=== PATIENT | female | born 1960 | race Caucasian/White ===

== ENCOUNTER 2023-05-30 20:23 | Outpatient (REF) | payer MEDICARE, SELFPAY ==
[2023-06-02 18:08] LABS: Age Gdln ACOG Testing Note (.); HPV Aptima Negative (Negative); IGP, Aptima HPV, rfx 16/18,45 Note (.)
== END 2023-05-30 20:24 | disposition home or self-care (01) ==
LOC: LAB 20:23
PROVIDERS: Visit Provider Obstetrics & Gynecology
DX: Z12.4 Encounter for screening for malignant neoplasm of cervix (principal)
CPT/HCPCS: 87070; G0145

== ENCOUNTER 2023-06-29 07:29 | Day surgery (SDC) | payer MEDICARE, SELFPAY ==
--- NOTE | 2023-06-29 07:40 | US_ITS ---
[address] [address] Patient Name: MICKEY RODRIGUEZ MRN: [id number] date: 1960 Sex: F Assigned Patient Location: US Current Patient Location: US Accession/Order Number: [id number] Exam Date: 06/29/2023 08:00 Report Date: 06/29/2023 08:57 At the request of: EBONY BRAUN Procedure: US breast vac bx w/ clip LT EXAM: US breast vac bx w/ clip LT HISTORY: Left Breast Complex Cyst COMPARISON: Ultrasound breast left 04/04/2023 TECHNIQUE: After obtaining informed consent, ultrasound-guided biopsy was performed in the usual sterile manner. The location of the biopsy was then marked as indicated below. FINDINGS: Specimen #, Location: 3 core samples; 6:00 5 x 5 x 4 mm complex cyst versus mass. Biopsy Needle: 13 gauge vacuum core biopsy needle. Marker(s): A single metallic marker was placed in the appropriate targeted location. Medication: Buffered 1% Lidocaine with epinephrine administered locally. Complications: None. Pathology: Pending. US/US breast vac bx w/ clip LT IMPRESSION: 1. Uneventful ultrasound-guided breast biopsy. 2. Pathology results are pending. An addendum to this report will be provided after pathology results are available. Electronically authenticated by: MARCIANO ENG Date: 06/29/2023 08:57
--- NOTE | 2023-06-29 07:41 | MM_ITS ---
Patient: MICKEY RODRIGUEZ Exam Date: 06/29/2023 : 1960 Gender:F Ordering : DR Roshan Chaney . Admission #: [id number] Family : Non-Staff Physician Order #: [id number] CLICK HERE TO VIEW EXAM This report includes an Addendum and supersedes previous reports for this exam. RADIOLOGY REPORT PROCEDURE: MM POST BIOPSY LT COMPARISON: MM TOMOSYNTHESIS DIAGNOSTIC BI, 04/04/2023. INDICATIONS: Complex Left Breast Cyst BREAST COMPOSITION: Scattered areas fibroglandular density. FINDINGS: BIOPSY MARKER: A metallic marker has been placed in the targeted location at the 6 o'clock position of the left breast. BREAST FINDINGS: Expected post biopsy findings. RECOMMENDATIONS: Dictated by: Gamal Landeros M.D. on 06/29/2023 at 13:44 Approved by: Gamal Landeros M.D. on 06/29/2023 at 13:46 ADDENDUM: FINDINGS: NO ASSESSMENT RECOMMENDATIONS: SHORT TERM FOLLOW-UP ULTRASOUND LEFT BREAST IN 6 MONTHS. Dictated by: Gamal Landeros M.D. on 07/12/2023 at 10:25 Approved by: Gamal Landeros M.D. on 07/12/2023 at 10:26
[2023-06-29 07:45] VITALS: BP 166/124; PULSE 89; O2SAT 94
[2023-06-29] MEDS: LIDOCAINE HCL/EPINEPHRINE 10 ML, SODIUM BICARBONATE 1 MEQ INJ (08:25)
[2023-06-29] MEDS: LIDOCAINE HCL 10 ML, SODIUM BICARBONATE 1 MEQ INJ (08:25)
== END 2023-06-29 09:10 | disposition home or self-care (01) ==
LOC: US 07:31
PROVIDERS: Radiology Diagnostic Radiology; Visit Provider Surgery
DX: N60.02 Solitary cyst of left breast (principal); N64.52 Nipple discharge
CPT/HCPCS: 19083; 77065; 88305

== ENCOUNTER 2023-09-05 11:00 | Outpatient (OUT) | payer MEDICARE, SELFPAY ==
--- OUTSIDE RECORDS SUMMARY | 2023-09-05 11:08 | XMS_ITS | CCD ---
Author Name Unknown Address [address] [place] [address] Organization [facility] Care Team Providers Care Senior Wind Turbine Technician Name Role Phone DR ESTELA KRISHNAN Attending Unavailable EULOGIO, DR ESTELA Jonas Consulting Unavailable EULOGIO, DR ESTELA Jonas Primary Care Unavailable EULOGIO, DR ESTELA Jonas Admitting Unavailable Michael Holley Primary Care Physician [phone] ESTELA KRISHNAN Attending Unavailable Michael Holley Attending Unavailable Michael Holley Attending Unavailable Michael Holley Attending Unavailable Michael Holley Attending Unavailable Michael Holley Attending Unavailable Michael Holley Admitting Unavailable Michael Holley Attending Unavailable Michael Holley Referring Unavailable Michael Holley Attending Unavailable Michael Holley Admitting Unavailable Roshan BRAUN Attending Unavailable Roshan BRAUN Attending Unavailable Roshan BRAUN Attending Unavailable Michael Holley Attending Unavailable Michael Holley Attending Unavailable Allergies Allergy Classification Reported Allergen(s) Allergy Type Date of Onset Reaction(s) Facility (1 source) Hydrocortisone Drug Allergy 01-02-20 17 [facility] (1 source) methylPREDNISolone Drug Allergy 12-26-19 17 [facility] (1 source) prednisoLONE Drug Allergy 01-02-20 17 [facility] (1 source) predniSONE Drug Allergy 01-02-20 17 [facility] (1 source) Decon-A Drug allergy (disorder) 01-02-20 17 [facility] (1 source) Decon-G Drug allergy (disorder) 01-02-20 17 [facility] (4 sources) metaxalone; Translations: [metaxalone] Drug Allergy Unknown (qualifier value) [facility] (4 sources) Pseudoephedrine; Translations: [pseudoephedrine] Drug Allergy Unknown (qualifier value) [facility] (3 sources) Corticosteroids; Translations: [corticosteroids] Propensity to adverse reactions to drug Anaphylaxis (disorder) General Surgery [facility] Medications Current Medications Medication Drug Class(es) Dates Sig (Normalized) Sig (Original) ALPRAZolam 0.25 mg oral tablet (3 sources) Benzodiazepine Start: 07-21-2023 take 1 tablet by mouth three times daily alprazolam 0.25 mg Tab 0.25 mg = 1 tab(s), Oral, TID, # 90 tab(s), Refills(s) 0, Pharmacy: [facility], 170.2, cm, 06/20/23 14:35:00 EDT, Height/Length Dosing, 71, kg, 06/20/23 14:35:00 EDT, Weight Dosing Start Date: 07/21/23 Status: Ordered Start: 04-20-2023 take 1 tablet by radha th three times daily alprazolam 0.25 mg Tab 0.25 mg = 1 tab(s), Oral, TID, # 90 tab(s), Refills(s) 2, Pharmacy: [facility], 170.2, cm, 04/20/23 15:23:00 EDT, Height/Length Dosing, 70.6, kg, 04/20/23 15:23:00 EDT, Weight Dosing Start Date: 04/20/23 Status: Ordered Start: 03-23-2023 take 1 tablet by radha th three times daily alprazolam 0.25 mg Tab 0.25 mg = 1 tab(s), Oral, TID, # 90 tab(s), Refills(s) 0, Pharmacy: [facility], 170.2, cm, 03/21/23 14:25:00 EDT, Height/Length Dosing, 71.5, kg, 03/21/23 14:25:00 EDT, Weight Dosing Start Date: 03/23/23 Status: Ordered cyclobenzaprine hydrochloride 10 mg oral tablet (3 sources) Muscle Relaxant Start: 07-24-2023 take 1 tablet by mouth at bedtime as needed for muscle spasms cyclobenzaprine 10 mg Tab 10 mg = 1 tab(s), Oral, Bedtime, PRN for spasm, # 90 tab(s), Refills(s) 3, Pharmacy: [facility], 170.2, cm, 07/24/23 13:54:00 EST, Height/Length Dosing, 70.1, kg, 07/24/23 13:54:00 EST, Weight Dosing Start Date: 07/24/23 Status: Ordered Start: 01-10-2023 take 1 tablet by radha th at bedtime as needed for muscle spasms cyclobenzaprine 10 mg Tab 10 mg = 1 tab(s), Oral, Bedtime, PRN for spasm, # 90 tab(s), Refills(s) 3, Pharmacy: [facility] Start Date: 01/10/23 Status: Ordered fluconazole 150 mg oral tablet (1 source) Azole Antifungal Start: 08-09-2023 take 1 tablet by mouth once Diflucan 150 mg Tab 150 mg = 1 tab(s), Oral, Once, # 1 tab(s), Refills(s) 0, Pharmacy: [facility], 170.2, cm, 08/09/23 15:59:00 EST, Height/Length Dosing, 69.3, kg, 08/09/23 15:59:00 EST, Weight Dosing Start Date: 08/09/23 Status: Ordered gabapentin 300 mg oral capsule (3 sources) Anti-epileptic Agent Start: 03-23-2023 take 1 capsule by mouth twice daily gabapentin 300 mg Cap 300 mg = 1 cap(s), Oral, BID, # 180 cap(s), Refills(s) 3, Pharmacy: [facility], 170.2, cm, 03/21/23 14:25:00 EDT, Height/Length Dosing, 71.5, kg, 03/21/23 14:25:00 EDT, Weight Dosing Start Date: 03/23/23 Status: Ordered Problems Active Problems Problem Classification Problem Date Documented Date Episodic/Chronic Anxiety disorders (3 sources) Generalized anxiety disorder 03-21-2023 Chronic Attention-deficit, conduct, and disruptive behavior disorders (3 sources) Attention deficit hyperactivity disorder 11-08-2022 Chronic Genitourinary symptoms and ill-defined conditions (1 source) Dysuria 08-09-2023 Episodic Nonmalignant breast conditions (8 sources) Breast lump; Translations: [Discharge from nipple] Onset: 08-09-2023 03-21-2023 Episodic Other acquired deformities (3 sources) Scoliosis deformity of spine 03-21-2023 Chronic Other connective tissue disease (3 sources) H/O: osteoarthritis 11-08-2022 Episodic Other hereditary and degenerative nervous system conditions (3 sources) Essential tremor 11-08-2022 Chronic Other nervous system disorders (5 sources) Complex regional pain syndrome of lower limb 11-08-2022 Chronic Other nervous system disorders (5 sources) Polyneuropathy 11-08-2022 Chronic Unclassified (2 sources) CONTACT W/AND (SUSP) EXPOS COVID-19; Translations: [CONTACT W/AND (SUSP) EXPOS COVID-19] Onset: 09-07-2021 Unclassified (2 sources) Long-term current use of drug therapy 11-08-2022 Unclassified (2 sources) Body mass index 20-24 - normal 06-20-2023 Viral infection (1 source) COVID-19; Translations: [COVID-19] Onset: 09-07-2021 Past or Other Problems Problem Classification Problem Date Documented Da te Episodic/Chronic Unclassified (1 source) CONTACT W/AND (SUSP) EXPOS COVID-19; Translations: [CONTACT W/AND (SUSP) EXPOS COVID-19] Onset: 08-31-2021 Results Test Name Value Interpretation Reference Range Facil ity C Urineon 08-11-2023 Bacteria identified Cx Nom (U) Microbiology PROCEDURE: Urine Culture [R1] SOURCE: U CleanCatch BODY SITE: COLLECTED DATE/TIME: 08/09/2023 16:21 EST RECEIVED DATE/TIME: 08/09/2023 19:37 EST START DATE/TIME: 08/09/2023 19:37 EST FREE TEXT SOURCE: Kishan PRATT, Michael Holley MD, Michael Barker FINAL REPORTS Final Report [] Verified Date/Time: 08/11/2023 09:17 EST 2,000 cfu/ml Mixed skin contaminants Performing Locations R1: This test was performed at: [facility], [address] [place] [address], [id number] , , [facility] Comment on above: Performed By: #### [id number] ####[facility] [address] [place] [address] Consent for Procedure/Surger yon 08-11-2023 Consent for Procedure/Surgery [id number] [facility] Ambulatory Visit Summaryon 1 10-10-2022 Ambulatory Visit Summary ADELINA MIR :1960 Visit Date:08/09/2023 Ambulatory Visit Instructions Your Diagnosis Dysuria Blood pressure elevated without history of HTN BMI 23.0-23.9, adult Former smoker Tests Performed Urnls Dip Stick Auto w/o Microscopy POC 89575 Your Care Team Attending Physician - Michael Holley MD Primary Care Physician - Michael Holley MD This Is Your Medications List fluconazole (Diflucan 150 mg Tab) Contact prescribing physician if questions or concerns alprazolam (alprazolam 0.25 mg Tab) cyclobenzaprine (cyclobenzaprine 10 mg Tab) gabapentin (gabapentin 300 mg Cap) Procedures Performed Biopsy of breast (06/27/2023), Arthroscopy of knee (06/04/1995), Appendectomy, Cholecystectomy, Extraction of wisdom tooth, Foot, Simple dental extraction, DEAN BSO - Total abdominal hysterectomy and bilateral salpingo-oophorecto my, Tonsillectomy and adenoidectomy. Discharge Vitals Temperature (Temporal Artery) 37.2 ?C Heart Rate (Peripheral) 76 Respiratory Rate 16 Blood Pressure 122/74 Height 170.2 cm Height 67 in Weight 69.3 kg Weight 152.46 lb BMI 23.92 What to do next Scheduled Follow-Up Appointments Monday 1:00 PM EST With: Michael Holley MD Where: [facility] [place] [facility] Ambulatory Visit Summary ADELINA MIR :1960 Visit Date:08/09/2023 Ambulatory Visit Instructions Your Care Team Attending Physician - APARNA PRATT, Roshan Horner Primary Care Physician - Michael Holley MD This Is Your Medications List Contact prescribing physician if questions or concerns alprazolam (alprazolam 0.25 mg Tab) cyclobenzaprine (cyclobenzaprine 10 mg Tab) gabapentin (gabapentin 300 mg Cap) Procedures Performed Biopsy of breast (06/27/2023), Arthroscopy of knee (06/04/1995), Appendectomy, Cholecystectomy, Extraction of wisdom tooth, Foot, Simple dental extraction, DEAN BSO - Total abdominal hysterectomy and bilateral salpingo-oophorecto my, Tonsillectomy and adenoidectomy. Discharge Vitals Heart Rate (Peripheral) 72 Respiratory Rate 16 Blood Pressure 120/76 Height 170.2 cm Height 67 in Weight 69.7 kg Weight 153.34 lb BMI 24.06 What to do next Scheduled Follow-Up Appointments Monday 4:00 PM EST With: Kishan PRATT, Michael Barker Where: [facility] [place] [id number] \.br\ Medications\.br\ What How Much When Instructions\.br\ Unchanged alprazolam (alprazolam 0.25 mg Tab) 1 Tablets By Mouth 3 times a day Contact prescribing physician if questions or concerns \.br\ Unchanged cyclobenzaprine (cyclobenzaprine 10 mg Tab) 1 Tablets By Mouth At bedtime as needed for for spasm Contact prescribing physician if questions or concerns \.br\ Unchanged gabapentin (gabapentin 300 mg Cap) 1 Capsules By Mouth 2 times a day Contact prescribing physician if questions or concerns \.br\ Medications and Immunizations Administered\.br\ Not Given\.br\ influenza virus vaccine, inactivated, Patient Refuses\.br\ Allergies\.br\ Entex (Unknown)\.br\ Skelaxin (Unknown)\.br\ corticosteroids (Anaphylaxis)\.br\ Problems\.br\ Ongoing - Any problem that you are currently receiving treatment for.\.br\ ADHD\.br\ Blood pressure elevated without history of HTN\.br\ BMI 24.0-24.9, adult\.br\ Complex regional pain syndrome of lower limb\.br\ Essential tremor\.br\ Generalized anxiety disorder\.br\ Hx of osteoarthritis\.br \ Idiopathic polyneuropathy\.br \ Mass of left breast\.br\ Nipple discharge\.br\ Scoliosis\.br\ Historical - Any problem that you are no longer receiving treatment for.\.br\ Polyneuropathy\.br \ RSD lower limb\.br\ Patient Survey\.br\ You may receive a survey via text or e-mail asking about your office visit. Please share your experience with us by completing your survey. We appreciate your feedback and thank you for choosing us for your care.\.br\ \.br\ [facility] Family Medicine Office/Clini c Noteon 08-09-2023 Family Medicine Office/Clinic Note HPI Staff Adelina is a 62 year old female presenting for UTI symptoms Dysuria: Onset: couple weeks Symptoms: back pain, discomfort with urinating doesn't feel she's emptying OTC used: aspirin Last UTI: 15 years or more Hx of kidney stones: no UA in office documented in chart flu: refused for the season History of Present Illness - Here for dysuria Review of Systems PHQ Score Initial Depression Screen Score: 0 SCORE Physical Exam Vitals & Measurements T: 37.2 ?C(Temporal Artery) HR: 76(Peripheral) RR: 16 BP: 122/74 SpO2: 99% HT: 67 in HT: 170.2 cm WT: 69.3 kg WT: 152.46 lb BMI: 23.92 General: alert, no acute distress ENMT: oral mucosa moist, Cardiovascular: regular rate and rhythm, normal peripheral perfusion Respiratory: Lungs CTA, respirations non labored Extremities: no deformity, no trauma Neurological: oriented x 4, LOC appropriate for age, CN II-XII intact, motor strength equal & normal bilaterally, speech normal Abdomen: Soft, Nontender, Non-distended, + BS Assessment/Plan 1. Dysuria (R30.0: Dysuria) - Given the blood in the urine, Ketone and Protien, I am wondering if this is a Kidney Stone and not a UTI. DDX is UTI and Fungal. Pt states she feels more irritated than burning. Because of this we will use Diflucan and gave precautions for Stones. If no improvement, Abx will be called or futher work up will be done. Will go ahead and send in Culture to be on the safe side. Ordered: Urnls Dip Stick Auto w/o Microscopy POC 44424 2. Blood pressure elevated without history of HTN (R03.0: Elevated blood-pressure reading, without diagnosis of hypertension) - Resolved 3. BMI 23.0-23.9, adult (Z68.23: Body mass index [BMI] 23.0-23.9, adult) - BMI education uploaded. 4. Former smoker (Z87.891: Personal history of nicotine dependence) - Please continue to not smoke. Ordered: Urnls Dip Stick Auto w/o Microscopy POC 23963 Orders: fluconazole, 150 mg = 1 tab(s), Oral, Once, # 1 tab(s), Refills(s) 0, Pharmacy: [facility], 170.2, cm, 08/09/23 15:59:00 EST, Height/Length Dosing, 69.3, kg, 08/09/23 15:59:00 EST, Weight Dosing Follow-up No qualifying data available Patient Education BMI for Adults Problem List/Past Medical History Ongoing ADHD BMI 24.0-24.9, adult Complex regional pain syndrome of lower limb Dysuria Essential tremor Generalized anxiety disorder Hx of osteoarthritis Idiopathic polyneuropathy Mass of left breast Nipple discharge Scoliosis Historical Polyneuropathy RSD lower limb Procedure/Surgical History Biopsy of breast (06/27/2023), Arthroscopy of knee (06/04/1995), Appendectomy, Cholecystectomy, Extraction of wisdom tooth, Foot, Simple dental extraction, DEAN BSO - Total abdominal hysterectomy and bilateral salpingo-oophorecto my, Tonsillectomy and adenoidectomy. Medications alprazolam 0.25 mg Tab, 0.25 mg= 1 tab(s), Oral, TID cyclobenzaprine 10 mg Tab, 10 mg= 1 tab(s), Oral, Bedtime, PRN, 3 refills Diflucan 150 mg Tab, 150 mg= 1 tab(s), Oral, Once gabapentin 300 mg Cap, 300 mg= 1 cap(s), Oral, BID, 3 refills Allergies Entex (Unknown) Skelaxin (Unknown) corticosteroids (Anaphylaxis) Social History Alcohol - Denies Alcohol Use, 06/20/2023 Alcohol use interferes with work or home: No., 11/08/2022 Substance Abuse Current, Marijuana, Daily, 06/20/2023 Tobacco Former smoker, quit more than 30 days ago Tobacco Use:. Never Smokeless Tobacco Use:. Cigarettes, Household tobacco concerns: No., 08/09/2023 Family History Primary malignant neoplasm of lung: Mother. Immunizations Vaccine Date Status Comments influenza virus vaccine, inactivated - Not Given Patient Refuses influenza virus vaccine, inactivated - Not Given Patient Refuses SARS-CoV-2 mRNA (tozinameran 5y-11y) vac - Not Given Postpone due to refusal Lab Results Ambulatory Point of Care Results Bilirubin Urine Dipstick: Negative (08/09/23 16:03:00) Blood Urine Dipstick: Trace-intact (08/09/23 16:03:00) Glucose Urine Dipstick: Negative (08/09/23 16:03:00) Ketones Urine Dipstick: Trace - 5 mg/dl (08/09/23 16:03:00) Leukocytes Urine Dipstick: Negative (08/09/23 16:03:00) Nitrite Urine Dipstick: Negative (08/09/23 16:03:00) Protein Urine Dipstick: 2+ (100 mg/dl) (08/09/23 16:03:00) Specific Parmele Urine Dipstick: 1.020 (08/09/23 16:03:00) Urine Appearance Urine Dipstick: Slightly cloudy (08/09/23 16:03:00) Urine Color Urine Dipstick: Yellow (08/09/23 16:03:00) Urobilinogen Urine Dipstick: Normal 0.2-1 EU/dl (08/09/23 16:03:00) pH Urine Dipstick: 6 (08/09/23 16:03:00) Normal [facility] Comment on above: Result Comment: Elec tronically Signed By: Kishan PRATT, Michael Ball.oh\Date and Time Signed: 08/09/23 16:05 EST General Surgery Office/Clini c Noteon 08-09-2023 General Surgery Office/Clinic Note Chief Complaint f/u nipple discharge HPI Staff Presents to follow up intermittent spontaneous left nipple discharge. History of Present Illness still with intermittent spontaneous left nipple discharge from same duct; no pain; s/p US-guided core biopsy 1 month ago, nondiagnostic; no skin changes. Review of Systems PHQ Score Initial Depression Screen Score: 0 SCORE Physical Exam Vitals & Measurements HR: 72(Peripheral) RR: 16 BP: 120/76 HT: 67 in HT: 170.2 cm WT: 69.7 kg WT: 153.34 lb BMI: 24.06 HEENT: normal conjunctiva, sclera clear, no scleral icterus, EOM intact, PERRLA. oral mucosa moist without lesions Neck: trachea midline , no mass, symmetric, no thyromegaly or nodules. no adenopathy Respiratory: lungs CTA, respirations non labored. Cardiovascular: regular rate and rhythm, no murmur, , no pedal edema or varicosities. Chest (Breasts): left breast with cloudy discharge from inferior aspect of nipple; 5 mm nodule at 5 o'clock position, nipple drainage when nodule compressed; nontender, no skin changes; right breast without mass, no skin or nipple changes. Gastrointestinal: soft, non distended, no tenderness, no masses, no palpable hernias, diastasis recti no, no hepatosplenomegaly. normal bs Lymphatic: no cervical adenopathy, no axillary adenopathy, no supraclavicular adenopathy Musculoskeletal: normal gait, digits and nails without infection, nodes, cyanosis, clubbing. Skin: no rashes, no lesions, no ulcers, no subcutaneous nodules, induration. Psychiatric/Neuro: oriented to time, place, person, judgement normal, affect appropriate for age, insight intact, no focal deficits. Tests: review of old records completed , Discussed surgical options, risks, and possible complications with patient. Assessment/Plan 1. Mass of left breast (N63.23: Unspecified lump in the left breast, lower outer quadrant) plan left breast ductal excision/excision mass/granuloma under anesthesia; informed consent obtained. Ancef 2 gms IV prior to OR 2. Nipple discharge (N64.52: Nipple discharge) see # 1 Follow-up No qualifying data available Problem List/Past Medical History Ongoing ADHD Blood pressure elevated without history of HTN BMI 24.0-24.9, adult Complex regional pain syndrome of lower limb Essential tremor Generalized anxiety disorder Hx of osteoarthritis Idiopathic polyneuropathy Mass of left breast Nipple discharge Scoliosis Historical Polyneuropathy RSD lower limb Procedure/Surgical History Biopsy of breast (06/27/2023), Arthroscopy of knee (06/04/1995), Appendectomy, Cholecystectomy, Extraction of wisdom tooth, Foot, Simple dental extraction, DEAN BSO - Total abdominal hysterectomy and bilateral salpingo-oophorecto my, Tonsillectomy and adenoidectomy. Medications alprazolam 0.25 mg Tab, 0.25 mg= 1 tab(s), Oral, TID cyclobenzaprine 10 mg Tab, 10 mg= 1 tab(s), Oral, Bedtime, PRN, 3 refills gabapentin 300 mg Cap, 300 mg= 1 cap(s), Oral, BID, 3 refills Allergies Entex (Unknown) Skelaxin (Unknown) corticosteroids (Anaphylaxis) Social History Alcohol - Denies Alcohol Use, 06/20/2023 Alcohol use interferes with work or home: No., 11/08/2022 Substance Abuse Current, Marijuana, Daily, 06/20/2023 Tobacco Former smoker, quit more than 30 days ago Tobacco Use:. Never Smokeless Tobacco Use:. Cigarettes, Household tobacco concerns: No., 07/24/2023 Family History Primary malignant neoplasm of lung: Mother. Immunizations Vaccine Date Status Comments influenza virus vaccine, inactivated - Not Given Patient Refuses SARS-CoV-2 mRNA (toantonioeran 5y-11y) vac - Not Given Postpone due to refusal [facility] Comment on above: Result Comment: Elec tronically Signed By: APARNA PRATT, Roshan Koch.oh\Date and Time Signed: 08/09/23 15:03 EST Patient Educationon 08-09-20 Patient Education Nutrition BMI for Adults What is BMI? Body mass index (BMI) is a number that is calculated from a person's weight and height. BMI can help estimate how much of a person's weight is composed of fat. BMI does not measure body fat directly. Rather, it is an alternative to procedures that directly measure body fat, which can be difficult and expensive. BMI can help identify people who may be at higher risk for certain medical problems. What are BMI measurements used for? BMI is used as a screening tool to identify possible weight problems. It helps determine whether a person is obese, overweight, a healthy weight, or underweight. BMI is useful for: ? Identifying a weight problem that may be related to a medical condition or may increase the risk for medical problems. ? Promoting changes, such as changes in diet and exercise, to help reach a healthy weight. BMI screening can be repeated to see if these changes are working. How is BMI calculated? BMI involves measuring your weight in relation to your height. Both height and weight are measured, and the BMI is calculated from those numbers. This can be done either in [place] or metric measurements. Note that charts and online BMI calculators are available to help you find your BMI quickly and easily without having to do these calculations yourself. To calculate your BMI in [place] measurements: 1. Measure your weight in pounds (lb). 2. Multiply the number of pounds by 703. ? For example, for a person who weighs 180 lb, multiply that number by 703, which equals 126,540. 3. Measure your height in inches. Then multiply that number by itself to get a measurement called inches squared. ? For example, for a person who is 70 inches tall, the inches squared measurement is 70 inches x 70 inches, which equals 4,900 inches squared. 4. Divide the total from step 2 (number of lb x 703) by the total from step 3 (inches squared): 126,540 ? 4,900 = 25.8. This is your BMI. To calculate your BMI in metric measurements: 1. Measure your weight in kilograms (kg). 2. Measure your height in meters (m). Then multiply that number by itself to get a measurement called meters squared. ? For example, for a person who is 1.75 m tall, the meters squared measurement is 1.75 m x 1.75 m, which is equal to 3.1 meters squared. 3. Divide the number of kilograms (your weight) by the meters squared number. In this example: 70 ? 3.1 = 22.6. This is your BMI. What do the results mean? BMI charts are used to identify whether you are underweight, normal weight, overweight, or obese. The following guidelines will be used: ? Underweight: BMI less than 18.5. ? Normal weight: BMI between 18.5 and 24.9. ? Overweight: BMI between 25 and 29.9. ? Obese: BMI of 30 or above. Keep these notes in mind: ? Weight includes both fat and muscle, so someone with a muscular build, such as an athlete, may have a BMI that is higher than 24.9. In cases like these, BMI is not an accurate measure of body fat. ? To determine if excess body fat is the cause of a BMI of 25 or higher, further assessments may need to be done by a health care provider. ? BMI is usually interpreted in the same way for men and women. Where to find more information For more information about BMI, including tools to quickly calculate your BMI, go to these websites: ? Centers for Disease Control and Prevention: www.cdc.gov ? [place] [employer]: www.heart.org ? National Heart, Lung, and Blood [place]: www.nhlbi.nih.gov Summary ? Body mass index (BMI) is a number that is calculated from a person's weight and height. ? BMI may help estimate how much of a person's weight is composed of fat. BMI can help identify those who may be at higher risk for certain medical problems. ? BMI can be measured using [place] measurements or metric measurements. ? BMI charts are used to identify whether you are underweight, normal weight, overweight, or obese. This information is not intended to replace advice given to you by your health care provider. Make sure you discuss any questions you have with your health care provider. Document Revised: 05/13/2020 Document Reviewed: 03/20/2020 [employer] Patient Education ? 2022 [employer]. [facility] Nurse Consultation Noteon Nurse Consultation Note Reason for Visit Here for BP check, elevated at [facility] but patient thinks it was due to her pain level was so much higher than normal that day. Today 130/86, has f/u scheduled end of Sep. Medications alprazolam 0.25 mg Tab, 0.25 mg= 1 tab(s), Oral, TID cyclobenzaprine 10 mg Tab, 10 mg= 1 tab(s), Oral, Bedtime, PRN, 3 refills gabapentin 300 mg Cap, 300 mg= 1 cap(s), Oral, BID, 3 refills Allergies Entex (Unknown) Skelaxin (Unknown) corticosteroids (Anaphylaxis) Immunizations Vaccine Date Status Comments SARS-CoV-2 mRNA (tozinameran 5y-11y) vac - Not Given Postpone due to refusal Normal [facility] Family Medicine Office/Clini c Noteon 07-24-2023 Family Medicine Office/Clinic Note HPI Staff Adelina is a 62 year old female presenting for 3 month follow up [facility] for mood Follow up for Mental Status: Medication adherence- Yes, takes medication as prescribed MEdication refill needed: _ Suicidal thoughts-Not at this time Most recent JOHN: 9 Takes the alprazolam for anxiety Med consent: UTD March 2023 ( due in Sep) Urine drug screen: due flu: refused questions/concerns: none History of Present Illness - See staff HPI. - Pt states she is not depressed. Review of Systems PHQ Score Initial Depression Screen Score: 0 SCORE Physical Exam Vitals & Measurements HR: 86(Peripheral) RR: 18 BP: 156/102 SpO2: 98% HT: 67 in HT: 170.2 cm WT: 70.1 kg WT: 154.22 lb BMI: 24.2 General: alert, no acute distress ENMT: oral mucosa moist, Cardiovascular: regular rate and rhythm, normal peripheral perfusion Respiratory: Lungs CTA, respirations non labored Extremities: no deformity, no trauma Neurological: oriented x 4, LOC appropriate for age, CN II-XII intact, motor strength equal & normal bilaterally, speech normal Abdomen: Soft, Nontender, Non-distended, + BS Assessment/Plan 1. Generalized anxiety disorder (F41.1: Generalized anxiety disorder) - Stable. - Does not need refills today. - Continue on meds as before 2. Nipple discharge (N64.52: Nipple discharge) - Following with Gen Surg - Still having discharge - NO new issues 3. 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 Blood pressure elevated without history of HTN (R03.0: Elevated blood-pressure reading, without diagnosis of hypertension) - Will recheck today. - If still elevated, we will recheck in 2 weeks. 5. BMI 24.0-24.9, adult (Z68.24: Body mass index [BMI] 24.0-24.9, adult) - BMI education given Orders: cyclobenzaprine, 10 mg = 1 tab(s), Oral, Bedtime, PRN for spasm, # 90 tab(s), Refills(s) 3, Pharmacy: [facility], 170.2, cm, 07/24/23 13:54:00 EST, Height/Length Dosing, 70.1, kg, 07/24/23 13:54:00 EST, Weight Dosing - UDS today. Follow up in 2 weeks or 10 weeks depending on BPs. Follow-up No qualifying data available Problem List/Past Medical History Ongoing ADHD Blood pressure elevated without history of HTN BMI 24.0-24.9, adult Complex regional pain syndrome of lower limb Essential tremor Generalized anxiety disorder Hx of osteoarthritis Idiopathic polyneuropathy Mass of left breast Nipple discharge Scoliosis Historical Polyneuropathy RSD lower limb Procedure/Surgical History Biopsy of breast (06/27/2023), Arthroscopy of knee (06/04/1995), Appendectomy, Cholecystectomy, Extraction of wisdom tooth, Foot, Simple dental extraction, DEAN BSO - Total abdominal hysterectomy and bilateral salpingo-oophorecto my, Tonsillectomy and adenoidectomy. Medications alprazolam 0.25 mg Tab, 0.25 mg= 1 tab(s), Oral, TID cyclobenzaprine 10 mg Tab, 10 mg= 1 tab(s), Oral, Bedtime, PRN, 3 refills gabapentin 300 mg Cap, 300 mg= 1 cap(s), Oral, BID, 3 refills Allergies Entex (Unknown) Skelaxin (Unknown) corticosteroids (Anaphylaxis) Social History Alcohol - Denies Alcohol Use, 06/20/2023 Alcohol use interferes with work or home: No., 11/08/2022 Substance Abuse Current, Marijuana, Daily, 06/20/2023 Tobacco Former smoker, quit more than 30 days ago Tobacco Use:. Never Smokeless Tobacco Use:. Cigarettes, Household tobacco concerns: No., 07/24/2023 Family History Primary malignant neoplasm of lung: Mother. Immunizations Vaccine Date Status Comments SARS-CoV-2 mRNA (tozinameran 5y-11y) vac - Not Given Postpone due to refusal [facility] Comment on above: Result Comment: Elec tronically Signed By: Kishan PRATT, Michael Ball.br\Date and Time Signed: 07/24/23 14:32 EST General Surgery Office/Clini c Noteon 07-13-2023 General Surgery Office/Clinic Note Chief Complaint breast biopsy follow up HPI Staff 13 day follow up post left breast biopsy. Reports minimal discomfort and bruising at biopsy site. Denies bleeding or drainage. Continues to experience spontaneous light brown nipple discharge. History of Present Illness patient s/p US guided left breast bx of 5 mm density left breast; doing well, mild bruising and tenderness, no drainage; pathology fibrovascular fatty tissue and vascular structures; no cyst noted; patient still with intermittent spontaneous left nipple discharge, decreased. Review of Systems ROS - Provider Constitutional: no fever, no sweats, no weight loss. Eyes: no glasses, no blurred vision, no visual loss. ENMT: no dentures, no hoarseness, no swallowing difficulties, no hearing loss, no ear infection(s), no nose bleeds. Cardiovascular: normal blood pressure, no chest pain, regular heartbeat, no heart murmur. Respiratory: no shortness of breath, no cough, no asthma, no wheezing. Gastrointestinal: no nausea, no vomiting, no diarrhea, no constipation, no blood in stool, no change in bowel habits, no abdominal pain, no hepatitis. Genitourinary: no kidney stones, no urine infection, no dysuria. Musculoskeletal: no pain, no weakness. Skin: no changing moles, no rash, no skin lumps. Neurologic: no seizures, no epilepsy, no headache. Psychiatric: no emotional or psychiatric problem. Heme/Lymph: no bleeding problems, no anemia, no blood clots, no transfusions. Allergy/Immunologic : no swollen lymph nodes/glands, no IV drug abuse. Other: Additional ROS info: Except as noted in the above Review of Systems and in the History of Present Illness, all other systems have been reviewed and are negative or noncontributory. Assessment/Plan 1. Mass of left breast (N63.23: Unspecified lump in the left breast, lower outer quadrant) no pathology on US-guided biopsy; still with intermittent spontaneous left breast discharge; f/u in 1 month for revaluation, once healed from biopsy; if persistent nipple discharge, may require ductal excision for definitive diagnosis and treatment. call sooner if problems/questions. 2. Nipple discharge (N64.52: Nipple discharge) see # 1 Follow-up No qualifying data available Problem List/Past Medical History Ongoing ADHD BMI 24.0-24.9, adult Complex regional pain syndrome of lower limb Essential tremor Generalized anxiety disorder Hx of osteoarthritis Idiopathic polyneuropathy [employer] current use of opiate analgesic Mass of left breast Nipple discharge Scoliosis Historical Polyneuropathy RSD lower limb Procedure/Surgical History Biopsy of breast (06/27/2023), Arthroscopy of knee (06/04/1995), Appendectomy, Cholecystectomy, Extraction of wisdom tooth, Foot, Simple dental extraction, DEAN BSO - Total abdominal hysterectomy and bilateral salpingo-oophorecto my, Tonsillectomy and adenoidectomy. Medications alprazolam 0.25 mg Tab, 0.25 mg= 1 tab(s), Oral, TID, 2 refills cyclobenzaprine 10 mg Tab, 10 mg= 1 tab(s), Oral, Bedtime, PRN, 3 refills gabapentin 300 mg Cap, 300 mg= 1 cap(s), Oral, BID, 3 refills Allergies Entex (Unknown) Skelaxin (Unknown) corticosteroids (Anaphylaxis) Social History Alcohol - Denies Alcohol Use, 06/20/2023 Alcohol use interferes with work or home: No., 11/08/2022 Substance Abuse Current, Marijuana, Daily, 06/20/2023 Tobacco Former smoker, quit more than 30 days ago Tobacco Use:. Never Smokeless Tobacco Use:. Cigarettes, 06/20/2023 Family History Primary malignant neoplasm of lung: Mother. Immunizations Vaccine Date Status Comments SARS-CoV-2 mRNA (tonelsonn 5y-11y) vac - Not Given Postpone due to refusal [facility] Comment on above: Result Comment: Elec tronically Signed By: APARNA PRATT, Roshan Horner\.br\Date and Time Signed: 07/13/23 16:04 EST Ambulatory Visit Summaryon 1 09-11-2022 Ambulatory Visit Summary ADELINA MIR :1960 Visit Date:07/12/2023 Ambulatory Visit Instructions Your Care Team Attending Physician - APARNA PRATT, Roshan Horner Primary Care Physician - Michael Holley MD This Is Your Medications List alprazolam (alprazolam 0.25 mg Tab) cyclobenzaprine (cyclobenzaprine 10 mg Tab) gabapentin (gabapentin 300 mg Cap) Procedures Performed Biopsy of breast (06/27/2023), Arthroscopy of knee (06/04/1995), Appendectomy, Cholecystectomy, Extraction of wisdom tooth, Foot, Simple dental extraction, DEAN BSO - Total abdominal hysterectomy and bilateral salpingo-oophorecto my, Tonsillectomy and adenoidectomy. What to do next Scheduled Follow-Up Appointments Monday 1:40 PM EST With: Kishan PRATT, Michael Barker Where: [facility] Normal [address], [address], [place] [address]- \.br\ Medications\.br\ What How Much When Instructions\.br\ Unchanged alprazolam (alprazolam 0.25 mg Tab) 1 Tablets By Mouth 3 times a day\.br\ Unchanged cyclobenzaprine (cyclobenzaprine 10 mg Tab) 1 Tablets By Mouth At bedtime as needed for for spasm\.br\ Unchanged gabapentin (gabapentin 300 mg Cap) 1 Capsules By Mouth 2 times a day\.br\ Allergies\.br\ Entex (Unknown)\.br\ Skelaxin (Unknown)\.br\ corticosteroids (Anaphylaxis)\.br\ Problems\.br\ Ongoing - Any problem that you are currently receiving treatment for.\.br\ ADHD\.br\ BMI 24.0-24.9, adult\.br\ Complex regional pain syndrome of lower limb\.br\ Essential tremor\.br\ Generalized anxiety disorder\.br\ Hx of osteoarthritis\.br \ Idiopathic polyneuropathy\.br \ [facility] current use of opiate analgesic\.br\ Mass of left breast\.br\ Nipple discharge\.br\ Scoliosis\.br\ Historical - Any problem that you are no longer receiving treatment for.\.br\ Polyneuropathy\.br \ RSD lower limb\.br\ Patient Survey\.br\ You may receive a survey via text or e-mail asking about your office visit. Please share your experience with us by completing your survey. We appreciate your feedback and thank you for choosing us for your care.\.br\ \.br\ [facility] RAD - Ultrasound Reporton RAD - Ultrasound Report [id number] B8#1.00TIFF Normal [facility] Pathology Noteon 07-06-2023 Pathology Note [id number] 74#1.00TIFF Normal [facility] Outside Mammographyon 2022 Outside Mammography [id number] 9#1.00TIFF [facility] RAD - Ultrasound Reporton RAD - Ultrasound Report [id number] D#1.00TIFF [facility] Facesheeton 06-21-2023 Facesheet [id number] 303#1.00TIFF [facility] Ambulatory Visit Summaryon 1 Ambulatory Visit Summary ADELINA MIR :1960 Visit Date:06/20/2023 Ambulatory Visit Instructions Your Care Team Attending Physician - APARNA PRATT, Roshan Horner Primary Care Physician - Kishan PRATT, Michael Barker This Is Your Medications List Contact prescribing physician if questions or concerns alprazolam (alprazolam 0.25 mg Tab) cyclobenzaprine (cyclobenzaprine 10 mg Tab) gabapentin (gabapentin 300 mg Cap) Procedures Performed Arthroscopy of knee (06/04/1995), Appendectomy, Cholecystectomy, Extraction of wisdom tooth, Foot, Simple dental extraction, DEAN BSO - Total abdominal hysterectomy and bilateral salpingo-oophorecto my, Tonsillectomy and adenoidectomy. Discharge Vitals Heart Rate (Peripheral) 72 Respiratory Rate 16 Blood Pressure 120/72 Height 170.2 cm Height 67 in Weight 71 kg Weight 156.2 lb BMI 24.51 What to do next Scheduled Follow-Up Appointments Monday 1:40 PM EST With: Kishan PRATT, Michael Barker Where: [facility] Lab Reportson 06-06-2023 Lab Reports [id number] 24#1.00CD:127 Normal [facility] Physician Referralon 023 Physician Referral [id number] 9F#1.00CD:127 [facility] Physician Referralon 023 Physician Referral [id number] 98#1.00CD:127 Normal [facility] Physician Referralon 023 Physician Referral [id number] 0#1.00CD:127 Normal [facility] Ambulatory Visit Summaryon 0 04-20-2023 Ambulatory Visit Summary ADELINA MIR :1960 Visit Date:04/20/2023 Ambulatory Visit Instructions Your Diagnosis Mass of left breast, unspecified quadrant Nipple discharge Generalized anxiety disorder Your Care Team Attending Physician - Michael Holley MD Primary Care Physician - Michael Holley MD This Is Your Medications List alprazolam (alprazolam 0.25 mg Tab) Contact prescribing physician if questions or concerns cyclobenzaprine (cyclobenzaprine 10 mg Tab) gabapentin (gabapentin 300 mg Cap) Procedures Performed Arthroscopy of knee (06/04/1995), Arthroscopy, Foot, DEAN BSO - Total abdominal hysterectomy and bilateral salpingo-oophorecto my. Discharge Vitals Temperature (Oral) 36.8 ?C Heart Rate (Peripheral) 94 Respiratory Rate 16 Blood Pressure 124/76 Height 170.2 cm Height 67 in Weight 70.6 kg Weight 155.32 lb BMI 24.37 What to do next Scheduled Follow-Up Appointments Monday 1:40 PM EST With: Michael Holley MD Where: [facility] Invalid Interpretation Code Nipple discharge [facility] Medicine Office/Clini c Noteon 04-20-2023 Family Medicine Office/Clinic Note Chief Complaint follow up mood HPI Staff Patient presents for one month follow up mood Acute: f/u mammogram, benign issues, dr to discuss with patient Follow up for Mental Status: Medication adherence- Yes, takes medication as prescribed MEdication refill needed: yes the xanax Suicidal thoughts-Not at this time Most recent JOHN: 4 Most recent PHQ: 0 questions/concerns: needs her xanax refilled History of Present Illness (04/04/2023 13:18 EDT MA Mamm Diag w/CAD if perf and 3D Manny) IMPRESSION: BIRADS 3 PROBABLY BENIGN, SHORT INTERVAL FOLLOW-UP.6 MONTH RECALL. DIAGNOSTIC LEFT MAMMOGRAM AND ULTRASOUND OF THE LEFT BREAST IN 6 MONTHS ARE RECOMMENDED. [1] NO issues today. Needs refills. Still having some nipple discharge. Comes and goes. Review of Systems PHQ Score Initial Depression Screen Score: 0 Physical Exam Vitals & Measurements T: 36.8 ?C(Oral) HR: 94(Peripheral) RR: 16 BP: 124/76 SpO2: 100% HT: 67 in HT: 170.2 cm WT: 70.6 kg WT: 155.32 lb BMI: 24.37 General: alert, no acute distress ENMT: oral mucosa moist, Cardiovascular: regular rate and rhythm, normal peripheral perfusion Respiratory: Lungs CTA, respirations non labored Extremities: no deformity, no trauma Neurological: oriented x 4, LOC appropriate for age, CN II-XII intact, motor strength equal & normal bilaterally, speech normal Abdomen: Soft, Nontender, Non-distended, + BS Assessment/Plan 1. Mass of left breast, unspecified quadrant (N63.20: Unspecified lump in the left breast, unspecified quadrant) - Will order repeat diagnostic mammo - Follow up with TECHNICAL SERVICES SPECIALIST Ordered: [facility] External Ambulatory Referral MA Mamm Diag w/CAD if perf and 3D Manny 2. Nipple discharge (N64.52: Nipple discharge) - As above Ordered: [facility] External Ambulatory Referral MA Mamm Diag w/CAD if perf and 3D Manny 3. Generalized anxiety disorder (F41.1: Generalized anxiety disorder) - Will refill xanax. Ordered: [facility] External Ambulatory Referral MA Mamm Diag w/CAD if perf and 3D Manny Orders: alprazolam, 0.25 mg = 1 tab(s), Oral, TID, # 90 tab(s), Refills(s) 2, Pharmacy: [facility], 170.2, cm, 04/20/23 15:23:00 EDT, Height/Length Dosing, 70.6, kg, 04/20/23 15:23:00 EDT, Weight Dosing Follow-up No qualifying data available Problem List/Past Medical History Ongoing ADHD Essential tremor Generalized anxiety disorder Hx of osteoarthritis Idiopathic polyneuropathy [employer] current use of opiate analgesic Mass of left breast Nipple discharge RSD lower limb Scoliosis Historical No qualifying data Procedure/Surgical History Arthroscopy of knee (06/04/1995), Arthroscopy, Foot, DEAN BSO - Total abdominal hysterectomy and bilateral salpingo-oophorecto my. Medications alprazolam 0.25 mg Tab, 0.25 mg= 1 tab(s), Oral, TID, 2 refills cyclobenzaprine 10 mg Tab, 10 mg= 1 tab(s), Oral, Bedtime, PRN, 3 refills gabapentin 300 mg Cap, 300 mg= 1 cap(s), Oral, BID, 3 refills Allergies Entex (Unknown) Skelaxin (Unknown) Social History Alcohol Alcohol use interferes with work or home: No., 11/08/2022 Substance Abuse Household substance abuse concerns: No., 11/08/2022 Tobacco Former smoker, quit more than 30 days ago Tobacco Use:. Never Smokeless Tobacco Use:. Cigarettes, 04/20/2023 Family History Family history is negative Immunizations Vaccine Date Status Comments SARS-CoV-2 mRNA (tozinameran 5y-11y) vac - Not Given Postpone due to refusal [1] MA Mamm Diag w/CAD if perf and 3D Manny; Corona Lieberman M.D. 04/04/2023 13:18 EDT Normal [facility] Comment on above: Result Comment: Elec tronically Signed By: Kishan PRATT, Michael Barker\.br\Date and Time Signed: 04/20/23 16:05 EDT MA Mamm Diag w/CAD if perf a nd 3D Bilon 04-05-2023 MA Mamm Diag w/CAD if perf and 3D Manny Exam Date/Time: 04/04/2023 13:18 EDT Reason for Exam: G60.9;Nipple discharge Report IMPRESSION: BIRADS 3 PROBABLY BENIGN, SHORT INTERVAL FOLLOW-UP.6 MONTH RECALL. DIAGNOSTIC LEFT MAMMOGRAM AND ULTRASOUND OF THE LEFT BREAST IN 6 MONTHS ARE RECOMMENDED. CLINICAL HISTORY: Nipple discharge, G60.9. COMPARISON: None. COMMENT: Routine and spot compression views and tomosynthesis views of both breasts were obtained. There are scattered areas of fibroglandular density. In the right breast laterally, at mid depth there is an approximately 1 cm diameter ovoid nodular density. Two metallic markers were placed on the skin surface of the left breast to indicate where the patient feels lumps. In proximity to the inferior skin marker, there is an approximately 0.8 cm diameter ovoid nodular density in the inferior right breast at mid depth. Also in the inferior left breast, but anterior to the described nodular density, there is a 6 mm nodular density. No mammographic finding is noted in proximity to the skin marker placed on the lateral left breast. No neoplastic calcifications are identified in either breast. This is a baseline exam. The examination was reviewed with Computer Aided Detection. An ultrasound was obtained at all clock face positions and in the central/ retroareolar region of the right breast. At 9:00, there is a cyst that measures 1 cm in greatest diameter. This is felt to correspond to the mammographic finding. The ultrasound examination of the right breast is otherwise unremarkable. An ultrasound was obtained at all clock face positions and in the central/ retroareolar region of the left breast. At 2:00, there is an ovoid anechoic structure, with greatest diameter of 0.7 cm, and faint acoustical enhancement. The appearance favors a cyst. At 5:00, there is a rounded anechoic structure, with acoustic enhancement, that measures 0.3 cm diameter, and is consistent with a cyst. At 6:00, there is a complex structure, with greatest diameter of 0.5 cm. Much of this is anechoic, but with some internal echogenicity, including internal septation-like structures. There is some acoustical enhancement. This is not a simple cyst, and follow-up is suggested. The ultrasound examination of the remainder of the left breast is unremarkable. Breast Density: No Mammography is very important to your health. The current [employer] and National [employer] guidelines recommends annual mammography beginning at age 40. This facility utilizes a reminder system to ensure all patients receive reminder notifications at the appropriate time based on the recommendations of this exam. Board Certified Radiologists. Accredited by the ACR and FDA. Report Ordering Provider: Michael Holley FINAL REPORT Dictated: 04/05/2023 12:56 pm Corona Lieberman M.D. Signed (Electronic Signature): 04/05/2023 12:56 pm Signed by: Corona Lieberman M.D. Transcribed by: ROSMERY Technologist: BERNICE Assessment: BI-RADS Category 3-Probably benign - short interval follow-up Recommendation: Follow-up at short interval Normal [facility] US Breast Unilateral Lt Comp leteon 04-05-2023 US Breast Unilateral Lt Complete Exam Date/Time: 04/04/2023 14:24 EDT Reason for Exam: R92.8 Report PLEASE REFER TO THE MAMMOGRAM REPORT. Ordering Provider: Michael Holley FINAL REPORT Dictated: 04/05/2023 1:16 pm Corona Lieberman M.D. Signed (Electronic Signature): 04/05/2023 1:16 pm Signed by: Corona Lieberman M.D. Transcribed by: ROSMERY Technologist: [facility] US Breast Unilateral Rt Comp leteon 04-05-2023 US Breast Unilateral Rt Complete Exam Date/Time: 04/04/2023 14:25 EDT Reason for Exam: R92.8 Report PLEASE REFER TO THE MAMMOGRAM REPORT. Ordering Provider: Michael Holley FINAL REPORT Dictated: 04/05/2023 1:17 pm Corona Lieberman M.D. Signed (Electronic Signature): 04/05/2023 1:17 pm Signed by: Corona Lieberman M.D. Transcribed by: ROSMERY Technologist: [facility] Consent for Treatmenton Consent for Treatment [id number] FF#1.00CD:127 [facility] Family Medicine Office/Clini c Noteon 03-23-2023 Family Medicine Office/Clinic Note Chief Complaint establish care refill xanax HPI Staff Adelina is a 62 year old female patient presenting to the office to establish care. 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 Establish Care: History:Anxiety, OA, ADHD Any previous diagnosis: History of seeing any specialist: When was your last doctors visit: 11/01/22 Last provider: Eulogio Any recent labs: none UDS done Jul 2022, med consent due Health Maintenance UTD: Colonoscopy: never, refuses Mammogram: over due feels she needs one Pelvic/Pap: hysterectomy covid: refused Follow up for Mental Status: Medication adherence- Yes, takes medication as prescribed MEdication refill needed: yes Suicidal thoughts-Not at this time Most recent JOHN: 9 Most recent PHQ: 0 Acute: Current issues/complaints: Patient does need a refill on Alprazolam. Found lump in her breast and it's leaking, needs a mammogram ordered History of Present Illness Adelina Mir is a 62-year-old female who presents today for an evaluation of left breast discharge. She has been experiencing discharge from her left breast for approximately 1 month. The discharge is darker in color. She felt a lump in her left breast approximately 1 week ago. She can hardly feel the lump unless it is in the right position. We will do a diagnostic mammogram at this time and if no concerns, we will start doing lab work to identify why the patient is having a nipple discharge. She had a hysterectomy years ago. She has a history of anxiety. She was prescribed Xanax by Dr. Krishnan approximately [address] Krishnan described her as control freaking when things do not go her way. She can not shut her mind down by it. She has been on disability since 17 years old for her feet and legs. She broke her feet many times as a child. 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 She spent approximately 3 years of her life on crutches. In 1998, Dr. Krishnan sent her to a tube splicer. She had corrective surgeries done. She has a bunion that has gotten swollen. She was told by her tube splicer that they have never seen anybody's feet that changes much as years. She walks up barefoot in snow or blocks of ice water. Her biggest concern is that she will get herself frostbite. She states that she has been to a bone specialist and neurologist. She takes Neurontin. She states that her neurologist wanted her to see a pain doctor. She thought OxyContin was a laundry detergent. She is now seeing Dr. Shepard who is a marijuana doctor in [place]. She states that they will not give her pain medication so she does not see how it will work. She does not do illegal or street drugs. Review of Systems PHQ Score Initial Depression Screen Score: 0 Physical Exam Vitals & Measurements T: 36.5 ?C(Temporal Artery) HR: 106(Peripheral) RR: 16 BP: 130/84 SpO2: 96% HT: 67 in HT: 170.18 cm WT: 71.5 kg WT: 157.3 lb BMI: 24.69 General: alert, no acute distress Cardiovascular: regular rate and rhythm, normal peripheral perfusion Respiratory: Lungs CTA, respirations non labored Extremities: no deformity, no trauma Neurological: oriented x 4, LOC appropriate for age, CN II-XII intact, motor strength equal & normal bilaterally, speech normal Breast: Breast exam done. Patient declined millinery copyist. There is a clear straw-colored discharge protruding from the left breast. There is a 0.5 cm nodule noted 2 fingerbreadths from the nipple at the 6 o'clock position. Assessment/Plan 1. Idiopathic polyneuropathy (G60.9: Hereditary and idiopathic neuropathy, unspecified) At this time, we are looking to see if the patient really has a marijuana card. If patient does have a marijuana card, we are reaching out to make sure that the controlled substance agreement is up to date and accurate. If this is not against [facility]'s policy, we will prescribe the gabapentin. We will move forward with that. 2. Generalized anxiety disorder (F41.1: Generalized anxiety disorder) Same as above. We are looking into the patient's medical marijuana card and to be able to prescribe Xanax for the patient. We will refill if possible. 3. Essential tremor (G25.0: Essential tremor) No tremor noted today. 4. Scoliosis, unspecified scoliosis type, unspecified spinal region (M41.9: Scoliosis, unspecified) Patient uses the marijuana for back pain and the gabapentin as well. Patient states that she is well controlled with these two. 5. BMI 24.0-24.9, adult (Z68.24: Body mass index [BMI] 24.0-24.9, adult) BMI education given. 6. Nipple discharge (N64.52: Nipple discharge) We will do a diagnostic mammogram at this time and if no concerns, we will start doing lab work to identify why the patient is having a nipple discharge. 7. Left breast lump (N63.20: Unspecified lump in the left breast, unspecified quadrant) We will do a diagnostic mammogram at this time and if no concerns, we will start doing lab work to identify why the patient is hav (more content not included)... Normal [facility] Comment on above: Result Comment: Elec tronically Signed By: Kishan PRATT, Michael Barker\.br\Date and Time Signed: 03/23/23 15:23 EDT\.br\Electronically Co-Signed By: Lucy Hines\.br\Date and Time Co-Signed: 03/21/23 17:14 EDT Patient Correspondenceon Patient Correspondence [id number] BC#[id number]:127 Normal [facility] Medication Consenton 023 Medication Consent [id number] F0#[id number]:127 Normal [facility] Patient Correspondenceon Patient Correspondence [id number] 8F#1.00CD:127 Normal [facility] Ambulatory Visit Summaryon 0 03-21-2023 Ambulatory Visit Summary ADELINA MIR :1960 Visit Date:03/21/2023 Ambulatory Visit Instructions Your Diagnosis Idiopathic polyneuropathy Generalized anxiety disorder Essential tremor Scoliosis, unspecified scoliosis type, unspecified spinal region BMI 24.0-24.9, adult Nipple discharge Left breast lump Your Care Team Attending Physician - Michael Holley MD Primary Care Physician - Michael Holley MD This Is Your Medications List alprazolam (alprazolam 0.25 mg Tab) cyclobenzaprine (cyclobenzaprine 10 mg Tab) gabapentin (gabapentin 300 mg Cap) Procedures Performed Arthroscopy of knee (06/04/1995), Arthroscopy, Foot, DEAN BSO - Total abdominal hysterectomy and bilateral salpingo-oophorecto my. Discharge Vitals Temperature (Temporal Artery) 36.5 ?C Heart Rate (Peripheral) 106 Respiratory Rate 16 Blood Pressure 130/84 Height 170.18 cm Height 67 in Weight 71.5 kg Weight 157.3 lb BMI 24.69 What to do next Scheduled Follow-Up Appointments 2022 3:20 PM EDT With: Michael Holley MD Where: [facility] Invalid Interpretation Code Generalized anxiety disorder [facility] Ambulatory Visit Summaryon 0 01-24-2023 Ambulatory Visit Summary ADELINA MIR :1960 Visit Date:01/24/2023 Ambulatory Visit Instructions Your Diagnosis Anxiety disorder Hx of osteoarthritis RSD lower limb Adult general medical exam Your Care Team Attending Physician - ESTELA KRISHNAN MD Primary Care Physician - ESTELA KRISHNAN MD This Is Your Medications List alprazolam (alprazolam 0.25 mg Tab) cyclobenzaprine (cyclobenzaprine 10 mg Tab) gabapentin (gabapentin 300 mg Cap) [Image Removed: STOP]Stop taking these medications clonidine (cloNIDine 0.2 mg Tab) Procedures Performed Arthroscopy of knee (06/04/1995), Arthroscopy, Foot, DEAN BSO - Total abdominal hysterectomy and bilateral salpingo-oophorecto my. Discharge Vitals Heart Rate (Peripheral) 95 Respiratory Rate 20 Blood Pressure 128/80 Height 170.18 cm Height 67 in Weight 73.5 kg Weight 161.7 lb BMI 25.38 Medications What How Much When Instructions Unchanged alprazolam (alprazolam 0.25 mg Tab) 1 Tablets By Mouth 3 times a day Unchanged cyclobenzaprine (cyclobenzaprine 10 mg Tab) 1 Tablets By Mouth At bedtime as needed for for spasm Unchanged gabapentin (gabapentin 300 mg Cap) 1 Capsules By Mouth 2 times a day What When Comments Stop Taking clonidine (cloNIDine 0.2 mg Tab) Medications and Immunizations Administered Not Given SARS-CoV-2 mRNA (tozinameran 5y-11y) vac, Postpone due to refusal Allergies Entex (Unknown) Skelaxin (Unknown) Problems Ongoing - Any problem that you are currently receiving treatment for. 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 RSD lower limb Scoliosis Normal [facility] Family Medicine Office/Clini c Noteon 01-24-2023 Family Medicine Office/Clinic Note Chief Complaint meds check refill xanax HPI Staff Med check for xanax Follow up for Mental Status: Medication adherence- Yes, takes medication as prescribed MEdication refill needed: yes Suicidal thoughts-Not at this time Most recent JOHN: Most recent PHQ: med consent: 04/27/22 due UDS: 07/27/22 JOHN-5 questions/concerns: wants a dermatology for mole on face and a spot on face after using self kay cream History of Present Illness OA OF THE SPINE WTILL WITH PAIN AND TROUBLE WALKING WITH THE PAIN ANXIETY DISORDER STILL NEEDS XANAX TO HELP WITH ADL;S SCOLIOSIS REFLEX SYMPATHETIC DYSTROPHY OF LE'S UNCHAN GED ADHD HALF-WAY USE OF BENZO'S, USE IS APPROPRIATE AND UNDERTAND ST HE RISKS AND BENEFITS. MEDICINE DOES [facility]PW [facility] OF ADULT DAILY LIVING. [facility]. Review of Systems PHQ Score Initial Depression Screen Score: 0 Constitutional: no fever, no chills, no sweats, no weakness Skin: no Jaundice, no rash, no lesions, nopetechiae ENMT: no ear pain, no sore throat, no congestion, no hoarseness Respiratory: no shortness of breath, no cough, no orthopnea, no wheezing Cardiovascular: no chest pain, no palpitations, no edema Gastrointestinal: no nausea, no vomiting, no diarrhea, no GI bleeding Genitourinary: no dysuria, no hematuria, no discharge, no pain Musculoskeletal: no back pain, no trauma Neurologic: no headache, no dizziness, no numbness, no weakness Psychiatric: no sleeping problems, no irritability, no mood swings/depression. Additional ROS info: Except as noted in the above Review of Systems and in the History of Present Illness all other systems have been reviewed and are negative or noncontributory. Physical Exam Vitals & Measurements HR: 95(Peripheral) RR: 20 BP: 128/80 SpO2: 100% HT: 67 in HT: 170.18 cm WT: 73.5 kg WT: 161.7 lb BMI: 25.38 General: alert, no acute distress Skin: warm, dry Head: no trauma, normocephalic Neck: Trachea midline, no adenopathy, no tenderness Eye: normal conjunctiva, sclera clear ENMT: TM's clear, oral mucosa moist, no pharyngeal erythema or exudate Cardiovascular: regular rate and rhythm, normal peripheral perfusion Respiratory: Lungs CTA, respirations non labored Chest wall: no deformity. Gastrointestinal: soft, non distended, no tenderness, no guarding. Back: No tenderness, Normal ROM, Normal alignment. Extremities: no deformity, no trauma DIFFICULTY WALKING, EVIDENCE OF DIFFUSE ARTHRITIS Neurological: oriented x 4, LOC appropriate for age, CN II-XII intact, unchanged with pain and neuropathy. ESSENTIAL TREMOR, NEUROPATHY, ABSENT REFLEXES IN LE'S Psychiatric: cooperative, affect appropriate for age, normal judgement, normal psychiatric thoughts. Assessment/Plan CONTUE PRESENT MEDS FOR ANXIETY, AND PATIENT DOING WELL. SIGNED MEDICATION AGREEMENT, WILL AMANDA DUE FOR REFILL NEXT WEEK TO CALL ON MONDAY. TOLERATING PAIN AND DOING WELL WITH THE GABAPENTIN. RTO PRN EXPLAINED RECHECK IN 3 MONTHS. 1. Anxiety disorder (F41.9: Anxiety disorder, unspecified) 2. Hx of osteoarthritis (Z87.39: Personal history of other diseases of the musculoskeletal system and connective tissue) 3. RSD lower limb (G90.529: Complex regional pain syndrome I of unspecified lower limb) Adult general medical exam (Z00.00: Encounter for general adult medical examination without abnormal findings) Ordered: CBC w/ Auto Diff Comprehensive Metabolic Panel Lipid Panel Thyroid Stimulating Hormone Orders: Body Mass Index (BMI) documented 3008F Current tobacco non-user 1036F Depression Screening Negative 3352F Influenza immunization status assessed 1030F Most recent diastolic blood pressure 80-89 mm Hg 3079F Patient screen for fall risk: no falls in last year or 1 fall with no injury in last year 1101F Systolic BP <130 mm Hg (Most Recent) 3074F Follow-up No qualifying data available Problem List/Past Medical History Ongoing Acute COVID-19 ADHD Anxiety disorder Essential tremor Hx of osteoarthritis Idiopathic polyneuropathy [facility] current use of opiate analgesic RSD lower limb Scoliosis Historical No qualifying data Procedure/Surgical History Arthroscopy of knee (06/04/1995), Arthroscopy, Foot, DEAN BSO - Total abdominal hysterectomy and bilateral salpingo-oophorecto my. Medications alprazolam 0.25 mg Tab, 0.25 mg= 1 tab(s), Oral, TID cyclobenzaprine 10 mg Tab, 10 mg= 1 tab(s), Oral, Bedtime, PRN, 3 refills gabapentin 300 mg Cap, 300 mg= 1 cap(s), Oral, BID, 3 refills Allergies Entex (Unknown) Skelaxin (Unknown) Social History Alcohol Alcohol use interferes with work or home: No., 11/08/2022 Substance Abuse Household substance abuse concerns: No., 11/08/2022 Tobacco Former smoker, quit more than 30 days ago Tobacco Use:. Never Smokeless Tobacco Use:. Cigarettes, 01/24/2023 Family History Family history is negative Immunizations Vaccine Date Status Comm (more content not included)... Normal [facility] Comment on above: Result Comment: Elec tronically Signed By: EULOGIO PRATT, ESTELA Jonas\tony\Date and Time Signed: 01/24/23 14:30 EDT Medication Consenton 023 Medication Consent [id number] A3#1.00CD:127 Normal [facility] Covid-19 PCR (CVDTB)on 08-05 SARS-CoV-2 (COVID-19) RNA LUDIN+probe Ql (Unsp spec) Detected Critically abnormal NOT DETECTED [facility] Comment on above: Result Comment: This test is not yet approved or cleared by the [place] FDA. When there are no FDA-approved or cleared tests available, and other criteria are met, FDA can make tests available under an emergency access mechanism called an Emergency Use Authorization (EUA). The EUA for this test is supported by the Health Information Systems Technician of Health and Human Service's (HHS's) declaration that circumstances exist to justify the emergency use of in vitro diagnostics for the detection and/or diagnosis of the virus that causes COVID-19. This EUA will remain in effect (meaning this test can be used) for the duration of the COVID-19 declaration justifying emergency of IVDs, unless it is terminated or revoked by FDA (after which the test may no longer be used). Performed By: #### [facility] #### [facility] [address] [place] [address] Dr. Anderson Packer Vital Signs Date Time Vital Sign Value Performing Clinician Carine rivera 08-09-2023 13:19-0500 Blood Pressure Location Roshan BRAUN [facility] 08-09-2023 13:19-0500 Diastolic blood pressure 76 mm[Hg] Roshan BRAUN [facility] 08-09-2023 13:19-0500 Heart rate 72 /min Roshan BRAUN [facility] 08-09-2023 13:19-0500 Respiratory rate 16 /min Roshan BRAUN [facility] 08-09-2023 13:190500 Systolic blood pressure 120 mm[Hg] Roshan NILL [facility] Encounters Encounter Date Encounter Type Care Provider Facility Start: 08-09-2023 End: 08-10-2023 ambulatory Michael Holley Facility:[facility] Start: 08-09-2023 End: 08-10-2023 ambulatory [facility]ILL [facility] Start: 08-09-2023 End: 08-09-2023 Patient encounter procedure Roshan R NILL [facility] Start: 08-07-2023 End: 08-08-2023 ambulatory [facility] Start: 07-24-2023 End: 07-25-2023 ambulatory [facility] Start: 07-12-2023 End: 07-13-2023 ambulatory Roshan R NILL Facility:[facility] Start: 07-12-2023 End: 07-12-2023 Patient encounter procedure Roshan R NILL [facility] Start: 06-20-2023 End: 06-21-2023 ambulatory Roshan R NILL Facility:[facility] Start: 06-02-2023 ambulatory ESTELA KRISHNAN Facility:[facility] Start: 04-26-2023 ambulatory [facility] Hol[facility] Start: 04-20-2023 End: 04-21-2023 ambulatory Michael Holley Facility:[facility] Start: 04-04-2023 End: 04-05-2023 ambulatory Michael Holley Facility:[facility] Start: 04-04-2023 End: 04-04-2023 Patient encounter procedure Michael Holley [facility] Start: 03-21-2023 End: 03-22-2023 ambulatory Michael Holley Facility:[facility] Start: 01-24-2023 End: 01-25-2023 ambulatory ESTELA KRISHNAN Facility:[facility] Start: 11-08-2022 ambulatory ESTLEA KRISHNAN Facility:[facility] Start: 08-31-2021 End: 08-31-[address] ESTELA KRISHNAN Facility:[facility] Procedures Date Procedure Procedure Detail Performing Clinician Start: 06-27-2023 Biopsy of breast Michae fredo APARNA Start: 06-04-1995 Arthroscopy of knee Lamonte jose Holley Appendectomy Roshan VILLAGRANFredo Arthroscopy Michael Holley Cholecystectomy Roshan NILL Extraction of wisdom tooth Travis sheets NILL ft (qualifier value) Michael Holley Comment on above: 15 Foot surgeries to pepito per patient no further details Simple extraction of tooth M kortney BRAUN Tonsillectomy and adenoidectomy Roshan VILLAGRANFredo Total abdominal hyst erectomy with bilateral salpingo-oophorectomy Michael Holley Plan of Treatment Date Care Activity Detail Author Start: 10-02-2023 ambulatory Ambulatory Facility:[facility] Immunizations Immunization Date Immunization Notes Care Provider Shemar ventura NEGATED: Highlighted row has not occurred!08-09-2023 influenza virus vaccine, unspecified formulation Roshan VILLAGRANL [facility] NEGATED: Highlighted row has not occurred!08-09-2023 influenza virus vaccine, unspecified formulation Roshan NILFredo [facility] NEGATED: Highlighted row has not occurred!01-24-2023 SARS-CoV-2 mRNA (tozinameran 5y-11y) vaccine Michael Holley [facility] Payers Date Payer Category Payer Private Health Insurance [id number] 1960 Unknown [id number] 2.16.84 [id number] 1960 Unknown [id number] 2.16.8 [id number] 1960 Unknown [id number] 2.16.8 [id number] 1960 Unknown [id number] 2.16.8 [id number] 1960 Unknown [id number] 2.16.8 [id number] 1960 Unknown [id number] 2.16.8 [id number] 1960 Unknown [id number] 2.16.8 [id number] 1960 Unknown [id number] 2.16.8 [id number] 1960 Unknown [id number] 2.16.8 40.1.961957.3.579.2.727 1960 Unknown [id number] 2.16.8 [id number] 1960 Unknown [id number] 2.16.8 [id number] 1960 Unknown [id number] 2.16.8 [id number] 1960 Unknown [id number] 2.16.8 [id number] 1960 Unknown [id number] 2.16.8 [id number] 1958 Medicare [id number] Self-pay Social History Date Type Detail Facility Start: 03-21-2023 End: 08-09-2023 Tobacco smoking status [facility] (finding[facility] Sex [facility]igned At Female [facility] Functional Status Date Assessment Result Facility 08-09-2023 Functional Status N/A General Lux gonsalo [facility] Clinical Note 06-22-2023 Note Date & Type Note Facility 06-22-2023 Note Chief Complaint consultation for nipple discharge HPI Staff 62 year old female presents on consultation from Dr. Andrews for left nipple discharge. Evaluated by Dr. Holley 03/21 with stated complaint. Mammogram completed 04/04 cat [address]. Evaluated by Dr. Andrews 05/30 with noted brown discharge from left nipple and mass at 6:00 position. Wound culture with normal skin deepali. Patient reports daily spontaneous brown nipple discharge. States breast will feel full at the start of discharge. At that time, she will manually express additional fluid that is more clear/milky in color. Denies overt breast pain. No skin changes. Never had biopsy in the past. No known family history of breast cancer. History of Present Illness 62 yo female with h/o JOHN, polyneuropathy, osteoarthritis, ADHD, referred for left breast mass and left nipple discharge; began in March, initially brown spontaneous discharge in clothing, patient then began experiencing left breast fullness, and would express serous fluid from the breast daily with improvement; no bloody drainage; no pain or skin changes, no previous breast biopsy; had mammogram and US that revealed several small simple cysts and complex 5 mm lesion left breast at 6 o'clock position; indeterminate, recommended f/u US/mammogram in 6 months; denies asa or NSAID use; no fmhx of breast or ovarian cancers; former smoker. Review of Systems PHQ Score Initial Depression Screen Score: 0 ROS - Provider Constitutional: no fever, no sweats, no weight loss. Eyes: yes glasses, no blurred vision, no visual loss. ENMT: no dentures, no hoarseness, no swallowing difficulties, no hearing loss, no ear infection(s), no nose bleeds. Cardiovascular: normal blood pressure, no chest pain, regular heartbeat, no heart murmur. Respiratory: no shortness of breath, no cough, no asthma, no wheezing. Gastrointestinal: no nausea, no vomiting, no diarrhea, no constipation, no blood in stool, no change in bowel habits, no abdominal pain, no hepatitis. Genitourinary: no kidney stones, no urine infection, no dysuria. Musculoskeletal: no pain, no weakness. Skin: no changing moles, no rash, yes skin lumps. Neurologic: no seizures, no epilepsy, no headache. Psychiatric: no emotional or psychiatric problem. Heme/Lymph: no bleeding problems, no anemia, no blood clots, no transfusions. Allergy/Immunologic: no swollen lymph nodes/glands, no IV drug abuse. Other: Additional ROS info: Except as noted in the above Review of Systems and in the History of Present Illness, all other systems have been reviewed and are negative or noncontributory. Physical Exam Vitals & Measurements HR: 72(Peripheral) RR: 16 BP: 120/72 HT: 67 in HT: 170.2 cm WT: 71 kg WT: 156.2 lb BMI: 24.51 HEENT: normal conjunctiva, sclera clear, no scleral icterus, EOM intact, PERRLA. oral mucosa moist without lesions Neck: trachea midline , no mass, symmetric, no thyromegaly or nodules. no adenopathy Respiratory: lungs CTA, respirations non labored. Cardiovascular: regular rate and rhythm, no murmur, , no pedal edema or varicosities. Chest (Breasts): symmetric, left breast with 7 mm nodule 6 o'clock position, no skin changes, nontender, with compression of nodule, serous drainage from nipple, no nipple changes or ulceration, no retraction; right breast without dominant masses, skin or nipple changes. Gastrointestinal: soft, non distended, no tenderness, no masses, no palpable hernias, diastasis recti no, no hepatosplenomegaly. normal bs Lymphatic: no cervical adenopathy, no axillary adenopathy, no supraclavicular adenopathy. Musculoskeletal: normalgait, digits and nails without infection, nodes, cyanosis, clubbing. Skin: no rashes, no lesions, no ulcers, no subcutaneous nodules, induration. Psychiatric/Neuro: oriented to time, place, person, judgement normal, affect appropriate for age, insight intact, no focal deficits. Tests: labs reviewed, x-rays reviewed, review of old records completed , Assessment/Plan 1. Unspecified lump in the left breast, lower outer quadrant (N63.23: Unspecified lump in the left breast, lower outer quadrant) plan US-guided core breast biopsy of left breast complex cyst for tissue diagnosis; follow up with me 1 week after biopsy, call sooner if problems/questions. 2. Nipple discharge (N64.52: Nipple discharge) see # 1 Follow-up No qualifying data available Problem List/Past Medical History Ongoing ADHD BMI 24.0-24.9, adult Complex regional pain syndrome of lower limb Essential tremor Generalized anxiety disorder Hx of osteoarthritis Idiopathic polyneuropathy [facility] current use of opiate analgesic Mass of left breast Nipple discharge Scoliosis Historical Polyneuropathy RSD lower limb Procedure/Surgical History Arthroscopy of knee (06/04/1995), Appendectomy, Cholecystectomy, Extraction of wisdom tooth, Foot, Simple dental extraction, DEAN BSO - Total abdominal hysterectomy and bilateral salpingo-oophorectomy, [place] (more content not included)... [facility] Comment on above: Result Comment: Elec tronically Signed By: Roshan BRAUN MD\.br\Date and Time Signed: 06/22/23 09:47 EDT Evaluation + Plan note Radiology Note Date & Type Note Facility Evaluation + Plan note Future Appointments Appointment Date:04/20/2023 03:20:00 PM Scheduled Provider:[facility] MD [facility] Type: Open Future Scheduled TestsUS Breast Unilateral Lt Complete 03/27/23US Breast Unilateral Rt Complete 03/27/23 [facility] Evaluation + Plan note Radiology Note Date & Type Note Facility Evaluation + Plan note Future Appointments Appointment Date:07/24/2023 01:40:00 PM Scheduled Provider:Michael Holley MD [facility] App[facility] Type: Open Appointment Date:08/09/2023 01:00:00 PM Scheduled Provider:Roshan BRAUN [facility] Type: Established 15 Future Scheduled TestsUS Breast Unilateral Lt Complete 03/27/23US Breast Unilateral Rt Complete 03/27/23MA Mamm Diag w/CAD if perf and 3D Manny 09/20/23 [facility] Evaluation + Plan note Radiology Note Date & Type Note Facility Evaluation + Plan note Future Appointments Appointment Date:10/02/2023 01:00:00 PM Scheduled Provider:Michael Holley MD Location:[facility] Appointment Type: Open Future Scheduled TestsUS Breast Unilateral Lt Complete 03/27/23US Breast Unilateral Rt Complete 03/27/23MA Mamm Diag w/CAD if perf and 3D Manny 09/20/23 [facility] Hospital course Narrative Note Date & Type Note Facility Hospital course Narrative No data available for this section [facility] Hospital Discharge instructions Note Date & Type Note Facility Hospital Discharge instructions No data available for this section [facility] Progress note Note Date & Type Note Facility Progress note No data available for this section [facility] Summary Purpose Family History No Family History Records Found No data available for this section No data available for this section No Family History Records Found Advance Directives No Advanced Directives Records FoundNo Advanced Directives Records Found Additional Source Comments INFORMATION SOURCE (unrecogn ized section and content) DATE CREATED AUTHOR 09/08/2021 [facility] DATE CREATED AUTHOR AUTHOR'S ORGANIZ ATION 08/16/2023 [facility] Patient Care team informatio n (unrecognized section and content) Personnel Name: Michael Holley MD Address: Address: [address] [place] [address] Personnel Name: Michael Holley MD Address: Address: [address] [place] [address] Personnel Name: Michael Holley MD Address: Address: [address] [place] [address] FOR RECORDS PERTAINING TO PATIENTS WHO ARE OR HAVE BEEN ENROLLED IN A CHEMICAL DEPENDENCY/SUBSTANCEABUSE PROGRAM, SOME INFORMATION MAY BE OMITTED. This clinical summary was aggregated from multiple sources. Caution should be exercised in using it in the provision of clinical care. This summary normalizes information from multiple sources, and as a consequence, information in this document may materially change the coding, format and clinical context of patient data. In addition, data may be omitted in some cases. CLINICAL DECISIONS SHOULD BE BASED ON THE PRIMARY CLINICAL RECORDS. [facility] [employer] [facility] provides no warranty or guarantee of the accuracy or completeness of information in this document.
--- NOTE | 2023-09-05 11:12 | ECG_ITS ---
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
== END 2023-09-05 11:01 | disposition home or self-care (01) ==
LOC: PST 11:03
PROVIDERS: Visit Provider Surgery
DX: Z01.810 Encounter for preprocedural cardiovascular examination (principal); N63.23 Unspecified lump in the left breast, lower outer quadrant; N64.52 Nipple discharge
CPT/HCPCS: 93005

== ENCOUNTER 2023-11-22 08:56 | Outpatient (OUT) | payer MEDICARE, SELFPAY ==
--- NOTE | 2023-11-22 09:40 | PM.PRESUREVA ---
History of Present Illness History of Present Illness Chief complaint: nipple discharge, left breast mass Narrative: Patient presents for preadmission testing. The patient was originally scheduled for her procedure in September, but she needed cardiac clearance which has now been obtained. The patient states she still has intermittent left nipple discharge but no other complaints. Review of Systems ROS Narrative REVIEW OF SYSTEMS: Negative except as stated in HPI, ten or more systems reviewed. Constitutional: No fever , chills, weakness ENT: No sore throat or epistaxis Cardiovascular: No edema, chest pain, or palpitations; Chronic dyspnea on exertion Respiratory: No cough or wheezing Musculoskeletal: chronic joint pain and swelling Gastrointestinal: No abdominal pain, constipation, diarrhea, or vomiting Genitourinary: No dysuria or hematuria Neurological: No numbness, tingling, weakness, or headache Psychiatric: No mood changes PFSH [facility] Medical History (Updated 11/22/23 @ 09:58 by Michelle Shaw NP) Left breast mass ?N63.20 - Unspecified lump in the left breast, unspecified quadrant (ICD-10) Anxiety ?F41.9 - Anxiety disorder, unspecified (ICD-10) COVID-19 ?U07.1 - COVID-19 (ICD-10) Pneumonia ?J18.9 - Pneumonia, unspecified organism (ICD-10) White coat syndrome with diagnosis of hypertension ?I10 - Essential (primary) hypertension (ICD-10) Hypertension ?I10 - Essential (primary) hypertension (ICD-10) Reflex sympathetic dystrophy ?G90.50 - Complex regional pain syndrome I, unspecified (ICD-10) Idiopathic polyneuropathy ?G60.9 - Hereditary and idiopathic neuropathy, unspecified (ICD-10) ADHD ?F90.9 - Attention-deficit hyperactivity disorder, unspecified type (ICD-10) Arthritis ?M19.90 - Unspecified osteoarthritis, unspecified site (ICD-10) JOHN (generalized anxiety disorder) ?F41.1 - Generalized anxiety disorder (ICD-10) Discharge from left nipple ?N64.52 - Nipple discharge (ICD-10) Surgical History (Updated 06/29/23 @ 09:37 by Kaylie Trivedi) H/O ultrasound guided needle biopsy ?Z98.890 - Other specified postprocedural states (ICD-10) H/O foot surgery ?Z98.890 - Other specified postprocedural states (ICD-10) Status post tonsillectomy and adenoidectomy ?Z90.89 - Acquired absence of other organs (ICD-10) S/P DEAN-BSO (total abdominal hysterectomy and bilateral salpingo-oophorectomy) ?Z90.710 - Acquired absence of both cervix and uterus (ICD-10) ?Z90.722 - Acquired absence of ovaries, bilateral (ICD-10) ?Z90.79 - Acquired absence of other genital organ(s) (ICD-10) History of cholecystectomy ?Z90.49 - Acquired absence of other specified parts of digestive tract (ICD-10) S/P appy ?Z90.49 - Acquired absence of other specified parts of digestive tract (ICD-10) H/O arthroscopy of left knee ?Z98.890 - Other specified postprocedural states (ICD-10) S/P right knee arthroscopy ?Z98.890 - Other specified postprocedural states (ICD-10) Family History (Updated 09/05/23 @ 08:16 by Danii Layne) Other Family history of cancer Social History (Updated 09/05/23 @ 11:19 by Danii Layne) Within the past year, how often did you have a drink containing alcohol: 2-3 times a week Smoking status: Former smoker Non-prescribed substance use: cannabis (any form) Previous occupational history: retired Highest level of school completed/degree received: GED or equivalent Meds Home Medications and Allergies Home Medications ?Medication ?Instructions ?Recorded ?Confirmed ?Type Balance of Nature Supplement 1 tab PO DAILY 06/23/23 11/22/23 History alprazolam 0.25 mg tablet (Xanax) 0.25 mg PO TID PRN anxiety 06/23/23 11/22/23 History cyclobenzaprine 10 mg tablet 10 mg PO BEDTIME 06/23/23 11/22/23 History gabapentin 600 mg tablet,extended 600 mg PO QPM 06/23/23 11/22/23 History release 24 hr aspirin 81 mg tablet,delayed 81 mg PO DAILY 11/22/23 11/22/23 History release (Adult Aspirin Regimen) losartan 50 mg-hydrochlorothiazide 1 tab PO DAILY 11/22/23 11/22/23 History 12.5 mg tablet Allergies Allergy/AdvReac Type Severity Reaction Status Date / Time Corticosteroids Allergy Anaphylaxis Verified 11/22/23 09:13 (Glucocorticoids) guaifenesin [From Entex LA] Allergy Unknown Verified 11/22/23 09:13 metaxalone [From Skelaxin] Allergy Unknown Verified 11/22/23 09:13 phenylephrine [From Entex LA] Allergy Unknown Verified 11/22/23 09:13 phenylpropanolamine Allergy Unknown Verified 11/22/23 09:13 [From Entex LA] Exam Narrative Exam Narrative: Constitutional: Awake, alert, comfortable, well-appearing, nontoxic, interactive, vital signs as charted Head: Normocephalic, atraumatic Neck: Supple, normal appearance, normal range of motion, no meningeal signs, no lymphadenopathy Respiratory: No respiratory distress, breath sounds clear Cardiovascular: Regular rate and rhythm, strong and regular heart tones Musculoskeletal: Normal gait, no swelling or edema Skin: No rashes or induration, no lesions, only visible skin inspected Neuro: No neurological deficits, normal sensation Psychiatric: Oriented ?3, Anxious affect Assessment and Plan Assessment and Plan (1) Discharge from left nipple: (2) Left breast mass: Plan Left breast ductal excision under anesthesia scheduled with Dr. Chaney 12/06/2023.
[2023-11-22 11:08] LABS: BUN Creatinine Ratio 12.4; Calcium 8.6 mg/dL (8.5-10.1); Carbon Dioxide 27.9 mmol/L (21.0-32.0); Chloride 103 mmol/L (98-107); Estimated GFR (African America >60 (>=60); Estimated GFR (Non-African Ame >60 (>=60); Glucose 101 mg/dL (74-106); Potassium 3.9 mmol/L (3.5-5.1); Sodium 140 mmol/L (136-145)
== END 2023-11-22 08:57 | disposition home or self-care (01) ==
LOC: PST 08:57
PROVIDERS: PCP Family Medicine; Visit Provider Surgery
DX: N63.23 Unspecified lump in the left breast, lower outer quadrant (principal); N64.52 Nipple discharge
CPT/HCPCS: 36415; 80048; G0463

== ENCOUNTER 2024-01-02 15:05 | Outpatient (OUT) | payer MEDICARE, SELFPAY ==
[2024-01-02 15:38] LABS: Anion Gap 11.5; BUN Creatinine Ratio 17.6; Calcium 9.1 mg/dL (8.5-10.1); Carbon Dioxide 27.8 mmol/L (21.0-32.0); Chloride 101 mmol/L (98-107); Estimated GFR (African America >60 (>=60); Estimated GFR (Non-African Ame >60 (>=60); Glucose 100 mg/dL (74-106); Potassium 4.3 mmol/L (3.5-5.1); Sodium 136 mmol/L (136-145)
== END 2024-01-08 09:21 | disposition home or self-care (01) ==
LOC: PST 15:06
PROVIDERS: PCP Family Medicine; Visit Provider Surgery
DX: Z01.812 Encounter for preprocedural laboratory examination (principal); N63.23 Unspecified lump in the left breast, lower outer quadrant; N64.52 Nipple discharge
CPT/HCPCS: 36415; 80048

== ENCOUNTER 2024-01-10 09:10 | Day surgery (SDC) | payer MEDICARE, SELFPAY ==
[2023-11-22 09:37] VITALS: BP 118/81; PULSE 78; RESP 20; TEMP 36.4; O2SAT 96; BMI 24.1
--- NOTE | 2024-01-02 13:13 | PC.NURSE ---
1309: called pt,no answer left message for pt to call PAT to reschedule a new visit.
[2024-01-10] VITALS (8 sets, daily range): BP systolic 88–177; BP diastolic 67–86; PULSE 65–78; TEMP 35.4–36.3; O2SAT 94–97
--- NOTE | 2024-01-10 | OP_ITS ---
OPERATION DATE: 01/10/2024 PREOPERATIVE DIAGNOSIS: Granuloma of the left breast with persistent nipple discharge. POSTOPERATIVE DIAGNOSIS: Granuloma of the left breast with persistent nipple discharge. PROCEDURE: Excisional biopsy granuloma of the left breast, 7:00 position, with major ductal excision. SURGEON: Roshan Chaney M.D. ANESTHESIA: General with laryngeal mask airway, as well as local with 0.5% Marcaine plain. ESTIMATED BLOOD LOSS: Less than 7 mL. INDICATIONS AND CONSENT: Patient is a 63-year-old female with history of intermittent nipple discharge, as well as a nodule noted in the medial lower quadrant of the left breast. She did undergo an ultrasound guided biopsy that was non-diagnostic. She continues to have intermittent drainage; therefore, major ductal excision and excision of the granuloma were recommended. Indications, risks, benefits, alternatives of proceeding were explained extensively to the patient, including the risks of bleeding, infection, scarring, pain, recurrence, need for further surgery. All of her questions were answered. Informed consent was obtained. PROCEDURE: Patient brought to the operating room, placed in the supine position. General anesthesia was induced. Patient was prepped and draped in the usual sterile fashion. A lacrimal duct probe was used to cannulate the duct that was draining. It did extend down into the granuloma that was palpable. Curvilinear incision was made in the edge of the nipple areolar complex, adjacent to the area of the granuloma. It was carried down through subcutaneous tissue using sharp dissection as well as electrocautery. Superior and inferior skin flaps were raised. The granuloma was grasped with an Allis. Incision was carried down using electrocautery, down to the pectoralis fascia. The specimen was marked with a short stitch superior and long stitch laterally. It was excised and then sent off to Pathology. Hemostasis achieved with electrocautery. The major ducts were ligated with 3-0 Monocryl suture. The subcutaneous tissue was the re-approximated with interrupted 3-0 Monocryl suture. The subcutaneous tissue was then infiltrated with 0.5% Marcaine. The skin was then closed with a running 4-0 subcuticular Monocryl suture and skin glue. A sterile pressure dressing was applied, as well as patient?s bra. Sponge and needle counts were correct x2 per nursing personnel. Patient tolerated procedure well, was sent to recovery room in good condition. CC: Patient?s family physician CHINO
[2024-01-10] MEDS: LACTATED RINGER'S SOLUTION 1,000 ML 50 ML IV (09:41)
[2024-01-10] MEDS: CEFAZOLIN SODIUM/DEXTROSE,ISO 2 GM/50 ML PIGGYBACK IV (10:38)
[2024-01-10] MEDS: BUPIVACAINE HCL 0.5% PF 50 MG/10 ML VIAL INJ (11:20)
--- NOTE | 2024-01-10 14:32 | RESP.RT ---
done per nursing
== END 2024-01-10 12:39 | disposition home or self-care (01) ==
PROVIDERS: PCP Family Medicine; Visit Provider Surgery
PROC: (CPT 19120; principal; 2024-01-10 10:20)
DX: C50.312 Malignant neoplasm of lower-inner quadrant of left female breast (principal); N64.52 Nipple discharge; Z17.0 Estrogen receptor positive status [ER+]; I10 Essential (primary) hypertension; G60.9 Hereditary and idiopathic neuropathy, unspecified; Z90.49 Acquired absence of other specified parts of digestive tract; Z90.710 Acquired absence of both cervix and uterus; Z79.82 Long term (current) use of aspirin; Z79.899 Other long term (current) drug therapy; Z87.891 Personal history of nicotine dependence
CPT/HCPCS: 19120; 36415; 88307; 88341; 88342; 94667

== ENCOUNTER 2024-02-20 16:05 | Outpatient (REF) | payer MEDICARE, SELFPAY ==
--- OUTSIDE RECORDS SUMMARY | 2024-02-23 09:53 | XMS_ITS | CCD ---
Author Organization [facility] Care Team Providers Care Transplant Worker Name Role Phone DR RHINA KRISHNAN Attending Unavailable EULOGIO, DR RHINA Jonas Consulting Unavailable EULOGIO, DR RHINA Jonas Primary Care Unavailable EULOGIO, DR RHINA Jonas Admitting Unavailable Michael Holley Primary Care Physician MD Rhina Krishnan Primary Care Provider [phone] MD Roshan Chaney Attending Provider Rhina Krishnan Primary Care Unavailable Roshan Chaney Attending Unavailable Roshan Chaney Admitting Unavailable Michael Holley Admitting Unavailable Michael Holley Attending Unavailable NILL, Roshan Horner Attending Unavailable NILL, Roshan Horner Attending Unavailable Michael Holley Attending Unavailable Michael Holley Attending Unavailable Michael Holley Attending Unavailable Michael Holley. Attending Unavailable NILL, Roshan Horner Attending Unavailable NILL, Roshan Horner Attending Unavailable NILL, Roshan Horner Attending Unavailable NILL, Roshan Horner Attending Unavailable NILL, Roshan Horner Attending Unavailable NILL, Roshan Horner Attending Unavailable NILL, Roshan Horner Attending Unavailable NILL, Roshan Horner Attending Unavailable Michael Holley E. Attending Unavailable Michael Holley E. Attending Unavailable Michael Holley E. Attending Unavailable Michael Holley E. Attending Unavailable Michael Holley E. Attending Unavailable Michael Holley. Attending Unavailable MD Osmin PAUL Admitting Unavailable MD Osmin PAUL Attending Unavailable Michael Holley Referring Unavailable NONE, XXXX Referring Unavailable MD Osmin PAUL Admitting Unavailable MD Osmin PAUL Attending Unavailable Michael Holley Admitting Unavailable Michael Holley Attending Unavailable Michael Holley Referring Unavailable MD Osmin PAUL Admitting Unavailable MD Osmin PAUL Attending Unavailable MD Osmin PAUL Referring Unavailable Roberto Sosa Consulting MD Roberto Moore Consulting Roberto Castellon Consulting MD Michael Chapa Primary Care Provider MD Kush Glez Attending Provider MD Roshan Chaney Referring Provider Allergies Allergy Classification Reported Allergen(s) Allergy Type Date of Onset Reaction(s) Facility Adrenergic Agonists (1 source) Pseudoephedrine Drug Allergy 02-08-20 24 Unknown Reaction [facility] Corticosteroids (1 source) Corticosteroids Drug Allergy 02-08-20 24 Unknown Reaction [facility] metaxalone (1 source) metaxalone Drug Allergy 02-08-20 24 Unknown Reaction [facility] (1 source) Hydrocortisone Drug Allergy 01-02-20 17 [facility] (1 source) methylPREDNISolone Drug Allergy 12-26-19 17 [facility] (1 source) prednisoLONE Drug Allergy 01-02-20 17 [facility] (1 source) predniSONE Drug Allergy 01-02-20 17 [facility] (1 source) Decon-A Drug allergy (disorder) 01-02-20 17 [facility] (1 source) Decon-G Drug allergy (disorder) 01-02-20 17 [facility] (11 sources) metaxalone; Translations: [metaxalone] Drug Allergy 02-08-20 24 Unknown (qualifier value) [facility] (11 sources) Pseudoephedrine; Translations: [pseudoephedrine] Drug Allergy 02-08-20 24 Unknown (qualifier value) [facility] (9 sources) Corticosteroids; Translations: [corticosteroids] Propensity to adverse reactions to drug Anaphylaxis (disorder) [facility] (1 source) Corticosteroids Allergy to substance 02-08-20 24 Unknown Reaction [facility] Medications Current Medications Medication Drug Class(es) Dates Sig (Normalized) Sig (Original) ALPRAZolam 0.25 mg oral tablet (11 sources) Benzodiazepine Start: 12-25-2023 take 0.25 mg by mouth three times daily Alprazolam Active 0.25 MG PO Three times daily February 08, 2024 12:00am Start: 10-02-2023 take 1 tablet by [facility] three times daily alprazolam 0.25 mg Tab 0.25 mg = 1 tab(s), Oral, TID, # 90 tab(s), Refills(s) 0, Pharmacy: [facility] 1155, 170, cm, 10/02/23 13:02:00 EST, Height/Length Dosing, 69.7, kg, 10/02/23 13:02:00 EST, Weight Dosing Start Date: 10/02/23 Status: Ordered Start: 07-21-2023 take 1 tablet by [facility] three times daily alprazolam 0.25 mg Tab 0.25 mg = 1 tab(s), Oral, TID, # 90 tab(s), Refills(s) 0, Pharmacy: [facility] 1155, 170.2, cm, 06/20/23 14:35:00 EDT, Height/Length Dosing, 71, kg, 06/20/23 14:35:00 EDT, Weight Dosing Start Date: 07/21/23 Status: Ordered Start: 04-20-2023 take 1 tablet by [facility] three times daily alprazolam 0.25 mg Tab 0.25 mg = 1 tab(s), Oral, TID, # 90 tab(s), Refills(s) 2, Pharmacy: [facility] 1155, 170.2, cm, 04/20/23 15:23:00 EDT, Height/Length Dosing, 70.6, kg, 04/20/23 15:23:00 EDT, Weight Dosing Start Date: 04/20/23 Status: Ordered Start: 03-23-2023 take 1 tablet by [facility] three times daily alprazolam 0.25 mg Tab 0.25 mg = 1 tab(s), Oral, TID, # 90 tab(s), Refills(s) 0, [facility], 170.2, cm, 03/21/23 14:25:00 EDT, Height/Length Dosing, 71.5, kg, 03/21/23 14:25:00 EDT, Weight Dosing Start Date: 03/23/23 Status: Ordered aspirin 81 mg delayed release oral tablet (7 sources) Platelet Aggregation Inhibitor, Nonsteroidal Anti-inflammatory Drug Start: 10-31-2023 take 81 mg by mouth once daily Aspirin Active 81 MG PO Daily February 08, 2024 12:00am cyclobenzaprine hydrochloride 10 mg oral tablet (11 sources) Muscle Relaxant Start: 07-24-2023 take 10 mg by mouth three times daily Cyclobenzaprine Active 10 MG PO Three times daily February 08, 2024 12:00am Start: 01-10-2023 take 1 tablet by radha th at bedtime as needed for muscle spasms cyclobenzaprine 10 mg Tab 10 mg = 1 tab(s), Oral, Bedtime, PRN for spasm, # 90 tab(s), Refills(s) 3, Pharmacy: [facility] ([facility] ) Start Date: 01/10/23 Status: [...] Status: Ordered gabapentin 300 mg oral capsule (11 sources) Anti-epileptic Agent Start: 03-23-2023 take 300 mg by mouth twice daily Gabapentin Active 300 MG PO Twice daily February 08, 2024 12:00am hydroCHLOROthiazide 12.5 mg / losartan potassium 50 mg oral tablet (8 sources) Thiazide Diuretic, Angiotensin 2 Receptor Betty Start: 11-27-2023 take 1 tablet by mouth once daily Losartan-Hydrochlo rothiazide Active 1 TAB PO Daily February 08, 2024 12:00am Start: 09-07-2023 take 1 tablet by radha th once daily Hyzaar 12.5 mg-50 mg Tab 1 tab(s), Oral, Daily, 30 tab(s), Refill(s) 3, [facility], 170.2, cm, 09/07/23 13:37:00 EST, Height/Length Dosing, 68.6, kg, 09/07/23 13:37:00 EST, Weight Dosing Start Date: 09/07/23 Status: Ordered Problems Active Problems Problem Classification Problem Date Documented Date Episodic/Chronic Anxiety disorders (15 sources) Generalized anxiety disorder; Translations: [Anxiety] 03-21-2023 Chronic Attention-deficit, conduct, and disruptive behavior disorders (9 sources) Attention deficit hyperactivity disorder 11-08-2022 Chronic Cancer of breast (7 sources) Malignant neoplasm of lower-inner quadrant of left female breast; Translations: [Malignant neoplasm of lower-inner quadrant of female breast] Onset: 01-23-2024 Chronic Essential hypertension (6 sources) Hypertensive disorder 09-07-2023 Chronic Genitourinary symptoms and ill-defined conditions (7 sources) Dysuria 08-09-2023 Episodic Nonmalignant breast conditions (20 sources) Breast lump; Translations: [Discharge from nipple] Onset: 08-09-2023 03-21-2023 Episodic Other acquired deformities (9 sources) Scoliosis deformity of spine 03-21-2023 Chronic Other connective tissue disease (9 sources) H/O: osteoarthritis 11-08-2022 Episodic Other hereditary and degenerative nervous system conditions (9 sources) Essential tremor 11-08-2022 Chronic Other nervous system disorders (17 sources) Complex regional pain syndrome of lower limb 11-08-2022 Chronic Other nervous system disorders (17 sources) Polyneuropathy 11-08-2022 Chronic Other nutritional; endocrine; and metabolic disorders (4 sources) Overweight in adulthood with body mass index of 25 or more but less than 30 01-02-2024 Episodic Other screening for suspected conditions (not mental disorders or infectious disease) (10 sources) Electrocardiogram abnormal; Translations: [Patient encounter status] 10-02-2023 Episodic Unclassified (2 sources) CONTACT W/AND (SUSP) EXPOS COVID-19; Translations: [CONTACT W/AND (SUSP) EXPOS COVID-19] Onset: 09-07-2021 Unclassified (2 sources) Long-term current use of drug therapy 11-08-2022 Unclassified (4 sources) Body mass index 20-24 - normal 06-20-2023 Unclassified (6 sources) Patient encounter status 09-07-2023 Viral infection (1 source) COVID-19; Translations: [COVID-19] Onset: 09-07-2021 Past or Other Problems Problem Classification Problem Date Documented Da te Episodic/Chronic Unclassified (1 source) CONTACT W/AND (SUSP) EXPOS COVID-19; Translations: [CONTACT W/AND (SUSP) EXPOS COVID-19] Onset: 08-31-2021 Results Test Name Value Interpretation Reference Range Facil ity Ambulatory Visit Summaryon 0 02-20-2024 Ambulatory Visit Summary ADELINA MIR :1960 Visit Date:02/20/2024 Ambulatory Visit Instructions Your Care Team Attending Physician - APARNA PRATT, Roshan Horner Primary Care Physician - Kishan PRATT, Michael Barker This Is Your Medications List Contact prescribing physician if questions or concerns alprazolam (alprazolam 0.25 mg Tab) aspirin (aspirin 81 mg Oral EC Tab) cyclobenzaprine (cyclobenzaprine 10 mg Tab) gabapentin (gabapentin 300 mg Cap) hydrochlorothiazide-losar lemus (Hyzaar 12.5 mg-50 mg Tab) Procedures Performed Excision of breast mass (01/10/2024), Biopsy of breast (06/27/2023), Arthroscopy of knee (06/04/1995), Appendectomy, Cholecystectomy, Extraction of wisdom tooth, Foot, Simple dental extraction, DEAN BSO - Total abdominal hysterectomy and bilateral salpingo-oophorectomy, Tonsillectomy and adenoidectomy. What to do next Scheduled Follow-Up Appointments Monday. 2023 1:00 PM EDT With: Michael Holley MD Where: [facility] [place] Normal [facility] Albumin [Mass/volume] in Ser um or Plasma by Bromocresol green (BCG) dye binding methoOrdered By: Kush Glez on 02-13-2024 Albumin BCG dye [Mass/Vol] 4.3 g/dL 3.5-5.7 [facility] Ca 27.29on 02-13-2024 Ca 27.29 13.6 Normal 0.0-38.6 [facility] Comment on above: Result Comment: [employer] Immunochemiluminometric Methodology (ICMA) Values obtained with different assay methods or kits cannot be used interchangeably. Results cannot be interpreted as absolute evidence of the presence or absence of malignant disease. Performed at: [address] [id number] Production Planning Manager: Anthony Keane PhD, Phone: [phone] Performed By: #### C A2729, CA15-3 #### [facility] , #### CBC, CMP #### [address] Cancer Antigen (Ca) 15-3on 0 02-13-2024 Cancer Antigen (Ca) 15-3 9.7 Normal 0.0-25.0 [facility] Comment on above: Result Comment: [employer] Electrochemiluminescence Immunoassay (ECLIA) Values obtained with different assay methods or kits cannot be used interchangeably. Results cannot be interpreted as absolute evidence of the presence or absence of malignant disease. Performed at: [address] [id number] Production Planning Manager: Anthony Keane PhD, Phone: [phone] PERFORMED BY: [place] [address] PATHOLOGIST CORPORATE LIBRARIAN RADHA BONILLA M.D. Performed By: #### C A2729, CA15-3 #### [facility] , #### CBC, CMP #### [address] Complete Blood Count Auto Di ffOrdered By: Kush Glez on 02-13-2024 Basophils (Bld) [#/Vol] 0.1 10*3/uL 0.0-0.2 [facility] Comment on above: Result Comment: PERF ORMED BY: [place] [address] PATHOLOGIST CORPORATE LIBRARIAN RADHA BONILLA M.D. Performed By: #### C A2729, CA15-3 #### [facility] , #### CBC, CMP #### [address] Basophils/100 WBC (Bld) 1.3 % . [facility] Comment on above: Performed By: #### C A2729, CA15-3 #### [facility] , #### CBC, CMP #### [address] Eosinophils (Bld) [#/Vol] 0.3 10*3/uL 0.0-0.45 [facility] Comment on above: Performed By: #### C A2729, CA15-3 #### [facility] , #### CBC, CMP #### [address] Eosinophils/100 WBC (Bld) 3.6 % . [facility] Comment on above: Performed By: #### C A2729, CA15-3 #### [facility] , #### CBC, CMP #### [address] Erythrocyte distribution width (RBC) [Ratio] 14.4 % 11.9-15.3 [facility] Comment on above: Performed By: #### C A2729, CA15-3 #### [facility] , #### CBC, CMP #### [address] Hematocrit (Bld) [Volume fraction] 41.1 % 34.0-46.4 [facility] Comment on above: Performed By: #### C A2729, CA15-3 #### [facility] , #### CBC, CMP #### [address] Hemoglobin (Bld) [Mass/Vol] 13.9 g/dL 11.8-15.4 [facility] Comment on above: Performed By: #### C A2729, CA15-3 #### [facility] , #### CBC, CMP #### [address] Lymphocytes (Bld) [#/Vol] 2.4 10*3/uL 1.00-4.8 [facility] Comment on above: Performed By: #### C A2729, CA15-3 #### [facility] , #### CBC, CMP #### [address] Lymphocytes/100 WBC (Bld) 27.3 % . [facility] Comment on above: Performed By: #### C A2729, CA15-3 #### [facility] , #### CBC, CMP #### [address] MCH (RBC) [Entitic mass] 32.8 pg 24.7-34.3 [facility] Comment on above: Performed By: #### C A2729, CA15-3 #### [facility] , #### CBC, CMP #### [address] MCV (RBC) [Entitic vol] 96.8 fL 80-100 [facility] Comment on above: Performed By: #### C A2729, CA15-3 #### [facility] , #### CBC, CMP #### [place] [address] [place] Monocytes (Bld) [#/Vol] 0.5 10*3/uL 0.0-0.8 [facility] Comment on above: Performed By: #### C A2729, CA15-3 #### [facility] , #### CBC, CMP #### [place] [address] [place] Monocytes/100 WBC (Bld) 6.3 % . [facility] Comment on above: Performed By: #### C A2729, CA15-3 #### [facility] , #### CBC, CMP #### [place] [address] [place] Neutrophils (Bld) [#/Vol] 5.3 10*3/uL 1.8-7.7 [facility] Comment on above: Performed By: #### C A2729, CA15-3 #### [facility] , #### CBC, CMP #### [address] Neutrophils/100 WBC (Bld) 61.5 % . [facility] Comment on above: Performed By: #### C A2729, CA15-3 #### [facility] , #### CBC, CMP #### [place] [address] [place] Platelet mean volume (Bld) [Entitic vol] 7.9 fL 6.3-10.7 [facility] Comment on above: Performed By: #### C A2729, CA15-3 #### [facility] , #### CBC, CMP #### [place] [address] [place] Platelets (Bld) [#/Vol] 288 10*3/uL 150-450 [facility] Comment on above: Performed By: #### C A2729, CA15-3 #### [facility] , #### CBC, CMP #### [place] [address] [place] RBC (Bld) [#/Vol] 4.24 10*6/uL 3.60-5.00 [facility] Comment on above: Performed By: #### C A2729, CA15-3 #### [facility] , #### CBC, CMP #### [place] [address] [place] WBC (Bld) [#/Vol] 8.7 10*3/uL 3.8-11.6 [facility] Comment on above: Performed By: #### C A2729, CA15-3 #### [facility] , #### CBC, CMP #### [address] Complete Blood Count Auto Di ffon 02-13-2024 Mean Corpuscular HGB Conc 33.8 g/dL Normal 32.0-35.0 [facility] Comment on above: Performed By: #### C A2729, CA15-3 #### [facility] , #### CBC, CMP #### [address] NRBC% 0.1 /100{WBC} Normal 0-0.5 [facility] Comment on above: Performed By: #### C A2729, CA15-3 #### [facility] , #### CBC, CMP #### [address] Comprehensive Metabolic Pane placido 02-13-2024 Albumin [Mass/Vol] 4.3 g/dL Normal 3.5-5.7 [facility] Comment on above: Performed By: #### C A2729, CA15-3 #### [facility] , #### CBC, CMP #### [address] Creatinine Clr Calc Pharmacy 55.07 Normal [facility] Comment on above: Result Comment: PERF ORMED BY: [place] [address] PATHOLOGIST CORPORATE LIBRARIAN RADHA BONILLA M.D. Performed By: #### C A2729, CA15-3 #### [facility] , #### CBC, CMP #### [facility] [address] [place] [address] GFR/1.73 sq M.predicted MDRD (S/P/Bld) [Vol rate/Area] mL/min/{1.73_m2} Normal [facility] Comment on above: Performed By: #### C A2729, CA15-3 #### [facility] , #### CBC, CMP #### [facility] [address] [place] [address] Comprehensive Metabolic Pane lOrdered By: Kush Glez on 02-13-2024 Albumin/Globulin [Mass ratio] 1.9 {ratio} [facility] Comment on above: Performed By: #### C A2729, CA15-3 #### [facility] , #### CBC, CMP #### [address] ALP [Catalytic activity/Vol] 65 U/L 34-104 [facility] Comment on above: Performed By: #### C A2729, CA15-3 #### [facility] , #### CBC, CMP #### [address] ALT [Catalytic activity/Vol] 13 U/L 7-52 [facility] Comment on above: Performed By: #### C A2729, CA15-3 #### [facility] , #### CBC, CMP #### [facility] [address] [place] [address] Anion gap [Moles/Vol] 9.9 mmol/L 6.0-15.0 [facility] Comment on above: Performed By: #### C A2729, CA15-3 #### [facility] , #### CBC, CMP #### [facility] [address] [place] [address] AST [Catalytic activity/Vol] 18 U/L 13-39 [facility] Comment on above: Performed By: #### C A2729, CA15-3 #### [facility] , #### CBC, CMP #### [facility] [address] [place] [address] Bilirubin [Mass/Vol] 0.4 mg/dL 0.3-1.0 [facility] Comment on above: Performed By: #### C A2729, CA15-3 #### [facility] , #### CBC, CMP #### [address] Calcium [Mass/Vol] 9.5 mg/dL 8.6-10.3 [facility] Comment on above: Performed By: #### C A2729, CA15-3 #### [facility] , #### CBC, CMP #### [place] [address] [place] Chloride [Moles/Vol] 103 mmol/L 98-107 [facility] Comment on above: Performed By: #### C A2729, CA15-3 #### [facility] , #### CBC, CMP #### [address] CO2 [Moles/Vol] 29.3 mmol/L 21.0-31.0 [facility] Comment on above: Performed By: #### C A2729, CA15-3 #### [facility] , #### CBC, CMP #### [address] Creatinine [Mass/Vol] 1.03 mg/dL 0.60-1.20 [facility] Comment on above: Performed By: #### C A2729, CA15-3 #### [facility] , #### CBC, CMP #### [facility] [address] [place] [address] Globulin (S) [Mass/Vol] 2.3 g/dL [facility] Comment on above: Performed By: #### C A2729, CA15-3 #### [facility] , #### CBC, CMP #### [address] Glucose [Mass/Vol] 106 mg/dL 70-100 [facility] Comment on above: Result Comment: [place] Glucose Reference Range is dependent on time and content of last meal. Glucose of more than 200 mg/dL in a nonstressed, ambulatory subject supports the diagnosis of Diabetes Mellitus. ADA recommended reference range Performed By: #### C A2729, CA15-3 #### [facility] , #### CBC, CMP #### [address] ADA recommended refe rence rangeRandom Glucose Reference Range is dependent on time and content of last meal. Glucose of more than 200 mg/dL in a nonstressed, ambulatory subject supports the diagnosis of Diabetes Mellitus. Potassium [Moles/Vol] 4.2 mmol/L 3.5-5.1 [facility] Comment on above: Performed By: #### C A2729, CA15-3 #### [facility] , #### CBC, CMP #### [address] Protein [Mass/Vol] 6.6 g/dL 6.4-8.9 [facility] Comment on above: Performed By: #### C A2729, CA15-3 #### [facility] , #### CBC, CMP #### [address] Sodium [Moles/Vol] 138 mmol/L 136-145 [facility] Comment on above: Performed By: #### C A2729, CA15-3 #### [facility] , #### CBC, CMP #### [address] Urea nitrogen [Mass/Vol] 17 mg/dL 7-25 [facility] Comment on above: Performed By: #### C A2729, CA15-3 #### [facility] , #### CBC, CMP #### [address] Leukocytes [#/volume] correc pablo for nucleated erythrocytes in Blood by Automated counOrdered By: Kush Glez on 02-13-2024 WBC corrected for nucl RBC Auto (Bld) [#/Vol] 8.7 10*3/uL 3.8-11.6 [facility] MCHC Auto (RBC) [Mass/Vol]Or dered By: Kush Glez on 02-13-2024 MCHC (RBC) [Mass/Vol] 33.8 g/dL 32.0-35.0 [facility] No Panel InformationOrdered By: Kush Glez on 02-13-2024 CA 27.29 13.6 U/mL 0.0-38.6 [facility] Comment on above: [employer] Im[employer] nochemiluminometric Methodology (ICMA)Values obtained with different assay methods or kits cannotbe used interchangeably. Results cannot be interpreted asabsolute evidence of the presence or absence of malignantdisease.Performed at: [facility] [place] [id number] Director: Anthony Keane PhD, Phone: [phone] Estimated GFR (CKD-EPI) > 60.0 mL/Min [facility] Creatinine Clearance (Chem 55.07 [facility] Nucleated erythrocytes [Pres ence] in Blood by Automated countOrdered By: Kush Glez on 02-13-2024 Nucleated RBC Auto Ql (Bld) 0.1 /100{WBC} 0-0.5 [facility] Serum or plasma cancer antig en 15-3 measurement (units/volume)Ordered By: Kush Glez on 02-13-2024 Cancer Ag 15-3 Qn 9.7 U/mL 0.0-25.0 [facility] Comment on above: [facility] El ectrochemiluminescence Immunoassay(ECLIA)Values obtained with different assay methods or kits cannotbe used interchangeably. Results cannot be interpreted asabsolute evidence of the presence or absence of malignantdisease.Performed at: [facility] [address] [id number] Director: Anthony Keane PhD, Phone: [phone] Consultation Noteon 02-09-20 Consultation Note [id number]#1.00TIFF Normal [facility] Stress EKG Tracingson 2023 Stress EKG Tracings [id number]#1.00TIFF Normal [facility] Consultation Noteon 02-05-20 Consultation Note [id number]#1.00TIFF Normal [facility] Pathology Noteon 01-30-2024 Pathology Note [id number]#1.00TIFF Normal [facility] Pathology Note [id number]#1.00TIFF Normal [facility] Ambulatory Visit Summaryon 0 01-23-2024 Ambulatory Visit Summary ADELINA MIR :1960 Visit Date:01/23/2024 Ambulatory Visit Instructions Your Diagnosis Breast cancer of lower-inner quadrant of left female breast Your Care Team Attending Physician - APARNA PRATT, Roshan Horner Primary Care Physician - Michael Holley MD This Is Your Medications List Contact prescribing physician if questions or concerns alprazolam (alprazolam 0.25 mg Tab) aspirin (aspirin 81 mg Oral EC Tab) cyclobenzaprine (cyclobenzaprine 10 mg Tab) gabapentin (gabapentin 300 mg Cap) hydrochlorothiazide-losar lemus (Hyzaar 12.5 mg-50 mg Tab) Procedures Performed Excision of breast mass (01/10/2024), Biopsy of breast (06/27/2023), Arthroscopy of knee (06/04/1995), Appendectomy, Cholecystectomy, Extraction of wisdom tooth, Foot, Simple dental extraction, DEAN BSO - Total abdominal hysterectomy and bilateral salpingo-oophorectomy, Tonsillectomy and adenoidectomy. What to do next Scheduled Follow-Up Appointments Monday. 2023 4:00 PM EDT With: APARNA PRATT, Roshan Horner Where: [facility] [place] [facility] [address] [place] [address]- \.br\ Medications\.br\ What How Much When Instructions\.br \ Unchanged alprazolam (alprazolam 0.25 mg Tab) 1 Tablets By Mouth 3 times a day Contact prescribing physician if questions or concerns \.br\ Unchanged aspirin (aspirin 81 mg Oral EC Tab) Contact prescribing physician if questions or concerns \.br\ Unchanged cyclobenzaprine (cyclobenzaprine 10 mg Tab) 1 Tablets By Mouth At bedtime as needed for for spasm Contact prescribing physician if questions or concerns \.br\ Unchanged gabapentin (gabapentin 300 mg Cap) 1 Capsules By Mouth 2 times a day Contact prescribing physician if questions or concerns \.br\ Unchanged hydrochlorothiaz nery-losartan (Hyzaar 12.5 mg-50 mg Tab) 1 Tablets By Mouth Every day Contact prescribing physician if questions or concerns \.br\ Allergies\.br\ Entex (Unknown)\.br\ Skelaxin (Unknown)\.br\ corticosteroids (Anaphylaxis)\.b r\ Problems\.br\ Ongoing - Any problem that you are currently receiving treatment for.\.br\ Abnormal EKG\.br\ ADHD\.br\ Anxiety\.br\ BMI 25.0-25.9,adult\ .br\ Breast cancer of lower-inner quadrant of left female breast\.br\ Complex regional pain syndrome of lower limb\.br\ Dysuria\.br\ Essential tremor\.br\ Generalized anxiety disorder\.br\ HTN (hypertension)\. br\ Hx of osteoarthritis\. br\ Idiopathic polyneuropathy\. br\ Mass of left breast\.br\ Nipple discharge\.br\ Pre-op exam\.br\ Scoliosis\.br\ Historical - Any problem that you are no longer receiving treatment for.\.br\ Polyneuropathy\. br\ RSD lower limb\.br\ Patient Survey\.br\ You may receive a survey via text or e-mail asking about your office visit. Please share your experience with us by completing your survey. We appreciate your feedback and thank you for choosing us for your care.\.br\ \.br\ [facility] General Surgery Office/Clini c Noteon 01-23-2024 General Surgery Office/Clinic Note Chief Complaint post operative follow up HPI Staff 13 day post operative follow up post excisional biopsy left breast mass. Denies discomfort, bleeding or drainage. History of Present Illness 13 days s/p excisional biopsy left breast granuloma and ductal excision; pathology with 1.7 cm invasive ductal carcinoma, grade 2; ER/MI +; HER2 pending; superior margin positive for invasive cancer; patient did have fistula to nipple with intermittent discharge; major ductal excision performed; denies pain or drainage from incision; no tobacco use; no fmhx of breast or ovarian cancers; no previous XRT to chest wall. Review of Systems ROS - Provider Constitutional: [...] and are negative or noncontributory. Physical Exam HEENT: normal conjunctiva, sclera clear, no scleral icterus, EOM intact, PERRLA. oral mucosa moist without lesions Neck: trachea midline , no mass, symmetric, no thyromegaly or nodules. no adenopathy Respiratory: lungs CTA, respirations non labored. Cardiovascular: regular rate and rhythm, no murmur, , no pedal edema or varicosities. Chest (Breasts): no discharge, no palpable breast or axillary lumps, masses or tenderness; left areolar incison healing well, no erythema or drainage Gastrointestinal: soft, non distended, no tenderness, no masses, no palpable hernias, diastasis recti no, no hepatosplenomegaly. normal bs Lymphatic: no cervical adenopathy, no axillary adenopathy, no supraclavicular adenopathy. Musculoskeletal: normal gait, digits and nails without infection, nodes, cyanosis, clubbing. Skin: no rashes, no lesions, no ulcers, no subcutaneous nodules, induration. Psychiatric/Neuro: oriented to time, place, person, judgement normal, affect appropriate for age, insight intact, no focal deficits. Tests: labs reviewed, x-rays reviewed, review of old records completed , Discussed surgical options, risks, and possible complications with patient. Assessment/Plan 1. Breast cancer of lower-inner quadrant of left female breast (C50.312: Malignant neoplasm of lower-inner quadrant of left female breast) with positive superior margin and major ductal involvement, patient will require mastectomy with sentinel lymph node biopsy, procedure explained in detail, questions answered; she is interested in reconstruction of the breast; will refer to Dr Bustamante; also to Medical Oncology; follow up after evaluations; call with problems/questions. Ordered: [facility] External Ambulatory Referral [facility] External Ambulatory Referral Follow-up No qualifying data available Problem List/Past Medical History Ongoing Abnormal EKG ADHD Anxiety BMI 25.0-25.9,adult Breast cancer of lower-inner quadrant of left female breast Complex regional pain syndrome of lower limb Dysuria Essential tremor Generalized anxiety disorder HTN (hypertension) Hx of osteoarthritis Idiopathic polyneuropathy Mass of left breast Nipple discharge Pre-op exam Scoliosis Historical Polyneuropathy RSD lower limb Procedure/Surgical History Excision of breast mass (01/10/2024), Biopsy of breast (06/27/2023), Arthroscopy of knee (06/04/1995), Appendectomy, Cholecystectomy, Extraction of wisdom tooth, Foot, Simple dental extraction, DEAN BSO - Total abdominal hysterectomy and bilateral salpingo-oophorectomy, Tonsillectomy and adenoidectomy. Medications alprazolam 0.25 mg Tab, 0.25 mg= 1 tab(s), Oral, TID aspirin 81 mg Oral EC Tab cyclobenzaprine 10 mg Tab, 10 mg= 1 tab(s), Oral, Bedtime, PRN, 3 refills gabapentin 300 mg Cap, 300 mg= 1 cap(s), Oral, BID, 3 refills Hyzaar 12.5 mg-50 mg Tab, 1 tab(s), Oral, Daily, 3 refills Allergies Entex (Unknown) Skelaxin (Unknown) corticosteroids (Anaphylaxis) Social History Alcohol - Denies Alcohol Use, 06/20/2023 Alcohol use interferes with work or home: No., 11/08/2022 Substance Abuse Current, Marijuana, Daily, (more content not included)... Normal [facility] Comment on above: Result Comment: Elec tronically Signed By: APARNA PRATT, Roshan Hargrove\Date and Time Signed: 01/23/24 15:20 EDT Pathology Noteon 01-22-2024 Pathology Note [id number] Normal [facility] Pathology Noteon 01-19-2024 Pathology Note [id number] Normal [facility] General Surgery Office/Clini c Noteon 01-18-2024 General Surgery Office/Clinic Note Chief Complaint post operative follow up HPI Staff 6 day post operative follow up post excisional biopsy left breast granuloma with ductal excision. Reports minimal discomfort. Taking Percocet once per day. Denies bleeding, drainage or significant bruising. History of Present Illness 6 days s/p excisional biopsy granuloma left breast with major ductal excision; doing well, denies pain or drainage, no nipple discharge. Review of Systems ROS - Provider Constitutional: [...] and are negative or noncontributory. Physical Exam skin: incision healing well, no erythema or drainage, no ecchymosis; no nipple discharge. Assessment/Plan 1. Mass of left breast (N63.23: Unspecified lump in the left breast, lower outer quadrant) healing well, pathology pending; keep incision clean and dry; follow up in 2 weeks, will call patient with pathology results, call sooner if problems/questions. 2. Nipple discharge (N64.52: Nipple discharge) see # 1 Follow-up No qualifying data available Problem List/Past Medical History Ongoing Abnormal EKG ADHD Anxiety BMI 25.0-25.9,adult Complex regional pain syndrome of lower limb Dysuria Essential tremor Generalized anxiety disorder HTN (hypertension) Hx of osteoarthritis Idiopathic polyneuropathy Mass of left breast Nipple discharge Pre-op exam Scoliosis Historical Polyneuropathy RSD lower limb Procedure/Surgical History Excision of breast mass (01/10/2024), Biopsy of breast (06/27/2023), Arthroscopy of knee (06/04/1995), Appendectomy, Cholecystectomy, Extraction of wisdom tooth, Foot, Simple dental extraction, DEAN BSO - Total abdominal hysterectomy and bilateral salpingo-oophorectomy, Tonsillectomy and adenoidectomy. Medications alprazolam 0.25 mg Tab, 0.25 mg= 1 tab(s), Oral, TID aspirin 81 mg Oral EC Tab cyclobenzaprine 10 mg Tab, 10 mg= 1 tab(s), Oral, Bedtime, PRN, 3 refills gabapentin 300 mg Cap, 300 mg= 1 cap(s), Oral, BID, 3 refills Hyzaar 12.5 mg-50 mg Tab, 1 tab(s), Oral, Daily, 3 refills Allergies Entex (Unknown) Skelaxin (Unknown) corticosteroids (Anaphylaxis) Social History Alcohol - Denies Alcohol Use, 06/20/2023 Alcohol use interferes with work or home: No., 11/08/2022 Substance Abuse Current, Marijuana, Daily, 06/20/2023 Tobacco Former smoker, quit more than 30 days ago Tobacco Use:. Never Smokeless Tobacco Use:. Cigarettes, Household tobacco concerns: No., 10/02/2023 Family History Primary malignant neoplasm of lung: Mother. Immunizations Vaccine Date Status Comments influenza virus vaccine, inactivated - Not Given Patient Refuses influenza virus vaccine, inactivated - Not Given Patient Refuses SARS-CoV-2 mRNA (tozinameran 5y-11y) vac - Not Given Postpone due to refusal [facility] Comment on above: Result Comment: Elec tronically Signed By: APARNA PRATT, Roshan Koch.br\Date and Time Signed: 01/18/24 15:09 EDT Operative Reporton Operative Report [id number] [facility] Placido 01-10-2024 L Specimen: [id number] Received: 01/11/24 Status: ROC Req Num: [id number] Spec Type: Surgical Subm Dr: Roshan Chaney MD FACS Tissues: A BREAST CORE NO CALCS (LT BREAST GRANULOMA 7:00) Procedures: HE/18, Gross/Micro L4, CK5 6, E CADHERIN, ER, MI, IHC First AB, IHC Add AB/3 Age/ Patient Sex Location Account Attending Physician Adelina Mir 63/F LABELL [id number] Roshan Chaney MD FACS SPEC NUM: [id number] RECD: 01/11/24 STATUS: ROC REQ NUM: [id number] MAYRA: 01/10/[address]: Roshan Chaney MD FACS ENTERED: 01/11/24 [facility] DR: Mary Beth Young SPEC TYPE: Surgical DEPT: CELENA GAUTAM ORDERED: HE/18, Gross/Micro L4, CK5 6, E CADHERIN, ER, MI, IHC First AB, IHC Add AB/3 ORDERED: HE/18, Gross/Micro L4, CK5 6, E CADHERIN, ER, MI, IHC First AB, IHC Add AB/3 Supplemental Report Addendum 1 Entered: 01/25/24 HER2/pat by immunostain: Negative (1+). See attached report. Addendum Signed (signature on file) Vick Ingram MD 01/25/241933 Pathological Diagnosis Mass, left breast, 7:00, lumpectomy: Invasive ductal carcinoma. Tumor Is 1.7 Cm In Greatest Dimension. Grade 2/ Moderately Differentiated. Tumor is present at the superior surgical margin. Tumor Is less than 0.1 Cm From The anterior and lateral surgical Margins. No Evidence Of Lymphovascular Invasion. Specimen: [id number] Received: 01/11/24-1328 Status: ROC Rapp Num: [id number] Spec Type: Surgical Subm Dr: Roshan Chaney MD FACS Tissues: A BREAST CORE NO CALCS ( BREAST GRANULOMA 7:00) Procedures: HE/18, Gross/Micro L4, CK5 6, E CADHERIN, ER, MI, IHC First AB, IHC Add AB/3 Patient: Adelina Mir [id number] (Continued) Specimen: [id number] Received: 01/11/24 (Continued) Pathological Diagnosis (Continued) Signed (signature on file) Vick Ingram MD 01/18/241827 Specimen: [id number] Received: 01/11/24 Status: ROC Rapp Num: [id number] Spec Type: Surgical Subm Dr: Roshan Chaney MD FACS Tissues: A BREAST CORE NO CALCS ( BREAST GRANULOMA 7:00) Procedures: HE/18, Gross/Micro L4, CK5 6, E CADHERIN, ER, MI, IHC First AB, IHC Add AB/3 Patient: Adelina Mir [id number] (Continued) Specimen: [id number] Received: 01/11/24 (Continued) Pathological Diagnosis (Continued) Breast Hormone Profile ? ER:? Positive ? MI:? Positive ? Her2: Pending CAP CANCER CASE SUMMARY SPECIMEN Procedure: Excision (less than total mastectomy) Specimen Laterality: Left TUMOR Histologic Type: Invasive carcinoma of no special type (ductal) Glandular (Acinar) / Tubular Differentiation: Score 3 Nuclear Pleomorphism: Score 2 Mitotic Rate: Score 2 Overall Grade: Grade 2 (scores of 6 or 7) Tumor Size: Greatest dimension of largest invasive focus (Millimeters) - 17 mm Ductal Carcinoma In Situ (DCIS): Absent Lymphatic and / or Vascular Invasion: Not identified Treatment Effect in the Breast: No known presurgical therapy MARGINS Margin Status for Invasive Carcinoma: Invasive carcinoma present at margin Margin(s) Involved by Invasive Carcinoma: Superior REGIONAL LYMPH NODES None identified. pTNM CLASSIFICATION (AJCC 8th Edition) Reporting of pT, pN, and (when applicable) pM categories is based on information available to the pathologist at the time the report is issued. As per the AJCC (Chapter 1, 8th Ed.) it is the managing physician's responsibility to establish the final pathologic stage based upon all pertinent information, including but potentially not limited to this pathology report. pT Category: pT1c pN Category: pNx Specimen: [id number] Received: 01/11/24 Status: ROC Casillasramin Num: [id number] Spec Type: Surgical Subm Dr: Roshan Chaney MD FACS Tissues: A BREAST CORE NO CALCS ( BREAST GRANULOMA 7:00) Procedures: HE/18, Gross/Micro L4, CK5 6, E CADHERIN, ER, MI, IHC First AB, IHC Add AB/3 Patient: Adelina Mir [id number] (Continued) (more content not included)... Normal [facility] Consent for Procedure/Surger yon 01-03-2024 Consent for Procedure/Surgery [id number] [facility] Lab Reportson 01-03-2024 Lab Reports [id number] Normal [facility] Ambulatory Visit Summaryon 0 01-02-2024 Ambulatory Visit Summary MICHAELADELINA :1960 Visit Date:01/02/2024 Ambulatory Visit Instructions Your Care Team Attending Physician - APARNA PRATT, Roshan Horner Primary Care Physician - Kishan PRATT, Michael Barker This Is Your Medications List alprazolam (alprazolam 0.25 mg Tab) aspirin (aspirin 81 mg Oral EC Tab) cyclobenzaprine (cyclobenzaprine 10 mg Tab) gabapentin (gabapentin 300 mg Cap) hydrochlorothiazide-losar lemus (Hyzaar 12.5 mg-50 mg Tab) Procedures Performed Biopsy of breast (06/27/2023), Arthroscopy of knee (06/04/1995), Appendectomy, Cholecystectomy, Extraction of wisdom tooth, Foot, Simple dental extraction, DEAN BSO - Total abdominal hysterectomy and bilateral salpingo-oophorectomy, Tonsillectomy and adenoidectomy. Discharge Vitals Heart Rate (Peripheral) 72 Respiratory Rate 16 Blood Pressure 132/86 Height 170 cm Height 67 in Weight 72.4 kg Weight 159.28 lb BMI 25.05 What to do next Scheduled Follow-Up Appointments Monday 1:00 PM EDT With: Kishan PRATT, Michael Barker Where: [facility] [place] Normal [facility] General Surgery Office/Clini c Noteon 01-02-2024 General Surgery Office/Clinic Note Chief Complaint update H&P HPI Staff Presents to update H&P for scheduled left breast ductal excision/excision mass/granuloma. Last evaluation completed 08/09/23. Reports decrease in frequency of discharge; reports she is experiencing discharge only once per week instead of daily as previous. Verbalized discharge remains clear. History of Present Illness 63 yo female with h/o htn, ADHD, JOHN, osteoarthritis; presents for reevaluation of left nipple discharge/granuloma; was scheduled for ductal excision/excision granuloma after nondiagnostic core bx; rescheduled due to cardiac workup, then family emergency; reports less nipple discharge on left; some soreness. on baby asa daily, no NSAID use; no tobacco use. Review of Systems PHQ Score Initial Depression Screen Score: 0 SCORE ROS - Provider Constitutional: no fever, no [...] & Measurements HR: 72(Peripheral) RR: 16 BP: 132/86 HT: 67 in HT: 170 cm WT: 72.4 kg WT: 159.28 lb BMI: 25.05 HEENT: normal conjunctiva, sclera clear, no scleral icterus, EOM intact, PERRLA. oral mucosa moist without lesions Neck: trachea midline , no mass, symmetric, no thyromegaly or nodules. no adenopathy Respiratory: lungs CTA, respirations non labored. Cardiovascular: regular rate and rhythm, no murmur, , no pedal edema or varicosities. Chest (Breasts): left breast with clear nipple discharge, lateral inferior duct; palpable 1 cm nodule at 5 o'clock position, tender, nipple discharge when compressed, no skin changes; right breast without skin or nipple changes, no dominant masses. Gastrointestinal: soft, non distended, no tenderness, no masses, no palpable hernias, diastasis recti no, no hepatosplenomegaly. normal bs Lymphatic: no cervical adenopathy, no axillary adenopathy, no supraclavicular adenopathy. Musculoskeletal: normal gait, digits and nails without infection, nodes, cyanosis, clubbing. Skin: no rashes, no lesions, no ulcers, no subcutaneous nodules, induration. Psychiatric/Neuro: oriented to time, place, person, judgement normal, affect appropriate for age, insight intact, no focal deficits. Tests: labs reviewed, x-rays reviewed, review of old records completed , Discussed surgical options, risks, and possible complications with patient. Assessment/Plan 1. Nipple discharge (N64.52: Nipple discharge) plan left breast ductal excision/excision left lower outer quadrant granuloma under anesthesia, informed consent obtained. Ancef 2 gms IV prior to OR SCDs 2. Mass of left breast (N63.23: Unspecified lump in the left breast, lower outer quadrant) see # 1 Follow-up No qualifying data available Problem List/Past Medical History Ongoing Abnormal EKG ADHD Anxiety BMI 25.0-25.9,adult Complex regional pain syndrome of lower limb Dysuria Essential tremor Generalized anxiety disorder HTN (hypertension) Hx of osteoarthritis Idiopathic polyneuropathy Mass of left breast Nipple discharge Pre-op exam Scoliosis Historical Polyneuropathy RSD lower limb Procedure/Surgical History Biopsy of breast (06/27/2023), Arthroscopy of knee (06/04/1995), Appendectomy, Cholecystectomy, Extraction of wisdom tooth, Foot, Simple dental extraction, DENA BSO - Total abdominal hysterectomy and bilateral salpingo-oophorectomy, Tonsillectomy and adenoidectomy. Medications alprazolam 0.25 mg Tab, 0.25 mg= 1 tab(s), Oral, TID aspirin 81 mg Oral EC Tab cyclobenzaprine 10 mg Tab, 10 mg= 1 tab(s), Oral, Bedtime, PRN, 3 refills gabapentin 300 mg Cap, 300 mg= 1 cap(s), Oral, BID, 3 refills Hyzaar 12.5 mg-50 mg Tab, 1 tab(s), Oral, Daily, 3 refills Allergies Entex (Unknown) Skelaxin (Unknown) corticosteroids (Anaphylaxis) Social History Alcohol - Denies Alcohol Use, 06/20/2023 Alcohol use interferes with work or home: No., 11/08/2022 Substance Abuse Current, (more content not included)... Normal [facility] Comment on above: Result Comment: Elec tronically Signed By: APARNA PRATT, Roshan Horner\.oh\Date and Time Signed: 01/02/24 16:28 EDT Insurance Correspondenceon 0 12-25-2023 Insurance Correspondence [id number] [facility] Family Medicine Office/Clini c Noteon 11-28-2023 Family Medicine Office/Clinic Note HPI Staff Adelina is a 63 year old female presenting for follow up BP and cardiology visit ( abn EKG) Saw Dr Paul 10/30/23, negative lexiscan and carotid US <50 stenosis on right and left both done 10/24/23 Also f/u anxiety and meds check for alprazolam Follow up for Mental Status: Medication adherence- Yes, takes medication as prescribed Medication refill needed: no Suicidal thoughts-Not at this time Most recent JOHN: 9 Most recent PHQ: 0 Med consent: due today UDS: UTD Jul 2023 questions/concerns: hasn't had the lumpectomy yet due to the elevated BP and then the abnormal EKG, all testing fine so now scheduled December 05 for the lumpectomy History of Present Illness Adelina Mir is a 63-year-old female who presents for evaluation of multiple medical concerns. She has a biopsy for her breast scheduled on 12/06/2023. She continues to take losartan and baby aspirin as prescribed. Her clinical team lead diagnosed her with white coat syndrome. Review of Systems PHQ Score Initial Depression Screen Score: 0 SCORE Physical Exam Vitals & Measurements T: 36.8 ?C(Oral) HR: 80(Peripheral) RR: 16 BP: 120/78 SpO2: 98% HT: 67 in HT: 170 cm WT: 68.5 kg WT: 150.7 lb BMI: 23.7 General: alert, no acute distress ENMT: oral mucosa moist, no pharyngeal erythema or exudate Cardiovascular: regular rate and rhythm, normal peripheral perfusion Respiratory: Lungs CTA, respirations non labored Extremities: no deformity, no trauma Neurological: oriented x 4, LOC appropriate for age, CN II-XII intact, motor strength equal & normal bilaterally, speech normal Assessment/Plan 1. Abnormal EKG (R94.31: Abnormal electrocardiogram [ECG] [EKG]) The patient did have a stress test done on 10/24/2023, which was normal, completely normal. EF of 50 percent, so no concerns with this. 2. Anxiety (F41.9: Anxiety disorder, unspecified) This is well controlled with as needed Xanax. We will continue to monitor. Controlled substance agreement signed. [place]AR[place] reviewed. 3. BMI 23.0-23.9, adult (Z68.23: Body mass index [BMI] 23.0-23.9, adult) BMI education given. 4. Former smoker (Z87.891: Personal history of nicotine dependence) I encouraged the patient to continue not to smoke. 5. Mass of left breast (N63.23: Unspecified lump in the left breast, lower outer quadrant) This will be removed next month to help to figure out what exactly this mass is. 6. HTN (hypertension) (I10: Essential (primary) hypertension) The patient is on hydrochlorothiazide and losartan, doing well. Blood pressure is well controlled. We will continue to monitor. Follow-up The patient will follow up in 3 months for reevaluation of her anxiety. Portions of this record may have been created with voice recognition artificial intelligence software, specifically [employer], [employer] and or [employer]. Substitutions may have occurred due to the inherent limitations of voice recognition and artificial intelligence software. Documentation services were performed after patient or guardian consented to allow [employer] to record this visit. JONATHAN communications specialist and provider reviewed before signing. JONATHAN: Lucy Hines Follow-up No qualifying data available Problem List/Past Medical History Ongoing Abnormal EKG ADHD Anxiety BMI 24.0-24.9, adult Complex regional pain syndrome of lower limb Dysuria Essential tremor Generalized anxiety disorder HTN (hypertension) Hx of osteoarthritis Idiopathic polyneuropathy Mass of left breast Nipple discharge Pre-op exam Scoliosis Historical Polyneuropathy RSD lower limb Procedure/Surgical History Biopsy of breast (06/27/2023), Arthroscopy of knee (06/04/1995), Appendectomy, Cholecystectomy, Extraction of wisdom tooth, Foot, Simple dental extraction, DEAN BSO - Total abdominal hysterectomy and bilateral salpingo-oophorectomy, Tonsillectomy and adenoidectomy. Medications alprazolam 0.25 mg Tab, 0.25 mg= 1 tab(s), Oral, TID aspirin 81 mg Oral EC Tab cyclobenzaprine 10 mg Tab, 10 mg= 1 tab(s), Oral, Bedtime, PRN, 3 refills gabapentin 300 mg Cap, 300 mg= 1 cap(s), Oral, BID, 3 refills Hyzaar 12.5 mg-50 mg Tab, 1 tab(s), Oral, Daily, 3 refills Allergies Entex (Unknown) Skelaxin (Unknown) corticosteroids (Anaphylaxis) Social History Alcohol - Denies Alcohol Use, 06/20/2023 Alcohol use interferes with work or home: No., 11/08/2022 Substance Abuse Current, Marijuana, Daily, 06/20/2023 Tobacco Former smoker, quit more than 30 days ago Tobacco Use:. Never Smokeless Tobacco Use:. Cigarettes, Household tobacco concerns: No., 10/02/2023 Family History Primary malignant neoplasm of lung: Mother. Immunizations Vaccine Date Status Comments influenza virus vaccine, inactivated - Not Given Patient Refuses influenza virus vaccine, inactivated - Not Given Patient Refuses SARS-CoV-2 mRNA (tozinameran 5y-11y) vac - Not Given Postpone due to refusal [facility] Comment on above: Result Comment: Elec tronically Signed By: Michael Holley MD\.br\Date and Time Signed: 11/28/23 15:21 EDT\.br\Electronically Co-Signed By: Lucy Hines\.br\Date and Time Co-Signed: 11/27/23 15:18 EDT Medication Consenton 024 Medication Consent [id number] [facility] Ambulatory Visit Summaryon 0 11-27-2023 Ambulatory Visit Summary ADELINA MIR :1960 Visit Date:11/27/2023 Ambulatory Visit Instructions Your Diagnosis Abnormal EKG Anxiety BMI 23.0-23.9, adult Former smoker Your Care Team Attending Physician - Michael Holley MD Primary Care Physician - Michael Holley MD This Is Your Medications List alprazolam (alprazolam 0.25 mg Tab) aspirin (aspirin 81 mg Oral EC Tab) cyclobenzaprine (cyclobenzaprine 10 mg Tab) gabapentin (gabapentin 300 mg Cap) hydrochlorothiazide-losar lemus (Hyzaar 12.5 mg-50 mg Tab) Procedures Performed Biopsy of breast (06/27/2023), Arthroscopy of knee (06/04/1995), Appendectomy, Cholecystectomy, Extraction of wisdom tooth, Foot, Simple dental extraction, DEAN BSO - Total abdominal hysterectomy and bilateral salpingo-oophorectomy, Tonsillectomy and adenoidectomy. Discharge Vitals Temperature (Oral) 36.8 ?C Heart Rate (Peripheral) 80 Respiratory Rate 16 Blood Pressure 120/78 Height 170 cm Height 67 in Weight 68.5 kg Weight 150.7 lb BMI 23.7 What to do next Scheduled Follow-Up Appointments Monday 1:00 PM EDT With: Michael Holley MD Where: [facility] Family [facility] Consent for Procedure/Surger yon 11-01-2023 Consent for Procedure/Surgery [id number]#1.00TIFF [facility] Consent for Treatmenton 10-06 Consent for Treatment [id number]#1.00TIFF Normal [facility] Formson 10-31-2023 Forms Sent with office vis it note to Dr. Chaney's office [id number]#1.00TIFF Normal [facility] Heart and Vascular Office/Cl inic Noteon 10-31-2023 Heart and Vascular Office/Clinic Note History of Present Illness Patient is a very pleasant 63-year-old with idiopathic polyneuropathy, recently diagnosed with a breast lump and requires lumpectomy dated to take place on 09/13/2023. Patient underwent preop testing with an EKG on 09/05/2023 which showed normal sinus rhythm, normal axis, normal intervals, left ventricular hypertrophy by voltage and left atrial enlargement. Patient states that she had some nipple discharge and was sent for cytology and reportedly negative however that she has a lump in her breast and requires surgical removal. She is a previous smoker of approximately 30 pack years who quit around 20 years ago. Patient denies any chest pain or angina however she does have dyspnea on exertion although she does have chronic feet pain due to neuropathy. She has never been told she had any cardiac issues or illnesses. Patient underwent a 2D echo with Doppler on 10/24/2023 with the following results: (10/24/2023 11:57 EST Echo Transthoracic Complete) Interpretation Summary Normal LV and RV. No significant valve disease. Normal estimated PA pressure. Impaired diastolic relaxation. Severe LVH. Global peak strain ave = -12.7% Ejection Fraction = 55-60%. [1] In addition he underwent a carotid ultrasound in 10/24/2023 with the following results: (10/24/2023 10:23 EST US Carotid Duplex Bilateral) IMPRESSION: NEGATIVE STUDY. NO EVIDENCE OF SIGNIFICANT STENOSIS. Less than 50% stenosis seen on the right and left. [2] As part of her restratification she underwent a stress/MPI on 10/24/2023 with the following results: (10/24/2023 15:00 EST NM Myocardial Spect Rest/Stress 1 Day) CONCLUSIONS: Negative Lexiscan stress test. Overall low risk stress. Of note, ejection fraction of 50% and some artifact diminishes sensitivity of this test. [3] Patient is here to go over her testing. Testing results given to the patient. From a cardiac standpoint she denies any chest pain, angina but does complain of some mild dyspnea on exertion. She feels much better with blood pressure control. In our office today her blood pressure is 132/82 with a pulse of 90 and regular. Physical exam demonstrates clear lungs bilaterally, 2+ carotid upstroke with a loud right-sided bruit isolated to the clavicular area, regular rate and rhythm with a 3/6 systolic ejection murmur best heard at the upper right sternal border, no diastolic murmurs, no S3, S4 or edema noted.. Lipids are pending. EKG is as above. Review of Systems Constitutional: no fever, no chills, no weakness, no fatigue Respiratory: no shortness of breath, no cough, no orthopnea, no wheezing Cardiovascular: no chest pain, no palpitations, no edema Neuro: no dizziness no light headed no syncope Additional ROS info: Except as noted in the above Review of Systems and in the History of Present Illness all other systems have been reviewed and are negative or noncontributory. Physical Exam General: alert, no acute distress Neck: Supple, noJVD nocarotid bruit Cardiovascular: regular rate and rhythm, no murmur normal peripheral perfusion Respiratory: Lungs CTA, respirations non labored Extremities: no edema Neurological: oriented x 4, LOC appropriate for age, sensation equal & normal bilaterally, speech normal Skin: Warm, dry, intact- no rash or concerning lesions Assessment/Plan 1. Preoperative risk stratification: Patient is at low risk for noncardiac surgery and is asymptomatic at this time. No additional testing needed at this time. Her blood pressure and heart rate are excellent control with Hyzaar. Continue Hyzaar therapy. Once her surgeries been completed and healed we would recommend starting baby aspirin for her nonobstructive carotid disease. 2. Tobacco abuse: The patient does not smoke cigarettes but she does smoke marijuana cigarettes. I recommended that she discontinue all THC cigarettes going forward. 3. Return office in 6 months. Ordered: Echo Transthoracic Complete Follow-up No qualifying data available Problem List/Past Medical History Ongoing Abnormal EKG ADHD Anxiety BMI 24.0-24.9, adult Complex regional pain syndrome of lower limb Dysuria Essential tremor Generalized anxiety disorder HTN (hypertension) Hx of osteoarthritis Idiopathic polyneuropathy Mass of left breast Nipple discharge Pre-op exam Scoliosis Historical Polyneuropathy RSD lower limb Procedure/Surgical History Biopsy of breast (06/27/2023), Arthroscopy of knee (06/04/1995), Appendectomy, Cholecystectomy, Extraction of wisdom tooth, Foot, Simple dental extraction, DEAN BSO - Total abdominal hysterectomy and bilateral salpingo-oophorectomy, Tonsillectomy and adenoidectomy. Medications alprazolam 0.25 mg Tab, 0.25 mg= 1 tab(s), Oral, TID cyclobenzaprine 10 mg Tab, 10 mg= 1 tab(s), Oral, Bedtime, PRN, 3 refills gabapentin 300 mg Cap, 300 mg= 1 cap(s), Oral, BID, 3 refills Hyzaar 12.5 mg-50 mg Tab, 1 tab(s), Oral, Daily, 3 refills Allergies Entex (Unknown) Pinkyela (more content not included)... Normal [facility] Comment on above: Result Comment: Elec tronically Signed By: BEVERLY PRATT, Osmin Pool\.br\Date and Time Signed: 10/31/23 14:46 EST NM Myocardial Spect Rest/Str ess 1 Dayon 10-31-2023 NM Myocardial Spect Rest/Stress 1 Day Exam Date/Time: 10/24/2023 15:00 EST Reason for Exam: Chest pain/anginal equiv, high CAD risk, not treadmill candidate;Other (please specify) Report PROCEDURE: Lexiscan nuclear stress test. INDICATIONS: Chest pain. PROCEDURE DETAILS: The patient was stressed according to Lexiscan protocol. The patient had no symptoms. The heart rate and blood pressure response were appropriate. The patient's baseline EKG was sinus bradycardia with left ventricular hypertrophy, repolarization changes. With peak infusion, the heart rate increased but there were no EKG changes. Recovery phase was normal. The patient received 10.0 mCi of Cardiolite for rest images and 29.9 mCi of Cardiolite for stress images. Review of raw images demonstrated some motion artifact. FINDINGS: Uptake of the tracer was generally homogeneous with no clearly identifiable ischemia or infarction. The TID ratio was 0.98. The ejection fraction was 50%. End-diastolic volume was 117 mL. CONCLUSIONS: Negative Lexiscan stress test. Overall low risk stress. Of note, ejection fraction of 50% and some artifact diminishes sensitivity of this test. FINAL REPORT Signed (Electronic Signature): 10/31/2023 11:27 am Signed by: Roberto Sosa MD Transcribed by: katherine Technologist: MEGGAN Technical Comments Rest Dose (mCi Tc99m Cardiolite): 10 Stress Dose (mCi Tc99M Cardiolite): 29.[address] [facility] Physician Orderon 10-31-2023 Physician Order [id number]#1.00TIFF Normal [facility] US Carotid Duplex Bilateralo n 10-25-2023 US Carotid Duplex Bilateral Exam Date/Time: 10/24/2023 10:23 EST Reason for Exam: R09.89;Bruit Report [facility] [phone] IMPRESSION: NEGATIVE STUDY. NO EVIDENCE OF SIGNIFICANT STENOSIS. Less than 50% stenosis seen on the right and left. CLINICAL HISTORY: Bruit, R09.89 COMPARISON: NONE. COMMENT: Mild plaques are identified at the carotid bifurcation. There is antegrade blood flow in the right and left vertebral arteries in the neck. On Doppler images, the peak systolic velocity measurements in centimeters per second are as follows: Right proximal common carotid artery is 85.7 / 16.2, right distal common carotid artery is 69.6 / 19.9, right proximal internal carotid artery is 115.0 / 33.5, right mid internal carotid artery is 120.0 / 24.9, right distal internal carotid artery is 93.8 / 28.0, right external carotid artery is 138.0 cm/s, left proximal common carotid artery is 96.7 / 24.5, left distal common carotid artery is 86.2 / 22.4, left proximal internal carotid artery is 84.1 / 23.1, left mid internal carotid artery is 106.0 / 28.7, left distal internal carotid artery is 107.0 / 35.7, left external carotid artery is 161.0 cm/s. The peak systolic internal carotid to common carotid artery ratio on the right is 1.7 and on the left is 1.2. Optimization of duplex velocity criteria for diagnosis of internal carotid artery (ICA) stenosis: A report of the Intersocietal Accreditation Commission (IAC) Vascular Testing Division Carotid Diagnostic Criteria Committee. Vascular Medicine 2020; https://journals.[employer] Systemspub. com/doi/full/10.1177/1358 021R566329133 Ordering Provider: Osmin PAUL FINAL REPORT Dictated: 10/25/2023 10:17 am Arnold Tyler Signed (Electronic Signature): 10/25/2023 10:17 am Signed by: Arnold Tyler Transcribed by: ROSMERY Technologist: SILVESTRE Technical Comments Velocities Right Vert. Antegrade Yes Velocities Left Vert. Antegrade No Normal [facility] Consent for Treatmenton 10-06 Consent for Treatment [id number]#[id number] Normal [facility] Family Medicine Office/Clini c Noteon 10-11-2023 Family Medicine Office/Clinic Note HPI Staff Adelina is a 62 year old female presenting for 3 week follow up VERO couldn't clear for surgery for excision breast lump, due to abn EKG was to consult with cardiology flu: due questions/concerns: History of Present Illness Adelina Mir is a 63-year-old female who presents today for a follow-up evaluation. She was expecting a call about her stress test, scheduled to be conducted at [facility]. She had two previous appointments and was told by the facility that due to a busy day, faxing the paperwork would expedite the process. Despite reaching out for updates, she has not received any responses. She speculated that the delays could be due to but was informed that there was an issue with her insurance. She did receive a letter approving her lumpectomy, but no further information about the stress test. She informed Dr. Chaney's office that the procedure had been postponed. She is concerned about causing inconvenience to others due to changes in the schedule. She is currently on Losartan, with a refill already provided. She is also due for Xanax on 10/21/2023. Physical Exam Vitals & Measurements HR: 76(Peripheral) BP: 124/82 SpO2: 96% HT: 67 in HT: 170 cm WT: 69.7 kg WT: 153.34 lb BMI: 24.12 General: alert, no acute distress Cardiovascular: regular rate and rhythm, normal peripheral perfusion Respiratory: Lungs CTA, respirations non labored Extremities: no deformity, no trauma Neurological: oriented x 4, LOC appropriate for age, CN II-XII intact, motor strength equal & normal bilaterally, speech normal Assessment/Plan 1. Mass of left breast (N63.23: Unspecified lump in the left breast, lower outer quadrant) We are still unable to clear the patient because of the abnormal EKG. The patient was supposed to have testing done by cardiology, however, she was not able to get scheduled at the [facility], so at this time this is at hold to be removed. 2. Primary hypertension (I10: Essential (primary) hypertension) The patient's blood pressure is at goal today. No other concerns. 3. Anxiety (F41.9: Anxiety disorder, unspecified) The patient is doing okay, but very stressed about not having an answer for this abnormal stress test. We will go ahead and refill her Xanax. They are not due until 10/21/2023, but we will go ahead and do it so that she does have to call for refill. I will see her back in 2 months' time so that we can discuss further her other medical issues. 4. Non-smoker (Z78.9: Other specified health status) Please continue not to smoke. 5. BMI 24.0-24.9, adult (Z68.24: Body mass index [BMI] 24.0-24.9, adult) BMI education given. 6. Abnormal EKG (R94.31: Abnormal electrocardiogram [ECG] [EKG]) Discussed this with my nursing staff. They are working to get all of this scheduled GEORGETTE through [facility] now since the patient was unable to get it done at [facility]. The patient will let us know when this is done and we will try to get her cleared as soon as possible for her lumpectomy. Portions of this record may have been created with voice recognition artificial intelligence software, specifically [employer], [employer] and or The [employer] travel. Substitutions may have occurred due to the inherent limitations of voice recognition and artificial intelligence software. Documentation services were performed after patient or guardian consented to allow [employer] to record this visit. JONATHAN communications specialist and provider reviewed before signing. JONATHAN: Lucy Hines Follow-up No qualifying data available Patient Education BMI for Adults Problem List/Past Medical History Ongoing Abnormal EKG ADHD Anxiety BMI 24.0-24.9, adult Complex regional pain syndrome of lower limb Dysuria Essential tremor Generalized anxiety disorder HTN (hypertension) Hx of osteoarthritis Idiopathic polyneuropathy Mass of left breast Nipple discharge Pre-op exam Scoliosis Historical Polyneuropathy RSD lower limb Procedure/Surgical History Biopsy of breast (06/27/2023), Arthroscopy of knee (06/04/1995), Appendectomy, Cholecystectomy, Extraction of wisdom tooth, Foot, Simple dental extraction, DEAN BSO - Total abdominal hysterectomy and bilateral salpingo-oophorectomy, Tonsillectomy and adenoidectomy. Medications alprazolam 0.25 mg Tab, 0.25 mg= 1 tab(s), Oral, TID cyclobenzaprine 10 mg Tab, 10 mg= 1 tab(s), Oral, Bedtime, PRN, 3 refills gabapentin 300 mg Cap, 300 mg= 1 cap(s), Oral, BID, 3 refills Hyzaar 12.5 mg-50 mg Tab, 1 tab(s), Oral, Daily, 3 refills Allergies Entex (Unknown) Skelaxin (Unknown) corticosteroids (Anaphylaxis) Social History Alcohol - Denies Alcohol Use, 06/20/2023 Alcohol use interferes with work or home: No., 11/08/2022 Substance Abuse Current, Marijuana, Daily, 06/20/2023 Tobacco Former smoker, quit more than 30 days ago Tobacco Use:. Never Smokeless Tobacco Use:. Cigarettes, Household tobacco concerns: (more content not included)... Normal [facility] Comment on above: Result Comment: Elec tronically Signed By: Michael Holley MD\.br\Date and Time Signed: 10/11/23 10:22 EST\.br\Electronically Co-Signed By: Lucy Hines\.br\Date and Time Co-Signed: 10/02/23 14:56 EST\.br\Electronically Co-Signed By: Lucy Hines\.br\Date and Time Co-Signed: 10/04/23 19:46 EST Ambulatory Visit Summaryon 0 10-02-2023 Ambulatory Visit Summary ADELINA MIR :1960 Visit Date:10/02/2023 Ambulatory Visit Instructions Your Diagnosis Mass of left breast Primary hypertension Your Care Team Attending Physician - Michael Holley MD. Primary Care Physician - Michael Holley MD This Is Your Medications List alprazolam (alprazolam 0.25 mg Tab) cyclobenzaprine (cyclobenzaprine 10 mg Tab) gabapentin (gabapentin 300 mg Cap) hydrochlorothiazide-losar lemus (Hyzaar 12.5 mg-50 mg Tab) Procedures Performed Biopsy of breast (06/27/2023), Arthroscopy of knee (06/04/1995), Appendectomy, Cholecystectomy, Extraction of wisdom tooth, Foot, Simple dental extraction, DEAN BSO - Total abdominal hysterectomy and bilateral salpingo-oophorectomy, Tonsillectomy and adenoidectomy. Discharge Vitals Heart Rate (Peripheral) 76 Blood Pressure 124/82 Height 170 cm Height 67 in Weight 69.7 kg Weight 153.34 lb BMI 24.12 What to do next Scheduled Follow-Up Appointments Monday 2:45 PM EST With: Osmin PAUL MD Where: Cardiology Clinic Monday 2:15 PM EDT With: Michael Holley MD Where: [facility] Family [facility] Normal [facility] Patient Educationon 10-02-19 24 Patient Education Nutrition BMI for Adults What [...] numbers. This can be done either in [place] ([place] or metric measurements. Note that charts and online BMI calculators are available to help you find your BMI quickly and easily without having to do these calculations yourself. To calculate your BMI in [place] ([place] measurements: 1. Measure your weight in [...] for Disease Control and Prevention: www.cdc.gov ? [place] Heart Association: www.heart.org ? National Heart, Lung, and Blood [place]: www.nhlbi.nih.gov Summary ? Body mass index (BMI) is a number that is calculated from a person's weight and height. ? BMI may help estimate how much of a person's weight is composed of fat. BMI can help identify those who may be at higher risk for certain medical problems. ? BMI can be measured using [place] measurements or metric measurements. ? BMI charts are used to identify whether you are underweight, normal weight, overweight, or obese. This information is not intended to replace advice given to you by your health care provider. Make sure you discuss any questions you have with your health care provider. Document Revised: 05/13/2020 Document Reviewed: 03/20/2020 [employer] Patient Education ? 2022 [employer]. [facility] Physician Orderon 10-02-2023 Physician Order [id number]#1.00TIFF [facility] Formson 09-13-2023 Forms sent lipid panel to [facility], received confirmation fax went thru [id number]#1.00TIFF [facility] Insurance Correspondenceon 0 09-12-2023 Insurance Correspondence [id number]#1.00TIFF [facility] Ambulatory Visit Summaryon 0 09-07-2023 Ambulatory Visit Summary ADELINA MIR :1960 Visit Date:09/07/2023 Ambulatory Visit Instructions Your Diagnosis BMI 23.0-23.9, adult Former smoker Your Care Team Attending Physician - Michael Holley MD Primary Care Physician - Michael Holley MD This Is Your Medications List alprazolam (alprazolam 0.25 mg Tab) cyclobenzaprine (cyclobenzaprine 10 mg Tab) gabapentin (gabapentin 300 mg Cap) hydrochlorothiazide-losar lemus (Hyzaar 12.5 mg-50 mg Tab) Procedures Performed Biopsy of breast (06/27/2023), Arthroscopy of knee (06/04/1995), Appendectomy, Cholecystectomy, Extraction of wisdom tooth, Foot, Simple dental extraction, DEAN BSO - Total abdominal hysterectomy and bilateral salpingo-oophorectomy, Tonsillectomy and adenoidectomy. Discharge Vitals Temperature (Temporal Artery) 36.5 ?C Heart Rate (Peripheral) 94 Respiratory Rate 16 Blood Pressure 166/100 Height 170.2 cm Height 67 in Weight 68.7 kg Weight 151.14 lb BMI 23.72 What to do next Scheduled Follow-Up Appointments Monday 1:00 PM EST With: Michael Holley MD Where: [facility] Normal [address] [place] [address]- \.br\ Medications\.br\ What How Much When Instructions\.br \ Unchanged alprazolam (alprazolam 0.25 mg Tab) 1 Tablets By Mouth 3 times a day\.br\ Unchanged cyclobenzaprine (cyclobenzaprine 10 mg Tab) 1 Tablets By Mouth At bedtime as needed for for spasm\.br\ Unchanged gabapentin (gabapentin 300 mg Cap) 1 Capsules By Mouth 2 times a day\.br\ Unchanged hydrochlorothiaz nery-losartan (Hyzaar 12.5 mg-50 mg Tab) 1 Tablets By Mouth Every day\.br\ Allergies\.br\ Entex (Unknown)\.br\ Skelaxin (Unknown)\.br\ corticosteroids (Anaphylaxis)\.b r\ Problems\.br\ Ongoing - Any problem that you are currently receiving treatment for.\.br\ ADHD\.br\ BMI 24.0-24.9, adult\.br\ Complex regional pain syndrome of lower limb\.br\ Dysuria\.br\ Essential tremor\.br\ Generalized anxiety disorder\.br\ Hx of osteoarthritis\. br\ Idiopathic polyneuropathy\. br\ Mass of left breast\.br\ Nipple discharge\.br\ Scoliosis\.br\ Historical - Any problem that you are no longer receiving treatment for.\.br\ Polyneuropathy\. br\ RSD lower limb\.br\ Patient Survey\.br\ You may receive a survey via text or e-mail asking about your office visit. Please share your experience with us by completing your survey. We appreciate your feedback and thank you for choosing us for your care.\.br\ \.br\ [facility] Consent for Treatmenton Consent for Treatment [id number]#1.00TIFF Normal [facility] Family Medicine Office/Clini c Noteon 09-07-2023 Family Medicine Office/Clinic Note HPI Staff Adelina is a 62 year old female presenting for surgical clearance, abnormal EKG Saw Dr Paul today at [facility] and Has orders for stress test and lipid panel, she'll be called for scheduling of the stress test. Her BP was elevated there and he rxed losartan hctz and she has to pick it up yet. Surgery: Breast lump ecxcised Surgeon: Dr Chaney Date: 09/13/23 will probably be rescheduled. questions/concerns: none History of Present Illness - Here to discuss clearance. - Needs Breast Lump removal. - Cannot walk up a flight of stairs with out being SOB - Cannot garden or mow her yard - EKG was abnormal. Review of Systems PHQ Score Initial Depression Screen Score: 0 SCORE Physical Exam Vitals & Measurements T: 36.5 ?C(Temporal Artery) HR: 94(Peripheral) RR: 16 BP: 166/100 SpO2: 98% HT: 67 in HT: 170.2 cm WT: 68.7 kg WT: 151.14 lb BMI: 23.72 General: alert, no acute distress ENMT: oral mucosa moist, Cardiovascular: regular rate and rhythm, normal peripheral perfusion Respiratory: Lungs CTA, respirations non labored Extremities: no deformity, no trauma Neurological: oriented x 4, LOC appropriate for age, CN II-XII intact, motor strength equal & normal bilaterally, speech normal Abdomen: Soft, Nontender, Non-distended, + BS Assessment/Plan 1. Mass of left breast (N63.23: Unspecified lump in the left breast, lower outer quadrant) - Not medically optimized for surgery. - Saw cardiology - Please follow their recommendations - Will see the patient back in 3 weeks 2. Pre-op exam (Z01.818: Encounter for other preprocedural examination) - Did not pass as she has an abnormal EKG - Cardiology to work up the patient 3. BMI 23.0-23.9, adult (Z68.23: Body mass index [BMI] 23.0-23.9, adult) - BMI education given Ordered: Body Mass Index (BMI) documented 3008F Current tobacco non-user 1036F Depression Screening Negative 3352F Influenza immunization status assessed 1030F Most recent diastolic blood pressure >=90 mm Hg 3080F Most recent systolic blood pressure >= 140 mm Hg 3077F 4. Former smoker (Z87.891: Personal history of nicotine dependence) - Please continue to not smoke Ordered: Body Mass Index (BMI) documented 3008F Current tobacco non-user 1036F Depression Screening Negative 3352F Influenza immunization status assessed 1030F Most recent diastolic blood pressure >=90 mm Hg 3080F Most recent systolic blood pressure >= 140 mm Hg 3077F 5. HTN (hypertension) (I10: Essential (primary) hypertension) - Recently diagnosed - Pt to [facility] pick[facility] losartan. - Will add meds if needed. Orders: fluconazole, 150 mg = 1 tab(s), Oral, Once, # 1 tab(s), Refills(s) 0, Pharmacy: [id number], 170.2, cm, 08/09/23 15:59:00 EST, Height/Length Dosing, 69.3, kg, 08/09/23 15:59:00 EST, Weight Dosing Follow-up No qualifying data available Problem List/Past Medical History Ongoing ADHD BMI 24.0-24.9, adult Complex regional pain syndrome of lower limb Dysuria Essential tremor Generalized anxiety disorder HTN (hypertension) Hx of osteoarthritis Idiopathic polyneuropathy Mass of left breast Nipple discharge Pre-op exam Scoliosis Historical Polyneuropathy RSD lower limb Procedure/Surgical History Biopsy of breast (06/27/2023), Arthroscopy of knee (06/04/1995), Appendectomy, Cholecystectomy, Extraction of wisdom tooth, Foot, Simple dental extraction, DEAN BSO - Total abdominal hysterectomy and bilateral salpingo-oophorectomy, Tonsillectomy and adenoidectomy. Medications alprazolam 0.25 mg Tab, 0.25 mg= 1 tab(s), Oral, TID cyclobenzaprine 10 mg Tab, 10 mg= 1 tab(s), Oral, Bedtime, PRN, 3 refills gabapentin 300 mg Cap, 300 mg= 1 cap(s), Oral, BID, 3 refills Hyzaar 12.5 mg-50 mg Tab, 1 tab(s), Oral, Daily, 3 refills Allergies Entex (Unknown) Skelaxin (Unknown) corticosteroids (Anaphylaxis) Social History Alcohol - Denies Alcohol Use, 06/20/2023 Alcohol use interferes with work or home: No., 11/08/2022 Substance Abuse Current, Marijuana, Daily, 06/20/2023 Tobacco Former smoker, quit more than 30 days ago Tobacco Use:. Never Smokeless Tobacco Use:. Cigarettes, Household tobacco concerns: No., 09/07/2023 Family History Primary malignant neoplasm of lung: Mother. Immunizations Vaccine Date Status Comments influenza virus vaccine, inactivated - Not Given Patient Refuses influenza virus vaccine, inactivated - Not Given Patient Refuses SARS-CoV-2 mRNA (tozinameran 5y-11y) vac - Not Given Postpone due to refusal [facility] Comment on above: Result Comment: Elec tronically Signed By: Kishan PRATT, Michael Barker\.br\Date and Time Signed: 09/07/23 15:56 EST Heart and Vascular Office/Cl inic Noteon 09-07-2023 Heart and Vascular Office/Clinic Note History of Present Illness Patient is a very pleasant 62-year-old with idiopathic polyneuropathy, recently diagnosed with a breast lump and requires lumpectomy dated to take place on 09/13/2023. Patient underwent preop testing with an EKG on 09/05/2023 which showed normal sinus rhythm, normal axis, normal intervals, left ventricular hypertrophy by voltage and left atrial enlargement. Patient states that she had some nipple discharge and was sent for cytology and reportedly negative however that she has a lump in her breast and requires surgical removal. She is a previous smoker of approximately 30 pack years who quit around 20 years ago. Patient denies any chest pain or angina however she does have dyspnea on exertion although she does have chronic feet pain due to neuropathy. She has never been told she had any cardiac issues or illnesses. From a cardiac standpoint she denies any chest pain, angina but does complain of some mild dyspnea on exertion. She is on no antihypertensive medications and does not take her blood pressure at home. She has never had a stress test, catheterization, TIA or CVA. In our office today her blood pressure is 149/102 and repeat was 201/121 with a pulse of 97 and regular. Physical exam demonstrates clear lungs bilaterally, 2+ carotid upstroke with a loud right-sided bruit isolated to the clavicular area, regular rate and rhythm with a 3/6 systolic ejection murmur best heard at the upper right sternal border, no diastolic murmurs, no S3, S4 or edema noted.. Lipids are pending. EKG is as above. Review of Systems Constitutional: no fever, no sweats, no weakness Skin: no rash, no lesions, nobruising/petechiae ENMT: no sore throat, no congestion, no hoarseness Respiratory: no shortness of breath, no cough, no orthopnea, no wheezing Cardiovascular: no chest pain, no palpitations, no edema Gastrointestinal: no nausea, no vomiting, no diarrhea, no GI bleeding Genitourinary: no anuria/oliguria no hematuria Musculoskeletal: no back pain, no trauma Neurologic: no headache, no dizziness, no numbness, no weakness Psychiatric: no sleeping problems, no irritability, no anxiety/depression. Heme/Lymph: no bleeding tendency, no bruising tendency Allergy/Immunologic: no recurrent infections, no impaired immunity Additional ROS info: Except as noted in the above Review of Systems and in the History of Present Illness all other systems have been reviewed and are negative or noncontributory. Physical Exam General: alert, no acute distress Skin: warm, dry intact Head: atraumatic, normocephalic Neck: Trachea midline, no JVD, no bruit Eye: normal conjunctiva, sclera clear ENMT: oral mucosa moist Cardiovascular: regular rate and rhythm, nomurmur normal peripheral perfusion Respiratory: Lungs CTA, respirations non labored Chest wall: no deformity. Gastrointestinal: soft, non distended, no tenderness, no guarding. Back: No tenderness, Normal ROM, Normal alignment. Extremities: no edema, no deformity, no trauma Neurological: oriented x 4, LOC appropriate for agesensation equal & normal bilaterally, speech normal Psychiatric: cooperative, affect appropriate for age, normal judgement, normal psychiatric thoughts. Assessment/Plan 1. Preoperative risk stratification: Although the patient does not have anginal symptoms she does have an abnormal EKG consistent with left ventricular perjury and left atrial enlargement as well as a bruit in her right carotid area versus a referred murmur from aortic stenosis. She is also severely hypertensive on no antihypertensive medications, previous smoker and unknown cholesterol. I recommended the patient undergo a 2D echo with Doppler to evaluate her LV function, valvular status and pulmonary pressures. In addition she will undergo a Lexiscan/MPI as she is unable to walk on a treadmill to further risk stratify her. If her stress test is grossly abnormal, she may require diagnostic coronary angiogram. In addition she will start on baby aspirin and Hyzaar 50/12.5 mg p.o. daily. I have asked her to check her blood pressure twice a day for the next 2 weeks and return in 2 weeks time for a blood pressure check. 2. Hyperlipidemia: Recommend obtaining a fast lipid profile. 3. Carotid bruit: Recommend she undergo a bilateral carotid ultrasound to determine if she has any carotid artery stenosis. Patient may require postponement of her lumpectomy until after her cardiac evaluation can be completed and her blood pressure optimized. 4. Thank you very much for the opportunity to participate in the cardiac care of your patient. 5. Return office with Dr. Paul in 1 month. Follow-up No qualifying data available Problem List/Past Medical History Ongoing ADHD BMI 24.0-24.9, adult Complex regional pain syndrome of lower limb Dysuria Essential tremor Generalized anxiety disorder Hx of osteoarthritis Idiopathic polyneuropathy Mass of left breast Nipple discharge Scoliosis Historical Po (more content not included)... Normal [facility] Comment on above: Result Comment: Elec tronically Signed By: BEVERLY PRATT, Osmin Pool\.oh\Date and Time Signed: 09/07/23 14:13 EST Insurance Correspondenceon 0 09-07-2023 Insurance Correspondence [id number]#1.00TIFF Normal [facility] Physician Orderon 09-07-2023 Physician Order [id number]#1.00TIFF [facility] Physician Order [id number]#1.00TIFF [facility] ECG 12-Leadon 09-06-2023 ECG 12-Lead [id number]#1.00TIFF [facility] ECG 12-Lead [id number]#1.00TIFF [facility] C Urineon 08-11-2023 Bacteria identified Cx Nom [...] Locations R1: This test was performed at: [facility], [address] [place] [address], [facility] , , [facility] Comment on above: Performed By: #### [id number] ####[place] [address] Consent for Procedure/Surger yon 08-11-2023 Consent for Procedure/Surgery [id number]#1.00TIFF [facility] Ambulatory Visit Summaryon 1 10-10-2022 Ambulatory Visit Summary ADELINA MIR :1960 Visit Date:08/09/2023 Ambulatory Visit Instructions Your Diagnosis Dysuria Blood pressure elevated without history of HTN BMI 23.0-23.9, adult Former smoker Tests Performed Urnls Dip Stick Auto w/o Microscopy POC 71459 Your Care Team Attending Physician - Michael [...] - Total abdominal hysterectomy and bilateral salpingo-oophorectomy, Tonsillectomy and adenoidectomy. Discharge Vitals Temperature (Temporal Artery) 37.2 ?C Heart Rate (Peripheral) 76 Respiratory Rate 16 Blood Pressure 122/74 Height 170.2 cm Height 67 in Weight 69.3 kg Weight 152.46 lb BMI 23.92 What to do next Scheduled Follow-Up Appointments Monday 1:00 PM EST With: Michael Holley MD Where: [facility] [place] Normal [facility] Ambulatory Visit Summary ADELINA MIR :1960 Visit Date:08/09/2023 Ambulatory Visit Instructions Your Care Team Attending Physician - Roshan CHANEY MD Primary Care Physician - Michael Holley [...] - Total abdominal hysterectomy and bilateral salpingo-oophorectomy, Tonsillectomy and adenoidectomy. Discharge Vitals Heart Rate (Peripheral) 72 Respiratory Rate 16 Blood Pressure 120/76 Height 170.2 cm Height 67 in Weight 69.7 kg Weight 153.34 lb BMI 24.06 What to do next Scheduled Follow-Up Appointments Monday 4:00 PM EST With: Michael Holley MD Where: [facility] Medicine [place] Normal [address] [id number]- \.br\ Medications\.br\ What How Much When Instructions\.br \ Unchanged alprazolam (alprazolam 0.25 mg Tab) 1 [...] questions or concerns \.br\ Medications and Immunizations Administered\.br \ Not Given\.br\ influenza virus vaccine, inactivated, Patient Refuses\.br\ Allergies\.br\ Entex (Unknown)\.br\ Skelaxin (Unknown)\.br\ corticosteroids (Anaphylaxis)\.b r\ Problems\.br\ Ongoing - Any problem that you are currently receiving treatment for.\.br\ ADHD\.br\ Blood pressure elevated without history of HTN\.br\ BMI 24.0-24.9, adult\.br\ Complex regional pain syndrome of lower limb\.br\ Essential tremor\.br\ Generalized anxiety disorder\.br\ Hx of osteoarthritis\. br\ Idiopathic polyneuropathy\. br\ Mass of left breast\.br\ Nipple discharge\.br\ Scoliosis\.br\ Historical - Any problem that you are no longer receiving treatment for.\.br\ Polyneuropathy\. br\ RSD lower limb\.br\ Patient Survey\.br\ You may receive a survey via text or e-mail asking about your office visit. Please share your experience with us by completing your survey. We appreciate your feedback and thank you for choosing us for your care.\.br\ \.br\ [facility] Family Medicine Office/Clini c Noteon [...] Urnls Dip Stick Auto w/o Microscopy POC 28108 2. Blood pressure elevated without history of HTN (R03.0: Elevated blood-pressure reading, without diagnosis of hypertension) - Resolved 3. BMI 23.0-23.9, adult (Z68.23: Body mass index [BMI] 23.0-23.9, adult) - BMI education uploaded. 4. Former smoker (Z87.891: Personal history of nicotine dependence) - Please continue to not smoke. Ordered: Urnls Dip Stick Auto w/o Microscopy POC 98827 Orders: fluconazole, 150 mg = 1 tab(s), [...] - Total abdominal hysterectomy and bilateral salpingo-oophorectomy, Tonsillectomy and adenoidectomy. Medications alprazolam 0.25 mg [...] - Not Given Patient Refuses SARS-CoV-2 mRNA (tobangnameran 5y-11y) vac - Not Given Postpone due [...] Dipstick: 2+ (100 mg/dl) (08/09/23 16:03:00) Specific [place] Urine Dipstick: 1.020 (08/09/23 16:03:00) Urine Appearance Urine Dipstick: Slightly cloudy (08/09/23 16:03:00) Urine Color Urine Dipstick: Yellow (08/09/23 16:03:00) Urobilinogen Urine Dipstick: Normal 0.2-1 EU/dl (08/09/23 16:03:00) pH Urine Dipstick: 6 (08/09/23 16:03:00) Normal [facility] Comment on above: Result Comment: Elec tronically Signed By: Kishan PRATT, Michael Ball.br\Date and Time Signed: 08/09/23 16:05 EST General [...] - Total abdominal hysterectomy and bilateral salpingo-oophorectomy, Tonsillectomy and adenoidectomy. Medications alprazolam 0.25 mg [...] - Not Given Patient Refuses SARS-CoV-2 mRNA (tobanggloriaantony 5y-11y) vac - Not Given Postpone due to refusal Normal [facility] Comment on above: Result Comment: Elec tronically Signed By: APARNA PRATT, Roshan Hargrove\Date and Time Signed: 08/09/23 15:03 EST Patient [...] numbers. This can be done either in [place] or metric measurements. Note that charts and online BMI calculators are available to help you find your BMI quickly and easily without having to do these calculations yourself. To calculate your BMI in [place] measurements: 1. Measure your weight in [...] for Disease Control and Prevention: www.cdc.gov ? [place] Heart Association: www.heart.org ? National Heart, Lung, and Blood [place]: www.nhlbi.nih.gov Summary ? Body mass index (BMI) is a number that is calculated from a person's weight and height. ? BMI may help estimate how much of a person's weight is composed of fat. BMI can help identify those who may be at higher risk for certain medical problems. ? BMI can be measured using [place] measurements or metric measurements. ? BMI charts are used to identify whether you are underweight, normal weight, overweight, or obese. This information is not intended to replace advice given to you by your health care provider. Make sure you discuss any questions you have with your health care provider. Document Revised: 05/13/2020 Document Reviewed: 03/20/2020 [employer] Patient Education ? 2022 [employer]. Normal [facility] Nurse Consultation Noteon Nurse Consultation Note [...] Immunizations Vaccine Date Status Comments SARS-CoV-2 mRNA (toantonioeran 5y-11y) vac - Not Given Postpone due to refusal Normal [facility] Family Medicine Office/Clini c Noteon 07-24-2023 Family Medicine Office/Clinic Note HPI Staff Adelina is a 62 year old female presenting for 3 month follow up med eval for mood Follow up for Mental Status: [...] - Total abdominal hysterectomy and bilateral salpingo-oophorectomy, Tonsillectomy and adenoidectomy. Medications alprazolam 0.25 mg [...] Immunizations Vaccine Date Status Comments SARS-CoV-2 mRNA (tobangnameran 5y-11y) vac - Not Given Postpone due to refusal Normal [facility] Comment on above: Result Comment: Elec tronically Signed By: Kishan PRATT, Michael Barker\.br\Date and Time Signed: 07/24/23 14:32 EST General [...] anxiety disorder Hx of osteoarthritis Idiopathic polyneuropathy [facility] current use of opiate analgesic Mass of left breast Nipple discharge Scoliosis Historical Polyneuropathy RSD lower limb Procedure/Surgical History Biopsy of breast (06/27/2023), Arthroscopy of knee (06/04/1995), Appendectomy, Cholecystectomy, Extraction of wisdom tooth, Foot, Simple dental extraction, DEAN BSO - Total abdominal hysterectomy and bilateral salpingo-oophorectomy, Tonsillectomy and adenoidectomy. Medications alprazolam 0.25 mg [...] Immunizations Vaccine Date Status Comments SARS-CoV-2 mRNA (toantonioeran 5y-11y) vac - Not Given Postpone due to refusal Normal [facility] Comment on above: Result Comment: Elec tronically Signed By: APARNA PRATT, Roshan Horner\.br\Date and Time Signed: 07/13/23 16:04 EST Ambulatory Visit Summaryon 1 09-11-2022 Ambulatory Visit Summary ADELINA MIR :1960 Visit Date:07/12/2023 Ambulatory Visit Instructions Your Care Team Attending Physician - Roshan CHANEY MD Primary Care Physician - Michael Holley MD This Is Your Medications List alprazolam (alprazolam 0.25 mg Tab) cyclobenzaprine (cyclobenzaprine 10 mg Tab) gabapentin (gabapentin 300 mg Cap) Procedures Performed Biopsy of breast (06/27/2023), Arthroscopy of knee (06/04/1995), Appendectomy, Cholecystectomy, Extraction of wisdom tooth, Foot, Simple dental extraction, DEAN BSO - Total abdominal hysterectomy and bilateral salpingo-oophorectomy, Tonsillectomy and adenoidectomy. What to do next Scheduled Follow-Up Appointments Monday 1:40 PM EST With: Michael Holley MD Where: [facility] Normal [address] [place] [address], [address], [place] [address]- \.br\ Medications\.br\ What How Much When Instructions\.br \ Unchanged alprazolam (alprazolam 0.25 mg Tab) 1 Tablets By Mouth 3 times a day\.br\ Unchanged cyclobenzaprine (cyclobenzaprine 10 mg Tab) 1 Tablets By Mouth At bedtime as needed for for spasm\.br\ Unchanged gabapentin (gabapentin 300 mg Cap) 1 Capsules By Mouth 2 times a day\.br\ Allergies\.br\ Entex (Unknown)\.br\ Skelaxin (Unknown)\.br\ corticosteroids (Anaphylaxis)\.b r\ Problems\.br\ Ongoing - Any problem that you are currently receiving treatment for.\.br\ ADHD\.br\ BMI 24.0-24.9, adult\.br\ Complex regional pain syndrome of lower limb\.br\ Essential tremor\.br\ Generalized anxiety disorder\.br\ Hx of osteoarthritis\. br\ Idiopathic polyneuropathy\. 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 br\ RSD lower limb\.br\ Patient Survey\.br\ You may receive a survey via text or e-mail asking about your office visit. Please share your experience with us by completing your survey. We appreciate your feedback and thank you for choosing us for your care.\.br\ \.br\ [facility] RAD - Ultrasound Reporton RAD - Ultrasound Report [id number]#1.00TIFF Normal [facility] Pathology Noteon 07-06-2023 Pathology Note [id number]#1.00TIFF Normal [facility] Outside Mammographyon 2022 Outside Mammography [id number]#1.00TIFF Normal [facility] RAD - Ultrasound Reporton RAD - Ultrasound Report [id number]#1.00TIFF Normal [facility] Facesheeton 06-21-2023 Facesheet [id number]#1.00TIFF Normal [facility] Ambulatory Visit Summaryon 1 Ambulatory Visit Summary [...] - Total abdominal hysterectomy and bilateral salpingo-oophorectomy, Tonsillectomy and adenoidectomy. Discharge Vitals Heart Rate (Peripheral) 72 Respiratory Rate 16 Blood Pressure 120/72 Height 170.2 cm Height 67 in Weight 71 kg Weight 156.2 lb BMI 24.51 What to do next Scheduled Follow-Up Appointments Monday 1:40 PM EST With: Michael Holley MD Where: [facility] Lab Reportson 06-06-2023 Lab Reports [id number]#1.00CD:12 7 [facility] Physician Referralon 023 Physician Referral [id number]#1.00CD:12 7 [facility] Physician Referralon 023 Physician Referral [id number]#1.00CD:12 7 [facility] Physician Referralon 023 Physician Referral [id number]#1.00CD:127 [facility] Ambulatory Visit Summaryon 0 04-20-2023 Ambulatory Visit [...] BSO - Total abdominal hysterectomy and bilateral salpingo-oophorectomy. Discharge Vitals Temperature (Oral) 36.8 ?C Heart Rate (Peripheral) 94 Respiratory Rate 16 Blood Pressure 124/76 Height 170.2 cm Height 67 in Weight 70.6 kg Weight 155.32 lb BMI 24.37 What to do next Scheduled Follow-Up Appointments Monday 1:40 PM EST With: Kishan PRATT, Michael Barker Where: [facility] Invalid Interpretation Code Nipple discharge [facility] Office/Clini c Noteon 04-20-2023 [facility] Office/Clinic Note Chief Complaint follow up mood [...] repeat diagnostic mammo - Follow up with [facility]ITER Ordered: [facility] External Ambulatory Referral MA Mamm Diag w/CAD if perf and 3D Manny 2. Nipple discharge (N64.52: Nipple discharge) - As above Ordered: [facility] External Ambulatory Referral MA Mamm Diag w/CAD if perf and 3D Manny 3. Generalized anxiety disorder (F41.1: Generalized anxiety disorder) - Will refill xanax. 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 Medications alprazolam 0.25 mg Tab, 0.25 mg= [...] Immunizations Vaccine Date Status Comments SARS-CoV-2 mRNA (micki 5y-11y) vac - Not Given Postpone due to refusal [1] MA Mamm Diag w/CAD if perf and 3D Manny; Corona Lieberman M.D. 04/04/2023 13:18 EDT [address] [facility] Comment on above: Result Comment: Elec tronically Signed By: Kishan PRATT, Michael Foley\Date and Time Signed: 04/20/23 16:05 EDT MA [...] very important to your health. The current [place] [employer] and National Comprehensive Cancer [...] interval follow-up Recommendation: Follow-up at short interval [facility] US Breast Unilateral Lt Comp leteon 04-05-2023 US Breast Unilateral Lt Complete Exam Date/Time: 04/04/2023 14:24 EDT Reason for Exam: R92.8 Report PLEASE REFER TO THE MAMMOGRAM REPORT. Ordering Provider: Michael Holley FINAL REPORT Dictated: 04/05/2023 1:16 pm Corona Lieberman M.D. Signed (Electronic Signature): 04/05/2023 1:16 pm Signed by: Corona Lieberman M.D. Transcribed by: ROSMERY Technologist: NADEEN Jenkins [facility] US Breast Unilateral Rt Comp leteon 04-05-2023 US Breast Unilateral Rt Complete Exam Date/Time: 04/04/2023 14:25 EDT Reason for Exam: R92.8 Report PLEASE REFER TO THE MAMMOGRAM REPORT. Ordering Provider: Michael Holley FINAL REPORT Dictated: 04/05/2023 1:17 pm Corona Lieberman M.D. Signed (Electronic Signature): 04/05/2023 1:17 pm Signed by: Corona Lieberman M.D. Transcribed by: ROSMERY Technologist: NADEEN [facility] Consent for Treatmenton Consent for Treatment [id number]#1.00CD:12 7 [facility] Family Medicine Office/Clini c Noteon 03-23-2023 Family [...] 1998, Dr. Krishnan sent her to a fur clipper. She had corrective surgeries done. She has a bunion that has gotten swollen. She was told by her fur clipper that they have never seen anybody's feet [...] Shepard who is a marijuana doctor in [place]. She states that they will not give [...] normal Breast: Breast exam done. 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 There is a clear straw-colored discharge protruding [...] and accurate. If this is not against [facility] policy, we will prescribe the gabapentin. We [...] patient is hav (more content not included)... [facility] Comment on above: Result Comment: Elec tronically Signed By: Michael Holley MD\.br\Date and Time Signed: 03/23/23 15:23 EDT\.br\Electronically Co-Signed By: Lucy Hines\.br\Date and Time Co-Signed: 03/21/23 17:14 EDT Patient Correspondenceon Patient Correspondence [id number]#1.00CD:12 7 [facility] Medication Consenton 023 Medication Consent [id number]#1.00CD:12 7 [facility] Patient Correspondenceon Patient Correspondence [id number]#1.00CD:12 7 [facility] Ambulatory Visit Summaryon 0 03-21-2023 Ambulatory Visit [...] BSO - Total abdominal hysterectomy and bilateral salpingo-oophorectomy. Discharge Vitals Temperature (Temporal Artery) 36.5 ?C Heart Rate (Peripheral) 106 Respiratory Rate 16 Blood Pressure 130/84 Height 170.18 cm Height 67 in Weight 71.5 kg Weight 157.3 lb BMI 24.69 What to do next Scheduled Follow-Up Appointments 2022 3:20 PM EDT With: Michael Holley MD Where: [facility] Interpretation Code Generalized anxiety disorder [facility] Covid-19 PCR (CVDTBH)on 08-05 SARS-CoV-2 (COVID-19) RNA LUDIN+probe Ql (Unsp spec) Detected Critically abnormal NOT DETECTED [facility] Comment on above: Result Comment: This test is not yet approved or cleared by the [place] FDA. When there are no FDA-approved or cleared tests available, and other criteria are met, FDA can make tests available under an emergency access mechanism called an Emergency Use Authorization (EUA). The EUA for this test is supported by the [place] of Health and Human Service's (HHS's) declaration [...] longer be used). Performed By: #### C VDTB #### [facility] [address] [place] [address] Dr. Anderson Packer Vital Signs Date Time Vital Sign Value Performing Clinician Carine rivera 02-08-2024 15:18-0400 Body height 170.18 cm MD Rhina Krishnan Work Phone: [facility] 02-08-2024 15:18-0400 Body mass index (BMI) [Ratio] 24.3 kg/m2 MD Rhina Krishnan Work Phone: [facility] 02-08-2024 15:18-0400 Body temperature 97.8 [degF] MD Rhina Krishnan Work Phone: [facility] 02-08-2024 15:18-0400 Body weight 70.3 kg MD Rhina Krishnan Work Phone: [facility] 02-08-2024 15:18-0400 Diastolic blood pressure 90 mm[Hg] MD Rhina Krishnan Work Phone: [facility] 02-08-2024 15:18-0400 Heart rate 81 /min MD Rhina Krishnan Work Phone: [facility] 02-08-2024 15:18-0400 Respiratory rate 20 /min MD Rhina Krishnan Work Phone: [facility] 02-08-2024 15:18-0400 SaO2% (BldA) [Mass fraction] 95 % MD Rhina Krishnan Work Phone: [facility] 02-08-2024 15:18-0400 Systolic blood pressure 154 mm[Hg] MD Rhina Krishnan Work Phone: [facility] 01-02-2024 15:41-0400 Blood Pressure Location Roshan CHANEY [facility] 01-02-2024 15:41-0400 Diastolic blood pressure 86 mm[Hg] Roshan CHANEY [facility] 01-02-2024 15:41-0400 Heart rate 72 /min Roshan VILLAGRANL [facility] 01-02-2024 15:41-0400 Respiratory rate 16 /min Roshan NILL [facility] 01-02-2024 15:41-0400 Systolic blood pressure 132 mm[Hg] Roshan VILLAGRANL [facility] 10-31-2023 14:32-0500 Diastolic blood pressure 82 mm[Hg] Osmin PAUL [facility] 10-31-2023 14:32-0500 Heart rate 90 /min Osmin PAUL [facility] 10-31-2023 14:32-0500 SaO2% (BldA) [Mass fraction] 98 % Osmin PAUL [facility] 10-31-2023 14:32-0500 Systolic blood pressure 132 mm[Hg] Osmin PAUL [facility] 08-09-2023 13:19-0500 Blood Pressure Location Roshan CHANEY [facility] 08-09-2023 13:19-0500 Diastolic blood pressure 76 mm[Hg] Roshan CHANEY [facility] 08-09-2023 13:19-0500 Heart rate 72 /min Roshan VILLAGRANL [facility] 08-09-2023 13:19-0500 Respiratory rate 16 /min Roshan CHANEY [facility] 08-09-2023 13:19-0500 Systolic blood pressure 120 mm[Hg] Roshan CHANEY [facility] Encounters Encounter Date Encounter Type Care Provider Facility Start: 02-27-2024 ambulatory Roshan CHANEY Facility :[facility] Start: 02-20-2024 End: 02-20-2024 Departed Referred MD Rhina Krishnan Work Phone: [facility] Start: 02-20-2024 End: 02-20-2024 ambulatory Roshan R NILL Facility:[facility] Start: 02-20-2024 End: 02-20-2024 Patient encounter procedure Roshan R NILL [facility] Start: 02-13-2024 Registered Recurring MD Rhina michelle Work Phone: [facility] Work Phone: Start: 02-08-2024 End: 02-08-2024 ambulatory MD Rhina Krishnan Work Phone: [facility] Work Phone: Start: 02-08-2024 End: 02-08-2024 Patient encounter procedure MD Rhina Krishnan [facility] Phone[facility] Work Phone: Start: 01-31-2024 ambulatory Roshan R NILL Facility :[facility] Start: 01-23-2024 End: 01-23-2024 ambulatory Roshan R NILL Facility:[facility] Start: 01-23-2024 End: 01-23-2024 Patient encounter procedure Roshan R NILL [facility] [place] Start: 01-16-2024 End: 01-16-2024 ambulatory Roshan R NILL Facility:[facility] Start: 01-16-2024 End: 01-16-2024 [facility] [place] Start: 01-10-2024 End: 01-10-2024 ambulatory MD Rhina Krishnan Work Phone: [facility] Work Phone: Start: 01-10-2024 End: 01-10-2024 Departed Referred MD Rhina Krishnan Work Phone: [facility] Start: 01-10-2024 End: 01-10-2024 ambulatory Roshan R NILL Facility:[id number] Start: 01-02-2024 End: 01-02-2024 ambulatory Roshan R NILL Facility: [facility] Start: 01-02-2024 End: 01-02-2024 Patient encounter procedure Roshan R NILL [place] [facility] Start: 11-27-2023 End: 11-27-2023 ambulatory Michael Holley Facility:[facility] [place] Start: 10-31-2023 End: 10-31-2023 ambulatory XXXX NONE Facility:[facility] Start: 10-31-2023 End: 10-31-2023 Patient encounter procedure Osmin PAUL [facility] Start: 10-24-2023 End: 10-24-2023 ambulatory MD Osmin PAUL Facility:[facility] Start: 10-24-2023 End: 10-24-2023 Patient encounter procedure Osmin PAUL [facility] Start: 10-02-2023 End: 10-02-2023 ambulatory Michael Holley Facility: [facility] [place] Start: 09-07-2023 End: 09-07-2023 ambulatory Michael Holley Facility: [facility] [place] Start: 09-07-2023 End: 09-07-2023 ambulatory MD Osmin PAUL Facility:[facility] Start: 08-09-2023 End: 08-09-2023 ambulatory Michael Holley Facility:[facility] Start: 08-09-2023 End: 08-09-2023 ambulatory Roshan VILLAGRANL Facility: [facility] Start: 08-09-2023 End: 08-09-2023 Patient encounter procedure Roshan R NILL [facility] Start: 08-07-2023 End: 08-07-2023 ambulatory Michael Holley Facility:[facility] [place] Start: 07-24-2023 End: 07-24-2023 ambulatory Michael Holley Facility:[facility] [place] Start: 07-12-2023 End: 07-12-2023 ambulatory Roshan R NILL Facility: [facility] Start: 07-12-2023 End: 07-12-2023 Patient encounter procedure Roshan R NILL [facility] [place] Start: 06-20-2023 End: 06-20-2023 ambulatory Roshan R NILL Facility: [facility] Start: 06-02-2023 ambulatory Michael Holley Facility:[facility] Start: 04-26-2023 ambulatory Michael Holley Facility :[facility] Start: 04-20-2023 End: 04-20-2023 ambulatory Michael Holley Facility:[facility] [place] Start: 04-04-2023 End: 04-04-2023 ambulatory Michael Holley Facility:[facility] Start: 04-04-2023 End: 04-04-2023 Patient encounter procedure Michael Holley [facility] Start: 03-21-2023 End: 03-21-2023 ambulatory Michael Holley Facility:[facility] [place] Start: 08-31-2021 End: 08-31-[address] RHINA KRISHNAN Facility:[facility] Procedures Date Procedure Procedure Detail Performing Clinician Start: 02-13-2024 Dual energy X-ray absorptiometry MD Rhina Krishnan Work Phone: Start: 01-10-2024 Excision of mass of breast Roshan VILLAGRANL Start: 06-27-2023 Biopsy of breast Michae l APARNA Start: 06-04-1995 Arthroscopy of knee Lamonte Holley Appendectomy Roshan CHANEY Arthroscopy Michael Holley Cholecystectomy Roshan CHANEY Extraction of wisdom tooth Travis CHANEY ft (qualifier value) Michael Holley Comment on above: 15 Foot surgeries to pepito per patient no further details Simple extraction of tooth Travis CHANEY Tonsillectomy and adenoidectomy Roshan CHANEY Total abdominal hyst erectomy with bilateral salpingo-oophorectomy Michael Holley Plan of Treatment Date Care Activity Detail Author Start: 02-08-2024 Patient referral [facility] Work Phone: Cancer Ag 15-3 [Unit s/volume] in Serum or Plasma [facility] Comprehensive metabo lic 2000 panel - Serum or Plasma [facility] DXA Skeletal system. axial Views for bone density [facility] Measurement of cance r antigen 27-29 [facility] Patient referral [facility] Work Phone: [facility] Immunizations Immunization Date Immunization Notes Care Provider Shemar ventura NEGATED: Highlighted row has not occurred!08-09-2023 influenza virus vaccine, unspecified formulation Roshan VILLAGRANTobi [facility] [place] NEGATED: Highlighted row has not occurred!08-09-2023 influenza virus vaccine, unspecified formulation Roshan VILLAGRANTobi [facility] [place] NEGATED: Highlighted row has not occurred!01-24-2023 SARS-CoV-2 mRNA (tozinameran 5y-11y) vaccine Michael Holley [facility] Payers Date Payer Category Payer Self-pay 2022 Private Health Insurance [id number] 1960 Unknown [id number] [id number]3 1960 Unknown [id number] 2.16.840.1.294498.3.579.2.727 1961 Unknown [id number] 2.16.840.1.473368.3.579.2.727 1960 Unknown [id number] 2.16.840.1.347999.3.579.2.727 1960 Unknown [id number] 2.16.840.1.845006.3.579.2.727 1961 Unknown [id number] 2.16.840.1.042720.3.579.2.727 1961 Unknown [id number] 2.16.840.1.819925.3.579.2.727 1961 Unknown [id number] 2.16.840.1.361282.3.579.2.727 1961 Unknown [id number] 2.16.840.1.275400.3.579.2.727 1961 Unknown [id number] 2.16.840.1.538192.3.579.2.727 1961 Unknown [id number] 2.16.840.1.898588.3.579.2.727 1961 Unknown [id number] 2.16.840.1.902848.3.579.2.727 1961 Unknown [id number] 2.16.840.1.178557.3.579.2.727 1961 Unknown [id number] 2.16.840.1.953690.3.579.2.727 1961 Unknown [id number] 2.16.840.1.645886.3.579.2.727 1961 Unknown [id number] 2.16.840.1.103887.3.579.2.727 1961 Unknown [id number] 2.16.840.1.774200.3.579.2.727 1961 Unknown [id number] 2.16.840.1.471932.3.579.2.727 1961 Unknown [id number] 2.16.840.1.009288.3.579.2.727 1961 Unknown [id number] 2.16.840.1.664881.3.579.2. 1961 Unknown [id number] 2.16.840.1.138783.3.579.2.727 1961 Unknown [id number] 2.16.840.1.477778.3.579.2.727 1961 Unknown [id number] 2.16.840.1.039132.3.579.2.727 1961 Unknown [id number] 2.16.840.1.145633.3.579.2.727 1961 Unknown [id number] 2.16.840.1.359437.3.579.2.7 1961 Unknown [id number] 2.16.840.1.775398.3.579.2.727 1958 Medicare [id number] Unknown Arlee / [id number] Unknown [id number] 2.16.840.1.325315.3.579.2.531 Social History Date Type Detail Facility Start: 03-21-2023 End: 02-08-2024 Tobacco smoking status [facility] Sex Assigned At Female [facility] Start: 1960 Sex Assigned At Female F [facility] Functional Status Date Assessment Result Facility 01-02-2024 Functional Status N/A [facility] [place] 10-31-2023 Functional Status N/A [facility] 08-09-2023 Functional Status N/A [facility] Clinical Notes 06-22-2023 to 02-08-2024 RadiologyRadiologyRadiologyLaboratoryRadiologyLaboratoryRadiologyLaboratoryRadio logyLaboratoryRadiologyLaboratoryRadiology Note Date & Type Note Facility 02-08-2024 Hospital Discharg e instructions Ambulatory OrdersReferral to Genetics Time Frame: 02/08/24, Location: [facility] Work Phone: 11-23-2023 Note [id number] [facility] 10-30-2023 Note Echocardiology Procedure Exam Date/Time Accession # Ordering Echo Transthoracic 10/24/2023 11:57 EST [id number] Osmin PAUL MD Complete CPT code 52509 74913 Reason for Exam (Echo Transthoracic Complete) I10;Hypertension Report [facility] [address] [place] [address] Adult Echocardiogram Report Name: ADELINA MIR Study Date: 10/24/2023 11:11 AM BP: 118/88 mmHg Patient Location: [facility] HR: 47 : 1960 Gender: Female Height: 67 in Age: 63 yrs Ethnicity: [facility] Weight: 153 lb Reason For Study: Hypertension BSA: 1.8 m2 History: HTN,breast cancer Ordering Physician: BEVERLY^Osmin^Yrn Referring Physician: Osmin PAUL Performed By: Rox Brenner, RDMS, RVT Interpretation Summary Normal LV and RV. No significant valve disease. Normal estimated PA pressure. Impaired diastolic relaxation. Severe LVH. Global peak strain ave = -12.7% Ejection Fraction = 55-60%. Procedure A complete two-dimensional transthoracic echocardiogram was performed (2D, M-mode, spectral and color flow Doppler). Study quality is good. Left Ventricle The left ventricle is normal in size. moderate to severe left ventricular hypertrophy. Ejection Fraction = 55-60%. The left ventricular wall motion is normal. Grade I diastolic dysfunction, (abnormal relaxation pattern). Left Atrium The left atrium is mildly dilated. Echocardiology Report Right Atrium Right atrial size is normal. Right Ventricle The right ventricular systolic function is normal. The right ventricle is normal size. The right ventricular wall motion is normal. Aortic Valve The aortic valve is trileaflet. No aortic regurgitation. There is no aortic stenosis. Mitral Valve The mitral valve is normal in structure and function. There is no mitral regurgitation noted. No mitral valve stenosis. Tricuspid Valve Structurally normal tricuspid valve. No evidence of tricuspid regurgitation. Right ventricular systolic pressure is normal. Pulmonic Valve No evidence of stenosis. There is no pulmonic valve regurgitation. Arteries The aortic root is normal in size. Normal ascending aorta. Pulmonary artery diameter is normal. Venous The inferior vena cava is normal in size, and collapses normally with respiration. Effusion There is no pericardial effusion. MMode/2D Measurements & Calculations RVDd: 2.6 cm LVIDd: 4.5 cm FS: 30.0 % Ao root diam: 2.9 cm IVSd: 1.8 cm LVIDs: 3.2 cm EDV(Teich): 94.6 ml Ao root area: 6.6 cm2 LVPWd: 1.5 cm ESV(Teich): 40.4 ml LA dimension: 3.9 cm EF(Teich): 57.3 % asc Aorta Diam: 2.7 cm LVOT diam: 2.3 cm LVLd ap4: 7.3 cm EDV(MOD-sp2): 162.0 ml LVOT area: 4.0 cm2 EDV(MOD-sp4): 86.6 ml ESV(MOD-sp2): 74.3 ml LVLs ap4: 6.0 cm EF(MOD-sp2): 54.1 % ESV(MOD-sp4): 31.5 ml EF(MOD-sp4): 63.6 % SV(MOD-sp4): 55.1 ml TAPSE: 2.1 cm IVC Diam: 1.6 cm RV Base_phl: 2.6 cm RV Length_phl: 7.9 cm RV Mid_phl: 2.1 cm RVIDd/LVIDd: 0.58 LA Vol Index: 37.3 ml/m2 Echocardiology Report Doppler Measurements & Calculations MV E max dyllan: 49.7 cm/sec MV dec time: 0.29 sec Ao V2 max: 122.0 cm/sec LV V1 max P.0 mmHg MV A max dyllan: 72.4 cm/sec Ao max P.0 mmHg LV V1 mean P.0 mmHg MV E/A: 0.69 Ao V2 mean: 80.5 cm/sec LV V1 max: 71.1 cm/sec Lat Peak E' Dyllan: 3.5 cm/sec Ao mean P.0 mmHg LV V1 mean: 43.7 cm/sec E/E' Lat: 14.3 Ao V2 VTI: 28.2 cm LV V1 VTI: 15.1 cm Med Peak E' Dyllan: 5.2 cm/sec E/E' Med: 9.5 ANKIT(I,D): 2.2 cm2 ANKIT(V,D): 2.4 cm2 SV(LVOT): 60.9 ml TR max dyllan: 228.8 cm/sec RAP systole: 3.0 mmHg AV VR: 0.58 TR max P.9 mmHg ANIKT(VTI)/BSA_phl: 1.2 RVSP(TR): 23.9 mmHg Measurements from QLAB LV GLS Endo Peak A2C (): - LV GLS Endo Peak A3C (): - LV GLS Endo Peak A4C (): - LV GLS Endo Peak Avg (): - 11.9 % 12.0 % 14.1 % 12.7 % FINAL REPORT Dictated: 10/24/2023 11:11 am Roberto Sosa MD Signed (Electronic Signature): 10/30/2023 10:21 am Signed by: Roberto Sosa MD Transcribed by: [facility] Technologist: [facility] 06-22-2023 Note Chief Complaint consultation for nipple [...] anxiety disorder Hx of osteoarthritis Idiopathic polyneuropathy MCC current use of opiate analgesic Mass of left breast Nipple discharge Scoliosis Historical Polyneuropathy RSD lower limb Procedure/Surgical History Arthroscopy of knee (06/04/1995), Appendectomy, Cholecystectomy, Extraction of wisdom tooth, Foot, Simple dental extraction, DEAN BSO - Total abdominal hysterectomy and bilateral salpingo-oophorectomy, [place]onsille (more content not included)... [facility] Comment on above: Result Comment: Elec tronically Signed By: Roshan CHANEY MD\.br\Date and Time Signed: 06/22/23 09:47 EDT Evaluation + Plan note Future Appointments Appointment Date:04/20/2023 03:20:00 PM Scheduled Provider:Michael Holley MD Location:[facility] Appointment Type: Open Future Scheduled TestsUS Breast Unilateral Lt Complete 03/27/23US Breast Unilateral Rt Complete 03/27/23 [facility] Evaluation + Plan note Future Appointments Appointment Date:07/24/2023 01:40:00 PM Scheduled Provider:Michael Holley MD Location:[facility] Appointment Type: Open Appointment Date:08/09/2023 01:00:00 PM Scheduled Provider:Roshan CHANEY MD Location:[facility] Appointment Type: Established 15 Future Scheduled TestsUS Breast Unilateral Lt Complete 03/27/23US Breast Unilateral Rt Complete 03/27/23MA Mamm Diag w/CAD if perf and 3D Manny 09/20/23 [facility] Evaluation + Plan note Future Appointments Appointment Date:10/02/2023 01:00:00 PM Scheduled Provider:Michael Holley MD Location:[facility] Appointment Type: Open Future Scheduled TestsUS Breast Unilateral Lt Complete 03/27/23US Breast Unilateral Rt Complete 03/27/23MA Mamm Diag w/CAD if perf and 3D Manny 09/20/23 [facility] [place] Evaluation + Plan note Future Appointments Appointment Date:10/31/2023 02:30:00 PM Scheduled Provider:Osmin PAUL MD [facility] Type:Cardiology Follow Up (FT) Appointment Date:11/27/2023 02:15:00 PM Scheduled Provider:Michael Holley MD Location:[facility] Appointment Type: Open Future Scheduled TestsLipid Panel 09/07/23US Breast Unilateral Lt Complete 03/27/23US Breast Unilateral Rt Complete 03/27/23MA Mamm Diag w/CAD if perf and 3D Manny 09/20/23 [facility] Evaluation + Plan note Future Appointments Appointment Date:11/27/2023 02:15:00 PM Scheduled Provider:Michael Holely MD Location:[facility] Appointment Type:FM Open Future Scheduled TestsLipid Panel 09/07/23US Breast Unilateral Lt Complete 03/27/23US Breast Unilateral Rt Complete 03/27/23MA Mamm Diag w/CAD if perf and 3D Manny 09/20/23 [facility] Evaluation + Plan note Future Appointments Appointment Date:02/27/2024 01:00:00 PM Scheduled Provider:Michael Holley MD Location:[facility] Appointment Type: Open Future Scheduled TestsLipid Panel 09/07/23US Breast Unilateral Lt Complete 03/27/23US Breast Unilateral Rt Complete 03/27/23MA Mamm Diag w/CAD if perf and 3D Manny 09/20/23 [facility] Evaluation + Plan note Future Appointments Appointment Date:01/31/2024 04:00:00 PM Scheduled Provider:Roshan CHANEY MD Location:[facility] Appointment Type: Post Op 15 Appointment Date:02/27/2024 01:00:00 PM Scheduled Provider:Michael Holley MD Location:[facility] Appointment Type: Open Future Scheduled TestsLipid Panel 09/07/23US Breast Unilateral Lt Complete 03/27/23US Breast Unilateral Rt Complete 03/27/23MA Mamm Diag w/CAD if perf and 3D Manny 09/20/23 [facility] Evaluation + Plan note Future Appointments Appointment Date:02/27/2024 01:00:00 PM Scheduled Provider:Michael Holley MD Location:[facility] Appointment Type:FM Open Appointment Date:02/27/2024 03:00:00 PM Scheduled Provider:Roshan CHANEY MD Location:[facility] Appointment Type: Established 15 Future Scheduled TestsLipid Panel 09/07/23US Breast Unilateral Lt Complete 03/27/23US Breast Unilateral Rt Complete 03/27/23MA Mamm Diag w/CAD if perf and 3D Manny 09/20/23 [facility] Evaluation note No assessment inform ation available [facility] Work Phone: Evaluation note Diagnosis Onset Date Breast cancer, left acute Encounter for screening for osteoporosis acute [facility] Work Phone: Hospital course Narrative No data available for this section [facility] No data available [facility] this section [facility] No data available for this section [facility] ([facility]ative) Referred by: Roshan CHANEY MD Referred by: APARNA PRATT, Roshan Horner [facility] Summary Purpose Family History Relationship Condition Age at Onset Recorded Date/T thony family member Malignant neoplasm of breast Unknown Advance Directives Advance Directive Response Recorded Date/ Time Advance Directives No February 04 1:52pm Chief Complaint and Reason for Visit Chief Complaint Unknown NEW breast cancer breast cancer Unknown Reason for Visit Breast cancer, left Encounter for screening for osteoporosis Chief Complaint Unknown NEW breast cancer Reason for Visit Breast cancer, left Encounter for screening for osteoporosis Additional Source Comments INFORMATION SOURCE (unrecogn ized section and content) DATE CREATED AUTHOR 09/08/2021 [facility] DATE CREATED AUTHOR AUTHOR'S ORGANIZ ATION 02/15/2024 [facility] DATE CREATED AUTHOR AUTHOR'S ORGANIZ ATION 02/21/2024 [facility] Patient Care team informatio n (unrecognized section and content) Team Status: Active Member Role Status Dates Rhina Krishnan MD Primary Care Provider Active Team Status: Inactive Member Role Status Dates Rhina Krishnan MD Primary Care Provider Active S tart: January 10, 2024 End: January 10, 20[address]han [address] [facility] Attending Provider Active Start: January 10, 2024 End: January 10, 2024 Team Status: Active Member Role Status Dates Michael Holley MD Primary Care Provider Active Team Status: Inactive Member Role Status Dates Rhina Krishnan MD Primary Care Provider Active S tart: February 08, 2024 End: February 08, 2024 Kush Glez MD Attending Provider Active Start: February 08, 2024 End: February 08, 2024 Roshan Chaney MD FACS Referring Provider Active Start: February 08, 2024 End: February 08, 2024 Team Status: Active Member Role Status Dates Michael Holley MD Primary Care Provider Active Start: February 13, 2024 Kush Glez MD Attending Provider Active Start: February 13, 2024 Roshan Chaney MD FACS Referring Provider Active Start: February 13, 2024 Team Status: Inactive Member Role Status Dates Michael Holley MD Primary Care Provider Active Start: February 20, 2024 End: February 20, 2024 Roshan Chaney MD FACS Attending Provider Active Start: February 20, 2024 End: February 20, 2024 Goals (unrecognized section and content) Goals may be documented in a n alternate section FOR RECORDS PERTAINING TO PATIENTS WHO ARE [...] BE BASED ON THE PRIMARY CLINICAL RECORDS. [employer] provides no warranty or guarantee of the accuracy or completeness of information in this document.
== END 2024-02-20 16:06 | disposition home or self-care (01) ==
LOC: LAB 16:05
PROVIDERS: PCP Family Medicine; Visit Provider Surgery
DX: D22.9 Melanocytic nevi, unspecified (principal)
CPT/HCPCS: 88305

== ENCOUNTER 2025-07-09 13:00 | Outpatient (OUT) | payer MEDICARE, SELFPAY ==
--- OUTSIDE RECORDS SUMMARY | 2025-07-09 13:04 | XMS_ITS | Clinical Summary ---
Author Organization [facility] Address [address] [place] [address] Care Team Providers Care Brand Activation Manager Name Role Phone Rhina Krishnan MD Primary Care Provider [phone] Allergies Active AllergyReactionsCriticalityNoted DateCommentsCorticosteroidsAnaphylaxis High05/29/20238400ZfhpckstduRtatsqgVklrdf45/26/2023seudoephedrineUnknownMedium 05/30/2023 Medications MedicationSigDispense QuantityRefillsLast FilledStart DateEnd DateStatus Cannabinoids (medical cannabis) Medical MarijuanaActive cyclobenzaprine (Flexeril) 10 MG tablet 1 tablet Orally at bedtime PRN01/10/2023ctive dronabinol (Marinol) 10 MG capsule 1 capsule every 12 (twelve) hours.Active gabapentin (Neurontin) 600 MG tablet 1 capsule every 12 (twelve) hours.Active lidocaine (Lidoderm) 5 % patch 1 (one) time each day at the same time.Active oxyMORphone ER (Opana) 20 MG 12 hr tablet every 12 (twelve) hours.Active ALPRAZolam (Xanax) 0.25 MG tablet Take 0.25 mg by mouth in the morning and 0.25 mg in the evening and 0.25 mg before bedtime.Active Family History Medical HistoryRelationNameCommentsDiabetesMaternal GrandmotherCancerMother DiabetesSiblingRelationNameStatusCommentsMaternal GrandmotherMotherDeceased Sibling Social History Tobacco UseTypesPacks/DayYears UsedDateSmoking Tobacco: Never Tobacco Cessation:Counseling Given: Not Answered Alcohol UseStandard Drinks/WeekCommentsYes0 (1 standard drink = 0.6 oz pure alcohol)Alcohol: 1 or 2 drinks on a typical day/monthly or less Caffeine: 1-2 cups/day soda/pop (pepsi), occasionally coffeeCommentsNoSex and Gender InformationValueDate RecordedSex Assigned at BirthNot on fileLegal SexFemale 11/16/2022 7:25 PM EDTGender IdentityNot on fileSexual OrientationNot on file Last Filed Vital Signs Vital SignReadingTime TakenCommentsBlood Ejjgdvkz105/7209 3:17 PM EDT Pulse--Temperature--Respiratory Rate--Oxygen Saturation--Inhaled Oxygen Concentration--Mgpvhs44.4 kg (153 lb)05/30/2023 3:17 PM EDTHeight--Body Mass Index-- Plan of Treatment Not on file Insurance Care Teams Team MemberRelationshipSpecialtyStart DateEnd Date Rhina Krishnan MD [address] [place] [place] [phone] PCP - GeneralFamily Medicine02/12/24
--- OUTSIDE RECORDS SUMMARY | 2025-07-09 13:14 | XMS_ITS | CCD ---
Author Organization [facility] Providers Care Theatre Arts Professor Name Role Phone DR ESTELA KRISHNAN Attending Unavailable PERLA, DR ESTELA Jonas Consulting Unavailable PERLA, DR ESTELA Jonas Primary Care Unavailable PERLA, DR ESTELA Jonas Admitting Unavailable Michael Holley. Primary Care Physician MD Estela Krishnan Primary Care Provider [phone] MD Roshan Braun Attending Provider MD Mihcael Holley Primary Care Provider [phone] MD Newton tara Reed Attending Provider [phone] MD Roshan Braun Referring Provider [phone] Roshan BRAUN Admitting Unavailable NILL, Roshan Horner Attending Unavailable NILL, Roshan R Referring Unavailable NILL, Roshan R Attending Unavailable NILL, Roshan R Attending Unavailable Michael Holley Attending Unavailable Michael Holley Attending Unavailable Michael Holley Attending Unavailable Michael Holley Attending Unavailable Michael Holley Attending Unavailable NILL, Roshan R Attending Unavailable NILL, Roshan R Attending Unavailable NILL, Roshan R Attending Unavailable NILL, Roshan R Attending Unavailable NILL, Roshan R Attending Unavailable NILL, Roshan R Attending Unavailable NILL, Roshan R Attending Unavailable NILL, Roshan R Attending Unavailable NILL, Roshan R Attending Unavailable Michael Holley Attending Unavailable Michael Holley Attending Unavailable Michael Holley Attending Unavailable Osmin PAUL Admitting Unavailable Osmin PAUL Attending Unavailable NONE, XXXX Referring Unavailable Osmin PAUL Attending Unavailable Michael Holley Referring Unavailable Osmin PAUL Admitting Unavailable Osmin PAUL Admitting Unavailable Osmin PAUL Attending Unavailable Osmin PAUL Referring Unavailable Roberto Sosa Consulting MD Roberto Moore Consulting Unava ilable Roberto Sosa Consulting Unavaila ble Michael Holley Admitting Unavailable Michael Holley Attending Unavailable NILL, Roshan R Admitting Unavailable NILL, Roshan R Attending Unavailable NILL, Roshan R Referring Unavailable NILL, Roshan R Attending Unavailable MD Michael Holley Primary Care Provider MD Kush Glez Attending Provider MD Roshan Braun Referring Provider MD Miquel Bustamante Attending Provider [phone] NILL, Roshan R Referring Unavailable NILL, Roshan R Admitting Unavailable NILL, Roshan Horner Attending Unavailable Michael Holley Attending Unavailable Michael Holley Attending Unavailable NILL, Roshan R Admitting Unavailable NILL, Roshan R Attending Unavailable NILL, Roshan R Referring Unavailable NILL, Roshan R Referring Unavailable NILL, Roshan R Attending Unavailable NILL, Roshan R Admitting Unavailable Michael Holley Attending Unavailable Michael Holley Admitting Unavailable NILL, Roshan R Referring Unavailable NILL, Roshan R Admitting Unavailable NILL, Roshan R Attending Unavailable NILL, Roshan R Attending Unavailable NILL, Roshan R Referring Unavailable NILL, Roshan R Admitting Unavailable Michael Holley MD Primary Care Provider [place] Elda SELBY Attending Provider Kush Glez MD Attending Provider Roshan Braun MD Referring Provider Mode Ellsworth DO Emergency Provider Joe Garcia MD Admit Provider Joe Garcia MD Attending Provider Roshan Reynoso MD Other Provider Josseline Simpson MD Other Provider Frank Paez DO Other Provider Raisa Enriquez MD Other Provider Dorothy Bone MD Other Provider Demarcus Tiff Other Provider Cynthia Clayton APRN Other Provider Elda De Leon Other Provider [phone] Danielle Perdomo Other Provider Newton PRATT, Kush Reed Other Provider Vernell Pierce APRN Other Provider Kami Lara Other Provider Jair Weber MD Other Provider Estela Krishnan MD Primary Care Provider Danielle Somers Other Provider Kami Moody Other Provider Newton PRATT, Kush Reed Attending Provider [phone] Roshan Braun MD Referring Provider Roshan Reynoso MD Attending Provider Michael Holley MD Primary Care Provider Newton PRATT, Kush Reed Attending Provider [phone] Roshan Braun MD Referring Provider Elda Hurtado APRN Attending Provider [phone] Newton PRATT, Kush Reed Attending Provider [phone] Roshan Braun MD Referring Provider Newton PRATT, Kush Reed Attending Provider Roshan Braun MD Referring Provider Michael Holley MD Primary Care Provider Mode Ellsworth DO Emergency Provider Joe Garcia MD Admit Provider Joe Garcia MD Attending Provider Roshan Reynoso MD Other Provider Calvin PRATT, Josseline Other Provider Frank Paez DO Other Provider Mina PRATT, Raisa Other Provider Lizandro PRATT, Dorothy Other Provider Tiff Tracy Other Provider Cynthia Clayton APRN Other Provider [phone] Elda De Leon Other Provider [phone] Danielle Somers Other Provider Newton PRATT, Kush Reed Other Provider [phone] Vernell Pierce APRN Other Provider Kami Moody Other Provider Tia PRATT, Jair Other Provider Angeles PRATT, Roshan Attending Provider Elda Hurtado APRN Attending Provider Newton PRATT, Kush Reed Attending Provider Roshan Braun MD Referring Provider Newton PRATT, Kush Reed Attending Provider Aparna PRATT, Roshan Horner Referring Provider Michael Holley MD Primary Care Provider Newton PRATT, Kush Reed Attending Provider [phone] Roshan Braun MD Referring Provider Aparna PRATT, Roshan Horner Referring Provider [phone] Newton PRATT, Kush Reed Attending Provider Roshan Braun MD Referring Provider Newton PRATT, Kush Reed Attending Provider Michael Holley MD Primary Care Provider Elda Hurtado APRN Attending Provider [phone] Roshan Braun MD Referring Provider Kush Glez MD Attending Provider Michael Holley MD Primary Care Provider Newton PRATT, Kush Reed Attending Provider Elda Hurtado APRN Attending Provider [phone] Elda Hurtado APRN Other Provider Linnette Elizabeth MD Attending Provider Kush Glez MD Referring Provider Roshan Braun MD Referring Provider Linnette Elizabeth MD Other Provider Michael Holley MD Primary Care Provider Elda Hurtado APRN Attending Provider Kush Glez MD Attending Provider Elda Hurtado APRN Other Provider Cynthia Clayton APRN Attending Provider Michael Holley MD Primary Care Provider Elda Hurtado APRN Attending Provider Elda Hurtado APRN Other Provider Kush Glez MD Attending Provider Michael Holley MD Primary Care Provider Kush Glez MD Attending Provider Michael Holley Primary Care Unavailable Elda Hurtado Attending Unavailable Elda Hurtado Admitting Unavailable Elda Hurtado Attending Unavailable Geensis, Elda M Admitting Unavailable Ross, Michael E Primary Care Unavailable Ross, Michael E Primary Care Unavailable Genesis, Elda M Attending Unavailable Genesis, Elda M Admitting Unavailable Ross, Michael E Primary Care Unavailable Genesis, Elda M Admitting Unavailable Genesis, Elda M Attending Unavailable Ross, Michael E Primary Care Unavailable Genesis, Elda M Admitting Unavailable Genesis, Elda M Attending Unavailable Ross, Michael E Primary Care Unavailable Genesis, Elda M Attending Unavailable Genesis, Elda M Admitting Unavailable Angeles, Roshan Admitting Unavailable Angeles, Roshan Attending Unavailable Ross, Michael E Primary Care Unavailable Blank, Roshan Attending Unavailable Ross, Michael E Primary Care Unavailable Roshan Reynoso Admitting Unavailable Ross, Michael E Primary Care Unavailable Miquel Bustamante Attending Unavailable Miquel Bustamante Admitting Unavailable Joe Garcia Attending Unavailable Roshan Reynoso Consulting Unavailable Ross, Michael E Primary Care Unavailable Joe Garcia Admitting Unavailable Josseline Simpson Consulting Unavailable Frank Paez II Consulting Unavaila Raisa Bates Consulting Unavailable Dorothy Bone Consulting Unavailable Tiff Tracy Consulting Unavailable Cynthia Clayton Consulting Unavail able Elda De Leon Consulting Unavailable Danielle Somers Consulting Unavailable Kush Glez Consulting UnavailVernell Arciniega Consulting Unavailable Kami Moody Consulting Unavailable Jair Weber Consulting Unavailable Ross, Michael E Primary Care Unavailable GenesisRoyalElda M Attending Unavailable Genesis, Elda M Admitting Unavailable Ross, Michael E Primary Care Unavailable Genesis, Elda M Attending Unavailable Genesis, Elda M Admitting Unavailable Ross, Michael E Primary Care Unavailable Genesis, Elda M Attending Unavailable Genesis, Elda M Admitting Unavailable Ross, Michael E. Attending Unavailable Ross, Michael E. Attending Unavailable Ross, Michael E. Attending Unavailable Ross, Michael E. Admitting Unavailable Ross, Michael E. Attending Unavailable Roshan BRAUN Attending Unavailable Roshan BRAUN Attending Unavailable Juan J Caballero Primary Care Physician [phone] Bobbs, Shauni L. Attending Unavailable Juan J Caballero Admitting Unavailable Michael Holley Attending Unavailable Michael Holley Attending Unavailable Michael Holley Attending Unavailable MICHAEL REEDER Attending Unavailable Ilana-Kush Hooker Yaaaliyah Admitting Unavailabl e Al-Nhung, Kush Yaaaliyah Attending Unavailabl e Juan J Caballero Admitting Unavailable Juan J Caballero Attending Unavailable Michael Holley Admitting Unavailable Roshan BRAUN R Attending Unavailable Roshan BRAUN R Attending Unavailable Michael Holley Attending Unavailable MICHAEL REEDER Attending Unavailable Michael Holley Attending Unavailable Michael Holley Attending Unavailable Michael Holley Attending Unavailable Michael Holley Attending Unavailable MICHAEL REEDER Attending Unavailable MICHAEL REEDER Attending Unavailable Allergies Allergy ClassificationReported Allergen(s)Allergy TypeDate of OnsetReaction(s) FacilityAdrenergic Agonists (1 source)PseudoephedrineDrug Ekddtpa59-38-2505Hwspcaz ReactionSelect [facility], [place]onCorticosteroids (1 source)CorticosteroidsDrug Evbzxjh91-08-3755Nzyxamn ReactionSelect Medical [facility], [place]onmetaxalone (1 source)metaxaloneDrug Ddveoja69-12-1209Vxoxnso ReactionSelect Medical [facility], [place] (1 source)HydrocortisoneDrug Jjlrptm58-40-9650Tyz [facility] (1 source)methylPREDNISoloneDrug Flpqnem51-00-6244Omb [facility] (1 source)prednisoLONEDrug Mjvtmzk54-72-5126Eoh [facility] (1 source)predniSONEDrug Ritlvlz24-55-5776Shf [facility] (1 source)Decon-ADrug allergy (disorder)66-41-0075VyySelect [facility] (1 source)Decon-GDrug allergy (disorder)59-16-8738Ogv [facility] (20 sources)metaxalone; Translations: [metaxalone]Drug Kqzablh86-74-2657Hzjkuyu (qualifier value)[facility] (20 sources)Pseudoephedrine; Translations: [pseudoephedrine]Drug Allergy 86-70-3114Uyqmktp (qualifier value), UnknownOhio[facility] Hospital (20 sources)Corticosteroids; Translations: [corticosteroids]Propensity to adverse reactions to bvcw37-30-0019Ikfxppzxxqt (disorder), AnaphylaxisGeneral Surgery Edwards (20 sources)CorticosteroidsAllergy to qqmwpwmoj42-24-2816Ypxoklj Reaction [facility] [place] (2 sources)metaxaloneDrug Fxcygsa85-28-4961JboiqawORCA Healthcare Medications Current Medications MedicationDrug Class(es)DatesSig (Normalized)Sig (Original)alendronic acid 70 mg effervescent oral tablet (9 sources)BisphosphonateStart: 79-87-8557kawg 1 mg by mouth every week alendronate 70 mg oral tablet, effervescent mg tab(s), Oral, qWeek, Refills(s) 0 Start Date: 06/16/25 Status: Ordered Repeat number: 1Start: 27-65-4668ytqd 1 tablet by mouth every weekALPRAZolam 0.25 mg oral tablet (20 sources)BenzodiazepineStart: 20-05-0064draqmgxxxw 0.25 mg Tab See Instructions, 1 tab tid prn, # 90 tab(s), Refills(s) 0, Pharmacy: [facility], 165.5, cm, 03/25/25 12:55:00 EDT, Height/Length Dosing, 55.5, kg, 03/25/25 12:55:00 EDT, Weight Dosing Start Date: 03/25/25 Status: Ordered Quantity: 90.0 Unit: tab(s) Repeat number: 1 Indications: Anxiety disorder, unspecified;Calcium (1 source)Phosphate Binder, CalciumStart: 93-59-5697wrimooj calcium Start Date: 06/16/25 Status: Ordered Repeat number: 1Cannabinoids (medical cannabis) (2 sources)Cannabinoids (medical cannabis) Medical Marijuana Active cyclobenzaprine hydrochloride 10 mg oral tablet (20 sources)Muscle RelaxantStart: 19-43-6399bygv 1 tablet by mouth at bedtime as needed for muscle spasmscyclobenzaprine 10 mg Tab 10 mg = 1 tab(s), Oral, Bedtime, PRN for spasm, # 14 tab(s), Refills(s) 0, Pharmacy: [facility], 165.5, cm, 10/22/24 16:03:00 EST, Height/Length Dosing, 60.8, kg, 10/22/24 16:03:00 EST, Weight Dosing Start Date: 12/02/24 Status: Ordered Quantity: 14.0 Unit: tab(s)Repeat number: 1dronabinol 10 mg oral capsule (2 sources)Cannabinoidtake 1 capsule by mouth every twelve hoursdronabinol (Marinol) 10 MG capsule 1 capsule every 12 (twelve) hours. Activefluconazole 150 mg oral tablet (1 source)Azole AntifungalStart: 54-39-6082yexn 1 tablet by mouth onceDiflucan 150 mg Tab 150 mg = 1 tab(s), Oral, Once, # 1 tab(s), Refills(s) 0, Pharmacy: [facility], 170.2, cm, 08/09/23 15:59:00 EST, Height/Length Dosing, 69.3, kg, 08/09/23 15:59:00 EST, Weight Dosing Start Date: 08/09/23 Status: Orderedfluticasone propionate 0.05 mg/actuat metered dose nasal spray (20 sources)CorticosteroidStart: 91-05-2323Tkqcfyk 0.05 mg/inh Amalia 1 spray(s), Nasal, Daily, 15.8 mL, Refill(s) 2, [facility], 160.5, cm, 06/16/25 14:45:00 EDT, Height/Length Dosing, 52.3, kg, 06/16/25 15:11:00 EDT, Weight Dosing Start Date: 06/16/25 Status: Ordered Quantity: 15.8 Unit: mL Repeat number: 3Start: 27-35-0146Daeov: 12-67-4400kryp 2 spray(s) nasal route once dailyFlonase 0.05 mg/inh Amalia 2 spray(s), Nasal, Daily, 16 gram, Refill(s) 0, each nostril, [facility], 165.5, cm, 08/06/24 13:24:00 EST, Height/Length Dosing, 67.6, kg, 08/06/24 13:24:00 EST, Weight Dosing Start Date: 08/06/24 Status: Orderedfurosemide 20 mg oral tablet (11 sources)Loop DiureticStart: 42-27-6309tcbj 1 tablet by mouth once daily gabapentin 300 mg oral capsule (20 sources)Anti-epileptic AgentStart: 18-58-7449ifld 1 capsule by mouth twice dailygabapentin 300 mg Cap See Instructions, TAKE 1 CAPSULE BY MOUTH TWICE DAILY, # 180 cap(s), Refills(s) 0, Pharmacy: [facility], 165.5, cm, 03/25/25 12:55:00 EDT, Height/Length Dosing, 55.5, kg, 03/25/25 12:55:00 EDT, Weight Dosing Start Date: 05/12/25 Status: Ordered Quantity: 180.0 Unit: cap(s) Repeat number: 1Start: 06-94-8858pikg 1 capsule by mouth three times dailyStart: 10-35-7380tywn 1 capsule by mouth twice dailyGabapentin 300 mg capsule Active 300 MG PO Twice daily February 07, 2024 11:00pmtake 1 tablet by mouth every twelve hoursgabapentin (Neurontin) 600 MG tablet 1 capsule every 12 (twelve) hours. ActivehydroCHLOROthiazide 12.5 mg / losartan potassium 50 mg oral tablet (20 sources)Thiazide Diuretic, Angiotensin 2 Receptor BlockerStart: 01-13-2025 hydrochlorothiazide-losartan 12.5 mg-50 mg Tab See Instructions, 90 tab(s), Refill(s) 3, TAKE 1 TABLET BY MOUTH DAILY, [facility], 165.5, cm, 12/12/24 13:51:00 EDT, Height/Length Dosing, 58.5, kg, 12/12/24 13:51:00 EDT, Weight Dosing Start Date: 01/13/25 Status: Ordered Quantity: 90.0 Unit:tab(s) Repeat number: 1Start: 11-27-2023 End: 68-89-3520xegu 1 tablet by mouth once dailyLosartan-Hydrochlorothiazide 50- 12.5 mg tablet Discontinued 1 TAB PO Daily February 08, 2024 12:00am 2024 1:04pmStart: 61-03-9838oltl 1 tablet by mouth once dailyHyzaar 12.5 mg-50 mg Tab 1 tab(s), Oral, Daily, 30 tab(s), Refill(s) 3, [facility], 170.2, cm, 09/07/23 13:37:00 EST, Height/Length Dosing, 68.6, kg, 09/07/23 13:37:00 EST, Weight Dosing Start Date: 09/07/23 Status: OrderedIron (1 source)Start: 44-55-8451xouv iron Start Date: 06/16/25 Status: Ordered Repeat number: 1letrozole 2.5 mg oral tablet (8 sources)Aromatase InhibitorStart: 35-54-4967vude 1 tablet by mouth once daily lidocaine 0.05 mg/mg medicated patch (2 sources)Antiarrhythmic, Amide Local Anestheticlidocaine (Lidoderm) 5 % patch 1 (one) time each day at the same time. ActiveClaritin (9 sources)Start: 67-99-6234Bbovjqpo Daily, Refills(s) 0 Start Date: 06/16/25 Status: Ordered Repeat number: 1Start: 99-17-3965jvkc 1 tablet by mouth once dailylosartan potassium 25 mg oral tablet (20 sources)Angiotensin 2 Receptor BlockerStart: 21-84-6296njbs 1 tablet by mouth once daily24 hr metoprolol succinate 50 mg extended release oral tablet (20 sources)beta-Adrenergic BlockerStart: 96-10-6139qqzr 1 tablet by mouth once dailyToprol XL 50 mg Tab-ER 50 mg, Oral, Daily, # 90 EA, Refills(s) 1, Pharmacy: [facility], 165.5, cm, 10/22/24 16:03:00 EST, Height/Length Dosing, 60.8, kg, 10/22/24 16:03:00 EST, Weight Dosing Start Date: 10/22/24 Status: Ordered Quantity: 90.0 Unit: EA Repeat number: 2Misc Medication (7 sources)Start: 79-59-9981Khiv Medication See Instructions, balance of nature- 3 tabs a day Start Date: 06/11/24 Status: Ordered Repeat number: 1Start: 17-62-3434Igmy Medication See Instructions, balance of nature-3 tabs a day Start Date: 06/11/24 Status: Orderedmometasone furoate 1 mg/ml topical cream (6 sources)CorticosteroidStart: 14-20-3617tshmgeon hydrochloride 40 mg/ml nasal spray (5 sources)Opioid AntagonistStart: 23-84-6083Ktrybjiv 4 mg/actuation spray,non-aerosol (19 sources)Start: 15-13-5070Tfvazyyy 4 mg/actuation spray,non-aerosol Active 4 MG INTRANASAL every 2 to 3 minutes as needed foropioid overdose August 22, 2024 1:00am spray 1 dose into ONE nostril; alternate nostrils w each dose until help arrivesStart: 08-39-2865Ypiuocif 4 mg/actuation spray,non-aerosol Active 4 MG INTRANASAL every 2 to 3 minutes as needed foropioid overdose August 22, 2024 12:00am spray 1 dose into ONE nostril; alternate nostrils w each dose until help arrivesondansetron 8 mg disintegrating oral tablet (20 sources)Serotonin-3 Receptor AntagonistStart: 88-87-3198ootr 1 tablet by mouth every eight hours as needed for nausea and yiwjtedm24 hr oxyMORphone hydrochloride 20 mg extended release oral tablet (2 sources)Opioid AgonistoxyMORphone ER (Opana) 20 MG 12 hr tablet every 12 (twelve) hours. Activepantoprazole 40 mg delayed release oral tablet (19 sources)Proton Pump InhibitorStart: 46-53-2578Trusyojhmlig [address] Tab Refills(s) 0 Start Date: 06/16/25 Status: Ordered Repeat number: 1Start: 31-66-5222wmux 1 tablet by mouth once dailyStart: 02-28-2025 End: 27-51-8945dkea 40 mg by mouth once dailyPantoprazole (Protonix) [address] for susp in packet Discontinued 40 MG PO Daily February 28, 2025 12:00am February 28, 2025 1:59pmStart: 01-01-2025 End: 13-54-9237sizb 1 tablet by mouth once dailyPantoprazole 20 mg tablet,delayed release (DR/EC) Discontinued 20 MG PO Daily January 01, 2025 12:00am February 28, 2025 1:59pmmicroencapsulated potassium chloride 20 meq extended release oral tablet (11 sources)Start: 55-92-2658nnmeinijthkrhhnh 10 mg oral tablet (20 sources)PhenothiazineStart: 84-83-3585aafr 1 tablet by mouth every six hours as needed for nausea and vomitingsilver sulfADIAZINE 10 mg/ml topical cream (4 sources)Sulfonamide AntibacterialStart: 33-63-1432ncapfzacfsbmzkjn 800 mg / trimethoprim 160 mg oral tablet (20 sources)Dihydrofolate Reductase Inhibitor Antibacterial, Sulfonamide AntimicrobialStart: 53-99-0823munnnvuthiuighdt-trimethoprim 800 mg-160 mg Tab Refill(s) 0 Start Date: 06/11/24 Status: OrderedStart: 06-05-2024 End: 45-23-9856izhp 1 tablet by mouth twice dailySulfamethoxazole-Trimethoprim (Bactrim Ds) 800-160 mg tablet Discontinued 1 TAB PO Twice daily 23 06June 05, 2024 12:00am August 21, 2024 4:10pmvitamin B12 (1 source)Vitamin Z91Zujau: 95-48-0295Edlctqw B12 Refills(s) 0 Start Date: 06/16/25 Status: Ordered Repeat number: 1Vitamin D3 (1 source)Start: 39-93-1916Hvssjee D3 Refills(s) 0 Start Date: 06/16/25 Status: Ordered Repeat number: 1 Completed/Discontinued Medications MedicationDrug Class(es)DatesSig (Normalized)Sig (Original)acetaminophen 325 mg / oxyCODONE hydrochloride 10 mg oral tablet (20 sources)Opioid AgonistStart: 12-19-2024 End: 65-90-8604ovjj 1 tablet by mouth every four to six hours as needed for pain Oxycodone-Acetaminophen 10-325 mg tablet Discontinued 1 TAB PO EVERY 4-6 HOURS as needed for pain 150 March 20, 2025 April 16, 2025 2:56pmStart: 10-17-2024 End: 96-06-4487dwty 1 tablet by mouth every six hours as needed for pain Oxycodone-Acetaminophen 5-325 mg tablet Discontinued 1 TAB PO Every 6 hours as needed for pain 120 November 11, 2024 December 19, 2024 12:13pmStart: 08-22-2024 End: 50-41-4778fonn 1 tablet by mouth every eight hours as needed for pain acetaminophen-oxycodone 325 mg-5 mg Tab TAKE ONE TABLET EVERY 8 HOURS BY MOUTH NEEDED FOR PAIN FOR 30 DAYS Start Date: 2/4/25 Status: Ordered Repeat number: 1Start: 05-30-2024 End: 94-91-9403eubw 1 tablet by mouth every six hoursOxycodone-Acetaminophen 5- 325 mg tablet Discontinued 1 TAB PO Every 6 hours May 30, 2024 12:00am August 22, 2024 4:31pmStart: 05-16-2024 End: 15-26-4922qlmp 1 tablet by mouth every six hoursPercocet 5 mg-325 mg oral tablet 1 tab(s), Oral, q6hr, 12 tab(s), Refill(s) 0, [facility], 170, cm, 05/16/24 8:11:00 EDT, Height/Length Dosing, 67.9, kg, 05/16/24 8:11:00 EDT, Weight DosingStart Date: 05/21/24 Stop Date: 05/26/24 Status: Orderedamoxicillin 875 mg / clavulanate 125 mg oral tablet (20 sources)Penicillin-class AntibacterialStart: 2024 End: 96-60-6347qjoz 1 tablet by mouth twice dailyAmoxicillin-Pot Clavulanate 875-125 mg tablet Discontinued 1 TAB PO Twice daily 60 September 1:00am October 30, 2024 11:07amaspirin 81 mg delayed release oral tablet (20 sources)Platelet Aggregation Inhibitor, Nonsteroidal Anti-inflammatory Drug Start: 05-88-4044tenx 1 tablet by mouth once dailycetirizine hydrochloride 10 mg oral tablet (20 sources)Histamine-1 Receptor AntagonistStart: 09-17-2024 End: 03-40-4865gagm 1 tablet by mouth once dailyCetirizine 10 mg tablet Discontinued 10 MG PO Daily September 17, 2024 1:00am January 01, 2025 9:45am Start: 81-57-1406swdt 1 tablet by mouth once dailycetirizine 10 mg Tab 10 mg = 1 tab(s), Oral, Daily, # 90 tab(s), Refills(s) 0, Pharmacy: [facility], 165.5, cm, 08/06/24 13:24:00 EST, Height/Length Dosing, 67.6, kg, 08/06/24 13:24:00 EST,Weight Dosing Start Date: 08/06/24 Status: OrderedDULoxetine 30 mg delayed release oral capsule (20 sources)Serotonin and Norepinephrine Reuptake InhibitorStart: 71-39-5973zxen 1 capsule by mouth once dailyduloxetine 30 mg oral delayed release capsule 30 mg = 1 cap(s), Oral, Daily, TAKE ONE CAPSULE BY MOUTH ONCE DAILY, # 90 cap(s), Refills(s) 4, [facility], 165.5, cm, 12/12/24 13:51:00 EDT, Height/Length Dosing, 58.5, kg, 12/12/24 13:51:00 EDT, Weight Dosing Start Date: 01/02/25 Status: Ordered Quantity: 90.0 Unit: cap(s) Repeat number: 5Start: 01-01-2025 End: 63-41-1111wkji 1 capsule by mouth once dailyDuloxetine 60 mg capsule,delayed release(DR/EC) Discontinued 60 MG PO Daily February 19, 2025 12:53pm April 16, 2025 2:56pmStart: 10-17-2024 End: 09-61-7108jtvw 1 capsule by mouth once dailyDuloxetine 30 mg capsule,delayed release(DR/EC) Discontinued 30 MG PO daily October 30, 2024 1:12pm January 01, 2025 11:08amHandicap Placard, 5 years. (1 source)Start: 84-97-2018Hizlpiyz Placard, 5 years. Handicap Placard, 5 years., See Instructions, 1 EA, 0, Handicap Placard,5 years., Supply Start Date: 10/08/24 Status: Ordered Quantity: 1.0 Unit: EA Repeat number: 1 Indications: Unspecified symptoms and signs involving the genitourinary system; Body mass index [BMI] 21.0-21.9, adult; Encounter for follow-up examination after completed treatment for conditions other thanmalignant neoplasm; Pneumonia, unspecified organism; Other pancytopenia; Other specified health status; Malignant neoplasm of lower-inner quadrant of left female breast;Magic Mouthwash W/Lidocaine 240 Ml Bottle 240 mL bottle (5 sources)Start: 02-28-2025 End: 50-27-2315gxud 1 tablet by mouth every six hours as neededMagic Mouthwash W/Lidocaine 240 Ml Bottle 240 mL bottle Discontinued 5 - 10 ML PO Q6H as needed forMucositis 240 February 28, 2025 12:00am February 28, 2025 1:01pm hydrocortisone 20 mg tablet 120 mg; diphenhydramine 12.5 mg/5 mL oral liquid 60 mL; Ora-Sweet oral syrup 60 mL; nystatin 100,000 unit/mL oral suspension 60 mL; Lidocaine Viscous 2 % mucosal solution 60 mL; Per 240 mL Instructions - Swish and Swallow dose 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 2-5 today02/28 Problems Active Problems Problem ClassificationProblemDateDocumented DateEpisodic/ChronicAdjustment disorders (20 sources)Adjustment disorder with mixed anxiety and depressed mood; Translations: [Adjustment disorder with mixed anxiety and depressed mood] 95-61-3521SpcydipAlozser disorders (20 sources)Generalized anxiety disorder; Translations: [Anxiety]03-21-2023 ChronicAttention-deficit, conduct, and disruptive behavior disorders (20 sources)Attention deficit hyperactivity qthuiblq07-48-3614QebsofbCfasyz of breast (20 sources)Malignant neoplasm of lower-inner quadrant of left female breast; Translations: [Malignant neoplasmof lower-inner quadrant of female breast]Onset: 79-33-0156XoofzxuUjxmiovejrnh of device; implant or graft (7 sources)Infection AND/OR inflammatory reaction due to internal prosthetic device, implant AND/OR graft; Translations: [Infection and inflammatory reaction due to other internal prosthetic devices, implants and grafts, initial encounter]Onset: 91-20-4026JaxusfjrAbwgryzufx and other anemia (20 sources)Pancytopenia; Translations: [Other pancytopenia]14-97-8272Yjnkvuo Deficiency and other anemia (13 sources)Other pancytopenia; Translations: [Other pancytopenia]Onset: 842106-56-2343ThekvaxXeqrsyinwu and other anemia (20 sources)Anemia; Translations: [Anemia, unspecified]05-50-2515Iwzgqbwx Essential hypertension (18 sources)Hypertensive gmyougkr95-67-2247UycdvdkJobvcrimlivlv symptoms and ill-defined conditions (20 sources)Dysuria; Translations: [Urinary symptoms ]69-28-0010GsklnviiHpamod and vomiting (20 sources)Nausea; Translations: [Nausea]91-27-2971TgepxbvmTpnadmlch of unspecified nature or uncertain behavior (20 sources)Neoplasm of uncertain behavior of skin of back; Translations: [Neoplasm of uncertain behavior of skin of face]46-81-0177GoetfgsoOwuyhbbuwgpz breast conditions (20 sources)Breast lump; Translations: [Discharge from nipple]Onset: 08-09-2023 23-42-7357MoenizaxSxvma acquired deformities (20 sources)Scoliosis deformity of zious11-94-3448WvgkqnfXcnug aftercare (20 sources)Patient encounter status; Translations: [Encounter for palliative care]11-71-8362GbqkfwpbZvsff aftercare (12 sources)Encounter for palliative care; Translations: [Encounter for palliative care]45-56-2685KscebhszOwfzr aftercare (20 sources)Immunodeficiency secondary to chemotherapy ; Translations: [Immunodeficiency secondary to chemotherapy]11-23-3483KrldyqvwEdjoy aftercare (1 source)Procedure carried out on subject; Translations: [Encounter for adjustment and management of vascular access device]Onset: 29-91-7481Yhxumbxq Other and unspecified benign neoplasm (11 sources)Dermal cellular -25-4722QxakjecwQxxsp bone disease and musculoskeletal deformities (20 sources)Osteopenia; Translations: [Other specified disorders of bone density and structure, unspecified site]73-06-1987XelscqtoNfoal circulatory disease (7 sources)Difficult venous tfeelq60-38-5112ZgduhkdvXzeio connective tissue disease (20 sources)H/O: yvtvdcmesdxnei13-79-0080JgfahcnsLscsy diseases of veins and lymphatics (2 sources)Disorder of vein; Translations: [Other specified disorders of veins] Onset: 93-90-5329ZxnrwxvvQtilx gastrointestinal disorders (12 sources)Constipation; Translations: [Constipation, unspecified]11-27-2024 EpisodicOther gastrointestinal disorders (7 sources)Constipation, unspecified; Translations: [Constipation, unspecified] 04-83-0360UsgfmmlkMcvzz hereditary and degenerative nervous system conditions (20 sources)Essential cpaaid99-06-7061QnvfxgdUoeza nervous system disorders (20 sources)Complex regional pain syndrome of lower jfpo70-85-5608IodfpumYwxwh nervous system disorders (20 sources)Xyznwochkyhrfq76-00-1828MmlgqzyXwwju nervous system disorders (20 sources)Pain due to neoplastic disease; Translations: [Neoplasm related pain (acute) (chronic)]63-67-0325AyapvbgSpbce nervous system disorders (20 sources)Neoplasm related pain (acute) (chronic); Translations: [Neoplasm related pain (acute) (chronic)]Onset: 776501-12-9662BdnlxkjPsidh nervous system disorders (20 sources)Neuropathy; Translations: [Polyneuropathy, unspecified]10-17-2024 ChronicOther nervous system disorders (20 sources)Polyneuropathy, unspecified; Translations: [Mononeuritis of unspecified site]Onset: 779140-30-2714JoggietVrfzy nervous system disorders (7 sources)Postoperative pain ; Translations: [Other acute postprocedural pain] Onset: 523338-00-1229EmiqnrvnAdttu nutritional; endocrine; and metabolic disorders (5 sources)Overweight in adulthood with body mass index of 25 or more but less than 2592-87-0377UkpqsjflTkcil screening for suspected conditions (not mental disorders or infectious disease) (20 sources)Electrocardiogram abnormal; Translations: [Patient encounter status] 38-91-0322UnfbtsjfWckaj upper respiratory disease (2 sources)Seasonal nwuauur33-89-4567WaexqttDsqnmhzs codes; unclassified (2 sources)Device in srkz90-50-8978SmetctyuNyebwhcuplab (2 sources)CONTACT W/AND (SUSP) EXPOS COVID-19; Translations: [CONTACT W/AND (SUSP) EXPOS COVID-19]Onset: 96-83-6993Jcjopydovvus (2 sources)Long-term current use of drug bcnpguh17-20-4981Bspvrqxjkymx (17 sources)Patient encounter sxdufh31-29-5890Utzqcebwelxf (3 sources)C50.912 - Malignant neoplasm of unspecified site of left female breast,Z17.0 - Estrogen receptor positive status [ER+]Unclassified (1 source)Immunodeficiency due to drugs; 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]Onset: 80-90-4985Ylqfztoadmmn (1 source)assisted (current) use of other immunomodulators and immunosuppressants; Translations: [assisted (current) use of other immunomodulators and immunosuppressants]Onset: 08-93-1199Qrrab infection (1 source)COVID-19; Translations: [COVID-19]Onset: 09-07-2021 Past or Other Problems Problem ClassificationProblemDateDocumented DateEpisodic/ChronicBacterial infection; unspecified site (20 sources)Bacteremia caused by Gram-positive bacteria; Translations: [Bacteremia]Onset: 839569-97-3596HqczsdkpVitenlaahf and other anemia (13 sources)Anemia, unspecified; Translations: [Anemia, unspecified]Onset: 603636-58-5894IfdpdjfzV Codes: Adverse effects of medical drugs (1 source)Adverse effect of antineoplastic and immunosuppressive drugs, initial encounter; Translations: [Adverse effect of antineoplastic and immunosuppressive drugs, initial encounter]Onset: 20-55-7454WwrtplzeSxsugkbu (20 sources)Gangrenous pneumonia; Translations: [Gangrene and necrosis of lung] Onset: 948159-74-6726UmuhpmsiUuisn bone disease and musculoskeletal deformities (20 sources)Other specified disorders of bone density and structure, unspecified site; Translations: [Disorder of bone and cartilage, unspecified]Onset: 068420-24-3008VxrsqzjlYwcbkjvrc (except that caused by tuberculosis or sexually transmitted disease) (20 sources)Pneumonia; Translations: [Pneumonia, unspecified organism]Onset: 510327-61-5960TedodpvuYxlcpazu codes; unclassified (1 source)Estrogen receptor positive status [ER+]; Translations: [Estrogen receptor positive status [ER+]]Onset: 59-05-6528XvtcsgjxEbjcshylpukd (1 source)CONTACT W/AND (SUSP) EXPOS COVID-19; Translations: [CONTACT W/AND (SUSP) EXPOS COVID-19]Onset: 70-84-5672Oxthuesavtjf (11 sources)Body mass index 20-24 - hfurie68-58-7080Nmmtvno tract infections (20 sources)Urinary tract infectious disease; Translations: [Urinary tract infection, site not specified]Onset: 403241-27-4102Ctxnuwtw Results Test NameValueInterpretationReference RangeFacilityLipid Panelon 06-30-2025 Cholesterol [Mass/Vol]296 mg/vKVupy127-544DkezejMercy Memorial HospitalComment on above:Performed By: #### [id number] #### [facility] [address] [place], [place] [address]Kxcguhbzyvk in HDL [Mass/Vol]54 mg/dLInvalid Interpretation CodeMercy Memorial HospitalComment on above:Result Comment: '>= 60 LOW RISK' '<= 40 HIGH RISK'Performed By: #### [id number] #### [facility] [address] [place], [place] [address]Dbwmcnpmswr in LDL [Mass/Vol]199 mg/dLHigh<=129Mer[facility] HospitalComment on above:Performed By: #### [id number] #### [facility] [address] [place], [place] [address]Fsagmfcjqpj in VLDL [Mass/Vol]46 mg/dLHigh7-40Mer[facility] HospitalComment on above:Performed By: #### [id number] #### [facility] [address] [place], [place] [address]Vzbukeuefyld [Mass/Vol]229 mg/dLHigh<=149Mer[facility] HospitalComment on above:Performed By: #### [id number] #### [facility] [address] [place], [place] [address]Jfbrgtuqqe Visit Summaryon 81-29-9474Yojatpzjax Visit Summary Ambulatory Visit Summary ADELINA MIR :1960 Visit Date:06/24/2025 Ambulatory Visit Instructions Your Care Team Attending Physician - APARNA PRATT, Roshan Horner Primary Care Physician - Juan J Caballero DO This Is Your Medications List Contact prescribing physician if questions or concerns Misc Prescription (Warren Cardoza, 5 years.) Misc Prescription (calcium) Non-Formulary Medication (Misc Medication) Non-Formulary Medication (iron) acetaminophen-oxycodone (acetaminophen-oxycodone 325 mg-5 mg Tab) alendronate (alendronate 70 mg oral tablet, effervescent) alprazolam (alprazolam 0.25 mg Tab) cholecalciferol (Vitamin D3) cyanocobalamin (Vitamin B12) cyclobenzaprine (cyclobenzaprine 10 mg Tab) duloxetine (duloxetine 30 mg oral delayed release capsule) fluticasone nasal (Flonase 0.05 mg/inh Amalia) gabapentin (gabapentin 300 mg Cap) gabapentin (gabapentin 300 mg Cap) hydrochlorothiazide-losartan (hydrochlorothiazide-losartan 12.5 mg-50 mg Tab) loratadine (Claritin) metoprolol (Toprol XL 50 mg Tab-ER) pantoprazole (Pantoprazole [address] Tab) Procedures Performed Insertion of implantable venous access port (07/22/2024), Mastectomy (05/16/2024), Excision of intradermal nevus (02/20/2024), Excision of breast mass (01/10/2024), Biopsy of breast (06/27/2023), Arthroscopy of knee (06/04/1995), Appendectomy, Breast reconstruction, Cholecystectomy, Extraction of wisdom tooth, Foot, Removal of breast implant, Simple dental extraction, DEAN BSO - Total abdominal hysterectomy and bilateral salpingo-oophorectomy, Tonsillectomy and adenoidectomy. Discharge Vitals Heart Rate (Peripheral) 70 Respiratory Rate 16 Blood Pressure 110/68 Height 160.5 cm Height 63 in Weight 55 kg Weight 121.254 lb BMI 21.35 What to do next Scheduled Follow-Up Appointments Monday 1:20 PM EDT Where: [address] [id number] Monday2025 2:30 PM EDT Where: [address] [address]- Medications What How Much When Why Instructions Unchanged acetaminophen-oxycodone (acetaminophen-oxycodone 325 mg-5 mg Tab) TAKE ONE TABLET EVERY 8HOURS BY MOUTH NEEDED FOR PAIN FOR 30 DAYS Contact prescribing physician if questions or concerns Unchanged alendronate (alendronate 70 mg oral tablet, effervescent) By Mouth Every week Contact prescribing physician if questions or concerns Unchanged alprazolam (alprazolam 0.25 mg Tab) See instructions Acute anxiety 1 tab tid prn Contact prescribing physician if questions or concerns Unchanged cholecalciferol (Vitamin D3) Contact prescribing physician if questions or concerns Unchanged cyanocobalamin (Vitamin B12) Contact prescribing physician if questions or concerns Unchanged cyclobenzaprine (cyclobenzaprine 10 mg Tab) 1 Tablets By Mouth At bedtime as needed for for spasm Contact prescribing physician if questions or concerns Unchanged duloxetine (duloxetine 30 mg oral delayed release capsule) 1 Capsules By Mouth Every day TAKE ONE CAPSULE BY MOUTH ONCE DAILY Contact prescribing physician if questions or concerns Unchanged fluticasone nasal (Flonase 0.05 mg/ inh Amalia) 1 Sprays Nasal Inhalation Every day Contact prescribing physician if questions or concerns Unchanged gabapentin (gabapentin 300 mg Cap) See instructions TAKE 1 CAPSULE BY MOUTH TWICE DAILY Contact prescribing physician if questions or concerns Unchanged gabapentin (gabapentin 300 mg Cap) See instructions TAKE 1 CAPSULE BY MOUTH TWICE DAILY Contact prescribing physician if questions or concerns Unchanged hydrochlorothiazide-losartan (hydrochlorothiazide-losartan 12.5 mg-50 mg Tab) See instructions TAKE 1 TABLET BY MOUTH DAILY Contact prescribing physician if questions or concerns Unchanged loratadine (Claritin) Every day Contact prescribing physician if questions or concerns Unchanged metoprolol (Toprol XL 50 mg Tab-ER) 50 Milligram By Mouth Every day Contact prescribing physician if questions or concerns Unchanged Misc Prescription (calcium) 0 Contact prescribing physician if questions or concerns Unchanged Misc Prescription (Handicap Placard, 5 years.) See instructions BMI 21.0-21.9, adult Nonsmoker Breast cancer of lower-inner quadrant of left female breast Hospital discharge follow-up PNA (pneumonia) UTI symptoms Pancytopenia Handicap Placard, 5 years. Contact prescribing physician if questions or concerns Unchanged Non-Formulary Medication (iron) Contact prescribing physician if questions or concerns Unchanged Non-Formulary Medication (Misc Medication) See instructions balance of nature-3 tabs a day Contact prescribing physician if questions or concerns Unchanged pantoprazole (Pantoprazole [address] Tab) Contact prescribing physician if questions or concerns Allergies Entex (U (more content not included)...[facility] Visit Summaryon 48-40-8444Fxgwhqovdc Visit SummaryAmbulatory Visit Summary ADELINA MIR :1960 Visit Date:06/16/2025 Ambulatory Visit Instructions Your Diagnosis Encounter for Medicare annual examination with abnormal findings Breast cancer of lower-inner quadrant of left female breast Pancytopenia HTN (hypertension) Anxiety Flu vaccine refused Screening for malignant neoplasm of colon declined Your Care Team Attending Physician - Kishan PRATT, Michael Barker Primary Care Physician - Juan J Caballero DO This Is Your Medications List Misc Prescription (Handicap Placard, 5 years.) Misc Prescription (calcium) Non-Formulary Medication (Misc Medication) Non-Formulary Medication (iron) acetaminophen-oxycodone (acetaminophen-oxycodone 325 mg-5 mg Tab) alendronate (alendronate 70 mg oral tablet, effervescent) alprazolam (alprazolam 0.25 mg Tab) cholecalciferol (Vitamin D3) cyanocobalamin (Vitamin B12) cyclobenzaprine (cyclobenzaprine 10 mg Tab) duloxetine (duloxetine 30 mg oral delayed release capsule) fluticasone nasal (Flonase) gabapentin (gabapentin 300 mg Cap) gabapentin (gabapentin 300 mg Cap) hydrochlorothiazide-losartan (hydrochlorothiazide-losartan 12.5 mg-50 mg Tab) loratadine (Claritin) metoprolol (Toprol XL 50 mg Tab-ER) pantoprazole (Pantoprazole [address] Tab) Procedures Performed Insertion of implantable venous access port (07/22/2024), Mastectomy (05/16/2024), Excision of intradermal nevus (02/20/2024), Excision of breast mass (01/10/2024), Biopsy of breast (06/27/2023), Arthroscopy of knee (06/04/1995), Appendectomy, Breast reconstruction, Cholecystectomy, Extraction of wisdom tooth, Foot, Removal of breast implant, Simple dental extraction, DEAN BSO - Total abdominal hysterectomy and bilateral salpingo-oophorectomy, Tonsillectomy and adenoidectomy. Discharge Vitals Heart Rate (Peripheral) 86 Blood Pressure 140/80 Height 165.5 cm Height 65 in Weight 52.3 kg Weight 115.302 lb BMI 19.09 What to do next Scheduled Follow-Up Appointments Monday 1:40 PM EDT With: APARNA PRATT, Roshan Horner Where: [facility] [address], [address], [place] [address]- Monday 1:20 PM EDT With: Where: [address] [address]- Monday2025 2:30 PM EDT With: Where: [address] [address]- You Need to Complete the Following Lipid Panel, Blood, Routine collect, 06/16/25, Order for future visit, Lab Collect, HTN (hypertension) Anxiety, Print Label By Order Location Medications What How Much When Why Instructions Unchanged acetaminophen-oxycodone (acetaminophen-oxycodone 325 mg-5 mg Tab) TAKE ONE TABLET EVERY 8HOURS BY MOUTH NEEDED FOR PAIN FOR 30 DAYS Unchanged alendronate (alendronate 70 mg oral tablet, effervescent) By Mouth Every week Unchanged alprazolam (alprazolam 0.25 mg Tab) See instructions Acute anxiety 1 tab tid prn Unchanged cholecalciferol (Vitamin D3) Unchanged cyanocobalamin (Vitamin B12) Unchanged cyclobenzaprine (cyclobenzaprine 10 mg Tab) 1 Tablets By Mouth At bedtime as needed for for spasm Unchanged duloxetine (duloxetine 30 mg oral delayed release capsule) 1 Capsules By Mouth Every day TAKE ONE CAPSULE BY MOUTH ONCE DAILY Unchanged fluticasone nasal (Flonase) Every day Unchanged gabapentin (gabapentin 300 mg Cap) See instructions TAKE 1 CAPSULE BY MOUTH TWICE DAILY Unchanged gabapentin (gabapentin 300 mg Cap) See instructions TAKE 1 CAPSULE BY MOUTH TWICE DAILY Unchanged hydrochlorothiazide-losartan (hydrochlorothiazide-losartan 12.5 mg-50 mg Tab) See instructions TAKE 1 TABLET BY MOUTH DAILY Unchanged loratadine (Claritin) Every day Unchanged metoprolol (Toprol XL 50 mg Tab-ER) 50 Milligram By Mouth Every day Unchanged Misc Prescription (calcium) 0 Unchanged Misc Prescription (Handicap Placard, 5 years.) See instructions BMI 21.0-21.9, adult Nonsmoker Breast cancer of lower-inner quadrant of left female breast Hospital discharge follow-up PNA (pneumonia) UTI symptoms Pancytopenia Handicap [employer], 5 years. Unchanged Non-Formulary Medication (iron) Unchanged Non-Formulary Medication (Misc Medication) See instructions balance of nature-3 tabs a day Unchanged pantoprazole (Pantoprazole [address] Tab) Allergies Entex (Unknown) Skelaxin (Unknown) corticosteroids (Anaphylaxis) Problems Ongoing - Any problem that you are currently receiving treatment for. Abnormal EKG ADHD Anxiety Body mass index (BMI) of 19.0-19.9 in adult Breast cancer of lower-inner quadrant of left female breast Complex regional pain syndrome of lower limb Dysuria Essential tremor HTN (hypertension) Hx of osteoarthritis Idiopathic polyneuropathy Intradermal melanocytic nevus Neoplasm (more content not included)...[facility] Medicine Office/Clinic Noteon 30-04-0876Gsjspk Medicine Office[facility]/Clinic Note Chief Complaint Subsequent Medicare Wellness Review of Systems PHQ Score Initial Depression Screen Score: 0 SCORE Physical Exam Vitals & Measurements HR: 86(Peripheral) BP: 140/80 SpO2: 98% HT: 165.5 cm HT: 65 in WT: 115.302 lb WT: 52.3 kg BMI: 19.09 Procedure I was in the office and available for consultation and to provide direct supervision at the time ofthis visit. I have provided supervision of the care team and have reviewed this chart and office note and agree with the plan of care. Assessment/Plan 1. Encounter for Medicare annual examination with abnormal findings (Z00.01: Encounter for general adult medical examination with abnormal findings) All the current AHRQ USPSTF???s recommendations for preventative services and all current CDC recommended immunizations and relevant risk recommendations discussed. Reviewed Medicare Prevention Services checklist. CDC-Falls Prevention and home safety screening reviewed. Patient reports one non injury fall in last 12 months, voices no worry about falling. Exhibits no problems with sitting, standing or ambulation. Patient aware with keeping walk way area free of clutter to prevent tripping and/or falling. [place] Advance Directives reviewed. Patient not interested in documents at this time. Patient is not an organ donor. Patient denies any problems with ADL???s and Instrumental ADL???s. Cognitive screening completed with memory and clock face drawing. No deficits noted. Patient recited 1/3 memory words. Immunization record reviewed, Patient does not get immunizations. Allergies and medications reviewed and up to date. No concerns with taking medication as prescribed. Reviewed OTC medications, medication list up to date. Blood tests were reviewed: Will discuss needed labs with pcp. Last mammogram 04/04/2023. Patient has not been cleared to get mammogram yet. Reviewed pain symptoms: rates pain as a 5 out of 10. Reviewed all outside providers that patient follows. Last visit summary notes available in chart and/or have been requested. Follow up scheduled with PCP, today after AWV. AWV has been scheduled, 06/17/2026. Abnormal findings with elevated BP. Patient will get second blood pressure reading with pcp. Medicare provides yearly screening for alcohol and depression concerns. This is completed during our Medicare Wellness Visit for those who do not have a current diagnosis of depression or concerns with alcohol use. I spent a total of 12 minutes on this date of service which included preparing to see the patient, face to face patient care, completing clinical documentation, obtaining and/or reviewing separately obtained history, counseling, and educating the patient with handouts. Explanations were provided with reviewing questionnaires. AUDIT risk assessment screening completed, risk score (1) with patient denying concerns with use. Completed PHQ-2 risk assessment for depression with risk sc ore (0), negative findings. Patient has been reminded to notify the provider if there would be a change or concerns with symptoms with fear, unable to sleep, worrying too much, or feeling down and/orsad with lost of interest with daily activities. Will continue to monitor with screening yearly during Medicare Wellness Visits. 2. Breast cancer of lower-inner quadrant of left female breast (C50.312: Malignant neoplasm of lower-inner quadrant of left female breast) Patient reports that she has completed treatment. Patient does see Terra Hurtado NP at [facility]. Patient also follows up with Oncology as needed. 3. Pancytopenia (D61.818: Other pancytopenia) Patient follows Oncology and Palliative Care. 4. HTN (hypertension) (I10: Essential (primary) hypertension) Patient is taking hctz-losartan daily as directed. Does monitor BP pressure at home occasionally. HTN stoplight reviewed with BP goal to be <140/90. Reviewed different factors that can alter bloodpressure readings. Education handout provided with s/s to monitor for and report to provider. Patient is encouraged to increase portions of fruit, vegetables, fiber and increase exercise as much as tolerable. Reviewed importance with monitoring foods high in salt content and encouraged to limit intake, if unsure encouraged to discuss with their PCP. Encouraged to eat more chicken, fish and lean white meats and limits red meats in diet. Discussed importance with keeping BP under good control to reduce CVA risk factors. Will continue to f/u with PCP during office visits and as needed. Patient'sblood pressure during AWV 140/80. 5. Anxiety (F41.9: Anxiety disorder, unspecified) Patient takes alprazolam and duloxetine as directed, voices effectiveness of medication. JOHN-7 screening completed today with a score of (10). Follows with PCP as directed for management and symptom control. Denies any suicidal ideations at this time. Education provided, stress management and relaxation techniques reviewed. Will continue to follow (more content not included)... [facility] CenterComment on above:Result Comment: Electronically Signed By: MICHAEL REEDER CNP\.br\Date and Time Signed: 06/16/25 16:14 EDT\.br\Electronically Co-Signed By: Bre Guan\.br\Date and Time Co-Signed: 06/16/25 15:45EDTFamily Medicine Office/Clinic NoteFamily Medicine Office/Clinic Note Chief Complaint The patient presents for a wellness visit and management of hypertension and anxiety. HPI Staff Pt presents today for [employer] check Patient is here for follow up on hypertension. How often are you checking your blood pressure? occasionally What are your average readings? _ it's fine states she has white coat syndrome Yearly BMP: _ BUN: 27 mg/dL High (07/22/24 06:27:00) Calcium Lvl: 8.8 mg/dL Low (07/22/24 06:27:00) Chloride: 100 mmol/L Low (07/22/24 06:27:00) CO2: 27 mmol/L (07/22/24 06:27:00) Creatinine: 1.3 mg/dL (07/22/24 06:27:00) eGFR: 46 mL/min/1.73 m2 Low (07/22/24 06:27:00) Glucose Lvl: 105 mg/dL (07/22/24 06:27:00) Potassium Lvl: 3.7 mmol/L (07/22/24 06:27:00) Sodium Lvl: 135 mmol/L (07/22/24 06:27:00) Follow up for Mental Status: Medication adherence- Yes, takes medication as prescribed Medication refill needed: _ Suicidal thoughts-Not at this time Most recent JOHN: 10 Most recent PHQ: 5 UDS & Medication Agreement UTD 03/25/25. Requesting script for flonase. History of Present Illness 64-year-old female presenting with a wellness visit and management of hypertension and anxiety. The patient has a history of hypertension, with a recent blood pressure reading of 132/86 mmHg, improved from an earlier measurement. She is on metoprolol, hydrochlorothiazide, and losartan for bloodpressure management. The patient experiences anxiety, managed with Xanax and gabapentin. She reports recent weight loss due to a healthy diet and expresses concern about this change. She also experiences allergic rhinitis and seeks prescription options for Flonase due to the cost of zsxx-wnr-srjvrst options. She has tried Zyrtec and Dorothy with varying effectiveness. Preventative care measures include scheduling a cholesterol screening with a nurse visit. Review of Systems - Cardiovascular: Reports hypertension, denies chest pain or palpitations. - Respiratory: Denies dyspnea or cough. - Neurological: Reports anxiety, denies headaches or dizziness. - Allergic/Immunologic: Reports symptoms of allergic rhinitis, denies other allergic reactions. Physical Exam Vitals & Measurements BP: 132/86 General: alert, no acute distress Cardiovascular: regular rate and rhythm, normal peripheral perfusion Respiratory: Lungs CTA, respirations non labored Extremities: no deformity, no trauma Neurological: oriented x 4, LOC appropriate for [facility] normal Assessment/Plan 1. HTN (hypertension) (I10: Essential (primary) hypertension) - Continue current antihypertensive regimen with metoprolol, hydrochlorothiazide, and losartan. - F/U in 6 months Ordered: Lipid Panel 2. Anxiety (F41.9: Anxiety disorder, unspecified) - Continue current medications, Xanax and gabapentin, for anxiety management. Ordered: alprazolam, See Instructions, 1 tab tid prn, # 90 tab(s), Refills(s) 0, Pharmacy: [facility], 165.5, cm, 03/25/25 12:55:00 EDT, Height/Length Dosing, 55.5, kg, 03/25/25 12:55:00 EDT, WeightDosing Lipid Panel 3. Allergic rhinitis, unspecified (J30.9) - Prescribe Flonase for allergic rhinitis management due to cost concerns with xxna-ord-iaeakgy options. Orders: fluticasone nasal, 1 spray(s), Nasal, Daily, 15.8 mL, Refill(s) 2, [facility], 160.5, cm,06/16/25 14:45:00 EDT, Height/Length Dosing, 52.3, kg, 06/16/25 15:11:00 EDT, Weight Dosing 1124F ACP discussed and documented; patient declines surrogate decision or ACPr 1125F Pain severity quantified; pain present ADM OF SOC DTR G0136 Annual alcohol misuse screening, 15 min G0442 Annual Depression Screening 15 min G0444 Body Mass Index (BMI) documented 3008F Current tobacco non-user 1036F Depression Screening Negative 3352F Functional status assessed 1170F Influenza immunization status assessed 1030F Medicare Subsequent Visit G0439 Medication list documented in medical record 1159F Most recent diastolic blood pressure 80-89 mm Hg 3079F Most recent systolic blood pressure >= 140 mm Hg 3077F Patient screen for fall risk: no falls in last year or 1 fall with no injury in last year 1101F Pneumococcus immunization status assessed 1022F Review of all meds by a prescribing practitioner or clinical pharmacist documented in EHR 1160F Follow-up No qualifying data available Patient Education Hypertension, Adult, Yqeu-rj-Kobn Problem List/Past Medical History Ongoing Abnormal EKG ADHD Anxiety Body mass index (BMI) of 19.0-19.9 in adult Breast cancer of lower-inner quadrant of left female breast Complex regional pain syndrome of lower limb Dysuria Essential tremor HTN (hypertension) Hx of osteoarthritis Idiopathic polyneuropathy Intradermal melanocytic nevus Neoplasm of uncertain behavior of skin of back Neoplasm of uncertain behavior of skin of face Pancytopenia Poor venous access Scoliosis Seasonal allergies UTI symptoms Historical B (more content not included)...[facility] Medical CenterComment on above:Result Comment: Electronically Signed By: MICHAEL REEDER CNP\.br\Date and Time Signed: 06/16/25 16:09 EDTComprehensive Metabolic Panelon 04-30-2025 Albumin [Mass/Vol]4.2 g/dLNormal3.5-5.7The [facility] Physician GroupComment on above:Performed By: #### CMP ####[address] [address] USAAlbumin/Globulin [Mass ratio]1.7 {ratio}NormalThe Formerly [facility] Hospital Physician GroupComment on above:Performed By: #### CMP ####[address] [address] USAALP [Catalytic activity/Vol]60 U/UWtmeqe33-835Vtx [facility] Physician GroupComment on above: Performed By: #### CMP ####[address] [address] USAALT [Catalytic activity/Vol]10 U/LNormal7-52The [facility] Physician GroupComment on above:Performed By: #### CMP ####[address] [address] USAAnion gap [Moles/Vol] 9.1 mmol/LNormal6.0-15.0The [facility] Physician GroupComment on above:Performed By: #### CMP ####[address] [address] USAAST [Catalytic activity/Vol]17 U/ONbjsqr51-00Hyz [facility] Physician GroupComment on above:Performed By: #### CMP ####[address] [address] USABilirubin [Mass/Vol]0.4 mg/dLNormal 0.3-1.0The [facility] Physician GroupComment on above:Performed By: #### CMP ####[address] [address] USACalcium [Mass/Vol]9.8 mg/dLNormal8.6-10.3The [facility] Physician GroupComment on above: Performed By: #### CMP ####[address] [address] USAChloride [Moles/Vol]99 mmol/SKqtvye35-010Xhh [facility] Physician [facility] SystemComment on above:Performed By: #### CMP ####[address] [address] USACO2 [Moles/Vol]31.1 mmol/LHigh21.0-31.0The [facility] Physician GroupComment on above:Performed By: #### CMP ####[address] [address] USACreatinine [Mass/Vol]1.14 mg/dLNormal0.60-1.20The [facility] Physician [facility] Comment on above:Performed By: #### CMP ####[place] [id number] USACreatinine Clr Calc Dqxwjjxp68.40NoFormerly [facility] Physician [facility] Care SystemComment on above:Result Comment: PERFORMED BY:[address] [place], [place] [phone] MEDICAL LINDY RAMACHANDRAN M.D.Performed By: #### CMP ####[address] [address] USAGFR/1.73 sq M.predicted MDRD (S/P/Bld) [Vol rate/Area]54.093 mL/min/{1.73_m2}NormalThe [facility] Physician [facility] SystemComment on above:Performed By: #### CMP ####[address] [address] USAGlobulin (S) [Mass/Vol]2.5 g/dLAdventHealth Brandon ER Physician [facility] Care SystemComment on above:Performed By: #### CMP ####[address] [address] USAGlucose [Mass/Vol]102 mg/eBIjpr69-854Ggh [facility] Phys[facility] Comment on above:Result Comment: Random Glucose Reference Range is dependent on time and content of last meal. Glucose of more than 200 mg/dL in a nonstressed, ambulatory subject supports the diagnosis of Diabetes Mellitus. ADA recommended reference rangePerformed By: #### CMP ####[address] [place] [address] USAPotassium [Moles/Vol]4.2 mmol/LNormal3.5-5.1 The [facility] Physician GroupComment on above:Performed By: #### CMP ####[address] [place] [address] USAProtein [Mass/Vol]6.7 g/dLNormal6.4-8.9The [facility] Physician GroupComment on above: Performed By: #### CMP ####[address] [address] USASodium [Moles/Vol]135 mmol/DHfb322-396Ypn [facility] Physician GroupComment on above:Performed By: #### CMP ####[address] [address] USAUrea nitrogen [Mass/Vol]24 mg/dLNormal7-25The [facility] Physician GroupComment on above:Performed By: #### CMP ####[place] [id number] [place] Alanine aminotransferase [Enzymatic activity/volume] in Serum or PlasmaOrdered By: Kush Glez on 71-80-0491JDW [Catalytic activity/Vol]12 U/LNormal7-52 [facility], AvonComment on above:Performed By: #### CBC, CMP ####[address] [address] USAAlbumin [Mass/volume] in Serum or Plasma by Bromocresol green (BCG) dye binding metho Ordered By: Kush Glez on 37-30-4449Ghtvsrw BCG dye [Mass/Vol]4.1 g/dL 3.5-5.7FCincinnati Children's Hospital Medical CenterAlkaline phosphatase [Enzymatic activity/volume] in Serum or PlasmaOrdered By: Kush Glez on 27-41-6732OZY [Catalytic activity/Vol]64 U/NGbamzw49-602PjlpitcptSelect Medical [facility], [place] Comment on above:Performed By: #### CBC, CMP ####[address] [address] USAAspartate aminotransferase [Enzymatic activity/volume] in Serum or PlasmaOrdered By: [facility]ericord[facility] HospitalJosefinaomero on 02-34-1668HBX [Catalytic activity/Vol]16 U/LLphevm20-31TlpeuroznSelect [facility] [place] Comment on above:Performed By: #### CBC, CMP ####[address] [address] USABasophils [#/volume] in Blood by Automated countOrdered By: [facility] Memorial Hospitalomero on 85-90-8056Mpxxhopxr (Bld) [#/Vol] 0.1 10*3/uLNormal0.0-0.2FCincinnati Children's Hospital Medical CenterComment on above:Result Comment: PERFORMED BY:[address] [place], [place] [phone] MEDICAL LINDY RAMACHANDRAN M.D.Performed By: #### CBC, CMP ####[address] [address] USABasophils/100 leukocytes in Blood by Automated countOrdered By: [facility] Psychiatric CenterFelipeomero on 11-95-7515Nitmqhqaj/100 WBC (Bld)0.6 %Normal.[facility], AvonComment on above:Performed By: #### CBC, CMP ####[address] [address] USABilirubin.total [Mass/volume] in Serum or PlasmaOrdered By: [facility] Hospitalomero on 04-21-2025 Bilirubin [Mass/Vol]0.5 mg/dLNormal0.3-1.0[facility] Comment on above:Performed By: #### CBC, CMP ####[address] [address] USACalcium [Mass/volume] in Serum or PlasmaOrdered By: [facility] Hospitaloh on 24-89-6715Gpqqhbg [Mass/Vol]9.4 mg/dLNormal 8.6-10.3FCincinnati Children's Hospital Medical CenterComment on above:Performed By: #### CBC, CMP ####[place] [id number] USACarbon dioxide, total [Moles/volume] in Serum or PlasmaOrdered By: tara Shira Wangomero on 72-62-8016GI2 [Moles/Vol]29.3 mmol/PHgffmq95.0-31.0[facility], AvonComment on above:Performed By: #### CBC, CMP ####[place] [address] USAChloride [Moles/volume] in Serum or PlasmaOrdered By: tara Conirekha on 04-21-2025 Chloride [Moles/Vol]100 mmol/NDhmxet59-708IelneocznSelect Medical [facility] [place] Comment on above:Performed By: #### CBC, CMP ####[place] [id number] USAComplete Blood Count Auto Diffon 20-04-1395Efdu Corpuscular HGB Conc33.6 g/pIDasbrm74.0-35.0The [facility] Physician GroupComment on above:Performed By: #### CBC, CMP ####[place] [address] USANRBC%0.0 /100{WBC} Normal0-0.5The [facility] Physician [facility] SystemComment on above:Performed By: #### CBC, CMP ####[address] White Blood Count8.2 [CFU]/mLNormal3.8-11.6The Former[facility] Physician GroupComment on above:Performed By: #### CBC, CMP ####[place] [id number] USAComprehensive Metabolic Panelon 04-21-2025 Albumin [Mass/Vol]4.1 g/dLNormal3.5-5.7The [facility] Physician GroupComment on above:Performed By: #### CBC, CMP ####[place] [id number] USACreatinine Clr Calc Vcqktuoo35.09NormalThe Former[facility] Physician GroupComment on above:Result Comment: PERFORMED BY:[address] [place], [place] [phone] MEDICAL DIRECTORLEE RAMACHANDRAN M.D.Performed By: #### CBC, CMP ####[address] [address] USAGFR/1.73 sq M.predicted MDRD (S/P/Bld) [Vol rate/Area]41.914 mL/min/{1.73_m2}NormalThe [facility]ly [facility] Physician GroupComment on above:Performed By: #### CBC, CMP ####[address] [address] USACreatinine [Mass/volume] in Serum or PlasmaOrdered By: tara Bales-Nhung on 99-20-5139Ltevrtdpue [Mass/Vol]1.41 mg/dL High0.60-1.20[facility], AvonComment on above:Performed By: #### CBC, CMP ####[address] [address] USAEosinophils [#/volume] in Blood by Automated countOrdered By: tara Bales- Nhung on 09-63-2094Wqjvizhuggt (Bld) [#/Vol]0.3 10*3/uLNormal0.0-0.45[facility], AvonComment on above:Performed By: #### CBC, CMP ####[address] [address] [place] Eosinophils/100 leukocytes in Blood by Automated countOrdered By: tara Bales-Nhung on 18-83-6399Narucqhzvnv/100 WBC (Bld)4.1 %Normal.[facility], AvonComment on above:Performed By: #### CBC, CMP ####[address] [address] USAErythrocyte distribution width [Ratio] by Automated countOrdered By: tara Bales-Nhung on 21-25-9631Pvttxhtpnit distribution width (RBC) [Ratio]15.0 %Zgzpaw36.9-15.3FCincinnati Children's Hospital Medical CenterComment on above:Performed By: #### CBC, CMP ####[address] [place] [address] USAErythrocytes [#/volume] in Blood by Automated countOrdered By: Kush Glez on 46-34-7710TTR (Bld) [#/Vol]3.72 10*6/uLNormal3.60-5.00[facility], AvonComment on above:Performed By: #### CBC, CMP ####[address] [address] USAGlucose [Mass/volume] in Serum or PlasmaOrdered By: tara Glez on 91-74-9303Whdfggj [Mass/Vol]107 mg/sZDusr33-946LaygofllsSelect Medical [facility] Clinic Rehabilitation Hospital, AvonComment on above:ADA recommended reference rangeRandom Glucose Reference Range is dependent on time and content of last meal. Glucose of more than 200 mg/dL in a nonstressed, ambulatory subject supports the diagnosisof Diabetes Mellitus.Result Comment: Random Glucose Reference Range is dependent on time and content of last meal. Glucose of more than 200 mg/dL in a nonstressed, ambulatory subject supports the diagnosis of Diabetes Mellitus. ADA recommended reference rangePerformed By: #### CBC, CMP ####[address] [address] USAHematocrit [Volume Fraction] of Blood by Automated countOrdered By: Kush Glez on 91-56-1153Bdjwrxcrmt (Bld) [Volume fraction]37.6 %Taxnlc83.0-46.4FCincinnati Children's Hospital Medical Center Comment on above:Performed By: #### CBC, CMP ####[address] [address] USAHemoglobin [Mass/volume] in Blood Ordered By: Kush Glez on 56-77-2559Vpevfiuvrb (Bld) [Mass/Vol]12.6 g/dL Qmofog18.8-15.4FCincinnati Children's Hospital Medical CenterComment on above:Performed By: #### CBC, CMP ####[address] [address] USALeukocytes [#/volume] corrected for nucleated erythrocytes in Blood by Automated counOrdered By: tara Glez on 73-24-6905EZI corrected for nucl RBC Auto (Bld) [#/Vol]8.2 10*3/uL3.8-11.6FCincinnati Children's Hospital Medical Center Leukocytes [#/volume] in Blood by Automated countOrdered By: tara Glez on 56-82-8642FJO (Bld) [#/Vol]8.2 10*3/uLNormal3.8-11.6FCincinnati Children's Hospital Medical CenterComment on above:Performed By: #### CBC, CMP ####[place] [id number] USALymphocytes [#/volume] in Blood by Automated countOrdered By: tara Glez on 83-29-0960Toqvylfqxlw (Bld) [#/Vol]1.2 10*3/uLNormal1.00-4.8[facility], AvonComment on above:Performed By: #### CBC, CMP ####[place] [address] USALymphocytes/100 leukocytes in Blood by Automated countOrdered By: tara Glez on 57-97-0341Tozlenahzwi/100 WBC (Bld) 14.3 %Normal.[facility], AvonComment on above:Performed By: #### CBC, CMP ####[address] [address] [facility] [place] [Entitic mass] by Automated countOrdered By: tara Glez on 90-89-6700VNP (RBC) [Entitic mass]33.9 yqWqpdup84.7-34.3FCincinnati Children's Hospital Medical CenterComment on above:Performed By: #### CBC, CMP ####[address] [address] [facility] Auto (RBC) [Mass/Vol]Ordered By: tara Glez on 52-31-8694FEUD (RBC) [Mass/Vol]33.6 g/dL 32.0-35.0[facility], AvonMCV [Entitic volume] by Automated countOrdered By: Kush Glez on 14-50-0136SCD (RBC) [Entitic vol]101.0 fLHigh 80-100[facility], AvonComment on above:Performed By: #### CBC, CMP ####[address] [address] [place] Monocytes [#/volume] in Blood by Automated countOrdered By: tara Glez on 25-49-1642Nuxrcwvun (Bld) [#/Vol]0.9 10*3/uLHigh0.0-0.8[facility], AvonComment on above:Performed By: #### CBC, CMP ####[address] [address] USAMonocytes/100 leukocytes in Blood by Automated countOrdered By: tara Glez on 04-21-2025 Monocytes/100 WBC (Bld)10.7 %Normal.[facility], AvonComment on above:Performed By: #### CBC, CMP ####[address] [address] USANeutrophils [#/volume] in Blood by Automated count Ordered By: tara Glez on 89-91-4075Cuupgqvmeuu (Bld) [#/Vol]5.8 10*3/uL Normal1.8-7.7FCincinnati Children's Hospital Medical CenterComment on above:Performed By: #### CBC, CMP ####[address] [address] USANeutrophils/100 leukocytes in Blood by Automated countOrdered By: tara Glez on 92-63-5232Zujymjewdfn/100 WBC (Bld)70.3 %Normal.[facility], AvonComment on above:Performed By: #### CBC, CMP ####[address] [address] USANo Panel Information Ordered By: Kush Glez on 00-90-4265Jceazabql GFR (CKD-EPI)41.914 mL/Min [facility], AvonPharmacy Creatinine Clearance (Chem35.09 [facility], AvonNucleated erythrocytes [Presence] in Blood by Automated countOrdered By: tara Glez on 89-49-3801Vebrslqum RBC Auto Ql (Bld)0.0 /100{WBC}0-0.5FCincinnati Children's Hospital Medical CenterPlatelet mean volume [Entitic volume] in Blood by Automated countOrdered By: tara Glez on 27-85-0011Asetopis mean volume (Bld) [Entitic vol]7.7 fLNormal6.3-10.7FCincinnati Children's Hospital Medical CenterComment on above:Performed By: #### CBC, CMP ####[place] [address] [place] Platelets [#/volume] in Blood by Automated countOrdered By: tara Glez on 29-22-6733Jmuryagty (Bld) [#/Vol]205 10*3/bZYtwdri112-162IcqimhmbaSelect Medical Cleveland Clinic Rehabilitation Hospital, AvonComment on above:Performed By: #### CBC, CMP ####[place] [id number] USAPotassium [Moles/volume] in Serum or PlasmaOrdered By: tara Glez on 04-21-2025 Potassium [Moles/Vol]4.1 mmol/LNormal3.5-5.1FCincinnati Children's Hospital Medical Center Comment on above:Performed By: #### CBC, CMP ####[place] [address] USAProtein [Mass/volume] in Serum or PlasmaOrdered By: tara Glez on 66-53-3805Gevqrvh [Mass/Vol]6.8 g/dLNormal 6.4-8.9[facility], AvonComment on above:Performed By: #### CBC, CMP ####[place] [id number] [facility] Serum globulin measurement by calculation (mass/volume)Ordered By: tara Hooker on 68-28-0571Pkrdetgt (S) [Mass/Vol]2.7 g/dLNormalSelect Medical [facility] Clinic Rehabilitation Hospital, AvonComment on above:Performed By: #### CBC, CMP ####[address] [address] USASerum or plasma albumin/globulin mass ratioOrdered By: [facility] Ilana-Iselaraomero on 04-21-2025 Albumin/Globulin [Mass ratio]1.5 {ratio}[facility] Comment on above:Performed By: #### CBC, CMP ####[address] [address] USASerum or plasma anion gap determinationOrdered By: [facility] Ilana-Nhung on 02-14-5670Mcyxe gap [Moles/Vol]10.8 mmol/LNormal6.0-15.0[facility], AvonComment on above:Performed By: #### CBC, CMP ####[address] [address] USASodium [Moles/volume] in Serum or PlasmaOrdered By: [facility] Ilana-Iselarekha on 98-99-1323Kuxsay [Moles/Vol]136 mmol/AApuipt243-006DqglfphfxSelect Medical [facility] Hospital, AvonComment on above:Performed By: #### CBC, CMP ####[address] [address] USAUrea nitrogen [Mass/volume] in Serum or PlasmaOrdered By: [facility] ShiraIselarekha on 43-47-1560Ssif nitrogen [Mass/Vol] 31 mg/dLHigh7-25[facility], AvonComment on above:Performed By: #### CBC, CMP ####[address] [address] USAAmbulatory Visit Summaryon 70-21-4149Dhuuoqadtl Visit SummaryAmbulatory Visit Summary ADELINA MIR :1960 Visit Date:03/25/2025 Ambulatory Visit Instructions Your Diagnosis HTN (hypertension) Idiopathic polyneuropathy Anxiety Former smoker BMI 20.0-20.9, adult Your Care Team Attending Physician - MICHAEL REEDER CNP Primary Care Physician - Michael Holley MD This Is Your Medications List alprazolam (alprazolam 0.25 mg Tab) Contact prescribing physician if questions or concerns Misc Prescription (Warren Cardoza, 5 years.) Non-Formulary Medication (Misc Medication) acetaminophen-oxycodone (acetaminophen-oxycodone 325 mg-5 mg Tab) cyclobenzaprine (cyclobenzaprine 10 mg Tab) duloxetine (duloxetine 30 mg oral delayed release capsule) duloxetine (duloxetine 60 mg oral delayed release capsule) gabapentin (gabapentin 300 mg Cap) hydrochlorothiazide-losartan (hydrochlorothiazide-losartan 12.5 mg-50 mg Tab) metoprolol (Toprol XL 50 mg Tab-ER) Procedures Performed Insertion of implantable venous access port (07/22/2024), Mastectomy (05/16/2024), Excision of intradermal nevus (02/20/2024), Excision of breast mass (01/10/2024), Biopsy of breast (06/27/2023), Arthroscopy of knee (06/04/1995), Appendectomy, Breast reconstruction, Cholecystectomy, Extraction of wisdom tooth, Foot, Removal of breast implant, Simple dental extraction, DEAN BSO - Total abdominal hysterectomy and bilateral salpingo-oophorectomy, Tonsillectomy and adenoidectomy. Discharge Vitals Temperature (Temporal Artery) 36.2 ???C Heart Rate (Peripheral) 66 Respiratory Rate 20 Blood Pressure 138/84 Height 65 in Height 165.5 cm Weight 122.356 lb Weight 55.5 kg BMI 20.26 What to do next Scheduled Follow-Up Appointments Monday 2:30 PM EDT With: Where: [address] [address]- Monday 3:20 PM EDT With: MICHAEL REEDER CNP Where: [address] [address]- Medications What How Much When Why Instructions Unchanged alprazolam (alprazolam 0.25 mg Tab) See instructions Acute anxiety 1 tab tid prn Pickup at [facility] Unchanged acetaminophen-oxycodone (acetaminophen-oxycodone 325 mg-5 mg Tab) TAKE ONE TABLET EVERY 8HOURS BY MOUTH NEEDED FOR PAIN FOR 30 DAYS Contact prescribing physician if questions or concerns Unchanged cyclobenzaprine (cyclobenzaprine 10 mg Tab) 1 Tablets By Mouth At bedtime as needed for for spasm Contact prescribing physician if questions or concerns Unchanged duloxetine (duloxetine 30 mg oral delayed release capsule) 1 Capsules By Mouth Every day TAKE ONE CAPSULE BY MOUTH ONCE DAILY Contact prescribing physician if questions or concerns Unchanged duloxetine (duloxetine 60 mg oral delayed release capsule) Contact prescribing physician if questions or concerns Unchanged gabapentin (gabapentin 300 mg Cap) See instructions TAKE 1 CAPSULE BY MOUTH TWICE DAILY Contact prescribing physician if questions or concerns Unchanged hydrochlorothiazide-losartan (hydrochlorothiazide-losartan 12.5 mg-50 mg Tab) See instructions TAKE 1 TABLET BY MOUTH DAILY Contact prescribing physician if questions or concerns Unchanged metoprolol (Toprol XL 50 mg Tab-ER) 50 Milligram By Mouth Every day Contact prescribing physician if questions or concerns Unchanged Misc Prescription (Handicap Placard, 5 years.) See instructions BMI 21.0-21.9, adult Nonsmoker Breast cancer of lower-inner quadrant of left female breast Hospital discharge follow-up PNA (pneumonia) UTI symptoms Pancytopenia Handicap Placard, 5 years. Contact prescribing physician if questions or concerns Unchanged Non-Formulary Medication (Misc Medication) See instructions balance of nature-3 tabs a day Contact prescribing physician if questions or concerns Pharmacy Information [facility] [address] [place], [place] [id number] [phone] Allergies Entex (Unknown) Skelaxin (Unknown) corticosteroids (Anaphylaxis) Problems Ongoing - Any problem that you are currently receiving treatment for. Abnormal EKG ADHD Anxiety Breast cancer of lower-inner quadrant of left female breast Complex regional pain syndrome of lower limb Dysuria Essential tremor HTN (hypertension) Hx of osteoarthritis Idiopathic polyneuropathy Intradermal melanocytic nevus Neoplasm of uncertain behavior of skin of back Neoplasm of uncertain behavior of skin of face Pancytopenia Poor venous access Scoliosis Seasonal allergies UTI symptoms Historical - Any problem that you are no longer receiving treatment for. BMI 23.0-23.9, adult Polyneuropathy RSD lower limb Patient Survey You may receive a survey via text or e-mail asking about your office visit. Please share your experience with us by completing your survey. We appreciate your feedb (more content not included)...[facility] Medicine Office/Clinic Noteon [phone] Medicine Office/Clinic NoteGuard[facility] Office/Clinic Note Chief Complaint The patient presents for a follow-up after completing cancer treatment. [facility] Staff Adelina is a 64 year old female presenting with 3 month f/u *Former [facility] patient* Patient is here for follow up on hypertension. How often are you checking your blood pressure? occasionally What are your average readings? _ Yearly BMP: July 22 2024 Gabapentin for neuropathy Refills needed for alprazolam History of Present Illness 64-year-old female presenting with her friend for a follow-up visit after completing cancer treatment. She recently finished radiation and chemotherapy for breast cancer, with the last session occurring a week ago Monday. The patient reports no lymph node involvement, which is a positive outcome. The patient has a history of anxiety disorder, which has been managed without the addition of bloodpressure medication despite elevated readings attributed to anxiety. She experiences white coat syndrome, contributing to elevated blood pressure readings during medical visits. She has been managed with alprazolam 0.25 mg and needs this medication refilled. The patient also has a diagnosis of idiopathic polyneuropathy, for which she receives gabapentin. She recently refilled her gabapentin and Flexeril prescriptions and manages her anxiety with Xanax, which she prefers to fill locally rather than through mail order. Review of Systems PHQ Score Initial Depression Screen Score: 0 SCORE - Cardiovascular: Reports elevated blood pressure readings attributed to anxiety. Denies chest painor dizziness. - Neurological: Reports idiopathic polyneuropathy. Denies headaches or balance issues. - Respiratory: Denies dyspnea or cough. Physical Exam Vitals & Measurements T: 36.2 ???C(Temporal Artery) HR: 66(Peripheral) RR: 20 BP: 138/84 SpO2: 96% HT: 165.5 cm HT: 65 in WT: 55.5 kg WT: 122.356 lb BMI: 20.26 General: alert, no acute distress Cardiovascular: regular rate and rhythm, normal peripheral perfusion Respiratory: Lungs CTA, respirations non labored Extremities: no deformity, no trauma Neurological: oriented x 4, LOC appropriate for age speech normal Assessment/Plan 1. HTN (hypertension) (I10: Essential (primary) hypertension) - Recheck blood pressure to confirm readings and assess need for antihypertensive therapy. - Encourage low sodium diet and daily exercise - Continue losartan- HCTZ 50 mg- 12.5 mg daily & metoprolol 50 mg daily - F/U in 3 months 2. Idiopathic polyneuropathy (G60.9: Hereditary and idiopathic neuropathy, unspecified) - Continue gabapentin for neuropathic pain management. - Ensure medication adherence and monitor for efficacy and side effects. - Medication Agreement and UDS completed today in the office - OARRS reviewed and found to be appropriate. - F/U in 3 months Ordered: Drug Screen POC 39820 3. Anxiety (F41.9: Anxiety disorder, unspecified) - Continue current management with Xanax for anxiety control. - Monitor blood pressure readings to differentiate anxiety-induced elevations from primary hypertension. - Medication Agreement and UDS completed today in the office - OARRS reviewed and found to be appropriate. - F/U in 3 months Ordered: alprazolam, See Instructions, 1 tab tid prn, # 90 tab(s), Refills(s) 0, Pharmacy: [facility], 165.5, cm, 03/25/25 12:55:00 EDT, Height/Length Dosing, 55.5, kg, 03/25/25 12:55:00 EDT, WeightDosing Drug Screen POC 65532 4. Former smoker (Z87.891: Personal history of nicotine dependence) Encouraged to continue as a non-smoker 5. BMI 20.0-20.9, adult (Z68.20: Body mass index [BMI] 20.0-20.9, adult) BMI 20.26 Follow-up With When Contact Information MICHAEL REEDER CNP, FAM Within [address] [place] [phone] [facility] (1) Additional Instructions: Anxiety Patient Education Neuropathic Pain Problem List/Past Medical History Ongoing Abnormal EKG ADHD Anxiety Breast cancer of lower-inner quadrant of left female breast Complex regional pain syndrome of lower limb Dysuria Essential tremor HTN (hypertension) Hx of osteoarthritis Idiopathic polyneuropathy Intradermal melanocytic nevus Neoplasm of uncertain behavior of skin of back Neoplasm of uncertain behavior of skin of face Pancytopenia Poor venous access Scoliosis Seasonal allergies UTI symptoms Historical BMI 23.0-23.9, adult Polyneuropathy RSD lower limb Procedure/Surgical History Insertion of implantable venous access port (07/22/2024), Mastectomy (05/16/2024), Excision of intradermal nevus (02/20/2024), Excision of breast mass (01/10/2024), Biopsy of breast (06/27/2023), Arthroscopy of knee (06/04/1995), Appendectomy, Breast reconstruction, Cholecystectomy, Extraction of wisdom tooth, Foot, Removal of breast implant, Simple dental extraction, DEAN BSO - Total abdominal hysterectomy and bilateral salpingo-oophorectomy, Tonsillect (more content not included)...[facility] Comment on above:Result Comment: Electronically Signed By: MICHAEL REEDER CNP\.br\Date and Time Signed: 03/25/25 15:18 EDTAmbulatory Visit Summaryon [id number] Visit SummaryAmbulatory Visit Summary ADELINA MIR :1960 Visit Date:01/21/2025 Ambulatory Visit Instructions Your Diagnosis HTN (hypertension) Essential tremor Edema Breast cancer of lower-inner quadrant of left female breast Anxiety Former smoker BMI 20.0-20.9, adult Your Care Team Attending Physician - Michael Holley MD Primary Care Physician - Michael Holley MD This Is Your Medications List Misc Prescription (Warren Cardoza, 5 years.) Non-Formulary Medication (Misc Medication) acetaminophen-oxycodone (acetaminophen-oxycodone 325 mg-5 mg Tab) alprazolam (alprazolam 0.25 mg Tab) cyclobenzaprine (cyclobenzaprine 10 mg Tab) duloxetine (duloxetine 30 mg oral delayed release capsule) gabapentin (gabapentin 300 mg Cap) hydrochlorothiazide-losartan (hydrochlorothiazide-losartan 12.5 mg-50 mg Tab) metoprolol (Toprol XL 50 mg Tab-ER) Procedures Performed Insertion of implantable venous access port (07/22/2024), Mastectomy (05/16/2024), Excision of intradermal nevus (02/20/2024), Excision of breast mass (01/10/2024), Biopsy of breast (06/27/2023), Arthroscopy of knee (06/04/1995), Appendectomy, Breast reconstruction, Cholecystectomy, Extraction of wisdom tooth, Foot, Removal of breast implant, Simple dental extraction, DEAN BSO - Total abdominal hysterectomy and bilateral salpingo-oophorectomy, Tonsillectomy and adenoidectomy. Discharge Vitals Temperature (Oral) 36.4 ???C Heart Rate (Peripheral) 78 Respiratory Rate 18 Blood Pressure 146/90 Height 65 in Height 165.5 cm Weight 125.663 lb Weight 57.0 kg BMI 20.81 What to do next Scheduled Follow-Up Appointments 2024 1:40 PM EDT With: Kishan PRATT, Michael Barker Where: [address] [phone]- Monday 1:00 PM EDT With: Where: [address] [address]- Medications What How Much When Why Instructions Unchanged acetaminophen-oxycodone (acetaminophen-oxycodone 325 mg-5 mg Tab) TAKE ONE TABLET EVERY 8HOURS BY MOUTH NEEDED FOR PAIN FOR 30 DAYS Unchanged alprazolam (alprazolam 0.25 mg Tab) See instructions Acute anxiety 1 tab tid prn Unchanged cyclobenzaprine (cyclobenzaprine 10 mg Tab) 1 Tablets By Mouth At bedtime as needed for for spasm Unchanged duloxetine (duloxetine 30 mg oral delayed release capsule) 1 Capsules By Mouth Every day TAKE ONE CAPSULE BY MOUTH ONCE DAILY Unchanged gabapentin (gabapentin 300 mg Cap) See instructions TAKE 1 CAPSULE BY MOUTH TWICE DAILY Unchanged hydrochlorothiazide-losartan (hydrochlorothiazide-losartan 12.5 mg-50 mg Tab) See instructions TAKE 1 TABLET BY MOUTH DAILY Unchanged metoprolol (Toprol XL 50 mg Tab-ER) 50 Milligram By Mouth Every day Unchanged Misc Prescription (Handicap Placard, 5 years.) See instructions BMI 21.0-21.9, adult Nonsmoker Breast cancer of lower-inner quadrant of left female breast Hospital discharge follow-up PNA (pneumonia) UTI symptoms Pancytopenia Handicap Plackang, 5 years. Unchanged Non-Formulary Medication (Misc Medication) See instructions balance of nature-3 tabs a day Allergies Entex (Unknown) Skelaxin (Unknown) corticosteroids (Anaphylaxis) Problems Ongoing - Any problem that you are currently receiving treatment for. Abnormal EKG ADHD Anxiety Breast cancer of lower-inner quadrant of left female breast Complex regional pain syndrome of lower limb Dysuria Essential tremor HTN (hypertension) Hx of osteoarthritis Idiopathic polyneuropathy Intradermal melanocytic nevus Neoplasm of uncertain behavior of skin of back Neoplasm of uncertain behavior of skin of face Pancytopenia Poor venous access Scoliosis Seasonal allergies UTI symptoms Historical - Any problem that you are no longer receiving treatment for. BMI 23.0-23.9, adult Polyneuropathy RSD lower limb Patient Survey You may receive a survey via text or e-mail asking about your office visit. Please share your experience with us by completing your survey. We appreciate your feedback and thank you for choosing us for your care. [facility] Medicine Office/Clinic Noteon [phone] Medicine Office/Clinic NoteFami Medicine Office/Clinic Note Chief Complaint - Concern over fluctuating blood pressure and management of edema HPI Staff 3m chronic care management Still seeing oncology for Breast Cancer. Last Oncology note from 12/22/24 in chart. last Cemo last was January 01 ... February 04 to start radiation VERO 12/12/24 pt was in due to peripheral edema. Given furosemide by oncologist, as well as potassium. Patient is here for follow up on hypertension. How often are you checking your blood pressure? no What are your average readings? _ Yearly BMP: _ BUN: 27 mg/dL High (07/22/24 06:27:00) Calcium Lvl: 8.8 mg/dL Low (07/22/24 06:27:00) Chloride: 100 mmol/L Low (07/22/24 06:27:00) CO2: 27 mmol/L (07/22/24 06:27:00) Creatinine: 1.3 mg/dL (07/22/24 06:27:00) eGFR: 46 mL/min/1.73 m2 Low (07/22/24 06:27:00) Glucose Lvl: 105 mg/dL (07/22/24 06:27:00) Potassium Lvl: 3.7 mmol/L (07/22/24 06:27:00) Sodium Lvl: 135 mmol/L (07/22/24 06:27:00) no refills needed History of Present Illness - The patient is a 64-year-old female presenting with fluctuating blood pressure and edema management challenges. - Ongoing edema, primarily noted in the foot, with periodic normalization during the day. - Hypertension with recorded readings as high as 200/100 mmHg; fluctuations potentially linked to anxiety. - Anxiety possibly impacting blood pressure stability. - History of breast cancer in treatment phase, with upcoming radiation therapy. - Body weight decline, with additional considerations related to dietary intake. - Management of mild essential tremors with current pharmacological approach. - Prior nicotine dependence, with cessation maintained. - Discussed the importance of dietary habits to manage weight and maintain a healthy BMI. - Reviewed hypertension management strategies, including medication adherence and anxiety control techniques. - Discussed upcoming radiation therapy for breast cancer. - Reinforced monitoring of anxiety and its potential impact on hypertension. - Past smoking history reviewed; encouraged continued abstinence from tobacco products. Review of Systems PHQ Score Initial Depression Screen Score: 0 SCORE Physical Exam Vitals & Measurements T: 36.4 ???C(Oral) HR: 78(Peripheral) RR: 18 BP: 146/90 SpO2: 97% HT: 65 in HT: 165.5 cm WT: 57.0 kg WT: 125.663 lb BMI: 20.81 General: alert, no acute distress ENMT: oral mucosa moist Cardiovascular: Regular rate and rhythm, normal peripheral perfusion Respiratory: Lungs clear to auscultation, respirations non labored Extremities: no deformity, no trauma, no swelling of feet Neurological: oriented x 4, level of consciousness appropriate for age, CN II- XII intact, motor strength equal & normal bilaterally, speech normal Abdomen: Soft, Non-tender, Non-distended, + Bowel sounds Assessment/Plan 1. HTN (hypertension) (I10: Essential (primary) hypertension) - Monitor and manage with antihypertensive therapy and anxiety control. - Improved once patient sat. - Will recheck at next visit 2. Essential tremor (G25.0: Essential tremor) - Manage with beta blockers. - If worsening, will send to Neuro 3. Edema (R60.9: Edema, unspecified) - Monitor current treatment impacts. 4. Breast cancer of lower-inner quadrant of left female breast (C50.312: Malignant neoplasm of lower-inner quadrant of left female breast) - Ongoing treatment with scheduled radiation. 5. Anxiety (F41.9: Anxiety disorder, unspecified) - Address anxiety to stabilize blood pressure; continue current medication. 6. Former smoker (Z87.891: Personal history of nicotine dependence) - Reinforce smoking cessation. 7. BMI 20.0-20.9, adult (Z68.20: Body mass index [BMI] 20.0-20.9, adult) - Discussed dietary intake and weight stabilization. - 64-year-old female with history of essential hypertension, presenting with fluctuating blood pressure exacerbated by anxiety. - Notable blood pressure instability related to anxiety. - Recent history of breast cancer, with ongoing therapy. - Weight reduction observed. - Essential tremor, current management ongoing. I discussed with the patient the importance of managing her blood pressure fluctuations, which are currently exacerbated by anxiety. We reviewed her current medication adherence and the role of anxiety in her blood pressure stability. For her ongoing breast cancer treatment, I provided support regarding the upcoming radiation therapy. Weight loss was noted, and I encouraged further healthy dietary practices to stabilize her BMI. For tremors, continuation of her current therapy with beta blockers was advised. Lastly, I reinforced her success in maintaining abstinence from smoking, emphasizing the health benefits associated with continued tobacco cessation. We will continue to monitor her progress and adjust her management plans as needed. - Follow up in 3 months. Follow-up No qualifying data available Problem List/Past Medical Histor (more content not included)...[facility] CenterComment on above:Result Comment: Electronically Signed By: Kishan PRATT, Michael Ball.br\Date and Time Signed: 01/21/25 13:27 EDTAlanine aminotransferase [Enzymatic activity/volume] in Serum or PlasmaOrdered By: Josseline Simpson on 18-23-9813QSX [Catalytic activity/Vol]Alanine aminotransferase [Enzymatic activity/volume] in Serum or PlasmaSelect Medical Cleveland Clinic Rehabilitation Hospital, AvonALT [Catalytic activity/Vol]12 U/LNormalSelect Medical Cleveland Clinic Rehabilitation Hospital, AvonComment on above:Performed By: #### CMP ####[facility] [address] [place] [address] USAAlbumin [Mass/volume] in Serum or Plasma by Bromocresol green (BCG) dye binding methoOrdered By: Josseline Simpson on 77-40-9362Grcrdto BCG dye [Mass/Vol]Albumin [Mass/volume] in Serum or Plasma by Bromocresol green (BCG) dye binding metho3.5-5.7FCincinnati Children's Hospital Medical CenterAlbumin BCG dye [Mass/Vol]4.0 g/dL3.5-5.7FCincinnati Children's Hospital Medical Center Alkaline phosphatase [Enzymatic activity/volume] in Serum or PlasmaOrdered By: Josseline Simpson on 15-23-5472KHF [Catalytic activity/Vol]Alkaline phosphatase [Enzymatic activity/volume] in Serum or Xgbjxp14-770FpxpwmpybSelect Medical Cleveland Clinic Rehabilitation Hospital, AvonALP [Catalytic activity/Vol]50 U/EKclpra32-591Wetgaoajx74 Anderson StreetComment on above:Performed By: #### CMP ####[address] [address] USAAspartate aminotransferase [Enzymatic activity/volume] in Serum or PlasmaOrdered By: Josseline Simpson on 82-96-4808FJI [Catalytic activity/Vol]Aspartate aminotransferase [Enzymatic activity/volume] in Serum or Gqiaop28-96CyomusoknSelect Medical Cleveland Clinic Rehabilitation Hospital, AvonAST [Catalytic activity/Vol]21 U/XBblugp76-57Inemunjvd93 Cardenas StreetComment on above: Performed By: #### CMP ####[address] [address] USABasophils Auto (Bld) [#/Vol]Ordered By: Kush Hooker on 95-50-8365Zifvtqgak (Bld) [#/Vol]Automated basophil count0.0-0.2 [facility], AvonBasophils [#/volume] in Blood by Automated countOrdered By: tara Glez on 98-64-1386Wfygcyaxl (Bld) [#/Vol]0.0 10*3/uL Normal0.0-0.2FCincinnati Children's Hospital Medical CenterComment on above:Result Comment: PERFORMED BY:[address] [place], [place] [id number] MEDICAL DIRECTORALTHEA MEADOWS M.D. Performed By: #### CBC ####[address] [place] [address] USABasophils/100 WBC Auto (Bld)Ordered By: tara Hooker on 89-04-8233Lptwrasws/100 WBC (Bld)Automated basophil %.[facility], AvonBasophils/100 leukocytes in Blood by Automated count Ordered By: tara Glez on 67-27-0290Vkxyvltsk/100 WBC (Bld)0.7 %Normal. [facility] Hospital, AvonComment on above:Performed By: #### CBC ####[address] [address] [place] Bilirubin.total [Mass/volume] in Serum or PlasmaOrdered By: Josseline Simpson on 23-35-6580Zpmmpmdva [Mass/Vol]Bilirubin.total [Mass/volume] in Serum or Plasma 0.3-1.0[facility], AvonBilirubin [Mass/Vol]0.4 mg/dLNormal 0.3-1.0[facility], AvonComment on above:Performed By: #### CMP ####[address] [address] USACalcium [Mass/volume] in Serum or PlasmaOrdered By: Josseline Simpson on 85-28-0464Fcdzsxp [Mass/Vol]Calcium [Mass/volume] in Serum or Plasma8.6-10.3FCincinnati Children's Hospital Medical CenterCalcium [Mass/Vol]9.9 mg/dLNormal8.6-10.3FCincinnati Children's Hospital Medical CenterComment on above:Performed By: #### CMP ####[address] [address] USACarbon dioxide, total [Moles/volume] in Serum or PlasmaOrdered By: Josseline Simpson on 67-02-5739UQ9 [Moles/Vol]Carbon dioxide, total [Moles/volume] in Serum or Ffadxo27.0-31.0 [facility] Hospital, AvonCO2 [Moles/Vol]30.4 mmol/WZhzkbw79.0-31.0 [facility], AvonComment on above:Performed By: #### CMP ####[address] [place] [address] [facility] Chloride [Moles/volume] in Serum or PlasmaOrdered By: Josseline Simpson on 12-31-2024 Chloride [Moles/Vol]Chloride [Moles/volume] in Serum or Jthqhh85-319JahxnoglaSelect Medical Cleveland Clinic Rehabilitation Hospital, AvonChloride [Moles/Vol]101 mmol/BWixjqa44-921BnzugnlhmSelect Medical Cleveland [facility] Rehabilitation Hospital, AvonComment on above:Performed By: #### CMP ####[place] [id number] USAComplete Blood Count Auto Diffon 50-39-7837Fpmf Corpuscular HGB Conc34.7 g/vNAxapwg68.0-35.0The [facility] Physician GroupComment on above:Performed By: #### CBC ####[place] [id number] USANRBC%0.3 /100{WBC} Normal0-0.5The [facility] Physician [facility] Care SystemComment on above:Performed By: #### CBC ####[place] [id number] [facility] Comprehensive Metabolic Panelon 67-31-5264Dmmsmni [Mass/Vol]4.0 g/dLNormal 3.5-5.7The [facility] Physician [facility] SystemComment on above:Performed By: #### CMP ####[place] [id number] [place] Creatinine Clr Calc Znjuebdu04.73NormalThe [facility] Physician [facility] SystemComment on above:Result Comment: PERFORMED BY:[address] [place], [place] [id number] MEDICAL DIRECTORALTHEA JIMENEZ M.D.Performed By: #### CMP ####[place] [id number] USAGFR/1.73 sq M.predicted MDRD (S/P/Bld) [Vol rate/Area]mL/min/{1.73_m2}NormalThe [facility] Physician [facility] SystemComment on above: Performed By: #### CMP ####[place] [id number] [facility]ITALComprehensive metabolic panelon 17-97-0091Qbvvmew [Mass/Vol]4 g/dL3.5 - 5.7 g/dLNOMS HealthcareAlbumin/Globulin [Mass ratio]1.5 {ratio}NOMS HealthcareALP [Catalytic activity/Vol]50 U/L34 - 104 U/LNOMS HealthcareALT [Catalytic activity/Vol]12 U/L7 - 52 U/LNOMS HealthcareAnion gap [Moles/Vol]11.6 mmol/L6.0 - 15.0 meq/LNOMS HealthcareAST [Catalytic activity/Vol]21 U/L13 - 39 U/LNOMS HealthcareBilirubin [Mass/Vol]0.4 mg/dL0.3 - 1.0 mg/dLNOMS HealthcareCalcium [Mass/Vol]9.9 mg/dL8.6 - 10.3 mg/dLNOMS HealthcareChloride [Moles/Vol]101 mmol/L98 - 107 mmol/LNOMS HealthcareCO2 [Moles/Vol]30.4 mmol/L21.0 - 31.0 mmol/LNOMS HealthcareCreatinine (U) [Mass/Vol] 0.99 mg/dL0.60 - 1.20 mg/dLNOMS HealthcareCREATININE CLR CALC MVQJAZWJ74.73NOMS HealthcareESTIMATED GFRmL/MinNOMS HealthcareGlobulin (S) [Mass/Vol]2.6 g/dLNOMS HealthcareGlucose [Mass/Vol]101 mg/xNEcwr78 - 100 mg/dLNORI HealthcareComment on above:Random Glucose Reference Range is dependent on time and content of last meal. Glucose of more than 200 mg/dL in a nonstressed, ambulatory subject supports the diagnosis of Diabetes Mellitus. ADA recommended reference range Interpretation and review of laboratory resultsAbnormalNOMS HealthcarePotassium [Moles/Vol]4 mmol/L3.5 - 5.1 mmol/LNOMS HealthcareProtein [Mass/Vol]6.6 g/dL6.4 - 8.9 g/dLNOMS HealthcareSodium [Moles/Vol]139 mmol/L136 - 145 mmol/LNOMS HealthcareUrea nitrogen [Mass/Vol]18 mg/dL7 - 25 mg/dLNOMS HealthcareNOMS HealthcareCreatinine [Mass/volume] in Serum or PlasmaOrdered By: Josseline Simpson on 51-06-3960Jvbtyqehbh [Mass/Vol]Creatinine [Mass/volume] in Serum or Plasma 0.60-1.20[facility], AvonCreatinine [Mass/Vol]0.99 mg/dLNormal 0.60-1.20[facility], AvonComment on above:Performed By: #### CMP ####[address] Eosinophils Auto (Bld) [#/Vol]Ordered By: tara Glez on 12-31-2024 Eosinophils (Bld) [#/Vol]Automated eosinophil count0.0-0.45[facility], AvonEosinophils [#/volume] in Blood by Automated countOrdered By: Kush Glez on 08-81-4750Fqvsmblfwmy (Bld) [#/Vol]0.1 10*3/uLNormal0.0-0.45 [facility], AvonComment on above:Performed By: #### CBC ####[place] [address] [place] Eosinophils/100 WBC Auto (Bld)Ordered By: tara Glez on 12-31-2024 Eosinophils/100 WBC (Bld)Automated eosinophil %.[facility], AvonEosinophils/100 leukocytes in Blood by Automated countOrdered By: tara Hooker on 05-73-7226Vxvvjxlxhfp/100 WBC (Bld)2.0 %Normal.[facility], AvonComment on above:Performed By: #### CBC ####[place] [id number] USAErythrocyte distribution width Auto (RBC) [Ratio]Ordered By: Kush Glez on 27-42-2577Wrabnwgmovn distribution width (RBC) [Ratio]Erythrocyte distribution width [Ratio] by Automated fmchaCtbc82.9-15.3FCincinnati Children's Hospital Medical CenterErythrocyte distribution width [Ratio] by Automated countOrdered By: Kush Glez on 35-77-3277Msjxyjytsxo distribution width (RBC) [Ratio]17.0 %High11.9-15.3 [facility], AvonComment on above:Performed By: #### CBC ####[place] [address] [address] Erythrocytes [#/volume] in Blood by Automated countOrdered By: Kush Glez on 50-18-7645LDD (Bld) [#/Vol]2.98 10*6/uLLow3.60-5.00[facility], AvonComment on above:Performed By: #### CBC ####[place] [address] [place] [id number] USAGlobulin Calc (S) [Mass/Vol]Ordered By: Josseline Simpson on 88-31-0092Rpxdssvb (S) [Mass/Vol]Serum globulin measurement by calculation (mass/volume)[facility], AvonGlucose [Mass/volume] in Serum or PlasmaOrdered By: Josseline Simpson on 10-86-5494Dhknzah [Mass/Vol]Glucose [Mass/volume] in Serum or HxtzbtOkkc54-265Hdolwpkeb[address] Comment on above:ADA recommended reference rangeRandom Glucose Reference Range is dependent on time and content of last meal. Glucose of more than 200 mg/dL in a nonstressed, ambulatory subject supports the diagnosisof Diabetes Mellitus. Glucose [Mass/Vol]101 mg/bAUcgj86-886Oinrbaxtj92 Andrews StreetComment on above:ADA recommended reference rangeRandom Glucose Reference Range is dependent on time and content of last meal. Glucose of more than 200 mg/dL in a nonstressed, ambulatory subject supports the diagnosisof Diabetes Mellitus. Result Comment: Random Glucose Reference Range is dependent on time and content of last meal. Glucose of more than 200 mg/dL in a nonstressed, ambulatory subject supports the diagnosis of Diabetes Mellitus. ADA recommended reference rangePerformed By: #### CMP ####[place] [id number] USAHematocrit Auto (Bld) [Volume fraction]Ordered By: Kush Glez on 98-35-1898Clnhucsndd (Bld) [Volume fraction]Hematocrit [Volume Fraction] of Blood by Automated javbxAng59.0-46.4FCincinnati Children's Hospital Medical CenterHematocrit [Volume Fraction] of Blood by Automated countOrdered By: tara Glez on 62-60-6301Jbngplqzdi (Bld) [Volume fraction]30.7 %Low34.0-46.4 [facility], AvonComment on above:Performed By: #### CBC ####[facility] [place] [id number] [facility] Hemoglobin [Mass/volume] in BloodOrdered By: tara Glez on 12-31-2024 Hemoglobin (Bld) [Mass/Vol]Hemoglobin [Mass/volume] in SvyaqVci36.8-15.4 [facility], AvonHemoglobin (Bld) [Mass/Vol]10.6 g/dLLow 11.8-15.4FCincinnati Children's Hospital Medical CenterComment on above:Performed By: #### CBC ####[place] [address] [place] [address]70 [facility] Leukocytes [#/volume] corrected for nucleated erythrocytes in Blood by Automated counOrdered By: tara Glez on 14-19-7007XYM corrected for nucl RBC Auto (Bld) [#/Vol]Leukocytes [#/volume] corrected for nucleated erythrocytes in Blood by Automated coun3.8-11.6FCincinnati Children's Hospital Medical CenterWBC corrected for nucl RBC Auto (Bld) [#/Vol]5.3 10*3/uL3.8-11.6FCincinnati Children's Hospital Medical Center Leukocytes [#/volume] in Blood by Automated countOrdered By: tara Glez on 26-96-8292ZXD (Bld) [#/Vol]5.3 10*3/uLNormal3.8-11.6FCincinnati Children's Hospital Medical CenterComment on above:Performed By: #### CBC ####[place] [address] [place] [id number] USALymphocytes Auto (Bld) [#/Vol]Ordered By: tara Glez on 65-17-8181Bnlmeporalm (Bld) [#/Vol]Lymphocytes [#/volume] in Blood by Automated count1.00-4.8[facility], AvonLymphocytes [#/volume] in Blood by Automated countOrdered By: tara Glez on 12-31-2024 Lymphocytes (Bld) [#/Vol]1.9 10*3/uLNormal1.00-4.8[facility], AvonComment on above:Performed By: #### CBC ####[address] [address] USALymphocytes/100 WBC Auto (Bld)Ordered By: tara Glez on 43-24-3879Dmmpqzhonwv/100 WBC (Bld)Lymphocytes/100 leukocytes in Blood by Automated count.[facility] [place] Lymphocytes/100 leukocytes in Blood by Automated countOrdered By: tara Glez on 79-43-2051Gcnrrrbjccb/100 WBC (Bld)35.1 %Normal.[facility], AvonComment on above:Performed By: #### CBC ####[address] [address] [facility] [place] Auto (RBC) [Entitic mass]Ordered By: tara Glez on 76-68-7277CCW (RBC) [Entitic mass]MCH [Entitic mass] by Automated ahofnJfzr51.7-34.3FWayne [facility] [Entitic mass] by Automated countOrdered By: tara Glez on 97-73-9687DJF (RBC) [Entitic mass]35.7 mlMyot99.7-34.3FCincinnati Children's Hospital Medical CenterComment on above: Performed By: #### CBC ####[address] [address] [facility] Auto (RBC) [Mass/Vol]Ordered By: tara Glez on 50-80-3665KSOM (RBC) [Mass/Vol]MCHC [Mass/volume] by Automated count 32.0-35.0[facility] (RBC) [Mass/Vol]34.7 g/dL 32.0-35.0TriHealthV Auto (RBC) [Entitic vol]Ordered By: tara Glez on 78-51-9934UZR (RBC) [Entitic vol]MCV [Entitic volume] by Automated zrweyYuew41-536XvmobkdonSelect Medical Cleveland Clinic Rehabilitation Hospital, AvonMCV [Entitic volume] by Automated countOrdered By: tara Glez on 49-11-4579FDL (RBC) [Entitic vol]102.9 uSVzzm61-644CyyjvkhpkSelect Medical [facility] Clinic Rehabilitation Hospital, AvonComment on above: Performed By: #### CBC ####[place] [address] [place] [address] USAMonocytes Auto (Bld) [#/Vol]Ordered By: tara Hooker on 07-71-2298Jnhrlczei (Bld) [#/Vol]Automated blood monocyte count 0.0-0.8[facility], AvonMonocytes [#/volume] in Blood by Automated countOrdered By: tara Glez on 36-37-9399Xhnkhfnyj (Bld) [#/Vol] 0.4 10*3/uLNormal0.0-0.8[facility], AvonComment on above: Performed By: #### CBC ####[address] [address] USAMonocytes/100 WBC Auto (Bld)Ordered By: tara Hooker on 79-93-3655Qlcrjkjgh/100 WBC (Bld)Automated monocyte %.[facility], AvonMonocytes/100 leukocytes in Blood by Automated count Ordered By: tara Glez on 72-48-5423Nhtlnrocc/100 WBC (Bld)7.6 %Normal. [facility], AvonComment on above:Performed By: #### CBC ####[address] [address] [place] Neutrophils Auto (Bld) [#/Vol]Ordered By: tara Glez on 12-31-2024 Neutrophils (Bld) [#/Vol]Neutrophils [#/volume] in Blood by Automated count 1.8-7.7FCincinnati Children's Hospital Medical CenterNeutrophils [#/volume] in Blood by Automated countOrdered By: Kush Glez on 52-79-0481Cngsktczrvl (Bld) [#/Vol] 2.9 10*3/uLNormal1.8-7.7FCincinnati Children's Hospital Medical CenterComment on above: Performed By: #### CBC ####[place] [address] [place] [address] USANeutrophils/100 WBC Auto (Bld)Ordered By: tara Hooker on 39-50-4289Xozweeqpepz/100 WBC (Bld)Automated neutrophil %.[facility], AvonNeutrophils/100 leukocytes in Blood by Automated count Ordered By: tara Glez on 40-28-9508Iszyexpfuev/100 WBC (Bld)54.6 %Normal. [facility], AvonComment on above:Performed By: #### CBC ####[address] [address] USANo Panel InformationOrdered By: Josseline Simpson on 90-94-9432Ytqftqrzd GFR (CKD-EPI)> 60.0 mL/MinSelect Medical Cleveland Clinic Rehabilitation Hospital, AvonPhaacy Creatinine Clearance (Chem 53.73[facility], AvonNucleated erythrocytes [Presence] in Blood by Automated countOrdered By: tara Glez on 83-92-8668Halgeowju RBC Auto Ql (Bld)Nucleated erythrocytes [Presence] in Blood by Automated count0-0.5 [facility], AvonNucleated RBC Auto Ql (Bld)0.3 /100{WBC}0-0.5 [facility], AvonPlatelet mean volume Auto (Bld) [Entitic vol] Ordered By: tara Glez on 66-30-6288Fincyemf mean volume (Bld) [Entitic vol] Platelet mean volume [Entitic volume] in Blood by Automated count6.3-10.7 [facility], AvonPlatelet mean volume [Entitic volume] in Blood by Automated countOrdered By: tara Glez on 95-86-7458Ekcpcpmn mean volume (Bld) [Entitic vol]8.0 fLNormal6.3-10.7FCincinnati Children's Hospital Medical CenterComment on above:Performed By: #### CBC ####[facility] [place] [address] USAPlatelets Auto (Bld) [#/Vol]Ordered By: Kush Hooker on 57-68-6648Jcqslnsue (Bld) [#/Vol]Platelets [#/volume] in Blood by Automated sspyi650-560DjnlnuajnSelect Medical Cleveland Clinic Rehabilitation Hospital, AvonPlatelets [#/volume] in Blood by Automated countOrdered By: Kush Glez on 92-95-1254Hlkzmudqa (Bld) [#/Vol]222 10*3/lMIdajmo691-651PakwvdwwzSelect Medical [facility], AvonComment on above:Performed By: #### CBC ####[address] [address] USAPotassium [Moles/volume] in Serum or PlasmaOrdered By: Josseline Sipmson on 41-01-0933Utqnfrxvy [Moles/Vol]Potassium [Moles/volume] in Serum or Plasma3.5-5.1FCincinnati Children's Hospital Medical CenterPotassium [Moles/Vol]4.0 mmol/LNormal3.5-5.1FCincinnati Children's Hospital Medical CenterComment on above:Performed By: #### CMP ####[address] [address] USAProtein [Mass/volume] in Serum or PlasmaOrdered By: Josseline Simpson on 83-68-8817Cpjbmml [Mass/Vol]Protein [Mass/volume] in Serum or Plasma6.4-8.9 [facility], AvonProtein [Mass/Vol]6.6 g/dLNormal6.4-8.9 [facility], AvonComment on above:Performed By: #### CMP ####[address] [address] USARBC Auto (Bld) [#/Vol]Ordered By: Kush Glez on 33-62-8752IHZ (Bld) [#/Vol] Erythrocytes [#/volume] in Blood by Automated countLow3.60-5.00[facility] Cincinnatierum globulin measurement by calculation (mass/volume) Ordered By: Josseline Simpson on 93-87-6127Quepvblj (S) [Mass/Vol]2.6 g/dLNoal [facility], AvonComment on above:Performed By: #### CMP ####[place] [id number] USASerum or plasma albumin/globulin mass ratioOrdered By: Josseline Simpson on 12-31-2024 Albumin/Globulin [Mass ratio]Serum or plasma albumin/globulin mass ratio [facility], AvonAlbumin/Globulin [Mass ratio]1.5 {ratio}Normal [facility], AvonComment on above:Performed By: #### CMP ####[place] [id number] USASerum or plasma anion gap determinationOrdered By: Josseline Simpson on 98-51-3631Xxrvc gap [Moles/Vol]Serum or plasma anion gap determination6.0-15.0[facility], AvonAnion gap [Moles/Vol]11.6 mmol/LNormal6.0-15.0[facility], AvonComment on above:Performed By: #### CMP ####[place] [id number] USASodium [Moles/volume] in Serum or PlasmaOrdered By: Josseline Simpson on 04-90-9946Xjjprm [Moles/Vol]Sodium [Moles/volume] in Serum or Frqfos801-999CvjomouvySelect Medical Specialty Hospital - Cincinnatiodium [Moles/Vol]139 mmol/FUibccv515-973IfgvfuonpSelect Medical [facility] Clinic [facility], AvonComment on above:Performed By: #### CMP ####[place] [id number] USAUrea nitrogen [Mass/volume] in Serum or Plasma Ordered By: Josseline Simpson on 10-25-6086Hqev nitrogen [Mass/Vol]Urea nitrogen [Mass/volume] in Serum or Plasma7[facility], AvonUrea nitrogen [Mass/Vol]18 mg/dLNormal03-28[facility], AvonComment on above:Performed By: #### CMP ####[place] [id number] USAWBC Auto (Bld) [#/Vol]Ordered By: Kush Glez on 32-79-5133KLK (Bld) [#/Vol]Leukocytes [#/volume] in Blood by Automated count 3.8-11.6FCincinnati Children's Hospital Medical CenterAlanine aminotransferase [Enzymatic activity/volume] in Serum or PlasmaOrdered By: Kush Glez on 12-06-3532MVE [Catalytic activity/Vol]Alanine aminotransferase [Enzymatic activity/volume] in Serum or Plasma7-52[facility], AvonAlbumin [Mass/volume] in Serum or Plasma by Bromocresol green (BCG) dye binding methoOrdered By: Kush Hooker on 30-46-4501Ixnpuaz BCG dye [Mass/Vol]Albumin [Mass/volume] in Serum or Plasma by Bromocresol green (BCG) dye binding metho3.5-5.7FCincinnati Children's Hospital Medical CenterAlkaline phosphatase [Enzymatic activity/volume] in Serum or PlasmaOrdered By: Kush Glez on 69-52-3104DYG [Catalytic activity/Vol] Alkaline phosphatase [Enzymatic activity/volume] in Serum or Ottfuz81-838 [facility], AvonAspartate aminotransferase [Enzymatic activity/volume] in Serum or PlasmaOrdered By: Kush Glez on 21-75-4054KKN [Catalytic activity/Vol]Aspartate aminotransferase [Enzymatic activity/volume] in Serum or Xpmksm46-42BapjqakrlSelect Medical Cleveland Clinic Rehabilitation Hospital, AvonBasophils Auto (Bld) [#/Vol]Ordered By: Kush Glez on 85-12-9019Foygceyxs (Bld) [#/Vol]Automated basophil count0.0-0.2FCincinnati Children's Hospital Medical CenterBasophils/100 WBC Auto (Bld)Ordered By: Kush Glez on 63-07-4945Hcexyrwvh/100 WBC (Bld)Automated basophil %.[facility], AvonBilirubin.total [Mass/volume] in Serum or PlasmaOrdered By: Kush Glez on 81-54-9632Usvhrerzi [Mass/Vol] Bilirubin.total [Mass/volume] in Serum or Plasma0.3-1.0[facility], AvonCalcium [Mass/volume] in Serum or PlasmaOrdered By: Kush Glez on 59-71-6165Qkphtzn [Mass/Vol]Calcium [Mass/volume] in Serum or Plasma8.6-10.3 [facility], AvonCarbon dioxide, total [Moles/volume] in Serum or PlasmaOrdered By: Kush Glez on 20-37-4610LM4 [Moles/Vol]Carbon dioxide, total [Moles/volume] in Serum or Fscgcl49.0-31.0[facility], AvonChloride [Moles/volume] in Serum or PlasmaOrdered By: Kush Glez on 85-60-3139Cgwbtjud [Moles/Vol]Chloride [Moles/volume] in Serum or Oqzlrk86-077 [facility], AvonComplete Blood Count Auto Diffon 12-24-2024 Basophils (Bld) [#/Vol]0.0 10*3/uLNormal0.0-0.2The [facility] Comment on above:Result Comment: PERFORMED BY:[address] [place], [place] [phone] MEDICAL DIRECTORALTHEA MEADOWS M.D.Performed By: #### CBC ####[place] [id number] USABasophils/100 WBC (Bld)0.4 % Normal.The [facility] Physician GroupComment on above:Performed By: #### CBC ####[address] [address] [place] Eosinophils (Bld) [#/Vol]0.1 10*3/uLNormal0.0-0.45The [facility] Comment on above:Performed By: #### CBC ####[address] [address] USAEosinophils/100 WBC (Bld)1.7 %Normal.The [facility] Physician GroupComment on above:Performed By: #### CBC ####[place] [address] USAErythrocyte distribution width (RBC) [Ratio]16.7 %High11.9-15.3The [facility] Comment on above:Performed By: #### CBC ####[address] [address] USAHematocrit (Bld) [Volume fraction]32.6 %Low 34.0-46.4The [facility] Physician GroupComment on above:Performed By: #### CBC ####[address] Hemoglobin (Bld) [Mass/Vol]11.1 g/dLLow11.8-15.4The [facility] Comment on above:Performed By: #### CBC ####[place] [id number] USALymphocytes (Bld) [#/Vol]1.5 10*3/uLNormal 1.00-4.8The [facility] Physician GroupComment on above:Performed By: #### CBC ####[place] [address] [place] Lymphocytes/100 WBC (Bld)26.6 %Normal.The [facility] Physician GroupComment on above:Performed By: #### CBC ####[address] [address] USAMCH (RBC) [Entitic mass]34.9 wtUtzx77.7-34.3The [facility] Physician GroupComment on above:Performed By: #### CBC ####[place] [id number] USAMCV (RBC) [Entitic vol]102.1 dQSrln77-779Jwf [facility] Physician GroupComment on above:Performed By: #### CBC ####[place] [id number] USAMean Corpuscular HGB Conc34.2 g/wLIoljsf97.0-35.0The [facility] Physician GroupComment on above:Performed By: #### CBC ####[place] [address] USAMonocytes (Bld) [#/Vol]0.3 10*3/uLNormal0.0-0.8The [facility] Physician GroupComment on above:Performed By: #### CBC ####[address] [address] USAMonocytes/100 WBC (Bld)5.1 %Normal.The [facility] Physician GroupComment on above:Performed By: #### CBC ####[address] [address] USANeutrophils (Bld) [#/Vol]3.6 10*3/uLNormal1.8-7.7The [facility] Physician GroupComment on above:Performed By: #### CBC ####[address] [address] USANeutrophils/100 WBC (Bld)66.2 %Normal.The [facility] Physician GroupComment on above:Performed By: #### CBC ####[address] [address] USANRBC%0.1 /100{WBC}Normal0-0.5The [facility] Physician GroupComment on above: Performed By: #### CBC ####[address] [address] USAPlatelet mean volume (Bld) [Entitic vol]7.9 fLNormal 6.3-10.7The [facility] Physician GroupComment on above:Performed By: #### CBC ####[address] [address] [place] Platelets (Bld) [#/Vol]232 10*3/nKZffdnx892-417Iqu [facility] Comment on above:Performed By: #### CBC ####[address] [address] USARBC (Bld) [#/Vol]3.19 10*6/uLLow3.60-5.00The [facility] GroupComment on above:Performed By: #### CBC ####[address] [address] USAWBC (Bld) [#/Vol]5.5 10*3/uLNormal3.8-11.6The [facility] Physician GroupComment on above:Performed By: #### CBC ####[address] [address] USAComprehensive Metabolic Panelon 52-16-6707Shorcez [Mass/Vol]4.0 g/dLNormal 3.5-5.7The [facility] Physician GroupComment on above:Performed By: #### CMP ####[address] [address] [place] Albumin/Globulin [Mass ratio]1.3 {ratio}NormalThe [facility] Comment on above:Performed By: #### CMP ####[address] [address] USAALP [Catalytic activity/Vol]61 U/FEyukfd50-489 The [facility] Physician GroupComment on above:Performed By: #### CMP ####[address] [address] USAALT [Catalytic activity/Vol]11 U/LNormal7-52The [facility] Physician GroupComment on above:Performed By: #### CMP ####[address] [address] USAAnion gap [Moles/Vol]11.2 mmol/LNormal6.0-15.0The [facility] Physician GroupComment on above:Performed By: #### CMP ####[address] [address] USAAST [Catalytic activity/Vol]18 U/FJrssbc46-41Dya [facility] Physician GroupComment on above: Performed By: #### CMP ####[address] [address] USABilirubin [Mass/Vol]0.4 mg/dLNormal0.3-1.0The [facility] Physician GroupComment on above:Performed By: #### CMP ####[address] [address] USACalcium [Mass/Vol]9.7 mg/dLNormal8.6-10.3The [facility] Physician GroupComment on above:Performed By: #### CMP ####[address] [address] USAChloride [Moles/Vol]104 mmol/QUtbaja00-538Qbk [facility] Comment on above:Performed By: #### CMP ####[address] [address] USACO2 [Moles/Vol]26.8 mmol/SIzjgfr04.0-31.0The [facility] Physician GroupComment on above:Performed By: #### CMP ####[address] [address] USACreatinine [Mass/Vol] 0.97 mg/dLNormal0.60-1.20The [facility] Physician GroupComment on above:Performed By: #### CMP ####[address] [address] USACreatinine Clr Calc Utwcuuvf12.24NoFormerly [facility] Comment on above:Result Comment: PERFORMED BY:[address] [place], [place] [phone] MEDICAL DIRECTORALTHEA MEADOWS M.D.Performed By: #### CMP ####[address] [address] USAGFR/1.73 sq M.predicted MDRD (S/P/Bld) [Vol rate/Area]mL/min/{1.73_m2}NormalThe [facility] Comment on above:Performed By: #### CMP ####[address] [address] USAGlobulin (S) [Mass/Vol]3.0 g/dLNormSanta Rosa Medical Center Physician [facility] SystemComment on above:Performed By: #### CMP ####[address] [address] USAGlucose [Mass/Vol]116 mg/uZMewv56-704Kca [facility] Physician GroupComment on above:Result Comment: Random Glucose Reference Range is dependent on time and content of last meal. Glucose of more than 200 mg/dL in a nonstressed, ambulatory subject supports the diagnosis of Diabetes Mellitus. ADA recommended reference rangePerformed By: #### CMP ####[facility] [place] [address] USAPotassium [Moles/Vol]4.0 mmol/LNormal3.5-5.1The [facility] Comment on above:Performed By: #### CMP ####[facility] [place] [address] USAProtein [Mass/Vol]7.0 g/dLNormal6.4-8.9The [facility] Physician GroupComment on above:Performed By: #### CMP ####[place] [address] [place] [address] USASodium [Moles/Vol]138 mmol/EIretwr620-359Jev [facility] Physician GroupComment on above:Performed By: #### CMP ####[place] [address] [place] [address] USAUrea nitrogen [Mass/Vol]27 mg/dLHigh7-25The [facility] Physician GroupComment on above:Performed By: #### CMP ####[facility] [place] [address] USACreatinine [Mass/volume] in Serum or PlasmaOrdered By: Kush Glez on 88-37-0082Htnyzmbwdw [Mass/Vol]Creatinine [Mass/volume] in Serum or Plasma0.60-1.20[facility], AvonEosinophils Auto (Bld) [#/Vol]Ordered By: Kush Glez on 43-18-0950Gogizaqmvwy (Bld) [#/Vol] Automated eosinophil count0.0-0.45[facility] Eosinophils/100 WBC Auto (Bld)Ordered By: Kush Glez on 12-24-2024 Eosinophils/100 WBC (Bld)Automated eosinophil %.[facility], AvonErythrocyte distribution width Auto (RBC) [Ratio]Ordered By: uKsh Hooker on 00-57-9427Mszpevrecvu distribution width (RBC) [Ratio]Erythrocyte distribution width [Ratio] by Automated jlhvoFbbl48.9-15.3FCincinnati Children's Hospital Medical CenterGlobulin Calc (S) [Mass/Vol]Ordered By: Kush Glez on 16-54-5284Mwcjxbkf (S) [Mass/Vol]Serum globulin measurement by calculation (mass/volume)[facility], AvonGlucose [Mass/volume] in Serum or PlasmaOrdered By: Kush Glez on 28-89-5025Fpwhfjv [Mass/Vol]Glucose [Mass/volume] in Serum or YeqjoqSelb75-744MsmiylklxSelect Medical [facility] [place] Comment on above:ADA recommended reference rangeRandom Glucose Reference Range is dependent on time and content of last meal. Glucose of more than 200 mg/dL in a nonstressed, ambulatory subject supports the diagnosisof Diabetes Mellitus. Hematocrit Auto (Bld) [Volume fraction]Ordered By: Kush Glez on 12-24-2024 Hematocrit (Bld) [Volume fraction]Hematocrit [Volume Fraction] of Blood by Automated tvbyoKfp40.0-46.4FCincinnati Children's Hospital Medical CenterHemoglobin [Mass/volume] in BloodOrdered By: Kush Glez on 64-60-4033Smvlqesosy (Bld) [Mass/Vol]Hemoglobin [Mass/volume] in KihwtMlx55.8-15.4FCincinnati Children's Hospital Medical CenterLeukocytes [#/volume] corrected for nucleated erythrocytes in Blood by Automated counOrdered By: Kush Glez on 43-91-6648CTY corrected for nucl RBC Auto (Bld) [#/Vol]Leukocytes [#/volume] corrected for nucleated erythrocytes in Blood by Automated coun3.8-11.6FCincinnati Children's Hospital Medical Center Lymphocytes Auto (Bld) [#/Vol]Ordered By: Kush Glez on 12-24-2024 Lymphocytes (Bld) [#/Vol]Lymphocytes [#/volume] in Blood by Automated count 1.00-4.8[facility], AvonLymphocytes/100 WBC Auto (Bld)Ordered By: Kush Glez on 41-88-4231Rymaciydwwt/100 WBC (Bld)Lymphocytes/100 leukocytes in Blood by Automated count.[facility] [facility] AvonMCH Auto (RBC) [Entitic mass]Ordered By: Kush Glez on 85-21-9828VOM (RBC) [Entitic mass]MCH [Entitic mass] by Automated gpodcYgru61.7-34.3FCincinnati Children's Hospital Medical CenterMCHC Auto (RBC) [Mass/Vol]Ordered By: Kush Glez on 12-24-2024 MCHC (RBC) [Mass/Vol]MCHC [Mass/volume] by Automated count32.0-35.0[facility] AvonMCV Auto (RBC) [Entitic vol]Ordered By: Kush Glez on 27-32-8701HTV (RBC) [Entitic vol]MCV [Entitic volume] by Automated countHigh 80-100[facility], AvonMonocytes Auto (Bld) [#/Vol]Ordered By: Kush Glez on 44-04-7058Xatxhmtlk (Bld) [#/Vol]Automated blood monocyte count0.0-0.8[facility] AvonMonocytes/100 WBC Auto (Bld)Ordered By: Ksuh Glez on 33-26-2162Egeimmzja/100 WBC (Bld)Automated monocyte %. [facility] AvonNeutrophils Auto (Bld) [#/Vol]Ordered By: Kush Glez on 00-28-9539Woqolsozotm (Bld) [#/Vol]Neutrophils [#/volume] in Blood by Automated count1.8-7.7FCincinnati Children's Hospital Medical CenterNeutrophils/100 WBC Auto (Bld)Ordered By: Kush Glez on 46-08-1022Rxasvsjsdtp/100 WBC (Bld) Automated neutrophil %.[facility], AvonNo Panel Information Ordered By: Kush Glez on 21-78-4085Jaibhdvee GFR (CKD-EPI)> 60.0 mL/Min [facility]onPharmacy Creatinine Clearance (Chem54.24 [facility] AvonNucleated erythrocytes [Presence] in Blood by Automated countOrdered By: Kush Glez on 14-45-1074Tpqlcnrck RBC Auto Ql (Bld)Nucleated erythrocytes [Presence] in Blood by Automated count0-0.5FCincinnati Children's Hospital Medical CenterPlatelet mean volume Auto (Bld) [Entitic vol]Ordered By: Kush Glez on 98-40-6884Ttcbexww mean volume (Bld) [Entitic vol]Platelet mean volume [Entitic volume] in Blood by Automated count6.3-10.7FCincinnati Children's Hospital Medical CenterPlatelets Auto (Bld) [#/Vol]Ordered By: Kush Glez on 03-14-3089Rijgjsamd (Bld) [#/Vol]Platelets [#/volume] in Blood by Automated -587DiezkvgbmSelect Medical [facility], AvonPotassium [Moles/volume] in Serum or PlasmaOrdered By: Kush Glez on 65-20-7296Wjtdiutad [Moles/Vol]Potassium [Moles/volume] in Serum or Plasma3.5-5.1FCincinnati Children's Hospital Medical CenterProtein [Mass/volume] in Serum or PlasmaOrdered By: Kush Glez on 75-98-0566Xoxxhok [Mass/Vol]Protein [Mass/volume] in Serum or Plasma6.4-8.9[facility] AvonRBC Auto (Bld) [#/Vol]Ordered By: Kush Glez on 60-78-2793MTB (Bld) [#/Vol]Erythrocytes [#/volume] in Blood by Automated countLow3.60-5.00 [facility]atierum or plasma albumin/globulin mass ratio Ordered By: Kush Glez on 96-79-7299Epewuxp/Globulin [Mass ratio]Serum or plasma albumin/globulin mass ratioSelect Medical Specialty Hospital - Cincinnatierum or plasma anion gap determinationOrdered By: Kush Glez on 29-33-7054Supue gap [Moles/Vol]Serum or plasma anion gap determination6.0-15.0[facility]innatiodium [Moles/volume] in Serum or PlasmaOrdered By: Kush Glez on 71-01-4309Gfkxid [Moles/Vol]Sodium [Moles/volume] in Serum or Tnunds280-532 [facility] AvonUrea nitrogen [Mass/volume] in Serum or Plasma Ordered By: Kush Gelz on 03-88-4748Sfpx nitrogen [Mass/Vol]Urea nitrogen [Mass/volume] in Serum or PlasmaHigh7-25[facility] AvonWBC Auto (Bld) [#/Vol]Ordered By: Kush Glez on 44-10-6032DJX (Bld) [#/Vol] Leukocytes [#/volume] in Blood by Automated count3.8-11.6FCincinnati Children's Hospital Medical CenterAlanine aminotransferase [Enzymatic activity/volume] in Serum or PlasmaOrdered By: Kush Glez on 00-38-5729AGE [Catalytic activity/Vol] Alanine aminotransferase [Enzymatic activity/volume] in Serum or Plasma7-52 [facility] AvonAlbumin [Mass/volume] in Serum or Plasma by Bromocresol green (BCG) dye binding methoOrdered By: Kush Glez on 82-07-0606Oskbjpj BCG dye [Mass/Vol]Albumin [Mass/volume] in Serum or Plasma by Bromocresol green (BCG) dye binding metho3.5-5.7FCincinnati Children's Hospital Medical CenterAlkaline phosphatase [Enzymatic activity/volume] in Serum or PlasmaOrdered By: Kush Glez on 36-27-9746DPB [Catalytic activity/Vol]Alkaline phosphatase [Enzymatic activity/volume] in Serum or Zzoizx65-289JbyvochysSelect Medical Cleveland [facility], AvonAspartate aminotransferase [Enzymatic activity/volume] in Serum or Plasma Ordered By: Kush Glez on 39-61-2361SOI [Catalytic activity/Vol]Aspartate aminotransferase [Enzymatic activity/volume] in Serum or Amkzes96-61QvzdyrmbzSelect Medical Cleveland [facility], AvonBasophils Auto (Bld) [#/Vol]Ordered By: Kush Glez on 23-88-7937Wrbvhihsl (Bld) [#/Vol]Automated basophil count0.0-0.2FCincinnati Children's Hospital Medical CenterBasophils/100 WBC Auto (Bld)Ordered By: Kush Glez on 64-51-7047Ilnqtmnns/100 WBC (Bld)Automated basophil %.[facility], AvonBilirubin.total [Mass/volume] in Serum or PlasmaOrdered By: Kush Glez on 87-27-8408Stufmpqjr [Mass/Vol]Bilirubin.total [Mass/volume] in Serum or Plasma0.3-1.0[facility] AvonCalcium [Mass/volume] in Serum or PlasmaOrdered By: Kush Newberryrekha on 95-32-6903Yvtpclf [Mass/Vol]Calcium [Mass/volume] in Serum or Plasma8.6-10.3FCincinnati Children's Hospital Medical CenterCarbon dioxide, total [Moles/volume] in Serum or PlasmaOrdered By: [facility] Hospitaloh on 66-81-2260IL1 [Moles/Vol]Carbon dioxide, total [Moles/volume] in Serum or Plasma 21.0-31.0[facility] AvonChloride [Moles/volume] in Serum or PlasmaOrdered By: [facility] Hospitaloh on 56-13-5705Czztjthh [Moles/Vol]Chloride [Moles/volume] in Serum or Iqcfqx88-311JvossxtqySelect Medical [facility], AvonComplete Blood Count Auto Diffon 06-32-5370Lxqodpzmv (Bld) [#/Vol]0.0 10*3/uLNormal 0.0-0.2The [facility] Physician GroupComment on above:Result Comment: PERFORMED BY:[address] [place], [place] [phone] MEDICAL DIRECTORALTHEA MEADOWS M.D.Performed By: #### CBC ####[place] [address] [place] Basophils/100 WBC (Bld)0.7 %Normal.The [facility] Physician GroupComment on above:Performed By: #### CBC ####[place] [address] USAEosinophils (Bld) [#/Vol]0.1 10*3/uLNormal0.0-0.45 The [facility] Physician GroupComment on above:Performed By: #### CBC ####[place] [address] [place] Eosinophils/100 WBC (Bld)2.3 %Normal.The [facility] Physician GroupComment on above:Performed By: #### CBC ####[place] [address] USAErythrocyte distribution width (RBC) [Ratio]16.8 % High11.9-15.3The Former[facility] Physician GroupComment on above:Performed By: #### CBC ####[address] Hematocrit (Bld) [Volume fraction]33.8 %Low34.0-46.4The [facility] Physician GroupComment on above:Performed By: #### CBC ####[place] [address] USAHemoglobin (Bld) [Mass/Vol]11.5 g/dL Low11.8-15.4The Former[facility] Physician GroupComment on above:Performed By: #### CBC ####[place] [address] [place] Lymphocytes (Bld) [#/Vol]1.8 10*3/uLNormal1.00-4.8The [facility] Physician [facility] Comment on above:Performed By: #### CBC ####[place] [address] USALymphocytes/100 WBC (Bld)39.3 %Normal.The Former[facility] Physician GroupComment on above:Performed By: #### CBC ####[address]MCH (RBC) [Entitic mass]35.3 xzMuak94.7-34.3The [facility] Physician GroupComment on above:Performed By: #### CBC ####[address]MCV (RBC) [Entitic vol]103.5 fKTxjq92-167Qbn [facility] Physician [facility] Comment on above:Performed By: #### CBC ####[place] [address] USAMean Corpuscular HGB Conc34.1 g/dLNormal 32.0-35.0The Former[facility] Physician GroupComment on above:Performed By: #### CBC ####[address] Monocytes (Bld) [#/Vol]0.4 10*3/uLNormal0.0-0.8The [facility] Comment on above:Performed By: #### CBC ####[address] [address] USAMonocytes/100 WBC (Bld)8.7 %Normal.The [facility] Physician GroupComment on above:Performed By: #### CBC ####[address] [address] USANeutrophils (Bld) [#/Vol]2.3 10*3/uLNormal1.8-7.7The [facility] Physician GroupComment on above: Performed By: #### CBC ####[address] [address] USANeutrophils/100 WBC (Bld)49.0 %Normal.The [facility] Physician GroupComment on above:Performed By: #### CBC ####[address] [address] USANRBC%0.1 /100{WBC}Normal0-0.5 The [facility] Physician GroupComment on above:Performed By: #### CBC ####[address] [address] [place] Platelet mean volume (Bld) [Entitic vol]7.7 fLNormal6.3-10.7The [facility] Physician GroupComment on above:Performed By: #### CBC ####[address] [address] USAPlatelets (Bld) [#/Vol]263 10*3/eKKpwuqa773-891Qex [facility] Physician GroupComment on above:Performed By: #### CBC ####[address] [address] USARBC (Bld) [#/Vol]3.26 10*6/uLLow3.60-5.00The [facility] Physician GroupComment on above:Performed By: #### CBC ####[address] [address] USAWBC (Bld) [#/Vol]4.7 10*3/uLNormal3.8-11.6The [facility] Physician GroupComment on above:Performed By: #### CBC ####[address] [address] USAComprehensive Metabolic Panelon 90-65-8058Rjpexnk [Mass/Vol]4.4 g/dLNormal3.5-5.7The Former[facility] Physician GroupComment on above:Performed By: #### CMP ####[place] [id number] USAAlbumin/Globulin [Mass ratio] 1.6 {ratio}NormalThe Formerly [facility] Physician GroupComment on above:Performed By: #### CMP ####[place] [id number] USAALP [Catalytic activity/Vol]61 U/RHjxomw86-089Gom [facility] Comment on above:Performed By: #### CMP ####[place] [id number] USAALT [Catalytic activity/Vol]13 U/LNormal7-52 The [facility] Physician GroupComment on above:Performed By: #### CMP ####[address] [address] USAAnion gap [Moles/Vol]10.4 mmol/LNormal6.0-15.0The [facility] Physician GroupComment on above:Performed By: #### CMP ####[place] [id number] USAAST [Catalytic activity/Vol]22 U/DWapdpj40-81Jjy [facility] Physician GroupComment on above:Performed By: #### CMP ####[address] [address] USABilirubin [Mass/Vol] 0.4 mg/dLNormal0.3-1.0The Former[facility] Physician GroupComment on above:Performed By: #### CMP ####[place] [id number] USACalcium [Mass/Vol]9.8 mg/dLNormal8.6-10.3The [facility] Comment on above:Performed By: #### CMP ####[place] [address] [place] [address] USAChloride [Moles/Vol]101 mmol/JLuebeu24-676Vqs [facility] Physician GroupComment on above:Performed By: #### CMP ####[address] [address] USACO2 [Moles/Vol]29.5 mmol/LMiclhk68.0-31.0The [facility] Physician GroupComment on above:Performed By: #### CMP ####[address] [address] USACreatinine [Mass/Vol]1.12 mg/dLNormal0.60-1.20The [facility] Comment on above:Performed By: #### CMP ####[address] [address] USACreatinine Clr Calc Faugeubk55.81NormSanta Rosa Medical Center Physician GroupComment on above:Result Comment: PERFORMED BY:[address] [place], [place] [phone] MEDICAL DIRECTORALTHEA MEADOWS M.D.Performed By: #### CMP ####[address] [address] USAEstimated GFR55.254 mL/MinNoFormerly [facility] Physician [facility] SystemComment on above:Performed By: #### CMP ####[address] [address] [place] Globulin (S) [Mass/Vol]2.7 g/dLNormSanta Rosa Medical Center Physician GroupComment on above:Performed By: #### CMP ####[address] [address] USAGlucose [Mass/Vol]109 mg/tIUqgz19-203Txp [facility] Physician GroupComment on above:Result Comment: Random Glucose Reference Range is dependent on time and content of last meal. Glucose of more than 200 mg/dL in a nonstressed, ambulatory subject supports the diagnosis of Diabetes Mellitus. ADA recommended reference rangePerformed By: #### CMP ####[facility] [place] [address] USAPotassium [Moles/Vol]3.9 mmol/LNormal3.5-5.1The Former[facility] Physician GroupComment on above:Performed By: #### CMP ####[facility] [place] [address] USAProtein [Mass/Vol]7.1 g/dLNormal6.4-8.9The [facility] Physician GroupComment on above:Performed By: #### CMP ####[place] [address] [place] [address] USASodium [Moles/Vol]137 mmol/MPygzuv015-861Vjl [facility] Physician GroupComment on above:Performed By: #### CMP ####[place] [address] [place] [address] USAUrea nitrogen [Mass/Vol]27 mg/dLHigh7-25The [facility] Physician GroupComment on above: Performed By: #### CMP ####[address] [address] USACreatinine [Mass/volume] in Serum or PlasmaOrdered By: Kush Glez on 54-17-0139Qcehodfihp [Mass/Vol]Creatinine [Mass/volume] in Serum or Plasma0.60-1.20[facility] AvonEosinophils Auto (Bld) [#/Vol]Ordered By: Kush Glez on 50-86-6470Tqeudojrves (Bld) [#/Vol] Automated eosinophil count0.0-0.45[facility] [place] Eosinophils/100 WBC Auto (Bld)Ordered By: Kush Glez on 12-17-2024 Eosinophils/100 WBC (Bld)Automated eosinophil %.[facility], AvonErythrocyte distribution width Auto (RBC) [Ratio]Ordered By: Kush Hooker on 01-88-9597Ocipssvdjdg distribution width (RBC) [Ratio]Erythrocyte distribution width [Ratio] by Automated lmqfoTfgq58.9-15.3FCincinnati Children's Hospital Medical CenterGlobulin Calc (S) [Mass/Vol]Ordered By: Kush Glez on 06-94-2367Vpipubug (S) [Mass/Vol]Serum globulin measurement by calculation (mass/volume)[facility], AvonGlucose [Mass/volume] in Serum or PlasmaOrdered By: Kush Glez on 87-67-4264Sndkagj [Mass/Vol]Glucose [Mass/volume] in Serum or FykmflUtwo78-494OejplminbSelect Medical [facility] [place] Comment on above:ADA recommended reference rangeRandom Glucose Reference Range is dependent on time and content of last meal. Glucose of more than 200 mg/dL in a nonstressed, ambulatory subject supports the diagnosisof Diabetes Mellitus. Hematocrit Auto (Bld) [Volume fraction]Ordered By: Kush Glez on 12-17-2024 Hematocrit (Bld) [Volume fraction]Hematocrit [Volume Fraction] of Blood by Automated djlfmLgg33.0-46.4FCincinnati Children's Hospital Medical CenterHemoglobin [Mass/volume] in BloodOrdered By: Kush Glez on 76-04-5334Bueqengapx (Bld) [Mass/Vol]Hemoglobin [Mass/volume] in VzxrxZul23.8-15.4FCincinnati Children's Hospital Medical CenterLeukocytes [#/volume] corrected for nucleated erythrocytes in Blood by Automated counOrdered By: Kush Glez on 37-53-2226LUF corrected for nucl RBC Auto (Bld) [#/Vol]Leukocytes [#/volume] corrected for nucleated erythrocytes in Blood by Automated coun3.8-11.6FCincinnati Children's Hospital Medical Center Lymphocytes Auto (Bld) [#/Vol]Ordered By: Kush Glez on 12-17-2024 Lymphocytes (Bld) [#/Vol]Lymphocytes [#/volume] in Blood by Automated count 1.00-4.8[facility], AvonLymphocytes/100 WBC Auto (Bld)Ordered By: Kush Glez on 02-57-6198Pgzoaktvaat/100 WBC (Bld)Lymphocytes/100 leukocytes in Blood by Automated count.[facility], AvonMCH Auto (RBC) [Entitic mass]Ordered By: Kush Glez on 64-11-2707GRX (RBC) [Entitic mass]MCH [Entitic mass] by Automated flgyzCpyf37.7-34.3FCincinnati Children's Hospital Medical CenterMCHC Auto (RBC) [Mass/Vol]Ordered By: Kush Glez on 12-17-2024 MCHC (RBC) [Mass/Vol]MCHC [Mass/volume] by Automated count32.0-35.0[facility] AvonMCV Auto (RBC) [Entitic vol]Ordered By: Kush Glez on 60-60-2527YCV (RBC) [Entitic vol]MCV [Entitic volume] by Automated countHigh 80-100[facility], AvonMonocytes Auto (Bld) [#/Vol]Ordered By: Kush Glez on 46-36-2053Zfdmoaire (Bld) [#/Vol]Automated blood monocyte count0.0-0.8[facility] AvonMonocytes/100 WBC Auto (Bld)Ordered By: Kush Glez on 67-57-8493Ptxardooi/100 WBC (Bld)Automated monocyte %. [facility], AvonNeutrophils Auto (Bld) [#/Vol]Ordered By: Kush Glez on 21-89-4742Umdqvqspoud (Bld) [#/Vol]Neutrophils [#/volume] in Blood by Automated count1.8-7.7FCincinnati Children's Hospital Medical CenterNeutrophils/100 WBC Auto (Bld)Ordered By: Kush Glez on 93-39-8600Qzcexzorvpu/100 WBC (Bld) Automated neutrophil %.[facility] AvonNo Panel Information Ordered By: Kush Glez on 06-64-3944Xfnqxjetq GFR (CKD-EPI)55.254 mL/Min [facility] AvonPharmacy Creatinine Clearance (Chem47.81 [facility], AvonNucleated erythrocytes [Presence] in Blood by Automated countOrdered By: Kush Glez on 19-90-6189Uiwxkdtqa RBC Auto Ql (Bld)Nucleated erythrocytes [Presence] in Blood by Automated count0-0.5FCincinnati Children's Hospital Medical CenterPlatelet mean volume Auto (Bld) [Entitic vol]Ordered By: Kush Glez on 57-03-7708Qzmtpabl mean volume (Bld) [Entitic vol]Platelet mean volume [Entitic volume] in Blood by Automated count6.3-10.7FCincinnati Children's Hospital Medical CenterPlatelets Auto (Bld) [#/Vol]Ordered By: Kush Glez on 29-68-1794Oevzmqcks (Bld) [#/Vol]Platelets [#/volume] in Blood by Automated -089QcaojtdvbSelect Medical [facility], AvonPotassium [Moles/volume] in Serum or PlasmaOrdered By: Kush Glez on 97-46-1170Xjfwkfgjj [Moles/Vol]Potassium [Moles/volume] in Serum or Plasma3.5-5.1FCincinnati Children's Hospital Medical CenterProtein [Mass/volume] in Serum or PlasmaOrdered By: Kush Glez on 31-36-7214Wrznyoi [Mass/Vol]Protein [Mass/volume] in Serum or Plasma6.4-8.9[facility], AvonRBC Auto (Bld) [#/Vol]Ordered By: Kush Glez on 85-99-5291CJD (Bld) [#/Vol]Erythrocytes [#/volume] in Blood by Automated countLow3.60-5.00 [facility]innatierum or plasma albumin/globulin mass ratio Ordered By: Kush Glez on 55-45-7095Vmduwtk/Globulin [Mass ratio]Serum or plasma albumin/globulin mass ratioSelect Medical Specialty Hospital - Cincinnatierum or plasma anion gap determinationOrdered By: Kush Glez on 97-90-5533Ztkhw gap [Moles/Vol]Serum or plasma anion gap determination6.0-15.0[facility]innatiodium [Moles/volume] in Serum or PlasmaOrdered By: Kush Glez on 86-48-6604Pxfbeg [Moles/Vol]Sodium [Moles/volume] in Serum or Xgmmcq433-718 [facility] AvonUrea nitrogen [Mass/volume] in Serum or Plasma Ordered By: Kush Glez on 85-42-3151Qzwz nitrogen [Mass/Vol]Urea nitrogen [Mass/volume] in Serum or PlasmaHigh7-25[facility] AvonWBC Auto (Bld) [#/Vol]Ordered By: Kush Glez on 19-31-8393CLK (Bld) [#/Vol] Leukocytes [#/volume] in Blood by Automated count3.8-11.6FWexner Medical Center Medicine Office/Clinic Noteon 11-51-5481Bkkeri Medicine Office/Clinic NoteFawesson [facility]/Clinic Note Chief Complaint Acute Visit *Swelling of feet Concerns about peripheral edema and blood pressure fluctuations. HPI Staff Pt presents today for acute visit. Concerns with BP & swelling of feet. Lt foot has been swollen for the past 3-4wks. Dr Barraza put on Cymbalta. Did help with pain. Oncologist put her on lasix last week while at chemo. Lasix, potassium Motrin were given yesterday to start taking daily. BP at chemo was 200/100. History of Present Illness The patient is a 64-year-old female presenting with concerns regarding peripheral edema and blood pressure variability. The edema in her feet has been noticeable since her recent hospital discharge after chemotherapy, with improvements upon foot elevation and compression stockings use. Concurrently, she experiences fluctuating blood pressure readings, believed to be exacerbated by nervousness rather than a medical complication. Historically, she has been treated with Lasix and potassium withoutany significant changes in her cardiac condition other than the present stable heart murmur. Her health maintenance activities, smoking status, and body mass index have remained optimal, and no further interventions have been mentioned or required in the current discussion. Review of Systems PHQ Score Initial Depression Screen Score: 0 SCORE Physical Exam Vitals & Measurements T: 36.8 ???C(Tympanic) HR: 72(Peripheral) RR: 18 BP: 118/74 SpO2: 98% HT: 165.5 cm HT: 65 in WT: 58.5 kg WT: 128.97 lb BMI: 21.36 General: alert, no acute distress ENMT: oral mucosa moist Cardiovascular: Regular rate and rhythm, normal peripheral perfusion, murmur present Respiratory: Lungs clear to auscultation, respirations non labored Extremities: 1+ edema, no deformity, no trauma Neurological: oriented x 4, level of consciousness appropriate for age, CN II- XII intact, motor strength equal & normal bilaterally, speech normal Abdomen: Soft, Non-tender, Non-distended, + Bowel sounds Assessment/Plan 1. Blood pressure instability (I99.8: Other disorder of circulatory system) Current blood pressure values are stable upon assessment, with variance possibly due to emotional factors. Stress reduction and environmental control strategies are advised. 2. Nonsmoker (Z78.9: Other specified health status) Reinforcement of her nonsmoking status is continual, aiming to support long-term health benefits. 3. Peripheral edema (R60.0: Localized edema) The patient is on Lasix and potassium, showing +1 edema in the feet. Elevated positioning and compression stockings are employed to manage symptoms. Monitoring edema in relation to chemotherapy is ongoing. Orders: Body Mass Index (BMI) documented 3008F Current tobacco non-user 1036F Depression Screening Negative 3352F Discharge medications reconciled with current medications in outpatient record 1111F Influenza immunization status assessed 1030F Medication list documented in medical record 1159F Most recent diastolic blood pressure <80 mm Hg 3078F Patient screen for fall risk: no falls in last year or 1 fall with no injury in last year 1101F Review of all meds by a prescribing practitioner or clinical pharmacist documented in EHR 1160F Systolic BP <130 mm Hg (Most Recent) 3074F 64-year-old female with a history of a stable heart murmur and a nonsmoking lifestyle. She presentswith peripheral edema and fluctuations in blood pressure that have been stable upon reevaluation. The edema showed an association with the recent chemotherapy treatment, and adjustments with Lasix and compression stockings have somewhat mitigated the symptoms. Her BP variability appears to reflect situational stress rather than a persistent cardiovascular issue. During our discussion, we reviewed the likely impact of chemotherapy on her recent development of peripheral edema, alongside the variations in her blood pressure readings chiefly due to apprehension. We considered the efficacy of Lasix complemented by potassium with an emphasis laid on non-pharmacological measures such as foot elevation and compression stockings. Risks and benefits of this conservative measure were mutually acknowledged. We also agreed on the importance of stress management inmaintaining consistent, normal blood pressure levels. I did articulate the absence of immediate concern regarding her chronic heart murmur, which remains consistent in presentation. For all noted cond itions, consensus aligned on non-invasive monitoring and lifestyle reinforcement, setting a schedule for reassessment if symptoms evolve. There was no need for additional diagnostics or procedural interventions at the time of this visit, aside from continuing the current management trajectory. Follow-up No qualifying data available Problem List/Past Medical History Ongoing Abnormal EKG ADHD Anxiety BMI 21.0-21.9, adult Breast cancer of lower-inner quadrant of left female breast Complex regional pain (more content not included)...[facility] CenterComment on above:Result Comment: Electronically Signed By: Kishan PRATT, Michael Foley\Date and Time Signed: 12/12/24 14:26 EDTAlanine aminotransferase [Enzymatic activity/volume] in Serum or PlasmaOrdered By: Kush Glez on 65-44-7536PZQ [Catalytic activity/Vol]Alanine aminotransferase [Enzymatic activity/volume] in Serum or Plasma7-52[facility], AvonAlbumin [Mass/volume] in Serum or Plasma by Bromocresol green (BCG) dye binding metho Ordered By: Kush Glez on 70-19-3949Kyiizsa BCG dye [Mass/Vol]Albumin [Mass/volume] in Serum or Plasma by Bromocresol green (BCG) dye binding metho 3.5-5.7FCincinnati Children's Hospital Medical CenterAlkaline phosphatase [Enzymatic activity/volume] in Serum or PlasmaOrdered By: Kush Glez on 17-57-9413JCK [Catalytic activity/Vol]Alkaline phosphatase [Enzymatic activity/volume] in Serum or Lwuesv20-282EgzlollebSelect Medical [facility], AvonAspartate aminotransferase [Enzymatic activity/volume] in Serum or PlasmaOrdered By: Kush Glez on 91-01-6627ECR [Catalytic activity/Vol]Aspartate aminotransferase [Enzymatic activity/volume] in Serum or Aaitfn17-71HkxdctdyiSelect Medical [facility], [place]on Basophils Auto (Bld) [#/Vol]Ordered By: Kush Glez on 29-03-1761Zelxlhtef (Bld) [#/Vol]Automated basophil count0.0-0.2FCincinnati Children's Hospital Medical Center Basophils/100 WBC Auto (Bld)Ordered By: Kush Glez on 12-10-2024 Basophils/100 WBC (Bld)Automated basophil %.[facility] Bilirubin.total [Mass/volume] in Serum or PlasmaOrdered By: Kush Glez on 75-27-8341Gmvmowaqi [Mass/Vol]Bilirubin.total [Mass/volume] in Serum or Plasma 0.3-1.0[facility], AvonCalcium [Mass/volume] in Serum or Plasma Ordered By: Kush Glez on 83-04-6736Dscxqvw [Mass/Vol]Calcium [Mass/volume] in Serum or Plasma8.6-10.3FCincinnati Children's Hospital Medical CenterCarbon dioxide, total [Moles/volume] in Serum or PlasmaOrdered By: Kush Glez on 52-21-3110GZ0 [Moles/Vol]Carbon dioxide, total [Moles/volume] in Serum or Yhbzzu37.0-31.0 [facility], AvonChloride [Moles/volume] in Serum or Plasma Ordered By: Kush Glez on 52-14-3260Pcawbidq [Moles/Vol]Chloride [Moles/volume] in Serum or Wjdugx29-395EefyiaocpSelect Medical [facility] Clinic [facility], AvonComplete Blood Count Auto Diffon 16-49-3720Afcvdbqyw (Bld) [#/Vol]0.0 10*3/uLNormal 0.0-0.2The [facility] Physician GroupComment on above:Result Comment: PERFORMED BY:[address] [place], [place] [phone] MEDICAL DIRECTORALTHEA MEADOWS M.D.Performed By: #### CBC, URIC, CMP ####[address] [address] USABasophils/100 WBC (Bld)0.7 %Normal.The [facility] Hospital Physician GroupComment on above:Performed By: #### CBC, URIC, CMP ####[address] [address] USAEosinophils (Bld) [#/Vol]0.1 10*3/uL Normal0.0-0.45The Formerly [facility] Physician GroupComment on above:Performed By: #### CBC, URIC, CMP ####[address] [address] USAEosinophils/100 WBC (Bld)2.7 %Normal.[facility] Comment on above:Performed By: #### CBC, URIC, CMP ####[place] [address] USAErythrocyte distribution width (RBC) [Ratio]17.5 %High11.9-15.3The Former[facility] Physician GroupComment on above: Performed By: #### CBC, URIC, CMP ####[place] [address] USAHematocrit (Bld) [Volume fraction]31.2 %Low34.0-46.4 The [facility] Physician GroupComment on above:Performed By: #### CBC, URIC, CMP ####[place] [address] [place] Hemoglobin (Bld) [Mass/Vol]10.6 g/dLLow11.8-15.4The [facility] Comment on above:Performed By: #### CBC, URIC, CMP ####[place] [address] USALymphocytes (Bld) [#/Vol]1.9 10*3/uLNormal1.00-4.8The Former[facility] Physician GroupComment on above:Performed By: #### CBC, URIC, CMP ####[place] [address] USALymphocytes/100 WBC (Bld)45.6 %Normal.The [facility] Physician GroupComment on above:Performed By: #### CBC, URIC, CMP ####[place] [address] USAMCH (RBC) [Entitic mass]35.1 hhJden54.7-34.3The Formerly [facility] Physician GroupComment on above:Performed By: #### CBC, URIC, CMP ####[place] [address] USAMCV (RBC) [Entitic vol]103.0 aWIzge90-806Yra Former[facility] Physician GroupComment on above:Performed By: #### CBC, URIC, CMP ####[place] [address] USAMean Corpuscular HGB Conc34.1 g/jZFqxhas83.0-35.0The Formerly [facility] Physician GroupComment on above:Performed By: #### CBC, URIC, CMP ####[place] [address] USAMonocytes (Bld) [#/Vol]0.3 10*3/uL Normal0.0-0.8The Former[facility] Physician GroupComment on above:Performed By: #### CBC, URIC, CMP ####[place] [address] USAMonocytes/100 WBC (Bld)6.5 %Normal.The [facility] Physician GroupComment on above:Performed By: #### CBC, URIC, CMP ####[place] [address] USANeutrophils (Bld) [#/Vol]1.9 10*3/uL Normal1.8-7.7The Formerly [facility] Physician GroupComment on above:Performed By: #### CBC, URIC, CMP ####[place] [address] USANeutrophils/100 WBC (Bld)44.5 %Normal.[facility] Comment on above:Performed By: #### CBC, URIC, CMP ####[place] [address] USANRBC%0.1 /100{WBC}Normal0-0.5 The [facility] Physician GroupComment on above:Performed By: #### CBC, URIC, CMP ####[place] [address] [place] Platelet mean volume (Bld) [Entitic vol]7.8 fLNormal6.3-10.7The Former[facility] Physician GroupComment on above:Performed By: #### CBC, URIC, CMP ####[place] [address] USAPlatelets (Bld) [#/Vol]225 10*3/tMOnedza016-930Yeo [facility] Physician GroupComment on above: Performed By: #### CBC, URIC, CMP ####[address] [address] USARBC (Bld) [#/Vol]3.03 10*6/uLLow3.60-5.00The Former[facility] Physician GroupComment on above:Performed By: #### CBC, URIC, CMP ####[address] [address] USAWBC (Bld) [#/Vol]4.3 10*3/uLNormal3.8-11.6The Former[facility] Physician GroupComment on above:Performed By: #### CBC, URIC, CMP ####[place] [id number] USAComprehensive Metabolic Panelon 12-10-2024 Albumin [Mass/Vol]3.9 g/dLNormal3.5-5.7The [facility] Physician GroupComment on above:Performed By: #### CBC, URIC, CMP ####[place] [id number] USAAlbumin/Globulin [Mass ratio]1.4 {ratio}Normal The [facility] Physician GroupComment on above:Performed By: #### CBC, URIC, CMP ####[place] [id number] USAALP [Catalytic activity/Vol]57 U/FVtnrhh40-521Yph [facility] Physician [facility] SystemComment on above:Performed By: #### CBC, URIC, CMP ####[place] [id number] USAALT [Catalytic activity/Vol]12 U/L Normal7-52The Former[facility] Physician GroupComment on above:Performed By: #### CBC, URIC, CMP ####[place] [id number] USAAnion gap [Moles/Vol]10.2 mmol/LNormal6.0-15.0The [facility] Comment on above:Performed By: #### CBC, URIC, CMP ####[place] [id number] USAAST [Catalytic activity/Vol]20 U/EUsseji70-62Fex [facility]ician [facility] SystemComment on above:Performed By: #### CBC, URIC, CMP ####[address] [address] USABilirubin [Mass/Vol]0.3 mg/dLNormal0.3-1.0The [facility] Comment on above:Performed By: #### CBC, URIC, CMP ####[place] [id number] USACalcium [Mass/Vol]9.8 mg/dL Normal8.6-10.3The [facility] SystemComment on above:Performed By: #### CBC, URIC, CMP ####[place] [id number] USAChloride [Moles/Vol]103 mmol/QPsztai37-748Vuo [facility] Comment on above:Performed By: #### CBC, URIC, CMP ####[place] [id number] USACO2 [Moles/Vol]29.2 mmol/L Zfvgjs09.0-31.0The [facility] SystemComment on above:Performed By: #### CBC, URIC, CMP ####[place] [id number] USACreatinine [Mass/Vol]0.90 mg/dLNormal0.60-1.20The [facility]ician [facility] SystemComment on above:Performed By: #### CBC, URIC, CMP ####[place] [id number] USACreatinine Clr Calc Pharmacy 62.22NormalThEastern [facility] Physician [facility] SystemComment on above:Result Comment: PERFORMED BY:[address] [place], [place] [phone] MEDICAL DIRECTORALTHEA MEADOWS M.D. Performed By: #### CBC, URIC, CMP ####[address] [address] USAGFR/1.73 sq M.predicted MDRD (S/P/Bld) [Vol rate/Area]mL/min/{1.73_m2}NormalThe Formerly [facility] Physician GroupComment on above: Performed By: #### CBC, URIC, CMP ####[place] [address] USAGlobulin (S) [Mass/Vol]2.8 g/dLNormalThe [facility]ly [facility] Physician GroupComment on above:Performed By: #### CBC, URIC, CMP ####[place] [address] USAGlucose [Mass/Vol]100 mg/wNOyzxav95-968Vmq [facility] Physician GroupComment on above:Result Comment: Random Glucose Reference Range is dependent on time and content of last meal. Glucose of more than 200 mg/dL in a nonstressed, ambulatory subject supports the diagnosis of Diabetes Mellitus. ADA recommended reference rangePerformed By: #### CBC, URIC, CMP ####[place] [id number] USAPotassium [Moles/Vol]4.4 mmol/LNormal3.5-5.1The [facility] Physician GroupComment on above:Performed By: #### CBC, URIC, CMP ####[place] [id number] USAProtein [Mass/Vol]6.7 g/dL Normal6.4-8.9The [facility] Physician GroupComment on above:Performed By: #### CBC, URIC, CMP ####[place] [id number] USASodium [Moles/Vol]138 mmol/JLtdyty650-719Qdn [facility] Comment on above:Performed By: #### CBC, URIC, CMP ####[place] [id number] USAUrea nitrogen [Mass/Vol]16 mg/dLNormal7-25The [facility] Physician GroupComment on above:Performed By: #### CBC, URIC, CMP ####[place] [id number] USACreatinine [Mass/volume] in Serum or PlasmaOrdered By: Kush Glez on 58-72-8340Sinpihnduh [Mass/Vol]Creatinine [Mass/volume] in Serum or Plasma 0.60-1.20[facility], AvonEosinophils Auto (Bld) [#/Vol]Ordered By: Kush Glez on 92-73-6226Mrhodaxckdw (Bld) [#/Vol]Automated eosinophil count0.0-0.45[facility], AvonEosinophils/100 WBC Auto (Bld) Ordered By: Kush Glez on 42-88-1986Ycejfvfjugh/100 WBC (Bld)Automated eosinophil %.[facility], AvonErythrocyte distribution width Auto (RBC) [Ratio]Ordered By: Kush Glez on 79-11-8208Bhwohltubkd distribution width (RBC) [Ratio]Erythrocyte distribution width [Ratio] by Automated avhfbCduy93.9-15.3FCincinnati Children's Hospital Medical CenterGlobulin Calc (S) [Mass/Vol]Ordered By: Kush Glez on 73-30-1915Dwnmmdvu (S) [Mass/Vol]Serum globulin measurement by calculation (mass/volume)[facility], AvonGlucose [Mass/volume] in Serum or PlasmaOrdered By: Kush Glez on 70-51-9695Dabjnpf [Mass/Vol]Glucose [Mass/volume] in Serum or Jnnwnc43-139 [facility], AvonComment on above:ADA recommended reference rangeRandom Glucose Reference Range is dependent on time and content of last meal. Glucose of more than 200 mg/dL in a nonstressed, ambulatory subject supports the diagnosisof Diabetes Mellitus.Hematocrit Auto (Bld) [Volume fraction]Ordered By: Kush Glez on 46-07-9428Ujktplwstm (Bld) [Volume fraction]Hematocrit [Volume Fraction] of Blood by Automated qscvbXtb26.0-46.4 [facility], AvonHemoglobin [Mass/volume] in BloodOrdered By: Kush Glez on 94-34-8791Gndalykxkl (Bld) [Mass/Vol]Hemoglobin [Mass/volume] in WmhzoDdy84.8-15.4FCincinnati Children's Hospital Medical CenterLeukocytes [#/volume] corrected for nucleated erythrocytes in Blood by Automated counOrdered By: Kush Glez on 85-13-6159NWY corrected for nucl RBC Auto (Bld) [#/Vol]Leukocytes [#/volume] corrected for nucleated erythrocytes in Blood by Automated coun 3.8-11.6FCincinnati Children's Hospital Medical CenterLymphocytes Auto (Bld) [#/Vol]Ordered By: Kush Glez on 49-61-9249Lkvkjnvhueh (Bld) [#/Vol]Lymphocytes [#/volume] in Blood by Automated count1.00-4.8[facility] Lymphocytes/100 WBC Auto (Bld)Ordered By: tara Glez on 12-10-2024 Lymphocytes/100 WBC (Bld)Lymphocytes/100 leukocytes in Blood by Automated count. [facility], AvonMCH Auto (RBC) [Entitic mass]Ordered By: Kush Glez on 60-64-8315DTB (RBC) [Entitic mass]MCH [Entitic mass] by Automated aukjcFrvt55.7-34.3FCincinnati Children's Hospital Medical CenterMCHC Auto (RBC) [Mass/Vol] Ordered By: tara Glez on 07-70-4928KWQL (RBC) [Mass/Vol]MCHC [Mass/volume] by Automated count32.0-35.0[facility], AvonMCV Auto (RBC) [Entitic vol]Ordered By: Kush Glez on 69-78-4576ODS (RBC) [Entitic vol]MCV [Entitic volume] by Automated knizuZuln82-710UholhovdoSelect Medical [facility] Clinic [facility], [place] Monocytes Auto (Bld) [#/Vol]Ordered By: tara Glez on 03-53-9157Gnrwtwkua (Bld) [#/Vol]Automated blood monocyte count0.0-0.8[facility], AvonMonocytes/100 WBC Auto (Bld)Ordered By: tara Glez on 12-10-2024 Monocytes/100 WBC (Bld)Automated monocyte %.[facility] Neutrophils Auto (Bld) [#/Vol]Ordered By: Kush Glez on 12-10-2024 Neutrophils (Bld) [#/Vol]Neutrophils [#/volume] in Blood by Automated count 1.8-7.7FCincinnati Children's Hospital Medical CenterNeutrophils/100 WBC Auto (Bld)Ordered By: Kush Glez on 85-82-7024Ewcyhrlazha/100 WBC (Bld)Automated neutrophil %. [facility], AvonNo Panel InformationOrdered By: Kush Glez on 88-49-7765Kccqrlquu GFR (CKD-EPI)> 60.0 mL/MinSelect Medical Cleveland Clinic Rehabilitation Hospital, AvonPharmacy Creatinine Clearance (Chem62.22[facility] Nucleated erythrocytes [Presence] in Blood by Automated countOrdered By: Kush Hooker on 03-60-6669Ufzbrmhjo RBC Auto Ql (Bld)Nucleated erythrocytes [Presence] in Blood by Automated count0-0.5FCincinnati Children's Hospital Medical Center Platelet mean volume Auto (Bld) [Entitic vol]Ordered By: Kush Glez on 64-70-5355Llvwfagu mean volume (Bld) [Entitic vol]Platelet mean volume [Entitic volume] in Blood by Automated count6.3-10.7FCincinnati Children's Hospital Medical Center Platelets Auto (Bld) [#/Vol]Ordered By: Kush Glez on 41-19-5497Fycenahlo (Bld) [#/Vol]Platelets [#/volume] in Blood by Automated fieut255-644WckjqnztjSelect Medical Cleveland Clinic Rehabilitation Hospital, AvonPotassium [Moles/volume] in Serum or PlasmaOrdered By: Kush Glez on 04-47-5719Kspenoqat [Moles/Vol]Potassium [Moles/volume] in Serum or Plasma3.5-5.1FCincinnati Children's Hospital Medical CenterProtein [Mass/volume] in Serum or PlasmaOrdered By: Kush Glez on 22-53-1301Qvvclzk [Mass/Vol]Protein [Mass/volume] in Serum or Plasma6.4-8.9[facility], AvonRBC Auto (Bld) [#/Vol]Ordered By: Kush Glez on 55-51-6400MCV (Bld) [#/Vol] Erythrocytes [#/volume] in Blood by Automated countLow3.60-5.00[facility] Cincinnatierum or plasma albumin/globulin mass ratioOrdered By: Kush Glez on 77-15-7189Gurwgjv/Globulin [Mass ratio]Serum or plasma albumin/globulin mass ratioSelect Medical Specialty Hospital - Cincinnatierum or plasma anion gap determinationOrdered By: Kush Glez on 98-38-7007Atwzh gap [Moles/Vol]Serum or plasma anion gap determination6.0-15.0[facility] Cincinnatiodium [Moles/volume] in Serum or PlasmaOrdered By: tara Glez on 69-86-7357Tssuyg [Moles/Vol]Sodium [Moles/volume] in Serum or Qtlgqr003-777 [facility], AvonUrate [Mass/volume] in Serum or PlasmaOrdered By: tara Glez on 57-10-3377Umfon [Mass/Vol]Urate [Mass/volume] in Serum or Plasma2.3-6.6FCincinnati Children's Hospital Medical CenterUrate [Mass/Vol]4.8 mg/dLNormal 2.3-6.6FCincinnati Children's Hospital Medical CenterComment on above:Result Comment: PERFORMED BY:[facility] [place] [address] [place], [place] [phone] MEDICAL DIRECTORALTHEA MEADOWS M.D. Performed By: #### CBC, URIC, CMP ####[facility] [place] [address] USAUrea nitrogen [Mass/volume] in Serum or Plasma Ordered By: Kush Glez on 51-19-4227Nqlf nitrogen [Mass/Vol]Urea nitrogen [Mass/volume] in Serum or Plasma7-25[facility], AvonWBC Auto (Bld) [#/Vol]Ordered By: Kush Glez on 90-32-0719VTF (Bld) [#/Vol]Leukocytes [#/volume] in Blood by Automated count3.8-11.6FCincinnati Children's Hospital Medical Center Complete Blood Count Auto Diffon 75-29-4591Mwblaqkjd (Bld) [#/Vol]0.0 10*3/uL Normal0.0-0.2The [facility] Hospital Physician GroupComment on above:Result Comment: PERFORMED BY:[address] [place], [place] [phone] MEDICAL DIRECTORALTHEA MEADOWS M.D. Performed By: #### CBC ####[place] [id number] USABasophils/100 WBC (Bld)0.8 %Normal.The [facility] Physician GroupComment on above:Performed By: #### CBC ####[place] [address] USAEosinophils (Bld) [#/Vol]0.1 10*3/uLNormal0.0-0.45The [facility] Physician GroupComment on above:Performed By: #### CBC ####[place] [address] USAEosinophils/100 WBC (Bld)3.2 %Normal.The [facility] Physician GroupComment on above:Performed By: #### CBC ####[place] [id number] USAErythrocyte distribution width (RBC) [Ratio]17.9 % High11.9-15.3The [facility] Physician GroupComment on above:Performed By: #### CBC ####[place] [address] [place] Hematocrit (Bld) [Volume fraction]27.7 %Low34.0-46.4The [facility] Physician GroupComment on above:Performed By: #### CBC ####[place] [id number] USAHemoglobin (Bld) [Mass/Vol]9.5 g/dLLow 11.8-15.4The [facility] Physician GroupComment on above:Performed By: #### CBC ####[place] [address] [place] Lymphocytes (Bld) [#/Vol]1.7 10*3/uLNormal1.00-4.8The [facility] Comment on above:Performed By: #### CBC ####[address] [place] [address] USALymphocytes/100 WBC (Bld)38.4 %Normal.The [facility] Hospital Physician GroupComment on above:Performed By: #### CBC ####[address] (RBC) [Entitic mass]35.0 pmLvvt56.7-34.3The Formerly [facility] Hospital Physician GroupComment on above:Performed By: #### CBC ####[address] (RBC) [Entitic vol]102.4 vTZtws29-946Qnt [facility] Comment on above:Performed By: #### CBC ####[place] [address] USAMean Corpuscular HGB Conc34.2 g/dLNormal 32.0-35.0The [facility]ly [facility] Physician GroupComment on above:Performed By: #### CBC ####[place] [address] [place] Monocytes (Bld) [#/Vol]0.4 10*3/uLNormal0.0-0.8The [facility] Comment on above:Performed By: #### CBC ####[place] [address] USAMonocytes/100 WBC (Bld)7.8 %Normal.The [facility] Physician GroupComment on above:Performed By: #### CBC ####[place] [address] USANeutrophils (Bld) [#/Vol]2.3 10*3/uLNormal1.8-7.7The Formerly [facility] Physician GroupComment on above: Performed By: #### CBC ####[place] [address] USANeutrophils/100 WBC (Bld)49.8 %Normal.The [facility] Physician GroupComment on above:Performed By: #### CBC ####[place] [address] USANRBC%0.1 /100{WBC}Normal0-0.5 The [facility] Physician GroupComment on above:Performed By: #### CBC ####[place] [address] [place] Platelet mean volume (Bld) [Entitic vol]7.6 fLNormal6.3-10.7The Formerly [facility] Physician GroupComment on above:Performed By: #### CBC ####[place] [address] USAPlatelets (Bld) [#/Vol]207 10*3/mKHorxdd743-619Cdl [facility] Physician GroupComment on above:Performed By: #### CBC ####[place] [address] USARBC (Bld) [#/Vol]2.71 10*6/uLLow3.60-5.00The Former[facility] Physician GroupComment on above:Performed By: #### CBC ####[place] [address] USAWBC (Bld) [#/Vol]4.5 10*3/uLNormal3.8-11.6The Formerly [facility] Physician GroupComment on above:Performed By: #### CBC ####[place] [address] USAAlanine aminotransferase [Enzymatic activity/volume] in Serum or PlasmaOrdered By: Kush Glez on 20-80-5025SRX [Catalytic activity/Vol]Alanine aminotransferase [Enzymatic activity/volume] in Serum or Plasma7-52[facility], AvonAlbumin [Mass/volume] in Serum or Plasma by Bromocresol green (BCG) dye binding methoOrdered By: Kush Glez on 75-85-1121Zwtknzj BCG dye [Mass/Vol] Albumin [Mass/volume] in Serum or Plasma by Bromocresol green (BCG) dye binding metho3.5-5.7FCincinnati Children's Hospital Medical CenterAlkaline phosphatase [Enzymatic activity/volume] in Serum or PlasmaOrdered By: Kush Glez on 08-89-0974RIO [Catalytic activity/Vol]Alkaline phosphatase [Enzymatic activity/volume] in Serum or Csngam50-366VhepbnpusSelect Medical Cleveland Clinic Rehabilitation Hospital, AvonAspartate aminotransferase [Enzymatic activity/volume] in Serum or PlasmaOrdered By: Kush Glez on 12-57-6829BIW [Catalytic activity/Vol]Aspartate aminotransferase [Enzymatic activity/volume] in Serum or Zcuwjb19-46QexcxkgwgSelect Medical [facility], [place] Basophils Auto (Bld) [#/Vol]Ordered By: tara Glez on 21-22-6075Gmcefpmyl (Bld) [#/Vol]Automated basophil count0.0-0.2FCincinnati Children's Hospital Medical Center Basophils/100 WBC Auto (Bld)Ordered By: tara Glez on 11-26-2024 Basophils/100 WBC (Bld)Automated basophil %.[facility] Bilirubin.total [Mass/volume] in Serum or PlasmaOrdered By: Kush Glez on 95-05-0664Rgckgscfl [Mass/Vol]Bilirubin.total [Mass/volume] in Serum or Plasma 0.3-1.0[facility], AvonCalcium [Mass/volume] in Serum or Plasma Ordered By: tara Glez on 54-89-8112Xkfmzhq [Mass/Vol]Calcium [Mass/volume] in Serum or Plasma8.6-10.3FCincinnati Children's Hospital Medical CenterCarbon dioxide, total [Moles/volume] in Serum or PlasmaOrdered By: Kush Glez on 67-90-0259QR3 [Moles/Vol]Carbon dioxide, total [Moles/volume] in Serum or Ojejoc72.0-31.0 [facility], AvonChloride [Moles/volume] in Serum or Plasma Ordered By: tara lGez on 45-75-9755Qffumslw [Moles/Vol]Chloride [Moles/volume] in Serum or Nagibl98-094QfgolmfuwSelect Medical Cleveland Clinic Rehabilitation Hospital, AvonComplete Blood Count Auto Diffon 26-68-3796Yytkmkazu (Bld) [#/Vol]0.0 10*3/uLNormal 0.0-0.2The Formerly [facility] Physician GroupComment on above:Result Comment: PERFORMED BY:[address] [address] [place], [place] [phone] MEDICAL DIRECTORALTHEA MEADOWS M.D.Performed By: #### CBC ####[place] [id number] [facility] Basophils/100 WBC (Bld)0.6 %Normal.The Formerly [facility] Physician GroupComment on above:Performed By: #### CBC ####[place] [address] USAEosinophils (Bld) [#/Vol]0.1 10*3/uLNormal0.0-0.45 The Formerly [facility] Physician GroupComment on above:Performed By: #### CBC ####[address] Eosinophils/100 WBC (Bld)2.3 %Normal.The Formerly [facility] Physician GroupComment on above:Performed By: #### CBC ####[address]Erythrocyte distribution width (RBC) [Ratio]18.0 % High11.9-15.3The Formerly [facility] Physician GroupComment on above:Performed By: #### CBC ####[address] Hematocrit (Bld) [Volume fraction]29.3 %Low34.0-46.4The Formerly [facility] Physician GroupComment on above:Performed By: #### CBC ####[place] [address] USAHemoglobin (Bld) [Mass/Vol]10.0 g/dL Low11.8-15.4The Formerly [facility] Physician GroupComment on above:Performed By: #### CBC ####[place] [address] [place] Lymphocytes (Bld) [#/Vol]1.7 10*3/uLNormal1.00-4.8The [facility] Comment on above:Performed By: #### CBC ####[place] [address] USALymphocytes/100 WBC (Bld)36.8 %Normal.The Formerly [facility] Physician GroupComment on above:Performed By: #### CBC ####[address] (RBC) [Entitic mass]34.9 xkJaad69.7-34.3The Formerly [facility] Physician GroupComment on above:Performed By: #### CBC ####[address]V (RBC) [Entitic vol]102.0 tJHvrv75-105Zyk [facility] Comment on above:Performed By: #### CBC ####[place] [address] USAMean Corpuscular HGB Conc34.2 g/dLNormal 32.0-35.0The Formerly [facility] Physician GroupComment on above:Performed By: #### CBC ####[address] Monocytes (Bld) [#/Vol]0.3 10*3/uLNormal0.0-0.8The [facility] Comment on above:Performed By: #### CBC ####[place] [address] USAMonocytes/100 WBC (Bld)6.6 %Normal.The Formerly [facility] Physician GroupComment on above:Performed By: #### CBC ####[place] [address] USANeutrophils (Bld) [#/Vol]2.5 10*3/uLNormal1.8-7.7The Formerly [facility] Physician GroupComment on above: Performed By: #### CBC ####[place] [address] USANeutrophils/100 WBC (Bld)53.7 %Normal.The Formerly [facility] Physician GroupComment on above:Performed By: #### CBC ####[place] [address] USANRBC%0.2 /100{WBC}Normal0-0.5 The Formerly [facility] Physician GroupComment on above:Performed By: #### CBC ####[place] [address] [place] Platelet mean volume (Bld) [Entitic vol]7.5 fLNormal6.3-10.7The Formerly [facility] Physician GroupComment on above:Performed By: #### CBC ####[place] [address] USAPlatelets (Bld) [#/Vol]246 10*3/pCXudytx883-800Ldi Formerly [facility] Physician GroupComment on above:Performed By: #### CBC ####[place] [address] USARBC (Bld) [#/Vol]2.87 10*6/uLLow3.60-5.00The Formerly [facility] Physician GroupComment on above:Performed By: #### CBC ####[place] [address] USAWBC (Bld) [#/Vol]4.6 10*3/uLNormal3.8-11.6The Formerly [facility] Physician GroupComment on above:Performed By: #### CBC ####[place] [address] USAComprehensive Metabolic Panelon 37-38-1678Nqkwhvy [Mass/Vol]4.0 g/dLNormal3.5-5.7The Formerly [facility] Physician GroupComment on above:Performed By: #### CMP ####[place] [address] USAAlbumin/Globulin [Mass ratio] 1.7 {ratio}NormalThe Formerly [facility] Physician GroupComment on above:Performed By: #### CMP ####[place] [address] USAALP [Catalytic activity/Vol]61 U/MKvvgpj31-855Eqv [facility] Comment on above:Performed By: #### CMP ####[place] [address] USAALT [Catalytic activity/Vol]17 U/LNormal7-52 The Formerly [facility] Physician GroupComment on above:Performed By: #### CMP ####[address] [address] USAAnion gap [Moles/Vol]9.6 mmol/LNormal6.0-15.0The Formerly [facility] Physician GroupComment on above:Performed By: #### CMP ####[address] [address] USAAST [Catalytic activity/Vol]21 U/NRwsiqz65-64Vyi Formerly [facility] Physician GroupComment on above:Performed By: #### CMP ####[address] [address] USABilirubin [Mass/Vol] 0.3 mg/dLNormal0.3-1.0The Formerly [facility] Physician GroupComment on above:Performed By: #### CMP ####[address] [address] USACalcium [Mass/Vol]8.9 mg/dLNormal8.6-10.3The [facility] Comment on above:Performed By: #### CMP ####[address] [address] USAChloride [Moles/Vol]100 mmol/GPiutba43-873Wnh Former[facility] Physician GroupComment on above:Performed By: #### CMP ####[address] [address] USACO2 [Moles/Vol]26.9 mmol/OOnnaaj24.0-31.0The Formerly [facility] Physician GroupComment on above:Performed By: #### CMP ####[address] [address] USACreatinine [Mass/Vol]0.90 mg/dLNormal0.60-1.20The [facility] Comment on above:Performed By: #### CMP ####[address] [address] USACreatinine Clr Calc Ylkpwwla01.83NormalThe Formerly [facility] Physician GroupComment on above:Result Comment: PERFORMED BY:[address] [place], [place] [phone] MEDICAL DIRECTORALTHEA MEADOWS M.D.Performed By: #### CMP ####[address] [address] USAGFR/1.73 sq M.predicted MDRD (S/P/Bld) [Vol rate/Area]mL/min/{1.73_m2}NormalThe Formerly [facility] Physician GroupComment on above:Performed By: #### CMP ####[address] [address] USAGlobulin (S) [Mass/Vol]2.4 g/dLNormalThe Formerly [facility] Physician GroupComment on above:Performed By: #### CMP ####[address] [address] USAGlucose [Mass/Vol]108 mg/jBEeul95-671Fml Formerly [facility] Physician GroupComment on above: Result Comment: Random Glucose Reference Range is dependent on time and content of last meal. Glucose of more than 200 mg/dL in a nonstressed, ambulatory subject supports the diagnosis of Diabetes Mellitus. ADA recommended reference rangePerformed By: #### CMP ####[address] [address] USAPotassium [Moles/Vol]3.5 mmol/LNormal3.5-5.1The Formerly [facility] Physician GroupComment on above:Performed By: #### CMP ####[address] [address] USAProtein [Mass/Vol]6.4 g/dLNormal6.4-8.9The Formerly [facility] Physician GroupComment on above:Performed By: #### CMP ####[place] [id number] USASodium [Moles/Vol]133 mmol/SVla025-313Lhy Former[facility] Physician GroupComment on above:Performed By: #### CMP ####[place] [id number] USAUrea nitrogen [Mass/Vol]18 mg/dLNormal7-25The Formerly [facility] Physician GroupComment on above:Performed By: #### CMP ####[facility] [address] [place] [address] USACreatinine [Mass/volume] in Serum or PlasmaOrdered By: Kush Glez on 11-26-2024 Creatinine [Mass/Vol]Creatinine [Mass/volume] in Serum or Plasma0.60-1.20 [facility], AvonEosinophils Auto (Bld) [#/Vol]Ordered By: tara Glez on 64-27-4803Ifftjtdesjc (Bld) [#/Vol]Automated eosinophil count 0.0-0.45[facility], AvonEosinophils/100 WBC Auto (Bld)Ordered By: tara Glez on 39-66-7730Tkievhwlwgy/100 WBC (Bld)Automated eosinophil %. [facility], AvonErythrocyte distribution width Auto (RBC) [Ratio]Ordered By: tara Glez on 70-52-5448Dyqpmawlhee distribution width (RBC) [Ratio]Erythrocyte distribution width [Ratio] by Automated countHigh 11.9-15.3FCincinnati Children's Hospital Medical CenterGlobulin Calc (S) [Mass/Vol]Ordered By: tara Glez on 55-42-0739Ghiaqiiq (S) [Mass/Vol]Serum globulin measurement by calculation (mass/volume)[facility], AvonGlucose [Mass/volume] in Serum or PlasmaOrdered By: tara Glez on 49-72-2943Wujkimi [Mass/Vol]Glucose [Mass/volume] in Serum or SauemgAomm56-084VaxmytfviSelect Medical Cleveland Clinic Rehabilitation Hospital, AvonComment on above:ADA recommended reference rangeRandom Glucose Reference Range is dependent on time and content of last meal. Glucose of more than 200 mg/dL in a nonstressed, ambulatory subject supports the diagnosisof Diabetes Mellitus.Hematocrit Auto (Bld) [Volume fraction]Ordered By: Kush Hooker on 20-39-0136Uhqaghhjba (Bld) [Volume fraction]Hematocrit [Volume Fraction] of Blood by Automated jdcgyArr96.0-46.4FCincinnati Children's Hospital Medical CenterHemoglobin [Mass/volume] in BloodOrdered By: Kush Glez on 11-26-2024 Hemoglobin (Bld) [Mass/Vol]Hemoglobin [Mass/volume] in NidfeXfm90.8-15.4 [facility], AvonLeukocytes [#/volume] corrected for nucleated erythrocytes in Blood by Automated counOrdered By: Kush Glez on 11-26-2024 WBC corrected for nucl RBC Auto (Bld) [#/Vol]Leukocytes [#/volume] corrected for nucleated erythrocytes in Blood by Automated coun3.8-11.6FCincinnati Children's Hospital Medical CenterLymphocytes Auto (Bld) [#/Vol]Ordered By: Kush Glez on 34-60-0828Icemscbweao (Bld) [#/Vol]Lymphocytes [#/volume] in Blood by Automated count1.00-4.8[facility], AvonLymphocytes/100 WBC Auto (Bld) Ordered By: Kush Glez on 29-87-9955Yrukjusyfok/100 WBC (Bld)Lymphocytes/100 leukocytes in Blood by Automated count.[facility], AvonMCH Auto (RBC) [Entitic mass]Ordered By: Kush Glez on 95-02-3848FIN (RBC) [Entitic mass]MCH [Entitic mass] by Automated ddydeIcat26.7-34.3FCincinnati Children's Hospital Medical CenterMCHC Auto (RBC) [Mass/Vol]Ordered By: Kush Glez on 80-72-3241SEAN (RBC) [Mass/Vol]MCHC [Mass/volume] by Automated count32.0-35.0 [facility], AvonMCV Auto (RBC) [Entitic vol]Ordered By: Kush Hooker on 48-85-1342SMB (RBC) [Entitic vol]MCV [Entitic volume] by Automated egnjvZjcp73-768VhnhrkicnSelect Medical Cleveland Clinic Rehabilitation Hospital, AvonMonocytes Auto (Bld) [#/Vol] Ordered By: Kush Glez on 80-96-8945Trvzbghpo (Bld) [#/Vol]Automated blood monocyte count0.0-0.8[facility], AvonMonocytes/100 WBC Auto (Bld)Ordered By: Kush Glez on 60-51-7134Rxsrwjnas/100 WBC (Bld)Automated monocyte %.[facility], AvonNeutrophils Auto (Bld) [#/Vol] Ordered By: Kush Glez on 10-55-4073Dbyfufruona (Bld) [#/Vol]Neutrophils [#/volume] in Blood by Automated count1.8-7.7FCincinnati Children's Hospital Medical Center Neutrophils/100 WBC Auto (Bld)Ordered By: Kush Glez on 11-26-2024 Neutrophils/100 WBC (Bld)Automated neutrophil %.[facility], AvonNo Panel InformationOrdered By: Kush Glez on 03-04-1424Ailjaroty GFR (CKD-EPI)> 60.0 mL/MinSelect Medical Cleveland Clinic Rehabilitation Hospital, AvonPharmacy Creatinine Clearance (Chem59.83[facility], AvonNucleated erythrocytes [Presence] in Blood by Automated countOrdered By: Kush Glez on 11-26-2024 Nucleated RBC Auto Ql (Bld)Nucleated erythrocytes [Presence] in Blood by Automated count0-0.5FCincinnati Children's Hospital Medical CenterPlatelet mean volume Auto (Bld) [Entitic vol]Ordered By: Kush Glez on 98-49-8878Jekufncb mean volume (Bld) [Entitic vol]Platelet mean volume [Entitic volume] in Blood by Automated count6.3-10.7FCincinnati Children's Hospital Medical CenterPlatelets Auto (Bld) [#/Vol] Ordered By: Kush Glez on 27-33-0409Gxyufjeqk (Bld) [#/Vol]Platelets [#/volume] in Blood by Automated olobh824-868LnqglklosSelect Medical Cleveland Clinic Rehabilitation Hospital, Avon Potassium [Moles/volume] in Serum or PlasmaOrdered By: Kush Glez on 19-04-3811Dywxciiqs [Moles/Vol]Potassium [Moles/volume] in Serum or Plasma 3.5-5.1FCincinnati Children's Hospital Medical CenterProtein [Mass/volume] in Serum or Plasma Ordered By: Kush Glez on 03-20-1258Okuiift [Mass/Vol]Protein [Mass/volume] in Serum or Plasma6.4-8.9[facility], AvonRBC Auto (Bld) [#/Vol] Ordered By: Kush Glez on 02-29-2740OBK (Bld) [#/Vol]Erythrocytes [#/volume] in Blood by Automated countLow3.60-5.00[facility] Cincinnatierum or plasma albumin/globulin mass ratioOrdered By: tara Glez on 11-26-2024 Albumin/Globulin [Mass ratio]Serum or plasma albumin/globulin mass ratio [facility] Cincinnatierum or plasma anion gap determinationOrdered By: tara Glez on 76-11-7934Ttz[place] gap [Moles/Vol]Serum or plasma anion gap determination6.0-15.0[facility] Cincinnatiodium [Moles/volume] in Serum or PlasmaOrdered By: tara Glez on 59-25-1012Ijqkiw [Moles/Vol]Sodium [Moles/volume] in Serum or VzjwcyIgu614-088EyfrvgxguSelect Medical Cleveland Clinic Rehabilitation Hospital, AvonUrea nitrogen [Mass/volume] in Serum or PlasmaOrdered By: tara Glez on 08-15-1234Bfca nitrogen [Mass/Vol]Urea nitrogen [Mass/volume] in Serum or Plasma 7-25[facility], AvonWBC Auto (Bld) [#/Vol]Ordered By: tara Hooker on 37-97-5328VWT (Bld) [#/Vol]Leukocytes [#/volume] in Blood by Automated count3.8-11.6FCincinnati Children's Hospital Medical CenterComplete Blood Count Auto Diffon 43-67-3597Hiksdzpum (Bld) [#/Vol]0.0 10*3/uLNormal0.0-0.2The Formerly [facility] Physician GroupComment on above:Result Comment: PERFORMED BY:[facility] [place], [place] [phone] MEDICAL DIRECTORALTHEA MEADOWS M.D.Performed By: #### CBC ####[facility] [place] [address] USABasophils/100 WBC (Bld)0.7 %Normal.The Formerly [facility] Physician GroupComment on above:Performed By: #### CBC ####[address] [address] USAEosinophils (Bld) [#/Vol]0.1 10*3/uLNormal0.0-0.45The Formerly [facility] Physician GroupComment on above:Performed By: #### CBC ####[address] [address] USAEosinophils/100 WBC (Bld)1.7 %Normal. The Formerly [facility] Physician GroupComment on above:Performed By: #### CBC ####[address] [address] [place] Erythrocyte distribution width (RBC) [Ratio]18.5 %High11.9-15.3The Formerly [facility] Physician GroupComment on above:Performed By: #### CBC ####[place] [address] USAHematocrit (Bld) [Volume fraction]28.1 %Low34.0-46.4The Formerly [facility] Physician GroupComment on above: Performed By: #### CBC ####[address] [address] USAHemoglobin (Bld) [Mass/Vol]9.8 g/dLLow11.8-15.4The Formerly [facility] Physician GroupComment on above:Performed By: #### CBC ####[place] [id number] USALymphocytes (Bld) [#/Vol]1.9 10*3/uLNormal1.00-4.8The Formerly [facility] Physician GroupComment on above: Performed By: #### CBC ####[address] [address] USALymphocytes/100 WBC (Bld)42.5 %Normal.The Formerly [facility] Physician GroupComment on above:Performed By: #### CBC ####[address] [address] USAMCH (RBC) [Entitic mass]35.4 stLwbe26.7-34.3The Formerly [facility] Physician GroupComment on above:Performed By: #### CBC ####[place] [address] USAMCV (RBC) [Entitic vol]101.5 dFGzyj01-294Uxm [facility] Physician GroupComment on above:Performed By: #### CBC ####[place] [address] USAMean Corpuscular HGB Conc34.9 g/fESiysqd88.0-35.0The Formerly [facility] Physician GroupComment on above:Performed By: #### CBC ####[place] [address] USAMonocytes (Bld) [#/Vol]0.2 10*3/uLNormal0.0-0.8The Formerly [facility] Physician GroupComment on above: Performed By: #### CBC ####[place] [address] USAMonocytes/100 WBC (Bld)4.7 %Normal.The Formerly [facility] Physician GroupComment on above:Performed By: #### CBC ####[place] [address] USANeutrophils (Bld) [#/Vol]2.3 10*3/uLNormal1.8-7.7The Formerly [facility] Physician GroupComment on above:Performed By: #### CBC ####[place] [address] USANeutrophils/100 WBC (Bld)50.4 %Normal.The Formerly [facility] Physician GroupComment on above:Performed By: #### CBC ####[place] [address] USANRBC%0.1 /100{WBC}Normal0-0.5The Formerly [facility] Physician GroupComment on above:Performed By: #### CBC ####[place] [address] USAPlatelet mean volume (Bld) [Entitic vol]7.5 fLNormal6.3-10.7The Formerly [facility] Physician GroupComment on above:Performed By: #### CBC ####[address] [address] USAPlatelets (Bld) [#/Vol]268 10*3/bMCravee479-400Vtw [facility] Physician GroupComment on above:Performed By: #### CBC ####[place] [address] USARBC (Bld) [#/Vol]2.77 10*6/uLLow 3.60-5.00The Formerly [facility] Physician GroupComment on above:Performed By: #### CBC ####[place] [address] USAWBC (Bld) [#/Vol]4.5 10*3/uLNormal3.8-11.6The Formerly [facility] Physician GroupComment on above:Performed By: #### CBC ####[place] [address] USAComplete Blood Count Auto Diffon 27-86-0818Rywarvwcn (Bld) [#/Vol]0.0 10*3/uLNormal0.0-0.2The [facility] Physician [facility] Care SystemComment on above:Result Comment: PERFORMED BY:[address] [place], [place] [phone] MEDICAL DIRECTORALTHEA JIMENEZ M.D.Performed By: #### CBC, CMP ####[place] [phone] USABasophils/100 WBC (Bld)0.6 %Normal.The Formerly [facility] Physician GroupComment on above:Performed By: #### CBC, CMP ####[place] [address] [place] Eosinophils (Bld) [#/Vol]0.1 10*3/uLNormal0.0-0.45The [facility] Comment on above:Performed By: #### CBC, CMP ####[place] [address] USAEosinophils/100 WBC (Bld)2.2 %Normal. The Formerly [facility] Physician GroupComment on above:Performed By: #### CBC, CMP ####[address] Erythrocyte distribution width (RBC) [Ratio]19.4 %High11.9-15.3The Formerly [facility] Physician GroupComment on above:Performed By: #### CBC, CMP ####[place] [address] USAHematocrit (Bld) [Volume fraction]27.0 %Low34.0-46.4The Formerly [facility] Physician GroupComment on above:Performed By: #### CBC, CMP ####[place] [address] USAHemoglobin (Bld) [Mass/Vol]9.2 g/dLLow11.8-15.4The Formerly [facility] Physician GroupComment on above:Performed By: #### CBC, CMP ####[place] [address] [place] Lymphocytes (Bld) [#/Vol]1.7 10*3/uLNormal1.00-4.8The [facility] Comment on above:Performed By: #### CBC, CMP ####[place] [address] USALymphocytes/100 WBC (Bld)34.5 %Normal. The Formerly [facility] Physician GroupComment on above:Performed By: #### CBC, CMP ####[place] [address] USAMCH (RBC) [Entitic mass]35.0 gxNobr45.7-34.3The Formerly [facility] Physician GroupComment on above:Performed By: #### CBC, CMP ####[place] [address] USAMCV (RBC) [Entitic vol]103.1 yMXofm33-296Xqo [facility] Physician GroupComment on above:Performed By: #### CBC, CMP ####[address] [place] [address] USAMean Corpuscular HGB Conc34.0 g/yCMfaqae12.0-35.0The Formerly [facility] Physician GroupComment on above:Performed By: #### CBC, CMP ####[place] [address] USAMonocytes (Bld) [#/Vol]0.4 10*3/uLNormal 0.0-0.8The Formerly [facility] Physician GroupComment on above:Performed By: #### CBC, CMP ####[place] [address] [place] Monocytes/100 WBC (Bld)7.2 %Normal.The Former[facility] Physician GroupComment on above:Performed By: #### CBC, CMP ####[place] [address] USANeutrophils (Bld) [#/Vol]2.7 10*3/uLNormal1.8-7.7The Formerly [facility] Physician GroupComment on above:Performed By: #### CBC, CMP ####[place] [address] [place] Neutrophils/100 WBC (Bld)55.5 %Normal.The Formerly [facility] Physician GroupComment on above:Performed By: #### CBC, CMP ####[place] [address] USANRBC%0.2 /100{WBC}Normal0-0.5The Formerly [facility] Physician GroupComment on above:Performed By: #### CBC, CMP ####[place] [address] USAPlatelet mean volume (Bld) [Entitic vol]8.0 fLNormal6.3-10.7The Formerly [facility] Physician GroupComment on above: Performed By: #### CBC, CMP ####[place] [address] USAPlatelets (Bld) [#/Vol]200 10*3/aFBimbko576-632Uwp [facility] Physician GroupComment on above:Performed By: #### CBC, CMP ####[address] [address] USARBC (Bld) [#/Vol]2.62 10*6/uLLow3.60-5.00The Formerly [facility] Physician GroupComment on above:Performed By: #### CBC, CMP ####[address] [address] USAWBC (Bld) [#/Vol]4.9 10*3/uLNormal3.8-11.6The Formerly [facility] Physician GroupComment on above:Performed By: #### CBC, CMP ####[place] [id number] [facility] Comprehensive Metabolic Panelon 20-23-9950Xpqbbjs [Mass/Vol]3.9 g/dLNormal 3.5-5.7The Formerly [facility] Physician GroupComment on above:Performed By: #### CBC, CMP ####[address] Albumin/Globulin [Mass ratio]1.3 {ratio}NormalThe [facility] Comment on above:Performed By: #### CBC, CMP ####[place] [id number] USAALP [Catalytic activity/Vol]68 U/L Nyokza01-443Juq Formerly [facility] Physician GroupComment on above:Performed By: #### CBC, CMP ####[place] [id number] USAALT [Catalytic activity/Vol]13 U/LNormal7-52The [facility] Comment on above:Performed By: #### CBC, CMP ####[place] [id number] USAAnion gap [Moles/Vol]11.0 mmol/LNormal 6.0-15.0The Formerly [facility] Physician GroupComment on above:Performed By: #### CBC, CMP ####[place] [address] USAAST [Catalytic activity/Vol]22 U/ECoilfm16-91Tlk Formerly [facility] Physician GroupComment on above:Performed By: #### CBC, CMP ####[address] [address] USABilirubin [Mass/Vol]0.3 mg/dLNormal0.3-1.0The Formerly [facility] Physician GroupComment on above:Performed By: #### CBC, CMP ####[address] [address] USACalcium [Mass/Vol]9.4 mg/dLNormal8.6-10.3The Formerly [facility] Physician GroupComment on above: Performed By: #### CBC, CMP ####[address] [address] USAChloride [Moles/Vol]105 mmol/OIrxbbk22-954Fje Formerly [facility] Physician GroupComment on above:Performed By: #### CBC, CMP ####[address] [address] USACO2 [Moles/Vol]27.0 mmol/KHgwmhy72.0-31.0The Formerly [facility] Physician GroupComment on above:Performed By: #### CBC, CMP ####[address] [address] USACreatinine [Mass/Vol]0.93 mg/dLNormal0.60-1.20The Formerly [facility] Physician GroupComment on above:Performed By: #### CBC, CMP ####[address] [address] [place] Creatinine Clr Calc Vllrcxik05.21NormalThe Formerly [facility] Physician GroupComment on above:Result Comment: PERFORMED BY:[address] [address] [address]ESumi[place], [place] [phone] MEDICAL DIRECTORALTHEA JIMENEZ M.D.Performed By: #### CBC, CMP ####[address] [address] USAGFR/1.73 sq M.predicted MDRD (S/P/Bld) [Vol rate/Area]mL/min/{1.73_m2}NormalThe Formerly [facility] Physician GroupComment on above: Performed By: #### CBC, CMP ####[place] [address] USAGlobulin (S) [Mass/Vol]2.9 g/dLNormalThe Formerly [facility] Physician GroupComment on above:Performed By: #### CBC, CMP ####[place] [address] USAGlucose [Mass/Vol]110 mg/tTNaqf67-284Buc Formerly [facility] Physician GroupComment on above:Result Comment: Random Glucose Reference Range is dependent on time and content of last meal. Glucose of more than 200 mg/dL in a nonstressed, ambulatory subject supports the diagnosis of Diabetes Mellitus. ADA recommended reference rangePerformed By: #### CBC, CMP ####[place] [address] USAPotassium [Moles/Vol]4.0 mmol/LNormal3.5-5.1The Formerly [facility] Physician GroupComment on above:Performed By: #### CBC, CMP ####[place] [address] USAProtein [Mass/Vol]6.8 g/dLNormal 6.4-8.9The Formerly [facility] Physician GroupComment on above:Performed By: #### CBC, CMP ####[place] [address] USASodium [Moles/Vol]139 mmol/RYcyfng604-105Ywk Formerly [facility] Physician GroupComment on above:Performed By: #### CBC, CMP ####[place] [address] USAUrea nitrogen [Mass/Vol]18 mg/dLNormal7-25The Formerly [facility] Physician GroupComment on above:Performed By: #### CBC, CMP ####[place] [address] [place] Basophils Auto (Bld) [#/Vol]Ordered By: Kush Glez on 48-16-6813Soywqcwrq (Bld) [#/Vol]Automated basophil count0.0-0.2FCincinnati Children's Hospital [facility] Basophils/100 WBC Auto (Bld)Ordered By: Kush Glez on 11-04-2024 Basophils/100 WBC (Bld)Automated basophil %.[facility] AvonCT chest w conon 28-29-8688IU chest w conNormalThe [facility]ician [facility] Complete Blood Count Auto Diffon 42-21-0191Yubxwwhoo (Bld) [#/Vol]0.0 10*3/uL Normal0.0-0.2The [facility] SystemComment on above:Result Comment: PERFORMED BY:[address] [place], [place] [phone] MEDICAL DIRECTORALTHEA MEADOWS M.D. Performed By: #### CBC ####[place] [id number] USABasophils/100 WBC (Bld)0.4 %Normal.The Former[facility] Physician GroupComment on above:Performed By: #### CBC ####[place] [id number] USAEosinophils (Bld) [#/Vol]0.2 10*3/uLNormal0.0-0.45The [facility] SystemComment on above:Performed By: #### CBC ####[place] [id number] USAEosinophils/100 WBC (Bld)3.1 %Normal.The Former[facility] Physician GroupComment on above:Performed By: #### CBC ####[place] [id number] USAErythrocyte distribution width (RBC) [Ratio]19.7 % High11.9-15.3The Formerly [facility] Physician GroupComment on above:Performed By: #### CBC ####[place] [address] [place] Hematocrit (Bld) [Volume fraction]25.2 %Low34.0-46.4The Formerly [facility] Physician GroupComment on above:Performed By: #### CBC ####[place] [address] USAHemoglobin (Bld) [Mass/Vol]8.5 g/dLLow 11.8-15.4The Formerly [facility] Physician GroupComment on above:Performed By: #### CBC ####[place] [address] [place] Lymphocytes (Bld) [#/Vol]1.5 10*3/uLNormal1.00-4.8The [facility] Comment on above:Performed By: #### CBC ####[place] [address] USALymphocytes/100 WBC (Bld)29.8 %Normal.The Former[facility] Physician GroupComment on above:Performed By: #### CBC ####[address]MCH (RBC) [Entitic mass]34.0 aqBmndij26.7-34.3The Formerly [facility] Physician GroupComment on above: Performed By: #### CBC ####[address]MCV (RBC) [Entitic vol]101.4 sOPwme14-533Dwd Former[facility] Physician GroupComment on above:Performed By: #### CBC ####[place] [address] USAMean Corpuscular HGB Conc33.5 g/wZZmjoen34.0-35.0The [facility] SystemComment on above: Performed By: #### CBC ####[place] [address] USAMonocytes (Bld) [#/Vol]0.3 10*3/uLNormal0.0-0.8The Formerly [facility] Physician GroupComment on above:Performed By: #### CBC ####[place] [address] USAMonocytes/100 WBC (Bld)5.2 %Normal.The Former[facility] Physician GroupComment on above:Performed By: #### CBC ####[place] [address] USANeutrophils (Bld) [#/Vol]3.1 10*3/uLNormal1.8-7.7The Formerly [facility] Physician GroupComment on above:Performed By: #### CBC ####[place] [address] USANeutrophils/100 WBC (Bld)61.5 %Normal. The Former[facility] Physician GroupComment on above:Performed By: #### CBC ####[place] [address] USANRBC% 0.1 /100{WBC}Normal0-0.5The Formerly [facility] Physician GroupComment on above:Performed By: #### CBC ####[place] [address] USAPlatelet mean volume (Bld) [Entitic vol]8.3 fLNormal6.3-10.7The Formerly [facility] Physician GroupComment on above:Performed By: #### CBC ####[place] [address] USAPlatelets (Bld) [#/Vol]142 10*3/tXBip392-245Swy Formerly [facility] Physician GroupComment on above: Performed By: #### CBC ####[place] [address] USARBC (Bld) [#/Vol]2.49 10*6/uLLow3.60-5.00The Formerly [facility] Physician GroupComment on above:Performed By: #### CBC ####[place] [address] USAWBC (Bld) [#/Vol]5.0 10*3/uLNormal3.8-11.6The Formerly [facility] Physician GroupComment on above:Performed By: #### CBC ####[place] [address] USAEosinophils Auto (Bld) [#/Vol]Ordered By: Kush Glez on 11-04-2024 Eosinophils (Bld) [#/Vol]Automated eosinophil count0.0-0.45[facility], AvonEosinophils/100 WBC Auto (Bld)Ordered By: Kush Glez on 08-51-9425Pllhelehcsc/100 WBC (Bld)Automated eosinophil %.[facility], AvonErythrocyte distribution width Auto (RBC) [Ratio]Ordered By: Kush Glez on 10-10-4694Ovrguqgjwes distribution width (RBC) [Ratio]Erythrocyte distribution width [Ratio] by Automated rhsbxZovs41.9-15.3FWexner Medical Center Medicine Office/Clinic Noteon 33-09-6349Rhhnti Medicine Office/Clinic NoteFawesson [facility] hospital Medicine Office/Clinic Note Chief Complaint 2wk follow up HPI Staff 2wk follow up Still taking Augmentin Has started chemo back up Has been seen by oncology & infectious disease since last encounter. Does need refill of Xanax. History of Present Illness See staff HPI. Review of Systems PHQ Score Initial Depression Screen Score: 0 SCORE Physical Exam Vitals & Measurements T: 36.6 ???C(Tympanic) HR: 47(Peripheral) RR: 18 BP: 116/74 SpO2: 100% HT: 65 in HT: 165.5 cm WT: 60.8 kg WT: 134.041 lb BMI: 22.2 General: alert, no acute distress ENMT: oral mucosa moist, Cardiovascular: regular rate and rhythm, normal peripheral perfusion Respiratory: Lungs CTA, respirations non labored Extremities: no deformity, no trauma Neurological: oriented x 4, LOC appropriate for age, CN II-XII intact, motor strength equal & normal bilaterally, speech normal Abdomen: Soft, Nontender, Non-distended, + BS Assessment/Plan 1. Anxiety (F41.9: Anxiety disorder, unspecified) Will refill the ativan. Follow up PRN 2. Breast cancer of lower-inner quadrant of left female breast (C50.312: Malignant neoplasm of lower-inner quadrant of left female breast) Follow up with Oncology and CM to help with aids. 3. HTN (hypertension) (I10: Essential (primary) hypertension) At goal. NO issues. 4. Nonsmoker (Z78.9: Other specified health status) Please continue to not smoke Follow-up No qualifying data available Problem List/Past Medical History Ongoing Abnormal EKG ADHD Anxiety BMI 22.0-22.9, adult Breast cancer of lower-inner quadrant of left female breast Complex regional pain syndrome of lower limb Dysuria Essential tremor HTN (hypertension) Hx of osteoarthritis Idiopathic polyneuropathy Intradermal melanocytic nevus Neoplasm of uncertain behavior of skin of back Neoplasm of uncertain behavior of skin of face Nonsmoker Pancytopenia PNA (pneumonia) Poor venous access Pre-op exam Scoliosis Seasonal allergies UTI symptoms Historical BMI 23.0-23.9, adult Polyneuropathy RSD lower limb Procedure/Surgical History Insertion of implantable venous access port (07/22/2024), Mastectomy (05/16/2024), Excision of intradermal nevus (02/20/2024), Excision of breast mass (01/10/2024), Biopsy of breast (06/27/2023), Arthroscopy of knee (06/04/1995), Appendectomy, Breast reconstruction, Cholecystectomy, Extraction of wisdom tooth, Foot, Removal of breast implant, Simple dental extraction, DEAN BSO - Total abdominal hysterectomy and bilateral salpingo-oophorectomy, Tonsillectomy and adenoidectomy. Medications acetaminophen-oxycodone 325 mg-5 mg Tab alprazolam 0.25 mg Tab, See Instructions cyclobenzaprine 10 mg Tab, 10 mg= 1 tab(s), Oral, Bedtime, PRN, 3 refills duloxetine 30 mg oral delayed release capsule gabapentin 300 mg Cap, 300 mg= 1 cap(s), Oral, TID Handicap Placard, 5 years., See Instructions losartan 25 mg Tab, 25 mg= 1 tab(s), Oral, Daily Misc Medication, See Instructions Toprol XL 50 mg Tab-ER, 50 mg, Oral, Daily, 1 refills Allergies Entex (Unknown) Skelaxin (Unknown) corticosteroids (Anaphylaxis) Social History Alcohol - Medium Risk, 04/29/2024 Current. Wine, Liquor. 1-2 times per month., 08/06/2024 Substance Abuse Current. Marijuana. Daily. Previous treatment: None., 08/06/2024 Tobacco - Denies Tobacco Use, 04/29/2024 Former smoker, quit more than 30 days ago Tobacco Use:. Never Smokeless Tobacco Use:. Cigarettes, Household tobacco concerns: No. Yes, 10/22/2024 Family History Primary malignant neoplasm of lung: Mother. Immunizations Vaccine Date Status Comments influenza virus vaccine, inactivated - Not Given Patient Refuses influenza virus vaccine, inactivated - Not Given Patient Refuses influenza virus vaccine, inactivated - Not Given Patient Refuses SARS-CoV-2 mRNA (tozinameran 5y-11y) vac - Not Given Postpone due to refusal [facility] CenterComment on above:Result Comment: Electronically Signed By: Kishan PRATT, Michael Ball.br\Date and Time Signed: 11/04/24 13:05 EST Hematocrit Auto (Bld) [Volume fraction]Ordered By: Kush Glez on 11-04-2024 Hematocrit (Bld) [Volume fraction]Hematocrit [Volume Fraction] of Blood by Automated mxomtYsl87.0-46.4FCincinnati Children's Hospital Medical CenterHemoglobin [Mass/volume] in BloodOrdered By: Kush lGez on 95-45-8739Ozjupoveng (Bld) [Mass/Vol]Hemoglobin [Mass/volume] in DsjxqCyf10.8-15.4FCincinnati Children's Hospital Medical CenterLeukocytes [#/volume] corrected for nucleated erythrocytes in Blood by Automated counOrdered By: Kush Glez on 21-14-6205WXU corrected for nucl RBC Auto (Bld) [#/Vol]Leukocytes [#/volume] corrected for nucleated erythrocytes in Blood by Automated coun3.8-11.6FCincinnati Children's Hospital Medical Center Lymphocytes Auto (Bld) [#/Vol]Ordered By: Kush Glez on 11-04-2024 Lymphocytes (Bld) [#/Vol]Lymphocytes [#/volume] in Blood by Automated count 1.00-4.8[facility], AvonLymphocytes/100 WBC Auto (Bld)Ordered By: Kush Glez on 73-68-5044Vycpkxdwgzh/100 WBC (Bld)Lymphocytes/100 leukocytes in Blood by Automated count.[facility]H Auto (RBC) [Entitic mass]Ordered By: Kush Glez on 70-74-6895MML (RBC) [Entitic mass]MCH [Entitic mass] by Automated count24.7-34.3FCincinnati Children's Hospital Medical CenterMCHC Auto (RBC) [Mass/Vol]Ordered By: Kush Glez on 79-11-1205IXVN (RBC) [Mass/Vol]MCHC [Mass/volume] by Automated count32.0-35.0[facility], AvonMCV Auto (RBC) [Entitic vol]Ordered By: Kush Glez on 59-55-5158EQM (RBC) [Entitic vol]MCV [Entitic volume] by Automated countHigh 80-100[facility], AvonMonocytes Auto (Bld) [#/Vol]Ordered By: Kush Glez on 95-17-9003Kyosnklch (Bld) [#/Vol]Automated blood monocyte count0.0-0.8[facility], AvonMonocytes/100 WBC Auto (Bld)Ordered By: Kush Glez on 05-73-9471Muvrhwihg/100 WBC (Bld)Automated monocyte %. [facility], AvonNeutrophils Auto (Bld) [#/Vol]Ordered By: Kush Glez on 98-79-7244Mltoyyddriw (Bld) [#/Vol]Neutrophils [#/volume] in Blood by Automated count1.8-7.7FCincinnati Children's Hospital Medical CenterNeutrophils/100 WBC Auto (Bld)Ordered By: Kush Glez on 48-45-4981Vayspukaabg/100 WBC (Bld) Automated neutrophil %.[facility], AvonNucleated erythrocytes [Presence] in Blood by Automated countOrdered By: Kush Glez on 11-04-2024 Nucleated RBC Auto Ql (Bld)Nucleated erythrocytes [Presence] in Blood by Automated count0-0.5FCincinnati Children's Hospital Medical CenterPlatelet mean volume Auto (Bld) [Entitic vol]Ordered By: Kush Glez on 04-44-3452Mlzzesya mean volume (Bld) [Entitic vol]Platelet mean volume [Entitic volume] in Blood by Automated count6.3-10.7FCincinnati Children's Hospital Medical CenterPlatelets Auto (Bld) [#/Vol] Ordered By: Kush Glez on 53-73-3888Elstvhqlm (Bld) [#/Vol]Platelets [#/volume] in Blood by Automated tynkwUpc357-585RtfaasweaSelect Medical Cleveland Clinic Rehabilitation Hospital, AvonRBC Auto (Bld) [#/Vol]Ordered By: Kush Glez on 20-02-1490FTG (Bld) [#/Vol]Erythrocytes [#/volume] in Blood by Automated countLow3.60-5.00[facility], AvonWBC Auto (Bld) [#/Vol]Ordered By: Kush Glez on 53-77-4814JEG (Bld) [#/Vol]Leukocytes [#/volume] in Blood by Automated count 3.8-11.6FCincinnati Children's Hospital Medical CenterAlanine aminotransferase [Enzymatic activity/volume] in Serum or PlasmaOrdered By: Kush Glez on 48-31-5390UAA [Catalytic activity/Vol]Alanine aminotransferase [Enzymatic activity/volume] in Serum or Plasma7-52[facility], AvonAlbumin [Mass/volume] in Serum or Plasma by Bromocresol green (BCG) dye binding methoOrdered By: Kush Hooker on 57-06-6308Fmqeusn BCG dye [Mass/Vol]Albumin [Mass/volume] in Serum or Plasma by Bromocresol green (BCG) dye binding metho3.5-5.7FCincinnati Children's Hospital Medical CenterAlkaline phosphatase [Enzymatic activity/volume] in Serum or PlasmaOrdered By: Kush Glez on 84-43-0646FQA [Catalytic activity/Vol] Alkaline phosphatase [Enzymatic activity/volume] in Serum or Yitwcl48-892 [facility], AvonAspartate aminotransferase [Enzymatic activity/volume] in Serum or PlasmaOrdered By: Kush Glez on 26-01-1691AYG [Catalytic activity/Vol]Aspartate aminotransferase [Enzymatic activity/volume] in Serum or Uevncy44-82WtaocozzjSelect Medical Cleveland Clinic Rehabilitation Hospital, AvonBasophils Auto (Bld) [#/Vol]Ordered By: Kush Glez on 54-85-9728Fageqqddl (Bld) [#/Vol]Automated basophil count0.0-0.2FCincinnati Children's Hospital Medical CenterBasophils/100 WBC Auto (Bld)Ordered By: Kush Glez on 09-65-1895Qkblnwnbe/100 WBC (Bld)Automated basophil %.[facility], AvonBilirubin.total [Mass/volume] in Serum or PlasmaOrdered By: Mhtara Glez on 11-45-7635Yfouuktyv [Mass/Vol] Bilirubin.total [Mass/volume] in Serum or Plasma0.3-1.0[facility], AvonCalcium [Mass/volume] in Serum or PlasmaOrdered By: tara Glez on 08-37-0194Xmjbqpg [Mass/Vol]Calcium [Mass/volume] in Serum or Plasma8.6-10.3 [facility], AvonCarbon dioxide, total [Moles/volume] in Serum or PlasmaOrdered By: tara Glez on 44-42-9160UL7 [Moles/Vol]Carbon dioxide, total [Moles/volume] in Serum or Amqnjm38.0-31.0[facility], AvonChloride [Moles/volume] in Serum or PlasmaOrdered By: [facility] on 88-68-5000Tailfkek [Moles/Vol]Chloride [Moles/volume] in Serum or Yrlaxy76-639 [facility], AvonComplete Blood Count Auto Diffon 10-29-2024 Basophils (Bld) [#/Vol]0.0 10*3/uLNormal0.0-0.2The [facility] Comment on above:Result Comment: PERFORMED BY:[address] [place], [place] [phone] MEDICAL DIRECTORALTHEA MEADOWS M.D.Performed By: #### CBC ####[address] [address] USABasophils/100 WBC (Bld)0.4 % Normal.The [facility] Physician GroupComment on above:Performed By: #### CBC ####[address] [address] [place] Eosinophils (Bld) [#/Vol]0.3 10*3/uLNormal0.0-0.45The [facility] Comment on above:Performed By: #### CBC ####[address] [address] USAEosinophils/100 WBC (Bld)7.0 %Normal.The [facility] Physician GroupComment on above:Performed By: #### CBC ####[place] [address] USAErythrocyte distribution width (RBC) [Ratio]19.9 %High11.9-15.3The [facility] Comment on above:Performed By: #### CBC ####[place] [address] USAHematocrit (Bld) [Volume fraction]26.1 %Low 34.0-46.4The Formerly [facility] Physician GroupComment on above:Performed By: #### CBC ####[address] Hemoglobin (Bld) [Mass/Vol]8.9 g/dLLow11.8-15.4The [facility] Comment on above:Performed By: #### CBC ####[place] [address] USALymphocytes (Bld) [#/Vol]1.7 10*3/uLNormal 1.00-4.8The [facility] Physician GroupComment on above:Performed By: #### CBC ####[place] [address] [place] Lymphocytes/100 WBC (Bld)38.0 %Normal.The [facility] Physician GroupComment on above:Performed By: #### CBC ####[address] StreetMCH (RBC) [Entitic mass]33.9 xjFxiyev72.7-34.3The Formerly [facility] Physician GroupComment on above:Performed By: #### CBC ####[address]MCV (RBC) [Entitic vol]99.0 uVRdspzj24-595Uie [facility] Physician GroupComment on above:Performed By: #### CBC ####[place] [address] USAMean Corpuscular HGB Conc34.2 g/dSRpkhhh21.0-35.0The [facility]ly [facility] Physician GroupComment on above:Performed By: #### CBC ####[place] [address] USAMonocytes (Bld) [#/Vol]0.2 10*3/uLNormal0.0-0.8The [facility] Physician GroupComment on above:Performed By: #### CBC ####[place] [address] USAMonocytes/100 WBC (Bld)4.0 %Normal.The [facility] Physician GroupComment on above:Performed By: #### CBC ####[place] [address] USANeutrophils (Bld) [#/Vol]2.3 10*3/uLNormal1.8-7.7The [facility]ly [facility] Physician GroupComment on above:Performed By: #### CBC ####[place] [address] USANeutrophils/100 WBC (Bld)50.6 %Normal.The [facility] Physician GroupComment on above:Performed By: #### CBC ####[place] [address] USANRBC%0.2 /100{WBC}Normal0-0.5The [facility] Physician GroupComment on above: Performed By: #### CBC ####[place] [address] USAPlatelet mean volume (Bld) [Entitic vol]8.1 fLNormal 6.3-10.7The Formerly [facility] Physician GroupComment on above:Performed By: #### CBC ####[place] [address] [place] Platelets (Bld) [#/Vol]145 10*3/vXWdc785-066Hds [facility] Physician GroupComment on above:Performed By: #### CBC ####[place] [address] USARBC (Bld) [#/Vol]2.63 10*6/uLLow3.60-5.00The [facility]ician [facility] SystemComment on above:Performed By: #### CBC ####[place] [address] USAWBC (Bld) [#/Vol]4.5 10*3/uLNormal3.8-11.6The [facility]ly [facility] Physician GroupComment on above:Performed By: #### CBC ####[place] [address] USAComprehensive Metabolic Panelon 69-71-0670Zgyqifj [Mass/Vol]3.9 g/dLNormal 3.5-5.7The Formerly [facility] Physician GroupComment on above:Performed By: #### FE PRO, CMP ####[address] Albumin/Globulin [Mass ratio]1.3 {ratio}NormalThe [facility] Comment on above:Performed By: #### FE PRO, CMP ####[place] [address] USAALP [Catalytic activity/Vol]67 U/L Gsksrn04-100Mda [facility] Physician GroupComment on above:Performed By: #### FE PRO, CMP ####[place] [address] USAALT [Catalytic activity/Vol]16 U/LNormal7-52The [facility] Comment on above:Performed By: #### FE PRO, CMP ####[place] [address] USAAnion gap [Moles/Vol]10.1 mmol/LNormal 6.0-15.0The Formerly [facility] Physician GroupComment on above:Performed By: #### FE PRO, CMP ####[place] [id number] [place] AST [Catalytic activity/Vol]25 U/ZEkytcd13-05Nbr [facility] Comment on above:Performed By: #### FE PRO, CMP ####[place] [id number] USABilirubin [Mass/Vol]0.5 mg/dLNormal 0.3-1.0The Formerly [facility] Physician GroupComment on above:Performed By: #### FE PRO, CMP ####[address] Calcium [Mass/Vol]9.7 mg/dLNormal8.6-10.3The Formerly [facility] Physician GroupComment on above:Performed By: #### FE PRO, CMP ####[place] [address] USAChloride [Moles/Vol]103 mmol/TMlwycz98-535Cie [facility] SystemComment on above:Performed By: #### FE PRO, CMP ####[place] [address] USACO2 [Moles/Vol]27.8 mmol/PVgxhvc19.0-31.0The Formerly [facility] Physician GroupComment on above:Performed By: #### FE PRO, CMP ####[place] [address] USACreatinine [Mass/Vol]0.77 mg/dLNormal0.60-1.20 The [facility]ly [facility] Physician GroupComment on above:Performed By: #### FE PRO, CMP ####[place] [address] [place] Creatinine Clr Calc Vdnnzfge50.72NormalThe [facility] SystemComment on above:Result Comment: PERFORMED BY:[address]AB[address] [place]IS[place]RO, [place] [phone] MEDICAL DIRECTORALTHEA JIMENEZ M.D.Performed By: #### FE PRO, CMP ####[place] [id number] USAGFR/1.73 sq M.predicted MDRD (S/P/Bld) [Vol rate/Area]mL/min/{1.73_m2}NormalThe [facility] SystemComment on above:Performed By: #### FE PRO, CMP ####[place] [address] USAGlobulin (S) [Mass/Vol]3.0 g/dLNormalThe [facility]ly [facility] Physician GroupComment on above:Performed By: #### FE PRO, CMP ####[place] [address] USAGlucose [Mass/Vol]109 mg/qXNcuo26-549Dqn [facility] Physician GroupComment on above: Result Comment: Random Glucose Reference Range is dependent on time and content of last meal. Glucose of more than 200 mg/dL in a nonstressed, ambulatory subject supports the diagnosis of Diabetes Mellitus. ADA recommended reference rangePerformed By: #### FE PRO, CMP ####[place] [address] USAPotassium [Moles/Vol]3.9 mmol/LNormal3.5-5.1The Formerly [facility] Physician GroupComment on above:Performed By: #### FE PRO, CMP ####[place] [id number] USAProtein [Mass/Vol]6.9 g/dLNormal6.4-8.9The Formerly [facility] Physician GroupComment on above: Performed By: #### FE PRO, CMP ####[place] [id number] USASodium [Moles/Vol]137 mmol/SOpxxdi986-675Wua [facility] Physician GroupComment on above:Performed By: #### FE PRO, CMP ####[place] [id number] USAUrea nitrogen [Mass/Vol]15 mg/dLNormal7-25The Formerly [facility] Physician GroupComment on above:Performed By: #### FE PRO, CMP ####[place] [id number] USACreatinine [Mass/volume] in Serum or Plasma Ordered By: Kush Glez on 09-33-7121Wdnfoukjsd [Mass/Vol]Creatinine [Mass/volume] in Serum or Plasma0.60-1.20[facility] Eosinophils Auto (Bld) [#/Vol]Ordered By: Kush Glez on 10-29-2024 Eosinophils (Bld) [#/Vol]Automated eosinophil count0.0-0.45[facility], AvonEosinophils/100 WBC Auto (Bld)Ordered By: Kush Glez on 83-73-4581Uhnixiqkfqu/100 WBC (Bld)Automated eosinophil %.[facility], AvonErythrocyte distribution width Auto (RBC) [Ratio]Ordered By: Kush Glez on 86-40-0435Hvopdsjgjyg distribution width (RBC) [Ratio]Erythrocyte distribution width [Ratio] by Automated maxhbWwpu98.9-15.3FCincinnati Children's Hospital Medical CenterFE PROon 10-29-2024% Iron Imkcxduajs00.2 %Itclpk74-99Vak Formerly [facility] Physician GroupComment on above:Performed By: #### FE PRO, CMP ####[address] [address] USATotal Iron Binding Kfuioqyw768 ug/fRMpomrd383-866Yhu [facility]ly [facility] Physician GroupComment on above: Performed By: #### FE PRO, CMP ####[address] [address] USAFerritin [Mass/volume] in Serum or PlasmaOrdered By: Kush Glez on 25-78-5993Yenpukcj [Mass/Vol]Ferritin [Mass/volume] in Serum or BiwzgpPioz00.0-306.8[facility], AvonFerritin [Mass/Vol]459.1 ng/gSFvlh75.0-306.8[facility], AvonComment on above:Result Comment: PERFORMED BY:[address] [place], [place] [phone] MEDICAL DIRECTORALTHEA MEADOWS M.D. Performed By: #### FE PRO, CMP ####[address] [address] USAGlobulin Calc (S) [Mass/Vol]Ordered By: Kush Hooker on 62-80-4456Gpamptmh (S) [Mass/Vol]Serum globulin measurement by calculation (mass/volume)[facility], AvonGlucose [Mass/volume] in Serum or PlasmaOrdered By: Kush Glez on 94-63-4068Dbkkpvi [Mass/Vol] Glucose [Mass/volume] in Serum or AbzrbsEefb09-634CqlguhcdxSelect Medical Cleveland Clinic [facility] Hospital, AvonComment on above:ADA recommended reference rangeRandom Glucose Reference Range is dependent on time and content of last meal. Glucose of more than 200 mg/dL in a nonstressed, ambulatory subject supports the diagnosisof Diabetes Mellitus.Hematocrit Auto (Bld) [Volume fraction]Ordered By: Kush Glez on 81-83-1289Tiuxnpwolq (Bld) [Volume fraction]Hematocrit [Volume Fraction] of Blood by Automated apzrxXzc84.0-46.4FCincinnati Children's Hospital Medical CenterHemoglobin [Mass/volume] in BloodOrdered By: Kush Glez on 83-55-8283Ptyxvoicru (Bld) [Mass/Vol]Hemoglobin [Mass/volume] in TupacQug23.8-15.4FCincinnati Children's Hospital Medical CenterIron [Mass/volume] in Serum or PlasmaOrdered By: Kush Glez on 89-07-6693Xwkx [Mass/Vol]Iron [Mass/volume] in Serum or Nubbxp73-630YldprhunmSelect Medical Cleveland Clinic Rehabilitation Hospital, AvonIron [Mass/Vol]81 ug/bACmdlto33-411UeldqgjbuSelect Medical [facility] Hospital, AvonComment on above:Performed By: #### FE PRO, CMP ####[facility] [address] [place] [address] USALeukocytes [#/volume] corrected for nucleated erythrocytes in Blood by Automated counOrdered By: Kush Glez on 58-70-5574ZFO corrected for nucl RBC Auto (Bld) [#/Vol]Leukocytes [#/volume] corrected for nucleated erythrocytes in Blood by Automated coun 3.8-11.6FCincinnati Children's Hospital Medical CenterLymphocytes Auto (Bld) [#/Vol]Ordered By: Kush Glez on 00-42-9714Vqmwdibggca (Bld) [#/Vol]Lymphocytes [#/volume] in Blood by Automated count1.00-4.8[facility] [place] Lymphocytes/100 WBC Auto (Bld)Ordered By: Kush Glez on 10-29-2024 Lymphocytes/100 WBC (Bld)Lymphocytes/100 leukocytes in Blood by Automated count. [facility], AvonMCH Auto (RBC) [Entitic mass]Ordered By: Kush Glez on 94-78-2855UYG (RBC) [Entitic mass]MCH [Entitic mass] by Automated count24.7-34.3FCincinnati Children's Hospital Medical CenterMCHC Auto (RBC) [Mass/Vol]Ordered By: Kush Glez on 26-00-5908AQGY (RBC) [Mass/Vol]MCHC [Mass/volume] by Automated count32.0-35.0[facility], AvonMCV Auto (RBC) [Entitic vol]Ordered By: Kush Glez on 93-16-2128PTR (RBC) [Entitic vol]MCV [Entitic volume] by Automated fugwj48-516SpvnicaleSelect Medical Cleveland Clinic Rehabilitation Hospital, AvonMonocytes Auto (Bld) [#/Vol]Ordered By: Kush Glez on 74-24-6476Hcfxscgwq (Bld) [#/Vol] Automated blood monocyte count0.0-0.8[facility] [place] Monocytes/100 WBC Auto (Bld)Ordered By: Kush Glez on 10-29-2024 Monocytes/100 WBC (Bld)Automated monocyte %.[facility] [place] Neutrophils Auto (Bld) [#/Vol]Ordered By: Kush Glez on 10-29-2024 Neutrophils (Bld) [#/Vol]Neutrophils [#/volume] in Blood by Automated count 1.8-7.7FCincinnati Children's Hospital Medical CenterNeutrophils/100 WBC Auto (Bld)Ordered By: Kush Glez on 75-77-1995Senlifefonz/100 WBC (Bld)Automated neutrophil %. [facility], AvonNo Panel InformationOrdered By: Kush Glez on 61-81-2068Tfrqzdbwu GFR (CKD-EPI)> 60.0 mL/MinSelect Medical Cleveland Clinic Rehabilitation Hospital, AvonPharmacy Creatinine Clearance (Chem72.72[facility] [place] Nucleated erythrocytes [Presence] in Blood by Automated countOrdered By: Kush Hooker on 24-35-9710Rpfernsij RBC Auto Ql (Bld)Nucleated erythrocytes [Presence] in Blood by Automated count0-0.5FCincinnati Children's Hospital Medical Center Platelet mean volume Auto (Bld) [Entitic vol]Ordered By: Kush Glez on 56-29-1089Cjqgmrny mean volume (Bld) [Entitic vol]Platelet mean volume [Entitic volume] in Blood by Automated count6.3-10.7FCincinnati Children's Hospital Medical Center Platelets Auto (Bld) [#/Vol]Ordered By: Kush Glez on 22-68-2718Vzxpvfgou (Bld) [#/Vol]Platelets [#/volume] in Blood by Automated fwtgsKye184-384ZpnvluwjaSelect Medical Cleveland Clinic Rehabilitation Hospital, AvonPotassium [Moles/volume] in Serum or PlasmaOrdered By: Kush Glez on 31-15-6238Hsdtiftdn [Moles/Vol]Potassium [Moles/volume] in Serum or Plasma3.5-5.1FCincinnati Children's Hospital Medical CenterProtein [Mass/volume] in Serum or PlasmaOrdered By: Kush Glez on 29-20-6916Cxxcapa [Mass/Vol]Protein [Mass/volume] in Serum or Plasma6.4-8.9[facility], AvonRBC Auto (Bld) [#/Vol]Ordered By: Kush Glez on 03-60-7594YLV (Bld) [#/Vol] Erythrocytes [#/volume] in Blood by Automated countLow3.60-5.00[facility] Cincinnatierum or plasma albumin/globulin mass ratioOrdered By: Kush Glez on 25-86-3801Hjscpsj/Globulin [Mass ratio]Serum or plasma albumin/globulin mass ratioSelect Medical Specialty Hospital - Cincinnatierum or plasma anion gap determinationOrdered By: Kush Glez on 77-21-8988Qhnke gap [Moles/Vol]Serum or plasma anion gap determination6.0-15.0[facility] Cincinnatierum or plasma iron binding capacity measurement (mass/volume) Ordered By: Kush Glez on 27-57-9297Eokk binding capacity [Mass/Vol]Iron binding capacity [Mass/volume] in Serum or Erwgva747-068MxtsrpjsbSelect Medical Cleveland Clinic Rehabilitation Hospital, AvonIron binding capacity [Mass/Vol]321 ug/mH308-696QbclvhncsSelect Medical Specialty Hospital - Cincinnatierum or plasma iron saturation measurement (mass fraction) Ordered By: Kush Glez on 28-32-9780Mild saturation [Mass fraction]Iron saturation [Mass Fraction] in Serum or Fnfspk68-37UrllyqhsaSelect Medical Cleveland Clinic Rehabilitation Hospital, AvonIron saturation [Mass fraction]25.2 %20-50[facility] - Cincinnatiodium [Moles/volume] in Serum or PlasmaOrdered By: Kush Glez on 22-94-9296Dwdkit [Moles/Vol]Sodium [Moles/volume] in Serum or Rqmiaf098-361 [facility], AvonTransferrin [Mass/volume] in Serum or Plasma Ordered By: Kush Glez on 55-94-3312Uadscgaswxl [Mass/Vol]Transferrin [Mass/volume] in Serum or Dibqrs600-852DzyndvsbvSelect Medical Cleveland Clinic Rehabilitation Hospital, [place]on Transferrin [Mass/Vol]229 mg/vOAnowco433-117RyclzbpjaSelect Medical [facility], [place]on Comment on above:Performed By: #### FE PRO, CMP ####[facility] [address] [place] [address] USAUrea nitrogen [Mass/volume] in Serum or PlasmaOrdered By: Kush Glez on 93-28-2381Ekpo nitrogen [Mass/Vol]Urea nitrogen [Mass/volume] in Serum or Plasma7-25[facility] WBC Auto (Bld) [#/Vol]Ordered By: Kush Glez on 15-41-3164HOZ (Bld) [#/Vol] Leukocytes [#/volume] in Blood by Automated count3.8-11.6FCincinnati Children's Hospital Medical CenterComplete Blood Count Auto Diffon 75-51-3673Diqdxsbxe (Bld) [#/Vol] 0.1 10*3/uLNormal0.0-0.2The Formerly [facility] Hospital Physician GroupComment on above:Result Comment: PERFORMED BY:[address] [place], [place] [phone] MEDICAL DIRECTORALTHEA MEADOWS M.D. Performed By: #### CBC ####[place] [id number] USABasophils/100 WBC (Bld)0.9 %Normal.The Formerly [facility] Hospital Physician GroupComment on above:Performed By: #### CBC ####[place] [address] USAEosinophils (Bld) [#/Vol]0.7 10*3/uLHigh0.0-0.45The Formerly [facility] Hospital Physician GroupComment on above:Performed By: #### CBC ####[place] [address] USAEosinophils/100 WBC (Bld)10.5 %Normal.The Formerly [facility] Hospital Physician GroupComment on above:Performed By: #### CBC ####[place] [address] USAErythrocyte distribution width (RBC) [Ratio]18.7 % High11.9-15.3The Formerly [facility] Hospital Physician GroupComment on above:Performed By: #### CBC ####[place] [address] [place] Hematocrit (Bld) [Volume fraction]25.0 %Low34.0-46.4The Formerly [facility] Hospital Physician GroupComment on above:Performed By: #### CBC ####[place] [address] USAHemoglobin (Bld) [Mass/Vol]8.4 g/dLLow 11.8-15.4The Formerly [facility] Hospital Physician GroupComment on above:Performed By: #### CBC ####[place] [address] [place] Lymphocytes (Bld) [#/Vol]1.9 10*3/uLNormal1.00-4.8The [facility] Comment on above:Performed By: #### CBC ####[place] [address] USALymphocytes/100 WBC (Bld)26.6 %Normal.The Formerly [facility] Hospital Physician GroupComment on above:Performed By: #### CBC ####[address] [place] [address] USAMCH (RBC) [Entitic mass]32.6 muFghckl79.7-34.3The Formerly [facility] Hospital Physician GroupComment on above: Performed By: #### CBC ####[address] (RBC) [Entitic vol]96.9 eBBtmghm43-467Jkt Formerly [facility] Physician GroupComment on above:Performed By: #### CBC ####[place] [address] USAMean Corpuscular HGB Conc33.6 g/gIVqiumh86.0-35.0The Formerly [facility] Hospital Physician GroupComment on above: Performed By: #### CBC ####[place] [address] USAMonocytes (Bld) [#/Vol]0.2 10*3/uLNormal0.0-0.8The Formerly [facility] Physician GroupComment on above:Performed By: #### CBC ####[place] [address] USAMonocytes/100 WBC (Bld)3.4 %Normal.The Formerly [facility] Physician GroupComment on above:Performed By: #### CBC ####[place] [address] USANeutrophils (Bld) [#/Vol]4.1 10*3/uLNormal1.8-7.7The Formerly [facility] Hospital Physician GroupComment on above:Performed By: #### CBC ####[place] [address] USANeutrophils/100 WBC (Bld)58.6 %Normal. The Formerly [facility] Hospital Physician GroupComment on above:Performed By: #### CBC ####[place] [address] USANRBC% 0.1 /100{WBC}Normal0-0.5The Formerly [facility] Hospital Physician GroupComment on above:Performed By: #### CBC ####[place] [address] USAPlatelet mean volume (Bld) [Entitic vol]7.9 fLNormal6.3-10.7The Formerly [facility] Hospital Physician GroupComment on above:Performed By: #### CBC ####[address] [place] [address] USAPlatelets (Bld) [#/Vol]185 10*3/jJRdheay685-347Kkx Formerly [facility] Physician GroupComment on above: Performed By: #### CBC ####[address] [place] [id number] USARBC (Bld) [#/Vol]2.58 10*6/uLLow3.60-5.00The Formerly [facility] Physician GroupComment on above:Performed By: #### CBC ####[address] [address] USAWBC (Bld) [#/Vol]7.0 10*3/uLNormal3.8-11.6The Formerly [facility] Hospital Physician GroupComment on above:Performed By: #### CBC ####[place] [id number] USAAlanine aminotransferase [Enzymatic activity/volume] in Serum or Plasma Ordered By: Kush Glez on 81-60-7640PAY [Catalytic activity/Vol]Alanine aminotransferase [Enzymatic activity/volume] in Serum or Plasma7-52[facility], AvonAlbumin [Mass/volume] in Serum or Plasma by Bromocresol green (BCG) dye binding methoOrdered By: Kush Glez on 23-28-9690Koflequ BCG dye [Mass/Vol]Albumin [Mass/volume] in Serum or Plasma by Bromocresol green (BCG) dye binding methoLow3.5-5.7FCincinnati Children's Hospital Medical CenterAlkaline phosphatase [Enzymatic activity/volume] in Serum or PlasmaOrdered By: Kush Hooker on 25-55-4805XEC [Catalytic activity/Vol]Alkaline phosphatase [Enzymatic activity/volume] in Serum or Fujuzk24-426WlfhgnphcSelect Medical Cleveland Clinic Rehabilitation Hospital, Avon Aspartate aminotransferase [Enzymatic activity/volume] in Serum or PlasmaOrdered By: Kush Glez on 33-65-0035BTZ [Catalytic activity/Vol]Aspartate aminotransferase [Enzymatic activity/volume] in Serum or Liyydq09-51BkqnxciuiSelect Medical Cleveland Clinic Rehabilitation Hospital, AvonBasophils Auto (Bld) [#/Vol]Ordered By: Kush Glez on 24-59-7957Psouszton (Bld) [#/Vol]Automated basophil count0.0-0.2FCincinnati Children's Hospital Medical CenterBasophils/100 WBC Auto (Bld)Ordered By: Kush Glez on 59-75-1267Lewudwsww/100 WBC (Bld)Automated basophil %.[facility], AvonBilirubin.total [Mass/volume] in Serum or PlasmaOrdered By: Kush Glez on 46-97-5304Yjtlrozns [Mass/Vol]Bilirubin.total [Mass/volume] in Serum or Plasma0.3-1.0[facility], AvonCalcium [Mass/volume] in Serum or PlasmaOrdered By: Kush Glez on 65-47-7253Ipoxurw [Mass/Vol]Calcium [Mass/volume] in Serum or Plasma8.6-10.3FCincinnati Children's Hospital Medical CenterCarbon dioxide, total [Moles/volume] in Serum or PlasmaOrdered By: Kush Glez on 17-26-4663HQ9 [Moles/Vol]Carbon dioxide, total [Moles/volume] in Serum or Plasma 21.0-31.0[facility], AvonChloride [Moles/volume] in Serum or PlasmaOrdered By: Kush Glez on 16-89-9098Adcqojop [Moles/Vol]Chloride [Moles/volume] in Serum or Ronxrk03-060HopzomcnnSelect Medical Cleveland Clinic Rehabilitation Hospital, AvonComplete Blood Count Auto Diffon 73-30-1995Ptlossyvg (Bld) [#/Vol]0.1 10*3/uLNormal 0.0-0.2The Formerly [facility] Physician GroupComment on above:Result Comment: PERFORMED BY:[address] [place], [place] [phone] MEDICAL DIRECTORALTHEA MEADOWS M.D.Performed By: #### CBC ####[place] [id number] [place] Basophils/100 WBC (Bld)0.5 %Normal.The Formerly [facility] Hospital Physician GroupComment on above:Performed By: #### CBC ####[place] [id number] USAEosinophils (Bld) [#/Vol]0.9 10*3/uLHigh0.0-0.45The Formerly [facility] Hospital Physician GroupComment on above:Performed By: #### CBC ####[place] [id number] USAEosinophils/100 WBC (Bld)8.5 %Normal.The Formerly [facility] Hospital Physician GroupComment on above:Performed By: #### CBC ####[place] [address] USAErythrocyte distribution width (RBC) [Ratio]18.9 %High11.9-15.3The Formerly [facility] Hospital Physician GroupComment on above:Performed By: #### CBC ####[place] [address] USAHematocrit (Bld) [Volume fraction]23.9 %Low34.0-46.4The Formerly [facility] Hospital Physician GroupComment on above: Performed By: #### CBC ####[place] [id number] USAHemoglobin (Bld) [Mass/Vol]8.1 g/dLLow11.8-15.4The Formerly [facility] Physician GroupComment on above:Performed By: #### CBC ####[place] [address] USALymphocytes (Bld) [#/Vol]2.1 10*3/uLNormal1.00-4.8The Formerly [facility] Physician GroupComment on above: Performed By: #### CBC ####[place] [id number] USALymphocytes/100 WBC (Bld)20.4 %Normal.The Formerly [facility] Hospital Physician GroupComment on above:Performed By: #### CBC ####[address] [place] [address] [facility] [place] (RBC) [Entitic mass]33.3 iyQhjaot31.7-34.3The Formerly [facility] Hospital Physician GroupComment on above:Performed By: #### CBC ####[address] [address] [facility] CITYV (RBC) [Entitic vol]98.0 oSGovwra33-709Hec [facility] Comment on above:Performed By: #### CBC ####[address] [address] USAMean Corpuscular HGB Conc33.9 g/dLNormal 32.0-35.0The Formerly [facility] Hospital Physician GroupComment on above:Performed By: #### CBC ####[address] [address] [place] Monocytes (Bld) [#/Vol]0.9 10*3/uLHigh0.0-0.8The [facility] Comment on above:Performed By: #### CBC ####[address] [address] USAMonocytes/100 WBC (Bld)9.2 %Normal.The Formerly [facility] Physician GroupComment on above:Performed By: #### CBC ####[address] [address] USANeutrophils (Bld) [#/Vol]6.3 10*3/uLNormal1.8-7.7The Formerly [facility] Physician GroupComment on above: Performed By: #### CBC ####[address] [address] USANeutrophils/100 WBC (Bld)61.4 %Normal.The Formerly [facility] Physician GroupComment on above:Performed By: #### CBC ####[address] [address] USANRBC%0.1 /100{WBC}Normal0-0.5 The Formerly [facility] Physician GroupComment on above:Performed By: #### CBC ####[address] [place] [address] [facility] Platelet mean volume (Bld) [Entitic vol]7.6 fLNormal6.3-10.7The Formerly [facility] Physician GroupComment on above:Performed By: #### CBC ####[address] [address] USAPlatelets (Bld) [#/Vol]254 10*3/gTSfspfv575-838Ekk Formerly [facility] Physician GroupComment on above:Performed By: #### CBC ####[address] [address] USARBC (Bld) [#/Vol]2.44 10*6/uLLow3.60-5.00The Formerly [facility] Physician GroupComment on above:Performed By: #### CBC ####[address] [address] USAWBC (Bld) [#/Vol]10.3 10*3/uLNormal3.8-11.6The Formerly [facility] Physician GroupComment on above:Performed By: #### CBC ####[address] [address] USAComprehensive Metabolic Panelon 09-06-6182Hwlyuxd [Mass/Vol]3.4 g/dLLow3.5-5.7The Formerly [facility] Physician GroupComment on above:Performed By: #### CMP ####[address] [address] USAAlbumin/Globulin [Mass ratio] 1.1 {ratio}NormalThe Formerly [facility] Physician GroupComment on above:Performed By: #### CMP ####[address] [address] USAALP [Catalytic activity/Vol]93 U/OVuxhzi32-126Xrj [facility] Comment on above:Performed By: #### CMP ####[address] [address] USAALT [Catalytic activity/Vol]12 U/LNormal7-52 The Formerly [facility] Physician GroupComment on above:Performed By: #### CMP ####[address] [place] [address] USAAnion gap [Moles/Vol]11.2 mmol/LNormal6.0-15.0The Formerly [facility] Physician GroupComment on above:Performed By: #### CMP ####[address] [address] USAAST [Catalytic activity/Vol]18 U/XUydzxv88-34Fbb [facility] Physician GroupComment on above:Performed By: #### CMP ####[address] [address] USABilirubin [Mass/Vol] 0.3 mg/dLNormal0.3-1.0The Formerly [facility] Physician GroupComment on above:Performed By: #### CMP ####[address] [address] USACalcium [Mass/Vol]9.3 mg/dLNormal8.6-10.3The [facility] Comment on above:Performed By: #### CMP ####[address] [address] USAChloride [Moles/Vol]104 mmol/JQtfjyr22-225Jyf Former[facility] Physician GroupComment on above:Performed By: #### CMP ####[address] [address] USACO2 [Moles/Vol]27.0 mmol/ADjhvfc81.0-31.0The Formerly [facility] Physician GroupComment on above:Performed By: #### CMP ####[address] [address] USACreatinine [Mass/Vol]0.75 mg/dLNormal0.60-1.20The [facility] Comment on above:Performed By: #### CMP ####[address] [address] USACreatinine Clr Calc Lauixtdl31.82NormalThe Formerly [facility] Physician GroupComment on above:Result Comment: PERFORMED BY:[address] [place] [place], [place] [phone] MEDICAL DIRECTORALTHEA MEADOWS M.D.Performed By: #### CMP ####[address] [address] USAGFR/1.73 sq M.predicted MDRD (S/P/Bld) [Vol rate/Area]mL/min/{1.73_m2}NormalThe Formerly [facility] Physician GroupComment on above:Performed By: #### CMP ####[address] [address] USAGlobulin (S) [Mass/Vol]3.0 g/dLNormalThe Formerly [facility] Physician GroupComment on above:Performed By: #### CMP ####[place] [id number] USAGlucose [Mass/Vol]100 mg/iHWbcsbf81-290Oic Former[facility] Physician GroupComment on above: Result Comment: Random Glucose Reference Range is dependent on time and content of last meal. Glucose of more than 200 mg/dL in a nonstressed, ambulatory subject supports the diagnosis of Diabetes Mellitus. ADA recommended reference rangePerformed By: #### CMP ####[address] [address] USAPotassium [Moles/Vol]4.2 mmol/LNormal3.5-5.1The Formerly [facility] Physician GroupComment on above:Performed By: #### CMP ####[address] [address] USAProtein [Mass/Vol]6.4 g/dLNormal6.4-8.9The Formerly [facility] Physician GroupComment on above:Performed By: #### CMP ####[address] [address] USASodium [Moles/Vol]138 mmol/RDggoox015-701Qnw Former[facility] Physician GroupComment on above:Performed By: #### CMP ####[address] [address] USAUrea nitrogen [Mass/Vol]14 mg/dLNormal7-25The Formerly [facility] Physician GroupComment on above:Performed By: #### CMP ####[place] [address] [place] [address] USACreatinine [Mass/volume] in Serum or PlasmaOrdered By: tara Glez on 10-15-2024 Creatinine [Mass/Vol]Creatinine [Mass/volume] in Serum or Plasma0.60-1.20 [facility], AvonEosinophils Auto (Bld) [#/Vol]Ordered By: tara Glez on 08-27-0394Wbgjgadmikp (Bld) [#/Vol]Automated eosinophil countHigh 0.0-0.45[facility], AvonEosinophils/100 WBC Auto (Bld)Ordered By: tara Glez on 41-16-7504Zydkcfwdxpo/100 WBC (Bld)Automated eosinophil %. [facility], AvonErythrocyte distribution width Auto (RBC) [Ratio]Ordered By: tara Glez on 79-15-1046Sgtnjutnyyj distribution width (RBC) [Ratio]Erythrocyte distribution width [Ratio] by Automated countHigh 11.9-15.3FCincinnati Children's Hospital Medical CenterGlobulin Calc (S) [Mass/Vol]Ordered By: [facility] on 17-45-9262Rnpsfclj (S) [Mass/Vol]Serum globulin measurement by calculation (mass/volume)[facility], AvonGlucose [Mass/volume] in Serum or PlasmaOrdered By: tara Glez on 58-26-3484Azjxnfi [Mass/Vol]Glucose [Mass/volume] in Serum or Daywzo47-145IogoyegkiSelect Medical Cleveland Clinic Rehabilitation Hospital, AvonComment on above:ADA recommended reference rangeRandom Glucose Reference Range is dependent on time and content of last meal. Glucose of more than 200 mg/dL in a nonstressed, ambulatory subject supports the diagnosisof Diabetes Mellitus.Hematocrit Auto (Bld) [Volume fraction]Ordered By: tara Hooker on 21-02-5872Cixnlkwirf (Bld) [Volume fraction]Hematocrit [Volume Fraction] of Blood by Automated cfyxuBbp38.0-46.4FCincinnati Children's Hospital Medical CenterHemoglobin [Mass/volume] in BloodOrdered By: tara Glez on 10-15-2024 Hemoglobin (Bld) [Mass/Vol]Hemoglobin [Mass/volume] in OjdmaHvz99.8-15.4 [facility], AvonLeukocytes [#/volume] corrected for nucleated erythrocytes in Blood by Automated counOrdered By: Kush Glez on 10-15-2024 WBC corrected for nucl RBC Auto (Bld) [#/Vol]Leukocytes [#/volume] corrected for nucleated erythrocytes in Blood by Automated coun3.8-11.6FCincinnati Children's Hospital Medical CenterLymphocytes Auto (Bld) [#/Vol]Ordered By: Kush Glez on 75-86-3593Waytgbsqtbw (Bld) [#/Vol]Lymphocytes [#/volume] in Blood by Automated count1.00-4.8[facility], AvonLymphocytes/100 WBC Auto (Bld) Ordered By: Kush Glez on 28-91-4176Rcdwbnixnnt/100 WBC (Bld)Lymphocytes/100 leukocytes in Blood by Automated count.[facility], AvonMCH Auto (RBC) [Entitic mass]Ordered By: Kush Glez on 37-07-6334OEG (RBC) [Entitic mass]MCH [Entitic mass] by Automated count24.7-34.3FCincinnati Children's Hospital Medical CenterMCHC Auto (RBC) [Mass/Vol]Ordered By: Kush Glez on 10-15-2024 MCHC (RBC) [Mass/Vol]MCHC [Mass/volume] by Automated count32.0-35.0[facility], AvonMCV Auto (RBC) [Entitic vol]Ordered By: Kush Glez on 41-50-3619ENS (RBC) [Entitic vol]MCV [Entitic volume] by Automated mmxiy63-743 [facility], AvonMonocytes Auto (Bld) [#/Vol]Ordered By: Kush Hooker on 52-80-8211Saphigsmj (Bld) [#/Vol]Automated blood monocyte countHigh 0.0-0.8[facility] AvonMonocytes/100 WBC Auto (Bld)Ordered By: Kush Glez on 59-76-5267Ksbcjxukk/100 WBC (Bld)Automated monocyte %. [facility], AvonNeutrophils Auto (Bld) [#/Vol]Ordered By: Kush Glez on 32-23-5274Cccawlstqrq (Bld) [#/Vol]Neutrophils [#/volume] in Blood by Automated count1.8-7.7FCincinnati Children's Hospital Medical CenterNeutrophils/100 WBC Auto (Bld)Ordered By: Kush Glez on 78-87-1601Ytbtuuvqhbo/100 WBC (Bld) Automated neutrophil %.[facility], AvonNo Panel Information Ordered By: Kush Glez on 33-44-4997Bimddyhkz GFR (CKD-EPI)> 60.0 mL/Min [facility], [facility]onPharmacy Creatinine Clearance (Chem69.82 [facility], AvonNucleated erythrocytes [Presence] in Blood by Automated countOrdered By: Kush Glez on 90-70-1704Cyvbfgnxy RBC Auto Ql (Bld)Nucleated erythrocytes [Presence] in Blood by Automated count0-0.5FCincinnati Children's Hospital Medical CenterPlatelet mean volume Auto (Bld) [Entitic vol]Ordered By: Kush Glez on 82-20-9106Zazbyjxe mean volume (Bld) [Entitic vol]Platelet mean volume [Entitic volume] in Blood by Automated count6.3-10.7FCincinnati Children's Hospital Medical CenterPlatelets Auto (Bld) [#/Vol]Ordered By: Kush Glez on 67-37-9276Uvitjpjeo (Bld) [#/Vol]Platelets [#/volume] in Blood by Automated yhsbu209-868HtpxblndfSelect Medical Cleveland Clinic Rehabilitation Hospital, AvonPotassium [Moles/volume] in Serum or PlasmaOrdered By: Kush Glez on 00-57-8105Vukjrkqzn [Moles/Vol]Potassium [Moles/volume] in Serum or Plasma3.5-5.1FCincinnati Children's Hospital Medical CenterProtein [Mass/volume] in Serum or PlasmaOrdered By: Kush Glez on 24-29-1476Pxlgatt [Mass/Vol]Protein [Mass/volume] in Serum or Plasma6.4-8.9[facility], AvonRBC Auto (Bld) [#/Vol]Ordered By: Kush Glez on 68-86-6648QTF (Bld) [#/Vol]Erythrocytes [#/volume] in Blood by Automated countLow3.60-5.00 [facility]atierum or plasma albumin/globulin mass ratio Ordered By: Kush Glez on 50-08-6486Dxftizo/Globulin [Mass ratio]Serum or plasma albumin/globulin mass ratioSelect Medical Specialty Hospital - Cincinnatierum or plasma anion gap determinationOrdered By: Kush Glez on 63-79-7142Ffqym gap [Moles/Vol]Serum or plasma anion gap determination6.0-15.0[facility] Cincinnatiodium [Moles/volume] in Serum or PlasmaOrdered By: Kush Glez on 20-62-2380Uvnquh [Moles/Vol]Sodium [Moles/volume] in Serum or Ivsqgl752-443 [facility], AvonUrea nitrogen [Mass/volume] in Serum or Plasma Ordered By: Kush Glez on 96-68-4489Jsuy nitrogen [Mass/Vol]Urea nitrogen [Mass/volume] in Serum or Plasma7-25[facility], AvonWBC Auto (Bld) [#/Vol]Ordered By: Kush Glez on 55-10-4834KEP (Bld) [#/Vol]Leukocytes [#/volume] in Blood by Automated count3.8-11.6FCincinnati Children's Hospital Medical Center Family Medicine Office/Clinic Noteon 45-65-1404Jgxjps Medicine Office/Clinic NoteFamily Medicine Office/Clinic Note Chief Complaint TCM follow up Breast cancer treatment and infection management concerns. HPI Staff Pt presents today for TCM visit. Hospital: [facility] Admission date: 09/17/2024 Discharge date: 2024 Symptoms the patient presented with: abnormal vitals at oncology visit Current concerns: Wants to get Terra her friend as caregiver. History of Present Illness The patient is a 64-year-old female presenting for follow-up post- hospitalization for multiple health issues, including breast cancer, pneumonia, pancytopenia, and urinary symptoms. The patient was previously diagnosed with breast cancer in the lower-inner quadrant of the left breast. She experienced a recent hospital admission due to complications arising from her oncology treatment, which led to her presenting vitals instability and subsequent emergency room visit. She was hospitalized for eight days due to pneumonia with unspecified organism, pancytopenia, and urinary tract infection symptoms. During her hospital stay, she was on oxygen therapy for 24 hours due to low white blood cell counts. She is currently on a 30-day course of Augmentin and her heart medications were adjusted to include a stronger formulation of losartan combined with metoprolol, likely due to cardiac concerns. The patient expressed concerns over changes in medication and management, specifically noting a lack o f explanation at discharge. She is scheduled to resume chemotherapy. Additionally, the patient mentioned feeling physically weak and requiring extra assistance at home, which has been complicated by administrative challenges preventing her from obtaining appropriate home support services. - Nonsmoker status reinforced. - Discussion of need for caregiver support at home. Review of Systems PHQ Score Initial Depression Screen Score: 0 SCORE Physical Exam Vitals & Measurements T: 37.1 ???C(Tympanic) HR: 98(Peripheral) RR: 18 BP: 112/70 SpO2: 100% HT: 65 in HT: 165.5 cm WT: 59.9 kg WT: 132.057 lb BMI: 21.87 General: alert, no acute distress ENMT: oral mucosa moist Cardiovascular: Regular rate and rhythm, normal peripheral perfusion Respiratory: Lungs clear to auscultation, respirations non labored, Diminished, wet cough. Extremities: no deformity, no trauma Neurological: oriented x 4, level of consciousness appropriate for age, CN II- XII intact, motor strength equal & normal bilaterally, speech normal Abdomen: Soft, Non-tender, Non-distended, + Bowel sounds Assessment/Plan 1. Hospital discharge follow-up (Z09: Encounter for follow-up examination after completed treatmentfor conditions other than malignant neoplasm) Coordinate with hospital for necessary discharge paperwork. Ensure review and clarification on medication adjustments and follow-up care plan. Ordered: Misc Prescription, Handicap Placard, 5 years., See Instructions, 1 EA, 0, Handicap Placard, 5 years., [employer] - Ambulatory Referral 2. BMI 21.0-21.9, adult (Z68.21: Body mass index [BMI] 21.0-21.9, adult) Monitor patient's weight and nutritional intake to ensure maintenance of suitable BMI during ongoing oncology treatment. Ordered: Misc Prescription, Handicap Placard, 5 years., See Instructions, 1 EA, 0, Handicap Placard, 5 years., [employer] - Ambulatory Referral 3. Nonsmoker (Z78.9: Other specified health status) Please continue to not smoke. Ordered: Misc Prescription, Handicap Placard, 5 years., See Instructions, 1 EA, 0, Handicap Placard, 5 years., [employer] - Ambulatory Referral 4. Breast cancer of lower-inner quadrant of left female breast (C50.312: Malignant neoplasm of lower-inner quadrant of left female breast) Resume chemotherapy as scheduled. Collaborate with oncology team to ensure treatment regimen is appropriate given recent health complications. Monitor response to treatment closely. Ordered: cetirizine, 10 mg = 1 tab(s), Oral, Daily, # 90 tab(s), Refills(s) 0, Pharmacy: [facility], 165.5, cm, 08/06/24 13:24:00 EST, Height/Length Dosing, 67.6, kg, 08/06/24 13:24:00 EST, Weight Dosing fluticasone nasal, 2 spray(s), Nasal, Daily, 16 gram, Refill(s) 0, each nostril, [facility], 165.5, cm, 08/06/24 13:24:00 EST, Height/Length Dosing, 67.6, kg, 08/06/24 13:24:00 EST, Weight Dosing Misc Prescription, Handicap Placard, 5 years., See Instructions, 1 EA, 0, Handicap Placard, 5 years., [employer] - Ambulatory Referral 5. PNA (pneumonia) (J18.9: Pneumonia, unspecified organism) Continue current antibiotic therapy (Augmentin). Assess symptom resolution and perform necessary investigations if symptoms persist. Ordered: Misc Prescription, Handicap Placard, 5 years., See Instructions, 1 EA, 0, Handicap Placard, 5 years., [employer] - Ambulatory Referral 6. UTI symptoms (R39.9: Unspecified symptoms and signs involving the genitourinary system) Investigate and address ongoing urinary sy (more content not included)...Normal [facility] HospitalComment on above:Result Comment: Electronically Signed By: Kishan PRATT, Michael Ball.br\Date and Time Signed: 10/08/24 12:03 EST Alanine aminotransferase [Enzymatic activity/volume] in Serum or PlasmaOrdered By: Roshan Reynoso on 68-14-5178PXZ [Catalytic activity/Vol]Alanine aminotransferase [Enzymatic activity/volume] in Serum or Plasma7-52[facility], AvonAlbumin [Mass/volume] in Serum or Plasma by Bromocresol green (BCG) dye binding methoOrdered By: Roshan Reynoso on 13-35-5559Hhvtuhc BCG dye [Mass/Vol]Albumin [Mass/volume] in Serum or Plasma by Bromocresol green (BCG) dye binding metho3.5-5.7FCincinnati Children's Hospital Medical CenterAlkaline phosphatase [Enzymatic activity/volume] in Serum or PlasmaOrdered By: Roshan Reynoso on 77-09-7596MSP [Catalytic activity/Vol]Alkaline phosphatase [Enzymatic activity/volume] in Serum or Jvzjxe53-685VclnvagmmSelect Medical [facility], [place] Aspartate aminotransferase [Enzymatic activity/volume] in Serum or PlasmaOrdered By: Roshan Reynoso on 64-18-3596OJM [Catalytic activity/Vol]Aspartate aminotransferase [Enzymatic activity/volume] in Serum or Tbkfcc64-91ZioxucrdgSelect Medical Cleveland Clinic Rehabilitation Hospital, AvonBasophils Auto (Bld) [#/Vol]Ordered By: Roshan Reynoso on 86-09-1160Qwpjiodss (Bld) [#/Vol]Automated basophil count0.0-0.2FCincinnati Children's Hospital Medical CenterBasophils/100 WBC Auto (Bld)Ordered By: Roshan Reynoso on 61-04-2720Kpegoupya/100 WBC (Bld)Automated basophil %.[facility], AvonBilirubin.total [Mass/volume] in Serum or PlasmaOrdered By: Roshan Reynoso on 48-07-3990Hrbsrtfsa [Mass/Vol]Bilirubin.total [Mass/volume] in Serum or Plasma0.3-1.0[facility], AvonCT chest w conon 01-34-5690WM chest w conNormalThe Formerly [facility] Physician GroupCalcium [Mass/volume] in Serum or PlasmaOrdered By: Roshan Reynoso on 05-58-6386Askitue [Mass/Vol]Calcium [Mass/volume] in Serum or Plasma8.6-10.3FCincinnati Children's Hospital Medical CenterCarbon dioxide, total [Moles/volume] in Serum or PlasmaOrdered By: Roshan Reynoso on 10-77-0762CK5 [Moles/Vol]Carbon dioxide, total [Moles/volume] in Serum or Plasma 21.0-31.0[facility], AvonChloride [Moles/volume] in Serum or PlasmaOrdered By: Roshan Reynoso on 20-90-9702Ajijurik [Moles/Vol]Chloride [Moles/volume] in Serum or Aygtyx58-865CyxvrwbuvSelect Medical [facility], AvonComplete Blood Count Auto Diffon 89-81-9178Nctmkbckj (Bld) [#/Vol]0.1 10*3/uLNormal 0.0-0.2The Formerly [facility] Hospital Physician GroupComment on above:Result Comment: PERFORMED BY:[address] [place], [place] [phone] MEDICAL DIRECTORALTHEA MEADOWS M.D.Performed By: #### CMP, CBC ####[place] [id number] USABasophils/100 WBC (Bld)0.8 %Normal.The Formerly [facility] Hospital Physician GroupComment on above:Performed By: #### CMP, CBC ####[address] [address] USAEosinophils (Bld) [#/Vol]0.3 10*3/uLNormal0.0-0.45 The Formerly [facility] Hospital Physician GroupComment on above:Performed By: #### CMP, CBC ####[place] [id number] [place] Eosinophils/100 WBC (Bld)2.9 %Normal.The Formerly [facility] Physician GroupComment on above:Performed By: #### CMP, CBC ####[address] [address] USAErythrocyte distribution width (RBC) [Ratio]18.5 % High11.9-15.3The Formerly [facility] Physician GroupComment on above:Performed By: #### CMP, CBC ####[place] [id number] USAHematocrit (Bld) [Volume fraction]24.2 %Low34.0-46.4The Formerly [facility] Hospital Physician GroupComment on above:Performed By: #### CMP, CBC ####[place] [address] USAHemoglobin (Bld) [Mass/Vol]8.2 g/dLLow 11.8-15.4The Formerly [facility] Hospital Physician GroupComment on above:Performed By: #### CMP, CBC ####[place] [address] [place] Lymphocytes (Bld) [#/Vol]1.5 10*3/uLNormal1.00-4.8The [facility] Comment on above:Performed By: #### CMP, CBC ####[place] [address] USALymphocytes/100 WBC (Bld)14.6 %Normal. The Formerly [facility] Hospital Physician GroupComment on above:Performed By: #### CMP, CBC ####[address] StreetMCH (RBC) [Entitic mass]32.6 ocBhmqck48.7-34.3The Formerly [facility] Physician GroupComment on above:Performed By: #### CMP, CBC ####[address]MCV (RBC) [Entitic vol]96.1 oAUcryjw07-469Vzk Formerly [facility] Physician GroupComment on above:Performed By: #### CMP, CBC ####[place] [address] USAMean Corpuscular HGB Conc33.9 g/oIPvsqko47.0-35.0The Formerly [facility] Physician GroupComment on above:Performed By: #### CMP, CBC ####[place] [address] USAMonocytes (Bld) [#/Vol]1.2 10*3/uLHigh0.0-0.8 The Formerly [facility] Physician GroupComment on above:Performed By: #### CMP, CBC ####[place] [address] [place] Monocytes/100 WBC (Bld)12.5 %Normal.The Formerly [facility] Physician GroupComment on above:Performed By: #### CMP, CBC ####[place] [address] USANeutrophils (Bld) [#/Vol]6.9 10*3/uLNormal1.8-7.7The Formerly [facility] Physician GroupComment on above:Performed By: #### CMP, CBC ####[place] [address] [place] Neutrophils/100 WBC (Bld)69.2 %Normal.The Former[facility] Physician GroupComment on above:Performed By: #### CMP, CBC ####[place] [address] USANRBC%0.0 /100{WBC}Normal0-0.5The Formerly [facility] Physician GroupComment on above:Performed By: #### CMP, CBC ####[place] [address] USAPlatelet mean volume (Bld) [Entitic vol]7.7 fLNormal6.3-10.7The Formerly [facility] Physician GroupComment on above: Performed By: #### CMP, CBC ####[place] [address] USAPlatelets (Bld) [#/Vol]259 10*3/tFZarqsh668-878Orn Formerly [facility] Physician GroupComment on above:Performed By: #### CMP, CBC ####[place] [address] USARBC (Bld) [#/Vol]2.52 10*6/uLLow3.60-5.00The Formerly [facility] Physician GroupComment on above:Performed By: #### CMP, CBC ####[place] [address] USAWBC (Bld) [#/Vol]10.0 10*3/uLNormal3.8-11.6The Formerly [facility] Physician GroupComment on above:Performed By: #### CMP, CBC ####[address] [address] [facility] Comprehensive Metabolic Panelon 19-15-3081Quzazau [Mass/Vol]3.5 g/dLNormal 3.5-5.7The Formerly [facility] Physician GroupComment on above:Performed By: #### CMP, CBC ####[address] [address] [facility] Albumin/Globulin [Mass ratio]1.1 {ratio}NormalThe [facility]ly [facility] Comment on above:Performed By: #### CMP, CBC ####[address] [address] USAALP [Catalytic activity/Vol]94 U/L Vpdogc47-373Lar Formerly [facility] Physician GroupComment on above:Result Comment: PERFORMED BY:[place] [address] [address] [place], [place] [phone] MEDICAL DIRECTORALTHEA MEADOWS M.D. Performed By: #### CMP, CBC ####[address] [address] USAALT [Catalytic activity/Vol]19 U/LNormal7-52The Formerly [facility] Physician GroupComment on above:Performed By: #### CMP, CBC ####[address] [address] USAAnion gap [Moles/Vol]13.4 mmol/LNormal6.0-15.0The Formerly [facility] Physician GroupComment on above:Performed By: #### CMP, CBC ####[address] [address] USAAST [Catalytic activity/Vol]17 U/ZPxojpd12-26Bgt Formerly [facility] Physician GroupComment on above:Performed By: #### CMP, CBC ####[address] [address] [place] Bilirubin [Mass/Vol]0.5 mg/dLNormal0.3-1.0The Formerly [facility] Physician GroupComment on above:Performed By: #### CMP, CBC ####[address] [address] USACalcium [Mass/Vol]9.5 mg/dLNormal8.6-10.3The Formerly [facility] Physician GroupComment on above:Performed By: #### CMP, CBC ####[place] [address] [place] Chloride [Moles/Vol]102 mmol/LVeppbk24-187Kqa Formerly [facility] Physician GroupComment on above:Performed By: #### CMP, CBC ####[place] [address] USACO2 [Moles/Vol]24.5 mmol/WYdyeuf65.0-31.0The Formerly [facility] Physician GroupComment on above:Performed By: #### CMP, CBC ####[place] [address] [place] Creatinine [Mass/Vol]0.87 mg/dLNormal0.60-1.20The [facility] Comment on above:Performed By: #### CMP, CBC ####[place] [address] USAGFR/1.73 sq M.predicted MDRD (S/P/Bld) [Vol rate/Area]mL/min/{1.73_m2}NormalThe Formerly [facility] Physician GroupComment on above:Performed By: #### CMP, CBC ####[place] [address] USAGlobulin (S) [Mass/Vol]3.1 g/dLNormalThe Formerly [facility] Physician GroupComment on above:Performed By: #### CMP, CBC ####[place] [address] USAGlucose [Mass/Vol]127 mg/jWKdmp47-136Ora Formerly [facility] Physician GroupComment on above:Result Comment: Random Glucose Reference Range is dependent on time and content of last meal. Glucose of more than 200 mg/dL in a nonstressed, ambulatory subject supports the diagnosis of Diabetes Mellitus. ADA recommended reference rangePerformed By: #### CMP, CBC ####[place] [address] USAPotassium [Moles/Vol]3.9 mmol/LNormal3.5-5.1The Former[facility] Physician GroupComment on above:Performed By: #### CMP, CBC ####[facility] [address] [place] [address] USAProtein [Mass/Vol]6.6 g/dLNormal 6.4-8.9The Formerly [facility] Physician GroupComment on above:Performed By: #### CMP, CBC ####[facility] [address] [place] [address] USASodium [Moles/Vol]136 mmol/FNyqhix600-297Cxk Former[facility] Physician GroupComment on above:Performed By: #### CMP, CBC ####[facility] [address] [place] [address] USAUrea nitrogen [Mass/Vol]12 mg/dLNormal7-25The Formerly [facility] Physician GroupComment on above:Performed By: #### CMP, CBC ####[facility] [address] [place] [address] [place] Creatinine [Mass/volume] in Serum or PlasmaOrdered By: Roshan Reynoso on 80-55-0066Putmhfwlbo [Mass/Vol]Creatinine [Mass/volume] in Serum or Plasma 0.60-1.20[facility], AvonEosinophils Auto (Bld) [#/Vol]Ordered By: Roshan Reynoso on 05-30-1172Xzgcsrzovgw (Bld) [#/Vol]Automated eosinophil count0.0-0.45[facility], AvonEosinophils/100 WBC Auto (Bld) Ordered By: Roshan Reynoso on 65-46-5422Xzlnvjybrfe/100 WBC (Bld)Automated eosinophil %.[facility], AvonErythrocyte distribution width Auto (RBC) [Ratio]Ordered By: Roshan Reynoso on 78-24-6179Fvjeenwjcsp distribution width (RBC) [Ratio]Erythrocyte distribution width [Ratio] by Automated euntiJoxk46.9-15.3FCincinnati Children's Hospital Medical CenterGlobulin Calc (S) [Mass/Vol]Ordered By: Roshan Reynoso on 39-56-8949Fnwpmhto (S) [Mass/Vol]Serum globulin measurement by calculation (mass/volume)[facility], AvonGlucose [Mass/volume] in Serum or PlasmaOrdered By: Roshan Reynoso on 18-73-9474Onemvrh [Mass/Vol]Glucose [Mass/volume] in Serum or LqadusKbnl35-870 [facility], AvonComment on above:ADA recommended reference rangeRandom Glucose Reference Range is dependent on time and content of last meal. Glucose of more than 200 mg/dL in a nonstressed, ambulatory subject supports the diagnosisof Diabetes Mellitus.Hematocrit Auto (Bld) [Volume fraction]Ordered By: Roshan Reynoso on 75-24-6457Qiaewelqtd (Bld) [Volume fraction]Hematocrit [Volume Fraction] of Blood by Automated kmtoqKaf89.0-46.4 [facility], AvonHemoglobin [Mass/volume] in BloodOrdered By: Roshan Reynoso on 76-81-0476Ytguiczlng (Bld) [Mass/Vol]Hemoglobin [Mass/volume] in EmnnaMtp52.8-15.4FCincinnati Children's Hospital Medical CenterLeukocytes [#/volume] corrected for nucleated erythrocytes in Blood by Automated counOrdered By: Roshan Reynoso on 23-00-0682LMY corrected for nucl RBC Auto (Bld) [#/Vol] Leukocytes [#/volume] corrected for nucleated erythrocytes in Blood by Automated coun3.8-11.6FCincinnati Children's Hospital Medical CenterLymphocytes Auto (Bld) [#/Vol] Ordered By: Roshan Reynoso on 79-18-1851Ymetpepaxol (Bld) [#/Vol]Lymphocytes [#/volume] in Blood by Automated count1.00-4.8[facility] [place] Lymphocytes/100 WBC Auto (Bld)Ordered By: Roshan Reynoso on 10-07-2024 Lymphocytes/100 WBC (Bld)Lymphocytes/100 leukocytes in Blood by Automated count. [facility], AvonMCH Auto (RBC) [Entitic mass]Ordered By: Roshan Reynoso on 71-63-4464TRD (RBC) [Entitic mass]MCH [Entitic mass] by Automated count24.7-34.3FCincinnati Children's Hospital Medical CenterMCHC Auto (RBC) [Mass/Vol]Ordered By: Roshan Reynoso on 26-46-4673CONF (RBC) [Mass/Vol]MCHC [Mass/volume] by Automated count32.0-35.0[facility], AvonMCV Auto (RBC) [Entitic vol]Ordered By: Roshan Reynoso on 07-48-1924DHM (RBC) [Entitic vol]MCV [Entitic volume] by Automated sacjs97-657UtlyoclqhSelect Medical Cleveland Clinic Rehabilitation Hospital, AvonMonocytes Auto (Bld) [#/Vol]Ordered By: Roshan Reynoso on 25-94-0321Rmdusozex (Bld) [#/Vol]Automated blood monocyte countHigh0.0-0.8 [facility], AvonMonocytes/100 WBC Auto (Bld)Ordered By: Roshan Reynoso on 55-68-0289Ksoclouoz/100 WBC (Bld)Automated monocyte %.[facility], AvonNeutrophils Auto (Bld) [#/Vol]Ordered By: Roshan Reynoso on 75-55-4845Gczeznooxhn (Bld) [#/Vol]Neutrophils [#/volume] in Blood by Automated count1.8-7.7FCincinnati Children's Hospital Medical CenterNeutrophils/100 WBC Auto (Bld)Ordered By: Roshan Reynoso on 36-64-2973Tecykuijqfm/100 WBC (Bld)Automated neutrophil %.[facility], AvonNo Panel InformationOrdered By: Roshan Reynoso on 64-38-2111Hzxwzrdcu GFR (CKD-EPI)> 60.0 mL/MinSelect Medical [facility] Clinic Rehabilitation Hospital, AvonPharmacy Creatinine Clearance (ChemN/AFCincinnati Children's Hospital Medical CenterNucleated erythrocytes [Presence] in Blood by Automated count Ordered By: Roshan Reynoso on 00-32-9563Tauhgjkye RBC Auto Ql (Bld)Nucleated erythrocytes [Presence] in Blood by Automated count0-0.5FCincinnati Children's Hospital Medical CenterPlatelet mean volume Auto (Bld) [Entitic vol]Ordered By: Roshan Reynoso on 71-53-7853Msojdbca mean volume (Bld) [Entitic vol]Platelet mean volume [Entitic volume] in Blood by Automated count6.3-10.7FCincinnati Children's Hospital Medical CenterPlatelets Auto (Bld) [#/Vol]Ordered By: Roshan Reynoso on 10-07-2024 Platelets (Bld) [#/Vol]Platelets [#/volume] in Blood by Automated dkgac988-958 [facility], AvonPotassium [Moles/volume] in Serum or Plasma Ordered By: Roshan Reynoso on 04-53-0986Hknirkhmo [Moles/Vol]Potassium [Moles/volume] in Serum or Plasma3.5-5.1FCincinnati Children's Hospital Medical CenterProtein [Mass/volume] in Serum or PlasmaOrdered By: Roshan Reynoso on 08-41-4120Qnwowol [Mass/Vol]Protein [Mass/volume] in Serum or Plasma6.4-8.9[facility], AvonRBC Auto (Bld) [#/Vol]Ordered By: Roshan Reynoso on 05-96-6106GBB (Bld) [#/Vol]Erythrocytes [#/volume] in Blood by Automated countLow3.60-5.00 [facility] Cincinnatierum or plasma albumin/globulin mass ratio Ordered By: Roshan Reynoso on 02-88-1114Xrtssak/Globulin [Mass ratio]Serum or plasma albumin/globulin mass ratioSelect Medical Specialty Hospital - Cincinnatierum or plasma anion gap determinationOrdered By: Roshan Reynoso on 58-16-6190Beztx gap [Moles/Vol]Serum or plasma anion gap determination6.0-15.0[facility]atiodium [Moles/volume] in Serum or PlasmaOrdered By: Roshan Reynoso on 32-19-7088Agruzi [Moles/Vol]Sodium [Moles/volume] in Serum or Uirbtn772-594 [facility] AvonUrea nitrogen [Mass/volume] in Serum or Plasma Ordered By: Roshan Reynoso on 13-72-0961Ilde nitrogen [Mass/Vol]Urea nitrogen [Mass/volume] in Serum or Plasma7-25[facility], AvonWBC Auto (Bld) [#/Vol]Ordered By: Roshan Reynoso on 15-17-4035QJN (Bld) [#/Vol]Leukocytes [#/volume] in Blood by Automated count3.8-11.6FCincinnati Children's Hospital Medical Center Alanine aminotransferase [Enzymatic activity/volume] in Serum or PlasmaOrdered By: Kush Glez on 23-07-5477GSR [Catalytic activity/Vol]Alanine aminotransferase [Enzymatic activity/volume] in Serum or Plasma7-52[facility] AvonAlbumin [Mass/volume] in Serum or Plasma by Bromocresol green (BCG) dye binding methoOrdered By: Kush Glez on 14-37-8598Pjcqxqr BCG dye [Mass/Vol]Albumin [Mass/volume] in Serum or Plasma by Bromocresol green (BCG) dye binding metho3.5-5.7FCincinnati Children's Hospital Medical CenterAlkaline phosphatase [Enzymatic activity/volume] in Serum or PlasmaOrdered By: Kush Hooker on 56-43-0289SLV [Catalytic activity/Vol]Alkaline phosphatase [Enzymatic activity/volume] in Serum or Kepgsm40-652YottveziySelect Medical [facility] [place] Anisocytosis LM Ql (Bld)Ordered By: Kush Glez on 34-43-8165Fpiwpgvdnasl Ql (Bld)Anisocytosis [Presence] in Blood by Light microscopySelect Medical [facility], AvonAnisocytosis [Presence] in Blood by Light microscopyOrdered By: tara Glez on 70-19-8989Cjykbacaeqtm Ql (Bld)ModerateNormalSelect Medical [facility] Hospital, AvonComment on above:Performed By: #### SCAN CBC, CMP ####[facility] [id number] Aspartate aminotransferase [Enzymatic activity/volume] in Serum or PlasmaOrdered By: Kush Glez on 83-72-0603HDU [Catalytic activity/Vol]Aspartate aminotransferase [Enzymatic activity/volume] in Serum or Finjeq13-64JoswhwrgcSelect Medical [facility], AvonBasophils Auto (Bld) [#/Vol]Ordered By: Kush Glez on 59-65-9812Bwdhdogqk (Bld) [#/Vol]Automated basophil count0.0-0.2FCincinnati Children's Hospital Medical CenterBasophils/100 WBC Auto (Bld)Ordered By: tara Glez on 62-23-6936Wcsmirrsr/100 WBC (Bld)Automated basophil %.[facility], AvonBilirubin.total [Mass/volume] in Serum or PlasmaOrdered By: tara Glez on 81-12-4111Zrpegfjfo [Mass/Vol]Bilirubin.total [Mass/volume] in Serum or Plasma0.3-1.0[facility] AvonCalcium [Mass/volume] in Serum or PlasmaOrdered By: tara Glez on 91-79-9059Gxghvof [Mass/Vol]Calcium [Mass/volume] in Serum or Plasma8.6-10.3FCincinnati Children's Hospital Medical CenterCarbon dioxide, total [Moles/volume] in Serum or PlasmaOrdered By: Kush Glez on 64-95-8354SK6 [Moles/Vol]Carbon dioxide, total [Moles/volume] in Serum or Plasma 21.0-31.0[facility], AvonChloride [Moles/volume] in Serum or PlasmaOrdered By: tara Glez on 48-45-3079Uijegpfg [Moles/Vol]Chloride [Moles/volume] in Serum or Jelygr33-614AslvxnrsaSelect Medical [facility] Comprehensive Metabolic Panelon 25-11-3491Pfmmxpf [Mass/Vol]3.6 g/dLNormal 3.5-5.7The [facility] Physician GroupComment on above:Performed By: #### SCAN CBC, CMP ####[place] [id number] USAAlbumin/Globulin [Mass ratio]1.1 {ratio}NormalThe Formerly [facility] Comment on above:Performed By: #### SCAN CBC, CMP ####[place] [id number] USAALP [Catalytic activity/Vol]102 U/L Xisoqh89-371Trg [facility] Physician [facility] Care SystemComment on above:Performed By: #### SCAN CBC, CMP ####[place] [id number] USAALT [Catalytic activity/Vol]40 U/LNormal7-52The [facility] Physician [facility] SystemComment on above:Performed By: #### SCAN CBC, CMP ####[place] [id number] USAAnion gap [Moles/Vol]12.5 mmol/LNormal6.0-15.0The [facility] Physician [facility] Care SystemComment on above:Performed By: #### SCAN CBC, CMP ####[place] [id number] USAAST [Catalytic activity/Vol]33 U/ENknniw68-77Hmh [facility] Physician [facility] Care SystemComment on above:Performed By: #### SCAN CBC, CMP ####[address] [address] USABilirubin [Mass/Vol]0.5 mg/dL Normal0.3-1.0The [facility] Physician [facility] Care SystemComment on above:Performed By: #### SCAN CBC, CMP ####[place] [address] USACalcium [Mass/Vol]9.3 mg/dLNormal8.6-10.3The [facility] Comment on above:Performed By: #### SCAN CBC, CMP ####[place] [address] USAChloride [Moles/Vol]105 mmol/LNormal 98-107The [facility] Physician [facility] SystemComment on above:Performed By: #### SCAN CBC, CMP ####[place] [address] [place] CO2 [Moles/Vol]23.7 mmol/XBbpngv66.0-31.0The Former[facility] Physician GroupComment on above:Performed By: #### SCAN CBC, CMP ####[place] [address] USACreatinine [Mass/Vol]0.74 mg/dLNormal0.60-1.20 The [facility] Physician GroupComment on above:Performed By: #### SCAN CBC, CMP ####[place] [id number] [place] Creatinine Clr Calc Fqwxekdq37.67NormalThe [facility] Physician [facility] Care SystemComment on above:Result Comment: PERFORMED BY:[address] [place], [place] [phone] MEDICAL DIRECTORALTHEA JIMENEZ M.D.Performed By: #### SCAN CBC, CMP ####[place] [id number] USAGFR/1.73 sq M.predicted MDRD (S/P/Bld) [Vol rate/Area]mL/min/{1.73_m2}NormalThe [facility] Physician [facility] SystemComment on above:Performed By: #### SCAN CBC, CMP ####[place] [id number] USAGlobulin (S) [Mass/Vol]3.4 g/dLNormalThe Formerly [facility] Physician GroupComment on above:Performed By: #### SCAN CBC, CMP ####[place] [address] [place] [id number] USAGlucose [Mass/Vol]108 mg/gLFgeq40-353Xpi Former[facility] Physician GroupComment on above: Result Comment: Random Glucose Reference Range is dependent on time and content of last meal. Glucose of more than 200 mg/dL in a nonstressed, ambulatory subject supports the diagnosis of Diabetes Mellitus. ADA recommended reference rangePerformed By: #### SCAN CBC, CMP ####[place] [address] [place] [address] USAPotassium [Moles/Vol]4.2 mmol/LNormal3.5-5.1 The [facility] Physician GroupComment on above:Performed By: #### SCAN CBC, CMP ####[address] [address] USAProtein [Mass/Vol]7.0 g/dLNormal6.4-8.9The [facility] Physician GroupComment on above: Performed By: #### SCAN CBC, CMP ####[address] [address] USASodium [Moles/Vol]137 mmol/EGxyill323-008Pyo [facility] Physician GroupComment on above:Performed By: #### SCAN CBC, CMP ####[address] [address] USAUrea nitrogen [Mass/Vol]14 mg/dLNormal7-25The [facility] Physician GroupComment on above:Performed By: #### SCAN CBC, CMP ####[address] [address] USACreatinine [Mass/volume] in Serum or Plasma Ordered By: Kush Glez on 09-06-1383Hzupoqajjm [Mass/Vol]Creatinine [Mass/volume] in Serum or Plasma0.60-1.20[facility] Eosinophils Auto (Bld) [#/Vol]Ordered By: Kush Glez on 10-03-2024 Eosinophils (Bld) [#/Vol]Automated eosinophil count0.0-0.45[facility] AvonEosinophils/100 WBC Auto (Bld)Ordered By: Kush Glez on 90-86-7624Alvfdfqsnuv/100 WBC (Bld)Automated eosinophil %.[facility], AvonErythrocyte distribution width Auto (RBC) [Ratio]Ordered By: Kush Glez on 97-43-3131Wkuzivsohda distribution width (RBC) [Ratio]Erythrocyte distribution width [Ratio] by Automated pepngRshy08.9-15.3FCincinnati Children's Hospital Medical CenterErythrocyte morphology finding [Identifier] in BloodOrdered By: Kush Glez on 46-99-3868BMG morphology finding Nom (Bld)RBC morphology [facility], AvonRBC morphology finding Nom (Bld)N/[facility] HospitalGlobulin Calc (S) [Mass/Vol]Ordered By: Kush Glez on 06-22-2930Ubxeroqr (S) [Mass/Vol]Serum globulin measurement by calculation (mass/volume)[facility], AvonGlucose [Mass/volume] in Serum or PlasmaOrdered By: Kush Glez on 91-39-3251Novlqvh [Mass/Vol]Glucose [Mass/volume] in Serum or CzufvvUwsh17-561YueztnmbaSelect Medical [facility] Clinic [facility] [place] Comment on above:ADA recommended reference rangeRandom Glucose Reference Range is dependent on time and content of last meal. Glucose of more than 200 mg/dL in a nonstressed, ambulatory subject supports the diagnosisof Diabetes Mellitus. Hematocrit Auto (Bld) [Volume fraction]Ordered By: Kush Glez on 10-03-2024 Hematocrit (Bld) [Volume fraction]Hematocrit [Volume Fraction] of Blood by Automated rkxioQtw44.0-46.4FCincinnati Children's Hospital Medical CenterHemoglobin [Mass/volume] in BloodOrdered By: Kush Glez on 31-80-9331Vtuvslfkvg (Bld) [Mass/Vol]Hemoglobin [Mass/volume] in VbwqpGbc38.8-15.4FCincinnati Children's Hospital Medical CenterLeukocytes [#/volume] corrected for nucleated erythrocytes in Blood by Automated counOrdered By: Kush Glez on 53-90-7925VFL corrected for nucl RBC Auto (Bld) [#/Vol]Leukocytes [#/volume] corrected for nucleated erythrocytes in Blood by Automated coun3.8-11.6FCincinnati Children's Hospital Medical Center Lymphocytes Auto (Bld) [#/Vol]Ordered By: Kush Glez on 10-03-2024 Lymphocytes (Bld) [#/Vol]Lymphocytes [#/volume] in Blood by Automated count 1.00-4.8[facility], AvonLymphocytes/100 WBC Auto (Bld)Ordered By: Kush Glez on 46-00-8451Mltxjyosoio/100 WBC (Bld)Lymphocytes/100 leukocytes in Blood by Automated count.[facility], AvonMCH Auto (RBC) [Entitic mass]Ordered By: Kush Glez on 29-54-5671BSZ (RBC) [Entitic mass]MCH [Entitic mass] by Automated count24.7-34.3FCincinnati Children's Hospital Medical CenterMCHC Auto (RBC) [Mass/Vol]Ordered By: Kush Glez on 52-43-7877DJIX (RBC) [Mass/Vol]MCHC [Mass/volume] by Automated count32.0-35.0[facility], AvonMCV Auto (RBC) [Entitic vol]Ordered By: Kush Glez on 99-23-7336UMC (RBC) [Entitic vol]MCV [Entitic volume] by Automated vfapq36-195 [facility], AvonMonocytes Auto (Bld) [#/Vol]Ordered By: Kush Hooker on 37-06-9037Jgaiqlqnd (Bld) [#/Vol]Automated blood monocyte countHigh 0.0-0.8[facility], AvonMonocytes/100 WBC Auto (Bld)Ordered By: Kush Glez on 84-59-9918Ypuagmubw/100 WBC (Bld)Automated monocyte %. [facility], AvonNeutrophils Auto (Bld) [#/Vol]Ordered By: Kush Glez on 95-49-2624Jehkzbumfwb (Bld) [#/Vol]Neutrophils [#/volume] in Blood by Automated count1.8-7.7FCincinnati Children's Hospital Medical CenterNeutrophils/100 WBC Auto (Bld)Ordered By: Kush Glez on 83-49-6963Fkonhtrbhry/100 WBC (Bld) Automated neutrophil %.[facility], AvonNo Panel Information Ordered By: Kush Glez on 98-91-3315Litdgpzhf GFR (CKD-EPI)> 60.0 mL/Min [facility] AvonPharmacy Creatinine Clearance (Chem75.67 [facility], AvonNucleated erythrocytes [Presence] in Blood by Automated countOrdered By: Kush Glez on 87-96-1984Cinntwazn RBC Auto Ql (Bld)Nucleated erythrocytes [Presence] in Blood by Automated count0-0.5FCincinnati Children's Hospital Medical CenterOvalocytes [Presence] in Blood by Light microscopy Ordered By: Kush Glez on 94-33-9597Rppmroygcl LM Ql (Bld)Ovalocyte detectionSelect Medical Cleveland Clinic Rehabilitation Hospital, AvonOvalocytes LM Ql (Bld)Moderate [facility] AvonPlatelet adequacy [Presence] in Blood by Light microscopyOrdered By: Kush Glez on 86-87-7957Oldtaxzwa LM Ql (Bld)Platelet adequacy [Presence] in Blood by Light microscopyNoOhioHealthPlatelets LM Ql (Bld)NormalNoOhioHealth Platelet mean volume Auto (Bld) [Entitic vol]Ordered By: Kush Glez on 06-23-1088Kokfcdtp mean volume (Bld) [Entitic vol]Platelet mean volume [Entitic volume] in Blood by Automated count6.3-10.7FCincinnati Children's Hospital Medical Center Platelet morphology finding [Identifier] in BloodOrdered By: Kush Glez on 69-15-7154Kmtkeyxa morphology finding Nom (Bld)Platelet morphology finding [Identifier] in BloodNoOhioHealthPlatelet morphology finding Nom (Bld)NormalNoOhioHealthPlatelets Auto (Bld) [#/Vol]Ordered By: Kush Glez on 72-90-6781Kbiyevitf (Bld) [#/Vol] Platelets [#/volume] in Blood by Automated vttno578-679QcvqqnvygSelect Medical Cleveland Clinic Rehabilitation Hospital, AvonPoikilocytosis [Presence] in Blood by Light microscopyOrdered By: Kush Glez on 29-62-2439Uokiqtfyrlywaa LM Ql (Bld)Poikilocytosis [Presence] in Blood by Light microscopySelect Medical Cleveland Clinic Rehabilitation Hospital, AvonPoikilocytosis LM Ql (Bld)ModerateSelect Medical Cleveland Clinic Rehabilitation Hospital, AvonPolychromasia [Presence] in Blood by Light microscopyOrdered By: Kush Glez on 73-29-8953Zrkjpakzpuzni LM Ql (Bld)Polychromasia [Presence] in Blood by Light microscopySelect Medical Cleveland Clinic Rehabilitation Hospital, AvonPolychromasia LM Ql (Bld)SlightUniversity Hospitals St. John Medical Center Healthon 24-03-5824AewpopjkqpWernersville State Hospital Case Information Case Priority: None Programs: -- Referral Source: Inspector Fibrous Wallboard Referral Reason: Care coordination Case Type: Transition Care Management Risk Score: -- Case Status: Enrolled (September 26, 2024) Date Assigned: September 26, 2024 Assigned By: Noah Hester Date Enrolled: September 26, 2024 Assigned Primary Personnel: Noah Hester Assigned Secondary Personnel: -- Case Physician: Michael Holley MD Problems Ongoing Abnormal EKG ADHD Anxiety Breast cancer of lower-inner quadrant of left female breast Complex regional pain syndrome of lower limb Dysuria Essential tremor HTN (hypertension) Hx of osteoarthritis Idiopathic polyneuropathy 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 Intradermal melanocytic nevus Neoplasm of uncertain behavior of skin of back Neoplasm of uncertain behavior of skin of face Poor venous access Pre-op exam Scoliosis Seasonal allergies Historical BMI 23.0-23.9, adult Polyneuropathy RSD lower limb Procedure/Surgical History Insertion of implantable venous access port (07/22/2024), Mastectomy (05/16/2024), Excision of intradermal nevus (02/20/2024), Excision of breast mass (01/10/2024), Biopsy of breast (06/27/2023), Arthroscopy of knee (06/04/1995), Appendectomy, Breast reconstruction, Cholecystectomy, Extraction of wisdom tooth, Foot, Removal of breast implant, Simple dental extraction, DEAN BSO - Total abdominal hysterectomy and bilateral salpingo-oophorectomy, Tonsillectomy and adenoidectomy. Home Medications acetaminophen-oxycodone, See Instructions alprazolam 0.25 mg Tab, See Instructions aspirin 81 mg Oral EC Tab, 81 mg= 1 tab(s), Oral, Daily Augmentin, 875-125 mg, Oral, q12hr cetirizine 10 mg Tab, 10 mg= 1 tab(s), Oral, Daily cyclobenzaprine 10 mg Tab, 10 mg= 1 tab(s), Oral, Bedtime, PRN, 3 refills Flonase 0.05 mg/inh Amalia, 2 spray(s), Nasal, Daily gabapentin 300 mg Cap, 300 mg= 1 cap(s), Oral, TID losartan, 25 mg, Oral, Daily Misc Medication, See Instructions Mucinex, 600 mg, Oral, q12hr, PRN Toprol-XL, 50 mg, Oral, Daily Allergies Entex (Unknown) Skelaxin (Unknown) corticosteroids (Anaphylaxis) Social History Alcohol - Medium Risk, 04/29/2024 Current. Wine, Liquor. 1-2 times per month., 08/06/2024 Substance Abuse Current. Marijuana. Daily. Previous treatment: None., 08/06/2024 Tobacco - Denies Tobacco Use, 04/29/2024 Former smoker, quit more than 30 days ago Tobacco Use:., 08/06/2024 Family History Primary malignant neoplasm of lung: Mother. Screenings and Assessments 09/26/24 10:45:00 Result Name Value Comment Phone Call Monitoring Consent Agreed to continue call Phone Verification Patient Information Full name, street address and date of verified Program Enrollment Provides verbal consent for enrollment Goals and Interventions Care Plan Progress Note TCM#2- Spoke with patient for status update. Patient states she is still weak and tires easily. Patient states she was cleared from HH and PT. Reports cough unchanged (since Jun). Notes she has tried Vicks and a humidifier. Denies fever or chills. Denies any issues with bowel or bladder. Patient repots her appetite is getting better, she drinks ensures and follows a soft diet. Patient drinks lots of water and milk. No change in sleep pattern noted. CN offered OV to patient and declined, states she is not sure she can make it out and has so many other appointments. Telehealth visit to patient and declined. Patient has OV and bloodwork with Dr. Al today and will discuss weakness and fatigue. F/U CT is scheduled 10/07/24. Patient denies any further questions or concerns. Communication Events Date: October 03, 2024 Method: Phone call Type: Outbound Duration (min): 22 Outcome: Case discussion Contact Type: Patient Contact Name: ADELINA MIR Notes: TCM#2- See note. Created By: Noah Hester Date: September 26, 2024 Method: Phone call Type: Outbound Duration (min): 13 Outcome: Case discussion Contact Type: Patient Contact Name: ADELINA MIR Notes: TCM-med review- see note. Created By: Noah Hester Date: September 26, 2024 Method: Phone call Type: Outbound Duration (min): 1 Outcome: Left message-voicemail Contact Type: Patient Contact Name: ADELINA MIR Notes: TCM Med Rec- d/c summary rec'd, message left for pt to return call to review. Created By: Noah Hester Date: September 26, 2024 Method: Phone call Type: Outbound Duration (min): 32 Outcome: Case discussion Contact Type: Patient Contact Name: ADELINA MIR Notes: TCM#1- Called patient for initial TCM status update, see note. Created By: Noah Hester [facility] CenterPotassium [Moles/volume] in Serum or PlasmaOrdered By: Kush Glez on 10-03-2024 Potassium [Moles/Vol]Potassium [Moles/volume] in Serum or Plasma3.5-5.1FCincinnati Children's Hospital Medical CenterProtein [Mass/volume] in Serum or PlasmaOrdered By: Kush Glez on 27-46-8202Dtpnzny [Mass/Vol]Protein [Mass/volume] in Serum or Plasma6.4-8.9[facility], AvonRBC Auto (Bld) [#/Vol]Ordered By: Kush Glez on 21-63-4322ISW (Bld) [#/Vol]Erythrocytes [#/volume] in Blood by Automated countLow3.60-5.00[facility]atican and CBCon 34-04-5652Gvbdbtjpu (d) [#/Vol]0.1 10*3/uLNormal0.0-0.2The [facility] Physician GroupComment on above:Performed By: #### SCAN CBC, CMP ####[place] [address] USABasophils/100 WBC (Bld)0.9 % Normal.The [facility] Physician GroupComment on above:Performed By: #### SCAN CBC, CMP ####[place] [address] USAEosinophils (Bld) [#/Vol]0.0 10*3/uLNormal0.0-0.45The [facility]ly [facility] Physician GroupComment on above:Performed By: #### SCAN CBC, CMP ####[place] [address] USAEosinophils/100 WBC (Bld)0.4 % Normal.The [facility] Physician GroupComment on above:Performed By: #### SCAN CBC, CMP ####[place] [address] USAErythrocyte distribution width (RBC) [Ratio]16.5 %High11.9-15.3The [facility] Physician GroupComment on above:Performed By: #### SCAN CBC, CMP ####[place] [address] USAHematocrit (Bld) [Volume fraction]26.6 %Low34.0-46.4The [facility] Physician GroupComment on above:Performed By: #### SCAN CBC, CMP ####[place] [address] USAHemoglobin (Bld) [Mass/Vol]8.9 g/dLLow 11.8-15.4The [facility]ly [facility] Physician GroupComment on above:Performed By: #### SCAN CBC, CMP ####[place] [address] USALymphocytes (Bld) [#/Vol]1.7 10*3/uLNormal1.00-4.8The [facility] Physician GroupComment on above:Performed By: #### SCAN CBC, CMP ####[address] [address] USALymphocytes/100 WBC (Bld)17.1 %Normal.The [facility] Physician GroupComment on above:Performed By: #### SCAN CBC, CMP ####[address] [address] [facility] EL[facility] CITYH (RBC) [Entitic mass]32.1 gwZxpwqj35.7-34.3The [facility] Comment on above:Performed By: #### SCAN CBC, CMP ####[address] [address] [facility] EL[facility] CITYV (RBC) [Entitic vol]95.7 fLNormal 80-100The Formerly [facility] Physician GroupComment on above:Performed By: #### SCAN CBC, CMP ####[place] [id number] [place] Mean Corpuscular HGB Conc33.5 g/cQUrdqkb61.0-35.0The [facility] Comment on above:Performed By: #### SCAN CBC, CMP ####[address] [address] USAMonocytes (Bld) [#/Vol]1.2 10*3/uLHigh 0.0-0.8The [facility] Physician GroupComment on above:Performed By: #### SCAN CBC, CMP ####[address] [address] USAMonocytes/100 WBC (Bld)12.5 %Normal.The [facility] Physician GroupComment on above:Performed By: #### SCAN CBC, CMP ####[address] [address] USANeutrophils (Bld) [#/Vol]6.8 10*3/uLNormal 1.8-7.7The Formerly [facility] Physician GroupComment on above:Performed By: #### SCAN CBC, CMP ####[address] [address] USANeutrophils/100 WBC (Bld)69.1 %Normal.The [facility] Physician GroupComment on above:Performed By: #### SCAN CBC, CMP ####[address] [address] USANRBC%0.1 /100{WBC}Normal0-0.5The [facility] Physician [facility] Care SystemComment on above:Performed By: #### SCAN CBC, CMP ####[address] [address] USAOvalocytesModerate NormalAdventhealth Tampa Physician [facility] Care SystemComment on above:Performed By: #### SCAN CBC, CMP ####[address] [address] [facility] Platelet EstimateNormalNormalAdventHealth Brandon ER Physician GroupComment on above:Performed By: #### SCAN CBC, CMP ####[address] [address] USAPlatelet mean volume (Bld) [Entitic vol]7.1 fL Normal6.3-10.7The [facility] Physician [facility] Care SystemComment on above:Performed By: #### SCAN CBC, CMP ####[address] [address] USAPlatelet MorphologyNormalNormalAdventHealth Brandon ER Physician [facility] Comment on above:Result Comment: PERFORMED BY:[address] [place], [place] [phone] MEDICAL DIRECTORALTHEA MEADOWS M.D.Performed By: #### SCAN CBC, CMP ####[address] [address] [place] Platelets (Bld) [#/Vol]321 10*3/oPZnputg547-557Aah [facility] Physician [facility] Comment on above:Performed By: #### SCAN CBC, CMP ####[address] [address] USAPoikilocytosisModerateNoFormerly [facility] Physician [facility] Care SystemComment on above:Performed By: #### SCAN CBC, CMP ####[address] [address] [facility] PolychromasiaSlightAdventHealth Brandon ER Physician GroupComment on above:Performed By: #### SCAN CBC, CMP ####[facility] [id number] [place] [address] USARBC (Bld) [#/Vol]2.78 10*6/uLLow3.60-5.00The Formerly [facility] Physician GroupComment on above:Performed By: #### SCAN CBC, CMP ####[facility] [id number] [place] [id number] USAWBC (Bld) [#/Vol]9.8 10*3/uLNormal3.8-11.6The [facility] Physician GroupComment on above:Performed By: #### SCAN CBC, CMP ####[facility] [id number] [place] [id number] USASerum or plasma albumin/globulin mass ratio Ordered By: Kush Glez on 29-96-7467Hducitz/Globulin [Mass ratio]Serum or plasma albumin/globulin mass ratioSelect Medical Specialty Hospital - Cincinnatierum or plasma anion gap determinationOrdered By: Kush Glez on 49-72-9364Tklsk gap [Moles/Vol]Serum or plasma anion gap determination6.0-15.0Select [facility] Hospital - Cincinnatiodium [Moles/volume] in Serum or PlasmaOrdered By: Kush Glez on 94-07-0554Cnwcju [Moles/Vol]Sodium [Moles/volume] in Serum or Ztlpel778-035 [facility], AvonUrea nitrogen [Mass/volume] in Serum or Plasma Ordered By: Kush Glez on 07-40-6708Pmwo nitrogen [Mass/Vol]Urea nitrogen [Mass/volume] in Serum or Plasma7-25[facility], AvonWBC Auto (Bld) [#/Vol]Ordered By: Kush Glez on 07-98-6482URL (Bld) [#/Vol]Leukocytes [#/volume] in Blood by Automated count3.8-11.6FCincinnati Children's Hospital Medical Center Population Healthon 39-51-5188Wpjwwlpdom [facility] Case Information Case Priority: None Programs: -- Referral Source: Inspector Fibrous Wallboard Referral Reason: Care coordination Case Type: Transition Care Management Risk Score: -- Case Status: Enrolled (September 26, 2024) Date Assigned: September 26, 2024 Assigned By: Noah Hester Date Enrolled: September 26, 2024 Assigned Primary Personnel: Noah Hester Assigned Secondary Personnel: -- Case Physician: Michael Holley MD Problems Ongoing Abnormal EKG ADHD Anxiety Breast cancer of lower-inner quadrant of left female breast Complex regional pain syndrome of lower limb Dysuria Essential tremor HTN (hypertension) Hx of osteoarthritis Idiopathic polyneuropathy 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 Intradermal melanocytic nevus Neoplasm of uncertain behavior of skin of back Neoplasm of uncertain behavior of skin of face Poor venous access Pre-op exam Scoliosis Seasonal allergies Historical BMI 23.0-23.9, adult Polyneuropathy RSD lower limb Procedure/Surgical History Insertion of implantable venous access port (07/22/2024), Mastectomy (05/16/2024), Excision of intradermal nevus (02/20/2024), Excision of breast mass (01/10/2024), Biopsy of breast (06/27/2023), Arthroscopy of knee (06/04/1995), Appendectomy, Breast reconstruction, Cholecystectomy, Extraction of wisdom tooth, Foot, Removal of breast implant, Simple dental extraction, DEAN BSO - Total abdominal hysterectomy and bilateral salpingo-oophorectomy, Tonsillectomy and adenoidectomy. Home Medications alprazolam 0.25 mg Tab, See Instructions aspirin 81 mg Oral EC Tab, 81 mg= 1 tab(s), Oral, Daily cetirizine 10 mg Tab, 10 mg= 1 tab(s), Oral, Daily cyclobenzaprine 10 mg Tab, 10 mg= 1 tab(s), Oral, Bedtime, PRN, 3 refills Flonase 0.05 mg/inh Amalia, 2 spray(s), Nasal, Daily gabapentin 300 mg Cap, 300 mg= 1 cap(s), Oral, TID Hyzaar 12.5 mg-50 mg Tab, 1 tab(s), Oral, Daily, 3 refills Misc Medication, See Instructions Allergies Entex (Unknown) Skelaxin (Unknown) corticosteroids (Anaphylaxis) Social History Alcohol - Medium Risk, 04/29/2024 Current. Wine, Liquor. 1-2 times per month., 08/06/2024 Substance Abuse Current. Marijuana. Daily. Previous treatment: None., 08/06/2024 Tobacco - Denies Tobacco Use, 04/29/2024 Former smoker, quit more than 30 days ago Tobacco Use:., 08/06/2024 Family History Primary malignant neoplasm of lung: Mother. Screenings and Assessments 09/26/24 10:45:00 Result Name Value Comment Phone Call Monitoring Consent Agreed to continue call Phone Verification Patient Information Full name, street address and date of verified Program Enrollment Provides verbal consent for enrollment Goals and Interventions Care Plan Progress Note Admit Date: 09/17/24 [facility] Date of Discharge: 09/25/24 (D/C summary requested) Follow-up appointment scheduled? patient has declined at this time, POV 11/05 (3 month follow up) Did you understand your discharge instructions? yes Are you able to follow them? yes Did you receive new medications? yes- (patient states a ATB, metoprolol, and Tessalon pearls- patient states she can not review medications at this time) Have you filled the Rx's? yes from [facility] Are you taking them as prescribed? yes Are you having difficulty eating or swallowing your pills? no Are you having any stomach upset, diarrhea or constipation? none How are you sleeping? slept well other than a coughing spell Are you having any pain? 'some pain' if gets to 'coughing and hacking,' 'getting ahead of it' and Percocet and cough medicine helps Do you have everything you need at home to care for yourself? yes Do you have Home Health? [facility] Called patient for initial Transitional Care Management Program Call. Readmission risk not available. Reviewed discharge instructions and dx of; pneumonia, immunocompromised. Medications reviewed, medications will need to be reconciled at time of OV. Patient states she is doing better since being home. Notes her appetite is great, however the foods she likes are tasting different d/t chemo. She is drinking lots of water. Patient notes she is sleeping well. States last night she had a coughing spell and once she starts coughing its hard to stop. Notes she the coughing spells cause some chest discomfort. Notes her pain medications and Tessalon pearls do help. Encouraged deep breathing exercise s. Patient denies any SOB or difficulty breathing. Denies any fevers. Notes she is still a bit weak, but better now that she is home. Patient has reached out to Dr. Hurtado's office for refill of Percocet, notes she has 2 pills left. Patient denies any bowel issues. Patient denies any urinary systemissues. Patient has follow up with oncology 10/03/24. She declines to schedule PCP follow up at this time. Medications will need to be reconciled at next OV. *Please note above information obtai (more content not included)...NormalMercy Memorial HospitalAlanine aminotransferase [Enzymatic activity/volume] in Serum or PlasmaOrdered By: Tyree Rdz on 36-76-4731JKI [Catalytic activity/Vol]Alanine aminotransferase [Enzymatic activity/volume] in Serum or PlasmaHigh7-52[facility], AvonAlbumin [Mass/volume] in Serum or Plasma by Bromocresol green (BCG) dye binding methoOrdered By: Tyree Rdz on 64-71-8870Rwxzwar BCG dye [Mass/Vol]Albumin [Mass/volume] in Serum or Plasma by Bromocresol green (BCG) dye binding methoLow3.5-5.7FCincinnati Children's Hospital Medical CenterAlkaline phosphatase [Enzymatic activity/volume] in Serum or Plasma Ordered By: Tyree Rdz on 80-68-1202KIB [Catalytic activity/Vol]Alkaline phosphatase [Enzymatic activity/volume] in Serum or IsculsWsud59-311JqwqjkobaSelect Medical [facility] Clinic [facility] Hospital, AvonAnisocytosis LM Ql (Bld)Ordered By: Tyree Rdz on 79-30-9634Oalqwlxqgkpa Ql (Bld)Anisocytosis [Presence] in Blood by Light microscopySelect Medical [facility] Clinic [facility] Hospital, AvonAspartate aminotransferase [Enzymatic activity/volume] in Serum or PlasmaOrdered By: Tyree Rdz on 86-55-7958KZA [Catalytic activity/Vol]Aspartate aminotransferase [Enzymatic activity/volume] in Serum or UjcdgsVwrp89-48HslkoepwoSelect Medical [facility], AvonBand form neutrophils/100 WBC Manual cnt (Bld)Ordered By: Tyree Rdz on 2024 Band form neutrophils/100 WBC (Bld)Peripheral white blood cell differential % bands, microscopic exam0-5FCincinnati Children's Hospital Medical CenterBasophils Auto (Bld) [#/Vol]Ordered By: Tyree Rdz on 46-02-2625Motultktu (Bld) [#/Vol]Automated basophil countSelect Medical Cleveland Clinic Rehabilitation Hospital, AvonBasophils/100 WBC Auto (Bld) Ordered By: Tyree Rdz on 04-83-4429Isnfcvgcm/100 WBC (Bld)Automated basophil %[facility], AvonBilirubin.total [Mass/volume] in Serum or PlasmaOrdered By: Tyree Rdz on 25-76-1835Estxyujba [Mass/Vol] Bilirubin.total [Mass/volume] in Serum or Plasma0.3-1.0[facility], AvonCalcium [Mass/volume] in Serum or PlasmaOrdered By: Tyree Rdz on 76-58-7870Ooydvdr [Mass/Vol]Calcium [Mass/volume] in Serum or Plasma Low8.6-10.3FCincinnati Children's Hospital Medical CenterCarbon dioxide, total [Moles/volume] in Serum or PlasmaOrdered By: Tyree Rdz on 22-21-9138RM8 [Moles/Vol] Carbon dioxide, total [Moles/volume] in Serum or Nvjsbo77.0-31.0[facility], AvonChloride [Moles/volume] in Serum or PlasmaOrdered By: Tyree Rdz on 12-38-7390Vdlnlnjg [Moles/Vol]Chloride [Moles/volume] in Serum or Bklhtb93-997AtbhtfvqbSelect Medical [facility] Clinic Rehabilitation Hospital, AvonComprehensive Metabolic Panelon 80-15-9516Jjvykwf [Mass/Vol]2.9 g/dLLow3.5-5.7The [facility] Physician GroupComment on above:Performed By: #### DIFF CBC, CMP ####[facility] [address] [place] [address] USAAlbumin/Globulin [Mass ratio] 1.0 {ratio}NormalThe [facility]ly [facility] Physician GroupComment on above:Performed By: #### DIFF CBC, CMP ####[facility] [id number] [place] [address] USAALP [Catalytic activity/Vol]129 U/UQxup36-459Yvs [facility] Physician GroupComment on above:Performed By: #### DIFF CBC, CMP ####[facility] [place] [address] USAALT [Catalytic activity/Vol] 118 U/LHigh7-52The [facility] Physician GroupComment on above:Performed By: #### DIFF CBC, CMP ####[address] [place] [address] USAAnion gap [Moles/Vol]10.2 mmol/LNormal6.0-15.0The [facility] Physician GroupComment on above:Performed By: #### DIFF CBC, CMP ####[address] [place] [address] USAAST [Catalytic activity/Vol] 138 U/WXccv53-54Pqz [facility] Physician [facility] Care SystemComment on above:Performed By: #### DIFF CBC, CMP ####[address] [place] [address] USABilirubin [Mass/Vol]0.5 mg/dLNormal0.3-1.0The [facility] Physician [facility] Comment on above:Performed By: #### DIFF CBC, CMP ####[address] [address] USACalcium [Mass/Vol]8.5 mg/dLLow 8.6-10.3The [facility] Physician GroupComment on above:Performed By: #### DIFF CBC, CMP ####[address] [address] USAChloride [Moles/Vol]103 mmol/GVfcyft13-550Kyk [facility] Physician [facility] Comment on above:Performed By: #### DIFF CBC, CMP ####[address] [address] USACO2 [Moles/Vol]26.9 mmol/LNormal 21.0-31.0The [facility] Physician GroupComment on above:Performed By: #### DIFF CBC, CMP ####[address] [address] USACreatinine [Mass/Vol]0.62 mg/dLNormal0.60-1.20The [facility] Physician [facility] Comment on above:Performed By: #### DIFF CBC, CMP ####[address] [place] [address] USACreatinine Clr Calc Zqyihutr95.44 NormalThe Formerly [facility] Physician GroupComment on above:Result Comment: PERFORMED BY:[address] [place], [place] [phone] MEDICAL ANGELA MEADOWS M.D.Performed By: #### DIFF CBC, CMP ####[address] [address] USAGFR/1.73 sq M.predicted MDRD (S/P/Bld) [Vol rate/Area]mL/min/{1.73_m2} NormalThe [facility] Physician GroupComment on above:Performed By: #### DIFF CBC, CMP ####[address] [address] [place] Globulin (S) [Mass/Vol]3.0 g/dLNormalThe [facility] Physician GroupComment on above:Performed By: #### DIFF CBC, CMP ####[address] [address] USAGlucose [Mass/Vol]92 mg/xTImwkci72-913Fql [facility] Physician GroupComment on above:Result Comment: Random Glucose Reference Range is dependent on time and content of last meal. Glucose of more than 200 mg/dL in a nonstressed, ambulatory subject supports the diagnosis of Diabetes Mellitus. ADA recommended reference rangePerformed By: #### DIFF CBC, CMP ####[address] [address] [place] Potassium [Moles/Vol]4.1 mmol/LNormal3.5-5.1The [facility] Physician GroupComment on above:Performed By: #### DIFF CBC, CMP ####[address] [address] USAProtein [Mass/Vol]5.9 g/dLLow6.4-8.9 The [facility] Physician GroupComment on above:Performed By: #### DIFF CBC, CMP ####[address] [address] USASodium [Moles/Vol]136 mmol/ZPmockn080-640Sdl [facility] Physician GroupComment on above: Performed By: #### DIFF CBC, CMP ####[place] [address] USAUrea nitrogen [Mass/Vol]10 mg/dLNormal7-25The [facility] Physician GroupComment on above:Performed By: #### DIFF CBC, CMP ####[place] [address] [place] Creatinine [Mass/volume] in Serum or PlasmaOrdered By: Tyree Rdz on 88-12-5367Ffladgpkwf [Mass/Vol]Creatinine [Mass/volume] in Serum or Plasma 0.60-1.20[facility] and CBCon 59-09-7230Lvkafwgfrfrw Ql (Bld)SlightNormalThe [facility] Physician [facility] Care SystemComment on above:Performed By: #### DIFF CBC, CMP ####[place] [address] USABand form neutrophils/100 WBC (Bld)5 %Normal0-5The [facility] Physician [facility] Care SystemComment on above:Performed By: #### DIFF CBC, CMP ####[place] [address] USAErythrocyte distribution width (RBC) [Ratio]14.8 %Hmgekf02.9-15.3The [facility] Physician [facility] Care SystemComment on above:Performed By: #### DIFF CBC, CMP ####[place] [address] USAHematocrit (Bld) [Volume fraction]22.7 %Low34.0-46.4The [facility] Physician [facility] Care SystemComment on above: Performed By: #### DIFF CBC, CMP ####[place] [address] USAHemoglobin (Bld) [Mass/Vol]7.4 g/dLLow11.8-15.4The [facility] Physician [facility] Care SystemComment on above:Performed By: #### DIFF CBC, CMP ####[place] [address] [place] Lymphocytes/100 WBC (Bld)3 %Oba41-16Ygt [facility] Physician GroupComment on above:Performed By: #### DIFF CBC, CMP ####[address] (RBC) [Entitic mass]30.0 sfCnwmqn04.7-34.3 [facility] Physician GroupComment on above:Performed By: #### DIFF CBC, CMP ####[address] (RBC) [Entitic vol]91.5 uCKttlso54-168Yuz [facility] Physician GroupComment on above:Performed By: #### DIFF CBC, CMP ####[place] [address] USAMean Corpuscular HGB Conc32.8 g/dLNormal 32.0-35.0The [facility] Physician GroupComment on above:Performed By: #### DIFF CBC, CMP ####[place] [address] USAMetamyelocytes3 %High0-0The [facility] Physician GroupComment on above: Performed By: #### DIFF CBC, CMP ####[place] [address] USAMonocytes/100 WBC (Bld)4 %Normal2-11The [facility] Physician GroupComment on above:Performed By: #### DIFF CBC, CMP ####[place] [address] USAMyelocytes4 %High0-0 The [facility] Physician GroupComment on above:Performed By: #### DIFF CBC, CMP ####[place] [address] [place] Nucleated Red Blood Cell1 /100{WBC}High0-0The [facility] Physician GroupComment on above:Performed By: #### DIFF CBC, CMP ####[place] [address] USAOvalocytesSlightNormalThe [facility] Physician GroupComment on above:Performed By: #### DIFF CBC, CMP ####[address] [address] USAPlatelet EstimateNormalNormal NormalAdventhealth Tampa Physician GroupComment on above:Performed By: #### DIFF CBC, CMP ####[address] [address] [place] Platelet mean volume (Bld) [Entitic vol]8.3 fLNormal6.3-10.7The [facility] Physician GroupComment on above:Performed By: #### DIFF CBC, CMP ####[address] [address] USAPlatelet Morphology NormalNormalNoFormerly [facility], [facility] Physician GroupComment on above:Result Comment: PERFORMED BY:[address] [place], [place] [phone] MEDICAL DIRECTORALTHEA MEADOWS M.D. Performed By: #### DIFF CBC, CMP ####[address] [address] USAPlatelets (Bld) [#/Vol]365 10*3/xNClyvwi802-446Jwf [facility] Physician GroupComment on above:Performed By: #### DIFF CBC, CMP ####[address] [address] [place] PoikilocytosisSAtrium Health Providence Physician GroupComment on above: Performed By: #### DIFF CBC, CMP ####[address] [address] USAPolychromasiaModerateNormSanta Rosa Medical Center Physician GroupComment on above:Performed By: #### DIFF CBC, CMP ####[address] [address] USARBC (Bld) [#/Vol]2.48 10*6/uL Low3.60-5.00The [facility] Physician GroupComment on above:Performed By: #### DIFF CBC, CMP ####[address] [address] USASchistocytesSlightNoFormerly [facility], later [facility] Physician GroupComment on above: Performed By: #### DIFF CBC, CMP ####[facility] [address] [place] [address] USASegmented neutrophils/100 WBC (Bld)81 %Wppo06-63Jqy [facility] Physician GroupComment on above:Performed By: #### DIFF CBC, CMP ####[facility] [address] [place] [address] [facility] StomatocytesSAtrium Health Providence Physician GroupComment on above:Performed By: #### DIFF CBC, CMP ####[facility] [address] [place] [address] USAWBC (Bld) [#/Vol]11.9 10*3/uLHigh3.8-11.6The [facility] Physician GroupComment on above:Performed By: #### DIFF CBC, CMP ####[place] [address] ERYTHROPOETIN (EPO), SERUMon 28-62-8072HQNARWFZSZMMP (EPO), SERUM47.3 m[iU]/mL High2.6 - 18.5 m[iU]/mLNST. MARY'S REG[facility]AL [facility] ENID HealthcareComment on above:Laura ActionPlannerel DxI 800 Immunoassay System Values obtained with different assay methods or kits cannot be used interchangeably. Results cannot be interpreted as absolute evidence of the presence or absence of malignant disease. Performed at: [address] [id number] Hairspring Assembler: Anthony Keane PhD, Phone: [phone] Interpretation and review of laboratory resultsAbnormEncompass Health HealthcareEosinophils Auto (Bld) [#/Vol]Ordered By: Tyree Rdz on 58-43-4380Xxuawcfqvvz (Bld) [#/Vol]Automated eosinophil countSelect Medical Cleveland Clinic Rehabilitation Hospital, AvonEosinophils/100 WBC Auto (Bld)Ordered By: Tyree Rdz on 38-04-0573Twxbgicbhwh/100 WBC (Bld)Automated eosinophil %[facility], AvonErythrocyte distribution width Auto (RBC) [Ratio]Ordered By: Tyree Rdz on 72-56-2701Qmeaodxsgfi distribution width (RBC) [Ratio] Erythrocyte distribution width [Ratio] by Automated count11.9-15.3FCincinnati Children's Hospital Medical CenterErythrocyte morphology finding [Identifier] in Blood Ordered By: Tyree Rdz on 90-10-0972QAZ morphology finding Nom (Bld)RBC morphologySelect Medical Cleveland Clinic Rehabilitation Hospital, AvonGlobulin Calc (S) [Mass/Vol]Ordered By: Tyree Rdz on 57-54-1883Bvvtikfa (S) [Mass/Vol]Serum globulin measurement by calculation (mass/volume)[facility], AvonGlucose [Mass/volume] in Serum or PlasmaOrdered By: Tyree Rdz on 2024 Glucose [Mass/Vol]Glucose [Mass/volume] in Serum or Dsvlne80-629BccfwoucjSelect Medical Cleveland Clinic Rehabilitation Hospital, AvonComment on above:ADA recommended reference rangeRandom Glucose Reference Range is dependent on time and content of last meal. Glucose of more than 200 mg/dL in a nonstressed, ambulatory subject supports the diagnosisof Diabetes Mellitus.Hematocrit Auto (Bld) [Volume fraction]Ordered By: Tyree Rdz on 77-31-8404Bedjatylxn (Bld) [Volume fraction]Hematocrit [Volume Fraction] of Blood by Automated hdhepJyx15.0-46.4FCincinnati Children's Hospital Medical CenterHemoglobin [Mass/volume] in BloodOrdered By: Tyree Rdz on 04-88-7407Zwakzyochr (Bld) [Mass/Vol]Hemoglobin [Mass/volume] in BloodLow 11.8-15.4FCincinnati Children's Hospital Medical CenterLeukocytes [#/volume] corrected for nucleated erythrocytes in Blood by Automated counOrdered By: Tyree Rdz on 52-83-5280CXY corrected for nucl RBC Auto (Bld) [#/Vol]Leukocytes [#/volume] corrected for nucleated erythrocytes in Blood by Automated counHigh3.8-11.6 [facility], AvonLymphocytes Auto (Bld) [#/Vol]Ordered By: Tyree Rdz on 96-79-4201Uvcvifuhfsf (Bld) [#/Vol]Lymphocytes [#/volume] in Blood by Automated countSelect Medical Cleveland Clinic Rehabilitation Hospital, AvonLymphocytes/100 WBC Auto (Bld)Ordered By: Tyree Levymood on 98-21-4742Wjrbddtaugx/100 WBC (Bld) Lymphocytes/100 leukocytes in Blood by Automated countSelect Medical Cleveland Clinic Rehabilitation Hospital, AvonLymphocytes/100 WBC Manual cnt (Bld)Ordered By: Tyree Kajal on 92-94-9070Ghgaojpjfov/100 WBC (Bld)Lymphocytes/100 leukocytes in Blood by Manual xeqqbZwc36-76QovvhpnojTriHealthH Auto (RBC) [Entitic mass] Ordered By: Tyree Kajal on 92-19-9870UCA (RBC) [Entitic mass]MCH [Entitic mass] by Automated count24.7-34.3FCincinnati Children's Hospital Medical CenterMCHC Auto (RBC) [Mass/Vol]Ordered By: Tyree Levymood on 27-35-4007ILAI (RBC) [Mass/Vol] MCHC [Mass/volume] by Automated count32.0-35.0[facility] MCV Auto (RBC) [Entitic vol]Ordered By: Tyree Levymood on 62-51-4909YBZ (RBC) [Entitic vol]MCV [Entitic volume] by Automated kunju43-418WsrnfflqvSelect Medical Cleveland Clinic Rehabilitation Hospital, AvonMetamyelocytes/100 WBC Manual cnt (Bld)Ordered By: Tyree Kajal on 04-02-8410Mkhxqlwzhgokzw/100 WBC (Bld)Metamyelocytes/100 leukocytes in Blood by Manual countHigh0-0[facility], AvonMonocytes Auto (Bld) [#/Vol]Ordered By: Tryee Levymood on 89-20-6638Uzmtagorv (Bld) [#/Vol]Automated blood monocyte countSelect Medical Cleveland Clinic Rehabilitation Hospital, AvonMonocytes/100 WBC Auto (Bld)Ordered By: Tyree Kajal on 78-23-3108Lpxuszrks/100 WBC (Bld)Automated monocyte %[facility], AvonMonocytes/100 WBC Manual cnt (Bld) Ordered By: Tyree Kajal on 22-84-0587Oktoavkqx/100 WBC (Bld)Monocytes/100 leukocytes in Blood by Manual count2-11[facility] Myelocytes/100 WBC Manual cnt (Bld)Ordered By: Tyree Rdz on 2024 Myelocytes/100 WBC (Bld)Myelocytes/100 leukocytes in Blood by Manual countHigh 0-0[facility], AvonNeutrophils Auto (Bld) [#/Vol]Ordered By: Tyree Rdz on 13-30-9453Somvnqxcqde (Bld) [#/Vol]Neutrophils [#/volume] in Blood by Automated countSelect Medical Cleveland Clinic Rehabilitation Hospital, AvonNeutrophils/100 WBC Auto (Bld)Ordered By: Tyree Rdz on 13-79-7631Yisnwdiswgp/100 WBC (Bld) Automated neutrophil %[facility], AvonNo Panel Information Ordered By: Tyree Rdz on 33-20-3414Qzyawbpth GFR (CKD-EPI)> 60.0 mL/Min [facility], AvonPharmacy Creatinine Clearance (Chem89.44 [facility], AvonNucleated RBC/100 WBC Manual cnt (Bld) [Ratio] Ordered By: Tyree Rdz on 01-82-4938Mypthrdxg RBC/100 WBC (Bld) [Ratio] Nucleated erythrocytes/100 leukocytes [Ratio] in Blood by Manual countHigh0-0 [facility], AvonNucleated erythrocytes [Presence] in Blood by Automated countOrdered By: Tyree Rdz on 31-74-6874Vaycotwuy RBC Auto Ql (Bld)Nucleated erythrocytes [Presence] in Blood by Automated countSelect Medical Cleveland Clinic Rehabilitation Hospital, AvonOvalocytes [Presence] in Blood by Light microscopyOrdered By: Tyree Rdz on 05-11-2127Chpomgpntu LM Ql (Bld)Ovalocyte detection [facility], AvonPlatelet adequacy [Presence] in Blood by Light microscopyOrdered By: Tyree Rdz on 19-74-1023Lfodrotkn LM Ql (Bld)Platelet adequacy [Presence] in Blood by Light microscopyNormalSelect Medical Cleveland Clinic Rehabilitation Hospital, AvonPlatelet mean volume Auto (Bld) [Entitic vol]Ordered By: Tyree Rdz on 52-69-9604Tsriajxg mean volume (Bld) [Entitic vol]Platelet mean volume [Entitic volume] in Blood by Automated count6.3-10.7FCincinnati Children's Hospital Medical CenterPlatelet morphology finding [Identifier] in BloodOrdered By: Tyree Rdz on 38-59-8228Srrtfivl morphology finding Nom (Bld)Platelet morphology finding [Identifier] in BloodNormalSelect Medical [facility], [place]on Platelets Auto (Bld) [#/Vol]Ordered By: Tyree Rdz on 39-09-3772Zkcpuxzeg (Bld) [#/Vol]Platelets [#/volume] in Blood by Automated rxtvu332-810AkminckhuSelect Medical Cleveland Clinic Rehabilitation Hospital, AvonPoikilocytosis [Presence] in Blood by Light microscopy Ordered By: Tyree Rdz on 81-18-4382Euxaqdwkfrcmoi LM Ql (Bld) Poikilocytosis [Presence] in Blood by Light microscopySelect Medical Cleveland Clinic Rehabilitation Hospital, AvonPolychromasia [Presence] in Blood by Light microscopyOrdered By: Tyree Rdz on 81-21-5090Umsrvercszbxt LM Ql (Bld)Polychromasia [Presence] in Blood by Light microscopySelect Medical Cleveland Clinic Rehabilitation Hospital, AvonPotassium [Moles/volume] in Serum or PlasmaOrdered By: Tyree Rdz on 41-45-5500Ikhukmggj [Moles/Vol] Potassium [Moles/volume] in Serum or Plasma3.5-5.1FCincinnati Children's Hospital Medical CenterProtein [Mass/volume] in Serum or PlasmaOrdered By: Tyree Rdz on 61-01-7918Vcdtrut [Mass/Vol]Protein [Mass/volume] in Serum or PlasmaLow6.4-8.9 [facility], AvonRBC Auto (Bld) [#/Vol]Ordered By: Tyree Rdz on 33-94-0407GLS (Bld) [#/Vol]Erythrocytes [#/volume] in Blood by Automated countLow3.60-5.00[facility] Cincinnatichistocytes [Presence] in Blood by Light microscopyOrdered By: Tyree Rdz on 2024 Schistocytes LM Ql (Bld)Schistocytes [Presence] in Blood by Light microscopy [facility] Cincinnatiegmented neutrophils/100 WBC Manual cnt (Bld) Ordered By: Tyree Rdz on 82-45-5146Iqqnkvxiw neutrophils/100 WBC (Bld) Manual blood segmented neutrophils/100 yhtrwfqjknCfoz04-30TpggpabyhSelect Medical Specialty Hospital - Cincinnatierum or plasma albumin/globulin mass ratioOrdered By: Tyree Rdz on 47-85-6875Ymgnadc/Globulin [Mass ratio]Serum or plasma albumin/globulin mass ratioSelect Medical Specialty Hospital - Cincinnatierum or plasma anion gap determinationOrdered By: Tyree Rdz on 80-28-8170Xsghg gap [Moles/Vol]Serum or plasma anion gap determination6.0-15.0[facility] Cincinnatiodium [Moles/volume] in Serum or PlasmaOrdered By: Tyree Rdz on 51-74-0895Txljto [Moles/Vol]Sodium [Moles/volume] in Serum or Plasma 136-145Select [facility] - Cincinnatitomatocytes [Presence] in Blood by Light microscopyOrdered By: Tyree Rdz on 96-03-2419Hwrtjxlnykwe LM Ql (Bld)Red blood cell stomatocyte detectionSelect Medical Cleveland Clinic Rehabilitation Hospital, AvonUrea nitrogen [Mass/volume] in Serum or PlasmaOrdered By: Tyree Rdz on 34-14-0328Fqju nitrogen [Mass/Vol]Urea nitrogen [Mass/volume] in Serum or Plasma 7-25[facility], AvonWBC Auto (Bld) [#/Vol]Ordered By: Tyree Rdz on 86-29-0587RDH (Bld) [#/Vol]Leukocytes [#/volume] in Blood by Automated countHigh3.8-11.6FCincinnati Children's Hospital Medical CenterBasophils/100 WBC Manual cnt (Bld)Ordered By: Tyree Rdz on 99-26-1174Dpmdenhgh/100 WBC (Bld) Basophils/100 leukocytes in Blood by Manual count0-2FCincinnati Children's Hospital Medical CenterComprehensive Metabolic Panelon 67-70-9591Gvcnmnx [Mass/Vol]3.0 g/dLLow 3.5-5.7The [facility] Physician GroupComment on above:Performed By: #### CMP, LISSET, DIFF CBC, ESR, [id number], FE and TIBC ####[facility] [address] [place] [address] USAAlbumin/Globulin [Mass ratio]1.0 {ratio} NormalThe Formerly [facility] Physician GroupComment on above:Performed By: #### CMP, LISSET, DIFF CBC, ESR, [id number], FE and TIBC ####[address] [address] USAALP [Catalytic activity/Vol]147 U/TJeyw71-683 The Formerly [facility] Physician GroupComment on above:Performed By: #### CMP, LISSET, DIFF CBC, ESR, [id number], FE and TIBC ####[place] [id number] USAALT [Catalytic activity/Vol]122 U/LHigh7-52The Formerly [facility] Physician GroupComment on above:Performed By: #### CMP, LISSET, DIFF CBC, ESR, [id number], FE and TIBC ####[place] [address] USAAnion gap [Moles/Vol]12.3 mmol/LNormal6.0-15.0The Formerly [facility] Physician GroupComment on above:Performed By: #### CMP, LISSET, DIFF CBC, ESR, [id number], FE and TIBC ####[place] [id number] USAAST [Catalytic activity/Vol]151 U/THvfu52-70Zzx Formerly [facility] Physician GroupComment on above:Performed By: #### CMP, LISSET, DIFF CBC, ESR, [id number], FE and TIBC ####[place] [address] USABilirubin [Mass/Vol]0.6 mg/dLNormal0.3-1.0The Formerly [facility] Physician GroupComment on above:Performed By: #### CMP, LISSET, DIFF CBC, ESR, [id number], FE and TIBC ####[place] [id number] USACalcium [Mass/Vol]8.6 mg/dLNormal8.6-10.3The Formerly [facility] Physician GroupComment on above:Performed By: #### CMP, LISSET, DIFF CBC, ESR, [id number], FE and TIBC ####[place] [id number] USAChloride [Moles/Vol]102 mmol/JPzatvc48-401Niy Formerly [facility] Physician GroupComment on above:Performed By: #### CMP, LISSET, DIFF CBC, ESR, [id number], FE and TIBC ####[place] [address] USACO2 [Moles/Vol]24.7 mmol/IIjawxr93.0-31.0[facility] Physician GroupComment on above:Performed By: #### CMP, LISSET, DIFF CBC, ESR, [id number], FE and TIBC ####[place] [address] USACreatinine [Mass/Vol]0.62 mg/dLNormal0.60-1.20The Formerly [facility] Physician GroupComment on above:Performed By: #### CMP, LISSET, DIFF CBC, ESR, [id number], FE and TIBC ####[place] [address] USACreatinine Clr Calc Sdkuvdtq41.49NoFormerly [facility], [facility] Physician GroupComment on above:Performed By: #### CMP, LISSET, DIFF CBC, ESR, [id number], FE and TIBC ####[place] [address] USAGFR/1.73 sq M.predicted MDRD (S/P/Bld) [Vol rate/Area]mL/min/{1.73_m2}NormalAdventhealth Tampa Physician GroupComment on above: Performed By: #### CMP, LISSET, DIFF CBC, ESR, [id number], FE and TIBC ####[place] [id number] USAGlobulin (S) [Mass/Vol]3.1 g/dLAdventHealth Brandon ER Physician GroupComment on above:Performed By: #### CMP, LISSET, DIFF CBC, ESR, [id number], FE and TIBC ####[place] [address] USAGlucose [Mass/Vol]90 mg/dL Varbea87-901Wdc Formerly [facility] Physician GroupComment on above:Result Comment: Random Glucose Reference Range is dependent on time and content of last meal. Glucose of more than 200 mg/dL in a nonstressed, ambulatory subject supports the diagnosis of Diabetes Mellitus. ADA recommended reference rangePerformed By: #### CMP, LISSET, DIFF CBC, ESR, [id number], FE and TIBC ####[facility] [place] [address] USAPotassium [Moles/Vol]4.0 mmol/LNormal3.5-5.1The Formerly [facility] Physician GroupComment on above:Performed By: #### CMP, LISSET, DIFF CBC, ESR, [id number], FE and TIBC ####[facility] [place] [address] USAProtein [Mass/Vol]6.1 g/dLLow 6.4-8.9The Formerly [facility] Physician GroupComment on above:Performed By: #### CMP, LISSET, DIFF CBC, ESR, [id number], FE and TIBC ####[facility] [address] [place] [address] USASodium [Moles/Vol]135 mmol/GPsu937-105 The Formerly [facility] Physician GroupComment on above:Performed By: #### CMP, LISSET, DIFF CBC, ESR, [id number], FE and TIBC ####[facility] [place] [id number] USAUrea nitrogen [Mass/Vol]10 mg/dLNormal7-25The Formerly [facility] Physician GroupComment on above:Performed By: #### CMP, LISSET, DIFF CBC, ESR, [id number], FE and TIBC ####[place] [phone] USADiff and CBCon 45-13-0183Bqrhveurhmmi Ql (Bld)Slight NormalThe Formerly [facility] Physician GroupComment on above:Performed By: #### CMP, LISSET, DIFF CBC, ESR, [id number], FE and TIBC ####[facility] [place], [place] [address] USABand form neutrophils/100 WBC (Bld)3 %Normal 0-5The Formerly [facility] Physician GroupComment on above:Performed By: #### CMP, LISSET, DIFF CBC, ESR, [id number], FE and TIBC ####[address] [address] USABasophils/100 WBC (Bld)2 %Normal0-2The Formerly [facility] Physician GroupComment on above:Performed By: #### CMP, LISSET, DIFF CBC, ESR, [id number], FE and TIBC ####[place] [phone] USAErythrocyte distribution width (RBC) [Ratio]15.1 % Zbddnv14.9-15.3The Formerly [facility] Physician GroupComment on above:Performed By: #### CMP, LISSET, DIFF CBC, ESR, [id number], FE and TIBC ####[place] [phone] USAHematocrit (Bld) [Volume fraction]23.2 %Low34.0-46.4The Formerly [facility] Physician GroupComment on above:Performed By: #### CMP, LISSET, DIFF CBC, ESR, [id number], FE and TIBC ####[place] [phone] USAHemoglobin (Bld) [Mass/Vol]7.7 g/dLLow 11.8-15.4The Formerly [facility] Physician GroupComment on above:Performed By: #### CMP, LISSET, DIFF CBC, ESR, [id number], FE and TIBC ####[facility] [address] [place] [phone] USALymphocytes/100 WBC (Bld)5 %Pij43-37Ufn Formerly [facility] Physician GroupComment on above:Performed By: #### CMP, LISSET, DIFF CBC, ESR, [id number], FE and TIBC ####[place] [phone] USAMCH (RBC) [Entitic mass]30.4 gqQmcpnk04.7-34.3The Formerly [facility] Physician GroupComment on above:Performed By: #### CMP, LISSET, DIFF CBC, ESR, [id number], FE and TIBC ####[address] [address] USAMCV (RBC) [Entitic vol]91.8 nDTaeajm48-344Inj Former[facility] Physician GroupComment on above:Performed By: #### CMP, LISSET, DIFF CBC, ESR, [id number], FE and TIBC ####[place] [phone] USAMean Corpuscular HGB Conc33.1 g/yQNomrer35.0-35.0The Formerly [facility] Physician GroupComment on above:Performed By: #### CMP, LISSET, DIFF CBC, ESR, [id number], FE and TIBC ####[place] [address] USAMetamyelocytes1 %High0-0The Formerly [facility] Physician GroupComment on above:Performed By: #### CMP, LISSET, DIFF CBC, ESR, [id number], FE and TIBC ####[address] [address] USAMicrocytosisSlightNormalThe Formerly [facility] Physician GroupComment on above: Performed By: #### CMP, LISSET, DIFF CBC, ESR, [id number], FE and TIBC ####[place] [phone] USAMonocytes/100 WBC (Bld)7 %Normal2-11The Formerly [facility] Physician GroupComment on above:Performed By: #### CMP, LISSET, DIFF CBC, ESR, [id number], FE and TIBC ####[address] [address] USAMyelocytes1 %High0-0The Formerly [facility] Physician GroupComment on above:Performed By: #### CMP, LISSET, DIFF CBC, ESR, [id number], FE and TIBC ####[address] [address] USANucleated Red Blood Cell2 /100{WBC}High0-0The Formerly [facility] Physician GroupComment on above:Performed By: #### CMP, LISSET, DIFF CBC, ESR, [id number], FE and TIBC ####[address] [address] USAOvalocytesSlightAdventHealth Brandon ER Physician Group Comment on above:Performed By: #### CMP, LISSET, DIFF CBC, ESR, [id number], FE and TIBC ####[place] [phone] [place] Platelet EstimateNormalNormalAdventHealth Brandon ER Physician GroupComment on above:Performed By: #### CMP, LISSET, DIFF CBC, ESR, [id number], FE and TIBC ####[place] [address] [place] Platelet mean volume (Bld) [Entitic vol]8.5 fLNormal6.3-10.7The Formerly [facility] Physician GroupComment on above:Performed By: #### CMP, LISSET, DIFF CBC, ESR, [id number], FE and TIBC ####[place] [address] USAPlatelet MorphologyNormalNormHCA Florida Pasadena Hospital Physician GroupComment on above:Performed By: #### CMP, LISSET, DIFF CBC, ESR, [id number], FE and TIBC ####[place] [address] USAPlatelets (Bld) [#/Vol]316 10*3/zCVziwbh330-359Zhi Formerly [facility] Physician GroupComment on above:Performed By: #### CMP, LISSET, DIFF CBC, ESR, [id number], FE and TIBC ####[address] [address] USAPolychromasiaModerateNoFormerly [facility] Physician GroupComment on above:Performed By: #### CMP, LISSET, DIFF CBC, ESR, [id number], FE and TIBC ####[place] [phone] USAPromyelocytes2 %High0-0The Formerly [facility] Physician GroupComment on above: Performed By: #### CMP, LISSET, DIFF CBC, ESR, [id number], FE and TIBC ####[address] [address] USARBC (Bld) [#/Vol] 2.53 10*6/uLLow3.60-5.00The Formerly [facility] Physician GroupComment on above:Performed By: #### CMP, LISSET, DIFF CBC, ESR, [id number], FE and TIBC ####[address] [address] [facility]PITALRouleauxECU Health Edgecombe Hospital Physician GroupComment on above:Performed By: #### CMP, LISSET, DIFF CBC, ESR, [id number], FE and TIBC ####[address] [address] [facility]PITALSchistocytesECU Health Edgecombe Hospital Physician GroupComment on above:Performed By: #### CMP, LISSET, DIFF CBC, ESR, [id number], FE and TIBC ####[address] [address] USASegmented neutrophils/100 WBC (Bld)80 %Eqce10-46Vfs [facility] Comment on above:Performed By: #### CMP, LISSET, DIFF CBC, ESR, [id number], FE and TIBC ####[address] [address] [facility] StomatocytesSAtrium Health Providence Physician GroupComment on above:Performed By: #### CMP, LISSET, DIFF CBC, ESR, [id number], FE and TIBC ####[address] [address] USAWBC (Bld) [#/Vol]16.9 10*3/uL High3.8-11.6The Formerly [facility] Physician GroupComment on above:Performed By: #### CMP, LISSET, DIFF CBC, ESR, [id number], FE and TIBC ####[address] [address] USAErythrocyte Sedimentation Rateon 77-01-3860AXL (Bld) [Velocity]88 mm/hHigh0-29The [facility] Comment on above:Result Comment: PERFORMED BY:[place] [address] [place], [place] [phone] MEDICAL DIRECTORALTHEA MEADOWS M.D.Performed By: #### CMP, LISSET, DIFF CBC, ESR, [id number], FE and TIBC ####[place] [phone] [facility]OSPITALErythrocyte sedimentation rate by Photometric method Ordered By: Frank Paez on 40-76-2154JRC Photometric method (Bld) [Velocity]Erythrocyte sedimentation rate by Photometric methodHigh0-[facility], AvonErythropoetin (EPO), Serumon 66-50-6148Lsedodiijflrq (EPO), Serum47.3 m[iU]/mLHigh2.6-18.5The Formerly [facility] Physician GroupComment on above:Result Comment: BridgeLux DxI 800 Immunoassay System Values obtained with different assay methods or kits cannot be used interchangeably. Results cannot be interpreted as absolute evidence of the presence or absence of malignant disease. Performed at: [place] [id number] Hairspring Assembler: Anthony Keane PhD, Phone: [phone] BY:[address] [address] [address] [place], [place] [phone] MEDICAL DIRECTORMONEGRITA MEADOWS M.D. Performed By: #### EPO ####[facility] ,Ferritinon 31-30-5450Bgejyrml [Mass/Vol]2730.0 ng/nGOtxm24.0-306.8The Formerly [facility] Physician GroupComment on above:Performed By: #### CMP, LISSET, DIFF CBC, ESR, [id number], FE and TIBC ####[address] [address] [facility] Ferritin [Mass/volume] in Serum or PlasmaOrdered By: Frank Paez on 36-75-5710Rbfeqwdd [Mass/Vol]Ferritin [Mass/volume] in Serum or PlasmaHigh 11.0-306.8[facility], AvonFolate [Mass/volume] in Serum or PlasmaOrdered By: Frank Paez on 42-44-6180Mausiq [Mass/Vol]Folate [Mass/volume] in Serum or Plasma>5.9[facility], AvonComment on above:Folate reference range: >5.9 ng/mlThe WHO technical consultation on folate and vitamin b74lzwanditboxb has determined that folate concentrations lessthan 4 ng/ml are considered deficient.Iron [Mass/volume] in Serum or PlasmaOrdered By: Frank Paez on 99-79-1470Klfl [Mass/Vol]Iron [Mass/volume] in Serum or LopzehGxa77-573EwxaqrsehSelect Medical Cleveland Clinic Rehabilitation Hospital, AvonIron and TIBC Profileon 09-24-2024% Iron Kqrjgfaedl05.8 %Fzh42-29Mcz [facility] Physician GroupComment on above:Performed By: #### CMP, LISSET, DIFF CBC, ESR, [id number], FE and TIBC ####[facility] [place] [address] USAIron [Mass/Vol]30 ug/lLVzc72-122Fqo Formerly [facility] Physician GroupComment on above: Performed By: #### CMP, LISSET, DIFF CBC, ESR, SCCY96GSO, FE and TIBC ####[place] [address] [place] [address] USATotal Iron Binding Swhhvkwh889 ug/mNGpc315-866Pjh Former[facility] Physician GroupComment on above: Performed By: #### CMP, LISSET, DIFF CBC, ESR, [id number], FE and TIBC ####[place] [address] [place] [address] USATransferrin [Mass/Vol]121 mg/nQMfz267-773Scx Formerly [facility] Physician GroupComment on above: Performed By: #### CMP, LISSET, DIFF CBC, ESR, DBQN30LPA, FE and TIBC ####[place] [address] [place] [address] USAMicrocytes LM Ql (Bld)Ordered By: Tyree Rdz on 05-95-4301Apkevmhdji Ql (Bld)Microcytes [Presence] in Blood by Light microscopySelect Medical Cleveland Clinic [facility], [place]on Promyelocytes/100 WBC Manual cnt (Bld)Ordered By: Tyree Rdz on 09-24-2024 Promyelocytes/100 WBC (Bld)Promyelocytes/100 leukocytes in Blood by Manual count High0-0[facility], AvonRouleaux [Presence] in Blood by Light microscopyOrdered By: Tyree Rdz on 93-35-7808Ifvdiqsy LM Ql (Bld)Rouleaux detectionSelect Medical Specialty Hospital - Cincinnatierum or plasma erythropoietin (EPO) measurement (units/volume)Ordered By: Frank Paez on 09-24-2024 Erythropoietin (EPO) QnSerum or plasma erythropoietin (EPO) measurement (units/volume)High2.6-18.5FCincinnati Children's Hospital Medical CenterComment on above: BridgeLux DxI 800 Immunoassay SystemValues obtained with different assay methods or kits cannotbe used interchangeably. Results cannot be interpreted asabsolute evidence of the presence or absence of malignantdisease.Performed at: [facility] [id number] Director: Anthony Keane PhD, Phone: [phone] or plasma iron binding capacity measurement (mass/volume)Ordered By: Frank Paez on 70-96-2576Sarz binding capacity [Mass/Vol]Iron binding capacity [Mass/volume] in Serum or DltynzTox453-763LagczhyrgSelect Medical Specialty Hospital - Cincinnatierum or plasma iron saturation measurement (mass fraction)Ordered By: Frank Paez on 07-87-9514Frmu saturation [Mass fraction]Iron saturation [Mass Fraction] in Serum or AkeyunWnq64-51PrfieltseSelect Medical Cleveland Clinic Rehabilitation Hospital, AvonTransferrin [Mass/volume] in Serum or PlasmaOrdered By: Frank Paez on 09-24-2024 Transferrin [Mass/Vol]Transferrin [Mass/volume] in Serum or EirascTvo528-260 [facility], AvonVit. B12/Folate Profileon 75-31-0017Khukrqmgg (Vitamin B12) [Mass/Vol]5227 pg/lMPqfq649-393Vwh [facility] Comment on above:Performed By: #### CMP, LISSET, DIFF CBC, ESR, GFXY69MME, FE and TIBC ####[place] [id number] [facility] Folate8.7 ng/mLNormal>5.9The Formerly [facility] Physician GroupComment on above:Result Comment: Folate reference range: >5.9 ng/ml The WHO technical consultation on folate and vitamin b12 deficiencies has determined that folate concentrations less than 4 ng/ml are considered deficient.PERFORMED BY:[place] [address] [place] [place], [place] [phone] MEDICAL DIRECTORALTHEA MEADOWS M.D.Performed By: #### CMP, LISSET, DIFF CBC, ESR, DKOQ50SFO, FE and TIBC ####[place] [id number] [facility]PITALVitamin B12 ser/plasOrdered By: Frank Paez on 75-06-4885Omejkrbhq (Vitamin B12) [Mass/Vol]Vitamin B12 ser/uqhtOkqh122-383 [facility], AvonBurr cells [Presence] in Blood by Light microscopyOrdered By: Tyree Rdz on 19-60-2026Rbji cells LM Ql (Bld)[place] cells [Presence] in Blood by Light microscopySelect Medical Cleveland Clinic Rehabilitation Hospital, AvonC reactive protein [Mass/volume] in Serum or PlasmaOrdered By: Roshan Reynoso on 09-71-4579YLG [Mass/Vol]C reactive protein [Mass/volume] in Serum or PlasmaHigh 0.0-0.5FCincinnati Children's Hospital Medical CenterC-Reactive Proteinon 75-39-5046Q- Reactive Ixyjsni11.0 mg/dLHigh0.0-0.5The [facility] Physician GroupComment on above:Result Comment: PERFORMED BY:[address] [address] [place], [place] [phone] MEDICAL DIRECTORALTHEA JIMENEZ M.D.Performed By: #### CRP, DIFF CBC, CMP ####[address] [address] USAComprehensive Metabolic Panel on 94-56-9327Becozto [Mass/Vol]2.7 g/dLLow3.5-5.7The [facility] Comment on above:Performed By: #### CRP, DIFF CBC, CMP ####[place] [address] USAAlbumin/Globulin [Mass ratio] 0.9 {ratio}NormalThe [facility] Physician [facility] Care SystemComment on above:Performed By: #### CRP, DIFF CBC, CMP ####[place] [id number] USAALP [Catalytic activity/Vol]146 U/MDebz24-822Pzs [facility] Physician GroupComment on above:Performed By: #### CRP, DIFF CBC, CMP ####[place] [id number] USAALT [Catalytic activity/Vol]116 U/LHigh7-52The [facility] Physician [facility] Care SystemComment on above:Performed By: #### CRP, DIFF CBC, CMP ####[place] [address] USAAnion gap [Moles/Vol]11.2 mmol/LNormal 6.0-15.0The [facility] Physician GroupComment on above:Performed By: #### CRP, DIFF CBC, CMP ####[place] [phone] USAAST [Catalytic activity/Vol]171 U/ITztj28-98Kdb [facility] Physician GroupComment on above:Performed By: #### CRP, DIFF CBC, CMP ####[place] [id number] USABilirubin [Mass/Vol] 0.6 mg/dLNormal0.3-1.0The [facility] Physician GroupComment on above:Performed By: #### CRP, DIFF CBC, CMP ####[place] [phone] USACalcium [Mass/Vol]8.3 mg/dLLow8.6-10.3The [facility]ly [facility] Physician GroupComment on above:Performed By: #### CRP, DIFF CBC, CMP ####[place] [address] [place] Chloride [Moles/Vol]103 mmol/JBeuexd82-849Njy [facility] Physician GroupComment on above:Performed By: #### CRP, DIFF CBC, CMP ####[address] [address] USACO2 [Moles/Vol]24.8 mmol/LNormal 21.0-31.0The [facility] Physician GroupComment on above:Performed By: #### CRP, DIFF CBC, CMP ####[place] [phone] USACreatinine [Mass/Vol]0.68 mg/dLNormal0.60-1.20The [facility] Physician GroupComment on above:Performed By: #### CRP, DIFF CBC, CMP ####[place] [address] USACreatinine Clr Calc Dfwkjouh89.42NormSanta Rosa Medical Center Physician GroupComment on above:Result Comment: PERFORMED BY:[address] [place], [place] [phone] MEDICAL DIRECTORALTHEA MEADOWS M.D. Performed By: #### CRP, DIFF CBC, CMP ####[place] [id number] USAGFR/1.73 sq M.predicted MDRD (S/P/Bld) [Vol rate/Area]mL/min/{1.73_m2}NormalThe [facility]ly [facility] Physician [facility] Care SystemComment on above: Performed By: #### CRP, DIFF CBC, CMP ####[place] [id number] USAGlobulin (S) [Mass/Vol]3.0 g/dLNoFormerly [facility] Physician [facility] Care SystemComment on above:Performed By: #### CRP, DIFF CBC, CMP ####[place] [id number] USAGlucose [Mass/Vol]97 mg/kAMteves94-167Pzt [facility] Physician GroupComment on above: Result Comment: Random Glucose Reference Range is dependent on time and content of last meal. Glucose of more than 200 mg/dL in a nonstressed, ambulatory subject supports the diagnosis of Diabetes Mellitus. ADA recommended reference rangePerformed By: #### CRP, DIFF CBC, CMP ####[place] [address] USAPotassium [Moles/Vol]4.0 mmol/LNormal 3.5-5.1The [facility] Physician [facility] Care SystemComment on above:Performed By: #### CRP, DIFF CBC, CMP ####[place] [id number] USAProtein [Mass/Vol]5.7 g/dLLow6.4-8.9The [facility] Physician [facility] Comment on above:Performed By: #### CRP, DIFF CBC, CMP ####[place] [address] USASodium [Moles/Vol]135 mmol/L Bbe562-321Imi [facility] Physician [facility] Care SystemComment on above:Performed By: #### CRP, DIFF CBC, CMP ####[address] StreetUrea nitrogen [Mass/Vol]10 mg/dLNormal7-25The [facility] Comment on above:Performed By: #### CRP, DIFF CBC, CMP ####[place] [address] USADiff and CBCon 09-23-2024 Anisocytosis Ql (Bld)SlightAdventHealth Brandon ER Physician GroupComment on above: Performed By: #### CRP, DIFF CBC, CMP ####[place] [address] USABand form neutrophils/100 WBC (Bld)10 %High0-5 The [facility] Physician GroupComment on above:Performed By: #### CRP, DIFF CBC, CMP ####[place] [id number] [place] Crenated RBCSlightNoFormerly [facility] Physician [facility] Care SystemComment on above:Performed By: #### CRP, DIFF CBC, CMP ####[place] [id number] USAErythrocyte distribution width (RBC) [Ratio]14.6 % Iuxysh58.9-15.3The [facility] Physician GroupComment on above:Performed By: #### CRP, DIFF CBC, CMP ####[place] [phone] USAGiant Platelet Tally1 /100{WBC}NormalThe [facility] Comment on above:Performed By: #### CRP, DIFF CBC, CMP ####[place] [address] USAHematocrit (Bld) [Volume fraction]22.4 %Low34.0-46.4The [facility] Physician GroupComment on above: Performed By: #### CRP, DIFF CBC, CMP ####[place] [address] USAHemoglobin (Bld) [Mass/Vol]7.6 g/dLLow 11.8-15.4The [facility] Physician GroupComment on above:Performed By: #### CRP, DIFF CBC, CMP ####[place] [id number] USALarge PlateletsSlightNormalThe [facility] Physician GroupComment on above:Result Comment: PERFORMED BY:[address] [place], [place] [phone] MEDICAL DIRECTORMONEGRITA JIMENEZ M.D.Performed By: #### CRP, DIFF CBC, CMP ####[place] [phone] USALymphocytes/100 WBC (Bld)1 % Pzf96-15Rew [facility] Physician GroupComment on above:Performed By: #### CRP, DIFF CBC, CMP ####[place] [phone] USAMCH (RBC) [Entitic mass]31.3 mcKsoeoe16.7-34.3The [facility] Physician GroupComment on above:Performed By: #### CRP, DIFF CBC, CMP ####[place] [phone] USAMCV (RBC) [Entitic vol]92.1 lOStyraq92-761Ufc [facility] Physician GroupComment on above:Performed By: #### CRP, DIFF CBC, CMP ####[address] [address] USAMean Corpuscular HGB Conc34.0 g/mGTzbbbq42.0-35.0The [facility] Physician GroupComment on above:Performed By: #### CRP, DIFF CBC, CMP ####[address] [address] [place] Metamyelocytes1 %High0-0The [facility] Physician GroupComment on above:Performed By: #### CRP, DIFF CBC, CMP ####[address] [address] USAMicrocytosisSlightAdventHealth Brandon ER Physician GroupComment on above:Performed By: #### CRP, DIFF CBC, CMP ####[address] [address] USAMonocytes/100 WBC (Bld)4 %Normal2-11The [facility] Physician GroupComment on above:Performed By: #### CRP, DIFF CBC, CMP ####[address] [address] USAMyelocytes1 %High0-0The [facility] Comment on above:Performed By: #### CRP, DIFF CBC, CMP ####[address] [address] USAOvalocytesSlightNoFormerly [facility] Physician GroupComment on above:Performed By: #### CRP, DIFF CBC, CMP ####[address] [address] [place] Platelet EstimateNormalNormalNormSanta Rosa Medical Center Physician GroupComment on above:Performed By: #### CRP, DIFF CBC, CMP ####[address] [address] USAPlatelet mean volume (Bld) [Entitic vol]8.7 fLNormal6.3-10.7The [facility] Physician GroupComment on above:Result Comment: PERFORMED BY:[address] [place], [place] [phone] MEDICAL DIRECTORALTHEA MEADOWS M.D. Performed By: #### CRP, DIFF CBC, CMP ####[address] [address] USAPlatelets (Bld) [#/Vol]209 10*3/uLNormal 150-450The [facility] Physician GroupComment on above:Performed By: #### CRP, DIFF CBC, CMP ####[address] [address] USAPoikilocytosisSAtrium Health Providence Physician GroupComment on above:Performed By: #### CRP, DIFF CBC, CMP ####[address] [address] USAPolychromasiaSAtrium Health Providence Physician GroupComment on above:Performed By: #### CRP, DIFF CBC, CMP ####[address] [address] USARBC (Bld) [#/Vol]2.43 10*6/uLLow3.60-5.00The [facility] Physician GroupComment on above:Performed By: #### CRP, DIFF CBC, CMP ####[address] [address] USAReactive Lymphocytes1 %Normal0-12The [facility] Physician [facility] Care SystemComment on above:Performed By: #### CRP, DIFF CBC, CMP ####[address] [address] [place] Segmented neutrophils/100 WBC (Bld)83 %Qtux05-87Rrs [facility] Comment on above:Performed By: #### CRP, DIFF CBC, CMP ####[address] [address] USAStomatocytesSAtrium Health Providence Physician [facility] Care SystemComment on above:Performed By: #### CRP, DIFF CBC, CMP ####[address] [address] USAWBC (Bld) [#/Vol]19.0 10*3/uLHigh3.8-11.6The [facility] Physician GroupComment on above:Performed By: #### CRP, DIFF CBC, CMP ####[facility] [address] [place] [address] USAGiant platelets/100 leukocytes [Ratio] in Blood by Manual countOrdered By: Tyree Rdz on 23-11-5573Efhix platelets/100 WBC Manual cnt (Bld) [Ratio]Giant platelets/100 leukocytes [Ratio] in Blood by Manual countSelect Medical Cleveland Clinic Rehabilitation Hospital, AvonPlatelets Large [Presence] in Blood by Light microscopyOrdered By: Tyree Rdz on 09-23-2024 Platelets Large LM Ql (Bld)Platelets Large [Presence] in Blood by Light microscopySelect Medical [facility] Clinic [facility] Hospital, AvonVariant lymphocytes/100 WBC Manual cnt (Bld)Ordered By: Tyree Rdz on 72-60-4018Jgsrklp lymphocytes/100 WBC (Bld)Variant lymphocytes/100 leukocytes in Blood by Manual count0-12[facility], AvonAppearance of UrineOrdered By: Tyree Rdz on 19-48-2509Cvqgwvcotv (U)Urine appearanceAbnormalClearSelect Medical Cleveland Clinic Rehabilitation Hospital, AvonBacteria [Presence] in Urine by AutomatedOrdered By: Tyree Rdz on 86-90-9729Iwbjmpax Auto Ql (U)Bacteria [Presence] in Urine by AutomatedNone Seen [facility], AvonBilirubin Test strip Ql (U)Ordered By: Tyree Rdz on 32-83-7969Xjfvnkztd Ql (U)Bilirubin.total [Presence] in Urine by Test stripNegativeSelect Medical Cleveland Clinic Rehabilitation Hospital, AvonBlood toxic granulation detection by light microscopyOrdered By: Tryee Rdz on 65-69-0571Migam granules LM Ql (Bld)Blood toxic granulation detection by light microscopySelect Medical Cleveland Clinic Rehabilitation Hospital, AvonCT angio cheston 89-50-5661KN angio chestNormalThe [facility] Physician GroupColor Auto (U)Ordered By: Tyree Rdz on 97-69-7594Wriwb (U) Color of Urine by AutoYellowSelect Medical Cleveland Clinic Rehabilitation Hospital, AvonDiff and CBCon 06-07-4098Xezjuvhaspkp Ql (Bld)SlightNormSanta Rosa Medical Center Physician GroupComment on above:Performed By: #### DIFF CBC ####[place] [phone] USABand form neutrophils/100 WBC (Bld)5 %Normal 0-5The [facility] Physician GroupComment on above:Performed By: #### DIFF CBC ####[place] [id number] [place] Basophils/100 WBC (Bld)1 %Normal0-2The [facility] Physician GroupComment on above:Performed By: #### DIFF CBC ####[address] [address] USAErythrocyte distribution width (RBC) [Ratio]14.9 % Hjmegh58.9-15.3The [facility] Physician GroupComment on above:Performed By: #### DIFF CBC ####[place] [address] USAHematocrit (Bld) [Volume fraction]22.7 %Low34.0-46.4The [facility] Physician GroupComment on above:Performed By: #### DIFF CBC ####[place] [phone] USAHemoglobin (Bld) [Mass/Vol]7.7 g/dLLow 11.8-15.4The [facility] Physician GroupComment on above:Performed By: #### DIFF CBC ####[place] [id number] [place] HypochromasiaSlightNormSanta Rosa Medical Center Physician GroupComment on above:Performed By: #### DIFF CBC ####[address] [address] USALymphocytes/100 WBC (Bld)3 %Eyd10-31Lao [facility] Comment on above:Performed By: #### DIFF CBC ####[address] [address] USAMCH (RBC) [Entitic mass]31.3 pgNormal 24.7-34.3The [facility] Physician GroupComment on above:Performed By: #### DIFF CBC ####[address] [address] USAMCV (RBC) [Entitic vol]92.0 xOYqgkqr87-193Tgg [facility] Physician GroupComment on above:Performed By: #### DIFF CBC ####[address] [address] USAMean Corpuscular HGB Conc34.0 g/uQNpdmwe66.0-35.0The [facility] Physician GroupComment on above:Performed By: #### DIFF CBC ####[address] [address] [place] Metamyelocytes2 %High0-0The [facility] Physician GroupComment on above:Performed By: #### DIFF CBC ####[address] [address] USAMonocytes/100 WBC (Bld)7 %Normal2-11The [facility] Comment on above:Performed By: #### DIFF CBC ####[address] [address] USAMyelocytes3 %High0-0The [facility] Physician GroupComment on above:Performed By: #### DIFF CBC ####[address] [address] USAPlatelet Estimate NormalNormalNormSanta Rosa Medical Center Physician GroupComment on above:Performed By: #### DIFF CBC ####[address] [address] USAPlatelet mean volume (Bld) [Entitic vol]8.7 fLNormal6.3-10.7The [facility] Physician GroupComment on above:Performed By: #### DIFF CBC ####[address] [address] [place] Platelet MorphologyNormalNormalNormSanta Rosa Medical Center Physician GroupComment on above:Result Comment: PERFORMED BY:[address] [place], [place] [phone] MEDICAL DIRECTORMOHAMED M EL- FAKHARANY M.D.Performed By: #### DIFF CBC ####[address] [address] USAPlatelets (Bld) [#/Vol]168 10*3/uLSignificant change isbw876-169Ftr [facility] Physician GroupComment on above:Performed By: #### DIFF CBC ####[address] [address] USAPolychromasiaSAtrium Health Providence Physician [facility] Care SystemComment on above: Performed By: #### DIFF CBC ####[address] [address] USARBC (Bld) [#/Vol]2.47 10*6/uLLow3.60-5.00The [facility] Physician [facility] Care SystemComment on above:Performed By: #### DIFF CBC ####[address] [address] [place] Segmented neutrophils/100 WBC (Bld)80 %Zrqz92-12Njn [facility] Comment on above:Performed By: #### DIFF CBC ####[address] [address] USAToxic GranulationSAtrium Health Providence Physician [facility] Care SystemComment on above:Performed By: #### DIFF CBC ####[address] [address] USAWBC (Bld) [#/Vol]19.0 10*3/uLHigh3.8-11.6The [facility] Physician GroupComment on above:Performed By: #### DIFF CBC ####[address] [address] USADipstick and Microscopicon 66-25-4733Kqglnfptao (U) CloudyCritically abnormalClearThe [facility] Physician GroupComment on above: Order Comment: Name Collection Type:: Clean-Voided MidstreamPerformed By: #### CUU, ADDONUAPLUS ####[address] [address] USABacteria,UrineNone SeenNormalNone SeenThe [facility] Comment on above:Order Comment: Name Collection Type:: Clean-Voided Midstream Performed By: #### CUU, ADDONUAPLUS ####[address] [id number] USABilirubin,UrineNegativeNormalNegativeAdventhealth Tampa Physician GroupComment on above:Order Comment: Name Collection Type:: Clean- Voided MidstreamPerformed By: #### CUU, ADDONUAPLUS ####[address] USAColor (U)YellowNormalYellowAdventhealth Tampa Physician GroupComment on above:Order Comment: Name Collection Type:: Clean-Voided MidstreamPerformed By: #### CUU, ADDONUAPLUS ####[address] USAGlucose Ql (U)30 mg/dLHigh NormalAdventhealth Tampa Physician GroupComment on above:Order Comment: Name Collection Type:: Clean-Voided MidstreamPerformed By: #### CUU, ADDONUAPLUS ####[address] [address] USAHyaline Casts,UrineNoneNormal0-8The [facility] Physician GroupComment on above:Order Comment: Name Collection Type:: Clean-Voided MidstreamPerformed By: #### CUU, ADDONUAPLUS ####[address] FA[address] USAKetones Ql (U)1+HighNegativeAdventhealth Tampa Physician GroupComment on above: Order Comment: Name Collection Type:: Clean-Voided MidstreamPerformed By: #### CUU, ADDONUAPLUS ####[address] [place] [address] USALeukocyte esterase Test strip Ql (U)2+HighNegativeAdventhealth Tampa Physician GroupComment on above:Order Comment: Name Collection Type:: Clean- Voided MidstreamPerformed By: #### CUU, ADDONUAPLUS ####[address] [id number] USAMucus,UrineRareNormalThe [place]lands Physician GroupComment on above:Order Comment: Name Collection Type:: Clean-Voided MidstreamResult Comment: PERFORMED BY:[place] [address] [address] IZAGUIRRELucilaISIDRO, [place] [phone] MEDICAL DIRECTORCOLLETON MEDICAL CENTER JeannaPerformed By: #### CUU, ADDONUAPLUS ####[address] [place] Nitrite,UrineNegativeNormalNegativeThe [facility] Physician GroupComment on above:Order Comment: Name Collection Type:: Clean-Voided MidstreamPerformed By: #### CUU, ADDONUAPLUS ####[address] USAOccult Blood,UrineTraceHighNegativeThe [facility] Physician GroupComment on above:Order Comment: Name Collection Type:: Clean- Voided MidstreamResult Comment: PERFORMED BY:[address]AB[address] IZAGUIRRELucilaISIDRO, [place] [phone] MEDICAL DIRECTORCOLLETON MEDICAL CENTER JeannaPerformed By: #### CUU, ADDONUAPLUS ####[address] USApH (U) 6.0 [pH]Normal5.0-9.0The [facility] Physician GroupComment on above:Order Comment: Name Collection Type:: Clean-Voided MidstreamPerformed By: #### CUU, ADDONUAPLUS ####[address] [id number] USAProtein (U) [Mass/Vol]50 mg/dLHighNegativeAdventhealth Tampa Physician Group Comment on above:Order Comment: Name Collection Type:: Clean-Voided Midstream Performed By: #### CUU, ADDONUAPLUS ####[address] USARBC,Urine3 [HPF]Normal0-4The [facility] Physician GroupComment on above:Order Comment: Name Collection Type:: Clean-Voided MidstreamPerformed By: #### CUU, ADDONUAPLUS ####[facility] [place], [id number] USASpecificy [place],Urine1.020Normal 1.001-1.030The [facility] Physician GroupComment on above:Order Comment: Name Collection Type:: Clean-Voided MidstreamPerformed By: #### CUU, ADDONUAPLUS ####[address] [place], [id number] USASquamous Epithelial Cell,Urine3 [HPF]High0-2The [facility] Physician GroupComment on above:Order Comment: Name Collection Type:: Clean-Voided MidstreamPerformed By: #### CUU, ADDONUAPLUS ####[address]ab[address]nam[place], [place] USAUrobilinogen,UrineNormalNormalNormalThe [facility] Physician GroupComment on above:Order Comment: Name Collection Type:: Clean- Voided MidstreamPerformed By: #### CUU, ADDONUAPLUS ####[address]namara, [id number] USAWBC,UrineInnumerableHigh0-4The [facility] Physician GroupComment on above:Order Comment: Name Collection Type:: Clean-Voided MidstreamPerformed By: #### CUU, ADDONUAPLUS ####[place] [address] [address], [id number] USAEpithelial cells.squamous [#/area] in Urine sediment by Automated countOrdered By: Tyree Rdz on 05-64-8973Fupflmwymv cells.squamous Auto (Urine sed) [#/Area]Epithelial cells.squamous [#/area] in Urine sediment by Automated countHigh02FCincinnati Children's Hospital Medical CenterErythrocytes [#/area] in Urine sediment by Automated countOrdered By: Tyree Rdz on 30-19-7038UVO Auto (Urine sed) [#/Area] Erythrocytes [#/area] in Urine sediment by Automated count0-4FCincinnati Children's Hospital Medical CenterGlucose [Mass/volume] in Urine by Test stripOrdered By: Tyree Rdz on 91-33-0553Paqdvnf Test strip (U) [Mass/Vol]Glucose [Mass/volume] in Urine by Test stripPlateau Medical CenterNormalSelect Medical [facility] Rehabilitation Hospital, AvonHemoglobin Test strip Ql (U)Ordered By: Tyree Rdz on 48-95-9951Pzxxedmnec Ql (U)Hemoglobin [Presence] in Urine by Test stripPlateau Medical CenterNegKing's Daughters Medical Center [place] Hyaline casts [#/area] in Urine sediment by Automated countOrdered By: Tyree Rdz on 33-18-1792Tocjdvt casts Auto (Urine sed) [#/Area]Hyaline casts [#/area] in Urine sediment by Automated count0-8[facility], AvonHypochromia LM Ql (Bld)Ordered By: Tyree Rdz on 09-22-2024 Hypochromia Ql (Bld)Hypochromia [Presence] in Blood by Light microscopySelect Medical Cleveland Clinic Rehabilitation Hospital, AvonKetones Test strip Ql (U)Ordered By: Tyree Rdz on 02-82-7102Etgmbfd Ql (U)Ketones [Presence] in Urine by Test stripPlateau Medical CenterNegSelect Medical OhioHealth Rehabilitation HospitalLeukocyte esterase [Presence] in Urine by Test stripOrdered By: Tyree Rdz on 55-76-8468Taibqiguh esterase Test strip Ql (U)Leukocyte esterase [Presence] in Urine by Test stripPlateau Medical CenterNegKing's Daughters Medical Center OhioLeukocytes [#/area] in Urine sediment by Automated count Ordered By: Tyree Rdz on 86-20-8812CVB Auto (Urine sed) [#/Area]Leukocytes [#/area] in Urine sediment by Automated countPlateau Medical Center04FCincinnati Children's Hospital Medical CenterMucus [Presence] in Urine by AutomatedOrdered By: Tyree Rdz on 58-45-4915Acyci Auto Ql (U)Mucus [Presence] in Urine by AutomatedSelect Medical [facility] Clinic Rehabilitation Hospital, AvonNitrite Test strip Ql (U)Ordered By: Tyree Rdz on 85-01-9961Uossrqz Ql (U)Nitrite [Presence] in Urine by Test stripNegSelect Medical OhioHealth Rehabilitation HospitalProtein Test strip (U) [Mass/Vol]Ordered By: Tyree Rdz on 06-31-4919Qlrozoe (U) [Mass/Vol]Protein [Mass/volume] in Urine by Test stripHighNegativeSelect Medical Specialty Hospital - Cincinnatipecific gravity Test strip (U) [Rel density]Ordered By: Tyree Rdz on 31-08-0785Gzyogpag gravity (U) [Rel density]Specific gravity of Urine by Test strip1.001-1.030 [facility], AvonUrine Cultureon 24-16-0918Cmxvabxm identified Cx Nom (U)No Growth 2 Days PERFORMED BY: [address] [address] PATHOLOGIST TRAINING MGR ALTHEA MEADOWS M.D.[facility] Physician GroupComment on above: Performed By: #### CUU, ADDONUAPLUS ####[address] USAUrine cultureOrdered By: Tyree Rdz on 74-48-5249Iekjqlhu identified Cx Nom (U)Urine cultureSelect Medical Cleveland Clinic Rehabilitation Hospital, AvonBacteria identified Cx Nom (U)Urine cultureSelect Medical Cleveland Clinic Rehabilitation Hospital, AvonUrobilinogen Test strip (U) [Mass/Vol]Ordered By: Tyree Rdz on 64-08-8289Yluzuswxuqgb (U) [Mass/Vol]Urobilinogen [Mass/volume] in Urine by Test stripNormalSelect Medical [facility] Clinic Rehabilitation Hospital, AvonpH Test strip (U)Ordered By: Tyree Rdz on 81-96-6105aK (U)pH of Urine by Test strip5.0-9.0[facility], AvonBlood Cultureon 36-96-8097Spuyahnn identified Cx Nom (Bld)NO GROWTH 5 DAYS PERFORMED BY: [address] [address] PATHOLOGIST TRAINING MGR ALTHEA MEADOWS M.D.[facility] Physician GroupComment on above: Performed By: #### CUBLD ####[address] [address] USABacteria identified Cx Nom (Bld)NO GROWTH 5 DAYS PERFORMED BY: [address] [address] PATHOLOGIST TRAINING MGR ALTHEA MEADOWS M.D.NormalThe [facility] Physician GroupComment on above: Performed By: #### CUBLD ####[address] [address] USAComprehensive Metabolic Panelon 66-71-1879Dddciza [Mass/Vol]2.6 g/dLLow3.5-5.7The [facility] Physician GroupComment on above: Performed By: #### CMP, DIFF CBC ####[place] [id number] USAAlbumin/Globulin [Mass ratio]0.9 {ratio}NormalThe [facility] Physician GroupComment on above:Performed By: #### CMP, DIFF CBC ####[place] [address] USAALP [Catalytic activity/Vol]144 U/FNycv41-914Qnn [facility] Physician GroupComment on above:Performed By: #### CMP, DIFF CBC ####[place] [address] USAALT [Catalytic activity/Vol]83 U/LHigh7-52The [facility] Physician GroupComment on above:Performed By: #### CMP, DIFF CBC ####[place] [address] USAAnion gap [Moles/Vol]9.8 mmol/LNormal6.0-15.0The [facility] Physician GroupComment on above:Performed By: #### CMP, DIFF CBC ####[place] [address] USAAST [Catalytic activity/Vol]125 U/UZxid97-93 The [facility] Physician GroupComment on above:Performed By: #### CMP, DIFF CBC ####[place] [address] [place] Bilirubin [Mass/Vol]0.6 mg/dLNormal0.3-1.0The [facility] Physician GroupComment on above:Performed By: #### CMP, DIFF CBC ####[place] [address] USACalcium [Mass/Vol]8.0 mg/dLLow8.6-10.3The [facility] Physician GroupComment on above:Performed By: #### CMP, DIFF CBC ####[place] [address] [place] Chloride [Moles/Vol]104 mmol/ACcfxng60-242Ill [facility] Physician GroupComment on above:Performed By: #### CMP, DIFF CBC ####[place] [address] USACO2 [Moles/Vol]26.1 mmol/FFethyg51.0-31.0The [facility] Physician GroupComment on above:Performed By: #### CMP, DIFF CBC ####[place] [address] [place] Creatinine [Mass/Vol]0.67 mg/dLNormal0.60-1.20The [facility] Comment on above:Performed By: #### CMP, DIFF CBC ####[place] [address] USACreatinine Clr Calc Bzanmlib66.66 NormalAdventhealth Tampa Physician GroupComment on above:Result Comment: PERFORMED BY:[address] [place], [place] [phone] MEDICAL DIRECTORALTHEA MEADOWS M.D.Performed By: #### CMP, DIFF CBC ####[place] [address] USAGFR/1.73 sq M.predicted MDRD (S/P/Bld) [Vol rate/Area]mL/min/{1.73_m2} NormalThe [facility] Physician [facility] Care SystemComment on above:Performed By: #### CMP, DIFF CBC ####[place] [id number] [place] Globulin (S) [Mass/Vol]2.9 g/dLNormalThe [facility] Physician [facility] Care SystemComment on above:Performed By: #### CMP, DIFF CBC ####[place] [address] USAGlucose [Mass/Vol]110 mg/bGYlsk66-962Sjy [facility] Physician GroupComment on above:Result Comment: Random Glucose Reference Range is dependent on time and content of last meal. Glucose of more than 200 mg/dL in a nonstressed, ambulatory subject supports the diagnosis of Diabetes Mellitus. ADA recommended reference rangePerformed By: #### CMP, DIFF CBC ####[place] [id number] [facility] Potassium [Moles/Vol]3.9 mmol/LNormal3.5-5.1The [facility] Physician GroupComment on above:Performed By: #### CMP, DIFF CBC ####[address] [address] USAProtein [Mass/Vol]5.5 g/dLLow6.4-8.9 The [facility] Physician GroupComment on above:Performed By: #### CMP, DIFF CBC ####[address] [address] USASodium [Moles/Vol]136 mmol/KVfpqoe121-279Mah [facility] Physician GroupComment on above: Performed By: #### CMP, DIFF CBC ####[address] [address] USAUrea nitrogen [Mass/Vol]12 mg/dLNormal7-25The [facility]ly [facility] Physician GroupComment on above:Performed By: #### CMP, DIFF CBC ####[address] [address] USADiff and CBCon 72-26-5025Ganqofwkrbol Ql (Bld)SlightNormalThe Formerly [facility] Physician GroupComment on above:Performed By: #### CMP, DIFF CBC ####[address] [address] USABand form neutrophils/100 WBC (Bld)3 %Normal0-5The [facility] Physician GroupComment on above:Performed By: #### CMP, DIFF CBC ####[address] [address] USAErythrocyte distribution width (RBC) [Ratio]15.0 %Jptkrw70.9-15.3The [facility] Physician GroupComment on above:Performed By: #### CMP, DIFF CBC ####[place] [id number] [facility] Hematocrit (Bld) [Volume fraction]23.0 %Low34.0-46.4The Former[facility] Physician GroupComment on above:Performed By: #### CMP, DIFF CBC ####[place] [address] USAHemoglobin (Bld) [Mass/Vol]7.8 g/dLLow11.8-15.4The [facility]ly [facility] Physician GroupComment on above:Performed By: #### CMP, DIFF CBC ####[place] [id number] USALymphocytes/100 WBC (Bld)3 %Blb80-69Ltg [facility] Comment on above:Performed By: #### CMP, DIFF CBC ####[place] [id number] [facility]ITALM[facility] (RBC) [Entitic mass]31.2 pgNormal 24.7-34.3The [facility] Physician GroupComment on above:Performed By: #### CMP, DIFF CBC ####[place] [id number] [facility]MCV (RBC) [Entitic vol]92.0 sZRappok08-304Blq [facility] Comment on above:Performed By: #### CMP, DIFF CBC ####[place] [id number] USAMean Corpuscular HGB Conc33.9 g/dL Lkoipm38.0-35.0The Formerly [facility] Physician GroupComment on above:Performed By: #### CMP, DIFF CBC ####[place] [id number] USAMetamyelocytes5 %High0-0The Formerly [facility] Physician GroupComment on above: Performed By: #### CMP, DIFF CBC ####[place] [id number] USAMonocytes/100 WBC (Bld)4 %Normal2-11The Formerly [facility] Physician GroupComment on above:Performed By: #### CMP, DIFF CBC ####[address] [address] USAMyelocytes5 %High0-0 The Formerly [facility] Physician GroupComment on above:Performed By: #### CMP, DIFF CBC ####[address] [address] [place] Platelet EstimateDecreasedNormalNormSanta Rosa Medical Center Physician GroupComment on above:Performed By: #### CMP, DIFF CBC ####[address] [address] USAPlatelet mean volume (Bld) [Entitic vol]9.4 fL Normal6.3-10.7The Formerly [facility] Physician GroupComment on above:Result Comment: PERFORMED BY:[place] [address] [address] IZAGUIRRELucilaISIDRO, [place] [phone] MEDICAL DIRECTORMONEGRITA MEADOWS M.D. Performed By: #### CMP, DIFF CBC ####[address] [address] USAPlatelet MorphologyNormalNormHCA Florida Pasadena Hospital Physician GroupComment on above:Result Comment: PERFORMED BY:[address]ABIMA[address] IZAGUIRRELucilaISIDRO, [place] [phone] MEDICAL DIRECTORMONEGRITA MEADOWS M.D.Performed By: #### CMP, DIFF CBC ####[address] [address] [place] Platelets (Bld) [#/Vol]97 10*3/uLSignificant change clfm656-287Kpw Formerly [facility] Physician GroupComment on above:Performed By: #### CMP, DIFF CBC ####[address] [address] USAPolychromasiaSlight NormalThe Formerly [facility] Physician GroupComment on above:Performed By: #### CMP, DIFF CBC ####[address] [address] [place] Promyelocytes1 %High0-0The Formerly [facility] Physician GroupComment on above:Performed By: #### CMP, DIFF CBC ####[place] [address] [place] [address] USARBC (Bld) [#/Vol]2.50 10*6/uLLow3.60-5.00The Formerly [facility] Physician GroupComment on above:Performed By: #### CMP, DIFF CBC ####[place] [phone] [place] Segmented neutrophils/100 WBC (Bld)80 %Omvu79-50Owv [facility] Comment on above:Performed By: #### CMP, DIFF CBC ####[place] [phone] USAWBC (Bld) [#/Vol]17.0 10*3/uLHigh 3.8-11.6The Formerly [facility] Physician GroupComment on above:Performed By: #### CMP, DIFF CBC ####[place] [address] USALaboratory - Microbiology and Antimicrobial susceptibilityOrdered By: Tyree Rdz on 76-11-2580Hgcaaaek identified Cx Nom (Bld)NO GROWTH 5 DAYSSelect [facility], AvonBacteria identified Cx Nom (Bld)NO GROWTH 5 [facility] HospitalBacteria identified Cx Nom (Bld)NO GROWTH 5 DAYS [facility], AvonBacteria identified Cx Nom (Bld)NO GROWTH 5 DAYSSelect [facility], AvonX-ray reportOrdered By: Beck Negrete on 00-07-0826Lpvbt reportAVITA HEALTH SYSTEM [facility] [place] [address] [place] [address] XRay Report Signed Patient: Adelina Mir MR#: [id number] : 1960 Acct:[id number] Age/Sex: 63 / F ADM Date: 5 Loc: Room: [address] [place] [address] Type: ADM IN Attending Dr: Tyree Rdz MD Copies to: Tyree Rdz MD~ Ordering Provider: Tyree Rdz MD Date of Service: 09/21/24 XR/XR chest 2V*: crackles PA AND LATERAL CHEST: CLINICAL HISTORY: Productive cough right lower chest pain worse with deep inspiration, being treated for pneumonia COMPARISON: CT angiogram chest 09/17/2024 FINDINGS: Right-sided Tbpnqo-h-Xays unchanged. Patchy right lower lobe opacity best seen laterally. Persistent right middle lobe consolidation. There is no no effusionor pneumothorax. XR/XR chest 2V* IMPRESSION: RIGHT LOWER LOBE AND RIGHT MIDDLE LOBE CONSOLIDATION SUGGESTIVE OF PNEUMONIA. FOLLOW-UP TO ENSURE RESOLUTION FOLLOWING MEDICAL TREATMENT COURSE IS RECOMMENDED. Impression dictated by: Beck Negrete M.D.09/21/2024 4:40 PM Dictation Location: [facility]29 Transcribed By: [facility] 09/21/24 1640 Dictated By: Beck Negrete MD 09/21/24 1637 Signed By: 09/21/[address] [place] [address] Work Phone: XR chest 2V*on 32-29-2538RT chest 2V*NormalThe Formerly [facility] Physician GroupComplete Blood Count Auto Diffon 35-82-8503Oqljyjouyvx distribution width (RBC) [Ratio]14.7 %Khsofr15.9-15.3The [facility] - PoconoComment on above:Performed By: #### CMP, CBC, DIFF CBC ####[place] [address] [place] [id number] USAHematocrit (Bld) [Volume fraction]22.0 %Low34.0-46.4The [facility] Physician [facility] Care SystemComment on above:Performed By: #### CMP, CBC, DIFF CBC ####[place] [phone] USAHemoglobin (Bld) [Mass/Vol]7.4 g/dLLow 11.8-15.4The [facility] PoconoComment on above:Performed By: #### CMP, CBC, DIFF CBC ####[place] [phone] [facility] ELK CITYH (RBC) [Entitic mass]30.7 waHhbbwr44.7-34.3The [facility] Physician [facility] Care SystemComment on above:Performed By: #### CMP, CBC, DIFF CBC ####[address] [address] USAMCV (RBC) [Entitic vol]91.3 jETtpjcx94-348Hjr Formerly [facility] Physician GroupComment on above:Performed By: #### CMP, CBC, DIFF CBC ####[address] [address] USAMean Corpuscular HGB Conc33.6 g/dALswbxy35.0-35.0The Formerly [facility] Physician GroupComment on above:Performed By: #### CMP, CBC, DIFF CBC ####[address] [address] [place] Platelet mean volume (Bld) [Entitic vol]9.7 fLNormal6.3-10.7The Formerly [facility] Physician GroupComment on above:Result Comment: PERFORMED BY:[address] [place], [place] [phone] MEDICAL DIRECTORALTHEA MEADOWS M.D.Performed By: #### CMP, CBC, DIFF CBC ####[address] [address] [place] Platelets (Bld) [#/Vol]61 10*3/uLSignificant change sxmm785-740Xkn Formerly [facility] Physician GroupComment on above:Performed By: #### CMP, CBC, DIFF CBC ####[address] [address] USARBC (Bld) [#/Vol]2.41 10*6/uLLow3.60-5.00The [facility] Physician [facility] Care SystemComment on above:Performed By: #### CMP, CBC, DIFF CBC ####[address] [address] USAWBC (Bld) [#/Vol]12.9 10*3/uLHigh 3.8-11.6The [facility] Physician [facility] Care SystemComment on above:Performed By: #### CMP, CBC, DIFF CBC ####[place] [phone] USAComprehensive Metabolic Panelon 55-74-8886Bebobde [Mass/Vol]2.5 g/dLLow 3.5-5.7The Formerly [facility] Physician GroupComment on above:Performed By: #### CMP, CBC, DIFF CBC ####[place] [phone] USAAlbumin/Globulin [Mass ratio]0.9 {ratio}NormalThe Formerly [facility] Physician [facility] Care SystemComment on above:Performed By: #### CMP, CBC, DIFF CBC ####[place] [phone] USAALP [Catalytic activity/Vol]145 U/DInyt91-653Uug [facility] PoconoComment on above: Performed By: #### CMP, CBC, DIFF CBC ####[place] [phone] USAALT [Catalytic activity/Vol]59 U/LHigh7-52The [facility] PoconoComment on above:Performed By: #### CMP, CBC, DIFF CBC ####[place] [phone] USAAnion gap [Moles/Vol]8.5 mmol/LNormal6.0-15.0The Formerly [facility] Physician GroupComment on above:Performed By: #### CMP, CBC, DIFF CBC ####[place] [phone] USAAST [Catalytic activity/Vol]79 U/LHigh 13-39The [facility] Physician [facility] Care SystemComment on above:Performed By: #### CMP, CBC, DIFF CBC ####[place] [phone] USABilirubin [Mass/Vol]0.6 mg/dLNormal0.3-1.0The [facility] Comment on above:Performed By: #### CMP, CBC, DIFF CBC ####[place] [phone] USACalcium [Mass/Vol]7.9 mg/dLLow 8.6-10.3The Formerly [facility] Physician GroupComment on above:Performed By: #### CMP, CBC, DIFF CBC ####[address] [place] [address] USAChloride [Moles/Vol]104 mmol/FKhahkc58-506Qbs [facility] Comment on above:Performed By: #### CMP, CBC, DIFF CBC ####[address] [address] USACO2 [Moles/Vol]26.8 mmol/L Xygohk00.0-31.0The Formerly [facility] Physician GroupComment on above:Performed By: #### CMP, CBC, DIFF CBC ####[address] [address] USACreatinine [Mass/Vol]0.68 mg/dLNormal0.60-1.20The Formerly [facility] Physician GroupComment on above:Performed By: #### CMP, CBC, DIFF CBC ####[address] [address] [place] Creatinine Clr Calc Knekuzlf23.42NormSanta Rosa Medical Center Physician GroupComment on above:Result Comment: PERFORMED BY:[address] [phone] MEDICAL DIRECTORALTHEA JIMENEZ M.D.Performed By: #### CMP, CBC, DIFF CBC ####[address] [address] USAGFR/1.73 sq M.predicted MDRD (S/P/Bld) [Vol rate/Area]mL/min/{1.73_m2}NormalThe [facility] Comment on above:Performed By: #### CMP, CBC, DIFF CBC ####[address] [address] USAGlobulin (S) [Mass/Vol]2.7 g/dLNoFormerly [facility] Physician GroupComment on above:Performed By: #### CMP, CBC, DIFF CBC ####[address] [address] USAGlucose [Mass/Vol]108 mg/lKHsjv26-675Egi [facility] Comment on above:Result Comment: Random Glucose Reference Range is dependent on time and content of last meal. Glucose of more than 200 mg/dL in a nonstressed, ambulatory subject supports the diagnosis of Diabetes Mellitus. ADA recommended reference rangePerformed By: #### CMP, CBC, DIFF CBC ####[place] [address] USAPotassium [Moles/Vol]3.3 mmol/LLow3.5-5.1[facility]ician [facility] Care SystemComment on above:Performed By: #### CMP, CBC, DIFF CBC ####[place] [phone] USAProtein [Mass/Vol]5.2 g/dLLow6.4-8.9The [facility] Physician [facility] Comment on above:Performed By: #### CMP, CBC, DIFF CBC ####[place] [address] USASodium [Moles/Vol]136 mmol/L Dyrdlw448-294Tbc [facility]ician [facility] Care SystemComment on above:Performed By: #### CMP, CBC, DIFF CBC ####[place] [phone] USAUrea nitrogen [Mass/Vol]14 mg/dLNormal7-25The [facility] Physician [facility] SystemComment on above:Performed By: #### CMP, CBC, DIFF CBC ####[place] [phone] USADiff and CBCon 11-84-0918Puurrevntjml Ql (Bld)SlightNormalThe [facility] Physician [facility] SystemComment on above:Performed By: #### CMP, CBC, DIFF CBC ####[place] [phone] USABand form neutrophils/100 WBC (Bld)3 % Normal0-5The [facility]ician [facility] SystemComment on above:Performed By: #### CMP, CBC, DIFF CBC ####[place] [phone] USALymphocytes/100 WBC (Bld)4 %Wcc41-36Ymn [facility] Comment on above:Performed By: #### CMP, CBC, DIFF CBC ####[place] [phone] USAMetamyelocytes3 %High0-0The Former[facility] Physician GroupComment on above:Performed By: #### CMP, CBC, DIFF CBC ####[address] [address] [place] Monocytes/100 WBC (Bld)8 %Normal2-11The Former[facility] Physician GroupComment on above:Performed By: #### CMP, CBC, DIFF CBC ####[address] [address] USAMyelocytes1 %High0-0The [facility] Physician GroupComment on above:Performed By: #### CMP, CBC, DIFF CBC ####[address] [address] [place] Platelet EstimateDecreasedNormalNormalThe [facility] Physician [facility] SystemComment on above:Performed By: #### CMP, CBC, DIFF CBC ####[address] [address] USAPlatelet MorphologyNormalNormalNormal The Formerly [facility] Physician GroupComment on above:Result Comment: PERFORMED BY:[address] [place], [place] [phone] MEDICAL DIRECTORALTHEA MEADOWS M.D.Performed By: #### CMP, CBC, DIFF CBC ####[address] [address] USAPromyelocytes1 %High0-0The [facility] Physician GroupComment on above:Performed By: #### CMP, CBC, DIFF CBC ####[address] [address] USASegmented neutrophils/100 WBC (Bld)81 %Ljcv78-33Gxj [facility] Physician GroupComment on above:Performed By: #### CMP, CBC, DIFF CBC ####[address] [address] USAComprehensive Metabolic Panelon 75-04-3464Iqowwhq [Mass/Vol]2.8 g/dLLow 3.5-5.7The [facility] Physician GroupComment on above:Performed By: #### DIFF CBC, CMP ####[place] [address] [place] [address] USAAlbumin/Globulin [Mass ratio]1.0 {ratio}NormalThe [facility]ician [facility] Comment on above:Performed By: #### DIFF CBC, CMP ####[place] [address] [place] [address] USAALP [Catalytic activity/Vol]161 U/L Dnpe92-261Ncb [facility] Physician GroupComment on above:Performed By: #### DIFF CBC, CMP ####[address] [address] USAALT [Catalytic activity/Vol]56 U/LHigh7-52The [facility] Comment on above:Performed By: #### DIFF CBC, CMP ####[address] [address] USAAnion gap [Moles/Vol]10.5 mmol/LNormal 6.0-15.0The [facility] Physician GroupComment on above:Performed By: #### DIFF CBC, CMP ####[address] [address] USAAST [Catalytic activity/Vol]69 U/MQobn03-62Wsh [facility] Comment on above:Performed By: #### DIFF CBC, CMP ####[address] [address] USABilirubin [Mass/Vol]0.8 mg/dLNormal 0.3-1.0The [facility] Physician GroupComment on above:Performed By: #### DIFF CBC, CMP ####[address] [address] USACalcium [Mass/Vol]8.3 mg/dLLow8.6-10.3The [facility] Physician GroupComment on above:Performed By: #### DIFF CBC, CMP ####[address] [address] USAChloride [Moles/Vol]106 mmol/SUguiiq75-617Azt [facility] Physician GroupComment on above:Performed By: #### DIFF CBC, CMP ####[address] [address] USACO2 [Moles/Vol]25.0 mmol/IZnrcyt25.0-31.0The [facility] Physician GroupComment on above:Performed By: #### DIFF CBC, CMP ####[address] [address] USACreatinine [Mass/Vol]0.82 mg/dLNormal0.60-1.20 The [facility] Physician GroupComment on above:Performed By: #### DIFF CBC, CMP ####[address] [address] [place] Creatinine Clr Calc Fqtkexjw76.49NoFormerly [facility] Physician GroupComment on above:Result Comment: PERFORMED BY:[address] [place], [place] [phone] MEDICAL DIRECTORALTHEA JIMENEZ M.D.Performed By: #### DIFF CBC, CMP ####[place] [id number] USAGFR/1.73 sq M.predicted MDRD (S/P/Bld) [Vol rate/Area]mL/min/{1.73_m2}NormalThe [facility] Physician [facility] Care SystemComment on above:Performed By: #### DIFF CBC, CMP ####[address] [address] USAGlobulin (S) [Mass/Vol]2.9 g/dLNoFormerly [facility] Physician [facility] SystemComment on above:Performed By: #### DIFF CBC, CMP ####[place] [phone] USAGlucose [Mass/Vol]104 mg/eLUqkw70-855Yla [facility] Physician GroupComment on above: Result Comment: Random Glucose Reference Range is dependent on time and content of last meal. Glucose of more than 200 mg/dL in a nonstressed, ambulatory subject supports the diagnosis of Diabetes Mellitus. ADA recommended reference rangePerformed By: #### DIFF CBC, CMP ####[place] [id number] USAPotassium [Moles/Vol]3.5 mmol/LNormal3.5-5.1 [facility] Physician GroupComment on above:Performed By: #### DIFF CBC, CMP ####[place] [address] USAProtein [Mass/Vol]5.7 g/dLLow6.4-8.9The [facility] Physician GroupComment on above: Performed By: #### DIFF CBC, CMP ####[place] [address] USASodium [Moles/Vol]138 mmol/ZUkbjbu531-299Meg [facility] Physician GroupComment on above:Performed By: #### DIFF CBC, CMP ####[place] [address] USAUrea nitrogen [Mass/Vol]22 mg/dLNormal7-25The [facility] Physician GroupComment on above:Performed By: #### DIFF CBC, CMP ####[place] [address] USADiff and CBCon 35-60-3144Ciaoemhxyhuq Ql (Bld) SlightNormalThe Formerly [facility] Physician GroupComment on above:Performed By: #### DIFF CBC, CMP ####[place] [address] USABand form neutrophils/100 WBC (Bld)2 %Normal0-5The [facility] Physician GroupComment on above:Performed By: #### DIFF CBC, CMP ####[place] [address] USAErythrocyte distribution width (RBC) [Ratio]14.7 %Ogophf49.9-15.3The [facility] Physician GroupComment on above:Performed By: #### DIFF CBC, CMP ####[place] [address] USAGiant Platelet Tally1 /100{WBC}NormalThe [facility] Physician [facility] Care SystemComment on above:Performed By: #### DIFF CBC, CMP ####[address] Hematocrit (Bld) [Volume fraction]22.6 %Low34.0-46.4The [facility] Physician GroupComment on above:Performed By: #### DIFF CBC, CMP ####[place] [address] USAHemoglobin (Bld) [Mass/Vol]7.7 g/dLLow11.8-15.4The [facility] Physician GroupComment on above:Performed By: #### DIFF CBC, CMP ####[place] [address] USAHypochromasiaSlightNormalThe Formerly [facility] Physician GroupComment on above:Performed By: #### DIFF CBC, CMP ####[place] [id number] USALymphocytes/100 WBC (Bld)5 %Uhu82-88Mik [facility] Physician GroupComment on above:Performed By: #### DIFF CBC, CMP ####[address] StreetMCH (RBC) [Entitic mass]30.9 anGsieuu75.7-34.3The [facility] Physician GroupComment on above:Performed By: #### DIFF CBC, CMP ####[place] [id number] USAMCV (RBC) [Entitic vol]90.8 jIJpfadm95-696Tqj [facility] Physician GroupComment on above:Performed By: #### DIFF CBC, CMP ####[place] [address] USAMean Corpuscular HGB Conc34.0 g/bAProkye16.0-35.0The [facility] Physician GroupComment on above:Performed By: #### DIFF CBC, CMP ####[place] [id number] USAMetamyelocytes5 %High0-0The [facility] Physician GroupComment on above:Performed By: #### DIFF CBC, CMP ####[place] [id number] USAMonocytes/100 WBC (Bld)11 %Normal2-11The [facility] Physician GroupComment on above:Performed By: #### DIFF CBC, CMP ####[place] [address] [place] [address] USAMyelocytes3 %High0-0The [facility] Physician GroupComment on above: Performed By: #### DIFF CBC, CMP ####[address] [address] USANucleated Red Blood Cell1 /100{WBC}High0-0The [facility] Physician GroupComment on above:Performed By: #### DIFF CBC, CMP ####[address] [address] USA OvalocytesSlightNormSanta Rosa Medical Center Physician GroupComment on above:Performed By: #### DIFF CBC, CMP ####[address] [address] USAPlatelet EstimateDecreasedNormalNormSanta Rosa Medical Center Physician GroupComment on above:Performed By: #### DIFF CBC, CMP ####[address] [address] USAPlatelet mean volume (Bld) [Entitic vol]9.3 fLNormal6.3-10.7The [facility] Physician GroupComment on above:Result Comment: PERFORMED BY:[place] [address] [address] BOATENGISIDRO, [place] [phone] MEDICAL DIRECTORMONEGRITA JIMENEZ M.D.Performed By: #### DIFF CBC, CMP ####[address] [address] USAPlatelet MorphologyNormalNormalNormal The [facility] Physician GroupComment on above:Result Comment: PERFORMED BY:[address] [place], [place] [phone] MEDICAL DIRECTORALTHEA MEADOWS M.D.Performed By: #### DIFF CBC, CMP ####[address] [address] USAPlatelets (Bld) [#/Vol]38 10*3/uLOff scale ukr966-924Xry [facility] Physician GroupComment on above:Result Comment: Critical value result called at 0653 on 09/19/24Performed By: #### DIFF CBC, CMP ####[address] [address] USAPolychromasiaSAtrium Health Providence Physician GroupComment on above:Performed By: #### DIFF CBC, CMP ####[address] [address] USARBC (Bld) [#/Vol]2.49 10*6/uLLow3.60-5.00The [facility] Physician GroupComment on above:Performed By: #### DIFF CBC, CMP ####[address] [address] USAReactive Lymphocytes1 %Normal0-12The [facility] Comment on above:Performed By: #### DIFF CBC, CMP ####[address] [address] USASchistocytesSAtrium Health Providence Physician GroupComment on above:Performed By: #### DIFF CBC, CMP ####[address] [address] USASegmented neutrophils/100 WBC (Bld)73 %Uknc81-53Nnh [facility] Physician GroupComment on above:Performed By: #### DIFF CBC, CMP ####[address] [address] USAToxic GranulationModerateAdventHealth Brandon ER Physician GroupComment on above:Performed By: #### DIFF CBC, CMP ####[address] [address] USAWBC (Bld) [#/Vol]10.8 10*3/uLNormal3.8-11.6The [facility] Physician GroupComment on above:Performed By: #### DIFF CBC, CMP ####[address] [address] USABacteria identification by sterile body fluid cultureOrdered By: Roshan Reynoso on 96-83-1506Ialihjeu identified Sterile body fluid culture Nom (Unsp spec)Bacteria identification by sterile body fluid culture.[facility], AvonBacteria identification detection in isolate by cultureOrdered By: Roshan Reynoso on 71-86-5533Ysxwujvb Identification Cx Ql (Isol)Bacteria identification detection in isolate by culture.[facility], AvonBlood Cultureon 04-25-1220Wlgzzcyp identified Cx Nom (Bld)NO GROWTH 5 DAYS PERFORMED BY: [facility] [address] [place] [id number] PATHOLOGIST TRAINING MGR ALTHEA MEADOWS M.D.NormalThe Formerly [facility] Physician GroupComment on above: Performed By: #### CUBLD ####[place] [id number] USAComprehensive Metabolic Panelon 66-06-3064Welcqwi [Mass/Vol]3.0 g/dLLow3.5-5.7The [facility] Physician GroupComment on above: Performed By: #### DIFF CBC, PT, MG, CMP ####[place] [id number] USAAlbumin/Globulin [Mass ratio]1.0 {ratio}Normal The Formerly [facility]in [facility] Physician [facility] Care SystemComment on above:Performed By: #### DIFF CBC, PT, MG, CMP ####[place] [id number] USAALP [Catalytic activity/Vol]116 U/JOefa08-219Sws [facility] Comment on above:Performed By: #### DIFF CBC, PT, MG, CMP ####[place] [id number] USAALT [Catalytic activity/Vol]55 U/LHigh7-52The [facility] - PoconoComment on above:Performed By: #### DIFF CBC, PT, MG, CMP ####[place] [id number] USAAnion gap [Moles/Vol]11.9 mmol/LNormal6.0-15.0The [facility] Physician [facility] Care SystemComment on above:Performed By: #### DIFF CBC, PT, MG, CMP ####[address] [place] [address] USAAST [Catalytic activity/Vol]45 U/YAprz71-19Jym [facility] Physician GroupComment on above: Performed By: #### DIFF CBC, PT, MG, CMP ####[place] [address] USABilirubin [Mass/Vol]1.4 mg/dLHigh0.3-1.0The [facility] Physician GroupComment on above:Result Comment: Samples from patients who have taken Naproxen have shown spurious elevation in Total Bilirubin levels. A metabolite of Naproxen, O-desmethylnaproxen, has been shown to interfere with the Erin-Stan method for measuring Total Bilirubin.Performed By: #### DIFF CBC, PT, MG, CMP ####[place] [address] USACalcium [Mass/Vol]8.3 mg/dLLow8.6-10.3The [facility] Physician GroupComment on above:Performed By: #### DIFF CBC, PT, MG, CMP ####[place] [address] [place] Chloride [Moles/Vol]101 mmol/XJqndti24-627Lxk [facility] Physician GroupComment on above:Performed By: #### DIFF CBC, PT, MG, CMP ####[place] [address] USACO2 [Moles/Vol]26.2 mmol/LNormal 21.0-31.0The [facility] Physician GroupComment on above:Performed By: #### DIFF CBC, PT, MG, CMP ####[place] [address] USACreatinine [Mass/Vol]1.02 mg/dLNormal0.60-1.20The [facility] Physician GroupComment on above:Performed By: #### DIFF CBC, PT, MG, CMP ####[place] [address] USACreatinine Clr Calc Mqnlfozv68.17NormalThe [facility] Physician GroupComment on above:Performed By: #### DIFF CBC, PT, MG, CMP ####[place] [address] [place] [address] USAGFR/1.73 sq M.predicted MDRD (S/P/Bld) [Vol rate/Area]mL/min/{1.73_m2}NormalThe [facility] Physician GroupComment on above: Performed By: #### DIFF CBC, PT, MG, CMP ####[place] [phone] USAGlobulin (S) [Mass/Vol]3.0 g/dLNormalThe [facility] Physician GroupComment on above:Performed By: #### DIFF CBC, PT, MG, CMP ####[place] [address] [place] Glucose [Mass/Vol]102 mg/bPRwdk85-474Nwg [facility] Physician GroupComment on above:Result Comment: Random Glucose Reference Range is dependent on time and content of last meal. Glucose of more than 200 mg/dL in a nonstressed, ambulatory subject supports the diagnosis of Diabetes Mellitus. ADA recommended reference rangePerformed By: #### DIFF CBC, PT, MG, CMP ####[place] [id number] USAPotassium [Moles/Vol]3.1 mmol/LLow3.5-5.1The [facility] Physician GroupComment on above:Performed By: #### DIFF CBC, PT, MG, CMP ####[place] [id number] USAProtein [Mass/Vol]6.0 g/dLLow6.4-8.9The [facility]ician GroupComment on above:Performed By: #### DIFF CBC, PT, MG, CMP ####[place] [phone] USASodium [Moles/Vol]136 mmol/NGvwylm090-122Beg [facility]ician GroupComment on above: Performed By: #### DIFF CBC, PT, MG, CMP ####[place] [phone] USAUrea nitrogen [Mass/Vol]43 mg/dLHigh7-25The [facility] GroupComment on above:Performed By: #### DIFF CBC, PT, MG, CMP ####[address] Diff and CBCon 73-31-1470Abml form neutrophils/100 WBC (Bld)2 %Normal0-5The [facility] Physician GroupComment on above:Performed By: #### DIFF CBC, PT, MG, CMP ####[address] Basophils/100 WBC (Bld)0 %Normal0-2The [facility] Physician GroupComment on above:Performed By: #### DIFF CBC, PT, MG, CMP ####[place] [address] USADohle Bibb Medical Center Physician GroupComment on above:Performed By: #### DIFF CBC, PT, MG, CMP ####[address] Eosinophils/100 WBC (Bld)0 %Low1-3The [facility] Physician GroupComment on above: Performed By: #### DIFF CBC, PT, MG, CMP ####[place] [address] USAErythrocyte distribution width (RBC) [Ratio] 14.2 %Ibtizp10.9-15.3The [facility] Physician GroupComment on above:Performed By: #### DIFF CBC, PT, MG, CMP ####[place] [address] USAHematocrit (Bld) [Volume fraction]22.0 %Low34.0-46.4 The [facility] Physician GroupComment on above:Performed By: #### DIFF CBC, PT, MG, CMP ####[place] [address] USAHemoglobin (Bld) [Mass/Vol]7.7 g/dLLow11.8-15.4The [facility] Comment on above:Performed By: #### DIFF CBC, PT, MG, CMP ####[address]Lymphocytes/100 WBC (Bld)7 % Qfg25-94Qwx [facility] Physician GroupComment on above:Performed By: #### DIFF CBC, PT, MG, CMP ####[address] [address] [facility] CITYH (RBC) [Entitic mass]31.5 saYhmfmf87.7-34.3The [facility] Physician GroupComment on above:Performed By: #### DIFF CBC, PT, MG, CMP ####[address] [address] [facility] CITYV (RBC) [Entitic vol]90.5 hCAnvltz72-615Jyy [facility] Physician GroupComment on above:Performed By: #### DIFF CBC, PT, MG, CMP ####[place] [address] USAMean Corpuscular HGB Conc34.8 g/rLCbqdfy80.0-35.0The [facility] Physician GroupComment on above:Performed By: #### DIFF CBC, PT, MG, CMP ####[address] [address] [place] Monocytes/100 WBC (Bld)23 %High2-11The [facility] Physician GroupComment on above:Performed By: #### DIFF CBC, PT, MG, CMP ####[address] [address] USAMyelocytes4 %High0-0The [facility] Physician GroupComment on above:Performed By: #### DIFF CBC, PT, MG, CMP ####[place] [phone] [place] Platelet EstimateDecreasedNormalNormalThe [facility] Physician GroupComment on above:Performed By: #### DIFF CBC, PT, MG, CMP ####[place] [id number] USAPlatelet mean volume (Bld) [Entitic vol]9.0 fLNormal6.3-10.7The [facility]ician GroupComment on above:Result Comment: PERFORMED BY:[place] [address] [address] IZAGUIRRELucilaISID[place], [place] [phone] MEDICAL DIRECTORALTHEA MEADOWS M.D. Performed By: #### DIFF CBC, PT, MG, CMP ####[address] [address] USAPlatelet MorphologyNormalNormalNormSanta Rosa Medical Center Physician GroupComment on above:Result Comment: PERFORMED BY:[address]AB[address] [place]GA[place], [place] [phone] MEDICAL DIRECTORALTHEA MEADOWS M.D.Performed By: #### DIFF CBC, PT, MG, CMP ####[place] [phone] [place] Platelets (Bld) [#/Vol]25 10*3/uLOff scale ayj281-170Fpm [facility] Physician GroupComment on above:Performed By: #### DIFF CBC, PT, MG, CMP ####[place] [address] USAPromyelocytes2 %High 0-0The [facility] Physician GroupComment on above:Performed By: #### DIFF CBC, PT, MG, CMP ####[place] [address] USARBC (Bld) [#/Vol]2.43 10*6/uLLow3.60-5.00The [facility] Comment on above:Performed By: #### DIFF CBC, PT, MG, CMP ####[place] [phone] USARBC morphology finding Nom (Bld)NormalNormalNormSanta Rosa Medical Center Physician [facility] Care SystemComment on above:Performed By: #### DIFF CBC, PT, MG, CMP ####[place] [phone] USASegmented neutrophils/100 WBC (Bld)62 %Sdlraj16-91 The [facility] Physician GroupComment on above:Performed By: #### DIFF CBC, PT, MG, CMP ####[address] [place] [address] USAToxic GranulationModerateNormalThe [facility] Physician [facility] Care SystemComment on above: Performed By: #### DIFF CBC, PT, MG, CMP ####[place] [address] [place] [address] USAWBC (Bld) [#/Vol]6.5 10*3/uLNormal3.8-11.6The [facility] Physician GroupComment on above:Performed By: #### DIFF CBC, PT, MG, CMP ####[place] [address] [place] [address] [place] Dohle body [Presence] in Blood by Light microscopyOrdered By: Joe Garcia on 98-90-4545Jovbq body LM Ql (Bld)Dohle bodies detectionSelect Medical Cleveland Clinic Rehabilitation Hospital, AvonEosinophils/100 WBC Manual cnt (Bld)Ordered By: Joe Garcia on 87-89-6282Ghsdlymhted/100 WBC (Bld)Eosinophils/100 leukocytes in Blood by Manual countLow1-3FCincinnati Children's Hospital Medical CenterINR in Platelet poor plasma by Coagulation assayOrdered By: Joe Garcia on 35-18-2746ECA Coag (PPP) [Relative time]INR in Platelet poor plasma by Coagulation assaySelect Medical Cleveland Clinic Rehabilitation Hospital, AvonComment on above:INR Therapeutic Range A) Pre- and Peroperative OAT started two weeks before surgery. NOT HIP SURGERY: 1.5 - 2.5 HIP SURGERY: 2 - 3B) Primary and secondary prevention of venous THROMBOSIS: 2 - 3C) Active venous thrombosis, pulmonary embolismand prevention of recurrent venous thrombosis: 2 - 3D) Prevention of arterial thromboembolismincluding patients with mechanical heart valves: 3 - 4.5Laboratory - Microbiology and Antimicrobial susceptibilityOrdered By: Roshan Reynoso on 36-86-7500Aejdufrh identified Cx Nom (Bld)NO GROWTH 5 DAYSSelect Medical Cleveland Clinic [facility], Avon Magnesiumon 09-04-1440Fsdbgoxpw [Mass/Vol]2.2 mg/dLNormal1.9-2.7The [facility] Physician GroupComment on above:Result Comment: PERFORMED BY:[place] [address] [address] [place], [place] [phone] MEDICAL DIRECTORALTHEA MEADOWS M.D.Performed By: #### DIFF CBC, PT, MG, CMP ####[facility] [place] [address] [facility] Magnesium [Mass/volume] in Serum or PlasmaOrdered By: Joe Garcia on 11-84-7810Szsrypzpc [Mass/Vol]Magnesium [Mass/volume] in Serum or Plasma1.9-2.7 [facility], AvonNo Panel InformationOrdered By: Roshan Ryenoso on 86-19-5026Flhaa pneumoniae Special InfoComment.[facility] Hospital, AvonComment on above:[employer] standards require aculture to be performed on CSF specimens submitted forbacterial antigen testing. (CAP JACKIE.[id number]) Urine specimenswill not be cultured.Performed at: [facility] Lab[address] [id number] Director: Fernie Calzada MD, Phone: [phone] Time INRon 01-42-4036WRZ Coag (PPP) [Relative time]1.2 {INR}NormalThe [facility] Physician GroupComment on above: Result Comment: INR Therapeutic Range A) Pre- and Peroperative OAT started two weeks before surgery. NOT HIP SURGERY: 1.5 - 2.5 HIP SURGERY: 2 - 3 B) Primary and secondary prevention of venous THROMBOSIS: 2 - 3 C) Active venous thrombosis, pulmonary embolism and prevention of recurrent venous thrombosis: 2 - 3 D) Prevention of arterial thromboembolism including patients with mechanical heart valves: 3 - 4.5PERFORMED BY:[address] [place], [place] [phone] MEDICAL DIRECTORALTHEA JIMENEZ M.D.Performed By: #### DIFF CBC, PT, MG, CMP ####[facility] [address] [place] [address] USAPT Coag (PPP) [Time]14.0 sHigh 9.0-12.9The [facility] Physician GroupComment on above:Result Comment: A hematocrit value greater than 55% may lead to inaccurate results in coagulation testing. Patients having hematocrit values >55% require a special collection tube for coagulation studies. Please contact the laboratory at [phone] for redraw instructions.Performed By: #### DIFF CBC, PT, MG, CMP ####[facility] [address] [place] [address] USAProthrombin time (PT) Ordered By: Joe Garcia on 10-06-6119AR Coag (PPP) [Time]Prothrombin time (PT)High9.0-12.9[facility], AvonComment on above:A hematocrit value greater than 55% may lead to inaccurate results in coagulation testing. Patientshaving hematocrit values >55% require a special collection tube for coagulation studies. Please contact the laboratory at [phone] for redraw instructions.Specimen source [Identifier] of Unspecified specimenOrdered By: Roshan Reynoso on 02-54-0905Xpfhzwqg source Nom (Unsp spec)Specimen source identified.[facility] Cincinnatitrep Pneumoniae Ag, Uron 09-18-2024 Body Fluid CultureNot indicated.Normal.The [facility] Physician GroupComment on above:Order Comment: Results called at 1445 on 09/23/24 SOURCE OF SPECIMEN: URINE CLEAN VOIDEDPerformed By: #### UR STP AG ####[facility] , Organism IDNot indicated.Normal.The [facility] Physician [facility] Care SystemComment on above: Order Comment: Results called at 1445 on 09/23/24 SOURCE OF SPECIMEN: URINE CLEAN VOIDEDPerformed By: #### UR STP AG ####[facility] ,Please Note: CommentNormal.The [facility] Physician GroupComment on above:Order Comment: Results called at 1445 on 09/23/24 SOURCE OF SPECIMEN: URINE CLEAN VOIDEDResult Comment: [employer] standards require a culture to be performed on CSFspecimens submitted for bacterial antigen testing. (CAP JACKIE.[id number]) Urine specimens will not be cultured. Performed at: - [facility] [id number] Hairspring Assembler: Fernie Calzada MD, Phone: [phone] BY:[facility] [place], [place] [phone] MEDICAL DIRECTORALTHEA MEADOWS M.D.Performed By: #### UR STP AG ####[facility] ,Specimen source Nom (Unsp spec)UrineNormal.The [facility] Physician GroupComment on above:Order Comment: Results called at 1445 on 09/23/24 SOURCE OF SPECIMEN: URINE CLEAN VOIDEDPerformed By: #### UR STP AG ####[facility] , Streptococcus Pneumoniae AgPositiveAbnormalNegativeThe [facility] Comment on above:Order Comment: Results called at 1445 on 09/23/24 SOURCE OF SPECIMEN: URINE CLEAN VOIDEDResult Comment: REPORTED POSITIVE RESULT TO DARWIN PACK AT 2:39PM ON 09/23/2024. FAXED REPORT TO [phone]. CS --- 09/23/24 1507 --- Strep Pneumo Ag previously reported as: Positive APerformed By: #### UR STP AG ####[facility] ,Streptococcus pneumoniae antigen detectionOrdered By: Roshan Reynoso on 09-18-2024S. pneumoniae Ag Ql (Unsp spec)Streptococcus pneumoniae antigen detectionAbnormalNegativeSelect Medical [facility] Clinic [facility], [facility]on Comment on above:REPORTED POSITIVE RESULT TO DARWIN PACK AT 2:39PM ON09/23/2024. FAXED REPORT TO [phone]. CS --- 09/23/24 1507 ---Strep Pneumo Ag previously reported as: Positive AABO/Rh Retypeon 54-14-9366GQK/RH Recheck ResultPositive NormalThe [facility] Physician GroupComment on above:Result Comment: PERFORMED BY:[facility]OUNT HOSPITALFariha VILLACECIL, [place] [phone] MEDICAL DIRECTORALTHEA MEADOWS M.D.Anisocytosis LM Ql (Bld)Ordered By: Mode Ellsworth on 07-57-8342Mehfossdugll Ql (Bld)Anisocytosis [Presence] in Blood by Light microscopySelect Medical Cleveland Clinic Rehabilitation Hospital, Avon Appearance of UrineOrdered By: Mode Ellsworth on 59-06-0516Mrzcgonqsc (U)Urine appearanceAbnormalCOhioHealth Riverside Methodist HospitalB-Type Natriuretic Peptideon 09-31-1891Oehzkjzghvi peptide B (Bld) [Mass/Vol]261.0 pg/mLHigh5-100 The [facility] Physician GroupComment on above:Result Comment: PERFORMED BY:[address] [place], [place] [phone] MEDICAL DIRECTORALTHEA MEADOWS M.D.Performed By: #### BNP, CUBLD, DIFF CBC, LACTIC, PT, CK, BMP, HS TROP ####[address] [address] USABacteria [Presence] in Urine by AutomatedOrdered By: Mode Ellsworth on 84-18-5079Wcykeunx Auto Ql (U)Bacteria [Presence] in Urine by AutomatedPlateau Medical CenterNone [facility] Basic Metabolic Panelon 80-73-8672Xxocy gap [Moles/Vol]15.6 mmol/LHigh6.0-15.0 The [facility] Physician GroupComment on above:Performed By: #### BNP, CUBLD, DIFF CBC, LACTIC, PT, CK, BMP, HS TROP ####[address] [address] USACalcium [Mass/Vol]8.8 mg/dLNormal8.6-10.3The [facility] Physician GroupComment on above:Performed By: #### BNP, CUBLD, DIFF CBC, LACTIC, PT, CK, BMP, HS TROP ####[address] [address] USAChloride [Moles/Vol]94 mmol/HFez64-400Pva [facility] Physician GroupComment on above:Performed By: #### BNP, CUBLD, DIFF CBC, LACTIC, PT, CK, BMP, HS TROP ####[address] [address] USACO2 [Moles/Vol]26.4 mmol/CRlptzb99.0-31.0The [facility] Physician GroupComment on above:Performed By: #### BNP, CUBLD, DIFF CBC, LACTIC, PT, CK, BMP, HS TROP ####[address] [place] [address] USACreatinine [Mass/Vol]1.49 mg/dLHigh0.60-1.20The [facility] Physician GroupComment on above:Performed By: #### BNP, CUBLD, DIFF CBC, LACTIC, PT, CK, BMP, HS TROP ####[place] [phone] USACreatinine Clr Calc Cpjztfky02.84NormGreene Memorial Hospitale Formerly [facility] Physician GroupComment on above:Result Comment: PERFORMED BY:[address]LucilaCOLUMBUS, [place] [phone] MEDICAL DIRECTORALTHEA MEADOWS M.D.Performed By: #### BNP, CUBLD, DIFF CBC, LACTIC, PT, CK, BMP, HS TROP ####[place] [address] USAEstimated GFR39.473 mL/MinNoFormerly [facility], later [facility] Physician [facility] Care SystemComment on above:Performed By: #### BNP, CUBLD, DIFF CBC, LACTIC, PT, CK, BMP, HS TROP ####[place] [address] USAGlucose [Mass/Vol]172 mg/uYJmuh85-225Pex [facility] Physician GroupComment on above:Result Comment: Random Glucose Reference Range is dependent on time and content of last meal. Glucose of more than 200 mg/dL in a nonstressed, ambulatory subject supports the diagnosis of Diabetes Mellitus. ADA recommended reference rangePerformed By: #### BNP, CUBLD, DIFF CBC, LACTIC, PT, CK, BMP, HS TROP ####[place] [phone] USAPotassium [Moles/Vol]3.0 mmol/LLow3.5-5.1The [facility] Physician [facility] Care SystemComment on above:Performed By: #### BNP, CUBLD, DIFF CBC, LACTIC, PT, CK, BMP, HS TROP ####[place] [address] USASodium [Moles/Vol]133 mmol/VQny676-199Hcx [facility] Physician GroupComment on above:Performed By: #### BNP, CUBLD, DIFF CBC, LACTIC, PT, CK, BMP, HS TROP ####[address] [place] [address] USAUrea nitrogen [Mass/Vol]60 mg/dLHigh7-25The [facility] Physician GroupComment on above:Performed By: #### BNP, CUBLD, DIFF CBC, LACTIC, PT, CK, BMP, HS TROP ####[address] [place] [address] USABasophils Auto (Bld) [#/Vol]Ordered By: Mode Ellsworth on 14-44-7434Qrdmeibrp (Bld) [#/Vol]Automated basophil count0.0-0.2FCincinnati Children's Hospital Medical CenterBasophils/100 WBC Auto (Bld)Ordered By: Mode Ellsworth on 68-21-6574Ejuhmeria/100 WBC (Bld)Automated basophil %.[facility], AvonBasophils/100 WBC Manual cnt (Bld)Ordered By: Mode Ellsworth on 09-17-2024 Basophils/100 WBC (Bld)Basophils/100 leukocytes in Blood by Manual count0-2 [facility], AvonBilirubin Test strip Ql (U)Ordered By: Mode Ellsworth on 99-20-4550Ruhuzgflz Ql (U)Bilirubin.total [Presence] in Urine by Test stripNegativeSelect Medical Cleveland Clinic Rehabilitation Hospital, AvonBioFire Not Detectedon 09-17-2024 BioFire Not DetectedNot detectedNormalNot DetecteThe [facility] Comment on above:Result Comment: This is a duplicate RP2.1 COVID (PCR) result to be used for statistical tracking purpose only.PERFORMED BY:[address] [place], [place] [phone] MEDICAL DIRECTORALTHEA MEADOWS M.D.Performed By: #### BIOFIRECOVNOTDE, RESP PANEL UPP. ####[address] [address] USABlood Cultureon 55-72-2546Tnqpflap identified Cx Nom (Bld)NormalThe [facility] - PoconoComment on above:Performed By: #### BNP, CUBLD, DIFF CBC, LACTIC, PT, CK, BMP, HS TROP ####[facility] [id number] [place] [address] USABacteria identified Cx Nom (Bld)NormalThe [facility] Physician [facility] Care SystemComment on above:Performed By: #### BNP, CUBLD, DIFF CBC, LACTIC, PT, CK, BMP, HS TROP ####[facility] [address] [place] [address] USACOVID-19 Detected/Not DetectedOrdered By: Joe Garcia on 07-00-1764QJYC-CoV-2 (COVID-19) RNA LUDIN+non-probe Ql (Nph)Not detectedNot DetectMount Carmel Health SystemComment on above:This is a duplicate RP2.1 COVID (PCR) result to be used for statistical tracking purpose only.CT angio chest PE protocolon 87-18-9164UG angio chest PE protocolNormSanta Rosa Medical Center Physician GroupCalcium [Mass/volume] in Serum or PlasmaOrdered By: Mode Ellsworth on 83-41-8168Sjfbjzn [Mass/Vol]Calcium [Mass/volume] in Serum or Plasma8.6-10.3FCincinnati Children's Hospital Medical CenterCarbon dioxide, total [Moles/volume] in Serum or PlasmaOrdered By: Mode Ellsworth on 09-35-6303DW8 [Moles/Vol]Carbon dioxide, total [Moles/volume] in Serum or Bqvqxc03.0-31.0 [facility], AvonChloride [Moles/volume] in Serum or Plasma Ordered By: Mode Ellsworth on 43-30-7041Hjhogftj [Moles/Vol]Chloride [Moles/volume] in Serum or FuraziDso08-206AnezgejqiSelect Medical Cleveland Clinic Rehabilitation Hospital, AvonColor Auto (U)Ordered By: Mode Ellsworth on 32-53-3964Zjija (U)Color of Urine by Auto YellowSelect Medical Cleveland Clinic Rehabilitation Hospital, AvonCreatine Kinaseon 36-15-6849RH [Catalytic activity/Vol]101 U/LZjmjjy65-954Iwi [facility] Physician [facility] Care SystemComment on above: Performed By: #### BNP, CUBLD, DIFF CBC, LACTIC, PT, CK, BMP, HS TROP ####[place] [address] [place] Creatine kinase [Enzymatic activity/volume] in Serum or PlasmaOrdered By: Mode Ellsworth on 59-30-7291ZT [Catalytic activity/Vol]Creatine kinase [Enzymatic activity/volume] in Serum or Mfafrf03-480BzfedwwhbSelect Medical Cleveland Clinic Rehabilitation Hospital, Avon Creatinine [Mass/volume] in Serum or PlasmaOrdered By: Mode Ellsworth on 98-56-8229Yuefgxfyup [Mass/Vol]Creatinine [Mass/volume] in Serum or PlasmaHigh 0.60-1.20[facility], AvonDiff and CBCon 80-93-3899Exofdnolbywz Ql (Bld)SlightNormalThEastern Idaho Regional Medical Center Physician GroupComment on above:Performed By: #### BNP, CUBLD, DIFF CBC, LACTIC, PT, CK, BMP, HS TROP ####[place] [id number] USABasophils (Bld) [#/Vol]0.0 10*3/uLNormal0.0-0.2The [facility] Physician GroupComment on above:Performed By: #### BNP, CUBLD, DIFF CBC, LACTIC, PT, CK, BMP, HS TROP ####[place] [address] USABasophils/100 WBC (Bld)0.0 % Normal.The [facility] Physician GroupComment on above:Performed By: #### BNP, CUBLD, DIFF CBC, LACTIC, PT, CK, BMP, HS TROP ####[place] [address] USABasophils/100 WBC (Bld)0 %Normal0-2The [facility] Physician GroupComment on above:Performed By: #### BNP, CUBLD, DIFF CBC, LACTIC, PT, CK, BMP, HS TROP ####[place] [id number] USAEosinophils (Bld) [#/Vol]0.0 10*3/uLNormal0.0-0.45 The [facility] Physician GroupComment on above:Performed By: #### BNP, CUBLD, DIFF CBC, LACTIC, PT, CK, BMP, HS TROP ####[place] [address] USAEosinophils/100 WBC (Bld)0.1 %Normal.The [facility] Physician GroupComment on above:Performed By: #### BNP, CUBLD, DIFF CBC, LACTIC, PT, CK, BMP, HS TROP ####[place] [address] USAEosinophils/100 WBC (Bld)2 %Normal1-3The [facility] Physician GroupComment on above:Performed By: #### BNP, CUBLD, DIFF CBC, LACTIC, PT, CK, BMP, HS TROP ####[place] [address] USAErythrocyte distribution width (RBC) [Ratio]14.9 % Yqgmld90.9-15.3The Formerly [facility] Physician GroupComment on above:Performed By: #### BNP, CUBLD, DIFF CBC, LACTIC, PT, CK, BMP, HS TROP ####[place] [address] USAHematocrit (Bld) [Volume fraction]16.0 %Off scale low34.0-46.4The Formerly [facility] Physician GroupComment on above:Result Comment: Critical value result called at 1330 on 09/17/24Performed By: #### BNP, CUBLD, DIFF CBC, LACTIC, PT, CK, BMP, HS TROP ####[place] [address] USAHemoglobin (Bld) [Mass/Vol]5.6 g/dLLow11.8-15.4The Formerly [facility] Physician GroupComment on above: Performed By: #### BNP, CUBLD, DIFF CBC, LACTIC, PT, CK, BMP, HS TROP ####[place] [address] [place] HypochromasiaModerateNormalThe Formerly [facility] Physician GroupComment on above: Performed By: #### BNP, CUBLD, DIFF CBC, LACTIC, PT, CK, BMP, HS TROP ####[address] Lymphocytes (Bld) [#/Vol]0.2 10*3/uLLow1.00-4.8The [facility] Comment on above:Performed By: #### BNP, CUBLD, DIFF CBC, LACTIC, PT, CK, BMP, HS TROP ####[place] [address] USALymphocytes/100 WBC (Bld)3.2 %Normal.The Former[facility] Physician GroupComment on above:Performed By: #### BNP, CUBLD, DIFF CBC, LACTIC, PT, CK, BMP, HS TROP ####[address] Lymphocytes/100 WBC (Bld)2 %Tqn97-58Ptx Formerly [facility] Physician GroupComment on above:Performed By: #### BNP, CUBLD, DIFF CBC, LACTIC, PT, CK, BMP, HS TROP ####[address] StreetH (RBC) [Entitic mass]32.7 idRmkcnn40.7-34.3The Formerly [facility] Physician GroupComment on above:Performed By: #### BNP, CUBLD, DIFF CBC, LACTIC, PT, CK, BMP, HS TROP ####[address] StreetV (RBC) [Entitic vol]93.2 jMSjlcst29-164Gpt Formerly [facility] Physician GroupComment on above:Performed By: #### BNP, CUBLD, DIFF CBC, LACTIC, PT, CK, BMP, HS TROP ####[place] [address] USAMean Corpuscular HGB Conc35.1 g/kDVuvi54.0-35.0The Formerly [facility] Physician GroupComment on above:Performed By: #### BNP, CUBLD, DIFF CBC, LACTIC, PT, CK, BMP, HS TROP ####[address] MicrocytosisSlightNormalThe Formerly [facility] Physician GroupComment on above:Performed By: #### BNP, CUBLD, DIFF CBC, LACTIC, PT, CK, BMP, HS TROP ####[address] [address] USAMonocytes (Bld) [#/Vol]1.1 10*3/uLHigh0.0-0.8The Formerly [facility] Physician GroupComment on above: Performed By: #### BNP, CUBLD, DIFF CBC, LACTIC, PT, CK, BMP, HS TROP ####[address] [address] [place] Monocytes/100 WBC (Bld)29.44 %High0.00-20.00The Formerly [facility] Physician GroupComment on above:Result Comment: For adults in ED, MDW > 20.0 may be associated with a higher risk of sepsis during the first 12 hrs of hospital admission The predictive value of MDW for identifying sepsis in patients with hematological abnormalities has not been establishedPerformed By: #### BNP, CUBLD, DIFF CBC, LACTIC, PT, CK, BMP, HS TROP ####[address] [address] USAMonocytes/100 WBC (Bld)23.5 %Normal.The Former[facility] Physician GroupComment on above:Performed By: #### BNP, CUBLD, DIFF CBC, LACTIC, PT, CK, BMP, HS TROP ####[address] [address] USAMonocytes/100 WBC (Bld)23 %High2-11The Formerly [facility] Physician GroupComment on above:Performed By: #### BNP, CUBLD, DIFF CBC, LACTIC, PT, CK, BMP, HS TROP ####[address] [address] USANeutrophils (Bld) [#/Vol]3.5 10*3/uLNormal1.8-7.7The Formerly [facility] Physician GroupComment on above:Performed By: #### BNP, CUBLD, DIFF CBC, LACTIC, PT, CK, BMP, HS TROP ####[address] [address] USANeutrophils/100 WBC (Bld)73.2 %Normal.The Former[facility] Physician GroupComment on above:Performed By: #### BNP, CUBLD, DIFF CBC, LACTIC, PT, CK, BMP, HS TROP ####[address] [place] [address] USANRBC%0.2 /100{WBC}Normal0-0.5The Formerly [facility] Physician GroupComment on above:Performed By: #### BNP, CUBLD, DIFF CBC, LACTIC, PT, CK, BMP, HS TROP ####[id number] USAOvalocytesSlightNoFormerly [facility] Physician GroupComment on above: Performed By: #### BNP, CUBLD, DIFF CBC, LACTIC, PT, CK, BMP, HS TROP ####[id number] [place] Platelet EstimateDecreasedNormalNormSanta Rosa Medical Center Physician GroupComment on above:Performed By: #### BNP, CUBLD, DIFF CBC, LACTIC, PT, CK, BMP, HS TROP ####[id number] [facility] Platelet mean volume (Bld) [Entitic vol]10.3 fLNormal6.3-10.7The Formerly [facility] Physician GroupComment on above:Result Comment: PERFORMED BY:[address] [place], [place] [phone] MEDICAL DIRECTORALTHEA MEADOWS M.D.Performed By: #### BNP, CUBLD, DIFF CBC, LACTIC, PT, CK, BMP, HS TROP ####[address] [id number] USAPlatelet MorphologyNormalNormalNoFormerly [facility] Physician GroupComment on above:Result Comment: PERFORMED BY:[address] [place], [place] [phone] MEDICAL DIRECTORALTHEA MEADOWS M.D.Performed By: #### BNP, CUBLD, DIFF CBC, LACTIC, PT, CK, BMP, HS TROP ####[address] [address] USAPlatelets (Bld) [#/Vol]24 10*3/uLOff scale low 150-450The Formerly [facility] Physician GroupComment on above:Result Comment: Critical value result called at 1330 on 09/17/24Performed By: #### BNP, CUBLD, DIFF CBC, LACTIC, PT, CK, BMP, HS TROP ####[id number] USAPoikilocytosisSAtrium Health Providence Physician GroupComment on above:Performed By: #### BNP, CUBLD, DIFF CBC, LACTIC, PT, CK, BMP, HS TROP ####[place] [address] USAPolychromasiaSAtrium Health Providence Physician GroupComment on above: Performed By: #### BNP, CUBLD, DIFF CBC, LACTIC, PT, CK, BMP, HS TROP ####[id number] USARBC (Bld) [#/Vol]1.71 10*6/uLLow3.60-5.00The Formerly [facility] Physician GroupComment on above:Performed By: #### BNP, CUBLD, DIFF CBC, LACTIC, PT, CK, BMP, HS TROP ####[id number] [place] Segmented neutrophils/100 WBC (Bld)73 %Ckbp90-37Jtl [facility] Comment on above:Performed By: #### BNP, CUBLD, DIFF CBC, LACTIC, PT, CK, BMP, HS TROP ####[id number] USAWBC (Bld) [#/Vol]4.8 10*3/uLNormal3.8-11.6The [facility] Comment on above:Performed By: #### BNP, CUBLD, DIFF CBC, LACTIC, PT, CK, BMP, HS TROP ####[id number] USADipstick and Microscopicon 76-42-4867Msjtpjgils (U)CloudyCritically abnormal ClearThe Formerly [facility] Physician GroupComment on above:Order Comment: Name Collection Type:: Straight CatheterPerformed By: #### ADDONUAPLUS, CUU ####[address] [place] Bacteria,Urine3+HighNone SeenThe Formerly [facility] Physician GroupComment on above:Order Comment: Name Collection Type:: Straight CatheterPerformed By: #### ADDONUAPLUS, CUU ####[address] [address] USABilirubin,UrineNegativeNormalNegativeThe [facility] Comment on above:Order Comment: Name Collection Type:: Straight Catheter Performed By: #### ADDONUAPLUS, CUU ####[address] USAColor (U)YellowNormalYellowThe Formerly [facility] Physician GroupComment on above:Order Comment: Name Collection Type:: Straight Catheter Performed By: #### ADDONUAPLUS, CUU ####[address] USAGlucose Ql (U)70 mg/dLHighNormalThe Formerly [facility] Physician GroupComment on above:Order Comment: Name Collection Type:: Straight CatheterPerformed By: #### ADDONUAPLUS, CUU ####[address] USAHyaline Casts,Urine9 [LPF]High0-8The Formerly [facility] Physician GroupComment on above:Order Comment: Name Collection Type:: Straight CatheterPerformed By: #### ADDONUAPLUS, CUU ####[address], [place] USAKetones Ql (U)NegativeNormal NegativeThe Formerly [facility] Physician GroupComment on above:Order Comment: Name Collection Type:: Straight CatheterPerformed By: #### ADDONUAPLUS, CUU ####[address] [place] Leukocyte esterase Test strip Ql (U)4+HighNegativeThe [facility] Comment on above:Order Comment: Name Collection Type:: Straight Catheter Performed By: #### JANNET, CUU ####[address] USAMucus,UrineRareNormalThe [facility] Comment on above:Order Comment: Name Collection Type:: Straight CatheterResult Comment: PERFORMED BY:[address] [place], [place] [phone] MEDICAL DIRECTORALTHEA MEADOWS M.D. Performed By: #### JANNET, CUU ####[address] USANitrite,UrineNegativeNormalNegativeThe Formerly [facility] Physician GroupComment on above:Order Comment: Name Collection Type:: Straight CatheterPerformed By: #### JANNET, CUU ####[address] USANon-Squamous Epithelial Cell,U1 [HPF] HighNone SeenThe Formerly [facility] Physician GroupComment on above:Order Comment: Name Collection Type:: Straight CatheterPerformed By: #### JANNET, CUU ####[address] USAOccult Blood,Urine2+HighNegativeThe Formerly [facility] Physician GroupComment on above:Order Comment: Name Collection Type:: Straight CatheterResult Comment: PERFORMED BY:[address] [address] [place], [place] [phone] MEDICAL DIRECTORALTHEA MEADOWS M.D.Performed By: #### JANNET, CUU ####[address] [place] [address] USApH (U)5.5 [pH]Normal5.0-9.0The Formerly [facility] Physician GroupComment on above:Order Comment: Name Collection Type:: Straight CatheterPerformed By: #### JANNET, CUU ####[address] [place] [address] USAProtein (U) [Mass/Vol]50 mg/dLHighNegativeAdventhealth Tampa [facility] Comment on above:Order Comment: Name Collection Type:: Straight Catheter Performed By: #### JANNET, CUU ####[address] [place], [id number] USARBC,Urine20 [HPF]High0-4The Formerly [facility] Physician GroupComment on above:Order Comment: Name Collection Type:: Straight Catheter Performed By: #### JANNET, CUU ####[address] [place] [facility] [place], [place] USASpecificy [place],Urine1.291Vqnewc5.001-1.030The Formerly [facility] Physician GroupComment on above:Order Comment: Name Collection Type:: Straight CatheterPerformed By: #### JANNET, CUU ####[address] [place] [facility], [id number] USASquamous Epithelial Cell,Urine1 [HPF]Normal0-2The Formerly [facility] Physician GroupComment on above:Order Comment: Name Collection Type:: Straight CatheterPerformed By: #### JANNET, CUU ####[address] [place] [facility], [place] [place] Urobilinogen,Urine3 mg/dLHighNormalThe Formerly [facility] Physician GroupComment on above:Order Comment: Name Collection Type:: Straight CatheterPerformed By: #### JANNET, CUU ####[address] [place] [address] USAWBC CLUMP, UrineManyHighNone SeenThe Formerly [facility] Physician GroupComment on above:Order Comment: Name Collection Type:: Straight CatheterPerformed By: #### JANNET, CUU ####[address] [place] [facility], [place] USAWBC,UrineInnumerableHigh0-4The Formerly [facility] Physician GroupComment on above:Order Comment: Name Collection Type:: Straight Catheter Performed By: #### JANNET, CUU ####[facility] [place], [place] USAECG 12 lead ECGon 75-75-8197SCE 12 lead ECGNormalThe Formerly [facility] Physician GroupEosinophils Auto (Bld) [#/Vol]Ordered By: Mode Ellsworth on 29-76-4258Fziieturuzd (Bld) [#/Vol]Automated eosinophil count0.0-0.45 [facility], AvonEosinophils/100 WBC Auto (Bld)Ordered By: Mode Ellsworth on 13-53-7394Vyqrjdwjvvs/100 WBC (Bld)Automated eosinophil %. [facility], AvonEosinophils/100 WBC Manual cnt (Bld)Ordered By: Mode Ellsworth on 07-92-1716Wnlzzwpcchy/100 WBC (Bld)Eosinophils/100 leukocytes in Blood by Manual count1-3FCincinnati Children's Hospital Medical CenterEpithelial cells.non-squamous [#/area] in Urine sediment by Automated countOrdered By: Mode Ellsworth on 58-04-4444Zlgmqnvjio cells.non-squamous Auto (Urine sed) [#/Area]Epithelial cells.non-squamous [#/area] in Urine sediment by Automated countHighNone SeenSelect Medical [facility] Clinic [facility], AvonEpithelial cells.squamous [#/area] in Urine sediment by Automated countOrdered By: Mode Ellsworth on 04-93-7755Wjqgvpnzpk cells.squamous Auto (Urine sed) [#/Area]Epithelial cells.squamous [#/area] in Urine sediment by Automated count0-2FCincinnati Children's Hospital Medical CenterErythrocyte distribution width Auto (RBC) [Ratio]Ordered By: Mode Ellsworth on 47-78-9956Fvynjmmeiqe distribution width (RBC) [Ratio] Erythrocyte distribution width [Ratio] by Automated count11.9-15.3FCincinnati Children's Hospital Medical CenterErythrocyte morphology finding [Identifier] in Blood Ordered By: Mode Ellsworth on 35-62-5895EZL morphology finding Nom (Bld)RBC morphologySelect Medical [facility], AvonErythrocytes [#/area] in Urine sediment by Automated countOrdered By: Mode Ellsworth on 92-86-5119VVY Auto (Urine sed) [#/Area]Erythrocytes [#/area] in Urine sediment by Automated countHigh0-4 [facility], AvonGlucose [Mass/volume] in Serum or PlasmaOrdered By: Mode Ellsworth on 42-90-0845Nxpuwjg [Mass/Vol]Glucose [Mass/volume] in Serum or SacxoiQbew77-232KmtdhelxrSelect Medical [facility], AvonComment on above:ADA recommended reference rangeRandom Glucose Reference Range is dependent on time and content of last meal. Glucose of more than 200 mg/dL in a nonstressed, ambulatory subject supports the diagnosisof Diabetes Mellitus.Glucose [Mass/volume] in Urine by Test stripOrdered By: Mode Ellsworth on 09-17-2024 Glucose Test strip (U) [Mass/Vol]Glucose [Mass/volume] in Urine by Test strip HighNormalSelect Medical [facility], AvonHematocrit Auto (Bld) [Volume fraction]Ordered By: Mode Ellsworth on 67-84-1967Uducfyvlcw (Bld) [Volume fraction]Hematocrit [Volume Fraction] of Blood by Automated countCritically low 34.0-46.4FCincinnati Children's Hospital Medical CenterComment on above:Critical valueresult calledat 1330 on 09/17/24Hemoglobin Test strip Ql (U)Ordered By: Mode Ellsworth on 66-53-9065Jkprxqoyje Ql (U)Hemoglobin [Presence] in Urine by Test stripHigh NegativeSelect Medical [facility] Clinic Rehabilitation Hospital, AvonHemoglobin [Mass/volume] in Blood Ordered By: Mode Ellsworth on 16-20-7114Zgonckbbff (Bld) [Mass/Vol]Hemoglobin [Mass/volume] in ZhismOna20.8-15.4FCincinnati Children's Hospital Medical CenterHyaline casts [#/area] in Urine sediment by Automated countOrdered By: Mode Ellsworth on 88-51-1712Gblidqt casts Auto (Urine sed) [#/Area]Hyaline casts [#/area] in Urine sediment by Automated countHigh0-8[facility], AvonHypochromia LM Ql (Bld)Ordered By: Mode Ellsworth on 52-33-3046Wubcorezzvr Ql (Bld)Hypochromia [Presence] in Blood by Light microscopySelect Medical [facility] Clinic Rehabilitation Hospital, AvonINR in Platelet poor plasma by Coagulation assayOrdered By: Mode Ellsworth on 09-17-2024 INR Coag (PPP) [Relative time]INR in Platelet poor plasma by Coagulation assay [facility], AvonComment on above:INR Therapeutic Range A) Pre- and Peroperative OAT started two weeks before surgery. NOT HIP SURGERY: 1.5 - 2.5 HIP SURGERY: 2 - 3B) Primary and secondary prevention of venous THROMBOSIS: 2 - 3C) Active venous thrombosis, pulmonary embolismand prevention of recurrent venous thrombosis: 2 - 3D) Prevention of arterial thromboembolismincluding patients with mechanical heart valves: 3 - 4.5Ketones Test strip Ql (U)Ordered By: Mode Ellsworth on 30-12-0788Ghytdjx Ql (U)Ketones [Presence] in Urine by Test stripNegativeSelect Medical [facility], AvonLaboratory - Microbiology and Antimicrobial susceptibilityOrdered By: Mode Ellsworth on 50-65-5062Cuzfajdp identified Cx Nom (Bld)Streptococcus pneumoniae [facility] CenterBacteria identified Cx Nom (Bld)Streptococcus pneumoniae [facility] HospitalBacteria identified Cx Nom (Bld)Streptococcus pneumoniae - [facility] at [facility] CenterBacteria identified Cx Nom (Bld)Streptococcus pneumoniae - reported at [facility] HospitalLactate [Moles/volume] in Serum or PlasmaOrdered By: Mode Ellsworth on 28-04-5924Unukyiz [Moles/Vol]Lactate [Moles/volume] in Serum or Plasma0.5-2.2FCincinnati Children's Hospital Medical CenterLactic Acidon 05-89-1453Cscftxo [Moles/Vol]1.2 mmol/LNormal0.5-2.2 The [facility] Physician GroupComment on above:Result Comment: PERFORMED BY:[facility] [place], [place] [phone] MEDICAL DIRECTORALTHEA MEADOSW M.D.Performed By: #### BNP, CUBLD, DIFF CBC, LACTIC, PT, CK, BMP, HS TROP ####[facility] [address] [place] [address] USALeukoReduced RBCon 09-17-2024 LeukoReduced RBCTRANSFUSED 09/17/24 1635NoFormerly [facility] Leukocyte clumps [Presence] in Urine by AutomatedOrdered By: Mode Ellsworth on 45-72-4618Ggdgyiqfk clumps Auto Ql (U)Leukocyte clumps [Presence] in Urine by AutomatedHighEncompass Health Rehabilitation Hospital Of East Valleye SeenSelect Medical [facility], AvonLeukocyte esterase [Presence] in Urine by Test stripOrdered By: Mode Ellsworth on 90-79-2052Sxptknjeg esterase Test strip Ql (U)Leukocyte esterase [Presence] in Urine by Test strip HighNegativeSelect Medical [facility], AvonLeukocytes [#/area] in Urine sediment by Automated countOrdered By: Mode Ellsworth on 25-95-1109ELD Auto (Urine sed) [#/Area]Leukocytes [#/area] in Urine sediment by Automated countHigh0-4 [facility], AvonLeukocytes [#/volume] corrected for nucleated erythrocytes in Blood by Automated counOrdered By: Mode Ellsworth on 12-65-7796KAR corrected for nucl RBC Auto (Bld) [#/Vol]Leukocytes [#/volume] corrected for nucleated erythrocytes in Blood by Automated coun3.8-11.6FCincinnati Children's Hospital Medical CenterLymphocytes Auto (Bld) [#/Vol]Ordered By: Mode Ellsworth on 69-48-9580Iuxeotyycxo (Bld) [#/Vol]Lymphocytes [#/volume] in Blood by Automated countLow1.00-4.8[facility], AvonLymphocytes/100 WBC Auto (Bld) Ordered By: Mode Ellsworth on 93-14-6604Powyhcnejjk/100 WBC (Bld)Lymphocytes/100 leukocytes in Blood by Automated count.[facility] Lymphocytes/100 WBC Manual cnt (Bld)Ordered By: Mode Ellsworth on 09-17-2024 Lymphocytes/100 WBC (Bld)Lymphocytes/100 leukocytes in Blood by Manual countLow 18-42[facility] Auto (RBC) [Entitic mass]Ordered By: Mode Ellsworth on 04-50-0067EVL (RBC) [Entitic mass]MCH [Entitic mass] by Automated count24.7-34.3FCincinnati Children's Hospital Medical CenterMCHC Auto (RBC) [Mass/Vol]Ordered By: Mode Ellsworth on 33-85-8226ITPC (RBC) [Mass/Vol]MCHC [Mass/volume] by Automated ullatMocs26.0-35.0[facility] MCV Auto (RBC) [Entitic vol]Ordered By: Mode Ellsworth on 61-49-5655ZRH (RBC) [Entitic vol]MCV [Entitic volume] by Automated ciknr87-505JfqggigpvSelect Medical [facility] Rehabilitation Hospital, AvonMicrocytes LM Ql (Bld)Ordered By: Mode Ellsworth on 09-17-2024 Microcytes Ql (Bld)Microcytes [Presence] in Blood by Light microscopySelect Medical [facility] Clinic Rehabilitation Hospital, AvonMonocyte distribution width [Entitic volume] in Blood by AutomatedOrdered By: Mode Ellsworth on 19-76-2328Aokzxpke distribution width Auto (Bld) [Entitic vol]Monocyte distribution width [Entitic volume] in Blood by AutomatedHigh0.00-20.00[facility], AvonComment on above:For adults in ED, MDW > 20.0 may be associated with a higher risk of sepsis during the first 12 hrs of hospital admissionThe predictive value of MDW for identifying sepsis in patients with hematological abnormalities has not been establishedMonocytes Auto (Bld) [#/Vol]Ordered By: Mode Ellsworth on 09-17-2024 Monocytes (Bld) [#/Vol]Automated blood monocyte countHigh0.0-0.8[facility], AvonMonocytes/100 WBC Auto (Bld)Ordered By: Mode Ellsworth on 30-05-8290Dqirbqufe/100 WBC (Bld)Automated monocyte %.[facility], AvonMonocytes/100 WBC Manual cnt (Bld)Ordered By: Mode Ellsworth on 09-17-2024 Monocytes/100 WBC (Bld)Monocytes/100 leukocytes in Blood by Manual countHigh2-11 [facility], AvonMucus [Presence] in Urine by AutomatedOrdered By: Mode Ellsworth on 13-23-1769Iuppx Auto Ql (U)Mucus [Presence] in Urine by AutomatedSelect Medical [facility] Clinic Rehabilitation Hospital, AvonNatriuretic peptide B [Mass/Vol] Ordered By: Mode Ellsworth on 41-69-9698Ahnvljcqzqv peptide B (Bld) [Mass/Vol]BNP ser/plasHigh5-100[facility], AvonNeutrophils Auto (Bld) [#/Vol] Ordered By: Mode Ellsworth on 74-62-2599Vgjjjpzzcoe (Bld) [#/Vol]Neutrophils [#/volume] in Blood by Automated count1.8-7.7FCincinnati Children's Hospital Medical Center Neutrophils/100 WBC Auto (Bld)Ordered By: Mode Ellsworth on 09-17-2024 Neutrophils/100 WBC (Bld)Automated neutrophil %.[facility], AvonNitrite Test strip Ql (U)Ordered By: Mode Ellsworth on 03-82-1561Vqailjd Ql (U)Nitrite [Presence] in Urine by Test stripNegativeSelect Medical [facility], AvonNo Panel InformationOrdered By: Mode Ellsworth on 34-68-5271Opqhvhczy GFR (CKD-EPI)39.473 mL/MinSelect Medical [facility] Clinic Rehabilitation Hospital, AvonPharmacy Creatinine Clearance (Chem35.84[facility], AvonBacterial ID (NA Multiplex Assay)[facility], AvonBacterial ID (NA Multiplex Assay) [facility], AvonNucleated erythrocytes [Presence] in Blood by Automated countOrdered By: Mode Ellsworth on 78-99-6086Twqmfduyy RBC Auto Ql (Bld) Nucleated erythrocytes [Presence] in Blood by Automated count0-0.5FCincinnati Children's Hospital Medical CenterOvalocytes [Presence] in Blood by Light microscopyOrdered By: Mode Ellsworth on 16-19-8052Yllkcnjtco LM Ql (Bld)Ovalocyte detection [facility], AvonPlatelet adequacy [Presence] in Blood by Light microscopyOrdered By: Mode Ellsworth on 07-90-8544Lvwdeohjz LM Ql (Bld)Platelet adequacy [Presence] in Blood by Light microscopyNoOhioHealthPlatelet mean volume Auto (Bld) [Entitic vol]Ordered By: Mode Ellsworth on 83-73-1567Evvcurku mean volume (Bld) [Entitic vol]Platelet mean volume [Entitic volume] in Blood by Automated count6.3-10.7FCincinnati Children's Hospital Medical Center Platelet morphology finding [Identifier] in BloodOrdered By: Mode Ellsworth on 77-55-5832Yxplatby morphology finding Nom (Bld)Platelet morphology finding [Identifier] in BloodNoOhioHealthPlatelets Auto (Bld) [#/Vol]Ordered By: Mode Ellsworth on 57-48-2246Cyzwnkevb (Bld) [#/Vol]Platelets [#/volume] in Blood by Automated countCritically rdb900-642UniqfmtmfSelect Medical [facility] Clinic Rehabilitation Hospital, AvonComment on above:Critical valueresult calledat 1330 on 09/17/24 Poikilocytosis [Presence] in Blood by Light microscopyOrdered By: Mode Ellsworth on 43-45-8459Oafervczcbbluu LM Ql (Bld)Poikilocytosis [Presence] in Blood by Light microscopySelect Medical Cleveland Clinic [facility] AvonPolychromasia [Presence] in Blood by Light microscopyOrdered By: Mode Ellsworth on 59-30-5200Uichlygrexsgh LM Ql (Bld)Polychromasia [Presence] in Blood by Light microscopySelect Medical Cleveland Clinic [facility], AvonPotassium [Moles/volume] in Serum or PlasmaOrdered By: Mode Ellsworth on 20-94-3599Xatvnozfj [Moles/Vol]Potassium [Moles/volume] in Serum or PlasmaLow3.5-5.1FCincinnati Children's Hospital Medical CenterProtein Test strip (U) [Mass/Vol]Ordered By: Mode Ellsworth on 19-05-9030Trqdcrj (U) [Mass/Vol]Protein [Mass/volume] in Urine by Test stripHighNegativeSelect Medical Cleveland Clinic [facility], AvonProthrombin Time INRon 51-82-1887JYS Coag (PPP) [Relative time]1.3 {INR} NormalThe Formerly [facility] Physician GroupComment on above:Result Comment: INR Therapeutic Range A) Pre- and Peroperative OAT started two weeks before surgery. NOT HIP SURGERY: 1.5 - 2.5 HIP SURGERY: 2 - 3 B) Primary and secondary prevention of venous THROMBOSIS: 2 - 3 C) Active venous thrombosis, pulmonary embolism and prevention of recurrent venous thrombosis: 2 - 3 D) Prevention of arterial thromboembolism including patients with mechanical heart valves: 3 - 4.5PERFORMED BY:[facility] [place], [place] [phone] MEDICAL DIRECTORALTHEA MEADOWS M.D. Performed By: #### BNP, CUBLD, DIFF CBC, LACTIC, PT, CK, BMP, HS TROP ####[facility] Vkp[address] [place] [address] USAPT Coag (PPP) [Time]15.2 sHigh9.0-12.9The Formerly [facility] Physician GroupComment on above: Result Comment: A hematocrit value greater than 55% may lead to inaccurate results in coagulation testing. Patients having hematocrit values >55% require a special collection tube for coagulation studies. Please contact the laboratory at [phone] for redraw instructions.Performed By: #### BNP, CUBLD, DIFF CBC, LACTIC, PT, CK, BMP, HS TROP ####[facility] [id number] [place] [address] USAProthrombin time (PT)Ordered By: Mode Ellsworth on 47-81-6700ID Coag (PPP) [Time]Prothrombin time (PT)High9.0-12.9[facility], AvonComment on above:A hematocrit value greater than 55% may lead to inaccurate results in coagulation testing. Patientshaving hematocrit values >55% require a special collection tube for coagulation studies. Please c ontact the laboratory at [phone] for redraw instructions.RBC Auto (Bld) [#/Vol]Ordered By: Mode Ellsworth on 39-56-4849BMW (Bld) [#/Vol]Erythrocytes [#/volume] in Blood by Automated countLow3.60-5.00[facility], AvonRespiratory (Upper) Panel, PCRon 01-68-3337Muaunigcqtc (Upper) Panel, PCR NormalThe Formerly [facility] Physician GroupComment on above:Performed By: #### BIOFIRECOVNOTDE, RESP PANEL UPP. ####[facility] [place] [address] USARespiratory pathogens DNA and RNA panel - Nasopharynx by LUDIN with non-probe detectionOrdered By: Joe Garcia on 90-62-7056Cwivpicfrdo pathogens DNA and RNA panel LUDIN+non-probe (Nph)Respiratory pathogens DNA and RNA panel - Nasopharynx by LUDIN with non-probe detection [facility], AvonRespiratory pathogens DNA and RNA panel LUDIN+non-probe (Nph)Respiratory pathogens DNA and RNA panel - Nasopharynx by LUDIN with non-probe detectionSelect Medical Specialty Hospital - Cincinnatiegmented neutrophils/100 WBC Manual cnt (Bld)Ordered By: Mode Ellsworth on 09-17-2024 Segmented neutrophils/100 WBC (Bld)Manual blood segmented neutrophils/100 izmecyiwpdGmku64-40GvqxzrymxSelect Medical Specialty Hospital - Cincinnatierum or plasma anion gap determinationOrdered By: Mode Ellsworth on 82-92-0429Ctzlw gap [Moles/Vol]Serum or plasma anion gap determinationHigh6.0-15.0[facility] [place] Sodium [Moles/volume] in Serum or PlasmaOrdered By: Mode Ellsworth on 09-17-2024 Sodium [Moles/Vol]Sodium [Moles/volume] in Serum or XerjktZcv814-429XjsfvfhjwSelect Medical Specialty Hospital - Cincinnatipecific gravity Test strip (U) [Rel density]Ordered By: Mdoe Ellsworth on 94-49-4061Omvbuvpu gravity (U) [Rel density]Specific gravity of Urine by Test strip1.001-1.030[facility], AvonTroponin I High Sensitivityon 16-81-5659Yrzmxcms I High Zkbxbfrkcut13.6 pg/mLHigh0.0-15.0The [facility] Physician GroupComment on above:Result Comment: PERFORMED BY:[address] [place], [place] [phone] MEDICAL DIRECTORALTHEA MEADOWS M.D.Performed By: #### HS TROP ####[address] [address] [place] Troponin I High Hmyozvtwvwx78.2 pg/mLHigh0.0-15.0The [facility] Comment on above:Result Comment: PERFORMED BY:[address] [place], [place] [phone] MEDICAL DIRECTORALTHEA MEADOWS M.D.Performed By: #### BNP, CUBLD, DIFF CBC, LACTIC, PT, CK, BMP, HS TROP ####[address] [address] USATroponin I.cardiac [Mass/volume] in Serum or Plasma by Detection limit <= 0.01 ng/Ordered By: Mode Ellsworth on 24-57-4217Izfefcaa I.cardiac DL <= 0.01 ng/mL [Mass/Vol]Troponin I.cardiac [Mass/volume] in Serum or Plasma by Detection limit <= 0.01 ng/High0.0-15.0[facility], AvonType and Screenon 32-91-4665YTI and Rh group Nom (Bld)Blood group O Rh(D) positiveNormalThe Formerly [facility] Physician GroupComment on above:Order Comment: Transfuse now? Y Number of units to transfuse now? 2Result Comment: PERFORMED BY:[facility] [place], [place] [phone] MEDICAL DIRECTORALTHEA MEADOWS M.D.Urea nitrogen [Mass/volume] in Serum or PlasmaOrdered By: Mode Ellsworth on 49-30-0083Zbat nitrogen [Mass/Vol]Urea nitrogen [Mass/volume] in Serum or PlasmaPlateau Medical Center7-25 [facility], AvonUrine Cultureon 48-50-3362Hykaxick identified Cx Nom (U)NormalThe Formerly [facility] Physician GroupComment on above:Performed By: #### JANNET, CUU ####[place] [address] McnamaraCEC[place], [place] USAUrine cultureOrdered By: Mode Ellsworth on 30-54-3696Jqkmeylp identified Cx Nom (U)Escherichia coliAbHenry County Hospital Bacteria identified Cx Nom (U)Escherichia coliCleveland Clinic Avon HospitalUrobilinogen Test strip (U) [Mass/Vol]Ordered By: Mode Ellsworth on 32-53-0419Cofvduutglae (U) [Mass/Vol]Urobilinogen [Mass/volume] in Urine by Test stripSelect Medical Specialty Hospital - CincinnatiWBC Auto (Bld) [#/Vol]Ordered By: Mode Ellsworth on 80-19-9914MMK (Bld) [#/Vol]Leukocytes [#/volume] in Blood by Automated count3.8-11.6FCincinnati Children's Hospital Medical CenterpH Test strip (U) Ordered By: Mode Ellsworth on 25-06-3783kL (U)pH of Urine by Test strip5.0-9.0 [facility], AvonAlanine aminotransferase [Enzymatic activity/volume] in Serum or PlasmaOrdered By: Kush Glez on 50-78-5850FJA [Catalytic activity/Vol]Alanine aminotransferase [Enzymatic activity/volume] in Serum or Plasma7-52[facility], AvonAlbumin [Mass/volume] in Serum or Plasma by Bromocresol green (BCG) dye binding methoOrdered By: Kush Hooker on 46-18-0946Lyvttek BCG dye [Mass/Vol]Albumin [Mass/volume] in Serum or Plasma by Bromocresol green (BCG) dye binding metho3.5-5.7FCincinnati Children's Hospital Medical CenterAlkaline phosphatase [Enzymatic activity/volume] in Serum or PlasmaOrdered By: Kush Glez on 46-39-3468BER [Catalytic activity/Vol] Alkaline phosphatase [Enzymatic activity/volume] in Serum or Slzsvx75-328 [facility], AvonAspartate aminotransferase [Enzymatic activity/volume] in Serum or PlasmaOrdered By: Kush Glez on 05-06-6025ZEA [Catalytic activity/Vol]Aspartate aminotransferase [Enzymatic activity/volume] in Serum or Mdfvun36-67VphsdkqdoSelect Medical Cleveland Clinic [facility], AvonBand form neutrophils/100 WBC Manual cnt (Bld)Ordered By: Kush Glez on 28-70-5219Wcup form neutrophils/100 WBC (Bld)Peripheral white blood cell differential % bands, microscopic exam0Cincinnati Children's Hospital Medical CenterBand form neutrophils/100 leukocytes in Blood by Manual countOrdered By: Kush Glez on 75-79-6534Assh form neutrophils/100 WBC (Bld)4 %Normal05FCincinnati Children's Hospital Medical Center Comment on above:Performed By: #### DIFF CBC, CMP ####[facility] [address] [place] [address] USABasophils Auto (Bld) [#/Vol]Ordered By: Kush Glez on 00-11-5627Gnsiozjun (Bld) [#/Vol]Automated basophil count [facility] AvonBasophils/100 WBC Auto (Bld)Ordered By: Kush Hooker on 83-97-9931Poyseizwi/100 WBC (Bld)Automated basophil %[facility], AvonBilirubin.total [Mass/volume] in Serum or PlasmaOrdered By: Kush Glez on 83-17-4385Pmypsejrw [Mass/Vol]Bilirubin.total [Mass/volume] in Serum or Plasma0.3-1.0[facility], AvonBlood toxic granulation detection by light microscopyOrdered By: Kush Glez on 88-19-5557Xmcdz granules LM Ql (Bld)Blood toxic granulation detection by light microscopySelect Medical Cleveland Clinic [facility], AvonToxic granules LM Ql (Bld)Slight [facility] AvonCalcium [Mass/volume] in Serum or PlasmaOrdered By: Kush Glez on 97-70-6688Etghoko [Mass/Vol]Calcium [Mass/volume] in Serum or Plasma8.6-10.3FCincinnati Children's Hospital Medical CenterCarbon dioxide, total [Moles/volume] in Serum or PlasmaOrdered By: Kush Glez on 12-66-9239ER1 [Moles/Vol]Carbon dioxide, total [Moles/volume] in Serum or Gmalrc02.0-31.0 [facility], AvonChloride [Moles/volume] in Serum or Plasma Ordered By: Kush Glez on 95-87-8986Pvsfoglv [Moles/Vol]Chloride [Moles/volume] in Serum or CxiqpdUnl66-790QalhwtkjhSelect Medical [facility] Clinic [facility] [place]on Comprehensive Metabolic Panelon 51-81-7767Ojzlgaf [Mass/Vol]3.8 g/dLNormal 3.5-5.7The Formerly [facility] Physician GroupComment on above:Performed By: #### DIFF CBC, CMP ####[facility] [address] [place] [address] USAAlbumin/Globulin [Mass ratio]1.3 {ratio}NormalThe [facility] Comment on above:Performed By: #### DIFF CBC, CMP ####[facility] [address] [place] [address] USAALP [Catalytic activity/Vol]74 U/L Ldtrtd00-308Xlh [facility] Physician GroupComment on above:Performed By: #### DIFF CBC, CMP ####[facility] [place] [address] USAALT [Catalytic activity/Vol]12 U/LNormal7-52The Formerly [facility] Physician GroupComment on above:Performed By: #### DIFF CBC, CMP ####[address] [address] USAAnion gap [Moles/Vol]13.5 mmol/LNormal6.0-15.0The Formerly [facility] Physician GroupComment on above:Performed By: #### DIFF CBC, CMP ####[address] [address] USAAST [Catalytic activity/Vol]17 U/ILhslhr04-32Hgw [facility] Physician GroupComment on above:Performed By: #### DIFF CBC, CMP ####[address] [address] USABilirubin [Mass/Vol]0.5 mg/dL Normal0.3-1.0The [facility] Physician GroupComment on above:Performed By: #### DIFF CBC, CMP ####[place] [id number] USACalcium [Mass/Vol]9.6 mg/dLNormal8.6-10.3The [facility] Comment on above:Performed By: #### DIFF CBC, CMP ####[address] [address] USAChloride [Moles/Vol]95 mmol/LLow 98-107The Formerly [facility] Physician GroupComment on above:Performed By: #### DIFF CBC, CMP ####[address] [address] [place] CO2 [Moles/Vol]28.2 mmol/SPsurmc25.0-31.0The [facility] Physician GroupComment on above:Performed By: #### DIFF CBC, CMP ####[address] [address] USACreatinine [Mass/Vol]1.22 mg/dLHigh0.60-1.20 The Former[facility] Physician GroupComment on above:Performed By: #### DIFF CBC, CMP ####[address] [place] [address] [place] Creatinine Clr Calc Gmtuogno00.49NoFormerly [facility], later [facility] Physician GroupComment on above:Result Comment: PERFORMED BY:[address]AB[address] QUIROGAKUL[place], [place] [phone] MEDICAL DIRECTORMONEGRITA JIMENEZ M.D.Performed By: #### DIFF CBC, CMP ####[address] [address] USAEstimated GFR50.176 mL/MinNoFormerly [facility], later [facility] Physician GroupComment on above:Performed By: #### DIFF CBC, CMP ####[place] [id number] [place] Globulin (S) [Mass/Vol]2.9 g/dLAdventHealth Brandon ER Physician GroupComment on above:Performed By: #### DIFF CBC, CMP ####[place] [address] USAGlucose [Mass/Vol]122 mg/lTYste09-534Wjl [facility] Physician GroupComment on above:Result Comment: Random Glucose Reference Range is dependent on time and content of last meal. Glucose of more than 200 mg/dL in a nonstressed, ambulatory subject supports the diagnosis of Diabetes Mellitus. ADA recommended reference rangePerformed By: #### DIFF CBC, CMP ####[place] [id number] [place] Potassium [Moles/Vol]3.7 mmol/LNormal3.5-5.1The [facility] Physician GroupComment on above:Performed By: #### DIFF CBC, CMP ####[place] [address] USAProtein [Mass/Vol]6.7 g/dLNormal 6.4-8.9The Formerly [facility] Physician GroupComment on above:Performed By: #### DIFF CBC, CMP ####[place] [address] USASodium [Moles/Vol]133 mmol/EFzr798-252Mvh [facility] Physician GroupComment on above:Performed By: #### DIFF CBC, CMP ####[address] [address] USAUrea nitrogen [Mass/Vol]12 mg/dLNormal7-25The Formerly [facility] Physician GroupComment on above:Performed By: #### DIFF CBC, CMP ####[address] [address] [place] Creatinine [Mass/volume] in Serum or PlasmaOrdered By: Kush Glez on 42-93-5110Bjnfmnsxft [Mass/Vol]Creatinine [Mass/volume] in Serum or PlasmaHigh 0.60-1.20[facility], AvonDiff and CBCon 44-94-1652Msosjglmggv distribution width (RBC) [Ratio]14.8 %Tsnsuv25.9-15.3The Formerly [facility] Physician GroupComment on above:Performed By: #### DIFF CBC, CMP ####[place] [address] USAHematocrit (Bld) [Volume fraction]24.4 %Low34.0-46.4The Formerly [facility] Physician GroupComment on above: Performed By: #### DIFF CBC, CMP ####[address] [address] USAHemoglobin (Bld) [Mass/Vol]8.3 g/dLLow11.8-15.4The Formerly [facility] Physician GroupComment on above:Performed By: #### DIFF CBC, CMP ####[address] [address] USAMCH (RBC) [Entitic mass]31.5 owYbuxir39.7-34.3The Formerly [facility] Physician GroupComment on above:Performed By: #### DIFF CBC, CMP ####[address] [address] USAMCV (RBC) [Entitic vol]93.2 yVIiwipx48-998Dtw [facility] Physician GroupComment on above:Performed By: #### DIFF CBC, CMP ####[address] [address] USAMean Corpuscular HGB Conc33.9 g/qBCsfppz13.0-35.0The [facility] Physician [facility] Care SystemComment on above:Performed By: #### DIFF CBC, CMP ####[address] [address] USAMyelocytes1 %High0-0The [facility] Physician [facility] Care SystemComment on above:Performed By: #### DIFF CBC, CMP ####[address] [address] USANucleated Red Blood Cell1 /100{WBC}High0-0The [facility] Physician [facility] Care SystemComment on above:Performed By: #### DIFF CBC, CMP ####[address] [address] USAPlatelet EstimateNormalNormalNormSanta Rosa Medical Center Physician [facility] Care SystemComment on above:Performed By: #### DIFF CBC, CMP ####[address] [address] USAPlatelet mean volume (Bld) [Entitic vol]8.9 fL Normal6.3-10.7The [facility] Physician [facility] Care SystemComment on above:Performed By: #### DIFF CBC, CMP ####[address] [address] USAPlatelet MorphologyNormalNormalNormSanta Rosa Medical Center Physician [facility] Comment on above:Result Comment: PERFORMED BY:[address] [place], [place] [phone] MEDICAL DIRECTORALTHEA MEADOWS M.D.Performed By: #### DIFF CBC, CMP ####[address] [address] [place] Platelets (Bld) [#/Vol]155 10*3/gZFfrtjr605-492Mvs [facility] Physician [facility] Comment on above:Performed By: #### DIFF CBC, CMP ####[address] [address] USAPromyelocytes1 %High0-0The [facility] Physician GroupComment on above:Performed By: #### DIFF CBC, CMP ####[address] [address] USARBC (Bld) [#/Vol]2.62 10*6/uLLow3.60-5.00The [facility] Physician GroupComment on above:Performed By: #### DIFF CBC, CMP ####[facility] [address] [place] [address] USARBC morphology finding Nom (Bld)NormalNormalAdventHealth Brandon ER Physician GroupComment on above:Performed By: #### DIFF CBC, CMP ####[facility] [address] [place] [address] USAToxic Granulation SlightNoFormerly [facility] Physician [facility] Care SystemComment on above:Performed By: #### DIFF CBC, CMP ####[facility] [address] [place] [address] USAWBC (Bld) [#/Vol]14.3 10*3/uLHigh3.8-11.6The [facility] Comment on above:Performed By: #### DIFF CBC, CMP ####[facility] [address]jg[address] [place] [address] USAEosinophils Auto (Bld) [#/Vol]Ordered By: Kush Glez on 85-93-0148Cnfpkuqxzdt (Bld) [#/Vol]Automated eosinophil countSelect Medical Cleveland Clinic [facility], AvonEosinophils/100 WBC Auto (Bld)Ordered By: Kush Glez on 38-23-0375Cotdzztwyoq/100 WBC (Bld)Automated eosinophil % [facility], AvonErythrocyte distribution width Auto (RBC) [Ratio]Ordered By: Kush Glez on 61-64-8712Ptcuhrbgyqy distribution width (RBC) [Ratio]Erythrocyte distribution width [Ratio] by Automated count11.9-15.3 [facility], AvonErythrocyte morphology finding [Identifier] in BloodOrdered By: Kush Glez on 21-70-1653BZQ morphology finding Nom (Bld)RBC morphologyNormTriHealth Good Samaritan HospitalGlobulin Calc (S) [Mass/Vol] Ordered By: Kush Glez on 31-70-7180Qawtfgfg (S) [Mass/Vol]Serum globulin measurement by calculation (mass/volume)[facility], AvonGlucose [Mass/volume] in Serum or PlasmaOrdered By: Kush Glez on 80-08-6163Dbcdbkn [Mass/Vol]Glucose [Mass/volume] in Serum or DvajjuBtfy01-759MjaggenttSelect Medical Cleveland Clinic [facility] Hospital, AvonComment on above:ADA recommended reference rangeRandom Glucose Reference Range is dependent on time and content of last meal. Glucose of more than 200 mg/dL in a nonstressed, ambulatory subject supports the diagnosisof Diabetes Mellitus.Hematocrit Auto (Bld) [Volume fraction]Ordered By: Kush Hooker on 66-02-4253Gdeffijgfc (Bld) [Volume fraction]Hematocrit [Volume Fraction] of Blood by Automated lqofjLec88.0-46.4FCincinnati Children's Hospital Medical CenterHemoglobin [Mass/volume] in BloodOrdered By: Kush Glez on 09-03-2024 Hemoglobin (Bld) [Mass/Vol]Hemoglobin [Mass/volume] in WjkmaBqr16.8-15.4 [facility], AvonLeukocytes [#/volume] corrected for nucleated erythrocytes in Blood by Automated counOrdered By: Kush Glez on 09-03-2024 WBC corrected for nucl RBC Auto (Bld) [#/Vol]Leukocytes [#/volume] corrected for nucleated erythrocytes in Blood by Automated counHigh3.8-11.6FCincinnati Children's Hospital Medical CenterLymphocytes Auto (Bld) [#/Vol]Ordered By: Kush Glez on 96-68-0609Xcxnopiatrw (Bld) [#/Vol]Lymphocytes [#/volume] in Blood by Automated countSelect Medical Cleveland Clinic [facility], AvonLymphocytes/100 WBC Auto (Bld)Ordered By: Kush Glez on 73-71-5863Rzszjbngyac/100 WBC (Bld)Lymphocytes/100 leukocytes in Blood by Automated countSelect Medical Cleveland Clinic [facility], AvonLymphocytes/100 WBC Manual cnt (Bld)Ordered By: Kush Glez on 09-42-6934Hfnnmddybuv/100 WBC (Bld)Lymphocytes/100 leukocytes in Blood by Manual nioniMgj68-67Cswilcecm Regional Medical CenterLymphocytes/100 leukocytes in Blood by Manual count Ordered By: Kush Glez on 50-50-5617Zhrvbexluvc/100 WBC (Bld)12 %Ohe00-51 [facility], AvonComment on above:Performed By: #### DIFF CBC, CMP ####[facility] [address] [place] [address] [facility] [place] Auto (RBC) [Entitic mass]Ordered By: Kush Glez on 35-00-3349GXK (RBC) [Entitic mass]MCH [Entitic mass] by Automated count24.7-34.3FCincinnati Children's Hospital Medical CenterMCHC Auto (RBC) [Mass/Vol]Ordered By: Kush Glez on 09-03-2024 MCHC (RBC) [Mass/Vol]MCHC [Mass/volume] by Automated count32.0-35.0[facility], AvonMCV Auto (RBC) [Entitic vol]Ordered By: Kush Glez on 89-79-7351TXD (RBC) [Entitic vol]MCV [Entitic volume] by Automated lmzea88-964 [facility], AvonMonocytes Auto (Bld) [#/Vol]Ordered By: Kush Hooker on 36-89-0005Zvjmvvpki (Bld) [#/Vol]Automated blood monocyte count [facility] AvonMonocytes/100 WBC Auto (Bld)Ordered By: Kush Hooker on 75-31-3910Mrjhyecgk/100 WBC (Bld)Automated monocyte %[facility], AvonMonocytes/100 WBC Manual cnt (Bld)Ordered By: Kush Hooker on 13-32-9787Abebnwwuz/100 WBC (Bld)Monocytes/100 leukocytes in Blood by Manual countHigh218 Dalton StreetMonocytes/100 leukocytes in Blood by Manual countOrdered By: Kush Glez on 30-38-6553Xeuilgxex/100 WBC (Bld)14 %High2-11[facility], AvonComment on above:Performed By: #### DIFF CBC, CMP ####[facility] [address] [place] [address] USAMyelocytes/100 WBC Manual cnt (Bld)Ordered By: Kush Glez on 41-12-3110Xdbactondc/100 WBC (Bld)Myelocytes/100 leukocytes in Blood by Manual count06 [address]rez StreetMyelocytes/100 WBC (Bld)1 %High[address] [place], [place] [address]Neutrophils Auto (Bld) [#/Vol] Ordered By: tara Glez on 54-58-6963Pxcfpgahhev (Bld) [#/Vol]Neutrophils [#/volume] in Blood by Automated countSelect Medical Cleveland Clinic [facility], [place] Neutrophils/100 WBC Auto (Bld)Ordered By: tara Glez on 09-03-2024 Neutrophils/100 WBC (Bld)Automated neutrophil %[facility] No Panel InformationOrdered By: tara Glez on 24-73-3669Teuarkqwi GFR (CKD-EPI)50.176 mL/MinSelect Medical Cleveland Clinic Rehabilitation Hospital, AvonPharmacy Creatinine Clearance (Chem46.49[facility], AvonNucleated RBC/100 WBC Manual cnt (Bld) [Ratio]Ordered By: tara Glez on 58-66-1695Wjijodkbi RBC/100 WBC (Bld) [Ratio]Nucleated erythrocytes/100 leukocytes [Ratio] in Blood by Manual count06 [address]ierrez StreetNucleated RBC/100 WBC (Bld) [Ratio]1 /100{WBC}[address] StreetNucleated erythrocytes [Presence] in Blood by Automated countOrdered By: Kush Glez on 56-58-0269Tqezywbgu RBC Auto Ql (Bld)Nucleated erythrocytes [Presence] in Blood by Automated countSelect Medical Cleveland Clinic [facility], AvonPlatelet adequacy [Presence] in Blood by Light microscopyOrdered By: Kush Glez on 42-34-8128Xeaiqhfjt LM Ql (Bld)Platelet adequacy [Presence] in Blood by Light microscopyNoal [facility], AvonPlatelet mean volume Auto (Bld) [Entitic vol] Ordered By: Kush Glez on 61-91-2071Kricivyl mean volume (Bld) [Entitic vol] Platelet mean volume [Entitic volume] in Blood by Automated count6.3-10.7 [facility], AvonPlatelet morphology finding [Identifier] in BloodOrdered By: Kush Glez on 14-11-6093Kqoczkzo morphology finding Nom (Bld)Platelet morphology finding [Identifier] in BloodNormalSelect Medical [facility] Clinic Rehabilitation Hospital, AvonPlatelets Auto (Bld) [#/Vol]Ordered By: Kush Glez on 33-73-6147Sfoqhejcj (Bld) [#/Vol]Platelets [#/volume] in Blood by Automated -671JbqgwlhmbSelect Medical Cleveland Clinic Rehabilitation Hospital, AvonPotassium [Moles/volume] in Serum or PlasmaOrdered By: Kush Glez on 22-03-9552Xychzoezm [Moles/Vol]Potassium [Moles/volume] in Serum or Plasma3.5-5.1FCincinnati Children's Hospital [facility] Promyelocytes/100 WBC Manual cnt (Bld)Ordered By: Kush Glez on 09-03-2024 Promyelocytes/100 WBC (Bld)Promyelocytes/100 leukocytes in Blood by Manual count High0-0[facility], AvonPromyelocytes/100 WBC (Bld)1 %High0-0 [facility], AvonProtein [Mass/volume] in Serum or PlasmaOrdered By: Kush Glez on 66-33-7684Lxzstbf [Mass/Vol]Protein [Mass/volume] in Serum or Plasma6.4-8.9[facility], AvonRBC Auto (Bld) [#/Vol] Ordered By: Kush Glez on 82-46-3744UTX (Bld) [#/Vol]Erythrocytes [#/volume] in Blood by Automated countLow3.60-5.00[facility] [place] Segmented neutrophils/100 WBC Manual cnt (Bld)Ordered By: Kush Glez on 07-88-2741Ihieveajm neutrophils/100 WBC (Bld)Manual blood segmented neutrophils/100 vypphdedgg40-51VcgqznyygSelect Medical Specialty Hospital - Cincinnatiegmented neutrophils/100 leukocytes in Blood by Manual countOrdered By: Kush Glez on 02-83-5597Jiyjqqsax neutrophils/100 WBC (Bld)68 %Wmkvsc81-60GhmwrrebrSelect Medical Cleveland Clinic Rehabilitation Hospital, AvonComment on above:Performed By: #### DIFF CBC, CMP ####[facility] [address] [place] [address] USASerum or plasma albumin/globulin mass ratioOrdered By: Kush Glez on 09-03-2024 Albumin/Globulin [Mass ratio]Serum or plasma albumin/globulin mass ratio [facility] Cincinnatierum or plasma anion gap determinationOrdered By: Kush Glez on 49-26-5433Doldd gap [Moles/Vol]Serum or plasma anion gap determination6.0-15.0[facility] - Cincinnatiodium [Moles/volume] in Serum or PlasmaOrdered By: Kush Glez on 57-81-8520Wmwqlq [Moles/Vol]Sodium [Moles/volume] in Serum or ZnebceAsj160-859MztgzluepSelect Medical Cleveland Clinic Rehabilitation Hospital, AvonUrea nitrogen [Mass/volume] in Serum or PlasmaOrdered By: Kush Glez on 09-06-0048Avgw nitrogen [Mass/Vol]Urea nitrogen [Mass/volume] in Serum or Plasma 7-25[facility], AvonWBC Auto (Bld) [#/Vol]Ordered By: Kush Hooker on 74-92-7357TTK (Bld) [#/Vol]Leukocytes [#/volume] in Blood by Automated countHigh3.8-11.6FCincinnati Children's Hospital Medical CenterAnisocytosis LM Ql (Bld)Ordered By: Kush Glez on 04-69-3375Mzpqjqjrkkjn Ql (Bld)Anisocytosis [Presence] in Blood by Light microscopySelect Medical [facility] Clinic [facility], [place]on Comprehensive Metabolic Panelon 99-32-7504Vtarfmg [Mass/Vol]3.9 g/dLNormal 3.5-5.7The [facility] Physician GroupComment on above:Performed By: #### CMP, DIFF CBC ####[address] [place] [address] USAAlbumin/Globulin [Mass ratio]1.6 {ratio}NormalThe [facility]ly [facility] Comment on above:Performed By: #### CMP, DIFF CBC ####[address] [place] [address] USAALP [Catalytic activity/Vol]79 U/L Wvpvcx83-048Ycy Former[facility] Physician GroupComment on above:Performed By: #### CMP, DIFF CBC ####[id number] USAALT [Catalytic activity/Vol]9 U/LNormal7-52The Former[facility] Physician GroupComment on above:Performed By: #### CMP, DIFF CBC ####[place] [address] USAAnion gap [Moles/Vol]10.3 mmol/LNormal6.0-15.0The Former[facility] Physician GroupComment on above:Performed By: #### CMP, DIFF CBC ####[place] [address] USAAST [Catalytic activity/Vol]16 U/MMzayqu31-36Knp [facility] Physician GroupComment on above:Performed By: #### CMP, DIFF CBC ####[place] [address] USABilirubin [Mass/Vol]0.2 mg/dL Low0.3-1.0The Former[facility] Physician GroupComment on above:Performed By: #### CMP, DIFF CBC ####[place] [address] USACalcium [Mass/Vol]9.1 mg/dLNormal8.6-10.3The [facility] Physician GroupComment on above:Performed By: #### CMP, DIFF CBC ####[place] [address] USAChloride [Moles/Vol]102 mmol/LNormal 98-107The [facility] GroupComment on above:Performed By: #### CMP, DIFF CBC ####[id number] [place] CO2 [Moles/Vol]27.9 mmol/PKoljml17.0-31.0The Former[facility] Physician GroupComment on above:Performed By: #### CMP, DIFF CBC ####[place] [address] USACreatinine [Mass/Vol]0.93 mg/dLNormal0.60-1.20 The Former[facility] Physician GroupComment on above:Performed By: #### CMP, DIFF CBC ####[id number] [place] Creatinine Clr Calc Pkqwbzyh77.99NoFormerly [facility], later [facility] Physician GroupComment on above:Result Comment: PERFORMED BY:[address] [place], [place] [phone] MEDICAL DIRECTORALTHEA JIMENEZ M.D.Performed By: #### CMP, DIFF CBC ####[id number] USAGFR/1.73 sq M.predicted MDRD (S/P/Bld) [Vol rate/Area]mL/min/{1.73_m2}NormalThe Formerly [facility] Physician GroupComment on above:Performed By: #### CMP, DIFF CBC ####[place] [address] USAGlobulin (S) [Mass/Vol]2.5 g/dLNoFormerly [facility], later [facility] Physician [facility] SystemComment on above:Performed By: #### CMP, DIFF CBC ####[place] [address] USAGlucose [Mass/Vol]87 mg/xQRtfyyb42-169Nwz [facility] Physician GroupComment on above: Result Comment: Random Glucose Reference Range is dependent on time and content of last meal. Glucose of more than 200 mg/dL in a nonstressed, ambulatory subject supports the diagnosis of Diabetes Mellitus. ADA recommended reference rangePerformed By: #### CMP, DIFF CBC ####[id number] USAPotassium [Moles/Vol]4.2 mmol/LNormal3.5-5.1 The [facility] Physician GroupComment on above:Performed By: #### CMP, DIFF CBC ####[id number] USAProtein [Mass/Vol]6.4 g/dLNormal6.4-8.9The Former[facility] Physician GroupComment on above: Performed By: #### CMP, DIFF CBC ####[address] [address] USASodium [Moles/Vol]136 mmol/AJsapum455-852Kgg [facility] Physician GroupComment on above:Performed By: #### CMP, DIFF CBC ####[address] [place] [address] USAUrea nitrogen [Mass/Vol]15 mg/dLNormal7-25The Former[facility] Physician GroupComment on above:Performed By: #### CMP, DIFF CBC ####[address] [address] USADiff and CBCon 88-93-2364Gvazbxkoufrh Ql (Bld) SlightNormalThe Formerly [facility] Physician GroupComment on above:Performed By: #### CMP, DIFF CBC ####[address] USABand form neutrophils/100 WBC (Bld)11 %High0-5The Former[facility] Physician GroupComment on above:Performed By: #### CMP, DIFF CBC ####[address] [address] USAErythrocyte distribution width (RBC) [Ratio]14.3 %Jbthcx92.9-15.3The Formerly [facility] Physician GroupComment on above:Performed By: #### CMP, DIFF CBC ####[address] [address] USAHematocrit (Bld) [Volume fraction]29.9 %Low 34.0-46.4The Former[facility] Physician GroupComment on above:Performed By: #### CMP, DIFF CBC ####[address] [address] USAHemoglobin (Bld) [Mass/Vol]10.1 g/dLLow11.8-15.4The [facility] Comment on above:Performed By: #### CMP, DIFF CBC ####[address] [address] USALymphocytes/100 WBC (Bld)14 %Rxq29-70 The [facility] Physician GroupComment on above:Performed By: #### CMP, DIFF CBC ####[address] [address] [facility] [place] (RBC) [Entitic mass]32.1 hcEelxwv42.7-34.3The Formerly [facility] Physician GroupComment on above:Performed By: #### CMP, DIFF CBC ####[address] [address] [facility] [place]BC) [Entitic vol]95.5 iQKrwasw78-574Sfp Former[facility] Physician GroupComment on above:Performed By: #### CMP, DIFF CBC ####[place] [address] USAMean Corpuscular HGB Conc33.6 g/oAJrhahz99.0-35.0The Formerly [facility] Physician GroupComment on above:Performed By: #### CMP, DIFF CBC ####[address] [address] USAMetamyelocytes4 %High0-0The Former[facility] Physician GroupComment on above:Performed By: #### CMP, DIFF CBC ####[id number] USAMonocytes/100 WBC (Bld)8 %Normal2-11The Former[facility] Physician GroupComment on above:Performed By: #### CMP, DIFF CBC ####[address] [address] USAOvalocytesSlightNoFormerly [facility], later [facility] Physician GroupComment on above: Performed By: #### CMP, DIFF CBC ####[address] [address] USAPlatelet EstimateDecreasedNormalAdventHealth Brandon ER Physician GroupComment on above:Result Comment: PERFORMED BY:[address] [place], [place] [phone] MEDICAL DIRECTORALTHEA MEADOWS M.D.Performed By: #### CMP, DIFF CBC ####[address] [place] [address] [place] Platelet mean volume (Bld) [Entitic vol]8.3 fLNormal6.3-10.7The Formerly [facility] Physician GroupComment on above:Performed By: #### CMP, DIFF CBC ####[address] [address] USAPlatelet Morphology NormalNormalNoFormerly [facility], later [facility] Physician GroupComment on above:Result Comment: PERFORMED BY:[address]ETURSULAISID[place], [place] [phone] MEDICAL DIRECTORALTHEA MEADOWS M.D. Performed By: #### CMP, DIFF CBC ####[address] [address] USAPlatelets (Bld) [#/Vol]140 10*3/xNOnn252-441Qqy [facility] Physician GroupComment on above:Performed By: #### CMP, DIFF CBC ####[address] [address] [place] PoikilocytosisSlightNoFormerly [facility], later [facility] Physician GroupComment on above: Performed By: #### CMP, DIFF CBC ####[address] [address] USAPolychromasiaSAtrium Health Providence Physician GroupComment on above:Performed By: #### CMP, DIFF CBC ####[address] [address] USARBC (Bld) [#/Vol]3.14 10*6/uL Low3.60-5.00The Former[facility] Physician GroupComment on above:Performed By: #### CMP, DIFF CBC ####[address] [address] USAReactive Lymphocytes7 %Normal0-12The Former[facility] Physician GroupComment on above:Performed By: #### CMP, DIFF CBC ####[address] [address] USASegmented neutrophils/100 WBC (Bld)57 %Normal 50-70The Former[facility] Physician GroupComment on above:Performed By: #### CMP, DIFF CBC ####[facility] [address] [place] [address] [place] StomatocytesSlightNormalThe Formerly [facility] Physician GroupComment on above:Performed By: #### CMP, DIFF CBC ####[facility] [address] [place] [address] USAWBC (Bld) [#/Vol]19.1 10*3/uLHigh3.8-11.6The Formerly [facility] Physician GroupComment on above:Performed By: #### CMP, DIFF CBC ####[facility] [place] [address] [facility] Metamyelocytes/100 WBC Manual cnt (Bld)Ordered By: Kush Glez on 08-21-2024 Metamyelocytes/100 WBC (Bld)Metamyelocytes/100 leukocytes in Blood by Manual countHigh0-0[facility], AvonMetamyelocytes/100 WBC (Bld)4 %High 0-0[facility], AvonOvalocytes [Presence] in Blood by Light microscopyOrdered By: Kush Glez on 10-44-5647Rxkwvliizs LM Ql (Bld) Ovalocyte detectionSelect Medical Cleveland Clinic Rehabilitation Hospital, AvonPoikilocytosis [Presence] in Blood by Light microscopyOrdered By: Kush Glez on 50-17-9246Ikguskavduotbb LM Ql (Bld)Poikilocytosis [Presence] in Blood by Light microscopySelect Medical Cleveland Clinic Rehabilitation Hospital, AvonPolychromasia [Presence] in Blood by Light microscopy Ordered By: Kush Glez on 97-15-7543Igeeaobsulgte LM Ql (Bld)Polychromasia [Presence] in Blood by Light microscopySelect Medical [facility] Clinic [facility], [place] Stomatocytes [Presence] in Blood by Light microscopyOrdered By: Kush Glez on 74-47-5787Sumvftbocjuo LM Ql (Bld)Red blood cell stomatocyte detection [facility] Cincinnatitomatocytes LM Ql (Bld)SlightSelect Medical Cleveland Clinic Rehabilitation Hospital, AvonVariant lymphocytes/100 WBC Manual cnt (Bld)Ordered By: Kush Glez on 78-42-0720Xqfojgm lymphocytes/100 WBC (Bld)Variant lymphocytes/100 leukocytes in Blood by Manual count0-[facility], AvonVariant lymphocytes/100 WBC (Bld)7 %0-[facility], AvonComprehensive Metabolic Panelon 06-08-1588Tzenrcn [Mass/Vol]4.0 g/dL Normal3.5-5.7The Former[facility] Physician GroupComment on above:Performed By: #### CMP, DIFF CBC ####[id number] USAAlbumin/Globulin [Mass ratio]1.4 {ratio}NormalThe [facility]ly [facility] Physician [facility] Care SystemComment on above:Performed By: #### CMP, DIFF CBC ####[address] [address] USAALP [Catalytic activity/Vol]88 U/BRsiatl18-720Mgr [facility] Physician [facility] Care SystemComment on above:Performed By: #### CMP, DIFF CBC ####[address] [address] USAALT [Catalytic activity/Vol]11 U/LNormal7-52The [facility] Physician GroupComment on above:Performed By: #### CMP, DIFF CBC ####[address] [address] USAAnion gap [Moles/Vol]12.1 mmol/LNormal6.0-15.0The Former[facility] Physician GroupComment on above:Performed By: #### CMP, DIFF CBC ####[address] [address] USAAST [Catalytic activity/Vol]18 U/QXsealo95-03Msv [facility] Physician GroupComment on above:Performed By: #### CMP, DIFF CBC ####[address] [address] USABilirubin [Mass/Vol]0.3 mg/dL Normal0.3-1.0The Former[facility] Physician GroupComment on above:Performed By: #### CMP, DIFF CBC ####[address] [address] USACalcium [Mass/Vol]9.3 mg/dLNormal8.6-10.3The [facility] Comment on above:Performed By: #### CMP, DIFF CBC ####[address] USAChloride [Moles/Vol]102 mmol/LNormal 98-107The [facility] Physician GroupComment on above:Performed By: #### CMP, DIFF CBC ####[address] [place] CO2 [Moles/Vol]28.7 mmol/EHyfcqk93.0-31.0The Former[facility] Physician GroupComment on above:Performed By: #### CMP, DIFF CBC ####[address] USACreatinine [Mass/Vol]0.82 mg/dLNormal0.60-1.20 The Former[facility] Physician GroupComment on above:Performed By: #### CMP, DIFF CBC ####[place] [address] [place] Creatinine Clr Calc Ngwhrdwm12.17NoFormerly [facility] Physician GroupComment on above:Result Comment: PERFORMED BY:[address] [place], [place] [phone] MEDICAL DIRECTORALTHEA JIMENEZ M.D.Performed By: #### CMP, DIFF CBC ####[id number] USAGFR/1.73 sq M.predicted MDRD (S/P/Bld) [Vol rate/Area]mL/min/{1.73_m2}NormalThe Formerly [facility] Physician GroupComment on above:Performed By: #### CMP, DIFF CBC ####[address] USAGlobulin (S) [Mass/Vol]2.9 g/dLAdventHealth Brandon ER Physician [facility] Care SystemComment on above:Performed By: #### CMP, DIFF CBC ####[address] USAGlucose [Mass/Vol]133 mg/mBFzcu82-023Lvq [facility] Physician GroupComment on above: Result Comment: Random Glucose Reference Range is dependent on time and content of last meal. Glucose of more than 200 mg/dL in a nonstressed, ambulatory subject supports the diagnosis of Diabetes Mellitus. ADA recommended reference rangePerformed By: #### CMP, DIFF CBC ####[address] [place] [address] USAPotassium [Moles/Vol]3.8 mmol/LNormal3.5-5.1 The Former[facility] Physician GroupComment on above:Performed By: #### CMP, DIFF CBC ####[address] [place] [address] USAProtein [Mass/Vol]6.9 g/dLNormal6.4-8.9The Former[facility] Physician GroupComment on above: Performed By: #### CMP, DIFF CBC ####[address] [address] USASodium [Moles/Vol]139 mmol/MOgjwlp802-939Juj [facility] Physician GroupComment on above:Performed By: #### CMP, DIFF CBC ####[address] [address] USAUrea nitrogen [Mass/Vol]11 mg/dLNormal7-25The [facility] Physician GroupComment on above:Performed By: #### CMP, DIFF CBC ####[address] [address] USADiff and CBCon 02-33-2485Uxbi form neutrophils/100 WBC (Bld)4 %Normal0-5The Former[facility] Physician GroupComment on above:Performed By: #### CMP, DIFF CBC ####[address] [address] USAErythrocyte distribution width (RBC) [Ratio] 14.0 %Hzvdmt38.9-15.3The Formerly [facility] Physician GroupComment on above:Performed By: #### CMP, DIFF CBC ####[address] [address] USAGiant Platelet Tally1 /100{WBC}NormalThe [facility] Comment on above:Performed By: #### CMP, DIFF CBC ####[id number] USAHematocrit (Bld) [Volume fraction] 37.7 %Iqppkm19.0-46.4The Formerly [facility] Physician GroupComment on above:Performed By: #### CMP, DIFF CBC ####[address] USAHemoglobin (Bld) [Mass/Vol]12.6 g/sBDjeiqq98.8-15.4The Former[facility] Physician GroupComment on above:Performed By: #### CMP, DIFF CBC ####[address] USALymphocytes/100 WBC (Bld)20 %Jehkcz44-21Lun [facility] Physician GroupComment on above:Performed By: #### CMP, DIFF CBC ####[address] USAMCH (RBC) [Entitic mass]32.0 xlPoeife35.7-34.3The Former[facility] Physician GroupComment on above:Performed By: #### CMP, DIFF CBC ####[address] [place] USAMCV (RBC) [Entitic vol]95.5 fEYgzfee27-952Nfu [facility] Physician GroupComment on above:Performed By: #### CMP, DIFF CBC ####[address] USAMean Corpuscular HGB Conc33.5 g/aESekzch10.0-35.0The Former[facility] Physician GroupComment on above:Performed By: #### CMP, DIFF CBC ####[address] [place] [place] Metamyelocytes2 %High0-0The [facility] Physician GroupComment on above:Performed By: #### CMP, DIFF CBC ####[address] USAMonocytes/100 WBC (Bld)12 %High2-11The Former[facility] Physician GroupComment on above:Performed By: #### CMP, DIFF CBC ####[address] [address] USAMyelocytes1 %High0-0 The [facility] Physician GroupComment on above:Performed By: #### CMP, DIFF CBC ####[address] [address] [place] Nucleated Red Blood Cell1 /100{WBC}High0-0The [facility] Physician GroupComment on above:Performed By: #### CMP, DIFF CBC ####[address] [address] USAPlatelet EstimateNormalNormalNormSanta Rosa Medical Center Physician GroupComment on above:Performed By: #### CMP, DIFF CBC ####[address] [address] [place] Platelet mean volume (Bld) [Entitic vol]7.8 fLNormal6.3-10.7The [facility] Physician GroupComment on above:Result Comment: PERFORMED BY:[address] [place], [place] [phone] MEDICAL DIRECTORMONEGRITA MEADOWS M.D.Performed By: #### CMP, DIFF CBC ####[address] [address] [place] Platelet MorphologyNormalNormalNormSanta Rosa Medical Center Physician GroupComment on above:Result Comment: PERFORMED BY:[address] [place], [place] [phone] MEDICAL DIRECTORMONEGRITA JIMENEZ M.D.Performed By: #### CMP, DIFF CBC ####[address] [address] USAPlatelets (Bld) [#/Vol]227 10*3/uL Ckkcdu015-273Waf [facility] Physician GroupComment on above:Performed By: #### CMP, DIFF CBC ####[address] [address] USARBC (Bld) [#/Vol]3.95 10*6/uLNormal3.60-5.00The Former[facility] Physician GroupComment on above:Performed By: #### CMP, DIFF CBC ####[address] [place] [address] USARBC morphology finding Nom (Bld)NormalNormalNormParkview Medical CenterComment on above:Performed By: #### CMP, DIFF CBC ####[address] [place] [address] USASegmented neutrophils/100 WBC (Bld)62 %Qdezck58-16 The [facility] Physician GroupComment on above:Performed By: #### CMP, DIFF CBC ####[address] [place] [address] USAToxic GranulationModerateNormParkview Medical CenterComment on above:Performed By: #### CMP, DIFF CBC ####[address] [address] USAWBC (Bld) [#/Vol]9.1 10*3/uLNormal3.8-11.6The [facility] Hospital - PoconoComment on above:Performed By: #### CMP, DIFF CBC ####[address] [address] USAGiant platelets/100 leukocytes [Ratio] in Blood by Manual countOrdered By: Kush Hooker on 86-29-5297Cdnvv platelets/100 WBC Manual cnt (Bld) [Ratio]Giant platelets/100 leukocytes [Ratio] in Blood by Manual countSelect Medical [facility] Clinic Rehabilitation Hospital, AvonGiant platelets/100 WBC Manual cnt (Bld) [Ratio]1 /100{WBC} [facility], AvonAmbulatory Visit Summaryon 57-70-4205Wakgfaemtu Visit SummaryAmbulatory Visit Summary ADELINA MIR :1960 Visit Date:08/06/2024 Ambulatory Visit Instructions Your Diagnosis Breast cancer of lower-inner quadrant of left female breast Your Care Team Attending Physician - APARNA PRATT, Roshan Horner Primary Care Physician - Kishan PRATT, Michael Barker This Is Your Medications List Contact prescribing physician if questions or concerns Non-Formulary Medication (Misc Medication) alprazolam (alprazolam 0.25 mg Tab) aspirin (aspirin 81 mg Oral EC Tab) cetirizine (cetirizine 10 mg Tab) cyclobenzaprine (cyclobenzaprine 10 mg Tab) fluticasone nasal (Flonase 0.05 mg/inh Amalia) gabapentin (gabapentin 300 mg Cap) hydrochlorothiazide-losartan (Hyzaar 12.5 mg-50 mg Tab) Procedures Performed Insertion of implantable venous access port (07/22/2024), Mastectomy (05/16/2024), Excision of intradermal nevus (02/20/2024), Excision of breast mass (01/10/2024), Biopsy of breast (06/27/2023), Arthroscopy of knee (06/04/1995), Appendectomy, Breast reconstruction, Cholecystectomy, Extraction of wisdom tooth, Foot, Removal of breast implant, Simple dental extraction, DEAN BSO - Total abdominal hysterectomy and bilateral salpingo-oophorectomy, Tonsillectomy and adenoidectomy. What to do next Scheduled Follow-Up Appointments Monday 1:00 PM EST With: Kishan PRATT, Michael Barker Where: [address] [address]- Monday 1:00 PM EDT With: Where: [address] [address]- Medications What How Much When Why Instructions Unchanged alprazolam (alprazolam 0.25 mg Tab) See instructions 1 tab tid prn Contact prescribing physician if questions or concerns Unchanged aspirin (aspirin 81 mg Oral EC Tab) 1 Tablets By Mouth Every day Contact prescribing physician if questions or concerns Unchanged cetirizine (cetirizine 10 mg Tab) 1 Tablets By Mouth Every day Anxiety Breast cancer of lower-inner quadrant of left female breast HTN (hypertension) BMI 24.0-24.9, adult Former smoker Seasonal allergies Contact prescribing physician if questions or concerns Unchanged cyclobenzaprine (cyclobenzaprine 10 mg Tab) 1 Tablets By Mouth At bedtime as needed for for spasm Contact prescribing physician if questions or concerns Unchanged fluticasone nasal (Flonase 0.05 mg/ inh Amalia) 2 Sprays Nasal Inhalation Every day Anxiety Breast cancer of lower-inner quadrant of left female breast HTN (hypertension) BMI 24.0-24.9, adult Former smoker Seasonal allergies each nostril Contact prescribing physician if questions or concerns Unchanged gabapentin (gabapentin 300 mg Cap) 1 Capsules By Mouth 3 times a day Contact prescribing physician if questions or concerns Unchanged hydrochlorothiazide-losartan (Hyzaar 12.5 mg-50 mg Tab) 1 Tablets By Mouth Every day Contact prescribing physician if questions or concerns Unchanged Non-Formulary Medication (Misc Medication) See instructions balance of nature-3 tabs a day Contact prescribing physician if questions or concerns Allergies Entex (Unknown) Skelaxin (Unknown) corticosteroids (Anaphylaxis) Problems Ongoing - Any problem that you are currently receiving treatment for. 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 BMI 23.0-23.9, adult Polyneuropathy RSD lower limb Patient Survey You may receive a survey via text or e-mail asking about your office visit. Please share your experience with us by completing your survey. We appreciate your feedback and thank you for choosing us for your care. [facility] Visit Summary ADELINA MIR :1960 Visit Date:08/06/2024 Ambulatory Visit Instructions Your Diagnosis Anxiety Breast cancer of lower-inner quadrant of left female breast HTN (hypertension) Former smoker Seasonal allergies Your Care Team Attending Physician - Michael Holley MD Primary Care Physician - Michael Holley MD This Is Your Medications List Non-Formulary Medication (Misc Medication) alprazolam (alprazolam 0.25 mg Tab) aspirin (aspirin 81 mg Oral EC Tab) cetirizine (cetirizine 10 mg Tab) cyclobenzaprine (cyclobenzaprine 10 mg Tab) fluticasone nasal (Flonase 0.05 mg/inh Amalia) gabapentin (gabapentin 300 mg Cap) hydrochlorothiazide-losartan (Hyzaar 12.5 mg-50 mg Tab) Procedures Performed Insertion of implantable venous access port (07/22/2024), Mastectomy (05/16/2024), Excision of intradermal nevus (02/20/2024), Excision of breast mass (01/10/2024), Biopsy of breast (06/27/2023), Arthroscopy of knee (06/04/1995), Appendectomy, Breast reconstruction, Cholecystectomy, Extraction of wisdom tooth, Foot, Removal of breast implant, Simple dental extraction, DEAN BSO - Total abdominal hysterectomy and bilateral salpingo-oophorectomy, Tonsillectomy and adenoidectomy. Discharge Vitals Temperature (Oral) 36.6 ???C Heart Rate (Peripheral) 78 Respiratory Rate 16 Blood Pressure 132/82 Height 165.5 cm Height 65 in Weight 67.6 kg Weight 149.032 lb BMI 24.68 What to do next Scheduled Follow-Up Appointments Monday 2:20 PM EST With: APARNA PRATT, Roshan Horner Where: [facility] General Surgery [address], [address], [place] [address]- Monday 1:00 PM EST With: Kishan PRATT, Michael Barker Where: [address] [address]- Monday 1:00 PM EDT With: Where: [address] [address]- Medications What How Much When Why Instructions New cetirizine (cetirizine 10 mg Tab) 1 Tablets By Mouth Every day Anxiety Breast cancer of lower-inner quadrant of left female breast HTN (hypertension) BMI 24.0-24.9, adult Former smoker Seasonal allergies Pickup at [facility] New fluticasone nasal (Flonase 0.05 mg/ inh Amalia) 2 Sprays Nasal Inhalation Every day Anxiety Breast cancer of lower-inner quadrant of left female breast HTN (hypertension) BMI 24.0-24.9, adult Former smoker Seasonal allergies each nostril Pickup at [facility] Unchanged alprazolam (alprazolam 0.25 mg Tab) See instructions 1 tab tid prn Unchanged aspirin (aspirin 81 mg Oral EC Tab) 1 Tablets By Mouth Every day Unchanged cyclobenzaprine (cyclobenzaprine 10 mg Tab) 1 Tablets By Mouth At bedtime as needed for for spasm Unchanged gabapentin (gabapentin 300 mg Cap) 1 Capsules By Mouth 3 times a day Unchanged hydrochlorothiazide-losartan (Hyzaar 12.5 mg-50 mg Tab) 1 Tablets By Mouth Every day Unchanged Non-Formulary Medication (Misc Medication) See instructions balance of nature-3 tabs a day Pharmacy Information [facility]: [address], [place] [id number] [phone] Allergies Entex (Unknown) Skelaxin (Unknown) corticosteroids (Anaphylaxis) Problems Ongoing - Any problem that you are currently receiving treatment for. 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 BMI 23.0-23.9, adult Polyneuropathy RSD lower limb Patient Survey You may receive a survey via text or e-mail asking about your office visit. Please share your experience with us by completing your survey. We appreciate your feedback and thank you for choosing us for your care. [facility] Medicine Office/Clinic Noteon [id number] Office/Cl[facility] NoteF[facility]/Clinic Note HPI Staff Adelina is a 63 year old female presenting for 3 month follow up anxiety and meds Follow up for Mental Status: Medication adherence- Yes, takes medication as prescribed Medication refill needed: _ Suicidal thoughts-Not at this time Most recent JOHN:9 Most recent PHQ: 0 Opioids prescribed: alprazolam 0.25mg tid prn Medication agreement UTD: due done + for bzo, thc, tca Urine drug screen performed:duetoday questions/concerns: something for allergies, non steroidal cancer dr suggest maybe flonase History of Present Illness Here for follow up. Wants to discuss allergy meds. Pt states she is having issues with sinus drainage and nasal congestion. Benadryl does make her wired. She would like something else. Taking her Xanax. Has been taking it 3x a day for 30 years. No other issues at this time. Review of Systems PHQ Score Initial Depression Screen Score: 0 SCORE Physical Exam Vitals & Measurements T: 36.6 ???C(Oral) HR: 78(Peripheral) RR: 16 BP: 132/82 SpO2: 99% HT: 65 in HT: 165.5 cm WT: 67.6 kg WT: 149.032 lb BMI: 24.68 General: alert, no acute distress ENMT: oral mucosa moist, Cardiovascular: regular rate and rhythm, normal peripheral perfusion Respiratory: Lungs CTA, respirations non labored Extremities: no deformity, no trauma Neurological: oriented x 4, LOC appropriate for age, CN II-XII intact, motor strength equal & normal bilaterally, speech normal Abdomen: Soft, Nontender, Non-distended, + BS Assessment/Plan 1. Anxiety (F41.9: Anxiety disorder, unspecified) Doing well. Will refill the Xanax at this time. Ordered: cetirizine, 10 mg = 1 tab(s), Oral, Daily, # 90 tab(s), Refills(s) 0, Pharmacy: [facility], 165.5, cm, 08/06/24 13:24:00 EST, Height/Length Dosing, 67.6, kg, 08/06/24 13:24:00 EST, Weight Dosing fluticasone nasal, 2 spray(s), Nasal, Daily, 16 gram, Refill(s) 0, each nostril, [facility], 165.5, cm, 08/06/24 13:24:00 EST, Height/Length Dosing, 67.6, kg, 08/06/24 13:24:00 EST, Weight Dosing Body Mass Index (BMI) documented 3008F Current tobacco non-user 1036F Depression Screening Negative 3352F Drug Screen POC 68748 Most recent diastolic blood pressure 80-89 mm Hg 3079F Patient screen for fall risk: no falls in last year or 1 fall with no injury in last year 1101F Systolic BP 130-139 mm Hg (Most Recent) 3075F 2. Breast cancer of lower-inner quadrant of left female breast (C50.312: Malignant neoplasm of lower-inner quadrant of left female breast) Just had her one chemo treatment. Feels good. Ordered: cetirizine, 10 mg = 1 tab(s), Oral, Daily, # 90 tab(s), Refills(s) 0, Pharmacy: [facility], 165.5, cm, 08/06/24 13:24:00 EST, Height/Length Dosing, 67.6, kg, 08/06/24 13:24:00 EST, Weight Dosing fluticasone nasal, 2 spray(s), Nasal, Daily, 16 gram, Refill(s) 0, each nostril, [facility], 165.5, cm, 08/06/24 13:24:00 EST, Height/Length Dosing, 67.6, kg, 08/06/24 13:24:00 EST, Weight Dosing Body Mass Index (BMI) documented 3008F Current tobacco non-user 1036F Depression Screening Negative 3352F Drug Screen POC 30425 Most recent diastolic blood pressure 80-89 mm Hg 3079F Patient screen for fall risk: no falls in last year or 1 fall with no injury in last year 1101F Systolic BP 130-139 mm Hg (Most Recent) 3075F 3. HTN (hypertension) (I10: Essential (primary) hypertension) Well controlled. Ordered: cetirizine, 10 mg = 1 tab(s), Oral, Daily, # 90 tab(s), Refills(s) 0, Pharmacy: [facility], 165.5, cm, 08/06/24 13:24:00 EST, Height/Length Dosing, 67.6, kg, 08/06/24 13:24:00 EST, Weight Dosing fluticasone nasal, 2 spray(s), Nasal, Daily, 16 gram, Refill(s) 0, each nostril, [facility], 165.5, cm, 08/06/24 13:24:00 EST, Height/Length Dosing, 67.6, kg, 08/06/24 13:24:00 EST, Weight Dosing Body Mass Index (BMI) documented 3008F Current tobacco non-user 1036F Depression Screening Negative 3352F Drug Screen POC 73949 Most recent diastolic blood pressure 80-89 mm Hg 3079F Patient screen for fall risk: no falls in last year or 1 fall with no injury in last year 1101F Systolic BP 130-139 mm Hg (Most Recent) 3075F 4. Former smoker (Z87.891: Personal history of nicotine dependence) Please continue not to smoke Ordered: cetirizine, 10 mg = 1 tab(s), Oral, Daily, # 90 tab(s), Refills(s) 0, Pharmacy: [facility], 165.5, cm, 08/06/24 13:24:00 EST, Height/Length Dosing, 67.6, kg, 08/06/24 13:24:00 EST, Weight Dosing fluticasone nasal, 2 spray(s), Nasal, Daily, 16 gram, Refill(s) 0, each nostril, [facility], 165.5, cm, 08/06/24 13:24:00 EST, Height/Length Dosing, 67.6, kg, 08/06/24 13:24:00 EST, Weight Dosing Body Mass Index (BMI) documented 3008F Current tobacco non-user 1036F Depression Screening Negative 3352F Most recent diastolic blood pressure 80-89 mm Hg 3079F Patient screen for fall risk: no falls in last year or 1 fall with no injury in last (more content not included)...[facility] Medical CenterComment on above:Result Comment: Electronically Signed By: Kishan PRATT, Michael Ball.br\Date and Time Signed: 08/06/24 13:40 ESTGeneral Surgery Office/Clinic Noteon 08-06-2024 General Surgery Office/Clinic NoteGeneral Surgery Office/Clinic Note Chief Complaint post operative follow up HPI Staff 15 day post operative follow up post insertion of Znqlyp-n-jqnn. Denies discomfort, no use of pain medication. Denies bleeding or drainage. Port was accessed for first chemotherapy treatment without incident. History of Present Illness 2 weeks s/p right external jugular port-a-cath insertion; doing well, denies pain or drainage; portworking well. Review of Systems PHQ Score Initial Depression Screen Score: 0 SCORE ROS - Provider Constitutional: no fever, no sweats, no weight loss. Eyes: no glasses, no blurred vision, no visual loss. ENMT: no dentures, no hoarseness, no swallowing difficulties, no hearing loss, no ear infection(s),no nose bleeds. Cardiovascular: normal blood pressure, no [...] are negative or noncontributory. Physical Exam skin: incisions healing well, no erythema or drainage, no ecchymosis. Assessment/Plan 1. Breast cancer of lower-inner quadrant of left female breast (C50.312: Malignant neoplasm of lower-inner quadrant of left female breast) s/p port placement; doing well, call with problems/questions. 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 Intradermal melanocytic nevus Neoplasm of uncertain behavior of skin of back Neoplasm of uncertain behavior of skin of face Poor venous access Pre-op exam Scoliosis Seasonal allergies Historical BMI 23.0-23.9, adult Polyneuropathy RSD lower limb Procedure/Surgical History Insertion of implantable venous access port (07/22/2024), Mastectomy (05/16/2024), Excision of intradermal nevus (02/20/2024), Excision of breast mass (01/10/2024), Biopsy of breast (06/27/2023), Arthroscopy of knee (06/04/1995), Appendectomy, Breast reconstruction, Cholecystectomy, Extraction of wisdom tooth, Foot, Removal of breast implant, Simple dental extraction, DEAN BSO - Total abdominal hysterectomy and bilateral salpingo-oophorectomy, Tonsillectomy and adenoidectomy. Medications alprazolam 0.25 mg Tab, See Instructions aspirin 81 mg Oral EC Tab, 81 mg= 1 tab(s), Oral, Daily cetirizine 10 mg Tab, 10 mg= 1 tab(s), Oral, Daily cyclobenzaprine 10 mg Tab, 10 mg= 1 tab(s), Oral, Bedtime, PRN, 3 refills Flonase 0.05 mg/inh Amalia, 2 spray(s), Nasal, Daily gabapentin 300 mg Cap, 300 mg= 1 cap(s), Oral, TID Hyzaar 12.5 mg-50 mg Tab, 1 tab(s), Oral, Daily, 3 refills Misc Medication, See Instructions Allergies Entex (Unknown) Skelaxin (Unknown) corticosteroids (Anaphylaxis) Social History Alcohol - Medium Risk, 04/29/2024 Current. Wine, Liquor. 1-2 times per month., 08/06/2024 Substance Abuse Current. Marijuana. Daily. Previous treatment: None., 08/06/2024 Tobacco - Denies Tobacco Use, 04/29/2024 Former smoker, quit more than 30 days ago Tobacco Use:., 08/06/2024 Family History Primary malignant neoplasm of lung: Mother. Immunizations Vaccine Date Status Comments influenza virus vaccine, inactivated - Not Given Patient Refuses influenza virus vaccine, inactivated - Not Given Patient Refuses influenza virus vaccine, inactivated - Not Given Patient Refuses SARS-CoV-2 mRNA (tozinameran 5y-11y) vac - Not Given Postpone due to refusal [facility] CenterComment on above:Result Comment: Electronically Signed By: APARNA PRATT, Roshan Hargrove\Date and Time Signed: 08/06/24 14:34 ESTECH echo transthoracicon 65-22-1840VII echo transthoracicNoFormerly [facility], later [facility] Physician GroupComprehensive Metabolic Panelon [id number] [Mass/Vol]3.8 g/dLNormal3.5-5.7The [facility] Physician GroupComment on above:Performed By: #### SCAN CBC, CMP ####[address] [place] [address] USAAlbumin/Globulin [Mass ratio]1.6 {ratio}NormalThe Formerly [facility] Physician GroupComment on above:Performed By: #### SCAN CBC, CMP ####[address] [address] USAALP [Catalytic activity/Vol]96 U/AZvauov21-828Stm [facility] Physician GroupComment on above: Performed By: #### SCAN CBC, CMP ####[address] [address] USAALT [Catalytic activity/Vol]9 U/LNormal7-52The [facility] Physician GroupComment on above:Performed By: #### SCAN CBC, CMP ####[address] [address] USAAnion gap [Moles/Vol]10.3 mmol/LNormal6.0-15.0The [facility] Physician GroupComment on above:Performed By: #### SCAN CBC, CMP ####[address] [address] USAAST [Catalytic activity/Vol]17 U/KHfdenj40-34 The [facility] Physician GroupComment on above:Performed By: #### SCAN CBC, CMP ####[address] [address] [place] Bilirubin [Mass/Vol]0.5 mg/dLNormal0.3-1.0The Former[facility] Physician GroupComment on above:Performed By: #### SCAN CBC, CMP ####[address] [address] USACalcium [Mass/Vol]8.9 mg/dLNormal8.6-10.3The [facility] Physician GroupComment on above:Performed By: #### SCAN CBC, CMP ####[address] [address] [place] Chloride [Moles/Vol]102 mmol/AHjgsoc76-431Nwk [facility] Physician GroupComment on above:Performed By: #### SCAN CBC, CMP ####[address] [place] [address] USACO2 [Moles/Vol]28.9 mmol/FRewluk59.0-31.0The Former[facility] Physician GroupComment on above:Performed By: #### SCAN CBC, CMP ####[address] [place] [address] [place] Creatinine [Mass/Vol]0.78 mg/dLNormal0.60-1.20The [facility] Comment on above:Performed By: #### SCAN CBC, CMP ####[address] [place] [address] USACreatinine Clr Calc Allkodju76.72 NormalThe Formerly [facility] Physician GroupComment on above:Result Comment: PERFORMED BY:[address]LucilaCOLUMBUS, [place] [phone] MEDICAL DIRECTORALTHEA MEADOWS M.D.Performed By: #### SCAN CBC, CMP ####[address] [place] [address] USAGFR/1.73 sq M.predicted MDRD (S/P/Bld) [Vol rate/Area]mL/min/{1.73_m2} NormalThe Former[facility] Physician [facility] SystemComment on above:Performed By: #### SCAN CBC, CMP ####[address] [address] [place] Globulin (S) [Mass/Vol]2.4 g/dLNormalThe Former[facility] Physician GroupComment on above:Performed By: #### SCAN CBC, CMP ####[address] [address] USAGlucose [Mass/Vol]108 mg/gGUtrm60-269Xyj Former[facility] Physician GroupComment on above:Result Comment: Random Glucose Reference Range is dependent on time and content of last meal. Glucose of more than 200 mg/dL in a nonstressed, ambulatory subject supports the diagnosis of Diabetes Mellitus. ADA recommended reference rangePerformed By: #### SCAN CBC, CMP ####[place] [address] [place] Potassium [Moles/Vol]4.2 mmol/LNormal3.5-5.1The Former[facility] Physician GroupComment on above:Performed By: #### SCAN CBC, CMP ####[place] [address] USAProtein [Mass/Vol]6.2 g/dLLow6.4-8.9 The Former[facility] Physician GroupComment on above:Performed By: #### SCAN CBC, CMP ####[place] [address] USASodium [Moles/Vol]137 mmol/DHinjvm868-021Qeo Former[facility] Physician GroupComment on above: Performed By: #### SCAN CBC, CMP ####[place] [address] USAUrea nitrogen [Mass/Vol]23 mg/dLNormal7-25The [facility] Physician GroupComment on above:Performed By: #### SCAN CBC, CMP ####[place] [address] USAScan and CBCon 68-47-3717Yvhbxzzuw (Bld) [#/Vol]0.0 10*3/uLNormal0.0-0.2The Former[facility] Physician GroupComment on above:Performed By: #### SCAN CBC, CMP ####[id number] USABasophils/100 WBC (Bld)0.6 %Normal.The Former[facility] Physician GroupComment on above:Performed By: #### SCAN CBC, CMP ####[id number] USAEosinophils (Bld) [#/Vol]0.2 10*3/uLNormal0.0-0.45The Former[facility] Physician GroupComment on above:Performed By: #### SCAN CBC, CMP ####[id number] USAEosinophils/100 WBC (Bld)4.3 %Normal.The [facility] Physician GroupComment on above:Performed By: #### SCAN CBC, CMP ####[place] [address] USAErythrocyte distribution width (RBC) [Ratio]14.6 %Iyxggi19.9-15.3The [facility] Physician GroupComment on above:Performed By: #### SCAN CBC, CMP ####[place] [address] [place] Hematocrit (Bld) [Volume fraction]35.0 %Nzzglo01.0-46.4The Former[facility] Physician GroupComment on above:Performed By: #### SCAN CBC, CMP ####[place] [address] USAHemoglobin (Bld) [Mass/Vol] 12.0 g/eVTcxfwx20.8-15.4The Former[facility] Physician GroupComment on above:Performed By: #### SCAN CBC, CMP ####[place] [address] USAHypersegmented NeutrophilsSlightNormalThEastern Idaho [facility] Center Physician GroupComment on above:Performed By: #### SCAN CBC, CMP ####[place] [address] USALymphocytes (Bld) [#/Vol]1.2 10*3/uLNormal1.00-4.8The Former[facility] Physician GroupComment on above: Performed By: #### SCAN CBC, CMP ####[place] [address] USALymphocytes/100 WBC (Bld)20.6 %Normal.The Former[facility] Physician GroupComment on above:Performed By: #### SCAN CBC, CMP ####[place] [address] USAMCH (RBC) [Entitic mass]32.6 uuSimyyb53.7-34.3The [facility] Physician GroupComment on above: Performed By: #### SCAN CBC, CMP ####[place] [address] USAMCV (RBC) [Entitic vol]95.1 lJZaerln57-532Ucl [facility] Physician GroupComment on above:Performed By: #### SCAN CBC, CMP ####[id number] USAMean Corpuscular HGB Conc34.3 g/jATnmasl96.0-35.0The [facility] Physician GroupComment on above:Performed By: #### SCAN CBC, CMP ####[place] [address] USAMonocytes (Bld) [#/Vol]0.0 10*3/uLNormal 0.0-0.8The [facility] Physician GroupComment on above:Performed By: #### SCAN CBC, CMP ####[place] [address] USAMonocytes/100 WBC (Bld)0.6 %Normal.The [facility] Physician GroupComment on above:Performed By: #### SCAN CBC, CMP ####[place] [address] USANeutrophils (Bld) [#/Vol]4.2 10*3/uLNormal 1.8-7.7The [facility] Physician GroupComment on above:Performed By: #### SCAN CBC, CMP ####[id number] USANeutrophils/100 WBC (Bld)73.9 %Normal.The [facility] Physician GroupComment on above:Performed By: #### SCAN CBC, CMP ####[id number] USANRBC%0.2 /100{WBC}Normal0-0.5The [facility] Physician GroupComment on above:Performed By: #### SCAN CBC, CMP ####[id number] USAPlatelet Estimate NormalNormalNormalThe Former[facility] Physician GroupComment on above:Performed By: #### SCAN CBC, CMP ####[place] [address] USAPlatelet mean volume (Bld) [Entitic vol]7.9 fLNormal6.3-10.7The Former[facility] Physician GroupComment on above:Performed By: #### SCAN CBC, CMP ####[address] [address] [place] Platelet MorphologyNormalNormalNormSanta Rosa Medical Center Physician [facility] Care SystemComment on above:Result Comment: PERFORMED BY:[address] [place], [place] [phone] MEDICAL DIRECTORALTHEA JIMENEZ M.D.Performed By: #### SCAN CBC, CMP ####[id number] USAPlatelets (Bld) [#/Vol]254 10*3/uL Wtnjfm804-201Sjd [facility] Physician [facility] SystemComment on above:Performed By: #### SCAN CBC, CMP ####[id number] USARBC (Bld) [#/Vol]3.68 10*6/uLNormal3.60-5.00The [facility] Physician [facility] SystemComment on above:Performed By: #### SCAN CBC, CMP ####[id number] USARBC morphology finding Nom (Bld)NormalNormalNormSanta Rosa Medical Center Physician [facility] Care SystemComment on above:Performed By: #### SCAN CBC, CMP ####[id number] USAWBC (Bld) [#/Vol]5.7 10*3/uLNormal3.8-11.6The [facility] Physician [facility] SystemComment on above:Performed By: #### SCAN CBC, CMP ####[id number] USAWhole blood hypersegmented neutrophils detection by light microscopyOrdered By: Kush Glez on 60-22-2751Vgfmpkkicoo.hypersegmented LM Ql (Bld)Whole blood hypersegmented neutrophils detection by light microscopySelect Medical Cleveland Clinic Rehabilitation Hospital, AvonNeutrophils.hypersegmented LM Ql (Bld)[facility]Main OR Intraoperative Recordon [id number] OR Intraoperative RecordMain OR Intraoperative Record IntraOp Document Type FT Summary Primary Physician: Roshan BRAUN MD Finalized Date/Time: 07/23/24 10:46:11 Pt. Name: ADELINA MIR Yrn De La OB./Sex: 1960 Female Med Rec #: [id number] Physician: Roshan BRAUN MD Financial #: [id number] Pt. Type: A Room/Bed: [address] [address] Admit/Disch: 07/22/24 05:34:52 - 07/22/24 11:05:00 Institution: Case Times FT Entry 1 Patient Times In Room 07/22/24 07:48:00 Out Room 07/22/24 08:53:00 Procedure Times Start 07/22/24 08:07:00 Stop 07/22/24 08:49:00 Anesthesia Times Start 07/22/24 07:48:00 Stop 07/22/24 08:53:00 Last Modified By: Josseline Castro RN 07/22/24 08:53:39 General Comments: 07/23/24 Chart opened to review and send charges LRoth CSFA Case Attendance FT Entry 1 Entry 2 Entry 3 Case Attendee Phan Olivas MD, Jack Carvajal CST Role Performed Anesthesiologist Surgeon - Primary ASSISTANT DIRECTOR OF RESIDENCE LIFE/SA Adult Neurologist Time In 07/22/24 07:48:00 07/22/24 07:48:00 07/22/24 07:48:00 Time Out 07/22/24 08:53:00 07/22/24 08:53:00 07/22/24 08:53:00 Procedure INFUSAPORT INFUSAPORT INFUSAPORT INSERTION(Right) INSERTION(Right) INSERTION(Right) Comments DR ECHOLS SUPERVISING Last Modified By: Matthew VILLALOBOS, Josseline Castro RN, Josseline Holly RN 07/22/24 08:53:40 07/22/24 08:53:40 07/22/24 08:53:40 Entry 4 Entry 5 Entry 6 Case Attendee Matthew VILLALOBOS, Laura Peña Amy Role Performed Front Desk Person - Primary Scrub - Primary [employer] Head Former Time In 07/22/24 07:48:00 07/22/24 07:48:00 07/22/24 08:00:00 Time Out 07/22/24 08:39:00 07/22/24 08:53:00 07/22/24 08:36:00 Procedure INFUSAPORT INFUSAPORT INFUSAPORT INSERTION(Right) INSERTION(Right) INSERTION(Right) Comments PRECEPTOR Last Modified By: Josseline Castro RN, RN, Josseline Castro RN, Josseline Pool 07/22/24 08:53:40 07/22/24 08:53:40 07/22/24 08:53:40 Entry 7 Entry 8 Case Attendee Nilton Harrison, Jah Hansen Role Performed [employer] Head Former Front Desk Person - Relief Time In 07/22/24 08:00:00 07/22/24 08:39:00 Time Out 07/22/24 08:36:00 07/22/24 08:53:00 Procedure INFUSAPORT INFUSAPORT INSERTION(Right) INSERTION(Right) Comments ORIENTATION Last Modified By: Matthew VILLALOBOS, Josseline Castro RN, Josseline Pool 07/22/24 08:53:40 07/22/24 08:53:40 Perioperative Protocols FT Pre-Care Text: Implements protective measures prior to operative or invasive procedure, confirms identity before the operative or invasive procedure, verifies operative procedure, surgical site, and laterality Entry 1 Procedure(s) INFUSAPORT Patient Identity Birthday, ID Band INSERTION(Right) Verified (select at Check, Patient least 2): Participation Consents / H and P Anesthesia Consent, Operative Site Present Verified H&P, Surgery/Procedure Marking Verified Consent Surgical Site Yes Laterality Verified Yes Verified Procedure Verified Yes Correct Patient Yes Position Verified Availability Equipment, Implant, Prep Dry n/a Verified (If Medication, X-ray Applicable) PreOp Antibiotic Yes Time Out Phan Olivas, Given Participants APARNA PRATT, Anna Orr CST, Matthew Royal RN, Maryann Urbina Madison A, Ott, Amy, Bomar Radiology Student, Jah Hansen Time Out Complete 07/22/24 08:07:00 Outcomes Met? Yes Last Modified By: Josseline Castro RN 07/22/24 08:10:58 Post-Care Text: The patient is free from signs and symptoms of injury caused by extraneous objects Allergy Information FT Pre-Care Text: Verifies allergies Entry 1 Allergies Reviewed? Yes Allergies Reviewed Self/Patient With Outcomes Met? Yes Last Modified By: Josseline Castro RN 07/22/24 08:11:06 Post-Care Text: The patient received appropriate medication(s) safely administered during the perioperative period Surgical Procedures FT Entry 1 Procedure Description Procedure INFUSAPORT INSERTION Modifiers Right Surgeon Description RIGHT INFUSAPORT INSERTION Primary Procedure Yes Primary Surgeon Roshan BRAUN MD Start 07/22/24 08:07:00 Stop 07/22/24 08:49:00 Anesthesia Type General Surgical Service General Wound Class 1 - Clean Last Modified By: Josseline Castro RN 07/22/24 08:53:43 General Case Data FT Pre-Care Text: Classifies surgical wound, implements aseptic technique, initiates traffic control Entry 1 Case Information OR OR 2 FT Case Level Level 2 Wound Class 1 - Clean Specialty General ASA Class 3 Preop Diagnosis BREAST CANCER LEFT Postop Same As Preop Yes BREAST Postop Diagnosis BREAST CANCER LEFT Outcomes Met? Yes BREAST Last Modified By: Josselnie Castro RN 07/22/24 08:11:38 Post-Care Text: The patient is free from signs and symptoms of infection Skin Assessment (Pre Procedure) FT Pre-Care Text: Implements protective measures to prevent skin/ tissue injury due to thermal or mechanical sources Evaluates for signs and symptoms of physical injury to skin and tissue Entry 1 Skin Integrity Intact, [place], Warm, & Skin (more content not included)...Normal [facility] w/ Auto Diffon [id number]/100 WBC (Bld) 0.4 %Normal0.0-2.0[facility]. Finan CenterComment on above:Performed By: #### [id number] #### [facility] [address] [place], [place] [address]Ahwlzgggz/Leukocytes Auto (Bld) [Pure # fraction]0.0 E9/LNormal 0.0-0.2[facility]. Finan CenterComment on above:Performed By: #### [id number] #### [facility] [address], [place] [address]Knbiymuutfu (Bld) [#/Vol]0.5 E9/LNormal0.0-0.5FOhioHealth Berger HospitalComment on above:Performed By: #### [id number] #### [facility] [address] [place] [address] 27654Amczjzznhuw/100 WBC (Bld)5.1 %Normal0.0-8.0[facility] HospitalComment on above:Performed By: #### [id number] #### [facility] [address] [place] [address] 28809Ddqhupmssbq distribution width (RBC) [Ratio]14.4 %High10.9-14.2 [facility] HospitalComment on above:Performed By: #### [id number] #### [facility] [address] [place] [address] 67400Ekhefqhuyt (Bld) [Volume fraction]35.6 %Tdhgwf42.0-46.0[facility] HospitalComment on above:Performed By: #### [id number] #### [facility] [address] [place] [address] 41954Ivzhmvdbdd (Bld) [Mass/Vol]12.4 g/vQTgigch24.0-16.0[facility] HospitalComment on above:Performed By: #### [id number] #### [facility] [address] [place] [address] 534[address]Noexcuzghjg (Bld) [#/Vol]2.7 E9/LNormal1.0-4.0[facility] HospitalComment on above:Performed By: #### [id number] #### [facility] [address] [place] [address] 55362Eaysziwycsu/100 WBC (Bld)26.4 %Tjizzw36.0-50.0[facility] HospitalComment on above:Performed By: #### [id number] #### [facility] [address] [place] [address] 70262CIH (RBC) [Entitic mass]33.0 bkQnmavy69.0-34.0[facility] HospitalComment on above:Performed By: #### [id number] #### [facility] [address] [place] [address] 20868BHJF (RBC) [Mass/Vol]34.7 g/dCAqtioo06.4-36.0[facility] HospitalComment on above:Performed By: #### [id number] #### [facility] [address] [place] [address] 12380UXX (RBC) [Entitic vol]95.0 iSGjxjpa51.0-100.0[facility] HospitalComment on above:Performed By: #### [id number] #### [facility] [address] [place] [address] 84675Vnehsykhm (Bld) [#/Vol]1.1 E9/LHigh0.2-1.0[facility] HospitalComment on above:Performed By: #### [id number] #### [facility] [address] [place] [address] 712[address]Cafzuotgfvy (Bld) [#/Vol]5.8 E9/LNormal2.0-7.5FOhioHealth Berger HospitalComment on above:Performed By: #### [id number] #### [facility] [address] [place] [address] 24049Bsonzfponnd/100 WBC (Bld)57.0 %Dzmmzv37.0-75.0[facility] HospitalComment on above:Performed By: #### [id number] #### [facility] [address] [place] [address] 81247Gtslhcqs654.0 E9/PJdrura891.0-500.0[facility] Comment on above:Performed By: #### [id number] #### [facility] [address] [place] [address] 36463Xdifvyxj mean volume (Bld) [Entitic vol]7.4 fLNormal6.4-10.8 [facility] HospitalComment on above:Performed By: #### [id number] #### [facility] [address], [place] [address]JYS (Bld) [#/Vol]3.8 E12/LLow4.3-5.9[facility] Comment on above:Performed By: #### [id number] #### [facility] [address], [place] [address]BOU corrected for nucl RBC Auto (Bld) [#/Vol]10.2 E9/LNormal 4.0-11.0[facility] HospitalComment on above:Performed By: #### [id number] #### [facility] [address] [place] [address], [place] [address]SDKEELQTYEdjviva By: SYSTEM SYSTEM on 52-57-2236Ejjripj [Mass/Vol]3.8 g/dLNormal3.3 - 5.0 gm/dLRemisol ChemAlbumin/Globulin [Mass ratio] 1.7 {ratio}Normal1.1 - 2.2Remisol ChemALP [Catalytic activity/Vol]62 [iU]/d Bxeanv73 - 98 Int._Unit/LRemisol ChemALT No additional P-5'-P [Catalytic activity/Vol]9 [iU]/dNormal6 - 46 Int._Unit/LRemisol ChemAnion gap [Moles/Vol]12 mmol/LNormal6 - 16 mEq/LRemisol ChemAST [Catalytic activity/Vol]13 [iU]/dNormal 5 - 43 Int._Unit/LRemisol ChemBilirubin [Mass/Vol]0.4 mg/dLNormal0.0 - 1.1 mg/dL Remisol ChemCalcium [Mass/Vol]8.8 mg/dLLow8.9 - 11.1 mg/dLRemisol ChemChloride [Moles/Vol]100 mmol/PGdq577 - 111 mmol/LRemisol ChemCO2 [Moles/Vol]27 mmol/L Iphhqx17 - 31 mmol/LRemisol ChemCreatinine [Mass/Vol]1.3 mg/dLNormal0.5 - 1.3 mg/dLRemisol MxpxvFLB11 mL/min/1.73 m2Low>=59mL/min/1.73 w5Wospzgg ChemGlobulin (S) [Mass/Vol]2.3 g/dLNormal1.4 - 4.0 gm/dLRemisol ChemGlucose [Mass/Vol]105 mg/hROutrlk31 - 199 mg/dLRemisol ChemPotassium [Moles/Vol]3.7 mmol/LNormal3.5 - 5.3 mmol/LRemisol ChemProtein [Mass/Vol]6.1 g/dLNormal6.0 - 7.8 gm/dLRemisol ChemSodium [Moles/Vol]135 mmol/NXptmyr778 - 145 mmol/LRemisol ChemUrea nitrogen [Mass/Vol]27 mg/dLHigh5 - 21 mg/dLRemisol ChemUrea nitrogen/Creatinine [Mass ratio]21 mg/ewRyoo16 - 20Remisol ChemCMPon [id number] [Mass/Vol]3.8 g/dL Normal3.3-5.0[facility] HospitalComment on above:Performed By: #### [id number] #### [facility] [address] [place], [place] [address]Mxpptzh/Globulin (S) [Mass conc ratio]1.3Nbqceg6.1-2.2FOhioHealth Berger HospitalComment on above:Performed By: #### [id number] #### [facility] [address], [place] [address]GQS [Catalytic activity/Vol]62 Int._Unit/AFnhzzj55-39EqdlmbMercy Memorial HospitalComment on above:Performed By: #### [id number] #### [facility] [address], [place] [address]GKN No additional P-5'-P [Catalytic activity/Vol]9 Int._Unit/L Normal6-46[facility] HospitalComment on above:Performed By: #### [id number] #### [facility] [address] [place] [address], [place] [address]Aqlsq gap [Moles/Vol]12 mmol/LNormal6-16[facility] HospitalComment on above:Performed By: #### [id number] #### [facility] [address], [place] [address]VML [Catalytic activity/Vol]13 Int._Unit/LNormal5-43[facility] HospitalComment on above:Performed By: #### [id number] #### [facility] [address] [place] [address], [place] [address]Keyyhghxe [Mass/Vol]0.4 mg/dLNormal0.0-1.1[facility]. Finan CenterComment on above:Performed By: #### [id number] #### [facility] [address], [place] [address]Qrasmll [Mass/Vol]8.8 mg/dLLow8.9-11.1FOhioHealth Berger HospitalComment on above:Performed By: #### [id number] #### [facility] [address], [place] [address]Curpmhby [Moles/Vol]100 mmol/YVeg615-886PapaibMercy Memorial HospitalComment on above:Performed By: #### [id number] #### [facility] [address] [place] [address], [place] [address]RI5 [Moles/Vol]27 mmol/WXkufyo39-44YbbqtrMercy Memorial Hospital Comment on above:Performed By: #### [id number] #### [facility] [address], [place] [address]Xbpspqstvq [Mass/Vol]1.3 mg/dLNormal0.5-1.3[facility]. Finan CenterComment on above:Performed By: #### [id number] #### [facility] [address] [place] [address], [place] [address]Gqnzfjqf (S) [Mass/Vol]2.3 g/dLNormal1.4-4.0[facility] HospitalComment on above:Performed By: #### [id number] #### [facility] [address] [place] [address], [place] [address]Svmoked [Mass/Vol]105 mg/gVUrtngc31-444XfbwgiMercy Memorial HospitalComment on above:Performed By: #### [id number] #### [facility] [address], [place] [address]Qywioazjy [Moles/Vol]3.7 mmol/LNormal3.5-5.3FOhioHealth Berger HospitalComment on above:Performed By: #### [id number] #### [facility] [address] [place] [address], [place] [address]Ozgprxn [Mass/Vol]6.1 g/dLNormal6.0-7.8[facility] HospitalComment on above:Performed By: #### [id number] #### [facility] [address] [place], [place] [address]Mzqsyc [Moles/Vol]135 mmol/VKtzjom396-739LqaysvMercy Memorial HospitalComment on above:Performed By: #### [id number] #### [facility] [address] [place], [place] [address]Pfak nitrogen [Mass/Vol]27 mg/dLHigh5-21[facility] HospitalComment on above:Performed By: #### [id number] #### [facility] [address], [place] [address]Rsas nitrogen/Creatinine [Mass ratio]21 No WhflwZcqg58-53OedkzlMercy Memorial HospitalComment on above:Performed By: #### [id number] #### [facility] [address] [place] [address], [place] [address]Bofoollri Instructionson [id number] Instructions Discharge Instructions ADELINA MIR :1960 Visit Date:07/22/2024 Inpatient Discharge Instructions Your Care Team Admitting Physician - Roshan BRAUN MD Referring Physician - Roshan BRAUN MD Reason for Your Visit BREAST CANCER Your Diagnosis Acute postoperative pain Poor venous access Tests Performed XR Chest Single View -- Results Pending -- XR Fluoroscopy Up to 1 Hour -- Results Pending -- Please visit your patient portal for your results or contact your primary care physician. This Is Your Medications List Non-Formulary Medication (Misc Medication) acetaminophen-oxycodone (Percocet 5 mg-325 mg oral tablet) alprazolam (alprazolam 0.25 mg Tab) aspirin (aspirin 81 mg Oral EC Tab) cyclobenzaprine (cyclobenzaprine 10 mg Tab) gabapentin (gabapentin 300 mg Cap) hydrochlorothiazide-losartan (Hyzaar 12.5 mg-50 mg Tab) Procedure History Mastectomy (05/16/2024), Excision of intradermal nevus (02/20/2024), Excision of breast mass (01/10/2024), Biopsy of breast (06/27/2023), Arthroscopy of knee (06/04/1995), Appendectomy, Breast reconstruction, Cholecystectomy, Extraction of wisdom tooth, Foot, Removal of breast implant, Simple dental extraction, DEAN BSO - Total abdominal hysterectomy and bilateral salpingo-oophorectomy, Tonsillectomy and adenoidectomy. What to do next Instructions From Your Doctor Event Name Event Result Discharge Instructions Freetext may shower tomorrow, remove dressings and leave open to air; no tub baths for 10days; no driving while taking the Percocet; no strenuous activities for 2 weeks; take ibuprofen scheduled with food forfirst week after surgery. Discharge Activity Arrange for a responsible adult supervision for 24 hours, Expect mild pain Discharge Restrictions No driving for 24 hrs, Do not operate machinery or tools, Do not make important decisions for 24 hours, Do not drink alcoholic beverages for 24 hours Discharge Diet(s) Regular Call Your Doctor For Persistent or heavy bleeding, Temperature above 101.5 degrees, Redness, swelling, or pus at operative site, Severe pain at the operative site, Persistent vomiting Wound Care Keep incision dry, Remove dressing as instructed Remove Dressing On 1 Discharge Instructions Discharge Instructions New Follow Up Appointments after Discharge Follow Up with Roshan BRAUN When: Within 7 to 10 days Where: Sarah [facility]aguirre, [facility] [[email or web address] [address] [address]- Business (1) Medications What How Much When Why Instructions Next Dose New acetaminophen-oxycodone (Percocet 5 mg-325 mg oral tablet) 1 Tablets By Mouth Every 6 hours Acute postoperative pain take with food or milk not to exceed 4000 mg acetaminophen per day Pickup at [facility] Unchanged alprazolam (alprazolam 0.25 mg Tab) See instructions 1 tab tid prn Unchanged aspirin (aspirin 81 mg Oral EC Tab) 1 Tablets By Mouth Every day Unchanged cyclobenzaprine (cyclobenzaprine 10 mg Tab) 1 Tablets By Mouth At bedtime as needed for for spasm Unchanged gabapentin (gabapentin 300 mg Cap) 1 Capsules By Mouth 3 times a day Unchanged hydrochlorothiazide-losartan (Hyzaar 12.5 mg-50 mg Tab) 1 Tablets By Mouth Every day Unchanged Non-Formulary Medication (Misc Medication) See instructions balance of nature-3 tabs a day Pharmacy Information [facility]: [address], [place] [id number] [phone] Allergies Entex (Unknown) Skelaxin (Unknown) corticosteroids (Anaphylaxis) Devices Implanted/Removed This Visit Notice: You have devices implanted this visit that may not be MRI compatible. Implanted INFUSAPORT INSERTION Chest SMART PORT CT POWER PORT 9.6FR X 66CM ([id number]) 07/22/2024, MR Lita - SHEILA: +[id number] Education Materials Implanted Port Insertion, Care After The following information offers guidance on how to care for yourself after your procedure. Your health care provider may also give you more specific instructions. If you have problems or questions, contact your health care provider. What can I expect after the procedure? After the procedure, it is common to have: ??? Discomfort at the port insertion site. ??? Bruising on the skin over the port. This should improve over 3???4 days. Follow these instructions at home: Port care ??? After your port is placed, you will get a deck molder's information card. The card has informationabout your port. Keep this card with you at all times. ??? Take care of the port as told by your health care provider. Ask your health care provider if you ora family member can get training for taking care of the port at home. ? A home health care nurse will be be available to help care for the port. ??? Make sure to remember what type of port you have. Incision care ??? Follow instructions from your health care provider about how to (more content not included)...[facility] Medical CenterComment on above:Result Comment: Electronically Signed By: Kane VILLALOBOS, Tamica Matamoros.oh\Date and Time Signed: 07/22/24 09:37 ESTHEMATOLOGYOrdered By: SYSTEM SYSTEM on 07-22-2024 Basophils/100 WBC (Bld)0.4 %Normal0.0 - 2.0 %Remisol HemeBasophils/Leukocytes Auto (Bld) [Pure # fraction]0.0 E9/LNormal0.0 - 0.2 E9/LRemisol HemeEosinophils (Bld) [#/Vol]0.5 E9/LNormal0.0 - 0.5 E9/LRemisol HemeEosinophils/100 WBC (Bld) 5.1 %Normal0.0 - 8.0 %Remisol HemeErythrocyte distribution width (RBC) [Ratio] 14.4 %High10.9 - 14.2 %Remisol HemeHematocrit (Bld) [Volume fraction]35.6 % Upwsme80.0 - 46.0 %Remisol HemeHemoglobin (Bld) [Mass/Vol]12.4 g/hESequwj02.0 - 16.0 gm/dLRemisol HemeLymphocytes (Bld) [#/Vol]2.7 E9/LNormal1.0 - 4.0 E9/L Remisol HemeLymphocytes/100 WBC (Bld)26.4 %Trcjrp24.0 - 50.0 %Remisol HemeMCH (RBC) [Entitic mass]33.0 gcHefyad08.0 - 34.0 pgRemisol HemeMCHC (RBC) [Mass/Vol] 34.7 g/sMCazshs97.4 - 36.0 gm/dLRemisol HemeMCV (RBC) [Entitic vol]95.0 fLNormal 80.0 - 100.0 fLRemisol HemeMonocytes (Bld) [#/Vol]1.1 E9/LHigh0.2 - 1.0 E9/L Remisol HemeMonocytes/100 WBC (Bld)11.1 %Normal4.0 - 14.0 %Remisol Heme Neutrophils (Bld) [#/Vol]5.8 E9/LNormal2.0 - 7.5 E9/LRemisol HemeNeutrophils/100 WBC (Bld)57.0 %Sbejrx29.0 - 75.0 %Remisol ZutfUbghxnys956.0 E9/GIimotk136.0 - 500.0 E9/LRemisol HemePlatelet mean volume (Bld) [Entitic vol]7.4 fLNormal6.4 - 10.8 fLRemisol HemeRBC (Bld) [#/Vol]3.8 E12/LLow4.3 - 5.9 E12/LRemisol HemeWBC corrected for nucl RBC Auto (Bld) [#/Vol]10.2 E9/LNormal4.0 - 11.0 E9/LRemisol HemeInpatient Patient Summaryon [id number] Patient SummaryInpatient Patient Summary [address] [address] [facility] Clinical Discharge Instructions PERSON INFORMATION Name: ADELINA MIR PHYSICIANS Admitting Physician: Roshan BRAUN MD Attending Physician: Roshan BRAUN MD PCP: Michael Holley MD Discharge Diagnosis: Poor venous access Comment: PATIENT EDUCATION INFORMATION Instructions: Medication Leaflets: Follow up: With: Address: When: Roshan BRAUN [address] [facility], [address], [address] [address] Business (1) Within 7 to 10 days Type Location Start Finish State Open [facility] 08/06/2024 1:15 PM 08/06/2024 1:30 PM Confirmed Medicare Wellness Subsequent [facility] 06/16/2025 1:00 PM 06/16/2025 2:00 PM Confirmed MEDICATION LIST New Medications [facility], [address], [place] [id number], [phone] acetaminophen-oxycodone (Percocet 5 mg-325 mg oral tablet) 1 Tablets By Mouth every 6 hours. take with food or milk not to exceed 4000 mg acetaminophen per day. Refills: 0. Medications to Continue with No Changes Other Medications alprazolam (alprazolam 0.25 mg Tab) 1 tab tid prn. Refills: 0. aspirin (aspirin 81 mg Oral EC Tab) 1 Tablets By Mouth every day. cyclobenzaprine (cyclobenzaprine 10 mg Tab) 1 Tablets By Mouth at bedtime as needed for spasm. Refills: 3. gabapentin (gabapentin 300 mg Cap) 1 Capsules By Mouth 3 times a day. Refills: 0. hydrochlorothiazide-losartan (Hyzaar 12.5 mg-50 mg Tab) 1 Tablets By Mouth every day. Refills: 3. Non-Formulary Medication (Misc Medication) balance of nature-3 tabs a day. Comment:[facility] CenterMain OR PACU I Recordon [id number] OR PACU I RecordMain OR PACU I Record PACU Phase I Document Type FT Summary Primary Physician: Roshan BRAUN MD Finalized Date/Time: 07/22/24 09:41:35 Pt. Name: VINICIUS MIRCOMPA Cain./Sex: 1960 Female Med Rec #: [id number] Physician: Roshan BRAUN MD Financial #: [id number] Pt. Type: A Room/Bed: [place] [address] Admit/Disch: 07/22/24 05:34:52 - Institution: Case Times PACU I FT Pre-Care Text: Identifies barriers to communication and implements measures to provide psychological support Develops individualized plan of care, and ensures continuity of care Maintains patient's dignity and privacy, and maintains patient confidentiality Identifies and reports philosophical, cultural, and spiritual beliefs and values Identifies individual values and wishes concerning care Implements aseptic technique, and administers prescribed antibiotic therapy and immunizing agents as ordered Evaluates postoperative tissue perfusion Implements thermoregulation measures, and monitors body temperature Evaluates postoperative respiratory status Evaluates postoperative cardiac status Evaluates postoperative neurological status Assesses pain control, collaborated in initiating patient-controlled analgesia and implements alternative methods of pain control Verifies allergies, administers prescribed medications and solutions, evaluates response to medications Entry 1 In PACU I 07/22/24 08:54:00 Discharge from PACU 07/22/24 09:24:00 I Outcomes Met? Yes Last Modified By: Annabella Luna RN 07/22/24 09:41:14 Post-Care Text: The patient demonstrates knowledge of the expected response to the operative or invasive procedure The patient's care is consistent with the individualized perioperative plan of care The patient's rightto privacy is maintained The patient's value system, lifestyle, ethnicity, and culture are considered, respected, and incorporated into the perioperative plan of care The patient participates in decisions affecting his or her perioperative plan of care The patient is free from signs and symptoms of infection The patient has wound/tissue perfusion consistent with or improved from baseline levels established preoperatively The patient is at or returning to normothermia at the conclusion of the immediate postoperative period The patient's respiratory function is consistent with or improved from baseline levels established preoperativelyThe patient's cardiovascular status is consistent with or improved from baseline levels established preoperatively The patient's cardiovascular status is consistent with or improved from baseline levels established preoperatively The patient demonstrates and/or reports adequate pain control throughout the perioperative period The patient received appropriate medication(s), safely administered during the perioperativeperiod Acuity Level PACU I FT Entry 1 Start Time 07/22/24 08:54:00 Stop Time 07/22/24 09:24:00 Acuity Level Acuity Level I Last Modified By: Annabella Luna RN 07/22/24 09:41:31 Finalized By: Annabella Luna RN Document Signatures Signed By: Annabella Luna RN 07/22/24 09:41[facility] CenterMain OR PACU II Recordon [id number] OR PACU II RecordMain OR PACU II Record PACU Phase II Document Type FT Summary Primary Physician: Roshan BRAUN MD Finalized Date/Time: 07/22/24 11:07:12 Pt. Name: ADELINA MIR/Sex: 1960 Female Med Rec #: [id number] Physician: Roshan BRAUN MD Financial #: [id number] Pt. Type: A Room/Bed: [facility] Admit/Disch: 07/22/24 05:34:52 - Institution: Case Times PACU II FT Pre-Care Text: Identifies barriers to communication and implements measures to provide psychological support and determines knowledge level Develops individualized plan of care, and ensures continuity of care Maintains patient's dignity and privacy, and maintains patient confidentiality Identifies and reports philosophical, cultural, and spiritual beliefs and values Identifies individual values and wishes concerning care administers prescribed antibiotic therapy and immunizing agents as ordered, Evaluates postoperative tissue perfusion Implements thermoregulation measures, and monitors body temperature Evaluates postoperative respiratory statusEvaluates postoperative cardiac status Evaluates postoperative neurological status Assesses pain control, collaborated in initiating patient-controlled analgesia and implements alternative methods of pain control Verifies allergies, administers prescribed medications and solutions, evaluates response to medications Entry 1 In PACU II 07/22/24 09:25:00 Discharge from PACU 07/22/24 11:05:00 II Outcomes Met? Yes Last Modified By: Tamica Middleton RN 07/22/24 11:07:10 Post-Care Text: The patient demonstrates knowledge of the expected response to the operative or invasive procedure The patient's care is consistent with the individualized perioperative plan of care The patient's rightto privacy is maintained The patient's value system, lifestyle, ethnicity, and culture are considered, respected, and incorporated into the perioperative plan of care The patient participates in decisions affecting his or her perioperative plan of care. The patient is free from signs and symptoms of infection The patient has wound/tissue perfusion consistent with or improved from baseline levels established preoperatively The patient is at or returning to normothermia at the conclusion of the immediate postoperative period The patient's respiratory function is consistent with or improved from baseline levels established preoperativelyThe patient's cardiovascular status is consistent with or improved from baseline levels established preoperatively The patient's neurological status is consistent with or improved from baseline levels established preoperatively The patient demonstrates and/or reports adequate pain control throughout the perioperative period The patient received appropriate medication(s), safely administered during the perioperativeperiod Finalized By: Tamica Middleton RN Document Signatures Signed By: Tamica Middleton RN 07/22/24 11:07[facility]Main [facility] Preoperative Recordon [id number] OR Preoperative RecordMain OR Preoperative Record PreOp Document Type FT Summary Primary Physician: Roshan BRAUN MD Finalized Date/Time: 07/22/24 08:26:54 Pt. Name: ADELINA MIR/Sex: 1960 Female Med Rec #: [id number] Physician: Roshan BRAUN MD Financial #: [id number] Pt. Type: A Room/Bed: [place] [address] Admit/Disch: 07/22/24 05:34:52 - Institution: Case Times PreOp FT Pre-Care Text: Verifies consent for planned procedure, identifies individual values and wishes concerning care, includes family members in perioperative teaching Entry 1 Patient Times. In Pre Surgery 07/22/24 06:00:00 Out Pre Surgery 07/22/24 07:46:00 Outcomes Met? Yes Last Modified By: Josseline Castro RN 07/22/24 08:26:53 Post-Care Text: The patient participates in decisions affecting his or her perioperative plan of care Finalized By: Josseline Castro RN Document Signatures Signed By: Josseline Castro RN 07/22/24 08:26[facility] CenterOperative Report on [id number] ReportOperative Report SURGERY DATE: 07/22/2024 PREOPERATIVE DIAGNOSIS: Breast cancer, poor venous access POSTOPERATIVE DIAGNOSIS: Breast cancer, poor venous access OPERATION: Right external jugular Bvwgyn-L-Leag insertion ANESTHESIA: General with laryngeal mask airway as well as local with 0.5% Marcaine plain ESTIMATED BLOOD LOSS: Less than 10 mL INDICATIONS AND CONSENT: The patient is a 63-year-old female diagnosed with breast cancer and requires secure central access for chemotherapy. Indications, risks, benefits, and alternatives of proceeding with Port-A-Cath insertion were explained extensively to the patient including risks of bleeding, infection, scarring, pain, pneumothorax, catheter fracture, blood clot, pulmonary embolus,, heartattack, anesthetic complications, need for further surgery or catheter removal. All of her questions were answered and informed consent was obtained. PROCEDURE: The patient was brought to the Operating Room and placed in a supine position. General anesthesia was induced. She was prepped and draped in the usual sterile fashion. She was placed in the Trendelenburg position. Incision was made in the right neck crease perpendicular to the long axis of the right external jugular vein and was carried down through the platysma using electrocautery and sharp dissection. The external jugular was dissected free and isolated between two 2-0 Vicryl ties. The cephalad tie was tied down. A venotomy was then made with a #11 blade. A pre-flushed catheter was then inserted under direct visualization and was advanced until it was in good position at the distal superior vena cava at the level of the adi. Distal tie was then tied down over the catheterand the external jugular. Catheter aspirated blood easily and was flushed with saline. Attention was then turned to the chest wall where an incision was made in the area of the skin crease below the clavicle to the right of the sternum. A pocket was created above the pectoralis fascia using electrocautery. The catheter was then tunneled from the neck incision to the chest wall incision. It was trimmed and attached to the pre-flushed port. The port aspirated blood easily and was flushed with hepa rinized saline. The position of the catheter was checked once again, and it was noted to be in goodposition in the distal superior vena cava with no kinking or twisting along its course. The patienthad no active bleeding during the procedure. The port was then secured to the pectoralis fascia using interrupted 2-0 Prolene suture. Incisions were then closed in layers with interrupted 3-0 Monocryl subcutaneous sutures and 4-0 Monocryl subcuticular sutures. Skin glue was applied as well as sterile pressure dressing. Sponge and needle counts were correct x2 per nursing personnel. The patient tolerated the procedure well and was sent to Recovery Room in good condition, where a portable chest x-ray is pending at the time of this dictation. Roshan Braun M.D. [facility] ca Dictated: 07/22/2024 [id number] Transcribed: 07/22/2024 cc:Michael Holley M.D.[facility] CenterComment on above:Result Comment: Electronically Signed By: Roshan BRAUN MD\.br\Date and Time Signed: 07/22/24 15:18 ESTOutpatient Surgery Discharge Instructionon 07-22-2024 Outpatient Surgery Discharge InstructionOutpatient Surgery Discharge Instruction [place] [id number] Patient Discharge Instructions PERSON INFORMATION Name: ADELINA MIR Date of : 1960 Current Date: 07/22/2024 09:04:43 PHYSICIANS Admitting Physician: Roshan BRAUN MD Discharge Diagnosis: Poor venous access ADELINA MIR has been given the following list of follow-up instructions, prescriptions, and patient education materials: PATIENT FOLLOW-UP INFORMATION Diet: Regular Discharge Activity: Arrange for a responsible adult supervision for 24 hours, Expect mild pain Discharge Restrictions: No driving for 24 hrs, Do not operate machinery or tools, Do not make important decisions for 24 hours, Do not drink alcoholic beverages for 24 hours Call Your Doctor For: Persistent or heavy bleeding, Temperature above 101.5 degrees, Redness, swelling, or pus at operative site, Severe pain at the operative site, Persistent vomiting Wound Care Instructions: Keep incision dry, Remove dressing as instructed Remove Your Dressing In 1 Days Additional Instructions: may shower tomorrow, remove dressings and leave open to air; no tub baths for 10days; no driving while taking the Percocet; no strenuous activities for 2 weeks; take ibuprofen scheduled with food for first week after surgery. IF UNABLE TO CONTACT YOUR PHYSICIAN AND YOU FEEL IT IS AN EMERGENCY, GO TO THE NEAREST EMERGENCY ROOM OR CALL 911 MICHAEL Funez JUDITH J, have received the attached patient education materials/instructions and have verbalized understanding: May we do a follow up call? Yes No I was present when discharge instructions were given Patient Signature Date Clinican/Nurse Signature Date Follow up: With: Address: When: Roshan Izaguirre, [address], [address] [address] Business (1) Within 7 to 10 days Type Location Start Finish State FM Open [facility] 08/06/2024 1:15 PM 08/06/2024 1:30 PM Confirmed [facility]00 PM 06/16/2025 2:00 PM Confirmed Pharmacy Information: You may receive a survey from Dinora Johnson asking you to rate your care experience. Your feedback is important and will help us understand what we do well and how we can improve the quality of care we provide to you, your loved ones and our community. It???s an honor to serve you. Thank you for choosing [facility] HERE ARE THE MEDICATION CHANGES THAT OCCURRED DURING YOUR HOSPITAL STAY [facility], [address], [place] [id number], [phone] acetaminophen-oxycodone (Percocet 5 mg-325 mg oral tablet) 1 Tablets By Mouth every 6 hours. take with food or milk not to exceed 4000 mg acetaminophen per day. Refills: 0. Medications to Continue with No Changes Other Medications alprazolam (alprazolam 0.25 mg Tab) 1 tab tid prn. Refills: 0. aspirin (aspirin 81 mg Oral EC Tab) 1 Tablets By Mouth every day. cyclobenzaprine (cyclobenzaprine 10 mg Tab) 1 Tablets By Mouth at bedtime as needed for spasm. Refills: 3. gabapentin (gabapentin 300 mg Cap) 1 Capsules By Mouth 3 times a day. Refills: 0. hydrochlorothiazide-losartan (Hyzaar 12.5 mg-50 mg Tab) 1 Tablets By Mouth every day. Refills: 3. Non-Formulary Medication (Misc Medication) balance of nature-3 tabs a day. PATIENT EDUCATION INFORMATION Instructions: Medication Leaflets:[facility] CenterXR Chest Single Viewon [id number] Chest Single ViewExam Date/Time: 07/22/2024 09:11 EST Reason for Exam: In PACU. Post-op Infusa Port Insertion.;Other (please specify) Report IMPRESSION: Interval placement of right-sided port catheter. EXAMINATION/TECHNIQUE: XR Chest Single View HISTORY: Port insertion. COMPARISON: 04/29/2024. RESULT: Interval placement of right-sided port catheter, looping in the neck in the right supraclavicular region with the tip in the mid to distal SVC region. No consolidation. No large pleural effusion. No pneumothorax. Stable cardiomediastinal silhouette. Aortic vascular calcifications. No acute osseous findings. Ordering Provider: Roshan BRAUN FINAL REPORT Dictated: 07/22/2024 9:35 am Osmin Bach MD Signed (Electronic Signature): 07/22/2024 9:35 am Signed by: Osmin Bach MD Transcribed by: ROSMERY Technologist: MARIBEL Technical Comments Radiation Dose: Ka,r in mGy = na DAP = naNormalMercy Memorial HospitaleGFRon [id number] mL/min/1.73 m2 Low>=59[facility] HospitalComment on above:Performed By: #### [id number] ####[facility] [address] [place], [place] [address]VMFea 80-86-8272Hncoa gap [Moles/Vol]12 mmol/LNormal6-16[facility] Comment on above:Performed By: #### [id number] #### [facility] [address] [place], [place] [address]Pphmoan [Mass/Vol]8.9 mg/dLNormal8.9-11.1FOhioHealth Berger HospitalComment on above:Performed By: #### [id number] #### [facility] [address] [place] [address], [place] [address]Fgcttyyq [Moles/Vol]101 mmol/DPrakkm829-879BwlrlvMercy Memorial HospitalComment on above:Performed By: #### [id number] #### [facility] [address] [place], [place] [address]VU0 [Moles/Vol]27 mmol/QZdyitm32-83IzncxbMercy Memorial Hospital Comment on above:Performed By: #### [id number] #### [facility] [address] [place], [place] [address]Niiixdqrvw [Mass/Vol]0.8 mg/dLNormal0.5-1.3FOhioHealth Berger HospitalComment on above:Performed By: #### [id number] #### [facility] [address] [place] [address]Ulhmtes [Mass/Vol]87 mg/fHJksynt00-740LnfhacMercy Memorial HospitalComment on above:Performed By: #### [id number] #### [facility] [address] [place] [address]Hxksynrqg [Moles/Vol]3.7 mmol/LNormal3.5-5.3FOhioHealth Berger HospitalComment on above:Performed By: #### [id number] #### [facility] [address] [place] [address]Crxwqe [Moles/Vol]136 mmol/XHmieel206-151RqsyjpMercy Memorial HospitalComment on above:Performed By: #### [id number] #### [facility] [address] [place] [address]Fcft nitrogen [Mass/Vol]17 mg/dLNormal5-21[facility] HospitalComment on above:Performed By: #### [id number] #### [facility] [address] [place] [address]Anyh nitrogen/Creatinine [Mass ratio]21 No JtqxiGhmb32-00IwzpbrMercy Memorial HospitalComment on above:Performed By: #### [id number] #### [facility] [address] [place] [address]WMM w/ Auto Diffon 07-23-6436Ukbssfxzb/100 WBC (Bld)0.5 %Normal 0.0-2.0Mer[facility] Memorial HospitalComment on above:Performed By: #### [id number] #### [facility] [address] [place] [address]Qygygpktf/Leukocytes Auto (Bld) [Pure # fraction]0.0 E9/LNormal 0.0-0.2FOhioHealth Berger HospitalComment on above:Performed By: #### [id number] #### [facility] [address] [place] [address]Uwbnkjhnbvy (Bld) [#/Vol]0.3 E9/LNormal0.0-0.5FOhioHealth Berger HospitalComment on above:Performed By: #### [id number] #### [facility] [address] [place] [address]Orlgpdimina/100 WBC (Bld)3.9 %Normal0.0-8.0[facility] HospitalComment on above:Performed By: #### [id number] #### [facility] [address] [place] [address]Antzppmefgx distribution width (RBC) [Ratio]14.3 %High10.9-14.2 [facility] HospitalComment on above:Performed By: #### [id number] #### [facility] [address] [place] [address] 132[address]Hyibaakblz (Bld) [Volume fraction]37.6 %Plnbsn79.0-46.0[facility] HospitalComment on above:Performed By: #### [id number] #### [facility] [address] [place] [address]Crbakuqdtn (Bld) [Mass/Vol]13.0 g/kDCfgngq71.0-16.0[facility] HospitalComment on above:Performed By: #### [id number] #### [facility] [address] [place] [address]Dfcztyzvtlx (Bld) [#/Vol]2.7 E9/LNormal1.0-4.0[facility] HospitalComment on above:Performed By: #### [id number] #### [facility] [address] [place] [address]Spcwbrgcwup/100 WBC (Bld)34.8 %Vjfziz60.0-50.0[facility] HospitalComment on above:Performed By: #### [id number] #### [facility] [address] [place] [address]ION (RBC) [Entitic mass]33.2 zgHknzly10.0-34.0[facility] HospitalComment on above:Performed By: #### [id number] #### [facility] [address] [place] [address]ORTB (RBC) [Mass/Vol]34.6 g/hKBpzzpf45.4-36.0[facility] HospitalComment on above:Performed By: #### [id number] #### [facility] [address] [place] [address]SBO (RBC) [Entitic vol]95.9 kRJpvqww80.0-100.0[facility] HospitalComment on above:Performed By: #### [id number] #### [facility] [address] [place] [address]Qguhrgmrt (Bld) [#/Vol]0.6 E9/LNormal0.2-1.0[facility] HospitalComment on above:Performed By: #### [id number] #### [facility] [address] [place] [address]Ytxlykyaovj (Bld) [#/Vol]4.2 E9/LNormal2.0-7.5FOhioHealth Berger HospitalComment on above:Performed By: #### [id number] #### [facility] [address] [place] [address]Uuwjsymxtho/100 WBC (Bld)53.0 %Ceyxli81.0-75.0[facility] HospitalComment on above:Performed By: #### [id number] #### [facility] [address] [place] [address]Wroalvtb mean volume (Bld) [Entitic vol]8.1 fLNormal6.4-10.8 [facility] HospitalComment on above:Performed By: #### [id number] #### [facility] [address] [place] [address] 77[address]Piarcyvce (Bld) [#/Vol]284.0 E9/NMicyer243.0-500.0[facility] HospitalComment on above:Performed By: #### [id number] #### [facility] [address] [place], [place] [address]GIF (Bld) [#/Vol]3.9 E12/LLow4.3-5.9[facility] Comment on above:Performed By: #### [id number] #### [facility] [address] [place], [place] [address]CVB corrected for nucl RBC Auto (Bld) [#/Vol]7.9 E9/LNormal 4.0-11.0[facility] HospitalComment on above:Performed By: #### [id number] #### [facility] [address] [place], [place] [address]NMIDZBOPIWqgmsts By: SYSTEM SYSTEM on 93-50-5429Vuhqh gap [Moles/Vol]12 mmol/LNormal6 - 16 mEq/LRemisol ChemCalcium [Mass/Vol]8.9 mg/dL Normal8.9 - 11.1 mg/dLRemisol ChemChloride [Moles/Vol]101 mmol/ZZtpasv978 - 111 mmol/LRemisol ChemCO2 [Moles/Vol]27 mmol/HZduzya45 - 31 mmol/LRemisol Chem Creatinine [Mass/Vol]0.8 mg/dLNormal0.5 - 1.3 mg/dLRemisol SikwaFGL43 mL/min/1.73 o5Rcmnmk>=59mL/min/1.73 k0Epdoxqc ChemGlucose [Mass/Vol]87 mg/dL Eejjor17 - 199 mg/dLRemisol ChemPotassium [Moles/Vol]3.7 mmol/LNormal3.5 - 5.3 mmol/LRemisol ChemSodium [Moles/Vol]136 mmol/HNigxjc554 - 145 mmol/LRemisol Chem Urea nitrogen [Mass/Vol]17 mg/dLNormal5 - 21 mg/dLRemisol ChemUrea nitrogen/Creatinine [Mass ratio]21 mg/pbIcnb41 - 20Remisol ChemHEMATOLOGYOrdered By: SYSTEM SYSTEM on 68-91-4087Xrkelyihp/100 WBC (Bld)0.5 %Normal0.0 - 2.0 % Remisol HemeBasophils/Leukocytes Auto (Bld) [Pure # fraction]0.0 E9/LNormal0.0 - 0.2 E9/LRemisol HemeEosinophils (Bld) [#/Vol]0.3 E9/LNormal0.0 - 0.5 E9/LRemisol HemeEosinophils/100 WBC (Bld)3.9 %Normal0.0 - 8.0 %Remisol HemeErythrocyte distribution width (RBC) [Ratio]14.3 %High10.9 - 14.2 %Remisol HemeHematocrit (Bld) [Volume fraction]37.6 %Ebqozy23.0 - 46.0 %Remisol HemeHemoglobin (Bld) [Mass/Vol]13.0 g/dHWbrwbn39.0 - 16.0 gm/dLRemisol HemeLymphocytes (Bld) [#/Vol] 2.7 E9/LNormal1.0 - 4.0 E9/LRemisol HemeLymphocytes/100 WBC (Bld)34.8 %Normal 14.0 - 50.0 %Remisol HemeMCH (RBC) [Entitic mass]33.2 efJcbjgn59.0 - 34.0 pg Remisol HemeMCHC (RBC) [Mass/Vol]34.6 g/zARsfkip80.4 - 36.0 gm/dLRemisol HemeMCV (RBC) [Entitic vol]95.9 gXYlqcal17.0 - 100.0 fLRemisol HemeMonocytes (Bld) [#/Vol]0.6 E9/LNormal0.2 - 1.0 E9/LRemisol HemeMonocytes/100 WBC (Bld)7.8 % Normal4.0 - 14.0 %Remisol HemeNeutrophils (Bld) [#/Vol]4.2 E9/LNormal2.0 - 7.5 E9/LRemisol HemeNeutrophils/100 WBC (Bld)53.0 %Rblbbb20.0 - 75.0 %Remisol Heme Platelet mean volume (Bld) [Entitic vol]8.1 fLNormal6.4 - 10.8 fLRemisol Heme Platelets (Bld) [#/Vol]284.0 E9/STsfxrm032.0 - 500.0 E9/LRemisol HemeRBC (Bld) [#/Vol]3.9 E12/LLow4.3 - 5.9 E12/LRemisol HemeWBC corrected for nucl RBC Auto (Bld) [#/Vol]7.9 E9/LNormal4.0 - 11.0 E9/LRemisol HemeeGFRon 74-25-8586xQVK85 mL/min/1.73 w1Ibykid>=59Fisher [facility]. Finan CenterComment on above:Performed By: #### [id number] ####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 Team Attending Physician - APARNA PRATT, Roshan Horner Primary Care Physician - Kishan PRATT, Michael Barker This Is Your Medications List Contact prescribing physician if questions or concerns Non-Formulary Medication (Misc Medication) alprazolam (alprazolam 0.25 mg Tab) aspirin (aspirin 81 mg Oral EC Tab) cyclobenzaprine (cyclobenzaprine 10 mg Tab) gabapentin (gabapentin 300 mg Cap) hydrochlorothiazide-losartan (Hyzaar 12.5 mg-50 mg Tab) sulfamethoxazole-trimethoprim (sulfamethoxazole-trimethoprim 800 mg-160 mg Tab) Procedures Performed Mastectomy (05/16/2024), Excision of intradermal nevus (02/20/2024), Excision of breast mass (01/10/2024), Biopsy of breast (06/27/2023), Arthroscopy of knee (06/04/1995), Appendectomy, Breast reconstruction, Cholecystectomy, Extraction of wisdom tooth, Foot, Removal of breast implant, Simple dental extraction, DEAN BSO - Total abdominal hysterectomy and bilateral salpingo-oophorectomy, Tonsillectomy and adenoidectomy. Discharge Vitals Heart Rate (Peripheral) 72 Respiratory Rate 16 Blood Pressure 120/76 Height 170 cm Height 67 in Weight 68 kg Weight 149.6 lb BMI 23.53 What to do next Scheduled Follow-Up Appointments Monday 2:40 PM EDT With: Where: [address] [address]- Monday 1:30 PM EST With: Where: [facility] Monday 8:00 AM EST With: Where: [facility] Monday 1:15 PM EST With: Kishan PRATT, Michael Barker Where: [address] [address]- Monday 1:00 PM EDT With: Where: [address] [address]- Medications What How Much When Instructions Unchanged alprazolam (alprazolam 0.25 mg Tab) See instructions 1 tab tid prn Contact prescribing physician if questions or concerns Unchanged aspirin (aspirin 81 mg Oral EC Tab) 1 Tablets By Mouth Every day Contact prescribing physician if questions or concerns Unchanged cyclobenzaprine (cyclobenzaprine 10 mg Tab) 1 Tablets By Mouth At bedtime as needed for for spasm Contact prescribing physician if questions or concerns Unchanged gabapentin (gabapentin 300 mg Cap) 1 Capsules By Mouth 3 times a day Contact prescribing physician if questions or concerns Unchanged hydrochlorothiazide-losartan (Hyzaar 12.5 mg-50 mg Tab) 1 Tablets By Mouth Every day Contact prescribing physician if questions or concerns Unchanged Non-Formulary Medication (Misc Medication) See instructions balance of nature-3 tabs a day Contact prescribing physician if questions or concerns Unchanged sulfamethoxazole-trimethoprim (sulfamethoxazole-trimethoprim 800 mg- 160 mg Tab) Contact prescribing physician if questions or concerns Allergies Entex (Unknown) Skelaxin (Unknown) corticosteroids (Anaphylaxis) Problems Ongoing - Any problem that you are currently receiving treatment for. 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 BMI 23.0-23.9, adult Polyneuropathy RSD lower limb Patient Survey You may receive a survey via text or e-mail asking about your office visit. Please share your experience with us by completing your survey. We appreciate your feedback and thank you for choosing us for your care. Normal[facility] w/ Auto Diffon 07-02-2024 Basophils/100 WBC (Bld)0.8 %Normal0.0-2.0[facility] HospitalComment on above:Performed By: #### [id number] #### [facility] [address] [place], [place] [address]Eksxjkgag/Leukocytes Auto (Bld) [Pure # fraction]0.1 E9/LNormal 0.0-0.2FOhioHealth Berger HospitalComment on above:Performed By: #### [id number] #### [facility] [address] [place] [address]Eeokbikutfo (Bld) [#/Vol]0.5 E9/LNormal0.0-0.5FOhioHealth Berger HospitalComment on above:Performed By: #### [id number] #### [facility] [address] [place], [place] [address]Ldblmcnafic/100 WBC (Bld)6.2 %Normal0.0-8.0[facility] Memorial HospitalComment on above:Performed By: #### [id number] #### [facility] [address] [place], [place] [address]Mbqhlmjixen distribution width (RBC) [Ratio]14.2 %Normal 10.9-14.2FOhioHealth Berger HospitalComment on above:Performed By: #### [id number] #### [facility] [address] [place], [place] [address]Croskuuujg (Bld) [Volume fraction]38.4 %Mhroum86.0-46.0[facility] HospitalComment on above:Performed By: #### [id number] #### [facility] [address] [place] [address]Njizsjzmze (Bld) [Mass/Vol]13.2 g/wDIpymze97.0-16.0[facility] HospitalComment on above:Performed By: #### [id number] #### [facility] [address] [place] [address]Opcsocqtepf (Bld) [#/Vol]2.8 E9/LNormal1.0-4.0[facility] Memorial HospitalComment on above:Performed By: #### [id number] #### [facility] [address] [place], [place] [address] 72356Kpgcmjdavvb/100 WBC (Bld)32.4 %Ybyljl75.0-50.0[facility] Memorial HospitalComment on above:Performed By: #### [id number] #### [facility] [address] [place] [address] 73810GVL (RBC) [Entitic mass]33.2 ykLjqvsh29.0-34.0[facility] HospitalComment on above:Performed By: #### [id number] #### [facility] [address] [place] [address] [id number] (RBC) [Mass/Vol]34.4 g/tHGeeazp88.4-36.0[facility] HospitalComment on above:Performed By: #### [id number] #### [facility] [address] [place] [address] [id number] (RBC) [Entitic vol]96.7 hFNbucxd34.0-100.0[facility] HospitalComment on above:Performed By: #### [id number] #### [facility] [address] [place] [address] 96707Sljpxjmar (Bld) [#/Vol]0.7 E9/LNormal0.2-1.0[facility] HospitalComment on above:Performed By: #### [id number] #### [facility] [address] [place] [address] 60105Fnhynyvuhja (Bld) [#/Vol]4.5 E9/LNormal2.0-7.5FOhioHealth Berger HospitalComment on above:Performed By: #### [id number] #### [facility] [address] [place] [address] 73301Ykegncmuxub/100 WBC (Bld)52.3 %Oqmwfj51.0-75.0[facility] HospitalComment on above:Performed By: #### [id number] #### [facility] [address] [place] [address] 27802Yqqkamdn mean volume (Bld) [Entitic vol]8.1 fLNormal6.4-10.8 [facility] HospitalComment on above:Performed By: #### [id number] #### [facility] [address] [place] [address] 36686Xxditnjmi (Bld) [#/Vol]314.0 E9/RMvnqzw924.0-500.0[facility] HospitalComment on above:Performed By: #### [id number] #### [facility] [address] [place] [address] [id number] (Bld) [#/Vol]4.0 E12/LLow4.3-5.9[facility] Comment on above:Performed By: #### [id number] #### [facility] [address] [place] [address] 71401ZAM corrected for nucl RBC Auto (Bld) [#/Vol]8.5 E9/LNormal 4.0-11.0[facility] HospitalComment on above:Performed By: #### [id number] #### [facility] [address] [place] [address] [id number] By: SYSTEM SYSTEM on 47-61-6130Mtbgorlhi [Moles/Vol]4.0 mmol/LNormal3.5 - 5.3 mmol/LRemisol ChemHEMATOLOGYOrdered By: SYSTEM SYSTEM on 80-14-0510Sbpjkmmlf/100 WBC (Bld)0.8 %Normal0.0 - 2.0 %Remisol HemeBasophils/Leukocytes Auto (Bld) [Pure # fraction]0.1 E9/LNormal0.0 - 0.2 E9/LRemisol HemeEosinophils (Bld) [#/Vol]0.5 E9/LNormal0.0 - 0.5 E9/LRemisol HemeEosinophils/100 WBC (Bld)6.2 %Normal0.0 - 8.0 %Remisol HemeErythrocyte distribution width (RBC) [Ratio]14.2 %Xbooqj75.9 - 14.2 %Remisol HemeHematocrit (Bld) [Volume fraction]38.4 %Tnkijv91.0 - 46.0 %Remisol HemeHemoglobin (Bld) [Mass/Vol]13.2 g/mDDwpjwf43.0 - 16.0 gm/dLRemisol HemeLymphocytes (Bld) [#/Vol] 2.8 E9/LNormal1.0 - 4.0 E9/LRemisol HemeLymphocytes/100 WBC (Bld)32.4 %Normal 14.0 - 50.0 %Remisol HemeMCH (RBC) [Entitic mass]33.2 pjWabwre08.0 - 34.0 pg Remisol HemeMCHC (RBC) [Mass/Vol]34.4 g/jCZvxxld38.4 - 36.0 gm/dLRemisol HemeMCV (RBC) [Entitic vol]96.7 iEIgpejn27.0 - 100.0 fLRemisol HemeMonocytes (Bld) [#/Vol]0.7 E9/LNormal0.2 - 1.0 E9/LRemisol HemeMonocytes/100 WBC (Bld)8.3 % Normal4.0 - 14.0 %Remisol HemeNeutrophils (Bld) [#/Vol]4.5 E9/LNormal2.0 - 7.5 E9/LRemisol HemeNeutrophils/100 WBC (Bld)52.3 %Jmartk53.0 - 75.0 %Remisol Heme Platelet mean volume (Bld) [Entitic vol]8.1 fLNormal6.4 - 10.8 fLRemisol Heme Platelets (Bld) [#/Vol]314.0 E9/DWzwujl282.0 - 500.0 E9/LRemisol HemeRBC (Bld) [#/Vol]4.0 E12/LLow4.3 - 5.9 E12/LRemisol HemeWBC corrected for nucl RBC Auto (Bld) [#/Vol]8.5 E9/LNormal4.0 - 11.0 E9/LRemisol HemePotassiumon 07-02-2024 Potassium [Moles/Vol]4.0 mmol/LNormal3.5-5.3[facility]. Finan CenterComment on above:Performed By: #### [id number] #### [facility] [address] [place], [place] [address]Ltvfozrdvv Visit Summaryon 65-89-1922Opsijmunfh Visit Summary Ambulatory Visit Summary ADELINA MIR :1960 Visit Date:06/11/2024 Ambulatory Visit Instructions Your Diagnosis Encounter for Medicare annual examination with abnormal findings Breast cancer of lower-inner quadrant of left female breast HTN (hypertension) Generalized anxiety disorder Scoliosis Immunization refused Colonoscopy refused Advanced directives, counseling/discussion Your Care Team Attending Physician - Michael Holley MD Primary Care Physician - Michael Holley MD This Is Your Medications List Non-Formulary Medication (Misc Medication) alprazolam (alprazolam 0.25 mg Tab) aspirin (aspirin 81 mg Oral EC Tab) cyclobenzaprine (cyclobenzaprine 10 mg Tab) gabapentin (gabapentin 300 mg Cap) hydrochlorothiazide-losartan (Hyzaar 12.5 mg-50 mg Tab) sulfamethoxazole-trimethoprim (sulfamethoxazole-trimethoprim 800 mg-160 mg Tab) Procedures Performed Mastectomy (05/16/2024), Excision of intradermal nevus (02/20/2024), Excision of breast mass (01/10/2024), Biopsy of breast (06/27/2023), Arthroscopy of knee (06/04/1995), Appendectomy, Cholecystectomy, Extraction of wisdom tooth, Foot, Simple dental extraction, DEAN BSO - Total abdominal hysterectomy and bilateral salpingo-oophorectomy, Tonsillectomy and adenoidectomy. Discharge Vitals Heart Rate (Peripheral) 66 Respiratory Rate 14 Blood Pressure 150/80 Height 170 cm Height 67 in Weight 67.7 kg Weight 148.94 lb BMI 23.43 What to do next Scheduled Follow-Up Appointments Monday 1:15 PM EST With: Kishan PRATT, Michael Barker Where: [address] [id number]- Monday 1:00 PM EDT With: Where: [address] [address]- Medications What How Much When Instructions Unchanged alprazolam (alprazolam 0.25 mg Tab) See instructions 1 tab tid prn Unchanged aspirin (aspirin 81 mg Oral EC Tab) 1 Tablets By Mouth Every day Unchanged cyclobenzaprine (cyclobenzaprine 10 mg Tab) 1 Tablets By Mouth At bedtime as needed for for spasm Unchanged gabapentin (gabapentin 300 mg Cap) 1 Capsules By Mouth 3 times a day Unchanged hydrochlorothiazide-losartan (Hyzaar 12.5 mg-50 mg Tab) 1 Tablets By Mouth Every day Unchanged Non-Formulary Medication (Misc Medication) See instructions balance of nature-3 tabs a day Unchanged sulfamethoxazole-trimethoprim (sulfamethoxazole-trimethoprim 800 mg- 160 mg Tab) Medications and Immunizations Administered Not Given influenza virus vaccine, inactivated, Patient Refuses Allergies Entex (Unknown) Skelaxin (Unknown) corticosteroids (Anaphylaxis) Problems Ongoing - Any problem that you are currently receiving treatment for. Abnormal EKG ADHD Anxiety BMI 23.0-23.9, adult Breast cancer of lower-inner quadrant of left female breast Complex regional pain syndrome of lower limb Dysuria Essential tremor Generalized anxiety disorder HTN (hypertension) Hx of osteoarthritis Idiopathic polyneuropathy Intradermal melanocytic nevus Mass of left breast Neoplasm of uncertain behavior of skin of back Neoplasm of uncertain behavior of skin of face Postoperative pain Pre-op exam Scoliosis Historical - Any problem that you are no longer receiving treatment for. Polyneuropathy RSD lower limb Patient Survey You may receive a survey via text or e-mail asking about your office visit. Please share your experience with us by completing your survey. We appreciate your feedback and thank you for choosing us for your care. Education Materials Chemotherapy Chemotherapy is a cancer treatment. It uses medicines to slow down or stop the growth of cancer. You may have chemotherapy to: ? Cure your cancer. ? Prevent the cancer from growing or spreading (metastasizing). ? Ease symptoms and improve your quality of life (palliative care). ? Improve the effects of radiation treatment. ? Shrink a tumor before surgery. ? Rid the body of cancer cells that remain after having a tumor surgically removed. The length of chemotherapy treatment depends on many factors, including: ? The type and stage of your cancer. ? How you respond to the chemotherapy. ? Your side effects. What are the risks? Generally, this is a safe treatment. However, problems may occur, including: ? Infection. ? Bleeding. ? Allergic reactions to medicines. You may have side effects from chemotherapy. What side effects you have depend on a variety of factors, including: ? The type of chemotherapy medicine used. ? Your dosage. ? How long the medicine is used for. ? Your overall health. What happens before treatment? ? You will meet with your cancer care team to discuss: ? Your treatment schedule. ? How your chemotherapy medicine will (more content not included)...[facility] Medicine Office/Clinic Noteon [id number] Medicine Office/Clinic NoteGuardian Hospital Medicine Office/Clinic Note Chief Complaint Initial Medicare Wellness History of Present Illness Covid-19, MERS, Ebola Screen *Contact With Person With Highly Contagious Disease Like Ebola/MERS/COVID-19 AND Have One or More of the Symptoms Below : No *Travel to a Country With Wide-Spread Ebola/MERS/COVID-19 in the Past 21 Days AND Have One or More of the Symptoms Below : No Patient Reported Covid-19 Testing : No *Verify Droplet, Contact Precautions for Ebola (Reference for CDC) : N/A *Verify Airborne, Droplet Precautions for MERS/COVID-19 : N/A Bre Guan 06/11/2024 14:31 EDT Medicare/Medicaid Summary Chief Complaint : Initial Medicare Wellness Patient Counseled : Nutrition, Physical activity, Elevated BMI Height/Length Measured : 170 cm(Converted to: 5 ft 7 in, 66.93 in) Weight Measured : 67.7 kg(Converted to: 149 lb 4 Ounces, 149.253 lb) Body Mass Index Measured : 23.43 kg/m2 Height in Inches : 67 in Weight in Pounds : 148.94 lb Systolic Blood Pressure : 150 mmHg (HI) Diastolic Blood Pressure : 80 mmHg Blood Pressure Location : Right arm Blood Pressure Position : Sitting O2 Sat Resting/Exertion Alpha : Resting Peripheral Pulse Rate : 66 bpm Respiratory Rate : 14 br/min SpO2 : 97 % Pain Present : Yes actual or suspected pain Numeric Rating Pain Scale : 4 Primary Pain Location : Chest Numeric Rating Pain Score : 4 Bre Guan - 06/11/2024 14:31 EDT Patient Preferred Method of Communication No Preference Hearing and Vision Screening FT FT Whisper Test Comments : no hearing deficits Vision Screen Comments : wears eye lens. s Best yearly Bre Guan - 06/11/2024 14:31 EDT Advance Directive FT Advance Directive : No Patient Wishes to Receive Further Information on Advance Directives : Yes Organ Donation Consent : Yes RogeBenitaoscar Pool - 06/11/2024 14:31 EDT Procedures / Surgeries FT - Procedure History (As Of: 06/11/2024 14:49:55 EDT) Anesthesia Minutes: 0 ; Procedure Name: DEAN BSO - Total abdominal hysterectomy and bilateral salpingo-oophorectomy ; Procedure Minutes: 0 ; Last Reviewed Dt/Tm: 06/11/2024 14:36:11 EDT Procedure Dt/Tm: 06/04/1995 ; Anesthesia Minutes: 0 ; Procedure Name: Arthroscopy of knee ; Procedure Minutes: 0 ; Last Reviewed Dt/Tm: 06/11/2024 14:36:11 EDT Anesthesia Minutes: 0 ; Procedure Name: Foot ; Procedure Minutes: 0 ; Comments: 11/08/2022 15:03 Terra Rodriguez MA 15 Foot surgeries total per patient no further details ; Last Reviewed Dt/Tm: 06/11/2024 14:36:11 EDT Anesthesia Minutes: 0 ; Procedure Name: Tonsillectomy and adenoidectomy ; Procedure Minutes: 0 ; Last Reviewed Dt/Tm: 06/11/2024 14:36:11 EDT Anesthesia Minutes: 0 ; Procedure Name: Appendectomy ; Procedure Minutes: 0 ; Last Reviewed Dt/Tm: 06/11/2024 14:36:11 EDT Anesthesia Minutes: 0 ; Procedure Name: Cholecystectomy ; Procedure Minutes: 0 ; Last Reviewed Dt/Tm: 06/11/2024 14:36:11 EDT Anesthesia Minutes: 0 ; Procedure Name: Simple dental extraction ; Procedure Minutes: 0 ; Last Reviewed Dt/Tm: 06/11/2024 14:36:11 EDT Anesthesia Minutes: 0 ; Procedure Name: Extraction of wisdom tooth ; Procedure Minutes: 0 ; Last Reviewed Dt/Tm: 06/11/2024 14:36:11 EDT Procedure Dt/Tm: 06/27/2023 ; Anesthesia Minutes: 0 ; Procedure Name: Biopsy of breast ; Procedure Minutes: 0 ; Last Reviewed Dt/Tm: 06/11/2024 14:36:11 EDT Procedure Dt/Tm: 01/10/2024 ; Provider: Roshan BRAUN MD; Anesthesia Minutes: 0 ; Procedure Name: Excision of breast mass ; Procedure Minutes: 0 ; Last Reviewed Dt/Tm: 06/11/2024 14:36:11 EDT Procedure Dt/Tm: 02/20/2024 ; Provider: Roshan BRAUN MD; Anesthesia Minutes: 0 ; Procedure Name: Excision of intradermal nevus ; Procedure Minutes: 0 ; Comments: 02/27/2024 15:04 EDT - Melissa JACQUES, Amaris Mckeon face ; Last Reviewed Dt/Tm: 06/11/2024 14:36:11 EDT Procedure Dt/Tm: 05/16/2024 ; Anesthesia Minutes: 0 ; Procedure Name: Left breast Mastectomy with Reconstruction ; Procedure Minutes: 0 ; Comments: 05/16/2024 14:21 EDT - Alee Jacome RN 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 Alcohol use interferes with work or home: No. Drinks more than intended: No. Others hurt by drinking: No. Ready to change: No. Household alcohol concerns: No. Comments: 06/11/2024 14:37 - Bre Guan: patient has a drink 1-2 times a month. (Last Updated: 06/11/2024 14:37:40 EDT by Bre Guan) Tobacco: Denies Tobacco Use Former smoker, quit more than 30 days ago Tobacco Use:. Never Smokeless Tobac (more content not included)...[facility]ike Medical CenterComment on above: Result Comment: Electronically Signed By: Michael Holley MD\.br\Date and Time Signed: 06/19/24 09:05 EDT\.br\Electronically Co-Signed By: Bre Guan\.br\Date and Time Co-Signed: 06/11/24 15:21 EDTCT chest w rennyon 47-30-0589KC [facility] GroupFami Medicine Office/Clinic Note on 95-30-5727Qsobfl Medicine Office/Clinic NoteFamily Medicine Office/Clinic Note HPI Staff Adelina is a 63 year old female presenting for follow up after surgery Left breast mastectomy and reconstruction 05/16/24, tube just out today She's about 4-5 on pain scale. Having ct scan on the and will be doing chemo AMW done today BP elevated w/ Bre, second one done with me 160/102 flu: refused questions/concerns: needs her losartan refilled to [facility] Bre discussed lipid pf with her but she want's to talk to you about this History of Present Illness See staff HPI. Physical Exam General: alert, no acute distress ENMT: oral mucosa moist, Cardiovascular: , normal peripheral perfusion Respiratory: respirations non labored Extremities: no deformity, no trauma Neurological: oriented x 4, LOC appropriate for age, CN II-XII intact, motor strength equal & normal bilaterally, speech normal Assessment/Plan 1. Unspecified lump in the left breast, lower outer quadrant (N63.23: Unspecified lump in the left breast, lower outer quadrant) After the patient's mastectomy and the patient had implants placed. However they got infected and had to be removed. Patient is in pain today and probably why her blood pressure is elevated. 2. Primary hypertension (I10: Essential (primary) hypertension) Elevated today. Patient is in pain. Will recheck in 2 months. Patient is to be monitoring it and ifno improvement in the next month patient will come in sooner. 3. Generalized anxiety disorder (F41.1: Generalized anxiety disorder) Improving. 4. Former smoker (Z87.891: Personal history of nicotine dependence) Please continue not to smoke. Orders: gabapentin, 300 mg = 1 cap(s), Oral, BID, # 180 cap(s), Refills(s) 3, Pharmacy: [facility], 170, cm, 05/14/24 14:25:00 EDT, Height/Length Dosing, 67.9, kg, 05/14/24 14:25:00 EDT, Weight Dosing Follow-up No qualifying data available Patient Education Hypertension, Adult Problem List/Past Medical History Ongoing Abnormal EKG ADHD Anxiety BMI 23.0-23.9, adult Breast cancer of lower-inner quadrant of left female breast Complex regional pain syndrome of lower limb Dysuria Essential tremor Generalized anxiety disorder HTN (hypertension) Hx of osteoarthritis Idiopathic polyneuropathy Intradermal melanocytic nevus Mass of left breast Neoplasm of uncertain behavior of skin of back Neoplasm of uncertain behavior of skin of face Postoperative pain Pre-op exam Scoliosis Historical Polyneuropathy RSD lower limb Procedure/Surgical History Mastectomy (05/16/2024), Excision of intradermal nevus (02/20/2024), Excision of breast mass (01/10/2024), Biopsy of breast (06/27/2023), Arthroscopy of knee (06/04/1995), Appendectomy, Cholecystectomy, Extraction of wisdom tooth, Foot, Simple dental extraction, DEAN BSO - Total abdominal hysterectomy and bilateral salpingo-oophorectomy, Tonsillectomy and adenoidectomy. Medications alprazolam 0.25 mg Tab, See Instructions aspirin 81 mg Oral EC Tab, 81 mg= 1 tab(s), Oral, Daily cyclobenzaprine 10 mg Tab, 10 mg= 1 tab(s), Oral, Bedtime, PRN, 3 refills gabapentin 300 mg Cap, 300 mg= 1 cap(s), Oral, TID Hyzaar 12.5 mg-50 mg Tab, 1 tab(s), Oral, Daily, 3 refills Misc Medication, See Instructions sulfamethoxazole-trimethoprim 800 mg-160 mg Tab Allergies Entex (Unknown) Skelaxin (Unknown) corticosteroids (Anaphylaxis) Social History Alcohol - Medium Risk, 04/29/2024 Current, Wine, Liquor, 1-2 times per month, Previous treatment: None. Alcohol use interferes with work or home: No. Drinks more than intended: No. Others hurt by drinking: No. Ready to change: No. Household alcohol concerns: No., 06/11/2024 Substance Abuse Current, Marijuana, Daily, 06/11/2024 Tobacco - Denies Tobacco Use, 04/29/2024 Former smoker, quit more than 30 days ago Tobacco Use:. Never Smokeless Tobacco Use:. Cigarettes, Household tobacco concerns: No., 06/11/2024 Family History Primary malignant neoplasm of lung: Mother. Immunizations Vaccine Date Status Comments influenza virus vaccine, inactivated - Not Given Patient Refuses influenza virus vaccine, inactivated - Not Given Patient Refuses influenza virus vaccine, inactivated - Not Given Patient Refuses SARS-CoV-2 mRNA (tozinameran 5y-11y) vac - Not Given Postpone due to refusal [facility] CenterComment on above:Result Comment: Electronically Signed By: Kishan PRATT, Michael Ball.br\Date and Time Signed: 06/11/24 15:18 EDT Amphetamine Screen Ql (U)Ordered By: Corona Krishna on 20-79-8003Rfnqghefrrih Ql (U)NegativeNegativeSelect Medical [facility] Clinic Rehabilitation Hospital, AvonAnisocytosis [Presence] in Blood by Light microscopyOrdered By: Corona Krishna on 43-94-6770Mjonblkbbhbe Ql (Bld)SlightNormalSelect Medical [facility] Clinic Rehabilitation Hospital, AvonComment on above:Performed By: #### SCAN CBC, BMP ####[facility] [address] [place] [address] USAAutomated basophil %Ordered By: Corona Krishna on 29-48-7617Pqhsihyov/100 WBC (Bld)0.3 %Normal.[facility] Comment on above:Performed By: #### SCAN CBC, BMP ####[facility] [place] [id number] USAAutomated basophil countOrdered By: Corona Krishna on 10-93-5913Coiwhfiak (Bld) [#/Vol]0.0 10*3/uLNormal0.0-0.2 [facility], AvonComment on above:Performed By: #### SCAN CBC, BMP ####[place] [id number] [place] Automated blood monocyte countOrdered By: Corona Krishna on 59-45-3384Tpoowcuvg (Bld) [#/Vol]1.0 10*3/uLHigh0.0-0.8[facility], AvonComment on above:Performed By: #### SCAN CBC, BMP ####[place] [address] USAAutomated eosinophil %Ordered By: Corona Krishna on 04-26-1081Buyoyrjpkcp/100 WBC (Bld)10.6 %Normal.[facility], AvonComment on above:Performed By: #### SCAN CBC, BMP ####[place] [address] USAAutomated eosinophil countOrdered By: Corona Krishna on 42-04-9197Vxwkcqjeplg (Bld) [#/Vol]1.8 10*3/uLHigh0.0-0.45[facility], AvonComment on above:Performed By: #### SCAN CBC, BMP ####[place] [id number] USAAutomated monocyte %Ordered By: Corona Krishna on 77-25-2897Mphexbtii/100 WBC (Bld)5.9 %Normal.[facility] Comment on above:Performed By: #### SCAN CBC, BMP ####[place] [id number] USAAutomated neutrophil %Ordered By: Corona Krishna on 42-95-4549Zynjptkgwza/100 WBC (Bld)65.7 %Normal.[facility], AvonComment on above:Performed By: #### SCAN CBC, BMP ####[address] [place] [address] [facility] Barbiturates [Presence] in Urine by Screen methodOrdered By: Corona Krishna on 90-96-8958Ksfsthhisjrh Screen Ql (U)NegativeNegKing's Daughters Medical Center OhioBasic Metabolic Panelon 65-25-5124Zjktgfyyrx Clr Calc Glrnqmkc63.32Normal [facility] Physician GroupComment on above:Result Comment: PERFORMED BY:[address] [place], [place] [phone] MEDICAL DIRECTORRADHA BONILLA M.D.Performed By: #### SCAN CBC, BMP ####[address] [address] [facility] GFR/1.73 sq M.predicted MDRD (S/P/Bld) [Vol rate/Area]53.862 mL/min/{1.73_m2} NormalThe Formerly V[facility] Duplin Hospital Physician GroupComment on above:Performed By: #### SCAN CBC, BMP ####[address] [address] [facility] Benzodiazepines Screen Ql (U)Ordered By: Corona Krishna on 06-05-2024 Benzodiazepines Ql (U)PositiveMercy Health St. [facility] Benzoylecgonine [Presence] in Urine by Screen methodOrdered By: Corona Krishna on 47-62-9832Cqybhldprnfqrku Screen Ql (U)NegativeNegKing's Daughters Medical Center OhioCalcium [Mass/volume] in Serum or PlasmaOrdered By: Corona Krishna on 93-54-5959Jyaqews [Mass/Vol]9.0 mg/dLNormal8.6-10.3FCincinnati Children's Hospital Medical CenterComment on above:Performed By: #### SCAN CBC, BMP ####[address] [address] [facility]OSPITALCannabinoids [Presence] in Urine by Screen methodOrdered By: Corona Krishna on 06-05-2024 Cannabinoids Screen Ql (U)PositiveMercy Health St. [facility] Comment on above:These are unconfirmed results and should not be used for legal purposes. Drug Cut-Off Concentration: AMPH 1000 ng/mL LUIS FERNANDO 200 ng/mL JAIME 200 ng/mL COCM 300 ng/mL OP 300 ng/mL PCP 25 ng/mL THC 20 ng/mLCarbon dioxide, total [Moles/volume] in Serum or PlasmaOrdered By: Corona Tomi on 94-40-0277EY0 [Moles/Vol]24.9 mmol/WScxgce78.0-31.0[facility], AvonComment on above:Performed By: #### SCAN CBC, BMP ####[place] [id number] USAChloride [Moles/volume] in Serum or Plasma Ordered By: Corona Krishna on 69-80-0816Ixtzccns [Moles/Vol]101 mmol/LNormal 98-107[facility], AvonComment on above:Performed By: #### SCAN CBC, BMP ####[place] [id number] USACreatinine [Mass/volume] in Serum or PlasmaOrdered By: Corona Krishna on 48-31-6308Nlidwrsovg [Mass/Vol]1.15 mg/dLNormal0.60-1.20[facility], AvonComment on above:Performed By: #### SCAN CBC, BMP ####[place] [id number] USADrug Screen,Urineon 22-83-6780Qwgzaxbmhpz Screen,UrineNegativeNormalNegativeThe [facility] Physician [facility] SystemComment on above:Performed By: #### URDS ####[address] [address] USABarbiturate Screen,UrineNegativeNormal NegativeThe Formerly [facility] Hospital Physician GroupComment on above:Performed By: #### URDS ####[address] [address] [place] Benzodiazepines Screen,UrinePositiveHighNegativeThe [facility] Comment on above:Performed By: #### URDS ####[address] [address] USACannabinoid Screen,UrinePositiveHighNegative The [facility] Physician GroupComment on above:Result Comment: These are unconfirmed results and should not be used for legal purposes. Drug Cut-Off Concentration: AMPH 1000 ng/mL LUIS FERNANDO 200 ng/mL JAIME 200 ng/mL COCM 300 ng/mL OP 300 ng/mL PCP 25 ng/mL THC 20 ng/mLPERFORMED BY:[address] [place], [place] [id number] MEDICAL DIRECTORRADHA BONILLA M.D.Performed By: #### URDS ####[address] [address] USACocaine Screen,UrineNegativeNormal NegativeAdventhealth Tampa Physician [facility] Care SystemComment on above:Performed By: #### URDS ####[address] [address] USAOpiate Screen,UrineNegativeNormalNegativeThe [facility] Physician [facility] Care SystemComment on above: Performed By: #### URDS ####[address] [address] USAPhencyclidine Screen,UrineNegativeNormalNegativeMerit Health WesleyComment on above:Performed By: #### URDS ####[address] [address] USAECG 12 lead ECGon [id number] 12 lead ECGNormalThe [facility] - PoconoErythrocyte distribution width [Ratio] by Automated countOrdered By: Corona Krishna on 94-68-7022Cjwgnglfcvc distribution width (RBC) [Ratio]14.5 %Qemkcf55.9-15.3 [facility], AvonComment on above:Performed By: #### SCAN CBC, BMP ####[address] [address] [place] Erythrocytes [#/volume] in Blood by Automated countOrdered By: Corona Krishna on 53-91-9326RVP (Bld) [#/Vol]3.77 10*6/uLNormal3.60-5.00[facility], AvonComment on above:Performed By: #### SCAN CBC, BMP ####[address] [address] USAGlucose [Mass/volume] in Serum or PlasmaOrdered By: Cornoa Krishna on 65-65-8698Ognuvat [Mass/Vol]96 mg/lCLvkimt11-795MkwgquxzsSelect Medical [facility] Hospital, AvonComment on above:ADA recommended reference rangeRandom Glucose Reference Range is dependent on time and content of last meal. Glucose of more than 200 mg/dL in a nonstressed, ambulatory subject supports the diagnosisof Diabetes Mellitus.Result Comment: Random Glucose Reference Range is dependent on time and content of last meal. Glucose of more than 200 mg/dL in a nonstressed, ambulatory subject supports the diagnosis of Diabetes Mellitus. ADA recommended reference rangePerformed By: #### SCAN CBC, BMP ####[facility] [address] [place] [address] USAHematocrit [Volume Fraction] of Blood by Automated countOrdered By: Corona Krishna on 47-89-9573Spauvopszn (Bld) [Volume fraction]36.3 %Normal 34.0-46.4FCincinnati Children's Hospital Medical CenterComment on above:Performed By: #### SCAN CBC, BMP ####[facility] [place] [address] USAHemoglobin [Mass/volume] in BloodOrdered By: Corona Krishna on 75-92-4252Weuxfunevp (Bld) [Mass/Vol]12.3 g/hZSacxtv90.8-15.4FCincinnati Children's Hospital Medical CenterComment on above:Performed By: #### SCAN CBC, BMP ####[address] [address] USALeukocytes [#/volume] corrected for nucleated erythrocytes in Blood by Automated counOrdered By: Corona Krishna on 36-10-0614FDD corrected for nucl RBC Auto (Bld) [#/Vol]16.7 10*3/uLHigh3.8-11.6FCincinnati Children's Hospital Medical CenterLeukocytes [#/volume] in Blood by Automated countOrdered By: Corona Krishna on 96-20-4280MOA (Bld) [#/Vol]16.7 10*3/uLHigh3.8-11.6FCincinnati Children's Hospital Medical CenterComment on above:Performed By: #### SCAN CBC, BMP ####[address] [address] USALymphocytes [#/volume] in Blood by Automated countOrdered By: Corona Krishna on 07-31-3351Azpywwihtvw (Bld) [#/Vol]2.9 10*3/uLNormal1.00-4.8[facility], AvonComment on above:Performed By: #### SCAN CBC, BMP ####[place] [id number] USALymphocytes/100 leukocytes in Blood by Automated countOrdered By: Corona Krishna on 14-58-8193Iduissauwgi/100 WBC (Bld)17.5 % Normal.[facility], AvonComment on above:Performed By: #### SCAN CBC, BMP ####[place] [id number] [facility] [place] [Entitic mass] by Automated countOrdered By: Corona Krishna on 06-05-2024 MCH (RBC) [Entitic mass]32.7 pzFahnye82.7-34.3FCincinnati Children's Hospital Medical Center Comment on above:Performed By: #### SCAN CBC, BMP ####[place] [id number] [facility] Auto (RBC) [Mass/Vol]Ordered By: Corona Krishna on 50-78-1178XUWI (RBC) [Mass/Vol]33.9 g/dL32.0-35.0[facility], AvonMCV [Entitic volume] by Automated countOrdered By: Corona Krishna on 06-99-0867MZD (RBC) [Entitic vol]96.3 mSYvjdht10-259CpcgczhetSelect Medical Cleveland Clinic Rehabilitation Hospital, AvonComment on above:Performed By: #### SCAN CBC, BMP ####[place] [id number] [place] Neutrophils [#/volume] in Blood by Automated countOrdered By: Corona Krishna on 49-58-6616Rdulzrownxu (Bld) [#/Vol]11.0 10*3/uLHigh1.8-7.7FCincinnati Children's Hospital Medical CenterComment on above:Performed By: #### SCAN CBC, BMP ####[facility] [address] [place] [id number] USANo Panel Information Ordered By: Corona Krishna on 31-09-3343Updmcsvwp GFR (CKD-EPI)53.862 mL/Min [facility] AvonPharmacy Creatinine Clearance (Chem49.32 [facility], AvonNucleated erythrocytes [Presence] in Blood by Automated countOrdered By: Corona Krishna on 45-82-1727Rzgqikfaj RBC Auto Ql (Bld)0.0 /100{WBC}0-0.5FCincinnati Children's Hospital Medical CenterOpiates [Presence] in Urine by Screen methodOrdered By: Corona Krishna on 99-65-8002Jogvzct Screen Ql (U)NegativeNegKing's Daughters Medical Center OhioOvalocyte detectionOrdered By: Corona Krishna on 10-80-0742Mylxtqywxm LM Ql (Bld)SlightSelect Medical Cleveland Clinic Rehabilitation Hospital, AvonPhencyclidine Screen Ql (U)Ordered By: Corona Krishna on 81-78-7511Frmbxvsumkqjc Ql (U)NegativeNegKing's Daughters Medical Center Ohio Platelet adequacy [Presence] in Blood by Light microscopyOrdered By: Corona Krishna on 47-78-7662Zxpyztjks LM Ql (Bld)[facility]field Medical CenterPlatelet mean volume [Entitic volume] in Blood by Automated countOrdered By: Corona Krishna on 02-99-1759Tilrfezx mean volume (Bld) [Entitic vol]8.3 fL Normal6.3-10.7FCincinnati Children's Hospital Medical CenterComment on above:Performed By: #### SCAN CBC, BMP ####[facility] [address] [place] [address] USAPlatelet morphology finding [Identifier] in BloodOrdered By: Corona Krishna on 77-33-4667Gqaxlpiq morphology finding Nom (Bld)[facility]field Medical CenterPlatelets [#/volume] in Blood by Automated countOrdered By: Corona Krishna on 16-78-1653Evqyzjnpm (Bld) [#/Vol]270 10*3/vJXryiny493-015 [facility], AvonComment on above:Performed By: #### SCAN CBC, BMP ####[place] [address] [place] Poikilocytosis [Presence] in Blood by Light microscopyOrdered By: Corona Krishna on 12-73-1966Gxjonhztykmyoc LM Ql (Bld)[facility] Polychromasia [Presence] in Blood by Light microscopyOrdered By: Corona Krishna on 36-56-6759Diilmbhvwdubq LM Ql (Bld)[facility] Potassium [Moles/volume] in Serum or PlasmaOrdered By: Corona Krishna on 99-56-8590Majqsouyw [Moles/Vol]3.4 mmol/LLow3.5-5.1FCincinnati Children's Hospital Medical CenterComment on above:Performed By: #### SCAN CBC, BMP ####[place] [address] USARBC morphologyOrdered By: Corona Krishna on 53-34-7129AMT morphology finding Nom (Bld)N/[facility]lap Memorial HospitalRed blood cell stomatocyte detectionOrdered By: Corona Krishna on 22-43-3123Tfvbuhypmcfa LM Ql (Bld)[facility] Hospitalcan and CBCon 70-99-4045Klyf Corpuscular HGB Conc33.9 g/bFQgocku61.0-35.0 [facility] Physician GroupComment on above:Performed By: #### SCAN CBC, BMP ####[place] [id number] USANRBC% 0.0 /100{WBC}Normal0-0.5The [facility] Physician GroupComment on above:Performed By: #### SCAN CBC, BMP ####[place] [id number] USAOvalocytesSlightNormalThe [facility] Physician Group Comment on above:Performed By: #### SCAN CBC, BMP ####[place] [id number] USAPlatelet EstimateNormalNormalNormal The [facility] Physician GroupComment on above:Performed By: #### SCAN CBC, BMP ####[facility] [place] [address] [place] Platelet MorphologyNormalNormHCA Florida Pas[facility] Physician [facility] Veterans Health Care SystemComment on above:Result Comment: PERFORMED BY:[address] [place], [place] [phone] MEDICAL DIRECTORRADHA BONILLA M.D. Performed By: #### SCAN CBC, BMP ####[address] [address] USAPoikilocytosisSAtrium Health Providence Physician GroupComment on above:Performed By: #### SCAN CBC, BMP ####[address] [address] USAPolychromasiaSAtrium Health Providence Physician [facility] Health Care SystemComment on above:Performed By: #### SCAN CBC, BMP ####[address] [address] [facility] StomatocytesSAtrium Health Providence Physician GroupComment on above:Performed By: #### SCAN CBC, BMP ####[address] [address] USASerum or plasma anion gap determinationOrdered By: Corona Krishna on 00-75-1414Rdrnp gap [Moles/Vol]14.5 mmol/LNormal6.0-15.0 [facility], AvonComment on above:Performed By: #### SCAN CBC, BMP ####[address] [address] [place] Sodium [Moles/volume] in Serum or PlasmaOrdered By: Corona Krishna on 06-05-2024 Sodium [Moles/Vol]137 mmol/QEzadbk100-460JefkjuabySelect Medical [facility] [place] Comment on above:Performed By: #### SCAN CBC, BMP ####[address] [address] USAUrea nitrogen [Mass/volume] in Serum or PlasmaOrdered By: Corona Krishna on 51-41-6098Thxc nitrogen [Mass/Vol]21 mg/dLNormal7-25[facility], AvonComment on above:Performed By: #### SCAN CBC, BMP ####[facility] [id number] [place] [address] USA[address] Addendum Reporton Addendum ReportBarberton Citizens Hospital [address] [place] [address]- Surgical Pathology Report Collected Date/Time: 05/16/2024 11:28 EDT Pathologist: Timothy Duckworth MD Received Date/Time: 05/17/2024 07:49 EDT APARNA PRATT, Roshan BRAUN MD, Roshan Nguyen Addendum Report - 06/04/2024 15:46 EDT - Auth (Verified) Addendum Tissue block was selected by pathologist for molecular testing on 05/27/2024 after reviewing the slides. The reference lab report was reviewed by pathologist. HER-2 IHC RESULT: 1+ For complete report details, please refer to Reference Laboratory Report using this FIN account number. Information entered by dc at 06/04/2024 08:28:56 EDT CPT CODE: 37838 (Electronic Signature) Anderson Packer MD PhD 06/04/2024 15:46 Addendum Reason Initial diagnosis remains unchanged. Add procedure result or create for billing purpose 07 Addendum Report - 05/27/2024 16:04 EDT - Auth (Verified) Addendum To issue immunohistochemical stains on metastatic carcinoma of lymph node ( A1 ) with appropriate staining controls. 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 ER: Positive, >90%, Strong TX: Positive, 80%, Moderate Ki67 proliferative index: About 3% (Electronic Signature) Yan. Donita MD 05/27/2024 16:04 Addendum Reason Initial diagnosis remains unchanged. Add procedure result or create for billing purpose 07 Surgical Pathology Report - 05/24/2024 09:27 EDT - Auth (Verified) Final Diagnosis A. LEFT AXILLARY SENTINEL LYMPH NODE #1, HOT NOT BLUE, EXCISIONAL BIOPSY: - One of two lymph nodes positive for metastatic carcinoma with mucinous features with extranodal extension (1/2). - See Note in Comment. B. LEFT AXILLARY SENTINEL LYMPH NODE, HOT, EXCISIONAL BIOPSY: - Two of six lymph nodes positive for metastatic carcinoma with mucinous features with extranodal extension (2/6). Surgical Pathology Report Collected Date/Time: 05/16/2024 11:28 EDT Pathologist: Timothy Duckworth MD Received Date/Time: 05/17/2024 07:49 EDT APARNA PRATT, Roshan BRAUN MD, Roshan Horner Final Diagnosis C: LEFT BREAST, MASTECTOMY: - Invasive ductal carcinoma with mucinous features, grade 2, 1.4 cm in greatest dimension. - Ductal carcinoma in situ (DCIS), low nuclear grade, cribriform. - Lymphovascular invasion present. - Focal invasive carcinoma is present within 1 mm from inked inferior margin. - Resection margins negative for DCIS (5 mm from closest deep margin). - Fibrocystic change characterized by apocrine metaplasia, usual duct hyperplasia, adenosis, duct ectasia and stromal fibrosis with associated microcalcifications. - Prior procedure site change with cyst formation, fat necrosis and foreign-body giant cell reaction. - Skin and nipple uninvolved by DCIS or invasive carcinoma. - TNM Tumor Stage: pT1c, pN1a. - See Comment for Cancer Case Summary. (Electronic Signature) Yan. Donita MD 05/24/2024 09:27 Diagnosis Comment CANCER CASE SUMMARY - CAP PROTOCAL Procedure: Total mastectomy (including nipple and skin) Specimen Laterality: Left Tumor Site: 7:00 o'clock Tumor Size: Greatest dimension: 1.4 cm Additional dimension: 0.6 x 0.5 cm Histologic Type: Invasive ductal carcinoma with mucinous features. Histologic Grade: Glandular/Tubular Differentiation: --Score 3: <10% tumor area forming glandular/tubular structures Nuclear Pleomorphism: --Score 1: Mild nuclear pleomorphism Mitotic Rate: --Score 1: <4 mitoses per mm2 Overall Grade: --Grade 2: Scores of 5 of 9 Tumor Focality: --Single focus of invasive carcinoma Ductal Carcinoma In Situ: Present, negative for extensive intraductal component Size (Extent) of DCIS: --Estimated Size: 3 mm in greatest dimension --Number of Blocks with DCIS: 2 --Number of Blocks Examined: 12 Architectural Patterns: Cribriform Nuclear Grade: Grade I (Low) Necrosis: Not present Lobular Carcinoma In Situ: Not identified Tumor extension: Skin: Uninvolved by DCIS or invasive carcinoma Nipple: Uninvolved by DCIS or invasive carcinoma Skeleton Muscle: Not present Margins: Inferior margin : Within 1 mm from invasive carcinoma Margins uninvolved by DCIS, 5 mm from deep margin. Regional Lymph Nodes: Involved by tumor cells --Number of lymph nodes with macrometastases: 3 --Number of lymph nodes with micrometastases: 0 Surgical Pathology Report Collected Date/Time: 05/16/2024 11:28 EDT Pathologist: Timothy Duckworth MD Received Date/Time: 05/17/2024 07:49 NEELAM BRAUN MD, Roshan BRAUN MD, Roshan Horner Diagnosis Comment -- Number of lymph nodes with isolated tumor cells identified: 0 +Size of largest metastatic deposit: 6 mm +Extranodal Extension: Present --Number of Lymph Nodes Examined: (more content not included)...[facility]ike Medical CenterComment on above:Performed By: #### :[id number] #### [facility] [address] [place], [place] [id number] Addendum Reporton Addendum Report[address] [place] [address]- Surgical Pathology Report Collected Date/Time: 05/16/2024 11:28 EDT Pathologist: Timothy Duckworth MD Received Date/Time: 05/17/2024 07:49 JOSET APARNA RPATT, Roshan BRAUN MD, Roshan Horner 07 Addendum Report - 05/27/2024 16:04 EDT - Auth (Verified) Addendum To issue immunohistochemical stains on metastatic carcinoma of lymph node ( A1 ) with appropriate staining controls. 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 ER: Positive, >90%, Strong TX: Positive, 80%, Moderate Ki67 proliferative index: About 3% (Electronic Signature) Yan. Donita MD 05/27/2024 16:04 Addendum Reason Initial diagnosis remains unchanged. Add procedure result or create for billing purpose 07 Surgical Pathology Report - 05/24/2024 09:27 EDT - Auth (Verified) Final Diagnosis A. LEFT AXILLARY SENTINEL LYMPH NODE #1, HOT NOT BLUE, EXCISIONAL BIOPSY: - One of two lymph nodes positive for metastatic carcinoma with mucinous features with extranodal extension (1/2). - See Note in Comment. B. LEFT AXILLARY SENTINEL LYMPH NODE, HOT, EXCISIONAL BIOPSY: - Two of six lymph nodes positive for metastatic carcinoma with mucinous features with extranodal extension (2/6). C: LEFT BREAST, MASTECTOMY: - Invasive ductal carcinoma with mucinous features, grade 2, 1.4 cm in greatest dimension. - Ductal carcinoma in situ (DCIS), low nuclear grade, cribriform. - Lymphovascular invasion present. - Focal invasive carcinoma is present within 1 mm from inked inferior margin. - Resection margins negative for DCIS (5 mm from closest deep margin). - Fibrocystic change characterized by apocrine metaplasia, usual duct hyperplasia, adenosis, duct ectasia and stromal fibrosis with associated microcalcifications. - Prior procedure site change with cyst formation, fat necrosis and foreign-body giant cell reaction. - Skin and nipple uninvolved by DCIS or invasive carcinoma. - TNM Tumor Stage: pT1c, pN1a. - See Comment for Cancer Case Summary. (Electronic Signature) Yan. Donita MD 05/24/2024 09:27 Diagnosis Comment CANCER CASE SUMMARY - CAP PROTOCAL Procedure: Total mastectomy (including nipple and skin) Specimen Laterality: Left Surgical Pathology Report Collected Date/Time: 05/16/2024 11:28 EDT Pathologist: Timothy Duckworth MD Received Date/Time: 05/17/2024 07:49 EDT APARNA PRATT, Roshan BRAUN MD, Roshan Horner Diagnosis Comment Tumor Site: 7:00 o'clock Tumor Size: Greatest dimension: 1.4 cm Additional dimension: 0.6 x 0.5 cm Histologic Type: Invasive ductal carcinoma with mucinous features. Histologic Grade: Glandular/Tubular Differentiation: --Score 3: <10% tumor area forming glandular/tubular structures Nuclear Pleomorphism: --Score 1: Mild nuclear pleomorphism Mitotic Rate: --Score 1: <4 mitoses per mm2 Overall Grade: --Grade 2: Scores of 5 of 9 Tumor Focality: --Single focus of invasive carcinoma Ductal Carcinoma In Situ: Present, negative for extensive intraductal component Size (Extent) of DCIS: --Estimated Size: 3 mm in greatest dimension --Number of Blocks with DCIS: 2 --Number of Blocks Examined: 12 Architectural Patterns: Cribriform Nuclear Grade: Grade I (Low) Necrosis: Not present Lobular Carcinoma In Situ: Not identified Tumor extension: Skin: Uninvolved by DCIS or invasive carcinoma Nipple: Uninvolved by DCIS or invasive carcinoma Skeleton Muscle: Not present Margins: Inferior margin : Within 1 mm from invasive carcinoma Margins uninvolved by DCIS, 5 mm from deep margin. Regional Lymph Nodes: Involved by tumor cells --Number of lymph nodes with macrometastases: 3 --Number of lymph nodes with micrometastases: 0 -- Number of lymph nodes with isolated tumor cells identified: 0 +Size of largest metastatic deposit: 6 mm +Extranodal Extension: Present --Number of Lymph Nodes Examined: 8 --Number of [place] Lymph Nodes Examined: 8 Treatment Effect: No known presurgical therapy Lymph-Vascular Invasion: Present Dermal Lymph-Vascular Invasion: Not identified Pathologic Staging Classification (pTNM, AJCC 8th Edition) Primary Tumor (pT): pT1c: Tumor >10 mm, but ??? 20 mm in greatest dimension Regional Lymph Nodes (pN): pN1a: Metastases in 1 to 3 axillary lymph nodes (at least 1 tumor deposit larger than 2.0 mm) Microcalcifications: Present within fibrocystic change. Additional Pathologic Findings: Fibrocystic change Ancillary Studies: Left breast: Performed on prior left breast lumpectomy specimen (in [facility]) --ER: Positive --TX: Positive --HER-2: Negative (1+) Left axillary lymph node: Pending ER, TX, HER-2. Surgical Pathology Report Collected Gal (more content not included)...Normal [facility] HospitalComment on above:Performed By: #### CD:[id number] #### [facility] [address] [place], [place] [address]Qxwrvytn Pathology Reporton [id number] Pathology Report [facility] [address] [facility] [place] [address]- Surgical Pathology Report Collected Date/Time: 05/16/2024 11:28 EDT Pathologist: Timothy Duckworth MD Received Date/Time: 05/17/2024 07:49 EDT APARNA PRATT, Roshan BRAUN MD, Roshan Nguyen Surgical Pathology Report - 05/24/2024 09:27 EDT - Auth (Verified) Final Diagnosis A. LEFT AXILLARY SENTINEL LYMPH NODE #1, HOT NOT BLUE, EXCISIONAL BIOPSY: - One of two lymph nodes positive for metastatic carcinoma with mucinous features with extranodal extension (1/2). - See Note in Comment. B. LEFT AXILLARY SENTINEL LYMPH NODE, HOT, EXCISIONAL BIOPSY: - Two of six lymph nodes positive for metastatic carcinoma with mucinous features with extranodal extension (2/6). C: LEFT BREAST, MASTECTOMY: - Invasive ductal carcinoma with mucinous features, grade 2, 1.4 cm in greatest dimension. - Ductal carcinoma in situ (DCIS), low nuclear grade, cribriform. - Lymphovascular invasion present. - Focal invasive carcinoma is present within 1 mm from inked inferior margin. - Resection margins negative for DCIS (5 mm from closest deep margin). - Fibrocystic change characterized by apocrine metaplasia, usual duct hyperplasia, adenosis, duct ectasia and stromal fibrosis with associated microcalcifications. - Prior procedure site change with cyst formation, fat necrosis and foreign-body giant cell reaction. - Skin and nipple uninvolved by DCIS or invasive carcinoma. - TNM Tumor Stage: pT1c, pN1a. - See Comment for Cancer Case Summary. (Electronic Signature) Yan. Donita MD 05/24/2024 09:27 Diagnosis Comment CANCER CASE SUMMARY - CAP PROTOCAL Procedure: Total mastectomy (including nipple and skin) Specimen Laterality: Left Tumor Site: 7:00 o'clock Tumor Size: Greatest dimension: 1.4 cm Additional dimension: 0.6 x 0.5 cm Histologic Type: Invasive ductal carcinoma with mucinous features. Histologic Grade: Glandular/Tubular Differentiation: --Score 3: <10% tumor area forming glandular/tubular structures Nuclear Pleomorphism: --Score 1: Mild nuclear pleomorphism Mitotic Rate: --Score 1: <4 mitoses per mm2 Overall Grade: --Grade 2: Scores of 5 of 9 Tumor Focality: --Single focus of invasive carcinoma Ductal Carcinoma In Situ: Present, negative for extensive intraductal component Size (Extent) of DCIS: --Estimated Size: 3 mm in greatest dimension --Number of Blocks with DCIS: 2 Surgical Pathology Report Collected Date/Time: 05/16/2024 11:28 EDT Pathologist: Timothy Duckworth MD Received Date/Time: 05/17/2024 07:49 EDT APARNA PRATT, Roshan BRAUN MD, Roshan Horner Diagnosis Comment --Number of Blocks Examined: 12 Architectural Patterns: Cribriform Nuclear Grade: Grade I (Low) Necrosis: Not present Lobular Carcinoma In Situ: Not identified Tumor extension: Skin: Uninvolved by DCIS or invasive carcinoma Nipple: Uninvolved by DCIS or invasive carcinoma Skeleton Muscle: Not present Margins: Inferior margin : Within 1 mm from invasive carcinoma Margins uninvolved by DCIS, 5 mm from deep margin. Regional Lymph Nodes: Involved by tumor cells --Number of lymph nodes with macrometastases: 3 --Number of lymph nodes with micrometastases: 0 -- Number of lymph nodes with isolated tumor cells identified: 0 +Size of largest metastatic deposit: 6 mm +Extranodal Extension: Present --Number of Lymph Nodes Examined: 8 --Number of [place] Lymph Nodes Examined: 8 Treatment Effect: No known presurgical therapy Lymph-Vascular Invasion: Present Dermal Lymph-Vascular Invasion: Not identified Pathologic Staging Classification (pTNM, AJCC 8th Edition) Primary Tumor (pT): pT1c: Tumor >10 mm, but ??? 20 mm in greatest dimension Regional Lymph Nodes (pN): pN1a: Metastases in 1 to 3 axillary lymph nodes (at least 1 tumor deposit larger than 2.0 mm) Microcalcifications: Present within fibrocystic change. Additional Pathologic Findings: Fibrocystic change Ancillary Studies: Left breast: Performed on prior left breast lumpectomy specimen (in [facility]) --ER: Positive --TX: Positive --HER-2: Negative (1+) Left axillary lymph node: Pending ER, TX, HER-2. Note: Immunohistochemical stains (CK7, CK20, CDX-2. KYLAH-3, E-Cadherin, Synaptophysin, Chromogranin, WT-1, ER, TX, HER-2, Ki67) on the tissue block A1 are pending and will follow as an addendum. This case was discussed with Dr. Braun on 05/24/24 at 8:50 am. Clinical Information Pre-Op Diagnosis: Left breast cancer Procedure: Left breast mastectomy & sentinel node biopsy Post-Op Diagnosis: Left breast cancer Specimen(s) Received A: Left axilla sentinel lymph node #1, hot not blue B: Left axilla sentinel lymph node, hot C: Left breast tissue short = superior, long = lateral Gross Description A: Received in formalin labeled with patient name, number, and left axilla sentinel lymph node #1 hot not blue are two irregularly sh (more content not included)...[facility] HospitalComment on above:Performed By: #### [id number] #### [facility] [address] [place], [place] [address]Hyycwsogy Reporton [id number] ReportOperative Report SURGERY DATE: 05/16/2024 PREOPERATIVE DIAGNOSIS: Left breast cancer POSTOPERATIVE DIAGNOSIS: 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 Left breast reconstruction with tissue litharge supervisor and 450 cc medium height filled to 250 cc 2. Reinforcement of breast reconstruction with acellular dermal matrix ANESTHESIA: General ESTIMATED BLOOD LOSS: Minimal CLINICAL HISTORY: Adelina is a 63-year-old female who was scheduled for a left mastectomy. She desired immediate reconstruction. The patient was felt to be a good candidate for reconstruction with tissue litharge supervisor and acellular dermis. The patient was explained the risks, benefits, and alternatives of the procedure including but not limited to bleeding, infection, need for further surgery, asymmetry, scarring and wound-healing issues. The patient understood these risks and wished to proceed. PROCEDURE: The patient was prepped and draped in normal sterile fashion. First the left mastectomy was performed by Dr. Braun. After the mastectomy was performed, new instruments and drapes were applied. The pocket was irrigated with Irrisept and antibiotic and Betadine solution. The pectoralis muscle was elevated from lateral to medial. The inferior border was released with electrocautery. Hemostasis was obtained. Again the pocket was irrigated with Irrisept and antibiotic and Betadine solution. The inframammary fold was then transposed onto the anterior chest wall. An intercostal and local field block were performed with Exparel and 0.25% Marcaine with epinephrine. A 450 cc medium-height tissue litharge supervisor was selected. A medium contour perforated sheet of AlloDerm was selected. The AlloDerm was inset into the inframammary fold using 2-0 PDS sutures. The tissue litharge supervisor was then sutured using the inferior tab into the mid portion of the inferior pole using 2-0 PDS sutures. The tissue exp ashley was inflated to 250 cc. The superior portion of the AlloDerm was then set into the inferior portion of the pectoralis muscle using 2-0 PDS sutures. Two 15-Guamanian Best drains were then placed into the inframammary fold and in the retropectoral pocket. These were sewn in place using 4-0 nylon sutures. The pocket was again irrigated with the Irrisept and the Betadine and antibiotic solution. The skin was then closed in layers with 3-0 Vicryl Plus sutures. Steri-Strips, 4x4's, and Tegaderm were placed over the incision. Biopatch and CH2 Tegaderm were placed over the drain sites. The patient tolerated the procedure well and was transferred to the Recovery Room in stable condition. Miquel Bustamante M.D. ca Dictated: 05/16/2024 [id number] Transcribed: 05/17/2024NoMer[facility] HospitalComment on above:Result Comment: Electronically Signed By: Robby PRATT, Miquel Mayorga\.br\Date and Time Signed: 05/23/2415:45 EDTAmbulatory Visit Summaryon [id number] Visit SummaryAmbulatory Visit Summary LUCYARTIE ADELINA J :1960 Visit Date:05/21/2024 Ambulatory Visit Instructions Your Care Team Attending Physician - APARNA PRATT, Roshan Horner Primary Care Physician - Kishan PRATT, Michael Barker This Is Your Medications List alprazolam (alprazolam 0.25 mg Tab) aspirin (aspirin 81 mg Oral EC Tab) cyclobenzaprine (cyclobenzaprine 10 mg Tab) gabapentin (gabapentin 300 mg Cap) gabapentin (gabapentin 300 mg Cap) hydrochlorothiazide-losartan (Hyzaar 12.5 mg-50 mg Tab) Procedures Performed Mastectomy (05/16/2024), Excision of intradermal nevus (02/20/2024), Excision of breast mass (01/10/2024), Biopsy of breast (06/27/2023), Arthroscopy of knee (06/04/1995), Appendectomy, Cholecystectomy, Extraction of wisdom tooth, Foot, Simple dental extraction, DEAN BSO - Total abdominal hysterectomy and bilateral salpingo-oophorectomy, Tonsillectomy and adenoidectomy. What to do next Scheduled Follow-Up Appointments Monday 2:30 PM EDT With: Where: [address] [address]- Monday 3:30 PM EDT With: Kishan PRATT, Michael Barker Where: [address] [address]- Medications What How Much When Instructions Unchanged alprazolam (alprazolam 0.25 mg Tab) See instructions 1 tab tid prn Unchanged aspirin (aspirin 81 mg Oral EC Tab) 1 Tablets By Mouth Every day Unchanged cyclobenzaprine (cyclobenzaprine 10 mg Tab) 1 Tablets By Mouth At bedtime as needed for for spasm Unchanged gabapentin (gabapentin 300 mg Cap) 1 Capsules By Mouth 3 times a day Unchanged gabapentin (gabapentin 300 mg Cap) 1 Capsules By Mouth 2 times a day Unchanged hydrochlorothiazide-losartan (Hyzaar 12.5 mg-50 mg Tab) 1 Tablets By Mouth Every day Allergies Entex (Unknown) Skelaxin (Unknown) corticosteroids (Anaphylaxis) Problems Ongoing - Any problem that you are currently receiving treatment for. Abnormal EKG ADHD Anxiety Breast cancer of lower-inner quadrant of left female breast Complex regional pain syndrome of lower limb Dysuria Essential tremor Generalized anxiety disorder HTN (hypertension) Hx of osteoarthritis Idiopathic polyneuropathy Intradermal melanocytic nevus Mass of left breast Neoplasm of uncertain behavior of skin of back Neoplasm of uncertain behavior of skin of face Pre-op exam Scoliosis Historical - Any problem that you are no longer receiving treatment for. Polyneuropathy RSD lower limb Patient Survey You may receive a survey via text or e-mail asking about your office visit. Please share your experience with us by completing your survey. We appreciate your feedback and thank you for choosing us for your care. [facility] Noteon [id number] [facility] Office/Clinic NoteGeneral Surgery Office/Clinic Note Chief Complaint post operative follow up HPI Staff 5 day post operative follow up post left breast mastectomy with sentinel node biopsy. Reports intermittent discomfort; taking Percocet, Ibuprofen and Gabapentin. Denies bleeding or drainage. LUIS ARMANDO drains intact. Has follow up with Dr. Bustamante tomorrow. History of Present Illness 5 days s/p left skin-sparing mastectomy with sentinel lymph node biopsy and immediate reconstruction with tissue litharge supervisor per Dr Bustamante; doing well, minimal drain output; no ecchymoses; sore, taking Gabapentin, ibuprofen and Percocet; still requires occasional Percocet, and would like a refill; sees Dr Bustamante tomorrow for dressing change. Review of Systems ROS - Provider Constitutional: no fever, no sweats, no weight loss. Eyes: no glasses, no blurred vision, no visual loss. ENMT: no dentures, no hoarseness, no swallowing difficulties, no hearing loss, no ear infection(s),no nose bleeds. Cardiovascular: normal blood pressure, no [...] are negative or noncontributory. Physical Exam skin: left breast dressing intact; no erythema or ecchymoses, mild edema; jps with minimal serosanguinous drainage. Assessment/Plan 1. Breast cancer of lower-inner quadrant of left female breast (C50.312: Malignant neoplasm of lower-inner quadrant of left female breast) pathology pending; will call patient with results; call sooner if problems/questions. 2. Postoperative pain (G89.18: Other acute postprocedural pain) will refill Percocet; patient to use sparingly; increase ibuprofen to 600mg q 8 hours with food. Ordered: acetaminophen-oxycodone, 1 tab(s), Oral, q6hr, 12 tab(s), Refill(s) 0, [facility], 170, cm, 05/16/24 8:11:00 EDT, Height/Length Dosing, 67.9, kg, 05/16/24 8:11:00 EDT, Weight Dosing acetaminophen-oxycodone, 1 tab(s), Oral, q6hr Pain, 12 tab(s), Refill(s) 0, take with food or milk not to exceed 4000 mg acetaminophen per day, [facility], 170, cm, 05/16/24 8:11:00 EDT, Height/Length Dosing, 67.9, kg, 05/16/24 8:11:00 EDT, Weight Dosing Follow-up No qualifying data available Problem List/Past Medical History Ongoing Abnormal EKG ADHD Anxiety Breast cancer of lower-inner quadrant of left female breast Complex regional pain syndrome of lower limb Dysuria Essential tremor Generalized anxiety disorder HTN (hypertension) Hx of osteoarthritis Idiopathic polyneuropathy Intradermal melanocytic nevus Mass of left breast Neoplasm of uncertain behavior of skin of back Neoplasm of uncertain behavior of skin of face Postoperative pain Pre-op exam Scoliosis Historical Polyneuropathy RSD lower limb Procedure/Surgical History Mastectomy (05/16/2024), Excision of intradermal nevus (02/20/2024), Excision of breast mass (01/10/2024), Biopsy of breast (06/27/2023), Arthroscopy of knee (06/04/1995), Appendectomy, Cholecystectomy, Extraction of wisdom tooth, Foot, Simple dental extraction, DEAN BSO - Total abdominal hysterectomy and bilateral salpingo-oophorectomy, Tonsillectomy and adenoidectomy. Medications alprazolam 0.25 mg Tab, See Instructions aspirin 81 mg Oral EC Tab, 81 mg= 1 tab(s), Oral, Daily cyclobenzaprine 10 mg Tab, 10 mg= 1 tab(s), Oral, Bedtime, PRN, 3 refills gabapentin 300 mg Cap, 300 mg= 1 cap(s), Oral, BID, 3 refills gabapentin 300 mg Cap, 300 mg= 1 cap(s), Oral, TID Hyzaar 12.5 mg-50 mg Tab, 1 tab(s), Oral, Daily, 3 refills Percocet 5 mg-325 mg oral tablet, 1 tab(s), Oral, q6hr Allergies Entex (Unknown) Skelaxin (Unknown) corticosteroids (Anaphylaxis) Social History Alcohol - Medium Risk, 04/29/2024 Current, Wine, Daily, 04/29/2024 Substance Abuse Current, Marijuana, 3-5 times per week, 04/29/2024 Tobacco - Denies Tobacco Use, 04/29/2024 Former smoker, quit more than 30 days ago Tobacco Use:. Never Smokeless Tobacco Use:. Cigarettes, Household tobacco concerns: No., 05/14/2024 Family History Primary malignant neoplasm of lung: Mother. Immunizations Vaccine Date Status Comments influenza virus vaccine, inactivated - Not Given Patient Refuses influenza virus vac (more content not included)...[facility] CenterComment on above:Result Comment: Electronically Signed By: Roshan BRAUN MD\.br\Date and Time Signed: 05/21/24 16:15 EDTMain OR Intraoperative Recordon [id number] OR Intraoperative RecordMain OR Intraoperative Record IntraOp Document Type FT Summary Primary Physician: Miquel Bustamante MD Finalized Date/Time: 05/20/24 08:39:40 Pt. Name: ADELINA MIR/Sex: 1960 Female Med Rec #: [id number] Physician: Roshan BRAUN MD Financial #: [id number] Pt. Type: A Room/Bed: [place] [address] Admit/Disch: 05/16/24 08:03:16 - 05/16/24 16:00:00 Institution: Case Times FT Entry 1 Patient Times In Room 05/16/24 10:16:00 Out Room 05/16/24 13:27:00 Procedure Times Start 05/16/24 10:45:00 Stop 05/16/24 13:19:00 Anesthesia Times Start 05/16/24 10:16:00 Stop 05/16/24 13:27:00 Last Modified By: Kal Martins Ii 05/16/24 13:37:19 General Comments: 's left mastectomy incision at 1045.WILFREDO Ellison 05/20/24 Chart opened to review and send charges [facility] CSFA Case Attendance FT Entry 1 Entry 2 Entry 3 Case Attendee Gloria RIVERA, Sandoval Bustamante MD, Miquel BRAUN MD, Roshan Horner Role Performed Anesthesiologist Surgeon - Assist 1 Surgeon - Primary Adult Neurologist Time In 05/16/24 10:16:00 05/16/24 12:16:00 05/16/24 10:16:00 Time Out 05/16/24 13:27:00 05/16/24 13:27:00 05/16/24 12:25:00 Procedure MASTECTOMY MASTECTOMY MASTECTOMY SIMPLE(Left), SENTINEL SIMPLE(Left), SENTINEL SIMPLE(Left), SENTINEL NODE BIOPSY(Left), NODE BIOPSY(Left), NODE BIOPSY(Left) BREAST RECONSTRUCTION BREAST RECONSTRUCTION W/ PLACEMENT OF TI(Left) W/ PLACEMENT OF TI(Left) 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 , 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, 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 [phone] Last Modified By: Kal Martins Ii, Alfons Ii F Letrondo, Alfons Ii F 05/16/24 13:37:20 05/16/24 13:37:20 05/16/24 13:37:20 Entry 4 Entry 5 Entry 6 Case Attendee Bigg VILLALOBOS, Jonas Naik RN, Jose Alfredo Cano Role Performed Front Desk Person - Primary Front Desk Person - Primary Scrub - Primary Time In 05/16/24 10:16:00 05/16/24 10:16:00 05/16/24 10:16:00 Time Out 05/16/24 12:52:00 05/16/24 12:45:00 05/16/24 13:27:00 Procedure MASTECTOMY MASTECTOMY MASTECTOMY SIMPLE(Left), SENTINEL SIMPLE(Left), SENTINEL SIMPLE(Left), SENTINEL NODE BIOPSY(Left), NODE BIOPSY(Left), NODE BIOPSY(Left), BREAST RECONSTRUCTION BREAST RECONSTRUCTION BREAST RECONSTRUCTION W/ PLACEMENT OF TI(Left) W/ PLACEMENT OF TI(Left) W/ PLACEMENT OF TI(Left) 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 lunch from [phone]. from [phone] Last Modified By: Kal Martins Ii, Alfons Ii F Letrondo, Alfons Ii Adrián 05/16/24 13:37:20 05/16/24 13:37:20 05/16/24 13:37:20 Entry 7 Entry 8 Entry 9 Case Attendee Reinaldo JACQUES, Christina Castillo CST, Laura Tellez Role Performed Staff - Other ASSISTANT DIRECTOR OF RESIDENCE LIFE/SA Scrub - Relief Time In 05/16/24 10:16:00 05/16/24 10:16:00 05/16/24 11:21:00 Time Out 05/16/24 13:27:00 05/16/24 13:27:00 05/16/24 12:04:00 Procedure MASTECTOMY MASTECTOMY MASTECTOMY SIMPLE(Left), SENTINEL SIMPLE(Left), SENTINEL SIMPLE(Left), SENTINEL NODE BIOPSY(Left), NODE BIOPSY(Left), NODE BIOPSY(Left) BREAST RECONSTRUCTION BREAST RECONSTRUCTION W/ PLACEMENT OF TI(Left) W/ PLACEMENT OF TI(Left) Comments 2nd scrub at sterile 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 [phone] 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, 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, out to lunch [phone] Last Modified By: Kal Martins Ii, Alfons Ii F Letrondo, Alfons Ii Adrián 05/16/24 13:37:20 05/16/24 13:37:20 05/16/24 13:37:20 Entry 10 Entry 11 Entry 12 Case Attendee Kal Martins Ii, CST, Macie C Funni LABOR REPRESENTATIVEDebbi Role Performed Front Desk Person - Relief ASSISTANT DIRECTOR OF RESIDENCE LIFE/SA LABOR REPRESENTATIVE Time In 05/16/24 11:30:00 05/16/24 11:37:00 05/16/24 11:45:00 Time Out 05/16/24 13:27:00 05/16/24 12:18:00 05/16/24 12:20:00 Procedure MASTECTOMY MASTECTOMY MASTECTOMY SIMPLE(Left), SENTINEL SIMPLE(Left), SENTINEL SIMPLE(Left), SENTINEL NODE BIOPSY(Left) NODE BIOPSY(Left), NODE BIOPSY(Left), BREAST RECONSTRUCTION BREAST RECONSTRUCTION W/ PLACEMENT OF TI(Left) W/ PLACEMENT OF TI(Left) Comments lunch relief lunch relief Dr. Echols supervising, lunch relief Last Modified By: Kal Martins Ii, Alfons Ii F Letrondo, Alfons Ii F 05/16/24 13:37:20 05/16/24 13:37:20 05/16/24 13:37:20 Entry 13 Case Attendee Robby PRATT, Miquel Mayorga Role Performed Surgeon - Primary Time In 05/16/24 12:16:00 Time Out 05/16/24 13:27:00 Procedure BREAST RECONSTRUCTION W/ PLACEMENT OF TI(Left) Comments in to begin left breast reconstruction surgery Last Modified By: Kal Martins Ii 05/16/24 13:37:20 Perioperative Protocols FT Pre-Care Text: Implements protective measures prior to operative or invasive procedure, confirms identity before the operative or invasive procedure, verifies operative procedure, surgical site, and laterality Entry 1 Procedure(s) MASTECTOMY Patient Identity Birthday, ID Band SIMPLE(Left), SENTINEL Verified (select at Check, Patient NODE BIOPSY(Left) least 2): Participation Consents / H and P Anesthesia Consent, Operative Site Present Verified H&P, (more content not included)...[facility] Operative Reporton [id number] ReportOperative Report Patient: ADELINA MIR Age: 63 years Sex: Female : 1960 Associated Diagnoses: None Author: Roshan BRAUN MD Postoperative Information Procedure: left breast skin sparing mastectomy with sentinel lymph node biopsy Preoperative Diagnosis: Breast cancer of lower-inner quadrant of left female breast ([id number] C50.312, Working, Medical). Postoperative Diagnosis: Breast cancer of lower-inner quadrant of left female breast ([id number] C50.312, Working, Medical). Performed by: Roshan BRAUN MD. Findings: Synoptic Report [place] Node Biopsy Operation performed for curative intent? Yes Tracer(s) used to identify sentinel nodes in the upfront surgery (non- neoadjuvant) setting (select all that apply): blue dye; radiolabeled sulfur colloid_ Tracer(s) used to identify sentinel nodes in the neoadjuvant setting (select all that apply): NA _ All nodes (colored or non-colored) present at the end of a dye-filled lymphatic channel were removed: yes_ All significantly radioactive nodes were removed: _ yes All palpably suspicious nodes were removed: _ yes Biopsy-proven positive nodes marked with clips prior to chemotherapy were identified and removed: _ NA . Specimens Removed: left breast and sentinle lymph nodes. Estimated Blood Loss: 12 ml. Complications: None. Anesthesia type: General.[facility] CenterComment on above: Result Comment: Electronically Signed By: Roshan BRAUN MD\Date and Time Signed: 05/17/24 07:07 EDTOperative ReportOperative Report SURGERY DATE: 05/16/2024 PREOPERATIVE DIAGNOSIS: Left breast cancer POSTOPERATIVE DIAGNOSIS: Left breast cancer OPERATION: Skin-sparing left mastectomy with sentinel lymph node biopsy ANESTHESIA: General with laryngeal mask airway ESTIMATED BLOOD LOSS: Less than 20 mL INDICATIONS AND CONSENT: The patient is a 63-year-old female diagnosed with left breast cancer in the left lower inner quadrant involving the edge of the nipple- areolar complex as well as major duct with nipple drainage. Therefore, mastectomy was indicated. She did wish to have immediate reconstruction which will be performed by Dr. Bustamante. Indications, risks, benefits, and alternatives of proceeding with skin-sparing left breast mastectomy as well as sentinel node biopsy for staging were explained extensively to the patient including risks of bleeding, infection, scarring, pain, nerve injury, arm swelling, blood clot, pulmonary embolus, heart attack, anesthetic complications, or need forfurther surgery. All of her questions were answered and informed consent was obtained. PROCEDURE: The patient was brought to the Operating Room and placed in the supine position. She hadpreviously undergone sentinel lymph node injection down in Nuclear Medicine. Half-strength methylene blue was injected in the area of the nipple-areolar complex in the lower inner quadrant, a total of 3 cc. The patient was then prepped and draped in the usual sterile fashion. A curvilinear incisionwas made around the nipple-areolar complex on the left encompassing the previous scar as well. It was carried down through the subcutaneous tissue using electrocautery. Yoshi clamps were then placed on the superior skin flap, and the flap was raised using electrocautery. It was extended medially tothe sternum and up to the clavicle as well as to the axilla to the end of the pectoralis major. Theanterior flap was then raised down to the inframammary crease which had been marked. Dissection wasthen begun superomedially where the breast tissue and pectoralis fascia were removed from the pectoralis major. Dissection was then continued inferiorly and laterally where the breast and fascia wereremoved from the chest wall. Hemostasis was achieved with electrocautery as well as with 3-0 Vicrylsutures. This was dissected down to the axilla where the sentinel node was then performed. The clavipectoral fascia was incised. The probe was then used to identify areas of increased activity. Within the upper mid axilla there were two areas of increased activity that were isolated and dissected with the Harmonic scalpel. Ex vivo had some increased counts. There was no definite lymph node appreciated but possibly a small lymph node in the areas of fat that were removed. These were sent as hot and not blue. Lower in the mid axilla there was noted to be a cluster of nodes that had markedly increased activity as well as blue dye. These were dissected free using the Harmonic scalpel. Ex vivo had increased counts as well as evidence of blue dye. There were several lymph nodes in this cluster.These were sent off as hot and blue. There were no other blue nodes noted. There were no other areas of increased activity within the axilla on re-probing. The area was irrigated. The remaining axillary attachments of the tail of the breast were removed with electrocautery, and vessels were controlled with 3-0 Vicryl suture ligatures. The specimen was sent off with a short stitch marked superiorly on the nipple-areolar complex and long stitch laterally. The sentinel nodes were sent off separately. The area was then copiously irrigated with water and then saline. Hemostasis was achieved with electrocautery as well as 3-0 Vicryl sutures. Once this was completed the case was turned over to Dr. Bustamante for immediate reconstruction. Roshan Braun M.D. [facility] ca Dictated: 05/16/2024 [id number] Transcribed: 05/17/2024 cc:Michael Holley M.D.[facility] CenterComment on above:Result Comment: Electronically Signed By: APARNA PRATT, Roshan Hargrove\Date and Time Signed: 05/17/24 06:55 EDTDischarge Instructionson [id number] Instructions Discharge Instructions ADELINA MIR :1960 Visit Date:05/16/2024 Inpatient Discharge Instructions Your Care Team Admitting Physician - Roshan BRAUN MD Referring Physician - APARNA PRATT, Roshan Horner Your Diagnosis Acute postoperative pain Breast cancer of lower-inner quadrant of left female breast Tests Performed Pathology Tissue Exam -- Results Pending -- NM Lymphoscintigraphy -- Results Pending -- Please visit your patient portal for your results or contact your primary care physician. Discharge Vitals Temperature (Temporal Artery) 36.3 ?C Heart Rate (Monitored) 113 Respiratory Rate 19 Blood Pressure 116/74 What to do next Instructions From Your Doctor Event Name Event Result Discharge Activity Arrange for a responsible adult supervision for 24 hours Discharge Restrictions No driving, Do not operate machinery or tools, Do not make important decisions for 24 hours, Do notdrink alcoholic beverages for 24 hours Discharge Diet(s) Regular Call Your Doctor For Persistent or heavy bleeding, Temperature above 101.5 degrees, Redness, swelling, or pus at operative site, Severe pain at the operative site, Persistent vomiting Wound Care Do not remove dressing, Keep incision dry Discharge Instructions Discharge Instructions Previously Scheduled Follow-Up Appointments Monday 2:30 PM EDT With: Where: [address] [address]- Monday 3:30 PM EDT With: Kishan PRATT, Michael Barker Where: [address] [address]- New Follow Up Appointments after Discharge Follow Up with Miquel Bustamante When: Comments: Keep scheduled appointment Where: [address] [place] [address]- Business (1) Follow Up with Roshan BRAUN When: Within 5 to 7 days Comments: Call for any problems. Where: [address], [address] [address]- Business (1) Medications What How Much When Why Instructions Next Dose New acetaminophen-oxycodone (acetaminophen-oxycodone 325 mg-5 mg Tab) 1 Tablets By Mouth Every 6 hours as needed for Pain Acute postoperative pain take with food or milk not to exceed 4000 mg acetaminophen per day Pickup at [facility] Changed gabapentin (gabapentin 300 mg Cap) 1 Capsules By Mouth 2 times a day Changed gabapentin (gabapentin 300 mg Cap) 1 Capsules By Mouth 3 times a day [facility] Unchanged alprazolam (alprazolam 0.25 mg Tab) See instructions 1 tab tid prn Unchanged aspirin (aspirin 81 mg Oral EC Tab) 1 Tablets By Mouth Every day Unchanged cyclobenzaprine (cyclobenzaprine 10 mg Tab) 1 Tablets By Mouth At bedtime as needed for for spasm Unchanged hydrochlorothiazide-losartan (Hyzaar 12.5 mg-50 mg Tab) 1 Tablets By Mouth Every day Pharmacy Information [facility]: [address], [place] [id number] [phone] Allergies Entex (Unknown) Skelaxin (Unknown) corticosteroids (Anaphylaxis) Devices Implanted/Removed This Visit Notice: You have devices implanted this visit that may not be MRI compatible. 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 Your health care provider may also give you more specific instructions. If you have problems or questions, contact your health care provider. What can I expect after the procedure? After the procedure, it is common to have: ? Pain, soreness, or tenderness. ? Numbness. ? Swelling. ? Neuropathic (nerve) pain in the chest wall, armpit, or arm. ? Stiffness in the arm or shoulder. ? Feelings of stress, sadness, or depression. If the lymph nodes under your arm were removed, you may have arm swelling, weakness, or numbness onthe same side of your body as your surgery. Follow these instructions at home: Incision care ? Follow instructions from your health care provider about how to take care of your incision. Make sure you: ? Wash your hands with soap and water for at least 20 seconds before you change your bandage (dressing). If soap and water are not available, use hand nurse's assistant. ? Change your dressing as told by your health care provider. ? Leave stitches (sutures), skin glue, or adhesive strips in place. These skin closures may need to stay in place for 2 weeks or longer. If adhesive strip edges start to loosen and curl up, you may trim the loose edges. Do not remove adhesive strips completely unless your health care provider tells you to do that. ? Check your inci (more content not included)...[facility] Comment on above:Result Comment: Electronically Signed By: Naa VILLALOBOS, Alee Mckeon\.br\Date and Time Signed: 05/16/24 13:47 EDTInpatient Patient Summaryon [id number] Patient SummaryInpatient Patient Summary [address] [address] [facility] Clinical Discharge Instructions PERSON INFORMATION Name: ADELINA MIR PHYSICIANS Admitting Physician: Roshan BRAUN MD Attending Physician: Roshan BRAUN MD PCP: Michael Holley MD Discharge Diagnosis: Breast cancer of lower-inner quadrant of left female breast Comment: PATIENT EDUCATION INFORMATION Instructions: Medication Leaflets: Follow up: With: Address: When: Miquel Bustamante [address] [place] [address] [address] [place] [address] Business (1) Comments: Keep scheduled appointment With: Address: When: Roshan BRAUN [address] [place] [address] [address] Business (1) Within 5 to 7 days Comments: Call for any problems. Type Location Start Finish [facility] Medicare Wellness Initial [facility] 06/11/2024 2:30 PM 06/11/2024 3:30 PM Confirmed FM Open [facility] 06/11/2024 3:30 PM 06/11/2024 3:45 PM Confirmed MEDICATION LIST [facility], [address] [place], [place] [id number], [phone] acetaminophen-oxycodone (acetaminophen-oxycodone 325 mg-5 mg Tab) 1 Tablets By Mouth every 6 hours as needed Pain. take with food or milk not to exceed 4000 mg acetaminophen per day. Refills: 0. Medications to Continue Taking That Have Changed [facility], [address] [place], [place] [id number], [phone] START: gabapentin (gabapentin 300 mg Cap) 1 Capsules By Mouth 3 times a day. Refills: 0. Other Medications START: gabapentin (gabapentin 300 mg Cap) 1 Capsules By Mouth 2 times a day. Refills: 3. Medications to Continue with No Changes Other Medications alprazolam (alprazolam 0.25 mg Tab) 1 tab tid prn. Refills: 0. aspirin (aspirin 81 mg Oral EC Tab) 1 Tablets By Mouth every day. cyclobenzaprine (cyclobenzaprine 10 mg Tab) 1 Tablets By Mouth at bedtime as needed for spasm. Refills: 3. hydrochlorothiazide-losartan (Hyzaar 12.5 mg-50 mg Tab) 1 Tablets By Mouth every day. Refills: 3. Comment:[facility] Recordon [id number] OR PACU I RecordMain OR PACU I Record PACU Phase I Document Type FT Summary Primary Physician: Miquel Bustamante MD Finalized Date/Time: 05/16/24 14:23:33 Pt. Name: MICHAEL ADELINA Cain./Sex: 1960 Female Med Rec #: [id number] Physician: Roshan BRAUN MD Financial #: [id number] Pt. Type: A Room/Bed: [facility]/ Admit/Disch: 05/16/24 08:03:16 - Institution: Case Times PACU I FT Pre-Care Text: Identifies barriers to communication and implements measures to provide psychological support Develops individualized plan of care, and ensures continuity of care Maintains patient's dignity and privacy, and maintains patient confidentiality Identifies and reports philosophical, cultural, and spiritual beliefs and values Identifies individual values and wishes concerning care Implements aseptic technique, and administers prescribed antibiotic therapy and immunizing agents as ordered Evaluates postoperative tissue perfusion Implements thermoregulation measures, and monitors body temperature Evaluates postoperative respiratory status Evaluates postoperative cardiac status Evaluates postoperative neurological status Assesses pain control, collaborated in initiating patient-controlled analgesia and implements alternative methods of pain control Verifies allergies, administers prescribed medications and solutions, evaluates response to medications Entry 1 In PACU I 05/16/24 13:29:00 Discharge from PACU 05/16/24 13:59:00 I Outcomes Met? Yes Last Modified By: Shaneka Mariano I 05/16/24 14:23:18 Post-Care Text: The patient demonstrates knowledge of the expected response to the operative or invasive procedure The patient's care is consistent with the individualized perioperative plan of care The patient's rightto privacy is maintained The patient's value system, lifestyle, ethnicity, and culture are considered, respected, and incorporated into the perioperative plan of care The patient participates in decisions affecting his or her perioperative plan of care The patient is free from signs and symptoms of infection The patient has wound/tissue perfusion consistent with or improved from baseline levels established preoperatively The patient is at or returning to normothermia at the conclusion of the immediate postoperative period The patient's respiratory function is consistent with or improved from baseline levels established preoperativelyThe patient's cardiovascular status is consistent with or improved from baseline levels established preoperatively The patient's cardiovascular status is consistent with or improved from baseline levels established preoperatively The patient demonstrates and/or reports adequate pain control throughout the perioperative period The patient received appropriate medication(s), safely administered during the perioperativeperiod Acuity Level PACU I FT Entry 1 Start Time 05/16/24 13:29:00 Stop Time 05/16/24 13:59:00 Acuity Level Acuity Level I Last Modified By: Shaneka Mariano I 05/16/24 14:23:29 Finalized By: Shaneka Mariano I Document Signatures Signed By: Shaneka Mariano I 05/16/24 14:23[facility] PAC[facility] II Recordon [id number] OR PACU II RecordMain OR PACU II Record PACU Phase II Document Type FT Summary Primary Physician: Miquel Bustamante MD Finalized Date/Time: 05/16/24 15:52:26 Pt. Name: ADELINA MIR D.O.B./Sex: 1960 Female Med Rec #: [id number] Physician: Roshan BRAUN MD Financial #: [id number] Pt. Type: A Room/Bed: [place] [address] Admit/Disch: 05/16/24 08:03:16 - Institution: Case Times PACU II FT Pre-Care Text: Identifies barriers to communication and implements measures to provide psychological support and determines knowledge level Develops individualized plan of care, and ensures continuity of care Maintains patient's dignity and privacy, and maintains patient confidentiality Identifies and reports philosophical, cultural, and spiritual beliefs and values Identifies individual values and wishes concerning care administers prescribed antibiotic therapy and immunizing agents as ordered, Evaluates postoperative tissue perfusion Implements thermoregulation measures, and monitors body temperature Evaluates postoperative respiratory statusEvaluates postoperative cardiac status Evaluates postoperative neurological status Assesses pain control, collaborated in initiating patient-controlled analgesia and implements alternative methods of pain control Verifies allergies, administers prescribed medications and solutions, evaluates response to medications Entry 1 In PACU II 05/16/24 14:00:00 Discharge from PACU 05/16/24 16:00:00 II Outcomes Met? Yes Last Modified By: Alee Jacome RN 05/16/24 15:52:25 Post-Care Text: The patient demonstrates knowledge of the expected response to the operative or invasive procedure The patient's care is consistent with the individualized perioperative plan of care The patient's rightto privacy is maintained The patient's value system, lifestyle, ethnicity, and culture are considered, respected, and incorporated into the perioperative plan of care The patient participates in decisions affecting his or her perioperative plan of care. The patient is free from signs and symptoms of infection The patient has wound/tissue perfusion consistent with or improved from baseline levels established preoperatively The patient is at or returning to normothermia at the conclusion of the immediate postoperative period The patient's respiratory function is consistent with or improved from baseline levels established preoperativelyThe patient's cardiovascular status is consistent with or improved from baseline levels established preoperatively The patient's neurological status is consistent with or improved from baseline levels established preoperatively The patient demonstrates and/or reports adequate pain control throughout the perioperative period The patient received appropriate medication(s), safely administered during the perioperativeperiod Finalized By: Alee Jacome RN Document Signatures Signed By: Alee Jacome RN 05/16/24 15:52No[facility] Preoperative Recordon [id number] OR Preoperative RecordMain OR Preoperative Record PreOp Document Type FT Summary Primary Physician: Roshan BRAUN MD Finalized Date/Time: 05/16/24 11:21:05 Pt. Name: ADELINA MIR /Sex: 1960 Female Med Rec #: [id number] Physician: Roshan BRAUN MD Financial #: [id number] Pt. Type: A Room/Bed: [place] [address] Admit/Disch: 05/16/24 08:03:16 - Institution: Case Times PreOp FT Pre-Care Text: Verifies consent for planned procedure, identifies individual values and wishes concerning care, includes family members in perioperative teaching Entry 1 Patient Times. In Pre Surgery 05/16/24 08:05:00 Out Pre Surgery 05/16/24 10:14:00 Outcomes Met? Yes Last Modified By: Jonas Pride RN 05/16/24 11:21:04 Post-Care Text: The patient participates in decisions affecting his or her perioperative plan of care Finalized By: Jonas Pride RN Document Signatures Signed By: Jonas Pride RN 05/16/24 11:21[facility] Lymphoscintigraphyon [id number] LymphoscintigraphyExam Date/Time: 05/16/2024 09:40 EDT Reason for Exam: Breast cancer Report IMPRESSION: AREA OF ACTIVITY UPPER OUTER LEFT BREAST. CLINICAL HISTORY: Breast cancer. COMMENT: The procedure was discussed with the patient. Using sterile technique, a total of 563 uCi of 99m Technetium Lymphoseek were injected subdermally at 4 periareolar sites in the left breast. An image was obtained 15 minutes post radionuclide injection. In addition to activity associated with injection sites, there is an area of activity in the left breast superior and lateral to the injection sites. No activity is noted at the left axilla Ordering Provider: Roshan BRAUN FINAL REPORT Dictated: 05/16/2024 1:59 pm Mio Meeks, Corona Britton Signed (Electronic Signature): 05/16/2024 1:59 pm Signed by: Corona Lieberman M.D. Transcribed by: ROSMERY Technologist: CALLIE Technical Comments Dose (mCi Tc99m Lymphoseek): 0.6NormalEcu Healther Thomas [facility] Fin[facility] CenterOutpatient Surgery Discharge Instructionon [id number] Surgery Discharge InstructionOutpatient Surgery Discharge Instruction [place] [id number] Patient Discharge Instructions PERSON INFORMATION Name: ADELINA MIR Date of : 1960 Current Date: 05/16/2024 12:35:59 PHYSICIANS Admitting Physician: Roshan BRAUN MD Discharge Diagnosis: Breast cancer of lower-inner quadrant of left female breast ADELINA MIR has been given the following list of follow-up instructions, prescriptions, and patient education materials: PATIENT FOLLOW-UP INFORMATION Diet: Regular Discharge Activity: Arrange for a responsible adult supervision for 24 hours Discharge Restrictions: No driving, Do not operate machinery or tools, Do not make important decisions for 24 hours, Do not drink alcoholic beverages for 24 hours Call Your Doctor For: Persistent or heavy bleeding, Temperature above 101.5 degrees, Redness, swelling, or pus at operative site, Severe pain at the operative site, Persistent vomiting Wound Care Instructions: Do not remove dressing, Keep incision dry IF UNABLE TO CONTACT YOUR PHYSICIAN AND YOU FEEL IT IS AN EMERGENCY, GO TO THE NEAREST EMERGENCY ROOM OR CALL 911 IMICHAEL JUDITH J, have received the attached patient education materials/instructions and have verbalized understanding: May we do a follow up call? Yes No I was present when discharge instructions were given Patient Signature Date Clinican/Nurse Signature Date Follow up: With: Address: When: Miquel Bustamante [address] [place] [address] Business (1) Comments: Keep scheduled appointment With: Address: When: Roshan APARNA Sarah [address], [address], [facility] [address] [place] [address] Business (1) Within 5 to 7 days Comments: Call for any problems. Type Location Start [facility] Medicare Wellness Initial [facility] 06/11/2024 2:30 PM 06/11/2024 3:30 PM Confirmed FM Open [facility] [place] 06/11/2024 3:30 PM 06/11/2024 3:45 PM Confirmed Pharmacy Information: You may receive a survey from Dinora Johnson asking you to rate your care experience. Your feedback is important and will help us understand what we do well and how we can improve the quality of care we provide to you, your loved ones and our community. It?s an honor to serve you. Thank you for choosing [facility] HERE ARE THE MEDICATION CHANGES THAT OCCURRED DURING YOUR HOSPITAL STAY New [facility], [address] [facility], [place] [id number], [phone] acetaminophen-oxycodone (acetaminophen-oxycodone 325 mg-5 mg Tab) 1 Tablets By Mouth every 6 hours as needed Pain. take with food or milk not to exceed 4000 mg acetaminophen per day. Refills: 0. Medications to Continue Taking That Have Changed [facility], [address] [place], [place] [id number], [phone] START: gabapentin (gabapentin 300 mg Cap) 1 Capsules By Mouth 3 times a day. Refills: 0. Other Medications START: gabapentin (gabapentin 300 mg Cap) 1 Capsules By Mouth 2 times a day. Refills: 3. Medications to Continue with No Changes Other Medications alprazolam (alprazolam 0.25 mg Tab) 1 tab tid prn. Refills: 0. aspirin (aspirin 81 mg Oral EC Tab) 1 Tablets By Mouth every day. cyclobenzaprine (cyclobenzaprine 10 mg Tab) 1 Tablets By Mouth at bedtime as needed for spasm. Refills: 3. hydrochlorothiazide-losartan (Hyzaar 12.5 mg-50 mg Tab) 1 Tablets By Mouth every day. Refills: 3. PATIENT EDUCATION INFORMATION Instructions: Medication Leaflets:[facility] CenterURINALYSISOrdered By: SYSTEM SYSTEM on [id number] Auto Ql (U)Trace /HPFNormalTrace/HPFWAGONER [facility] [place] UA Auto SSBilirubin Ql (U)NegativeNormalNegativemg/dLHOLY FAMILY [facility]ITAL Auto SSClarity (U) Clear (05/16/24 11:07 AM)NormalClearFTULSA ER & HOS[facility]ITAL [facility] [place] UA Auto SSColor (U)Colorless 1 *ABN* (05/16/24 11:07 AM)Invalid Interpretation CodeYellowWAGONER COMMUNITY HOSP[facility] [place] UA Auto SSComment on above:Interpretive Data: Microscopic readings are only performed on those samples that meet specific criteria set forth by [facility].Epithelial cells.squamous Auto (Urine sed) [#/Area]0-2 graded/HPF Invalid Interpretation CodeWAGONER COMMUNITY [facility]OSP[facility] [place] UA Auto SSGlucose Ql (U)NegativeNormal Negativemg/dLHOLY FAMILY HOSPITAL Auto SSHemoglobin Auto test strip (U) [Mass/Vol]Negative NormalNegativemg/dLWAGONER [facility] [place]A Auto SSKetones Auto test strip Ql (U)NegativeNormal Negativemg/dLWAGONER [facility] [place] UA Auto SSLeukocyte esterase Auto test strip Ql (U)Negative NormalNegativeLeu/uLWAGONER COMMUNITY [facility]OSP[facility] [place] UA Auto SSMucus Auto Ql (U)NegativeNormal Negativegraded/LPFFTULSA ER & HOSPITAL [facility] [place] UA Auto SSNitrite Auto test strip Ql (U)1+ mg/dLInvalid Interpretation CodeNegativemg/dLWAGONER COMM[facility]ITY [facility] [place] UA Auto SSpH (U)6.5 *NA* (05/16/24 11:07 AM)Invalid Interpretation Code5.0 - 9.0[facility] Auto SSProtein Ql (U)NegativeNormalNegativemg/dLWAGONER [facility]ITY [facility] [place] UA Auto SSSpecific gravity (U) [Rel density] 1.006 *NA* (05/16/24 11:07 AM)Invalid Interpretation Code1.005 - 1.030[facility] UA Auto SS Urobilinogen (U) [Mass/Vol]NegativeNormalNegativemg/dLWAGONER [facility]ITY [facility] [place] UA Auto SSWBC Auto (Urine sed) [#/Area]0-5 graded/HPFNormal0-5graded/HPFWAGONER [facility] [place] UA Auto SSURINALYSIS Ordered By: Jonas Pride on [id number] Spec DescFoley (05/16/24 11:07 AM)NormalWAGONER COMMUNITY [facility]OSP[facility] [place] UA Auto SSUrinalysis with Microon 05-16-2024 Bacteria Auto Ql (U)TraceNormalTraceMercy Memorial HospitalComment on above: Performed By: #### [id number] ####[address]Bilirubin Ql (U)NegativeNormalNegativeMercy Memorial HospitalComment on above:Performed By: #### [id number] ####[address]Clarity (U)ClearNormal ClearMercy Memorial HospitalComment on above:Performed By: #### [id number] ####[address]Color (U)ColorlessAbnormalYellowMercy Memorial HospitalComment on above:Result Comment: Microscopic readings are only performed on those samples that meet specific criteria set forth by [facility].Performed By: #### [id number] ####[address]Epithelial cells.squamous Auto (Urine sed) [#/Area]0-2Invalid Interpretation CodeMercy Memorial HospitalComment on above:Performed By: #### [id number] ####[place] [address], [id number] Ql (U)NegativeNormalNegativeMercy Memorial HospitalComment on above:Performed By: #### [id number] ####[facility] [address]Norwalk, [place]Qwahoqmmds Auto test strip (U) [Mass/Vol]NegativeNormalNegativeMercy Memorial HospitalComment on above: Performed By: #### [id number] ####[facility] [address]Norwalk, [place]Duasccr Auto test strip Ql (U)NegativeNormalNegative [facility] HospitalComment on above:Performed By: #### [id number] ####[facility] [address]Nor[address], [place] Leukocyte esterase Auto test strip Ql (U)NegativeNormalNegativeMercy Memorial HospitalComment on above:Performed By: #### [id number] ####[facility] [address]Nor[address], [place]Ilmcr Auto Ql (U) NegativeNormalNegativeMercy Memorial HospitalComment on above:Performed By: #### [id number] ####[facility] [address]Nor[address], [place]Oyeqxjy Auto test strip Ql (U)1+ mg/dLAbnormalNegWayne HealthCare Main CampusComment on above:Performed By: #### [id number] ####[facility] [address]Nor[address], [place]hF (U)6.5 [pH] Invalid Interpretation Code5.0-9.0Mercy Memorial HospitalComment on above: Performed By: #### [id number] ####[facility] [address]Nor[address], [place]Ujxrfyf Ql (U)NegativeNormalNegativeMercy Memorial HospitalComment on above:Performed By: #### [id number] ####[facility] [address] [facility], [address]Xbvwojea gravity (U) [Rel density]1.006Invalid Interpretation Code1.005-1.030Mer[facility] Memorial HospitalComment on above:Performed By: #### [id number] ####[facility] [address] [facility], [id number] (U) [Mass/Vol] NegativeNormalNegativeMercy Memorial HospitalComment on above:Performed By: #### [id number] ####[facility] [address] [facility], [id number] Auto (Urine sed) [#/Area]4-8Wmbwba7-4Tnopmi Thomas B. Finan CenterComment on above:Performed By: #### [id number] ####[place] [address] [facility], [id number] of Urine collection method FoleyNormalMercy Memorial HospitalComment on above:Performed By: #### [id number] ####[facility] [address] [facility], [place] [address]Tcajgt Medicine Office/Clinic Noteon [id number] Medicine Office/Clinic NoteFawesson memorial hospital Medicine Office/Clinic Note HPI Staff Adelina is a 63 year old female presenting for 3 month follow up anxiety/med eval Follow up for Mental Status: Medication adherence- Yes, takes medication as prescribed Medication refill needed: no Suicidal thoughts-Not at this time Most recent JOHN: 9 Most recent PHQ: 0 Opioids prescribed: alprazolam 0.25mg tid prn Medication agreement UTD: recent 11/27/23 will update today Urine drug screen performed: yes 07/24/23 UTD_ History of Present Illness - See staff HPI Review of Systems PHQ Score Initial Depression Screen Score: 0 SCORE Physical Exam Vitals & Measurements T: 36.8 ?C(Temporal Artery) HR: 60(Peripheral) RR: 16 BP: 120/76 SpO2: 98% HT: 67 in HT: 170 cm WT: 67.9 kg WT: 149.38 lb BMI: 23.49 General: alert, no acute distress ENMT: oral mucosa moist, Cardiovascular: regular rate and rhythm, normal peripheral perfusion Respiratory: Lungs CTA, respirations non labored Extremities: no deformity, no trauma Neurological: oriented x 4, LOC appropriate for age, CN II-XII intact, motor strength equal & normal bilaterally, speech normal Abdomen: Soft, Nontender, Non-distended, + BS Assessment/Plan 1. Anxiety (F41.9: Anxiety disorder, unspecified) - Wants to make sure she has her meds for her surgery. - No need for refill today. - Will do CSC - Follow up in 3 months Ordered: Body Mass Index (BMI) documented 3008F Current tobacco non-user 1036F Depression Screening Negative 3352F Most recent diastolic blood pressure <80 mm Hg 3078F Systolic BP <130 mm Hg (Most Recent) 3074F 2. Generalized anxiety disorder (F41.1: Generalized anxiety disorder) - As above Ordered: Body Mass Index (BMI) documented 3008F Current tobacco non-user 1036F Depression Screening Negative 3352F Most recent diastolic blood pressure <80 mm Hg 3078F Systolic BP <130 mm Hg (Most Recent) 3074F 3. HTN (hypertension) (I10: Essential (primary) hypertension) - At goal. - Continue as before Ordered: Body Mass Index (BMI) documented 3008F Current tobacco non-user 1036F Depression Screening Negative 3352F Most recent diastolic blood pressure <80 mm Hg 3078F Systolic BP <130 mm Hg (Most Recent) 3074F 4. 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 Ordered: Body Mass Index (BMI) documented 3008F Current tobacco non-user 1036F Depression Screening Negative 3352F Most recent diastolic blood pressure <80 mm Hg 3078F Systolic BP <130 mm Hg (Most Recent) 3074F 5. Former smoker (Z87.891: Personal history of nicotine dependence) - Please continue to not smoke. Ordered: Body Mass Index (BMI) documented 3008F Current tobacco non-user 1036F Depression Screening Negative 3352F Most recent diastolic blood pressure <80 mm Hg 3078F Systolic BP <130 mm Hg (Most Recent) 3074F Orders: alprazolam, See Instructions, 1 tab tid prn, # 90 tab(s), Refills(s) 0, Pharmacy: [facility], 170, cm, 05/14/24 14:25:00 EDT, Height/Length Dosing, 67.9, kg, 05/14/24 14:25:00 EDT, Weight Dosing gabapentin, 300 mg = 1 cap(s), Oral, BID, # 180 cap(s), Refills(s) 3, Pharmacy: [facility], 170, cm, 05/14/24 14:25:00 EDT, Height/Length Dosing, 67.9, kg, 05/14/24 14:25:00 EDT, Weight Dosing Follow-up No qualifying data available Patient Education Hypertension, Adult Problem List/Past Medical History Ongoing Abnormal EKG ADHD Anxiety Breast cancer of lower-inner quadrant of left female breast Complex regional pain syndrome of lower limb Dysuria Essential tremor Generalized anxiety disorder HTN (hypertension) Hx of osteoarthritis Idiopathic polyneuropathy Intradermal melanocytic nevus Mass of left breast Neoplasm of uncertain behavior of skin of back Neoplasm of uncertain behavior of skin of face Pre-op exam Scoliosis Historical Polyneuropathy RSD lower limb Procedure/Surgical History Excision of intradermal nevus (02/20/2024), Excision of breast mass (01/10/2024), Biopsy of breast (06/27/2023), Arthroscopy of knee (06/04/1995), Appendectomy, Cholecystectomy, Extraction of wisdom tooth, Foot, Simple dental extraction, DEAN BSO - Total abdominal hysterectomy and bilateral salpingo- oophorectomy, Tonsillectomy and adenoidectomy. Medications alprazolam 0.25 mg Tab, See Instructions aspirin 81 mg Oral EC Tab, 81 mg= 1 tab(s), Oral, Daily cyclobenzaprine 10 mg Tab, 10 mg= 1 tab(s), Oral, Bedtime, PRN, 3 refills gabapentin 300 mg Cap, 300 mg= 1 cap(s), Oral, BID, 3 refills Hyzaar 12.5 mg-50 mg Tab, 1 tab(s), Oral, Daily, 3 refills Allergies Entex (Unknown) Skelaxin (Unknown) corticosteroids (Anaphylaxis) Social History Alcohol - Medium Risk, 04/29/2024 Current, Wine, Daily, 04/29/2024 Substance Abuse Current, Marijuana, 3-5 times per week, 04/29/2024 Tobacco - Denies Tobacco Use, 04/29/2024 Former smoker, quit more than 30 days ago Tob (more content not included)... [facility] CenterComment on above:Result Comment: Electronically Signed By: Kishan PRATT, Michael Foley\Date and Time Signed: 05/14/24 14:37 EDT General Surgery Office/Clinic Noteon [id number] Surgery Office/Clinic NoteGeneral Surgery Office/Clinic Note Chief Complaint discuss mastectomy HPI Staff Presents to discuss left mastectomy. History of Present Illness 63 yo female with h/o 1.7 cm invasive ductal carcinoma, grade 2, ER/TX positive, HER2 negative of left breast, near inferior medial areolar border with positive margin after excision of what was thought to be granuloma after negative US- guided core biopsy; negative genetic testing; patient scheduled for left mastectomy with sentinel lymph node biopsy in May, with immediate reconstruction byDr Bustamante. Review of Systems PHQ Score Initial Depression Screen Score: 0 SCORE ROS - Provider Constitutional: no fever, no sweats, no weight loss. Eyes: yes glasses, no blurred vision, no visual loss. ENMT: no dentures, no hoarseness, no swallowing difficulties, no hearing loss, no ear infection(s),no nose bleeds. Cardiovascular: normal blood pressure, no [...] noncontributory. Physical Exam Vitals & Measurements HR: 76(Peripheral) RR: 16 BP: 118/76 HT: 67 in HT: 170 cm WT: 66.3 kg WT: 145.86 lb BMI: 22.94 HEENT: normal conjunctiva, sclera clear, no scleral icterus, EOM intact, PERRLA, oral mucosa moist without lesions. Neck: trachea midline, no mass, symmetric, no thyromegaly or nodules, no adenopathy Respiratory: lungs CTA, respirations non labored. Cardiovascular: regular rate and rhythm, no murmur, no pedal edema or varicosities. Gastrointestinal: soft, non distended, no tenderness, no masses, no palpable hernias, diastasis recti no, no hepatosplenomegaly; normal bs Lymphatic: no cervical adenopathy, no [...] of lower-inner quadrant of left female breast) plan left breast mastectomy with sentinel lymph node biopsy, with immediate reconstruction by Dr Bustamante; informed consent obtained. Ancef 2 gms IV prior to OR SCDs Follow-up No qualifying data available Problem List/Past Medical History Ongoing Abnormal EKG ADHD Anxiety Breast cancer of lower-inner quadrant of left female breast Complex regional pain syndrome of lower limb Dysuria Essential tremor Generalized anxiety disorder HTN (hypertension) Hx of osteoarthritis Idiopathic polyneuropathy Intradermal melanocytic nevus Mass of left breast Neoplasm of uncertain behavior of skin of back Neoplasm of uncertain behavior of skin of face Pre-op exam Scoliosis Historical Polyneuropathy RSD lower limb Procedure/Surgical History Excision of intradermal nevus (02/20/2024), Excision of breast mass (01/10/2024), Biopsy of breast (06/27/2023), Arthroscopy of knee (06/04/1995), Appendectomy, Cholecystectomy, Extraction of wisdom tooth, Foot, Simple dental extraction, DEAN BSO - Total abdominal hysterectomy and bilateral salpingo- oophorectomy, Tonsillectomy and adenoidectomy. Medications alprazolam 0.25 mg Tab, See Instructions aspirin 81 mg Oral EC Tab, 81 mg= 1 tab(s), Oral, Daily cyclobenzaprine 10 mg Tab, 10 mg= 1 tab(s), Oral, Bedtime, PRN, 3 refills gabapentin 300 mg Cap, 300 mg= 1 cap(s), Oral, BID, 3 refills Hyzaar 12.5 mg-50 mg Tab, 1 tab(s), Oral, Daily, 3 refills Allergies Entex (Unknown) Skelaxin (Unknown) corticosteroids (Anaphylaxis) Social History Alcohol - Medium Risk, 04/29/2024 Current, Wine, Daily, 04/29/2024 Substance Abuse Current, Marijuana, 3-5 times per week, 04/29/2024 Tobacco - Denies Tobacco Use, 04/29/2024 Former smoker, quit more than 30 days ago Tobacco Use:. Never Smokeless Tobacco Use:. Cigarettes, Household (more content not included)...[facility] CenterComment on above:Result Comment: Electronically Signed By: APARNA PRATT, Roshan Horner\.oh\Date and Time Signed: 04/30/24 07:48 EDTXR Chest 2 Viewson [id number] Chest 2 ViewsExam Date/Time: 04/29/2024 14:07 EDT Reason for Exam: P.A.T. Report IMPRESSION: NO EVIDENCE OF ACTIVE CHEST DISEASE. CLINICAL HISTORY: P.A.T.. COMMENT: The heart is normal in size. The mediastinum is unremarkable. The lungs appear clear. No infiltration nor pleural effusion is evident. Ordering Provider: Billy Jara FINAL REPORT Dictated: 04/30/2024 7:59 am Corona Lieberman M.D. Signed (Electronic Signature): 04/30/2024 7:59 am Signed by: Corona Lieberman M.D. Transcribed by: ROSMERY Technologist: ANTON Technical Comments Radiation Dose: Kar in mGy = 0 DAP = 0NormalMercy Memorial HospitalBMPon [id number] gap [Moles/Vol]9 mmol/LNormal6-16[facility] Memorial HospitalComment on above:Performed By: #### [id number] #### [facility] [address], [place] [address]Rqrdkkf [Mass/Vol]9.1 mg/dLNormal8.9-11.1FOhioHealth Berger HospitalComment on above:Performed By: #### [id number] #### [facility] [address], [place] [address]Tyotrcwp [Moles/Vol]105 mmol/LKdwwxo395-706QsllyrMercy Memorial HospitalComment on above:Performed By: #### [id number] #### [facility] [address], [place] [address]SV9 [Moles/Vol]27 mmol/BKkdaiy56-00QljjcpMercy Memorial Hospital Comment on above:Performed By: #### [id number] #### [facility] [address], [place] [address]Cemuouhxol [Mass/Vol]0.9 mg/dLNormal0.5-1.3FOhioHealth Berger HospitalComment on above:Performed By: #### [id number] #### [facility] [address], [place] [address]Ecpqbhc [Mass/Vol]104 mg/tGDhjqbi67-330SeanzjMercy Memorial HospitalComment on above:Performed By: #### [id number] #### [facility] [address], [place] [address]Lhumvhuya [Moles/Vol]3.9 mmol/LNormal3.5-5.3FOhioHealth Berger HospitalComment on above:Performed By: #### [id number] #### [facility] [address], [place] [address]Fxsikw [Moles/Vol]137 mmol/QVoisig787-629RfyambMercy Memorial HospitalComment on above:Performed By: #### [id number] #### [facility] [address], [place] [address]Bugy nitrogen [Mass/Vol]18 mg/dLNormal5-21[facility] Memorial HospitalComment on above:Performed By: #### [id number] #### [facility] [address] [place] [address]Revn nitrogen/Creatinine [Mass ratio]20 No TvjteUiypkb03-26 [facility] Memorial HospitalComment on above:Performed By: #### [id number] #### [facility] [address] [place] [address]VIG w/ Auto Diffon [id number]/100 WBC (Bld)0.5 %Normal 0.0-2.0Mer[facility] Memorial HospitalComment on above:Performed By: #### [id number] #### [facility] [address] [place] [address]Pxkqoybxr/Leukocytes Auto (Bld) [Pure # fraction]0.1 E9/LNormal 0.0-0.2FOhioHealth Berger HospitalComment on above:Performed By: #### [id number] #### [facility] [address] [place] [address]Qvgicfoqzuf (Bld) [#/Vol]0.4 E9/LNormal0.0-0.5FOhioHealth Berger HospitalComment on above:Performed By: #### [id number] #### [facility] [address] [place] [address]Wxehlbdxkap/100 WBC (Bld)3.5 %Normal0.0-8.0Mer[facility] Memorial HospitalComment on above:Performed By: #### [id number] #### [facility] [address] [place] [address]33[address]Evfcyyodpnt distribution width (RBC) [Ratio]14.4 %High10.9-14.2 [facility] HospitalComment on above:Performed By: #### [id number] #### [facility] [address] [place] [address]45[address]Nwvmvbqtup (Bld) [Volume fraction]40.7 %Kbajlh73.0-46.0[facility] HospitalComment on above:Performed By: #### [id number] #### [facility] [address] [place] [address]Yhdodosidg (Bld) [Mass/Vol]13.9 g/qRQbjtam35.0-16.0[facility] HospitalComment on above:Performed By: #### [id number] #### [facility] [address] [place] [address]Rgpxyvlozqb (Bld) [#/Vol]2.6 E9/LNormal1.0-4.0[facility] HospitalComment on above:Performed By: #### [id number] #### [facility] [address] [place] [address]17[address]Tlmpvphtgoi/100 WBC (Bld)26.4 %Ggucju37.0-50.0[facility] Memorial HospitalComment on above:Performed By: #### [id number] #### [facility] [address] [place] [address]EYN (RBC) [Entitic mass]32.8 mpXeaycr77.0-34.0Mer[facility] Memorial HospitalComment on above:Performed By: #### [id number] #### [facility] [address] [place] [address]LZMM (RBC) [Mass/Vol]34.0 g/nSEgenbc83.4-36.0[facility] Memorial HospitalComment on above:Performed By: #### [id number] #### [facility] [address] [place] [address]QPA (RBC) [Entitic vol]96.5 iGZiavdq10.0-100.0[facility] Memorial HospitalComment on above:Performed By: #### [id number] #### [facility] [address] [place] [address]Hpxeqsnxl (Bld) [#/Vol]0.7 E9/LNormal0.2-1.0[facility] HospitalComment on above:Performed By: #### [id number] #### [facility] [address] [place] [address]Krhlvfdfqbe (Bld) [#/Vol]6.2 E9/LNormal2.0-7.5FOhioHealth Berger HospitalComment on above:Performed By: #### [id number] #### [facility] [address], [place] [address]Bbbirlvojos/100 WBC (Bld)62.2 %Xyztiu16.0-75.0[facility] HospitalComment on above:Performed By: #### [id number] #### [facility] [address], [place] [address]Wletibro mean volume (Bld) [Entitic vol]8.4 fLNormal6.4-10.8 [facility] HospitalComment on above:Performed By: #### [id number] #### [facility] [address] [place] [address]Oiibuogws (Bld) [#/Vol]294.0 E9/GMfwcvb002.0-500.0[facility] HospitalComment on above:Performed By: #### [id number] #### [facility] [address] [place] [address]HVZ (Bld) [#/Vol]4.2 E12/LLow4.3-5.9[facility] Comment on above:Performed By: #### [id number] #### [facility] [address] [place] [address]XNI corrected for nucl RBC Auto (Bld) [#/Vol]9.9 E9/LNormal 4.0-11.0[facility] HospitalComment on above:Performed By: #### [id number] #### [facility] [address] [place] [address] 13[address]MFZKPINDLYhjsptv By: SYSTEM SYSTEM on 09-64-0343Gktnl gap [Moles/Vol]9 mmol/LNormal6 - 16 mEq/LRemisol ChemCalcium [Mass/Vol]9.1 mg/dL Normal8.9 - 11.1 mg/dLRemisol ChemChloride [Moles/Vol]105 mmol/NQgzzgp646 - 111 mmol/LRemisol ChemCO2 [Moles/Vol]27 mmol/FAwmshh80 - 31 mmol/LRemisol Chem Creatinine [Mass/Vol]0.9 mg/dLNormal0.5 - 1.3 mg/dLRemisol EsdxrEUD87 mL/min/1.73 k7Uencha>=59mL/min/1.73 k1Gykumhx ChemGlucose [Mass/Vol]104 mg/dL Dxqxoz00 - 199 mg/dLRemisol ChemPotassium [Moles/Vol]3.9 mmol/LNormal3.5 - 5.3 mmol/LRemisol ChemSodium [Moles/Vol]137 mmol/BSzbgwe661 - 145 mmol/LRemisol Chem Urea nitrogen [Mass/Vol]18 mg/dLNormal5 - 21 mg/dLRemisol ChemUrea nitrogen/Creatinine [Mass ratio]20 mg/woPrhdmm94 - 20Remisol ChemHEMATOLOGY Ordered By: SYSTEM SYSTEM on 47-38-8791Jyebmtjad/100 WBC (Bld)0.5 %Normal0.0 - 2.0 %Remisol HemeBasophils/Leukocytes Auto (Bld) [Pure # fraction]0.1 E9/LNormal 0.0 - 0.2 E9/LRemisol HemeEosinophils (Bld) [#/Vol]0.4 E9/LNormal0.0 - 0.5 E9/L Remisol HemeEosinophils/100 WBC (Bld)3.5 %Normal0.0 - 8.0 %Remisol Heme Erythrocyte distribution width (RBC) [Ratio]14.4 %High10.9 - 14.2 %Remisol Heme Hematocrit (Bld) [Volume fraction]40.7 %Zllxku87.0 - 46.0 %Remisol Heme Hemoglobin (Bld) [Mass/Vol]13.9 g/xWTuyife81.0 - 16.0 gm/dLRemisol Heme Lymphocytes (Bld) [#/Vol]2.6 E9/LNormal1.0 - 4.0 E9/LRemisol HemeLymphocytes/100 WBC (Bld)26.4 %Gykyey32.0 - 50.0 %Remisol HemeMCH (RBC) [Entitic mass]32.8 pg Mjwapu94.0 - 34.0 pgRemisol HemeMCHC (RBC) [Mass/Vol]34.0 g/yCRkuiev08.4 - 36.0 gm/dLRemisol HemeMCV (RBC) [Entitic vol]96.5 xMNyqtwp72.0 - 100.0 fLRemisol Heme Monocytes (Bld) [#/Vol]0.7 E9/LNormal0.2 - 1.0 E9/LRemisol HemeMonocytes/100 WBC (Bld)7.4 %Normal4.0 - 14.0 %Remisol HemeNeutrophils (Bld) [#/Vol]6.2 E9/LNormal 2.0 - 7.5 E9/LRemisol HemeNeutrophils/100 WBC (Bld)62.2 %Siadws39.0 - 75.0 % Remisol HemePlatelet mean volume (Bld) [Entitic vol]8.4 fLNormal6.4 - 10.8 fL Remisol HemePlatelets (Bld) [#/Vol]294.0 E9/PEubbhm430.0 - 500.0 E9/LRemisol HemeRBC (Bld) [#/Vol]4.2 E12/LLow4.3 - 5.9 E12/LRemisol HemeWBC corrected for nucl RBC Auto (Bld) [#/Vol]9.9 E9/LNormal4.0 - 11.0 E9/LRemisol HemeeGFRon 37-42-1974iWPX06 mL/min/1.73 r8Gcmeiq>=59Mer[facility] Memorial HospitalComment on above:Order Comment: Order added by Discern Expert.Performed By: #### [id number] #### [facility] [address], [place] [address]Thmsixsoni Visit Summaryon [id number] Visit Summary Ambulatory Visit Summary ADELINA MIR :1960 Visit Date:04/09/2024 Ambulatory Visit Instructions Your Care Team Attending Physician - APARNA PRATT, Roshan Horner Primary Care Physician - Kishan PRATT, Michael Barker This Is Your Medications List alprazolam (alprazolam 0.25 mg Tab) aspirin (aspirin 81 mg Oral EC Tab) cyclobenzaprine (cyclobenzaprine 10 mg Tab) gabapentin (gabapentin 300 mg Cap) hydrochlorothiazide-losartan (Hyzaar 12.5 mg-50 mg Tab) Procedures Performed Excision of intradermal nevus (02/20/2024), Excision of breast mass (01/10/2024), Biopsy of breast (06/27/2023), Arthroscopy of knee (06/04/1995), Appendectomy, Cholecystectomy, Extraction of wisdom tooth, Foot, Simple dental extraction, DEAN BSO - Total abdominal hysterectomy and bilateral salpingo- oophorectomy, Tonsillectomy and adenoidectomy. Discharge Vitals Heart Rate (Peripheral) 76 Respiratory Rate 16 Blood Pressure 118/76 Height 170 cm Height 67 in Weight 66.3 kg Weight 145.86 lb BMI 22.94 What to do next Scheduled Follow-Up Appointments Monday 2:00 PM EDT With: Kishan PRATT, Michael Barker Where: [place] [address]- Medications What How Much When Instructions Unchanged alprazolam (alprazolam 0.25 mg Tab) See instructions 1 tab tid prn Unchanged aspirin (aspirin 81 mg Oral EC Tab) Unchanged cyclobenzaprine (cyclobenzaprine 10 mg Tab) 1 Tablets By Mouth At bedtime as needed for for spasm Unchanged gabapentin (gabapentin 300 mg Cap) 1 Capsules By Mouth 2 times a day Unchanged hydrochlorothiazide-losartan (Hyzaar 12.5 mg-50 mg Tab) 1 Tablets By Mouth Every day Allergies Entex (Unknown) Skelaxin (Unknown) corticosteroids (Anaphylaxis) Problems Ongoing - Any problem that you are currently receiving treatment for. Abnormal EKG ADHD Anxiety Breast cancer of lower-inner quadrant of left female breast Complex regional pain syndrome of lower limb Dysuria Essential tremor Generalized anxiety disorder HTN (hypertension) Hx of osteoarthritis Idiopathic polyneuropathy Intradermal melanocytic nevus Mass of left breast Neoplasm of uncertain behavior of skin of back Neoplasm of uncertain behavior of skin of face Pre-op exam Scoliosis Historical - Any problem that you are no longer receiving treatment for. Polyneuropathy RSD lower limb Patient Survey You may receive a survey via text or e-mail asking about your office visit. Please share your experience with us by completing your survey. We appreciate your feedback and thank you for choosing us for your care. GregoryMercy Memorial HospitalGeneral Surgery Office/Clinic Noteon [id number] Surgery Office/Clinic NoteGeneral Surgery Office/Clinic Note Chief Complaint follow up in-office excisional biopsy HPI Staff 7 day post in-office excisional biopsies nevi right face and upper back. Denies discomfort, bleeding or drainage. Sutures intact. History of Present Illness 1 week s/p excisional biopsy lesions right face and left upper back; pathology consistent with intradermal melanocytic nevi; doing well, mild soreness, no drainage from incisions. Review of Systems ROS - Provider Constitutional: no fever, no sweats, no weight loss. Eyes: no glasses, no blurred vision, no visual loss. ENMT: no dentures, no hoarseness, no swallowing difficulties, no hearing loss, no ear infection(s),no nose bleeds. Cardiovascular: normal blood pressure, no [...] are negative or noncontributory. Physical Exam skin: incisions healing well, no erythema or drainage, no ecchymosis. Assessment/Plan 1. Intradermal melanocytic nevus (D22.9: Melanocytic nevi, unspecified) doing well, sutures removed, call with problems/questions. Follow-up No qualifying data available Problem List/Past Medical History Ongoing Abnormal EKG ADHD Anxiety BMI 25.0-25.9,adult Breast cancer of lower-inner quadrant of left female breast Complex regional pain syndrome of lower limb Dysuria Essential tremor Generalized anxiety disorder HTN (hypertension) Hx of osteoarthritis Idiopathic polyneuropathy Intradermal melanocytic nevus Mass of left breast Neoplasm of uncertain behavior of skin of back Neoplasm of uncertain behavior of skin of face Pre-op exam Scoliosis Historical Polyneuropathy RSD lower limb Procedure/Surgical History Excision of intradermal nevus (02/20/2024), Excision of breast mass (01/10/2024), Biopsy of breast (06/27/2023), Arthroscopy of knee (06/04/1995), Appendectomy, Cholecystectomy, Extraction of wisdom tooth, Foot, Simple dental extraction, DEAN BSO - Total abdominal hysterectomy and bilateral salpingo- oophorectomy, Tonsillectomy and adenoidectomy. Medications alprazolam 0.25 mg [...] Tobacco Use:. Cigarettes, Household tobacco concerns: No., 02/27/2024 Family History Primary malignant neoplasm of lung: Mother. Immunizations Vaccine Date Status Comments influenza virus vaccine, inactivated - Not Given Patient Refuses influenza virus vaccine, inactivated - Not Given Patient Refuses SARS-CoV-2 mRNA (micki 5y-11y) vac - Not Given Postpone due to refusal patient seen 02/27/24[facility] CenterComment on above:Result Comment: Electronically Signed By: APARNA PRATT, Roshan Hargrove\Date and Time Signed: 03/01/24 11:11 EDTPathology Noteon [id number] Note [id number]#1.00[facility] CenterAmbulatory Visit Summaryon [id number] Visit Summary ADELINA MIR :1960 Visit Date:02/27/2024 Ambulatory Visit Instructions Your Care Team Attending Physician - Roshan BRAUN MD Primary Care Physician - Michael Holley MD This Is Your Medications List alprazolam (alprazolam 0.25 mg Tab) aspirin (aspirin 81 mg Oral EC Tab) cyclobenzaprine (cyclobenzaprine 10 mg Tab) gabapentin (gabapentin 300 mg Cap) hydrochlorothiazide-losartan (Hyzaar 12.5 mg-50 mg Tab) Procedures Performed Excision of intradermal nevus (02/20/2024), Excision of breast mass (01/10/2024), Biopsy of breast (06/27/2023), Arthroscopy of knee (06/04/1995), Appendectomy, Cholecystectomy, Extraction of wisdom tooth, Foot, Simple dental extraction, DEAN BSO - Total abdominal hysterectomy and bilateral salpingo- oophorectomy, Tonsillectomy and adenoidectomy. What to do next Scheduled Follow-Up Appointments Monday 2:00 PM EDT With: Michael Holley MD [facility] ADELIN[facility] :1960 Visit Date:02/27/2024 Ambulatory Visit Instructions Your Diagnosis Anxiety BMI 25.0-25.9,adult Over weight Former smoker Your Care Team Attending Physician - Michael Holley MD Primary Care Physician - Michael Holley MD This Is Your Medications List Contact prescribing physician if questions or concerns alprazolam (alprazolam 0.25 mg Tab) aspirin (aspirin 81 mg Oral EC Tab) cyclobenzaprine (cyclobenzaprine 10 mg Tab) gabapentin (gabapentin 300 mg Cap) hydrochlorothiazide-losartan (Hyzaar 12.5 mg-50 mg Tab) Procedures Performed Excision of breast mass (01/10/2024), Biopsy of breast (06/27/2023), Arthroscopy of knee (06/04/1995), Appendectomy, Cholecystectomy, Extraction of wisdom tooth, Foot, Simple dental extraction, DEAN BSO - Total abdominal hysterectomy and bilateral salpingo-oophorectomy, Tonsillectomy and adenoidectomy. Discharge Vitals Temperature (Oral) 36.9 ?C Heart Rate (Peripheral) 76 Respiratory Rate 16 Blood Pressure 110/74 Height 170 cm Height 67 in Weight 66.7 kg Weight 146.74 lb BMI 23.08 What to do next Scheduled Follow-Up Appointments Monday 3:00 PM EDT With: APARNA PRATT, Roshan Horner Where: [facility] [place] [id number]- \.br\ Medications\.br\ What How Much When In structions\.br\ Unchanged alprazolam (alprazolam 0.25 mg Tab) 1 [...] physician if questions or concerns \.br\ Unchanged hydrochlorothiazide-losartan (Hyzaar 12.5 mg-50 mg Tab) 1 Tablets By Mouth Every day Contact prescribing physician if questions or concerns \.br\ Allergies\.br\ Entex (Unknown)\.br\ Skelaxin (Unknown)\.br\ corticosteroids (Anaphylaxis)\.br\ Problems\.br\ Ongoing - Any problem that you are currently receiving treatment for.\.br\ Abnormal EKG\.br\ ADHD\.br\ Anxiety\.br\ BMI 25.0-25.9,adult\.br\ Breast cancer of lower-inner quadrant of left female breast\.br\ Complex regional pain syndrome of lower limb\.br\ Dysuria\.br\ Essential tremor\.br\ Generalized anxiety disorder\.br\ HTN (hypertension)\.br\ Hx of osteoarthritis\.br\ Idiopathic polyneuropathy\.br\ Mass of left breast\.br\ Neoplasm of uncertain behavior of skin of back\.br\ Neoplasm of uncertain behavior of skin of face\.br\ Nipple discharge\.br\ Pre-op exam\.br\ Scoliosis\.br\ Historical - Any problem that you are no longer receiving treatment for.\.br\ Polyneuropathy\.br\ RSD lower limb\.br\ Patient Survey\.br\ You may receive a survey via text or e-mail asking about your office visit. Please share your experience with us by completing your survey. We appreciate your feedback and thank you for choosing us for your care.\.br\ \.br\[facility] Medicine Office/Clinic Noteon [id number] Medicine Office/Clinic NoteHPI Staff Adelina is a 63 year old female presenting for her 3 month medication eval for anxiety Was diagnosed with breast cancer so really needs her xanax Follow up for Mental Status: Medication adherence- Yes, takes medication as prescribed Medication refill needed: yes Suicidal thoughts-Not at this time Most recent JOHN: 9 Most recent PHQ: 1 Opioids prescribed: xanax Medication agreement UTD: UTD 11/27/23_ Urine drug screen performed:UTD 07/24/23 questions/concerns: needs her xanax refilled to [facility] and gabapentin and flexeril needs refilled to [facility] Does she need to stay on BP medication since it's more of a white coat htn and not true htn History of Present Illness - See staff HPI. Review of Systems PHQ Score Initial Depression Screen Score: 0 SCORE Physical Exam Vitals & Measurements T: 36.9 ?C(Oral) HR: 76(Peripheral) RR: 16 BP: 110/74 SpO2: 97% HT: 67 in HT: 170 cm WT: 66.7 kg WT: 146.74 lb BMI: 23.08 General: alert, no acute distress ENMT: oral mucosa moist, Cardiovascular: regular rate and rhythm, normal peripheral perfusion Respiratory: Lungs CTA, respirations non labored Extremities: no deformity, no trauma Neurological: oriented x 4, LOC appropriate for age, CN II-XII intact, motor strength equal & normal bilaterally, speech normal Abdomen: Soft, Nontender, Non-distended, + BS Assessment/Plan 1. Anxiety (F41.9: Anxiety disorder, unspecified) - Doing ok with the news of cancer - Still needs meds - Feeling ok Ordered: Body Mass Index (BMI) documented 3008F Current tobacco non-user 1036F Depression Screening Negative 3352F Most recent diastolic blood pressure 80-89 mm Hg 3079F Patient screen for fall risk: no falls in last year or 1 fall with no injury in last year 1101F Systolic BP 130-139 mm Hg (Most Recent) 3075F 2. HTN (hypertension) (I10: Essential (primary) hypertension) - Well controlled 3. Unspecified lump in the left breast, lower outer quadrant (N63.23: Unspecified lump in the left breast, lower outer quadrant) - Seeing surgery. - Please let us know how things go 4. BMI 25.0-25.9,adult (Z68.25: Body mass index [BMI] 25.0-25.9, adult) - BMI education added Ordered: Body Mass Index (BMI) documented 3008F Current tobacco non-user 1036F Depression Screening Negative 3352F Most recent diastolic blood pressure 80-89 mm Hg 3079F Patient screen for fall risk: no falls in last year or 1 fall with no injury in last year 1101F Systolic BP 130-139 mm Hg (Most Recent) 3075F 5. Over weight (E66.3: Overweight) - Diet and exercise advised Ordered: Body Mass Index (BMI) documented 3008F Current tobacco non-user 1036F Depression Screening Negative 3352F Most recent diastolic blood pressure 80-89 mm Hg 3079F Patient screen for fall risk: no falls in last year or 1 fall with no injury in last year 1101F Systolic BP 130-139 mm Hg (Most Recent) 3075F 6. Former smoker (Z87.891: Personal history of nicotine dependence) - Please continue to not smoke. Ordered: Body Mass Index (BMI) documented 3008F Current tobacco non-user 1036F Depression Screening Negative 3352F Most recent diastolic blood pressure 80-89 mm Hg 3079F Patient screen for fall risk: no falls in last year or 1 fall with no injury in last year 1101F Systolic BP 130-139 mm Hg (Most Recent) 3075F Orders: alprazolam, 0.25 mg = 1 tab(s), Oral, TID, # 90 tab(s), Refills(s) 0, Pharmacy: [facility], 170, cm, 02/27/24 13:53:00 EDT, Height/Length Dosing, 66.7, kg, 02/27/24 13:53:00 EDT, Weight Dosing gabapentin, 300 mg = 1 cap(s), Oral, BID, # 180 cap(s), Refills(s) 3, Pharmacy: [facility], 170, cm, 02/27/24 13:53:00 EDT, Height/Length Dosing, 66.7, kg, 02/27/24 13:53:00 EDT, Weight Dosing hydrochlorothiazide-losartan, 1 tab(s), Oral, Daily, 90 tab(s), Refill(s) 3, [facility], 170, cm, 02/27/24 13:53:00 EDT, Height/Length Dosing, 66.7, kg, 02/27/24 13:53:00 EDT, Weight Dosing Follow-up No qualifying data available Problem List/Past Medical History Ongoing Abnormal EKG ADHD Anxiety BMI 25.0-25.9,adult Breast cancer of lower-inner quadrant of left female breast Complex regional pain syndrome of lower limb Dysuria Essential tremor Generalized anxiety disorder HTN (hypertension) Hx of osteoarthritis Idiopathic polyneuropathy Mass of left breast Neoplasm of uncertain behavior of skin of back Neoplasm of uncertain behavior of skin of face Pre-op exam Scoliosis Historical Polyneuropathy RSD lower limb Procedure/Surgical History Excision of breast mass (01/10/2024), Biopsy of breast (06/27/2023), Arthroscopy of knee (06/04/1995), Appendectomy, Cholecystectomy, Extraction of wisdom tooth, Foot, Simple dental extraction, DEAN BSO - Total abdominal hysterectomy and bilateral salpingo-oophorectomy, Tonsillectomy and adenoidectomy. Medications alprazolam 0.25 mg Tab, 0.25 mg= 1 tab(s), Oral, TID aspiri (more content not included)...[facility] Medical CenterComment on above:Result Comment: Electronically Signed By: Kishan PRATT, Michael Ball.oh\Date and Time Signed: 02/27/24 14:32 EDTPathology Noteon 32-91-2507Oizjtbgah Note [id number]#1.00TIFFNormManda Thomas B. Finan CenterPathology [id number]#1.00TIFFNormilana Miller Thomas B. Finan CenterGeneral Surgery Office/Clinic Noteon 02-23-2024 General Surgery Office/Clinic NoteChief Complaint in-office excisional biopsy HPI Staff Presents for in-office excisional biopsy multiple nevi. History of Present Illness patient presents for excision of enlarging skin lesions left upper back and right cheek; no bleeding, sore at times, no pigmentation change; patient out in sun a lot; no h/o skin cancers; on baby asadaily, no NSAID use; no tobacco use. Review of Systems ROS - Provider Constitutional: no fever, no sweats, no weight loss. Eyes: no glasses, no blurred vision, no visual loss. ENMT: no dentures, no hoarseness, no swallowing difficulties, no hearing loss, no ear infection(s),no nose bleeds. Cardiovascular: normal blood pressure, no [...] are negative or noncontributory. Physical Exam skin: right cheek with 7 mm raised, nonpigmented, smooth lesion, no ulceration; left upper back with irregular, raised, nonpigmented 6 mm lesion, no ulceration or scab. Procedure patient brought to the procedure room, placed in supine position, area prepped and draped in sterile fashion; anesthetized with 1 % lidocaine; right cheek lesion excised in elliptical fashion down tosubcutaneous fat; closed with interrupted 5-0 nylon sutures; total length of incision 1 cm; left back lesion excised and closed in an identical fashion, total length of incision 8 mm; tolerated well;ebl < 3 ml; sterile dressings applied. Assessment/Plan 1. Neoplasm of uncertain behavior of skin of face, (D48.5: Neoplasm of uncertain behavior of skin) excised under local anesthesia, tolerated well, follow up in 1 week for suture removal; ibuprofen as needed for pain; keep incisions clean and dry, no ointments. Neoplasm of uncertain behavior of skin of back Follow-up No qualifying data available Problem List/Past Medical History Ongoing Abnormal EKG ADHD Anxiety BMI 25.0-25.9,adult Breast cancer of lower-inner quadrant of left female breast Complex regional pain syndrome of lower limb Dysuria Essential tremor Generalized anxiety disorder HTN (hypertension) Hx of osteoarthritis Idiopathic polyneuropathy Mass of left breast Neoplasm of uncertain behavior of skin of back Neoplasm of uncertain behavior of skin of face Nipple discharge Pre-op exam Scoliosis Historical Polyneuropathy [...] - Not Given Postpone due to refusal [facility] CenterComment on above:Result Comment: Electronically Signed By: APARNA PRATT, Roshan Horner\.br\Date and Time Signed: 02/23/24 08:32 EDT Consent for Procedure/Surgeryon 48-49-4321Bocjpbs for Procedure/Surgery [id number]#1.00TIFFAdena Pike Medical CenterFormson [id number]#1.00TIFF [facility] Medical CenterForms [id number]#1.00[facility] Medical CenterAmbulatory Visit Summaryon 61-80-5730Yrabcnxygc Visit Summary LUCYARTIE ADELINA Pool :1960 Visit Date:02/20/2024 Ambulatory Visit Instructions Your Care Team Attending Physician - APARNA PRATT, Roshan Horner Primary Care Physician - Michael Holley MD This Is Your Medications List Contact prescribing physician if questions or concerns alprazolam (alprazolam 0.25 mg Tab) aspirin (aspirin 81 mg Oral EC Tab) cyclobenzaprine (cyclobenzaprine 10 mg Tab) gabapentin (gabapentin 300 mg Cap) hydrochlorothiazide-losartan (Hyzaar 12.5 mg-50 mg Tab) Procedures Performed Excision of breast mass (01/10/2024), Biopsy of breast (06/27/2023), Arthroscopy of knee (06/04/1995), Appendectomy, Cholecystectomy, Extraction of wisdom tooth, Foot, Simple dental extraction, DEAN BSO - Total abdominal hysterectomy and bilateral salpingo-oophorectomy, Tonsillectomy and adenoidectomy. What to do next Scheduled Follow-Up Appointments Monday 1:00 PM EDT With: Michael Holley MD Where[facility] HospitalAlanine aminotransferase [Enzymatic activity/volume] in Serum or PlasmaOrdered By: Kush Glez on 91-90-5640BPC [Catalytic activity/Vol]13 U/L 7-52[facility], AvonAlbumin [Mass/volume] in Serum or Plasma by Bromocresol green (BCG) dye binding methoOrdered By: Kush Glez on 16-81-8859Amrjbsn BCG dye [Mass/Vol]4.3 g/dL3.5-5.7FCincinnati Children's Hospital Medical CenterAlkaline phosphatase [Enzymatic activity/volume] in Serum or PlasmaOrdered By: Kush Glez on 43-79-3191KPF [Catalytic activity/Vol]65 U/L34-104 [facility], AvonAspartate aminotransferase [Enzymatic activity/volume] in Serum or PlasmaOrdered By: Kush Glez on 07-97-6923EPC [Catalytic activity/Vol]18 U/L37-59UstxjqavwSelect Medical [facility], AvonBasophils Auto (Bld) [#/Vol]Ordered By: Kush Glez on 59-22-5520Zpjmiruwy (Bld) [#/Vol]0.1 10*3/uL0.0-0.2FCincinnati Children's Hospital Medical CenterBasophils/100 WBC Auto (Bld)Ordered By: Kush Glez on 49-45-7579Sghtttxme/100 WBC (Bld)1.3 %. [facility], AvonBilirubin.total [Mass/volume] in Serum or PlasmaOrdered By: Kush Glez on 49-74-7911Iwprctgki [Mass/Vol]0.4 mg/dL 0.3-1.0[facility], AvonCalcium [Mass/volume] in Serum or Plasma Ordered By: Kush Glez on 17-77-2574Utpjick [Mass/Vol]9.5 mg/dL8.6-10.3 [facility], AvonCancer antigen 27-29 measurementOrdered By: Kush Glez on 50-06-8563VV 27.2913.6 U/mL0.0-38.6FCincinnati Children's Hospital Medical CenterComment on above:[employer] Coolir[employer]aur Immunochemiluminometric Methodology (ICMA)Values obtained with different assay methods or kits cannotbe used interchangeably. Results cannot be interpreted asabsolute evidence of the p resence or absence of malignantdisease.Performed at: [facility] [address] [id number] Director: Anthony Keane PhD, Phone: [phone] antigen 27-29 tbbewyskphf65.6 U/mL0.0-38.6FCincinnati Children's Hospital Medical CenterComment on above:[employer] Coolirisaur Immunochemiluminometric Methodology (ICMA)Values obtained with different assay methods or kits cannotbe used interchangeably. Results cannot be interpreted asabsolute evidence of the p resence or absence of malignantdisease.Performed at: [facility] [address] [id number] Director: Anthony Keane PhD, Phone: [phone] dioxide, total [Moles/volume] in Serum or PlasmaOrdered By: Kush Glez on 19-13-8794QN5 [Moles/Vol]29.3 mmol/L21.0-31.0[facility], [place]onChloride [Moles/volume] in Serum or PlasmaOrdered By: Kush Hooker on 08-69-4902Zlmcqvzo [Moles/Vol]103 mmol/X66-816TpfywgfqsSelect Medical [facility], AvonCreatinine [Mass/volume] in Serum or PlasmaOrdered By: Kush Hooker on 20-99-5747Odtcxsfilp [Mass/Vol]1.03 mg/dL0.60-1.20[facility], AvonEosinophils Auto (Bld) [#/Vol]Ordered By: Kush Glez on 83-00-1432Oujptraulne (Bld) [#/Vol]0.3 10*3/uL0.0-0.45[facility], AvonEosinophils/100 WBC Auto (Bld)Ordered By: Kush Glez on 02-13-2024 Eosinophils/100 WBC (Bld)3.6 %.[facility], AvonErythrocyte distribution width Auto (RBC) [Ratio]Ordered By: tara Glez on 02-13-2024 Erythrocyte distribution width (RBC) [Ratio]14.4 %11.9-15.3FCincinnati Children's Hospital Medical CenterGlobulin Calc (S) [Mass/Vol]Ordered By: Kush Glez on 18-65-2573Kulapzkz (S) [Mass/Vol]2.3 g/dLSelect Medical [facility], [place] Glucose [Mass/volume] in Serum or PlasmaOrdered By: tara Glez on 02-13-2024 Glucose [Mass/Vol]106 mg/oMLyzt26-604ByauyrmabSelect Medical [facility], AvonComment on above:ADA recommended reference rangeRandom Glucose Reference Range is dependent on time and content of last meal. Glucose of more than 200 mg/dL in a nonstressed, ambulatory subject supports the diagnosisof Diabetes Mellitus. Hematocrit Auto (Bld) [Volume fraction]Ordered By: Kush Glez on 02-13-2024 Hematocrit (Bld) [Volume fraction]41.1 %34.0-46.4FCincinnati Children's Hospital Medical CenterHemoglobin [Mass/volume] in BloodOrdered By: Kush Glez on 02-13-2024 Hemoglobin (Bld) [Mass/Vol]13.9 g/dL11.8-15.4FCincinnati Children's Hospital Medical Center Leukocytes [#/volume] corrected for nucleated erythrocytes in Blood by Automated counOrdered By: Kush Glez on 67-91-3712YRX corrected for nucl RBC Auto (Bld) [#/Vol]8.7 10*3/uL3.8-11.6FCincinnati Children's Hospital Medical CenterLymphocytes Auto (Bld) [#/Vol]Ordered By: Kush Glez on 64-63-5137Zkcjdgzlpky (Bld) [#/Vol]2.4 10*3/uL1.00-4.8[facility], AvonLymphocytes/100 WBC Auto (Bld)Ordered By: Kush Glez on 19-58-0773Zfxgdpslcna/100 WBC (Bld)27.3 %.[facility] Auto (RBC) [Entitic mass]Ordered By: Kush Glez on 33-37-9466RGW (RBC) [Entitic mass]32.8 pg24.7-34.3FCincinnati Children's Hospital Medical CenterMCHC Auto (RBC) [Mass/Vol]Ordered By: Kush Glez on 10-36-2539JWPN (RBC) [Mass/Vol]33.8 g/dL32.0-35.0[facility], AvonMCV Auto (RBC) [Entitic vol]Ordered By: Kush Glez on 53-61-5972TBB (RBC) [Entitic vol]96.8 dS08-597UlgufudliSelect Medical Cleveland Clinic Rehabilitation Hospital, AvonMonocytes Auto (Bld) [#/Vol]Ordered By: Kush Glez on 70-20-7828Ttluydiae (Bld) [#/Vol]0.5 10*3/uL0.0-0.8[facility], AvonMonocytes/100 WBC Auto (Bld) Ordered By: Kush Glez on 86-21-2048Ozvaapxnb/100 WBC (Bld)6.3 %.[facility], AvonNeutrophils Auto (Bld) [#/Vol]Ordered By: Kush Glez on 40-09-2804Dpdwwalptrg (Bld) [#/Vol]5.3 10*3/uL1.8-7.7FCincinnati Children's Hospital Medical CenterNeutrophils/100 WBC Auto (Bld)Ordered By: Kush Glez on 09-20-2004Cavaarrrtfv/100 WBC (Bld)61.5 %.[facility], AvonNo Panel InformationOrdered By: Kush Glez on 46-27-2075Ifwotpiet GFR (CKD-EPI) > 60.0 mL/MinSelect Medical Cleveland Clinic Rehabilitation Hospital, AvonPharmacy Creatinine Clearance (Chem55.07[facility], AvonNucleated erythrocytes [Presence] in Blood by Automated countOrdered By: Kush Glez on 42-16-8943Ymqqvgrrw RBC Auto Ql (Bld)0.1 /100{WBC}0-0.5FCincinnati Children's Hospital Medical CenterPlatelet mean volume Auto (Bld) [Entitic vol]Ordered By: Kush Glez on 81-66-5835Pvvizame mean volume (Bld) [Entitic vol]7.9 fL6.3-10.7FCincinnati Children's Hospital Medical Center Platelets Auto (Bld) [#/Vol]Ordered By: Kush Glez on 02-19-7980Uofpdfvma (Bld) [#/Vol]288 10*3/pJ035-635JkxpijugvSelect Medical Cleveland Clinic Rehabilitation Hospital, AvonPotassium [Moles/volume] in Serum or PlasmaOrdered By: Kush Glez on 02-13-2024 Potassium [Moles/Vol]4.2 mmol/L3.5-5.1FCincinnati Children's Hospital Medical CenterProtein [Mass/volume] in Serum or PlasmaOrdered By: Kush Glez on 67-32-9584Gbtskqh [Mass/Vol]6.6 g/dL6.4-8.9[facility], AvonRBC Auto (Bld) [#/Vol] Ordered By: Kush Glez on 10-82-5102QLH (Bld) [#/Vol]4.24 10*6/uL3.60-5.00 [facility] Cincinnatierum or plasma albumin/globulin mass ratio Ordered By: Kush Glez on 16-31-1372Wofqjjq/Globulin [Mass ratio]1.9 {ratio} [facility] Cincinnatierum or plasma anion gap determinationOrdered By: Kush Glez on 89-47-6878Ghzku gap [Moles/Vol]9.9 mmol/L6.0-15.0[facility] Cincinnatierum or plasma cancer antigen 15-3 measurement (units/volume)Ordered By: Kush Glez on 09-79-8691Ktligl Ag 15-3 Qn9.7 U/mL 0.0-25.0[facility], AvonComment on above:[employer] Electrochemiluminescence Immunoassay(ECLIA)Values obtained with different assay methods or kits cannotbe used interchangeably. Results cannot be interpreted asabsolute evidence of the presence or absence of malignantdisease.Performed at: [facility] [id number] Director: Anthony Keane PhD, Phone: [phone] Ag 15-3 QnSerum or plasma cancer antigen 15-3 measurement (units/volume)0.0-25.0[facility], AvonComment on above:[facility] Electrochemiluminescence Immunoassay(ECLIA)Values obtained with different assay methods or kits cannotbe used interchangeably. Results cannot be interpreted asabsolute evidence of the presence or absence of malignantdisease.Performed at: [facility] [id number] Director: Anthony Keane PhD, Phone: [phone] [Moles/volume] in Serum or PlasmaOrdered By: Kush Glez on 74-30-5196Wvqqzp [Moles/Vol]138 mmol/S791-764IpjmfzcevSelect Medical [facility], AvonUrea nitrogen [Mass/volume] in Serum or PlasmaOrdered By: Kush Glez on 78-22-2796Itvm nitrogen [Mass/Vol]17 mg/dL7-25[facility], AvonWBC Auto (Bld) [#/Vol]Ordered By: Kush Glez on 11-46-1174KKF (Bld) [#/Vol]8.7 10*3/uL 3.8-11.6FCincinnati Children's Hospital Medical CenterConsultation Noteon 02-09-2024 Consultation [id number]#1.00TIFFTriHealth Good Samaritan Hospitaltress EKG Tracingson 06-00-4471Yfxvlx EKG Tracings [id number]#1.00TIFSt. Charles HospitalConsultation Noteon 41-22-0588Lssshycmehih Note [id number]#1.00[facility] Medical CenterPathology Noteon 73-91-8548Rpbscjhoe Note [id number]#1.00[facility] Medical CenterPathology [id number]#1.00[facility] Medical CenterAmbulatory Visit Summaryon 58-63-1680Wbmqvpzrct Visit Summary ADELINA MIR :1960 Visit Date:01/23/2024 Ambulatory Visit Instructions Your Diagnosis Breast cancer of lower-inner quadrant of left female breast Your Care Team Attending Physician - Roshan BRAUN MD Primary Care Physician - Michael Holley MD This Is Your Medications List Contact prescribing physician if questions or concerns alprazolam (alprazolam 0.25 mg Tab) aspirin (aspirin 81 mg Oral EC Tab) cyclobenzaprine (cyclobenzaprine 10 mg Tab) gabapentin (gabapentin 300 mg Cap) hydrochlorothiazide-losartan (Hyzaar 12.5 mg-50 mg Tab) Procedures Performed Excision of breast mass (01/10/2024), Biopsy of breast (06/27/2023), Arthroscopy of knee (06/04/1995), Appendectomy, Cholecystectomy, Extraction of wisdom tooth, Foot, Simple dental extraction, DEAN BSO - Total abdominal hysterectomy and bilateral salpingo-oophorectomy, Tonsillectomy and adenoidectomy. What to do next Scheduled Follow-Up Appointments Monday. 2023 4:00 PM EDT With: APARNA PRATT, Roshan Horner Where: [address] [address] \.br\ Medications\.br\ What How Much When In structions\.br\ Unchanged alprazolam (alprazolam 0.25 mg Tab) 1 [...] physician if questions or concerns \.br\ Unchanged hydrochlorothiazide-losartan (Hyzaar 12.5 mg-50 mg Tab) 1 Tablets By Mouth Every day Contact prescribing physician if questions or concerns \.br\ Allergies\.br\ Entex (Unknown)\.br\ Skelaxin (Unknown)\.br\ corticosteroids (Anaphylaxis)\.br\ Problems\.br\ Ongoing - Any problem that you are currently receiving treatment for.\.br\ Abnormal EKG\.br\ ADHD\.br\ Anxiety\.br\ BMI 25.0-25.9,adult\.br\ Breast cancer of lower-inner quadrant of left female breast\.br\ Complex regional pain syndrome of lower limb\.br\ Dysuria\.br\ Essential tremor\.br\ Generalized anxiety disorder\.br\ HTN (hypertension)\.br\ Hx of osteoarthritis\.br\ Idiopathic polyneuropathy\.br\ Mass of left breast\.br\ Nipple discharge\.br\ Pre-op exam\.br\ Scoliosis\.br\ Historical - Any problem that you are no longer receiving treatment for.\.br\ Polyneuropathy\.br\ RSD lower limb\.br\ Patient Survey\.br\ You may receive a survey via text or e-mail asking about your office visit. Please share your experience with us by completing your survey.We appreciate your feedback and thank you for choosing us for your care.\.br\ \.br\[facility] Fin[facility] CenterGeneral Surgery Office/Clinic Noteon 20-89-0442Mvhtcjl Surgery Office/Clinic NoteChief Complaint post operative follow up HPI Staff 13 day post operative follow up post excisional biopsy left breast mass. Denies discomfort, bleeding or drainage. 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 Cardiovascular: normal blood pressure, no [...] up after evaluations; call with problems/questions. [place] [facility] [facility] [place] Follow-up No qualifying data [...] Abuse Current, Marijuana, Daily, (more content not included)...[facility] Medical CenterComment on above:Result Comment: Electronically Signed By: APARNA PRATT, Roshan Hargrove\Date and Time Signed: 01/23/24 15:20 EDTPathology Noteon 52-31-0881Qzykyhqmm [id number]#1.00TIFFNoProMedica Toledo HospitalPathology Noteon 81-87-0879Spaycqmrz Note [id number]#1.00[facility] Medical CenterGeneral Surgery Office/Clinic Noteon 88-28-2790Qfuozdq Surgery Office/Clinic NoteChief Complaint post operative follow up HPI Staff [...] swallowing difficulties, no hearing loss, no ear infection(s),no nose bleeds. Cardiovascular: normal blood pressure, no [...] - Not Given Postpone due to refusal [facility] CenterComment on above:Result Comment: Electronically Signed By: APARNA PRATT, Roshan Horner\.br\Date and Time Signed: 01/18/24 15:09 EDT Operative Reporton 03-07-0422Kxzzsqvtf Report [id number]#1.00TIFSt. Charles HospitalConsent for Procedure/Surgeryon 40-66-5205Ykdozcp for Procedure/Surgery [id number]#1.00[facility] Medical CenterLab Reportson 43-77-0820Vbl Reports [id number]#1.00[facility] Medical CenterAmbulatory Visit Summaryon 49-85-7709Mtkkpslpti Visit Summary LANEYMICHEALADELINA :1960 Visit Date:01/02/2024 Ambulatory Visit Instructions Your Care Team Attending Physician - APARNA PRATT, Roshan Horner Primary Care Physician - Michael Holley MD This Is Your Medications List alprazolam (alprazolam 0.25 mg Tab) aspirin (aspirin 81 mg Oral EC Tab) cyclobenzaprine (cyclobenzaprine 10 mg Tab) gabapentin (gabapentin 300 mg Cap) hydrochlorothiazide-losartan (Hyzaar 12.5 mg-50 mg Tab) Procedures Performed [...] EDT With: Kishan PRATT, Michael Barker Where: [facility] Surgery Office/Clinic Noteon 19-16-0303Nxzvlax Surgery Office/Clinic NoteChief Complaint update H&P HPI Staff Presents to [...] emergency; reports less nipple discharge on left; somesoreness. on baby asa daily, no NSAID use; no tobacco use. Review of Systems PHQ Score Initial Depression Screen Score: 0 SCORE ROS - Provider Constitutional: no fever, no sweats, no weight loss. Eyes: yes glasses, no blurred vision, no visual loss. ENMT: no dentures, no hoarseness, no swallowing difficulties, no hearing loss, no ear infection(s),no nose bleeds. Cardiovascular: normal blood pressure, no [...] 11/08/2022 Substance Abuse Current, (more content not included)...[facility] Medical CenterComment on above:Result Comment: Electronically Signed By: APARNA PRATT, Roshan Horner\tony\Date and Time Signed: 01/02/24 16:28 EDTInsurance Correspondenceon 12-25-2023 Insurance [id number]#1.00TIFFNormal [facility] Medicine Office/Clinic Noteon 18-72-2705Kgzjpg Medicine Office/Clinic NoteHPI Staff Adelina is a 63 year old [...] the elevated BP and then the abnormal EKG,all testing fine so now scheduled December 05 for the lumpectomy History of Present Illness Adelina Mir is a 63-year-old female who presents for evaluation of multiple medical concerns. She has a biopsy for her breast scheduled on 12/06/2023. She continues to take losartan and baby aspirin as prescribed. Her field control inspector diagnosed her with white coat syndrome. Review [...] with voice recognition artificial intelligence software, specifically [employer], Jibbigo and or NeoReach. Substitutions may have occurred due to the inherent limitations of voice recognition and artificial intelligence software. Documentation services were performed after patient or guardian consented to allow Ver[employer] to record this visit. JONATHAN reimbursement specialist and provider reviewed before signing. JONATHAN: [...] - Not Given Postpone due to refusal [facility] Medical CenterComment on above:Result Comment: Electronically Signed By: Michael Holley MD\.br\Date and Time Signed: 11/28/23 15:21 EDT\.br\Electronically Co-Signed By: Lucy Hines\.br\Date and Time Co- Signed: 11/27/23 15:18EDTMedication Consenton 91-59-3672Qexviawxse Consent [id number]#1.00TIFFAdena Pike Medical CenterAmbulatory Visit Summaryon 53-77-0304Xgiljitxyi Visit Summary ADELINA MIR Yrn :1960 Visit Date:11/27/2023 Ambulatory Visit Instructions Your Diagnosis Abnormal EKG Anxiety BMI 23.0-23.9, adult Former smoker Your Care Team Attending Physician - Michael Holley MD Primary Care Physician - Michael Holley MD This Is Your Medications List alprazolam (alprazolam 0.25 mg Tab) aspirin (aspirin 81 mg Oral EC Tab) cyclobenzaprine (cyclobenzaprine 10 mg Tab) gabapentin (gabapentin 300 mg Cap) hydrochlorothiazide-losartan (Hyzaar 12.5 mg-50 mg Tab) Procedures Performed [...] PM EDT With: Michael Holley MD Where: [facility] HospitalConsent for Procedure/Surgeryon 64-31-9034Kclwmat for Procedure/[id number]#1.00TIFSt. Charles HospitalConsent for Treatmenton 76-28-3784Nbmneur for Treatment [id number]#1.00TIFSt. Charles HospitalFormson 20-14-1492NrpayXbdn with office visit note to Dr. Braun's office [id number]#1.00TIFSt. Charles HospitalHeart and Vascular Office/Clinic Noteon 47-97-2732Ntuqz and Vascular Office/Clinic NoteHistory of Present Illness Patient is a very [...] of some mild dyspnea on exertion. She feelsmuch better with blood pressure control. In our office today her blood pressure is 132/82 with a pulse of 90 and regular. Physical exam demonstrates clear lungs bilaterally, 2+ carotid upstroke with a loud right-sided bruit isolated to the clavicular area, regular rate and rhythm with a 3/6 systolic ejection murmur best heard at the upperright sternal border, no diastolic murmurs, no S3, [...] Oral, Daily, 3 refills Allergies Entex (Unknown) Carmen (more content not included)...[facility] Medical CenterComment on above:Result Comment: Electronically Signed By: BEVERLY PRATT, Osmin Fried.br\Date and Time Signed: 10/31/23 14:46 ESTNM Myocardial Spect Rest/Stress 1 Dayon 20-41-2692LR Myocardial Spect Rest/Stress 1 DayExam Date/Time: 10/24/2023 15:00 EST Reason for Exam: [...] was 0.98. The ejection fraction was 50%. End- diastolic volume was 117 mL. CONCLUSIONS: Negative Lexiscan stress test. Overall low risk stress. Of note, ejection fraction of 50% and some artifact diminishes sensitivity of this test. FINAL REPORT Signed (Electronic Signature): 10/31/2023 11:27 am Signed by: Sheila PRATT, Roberto Locke Transcribed by: katherine Technologist: MEGGAN Technical Comments Rest Dose (mCi Tc99m Cardiolite): 10 Stress Dose (mCi Tc99M Cardiolite): 29.9[facility] Physician Orderon 25-10-3475Prguxqkyx Order [id number]#1.00TIFFAdena Pike Medical CenterUS Carotid Duplex Bilateralon 49-90-6195HD Carotid Duplex BilateralExam Date/Time: 10/24/2023 10:23 EST Reason for Exam: R09.89;Bruit Report [facility] [id number] IMPRESSION: NEGATIVE STUDY. NO EVIDENCE OF SIGNIFICANT [...] Carotid Diagnostic Criteria Committee. Vascular Medicine 2020; https://journals.Inspiviapub.com/doi/full/10.1177/4538294D654011797 Ordering Provider: Osmin PAUL FINAL REPORT Dictated: 10/25/2023 10:17 am Arnold Tyler Signed (Electronic Signature): 10/25/2023 10:17 am Signed by: Arnold Tyler Transcribed by: ROSMERY Technologist: SILVESTRE Technical Comments Velocities Right Vert. Antegrade Yes Velocities Left Vert. Antegrade NoNormalMercy Memorial HospitalConsent for Treatmenton 63-06-8237Ouldtkf for Treatment [id number]#1.00TIFFNormalFort Hamilton Hospital Medicine Office/Clinic Noteon 99-87-2776Cnchia Medicine Office/Clinic NoteHPI Staff Adelina is a 62 year old [...] stress test, scheduled to be conducted at [facility]. She had two previous appointments and was [...] about the stress test. She informed Dr. Braun's office that the procedure had been postponed. [...] not able to get scheduled at the [facility],so at this time this is at hold [...] get all of this scheduled GEORGETTE through [employer] now since the patient was unable to get it done at [facility]. The patient will let us know when this is done and we will try to get her cleared as soon as possible for her lumpectomy. Portions of this record may have been created with voice recognition artificial intelligence software, specifically [employer], Jibbigo and or NeoReach. Substitutions may have occurred due to the inherent limitations of voice recognition and artificial intelligence software. Documentation services were performed after patient or guardian consented to allow [employer]ed to record this visit. JONATHAN reimbursement specialist and provider reviewed before signing. JONATHAN: [...] Household tobacco concerns: (more content not included)... [facility] Medical CenterComment on above:Result Comment: Electronically Signed By: Michael Holley MD\.br\Date and Time Signed: 10/11/23 10:22 EST\.br\Electronically Co-Signed By: Lucy Hines\.br\Date and Time Co- Signed: 10/02/23 14:56EST\.br\Electronically Co-Signed By: Lucy Hines\.br\Date and Time Co-Signed: 10/04/23 19:46 ESTAmbulatory Visit Summaryon 52-38-1777Vxjgfhicjj Visit Summary ADELINA MIR :1960 Visit Date:10/02/2023 Ambulatory Visit Instructions Your Diagnosis Mass of left breast Primary hypertension Your Care Team Attending Physician - Michael Holley MD Primary Care Physician - Michael Holley MD This Is Your Medications List alprazolam (alprazolam 0.25 mg Tab) cyclobenzaprine (cyclobenzaprine 10 mg Tab) gabapentin (gabapentin 300 mg Cap) hydrochlorothiazide-losartan (Hyzaar 12.5 mg-50 mg Tab) Procedures Performed [...] PM EDT With: Michael Holley MD Where: [facility] Medicine [facility] Educationon 51-46-5227Acnygfd EducationNutrition BMI for Adults What is BMI? Body mass index (BMI) is a number that is calculated from a person's weight and height. BMI can help estimate how much of a person's weight is composed of fat. BMI does not measure body fat directly.Rather, it is an alternative to procedures that [...] your height. Both height and weight are measured,and the BMI is calculated from those numbers. This can be done either in [place] ([place] or metric measurements. Note that charts and online BMI calculators are available to help you find your BMI quickly and easily without having to do these calculations yourself. To calculate your BMI in [place] (U.S.) measurements: 1. Measure your weight in [...] meters squared number. In this example: 70 ?3.1 = 22.6. This is your BMI. What [...] for Disease Control and Prevention: www.cdc.gov ? Italian Heart Association: www.heart.org ? National Heart, Lung, and Blood [place]: www.nhlbi.nih.gov Summary ? Body mass index (BMI) is a number that is calculated from a person's weight and height. ? BMI may help estimate how much of a person's weight is composed of fat. BMI can help identify those who may be at higher risk for certain medical problems. ? BMI can be measured using [place] measurements or metric measurements. ? BMI charts are used to identify whether you are underweight, normal weight, overweight, or obese. This information is not intended to replace advice given to you by your health care provider. Make sure you discuss any questions you have with your health care provider. Document Revised: 05/13/2020 Document Reviewed: 03/20/2020 [employer] Patient Education ? 2022 [employer].[facility] Physician Orderon 00-87-5125Sowbezqaw Order [id number]#1.00TIFFAdena Pike Medical CenterFormson 11-85-9810Xuvrwvvhb lipid panel to hector schafer, received confirmation fax went thru [id number]#1.00TIFFAdena Pike Medical CenterInsurance Correspondenceon 62-27-1691Tqvmlzmrj Correspondence [id number]#1.00TIFFFormerly McDowell HospitalSt. Agnes HospitalAmbulatory Visit Summaryon 78-65-6529Cbwhyvkzfd Visit Summary ADELINA MIR :1960 Visit Date:09/07/2023 Ambulatory Visit Instructions Your Diagnosis BMI 23.0-23.9, adult Former smoker Your Care Team Attending Physician - Michael Holley MD Primary Care Physician - Michael Holley MD This Is Your Medications List alprazolam (alprazolam 0.25 mg Tab) cyclobenzaprine (cyclobenzaprine 10 mg Tab) gabapentin (gabapentin 300 mg Cap) hydrochlorothiazide-losartan (Hyzaar 12.5 mg-50 mg Tab) Procedures Performed [...] PM EST With: Michael Holley MD Where: [facility] Family Medicine [place] [id number]- \.br\ Medications\.br\ What How Much When Instructions\.br\ Unchanged alprazolam (alprazolam 0.25 mg Tab) 1 Tablets By Mouth 3 times a day\.br\Unchanged cyclobenzaprine (cyclobenzaprine 10 mg Tab) 1 Tablets By Mouth At bedtime as needed for for spasm\.br\ Unchanged gabapentin (gabapentin 300 mg Cap) 1 Capsules By Mouth 2 times a day\.br\ Unc hanged hydrochlorothiazide-losartan (Hyzaar 12.5 mg-50 mg Tab) 1 Tablets By Mouth Every day\.br\ Allergies\.br\ Entex (Unknown)\.br\ Skelaxin (Unknown)\.br\ corticosteroids (Anaphylaxis)\.br\ Problems\.br\ Ongoing - Any problem that you are currently receiving treatment for.\.br\ ADHD\.br\ BMI 24.0-24.9, adult\.br\ Complex regional pain syndrome of lower limb\.br\ Dysuria\.br\ Essential tremor\.br\ Generalized anxiety disorder\.br\ Hx of osteoarthritis\.br\ Idiopathic polyneuropathy\.br\ Mass of left breast\.br\ Nipple discharge\.br\ Scoliosis\.br\ Historical - Any problem that you are no longer receiving treatment for.\.br\ Polyneuropathy\.br\ RSD lower limb\.br\ Patient Survey\.br\ You may receive a survey via text or e-mail asking about your office visit. Please share your experience with us by completing your survey. We appreciate your feedback and thank you for choosing us for yourcare.\.br\ \.br\[facility] HospitalConsent for Treatmenton 09-07-2023 Consent for [id number]#1.00TIFFNormal [facility] HospitalFawesson memorial hospital Medicine Office/Clinic Noteon 55-45-3796Juuooq Medicine Office/Clinic NoteHPI Staff Adelina is a 62 year old female presenting for surgical clearance, abnormal EKG Saw Dr Paul today at [facility] and Has orders for stress test and lipid panel, she'll be called for scheduling of the stress test. Her BP was elevated there and he rxed losartan hctz and she has to pickit up yet. Surgery: Breast lump ecxcised Surgeon: Dr Braun Date: 09/13/23 will probably be rescheduled. 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 - Will add meds if needed. [...] - Not Given Postpone due to refusal [facility] Medical CenterComment on above:Result Comment: Electronically Signed By: Kishan PRATT, Michael Ball.oh\Date and Time Signed: 09/07/23 15:56 ESTHeart and Vascular Office/Clinic Noteon 55-52-6616Mjbza and Vascular Office/Clinic NoteHistory of Present Illness Patient is a very [...] does not take her blood pressure at home.She has never had a stress test, catheterization, TIA or CVA. In our office today her blood pressure is 149/102 and repeat was 201/121 with a pulse of 97 and regular. Physical exam demonstrates clear lungs bilaterally, 2+ carotid upstroke with a loud right-sided bruit isolated to the clavicular area, regular rate and rhythm with a 3/6 systolic ejection murmurbest heard at the upper right sternal border, [...] appropriate for agesensation equal & normal bilaterally, speechnormal Psychiatric: cooperative, affect appropriate for age, normal [...] discharge Scoliosis Historical Po (more content not included)...[facility]ike Medical CenterComment on above:Result Comment: Electronically Signed By: BEVERLY PRATT, Osmin Fried.br\Date and Time Signed: 09/07/23 14:13 ESTInsurance Correspondenceon 52-96-5730Gzwgcjmss [id number]#1.00[facility] CenterPhysician Orderon 24-51-4795Csuynwcjn Order [id number]#1.00TIFSt. Charles HospitalPhysician [id number]#1.00TIFNoal [facility] Memorial HospitalECG 12-Leadon 12-17-3252WAG 12-Lead [id number]#1.00[facility]itt[facility] Medical CenterECG 12-[id number]#1.00[facility]itt[facility] Medical CenterC Urineon 51-49-8691Sxyrpefv identified Cx Nom (U) Microbiology PROCEDURE: Urine Culture [R1] SOURCE: U CleanCatch BODY SITE: COLLECTED DATE/TIME: 08/09/2023 16:21 EST RECEIVED DATE/TIME: 08/09/2023 19:37 EST START DATE/TIME: 08/09/2023 19:37 EST FREE TEXT SOURCE: Kishan PRATT, Michael Holley MD, Michael Barker FINAL REPORTS Final Report [] Verified Date/Time: 08/11/2023 09:17 EST 2,000 cfu/ml Mixed skin contaminants Performing Locations R1: This test was performed at: [facility], [address] [place] [address], [address] , , YeqpeyOmwbumAdena Pike Medical CenterComment on above:Performed By: #### [id number] ####[place] [id number] [place] [id number] for Procedure/Surgeryon 61-77-3761Hrzstrk for Procedure/Surgery [id number]#1.00[facility] Medical CenterAmbulatory Visit Summaryon 98-35-5230Kazvzvtrkj Visit Summary ADELINA MIR :1960 Visit Date:08/09/2023 Ambulatory Visit Instructions Your Diagnosis Dysuria Blood pressure elevated without history of HTN BMI 23.0-23.9, adult Former smoker Tests Performed Urnls Dip Stick Auto w/o Microscopy POC 41597 Your Care Team Attending Physician - Michael [...] PM EST With: Michael Holley MD Where: [facility] HospitalAmbulatory Visit Summary ADELINA MIR :1960 Visit Date:08/09/2023 [...] EST With: Kishan PRATT, Michael Barker Where: [place] [id number] \.br\ Medications\.br\ What How Much When Instructions\.br\ Unchanged alprazolam (alprazolam 0.25 mg Tab) 1 Tablets By Mouth 3 times a day Contact prescribing physician if questions or concerns \.br\ Unchanged cyclobenzaprine (cyclobenzaprine 10 mg Tab) 1 Tablets By Mouth At bedtime as needed for for spasm Contact prescribing physician if que stions or concerns \.br\ Unchanged gabapentin (gabapentin 300 mg Cap) 1 Capsules By Mouth 2 times aday Contact prescribing physician if questions or concerns [...] Essential tremor\.br\ Generalized anxiety disorder\.br\ Hx of osteoarthritis\.br\ Idiopathic polyneuropathy\.br\ Mass of left breast\.br\ Nipple discharge\.br\ Scoliosis\.br\ Historical - Any problem that you are no longer receiving treatment for.\.br\ Polyneuropathy\.br\ RSD lower limb\.br\ Patient Survey\.br\ You may receive a survey via text or e-mail asking about your office visit. Please share your experience with us by completing your survey. We appreciate your feedback and thankyou for choosing us for your care.\.br\ \.br\[facility] Medicine Office/Clinic Noteon 78-17-4158Fvmemv Medicine Office/Clinic NoteHPI Staff Adelina is a 62 year old [...] Urnls Dip Stick Auto w/o Microscopy POC 69836 2. Blood pressure elevated without history of HTN (R03.0: Elevated blood- pressure reading, without diagnosis of hypertension) - Resolved 3. BMI 23.0-23.9, adult (Z68.23: Body mass index [BMI] 23.0-23.9, adult) - BMI education uploaded. 4. Former smoker (Z87.891: Personal history of nicotine dependence) - Please continue to not smoke. Ordered: Urnls Dip Stick Auto w/o Microscopy POC 87434 Orders: fluconazole, 150 mg = 1 tab(s), [...] Dipstick: 2+ (100 mg/dl) (08/09/23 16:03:00) Specific [place] Urine Dipstick: 1.020 (08/09/23 16:03:00) Urine Appearance Urine Dipstick: Slightly cloudy (08/09/23 16:03:00) Urine Color Urine Dipstick: Yellow (08/09/23 16:03:00) Urobilinogen Urine Dipstick: Normal 0.2-1 EU/dl (08/09/23 16:03:00) pH Urine Dipstick: 6 (08/09/23 16:03:00)NormalMercy Memorial HospitalComment on above:Result Comment: Electronically Signed By: Kishan PRATT, Michael Ball.br\Date and Time Signed: 08/09/23 16:05 ESTGeneral Surgery Office/Clinic Noteon 54-26-0728Gtzcwad Surgery Office/Clinic NoteChief Complaint f/u nipple discharge HPI Staff Presents [...] aspect of nipple; 5 mm nodule at 5o'clock position, nipple drainage when nodule compressed; nontender, [...] - Not Given Postpone due to refusal [facility] Medical CenterComment on above:Result Comment: Electronically Signed By: APARNA PRATT, Roshan Hargrove\Date and Time Signed: 08/09/23 15:03 EST Patient Educationon 78-60-0213Szdpkxj EducationNutrition BMI for Adults What is BMI? Body mass index (BMI) is a number that is calculated from a person's weight and height. BMI can help estimate how much of a person's weight is composed of fat. BMI does not measure body fat directly.Rather, it is an alternative to procedures that [...] your height. Both height and weight are measured,and the BMI is calculated from those numbers. This can be done either in [place] (U.S[place] or metric measurements. Note that charts and online BMI calculators are available to help you find your BMI quickly and easily without having to do these calculations yourself. To calculate your BMI in [place] ([place] measurements: 1. Measure your weight in [...] meters squared number. In this example: 70 ?3.1 = 22.6. This is your BMI. What [...] for Disease Control and Prevention: www.cdc.gov ? [place] Heart Association: www.heart.org ? National Heart, Lung, and Blood [place]: www.nhlbi.nih.gov Summary ? Body mass index (BMI) is a number that is calculated from a person's weight and height. ? BMI may help estimate how much of a person's weight is composed of fat. BMI can help identify those who may be at higher risk for certain medical problems. ? BMI can be measured using Ch[place] measurements or metric measurements. ? BMI charts are used to identify whether you are underweight, normal weight, overweight, or obese. This information is not intended to replace advice given to you by your health care provider. Make sure you discuss any questions you have with your health care provider. Document Revised: 05/13/2020 Document Reviewed: 03/20/2020 [employer] Patient Education ? 2022 [employer].[facility] Nurse Consultation Noteon 78-06-5127Dggib Consultation NoteReason for Visit Here for BP check, elevated [...] - Not Given Postpone due to refusal [facility] CenterF[facility]on [facility] Medicine Office/Clinic Noteon 07-24-2023 Family Medicine Office/Clinic NoteHPI Staff Adelina is a 62 year old [...] elevated without history of HTN (R03.0: Elevated blood- pressure reading, without diagnosis of hypertension) - Will [...] - Not Given Postpone due to refusal [facility] CenterComment on above:Result Comment: Electronically Signed By: Kishan PRATT, Michael Ball.br\Date and Time Signed: 07/24/23 14:32 EST General Surgery Office/Clinic Noteon 66-17-6201Xlntidp Surgery Office/Clinic NoteChief Complaint breast biopsy follow up HPI Staff [...] swallowing difficulties, no hearing loss, no ear infection(s),no nose bleeds. Cardiovascular: normal blood pressure, no [...] with intermittent spontaneous left breast discharge; f/u in1 month for revaluation, once healed from biopsy; [...] anxiety disorder Hx of osteoarthritis Idiopathic polyneuropathy assisted current use of opiate analgesic Mass of [...] - Not Given Postpone due to refusal [facility] CenterComment on above:Result Comment: Electronically Signed By: APARNA PRATT, Roshan Horner\.br\Date and Time Signed: 07/13/23 16:04 EST Ambulatory Visit Summaryon 65-34-8883Aipfhvxmod Visit Summary ADELINA MIR :1960 Visit Date:07/12/2023 Ambulatory Visit Instructions Your Care Team Attending Physician - Roshan BRAUN MD Primary Care Physician - Michael Holley [...] PM EST With: Michael Holley MD Where: [address], [address], [place] [address]- \.br\ Medications\.br\ What How Much When Instructions\.br\ [...] Essential tremor\.br\ Generalized anxiety disorder\.br\ Hx of osteoarthritis\.br\ Idiopathic polyneuropathy\.br\ Long termcurrent use of opiate analgesic\.br\ Mass of left breast\.br\ Nipple discharge\.br\ Scoliosis\.br\ Historical - Any problem that you are no longer receiving treatment for.\.br\ Polyneuropathy\.br\ RSD lower limb\.br\ Patient Survey\.br\ You may receive a survey via text or e-mail asking about your office visit. Please share your experience with us by completing your survey. We appreciate your feedback and thank you for choosing us for your care.\.br\ \.br\[facility] Fin[facility] CenterRAD - Ultrasound Reporton 99-58-9293LCE - Ultrasound [id number]#1.00TIFFNormalEcu Healther Thomas B. Finan CenterPathology Noteon 39-85-5977Jioigxvgx Note [id number]#1.00TIFFNomaamealEcu Healther Thomas B. Finan CenterOutside Mammographyon 12-46-7924Aadcsit Mammography [id number]#1.00TIFFNormDayton Osteopathic HospitalRAD - Ultrasound Reporton 00-76-9095OXC - Ultrasound Report [id number]#1.00TIFSt. Charles HospitalFacesheeton 24-23-7287Uinucbciw [id number]#1.00TIFSt. Charles HospitalAmbulatory Visit Summaryon 33-90-4042Thpjlgwaen Visit Summary ADELINA MIR :1960 Visit Date:06/20/2023 [...] PM EST With: Michael Holley MD [facility] HospitalLab Reportson 70-40-4384Gea Reports [id number]#1.00CD:[address] [place], [place] [address]Physician Referralon 68-35-8641Faqddsmvz Referral [id number]#1.00CD:[address] [place], [place] [address]Covid-19 PCR (CVDTBH)on 36-54-9622RLYG-CoV-2 (COVID-19) RNA LUDIN+probe Ql (Unsp spec)DetectedCritically abnormalNOT DETECTEDThe St. John Of God HospitalComment on above:Result Comment: This test is not yet approved or cleared by the [place] FDA. When there are no FDA-approved or cleared tests available, and other criteria are met, FDA can make tests available under an emergency access mechanism called an Emergency Use Authorization (EUA). The EUA for this test is supported by the [place] of Health and Human Service's (HHS's) declaration [...] which the test may no longer be used).Performed By: #### CVDTBH #### [facility] [address] [place] [address] Dr. Anderson Packer Vital Signs Date TimeVital SignValuePerforming RichynqefHdkxgskw97-45-3501 11:30-0400Body zjewkrgifhy14 [degF]Michael Holley MD Work Phone: [phone]08-20-2025 11:30-0400 Body eachbv69.43 kgmugolden Holley MD Work Phone: [phone]08-20-2025 11:30-0400 Diastolic blood cmiidbxk60 mm[Hg]Michael Holley MD Work Phone: [phone]08-20-2025 11:30-0400 Heart rate63 /Amy Holley MD Work Phone: [phone]08-20-2025 11:30-0400 Respiratory rate20 /Amy Holley MD Work Phone: [phone]08-20-2025 11:30-0400 SaO2% (BldA) [Mass fraction]96 %Michael Holley MD Work Phone: [phone]08-20-2025 11:30-0400 Systolic blood qeqqfipp827 mm[Hg]Michael Holley MD Work Phone: [facility], [place]06-03-2025 11:04-0400 Body epkbpp329.18 cmSquinten Holley MD Work Phone: 1(885)[address] [place], [place] 2780306-03-2025 11:04-0400 Body mass index (BMI) [Ratio]18.8 kg/m7IcradsMichael Holley MD Work Phone: 1(914)[address]06-03-2025 11:04-0400 Body .43 kgMichael Holley MD Work Phone: 1(802)[address] [place], [place] 2780306-03-2025 11:04-0400 Diastolic blood tzilgner013 mm[Hg]Michael Holley MD Work Phone: 1(518)[address]06-03-2025 11:04-0400 Heart rate92 /Amy Holley MD Work Phone: 1(594)[address] [place], [place] 2780306-03-2025 11:04-0400 Respiratory rate18 /Amy Holley MD Work Phone: 1(741)[address] [place], [place] 2780306-03-2025 11:04-0400 SaO2% (BldA) [Mass fraction]99 %Michael Holley MD Work Phone: 1(840)[address] [place], [place] 2780306-03-2025 11:04-0400 Systolic blood znczopxu048 mm[Hg]Michael Holley MD Work Phone: 1(445)[address] [place], [place] 2780304-30-2025 10:24-0400 Body eovzda58.96 kgMichael Holley MD Work Phone: 1(344)[address] [place], [place] 2780304-30-2025 09:39-0400 Body tenxfc682.18 cmSquinten Holley MD Work Phone: 1(669)[address] [place], [place] 2780304-30-2025 09:39-0400 Body mass index (BMI) [Ratio]20.3 kg/e4ZnnghiMichael Holley MD Work Phone: 1(851)[address] [place], [place] 2780304-30-2025 09:39-0400 Body qsgwydybnqs28.4 [degF]Michael Holley MD Work Phone: 1(850)96[address]04-30-2025 09:39-0400 Diastolic blood vwzxrydm26 mm[Hg]Michael Holley MD Work Phone: 1(375)[address] [place], [place] 2780304-30-2025 09:39-0400 Heart rate66 /Amy Holley MD Work Phone: 1(428)[address] [place], [place] 2780304-30-2025 09:39-0400 Respiratory rate18 /Amy Holley MD Work Phone: 1(823)[address] [place], [place] 2780304-30-2025 09:39-0400 SaO2% (BldA) [Mass fraction]98 %Michael Holley MD Work Phone: 1(264)[address] [place], [place] 2780304-30-2025 09:39-0400 Systolic blood qkhonxqw392 mm[Hg]Michael Holley MD Work Phone: 1(462)[address] [place], [place] 2780304-23-2025 10:25-0400 Body bqigcmgvide61 [degF]Michael Holley MD Work Phone: 1(640)[address] [place], [place] 2780304-23-2025 10:25-0400 Body ijwiai75.51 kgMichael Holley MD Work Phone: 1(486)[address] [place], [place] 2780304-23-2025 10:25-0400 Diastolic blood gvizjfbn49 mm[Hg]Michael Holley MD Work Phone: 1(763)[address] [place], [place] 2780304-23-2025 10:25-0400 Heart rate68 /Amy Holley MD Work Phone: 1(599)[address] [place], [place] 2780304-23-2025 10:25-0400 Respiratory rate16 /Amy Holley MD Work Phone: 1(379)[address] [place], [place] 2780304-23-2025 10:25-0400 SaO2% (BldA) [Mass fraction]100 %Michael Holley MD Work Phone: 1(368)[address] [place], [place] 2780304-23-2025 10:25-0400 Systolic blood zggteajt916 mm[Hg]Michael Holley MD Work Phone: 1(592)[address]04-17-2025 11:26-0400 Body kbqhqu052.18 cmSquinten Holley MD Work Phone: 1(189)[address] [place], [place] 2780304-17-2025 11:26-0400 Body bujixpfjjny29.6 [degF]Michael Holley MD Work Phone: 1(230)[address] [place], [place] 2780304-17-2025 11:26-0400 Body tjggou68.87 kgMichael Holley MD Work Phone: 1(363)[address] [place], [place] 2780304-17-2025 11:26-0400 Diastolic blood wfuzkrmi29 mm[Hg]Michael Holley MD Work Phone: 1(801)[address] [place], [place] 2780304-17-2025 11:26-0400 Heart rate74 /Amy Holley MD Work Phone: 1(166)[address] [place], [place] 2780304-17-2025 11:26-0400 Respiratory rate20 /Amy Holley MD Work Phone: 1(770)[address] [place], [place] 2780304-17-2025 11:26-0400 SaO2% (BldA) [Mass fraction]98 %Michael Holley MD Work Phone: 1(948)[address] [place], [place] 2780304-17-2025 11:26-0400 Systolic blood mm[Hg]Michael Holley MD Work Phone: 1(920)[address] [place], [place] 2780304-09-2025 10:49-0400 Diastolic blood mm[Hg]Michael Holley MD Work Phone: 1(966)[address] [place], [place] 2780304-09-2025 10:49-0400 Systolic blood mm[Hg]Michael Holley MD Work Phone: 1(797)[address] [place], [place] 2780304-09-2025 10:43-0400 Body gjybne384.18 Santhosh Holley MD Work Phone: 1(214)[address] [place], [place] 2780304-09-2025 10:43-0400 Body mass index (BMI) [Ratio]20.3 kg/s4DyillcMichael Holley MD Work Phone: 1(419)[address]04-09-2025 10:43-0400 Body gmopfitgvty06.9 [degF]Michael Holley MD Work Phone: 1(090)[address] [place], [place] 2780304-09-2025 10:43-0400 Body pmorri42.96 kgMichael Holley MD Work Phone: 1(383)[address] [place], [place] 2780304-09-2025 10:43-0400 Heart rate94 /Amy Holley MD Work Phone: 1(955)[address] [place], [place] 2780304-09-2025 10:43-0400 Respiratory rate18 /Amy Holley MD Work Phone: 1(330)[address] [place], [place] 2780304-09-2025 10:43-0400 SaO2% (BldA) [Mass fraction]98 %Michael Holley MD Work Phone: 1(682)[address] [place], [place] 2780304-02-2025 10:35-0400 Body hdmhygpdmlf26.8 [degF]Michael Holley MD Work Phone: 1(985)[address] [place], [place] 2780304-02-2025 10:35-0400 Diastolic blood msubpmvo08 mm[Hg]Michael Holley MD Work Phone: 1(667)[address] [place], [place] 2780304-02-2025 10:35-0400 Heart rate78 /Amy Holley MD Work Phone: 1(276)[address] [place], [place] 2780304-02-2025 10:35-0400 Respiratory rate18 /Amy Holley MD Work Phone: 1(023)[address] [place], [place] 2780304-02-2025 10:35-0400 SaO2% (BldA) [Mass fraction]98 %Michael Holley MD Work Phone: 1(367)[address] [place], [place] 2780304-02-2025 10:35-0400 Systolic blood xyaegtxl223 mm[Hg]Michael Holley MD Work Phone: 1(251)[address] [place], [place] 2780303-26-2025 11:05-0400 Body cvjtkpfdcwu01.9 [degF]Michael Holley MD Work Phone: 1(942)[address] [place], [place] 2780303-26-2025 11:05-0400 Body wvxwac30.28 kgMichael Holley MD Work Phone: 1(348)[address] [place], [place] 2780303-26-2025 11:05-0400 Diastolic blood mm[Hg]Michael Holley MD Work Phone: 1(967)[address] [place], [place] 2780303-26-2025 11:05-0400 Heart rate75 /Amy Holley MD Work Phone: 1(949)[address] [place], [place] 2780303-26-2025 11:05-0400 Respiratory rate18 /Amy Holley MD Work Phone: 1(277)[address] [place], [place] 2780303-26-2025 11:05-0400 SaO2% (BldA) [Mass fraction]99 %Michael Holley MD Work Phone: 1(080)[address] [place], [place] 2780303-26-2025 11:05-0400 Systolic blood mm[Hg]Michael Holley MD Work Phone: 1(244)[address] [place], [place] 2780303-19-2025 15:34-0400 Body zhwsde567.18 cmSquinten Holley MD Work Phone: 1(562)[address] [place], [place] 2780302-26-2025 10:44-0500 Body qjydqu01.78 kgMichael Holley MD Work Phone: 1(964)[address] [place], [place] 2780302-26-2025 10:03-0500 Body vjgllhlatob32.4 [degF]Michael Holley MD Work Phone: 1(943)[address] [place], [place] 2780302-26-2025 10:03-0500 Diastolic blood xyosqepx47 mm[Hg]Michael Holley MD Work Phone: 1(409)[address] [place], [place] 2780302-26-2025 10:03-0500 Heart rate82 /Amy Holley MD Work Phone: 1(901)[address] [place], [place] 2780302-26-2025 10:03-0500 Respiratory rate20 /Amy Holley MD Work Phone: 1(006)[address] [place], [place] 2780302-26-2025 10:03-0500 SaO2% (BldA) [Mass fraction]98 %Michael Holley MD Work Phone: 1(090)[address] [place], [place] 2780302-26-2025 10:03-0500 Systolic blood pqfgumdq617 mm[Hg]Michael Holley MD Work Phone: 1(342)[address] [place], [place] 2780302-19-2025 11:00-0500 Body qgpytd835.18 cmSquinten Holley MD Work Phone: 1(123)[address] [place], [place] 2780302-19-2025 10:00-0500 Body wmwbnyupttg31.1 [degF]Michael Holley MD Work Phone: 1(484)[address] [place], [place] 2780302-19-2025 10:00-0500 Diastolic blood xlimukwd54 mm[Hg]Michael Holley MD Work Phone: 1(947)[address] [place], [place] 2780302-19-2025 10:00-0500 Heart rate87 /Amy Holley MD Work Phone: 1(465)[address] [place], [place] 2780302-19-2025 10:00-0500 Respiratory rate18 /Amy Holley MD Work Phone: 1(719)[address] [place], [place] 2780302-19-2025 10:00-0500 SaO2% (BldA) [Mass fraction]96 %Michael Holley MD Work Phone: 1(573)[address] [place], [place] 2780302-19-2025 10:00-0500 Systolic blood mm[Hg]Michael Holley MD Work Phone: 1(134)[address] [place], [place] 2780302-13-2025 13:39-0500 Body hnhaho163.18 Santhosh Holley MD Work Phone: 1(688)[address] [place], [place] 2780302-13-2025 13:39-0500 Body mass index (BMI) [Ratio]22.8 kg/q7ZalgxeMichael Holley MD Work Phone: 1(509)[address] [place], [place] 2780302-13-2025 13:39-0500 Body iccedn36.04 kgMichael Holley MD Work Phone: 1(614)[address] [place], [place] 2780302-13-2025 13:38-0500 Body .3 [degF]Michael Holley MD Work Phone: 1(438)[address]02-13-2025 13:38-0500 Diastolic blood zqklekwg60 mm[Hg]Mcihael Holley MD Work Phone: 1(935)[address] [place], [place] 2780302-13-2025 13:38-0500 Heart irgf697 /Amy Holley MD Work Phone: 1(236)[address] [place], [place] 2780302-13-2025 13:38-0500 Systolic blood ijpzvrfl708 mm[Hg]Michael Holley MD Work Phone: 1(746)[address] [place], [place] 2780302-12-2025 10:31-0500 Body czegch64.04 kgMichael Holley MD Work Phone: 1(002)[address] [place], [place] 2780302-12-2025 09:50-0500 Body rieauahmzhd94.8 [degF]Michael Holley MD Work Phone: 1(017)[address] [place], [place] 2780302-12-2025 09:50-0500 Body bzfazd58.68 kgMichael Holley MD Work Phone: 1(433)[address] [place], [place] 2780302-12-2025 09:50-0500 Diastolic blood wmbiobhc11 mm[Hg]Michael Holley MD Work Phone: 1(977)[address] [place], [place] 2780302-12-2025 09:50-0500 Heart cmst004 /Amy Holley MD Work Phone: 1(995)[address] [place], [place] 2780302-12-2025 09:50-0500 Respiratory rate18 /Amy Holley MD Work Phone: 1(169)[address] [place], [place] 2780302-12-2025 09:50-0500 SaO2% (BldA) [Mass fraction]100 %Michael Holley MD Work Phone: 1(880)[address] [place], [place] 2780302-12-2025 09:50-0500 Systolic blood oksneuqn117 mm[Hg]Michael Holley MD Work Phone: 1(932)[address] [place], [place] 2780301-30-2025 14:55-0500 Body dcvovlsymkg17.8 [degF]Michael Holley MD Work Phone: 1(954)[address] [place], [place] 2780301-30-2025 14:55-0500 Body nrxaps67.6 kgMichael Holley MD Work Phone: 1(844)[address] [place], [place] 2780301-30-2025 14:55-0500 Diastolic blood vrapljut11 mm[Hg]Michael Holley MD Work Phone: 1(645)[address] [place], [place] 2780301-30-2025 14:55-0500 Heart yfob679 /Amy Holley MD Work Phone: 1(580)[address] [place], [place] 2780301-30-2025 14:55-0500 Respiratory rate18 /Amy Holley MD Work Phone: 1(803)[address] [place], [place] 2780301-30-2025 14:55-0500 SaO2% (BldA) [Mass fraction]97 %Michael Holley MD Work Phone: 1(019)[address] [place], [place] 2780301-30-2025 14:55-0500 Systolic blood itwblbyj993 mm[Hg]Michael Holley MD Work Phone: 1(807)[address] [place], [place] 2780301-22-2025 08:00-0500 Body talzgypknky34.3 [degF]Michael Holley MD Work Phone: 1(999)[address] [place], [place] 2780301-22-2025 08:00-0500 Diastolic blood cudgvcve47 mm[Hg]Michael Holley MD Work Phone: 1(044)[address] [place], [place] 2780301-22-2025 08:00-0500 Heart ueht399 /Amy Holley MD Work Phone: 1(247)[address] [place], [place] 2780301-22-2025 08:00-0500 Respiratory rate20 /Amy Holley MD Work Phone: 1(527)[address] [place], [place] 2780301-22-2025 08:00-0500 SaO2% (BldA) [Mass fraction]95 %Michael Holley MD Work Phone: 1(138)[address] [place], [place] 2780301-22-2025 08:00-0500 Systolic blood guwjaxen807 mm[Hg]Michael Holley MD Work Phone: 1(566)[address] [place], [place] 2780301-22-2025 04:40-0500 Body kgMichael Holley MD Work Phone: 1(428)[address] [place], [place] 2780301-21-2025 15:52-0500 Body ebpetg404.18 Santhosh Holley MD Work Phone: 1(229)[address] [place], [place] 2780301-17-2025 04:00-0500 Inhaled oxygen flow rate2 L/minSquinten Holley MD Work Phone: 1(174)[address] [place], [place] 2780301-14-2025 17:50-0500 Body yfhpkzahvgy20.1 [degF]Michael Holley MD Work Phone: 1(459)[address] [place], [place] 2780301-14-2025 17:50-0500 Diastolic blood nyfabtlt17 mm[Hg]Michael Holley MD Work Phone: 1(154)[address] [place], [place] 2780301-14-2025 17:50-0500 Heart rate91 /Amy Holley MD Work Phone: 1(873)[address] [place], [place] 2780301-14-2025 17:50-0500 Respiratory rate20 /Amy Holley MD Work Phone: 1(497)[address] [place], [place] 2780301-14-2025 17:50-0500 SaO2% (BldA) [Mass fraction]94 %Michael Holley MD Work Phone: 1(053)[address] [place], [place] 2780301-14-2025 17:50-0500 Systolic blood ykimeyms72 mm[Hg]Michael Holley MD Work Phone: 1(472)[address] [place], [place] 2780301-14-2025 16:50-0500 Inhaled oxygen flow rate4 L/Amy Holley MD Work Phone: 1(826)[address] [place], [place] 2780301-14-2025 12:38-0500 Body mlybli410.18 Santhosh Holley MD Work Phone: 1(974)[address] [place], [place] 2780301-14-2025 12:38-0500 Body wdouus16 kgMichael Holley MD Work Phone: 1(754)[address] [place], [place] 2780301-14-2025 11:30-0500 Body nojfpvvpirz35 [degF]Michael Holley MD Work Phone: 1(687)[address] [place], [place] 2780301-14-2025 11:30-0500 Diastolic blood infxyyio29 mm[Hg]Michael Holley MD Work Phone: 1(703)[address] [place], [place] 2780301-14-2025 11:30-0500 Heart rate58 /Amy Holley MD Work Phone: 1(778)[address] [place], [place] 2780301-14-2025 11:30-0500 Inhaled oxygen flow rate4 L/Amy Holley MD Work Phone: 1(167)[address] [place], [place] 2780301-14-2025 11:30-0500 Respiratory rate14 /Amy Holley MD Work Phone: 1(824)[address] [place], [place] 2780301-14-2025 11:30-0500 SaO2% (BldA) [Mass fraction]97 %Michael Holley MD Work Phone: 1(168)[address] [place], [place] 2780301-14-2025 11:30-0500 Systolic blood sjvxydrp88 mm[Hg]Michael Holley MD Work Phone: 1(054)[address] [place], [place] 2780301-02-2025 10:05-0500 Body jeqtjyrjukp49.9 [degF]Michael Holley MD Work Phone: 1(745)[address] [place], [place] 2780301-02-2025 10:05-0500 Body .04 kgMichael Holley MD Work Phone: 1(686)[address] [place], [place] 2780301-02-2025 10:05-0500 Diastolic blood ewizxyjj73 mm[Hg]Michael Holley MD Work Phone: 1(520)[address] [place], [place] 2780301-02-2025 10:05-0500 Heart kper322 /Amy Holley MD Work Phone: 1(784)[address] [place], [place] 2780301-02-2025 10:05-0500 Respiratory rate18 /Amy Holley MD Work Phone: 1(189)[address] [place], [place] 2780301-02-2025 10:05-0500 SaO2% (BldA) [Mass fraction]95 %Michael Holley MD Work Phone: 1(233)[address]01-02-2025 10:05-0500 Systolic blood srnuyehu263 mm[Hg]Michael Holley MD Work Phone: 1(934)[address] [place], [place] 2780312-31-2024 13:42-0500 Body qzbfnxyzwmu34.2 [degF]Michael Holley MD Work Phone: 1(687)[address] [place], [place] 2780312-31-2024 13:42-0500 Body .22 kgMichael Holley MD Work Phone: 1(201)42226 [address]12-31-2024 13:42-0500 Diastolic blood mtloyzeo18 mm[Hg]Michael Holley MD Work Phone: 1(012)[address] [place], [place] 2780312-31-2024 13:42-0500 Heart njjd003 /Amy Holley MD Work Phone: 1(981)[address] [place], [place] 2780312-31-2024 13:42-0500 Respiratory rate16 /Amy Holley MD Work Phone: 1(258)[address] [place], [place] 2780312-31-2024 13:42-0500 SaO2% (BldA) [Mass fraction]91 %Michael Holley MD Work Phone: 1(866)[address] [place], [place] 2780312-31-2024 13:42-0500 Systolic blood ibfbbdrd982 mm[Hg]Michael Holley MD Work Phone: 1(222)[address] [place], [place] 2780312-18-2024 15:06-0500 Body woauhllrjdm71 [degF]Michael Holley MD Work Phone: 1(384)[address] [place], [place] 2780312-18-2024 15:06-0500 Body igqjhh45.49 kgMichael Holley MD Work Phone: 1(254)[address]12-18-2024 15:06-0500 Diastolic blood baoaoffx44 mm[Hg]Michael Holley MD Work Phone: 1(103)[address]12-18-2024 15:06-0500 Heart rate77 /Amy Holley MD Work Phone: 1(557)[address] [place], [place] 2780312-18-2024 15:06-0500 Respiratory rate20 /Amy Holley MD Work Phone: 1(925)[address] [place], [place] 2780312-18-2024 15:06-0500 SaO2% (BldA) [Mass fraction]98 %Michael Holley MD Work Phone: 1(349)[address] [place], [place] 2780312-18-2024 15:06-0500 Systolic blood rlwyxjbi259 mm[Hg]Michael Holley MD Work Phone: 1(377)[address] [place], [place] 2780312-05-2024 10:23-0500 Body .18 cmSquinten Holley MD Work Phone: 1(627)[address] [place], [place] 2780311-27-2024 14:14-0500 Body luuronsbeih28 [degF]Michael Holley MD Work Phone: 1(444)[address] [place], [place] 2780311-27-2024 14:14-0500 Body sohwcg41.03 kgMichael Holley MD Work Phone: 1(519)[address] [place], [place] 2780311-27-2024 14:14-0500 Diastolic blood drotcmfk337 mm[Hg]Michael Holley MD Work Phone: 1(462)[address] [place], [place] 2780311-27-2024 14:14-0500 Heart rate70 /Amy Holley MD Work Phone: 1(216)[address] [place], [place] 2780311-27-2024 14:14-0500 Respiratory rate20 /Amy Holley MD Work Phone: 1(519)[address] [place], [place] 2780311-27-2024 14:14-0500 SaO2% (BldA) [Mass fraction]99 %Michael Holley MD Work Phone: 1(869)[address] [place], [place] 2780311-27-2024 14:14-0500 Systolic blood gcthurvp258 mm[Hg]Michael Holley MD Work Phone: 1(214)[address] [place], [place] 2780311-18-2024 10:44-0500 Heart rate77 /minMichael NILL [facility]11-18-2024 10:44-8959WeZ4% (BldA) [Mass fraction]95 %Roshan VILLAGRANL [facility]11-18-2024 10:43-0500 Respiratory rate16 /minMichael NILL [facility]11-18-2024 10:43-0500Body avnpasxofov52.52 [degF]Roshan NILL [facility]11-18-2024 10:42-0500Blood Pressure LocationMichael NILL [facility]11-18-2024 10:42-0500 Diastolic blood aftqdiaa01 mm[Hg]Roshan VILLAGRANL [facility]11-18-2024 10:42-0500Mean blood orheapaa42 mm[Hg]Roshan VILLAGRANL [facility]11-18-2024 10:42-0500 Systolic blood zuvarscb222 mm[Hg]Roshan VILALGRANL [facility]11-18-2024 09:26-0500Heart rate70 /minMichael NILL [facility]11-18-2024 09:26-4006BsX4% (BldA) [Mass fraction]96 %Roshan VILLAGRANL [facility]11-18-2024 09:24-0500 Respiratory rate16 /minMichael NILL [facility]11-18-2024 09:24-0500Body .34 [degF]Roshan VILLAGRANL [facility]11-18-2024 09:24-0500Blood Pressure LocationMichael NILL [facility]11-18-2024 09:24-0500 Diastolic blood mm[Hg]Roshan NILL [facility]11-18-2024 09:24-0500Mean blood xpvxykiv184 mm[Hg]Roshan NILL [facility]11-18-2024 09:24-0500 Systolic blood cjeysscj585 mm[Hg]Roshan NILL [facility]11-18-2024 09:20-0500Blood Pressure LocationMichael NILL [facility]11-18-2024 09:20-0500Body ssffsjliala20.34 [degF]Roshan NILL [facility]11-18-2024 09:20-0500 Diastolic blood ijtpbnjt94 mm[Hg]Roshan NILL [facility]11-18-2024 09:20-0500Heart rate66 /minMichael NILL [facility]11-18-2024 09:20-0500Mean blood aihwvfzt427 mm[Hg]Roshan NILL [facility]11-18-2024 09:20-0500 Respiratory rate11 /minMichael NILL [facility]11-18-2024 09:20-6597FoD5% (BldA) [Mass fraction]93 %Roshan NILL [facility]11-18-2024 09:20-0500 Systolic blood xucehmyg722 mm[Hg]Roshan NILL [facility]11-18-2024 09:10-0500Mean blood pgaqmklc21 mm[Hg]Roshan NILL [facility]11-18-2024 09:10-0500 Respiratory rate21 /minMichael NILL [facility]11-18-2024 09:05-0500Mean blood eljvxvbv53 mm[Hg]Roshan NILL [facility]11-18-2024 09:05-0500 Respiratory rate14 /minMichael NILL [facility]11-18-2024 08:54-0500Body zpmzostgomw50.98 [degF]Roshan NILL [facility]11-18-2024 08:45-0500 Respiratory rate14 /minMichael NILL [facility]11-18-2024 06:11-0500Heart rate70 /minMichael NILL [facility]11-18-2024 06:10-0500Body aqvozpfmxir27.06 [degF]Roshan NILL [facility]11-18-2024 06:10-0500Mean blood rionwzdl40 mm[Hg]Roshan NILL [facility]11-05-2024 13:49-0500 Diastolic blood knooypch79 mm[Hg]Roshan NILL [facility]11-05-2024 13:49-0500Heart rate64 /minMichael NILL [facility]11-05-2024 13:49-0500Mean blood civrnahp362 mm[Hg]Roshan NILL [facility]11-05-2024 13:49-0500 Systolic blood dvlyfuoe491 mm[Hg]Roshan NILL [facility]10-29-2024 13:00-0400Blood Pressure LocationMichael NILL [phone]-[facility]xfProm[facility]10-29-2024 13:00-0400Diastolic blood auaxnzuw70 mm[Hg]Roshan VILLAGRANL [phone]-TvwhpProm[facility]10-29-2024 13:00-0400Heart rate72 /minMichael NILL [phone]-GlanxPromedica [facility]10-29-2024 13:00-0400Respiratory rate16 /minMichael NILL [phone]-WbwwbPromedica Fost[facility]10-29-2024 13:00-0400Systolic blood kwnoepnm617 mm[Hg]Roshan NILL [phone]-ZamxbPromedica Fostoria [facility] Hospital10-02-2024 22:25-0400Body vyuioauwcyl66.3 [degF]MD Michael Holley Work Phone: 1(390)138-99[facility] [place]10-02-2024 22:25-0400 Diastolic blood retdeyeb66 mm[Hg]MD Michael Holley Work Phone: 1(321)753-[address] [place], [place] 3885610-02-2024 22:25-0400 Heart rate74 /minMD Michael Holley Work Phone: 1(239)881-17[facility] [place]10-02-2024 22:25-0400 Respiratory rate18 /minMD Michael Holley Work Phone: 1(286)598-[address] [place], [place] 3885610-02-2024 22:25-0400 SaO2% (BldA) [Mass fraction]94 %MD Michael Holley Work Phone: 1(880)963-33[facility] [place]10-02-2024 22:25-0400 Systolic blood mm[Hg]MD Michael Holley Work Phone: 1(791)671-79[facility] [place]10-02-2024 18:10-0400 Body .18 cmMD Michael Holley Work Phone: 1(698)004-41[facility] [place]10-02-2024 18:10-0400 Body detgwt48.58 kgMD Aburtouel Kishan Work Phone: 1(658)228-[address] [place], [place] 3885609-26-2024 14:00-0400 Body .18 cmMD Michael Holley Work Phone: 1(683)[address]09-26-2024 14:00-0400 Body mass index (BMI) [Ratio]23.9 kg/m2MD Michael Holley Work Phone: 1([phone] [place], [place] [id number] 14:00-0400 Body znonju47.39 kgMD Michael Holley Work Phone: [phone]09-26-2024 14:00-0400 Diastolic blood paztwctc94 mm[Hg]MD Michael Holley Work Phone: [phone]09-26-2024 14:00-0400 Heart rate75 /min Michaeljose Holley Work Phone: [phone]09-26-2024 14:00-0400 Respiratory rate20 /minMD Michael Holley Work Phone: [phone]09-26-2024 14:00-0400 SaO2% (BldA) [Mass fraction]99 %MD Michael Holley Work Phone: [phone] [place], [place] [id number] 14:00-0400 Systolic blood zyiuhlnt420 mm[Hg]MD Michael Holley Work Phone: [phone] [place], [place] [id number] 14:49-0400 Heart rate87 /minMichael NILL [facility]09-12-2024 14:49-9618GwI3% (BldA) [Mass fraction]96 %Roshan NILTobi [facility]09-12-2024 14:49-0400 Respiratory rate18 /minMichael NILL [facility]09-12-2024 14:48-0400 Diastolic blood ceujebaq95 mm[Hg]Roshan NILL [facility]09-12-2024 14:48-0400Mean blood dxycywfc681 mm[Hg]Roshan NILL [facility]09-12-2024 14:48-0400 Systolic blood mm[Hg]Roshan NILL [facility]09-12-2024 14:04-0400Heart wkpt746 /minMichael NILL [facility]09-12-2024 14:04-0400 Respiratory rate18 /minMichael NILL [facility]09-12-2024 14:04-8593ShD1% (BldA) [Mass fraction]95 %Roshan NILL [facility]09-12-2024 14:03-0400 Diastolic blood bopvnwwv06 mm[Hg]Roshan NILL [facility]09-12-2024 14:03-0400Mean blood ngkyevul78 mm[Hg]Roshan NILL [facility]09-12-2024 14:03-0400 Systolic blood ubfqypha022 mm[Hg]Roshan NILL [facility]09-12-2024 13:54-0400Body xhukltxjgyb44.16 [degF]Roshan NILL [place] [facility] 13:54-0400 Diastolic blood wmdollzi45 mm[Hg]Roshan NILL [facility]09-12-2024 13:54-0400Heart pdil093 /minMichael NILL [facility]09-12-2024 13:54-0400Mean blood yeucmztu64 mm[Hg]Roshan NILL [facility]09-12-2024 13:54-0400 Respiratory rate11 /minMichael NILL [facility]09-12-2024 13:54-5780RnG7% (BldA) [Mass fraction]95 %Roshan NILL [facility]09-12-2024 13:54-0400 Systolic blood mm[Hg]Roshan NILL [facility]09-12-2024 13:45-0400Mean blood refaitws60 mm[Hg]Roshan NILL [facility]09-12-2024 13:45-0400 Respiratory rate15 /minMichael NILL [facility]09-12-2024 13:40-0400Mean blood mm[Hg]Roshan NILL [facility]09-12-2024 13:40-0400 Respiratory rate11 /minMichael NILL [facility]09-12-2024 13:29-0400Blood Pressure LocationMichael NILL [facility]09-12-2024 13:29-0400Body izdfmynnydx80.34 [degF]Roshan NILL [facility]09-12-2024 08:21-0400Mean blood lreerusx604 mm[Hg]Roshan NILL [facility]09-12-2024 08:19-0400Blood Pressure LocationMichael NILL [facility]09-12-2024 08:19-0400 Respiratory rate18 /minMichael NILL [facility]08-26-2024 13:51-0400Heart rate80 /minMichael NILL [facility]08-26-2024 13:51-7583TsI8% (BldA) [Mass fraction]96 %Roshan NILL [facility]08-26-2024 13:51-0400 Diastolic blood wybjsehf06 mm[Hg]Roshan NILL [facility]08-26-2024 13:51-0400 Systolic blood lhummkqa644 mm[Hg]Roshan NILL [facility]08-26-2024 13:50-0400 Diastolic blood jjegxszg87 mm[Hg]Roshan NILL [facility]08-26-2024 13:50-0400Mean blood stlxhyjq14 mm[Hg]Roshan NILL [facility]08-26-2024 13:50-0400 Systolic blood gzuzzomf861 mm[Hg]Roshan NILL [facility]08-06-2024 15:48-0400Blood Pressure LocationMichael NILL [phone]-GlijmPromedica Fostoria [facility]08-06-2024 15:48-0400Diastolic blood mm[Hg]Roshan NILL [phone]-WlextPromedica Fostoria [facility]08-06-2024 15:48-0400Heart rate76 /minMichael NILL [phone]-ZquryPromedica Fostoria [facility] Hospital08-06-2024 15:48-0400Respiratory rate16 /minMichael NILL [phone]-XqkpoPromedica Fostoria Community Hospital08-06-2024 15:48-0400Systolic blood dswahpii220 mm[Hg]Roshan BRAUN [phone]-CufusPromedica Fostoria Community Hospital06-06-2024 15:18-0400Body .18 cmMD Estela Krishnan Work Phone: [phone] [place], [place] 3885606-06-2024 15:18-0400 Body mass index (BMI) [Ratio]24.3 kg/m2MD Estela Krishnan Work Phone: [phone]06-06-2024 15:18-0400 Body bgwywufytxd72.8 [degF]MD Estela Krishnan Work Phone: [phone]06-06-2024 15:18-0400 Body vikqax84.3 kgMD Estela Krishnan Work Phone: [phone] [address]06-06-2024 15:18-0400 Diastolic blood nuypecev50 mm[Hg]MD Estela Krishnan Work Phone: [phone]06-06-2024 15:18-0400 Heart rate81 /minMD Estela Krishnan Work Phone: [phone] [place], [place] 3885606-06-2024 15:18-0400 Respiratory rate20 /minMD Estela Krishnan Work Phone: [phone]06-06-2024 15:18-0400 SaO2% (BldA) [Mass fraction]95 %MD Estela Krishnan Work Phone: 1([phone])287-[address] [place], [place] 3885606-06-2024 15:18-0400 Systolic blood wsfzirga948 mm[Hg]MD Estela Krishnan Work Phone: [phone])[address]04-30-2024 15:41-0400 Blood Pressure LocationMichael NILL [phone]-RnmcnPromedica Fostoria [facility] Hospital04-30-2024 15:41-0400Diastolic blood eazjwenv02 mm[Hg]Roshan NILL [phone]-EqhwrPromedica Fostoria Community Hospital04-30-2024 15:41-0400Heart rate72 /minMichael NILL [phone]-PxnzwPromedica Fostoria Community Hospital04-30-2024 15:41-0400Respiratory rate16 /minMichael NILL [phone]-JpzrkPromedica Fostoria Community Hospital04-30-2024 15:41-0400Systolic blood icemazbo732 mm[Hg]Roshan NILL [phone]-KzfvmPromedica Fostoria Community Hospital02-27-2024 14:32-0500Diastolic blood mm[Hg]Osmin PAUL [facility]02-27-2024 14:32-0500Heart rate90 /minDeddi PAUL [facility]02-27-2024 14:32-1140UmM6% (BldA) [Mass fraction]98 %Osmin PAUL [facility]02-27-2024 14:32-0500 Systolic blood uwxymqcb192 mm[Hg]Osmin PAUL [facility]12-06-2023 13:19-0500Blood Pressure LocationMichael NILL [facility]12-06-2023 13:19-0500Diastolic blood mm[Hg]Roshan NILL [facility] Udihfwrl87-44-3049 13:19-0500Heart rate 72 /minMichael NILL [facility]12-06-2023 13:19-0500 Respiratory rate16 /minMichael NILL [facility]12-06-2023 13:19-0500Systolic blood qucgzqgr825 mm[Hg]Roshan NILL [facility] Encounters Encounter DateEncounter TypeCare ProviderFacilityStart: 36-42-7210bfdrvkbjpr MICHAEL A RADHAANNFacility:FT FM BellevueStart: 06-30-2025 End: 47-15-1761giqxnmgysvZewwyc L. BobbsFacility:FTMCStart: 06-24-2025 End: 97-98-1570axyiugoyrcHtgbvpb R NILLFacility:GS BellevueStart: 06-24-2025 End: 82-11-6553Wsxvjik encounter procedureMichael R NILL [phone]-[facility]lyMer[facility] [place] Start: 06-16-2025 End: 58-92-2103jdhhmblwfkJpuukm E. RossFacility:FT FM BellevueStart: 04-23-2025 Registered Alana Glez [facility] Work Phone: Start: 04-23-2025 End: 36-03-2589nyeigxvmhyXlvuqk E Ross MD Work Phone: [facility] Work Phone: Start: 04-23-2025 End: 12-17-3394Jvzehvq encounter Kymberly Glez [facility] Work Phone: Start: 04-23-2025 End: 84-14-3512Xjiknkc encounter procedureElda Robles [facility] Palliat CareStart: 04-23-2025 End: 43-64-8659ofebhrvjzrQmftrm E Ross MD Work Phone: [facility] Work Phone: Start: 93-74-0042mzfbfsfjgvMuznwb E. RossFacility:FT FM BellevueStart: 56-19-4883Vkgiaednhy RecurringKush Glez [facility] Work Phone: Start: 04-10-2025 End: 00-02-4788czfcjzckpzXljyns E Ross MD Work Phone: [facility] Work Phone: Start: 04-10-2025 End: 77-04-0870Htdltme encounter procedureCynthia Clayton [facility] Ambulatory Work Phone: Start: 03-25-2025 End: 29-78-7872hjqkwlklngYBHSCX A PINADAPHNIEFacility:FT FM BellevueStart: 03-25-2025 End: 15-16-3407cqdwkepmliGzsfzq E Ross MD Work Phone: [facility] Work Phone: Start: 03-25-2025 End: 21-85-3132Iiqdmpk encounter procedureCynthia Clayton [facility] Ambulatory Work Phone: Start: 33-80-9877Jpl-patient / Non-visitNoveronica Elizabeth [facility] Work Phone: Start: 48-05-3266Qcp-patient / Non-visitNoveronica [facility] Work Phone: Start: 03-03-2025 End: 62-55-5170Utjzynz encounter procedureElda Robles [facility] Palliat CareStart: 03-03-2025 End: 13-76-3898fwzyqhnmjcOgfrpk E Ross MD Work Phone: [facility] Work Phone: Start: 79-28-8694Ipf-patient / Non-visitKatximena Robles [facility] Palliative Work Phone: Start: 89-23-5822Gzs-patient / Non-visitLinnette Elizabeth MDCan[facility] Ambulatory Work Phone: Start: 88-76-1169Ror-patient / Non-visitLinnette Elizabeth MDCan[facility] Center Ambulatory Work Phone: Start: 84-60-7226Bwq-patient / Non-visitNoveronica Elizabeth MD-[facility] Work Phone: Start: 02-04-2025 End: 01-52-4691sjjynwvdkfUtdzff E Ross MD Work Phone: [facility] Work Phone: Start: 02-04-2025 End: 95-14-8636Xzzemly encounter procedureSquinten Holley MD Work Phone: [facility] Work Phone: Start: 83-39-7143Kxpmwgnnub Jaret Holley MD Work Phone: [facility] Work Phone: Start: 01-21-2025 End: 35-81-4041vjhkpqmmmfJqwpho E. RossFacility:FT FM BellevueStart: 01-01-2025 Non-patient / Non-visitSquinten Holley MD Work Phone: [facility] Work Phone: Start: 31-98-1833Pugvnjohaq Jaret Holley MD Work Phone: [facility] Work Phone: Start: 01-01-2025 End: 19-42-1863yoqizeuoexFzxutv E Ross MD Work Phone: [facility] Work Phone: Start: 01-01-2025 End: 49-11-0850Beaajav encounter procedureSquinten Holley MD Work Phone: [facility] Work Phone: Start: 01-01-2025 End: 59-72-8668Juvfydl encounter procedureSquinten Holley MD Work Phone: [facility] Palliat CareStart: 01-01-2025 End: 11-75-4730hqccxxspkxOjafcn E Ross MD Work Phone: [facility] Work Phone: Start: 12-31-2024 End: 43-24-4977Gblusaaa Result EncounterJossleine Simpson MD Work Phone: noms External Department UnsolicitedStart: 12-31-2024 End: 85-04-1016Zcqzlvyx Result EncounterJosseline Simpson MD Work Phone: noms External Department UnsolicitedStart: 12-25-2024 Registered Jaret Holley MD Work Phone: [facility] [place] [facility] Work Phone: Start: 12-25-2024 End: 96-11-3520Qvkavta encounter procedureSquinten Holley MD Work Phone: [facility] CareStart: 12-25-2024 End: 05-15-8644hgbpaxytdnJbjife E Ross MD Work Phone: [facility] Work Phone: Start: 02-76-6702Xyk-patient / Non-visitSquinten Holley MD Work Phone: [phone] Work Phone: Start: 36-91-0205Jgrosibynm Jaret Holley MD Work Phone: [facility] Work Phone: Start: 12-19-2024 End: 71-97-2915Ljdpzxr encounter procedureSquinten Holley MD Work Phone: [facility] CareStart: 12-19-2024 End: 87-66-6077enmentetsqAwcisi E Ross MD Work Phone: [facility] Work Phone: Start: 12-12-2024 End: 84-33-2938fgedmvppceQjctgx E. RossFacility:FT FM BellevueStart: 12-11-2024 Registered Jaret Holley MD Work Phone: [facility] [place] [facility] Work Phone: Start: 12-11-2024 End: 50-62-4046btdyncnqtzBaphyw E Ross MD Work Phone: [facility] Work Phone: Start: 12-11-2024 End: 69-39-7426Askzten encounter procedureSquinten Holley MD Work Phone: [phone] Work Phone: Start: 23-00-6185Adi-patient / Non-visitSquinten Holley MD Work Phone: [phone] Work Phone: Start: 19-33-7611Cypvtqhlre Jaret Holley MD Work Phone: [facility] [place] [facility] Work Phone: Start: 11-27-2024 End: 53-39-5758Dwtybrp encounter procedureSquinten Holley MD Work Phone: [facility] Palliat CareStart: 11-27-2024 End: 44-78-4944popqqepfpmOlfvta E Ross MD Work Phone: [facility] Work Phone: Start: 11-05-2024 End: 44-25-4786hbzkpzbwfdJnaber E. RossFacility:FT BellevueStart: 11-04-2024 Registered Jaret Holley MD Work Phone: [facility] Work Phone: Start: 11-04-2024 End: 96-34-4434Vsbsxys encounter procedureSquinten Holley MD Work Phone: [facility]-CT Scan Main [place] Work Phone: Start: 11-04-2024 End: 02-31-5658jrjgbfcslsJechst E Ross MD Work Phone: [facility] Work Phone: Start: 36-63-3273Yto-patient / Non-visitSquinten Holley MD Work Phone: [facility] Work Phone: Start: 50-44-2071Lwfjcboons RecurringMichael Holley MD Work Phone: [facility] Work Phone: Start: 10-30-2024 End: 30-12-1154jtkjnpfifmUyqkai E Ross MD Work Phone: [facility] Work Phone: Start: 10-30-2024 End: 46-79-1718Soyiwcp encounter procedureSquinten Holley MD Work Phone: [facility] Work Phone: Start: 10-30-2024 End: 72-63-3270Ktsozyid ReferredMichael Holley MD Work Phone: [facility] Palliat CareStart: 10-30-2024 End: 64-18-0745Ovjyaub encounter procedureSquinten Holley MD Work Phone: [facility] PalliativeStart: 10-30-2024 End: 15-44-4070eqlpkthbwaYyzftg E Ross MD Work Phone: [facility] Work Phone: Start: 10-22-2024 End: 68-35-9018tqrhelinxyZpvdso E. RossFacility:[facility] BellevueStart: 10-22-2024 End: 42-80-9304yucoqwlnqeYjdfxq E. RossFacility:FT FM BellevueStart: 10-17-2024 End: 25-61-1544yniwmmkjebJxhnks E Ross MD Work Phone: [facility] Work Phone: Start: 10-17-2024 End: 68-57-1813Kpukqjn encounter procedureSquinten Holley MD Work Phone: [facility] Phys[facility] Infect Dis Work Phone: Start: 62-21-7386Npmpxbbzdg RecurringMichael Holley MD Work Phone: [facility]-Can[facility] Acute Work Phone: Start: 10-16-2024 End: 45-18-0661tpvuuncoqwEkbtof E Ross MD Work Phone: [facility] Work Phone: Start: 10-16-2024 End: 62-55-5765Snkyuzd encounter procedureSquinten Holley MD Work Phone: [facility] Work Phone: Start: 10-08-2024 End: 89-43-6764hpevciyvfyBjrslk E. RossFacility:FT FM BellevueStart: 10-07-2024 End: 59-82-6290Zylqrue encounter procedureSquinten Holley MD Work Phone: [facility]-CT Scan Main [place] Work Phone: Start: 10-07-2024 End: 82-72-9110jstqfziyedSpemfb E Ross MD Work Phone: [facility] Work Phone: Start: 10-03-2024 End: 91-13-1563fqmfmlrycgFmfgme E Ross MD Work Phone: [facility] Work Phone: Start: 10-03-2024 End: 85-02-7529Mcveuxd encounter procedureSquinten Holley MD Work Phone: [facility] Work Phone: Start: 28-75-6619Jgdmkgauec RecurringMichael Holley MD Work Phone: [facility] Work Phone: Start: 09-26-2024 End: 48-67-1750ozcotabahnBulmrq E. RossFacility:CD:[id number]: 2024 Non-patient / Non-visitSquinten Holley MD Work Phone: [facility] Infect Dis Work Phone: Start: 09-24-2024 End: 71-84-6631Kqybyhyq Result EncounterTimdivya Paez DO Work Phone: noms External Department UnsolicitedStart: 09-24-2024 End: 41-03-9361Dubbnbyf Result EncounterTimdivya Paez DO Work Phone: noms External Department UnsolicitedStart: 09-18-2024 Non-patient / Non-visitSquinten Holley MD Work Phone: [facility] Infect Dis Work Phone: Start: 09-17-2024 End: 51-74-3209Ybvunlkrjo and management of inpatientSquinten Holley MD Work Phone: [facility] [employer] Work Phone: Start: 09-17-2024 End: 55-30-5334qtlcnecrloKgrher E Ross MD Work Phone: [facility] Work Phone: Start: 09-17-2024 End: 67-59-6252Cqewuye encounter procedureSquinten Holley MD Work Phone: [facility] Work Phone: Start: 23-80-0076Vuklflgshe Jaret Holley MD Work Phone: [facility] Work Phone: Start: 09-05-2024 End: 61-01-6600Vvoaryc encounter procedureSquinten Holley MD Work Phone: [facility] PalliativeStart: 09-05-2024 End: 62-60-5992cmzeqbdwwlRwqfzs E Ross MD Work Phone: [facility] Work Phone: Start: 88-51-3097Gdb-patient / Non-visitSquinten Holley MD Work Phone: [facility] Palliative Work Phone: Start: 09-03-2024 End: 28-57-6559Djybszd encounter procedureSquinten Holley MD Work Phone: [facility] Work Phone: Start: 08-22-2024 End: 03-58-7724Jbxkoev encounter procedureSquinten Holley MD Work Phone: [facility] PalliativeStart: 08-22-2024 End: 16-48-2298fnuvluysxxXiecve E RossFacility:[facility] Start: 04-01-4803Nqu-patient / Non-visitSquinten Holley MD Work Phone: [facility] Palliative Work Phone: Start: 08-21-2024 End: 71-68-3195Jnhevzr encounter procedureSquitnen Holley MD Work Phone: [facility] Work Phone: Start: 08-06-2024 End: 35-69-2030lqpdpnovvzKnnypju R NILLFacility: BellevueStart: 08-06-2024 End: 63-37-2570Dddkepf encounter procedureMichael R NILL [phone]-DwngpMer[facility] [place] Start: 08-06-2024 End: 03-17-0183opelwzpnpfKxujzg E. RossFacility:FT BellevueStart: 07-31-2024 End: 67-11-2714Xklxqgf encounter procedureSquinten Holley MD Work Phone: [facility] GroupM[facility] Work Phone: Start: 07-22-2024 End: 39-53-7594Yjukebkaw to same day surgery centerMichael R NILL [facility] Start: 07-22-2024 End: 06-58-7880ufrkzesvirSletedd R NILLFacility:FTMCStart: 07-19-2024 End: 12-59-7701Tdp-admission assessmentSquinten Holley [facility] Start: 12-14-2629gsqjpymgmzIkhalud R NILLFacility: BellevueStart: 07-09-2024 End: 36-22-7854ndkfduvrpxYjgzzps R NILLFacility:FTMCStart: 07-09-2024 End: 81-77-2957Uvlngcm encounter procedureMichael R NILL [facility] Start: 07-02-2024 End: 35-76-9756bcixwhlsbwKswahv E. RossFacility:FTMCStart: 07-02-2024 End: 46-10-8317Vzq Drop Keshia Holley [facility] Start: 07-02-2024 End: 43-76-5744abrfoderozYkbvccc R NILLFacility: BellevueStart: 07-02-2024 End: 34-26-7429Caiopxo encounter procedureMichael R NILL [phone]-SmhahUniversity Hospitals Geneva [facility] Start: 06-11-2024 End: 77-55-4438syvhddbftjVyaejt E. RossFacility:[facility] tart: 06-05-2024 End: 31-41-8920Novkjhcew to same day surgery centerMD Michael Holley Work Phone: [facility]Start: 06-05-2024 End: 14-86-4720ixmgjsnddgMB Michael Holley Work Phone: [facility] Work Phone: Start: 02-85-0423Bcpjynnqbd RecurringMD Michael Holley Work Phone: [facility] Work Phone: Start: 05-30-2024 End: 87-41-1648bnddjbigouKI Michael Holley Work Phone: [facility] Work Phone: Start: 05-30-2024 End: 20-69-5525Ujgiebj encounter procedureMD Michael Holley Work Phone: [facility] Ambulatory Work Phone: Start: 05-21-2024 End: 71-00-0938jzkfxktnoiQhjuakp R NILLFacility: ueStart: 05-21-2024 End: 16-45-7675Zjjwamj encounter procedureMichael R NILL [phone]-Gijjo General Surgery [place] Start: 05-16-2024 End: 78-43-5359Sgjdiagkq to same day surgery centerMichael R NILL [facility] Start: 05-16-2024 End: 87-26-2924bgtdoascsqVpkzhuc R NILLFacility:FTMCStart: 05-14-2024 End: 46-94-8603bzewwnokjpUwpzxf Mj RossFacility:FT FM BellevueStart: 04-29-2024 End: 72-95-3566yyufzqhcwoEtygqld R NILLFacility:FTMCStart: 04-29-2024 End: 43-89-1308Bqbpblf encounter procedureMichael R NILL [facility] Start: 04-09-2024 End: 07-70-6961rbhmaodfavKjharei R NILLFacility: BellevueStart: 04-09-2024 End: 36-65-5402Ndiwddx encounter procedureMichael R NILL [phone]-ZkinnUniversity Hospitals [facility] [place] Start: 02-27-2024 End: 90-12-5200ypddkeaqxrVropqqg R NILLFacility: BellevueStart: 02-27-2024 End: 53-11-7264Wffeexc encounter procedureMichael R NILL [phone]-SgpgrUniversity Hospitals Geneva [facility] Center [facility] Start: 02-27-2024 End: 91-01-6953kdharwvslwEakvse E. RossFacility:FT BellevueStart: 02-20-2024 End: 07-45-4060Nvosakfa ReferredMD Estela Krishnan Work Phone: [facility]-LAB Path Spec [facility] HospStart: 02-20-2024 End: 83-45-9969lngeqihomvYC Kim E Knight Work Phone: [facility] Work Phone: Start: 02-20-2024 End: 10-27-1736Ttudhuc encounter procedureMichael R NILL [phone]-Csykh General Surgery [place] Start: 99-00-9721Mtyocbcluw Recurring Estela Krishnan Work Phone: [facility]-Cancer Center Acute Work Phone: Start: 02-08-2024 End: 23-07-2928xdbjyihxwpCH Estela Krishnan Work Phone: [facility] Work Phone: Start: 02-08-2024 End: 04-76-8993Mvdvkhu encounter procedure Estela Krishnan Work Phone: [facility] Work Phone: Start: 27-17-3841dvfcodmgibHnqwfns R NILLFacility: BellevueStart: 01-23-2024 End: 58-23-1774mxajxcjaiqPyjxisb R NILLFacility: BellevueStart: 01-23-2024 End: 36-89-4561Dngzjip encounter procedureMichael R NILL [phone]-Puemk General Surgery [place] Start: 01-16-2024 End: 38-25-1270njwbwfsfuyAugoodg R NILLFacility: BellevueStart: 01-16-2024 End: 77-08-8689Jkhpmhv encounter procedureMichael R NILL [phone]-Tduzk General Surgery [place] Start: 01-10-2024 End: 32-69-7231daardsxaokSA Estela Krishnan Work Phone: [facility] Work Phone: Start: 01-10-2024 End: 75-45-8293Udoavxwq Referred Estela Krishnan Work Phone: [facility]-LAB Path Spec [place] HospStart: 01-10-2024 End: 97-11-9992knesminkxgZaqcfbn R NILLFacility:CD:[id number]: 01-02-2024 End: 64-49-2403umprrbtfzeKwzqdzx R NILLFacility: BellevueStart: 01-02-2024 End: 06-52-1367Fexuckr encounter procedureMichael R NILL [phone]-GhyxtMercy Health Clermont Hospitalue Start: 11-27-2023 End: 25-33-5867kscrlametgEszcuj E. RossFacility:FT FM BellevueStart: 10-31-2023 End: 99-93-8417avvqypexpnYtsloa J NEWTONFacility:FTMCStart: 10-31-2023 End: 50-30-0256Icfgase encounter procedureOsmin PAUL [facility] Start: 10-24-2023 End: 69-41-7707zvrlycpclwNewepx J NEWTONFacility:FTMCStart: 10-24-2023 End: 87-11-3006Lnqfzso encounter Jin PAUL [facility] Start: 10-02-2023 End: 80-18-3236hdbsinmfzmPprcyi E. RossFacility:FT FM BellevueStart: 09-07-2023 End: 85-50-4096yjjfcjfacfPogngg E. RossFacility:FT FM BellevueStart: 09-07-2023 End: 46-91-6662utpuogtujiZbkadb J NEWTONFacility:FTMCStart: 08-09-2023 End: 50-90-6932fflfnkrqezGlpsaz E. RossFacility:FTMCStart: 08-09-2023 End: 09-06-5323ovtakvtwhaNolngci R NILLFacility: BellevueStart: 08-09-2023 End: 57-40-7182Jrpwwlx encounter procedureMichael R NILL General Surgery Nill/Said [place] Start: 08-07-2023 End: 52-48-8352shyvwxxduhKhjuxk Mj RossFacility:FT BellevueStart: 07-24-2023 End: 72-74-2827anftzyeilcIaovtj E. RossFacility:[facility] BellevueStart: 07-12-2023 End: 93-77-7284xaubixrsldXhecsbb R NILLFacility: BellevueStart: 07-12-2023 End: 25-37-3026Xqwwbqq encounter procedureMichael R NILL General Surgery Nill/Said [place] Start: 06-20-2023 End: 80-75-9701hudzmowivkNtiyrgc R NILLFacility: evueStart: 06-02-2023 ambulatoryMichael NILLFacility: BellevueStart: 04-04-2023 End: 05-10-6829Apgxioz encounter Walter Holley [facility] Start: 08-31-2021 End: 59-75-1709lihptraclbDU ESTELA KRISHNANFacility:H1 Procedures DateProcedureProcedure DetailPerforming ClinicianStart: 44-57-2759Oudacuqcoiugh metabolic panelJosseline Simpson MD Work Phone: Start: 24-73-2546RB of thorax with Cami Holley MD Work Phone: Start: 83-58-0510WE of thorax with Cami Holley MD Work Phone: Start: 11-38-3425KWKSGHCVMLZLV (EPO), SERUMMarcoothy J Adamowicz DO Work Phone: Start: 11-20-3246RO of chestMichael Holley MD Work Phone: Start: 98-95-7742Jjlmr cultureSquinten Holley MD Work Phone: Start: 71-38-6205Yommv chest X-raySquinten Holley MD Work Phone: Start: 98-36-3966Vomugacd identified in Blood by CultureSquinten Holley MD Work Phone: Start: 51-54-2555Ofwrprym identified in Blood by CultureSquinten Holley MD Work Phone: Start: 46-80-2591Mpnocxqc screenSquinten Cruzment on above:Order Comment: Transfuse now? Y Number of units to transfuse now? 2Result Comment: PERFORMED BY:[address] [place], [place] [id number] MEDICAL DIRECTORALTHEA MEADOWS M.D. Start: 64-31-1609Ixhzcsvf identified in Blood by Hortencia Holley MD Work Phone: Start: 38-90-4497Obitivasy ID (NA Multiplex Assay) Michael Holley MD Work Phone: Start: 64-16-9175Lvyehnsjpkt Panel (PCR)Michael Holley MD Work Phone: Start: 22-06-6915Blnnq cultureSquinten Holley MD Work Phone: Start: 75-80-9962IN angiography of thoraxMichael Holley MD Work Phone: Start: 15-89-1670Tniiavqdf of implantable venous access portMichael NILL Start: 55-15-7115GO of thorax with contrastSquinten Holley MD Work Phone: Start: 70-19-3552Fnbjxnv of breast implantMD Michael Holley Work Phone: Start: 86-17-3345Jhlbplvz of breastMichael NILL Comment on above:Placement of tissue litharge supervisor and acellular dermis, and [place] node biopsy Dr Braun and Dr BustamanteStart: 74-48-2520Uoedlyhl of intradermal nevusMichael NILL Comment on above:faceStart: 40-42-6851Exkl energy X-ray absorptiometryMD Estela Krishnan Work Phone: Start: 17-23-9258Qtspwnss of mass of breastMichael NILL Start: 56-93-9278Reczce of breastMichael NILL Start: 89-67-7857Savjfjyopke of kneeSquinten Holley AppendectomyMichael NILL ArthroscopySagreg Holley CholecystectomyMichael NILL Extraction of wisdom toothMichael NILL ft (qualifier value)Michael Holley Comment on above:15 Foot surgeries total per patient no further detailsMammoplastyMichael NILL Removal of breast implantMichael NILL Simple extraction of toothMichael NILL Tonsillectomy and adenoidectomyMichael NILL Total abdominal hysterectomy with bilateral salpingo-oophorectomyMichael Holley Plan of Treatment DateCare ActivityDetailAuthorStart: 59-23-2124Qizqrrl referralPaulding County Hospital Work Phone: Start: 84-88-5781JlxntgmjcSelect [facility] [place] Start: 34-97-9985XtsmxyheuSelect Medical Specialty Hospital - Cincinnatitart: 12-18-2024 End: 56-37-5902BxnhznyqfBrecksville Va / Crille Hospital CenterStart: 53-46-1055Qluktnf referralBrecksville Va / [facility]tr Work Phone: Start: 12-10-2024 End: 08-05-9208QatuvcmtyBrecksville Va / Crille Hospital CenterStart: 40-82-3464KylvhtlyvBrecksville Va / Crille Hospital CenterStart: 67-38-8282DdctszvkdBrecksville Va / Crille Hospital CenterStart: 16-16-6463WdhmpwrmpBrecksville Va / Crille Hospital CenterStart: 49-79-9647OxbohhjybBrecksville Va / Crille Hospital CenterStart: 43-90-0714NlcdfxtcmBrecksville Va / Crille Hospital CenterStart: 78-61-1072MzitiqzptBrecksville Va / [facility]ille Hospital CenterStart: 54-33-0495JlqeoqlsuBrecksville Va / Crille Hospital CenterStart: 35-79-1844CscylllauBrecksville Va / Crille Hospital CenterStart: 76-74-6606Iyocujr referral to dietitianBrecksville Va / Crille Hospital CenterStart: 62-28-2523JgomwjcynBrecksville Va / Crille Hospital CenterStart: 58-96-4416AghbjiltvBrecksville Va / Crille Hospital CenterStart: 83-21-9582SofxxawgbBrecksville Va / Crille Hospital CenterStart: 83-42-9775WdbrgnrslBrecksville Va / [facility]ille Hospital CenterStart: 49-81-0129DhfycqexgBrecksville Va / [facility]ille Hospital CenterStart: 19-47-9521RdcgsjzleBrecksville Va / Crille Hospital CenterStart: 09-23-2024 End: 72-00-6179BtgujqkaoBrecksville Va / Crille Hospital CenterStart: 44-49-3722Echojujq to cardiothoracic surgeonBrecksville Va / Crille Hospital CenterStart: 09-21-2024 [facility] CenterStart: 64-68-5802Seuijovq identified in Blood by CultureBlood CultureBrecksville Va / Crille Hospital CenterStart: 09-20-2024 [facility] CenterStart: 83-68-1829Cqqmqeeh to oncologist [facility] CenterStart: 81-96-1091Svwsmygxdkermx of prophylactic treatmentBrecksville Va / Crille Hospital CenterStart: 23-12-2841Qqdvcxvy to infectious diseases physicianBrecksville Va / Crille Hospital CenterStart: 09-18-2024 Comprehensive metabolic 2000 panel - Serum or PlasmaSelect Medical Specialty Hospital - Cincinnatitart: 09-18-2024 End: 97-09-5794OdlipuhooSelect Medical Specialty Hospital - Cincinnatitart: 61-88-9525QrcavgzbySelect Medical Specialty Hospital - Cincinnatitart: 12-87-2674Fexkpumey culture of sputumSelect Medical Specialty Hospital - Cincinnatitart: 94-57-1165Acmbwhiu admissionSelect Medical Specialty Hospital - Cincinnatitart: 09-17-2024 End: 86-32-6046VizjwpnqbSelect Medical Specialty Hospital - Cincinnatitart: 98-75-5435Zyqvvfhq identified in Blood by CultureBlood CultureSelect Medical [facility] [place] Start: 23-66-7519Spitklrw identified in Urine by CultureUrine CultureSelect Medical Specialty Hospital - Cincinnatitart: 08-84-4607Uqqtw cultureSelect Medical Specialty Hospital - Cincinnatitart: 63-57-8677UhenwmyuoSelect Medical Specialty Hospital - Cincinnatitart: 22-47-6494Qlgevti referral to dietitianSelect Medical Specialty Hospital - Cincinnatitart: 09-05-2024 [facility]art: 04-90-2356GfbbsykpdSelect Medical Specialty Hospital - Cincinnatitart: 12-03-4413SlzlwqmhtSelect Medical Specialty Hospital - Cincinnatitart: 08-06-2024 [facility]art: 32-95-3701UjjkhahssSelect Medical Specialty Hospital - Cincinnatitart: 91-75-8929LodquesqiSelect Medical Specialty Hospital - Cincinnatitart: 06-05-2024 [facility]atitart: 67-18-4263Fpbmpnj referralPaulding County Hospital Work Phone: Start: 24-85-0745Spsgntv referralPaulding County Hospital Work Phone: Basophils [#/volume] in Blood by Automated count [facility], [place]onBasophils/100 leukocytes in Blood by Automated countSelect Medical Cleveland Clinic Rehabilitation Hospital, AvonCancer Ag 15-3 [Units/volume] in Serum or PlasmaSelect Medical [facility] Clinic [facility] Hospital, [place]onComprehensive metabolic 1999 panel - Serum or PlasmaSelect Medical [facility] Clinic [facility] Hospital, [place]onComprehensive metabolic 1999 panel - Serum or PlasmaSelect Medical [facility] Clinic [facility], [place]onComprehensive metabolic 1999 panel - Serum or [facility] HospitalComprehensive metabolic 1999 panel - Serum or [facility] Comprehensive metabolic 2000 panel - Serum or [facility] HospitalComprehensive metabolic 2000 panel - Serum or PlasmaSelect Medical [facility] Clinic Rehabilitation Hospital, [place]onComprehensive metabolic 1999 panel - Serum or [facility] HospitalCT Chest W contrast [facility]CT Chest W contrast [facility] HospitalCT Chest W contrast IV [facility] AvonCT with contrast for radiotherapy planning [facility], AvonDXA Skeletal system.axial Views for bone densitySelect Medical Cleveland Clinic Rehabilitation Hospital, AvonEosinophils/100 leukocytes in Blood by Automated countSelect Medical Cleveland Clinic Rehabilitation Hospital, AvonErythropoietin (EPO) [Units/volume] in Serum or PlasmaSelect Medical Cleveland Clinic Rehabilitation Hospital, AvonLymphocytes [#/volume] in Blood by Automated countSelect Medical [facility] [place] Lymphocytes/100 leukocytes in Blood by Automated [facility] CenterMeasurement of cancer antigen 27-29[facility], AvonMG Breast - right ScreeningSelect Medical [facility] Clinic Rehabilitation Hospital, AvonMonocytes [#/volume] in Blood by Automated Regional Medical CenterMonocytes/100 leukocytes in Blood by Automated countSelect Medical [facility] [place] Neutrophils [#/volume] in Blood by Automated countSelect Medical Cleveland Clinic [facility] Hospital, AvonNeutrophils/100 leukocytes in Blood by Automated countSelect Medical Cleveland Clinic Rehabilitation Hospital, AvonNucleated erythrocytes [Presence] in Blood by Automated count [facility]onPatient EducationPaulding County Hospital Work Phone: Patient referralPaulding County Hospital Work Phone: XR Foot - left GE 3 [facility] Immunizations Immunization DateImmunizationNotesCare ProviderFacilityNEGATED: Highlighted row has not occurred!43-91-6249iotqgeynp virus vaccine, unspecified formulation Roshan NILL [phone]-ElonuOur [facility] [place] NEGATED: Highlighted row has not occurred!12-91-9158gtsvoclcu virus vaccine, unspecified formulationMichael NILL [phone]-OltfgOur [facility] Of [facility] [place] NEGATED: Highlighted row has not occurred!59-83-5346rpgxojjpa virus vaccine, unspecified formulationMichael NILL General Surgery BellevueNEGATED: Highlighted row has not occurred!32-86-0625XNPR-CoV-2 mRNA (tozinameran 5y-11y) Stuartquinten Holley [phone]-DccuhTrinity Health System Hector Payers DatePayer CategoryPayerPolicy ID2025Medicare [id number] Health [id number] (Managed Care)[employer] MEDICARE ..[id number] 2..1.554527.3.57[id number] 2..1.155338.3.57[id number] 2..1.250537.3.579.2.15366-20-9196Cswdlij85890607 2..1.839573.3.579.[id number] 2.0.1.541662.3.579.[id number] 2..1.220795.3.579.2.05521-01-7411Jibqdcb46154518 2.16.840.1.855666.3.579.2.17515-33-1619Nzlkeus24034087 2.16.840.1.004316.3.579.2.31551-70-5155Xvfceys31188943 2.16.840.1.173807.3.579.2.31158-30-6759Anenrhw46113206 2.16840.1.659206.3.579.2.11907-46-0415Vsnwmog62247766 2.840.1.681500.3.579.2.22407-23-1311Mvrzfmy58318859 2.840.1.823667.3.579.2.58393-75-9935Ujajnzs47164706 2.840.1.141539.3.579.2.43728-36-9295Gkkyxcq83139796 2.16840.1.506929.3.579.2.61559-03-7572Mqwagbi78489107 2.16840.1.910735.3.579.2.55346-36-5491Sboqsfo06049811 2.840.1.020487.3.579.2.37435-39-7052Hlqlujd83896465 2.16840.1.542099.3.579.2.22857-90-7469Vkftqpd67383590 2.16840.1.192447.3.579.2.00718-71-9147Gxuvwcs35073537 2.16840.1.808886.3.579.2.05952-69-3097Izunaec41634217 2.16840.1.162911.3.579.2.93042-71-2786Mdugdib45886031 2.16.840.1.518527.3.579.2.51373-36-6620Fchoekj76088603 2.16.840.1.442561.3.579.2.46631-73-0372Kqkvmqp98153265 2.16.840.1.263520.3.579.2.14595-43-9554Dnxxvpw24312463 2.16.840.1.383227.3.579.2.80812-05-1161Lfmkric30628375 2.16.840.1.247273.3.579.2.88871-44-1734Bmdtdfc31607683 2.16.840.1.732569.3.579.2.72473-36-6148Lpgdvck39695739 2.16.840.1.384945.3.579.2.07615-21-3546Zaomujj20414152 2.16.840.1.927604.3.579.2.22640-16-8568Yarqxho68384670 2.16.840.1.929119.3.579.2.36867-58-2937Lkarwkw13730559 2.16.840.1.961364.3.579.2.64285-06-8784Xvawehl53833371 2.16.840.1.613625.3.579.2.18630-83-9665Tqhuubn14531966 2.16.840.1.052650.3.579.2.64145-82-8971Lbhpket31170829 2.16.840.1.757678.3.579.2.83185-31-0290Cklnshx99890884 2.16.840.1.312749.3.579.2.57195-49-2885Pgoucxs39953762 2.16.840.1.600960.3.579.2.05891-39-7042Qrpknsv13943596 2.16.840.1.295430.3.579.2.15429-87-9442Gdqhezm23922982 2.16.840.1.286629.3.579.2.49712-62-0589Hlrnssv02255000 2.16.840.1.981572.3.579.2.85351-64-3379Fqdziws28517110 2.16.840.1.528076.3.579.2.14341-49-0918Dydtlee99329207 2.16.840.1.040001.3.579.2.48093-33-9132Vekytyi79418807 2.16.840.1.820503.3.579.2.05658-11-5265Vqrudbq78777844 2.16.840.1.327245.3.579.2.66574-70-0255Vlctzyq15747151 2.16.840.1.965547.3.579.2.86770-03-0287Ithviwa95931906 2.16.840.1.909698.3.579.2.95217-67-1347Fdfehtk03362607 2.16.840.1.935030.3.579.2.70171-45-7455Ppajlwo79089793 2.16.840.1.818394.3.579.2.55409-84-7611Ivqnwvi80205150 2.16.840.1.677287.3.579.2.83174-47-2072Afpxfiz53900441 2.16.840.1.376512.3.579.2.81910-21-7094Twptwvi56445273 2.16.840.1.096415.3.579.2.84055-13-0617Rthsewi98009349 2.16.840.1.086838.3.579.2.69516-62-8663Iaerolp30537910 2.16.840.1.795650.3.579.2.20093-71-5095Rklutqq68920985 2.16.840.1.339983.3.579.2.40776-98-3143Ookgkyd65846676 2.16.840.1.147200.3.579.2.46165-59-6636Etexmxc54949294 2.16.840.1.409502.3.579.2.94052-25-2420Hsfaikg96388119 2..840.1.678234.3.579.2.66630-84-6471Bsthcmg70709164 2.16.840.1.365435.3.579.2.727 1960MedicareMEBR0JLPUnknownAnthem / [id number] Social History DateTypeDetailFacilityStart: 03-21-2023 End: 27-06-0871Iplehaj smoking statusEx-smoker (finding)[facility] CenterueComment on above:patient quit smoking in the 80's.former smoker.Tobacco smoking statusNeverTrinity Health System BellevueComment on above:patient quit smoking in the 80's.former smoker.Start: 27-51-1099Rai [facility] At [facility]tart: 73-16-7655Xfw Assigned At [facility] Hospitaltart: 09-06-2024 End: 99-08-0193HgkWcbpvy (finding)[facility]atitart: 04-11-6614Bxcaaqg smoking status NHISNever smoked tobaccoNORI HealthcareStart: 58-96-2091Honpsybux beverage intakeCurrent drinker of alcohol (finding)[facility] HealthcareStart: 37-23-5947Jepgjxs of Social functionNOMS HealthcareStart: 76-79-2064Gqmrzuh CommentAlcohol: 1 or 2 drinks on a typical day/monthly or less Caffeine: 1-2 cups/day soda/pop (pepsi), occasionally coffeeNOMS Healthcare Start: 80-39-3669Rpy assigned at birthNot on [facility] HealthcareSexual OrientationMercy Health Lorain Hospital General Surgery [place] [facility] Equipment Procedure CodeEquipment CodeEquipment Original TextEquipment IdentifierDates BREAST RECONSTRUCTION W/ PLACEMENT OF Miquel Guidry MD 05/16/24 Unknown Breast LFDAStart: 57-19-7312BMOTDK RECONSTRUCTION W/ PLACEMENT OF Miquel Guidry MD 05/16/24 Unknown Breast LFDAStart: 53-09-5336FBRNTV RECONSTRUCTION W/ PLACEMENT OF Miquel Guidry MD 05/16/24 Unknown Breast LFDAStart: 88-51-2691DWULJK RECONSTRUCTION W/ PLACEMENT OF Miquel Guidry MD 05/16/24 Unknown Breast LFDAStart: 39-51-8508GJOAOE RECONSTRUCTION W/ PLACEMENT OF Miquel Giudry MD 05/16/24 Unknown Breast LFDAStart: 46-20-2145SGSRPL RECONSTRUCTION W/ PLACEMENT OF Miquel Guidry MD 05/16/24 Unknown Breast LFDAStart: 03-21-1107CJYRPJ RECONSTRUCTION W/ PLACEMENT OF Miquel Guidry MD 05/16/24 Unknown Breast LFDAStart: 23-47-9698EARKZF RECONSTRUCTION W/ PLACEMENT OF Miquel Guidry MD 05/16/24 Unknown Breast LFDAStart: 18-73-9239AULALACLSC INSERTION Roshan BRAUN MD 07/22/24 Non Biological Chest +[id number] FDAStart: 37-38-8855SUHDRW RECONSTRUCTION W/ PLACEMENT OF Miquel Guidry MD 05/16/24 Unknown Breast LFDAStart: 74-07-7424DJNEUO RECONSTRUCTION W/ PLACEMENT OF Miquel Guidry MD 05/16/24 Unknown Breast LFDAStart: 18-87-8179LHYSII RECONSTRUCTION W/ PLACEMENT OF Miquel Guirdy MD 05/16/24 Unknown Breast LFDAStart: 11-18-0344QQNDQO RECONSTRUCTION W/ PLACEMENT OF Miquel Guidry MD 05/16/24 Unknown Breast LFDAStart: 68-06-6183YJMUAU RECONSTRUCTION W/ PLACEMENT OF Miquel Guidry MD 05/16/24 Unknown Breast LFDAStart: 11-02-8368KQKPVQ RECONSTRUCTION W/ PLACEMENT OF Miquel Guidry MD 05/16/24 Unknown Breast LFDAStart: 53-62-3798WKRPAV RECONSTRUCTION W/ PLACEMENT OF Miquel Guidry MD 05/16/24 Unknown Breast LFDAStart: 26-84-1657AIOBSL RECONSTRUCTION W/ PLACEMENT OF Miquel Guidry MD 05/16/24 Unknown Breast LFDAStart: 90-90-5243NAWSIZ RECONSTRUCTION W/ PLACEMENT OF Miquel Guidry MD 05/16/24 Unknown Breast LFDAStart: 56-52-1904OUTYQE RECONSTRUCTION W/ PLACEMENT OF Clarke Guidry MDory Tierra 05/16/24 Unknown Breast LFDAStart: 05-16-2024 Goals DatePatient GoalDesired Activity/State Functional Status JrqdFietevmstjInifuxJgtgkipd32-38-3630Zihmwnhdej statusPatient is Progressing Toward BaselineBrecksville Va / [facility] Work Phone: [phone]puyjqunna statusPatient Not at Baseline [facility] Work Phone: [phone]) [phone]tuhrdlpkt StatusN/[facility] Surgery Osgormqz57-28-6460Ygtjraynzq StatusNoBarberton [facility] Hospital10-29-2024Functional StatusN/[facility]08-26-2024Functional StatusNoBarberton [facility] Hospital08-06-2024 Functional StatusN/[facility]04-30-2024Functional StatusN/[facility] Bplgcjoz11-10-3990Yyucjcgysa StatusN/A [facility]12-06-2023Functional StatusN/AGeneral Surgery [place] Mental Status PlnwOadksgvwmvKtovnoDalfzqlj74-90-0991Uavczvvpc functionCognitive Status Patient at [facility] Work Phone: [phone]) 104-23840944506-49-1044Gsmovnfyy functionCognitive Status Patient at [facility] Work Phone: Clinical Notes 2018 to 06-30-2025 Note Date & CyzdJvmdUyiukdmp03-46-1103 NoteNurse Consultation Note Reason for Visit Patient came in office for lab draw Assessment/Plan 1. Wellness examination (Z00.00: Encounter for general adult medical examination without abnormal findings) Medications acetaminophen-oxycodone 325 mg-5 mg Tab alendronate 70 mg oral tablet, effervescent, Oral, qWeek alprazolam 0.25 mg Tab, See Instructions calcium, 0 Claritin, Daily cyclobenzaprine 10 mg Tab, 10 mg= 1 tab(s), Oral, Bedtime, PRN duloxetine 30 mg oral delayed release capsule, 30 mg= 1 cap(s), Oral, Daily, 4 refills Flonase 0.05 mg/inh Amalia, 1 spray(s), Nasal, Daily, 2 refills gabapentin 300 mg Cap, See Instructions gabapentin 300 mg Cap, See Instructions Handicap Placard, 5 years., See Instructions hydrochlorothiazide-losartan 12.5 mg-50 mg Tab, See Instructions iron Misc Medication, See Instructions Pantoprazole [address] Tab Toprol XL 50 mg Tab-ER, 50 mg, Oral, Daily, 1 refills Vitamin B12 Vitamin D3 Allergies Entex (Unknown) Skelaxin (Unknown) corticosteroids (Anaphylaxis) Immunizations Vaccine Date Status Comments influenza virus vaccine, inactivated - Not Given Patient Refuses influenza virus vaccine, inactivated - Not Given Patient Refuses influenza virus vaccine, inactivated - Not Given Patient Refuses SARS-CoV-2 mRNA (toantonioeran 5y-11y) vac - Not Given Postpone due to refusal [facility]10-21-2025 NoteGeneral Surgery Office/Clinic Note Chief Complaint consultation for port removal HPI Staff 64 year old female presents to discuss removal of Lzmbbf-d-tnrf. Port placed 07/2024. Completed chemotherapy 12/2024. Port is being flushed per oncology recommendation, next flush scheduled for tomorrow. History of Present Illness 64 yo female with h/o htn, ADHD, anxiey, essential tremor, osteoarthritis, polyneuropathy, h/o leftbreast cancer; here to discuss port removal; patient had right external jugular port placed 07/2024; port no longer required, not using; patient and her Oncologist request removal; no asa or NSAID use; no tobacco use. Review of Systems PHQ Score Initial Depression Screen Score: 0 SCORE ROS - Provider Constitutional: no fever, no sweats, no weight loss. Eyes: yes glasses, no blurred vision, no visual loss. ENMT: no dentures, no hoarseness, no swallowing difficulties, no hearing loss, no ear infection(s),no nose bleeds. Cardiovascular: normal blood pressure, no [...] noncontributory. Physical Exam Vitals & Measurements HR: 70(Peripheral) RR: 16 BP: 110/68 HT: 63 in HT: 160.5 cm WT: 55 kg WT: 121.254 lb BMI: 21.35 HEENT: normal conjunctiva, sclera clear, no scleral icterus, EOM intact, PERRLA, oral mucosa moist without lesions. Neck: trachea midline, no mass, symmetric, no thyromegaly or nodules, no adenopathy Respiratory: lungs CTA, respirations non labored. right chest wall with well-healed port incision; skin thinned out over port; no open areas or ulcerations. Cardiovascular: regular rate and rhythm, no murmur, no pedal edema or varicosities. Musculoskeletal: normal gait, digits and nails without infection, nodes, cyanosis, clubbing. Skin: no rashes, no lesions, no ulcers, no subcutaneous nodules, induration. Psychiatric/Neuro: oriented to time, place, person, judgement normal, affect appropriate for age, insight intact, no focal deficits. Tests: , review of old records completed , Discussed surgical options, risks, and possible complications with patient. Assessment/Plan 1. Breast cancer of lower-inner quadrant of left female breast (C50.312: Malignant neoplasm of lower-inner quadrant of left female breast) plan port removal under anesthesia, informed consent obtained. 2. Encounter for care related to Port-a-Cath (Z45.2: Encounter for adjustment and management of vascular access device) Follow-up No qualifying data available Problem List/Past Medical History Ongoing Abnormal EKG ADHD Anxiety Breast cancer of lower-inner quadrant of left female breast Complex regional pain syndrome of lower limb Dysuria Encounter for care related to Port-a-Cath Essential tremor HTN (hypertension) Hx of osteoarthritis Idiopathic polyneuropathy Intradermal melanocytic nevus Neoplasm of uncertain behavior of skin of back Neoplasm of uncertain behavior of skin of face Pancytopenia Poor venous access Scoliosis Seasonal allergies UTI symptoms Historical BMI 23.0-23.9, adult Encounter for care related to vascular access port Polyneuropathy RSD lower limb Procedure/Surgical History Insertion of implantable venous access port (07/22/2024), Mastectomy (05/16/2024), Excision of intradermal nevus (02/20/2024), Excision of breast mass (01/10/2024), Biopsy of breast (06/27/2023), Arthroscopy of knee (06/04/1995), Appendectomy, Breast reconstruction, Cholecystectomy, Extraction of wisdom tooth, Foot, Removal of breast implant, Simple dental extraction, DEAN BSO - Total abdominal hysterectomy and bilateral salpingo-oophorectomy, Tonsillectomy and adenoidectomy. Medications acetaminophen-oxycodone 325 mg-5 mg Tab alendronate 70 mg oral tablet, effervescent, Oral, qWeek alprazolam 0.25 mg Tab, See Instructions calcium, 0 Claritin, Daily cyclobenzaprine 10 mg Tab, 10 mg= 1 tab(s), Oral, Bedtime, PRN duloxetine 30 mg oral delayed release capsule, 30 mg= 1 cap(s), Oral, Daily, 4 refills Flonase 0.05 mg/inh Amalia, 1 spray(s), Nasal, Daily, 2 refills gabapentin 300 mg Cap, See Instructions gabapentin 300 mg Cap, See Instructions Handicap Placa (more content not included)...[facility] HospitalComment on above:Result Comment: Electronically Signed By: APARNA PRATT, Roshan Koch.oh\Date and Time Signed: 06/24/25 14:12 [id number] NotePatient Education Cardiovascular Hypertension, Adult Hypertension is another name for high blood pressure. High blood pressure forces your heart to workharder to pump blood. This can cause problems over time. There are two numbers in a blood pressure reading. There is a top number (systolic) over a bottom number (diastolic). It is best to have a blood pressure that is below 120/80. What are the causes? The cause of this condition is not known. Some other conditions can lead to high blood pressure. What increases the risk? Some lifestyle factors can make you more likely to develop high blood pressure: ??? Smoking. ??? Not getting enough exercise or physical activity. ??? Being overweight. ??? Having too much fat, sugar, calories, or salt (sodium) in your diet. ??? Drinking too much alcohol. Other risk factors include: ??? Having any of these conditions: ? Heart disease. ? Diabetes. ? High cholesterol. ? Kidney disease. ? Obstructive sleep apnea. ??? Having a family history of high blood pressure and high cholesterol. ??? Age. The risk increases with age. ??? Stress. What are the signs or symptoms? High blood pressure may not cause symptoms. Very high blood pressure (hypertensive crisis) may cause: ??? Headache. ??? Fast or uneven heartbeats (palpitations). ??? Shortness of breath. ??? Nosebleed. ??? Vomiting or feeling like you may vomit (nauseous). ??? Changes in how you see. ??? Very bad chest pain. ??? Feeling dizzy. ??? Seizures. How is this treated? This condition is treated by making healthy lifestyle changes, such as: ? Eating healthy foods. ? Exercising more. ? Drinking less alcohol. ??? Your doctor may prescribe medicine if lifestyle changes do not help enough and if: ? Your top number is above 130. ? Your bottom number is above 80. ??? Your personal target blood pressure may vary. Follow these instructions at home: Eating and drinking ??? If told, follow the DASH eating plan. To follow this plan: ? Fill one half of your plate at each meal with fruits and vegetables. ? Fill one fourth of your plate at each meal with whole grains. Whole grains include whole-wheat pasta, brown rice, and whole-grain bread. ? Eat or drink low-fat dairy products, such as skim milk or low-fat yogurt. ? Fill one fourth of your plate at each meal with low-fat (lean) proteins. Low- fat proteins includefish, chicken without skin, eggs, beans, and tofu. ? Avoid fatty meat, cured and processed meat, or chicken with skin. ? Avoid pre-made or processed food. ??? Limit the amount of salt in your diet to less than 1,500 mg each day. ??? Do not drink alcohol if: ? Your doctor tells you not to drink. ? You are , may be , or are planning to become . ??? If you drink alcohol: ? Limit how much you have to: ? 0?1 drink a day for women. ? 0?2 drinks a day for men. ? Know how much alcohol is in your drink. In the [place] one drink equals one 12 oz bottle of beer (355 mL), one 5 oz glass of wine (148 mL), or one 1? oz glass of hard liquor (44 mL). Lifestyle ??? Work with your doctor to stay at a healthy weight or to lose weight. Ask your doctor what the best weight is for you. ??? Get at least 30 minutes of exercise that causes your heart to beat faster (aerobic exercise) most days of the week. This may include walking, swimming, or biking. ??? Get at least 30 minutes of exercise that strengthens your muscles (resistance exercise) at least 3 days a week. This may include lifting weights or doing Pilates. ??? Do not smoke or use any products that contain nicotine or tobacco. If you need help quitting, ask your doctor. ??? Check your blood pressure at home as told by your doctor. ??? Keep all follow-up visits. Medicines ??? Take [id number] and prescription medicines only as told by your doctor. Follow directionscarefully. ??? Do not skip doses of blood pressure medicine. The medicine does not work as well if you skip doses. Skipping doses also puts you at risk for problems. ??? Ask your doctor about side effects or reactions to medicines that you should watch for. Contact a doctor if: ??? You think you are having a reaction to the medicine you are taking. ??? You have headaches that keep coming back. ??? You feel dizzy. ??? You have swelling in your ankles. ??? You have trouble with your vision. Get help right away if: ??? You get a very bad headache. ??? You start to feel mixed up (confused). ??? You feel weak or numb. ??? You feel faint. ??? You have very bad pain in your: ? Chest. ? Belly (abdomen). ??? You vomit more than once. ??? You have trouble breathing. These symptoms may be an emergency. Get help right away. Call 911. ??? Do not wait to see if the symptoms will go away. ??? Do not drive yourself to the hospital. Summary ??? Hypertension is a (more content not included)...[facility] 06-16-2025 NotePatient Education Cardiovascular Managing Your Hypertension Hypertension, also called high blood pressure, is when the force of the blood pressing against the blanco of the arteries is too strong. Arteries are blood vessels that carry blood from your heart throughout your body. Hypertension forces the heart to work harder to pump blood and may cause the arteries to become narrow or stiff. Understanding blood pressure readings A blood pressure reading includes a higher number over a lower number: ??? The first, or top, number is called the systolic pressure. It is a measure of the pressure in your arteries as your heart beats. ??? The second, or bottom number, is called the diastolic pressure. It is a measure of the pressurein your arteries as the heart relaxes. For most people, a normal blood pressure is below 120/80. Your personal target blood pressure may vary depending on your medical conditions, your age, and other factors. Blood pressure is classified into four stages. Based on your blood pressure reading, your health care provider may use the following stages to determine what type of treatment you need, if any. Systolic pressure and diastolic pressure are measured in a unit called millimeters of mercury (mmHg). Normal ??? Systolic pressure: below 120. ??? Diastolic pressure: below 80. Elevated ??? Systolic pressure: 120?129. ??? Diastolic pressure: below 80. Hypertension stage 1 ??? Systolic pressure: 130?139. ??? Diastolic pressure: 80?89. Hypertension stage 2 ??? Systolic pressure: 140 or above. ??? Diastolic pressure: 90 or above. How can this condition affect me? Managing your hypertension is very important. Over time, hypertension can damage the arteries and decrease blood flow to parts of the body, including the brain, heart, and kidneys. Having untreated or uncontrolled hypertension can lead to: ??? A heart attack. ??? A stroke. ??? A weakened blood vessel (aneurysm). ??? Heart failure. ??? Kidney damage. ??? Eye damage. ??? Memory and concentration problems. ??? Vascular dementia. What actions can I take to manage this condition? Hypertension can be managed by making lifestyle changes and possibly by taking medicines. Your health care provider will help you make a plan to bring your blood pressure within a normal range. You may be referred for counseling on a healthy diet and physical activity. Nutrition ??? Eat a diet that is high in fiber and potassium, and low in salt (sodium), added sugar, and fat.An example eating plan is called the DASH diet. DASH stands for Dietary Approaches to Stop Hypertension. To eat this way: ? Eat plenty of fresh fruits and vegetables. Try to fill one-half of your plate at each meal with fruits and vegetables. ? Eat whole grains, such as whole-wheat pasta, brown rice, or whole-grain bread. Fill about one-fourth of your plate with whole grains. ? Eat low-fat dairy products. ? Avoid fatty cuts of meat, processed or cured meats, and poultry with skin. Fill about one-fourth of your plate with lean proteins such as fish, chicken without skin, beans, eggs, and tofu. ? Avoid pre-made and processed foods. These tend to be higher in sodium, added sugar, and fat. ??? Reduce your daily sodium intake. Many people with hypertension should eat less than 1,500 mg ofsodium a day. Lifestyle ??? Work with your health care provider to maintain a healthy body weight or to lose weight. Ask what an ideal weight is for you. ??? Get at least 30 minutes of exercise that causes your heart to beat faster (aerobic exercise) most days of the week. Activities may include walking, swimming, or biking. ??? Include exercise to strengthen your muscles (resistance exercise), such as weight lifting, as part of your weekly exercise routine. Try to do these types of exercises for 30 minutes at least 3 days a week. ??? Do not use any products that contain nicotine or tobacco. These products include cigarettes, chewing tobacco, and vaping devices, such as e-cigarettes. If you need help quitting, ask your health care provider. ??? Control any long-term (chronic) conditions you have, such as high cholesterol or diabetes. ??? Identify your sources of stress and find ways to manage stress. This may include meditation, deep breathing, or making time for fun activities. Alcohol use ??? Do not drink alcohol if: ? Your health care provider tells you not to drink. ? You are , may be , or are planning to become . ??? If you drink alcohol: ? Limit how much you have to: ? 0?1 drink a day for women. ? 0?2 drinks a day for men. ? Know how much alcohol is in your drink. In the [place] one drink equals one 12 oz bottle of beer (355 mL), one 5 oz glass of wine (148 mL), or one 1? oz glass of hard liquor (44 mL). Medicines Your health care provider may prescribe medicine if lifestyle changes are not enough (more content not included)...[facility]08-20-[facility] [place] [address] Cancer [facility] Note Signed Patient: Adelina Mir MR#: [id number] : 1960 Acct:[id number] Age/Sex: 64 / F Type: REG AMB Date of Service: 04/23/25 Copies to: Michael Holley MD~ Assessment & Plan A/P (1) Breast cancer, left: (2) Osteopenia: Plan Based on the biopsy done on 01/10/2024 it reveals pT1c, pNX, ER positive, TX positive, HER2/pat negative (1+), no DCIS, tumor size of the invasive ductal carcinoma is 1.7 cm at least with positive superior margin and no lymphovascularinvasion detected. No lymph nodes included in the biopsy. Patient was referredfor further surgical resection with bilateral mastectomy by Dr. Braun and Dr. Bustamante forreconstructive surgery. - Invitae gene testing done 03/01/24 was negative. -Bone density scan done on 02/15/2024 revealed osteopenia with a T-score of -1.4 in the left femoralneck. - Oncotype Dx score was done on the biopsy tissue based on unknown gwen statusat that time revealed: - If she is node-negative: Recurrence score of 5 with distant recurrence risk at 9 years of 3% withendocrine therapy alone with less than 1% benefit from the chemo. - If Node positive and premenopausal: Recurrence score will be 5 with distantrecurrence risk at 5 years 3% with her medicine better or endocrine therapy alone and chemo benefit 2.3%. -If she is postmenopausal and node positive the recurrence score is 5 with distant recurrence risk at 5 years with AI or tamoxifen alone is 1% and chemo benefit no apparent benefit noticed as it is less than 1% only. -If she has node positive of 4 or more lymph nodes then recurrence score is 5% and the distant recurrence at 9 years is 35% with AI and tamoxifen alone. -She underwent left breast mastectomy with sentinel node biopsy 05/16/2024, skin sparing with immediate reconstruction with tissue litharge supervisor by Dr. Bustamante. Surgical path from surgery done on 05/16/2024 revealed: A. Left axillary sentinel lymph node 1 out of 2 lymph nodes positive for metastatic carcinoma with mucinous features with extranodal extension again and 1 out of 2 lymph nodes. B. Lymph nodes in the left axillary sentinel lymph node 2 of 6 lymph nodes positive for metastatic carcinoma with mucinous features with extranodal extension. Left breast mastectomy revealed invasive ductal carcinoma with mucinous featuresgrade 2, 1.4 cm in greatest dimension. Ductal carcinoma in situ low-grade cribriform Lymphovascular invasion present Focal invasive carcinoma is present within 1 mm from inked inferior margin. Resection margins negative for DCIS with 5 mm from closest deep margin. Fibrocystic changes characterized by apocrine metaplasia and usual ductal hyperplasia with adenosisand microcalcification. Skin and nipple uninvolved by DCIS or invasive cancer Stage IIA, TNM stage is pT1c, pN1a. Number of lymph nodes with macrometastasis 3 and number of lymph nodes with isolated tumor cells 0 and number of lymph nodes with micrometastasis 0. Extranodal extension is present. ER positive over 90%, TX +80%, HER2 negative (1+), Ki-67 3% Treatment plan: After discussing the above findings from the surgical path with her and considering that she has extranodal extension of 3 out of 6 lymph nodes and lymphovascular invasion positive with 1.4 cm tumor that is grade 2, I recommended adjuvant chemo using dose dense AC followed by T followed by adjuvantradiation followed by adjuvant endocrine therapy. She agreed and signed the consent. Side effects were discussed with patient. 07/31/24: She is here for 1 week toxicity check after cycle 1 of dose dense AC obtained orgiven on 07/24/2024. She tolerated C1 without any complaints but has same postnasal drainage for more than 4 weeks evenbefore chemo without sore throat or fevers. She tried Benadryl and can not take steroids due to allergy to steroids. She is scheduled for cycle 2 on 08/08/2024. Labs on 07/30/2024 revealed normal CBC with normal WBC of 5.7 normal ANC of 4.2 and unremarkable CMP. - Proceeded with cycle 2 of dose dense AC on 08/08/2024. 08/21/24: She is here for evaluation prior to her C3 of the adjuvant ddAC scheduled on 08/22/24. She had mildfatigue and had nausea for 6 days after cycle 2 of dose dense AC but not vomiting and no chest painor shortness of breath or leg edema or abdominal pain or diarrhea. She has chronic peripheral neuropathy even before chemotherapy. No fevers or current infections. Her Zofran she took daily for 6 days after cycle 2 helped her nausea. - Proceeded with C3 ddAC on 08/21/24 if labs meets criteria for chemo. Continue using calcium 500 mg twice daily and vitamin D 2000 unit daily for her mild osteopenia. Next DEXA scan is in 02/2026. After she completes 4 cycles of ddAC she then can start weekly taxol 2 weeks after C4 of AC. 09/03/24: She continues to do fairly well with treatment and will receive cycle 4 ddAC this week. Her labs remain okay for continued treatment. She will follow-up in2 weeks with Dr. Bales with plans of starting her weekly Taxol at that visit as well. 09/17/24: Patient sent to ED for worsening symptoms, will likely hold off on initiation of Taxol this week given acute concerns. 09/19/24: She is admitted with a hemoglobin of 5.6 and found to have pneumonia as well as UTI during this admission evaluation with urine culture and was transfused 2 units of packed RBC and brought her hemoglobin up to 7.7 on 09/19/2024. Her platelet on admission on 09/17/2024 was 24K on 09/17/24 and they are 38K on 09/19/24 without evidence or signs of clinical bleeding. - Medical oncology was consulted for further recommendation regarding her anemia, thrombocytopenia and left breast cancer treatment considering that she missed her week 1 of the weekly Taxol scheduled on 09/18/24. Clinically she denied any melena or rectal bleeding or gross hematuria. She denies any hemoptysis however she has some right lower chest discomfort and cough likely from her pneumonia. She has some burning with her urination as well. 10/03/24: She is here for 2 weeks follow up after hospital admission for pneumonia, UTI, severe anemia and thrombocytopenia with hgb 5.6 and plt 24K (see above). Labs on 10/03/2024 revealed hemoglobin increased to 8.9 WBC is 9.8 and a plateletcount of is back tonormal 321. CMP are normal. She is here to resume her adjuvant chemo as she was supposed to start her week 1of adjuvant weekly Taxol prior to her recent admission. - She did not start her week1 of the weekly Taxol on 10/09/24 because of generalized weakness. 10/16/24: Patient is here for to start week1 of the weekly Taxol. No new complaints. Labs on 10/15/2024 revealed stable anemia hemoglobin 8.1 with normal WBC and platelet count and normal creatinine and LFTs. - Started weekly Taxol on 10/16/24. 10/30/24: Patient is here for week 3 of her adjuvant weekly Taxol out of the planned 12 weeks for her left breast cancer. No new complaints. No bleeding. no new masses or enlarged LNs. Labs on 10/29/2024 revealed stable anemia hemoglobin 8.9 with platelet 145 slightly lower than before and normal WBC and ANC. CMP is unremarkable. Iron studies revealed normal iron 81 with TIBC 321 normal iron saturation 25 and ferritin of 459 hide. She was given Cymbalta by Palliative for her neuropathy and it helped a lot. 12/11/24: Patient is here for week 9 of her adjuvant weekly Taxol. She is tolerating it well without changes on her neuropathy however she complains of distal painful swelling of both feet specially the left foot since September 2024 hospital admission. The swelling improved last week after 1 dose of Lasix given IV during the infusion treatment. She denied any fevers. She has slight erythema that has been stable since September 2024 the left foot. Once again no fever and no chills.. Labs are unremarkable except for mild stable anemia hgb 10.6. - I rechecked her blood pressure it came back 190/98 by my reading and it was 205/90 and by the midlevel during the triage. 01/01/25: She is here for week 12 of her weekly Taxol. She is tolerating it well with stable neuropathy. She is scheduled to start her adjuvant radiation on 02/04/25. her PCP started her on Cymbalta in addition to her gabapentin for her neuropathyof the feet which is helping a lot. The swelling n the left foot is same as before and did not improve on Lasix. Thus stop lasix and klor con and tray Ibuprofen 400 mg bid with food for 7-10 days with use of pantoprazole 40 mg daily for 2 weeks. - Proceeded with week 12 Taxol 9last treatment) on 01/01/25. 04/23/25: She is here for aromatase inhibitor toxicity check which she started taking since she completed heradjuvant radiation from 02/04/25 completed on 03/12/25. - Labs on 04/21/2025 revealed normal WBC, hemoglobin, platelet count however MCV is slightly elevated 101 which is chronically elevated and now better than before. Absolute monocyte count slightly elevated at 0.9. CMP revealed BUN of 31 higher than before and creatinine 1.41. LFTs unremarkable. -She denied any side effects to the Feeman denied any hot flashes denied any legswelling. She stopped taking the Lasix and the potassium in December 2024. She has been drinking water but may not be 64 ounces daily. She denies any diarrhea. She gets occasional leg cramps. PLAN: Continue Femara 2.5 mg once daily. Continue Cymbalta in addition to gabapentin for neuropathy of the feet which arehelping a lot. Continue B1/B6/B12 50/50/500 mg for neuropathy history. Asked her to try the magnesium [id number] once daily for the licorice for couple weeks see ifit improves then to continue it if not to stop it and check with the primary care physician for theleg cramps etiologies. Continue calcium and vit D for osteopenia. Continue Fosamax 70 mg once a week for her osteopenia seen on DEXA in 03/2024. Obtain her annual right screening mammogram next few weeks. Due to slight increase in the BUN and creatinine compared with prior studies I encouraged her to increase hydration to a 64 ounces water daily and we will check her CMP in 1 week. She may need to follow-up with her PCP if her renal function continues to be abnormal to consider being Losartan related and even USkidneys to rule out kidney stones or hydronephrosis. RTC in 6 months with CMP prior. Orders: Orders Comprehensive Metabolic Panel 6 Months C50.912 - Malignant neoplasm of unspecified site of left female breast, Z17.0 - Estrogen receptor positive status [ER+] MM screening mammo RT w/CAD 3 Days C50.912 - Malignant neoplasm of unspecified site of left female breast, Z17.0 - Estrogen receptor positive status [ER+] Referrals Referral to General Surgery C50.912 - Malignant neoplasm of unspecified site of left female breast,Z17.0 - Estrogen receptor positive status [ER+] Patient Instructions: cmp in 1 week cmp in 6 months refer for port removal R screening mammogram soon follow up in 6 months CHEMO PLAN Treatment Plan Paclitaxel 80mg/m2 Weekly x 4 weeks Clinical Indication No Indication Cycle Number Last Admin 3 of 3 Completed Cycle Day Next Admin No Active Chemotherapy History of Present Illness SHAE Sahu is a 63-year-old nice lady with history of generalized anxiety disorder, ADHD, complex regional pain syndrome of the lower extremity, essential tremor, hypertension and osteoarthritis to has idiopathic polyneuropathy and scoliosis with history of intermittent marijuana use as needed for paincontrol who was referred to our medical oncology clinic by Dr. 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 Patient has been having intermittent nipple discharge with possible fistula from the left breastbut no nipple bleeding for several months. She had BI-RADS 3 screening mammogram in April 2023 which was followed by ultrasound patient underwent initial biopsy of the suspicious left breast lesion on 07/12/2023 however results of the path of that biopsy was consistent with fibrovascular adipose tissue with no pathology present. Patient continues to have nipple discharge and Dr. Braun plan to do alumpectomy however because of cardiac workup and clearance needed another biopsy was done on left breast under ultrasound guidance and it came back also inconclusive in November 2023 which led to excisio nal biopsy performed on 01/10/2024. The path results of that excisional biopsy done on 01/10/2024 is asfollows: Pathological Diagnosis 01/10/2024: Mass, left breast, 7:00, lumpectomy: Invasive ductal carcinoma. Tumor Is 1.7 Cm In Greatest Dimension. Grade 2/ Moderately Differentiated. Tumor is present at the superior surgical margin. Tumor Is less than 0.1 Cm From The anterior and lateral surgical Margins. No Evidence Of Lymphovascular Invasion. Breast Hormone Profile ER: Positive TX: Positive HER2/pat by immunostain: Negative (1+) CAP CANCER CASE SUMMARY SPECIMEN Procedure: Excision [...] report. pT Category: pT1c pN Category: pNx Patient denies any family history of ovarian cancer however she has a cousin with breast cancer. She has a sister with multiple lumps under her breast but there were not cancerous. No known family history of ovarian cancer however her mom had mesothelioma. She does not know her father side because she does not know her biological father. 05/30/24: She is here for further planning of care after her left breast mastectomy and for results of the DEXA scan and Oncotype DX. Patient was sent to Dr. Bustamante for reconstructive breast surgeries as she is electing to go for bilateral mastectomy. She was also sent to our medical oncology clinic for recommendation regarding management of her new left breast cancer that is ER positive TX positive and HER2/pat negative but nolymph nodes were obtained as of this initial consult done on 02/08/2024. Surgery date yet to be determined [address] BRAUN. - Inv[facility]ae gene testing done 03/01/24 was negative. -Bone density scan done on 02/15/2024 revealed osteopenia with a T-score of -1.4 in the left femoralneck. - Oncotype Dx score was done on the biopsy tissue based on unknown gwen status at that time revealed: - If she is node-negative: Recurrence score of 5 with distant recurrence risk at 9 years of 3% withendocrine therapy alone with less than 1% benefit from the chemo. - If Node positive and premenopausal: Recurrence score will be 5 with distant recurrence risk at 5 years 3% with her medicine better or endocrine therapy alone and chemo benefit 2.3%. -If she is postmenopausal and node positive the recurrence score is 5 with distant recurrence risk at 5 years with AI or tamoxifen alone is 1% and chemo benefit no apparent benefit noticed as it is less than 1% only. -If she has node positive of 4 or more lymph nodes then recurrence score is 5% and the distant recurrence at 9 years is 35% with AI and tamoxifen alone. -She underwent left breast mastectomy with sentinel node biopsy 05/16/2024, skin sparing with immediate reconstruction with tissue litharge supervisor by Dr. Bustamante. Surgical path from surgery done on 05/16/2024 revealed: A. Left axillary sentinel lymph node 1 out of 2 lymph nodes positive for metastatic carcinoma with mucinous features with extranodal extension again and 1 out of 2 lymph nodes. B. Lymph nodes in the left axillary sentinel lymph node 2 of 6 lymph nodes positive for metastatic carcinoma with mucinous features with extranodal extension. Left breast mastectomy revealed invasive ductal carcinoma with mucinous features grade 2, 1.4 cm ingreatest dimension. Ductal carcinoma in situ low-grade cribriform Lymphovascular invasion present Focal invasive carcinoma is present within 1 mm from inked inferior margin. Resection margins negative for DCIS with 5 mm from closest deep margin. Fibrocystic changes characterized by apocrine metaplasia and usual ductal hyperplasia with adenosisand microcalcification. Skin and nipple uninvolved by DCIS or invasive cancer Stage IIA, TNM stage is pT1c, pN1a. Number of lymph nodes with macrometastasis 3 and number of lymph nodes with isolated tumor cells 0 and number of lymph nodes with micrometastasis 0. Extranodal extension is present. ER positive over 90%, TX +80%, HER2 negative (1+), Ki-67 3% 07/31/24: She is here for 1 week toxicity check after cycle 1 of dose dense AC obtained or given on 07/24/2024. She tolerated C1 without any complaints but has same postnasal drainage for more than 4 weeks even before chemo without sore throat or fevers. She tried Benadryl and can not take steroids due to allergy to steroids. She is scheduled for cycle 2 on 08/08/2024. Labs on 07/30/2024 revealed normal CBC with normal WBC of 5.7 normal ANC of 4.2 and unremarkable CMP. 08/21/24: She is here for evaluation prior to her C3 of the adjuvant ddAC scheduled on 08/22/24. She had mildfatigue and had nausea for 6 days after cycle 2 of dose dense AC but not vomiting and no chest painor shortness of breath or leg edema or abdominal pain or diarrhea. She has chronic peripheral neuropathy even before chemotherapy. No fevers or current infections. Her Zofran she took daily for 6 days after cycle 2 helped her nausea. 14 point review of systems was obtained and was negative. 09/03/24: She presents for cycle 4 ddAC. She continues with fatigue and dyspnea if she exerts herself, otherwise no chest pain or shortness of breath at rest. No change in her neuropathy with treatment. Her nausea has better controlled now that she is taking her antiemetics regularly. She is eating and drinking ok and denies vomiting, diarrhea, or constipation. She denies other new concerns as well. Her labs remain okay for continued treatment. 09/17/24: She presents to clinic as an add-on for worsening symptoms. Her daughter is concerned that she has pneumonia as she has been having shortness of breath and not eating much at all. Vitals today note significant hypotension and decreased heart rate. Her oxygen levels on arrival dropped between 70s/80s and she was placed on supplemental oxygen, up to 6 L in office before her sats improved into the 90s. She has attempted to give a urine sample as she has concern for UTI as well, however was not able to go. Given acute symptoms, we have decided to send her to the ED for further evaluation. 09/19/24: She is admitted with a hemoglobin of 5.6 and found to have pneumonia as well as UTI during this admission evaluation with urine culture and was transfused 2 units of packed RBC and brought her hemoglobin up to 7.7 on 09/19/2024. Her platelet on admission on 09/17/2024 was 24K on 09/17/24 and they are 38K on 09/19/24 without evidence or signs of clinical bleeding. - Medical oncology was consulted for further recommendation regarding her anemia, thrombocytopenia and left breast cancer treatment considering that she missed her week 1 of the weekly Taxol scheduled on 09/18/24. Clinically she denied any melena or rectal bleeding or gross hematuria. She denies any hemoptysis however she has some right lower chest discomfort and cough likely from her pneumonia. She has some burning with her urination as well. 10/03/24: She is here for 2 weeks follow up after hospital admission for pneumonia, UTI, severe anemia and thrombocytopenia with hgb 5.6 and plt 24K (see above). Labs on 10/03/2024 revealed hemoglobin increased to 8.9 WBC is 9.8 and a platelet count of is back to normal 321. CMP are normal. She is here to resume her adjuvant chemo as she was supposed to start her week 1 of adjuvant weeklyTaxol prior to her recent admission. She feels much better. No more SOB and no CP or bleeding from any source. 10/16/24: Patient is here for to start week1 of the weekly Taxol. No new complaints. Labs on 10/15/2024 revealed stable anemia hemoglobin 8.1 with normal WBC and platelet count and normal creatinine and LFTs. 10/30/24: Patient is here for week 3 of her adjuvant weekly Taxol out of the planned 12 weeks for her left breast cancer. No new complaints. No bleeding. no new masses or enlarged LNs. Labs on 10/29/2024 revealed stable anemia hemoglobin 8.9 with platelet 145 slightly lower than before and normal WBC and ANC. CMP is unremarkable. Iron studies revealed normal iron 81 with TIBC 321 normal iron saturation 25 and ferritin of 459 hide. She was given Cymbalta by Palliative for her neuropathy and it helped a lot. 12/11/24: Patient is here for week 9 of her adjuvant weekly Taxol. She is tolerating it well without changes on her neuropathy however she complains of distal painful swelling of both feet specially the left foot since September 2024 hospital admission. The swelling improved last week after 1 dose of Lasix given IV during the infusion treatment. She denied any fevers. She has slight erythema that has been stable since September 2024 the left foot. Once again no fever and no chills.. Labs are unremarkable except for mild stable anemia hgb 10.6. - I rechecked her blood pressure it came back 190/98 by my reading and it was 205/90 and by the midlevel during the triage. 01/01/25: She is here for week 12 of her weekly Taxol. She is tolerating it well with stable neuropathy. She is scheduled to start her adjuvant radiation on 02/04/25. her PCP started her on Cymbalta in addition to her gabapentin for her neuropathy of the feet which is helping a lot. The swelling n the left foot is same as before and did not improve on Lasix. Thus stop lasix and klor con and tray Ibuprofen 400 mg bid with food for 7-10 days with use of pantoprazole 40 mg daily for 2 weeks. 04/23/25: She is here for aromatase inhibitor toxicity check which she started taking since she completed heradjuvant radiation from 02/04/25 completed on 03/12/25. - Labs on 04/21/2025 revealed normal WBC, hemoglobin, platelet count however MCV is slightly elevated 101 which is chronically elevated and now better than before. Absolute monocyte count slightly elevated at 0.9. CMP revealed BUN of 31 higher than before and creatinine 1.41. LFTs unremarkable. -She denied any side effects to the Feeman denied any hot flashes denied any leg swelling. She stopped taking the Lasix and the potassium in December 2024. She has been drinking water but may not be 64 ounces daily. She denies any diarrhea. She gets occasional leg cramps. Intake Vitals/Pain Assessment 04/23/25 11:30 Weight 54.431 kg BP 175/78 H Blood Pressure Location Rt brachial Position Sitting Temp 98 F Pulse 63 Pulse Source NIBP Respiration 20 Pulse Oximetry (%) 96 Are you having pain? No Intake Visit Reasons: 10 wk f/u Allergies Corticosteroids (Glucocorticoids) Allergy (Verified 02/04/25 11:06) Unknown Reaction metaxalone (From Skelaxin) Allergy (Verified 02/04/25 11:06) Unknown Reaction entex Allergy (Uncoded 02/04/25 11:06) Unknown Reaction Home Medications - Last Reconciled 04/23/25 by MARY Chavarria alendronate (Fosamax) 70 mg PO QWEEK alprazolam 0.25 mg PO TID PRN aspirin 81 mg PO DAILY Held on 09/25/24. Instructions: hold as per oncology, restart per oncology cyclobenzaprine 10 mg PO HS PRN duloxetine 60 mg PO DAILY 30 days fluticasone propionate 50 mcg/actuation 1 spray intranasal BID furosemide (Lasix) 20 mg PO DAILY gabapentin 300 mg PO TID letrozole (Femara) 2.5 mg PO DAILY loratadine (Claritin) 10 mg PO DAILY losartan 25 mg PO DAILY metoprolol succinate ER 50 mg PO DAILY mometasone 0.1% 1 applic topical DAILY naloxone 4 mg/actuation 4 mg intranasal Q2-3M PRN ondansetron 8 mg PO Q8HR PRN oxycodone-acetaminophen 10-325 mg 1 tab PO Q4-6H PRN 30 days pantoprazole (Protonix) 40 mg PO DAILY potassium chloride ER (Klor-Con M) 20 mEq PO DAILY prochlorperazine maleate (Compazine) 10 mg PO Q6HR PRN silver sulfadiazine 1% (Silvadene) 1 applic topical BID Gastrointestinal Is the patient taking opioids for pain control?: Yes Bowel Protocol for Opioids Given: Yes Bowel Pattern: Regular Bowel Movement Aid(s): None Falls Fall Precaution Measures Taken: Patient in chair Nurse's Note: Patient is here for a 4 month follow up with labs for review. Taking Letrozole. No concerns voiced at time of intake. [facility] Medical History Medical History Breast cancer, left Immunosuppressed due to chemotherapy Pneumonia Bacteremia due to Streptococcus pneumoniae Acute anemia Pancytopenia UTI (urinary tract infection) Pneumonia Osteopenia Encounter for screening for osteoporosis Hypertension Surgical History Surgical History History of knee surgery bilateral History of lumpectomy of left breast History of cholecystectomy History of appendectomy History of hysterectomy History of foot surgery multiple bilateral Family History Family History Family/Other Breast cancer Social History Social History Smoking status: Former smoker What tobacco products do you use: cigarettes Smoking quit date/years:>15 years ago Within the past year, how often did you have a drink containing alcohol: monthly or less In the past 12 months, have you used illegal drugs or prescription drugs for non-medical reasons?: No Review of Systems ROS Details: All systems reviewed & no additional complaints except as documented General: Patient denied fevers, chills, rigors, weight loss or loss of appetite. Head: Patient denied any headaches or vision changes Thoracic: Patient denied any shortness of breath or cough or hemoptysis Cardiovascular patient denies any chest pain or leg edema GI: Patient denies any nausea vomiting rectal bleed diarrhea : Patient denied gross hematuria. Hematology: Patient denied any bleeding from any source. No easy bruising. Lymphatic: No enlarged LAP anywhere. Skin: Normal skin exam no rashes or suspicious lesions. Neurological patient denies any headache or dizziness or focal weakness or sensory changes. Physical Exam EXAM Physical exam: KPS 90 General: Alert and oriented, no acute distress. HEENT: Normocephalic, extraocular movements intact Chest: Normal work of breathing on room air Breast: Treated breast shows surgical incision well-healed. Persistent tanning c/w radiation field with dry, peeling skin. No palpable mass or abnormality. Contralateral breast within normal limits. Lymph: No palpable cervical, supraclavicular, axillary lymphadenopathy Abdomen: Nonacute MSK: Extremities within normal limits [facility]) LAB RESULTS Corrected WBC, (3.8-11.6) 8.2 X10E3/uL 04/21/25, 10:2 5 Hgb, (11.8-15.4) 12.6 g/dL 04/21/25, 10:25 Hct, (34.0-46.4) 37.6 % 04/21/25, 10:25 MCV, (80-100) 101.0 fl H 04/21/25, 10:25 RDW, (11.9-15.3) 15.0 % 04/21/25, 10:25 Plt Count, (150-450) 205 x10E3/uL 04/21/25, 10:25 Sodium, (136-145) 136 mmol/L 04/21/25, 10:25 Potassium, (3.5-5.1) 4.1 mmol/L 04/21/25, 10:25 BUN, (7-25) 31 mg/dL H 04/21/25, 10:25 Creatinine, (0.60-1.20) 1.41 mg/dL H 04/21/25, 10:25 Glucose, (70-100) 107 mg/dL H 04/21/25, 10:25 Est GFR (CKD-EPI) 41.914 mL/Min 04/21/25, 10:25 Calcium, (8.6-10.3) 9.4 mg/dL 04/21/25, 10:25 Total Bilirubin, (0.3-1.0) 0.5 mg/dl 04/21/25, 10: 25 AST, (13-39) 16 U/L 04/21/25, 10:25 ALT, (7-52) 12 U/L 04/21/25, 10:25 Alkaline Phosphatase, (34-104) 64 U/L 04/21/25, 10:25 Total Protein, (6.4-8.9) 6.8 gm/dL 04/21/25, 10:25 Albumin, (3.5-5.7) 4.1 gm/dL 04/21/25, 10:25 Social Determinants of Health Screening SDOH last assessed in clinic: 04/23/25 Will the patient participate in the screening?: Yes Do you worry about having a steady place to live?: No In the past 12 months, have you had to go without electric, gas, oil, or water in your home?: No Have you or anyone in your house had to go without enough food to eat?: No Has lack of reliable transportation kept you from medical appointments or from doing things needed for daily living?: No Has anyone in your support network made you feel unsafe for any reason?: No Does the patient want assistance with any of the above?: No Dictated By: Kush Glez MD DD/ [id number] Signed By: 04/23/25 1213 [facility] [place]07-22-2025 NotePatient Education Neurology Neuropathic Pain Neuropathic pain is pain caused by damage to the nerves that are responsible for certain sensationsin your body (sensory nerves). Neuropathic pain can make you more sensitive to pain. Even a minor sensation can feel very painful.This is usually a long-term (chronic) condition that can be difficult to treat. The type of pain differs from person to person. It may: ??? Start suddenly (acute), or it may develop slowly and become chronic. ??? Come and go as damaged nerves heal, or it may stay at the same level for years. ??? Cause emotional distress, loss of sleep, and a lower quality of life. What are the causes? The most common cause of this condition is diabetes. Many other diseases and conditions can also cause neuropathic pain. Causes of neuropathic pain can be classified as: ??? Toxic. This is caused by medicines and chemicals. The most common causes of toxic neuropathic pain is damage from medicines that kill cancer cells (chemotherapy) or alcohol abuse. ??? Metabolic. This can be caused by: ? Diabetes. ? Lack of vitamins like B12. ??? Traumatic. Any injury that cuts, crushes, or stretches a nerve can cause damage and pain. ??? Compression-related. If a sensory nerve gets trapped or compressed for a long period of time, the blood supply to the nerve can be cut off. ??? Vascular. Many blood vessel diseases can cause neuropathic pain by decreasing blood supply and oxygen to nerves. ??? Autoimmune. This type of pain results from diseases in which the body's defense system (immune system) mistakenly attacks sensory nerves. Examples of autoimmune diseases that can cause neuropathic pain include lupus and multiple sclerosis. ??? Infectious. Many types of viral infections can damage sensory nerves and cause pain. Shingles infection is a common cause of this type of pain. ??? Inherited. Neuropathic pain can be a symptom of many diseases that are passed down through families (genetic). What increases the risk? You are more likely to develop this condition if: ??? You have diabetes. ??? You smoke. ??? You drink too much alcohol. ??? You are taking certain medicines, including chemotherapy or medicines that treat immune system disorders. What are the signs or symptoms? The main symptom is pain. Neuropathic pain is often described as: ??? Burning. ??? Shock-like. ??? Stinging. ??? Hot or cold. ??? Itching. How is this diagnosed? No single test can diagnose neuropathic pain. It is diagnosed based on: ??? A physical exam and your symptoms. Your health care provider will ask you about your pain. You may be asked to use a pain scale to describe how bad your pain is. ??? Tests. These may be done to see if you have a cause and location of any nerve damage. They include: ? Nerve conduction studies and electromyography to test how well nerve signals travel through your nerves and muscles (electrodiagnostic testing). ? Skin biopsy to evaluate for small fiber neuropathy. ??? Imaging studies, such as: ? X-rays. ? CT scan. ? MRI. How is this treated? Treatment for neuropathic pain may policy change clerks supervisor time. You may need to try different treatment options or a combination of treatments. Some options include: ??? Treating the underlying cause of the neuropathy, such as diabetes, kidney disease, or vitamin deficiencies. ??? Stopping medicines that can cause neuropathy, such as chemotherapy. ??? Medicine to relieve pain. Medicines may include: ? Prescription or mrgg-ygn-dcahqxx pain medicine. ? Anti-seizure medicine. ? Antidepressant medicines. ? Pain-relieving patches or creams that are applied to painful areas of skin. ? A medicine to numb the area (local anesthetic), which can be injected as a nerve block. ??? Transcutaneous nerve stimulation. This uses electrical currents to block painful nerve signals.The treatment is painless. ??? Alternative treatments, such as: ? Acupuncture. ? Meditation. ? Massage. ? Occupational or physical therapy. ? Pain management programs. ? Counseling. Follow these instructions at home: Medicines ??? Take fcwe-sqy-igvdooi and prescription medicines only as told by your health care provider. ??? Ask your health care provider if the medicine prescribed to you: ? Requires you to avoid driving or using machinery. ? Can cause constipation. You may need to take these actions to prevent or treat constipation: ? Drink enough fluid to keep your urine pale yellow. ? Take yqoo-yac-dsznwbz or prescription medicines. ? Eat foods that are high in fiber, such as beans, whole grains, and fresh fruits and vegetables. ? Limit foods that are high in fat and processed sugars, such as fried or sweet foods. Lifestyle ??? Have a good support system at home. ??? Consider joining a chronic pain support group. ??? Do not use any products that contain nicotine or t (more content not included)...[facility]06-03-2025 Evaluation note* Diagnosis Onset Date Resolution Status Admit Date Breast cancer, left acuteJune 2024 10:59amBreast cancer, leftacuteJune 2024 10:46am NeuropathyacuteJune 2024 10:46amBreast cancer, leftacuteJuly 2024 10:43amBreast cancer, leftacuteAugust 2024 10:30am [facility] Work Phone: 1(303) 608-457706-03-2025 Evaluation note* Diagnosis Onset Date Resolution Status Admit Date Breast cancer, left acuteJune 2024 10:59amBreast cancer, leftacuteJune 2024 10:46am NeuropathyacuteJune 2024 10:46amBreast cancer, leftacuteJuly 2024 10:43amBreast cancer, leftacuteAugust 2024 10:30amAdjustment disorder with mixed anxiety and depressed moodacuteAugust 2024 7:32amBreast cancer, left acuteAugust 2024 7:32amCancer associated painacuteAugust 2024 7:32am Breast cancer, leftacuteAugust 2024 11:06amOsteopeniainactiveAugust 2024 11:06am [facility] Work Phone: 1(360) 605-548706-03-2025 [place] [address] [facility] Note Signed Patient: Adelina Mir MR#: [id number] : 1960 Acct:[id number] Age/Sex: 64 / F Type: REG AMB Date of Service: 02/04/25 Copies to: MD Roshan Ballard MD FACS Michael Holley MD~ Assessment & Plan (1) Breast cancer, left: Plan: CT simulation-DIBH for cardiac sparing, postmastectomy radiation 42.5 Fraser in 16fractions delivereddaily Assessment: 64-year-old female with [id number] invasive ductal carcinoma of the left breast, ER/TX positive HER2 negative. She is status post mastectomy in May 2024 with final pathology showing invasive ductal carcinoma with mucinous features, grade 2, 1.4 cm in greatest dimension. DCIS low nuclear grade. LVSI present. Focal invasive carcinoma present within 1 mm from the inked inferior margin. Resection margins negative for DCIS, closest is 5 mm. Skin and nipple uninvolved by DCIS or invasive carcinoma. [place] lymph node biopsy showed 3 of 8 lymph nodes positive with extranodal extension Patient has completed dose dense AC plus Taxol and presents to discuss postmastectomy radiation. I recommend postmastectomy radiation 42.5 Fraser in 16 fractions delivered daily. I provided a general overview of radiation treatmentplanning and delivery. We discussed the need for immobilization and CT simulation. Short and long-term side effects were reviewed in detail and her questions were answered. She was consented to receive care. History of Present Illness HPI 63-yo F presented with left intermittent nipple discharge with possible fistulafrom the left breastbut no nipple bleeding for several months. June 29, 2023 patient underwent an ultrasound-guided biopsy of a complex cystlocated at 6:00 in the left breast showing fragments of fibrovascular adipose tissue with no pathologic diagnosis. January 11, 2024 biopsy? excisional? lumpectomy at 7:00 in the left breast pathologyconfirmed invasive ductal carcinoma, 1.7 cm, grade 2. Tumor present at the superior surgical margin. Tumor less than 1 mm from the anterior and lateral surgical margins. Negative for LVSI. ER/TX positive, HER2 negative. Final pathology pT1c NX February 2024 Oncotype returned 09 May 2024 left breast skin-sparing mastectomy confirmed invasive ductal carcinoma with mucinous features, grade 2, 1.4 cm in greatest dimension. DCIS low nuclear grade. LVSI present. Focal invasive carcinoma present within 1 mm from the inked inferior margin. Resection margins negative for DCIS, closest is5 mm. Skin and nipple uninvolved by DCIS or invasive carcinoma. [place] lymphnode biopsy showed 3 of 8 lymph nodes positive with extranodal extension pT1c N1a [employer] testing returned negative Patient was initiated on dose dense AC followed by Taxol under the care of medical oncology. PCP started her on Cymbalta in addition to gabapentin for neuropathy. PMH generalized anxiety disorder, ADHD, complex regional pain syndrome of the lower extremity, essential tremor, hypertension and osteoarthritis to has idiopathic polyneuropathy and scoliosis with history of intermittent marijuana use as needed for pain Today patient reports fatigue from the chemotherapy. Feels she has recovered well from the surgery. Intake Vitals/Pain Assessment 02/04/25 11:04 Height 5 ft 7 in Weight 54.431 kg BMI 18.8 Body Fat % 31.69 BP 150/102 H Blood Pressure Location Rt brachial Position Sitting Pulse 92 Pulse Source NIBP Respiration 18 Pulse Oximetry (%) 99 Oxygen Delivery Method room air Are you having pain? No Intake Visit Reasons: New Patient, Breast Cancer Allergies Corticosteroids (Glucocorticoids) Allergy (Verified 02/04/25 11:06) Unknown Reaction metaxalone (From Skelaxin) Allergy (Verified 02/04/25 11:06) Unknown Reaction entex Allergy (Uncoded 02/04/25 11:06) Unknown Reaction Home Medications - Last Reconciled 02/04/25 by Jen Ramirez, RMA alendronate (Fosamax) 70 mg PO QWEEK alprazolam 0.25 mg PO TID PRN aspirin 81 mg PO DAILY cyclobenzaprine 10 mg PO HS PRN duloxetine 60 mg PO DAILY 30 days fluticasone propionate 50 mcg/actuation 1 spray intranasal BID furosemide (Lasix) 20 mg PO DAILY gabapentin 300 mg PO TID letrozole (Femara) 2.5 mg PO DAILY loratadine (Claritin) 10 mg PO DAILY losartan 25 mg PO DAILY metoprolol succinate ER 50 mg PO DAILY naloxone 4 mg/actuation 4 mg intranasal Q2-3M PRN ondansetron 8 mg PO Q8HR PRN oxycodone-acetaminophen 10-325 mg 1 tab PO Q4-6H PRN 30 days pantoprazole 20 mg PO DAILY potassium chloride ER (Klor-Con M) 20 mEq PO DAILY prochlorperazine maleate (Compazine) 10 mg PO Q6HR PRN Gastrointestinal Is the patient taking opioids for pain control?: No Bowel Protocol for Opioids Given: No Bowel Pattern: Regular Bowel Movement Aid(s): None Falls Fall Precaution Measures Taken: Patient in chair [facility] Medical History Medical History Breast cancer, left Immunosuppressed due to chemotherapy Pneumonia Bacteremia due to Streptococcus pneumoniae Acute anemia Pancytopenia UTI (urinary tract infection) Pneumonia Osteopenia Encounter for screening for osteoporosis Hypertension Surgical History Surgical History History of knee surgery bilateral History of lumpectomy of left breast History of cholecystectomy History of appendectomy History of hysterectomy History of foot surgery multiple bilateral Family History Family History Family/Other Breast cancer Social History Social History Smoking status: Former smoker What tobacco products do you use: cigarettes Smoking quit date/years:>15 years ago Within the past year, how often did you have a drink containing alcohol: monthly or less In the past 12 months, have you used illegal drugs or prescription drugs for non-medical reasons?: No Physical Exam EXAM Physical exam: KPS 90 General: Alert and oriented, no acute distress. HEENT: Normocephalic, extraocular movements intact Chest: Normal work of breathing on room air Breast: Treated breast shows surgical incision well-healed. No palpable mass orabnormality. Contralateral breast within normal limits. Lymph: No palpable cervical, supraclavicular, axillary lymphadenopathy Abdomen: Nonacute MSK: Extremities within normal limits [facility] - [facility] ([facility]c) LAB RESULTS Glucose 101 mg/dL (70-100) H 12/31/24 14:20 12/31/24 BUN 18 mg/dL (7-25) 12/31/24 14:20 12/31/24 Creatinine 0.99 mg/dL (0.60-1.20) 12/31/24 14:20 12/31/24 Est GFR (CKD-EPI) > 60.0 mL/Min 12/31/24 14:20 12/31/24 Sodium 139 mmol/L (136-145) 12/31/24 14:20 12/31/24 Potassium 4.0 mmol/L (3.5-5.1) 12/31/24 14:20 12/31/24 Chloride 101 mmol/L (98-107) 12/31/24 14:20 12/31/24 Carbon Dioxide 30.4 mmol/L (21.0-31.0) 12/31/24 14:20 5 Anion Gap 11.6 mEq/L (6.0-15.0) 12/31/24 14:20 12/31/24 Calcium 9.9 mg/dL (8.6-10.3) 12/31/24 14:20 12/31/24 Total Protein 6.6 gm/dL (6.4-8.9) 12/31/24 14:20 12/31/24 Albumin 4.0 gm/dL (3.5-5.7) 12/31/24 14:20 12/31/24 Globulin 2.6 gm/dL 12/31/24 14:20 12/31/24 Albumin/Globulin Ratio 1.5 12/31/24 14:20 12/31/24 Total Bilirubin 0.4 mg/dl (0.3-1.0) 12/31/24 14:20 12/31/24 AST 21 U/L (13-39) 12/31/24 14:20 12/31/24 ALT 12 U/L (7-52) 12/31/24 14:20 12/31/24 Alkaline Phosphatase 50 U/L (34-104) 12/31/24 14:20 12/31/24 Social Determinants of Health Screening SDOH last assessed in clinic: 02/04/25 Will the patient participate in the screening?: Yes Do you worry about having a steady place to live?: No In the past 12 months, have you had to go without electric, gas, oil, or water in your home?: No Have you or anyone in your house had to go without enough food to eat?: No Has lack of reliable transportation kept you from medical appointments or from doing things needed for daily living?: No Has anyone in your support network made you feel unsafe for any reason?: No Does the patient want assistance with any of the above?: No Dictated By: Linnette Elizabeth MD DD/ Signed By: 02/04/25 1130 [facility] [place]04-30-2025 Progress note Author Elda Hurtado [facility] [place]Note Date/TimeApril 2024 1:20pm[place] [address] Palliative Medicine Encounter Patient: Adelina Mir MR#: [id number] : 1960 Acct:[id number] Age/Sex: 64 / F Copies to: SOLA Wilcox MD~ HPI Date of Visit Date of Visit: 01/01/2025 Chief Complaint: Alannah is here for follow up t time of chemo. She was to continue Duloxetine 30 mg daily, Gabapentin 300 mg TID and Percocet 10/325 mg every 4-6 hours at last office visit HPI: Alannah is seen and examined; interim period and pertinent symptoms reviewed below and detailed in ESAS: Today is last chemo!! Persistent pedal edema, experiencing increased neuropathy Vomited yesterday but typically does not have N/V Very fatigued, sleeps a lot Intake Allergies Corticosteroids (Glucocorticoids) Allergy (Verified 01/01/25 09:44) Unknown Reaction metaxalone (From Skelaxin) Allergy (Verified 01/01/25 09:44) Unknown Reaction entex Allergy (Uncoded 01/01/25 09:44) Unknown Reaction Home Medications ?Medication ?Instructions ?Recorded ?Confirmed alprazolam 0.25 mg tablet 0.25 mg PO TID PRN anxiety 02/08/24 01/01/25 aspirin 81 mg tablet,delayed 81 mg PO DAILY 02/08/24 01/01/25 release cyclobenzaprine 10 mg tablet 10 mg PO HS PRN muscle spasm 02/08/24 01/01/25 gabapentin 300 mg capsule 300 mg PO TID 02/08/24 01/01/25 ondansetron 8 mg disintegrating 8 mg PO Q8HR PRN nausea and 05/30/24 01/01/25 tablet vomiting #30 tabs prochlorperazine maleate 10 mg 10 mg PO Q6HR PRN nausea and 05/30/24 01/01/25 tablet (Compazine) vomiting #30 tabs naloxone 4 mg/actuation nasal spray 4 mg intranasal Q2-3M PRN opioid 08/22/24 01/01/25 overdose #2 ea fluticasone propionate 50 1 spray intranasal BID 09/17/24 01/01/25 mcg/actuation nasal spray,suspension losartan 25 mg tablet 25 mg PO DAILY #30 tabs 09/25/24 01/01/25 metoprolol succinate 50 mg 50 mg PO DAILY #30 tabs 09/25/24 01/01/25 tablet,extended release 24 hr furosemide 20 mg tablet (Lasix) 20 mg PO DAILY #30 tabs 12/11/24 01/01/25 potassium chloride 20 mEq 20 meq PO DAILY #30 tabs 12/11/24 01/01/25 tablet,extended release(part/cryst) (Klor-Con M) oxycodone-acetaminophen 10 mg-325 1 tab PO Q4-6H PRN pain 30 days 12/19/24 01/01/25 mg tablet #150 tabs alendronate 70 mg tablet (Fosamax) 70 mg PO QWEEK #12 tabs 01/01/25 01/01/25 duloxetine 60 mg capsule,delayed 60 mg PO DAILY 30 days #30 caps 01/01/25 release letrozole 2.5 mg tablet (Femara) 2.5 mg PO DAILY #90 tabs 01/01/25 01/01/25 loratadine 10 mg tablet (Claritin) 10 mg PO DAILY 01/01/25 01/01/25 pantoprazole 20 mg tablet,delayed 20 mg PO DAILY #20 tabs 01/01/25 01/01/25 release Is patient having pain?: Yes PMFSH Medical History Breast cancer, left Immunosuppressed due to chemotherapy Pneumonia Bacteremia due to Streptococcus pneumoniae Acute anemia Pancytopenia UTI (urinary tract infection) Pneumonia Osteopenia Encounter for screening for osteoporosis Hypertension Surgical History History of knee surgery bilateral History of lumpectomy of left breast History of cholecystectomy History of appendectomy History of hysterectomy History of foot surgery multiple bilateral Family History Family/Other Breast cancer Social History Smoking Status: Former smoker Tobacco Type: cigarettes Substance Use Type: Prescribed and Marijuana Substance Abuse Comment: marijuana medical [place] Symptom Assessment Scale Pain: c/o increased neuropathy bilateral feet Nausea/Vomiting: mild nausea with only several reported episodes, intermittent vomiting using Zofran PRN only Anorexia: fair appetite / working on eating better Dyspnea: denies Constipation/Diarrhea: stable Drowsiness: denies Fatigue: moderate / resting often Insomnia: denies Depression/Mood: stable Anxiety: stable Exam Exam General - A&O, accompanied by daughter HEENT - EOM intact, oral mucosa pink/moist Lungs - normal respiratory effort with conversation Abdomen - soft, non-distended Extremities - normal ROM, bilateral pedal edema Psychiatric - pleasant, cooperative, normal mood/affect Assessment & Plan Assessment & Plan (1) Neuropathy: Plan: As Alannah completes her 12 cycle of weekly Taxol, she reports increased severity of peripheral neuropathy. She is agreeable to dose titration of duloxetine. OARRS reviewed, consistent with Rx. OME 60 mg/day Continue duloxetine increasing dose to 60 mg daily Continue Gabapentin 300 mg BID TID without change Continue Percocet 10-325 q4-6h PRN Recheck during course of radiation therapy (2) Breast cancer, left: Qualifiers: Breast location: unspecified site of breast Estrogen receptor status: positive Patient sex: female Qualified Code(s): C50.912 - Malignant neoplasm ofunspecified site of left female breast; Z17.0 - Estrogen receptor positive status [ER+] Plan: Completes 12th cycle of weekly Taxol today and will begin adjuvant radiation therapy in early February Attestation: The above note written by Kimberly Carnes MA acting as human recorder, note dictated by Elda Hurtado APRN, STOCK HANDLER FLOORPERSONdAanC ACHPN Dictated By: Elda Hurtado APRN DD/ 1058 Signed By: <Electronically signed by SOLA Hurtado> 01/01/25 1320 [facility] Work Phone: 1(348) 573-862804-30-2025 [place] [address] Palliative Medicine Encounter Patient: Adelina Mir MR#: [id number] : 1960 Acct:[id number] Age/Sex: 64 / F Copies to: SOLA Wilcox MD~ HPI Date of Visit Date of Visit: 01/01/2025 Chief Complaint: Alannah is here for follow up t time of chemo. She was to continue Duloxetine 30 mg daily, Gabapentin 300 mg TID and Percocet 10/325 mg every 4-6 hours at last office visit HPI: Alannah is seen and examined; interim period and pertinent symptoms reviewed below and detailed in ESAS: Today is last chemo!! Persistent pedal edema, experiencing increased neuropathy Vomited yesterday but typically does not have N/V Very fatigued, sleeps a lot Intake Allergies Corticosteroids (Glucocorticoids) Allergy (Verified 01/01/25 09:44) Unknown Reaction metaxalone (From Skelaxin) Allergy (Verified 01/01/25 09:44) Unknown Reaction entex Allergy (Uncoded 01/01/25 09:44) Unknown Reaction Home Medications ?Medication ?Instructions ?Recorded ?Confirmed alprazolam 0.25 mg tablet 0.25 mg PO TID PRN anxiety 02/08/24 01/01/25 aspirin 81 mg tablet,delayed 81 mg PO DAILY 02/08/24 01/01/25 release cyclobenzaprine 10 mg tablet 10 mg PO HS PRN muscle spasm 02/08/24 01/01/25 gabapentin 300 mg capsule 300 mg PO TID 02/08/24 01/01/25 ondansetron 8 mg disintegrating 8 mg PO Q8HR PRN nausea and 05/30/24 01/01/25 tablet vomiting #30 tabs prochlorperazine maleate 10 mg 10 mg PO Q6HR PRN nausea and 05/30/24 01/01/25 tablet (Compazine) vomiting #30 tabs naloxone 4 mg/actuation nasal spray 4 mg intranasal Q2-3M PRN opioid 08/22/24 01/01/25 overdose #2 ea fluticasone propionate 50 1 spray intranasal BID 09/17/24 01/01/25 mcg/actuation nasal spray,suspension losartan 25 mg tablet 25 mg PO DAILY #30 tabs 09/25/24 01/01/25 metoprolol succinate 50 mg 50 mg PO DAILY #30 tabs 09/25/24 01/01/25 tablet,extended release 24 hr furosemide 20 mg tablet (Lasix) 20 mg PO DAILY #30 tabs 12/11/24 01/01/25 potassium chloride 20 mEq 20 meq PO DAILY #30 tabs 12/11/24 01/01/25 tablet,extended release(part/cryst) (Klor-Con M) oxycodone-acetaminophen 10 mg-325 1 tab PO Q4-6H PRN pain 30 days 12/19/24 01/01/25 mg tablet #150 tabs alendronate 70 mg tablet (Fosamax) 70 mg PO QWEEK #12 tabs 01/01/25 01/01/25 duloxetine 60 mg capsule,delayed 60 mg PO DAILY 30 days #30 caps 01/01/25 release letrozole 2.5 mg tablet (Femara) 2.5 mg PO DAILY #90 tabs 01/01/25 01/01/25 loratadine 10 mg tablet (Claritin) 10 mg PO DAILY 01/01/25 01/01/25 pantoprazole 20 mg tablet,delayed 20 mg PO DAILY #20 tabs 01/01/25 01/01/25 release Is patient having pain?: Yes PMFSH Medical History Breast cancer, left Immunosuppressed due to chemotherapy Pneumonia Bacteremia due to Streptococcus pneumoniae Acute anemia Pancytopenia UTI (urinary tract infection) Pneumonia Osteopenia Encounter for screening for osteoporosis Hypertension Surgical History History of knee surgery bilateral History of lumpectomy of left breast History of cholecystectomy History of appendectomy History of hysterectomy History of foot surgery multiple bilateral Family History Family/Other Breast cancer Social History Smoking Status: Former smoker Tobacco Type: cigarettes Substance Use Type: Prescribed and Marijuana Substance Abuse Comment: marijuana medical [place] Symptom Assessment Scale Pain: c/o increased neuropathy bilateral feet Nausea/Vomiting: mild nausea with only several reported episodes, intermittent vomiting using Zofran PRN only Anorexia: fair appetite / working on eating better Dyspnea: denies Constipation/Diarrhea: stable Drowsiness: denies Fatigue: moderate / resting often Insomnia: denies Depression/Mood: stable Anxiety: stable Exam Exam General - A&O, accompanied by daughter HEENT - EOM intact, oral mucosa pink/moist Lungs - normal respiratory effort with conversation Abdomen - soft, non-distended Extremities - normal ROM, bilateral pedal edema Psychiatric - pleasant, cooperative, normal mood/affect Assessment & Plan Assessment & Plan (1) Neuropathy: Plan: As Alannah completes her 12 cycle of weekly Taxol, she reports increased severity of peripheral neuropathy. She is agreeable to dose titration of duloxetine. OARRS reviewed, consistent with Rx. OME 60 mg/day Continue duloxetine increasing dose to 60 mg daily Continue Gabapentin 300 mg BID TID without change Continue Percocet 10-325 q4-6h PRN Recheck during course of radiation therapy (2) Breast cancer, left: Qualifiers: Breast location: unspecified site of breast Estrogen receptor status: positive Patient sex: female Qualified Code(s): C50.912 - Malignant neoplasm ofunspecified site of left female breast; Z17.0 - Estrogen receptor positive status [ER+] Plan: Completes 12th cycle of weekly Taxol today and will begin adjuvant radiation therapy in early February Attestation: The above note written by Kimberly Carnes MA acting as human recorder, note dictated by Elda Hurtado APRN, [employer] HAND[employer]PERSON-C ACHPN Dictated By: Elda Hurtado APRN DD/ 1058 Signed By: 01/01/25 1320 [facility] [place]04-30-2025 Evaluation note* Diagnosis Onset Date Resolution Status Admit Date Breast cancer, left acuteApril 2024 8:21amNeuropathyacuteApril 2024 8:21amBreast cancer, leftacuteApril 2024 9:37amOsteopeniainactiveApril 2024 9:37amBreast cancer, leftacuteJune 2024 10:59amBreast cancer, leftacuteJune 2024 10:46amNeuropathyacuteJune 2024 10:46am [facility] Work Phone: 1(929) 833-376704-30-2025 [facility] [place] [address] Cancer Center Note Signed Patient: Adelina Mir MR#: [id number] : 1960 Acct:[id number] Age/Sex: 64 / F Type: REG AMB Date of Service: 01/01/25 Copies to: Michael Holley MD~ Assessment & Plan A/P (1) Breast cancer, left: (2) Osteopenia: Plan Based on the biopsy done on 01/10/2024 it reveals pT1c, pNX, ER positive, TX positive, HER2/pat negative (1+), no DCIS, tumor size of the invasive ductal carcinoma is 1.7 cm at least with positive superior margin and no lymphovascularinvasion detected. No lymph nodes included in the biopsy. Patient was referredfor further surgical resection with bilateral mastectomy by Dr. Braun and Dr. Bustamante forreconstructive surgery. - Inv[employer]ae gene testing done 03/01/24 was negative. -Bone density scan done on 02/15/2024 revealed osteopenia with a T-score of -1.4 in the left femoralneck. - Oncotype Dx score was done on the biopsy tissue based on unknown gwen statusat that time revealed: - If she is node-negative: Recurrence score of 5 with distant recurrence risk at 9 years of 3% withendocrine therapy alone with less than 1% benefit from the chemo. - If Node positive and premenopausal: Recurrence score will be 5 with distantrecurrence risk at 5 years 3% with her medicine better or endocrine therapy alone and chemo benefit 2.3%. -If she is postmenopausal and node positive the recurrence score is 5 with distant recurrence risk at 5 years with AI or tamoxifen alone is 1% and chemo benefit no apparent benefit noticed as it is less than 1% only. -If she has node positive of 4 or more lymph nodes then recurrence score is 5% and the distant recurrence at 9 years is 35% with AI and tamoxifen alone. -She underwent left breast mastectomy with sentinel node biopsy 05/16/2024, skin sparing with immediate reconstruction with tissue litharge supervisor by Dr. Bustamante. Surgical path from surgery done on 05/16/2024 revealed: A. Left axillary sentinel lymph node 1 out of 2 lymph nodes positive for metastatic carcinoma with mucinous features with extranodal extension again and 1 out of 2 lymph nodes. B. Lymph nodes in the left axillary sentinel lymph node 2 of 6 lymph nodes positive for metastatic carcinoma with mucinous features with extranodal extension. Left breast mastectomy revealed invasive ductal carcinoma with mucinous featuresgrade 2, 1.4 cm in greatest dimension. Ductal carcinoma in situ low-grade cribriform Lymphovascular invasion present Focal invasive carcinoma is present within 1 mm from inked inferior margin. Resection margins negative for DCIS with 5 mm from closest deep margin. Fibrocystic changes characterized by apocrine metaplasia and usual ductal hyperplasia with adenosisand microcalcification. Skin and nipple uninvolved by DCIS or invasive cancer Stage IIA, TNM stage is pT1c, pN1a. Number of lymph nodes with macrometastasis 3 and number of lymph nodes with isolated tumor cells 0 and number of lymph nodes with micrometastasis 0. Extranodal extension is present. ER positive over 90%, TX +80%, HER2 negative (1+), Ki-67 3% Treatment plan: After discussing the above findings from the surgical path with her and considering that she has extranodal extension of 3 out of 6 lymph nodes and lymphovascular invasion positive with 1.4 cm tumor that is grade 2, I recommended adjuvant chemo using dose dense AC followed by T followed by adjuvantradiation followed by adjuvant endocrine therapy. She agreed and signed the consent. Side effects were discussed with patient. 07/31/24: She is here for 1 week toxicity check [facility] She tolerated C1 without any complaints but has same postnasal drainage for more than 4 weeks evenbefore chemo without sore throat or fevers. She tried Benadryl and can not take steroids due to allergy to steroids. She is scheduled for cycle 2 on 08/08/2024. Labs on 07/30/2024 revealed normal CBC with normal WBC of 5.7 normal ANC of 4.2 and unremarkable CMP. - Proceeded with cycle 2 of dose dense AC on 08/08/2024. 08/21/24: She is here for evaluation prior to her C3 of the adjuvant ddAC scheduled on 08/22/24. She had mildfatigue and had nausea for 6 days after cycle 2 of dose dense AC but not vomiting and no chest painor shortness of breath or leg edema or abdominal pain or diarrhea. She has chronic peripheral neuropathy even before chemotherapy. No fevers or current infections. Her Zofran she took daily for 6 days after cycle 2 helped her nausea. PLAN: Proceed with C3 ddAC on 08/21/24 if labs meets criteria for chemo. Continue using calcium 500 mg twice daily and vitamin D 2000 unit daily for her mild osteopenia. Next DEXA scan is in 02/2026. I asked her to take her Zofran daily for the first week after each dose dense ACgiven. Weekly CBCs and CMP. Try pepcid and Zyrtec for postnasal drainage. Returns in 2 weeks for cycle 4 of dose dense AC. After she completes 4 cycles of ddAC she then can start weekly taxol 2 weeks after C4 of AC. 09/03/24: She continues to do fairly well with treatment and will receive cycle 4 ddAC this week. Her labs remain okay for continued treatment. She will follow-up in2 weeks with Dr. Bales with plans of starting her weekly Taxol at that visit as well. 09/17/24: Patient sent to ED for worsening symptoms, will likely hold off on initiation of Taxol this week given acute concerns. 09/19/24: She is admitted with a hemoglobin of 5.6 and found to have pneumonia as well as UTI during this admission evaluation with urine culture and was transfused 2 units of packed RBC and brought her hemoglobin up to 7.7 on 09/19/2024. Her platelet on admission on 09/17/2024 was 24K on 09/17/24 and they are 38K on 09/19/24 without evidence or signs of clinical bleeding. - Medical oncology was consulted for further recommendation regarding her anemia, thrombocytopenia and left breast cancer treatment considering that she missed her week 1 of the weekly Taxol scheduled on 09/18/24. Clinically she denied any melena or rectal bleeding or gross hematuria. She denies any hemoptysis however she has some right lower chest discomfort and cough likely from her pneumonia. She has some burning with her urination as well. 10/03/24: She is here for 2 weeks follow up after hospital admission for pneumonia, UTI, severe anemia and thrombocytopenia with hgb 5.6 and plt 24K (see above). Labs on 10/03/2024 revealed hemoglobin increased to 8.9 WBC is 9.8 and a plateletcount of is back tonormal 321. CMP are normal. She is here to resume her adjuvant chemo as she was supposed to start her week 1of adjuvant weekly Taxol prior to her recent admission. - She did not start her week1 of the weekly Taxol on 10/09/24 because of generalized weakness. 10/16/24: Patient is here for to start week1 of the weekly Taxol. No new complaints. Labs on 10/15/2024 revealed stable anemia hemoglobin 8.1 with normal WBC and platelet count and normal creatinine and LFTs. - Started weekly Taxol on 10/16/24. 10/30/24: Patient is here for week 3 of her adjuvant weekly Taxol out of the planned 12 weeks for her left breast cancer. No new complaints. No bleeding. no new masses or enlarged LNs. Labs on 10/29/2024 revealed stable anemia hemoglobin 8.9 with platelet 145 slightly lower than before and normal WBC and ANC. CMP is unremarkable. Iron studies revealed normal iron 81 with TIBC 321 normal iron saturation 25 and ferritin of 459 hide. She was given Cymbalta by Palliative for her neuropathy and it helped a lot. 12/11/24: Patient is here for week 9 of her adjuvant weekly Taxol. She is tolerating it well without changes on her neuropathy however she complains of distal painful swelling of both feet specially the left foot since September 2024 hospital admission. The swelling improved last week after 1 dose of Lasix given IV during the infusion treatment. She denied any fevers. She has slight erythema that has been stable since September 2024 the left foot. Once again no fever and no chills.. Labs are unremarkable except for mild stable anemia hgb 10.6. - I rechecked her blood pressure it came back 190/98 by my reading and it was 205/90 and by the midlevel during the triage. 01/01/25: She is here for week 12 of her weekly Taxol. She is tolerating it well with stable neuropathy. She is scheduled to start her adjuvant radiation on 02/04/25. her PCP started her on Cymbalta in addition to her gabapentin for her neuropathyof the feet which is helping a lot. The swelling n the left foot is same as before and did not improve on Lasix. Thus stop lasix and klor con and tray Ibuprofen 400 mg bid with food for 7-10 days with use of pantoprazole 40 mg daily for 2 weeks. PLAN: Proceed with week 12 Taxol today. her PCP started her on Cymbalta in addition to her gabapentin for her neuropathyof the feet which is helping a lot. The swelling n the left foot is same as before and did not improve on Lasix. Thus stop lasix and klor con and tray Ibuprofen 400 mg bid with food for 7-10 days with use of pantoprazole 40 mg daily for 2 weeks. Continue B1/B6/B12 50/50/500 mg for neuropathy history. Continue Cymbalta for neuropathy as it helped a lot. Continue calcium and vit D for osteopenia. Start Fosamax 70 mg once a week for her osteopenia seen on DEXA in 03/2024. proceed with adjuvant radiation as scheduled on 02/04/25. After she finished adjuvant radiation she is to start adjuvant endocrine therapywith Femara 2.5 mg once daily. RTC in 10 weeks with LFTs prior. / / Patient Instructions: Left foot xray will start femara after XRT see 6 weeks after start of femara with cmp start fosamax stop lasix and K+ CHEMO PLAN Treatment Plan Paclitaxel 80mg/m2 Weekly x 4 weeks Clinical Indication No Indication Cycle Number Last Admin 3 of 3 Completed Cycle Day Next Admin No Active Chemotherapy History of Present Illness SHAE Sahu is a 63-year-old nice lady with history of generalized anxiety disorder, ADHD, complex regional pain syndrome of the lower extremity, essential tremor, hypertension and osteoarthritis to has idiopathic polyneuropathy and scoliosis with history of intermittent marijuana use as needed for paincontrol who was referred to our medical oncology clinic by Dr. Braun for new findings of new leftbreast invasive ductal carcinoma grade 2, ER positive, TX positive, HER2/pat negative 1+, 1.7 cm at least invasive ductal carcinoma, negative for lymphovascular invasion, positive superior margin of the invasive cancer, no DCIS presents and no lymph nodes were obtained as per the biopsy done on 01/10/2024. Patient has been having intermittent nipple discharge with possible fistula from the left breast but no nipple bleeding for several months. She hadBI-RADS 3 screening mammogram in April 2023 whichwas followed by ultrasound patient underwent initial biopsy of the suspicious left breast lesion on 07/12/2023 however results of the path of that biopsy was consistent with fibrovascular adipose tissue with no pathology present. Patient continues to have nipple discharge and Dr. Braun plan to do a lumpectomy however because of cardiac workup and clearance needed another biopsy was done on left breast underultrasound guidance and it came back also inconclusive in November 2023 which led to excisional biopsy performed on 01/10/2024. The path results of that excisionalbiopsy done on 01/10/2024 is as follows: Pathological Diagnosis 01/10/2024: Mass, left breast, 7:00, lumpectomy: Invasive ductal carcinoma. Tumor Is 1.7 Cm In Greatest Dimension. Grade 2/ Moderately Differentiated. Tumor is present at the superior surgical margin. Tumor Is less than 0.1 Cm From The anterior and lateral surgical Margins. No Evidence Of Lymphovascular Invasion. Breast Hormone Profile ER: Positive TX: Positive HER2/pat by immunostain: Negative (1+) CAP CANCER CASE SUMMARY SPECIMEN Procedure: Excision [...] (when applicable) pM categories is based on informationavailable to the pathologist at the time the report is issued. As per the AJCC (Chapter 1, 8th Ed.) it is the managing physician's responsibility to establish the final pathologic stage based upon all pertinent information, including but potentially not limited to this pathology report. pT Category: pT1c pN Category: pNx Patient denies any family history of ovarian cancer however she has a cousin with breast cancer. She has a sister with multiple lumps under her breast but there were not cancerous. No known family history of ovarian cancer however joseph had mesothelioma. She does not know her father side because she does not know her biological father. 05/30/24: She is here for further planning of care after her left breast mastectomy and for results of the DEXA scan and Oncotype DX. Patient was sent to Dr. Bustamante for reconstructive breast surgeries as she is electing to go for bilateral mastectomy. She was also sent to our medical oncology clinic for recommendation regarding management of her new left breast cancer that is ER positive TX positive and HER2/pat negative but nolymph nodes were obtained as of this initial consult done on 02/08/2024. Surgery date yet to be determined [address] BRAUN. - [facility] gene testing done 03/01/24 was negative. -Bone density scan done on 02/15/2024 revealed osteopenia with a T-score of -1.4 in the left femoralneck. - Oncotype Dx score was done on the biopsy tissue based on unknown gwen statusat that time revealed: - If she is node-negative: Recurrence score of 5 with distant recurrence risk at 9 years of 3% withendocrine therapy alone with less than 1% benefit from the chemo. - If Node positive and premenopausal: Recurrence score will be 5 with distantrecurrence risk at 5 years 3% with her medicine better or endocrine therapy alone and chemo benefit 2.3%. -If she is postmenopausal and node positive the recurrence score is 5 with distant recurrence risk at 5 years with AI or tamoxifen alone is 1% and chemo benefit no apparent benefit noticed as it is less than 1% only. -If she has node positive of 4 or more lymph nodes then recurrence score is 5% and the distant recurrence at 9 years is 35% with AI and tamoxifen alone. -She underwent left breast mastectomy with sentinel node biopsy 05/16/2024, skin sparing with immediate reconstruction with tissue litharge supervisor by Dr. Bustamante. Surgical path from surgery done on 05/16/2024 revealed: A. Left axillary sentinel lymph node 1 out of 2 lymph nodes positive for metastatic carcinoma with mucinous features with extranodal extension again and 1 out of 2 lymph nodes. B. Lymph nodes in the left axillary sentinel lymph node 2 of 6 lymph nodes positive for metastatic carcinoma with mucinous features with extranodal extension. Left breast mastectomy revealed invasive ductal carcinoma with mucinous featuresgrade 2, 1.4 cm in greatest dimension. Ductal carcinoma in situ low-grade cribriform Lymphovascular invasion present Focal invasive carcinoma is present within 1 mm from inked inferior margin. Resection margins negative for DCIS with 5 mm from closest deep margin. Fibrocystic changes characterized by apocrine metaplasia and usual ductal hyperplasia with adenosisand microcalcification. Skin and nipple uninvolved by DCIS or invasive cancer Stage IIA, TNM stage is pT1c, pN1a. Number of lymph nodes with macrometastasis 3 and number of lymph nodes with isolated tumor cells 0 and number of lymph nodes with micrometastasis 0. Extranodal extension is present. ER positive over 90%, TX +80%, HER2 negative (1+), Ki-67 3% 07/31/24: She is here for 1 week toxicity check after cycle 1 of dose dense AC obtained [facility] on 07/24/2024. She tolerated C1 without any complaints but has same postnasal drainage for more than 4 weeks evenbefore chemo without sore throat orfevers. She tried Benadryl and can not take steroids due to allergy to steroids. She is scheduled for cycle 2 on 08/08/2024. Labs on 07/30/2024 revealed normal CBC with normal WBC of 5.7 normal ANC of 4.2 and unremarkable CMP. 08/21/24: She is here for evaluation prior to her C3 of the adjuvant ddAC scheduled on 08/22/24. She had mildfatigue and had nausea for 6 days after cycle 2 of dose dense AC but not vomiting and no chest painor shortness of breath or leg edema or abdominal pain or diarrhea. She has chronic peripheral neuropathy even before chemotherapy. No fevers or current infections. Her Zofran she took daily for 6 days after cycle 2 helped her nausea. 14 point review of systems was obtained and was negative. 09/03/24: She presents for cycle 4 ddAC. She continues with fatigue and dyspnea if she exerts herself, otherwise no chest pain or shortness of breath at rest. No change in her neuropathy with treatment. Her nausea has better controlled now that she is taking her antiemetics regularly. She is eating and drinking ok anddenies vomiting, diarrhea, or constipation. She denies other new concerns as well. Her labs remain okay for continued treatment. 09/17/24: She presents to clinic as an add-on for worsening symptoms. Her daughter is concerned that she has pneumonia as she has been having shortness of breath and not eating much at all. Vitals today note significant hypotension and decreasedheart rate. Her oxygen levels on arrival dropped between 70s/80sand she was placed on supplemental oxygen, up to 6 L in office before her sats improved intothe 90s. She has attempted to give a urine sample as she has concern for UTI aswell, however was not able to go. Given acute symptoms, we have decided to sendher to the ED for further evaluation. 09/19/24: She is admitted with a hemoglobin of 5.6 and found to have pneumonia as well as UTI during this admission evaluation with urine culture and was transfused 2 units of packed RBC and brought her hemoglobin up to 7.7 on 09/19/2024. Her platelet on admission on 09/17/2024 was 24K on 09/17/24 and they are 38K on 09/19/24without evidence or signs of clinical bleeding. - Medical oncology was consulted for further recommendation regarding her anemia, thrombocytopenia and left breast cancer treatment considering that she missed her week 1 of the weekly Taxol scheduled on 09/18/24. Clinically she denied any melena or rectal bleeding or gross hematuria. She denies any hemoptysis however she has some right lower chest discomfort and cough likely from her pneumonia. She has some burning with her urination as well. 10/03/24: She is here for 2 weeks follow up after hospital admission for pneumonia, UTI, severe anemia and thrombocytopenia with hgb 5.6 and plt 24K (see above). Labs on 10/03/2024 revealed hemoglobin increased to 8.9 WBC is 9.8 and a plateletcount of is back tonormal 321. CMP are normal. She is here to resume her adjuvant chemo as she was supposed to start her week 1of adjuvant weekly Taxol prior to her recent admission. She feels much better. No more SOB and no CP or bleeding from any source. 10/16/24: Patient is here for to start week1 of the weekly Taxol. No new complaints. Labs on 10/15/2024 revealed stable anemia hemoglobin 8.1 with normal WBC and platelet count and normal creatinine and LFTs. 10/30/24: Patient is here for week 3 of her adjuvant weekly Taxol out of the planned 12 weeks for her left breast cancer. No new complaints. No bleeding. no new masses or enlarged LNs. Labs on 10/29/2024 revealed stable anemia hemoglobin 8.9 with platelet 145 slightly lower than before and normal WBC and ANC. CMP is unremarkable. Iron studies revealed normal iron 81 with TIBC 321 normal iron saturation 25 and ferritin of 459 hide. She was given Cymbalta by Palliative for her neuropathy and it helped a lot. 12/11/24: Patient is here for week 9 of her adjuvant weekly Taxol. She is tolerating it well without changes on her neuropathy however she complains of distal painful swelling of both feet specially the left foot since September 2024 hospital admission. The swelling improved last week after 1 dose of Lasix given IV during the infusion treatment. She denied any fevers. She has slight erythema that has been stable since September 2024 the left foot. Once again no fever and no chills.. Labs are unremarkable except for mild stable anemia hgb 10.6. - I rechecked her blood pressure it came back 190/98 by my reading and it was 205/90 and by the midlevel during the triage. 01/01/25: She is here for week 12 of her weekly Taxol. She is tolerating it well with stable neuropathy. She is scheduled to start her adjuvant radiation on 02/04/25. her PCP started her on Cymbalta in addition to her gabapentin for her neuropathyof the feet which is helping a lot. The swelling n the left foot is same as before and did not improve on Lasix. Thus stop lasix and klor con and tray Ibuprofen 400 mg bid with food for 7-10 days with use of pantoprazole 40 mg daily for 2 weeks. Intake Vitals/Pain Assessment 01/01/25 09:39 Height 5 ft 7 in Weight 58.967 kg BMI 20.3 Body Fat % 33.49 BP 142/77 H Blood Pressure Location Rt brachial Position Sitting Temp 97.4 F L Temp Source Temporal Pulse 66 Pulse Source NIBP Respiration 18 Pulse Oximetry (%) 98 Oxygen Delivery Method room air Are you having pain? Yes Pain Location bilateral feet Intake Visit Reasons: 3 week f/u prior to tx Accompanied by: Daughter Allergies Corticosteroids (Glucocorticoids) Allergy (Verified 01/01/25 09:44) Unknown Reaction metaxalone (From Skelaxin) Allergy (Verified 01/01/25 09:44) Unknown Reaction entex Allergy (Uncoded 01/01/25 09:44) Unknown Reaction Home Medications - Last Reconciled 01/01/25 by MARY Chavarria alprazolam 0.25 mg PO TID PRN aspirin 81 mg PO DAILY cyclobenzaprine 10 mg PO HS PRN duloxetine 30 mg PO QDAY 30 days fluticasone propionate 50 mcg/actuation 1 spray intranasal BID furosemide (Lasix) 20 mg PO DAILY gabapentin 300 mg PO TID loratadine (Claritin) 10 mg PO DAILY losartan 25 mg PO DAILY metoprolol succinate ER 50 mg PO DAILY naloxone 4 mg/actuation 4 mg intranasal Q2-3M PRN ondansetron 8 mg PO Q8HR PRN oxycodone-acetaminophen 10-325 mg 1 tab PO Q4-6H PRN 30 days potassium chloride ER (Klor-Con M) 20 mEq PO DAILY prochlorperazine maleate (Compazine) 10 mg PO Q6HR PRN Gastrointestinal Is the patient taking opioids for pain control?: Yes Bowel Protocol for Opioids Given: Yes Bowel Pattern: Regular Bowel Movement Aid(s): Laxative (Miralax & Senna) Falls Fall Precaution Measures Taken: Patient in chair Nurse's Note: Patient is here for a 3 week follow up with labs for review. scheduled for her last chemo today. Scheduled to meet with Dr Elizabeth 02/04/2025. [facility] Medical History Medical History Breast cancer, left Immunosuppressed due to chemotherapy Pneumonia Bacteremia due to Streptococcus pneumoniae Acute anemia Pancytopenia UTI (urinary tract infection) Pneumonia Osteopenia Encounter for screening for osteoporosis Hypertension Surgical History Surgical History History of knee surgery bilateral History of lumpectomy of left breast History of cholecystectomy History of appendectomy History of hysterectomy History of foot surgery multiple bilateral Family History Family History Family/Other Breast cancer Social History Social History Smoking status: Former smoker What tobacco products do you use: cigarettes Smoking quit date/years:>15 years ago Within the past year, how often did you have a drink containing alcohol: monthly or less In the past 12 months, have you used illegal drugs or prescription drugs for non-medical reasons?: No Review of Systems ROS Details: All systems reviewed & no additional complaints except as documented General: Patient denied fevers, chills, rigors, weight loss or loss of appetite. Head: Patient denied any headaches or vision changes Thoracic: Patient denied any shortness of breath or cough or hemoptysis Cardiovascular patient denies any chest pain or leg edema GI: Patient denies any nausea vomiting rectal bleed diarrhea : Patient denied gross hematuria. Hematology: Patient denied any bleeding from any source. No easy bruising. Lymphatic: No enlarged LAP anywhere. Skin: Normal skin exam no rashes or suspicious lesions. Neurological patient denies any headache or dizziness or focal weakness or sensory changes. Physical Exam EXAM ECOG performance status 1. HEENT normocephalic atraumatic pupils are equal and round Neck supple without thyromegaly or any cervical lymphadenopathy. Chest clear to auscultation bilaterally without wheezing crackles or rhonchi Heart regular rate and rhythm S1-S2 without murmurs gallop or rub Abdomen soft nontender not distended without hepatosplenomegaly or masses clinically Extremities similar edema of the left foot with minor tender erythema and dry skin. No convincing findings of cellulitis and no fevers. Skin without any suspicious rashes Neurological exam patient is cooperative alert and oriented x3 no focal deficits. Results - [facility] LAB RESULTS Corrected WBC 5.3 X10E3/uL (3.8-11.6) 12/31/24 14:20 5 Hgb 10.6 g/dL (11.8-15.4) L 12/31/24 14: 5 Hct 30.7 % (34.0-46.4) L 12/31/24 14:20 12/31/24 MCV 102.9 fl (80-100) H 12/31/24 14:20 12/31/24 RDW 17.0 % (11.9-15.3) H 12/31/24 14:20 12/31/24 Plt Count 222 x10E3/uL (150-450) 12/31/24 14:20 12/31/24 Sodium 139 mmol/L (136-145) 12/31/24 14:20 12/31/24 Potassium 4.0 mmol/L (3.5-5.1) 12/31/24 14:20 12/31/24 BUN 18 mg/dL (7-25) 12/31/24 14:20 12/31/24 Creatinine 0.99 mg/dL (0.60-1.20) 12/31/24 14:20 12/31/24 Glucose 101 mg/dL (70-100) H 12/31/24 14:20 12/31/24 Est GFR (CKD-EPI) > 60.0 mL/Min 12/31/24 14:20 12/31/24 Calcium 9.9 mg/dL (8.6-10.3) 12/31/24 14:20 12/31/24 Total Bilirubin 0.4 mg/dl (0.3-1.0) 12/31/24 14:20 12/31/24 AST 21 U/L (13-39) 12/31/24 14:20 12/31/24 ALT 12 U/L (7-52) 12/31/24 14:20 12/31/24 Alkaline Phosphatase 50 U/L (34-104) 12/31/24 14:20 12/31/24 Total Protein 6.6 gm/dL (6.4-8.9) 12/31/24 14:20 12/31/24 Albumin 4.0 gm/dL (3.5-5.7) 12/31/24 14:20 12/31/24 Social Determinants of Health Screening SDOH last assessed in clinic: 01/01/25 Will the patient participate in the screening?: Yes Do you worry about having a steady place to live?: No In the past 12 months, have you had to go without electric, gas, oil, or water in your home?: No Have you or anyone in your house had to go without enough food to eat?: No Has lack of reliable transportation kept you from medical appointments or from doing things needed for daily living?: No Has anyone in your support network made you feel unsafe for any reason?: No Does the patient want assistance with any of the above?: No Dictated By: Kush Glez MD DD/ [id number] Signed By: 01/01/[address] [place], [place] [id number] Progress [place] [id number] Palliative Medicine Encounter Patient: Adelina Mir MR#: [id number] : 1960 Acct:[id number] Age/Sex: 64 / F Copies to: SOLA Wilcox MD~ HPI Date of Visit Date of Visit: 12/19/2024 Chief Complaint: Alannah is here for follow up at time of chemo. She was to continue Percocet 5/325mg, Duloxetine 30 mgand Gabapentin 300 mg at last office visit HPI: Alannah is seen and examined; interim period and pertinent symptoms reviewed below and detailed in ESAS: Continues chemo until the end of the month, then will have radiation Pain in the feet is most bothersome (top of feet and heels), also experiences pain in the lower legs, knees, hips - prolonged activity will aggravate but usesactivity as a distraction - gets a littlerelief with Percocet Feeling more anxious, BP has been elevated Intake Allergies Corticosteroids (Glucocorticoids) Allergy (Verified 12/11/24 10:47) Unknown Reaction metaxalone (From Skelaxin) Allergy (Verified 12/11/24 10:47) Unknown Reaction entex Allergy (Uncoded 12/11/24 10:47) Unknown Reaction Home Medications ?Medication ?Instructions ?Recorded ?Confirmed alprazolam 0.25 mg tablet 0.25 mg PO TID PRN anxiety 02/08/24 12/11/24 aspirin 81 mg tablet,delayed 81 mg PO DAILY 02/08/24 12/11/24 release cyclobenzaprine 10 mg tablet 10 mg PO HS PRN muscle spasm 02/08/24 12/11/24 gabapentin 300 mg capsule 300 mg PO TID 02/08/24 12/11/24 ondansetron 8 mg disintegrating 8 mg PO Q8HR PRN nausea and 05/30/24 12/11/24 tablet vomiting #30 tabs prochlorperazine maleate 10 mg 10 mg PO Q6HR PRN nausea and 05/30/24 12/11/24 tablet (Compazine) vomiting #30 tabs naloxone 4 mg/actuation nasal spray 4 mg intranasal Q2-3M PRN opioid 08/22/24 12/11/24 overdose #2 ea cetirizine 10 mg tablet 10 mg PO DAILY 09/17/24 12/11/24 fluticasone propionate 50 1 spray intranasal BID 09/17/24 12/11/24 mcg/actuation nasal spray,suspension losartan 25 mg tablet 25 mg PO DAILY #30 tabs 09/25/24 12/11/24 metoprolol succinate 50 mg 50 mg PO DAILY #30 tabs 09/25/24 12/11/24 tablet,extended release 24 hr duloxetine 30 mg capsule,delayed 30 mg PO QDAY 30 days #30 caps 10/30/24 12/11/24 release furosemide 20 mg tablet (Lasix) 20 mg PO DAILY #30 tabs 12/11/24 12/11/24 potassium chloride 20 mEq 20 meq PO DAILY #30 tabs 12/11/24 12/11/24 tablet,extended release(part/cryst) (Klor-Con M) oxycodone-acetaminophen 10 mg-325 1 tab PO Q4-6H PRN pain 30 days 12/19/24 mg tablet #150 tabs Is patient having pain?: Yes PMFSH Medical History Breast cancer, left Immunosuppressed due to chemotherapy Pneumonia Bacteremia due to Streptococcus pneumoniae Acute anemia Pancytopenia UTI (urinary tract infection) Pneumonia Osteopenia Encounter for screening for osteoporosis Hypertension Surgical History History of knee surgery bilateral History of lumpectomy of left breast History of cholecystectomy History of appendectomy History of hysterectomy History of foot surgery multiple bilateral Family History Family/Other Breast cancer Social History Smoking Status: Former smoker Tobacco Type: cigarettes Substance Use Type: Prescribed and Marijuana Substance Abuse Comment: marijuana medical [place] Symptom Assessment Scale Pain: bilateral feet pain, radiates up legs /makes her walk differently then hips bother her unable to do much for long Nausea/Vomiting: mild intermittent nausea, denies vomiting Anorexia: decreased, poor appetite/ does have new dentures coming she feels this will help Dyspnea: denies Constipation: improved using Miralax and Senna daily Drowsiness: naps almost daily Fatigue: moderate / decreased energy Insomnia: denies Depression/Mood: stable Anxiety: increased anxiety with increased/ uncontrolled pain Exam Exam General - A&O, accompanied by daughter FILIBERTO - EOM intact, oral mucosa pink/moist Lungs - normal respiratory effort with conversation Abdomen - soft, non-distended Extremities - normal ROM, no edema Psychiatric - pleasant, cooperative, normal mood/affect Assessment & Plan Assessment & Plan (1) Cancer associated pain: Plan: Alannah reports increasing pain in her feet with ongoing chemo, Percocet 5-325 tabsno longer providingadequate relief, will adjust dosage to improve pain control and reassess in 1 week during chemo Continue Gabapentin 300 mg TID without change Stop Percocet 5/325 mg QID Start Percocet 10/325 mg QID (2) Adjustment disorder with mixed anxiety and depressed mood: Plan: Admits to feeling a little more anxious lately but is managing this well, duloxetine helps Continue Duloxetine 30 mg daily without change (3) Breast cancer, left: Qualifiers: Breast location: unspecified site of breast Estrogen receptor status: positive Patient sex: female Qualified Code(s): C50.912 - Malignant neoplasm of unspecified site of left female breast; Z17.0 - Estrogen receptor positive status [ER+] Plan: 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 Completed 4 cycles of AC chemotherapy and continues therapy with weekly taxol; will undergo adjuvant radiation after completion of scheduled taxol Attestation: The above note written by Kimberly Carnes MA acting as human recorder, note dictated by Elda Hurtado APRN, [employer] ACH[employer] Dictated By: Elda Hurtado APRN DD/ [id number] Signed By: 12/23/24 1654 [facility] [place]04-09-2025 Evaluation note* Diagnosis Onset Date Resolution Status Admit Date Breast cancer, left acuteApril 2024 10:36amOsteopeniainactiveApril 2024 10:36amAdjustment disorder with mixed anxiety and depressed moodacuteApril 2024 8:51amBreast cancer, leftacuteApril 2024 8:51amCancer associated painacuteApril 2024 8:51amBreast cancer, leftacuteApril 2024 8:21amNeuropathyacuteApril 2024 8:21amBreast cancer, leftacuteApril 2024 9:37amOsteopenia inactiveApril 2024 9:37amBreast cancer, leftacuteJune 2024 10:59am NeuropathyacuteJune 2024 10:46am [facility] Work Phone: 1(697) 883-546004-09-2025 [facility] [place] [address] Cancer Center Note Signed Patient: Adelina Mir MR#: [id number] : 1960 Acct:[id number] Age/Sex: 64 / F Type: REG AMB Date of Service: 12/11/24 Copies to: Michael Holley MD~ Assessment & Plan A/P (1) Breast cancer, left: (2) Osteopenia: Plan Based on the biopsy done on 01/10/2024 it reveals pT1c, pNX, ER positive, TX positive, HER2/pat negative (1+), no DCIS, tumor size of the invasive ductal carcinoma is 1.7 cm at least with positive superior margin and no lymphovascularinvasion detected. No lymph nodes included in the biopsy. Patient was referredfor further surgical resection with bilateral mastectomy by Dr. Braun and Dr. Bustamante forreconstructive surgery. - Invitae gene testing done 03/01/24 was negative. -Bone density scan done on 02/15/2024 revealed osteopenia with a T-score of -1.4 in the left femoralneck. - Oncotype Dx score was done on the biopsy tissue based on unknown gwen statusat that time revealed: - If she is node-negative: Recurrence score of 5 with distant recurrence risk at 9 years of 3% withendocrine therapy alone with less than 1% benefit from the chemo. - If Node positive and premenopausal: Recurrence score will be 5 with distantrecurrence risk at 5 years 3% with her medicine better or endocrine therapy alone and chemo benefit 2.3%. -If she is postmenopausal and node positive the recurrence score is 5 with distant recurrence risk at 5 years with AI or tamoxifen alone is 1% and chemo benefit no apparent benefit noticed as it is less than 1% only. -If she has node positive of 4 or more lymph nodes then recurrence score is 5% and the distant recurrence at 9 years is 35% with AI and tamoxifen alone. -She underwent left breast mastectomy with sentinel node biopsy 05/16/2024, skin sparing with immediate reconstruction with tissue litharge supervisor by Dr. Bustamante. Surgical path from surgery done on 05/16/2024 revealed: A. Left axillary sentinel lymph node 1 out of 2 lymph nodes positive for metastatic carcinoma with mucinous features with extranodal extension again and 1 out of 2 lymph nodes. B. Lymph nodes in the left axillary sentinel lymph node 2 of 6 lymph nodes positive for metastatic carcinoma with mucinous features with extranodal extension. Left breast mastectomy revealed invasive ductal carcinoma with mucinous featuresgrade 2, 1.4 cm in greatest dimension. Ductal carcinoma in situ low-grade cribriform Lymphovascular invasion present Focal invasive carcinoma is present within 1 mm from inked inferior margin. Resection margins negative for DCIS with 5 mm from closest deep margin. Fibrocystic changes characterized by apocrine metaplasia and usual ductal hyperplasia with adenosisand microcalcification. Skin and nipple uninvolved by DCIS or invasive cancer Stage IIA, TNM stage is pT1c, pN1a. Number of lymph nodes with macrometastasis 3 and number of lymph nodes with isolated tumor cells 0 and number of lymph nodes with micrometastasis 0. Extranodal extension is present. ER positive over 90%, TX +80%, HER2 negative (1+), Ki-67 3% Treatment plan: After discussing the above findings from the surgical path with her and considering that she has extranodal extension of 3 out of 6 lymph nodes and lymphovascular invasion positive with 1.4 cm tumor that is grade 2, I recommended adjuvant chemo using dose dense AC followed by T followed by adjuvantradiation followed by adjuvant endocrine therapy. She agreed and signed the consent. Side effects were discussed with patient. 07/31/24: She is here for 1 week toxicity check [facility] She tolerated C1 without any complaints but has same postnasal drainage for more than 4 weeks evenbefore chemo without sore throat or fevers. She tried Benadryl and can not take steroids due to allergy to steroids. She is scheduled for cycle 2 on 08/08/2024. Labs on 07/30/2024 revealed normal CBC with normal WBC of 5.7 normal ANC of 4.2 and unremarkable CMP. - Proceeded with cycle 2 of dose dense AC on 08/08/2024. 08/21/24: She is here for evaluation prior to her C3 of the adjuvant ddAC scheduled on 08/22/24. She had mildfatigue and had nausea for 6 days after cycle 2 of dose dense AC but not vomiting and no chest painor shortness of breath or leg edema or abdominal pain or diarrhea. She has chronic peripheral neuropathy even before chemotherapy. No fevers or current infections. Her Zofran she took daily for 6 days after cycle 2 helped her nausea. PLAN: Proceed with C3 ddAC on 08/21/24 if labs meets criteria for chemo. Continue using calcium 500 mg twice daily and vitamin D 2000 unit daily for her mild osteopenia. Next DEXA scan is in 02/2026. I asked her to take her Zofran daily for the first week after each dose dense ACgiven. Weekly CBCs and CMP. Try pepcid and Zyrtec for postnasal drainage. Returns in 2 weeks for cycle 4 of dose dense AC. After she completes 4 cycles of ddAC she then can start weekly taxol 2 weeks after C4 of AC. 09/03/24: She continues to do fairly well with treatment and will receive cycle 4 ddAC this week. Her labs remain okay for continued treatment. She will follow-up in2 weeks with Dr. Bales with plans of starting her weekly Taxol at that visit as well. 09/17/24: Patient sent to ED for worsening symptoms, will likely hold off on initiation of Taxol this week given acute concerns. 09/19/24: She is admitted with a hemoglobin of 5.6 and found to have pneumonia as well as UTI during this admission evaluation with urine culture and was transfused 2 units of packed RBC and brought her hemoglobin up to 7.7 on 09/19/2024. Her platelet on admission on 09/17/2024 was 24K on 09/17/24 and they are 38K on 09/19/24 without evidence or signs of clinical bleeding. - Medical oncology was consulted for further recommendation regarding her anemia, thrombocytopenia and left breast cancer treatment considering that she missed her week 1 of the weekly Taxol scheduled on 09/18/24. Clinically she denied any melena or rectal bleeding or gross hematuria. She denies any hemoptysis however she has some right lower chest discomfort and cough likely from her pneumonia. She has some burning with her urination as well. 10/03/24: She is here for 2 weeks follow up after hospital admission for pneumonia, UTI, severe anemia and thrombocytopenia with hgb 5.6 and plt 24K (see above). Labs on 10/03/2024 revealed hemoglobin increased to 8.9 WBC is 9.8 and a plateletcount of is back tonormal 321. CMP are normal. She is here to resume her adjuvant chemo as she was supposed to start her week 1of adjuvant weekly Taxol prior to her recent admission. - She did not start her week1 of the weekly Taxol on 10/09/24 because of generalized weakness. 10/16/24: Patient is here for to start week1 of the weekly Taxol. No new complaints. Labs on 10/15/2024 revealed stable anemia hemoglobin 8.1 with normal WBC and platelet count and normal creatinine and LFTs. - Started weekly Taxol on 10/16/24. 10/30/24: Patient is here for week 3 of her adjuvant weekly Taxol out of the planned 12 weeks for her left breast cancer. No new complaints. No bleeding. no new masses or enlarged LNs. Labs on 10/29/2024 revealed stable anemia hemoglobin 8.9 with platelet 145 slightly lower than before and normal WBC and ANC. CMP is unremarkable. Iron studies revealed normal iron 81 with TIBC 321 normal iron saturation 25 and ferritin of 459 hide. She was given Cymbalta by Palliative for her neuropathy and it helped a lot. 12/11/24: Patient is here for week 9 of her adjuvant weekly Taxol. She is tolerating it well without changes on her neuropathy however she complains of distal painful swelling of both feet specially the left foot since September 2024 hospital admission. The swelling improved last week after 1 dose of Lasix given IV during the infusion treatment. She denied any fevers. She has slight erythema that has been stable since September 2024 the left foot. Once again no fever and no chills.. Labs are unremarkable except for mild stable anemia hgb 10.6. - I rechecked her blood pressure it came back 190/98 by my reading and it was 205/90 and by the midlevel during the triage. PLAN: Proceed with week 9 today. Give her 40 mg of IV Lasix upstairs today and start her on 20 mg oral Lasix daily for the next 2 weeks. Give her 40 mEq of potassium upstairs today orally and 20 mg of Klor-Con daily for the next 2 weeks. Change Zyrtec to Claritin daily. She cannot have steroids because she is allergic to steroid as tosee if this is gouty arthritisin the feet or allergic reaction to Taxol. Therefore we will try the Claritin. Can consider Pepcid as well. Will check uric acid to make sure is not gouty arthritis. And if it comes back high then we will start her on allopurinol. I asked her to see her PCP within the next 24 hours to better manage her uncontrolled hypertension. Continue B1/B6/B12 50/50/500 mg for neuropathy history. Continue Cymbalta for neuropathy as it helped a lot. Continue calcium and vit D for osteopenia. Refer her to Rad Onc to plan for adjuvant radiation after completing her adjuvant Taxol in 3 weeks. After she finished adjuvant radiation she is to start adjuvant endocrine therapy. Weekly CBC. CMP every 2 weeks. RTC in 3 weeks for week 12. Patient Instructions: lasix 20mg daily for 2 weeks with klor-con 20 lasix 40mg IV with treatment claritin OTC daily uric acid level proceed with treatment today refer to radiation return in 3 weeks CHEMO PLAN Treatment Plan Paclitaxel 80mg/m2 Weekly x 4 weeks Clinical Indication No Indication Cycle Number Last Admin 3 of 3 Cycle Day Next Admin 17 No Active Chemotherapy History of Present Illness SHAE Sahu is a 63-year-old nice lady with history of generalized anxiety disorder, ADHD, complex regional pain syndrome of the lower extremity, essential tremor, hypertension and osteoarthritis to has idiopathic polyneuropathy and scoliosis with history of intermittent marijuana use as needed for paincontrol who was referred to our medical oncology clinic by Dr. Braun for new findings of new leftbreast invasive ductal carcinoma grade 2, ER positive, TX positive, HER2/pat negative 1+, 1.7 cm at least invasive ductal carcinoma, negative for lymphovascular invasion, positive superior margin of the invasive cancer, no DCIS presents and no lymph nodes were obtained as per the biopsy done on 01/10/2024. Patient has been having intermittent nipple discharge with possible fistula from the left breast but no nipple bleeding for several months. She hadBI-RADS 3 screening mammogram in April 2023 whichwas followed by ultrasound patient underwent initial biopsy of the suspicious left breast lesion on 07/12/2023 however results of the path of that biopsy was consistent with fibrovascular adipose tissue with no pathology present. Patient continues to have nipple discharge and Dr. Braun plan to do a lumpectomy however because of cardiac workup and clearance needed another biopsy was done on left breast underultrasound guidance and it came back also inconclusive in November 2023 which led to excisional biopsy performed on 01/10/2024. The path results of that excisionalbiopsy done on 01/10/2024 is as follows: Pathological Diagnosis 01/10/2024: Mass, left breast, 7:00, lumpectomy: Invasive ductal carcinoma. Tumor Is 1.7 Cm In Greatest Dimension. Grade 2/ Moderately Differentiated. Tumor is present at the superior surgical margin. Tumor Is less than 0.1 Cm From The anterior and lateral surgical Margins. No Evidence Of Lymphovascular Invasion. Breast Hormone Profile ER: Positive TX: Positive HER2/pat by immunostain: Negative (1+) CAP CANCER CASE SUMMARY SPECIMEN Procedure: Excision [...] (when applicable) pM categories is based on informationavailable to the pathologist at the time the report is issued. As per the AJCC (Chapter 1, 8th Ed.) it is the managing physician's responsibility to establish the final pathologic stage based upon all pertinent information, including but potentially not limited to this pathology report. pT Category: pT1c pN Category: pNx Patient denies any family history of ovarian cancer however she has a cousin with breast cancer. She has a sister with multiple lumps under her breast but there were not cancerous. No known family history of ovarian cancer however hermom had mesothelioma. She does not know her father side because she does not know her biological father. 05/30/24: She is here for further planning of care after her left breast mastectomy and for results of the DEXA scan and Oncotype DX. Patient was sent to Dr. Bustamante for reconstructive breast surgeries as she is electing to go for bilateral mastectomy. She was also sent to our medical oncology clinic for recommendation regarding management of her new left breast cancer that is ER positive TX positive and HER2/pat negative but nolymph nodes were obtained as of this initial consult done on 02/08/2024. Surgery date yet to be determined [address] BRAUN. - Invitae gene testing done 03/01/24 was negative. -Bone density scan done on 02/15/2024 revealed osteopenia with a T-score of -1.4 in the left femoralneck. - Oncotype Dx score was done on the biopsy tissue based on unknown gwen statusat that time revealed: - If she is node-negative: Recurrence score of 5 with distant recurrence risk at 9 years of 3% withendocrine therapy alone with less than 1% benefit from the chemo. - If Node positive and premenopausal: Recurrence score will be 5 with distantrecurrence risk at 5 years 3% with her medicine better or endocrine therapy alone and chemo benefit 2.3%. -If she is postmenopausal and node positive the recurrence score is 5 with distant recurrence risk at 5 years with AI or tamoxifen alone is 1% and chemo benefit no apparent benefit noticed as it is less than 1% only. -If she has node positive of 4 or more lymph nodes then recurrence score is 5% and the distant recurrence at 9 years is 35% with AI and tamoxifen alone. -She underwent left breast mastectomy with sentinel node biopsy 05/16/2024, skin sparing with immediate reconstruction with tissue litharge supervisor by Dr. Bustamante. Surgical path from surgery done on 05/16/2024 revealed: A. Left axillary sentinel lymph node 1 out of 2 lymph nodes positive for metastatic carcinoma with mucinous features with extranodal extension again and 1 out of 2 lymph nodes. B. Lymph nodes in the left axillary sentinel lymph node 2 of 6 lymph nodes positive for metastatic carcinoma with mucinous features with extranodal extension. Left breast mastectomy revealed invasive ductal carcinoma with mucinous featuresgrade 2, 1.4 cm in greatest dimension. Ductal carcinoma in situ low-grade cribriform Lymphovascular invasion present Focal invasive carcinoma is present within 1 mm from inked inferior margin. Resection margins negative for DCIS with 5 mm from closest deep margin. Fibrocystic changes characterized by apocrine metaplasia and usual ductal hyperplasia with adenosisand microcalcification. Skin and nipple uninvolved by DCIS or invasive cancer Stage IIA, TNM stage is pT1c, pN1a. Number of lymph nodes with macrometastasis 3 and number of lymph nodes with isolated tumor cells 0 and number of lymph nodes with micrometastasis 0. Extranodal extension is present. ER positive over 90%, TX +80%, HER2 negative (1+), Ki-67 3% 07/31/24: She is here for 1 week toxicity check after cycle 1 of dose dense AC obtained [facility] on 07/24/2024. She tolerated C1 without any complaints but has same postnasal drainage for more than 4 weeks evenbefore chemo without sore throat or fevers. She tried Benadryl and can not take steroids due to allergy to steroids. She is scheduled for cycle 2 on 08/08/2024. Labs on 07/30/2024 revealed normal CBC with normal WBC of 5.7 normal ANC of 4.2 and unremarkable CMP. 08/21/24: She is here for evaluation prior to her C3 of the adjuvant ddAC scheduled on 08/22/24. She had mildfatigue and had nausea for 6 days after cycle 2 of dose dense AC but not vomiting and no chest painor shortness of breath or leg edema or abdominal pain or diarrhea. She has chronic peripheral neuropathy even before chemotherapy. No fevers or current infections. Her Zofran she took daily for 6 days after cycle 2 helped her nausea. 14 point review of systems was obtained and was negative. 09/03/24: She presents for cycle 4 ddAC. She continues with fatigue and dyspnea if she exerts herself, otherwise no chest pain or shortness of breath at rest. No change in her neuropathy with treatment. Her nausea has better controlled now that she is taking her antiemetics regularly. She is eating and drinking ok anddenies vomiting, diarrhea, or constipation. She denies other new concerns as well. Her labs remain okay for continued treatment. 09/17/24: She presents to clinic as an add-on for worsening symptoms. Her daughter is concerned that she has pneumonia as she has been having shortness of breath and not eating much at all. Vitals today note significant hypotension and decreasedheart rate. Her oxygen levels on arrival dropped between 70s/80sand she was placed on supplemental oxygen, up to 6 L in office before her sats improved intothe 90s. She has attempted to give a urine sample as she has concern for UTI aswell, however was not able to go. Given acute symptoms, we have decided to sendher to the ED for further evaluation. 09/19/24: She is admitted with a hemoglobin of 5.6 and found to have pneumonia as well as UTI during this admission evaluation with urine culture and was transfused 2 units of packed RBC and brought her hemoglobin up to 7.7 on 09/19/2024. Her platelet on admission on 09/17/2024 was 24K on 09/17/24 and they are 38K on 09/19/24 without evidence or signs of clinical bleeding. - Medical oncology was consulted for further recommendation regarding her anemia, thrombocytopenia and left breast cancer treatment considering that she missed her week 1 of the weekly Taxol scheduled on 09/18/24. Clinically she denied any melena or rectal bleeding or gross hematuria. She denies any hemoptysis however she has some right lower chest discomfort and cough likely from her pneumonia. She has some burning with her urination as well. 10/03/24: She is here for 2 weeks follow up after hospital admission for pneumonia, UTI, severe anemia and thrombocytopenia with hgb 5.6 and plt 24K (see above). Labs on 10/03/2024 revealed hemoglobin increased to 8.9 WBC is 9.8 and a plateletcount of is back tonormal 321. CMP are normal. She is here to resume her adjuvant chemo as she was supposed to start her week 1of adjuvant weekly Taxol prior to her recent admission. She feels much better. No more SOB and no CP or bleeding from any source. 10/16/24: Patient is here for to start week1 of the weekly Taxol. No new complaints. Labs on 10/15/2024 revealed stable anemia hemoglobin 8.1 with normal WBC and platelet count and normal creatinine and LFTs. 10/30/24: Patient is here for week 3 of her adjuvant weekly Taxol out of the planned 12 weeks for her left breast cancer. No new complaints. No bleeding. no new masses or enlarged LNs. Labs on 10/29/2024 revealed stable anemia hemoglobin 8.9 with platelet 145 slightly lower than before and normal WBC and ANC. CMP is unremarkable. Iron studies revealed normal iron 81 with TIBC 321 normal iron saturation 25 and ferritin of 459 hide. She was given Cymbalta by Palliative for her neuropathy and it helped a lot. 12/11/24: Patient is here for week 9 of her adjuvant weekly Taxol. She is tolerating it well without changes on her neuropathy however she complains of distal painful swelling of both feet specially the left foot since September 2024 hospital admission. The swelling improved last week after 1 dose of Lasix given IV during the infusion treatment. She denied any fevers. She has slight erythema that has been stable since September 2024 the left foot. Once again no fever and no chills.. Labs are unremarkable except for mild stable anemia hgb 10.6. - I rechecked her blood pressure it came back 190/98 by my reading and it was 205/90 and by the midlevel during the triage. Intake Vitals/Pain Assessment 12/11/24 10:43 12/11/24 10:49 Height 5 ft 7 in Weight 58.967 kg BMI 20.3 Body Fat % 33.51 BP 216/89 H 205/90 H Position Sitting Temp 97.9 F Temp Source Temporal Pulse 94 Pulse Source NIBP Respiration 18 Pulse Oximetry (%) 98 Oxygen Delivery Method room air Are you having pain? Yes Pain Location generalized Pain scale (0-10) 6 Intake Visit Reasons: f/u prior to tx Accompanied by: Daughter Allergies Corticosteroids (Glucocorticoids) Allergy (Verified 12/11/24 10:47) Unknown Reaction metaxalone (From Skelaxin) Allergy (Verified 12/11/24 10:47) Unknown Reaction entex Allergy (Uncoded 12/11/24 10:47) Unknown Reaction Home Medications - Last Reconciled 12/11/24 by MARY Chavarria alprazolam 0.25 mg PO TID PRN aspirin 81 mg PO DAILY cetirizine 10 mg PO DAILY cyclobenzaprine 10 mg PO HS PRN duloxetine 30 mg PO QDAY 30 days fluticasone propionate 50 mcg/actuation 1 spray intranasal BID gabapentin 300 mg PO TID losartan 25 mg PO DAILY metoprolol succinate ER 50 mg PO DAILY naloxone 4 mg/actuation 4 mg intranasal Q2-3M PRN ondansetron 8 mg PO Q8HR PRN oxycodone-acetaminophen 5-325 mg 1 tab PO Q6HR PRN 30 days prochlorperazine maleate (Compazine) 10 mg PO Q6HR PRN Gastrointestinal Is the patient taking opioids for pain control?: Yes Bowel Protocol for Opioids Given: Yes Bowel Pattern: Regular Bowel Movement Aid(s): Laxative (senna) Falls Fall Precaution Measures Taken: Patient in chair Nurse's Note: Patient is here for a 6 week follow up with labs for review, prior to treatment today. [facility] History Attestation statement: The following information was validated with the patient. Medical History Medical History Breast cancer, left Immunosuppressed due to chemotherapy Pneumonia Bacteremia due to Streptococcus pneumoniae Acute anemia Pancytopenia UTI (urinary tract infection) Pneumonia Osteopenia Encounter for screening for osteoporosis Hypertension Surgical History Surgical History History of knee surgery bilateral History of lumpectomy of left breast History of cholecystectomy History of appendectomy History of hysterectomy History of foot surgery multiple bilateral Family History Family History Family/Other Breast cancer Social History Social History Smoking status: Former smoker What tobacco products do you use: cigarettes Smoking quit date/years:>15 years ago Within the past year, how often did you have a drink containing alcohol: monthly or less In the past 12 months, have you used illegal drugs or prescription drugs for non-medical reasons?: No Review of Systems ROS Details: All systems reviewed & no additional complaints except as documented General: Patient denied fevers, chills, rigors, weight loss or loss of appetite. Head: Patient denied any headaches or vision changes Thoracic: Patient denied any shortness of breath or cough or hemoptysis Cardiovascular patient denies any chest pain or leg edema GI: Patient denies any nausea vomiting rectal bleed diarrhea : Patient denied gross hematuria. Hematology: Patient denied any bleeding from any source. No easy bruising. Lymphatic: No enlarged LAP anywhere. Skin: Normal skin exam no rashes or suspicious lesions. Neurological patient denies any headache or dizziness or focal weakness or sensory changes. Physical Exam EXAM ECOG performance status 1. HEENT normocephalic atraumatic pupils are equal and round Neck supple without thyromegaly or any cervical lymphadenopathy. Chest clear to auscultation bilaterally without wheezing crackles or rhonchi Heart regular rate and rhythm S1-S2 without murmurs gallop or rub Abdomen soft nontender not distended without hepatosplenomegaly or masses clinically Extremities no edema of the lower extremities Skin without any suspicious rashes Neurological exam patient is cooperative alert and oriented x3 no focal deficits. Results - [facility] ([facility]) LAB RESULTS Corrected WBC 4.3 X10E3/uL (3.8-11.6) 12/10/24 14: 5 Hgb 10.6 g/dL (11.8-15.4) L 12/10/24 14: 5 Hct 31.2 % (34.0-46.4) L 12/10/24 14:12/10/24 MCV 103.0 fl (80-100) H 12/10/24 14:12/10/24 RDW 17.5 % (11.9-15.3) H 12/10/24 14:12/10/24 Plt Count 225 x10E3/uL (150-450) 12/10/24 14:12/10/24 Sodium 138 mmol/L (136-145) 12/10/24 14:12/10/24 Potassium 4.4 mmol/L (3.5-5.1) 12/10/24 14:12/10/24 BUN 16 mg/dL (7-25) 12/10/24 14:12/10/24 Creatinine 0.90 mg/dL (0.60-1.20) 12/10/24 14:12/10/24 Glucose 100 mg/dL (70-100) 12/10/24 14:12/10/24 Est GFR (CKD-EPI) > 60.0 mL/Min 12/10/24 14:12/10/24 Calcium 9.8 mg/dL (8.6-10.3) 12/10/24 14:00 12/10/24 Total Bilirubin 0.3 mg/dl (0.3-1.0) 12/10/24 14:00 12/10/24 AST 20 U/L (13-39) 12/10/24 14:00 12/10/24 ALT 12 U/L (7-52) 12/10/24 14:00 12/10/24 Alkaline Phosphatase 57 U/L (34-104) 12/10/24 14:00 12/10/24 Total Protein 6.7 gm/dL (6.4-8.9) 12/10/24 14:00 12/10/24 Albumin 3.9 gm/dL (3.5-5.7) 12/10/24 14:00 12/10/24 Social Determinants of Health Screening SDOH last assessed in clinic: 12/11/24 Will the patient participate in the screening?: Yes Do you worry about having a steady place to live?: No In the past 12 months, have you had to go without electric, gas, oil, or water in your home?: No Have you or anyone in your house had to go without enough food to eat?: No Has lack of reliable transportation kept you from medical appointments or from doing things needed for daily living?: No Has anyone in your support network made you feel unsafe for any reason?: No Does the patient want assistance with any of the above?: No Dictated By: Kush Glez MD DD/ [id number] Signed By: 12/11/[address] [place], [place] [id number] Evaluation note* Diagnosis Onset Date Resolution Status Admit Date Breast cancer, left acuteMarch 2024 7:52amCancer associated painacuteMarch 2024 7:52am ConstipationacuteMarch 2024 7:52amNeuropathyacuteMarch 2024 7:52am Breast cancer, leftacuteApril 2024 10:36amOsteopeniainactiveApril 2024 10:36amAdjustment disorder with mixed anxiety and depressed moodacuteApril 2024 8:51amBreast cancer, leftacuteApril 2024 8:51amCancer associated painacuteApril 2024 8:51amBreast cancer, leftacuteApril 2024 8:21amNeuropathyacuteApril 2024 8:21amBreast cancer, leftacuteApril 2024 9:37amOsteopeniainactiveApril 2024 9:37amBreast cancer, left acuteJune 2024 10:59am [facility] Work Phone: 1(644) 114-293303-03-2025 [facility]iology [facility] [place] [address] [place] [address] CT Scan Report Signed Patient: Adelina Mir MR#: [id number] : 1960 Acct:[id number] Age/Sex: 64 / F ADM Date: 5 Loc: CT Room: Type: [facility] Attending Dr: Roshan Reynoso MD Copies to: Roshan Reynoso MD~ Ordering Provider: Roshan Reynoso MD Date of Service: 11/04/24 CT/CT chest w con: J85.0 - Gangrene and necrosis of lung CT CHEST WITH INTRAVENOUS CONTRAST: CLINICAL HISTORY: Follow-up pneumonia COMPARISON: CT chest 10/07/2024 TECHNIQUE: Spiral images were obtained through the chest following intravenous administration of IVcontrast. This CT exam was performed using one or more following dose reduction techniques: Automated exposure control, adjustment of the mA and/or kV according to patient size, or use of iterative reconstruction technique. FINDINGS: Mediastinum:Right-sided port is in place. Thoracic aorta demonstrates moderate calcification and soft plaquing without aneurysm. Pulmonary trunk appears nondilated. No pericardial effusion or lymphadenopathy. The esophagus is grossly unremarkable. Lungs:Interval improvement of the consolidative changes involving the lower lobes as well as the right middle lobe with interval development of a small cavitary component involving the right middle lobe measuring approximately 7 mm in greatest axial dimension. No new consolidation, pneumothorax. Trace left pleural effusion. Emphysema. Abd:Left adrenal adenoma. Soft tissues/Bones: No acute findings. Osseous structures demonstrate degenerative change. CT/CT chest w con IMPRESSION: Interval improvement of the consolidative changes involving the lower lobes as well as the right middle lobe with a new cavitary component involving the right middle lobe measuring 7 mm in greatest axial dimension. The tree-in-bud nodularity involving the right lower lobe has resolved. Finding suggests response to therapy. Continued CT follow-up is recommended. Trace left pleural effusion. Impression dictated by: Jayden Cabral Jr., D.OLucila11/04/2024 2:37 PM Dictation Location: [facility]--22 Transcribed By: [facility] 11/04/24 143 Dictated By: Jayden Cabral Jr, DO 11/04/24 143 Signed By: 11/04/24 1437 [facility]02-26-2025 [facility] [place] [place] [id number] Note Signed Patient: Adelina Mir MR#: [id number] : 1960 Acct:[id number] Age/Sex: 64 / F Type: REG AMB Date of Service: 10/30/24 Copies to: Michael Holley MD~ Assessment & Plan A/P (1) Breast cancer, left: (2) Osteopenia: Plan Based on the biopsy done on 01/10/2024 it reveals pT1c, pNX, ER positive, TX positive, HER2/pat negative (1+), no DCIS, tumor size of the invasive ductal carcinoma is 1.7 cm at least with positive superior margin and no lymphovascularinvasion detected. No lymph nodes included in the biopsy. Patient was referredfor further surgical resection with bilateral mastectomy by Dr. Braun and Dr. Bustamante forreconstructive surgery. - Inv[facility]ae gene testing done 03/01/24 was negative. -Bone density scan done on 02/15/2024 revealed osteopenia with a T-score of -1.4 in the left femoralneck. - Oncotype Dx score was done on the biopsy tissue based on unknown gwen statusat that time revealed: - If she is node-negative: Recurrence score of 5 with distant recurrence risk at 9 years of 3% withendocrine therapy alone with less than 1% benefit from the chemo. - If Node positive and premenopausal: Recurrence score will be 5 with distantrecurrence risk at 5 years 3% with her medicine better or endocrine therapy alone and chemo benefit 2.3%. -If she is postmenopausal and node positive the recurrence score is 5 with distant recurrence risk at 5 years with AI or tamoxifen alone is 1% and chemo benefit no apparent benefit noticed as it is less than 1% only. -If she has node positive of 4 or more lymph nodes then recurrence score is 5% and the distant recurrence at 9 years is 35% with AI and tamoxifen alone. -She underwent left breast mastectomy with sentinel node biopsy 05/16/2024, skin sparing with immediate reconstruction with tissue litharge supervisor by Dr. Bustamante. Surgical path from surgery done on 05/16/2024 revealed: A. Left axillary sentinel lymph node 1 out of 2 lymph nodes positive for metastatic carcinoma with mucinous features with extranodal extension again and 1 out of 2 lymph nodes. B. Lymph nodes in the left axillary sentinel lymph node 2 of 6 lymph nodes positive for metastatic carcinoma with mucinous features with extranodal extension. Left breast mastectomy revealed invasive ductal carcinoma with mucinous featuresgrade 2, 1.4 cm in greatest dimension. Ductal carcinoma in situ low-grade cribriform Lymphovascular invasion present Focal invasive carcinoma is present within 1 mm from inked inferior margin. Resection margins negative for DCIS with 5 mm from closest deep margin. Fibrocystic changes characterized by apocrine metaplasia and usual ductal hyperplasia with adenosisand microcalcification. Skin and nipple uninvolved by DCIS or invasive cancer Stage IIA, TNM stage is pT1c, pN1a. Number of lymph nodes with macrometastasis 3 and number of lymph nodes with isolated tumor cells 0 and number of lymph nodes with micrometastasis 0. Extranodal extension is present. ER positive over 90%, TX +80%, HER2 negative (1+), Ki-67 3% Treatment plan: After discussing the above findings from the surgical path with her and considering that she has extranodal extension of 3 out of 6 lymph nodes and lymphovascular invasion positive with 1.4 cm tumor that is grade 2, I recommended adjuvant chemo using dose dense AC followed by T followed by adjuvantradiation followed by adjuvant endocrine therapy. She agreed and signed the consent. Side effects were discussed with patient. 07/31/24: She is here for 1 week toxicity check after cycle 1 of dose dense AC obtained orgiven on 07/24/2024. She tolerated C1 without any complaints but has same postnasal drainage for more than 4 weeks evenbefore chemo without sore throat or fevers. She tried Benadryl and can not take steroids due to allergy to steroids. She is scheduled for cycle 2 on 08/08/2024. Labs on 07/30/2024 revealed normal CBC with normal WBC of 5.7 normal ANC of 4.2 and unremarkable CMP. - Proceeded with cycle 2 of dose dense AC on 08/08/2024. 08/21/24: She is here for evaluation prior to her C3 of the adjuvant ddAC scheduled on 08/22/24. She had mildfatigue and had nausea for 6 days after cycle 2 of dose dense AC but not vomiting and no chest painor shortness of breath or leg edema or abdominal pain or diarrhea. She has chronic peripheral neuropathy even before chemotherapy. No fevers or current infections. Her Zofran she took daily for 6 days after cycle 2 helped her nausea. PLAN: Proceed with C3 ddAC on 08/21/24 if labs meets criteria for chemo. Continue using calcium 500 mg twice daily and vitamin D 2000 unit daily for her mild osteopenia. Next DEXA scan is in 02/2026. I asked her to take her Zofran daily for the first week after each dose dense ACgiven. Weekly CBCs and CMP. Try pepcid and Zyrtec for postnasal drainage. Returns in 2 weeks for cycle 4 of dose dense AC. After she completes 4 cycles of ddAC she then can start weekly taxol 2 weeks after C4 of AC. 09/03/24: She continues to do fairly well with treatment and will receive cycle 4 ddAC this week. Her labs remain okay for continued treatment. She will follow-up in2 weeks with Dr. Bales with plans of starting her weekly Taxol at that visit as well. 09/17/24: Patient sent to ED for worsening symptoms, will likely hold off on initiation of Taxol this week given acute concerns. 09/19/24: She is admitted with a hemoglobin of 5.6 and found to have pneumonia as well as UTI during this admission evaluation with urine culture and was transfused 2 units of packed RBC and brought her hemoglobin up to 7.7 on 09/19/2024. Her platelet on admission on 09/17/2024 was 24K on 09/17/24 and they are 38K on 09/19/24 without evidence or signs of clinical bleeding. - Medical oncology was consulted for further recommendation regarding her anemia, thrombocytopenia and left breast cancer treatment considering that she missed her week 1 of the weekly Taxol scheduled on 09/18/24. Clinically she denied any melena or rectal bleeding or gross hematuria. She denies any hemoptysis however she has some right lower chest discomfort and cough likely from her pneumonia. She has some burning with her urination as well. 10/03/24: She is here for 2 weeks follow up after hospital admission for pneumonia, UTI, severe anemia and thrombocytopenia with hgb 5.6 and plt 24K (see above). Labs on 10/03/2024 revealed hemoglobin increased to 8.9 WBC is 9.8 and a plateletcount of is back tonormal 321. CMP are normal. She is here to resume her adjuvant chemo as she was supposed to start her week 1of adjuvant weekly Taxol prior to her recent admission. - She did not start her week1 of the weekly Taxol on 10/09/24 because of generalized weakness. 10/16/24: Patient is here for to start week1 of the weekly Taxol. No new complaints. Labs on 10/15/2024 revealed stable anemia hemoglobin 8.1 with normal WBC and platelet count and normal creatinine and LFTs. - Started weekly Taxol on 10/16/24. 10/30/24: Patient is here for week 3 of her adjuvant weekly Taxol out of the planned 12 weeks for her left breast cancer. No new complaints. No bleeding. no new masses or enlarged LNs. Labs on 10/29/2024 revealed stable anemia hemoglobin 8.9 with platelet 145 slightly lower than before and normal WBC and ANC. CMP is unremarkable. Iron studies revealed normal iron 81 with TIBC 321 normal iron saturation 25 and ferritin of 459 hide. She was given Cymbalta by Palliative for her neuropathy and it helped a lot. PLAN: Proceed with week 3 today. Start B1/B6/B12 50/50/500 mg for neuropathy history. Continue Cymbalta for neuropathy as it helped a lot. Stop oral iron since iron studies are normal. Continue calcium and vit D for osteopenia. Weekly CBC. CMP every 2 weeks. RTC in 2 weeks for week 3. Patient Instructions: proceed with treatment today follow up in 6 weeks CHEMO PLAN Treatment Plan Paclitaxel 80mg/m2 Weekly x 4 weeks Clinical Indication No Indication Cycle Number Last Admin 2 of 3 Cycle Day Next Admin 3 No Active Chemotherapy History of Present Illness SHAE Sahu is a 63-year-old nice lady with history of generalized anxiety disorder, ADHD, complex regional pain syndrome of the lower extremity, essential tremor, hypertension and osteoarthritis to has idiopathic polyneuropathy and scoliosis with history of intermittent marijuana use as needed for paincontrol who was referred to our medical oncology clinic by Dr. Braun for new findings of new leftbreast invasive ductal carcinoma grade 2, ER positive, TX positive, HER2/pat negative 1+, 1.7 cm at least invasive ductal carcinoma, negative for lymphovascular invasion, positive superior margin of the invasive cancer, no DCIS presents and no lymph nodes were obtained as per the biopsy done on 01/10/2024. Patient has been having intermittent nipple discharge with possible fistula from the left breast but no nipple bleeding for several months. She hadBI-RADS 3 screening mammogram in April 2023 whichwas followed by ultrasound patient underwent initial biopsy of the suspicious left breast lesion on 07/12/2023 however results of the path of that biopsy was consistent with fibrovascular adipose tissue with no pathology present. Patient continues to have nipple discharge and Dr. Braun plan to do a lumpectomy however because of cardiac workup and clearance needed another biopsy was done on left breast underultrasound guidance and it came back also inconclusive in November 2023 which led to excisional biopsy performed on 01/10/2024. The path results of that excisionalbiopsy done on 01/10/2024 is as follows: Pathological Diagnosis 01/10/2024: Mass, left breast, 7:00, lumpectomy: Invasive ductal carcinoma. Tumor Is 1.7 Cm In Greatest Dimension. Grade 2/ Moderately Differentiated. Tumor is present at the superior surgical margin. Tumor Is less than 0.1 Cm From The anterior and lateral surgical Margins. No Evidence Of Lymphovascular Invasion. Breast Hormone Profile ER: Positive TX: Positive HER2/pat by immunostain: Negative (1+) CAP CANCER CASE SUMMARY SPECIMEN Procedure: Excision [...] (when applicable) pM categories is based on informationavailable to the pathologist at the time the report is issued. As per the AJCC (Chapter 1, 8th Ed.) it is the managing physician's responsibility to establish the final pathologic stage based upon all pertinent information, including but potentially not limited to this pathology report. pT Category: pT1c pN Category: pNx Patient denies any family history of ovarian cancer however she has a cousin with breast cancer. She has a sister with multiple lumps under her breast but there were not cancerous. No known family history of ovarian cancer however joseph had mesothelioma. She does not know her father side because she does not know her biological father. 05/30/24: She is here for further planning of care after her left breast mastectomy and for results of the DEXA scan and Oncotype DX. Patient was sent to Dr. Bustamante for reconstructive breast surgeries as she is electing to go for bilateral mastectomy. She was also sent to our medical oncology clinic for recommendation regarding management of her new left breast cancer that is ER positive TX positive and HER2/pat negative but nolymph nodes were obtained as of this initial consult done on 02/08/2024. Surgery date yet to be determined [address] BRAUN. - Invitae gene testing done 03/01/24 was negative. -Bone density scan done on 02/15/2024 revealed osteopenia with a T-score of -1.4 in the left femoralneck. - Oncotype Dx score was done on the biopsy tissue based on unknown gwen statusat that time revealed: - If she is node-negative: Recurrence score of 5 with distant recurrence risk at 9 years of 3% withendocrine therapy alone with less than 1% benefit from the chemo. - If Node positive and premenopausal: Recurrence score will be 5 with distantrecurrence risk at 5 years 3% with her medicine better or endocrine therapy alone and chemo benefit 2.3%. -If she is postmenopausal and node positive the recurrence score is 5 with distant recurrence risk at 5 years with AI or tamoxifen alone is 1% and chemo benefit no apparent benefit noticed as it is less than 1% only. -If she has node positive of 4 or more lymph nodes then recurrence score is 5% and the distant recurrence at 9 years is 35% with AI and tamoxifen alone. -She underwent left breast mastectomy with sentinel node biopsy 05/16/2024, skin sparing with immediate reconstruction with tissue litharge supervisor by Dr. Bustamante. Surgical path from surgery done on 05/16/2024 revealed: A. Left axillary sentinel lymph node 1 out of 2 lymph nodes positive for metastatic carcinoma with mucinous features with extranodal extension again and 1 out of 2 lymph nodes. B. Lymph nodes in the left axillary sentinel lymph node 2 of 6 lymph nodes positive for metastatic carcinoma with mucinous features with extranodal extension. Left breast mastectomy revealed invasive ductal carcinoma with mucinous featuresgrade 2, 1.4 cm in greatest dimension. Ductal carcinoma in situ low-grade cribriform Lymphovascular invasion present Focal invasive carcinoma is present within 1 mm from inked inferior margin. Resection margins negative for DCIS with 5 mm from closest deep margin. Fibrocystic changes characterized by apocrine metaplasia and usual ductal hyperplasia with adenosisand microcalcification. Skin and nipple uninvolved by DCIS or invasive cancer Stage IIA, TNM stage is pT1c, pN1a. Number of lymph nodes with macrometastasis 3 and number of lymph nodes with isolated tumor cells 0 and number of lymph nodes with micrometastasis 0. Extranodal extension is present. ER positive over 90%, TX +80%, HER2 negative (1+), Ki-67 3% 07/31/24: She is here for 1 week toxicity check after cycle 1 of dose dense AC obtained orgiven on 07/24/2024. She tolerated C1 without any complaints but has same postnasal drainage for more than 4 weeks evenbefore chemo without sore throat or fevers. She tried Benadryl and can not take steroids due to allergy to steroids. She is scheduled for cycle 2 on 08/08/2024. Labs on 07/30/2024 revealed normal CBC with normal WBC of 5.7 normal ANC of 4.2 and unremarkable CMP. 08/21/24: She is here for evaluation prior to her C3 of the adjuvant ddAC scheduled on 08/22/24. She had mildfatigue and had nausea for 6 days after cycle 2 of dose dense AC but not vomiting and no chest painor shortness of breath or leg edema or abdominal pain or diarrhea. She has chronic peripheral neuropathy even before chemotherapy. No fevers or current infections. Her Zofran she took daily for 6 days after cycle 2 helped her nausea. 14 point review of systems was obtained and was negative. 09/03/24: She presents for cycle 4 ddAC. She continues with fatigue and dyspnea if she exerts herself, otherwise no chest pain or shortness of breath at rest. No change in her neuropathy with treatment. Her nausea has better controlled now that she is taking her antiemetics regularly. She is eating and drinking ok anddenies vomiting, diarrhea, or constipation. She denies other new concerns as well. Her labs remain okay for continued treatment. 09/17/24: She presents to clinic as an add-on for worsening symptoms. Her daughter is concerned that she has pneumonia as she has been having shortness of breath and not eating much at all. Vitals today note significant hypotension and decreasedheart rate. Her oxygen levels on arrival dropped between 70s/80sand she was placed on supplemental oxygen, up to 6 L in office before her sats improved intothe 90s. She has attempted to give a urine sample as she has concern for UTI aswell, however was not able to go. Given acute symptoms, we have decided to sendher to the ED for further evaluation. 09/19/24: She is admitted with a hemoglobin of 5.6 and found to have pneumonia as well as UTI during this admission evaluation with urine culture and was transfused 2 units of packed RBC and brought her hemoglobin up to 7.7 on 09/19/2024. Her platelet on admission on 09/17/2024 was 24K on 09/17/24 and they are 38K on 09/19/24 without evidence or signs of clinical bleeding. - Medical oncology was consulted for further recommendation regarding her anemia, thrombocytopenia and left breast cancer treatment considering that she missed her week 1 of the weekly Taxol scheduled on 09/18/24. Clinically she denied any melena or rectal bleeding or gross hematuria. She denies any hemoptysis however she has some right lower chest discomfort and cough likely from her pneumonia. She has some burning with her urination as well. 10/03/24: She is here for 2 weeks follow up after hospital admission for pneumonia, UTI, severe anemia and thrombocytopenia with hgb 5.6 and plt 24K (see above). Labs on 10/03/2024 revealed hemoglobin increased to 8.9 WBC is 9.8 and a plateletcount of is back tonormal 321. CMP are normal. She is here to resume her adjuvant chemo as she was supposed to start her week 1of adjuvant weekly Taxol prior to her recent admission. She feels much better. No more SOB and no CP or bleeding from any source. 10/16/24: Patient is here for to start week1 of the weekly Taxol. No new complaints. Labs on 10/15/2024 revealed stable anemia hemoglobin 8.1 with normal WBC and platelet count and normal creatinine and LFTs. 10/30/24: Patient is here for week 3 of her adjuvant weekly Taxol out of the planned 12 weeks for her left breast cancer. No new complaints. No bleeding. no new masses or enlarged LNs. Labs on 10/29/2024 revealed stable anemia hemoglobin 8.9 with platelet 145 slightly lower than before and normal WBC and ANC. CMP is unremarkable. Iron studies revealed normal iron 81 with TIBC 321 normal iron saturation 25 and ferritin of 459 hide. She was given Cymbalta by Palliative for her neuropathy and it helped a lot. Intake Vitals/Pain Assessment 10/30/24 10:03 Weight 60.781 kg BP 117/77 Blood Pressure Location Rt brachial Position Sitting Temp 97.4 F L Temp Source Temporal Pulse 82 Pulse Source NIBP Respiration 20 Pulse Oximetry (%) 98 Oxygen Delivery Method room air Are you having pain? No Intake Visit Reasons: Follow Up/Treatment Accompanied by: Daughter Allergies Corticosteroids (Glucocorticoids) Allergy (Verified 10/30/24 10:07) Unknown Reaction metaxalone (From Skelaxin) Allergy (Verified 10/30/24 10:07) Unknown Reaction entex Allergy (Uncoded 10/30/24 10:07) Unknown Reaction Home Medications - Last Reconciled 10/30/24 by MARY Chavarria alprazolam 0.25 mg PO TID PRN aspirin 81 mg PO DAILY cetirizine 10 mg PO DAILY cyclobenzaprine 10 mg PO HS PRN duloxetine 30 mg PO QDAY 30 days fluticasone propionate 50 mcg/actuation 1 spray intranasal BID gabapentin 300 mg PO TID losartan 25 mg PO DAILY metoprolol succinate ER 50 mg PO DAILY naloxone 4 mg/actuation 4 mg intranasal Q2-3M PRN ondansetron 8 mg PO Q8HR PRN oxycodone-acetaminophen 5-325 mg 1 tab PO Q6HR PRN 30 days prochlorperazine maleate (Compazine) 10 mg PO Q6HR PRN Gastrointestinal Is the patient taking opioids for pain control?: Yes Bowel Protocol for Opioids Given: Yes Bowel Pattern: Regular Bowel Movement Aid(s): None Falls Fall Precaution Measures Taken: Patient in chair Nurse's Note: Patient is here for a 2 week follow up with labs for review, prior to treatment today. No concerns voiced at time of intake. [facility] Medical History Medical History (Updated 10/20/24 @ 14:33 by Elda Hurtado, BOOKKEEPING MACHINE OPERATOR) Breast cancer, left Immunosuppressed due to chemotherapy Pneumonia Bacteremia due to Streptococcus pneumoniae Acute anemia Pancytopenia UTI (urinary tract infection) Pneumonia Osteopenia Encounter for screening for osteoporosis Hypertension Surgical History Surgical History History of knee surgery bilateral History of lumpectomy of left breast History of cholecystectomy History of appendectomy History of hysterectomy History of foot surgery multiple bilateral Family History Family History Family/Other Breast cancer Social History Social History Smoking status: Former smoker What tobacco products do you use: cigarettes Smoking quit date/years:>15 years ago Within the past year, how often did you have a drink containing alcohol: monthly or less In the past 12 months, have you used illegal drugs or prescription drugs for non-medical reasons?: No Review of Systems ROS Details: All systems reviewed & no additional complaints except as documented General: Patient denied fevers, chills, rigors, weight loss or loss of appetite. Head: Patient denied any headaches or vision changes Thoracic: Patient denied any shortness of breath or cough or hemoptysis Cardiovascular patient denies any chest pain or leg edema GI: Patient denies any nausea vomiting rectal bleed diarrhea : Patient denied gross hematuria. Hematology: Patient denied any bleeding from any source. No easy bruising. Lymphatic: No enlarged LAP anywhere. Skin: Normal skin exam no rashes or suspicious lesions. Neurological patient denies any headache or dizziness or focal weakness or sensory changes. Physical Exam EXAM ECOG performance status 1. HEENT normocephalic atraumatic pupils are equal and round Neck supple without thyromegaly or any cervical lymphadenopathy. Chest clear to auscultation bilaterally without wheezing crackles or rhonchi Heart regular rate and rhythm S1-S2 without murmurs gallop or rub Abdomen soft nontender not distended without hepatosplenomegaly or masses clinically Extremities no edema of the lower extremities Skin without any suspicious rashes Neurological exam patient is cooperative alert and oriented x3 no focal deficits. Results - [facility] LAB RESULTS Corrected WBC 4.5 X10E3/uL (3.8-11.6) 10/29/24 13: 5 Hgb 8.9 g/dL (11.8-15.4) L 10/29/24 13:10/29/24 Hct 26.1 % (34.0-46.4) L 10/29/24 13:10/29/24 MCV 99.0 fl (80-100) 10/29/24 13:10/29/24 RDW 19.9 % (11.9-15.3) H 10/29/24 13:10/29/24 Plt Count 145 x10E3/uL (150-450) L 10/29/24 13: Sodium 137 mmol/L (136-145) 10/29/24 13:10/29/24 Potassium 3.9 mmol/L (3.5-5.1) 10/29/24 13:10/29/24 BUN 15 mg/dL (7-25) 10/29/24 13:10/29/24 Creatinine 0.77 mg/dL (0.60-1.20) 10/29/24 13:10/29/24 Glucose 109 mg/dL (70-100) H 10/29/24 13:10/29/24 Est GFR (CKD-EPI) > 60.0 mL/Min 10/29/24 13:10/29/24 Calcium 9.7 mg/dL (8.6-10.3) 10/29/24 13:10/29/24 Total Bilirubin 0.5 mg/dl (0.3-1.0) 10/29/24 13:10/29/24 AST 25 U/L (13-39) 10/29/24 13:30 10/29/24 ALT 16 U/L (7-52) 10/29/24 13:30 10/29/24 Alkaline Phosphatase 67 U/L (34-104) 10/29/24 13:30 10/29/24 Iron 81 ug/dL (50-212) 10/29/24 13:30 10/29/24 Iron Saturation 25.2 % (20-50) 10/29/24 13:30 10/29/24 Ferritin 459.1 ng/mL (11.0-306.8) H 10/29/24 13:30 10/06 01/26 Total Protein 6.9 gm/dL (6.4-8.9) 10/29/24 13:30 10/29/24 Albumin 3.9 gm/dL (3.5-5.7) 10/29/24 13:30 10/29/24 Social Determinants of Health Screening SDOH last assessed in clinic: 10/30/24 Will the patient participate in the screening?: Yes Do you worry about having a steady place to live?: No In the past 12 months, have you had to go without electric, gas, oil, or water in your home?: No Have you or anyone in your house had to go without enough food to eat?: No Has lack of reliable transportation kept you from medical appointments or from doing things needed for daily living?: No Has anyone in your support network made you feel unsafe for any reason?: No Does the patient want assistance with any of the above?: No Dictated By: Kush Glez MD DD/ 1000 Signed By: 10/30/[address] [place], [place] [id number] Evaluation note* Diagnosis Onset Date Resolution Status Admit Date Breast cancer, left acuteFebruary 2024 9:46amOsteopeniainactiveFebruary 2024 9:46am Necrotizing pneumoniaacuteFebruary 2024 1:34pmBacteremia due to Streptococcus pneumoniaeinactiveFebruary 2024 1:34pmPneumoniainactive February 2024 1:34pmAdjustment disorder with mixed anxiety and depressed moodacuteFebruary 2024 2:04pmBreast cancer, leftacuteFebruary 2024 2:04pmCancer associated painacuteFebruary 2024 2:04pmNeuropathyacute October 17, 2024 2:04pmBreast cancer, leftacuteFebruary 2024 7:45am Cancer associated painacuteFebruary 2024 7:45amNeuropathyacuteFebruary 2024 7:45amBreast cancer, leftacuteFebruary 2024 9:58amOsteopenia inactiveFebruary 2024 9:58amBreast cancer, leftacuteMarch 2024 7:52amCancer associated painacuteMarch 2024 7:52amConstipationacuteMarch 2024 7:52amNeuropathyacuteMarch 2024 7:52amBreast cancer, leftacute December 11, 2024 10:36amOsteopeniainactiveApril 2024 10:36amAdjustment disorder with mixed anxiety and depressed moodacuteApril 2024 8:51amBreast cancer, leftacuteApril 2024 8:51amCancer associated painacuteApril 2024 8:51amBreast cancer, leftacuteApril 2024 8:21amNeuropathyacuteApril 2024 8:21amBreast cancer, leftacuteApril 2024 9:37amOsteopenia inactiveApril 2024 9:37am [facility] Work Phone: 1(232) 988-819802-12-2025 [facility] [place] [address] Cancer Center Note Signed Patient: Adelina Mir MR#: [id number] : 1960 Acct:[id number] Age/Sex: 64 / F Type: REG AMB Date of Service: 10/16/24 Copies to: Michael Holley MD~ Assessment & Plan A/P (1) Breast cancer, left: (2) Osteopenia: Plan Based on the biopsy done on 01/10/2024 it reveals pT1c, pNX, ER positive, TX positive, HER2/pat negative (1+), no DCIS, tumor size of the invasive ductal carcinoma is 1.7 cm at least with positive superior margin and no lymphovascularinvasion detected. No lymph nodes included in the biopsy. Patient was referredfor further surgical resection with bilateral mastectomy by Dr. Braun and Dr. Bustamante forreconstructive surgery. - Invitae gene testing done 03/01/24 was negative. -Bone density scan done on 02/15/2024 revealed osteopenia with a T-score of -1.4 in the left femoralneck. - Oncotype Dx score was done on the biopsy tissue based on unknown gwen statusat that time revealed: - If she is node-negative: Recurrence score of 5 with distant recurrence risk at 9 years of 3% withendocrine therapy alone with less than 1% benefit from the chemo. - If Node positive and premenopausal: Recurrence score will be 5 with distantrecurrence risk at 5 years 3% with her medicine better or endocrine therapy alone and chemo benefit 2.3%. -If she is postmenopausal and node positive the recurrence score is 5 with distant recurrence risk at 5 years with AI or tamoxifen alone is 1% and chemo benefit no apparent benefit noticed as it is less than 1% only. -If she has node positive of 4 or more lymph nodes then recurrence score is 5% and the distant recurrence at 9 years is 35% with AI and tamoxifen alone. -She underwent left breast mastectomy with sentinel node biopsy 05/16/2024, skin sparing with immediate reconstruction with tissue litharge supervisor by Dr. Bustamante. Surgical path from surgery done on 05/16/2024 revealed: A. Left axillary sentinel lymph node 1 out of 2 lymph nodes positive for metastatic carcinoma with mucinous features with extranodal extension again and 1 out of 2 lymph nodes. B. Lymph nodes in the left axillary sentinel lymph node 2 of 6 lymph nodes positive for metastatic carcinoma with mucinous features with extranodal extension. Left breast mastectomy revealed invasive ductal carcinoma with mucinous featuresgrade 2, 1.4 cm in greatest dimension. Ductal carcinoma in situ low-grade cribriform Lymphovascular invasion present Focal invasive carcinoma is present within 1 mm from inked inferior margin. Resection margins negative for DCIS with 5 mm from closest deep margin. Fibrocystic changes characterized by apocrine metaplasia and usual ductal hyperplasia with adenosisand microcalcification. Skin and nipple uninvolved by DCIS or invasive cancer Stage IIA, TNM stage is pT1c, pN1a. Number of lymph nodes with macrometastasis 3 and number of lymph nodes with isolated tumor cells 0 and number of lymph nodes with micrometastasis 0. Extranodal extension is present. ER positive over 90%, TX +80%, HER2 negative (1+), Ki-67 3% Treatment plan: After discussing the above findings from the surgical path with her and considering that she has extranodal extension of 3 out of 6 lymph nodes and lymphovascular invasion positive with 1.4 cm tumor that is grade 2, I recommended adjuvant chemo using dose dense AC followed by T followed by adjuvantradiation followed by adjuvant endocrine therapy. She agreed and signed the consent. Side effects were discussed with patient. 07/31/24: She is here for 1 week toxicity check after cycle 1 of dose dense AC obtained orgiven on 07/24/2024. She tolerated C1 without any complaints but has same postnasal drainage for more than 4 weeks evenbefore chemo without sore throat or fevers. She tried Benadryl and can not take steroids due to allergy to steroids. She is scheduled for cycle 2 on 08/08/2024. Labs on 07/30/2024 revealed normal CBC with normal WBC of 5.7 normal ANC of 4.2 and unremarkable CMP. - Proceeded with cycle 2 of dose dense AC on 08/08/2024. 08/21/24: She is here for evaluation prior to her C3 of the adjuvant ddAC scheduled on 08/22/24. She had mildfatigue and had nausea for 6 days after cycle 2 of dose dense AC but not vomiting and no chest painor shortness of breath or leg edema or abdominal pain or diarrhea. She has chronic peripheral neuropathy even before chemotherapy. No fevers or current infections. Her Zofran she took daily for 6 days after cycle 2 helped her nausea. PLAN: Proceed with C3 ddAC on 08/21/24 if labs meets criteria for chemo. Continue using calcium 500 mg twice daily and vitamin D 2000 unit daily for her mild osteopenia. Next DEXA scan is in 02/2026. I asked her to take her Zofran daily for the first week after each dose dense ACgiven. Weekly CBCs and CMP. Try pepcid and Zyrtec for postnasal drainage. Returns in 2 weeks for cycle 4 of dose dense AC. After she completes 4 cycles of ddAC she then can start weekly taxol 2 weeks after C4 of AC. 09/03/24: She continues to do fairly well with treatment and will receive cycle 4 ddAC this week. Her labs remain okay for continued treatment. She will follow-up in2 weeks with Dr. Bales with plans of starting her weekly Taxol at that visit as well. 09/17/24: Patient sent to ED for worsening symptoms, will likely hold off on initiation of Taxol this week given acute concerns. 09/19/24: She is admitted with a hemoglobin of 5.6 and found to have pneumonia as well as UTI during this admission evaluation with urine culture and was transfused 2 units of packed RBC and brought her hemoglobin up to 7.7 on 09/19/2024. Her platelet on admission on 09/17/2024 was 24K on 09/17/24 and they are 38K on 09/19/24 without evidence or signs of clinical bleeding. - Medical oncology was consulted for further recommendation regarding her anemia, thrombocytopenia and left breast cancer treatment considering that she missed her week 1 of the weekly Taxol scheduled on 09/18/24. Clinically she denied any melena or rectal bleeding or gross hematuria. She denies any hemoptysis however she has some right lower chest discomfort and cough likely from her pneumonia. She has some burning with her urination as well. 10/03/24: She is here for 2 weeks follow up after hospital admission for pneumonia, UTI, severe anemia and thrombocytopenia with hgb 5.6 and plt 24K (see above). Labs on 10/03/2024 revealed hemoglobin increased to 8.9 WBC is 9.8 and a plateletcount of is back tonormal 321. CMP are normal. She is here to resume her adjuvant chemo as she was supposed to start her week 1of adjuvant weekly Taxol prior to her recent admission. - She did not start her week1 of the weekly Taxol on 10/09/24 because of generalized weakness. 10/16/24: Patient is here for to start week1 of the weekly Taxol. No new complaints. Labs on 10/15/2024 revealed stable anemia hemoglobin 8.1 with normal WBC and platelet count and normal creatinine and LFTs. PLAN: Start weekly Taxol on 10/16/24. Proceed with week 1 today. Start B1/B6/B12 50/50/500 mg for neuropathy history. Add iron pill 3 times a week. Check iron level next time. Weekly CBC. CMP every 2 weeks. RTC in 2 weeks for week 3. Patient Instructions: proceed with treatment iron labs in 2 weeks return in 2 weeks CHEMO PLAN Treatment Plan Paclitaxel 80mg/m2 Weekly x 4 weeks Clinical Indication No Indication Cycle Number Last Admin 1 of 3 Cycle Day Next Admin 28 of 28 No Active Chemotherapy History of Present Illness SHAE Sahu is a 63-year-old nice lady with history of generalized anxiety disorder, ADHD, complex regional pain syndrome of the lower extremity, essential tremor, hypertension and osteoarthritis to has idiopathic polyneuropathy and scoliosis with history of intermittent marijuana use as needed for paincontrol who was referred to our medical oncology clinic by Dr. Braun for new findings of new leftbreast invasive ductal carcinoma grade 2, ER positive, TX positive, HER2/pat negative 1+, 1.7 cm at least invasive ductal carcinoma, negative for lymphovascular invasion, positive superior margin of the invasive cancer, no DCIS presents and no lymph nodes were obtained as per the biopsy done on 01/10/2024. Patient has been having intermittent nipple discharge with possible fistula from the left breast but no nipple bleeding for several months. She hadBI-RADS 3 screening mammogram in April 2023 whichwas followed by ultrasound patient underwent initial biopsy of the suspicious left breast lesion on 07/12/2023 however results of the path of that biopsy was consistent with fibrovascular adipose tissue with no pathology present. Patient continues to have nipple discharge and Dr. Braun plan to do a lumpectomy however because of cardiac workup and clearance needed another biopsy was done on left breast underultrasound guidance and it came back also inconclusive in November 2023 which led to excisional biopsy performed on 01/10/2024. The path results of that excisionalbiopsy done on 01/10/2024 is as follows: Pathological Diagnosis 01/10/2024: Mass, left breast, 7:00, lumpectomy: Invasive ductal carcinoma. Tumor Is 1.7 Cm In Greatest Dimension. Grade 2/ Moderately Differentiated. Tumor is present at the superior surgical margin. Tumor Is less than 0.1 Cm From The anterior and lateral surgical Margins. No Evidence Of Lymphovascular Invasion. Breast Hormone Profile ER: Positive TX: Positive HER2/pat by immunostain: Negative (1+) CAP CANCER CASE SUMMARY SPECIMEN Procedure: Excision [...] (when applicable) pM categories is based on informationavailable to the pathologist at the time the report is issued. As per the AJCC (Chapter 1, 8th Ed.) it is the managing physician's responsibility to establish the final pathologic stage based upon all pertinent information, including but potentially not limited to this pathology report. pT Category: pT1c pN Category: pNx Patient denies any family history of ovarian cancer however she has a cousin with breast cancer. She has a sister with multiple lumps under her breast but there were not cancerous. No known family history of ovarian cancer however hermwashington had mesothelioma. She does not know her father side because she does not know her biological father. 05/30/24: She is here for further planning of care after her left breast mastectomy and for results of the DEXA scan and Oncotype DX. Patient was sent to Dr. Bustamante for reconstructive breast surgeries as she is electing to go for bilateral mastectomy. She was also sent to our medical oncology clinic for recommendation regarding management of her new left breast cancer that is ER positive TX positive and HER2/pat negative but nolymph nodes were obtained as of this initial consult done on 02/08/2024. Surgery date yet to be determined [address] BRAUN. - Invitae gene testing done 03/01/24 was negative. -Bone density scan done on 02/15/2024 revealed osteopenia with a T-score of -1.4 in the left femoralneck. - Oncotype Dx score was done on the biopsy tissue based on unknown gwen statusat that time revealed: - If she is node-negative: Recurrence score of 5 with distant recurrence risk at 9 years of 3% withendocrine therapy alone with less than 1% benefit from the chemo. - If Node positive and premenopausal: Recurrence score will be 5 with distantrecurrence risk at 5 years 3% with her medicine better or endocrine therapy alone and chemo benefit 2.3%. -If she is postmenopausal and node positive the recurrence score is 5 with distant recurrence risk at 5 years with AI or tamoxifen alone is 1% and chemo benefit no apparent benefit noticed as it is less than 1% only. -If she has node positive of 4 or more lymph nodes then recurrence score is 5% and the distant recurrence at 9 years is 35% with AI and tamoxifen alone. -She underwent left breast mastectomy with sentinel node biopsy 05/16/2024, skin sparing with immediate reconstruction with tissue litharge supervisor by Dr. Bustamante. Surgical path from surgery done on 05/16/2024 revealed: A. Left axillary sentinel lymph node 1 out of 2 lymph nodes positive for metastatic carcinoma with mucinous features with extranodal extension again and 1 out of 2 lymph nodes. B. Lymph nodes in the left axillary sentinel lymph node 2 of 6 lymph nodes positive for metastatic carcinoma with mucinous features with extranodal extension. Left breast mastectomy revealed invasive ductal carcinoma with mucinous featuresgrade 2, 1.4 cm in greatest dimension. Ductal carcinoma in situ low-grade cribriform Lymphovascular invasion present Focal invasive carcinoma is present within 1 mm from inked inferior margin. Resection margins negative for DCIS with 5 mm from closest deep margin. Fibrocystic changes characterized by apocrine metaplasia and usual ductal hyperplasia with adenosisand microcalcification. Skin and nipple uninvolved by DCIS or invasive cancer Stage IIA, TNM stage is pT1c, pN1a. Number of lymph nodes with macrometastasis 3 and number of lymph nodes with isolated tumor cells 0 and number of lymph nodes with micrometastasis 0. Extranodal extension is present. ER positive over 90%, TX +80%, HER2 negative (1+), Ki-67 3% 07/31/24: She is here for 1 week toxicity check after cycle 1 of dose dense AC obtained orgiven on 07/24/2024. She tolerated C1 without any complaints but has same postnasal drainage for more than 4 weeks evenbefore chemo without sore throat or fevers. She tried Benadryl and can not take steroids due to allergy to steroids. She is scheduled for cycle 2 on 08/08/2024. Labs on 07/30/2024 revealed normal CBC with normal WBC of 5.7 normal ANC of 4.2 and unremarkable CMP. 08/21/24: She is here for evaluation prior to her C3 of the adjuvant ddAC scheduled on 08/22/24. She had mildfatigue and had nausea for 6 days after cycle 2 of dose dense AC but not vomiting and no chest painor shortness of breath or leg edema or abdominal pain or diarrhea. She has chronic peripheral neuropathy even before chemotherapy. No fevers or current infections. Her Zofran she took daily for 6 days after cycle 2 helped her nausea. 14 point review of systems was obtained and was negative. 09/03/24: She presents for cycle 4 ddAC. She continues with fatigue and dyspnea if she exerts herself, otherwise no chest pain or shortness of breath at rest. No change in her neuropathy with treatment. Her nausea has better controlled now that she is taking her antiemetics regularly. She is eating and drinking ok anddenies vomiting, diarrhea, or constipation. She denies other new concerns as well. Her labs remain okay for continued treatment. 09/17/24: She presents to clinic as an add-on for worsening symptoms. Her daughter is concerned that she has pneumonia as she has been having shortness of breath and not eating much at all. Vitals today note significant hypotension and decreasedheart rate. Her oxygen levels on arrival dropped between 70s/80sand she was placed on supplemental oxygen, up to 6 L in office before her sats improved intothe 90s. She has attempted to give a urine sample as she has concern for UTI aswell, however was not able to go. Given acute symptoms, we have decided to sendher to the ED for further evaluation. 09/19/24: She is admitted with a hemoglobin of 5.6 and found to have pneumonia as well as UTI during this admission evaluation with urine culture and was transfused 2 units of packed RBC and brought her hemoglobin up to 7.7 on 09/19/2024. Her platelet on admission on 09/17/2024 was 24K on 09/17/24 and they are 38K on 09/19/24 without evidence or signs of clinical bleeding. - Medical oncology was consulted for further recommendation regarding her anemia, thrombocytopenia and left breast cancer treatment considering that she missed her week 1 of the weekly Taxol scheduled on 09/18/24. Clinically she denied any melena or rectal bleeding or gross hematuria. She denies any hemoptysis however she has some right lower chest discomfort and cough likely from her pneumonia. She has some burning with her urination as well. 10/03/24: She is here for 2 weeks follow up after hospital admission for pneumonia, UTI, severe anemia and thrombocytopenia with hgb 5.6 and plt 24K (see above). Labs on 10/03/2024 revealed hemoglobin increased to 8.9 WBC is 9.8 and a plateletcount of is back tonormal 321. CMP are normal. She is here to resume her adjuvant chemo as she was supposed to start her week 1of adjuvant weekly Taxol prior to her recent admission. She feels much better. No more SOB and no CP or bleeding from any source. 10/16/24: Patient is here for to start week1 of the weekly Taxol. No new complaints. Labs on 10/15/2024 revealed stable anemia hemoglobin 8.1 with normal WBC and platelet count and normal creatinine and LFTs. Intake Vitals/Pain Assessment 10/16/24 09:50 Weight 61.689 kg BP 186/96 H Blood Pressure Location Rt brachial Position Sitting Temp 97.8 F Temp Source Temporal Pulse 101 H Pulse Source NIBP Respiration 18 Pulse Oximetry (%) 100 Oxygen Delivery Method room air Are you having pain? No Intake Visit Reasons: f/u after feeling ill Accompanied by: Daughter Allergies Corticosteroids (Glucocorticoids) Allergy (Verified 10/03/24 15:00) Unknown Reaction metaxalone (From Skelaxin) Allergy (Verified 10/03/24 15:00) Unknown Reaction entex Allergy (Uncoded 10/03/24 15:00) Unknown Reaction Home Medications - Last Reconciled 10/16/24 by MARY Chavarria alprazolam 0.25 mg PO TID PRN amoxicillin-pot clavulanate 875-125 mg 1 tab PO BID 30 days aspirin 81 mg PO DAILY cetirizine 10 mg PO DAILY cyclobenzaprine 10 mg PO HS PRN fluticasone propionate 50 mcg/actuation 1 spray intranasal BID gabapentin 300 mg PO TID losartan 25 mg PO DAILY metoprolol succinate ER 50 mg PO DAILY naloxone 4 mg/actuation 4 mg intranasal Q2-3M PRN ondansetron 8 mg PO Q8HR PRN oxycodone-acetaminophen 5-325 mg 1 tab PO Q8HR PRN 30 days prochlorperazine maleate (Compazine) 10 mg PO Q6HR PRN Gastrointestinal Is the patient taking opioids for pain control?: Yes Bowel Protocol for Opioids Given: Yes Bowel Pattern: Regular Bowel Movement Aid(s): None Falls Fall Precaution Measures Taken: Patient in chair Nurse's Note: Patient is here for a 2 week follow up with labs for review. Scheduled for treatment today. [facility] Medical History Medical History Osteopenia Encounter for screening for osteoporosis Breast cancer, left Hypertension Surgical History Surgical History History of knee surgery bilateral History of lumpectomy of left breast History of cholecystectomy History of appendectomy History of hysterectomy History of foot surgery multiple bilateral Family History Family History Family/Other Breast cancer Social History Social History (Updated 02/08/24 @ 15:26 by MARY Chavarria) Smoking status: Former smoker What tobacco products do you use: cigarettes Smoking quit date/years:>15 years ago Within the past year, how often did you have a drink containing alcohol: monthly or less In the past 12 months, have you used illegal drugs or prescription drugs for non-medical reasons?: No Review of Systems ROS Details: All systems reviewed & no additional complaints except as documented General: Patient denied fevers, chills, rigors, weight loss or loss of appetite. Head: Patient denied any headaches or vision changes Thoracic: Patient denied any shortness of breath or cough or hemoptysis Cardiovascular patient denies any chest pain or leg edema GI: Patient denies any nausea vomiting rectal bleed diarrhea : Patient denied gross hematuria. Hematology: Patient denied any bleeding from any source. No easy bruising. Lymphatic: No enlarged LAP anywhere. Skin: Normal skin exam no rashes or suspicious lesions. Neurological patient denies any headache or dizziness or focal weakness or sensory changes. Physical Exam EXAM ECOG performance status 1. HEENT normocephalic atraumatic pupils are equal and round Neck supple without thyromegaly or any cervical lymphadenopathy. Chest clear to auscultation bilaterally without wheezing crackles or rhonchi Heart regular rate and rhythm S1-S2 without murmurs gallop or rub Abdomen soft nontender not distended without hepatosplenomegaly or masses clinically Extremities no edema of the lower extremities Skin without any suspicious rashes Neurological exam patient is cooperative alert and oriented x3 no focal deficits. Results - [facility] ([facility] LAB RESULTS Corrected WBC 10.3 X10E3/uL (3.8-11.6) 10/15/24 09: Hgb 8.1 g/dL (11.8-15.4) L 10/15/24 09:10/15/24 Hct 23.9 % (34.0-46.4) L 10/15/24:10/15/24 MCV 98.0 fl (80-100) 10/15/24:10/15/24 RDW 18.9 % (11.9-15.3) H 10/15/24:10/15/24 Plt Count 254 x10E3/uL (150-450) 10/15/24:10/15/24 Sodium 138 mmol/L (136-145) 10/15/24:10/15/24 Potassium 4.2 mmol/L (3.5-5.1) 10/15/24:10/15/24 BUN 14 mg/dL (7-25) 10/15/24:10/15/24 Creatinine 0.75 mg/dL (0.60-1.20) 10/15/24:10/15/24 Glucose 100 mg/dL (70-100) 10/15/24:10/15/24 Est GFR (CKD-EPI) > 60.0 mL/Min 10/15/24:10/15/24 Calcium 9.3 mg/dL (8.6-10.3) 10/15/24:10/15/24 Total Bilirubin 0.3 mg/dl (0.3-1.0) 10/15/24:10/15/24 AST 18 U/L (13-39) 10/15/24:10/15/24 ALT 12 U/L (7-52) 10/15/24:25 Alkaline Phosphatase 93 U/L (34-104) 10/15/24 09:59 10/15/24 Iron 30 ug/dL (50-212) L 09/24/24 04:45 09/24/24 Iron Saturation 17.8 % (20-50) L 09/24/24 04:45 09/24/24 Ferritin 2730.0 ng/mL (11.0-306.8) H 09/24/24 04:45 Total Protein 6.4 gm/dL (6.4-8.9) 10/15/24 09:59 10/15/24 Albumin 3.4 gm/dL (3.5-5.7) L 10/15/24 09:59 10/15/24 Social Determinants of Health Screening SDOH last assessed in clinic: 10/16/24 Will the patient participate in the screening?: Yes Do you worry about having a steady place to live?: No In the past 12 months, have you had to go without electric, gas, oil, or water in your home?: No Have you or anyone in your house had to go without enough food to eat?: No Has lack of reliable transportation kept you from medical appointments or from doing things needed for daily living?: No Has anyone in your support network made you feel unsafe for any reason?: No Does the patient want assistance with any of the above?: No Dictated By: Kush Glez MD DD/ [id number] Signed By: 10/16/[address] [place], [place] [id number] Radiology Diagnostic study note [facility] [place] [address] CT Scan Report Signed Patient: Adelina Mir MR#: [id number] : 1960 Acct:[id number] Age/Sex: 64 / F ADM Date: 5 Loc: CT Room: Type: [facility] Attending Dr: Roshan Reynoso MD Copies to: Roshan Reynoso MD~ Ordering Provider: Roshan Reynoso MD Date of Service: 10/07/24 CT/CT chest w con: follow up from 09/[address] CHEST WITH INTRAVENOUS CONTRAST: CLINICAL HISTORY: Follow-up for gangrenous pneumonia. Cough. COMPARISON: CTA chest 09/22/2024 TECHNIQUE: Spiral images were obtained through the chest following intravenous administration of IVcontrast. This CT exam was performed using one or more following dose reduction techniques: Automated exposure control, adjustment of the mA and/or kV according to patient size, or use of iterative reconstruction technique. FINDINGS: Mediastinum:Right-sided port is in place. Thoracic ribs is moderate calcification and soft plaquingwith associated ulceration. No aneurysm dissection or rupture. Pulmonary trunk appears nondilated. No pericardial effusion. No lymphadenopathy. The esophagus is grossly unremarkable. Lungs:Emphysema. Interval improvement involving the consolidative changes of the right middle and lower lobes as well as the left lower lobe. No new consolidation pneumothorax or pleural effusion. Tree-in-bud nodularity right lower lobe. Abd:No acute findings. Left adrenal adenoma. Soft tissues/Bones: Soft tissues demonstrate no acute process. Left mastectomy changes. Osseous structures demonstrate degenerative change. CT/CT chest w con IMPRESSION: Interval improvement evolving consolidation involving the right middle and lowerlobes as well as the left lower lobe suggestive of response to therapy. Continued follow-up is recommended to ensure resolution. Impression dictated by: Jayden Cabral Jr., D.O.10/07/2024 2:22 PM Dictation Location: [place] [address] Transcribed By: [facility] 10/07/24 1422 Dictated By: Jayden Cabral Jr, DO 10/07/24 1417 Signed By: 10/07/24 1422 [facility]01-30-2025 Evaluation note* Diagnosis Onset Date Resolution Status Admit Date Breast cancer, left acuteJanuary 2024 2:48pmOsteopeniainactiveJanuary 2024 2:48pmBreast cancer, leftacuteFebruary 2024 9:46amOsteopeniainactiveFebruary 2024 9:46amNecrotizing pneumoniaacuteFebruary 2024 1:34pmBacteremia due to Streptococcus pneumoniaeinactiveFebruary 2024 1:34pmPneumoniainactive October 17, 2024 1:34pmAdjustment disorder with mixed anxiety and depressed moodacuteFebruary 2024 2:04pmBreast cancer, leftacuteFebruary 2024 2:04pmCancer associated painacuteFebruary 2024 2:04pmNeuropathyacute October 17, 2024 2:04pmBreast cancer, leftacuteFebruary 2024 7:45am Cancer associated painacuteFebruary 2024 7:45amNeuropathyacuteFebruary 2024 7:45amBreast cancer, leftacuteFebruary 2024 9:58amOsteopenia inactiveFebruary 2024 9:58amBreast cancer, leftacuteMarch 2024 7:52amCancer associated painacuteMarch 2024 7:52amConstipationacuteMarch 2024 7:52amNeuropathyacuteMarch 2024 7:52amBreast cancer, leftacute Corazon 2024 10:36amOsteopeniainactiveApril 2024 10:36amAdjustment disorder with mixed anxiety and depressed moodacuteApril 2024 8:51amBreast cancer, leftacuteApril 2024 8:51amCancer associated painacuteApril 2024 8:51am [facility] Work Phone: 1(316) 346-591001-30-2025 Evaluation note* Diagnosis Onset Date Resolution Status Admit Date Breast cancer, left acuteJanuary 2024 2:48pmOsteopeniainactiveJanuary 2024 2:48pmBreast cancer, leftacuteFebruary 2024 9:46amOsteopeniainactiveFebruary 2024 9:46amNecrotizing pneumoniaacuteFebruary 2024 1:34pmBacteremia due to Streptococcus pneumoniaeinactiveFebruary 2024 1:34pmPneumoniainactive October 17, 2024 1:34pmAdjustment disorder with mixed anxiety and depressed moodacuteFebruary 2024 2:04pmBreast cancer, leftacuteFebruary 2024 2:04pmCancer associated painacuteFebruary 2024 2:04pmNeuropathyacute October 17, 2024 2:04pmBreast cancer, leftacuteFebruary 2024 7:45am Cancer associated painacuteFebruary 2024 7:45amNeuropathyacuteFebruary 2024 7:45amBreast cancer, leftacuteFebruary 2024 9:58amOsteopenia inactiveFebruary 2024 9:58amBreast cancer, leftacuteMarch 2024 7:52amCancer associated painacuteMarch 2024 7:52amConstipationacuteMarch 2024 7:52amNeuropathyacuteMarch 2024 7:52amBreast cancer, leftacute December 11, 2024 10:36amOsteopeniainactiveApril 2024 10:36amAdjustment disorder with mixed anxiety and depressed moodacuteApril 2024 8:51amBreast cancer, leftacuteApril 2024 8:51amCancer associated painacuteApril 2024 8:51amCancer associated painacuteApril 2024 7:46amNeuropathyacute December 25, 2024 7:46am [facility] Work Phone: 1(593) 326-788601-30-2025 Evaluation note* Diagnosis Onset Date Resolution Status Admit Date Breast cancer, left acuteJanuary 2024 2:48pmOsteopeniainactiveJanuary 2024 2:48pmBreast cancer, leftacuteFebruary 2024 9:46amOsteopeniainactiveFebruary 2024 9:46amNecrotizing pneumoniaacuteFebruary 2024 1:34pmBacteremia due to Streptococcus pneumoniaeinactiveFebruary 2024 1:34pmPneumoniainactive October 17, 2024 1:34pmAdjustment disorder with mixed anxiety and depressed moodacuteFebruary 2024 2:04pmBreast cancer, leftacuteFebruary 2024 2:04pmCancer associated painacuteFebruary 2024 2:04pmNeuropathyacute October 17, 2024 2:04pmBreast cancer, leftacuteFebruary 2024 7:45am Cancer associated painacuteFebruary 2024 7:45amNeuropathyacuteFebruary 2024 7:45amBreast cancer, leftacuteFebruary 2024 9:58amOsteopenia inactiveFebruary 2024 9:58amBreast cancer, leftacuteMarch 2024 7:52amCancer associated painacuteMarch 2024 7:52amConstipationacuteMarch 2024 7:52amNeuropathyacuteMarch 2024 7:52amBreast cancer, leftacute Corazon 2024 10:36amOsteopeniainactiveApril 2024 10:36amAdjustment disorder with mixed anxiety and depressed moodacuteApril 2024 8:51amBreast cancer, leftacuteApril 2024 8:51amCancer associated painacuteApril 2024 8:51amAdjustment disorder with mixed anxiety and depressed moodacuteApril 2024 8:21amBreast cancer, leftacuteApril 2024 8:21amCancer associated painacuteApril 2024 8:21amNeuropathyacuteApril 2024 8:21amBreast cancer, leftacuteApril 2024 9:37amOsteopeniainactiveApril 2024 9:37am [facility] Work Phone: 1(136) 758-353501-30-2025 [facility] [place] [address] Cancer Center Note Signed Patient: Adelina Mir MR#: [id number] : 1960 Acct:[id number] Age/Sex: 64 / F Type: REG AMB Date of Service: 10/03/24 Copies to: Michael Holley MD~ Assessment & Plan A/P (1) Breast cancer, left: (2) Osteopenia: Plan Based on the biopsy done on 01/10/2024 it reveals pT1c, pNX, ER positive, TX positive, HER2/pat negative (1+), no DCIS, tumor size of the invasive ductal carcinoma is 1.7 cm at least with positive superior margin and no lymphovascularinvasion detected. No lymph nodes included in the biopsy. Patient was referredfor further surgical resection with bilateral mastectomy by Dr. Braun and Dr. Bustamante forreconstructive surgery. - Invitae gene testing done 03/01/24 was negative. -Bone density scan done on 02/15/2024 revealed osteopenia with a T-score of -1.4 in the left femoralneck. - Oncotype Dx score was done on the biopsy tissue based on unknown gwen statusat that time revealed: - If she is node-negative: Recurrence score of 5 with distant recurrence risk at 9 years of 3% withendocrine therapy alone with less than 1% benefit from the chemo. - If Node positive and premenopausal: Recurrence score will be 5 with distantrecurrence risk at 5 years 3% with her medicine better or endocrine therapy alone and chemo benefit 2.3%. -If she is postmenopausal and node positive the recurrence score is 5 with distant recurrence risk at 5 years with AI or tamoxifen alone is 1% and chemo benefit no apparent benefit noticed as it is less than 1% only. -If she has node positive of 4 or more lymph nodes then recurrence score is 5% and the distant recurrence at 9 years is 35% with AI and tamoxifen alone. -She underwent left breast mastectomy with sentinel node biopsy 05/16/2024, skin sparing with immediate reconstruction with tissue litharge supervisor by Dr. Bustamante. Surgical path from surgery done on 05/16/2024 revealed: A. Left axillary sentinel lymph node 1 out of 2 lymph nodes positive for metastatic carcinoma with mucinous features with extranodal extension again and 1 out of 2 lymph nodes. B. Lymph nodes in the left axillary sentinel lymph node 2 of 6 lymph nodes positive for metastatic carcinoma with mucinous features with extranodal extension. Left breast mastectomy revealed invasive ductal carcinoma with mucinous featuresgrade 2, 1.4 cm in greatest dimension. Ductal carcinoma in situ low-grade cribriform Lymphovascular invasion present Focal invasive carcinoma is present within 1 mm from inked inferior margin. Resection margins negative for DCIS with 5 mm from closest deep margin. Fibrocystic changes characterized by apocrine metaplasia and usual ductal hyperplasia with adenosisand microcalcification. Skin and nipple uninvolved by DCIS or invasive cancer Stage IIA, TNM stage is pT1c, pN1a. Number of lymph nodes with macrometastasis 3 and number of lymph nodes with isolated tumor cells 0 and number of lymph nodes with micrometastasis 0. Extranodal extension is present. ER positive over 90%, TX +80%, HER2 negative (1+), Ki-67 3% Treatment plan: After discussing the above findings from the surgical path with her and considering that she has extranodal extension of 3 out of 6 lymph nodes and lymphovascular invasion positive with 1.4 cm tumor that is grade 2, I recommended adjuvant chemo using dose dense AC followed by T followed by adjuvantradiation followed by adjuvant endocrine therapy. She agreed and signed the consent. Side effects were discussed with patient. 07/31/24: She is here for 1 week toxicity check after cycle 1 of dose dense AC obtained orgiven on 07/24/2024. She tolerated C1 without any complaints but has same postnasal drainage for more than 4 weeks evenbefore chemo without sore throat or fevers. She tried Benadryl and can not take steroids due to allergy to steroids. She is scheduled for cycle 2 on 08/08/2024. Labs on 07/30/2024 revealed normal CBC with normal WBC of 5.7 normal ANC of 4.2 and unremarkable CMP. - Proceeded with cycle 2 of dose dense AC on 08/08/2024. 08/21/24: She is here for evaluation prior to her C3 of the adjuvant ddAC scheduled on 08/22/24. She had mildfatigue and had nausea for 6 days after cycle 2 of dose dense AC but not vomiting and no chest painor shortness of breath or leg edema or abdominal pain or diarrhea. She has chronic peripheral neuropathy even before chemotherapy. No fevers or current infections. Her Zofran she took daily for 6 days after cycle 2 helped her nausea. PLAN: Proceed with C3 ddAC on 08/21/24 if labs meets criteria for chemo. Continue using calcium 500 mg twice daily and vitamin D 2000 unit daily for her mild osteopenia. Next DEXA scan is in 02/2026. I asked her to take her Zofran daily for the first week after each dose dense ACgiven. Weekly CBCs and CMP. Try pepcid and Zyrtec for postnasal drainage. Returns in 2 weeks for cycle 4 of dose dense AC. After she completes 4 cycles of ddAC she then can start weekly taxol 2 weeks after C4 of AC. 09/03/24: She continues to do fairly well with treatment and will receive cycle 4 ddAC this week. Her labs remain okay for continued treatment. She will follow-up in2 weeks with Dr. Balse with plans of starting her weekly Taxol at that visit as well. 09/17/24: Patient sent to ED for worsening symptoms, will likely hold off on initiation of Taxol this week given acute concerns. 09/19/24: She is admitted with a hemoglobin of 5.6 and found to have pneumonia as well as UTI during this admission evaluation with urine culture and was transfused 2 units of packed RBC and brought her hemoglobin up to 7.7 on 09/19/2024. Her platelet on admission on 09/17/2024 was 24K on 09/17/24 and they are 38K on 09/19/24 without evidence or signs of clinical bleeding. - Medical oncology was consulted for further recommendation regarding her anemia, thrombocytopenia and left breast cancer treatment considering that she missed her week 1 of the weekly Taxol scheduled on 09/18/24. Clinically she denied any melena or rectal bleeding or gross hematuria. She denies any hemoptysis however she has some right lower chest discomfort and cough likely from her pneumonia. She has some burning with her urination as well. 10/03/24: She is here for 2 weeks follow up after hospital admission for pneumonia, UTI, severe anemia and thrombocytopenia with hgb 5.6 and plt 24K (see above). Labs on 10/03/2024 revealed hemoglobin increased to 8.9 WBC is 9.8 and a plateletcount of is back tonormal 321. CMP are normal. She is here to resume her adjuvant chemo as she was supposed to start her week 1of adjuvant weekly Taxol prior to her recent admission. PLAN: Resume weekly Taxol as of week 1 on 10/09/24. Start B1/B6/B12 50/50/500 mg for neuropathy history. Weekly CBC. CMP every 2 weeks. RTC on week 3. Orders: Orders Comprehensive Metabolic Panel Today C50.912 - Malignant neoplasm of unspecifiedsite of left female breast, D61.818 - Other pancytopenia Complete Blood Count Auto Diff Today C50.912 - Malignant neoplasm of unspecified site of left female breast, D61.818 - Other pancytopenia Patient Instructions: Taxol cycle 1 on 10/09 return in 3 weeks CHEMO PLAN Treatment Plan Paclitaxel 80mg/m2 Weekly x 4 weeks [Holding Sep 23] Clinical Indication No Indication Cycle Number Last Admin 1 of 3 Cycle Day Next Admin No Active Chemotherapy History of Present Illness SHAE Sahu is a 63-year-old nice lady with history of generalized anxiety disorder, ADHD, complex regional pain syndrome of the lower extremity, essential tremor, hypertension and osteoarthritis to has idiopathic polyneuropathy and scoliosis with history of intermittent marijuana use as needed for paincontrol who was referred to our medical oncology clinic by Dr. Braun for new findings of new leftbreast invasive ductal carcinoma grade 2, ER positive, TX positive, HER2/pat negative 1+, 1.7 cm at least invasive ductal carcinoma, negative for lymphovascular invasion, positive superior margin of the invasive cancer, no DCIS presents and no lymph nodes were obtained as per the biopsy done on 01/10/2024. Patient has been having intermittent nipple discharge with possible fistula from the left breast but no nipple bleeding for several months. She hadBI-RADS 3 screening mammogram in April 2023 whichwas followed by ultrasound patient underwent initial biopsy of the suspicious left breast lesion on 07/12/2023 however results of the path of that biopsy was consistent with fibrovascular adipose tissue with no pathology present. Patient continues to have nipple discharge and Dr. Braun plan to do a lumpectomy however because of cardiac workup and clearance needed another biopsy was done on left breast underultrasound guidance and it came back also inconclusive in November 2023 which led to excisional biopsy performed on 01/10/2024. The path results of that excisionalbiopsy done on 01/10/2024 is as follows: Pathological Diagnosis 01/10/2024: Mass, left breast, 7:00, lumpectomy: Invasive ductal carcinoma. Tumor Is 1.7 Cm In Greatest Dimension. Grade 2/ Moderately Differentiated. Tumor is present at the superior surgical margin. Tumor Is less than 0.1 Cm From The anterior and lateral surgical Margins. No Evidence Of Lymphovascular Invasion. Breast Hormone Profile ER: Positive TX: Positive HER2/pat by immunostain: Negative (1+) CAP CANCER CASE SUMMARY SPECIMEN Procedure: Excision [...] (when applicable) pM categories is based on informationavailable to the pathologist at the time the report is issued. As per the AJCC (Chapter 1, 8th Ed.) it is the managing physician's responsibility to establish the final pathologic stage based upon all pertinent information, including but potentially not limited to this pathology report. pT Category: pT1c pN Category: pNx Patient denies any family history of ovarian cancer however she has a cousin with breast cancer. She has a sister with multiple lumps under her breast but there were not cancerous. No known family history of ovarian cancer however hermwashington had mesothelioma. She does not know her father side because she does not know her biological father. 05/30/24: She is here for further planning of care after her left breast mastectomy and for results of the DEXA scan and Oncotype DX. Patient was sent to Dr. Bustamante for reconstructive breast surgeries as she is electing to go for bilateral mastectomy. She was also sent to our medical oncology clinic for recommendation regarding management of her new left breast cancer that is ER positive TX positive and HER2/pat negative but nolymph nodes were obtained as of this initial consult done on 02/08/2024. Surgery date yet to be determined [address] BRAUN. - Invitae gene testing done 03/01/24 was negative. -Bone density scan done on 02/15/2024 revealed osteopenia with a T-score of -1.4 in the left femoralneck. - Oncotype Dx score was done on the biopsy tissue based on unknown gwen statusat that time revealed: - If she is node-negative: Recurrence score of 5 with distant recurrence risk at 9 years of 3% withendocrine therapy alone with less than 1% benefit from the chemo. - If Node positive and premenopausal: Recurrence score will be 5 with distantrecurrence risk at 5 years 3% with her medicine better or endocrine therapy alone and chemo benefit 2.3%. -If she is postmenopausal and node positive the recurrence score is 5 with distant recurrence risk at 5 years with AI or tamoxifen alone is 1% and chemo benefit no apparent benefit noticed as it is less than 1% only. -If she has node positive of 4 or more lymph nodes then recurrence score is 5% and the distant recurrence at 9 years is 35% with AI and tamoxifen alone. -She underwent left breast mastectomy with sentinel node biopsy 05/16/2024, skin sparing with immediate reconstruction with tissue litharge supervisor by Dr. Bustamante. Surgical path from surgery done on 05/16/2024 revealed: A. Left axillary sentinel lymph node 1 out of 2 lymph nodes positive for metastatic carcinoma with mucinous features with extranodal extension again and 1 out of 2 lymph nodes. B. Lymph nodes in the left axillary sentinel lymph node 2 of 6 lymph nodes positive for metastatic carcinoma with mucinous features with extranodal extension. Left breast mastectomy revealed invasive ductal carcinoma with mucinous featuresgrade 2, 1.4 cm in greatest dimension. Ductal carcinoma in situ low-grade cribriform Lymphovascular invasion present Focal invasive carcinoma is present within 1 mm from inked inferior margin. Resection margins negative for DCIS with 5 mm from closest deep margin. Fibrocystic changes characterized by apocrine metaplasia and usual ductal hyperplasia with adenosisand microcalcification. Skin and nipple uninvolved by DCIS or invasive cancer Stage IIA, TNM stage is pT1c, pN1a. Number of lymph nodes with macrometastasis 3 and number of lymph nodes with isolated tumor cells 0 and number of lymph nodes with micrometastasis 0. Extranodal extension is present. ER positive over 90%, TX +80%, HER2 negative (1+), Ki-67 3% 07/31/24: She is here for 1 week toxicity check after cycle 1 of dose dense AC obtained orgiven on 07/24/2024. She tolerated C1 without any complaints but has same postnasal drainage for more than 4 weeks evenbefore chemo without sore throat or fevers. She tried Benadryl and can not take steroids due to allergy to steroids. She is scheduled for cycle 2 on 08/08/2024. Labs on 07/30/2024 revealed normal CBC with normal WBC of 5.7 normal ANC of 4.2 and unremarkable CMP. 08/21/24: She is here for evaluation prior to her C3 of the adjuvant ddAC scheduled on 08/22/24. She had mildfatigue and had nausea for 6 days after cycle 2 of dose dense AC but not vomiting and no chest painor shortness of breath or leg edema or abdominal pain or diarrhea. She has chronic peripheral neuropathy even before chemotherapy. No fevers or current infections. Her Zofran she took daily for 6 days after cycle 2 helped her nausea. 14 point review of systems was obtained and was negative. 09/03/24: She presents for cycle 4 ddAC. She continues with fatigue and dyspnea if she exerts herself, otherwise no chest pain or shortness of breath at rest. No change in her neuropathy with treatment. Her nausea has better controlled now that she is taking her antiemetics regularly. She is eating and drinking ok anddenies vomiting, diarrhea, or constipation. She denies other new concerns as well. Her labs remain okay for continued treatment. 09/17/24: She presents to clinic as an add-on for worsening symptoms. Her daughter is concerned that she has pneumonia as she has been having shortness of breath and not eating much at all. Vitals today note significant hypotension and decreasedheart rate. Her oxygen levels on arrival dropped between 70s/80sand she was placed on supplemental oxygen, up to 6 L in office before her sats improved intothe 90s. She has attempted to give a urine sample as she has concern for UTI aswell, however was not able to go. Given acute symptoms, we have decided to sendher to the ED for further evaluation. 09/19/24: She is admitted with a hemoglobin of 5.6 and found to have pneumonia as well as UTI during this admission evaluation with urine culture and was transfused 2 units of packed RBC and brought her hemoglobin up to 7.7 on 09/19/2024. Her platelet on admission on 09/17/2024 was 24K on 09/17/24 and they are 38K on 09/19/24 without evidence or signs of clinical bleeding. - Medical oncology was consulted for further recommendation regarding her anemia, thrombocytopenia and left breast cancer treatment considering that she missed her week 1 of the weekly Taxol scheduled on 09/18/24. Clinically she denied any melena or rectal bleeding or gross hematuria. She denies any hemoptysis however she has some right lower chest discomfort and cough likely from her pneumonia. She has some burning with her urination as well. 10/03/24: She is here for 2 weeks follow up after hospital admission for pneumonia, UTI, severe anemia and thrombocytopenia with hgb 5.6 and plt 24K (see above). Labs on 10/03/2024 revealed hemoglobin increased to 8.9 WBC is 9.8 and a plateletcount of is back tonormal 321. CMP are normal. She is here to resume her adjuvant chemo as she was supposed to start her week 1of adjuvant weekly Taxol prior to her recent admission. She feels much better. No more SOB and no CP or bleeding from any source. Intake Vitals/Pain Assessment 10/03/24 14:55 Weight 57.606 kg BP 137/84 Blood Pressure Location Rt brachial Position Sitting Temp 97.8 F Temp Source Temporal Pulse 100 Pulse Source NIBP Respiration 18 Pulse Oximetry (%) 97 Oxygen Delivery Method room air Intake Visit Reasons: 2WK INPT FOLLOW UP Accompanied by: Daughter Allergies Corticosteroids (Glucocorticoids) Allergy (Verified 10/03/24 15:00) Unknown Reaction metaxalone (From Skelaxin) Allergy (Verified 10/03/24 15:00) Unknown Reaction entex Allergy (Uncoded 10/03/24 15:00) Unknown Reaction - Last Reconciled 10/03/24 by MARY Chavarria alprazolam 0.25 mg PO TID PRN amoxicillin-pot clavulanate 875-125 mg 1 tab PO BID 30 days aspirin 81 mg PO DAILY cetirizine 10 mg PO DAILY cyclobenzaprine 10 mg PO HS PRN fluticasone propionate 50 mcg/actuation 1 spray intranasal BID gabapentin 300 mg PO TID losartan 25 mg PO DAILY metoprolol succinate ER 50 mg PO DAILY naloxone 4 mg/actuation 4 mg intranasal Q2-3M PRN ondansetron 8 mg PO Q8HR PRN oxycodone-acetaminophen 5-325 mg 1 tab PO Q8HR PRN 30 days prochlorperazine maleate (Compazine) 10 mg PO Q6HR PRN Gastrointestinal Is the patient taking opioids for pain control?: Yes Bowel Protocol for Opioids Given: Yes Bowel Pattern: Regular Bowel Movement Aid(s): None Falls Fall Precaution Measures Taken: Patient in chair Nurse's Note: Patient is here for a 2 week follow up with labs for review. States she is feeling much better. [facility] Medical History Medical History Osteopenia Encounter for screening for osteoporosis Breast cancer, left Hypertension Surgical History Surgical History History of knee surgery bilateral History of lumpectomy of left breast History of cholecystectomy History of appendectomy History of hysterectomy History of foot surgery multiple bilateral Family History Family History Family/Other Breast cancer Social History Social History (Updated 02/08/24 @ 15:26 by MARY Chavarria) Smoking status: Former smoker What tobacco products do you use: cigarettes Smoking quit date/years:>15 years ago Within the past year, how often did you have a drink containing alcohol: monthly or less In the past 12 months, have you used illegal drugs or prescription drugs for non-medical reasons?: No Review of Systems ROS Details: All systems reviewed & no additional complaints except as documented General: Patient denied fevers, chills, rigors, weight loss or loss of appetite. Head: Patient denied any headaches or vision changes Thoracic: Patient denied any shortness of breath or cough or hemoptysis Cardiovascular patient denies any chest pain or leg edema GI: Patient denies any nausea vomiting rectal bleed diarrhea : Patient denied gross hematuria. Hematology: Patient denied any bleeding from any source. No easy bruising. Lymphatic: No enlarged LAP anywhere. Skin: Normal skin exam no rashes or suspicious lesions. Neurological patient denies any headache or dizziness or focal weakness or sensory changes. Physical Exam EXAM ECOG performance status 1. HEENT normocephalic atraumatic pupils are equal and round Neck supple without thyromegaly or any cervical lymphadenopathy. Chest clear to auscultation bilaterally without wheezing crackles or rhonchi Heart regular rate and rhythm S1-S2 without murmurs gallop or rub Abdomen soft nontender not distended without hepatosplenomegaly or masses clinically Extremities no edema of the lower extremities Skin without any suspicious rashes Neurological exam patient is cooperative alert and oriented x3 no focal deficits. Results - [facility] LAB RESULTS Corrected WBC 9.8 X10E3/uL (3.8-11.6) 10/03/24 14: 5 Hgb 8.9 g/dL (11.8-15.4) L 10/03/24 14:08 10/03/24 Hct 26.6 % (34.0-46.4) L 10/03/24 14:10/03/24 MCV 95.7 fl (80-100) 10/03/24 14:10/03/24 RDW 16.5 % (11.9-15.3) H 10/03/24 14:08 10/03/24 Plt Count 321 x10E3/uL (150-450) 10/03/24 14:08 10/03/24 Sodium 137 mmol/L (136-145) 10/03/24 14:08 10/03/24 Potassium 4.2 mmol/L (3.5-5.1) 10/03/24 14:10/03/24 BUN 14 mg/dL (7-25) 10/03/24 14:10/03/24 Creatinine 0.74 mg/dL (0.60-1.20) 10/03/24 14:10/03/24 Glucose 108 mg/dL (70-100) H 10/03/24 14:10/03/24 Est GFR (CKD-EPI) > 60.0 mL/Min 10/03/24 14:10/03/24 Calcium 9.3 mg/dL (8.6-10.3) 10/03/24 14:10/03/24 Total Bilirubin 0.5 mg/dl (0.3-1.0) 10/03/24 14:10/03/24 AST 33 U/L (13-39) 10/03/24 14:10/03/24 ALT 40 U/L (7-52) 10/03/24 14:10/03/24 Alkaline Phosphatase 102 U/L (34-104) 10/03/24 14:08 10/03/24 Iron 30 ug/dL (50-212) L 09/24/24 04:45 09/24/24 Iron Saturation 17.8 % (20-50) L 09/24/24 04:45 09/24/24 Ferritin 2730.0 ng/mL (11.0-306.8) H 09/24/24 04:45 Total Protein 7.0 gm/dL (6.4-8.9) 10/03/24 14:08 10/03/24 Albumin 3.6 gm/dL (3.5-5.7) 10/03/24 14:08 10/03/24 Social Determinants of Health Screening Social determinants of health last assessed in clinic: 10/03/24 Will the patient participate in the screening?: Yes Do you worry about having a steady place to live?: No In the past 12 months, have you had to go without electric, gas, oil, or water in your home?: No Have you or anyone in your house had to go without enough food to eat?: No Has lack of reliable transportation kept you from medical appointments or from doing things needed for daily living?: No Has anyone in your support network made you feel unsafe for any reason?: No Does the patient want assistance with any of the above?: No Dictated By: Kush Glez MD DD/ [id number] Signed By: 10/03/24 1518 [facility]01-22-2025 Progress note Author Roshan Angeles [facility] Date/TimeJanuary 2024 10:03am [place] [address] Infect. Disease Progress Note Signed Patient: Adelina Mir MR#: [id number] : 1960 Acct:[id number] Age/Sex: 64 / F Adm Date: 5 Loc: 4 Room: [address] [place] [address] Type: ADM IN Attending Dr: Joe Garcia MD Copies to: ~ Date of Service: 2024 Subjective Interval history: Patient has improved significantly over the last 2 to 3 days. Is asking to go home. Exam Physical Exam Vital Signs: Temp Pulse Resp BP Pulse Ox O2 Del Method O2 Flow Rate 98.3 F 118 H 20 154/73 H 95 Room Air 2 09/25/24 08:00 09/25/24 08:00 09/25/24 08:00 09/25/24 08:00 09/25/24 08:00 09/25/24 08:00 09/20/24 04:00 Const General: cooperative, comfortable and no acute distress Orientation: oriented x3 HEENT Head: normal to inspection Ears: hearing grossly normal bilaterally Nose: external nose normal Face and sinus: normal facial exam Mouth: oral mucosae normal Eyes General: appearance normal, both eyes and all related structures Neck Neck: normal visual inspection Chest Chest palpation & inspection: abnormal inspection of the chest (left mastectomy) Resp Effort & Inspection: cough, decreased respiratory effort and tachypneic Auscultation: rhonchi right lower Cardio Rate: regular rate and tachycardic GI Inspection: normal to inspection Palpation: soft and nontender Skin General: no rashes or lesions noted Neuro General: patient oriented x3 Extrem General: normal to inspection Objective Labs CBC/BMP: CBC, BMP 09/25/24 04:30 Corrected WBC 11.9 H Uncorrected WBC Count 11.9 H RBC 2.48 L Hgb 7.4 L Hct 22.7 L Plt Count 365 Sodium 136 Potassium 4.1 Chloride 103 Carbon Dioxide 26.9 Anion Gap 10.2 BUN 10 Creatinine 0.62 Calcium 8.5 L Labs: 09/25/24 04:30 BUN 10 Creatinine 0.62 Microbiology Microbiology: Microbiology - Results from entire visit 09/22/24 17:11 Urine - Clean-Voided Midstream Urine Culture - Final No Growth 2 Days 09/21/24 17:24 Blood - Right Hand Blood Culture - Preliminary No Growth 3 Days 09/21/24 17:28 Blood - Port Blood Culture - Preliminary No Growth 3 Days 09/18/24 15:00 Blood - Right Wrist Blood Culture - Final NO GROWTH 5 DAYS 09/18/24 14:35 Blood - Port Blood Culture - Final NO GROWTH 5 DAYS 09/17/24 13:10 Blood - Right Antecubital Blood Culture - Final Streptococcus pneumoniae 09/17/24 12:58 Blood - Port Blood Culture - Final Streptococcus pneumoniae 09/17/24 12:58 Blood - Port Bacterial ID (NA Multiplex Assay) - Final 09/17/24 13:43 Urine - Straight Cath Urine Culture - Final Escherichia coli 09/17/24 17:24 Nasopharyngeal Respiratory Panel (PCR) - Final Allergies and Medications Allergies and Active Meds Allergies Corticosteroids (Glucocorticoids) Allergy (Verified 09/17/24 12:38) Unknown Reaction metaxalone (From Skelaxin) Allergy (Verified 09/17/24 12:38) Unknown Reaction entex Allergy (Uncoded 02/08/24 15:18) Unknown Reaction Active Medications Acetaminophen (Acetaminophen 325 Mg Tablet) 650 mg PO Q6HR PRN PRN Reason: Pain Scale 1 - 3 or fever Stop: 09/17/25 15:08 Last Admin: 09/19/24 18:28 Dose: 650 mg Alprazolam (Alprazolam 0.25 Mg Tablet) 0.25 mg PO TID PRN PRN Reason: anxiety Stop: 03/16/25 16:51 Last Admin: 09/23/24 06:13 Dose: 0.25 mg Benzonatate (Benzonatate 100 Mg Capsule) 200 mg PO TID PRN PRN Reason: Cough Stop: 09/17/25 16:48 Last Admin: 09/25/24 09:23 Dose: 200 mg Cyclobenzaprine HCl (Cyclobenzaprine 10 Mg Tablet) 10 mg PO HS PRN PRN Reason: Muscle Spasticity Stop: 09/17/25 21:59 Last Admin: 09/19/24 21:45 Dose: 10 mg Fluticasone Propionate (Fluticasone Propionate Amalia 120 Amalia/16 Gm Bottle) 1 spray [facility]AL [facility] Stop: 09/17/25 20:59 Last Admin: 09/25/24 09:25 Dose: 1 spray Gabapentin (Gabapentin 300 Mg Capsule) 300 mg PO TID [facility] Stop: 09/17/25 21:59 Last Admin: 09/25/24 09:24 Dose: 300 mg Guaifenesin (Guaifenesin 600 Mg Tab.Er.12h) 1,200 mg PO BID [facility] Stop: 09/17/25 20:59 Last Admin: 09/25/24 09:24 Dose: 1,200 mg Heparin Sodium (Porcine) (Heparin 5,000 Unit/Ml Vial) 5,000 unit SUBCUT Q8HR [facility] Stop: 09/23/25 21:59 Last Admin: 09/25/24 06:41 Dose: 5,000 unit Meropenem (Merrem) 1 gm in 100 mls @ 200 mls/hr IV Q8H [facility] Last Admin: 09/25/24 09:45 Dose: 200 mls/hr Ipratropium Otis (Ipratropium Otis 0.5 Mg/2.5 Ml Vial.Neb) 0.5 mg INHALATION QID.RESP IVY Stop: 09/19/25 11:59 Last Admin: 09/25/24 05:32 Dose: Not Given Metoprolol Succinate (Metoprolol Succinate 50 Mg Tab.Er.24h) 50 mg PO DAILY [facility] Stop: 09/21/25 08:59 Last Admin: 09/25/24 09:24 Dose: 50 mg Oxycodone/Acetaminophen (Oxycodone/Acetaminophen 5-325 Mg Tablet) 1 tab PO [id number] PRN Reason: pain Last Admin: 09/25/24 09:24 Dose: 1 tab Pantoprazole Sodium (Pantoprazole 40 Mg Tablet.Dr) 40 mg PO DAILY [facility] Stop: 09/21/25 08:59 Last Admin: 09/25/24 09:23 Dose: 40 mg Prochlorperazine Edisylate (Prochlorperazine Edisylate 10 Mg/2 Ml Vial) 5 mg IV- PUSH Q4H PRN PRN Reason: Nausea And Vomiting Stop: 09/17/25 15:08 Sodium Chloride (Sodium Chloride 0.9 % 10 Ml Syringe) 0 ml IV-PUSH PRN PRN PRN Reason: Flush Stop: 09/17/25 12:36 Last Admin: 09/25/24 09:46 Dose: 10 ml A&P - Infectious Disease Assessment/Plan (1) Bacteremia due to Streptococcus pneumoniae: (2) Pneumonia: (3) Immunosuppressed due to chemotherapy: Plan White count has trended back down. Patient still with cough and shortness of breath with exertion. Patient would like to go home however. From my standpoint without any new cultures suggesting changein antibiotics warranted but plan a prolonged course of oral Augmentin approximately 4 more weeks with a follow-up CT scan at that time to reevaluate her right sided pneumonia and process that was seen. Documented By: Roshan Reynoso MD 09/25/24 9939 Signed By: <Electronically signed by MD Roshan Reynoso> 09/25/24 5033 [facility] Work Phone: 1(667) 129-887401-22-2025 [place] [address] Infect. Disease Progress Note Signed Patient: Adelina Mir MR#: [id number] : 1960 Acct:[id number] Age/Sex: 64 / F Adm Date: 5 Loc: 4P Room: [address] [place] [address] Type: ADM IN Attending Dr: Joe Garcia MD Copies to: ~ Date of Service: 2024 Subjective Interval history: Patient has improved significantly over the last 2 to 3 days. Is asking to go home. Exam Physical Exam Vital Signs: Temp Pulse Resp BP Pulse Ox O2 Del Method O2 Flow Rate 98.3 F 118 H 20 154/73 H 95 Room Air 2 09/25/24 08:00 09/25/24 08:00 09/25/24 08:00 09/25/24 08:00 09/25/24 08:00 09/25/24 08:00 09/20/24 04:00 Const General: cooperative, comfortable and no acute distress Orientation: oriented x3 HEENT Head: normal to inspection Ears: hearing grossly normal bilaterally Nose: external nose normal Face and sinus: normal facial exam Mouth: oral mucosae normal Eyes General: appearance normal, both eyes and all related structures Neck Neck: normal visual inspection Chest Chest palpation & inspection: abnormal inspection of the chest (left mastectomy) Resp Effort & Inspection: cough, decreased respiratory effort and tachypneic Auscultation: rhonchi right lower Cardio Rate: regular rate and tachycardic GI Inspection: normal to inspection Palpation: soft and nontender Skin General: no rashes or lesions noted Neuro General: patient oriented x3 Extrem General: normal to inspection Objective Labs CBC/BMP: CBC, BMP 09/25/24 04:30 Corrected WBC 11.9 H Uncorrected WBC Count 11.9 H RBC 2.48 L Hgb 7.4 L Hct 22.7 L Plt Count 365 Sodium 136 Potassium 4.1 Chloride 103 Carbon Dioxide 26.9 Anion Gap 10.2 BUN 10 Creatinine 0.62 Calcium 8.5 L Labs: 09/25/24 04:30 BUN 10 Creatinine 0.62 Microbiology Microbiology: Microbiology - Results from entire visit 09/22/24 17:11 Urine - Clean-Voided Midstream Urine Culture - Final No Growth 2 Days 09/21/24 17:24 Blood - Right Hand Blood Culture - Preliminary No Growth 3 Days 09/21/24 17:28 Blood - Port Blood Culture - Preliminary No Growth 3 Days 09/18/24 15:00 Blood - Right Wrist Blood Culture - Final NO GROWTH 5 DAYS 09/18/24 14:35 Blood - Port Blood Culture - Final NO GROWTH 5 DAYS 09/17/24 13:10 Blood - Right Antecubital Blood Culture - Final Streptococcus pneumoniae 09/17/24 12:58 Blood - Port Blood Culture - Final Streptococcus pneumoniae 09/17/24 12:58 Blood - Port Bacterial ID (NA Multiplex Assay) - Final 09/17/24 13:43 Urine - Straight Cath Urine Culture - Final Escherichia coli 09/17/24 17:24 Nasopharyngeal Respiratory Panel (PCR) - Final Allergies and Medications Allergies and Active Meds Allergies Corticosteroids (Glucocorticoids) Allergy (Verified 09/17/24 12:38) Unknown Reaction metaxalone (From Skelaxin) Allergy (Verified 09/17/24 12:38) Unknown Reaction entex Allergy (Uncoded 02/08/24 15:18) Unknown Reaction Active Medications Acetaminophen (Acetaminophen 325 Mg Tablet) 650 mg PO Q6HR PRN PRN Reason: Pain Scale 1 - 3 or fever Stop: 09/17/25 15:08 Last Admin: 09/19/24 18:28 Dose: 650 mg Alprazolam (Alprazolam 0.25 Mg Tablet) 0.25 mg PO TID PRN PRN Reason: anxiety Stop: 03/16/25 16:51 Last Admin: 09/23/24 06:13 Dose: 0.25 mg Benzonatate (Benzonatate 100 Mg Capsule) 200 mg PO TID PRN PRN Reason: Cough Stop: 09/17/25 16:48 Last Admin: 09/25/24 09:23 Dose: 200 mg Cyclobenzaprine HCl (Cyclobenzaprine 10 Mg Tablet) 10 mg PO HS PRN PRN Reason: Muscle Spasticity Stop: 09/17/25 21:59 Last Admin: 09/19/24 21:45 Dose: 10 mg Fluticasone Propionate (Fluticasone Propionate Amalia 120 Amalia/16 Gm Bottle) 1 spray INTRANASAL BIDSCH Stop: 09/17/25 20:59 Last Admin: 09/25/24 09:25 Dose: 1 spray Gabapentin (Gabapentin 300 Mg Capsule) 300 mg PO TID [facility] Stop: 09/17/25 21:59 Last Admin: 09/25/24 09:24 Dose: 300 mg Guaifenesin (Guaifenesin 600 Mg Tab.Er.12h) 1,200 mg PO BID [facility] Stop: 09/17/25 20:59 Last Admin: 09/25/24 09:24 Dose: 1,200 mg Heparin Sodium (Porcine) (Heparin 5,000 Unit/Ml Vial) 5,000 unit SUBCUT Q8HR [facility] Stop: 09/23/25 21:59 Last Admin: 09/25/24 06:41 Dose: 5,000 unit Meropenem (Merrem) 1 gm in 100 mls @ 200 mls/hr IV Q8H [facility] Last Admin: 09/25/24 09:45 Dose: 200 mls/hr Ipratropium Otis (Ipratropium Otis 0.5 Mg/2.5 Ml Vial.Neb) 0.5 mg INHALATION QID.RESP [facility] Stop: 09/19/25 11:59 Last Admin: 09/25/24 05:32 Dose: Not Given Metoprolol Succinate (Metoprolol Succinate 50 Mg Tab.Er.24h) 50 mg PO DAILY [facility] Stop: 09/21/25 08:59 Last Admin: 09/25/24 09:24 Dose: 50 mg Oxycodone/Acetaminophen (Oxycodone/Acetaminophen 5-325 Mg Tablet) 1 tab PO N5HONTA PRN Reason: pain Last Admin: 09/25/24 09:24 Dose: 1 tab Pantoprazole Sodium (Pantoprazole 40 Mg Tablet.) 40 mg PO DAILY [facility] Stop: 09/21/25 08:59 Last Admin: 09/25/24 09:23 Dose: 40 mg Prochlorperazine Edisylate (Prochlorperazine Edisylate 10 Mg/2 Ml Vial) 5 mg IV- PUSH Q4H PRN PRN Reason: Nausea And Vomiting Stop: 09/17/25 15:08 Sodium Chloride (Sodium Chloride 0.9 % 10 Ml Syringe) 0 ml IV-PUSH PRN PRN PRN Reason: Flush Stop: 09/17/25 12:36 Last Admin: 09/25/24 09:46 Dose: 10 ml A&P - Infectious Disease Assessment/Plan (1) Bacteremia due to Streptococcus pneumoniae: (2) Pneumonia: (3) Immunosuppressed due to chemotherapy: Plan White count has trended back down. Patient still with cough and shortness of breath with exertion. Patient would like to go home however. From my standpoint without any new cultures suggesting changein antibiotics warranted but plan a prolonged course of oral Augmentin approximately 4 more weeks with a follow-up CT scan at that time to reevaluate her right sided pneumonia and process that was seen. Documented By: Roshan Reynoso MD 09/25/24 0958 Signed By: 09/25/24 1003 [facility]01-21-2025 Progress note Author Joe Garcia [facility] Date/TimeJanuary 2024 1:22pm [place] [address] Hospitalist Progress Note Signed Patient: Adelina Mir MR#: [id number] : 1960 Acct:[id number] Age/Sex: 63 / F Adm Date: 5 Loc: Room: [address] [place] [address] Type: ADM IN Attending Dr: Joe Garcia MD Copies to: ~ Date of Service: 09/24/2024 Subjective Subjective Narrative: Patient was evaluated at bedside, remained afebrile overnight, WBC downtrending,still has cough, nonproductive. Hemodynamics appear to be stable. Overall feels better and improving, remained on AB. ID following. Exam Physical Exam Vital Signs: Temp Pulse Resp BP Pulse Ox O2 Del Method O2 Flow Rate 97.9 F 81 20 126/59 L 96 Room Air 2 09/24/24 12:20 09/24/24 12:20 09/24/24 12:20 09/24/24 12:20 09/24/24 12:20 09/24/24 12:20 09/20/24 04:00 Narrative: Const General: cooperative, more comfortable appearing HEENT Normal oropharyngeal mucosa without any ulcers or exudates Eyes: Conjunctiva normal Pulmonary Auscultation: Diminished breath sounds, no wheezes Chest: catheter noted on R chest Cardiovascular Rate: normal rate Rhythm: regular rhythm Heart Sounds: S1 normal, S2 normal and no murmurs GI Inspection: non-distended Palpation: soft, not firm and nontender. No rigidity or rebound. Deferred Neuro General: alert, awake and oriented x3. No obvious new focal deficit Musculoskeletal: normal range of motion Extrem General: no cyanosis, no pedal edema Psych Appearance: appropriate affect. Grossly normal, pleasant. In good spirit. Objective Lab Results 09/24/24 04:45 09/24/24 04:45 Microbiology Results Microbiology 09/22/24 17:11 Urine - Clean-Voided Midstream Urine Culture - Preliminary No Growth 1 Day 09/21/24 17:28 Blood - Port Blood Culture - Preliminary No Growth 2 Days 09/21/24 17:24 Blood - Right Hand Blood Culture - Preliminary No Growth 2 Days 09/18/24 15:00 Blood - Right Wrist Blood Culture - Final NO GROWTH 5 DAYS 09/18/24 14:35 Blood - Port Blood Culture - Final NO GROWTH 5 DAYS Meds Allergies and Active Meds Allergies Corticosteroids (Glucocorticoids) Allergy (Verified 09/17/24 12:38) Unknown Reaction metaxalone (From Skelaxin) Allergy (Verified 09/17/24 12:38) Unknown Reaction entex Allergy (Uncoded 02/08/24 15:18) Unknown Reaction Active Meds: Active Medications Generic Name Dose Route Start Last Admin Trade Name Freq PRN Reason Stop Dose Admin Acetaminophen 650 mg 09/17/24 15:09 09/19/24 18:28 Acetaminophen 325 Mg Tablet PO 09/17/25 15:08 650 mg Q6HR PRN Administration Pain Scale 1 - 3 or fever Alprazolam 0.25 mg 09/17/24 16:52 09/23/24 06:13 Alprazolam 0.25 Mg Tablet PO 03/16/25 16:51 0.25 mg TID PRN Administration anxiety Benzonatate 200 mg 09/17/24 16:49 09/24/24 02:17 Benzonatate 100 Mg Capsule PO 09/17/25 16:48 200 mg TID PRN Administration Cough Cyclobenzaprine HCl 10 mg 09/17/24 22:00 09/19/24 21:45 Cyclobenzaprine 10 Mg Tablet PO 09/17/25 21:59 10 mg HS PRN Administration Muscle Spasticity Fluticasone Propionate 1 spray 09/17/24 21:00 09/24/24 08:47 Fluticasone Propionate Amalia 120 Amalia/16 Gm Bottle INTRANASAL 09/17/25 20:59 1 spray BID IVY Administration Gabapentin 300 mg 09/17/24 22:00 09/24/24 08:46 Gabapentin 300 Mg Capsule PO 09/17/25 21:59 300 mg TID IVY Administration Guaifenesin 1,200 mg 09/17/24 21:00 09/24/24 08:46 Guaifenesin 600 Mg Tab.Er.12h PO 09/17/25 20:59 1,200 mg BID IVY Administration Heparin Sodium (Porcine) 5,000 unit 09/23/24 22:00 09/24/24 05:54 Heparin 5,000 Unit/Ml Vial SUBCUT 09/23/25 21:59 5,000 unit Q8HR IVY Administration Meropenem 1 gm in 100 mls @ 200 mls/hr 09/24/24 18:00 Merrem IV Q8H IVY Ipratropium Otis 0.5 mg 09/19/24 12:00 09/24/24 11:59 Ipratropium Otis 0.5 Mg/2.5 Ml Vial.Neb INHALATION 09/19/25 11:59 Not Given QID.RESP IVY Metoprolol Succinate 50 mg 09/21/24 09:00 09/24/24 08:46 Metoprolol Succinate 50 Mg Tab.Er.24h PO 09/21/25 08:59 50 mg DAILY IVY Administration Morphine Sulfate 2 mg 09/17/24 15:09 09/23/24 07:37 Morphine Sulfate 2 Mg/Ml Vial IV-PUSH 2 mg Q4H PRN Administration Pain Scale 8 - 10 Oxycodone/Acetaminophen 1 tab 09/17/24 16:52 09/24/24 05:53 Oxycodone/Acetaminophen 5-325 Mg Tablet PO 1 tab Q8HR PRN Administration pain Pantoprazole Sodium 40 mg 09/21/24 09:00 09/24/24 08:47 Pantoprazole 40 Mg Tablet.Dr PO 09/21/25 08:59 40 mg DAILY IVY Administration Prochlorperazine Edisylate 5 mg 09/17/24 15:09 Prochlorperazine Edisylate 10 Mg/2 Ml Vial IV-PUSH 09/17/25 15:08 Q4H PRN Nausea And Vomiting Sodium Chloride 0 ml 09/17/24 12:37 09/24/24 12:21 Sodium Chloride 0.9 % 10 Ml Syringe IV-PUSH 09/17/25 12:36 10 ml PRN PRN Administration Flush A&P - Hospitalist Assessment/Plan (1) Pancytopenia: (2) UTI (urinary tract infection): (3) Pneumonia: (4) Acute anemia: Plan Acute hypoxic respiratory failure secondary to right-sided pneumonia (RML and RLL), concern for early necrotic PNA vs abscess Known recent diagnosis of breast cancer on chemo (4 rounds, last dose 09/05/24) Hypotensive on admission Strep pneumonia bacteremia- resolved PE ruled out Immunocompromised state -Afebrile, WBC uptrended to 16.9 -CT chest no PE, has consolidation RML and RLL -Repeat CT chest reviewed. -Antitussive agents as needed as directed -Initial blood cx showed strep pneumonia. Repeat Blood culture negative to date. -Oxygen supplements as needed -Monitor for fever/leukocytosis -ID following. AB switched to meropenem given above new findings. cardiothoracicconsulted, no indication for surgical intervention at this time, advised to continue conservative management. ROSAMARIA likely secondary to volume depletion due to poor oral intake - improving Acute cystitis Hyponatremia/hypokalemia/metabolic alkalosis -Urine culture E.coli. continue AB. -Repeat urine cx negative to date -Optimized electrolytes to keep K>4, Mg>2, P>3 Acute anemia Acute thrombocytopenia - recovered -Likely chemo induced -Ordered 2 units of blood in ER. H/H improved and been stable. -PLT count 24 on admission. PLT back to normal. no signs of overt GI bleed or any active bleed. monitor for now. Elevated troponin likely demand ischemia due to ROSAMARIA, infectious process, severe volume depletion -Trend trop> flat curve -Recent Echo seems normal EF and LV function. Elevated LFTs likely due to sepsis/bacteremia -downtrending -Monitor for now Home medications resumed as appropriate Diet: regular DVT ppx: SCDs, added heparin SQ GI ppx: PPI Code status: Full Status: inpatient Discussed with patient at bedside. All questions answered. In agreement with theabove plan Joe Dinero MD Internal Medicine Hospitalist Attending Physician Documented By: Joe Garcia MD 09/24/24 13 20 Signed By: <Electronically signed by Joe Garcia MD> 09/24/[address] [place] [address] Work Phone: 1([phone]) 457-960801-21-2025 [place] [address] Hospitalist Progress Note Signed Patient: Adelina Mir MR#: [id number] : 1960 Acct:[id number] Age/Sex: 63 / F Adm Date: 5 Loc: 4 Room: [address] [place] [address] Type: ADM IN Attending Dr: Joe Garcia MD Copies to: ~ Date of Service: 09/24/2024 Subjective Subjective Narrative: Patient was evaluated at bedside, remained afebrile overnight, WBC downtrending,still has cough, nonproductive. Hemodynamics appear to be stable. Overall feels better and improving, remained on AB. ID following. Exam Physical Exam Vital Signs: Temp Pulse Resp BP Pulse Ox O2 Del Method O2 Flow Rate 97.9 F 81 20 126/59 L 96 Room Air 2 09/24/24 12:20 09/24/24 12:20 09/24/24 12:20 09/24/24 12:20 09/24/24 12:20 09/24/24 12:20 09/20/24 04:00 Narrative: Const General: cooperative, more comfortable appearing HEENT Normal oropharyngeal mucosa without any ulcers or exudates Eyes: Conjunctiva normal Pulmonary Auscultation: Diminished breath sounds, no wheezes Chest: catheter noted on R chest Cardiovascular Rate: normal rate Rhythm: regular rhythm Heart Sounds: S1 normal, S2 normal and no murmurs GI Inspection: non-distended Palpation: soft, not firm and nontender. No rigidity or rebound. Deferred Neuro General: alert, awake and oriented x3. No obvious new focal deficit Musculoskeletal: normal range of motion Extrem General: no cyanosis, no pedal edema Psych Appearance: appropriate affect. Grossly normal, pleasant. In good spirit. Objective Lab Results 09/24/24 04:45 09/24/24 04:45 Microbiology Results Microbiology 09/22/24 17:11 Urine - Clean-Voided Midstream Urine Culture - Preliminary No Growth 1 Day 09/21/24 17:28 Blood - Port Blood Culture - Preliminary No Growth 2 Days 09/21/24 17:24 Blood - Right Hand Blood Culture - Preliminary No Growth 2 Days 09/18/24 15:00 Blood - Right Wrist Blood Culture - Final NO GROWTH 5 DAYS 09/18/24 14:35 Blood - Port Blood Culture - Final NO GROWTH 5 DAYS Meds Allergies and Active Meds Allergies Corticosteroids (Glucocorticoids) Allergy (Verified 09/17/24 12:38) Unknown Reaction metaxalone (From Skelaxin) Allergy (Verified 09/17/24 12:38) Unknown Reaction entex Allergy (Uncoded 02/08/24 15:18) Unknown Reaction Active Meds: Active Medications Generic Name Dose Route Start Last Admin Trade Name Freq PRN Reason Stop Dose Admin Acetaminophen 650 mg 09/17/24 15:09 09/19/24 18:28 Acetaminophen 325 Mg Tablet PO 09/17/25 15:08 650 mg Q6HR PRN Administration Pain Scale 1 - 3 or fever Alprazolam 0.25 mg 09/17/24 16:52 09/23/24 06:13 Alprazolam 0.25 Mg Tablet PO 03/16/25 16:51 0.25 mg TID PRN Administration anxiety Benzonatate 200 mg 09/17/24 16:49 09/24/24 02:17 Benzonatate 100 Mg Capsule PO 09/17/25 16:48 200 mg TID PRN Administration Cough Cyclobenzaprine HCl 10 mg 09/17/24 22:00 09/19/24 21:45 Cyclobenzaprine 10 Mg Tablet PO 09/17/25 21:59 10 mg HS PRN Administration Muscle Spasticity Fluticasone Propionate 1 spray 09/17/24 21:00 09/24/24 08:47 Fluticasone Propionate Amalia 120 Amalia/16 Gm Bottle INTRANASAL 09/17/25 20:59 1 spray BID IVY Administration Gabapentin 300 mg 09/17/24 22:00 09/24/24 08:46 Gabapentin 300 Mg Capsule PO 09/17/25 21:59 300 mg TID IVY Administration Guaifenesin 1,200 mg 09/17/24 21:00 09/24/24 08:46 Guaifenesin 600 Mg Tab.Er.12h PO 09/17/25 20:59 1,200 mg BID IVY Administration Heparin Sodium (Porcine) 5,000 unit 09/23/24 22:00 09/24/24 05:54 Heparin 5,000 Unit/Ml Vial SUBCUT 09/23/25 21:59 5,000 unit Q8HR IVY Administration Meropenem 1 gm in 100 mls @ 200 mls/hr 09/24/24 18:00 Merrem IV Q8H IVY Ipratropium Otis 0.5 mg 09/19/24 12:00 09/24/24 11:59 Ipratropium Otis 0.5 Mg/2.5 Ml Vial.Neb INHALATION 09/19/25 11:59 Not Given QID.RESP IVY Metoprolol Succinate 50 mg 09/21/24 09:00 09/24/24 08:46 Metoprolol Succinate 50 Mg Tab.Er.24h PO 09/21/25 08:59 50 mg DAILY IVY Administration Morphine Sulfate 2 mg 09/17/24 15:09 09/23/24 07:37 Morphine Sulfate 2 Mg/Ml Vial IV-PUSH 2 mg Q4H PRN Administration Pain Scale 8 - 10 Oxycodone/Acetaminophen 1 tab 09/17/24 16:52 09/24/24 05:53 Oxycodone/Acetaminophen 5-325 Mg Tablet PO 1 tab Q8HR PRN Administration pain Pantoprazole Sodium 40 mg 09/21/24 09:00 09/24/24 08:47 Pantoprazole 40 Mg Tablet.Dr PO 09/21/25 08:59 40 mg DAILY IVY Administration Prochlorperazine Edisylate 5 mg 09/17/24 15:09 Prochlorperazine Edisylate 10 Mg/2 Ml Vial IV-PUSH 09/17/25 15:08 Q4H PRN Nausea And Vomiting Sodium Chloride 0 ml 09/17/24 12:37 09/24/24 12:21 Sodium Chloride 0.9 % 10 Ml Syringe IV-PUSH 09/17/25 12:36 10 ml PRN PRN Administration Flush A&P - Hospitalist Assessment/Plan (1) Pancytopenia: (2) UTI (urinary tract infection): (3) Pneumonia: (4) Acute anemia: Plan Acute hypoxic respiratory failure secondary to right-sided pneumonia (RML and RLL), concern for early necrotic PNA vs abscess Known recent diagnosis of breast cancer on chemo (4 rounds, last dose 09/05/24) Hypotensive on admission Strep pneumonia bacteremia- resolved PE ruled out Immunocompromised state -Afebrile, WBC uptrended to 16.9 -CT chest no PE, has consolidation RML and RLL -Repeat CT chest reviewed. -Antitussive agents as needed as directed -Initial blood cx showed strep pneumonia. Repeat Blood culture negative to date. -Oxygen supplements as needed -Monitor for fever/leukocytosis -ID following. AB switched to meropenem given above new findings. cardiothoracicconsulted, no indication for surgical intervention at this time, advised to continue conservative management. ROSAMARIA likely secondary to volume depletion due to poor oral intake - improving Acute cystitis Hyponatremia/hypokalemia/metabolic alkalosis -Urine culture E.coli. continue AB. -Repeat urine cx negative to date -Optimized electrolytes to keep K>4, Mg>2, P>3 Acute anemia Acute thrombocytopenia - recovered -Likely chemo induced -Ordered 2 units of blood in ER. H/H improved and been stable. -PLT count 24 on admission. PLT back to normal. no signs of overt GI bleed or any active bleed. monitor for now. Elevated troponin likely demand ischemia due to ROSAMARIA, infectious process, severe volume depletion -Trend trop> flat curve -Recent Echo seems normal EF and LV function. Elevated LFTs likely due to sepsis/bacteremia -downtrending -Monitor for now Home medications resumed as appropriate Diet: regular DVT ppx: SCDs, added heparin SQ GI ppx: PPI Code status: Full Status: inpatient Discussed with patient at bedside. All questions answered. In agreement with theabove plan Joe Dinero MD Internal Medicine Hospitalist Attending Physician Documented By: Joe Garcia MD 09/24/24 13 20 Signed By: 09/24/[address] [place], [place] 6201901-21-2025 Progress note Author Roshan Reynoso [facility] Date/TimeJanuary 2024 10:11am [place] [address] Infect. Disease Progress Note Signed Patient: Adelina Mir MR#: [id number] : 1960 Acct:[id number] Age/Sex: 63 / F Adm Date: 5 Loc: Room: [address] [place] [address] Type: ADM IN Attending Dr: Joe Garcia MD Copies to: ~ Date of Service: 09/24/2024 Subjective Interval history: Patient remains on room air oxygen. Still tells me she is coughing a lot and has the pain on the right side if she coughs. Afebrile overnight Exam Physical Exam Vital Signs: Temp Pulse Resp BP Pulse Ox O2 Del Method O2 Flow Rate 98.2 F 83 20 150/67 H 96 Room Air 2 09/24/24 08:44 09/24/24 08:44 09/24/24 08:44 09/24/24 08:44 09/24/24 08:44 09/24/24 08:44 09/20/24 04:00 Const General: cooperative Orientation: oriented x3 HEENT Head: normal to inspection Ears: hearing grossly normal bilaterally Nose: external nose normal Face and sinus: normal facial exam Mouth: oral mucosae normal Eyes General: appearance normal, both eyes and all related structures Neck Neck: normal visual inspection Chest Chest palpation & inspection: abnormal inspection of the chest (left mastectomy) Resp Effort & Inspection: cough and decreased respiratory effort Auscultation: rhonchi right lower Cardio Rate: regular rate GI Inspection: normal to inspection Palpation: soft and nontender Skin General: no rashes or lesions noted Neuro General: patient oriented x3 Extrem General: normal to inspection Objective Labs CBC/BMP: CBC, BMP 09/24/24 04:45 Corrected WBC 16.9 H Uncorrected WBC Count 16.9 H RBC 2.53 L Hgb 7.7 L Hct 23.2 L Plt Count 316 Sodium 135 L Potassium 4.0 Chloride 102 Carbon Dioxide 24.7 Anion Gap 12.3 BUN 10 Creatinine 0.62 Calcium 8.6 Labs: 09/24/24 04:45 BUN 10 Creatinine 0.62 Microbiology Microbiology: Microbiology - Results from entire visit 09/22/24 17:11 Urine - Clean-Voided Midstream Urine Culture - Preliminary No Growth 1 Day 09/21/24 17:28 Blood - Port Blood Culture - Preliminary No Growth 2 Days 09/21/24 17:24 Blood - Right Hand Blood Culture - Preliminary No Growth 2 Days 09/18/24 15:00 Blood - Right Wrist Blood Culture - Final NO GROWTH 5 DAYS 09/18/24 14:35 Blood - Port Blood Culture - Final NO GROWTH 5 DAYS 09/17/24 13:10 Blood - Right Antecubital Blood Culture - Final Streptococcus pneumoniae 09/17/24 12:58 Blood - Port Blood Culture - Final Streptococcus pneumoniae 09/17/24 12:58 Blood - Port Bacterial ID (NA Multiplex Assay) - Final 09/17/24 13:43 Urine - Straight Cath Urine Culture - Final Escherichia coli 09/17/24 17:24 Nasopharyngeal Respiratory Panel (PCR) - Final Allergies and Medications Allergies and Active Meds Allergies Corticosteroids (Glucocorticoids) Allergy (Verified 09/17/24 12:38) Unknown Reaction metaxalone (From Skelaxin) Allergy (Verified 09/17/24 12:38) Unknown Reaction entex Allergy (Uncoded 02/08/24 15:18) Unknown Reaction Active Medications Acetaminophen (Acetaminophen 325 Mg Tablet) 650 mg PO Q6HR PRN PRN Reason: Pain Scale 1 - 3 or fever Stop: 09/17/25 15:08 Last Admin: 09/19/24 18:28 Dose: 650 mg Alprazolam (Alprazolam 0.25 Mg Tablet) 0.25 mg PO TID PRN PRN Reason: anxiety Stop: 03/16/25 16:51 Last Admin: 09/23/24 06:13 Dose: 0.25 mg Benzonatate (Benzonatate 100 Mg Capsule) 200 mg PO TID PRN PRN Reason: Cough Stop: 09/17/25 16:48 Last Admin: 09/24/24 02:17 Dose: 200 mg Cyclobenzaprine HCl (Cyclobenzaprine 10 Mg Tablet) 10 mg PO HS PRN PRN Reason: Muscle Spasticity Stop: 09/17/25 21:59 Last Admin: 09/19/24 21:45 Dose: 10 mg Fluticasone Propionate (Fluticasone Propionate Amalia 120 Amalia/16 Gm Bottle) 1 spray INTRANASAL BIDSCH Stop: 09/17/25 20:59 Last Admin: 09/24/24 08:47 Dose: 1 spray Gabapentin (Gabapentin 300 Mg Capsule) 300 mg PO TID [facility] Stop: 09/17/25 21:59 Last Admin: 09/24/24 08:46 Dose: 300 mg Guaifenesin (Guaifenesin 600 Mg Tab.Er.12h) 1,200 mg PO BID [facility] Stop: 09/17/25 20:59 Last Admin: 09/24/24 08:46 Dose: 1,200 mg Heparin Sodium (Porcine) (Heparin 5,000 Unit/Ml Vial) 5,000 unit SUBCUT Q8HR IVY Stop: 09/23/25 21:59 Last Admin: 09/24/24 05:54 Dose: 5,000 unit Ipratropium Otis (Ipratropium Otis 0.5 Mg/2.5 Ml Vial.Neb) 0.5 mg INHALATION QID.RESP IVY Stop: 09/19/25 11:59 Last Admin: 09/24/24 07:57 Dose: Not Given Meropenem (Meropenem 1 Gm/20 Ml Syringe) 1 gm IV-PUSH Q8H [facility] Last Admin: 09/24/24 02:07 Dose: 1 gm Metoprolol Succinate (Metoprolol Succinate 50 Mg Tab.Er.24h) 50 mg PO DAILY [facility] Stop: 09/21/25 08:59 Last Admin: 09/24/24 08:46 Dose: 50 mg Morphine Sulfate (Morphine Sulfate 2 Mg/Ml Vial) 2 mg IV-PUSH Q4H PRN PRN Reason: Pain Scale 8 - 10 Last Admin: 09/23/24 07:37 Dose: 2 mg Oxycodone/Acetaminophen (Oxycodone/Acetaminophen 5-325 Mg Tablet) 1 tab PO [id number] PRN Reason: pain Last Admin: 09/24/24 05:53 Dose: 1 tab Pantoprazole Sodium (Pantoprazole 40 Mg Tablet.Dr) 40 mg PO DAILY [facility] Stop: 09/21/25 08:59 Last Admin: 09/24/24 08:47 Dose: 40 mg Prochlorperazine Edisylate (Prochlorperazine Edisylate 10 Mg/2 Ml Vial) 5 mg IV- PUSH Q4H PRN PRN Reason: Nausea And Vomiting Stop: 09/17/25 15:08 Sodium Chloride (Sodium Chloride 0.9 % 10 Ml Syringe) 0 ml IV-PUSH PRN PRN PRN Reason: Flush Stop: 09/17/25 12:36 Last Admin: 09/24/24 02:07 Dose: 10 ml A&P - Infectious Disease Assessment/Plan (1) Bacteremia due to Streptococcus pneumoniae: (2) Pneumonia: (3) Immunosuppressed due to chemotherapy: Plan Patient had rising white count over the weekend along with low-grade fever so she was broadened to meropenem and a CT scan was repeated. She had been on already 6 days of appropriate antibiotic therapy for her strep pneumonia bacteremia/pneumonia infection. This repeat CT scan showed progression ofthe consolidation with now surrounding gas suggesting early necrotic pneumonia versus abscess. Given worsening CT scan and climbing white count CT surgery wasconsulted. No surgery indicated per them.Blood cultures were sent over the weekend as well that were negative. Will continue meropenem and trend white count. Today her white count is down to 16.9. Documented By: Roshan Reynoso MD 09/24/24 1005 Signed By: <Electronically signed by MD Roshan Reynoso> 09/24/24 1011 [facility] Work Phone: 1(544) 479-995801-21-2025 Progress note Author Roshan Reynoso [facility] Date/TimeJanuary 2024 10:05am [place] [address] Infect. Disease Progress Note Signed Patient: Adelina Mir MR#: [id number] : 1960 Acct:[id number] Age/Sex: 63 / F Adm Date: 5 Loc: Room: [address] [place] [address] Type: ADM IN Attending Dr: Joe Garcia MD Copies to: ~ Date of Service: 09/23/2024 Subjective Interval history: Patient continues to complain of discomfort on her right chest wall with deep breathing. Afebrile. Cough is improved somewhat but still nonproductive Exam Physical Exam Vital Signs: Temp Pulse Resp BP Pulse Ox O2 Del Method O2 Flow Rate 97.9 F 103 H 20 130/60 93 L Room Air 2 09/23/24 07:35 09/23/24 07:35 09/23/24 07:35 09/23/24 07:35 09/23/24 07:35 09/23/24 07:46 09/20/24 04:00 Const General: cooperative Orientation: oriented x3 HEENT Head: normal to inspection Ears: hearing grossly normal bilaterally Nose: external nose normal Face and sinus: normal facial exam Mouth: oral mucosae normal Eyes General: appearance normal, both eyes and all related structures Neck Neck: normal visual inspection Chest Chest palpation & inspection: abnormal inspection of the chest Resp Effort & Inspection: cough and decreased respiratory effort Cardio Rate: regular rate GI Inspection: normal to inspection Palpation: soft and nontender Skin General: no rashes or lesions noted Neuro General: patient oriented x3 Extrem General: normal to inspection Objective Labs CBC/BMP: CBC, BMP 09/22/24 09/23/24 13:33 03:00 Corrected WBC 19.0 H 19.0 H Uncorrected WBC Count 19.0 H 19.0 H RBC 2.47 L 2.43 L Hgb 7.7 L 7.6 L Hct 22.7 L 22.4 L Plt Count 168 D 209 Sodium 135 L Potassium 4.0 Chloride 103 Carbon Dioxide 24.8 Anion Gap 11.2 BUN 10 Creatinine 0.68 Calcium 8.3 L Labs: 09/23/24 03:00 BUN 10 Creatinine 0.68 Microbiology Microbiology: Microbiology - Results from entire visit 09/22/24 17:11 Urine - Clean-Voided Midstream Urine Culture - Preliminary 09/21/24 17:24 Blood - Right Hand Blood Culture - Preliminary No Growth 1 Day 09/21/24 17:28 Blood - Port Blood Culture - Preliminary No Growth 1 Day 09/18/24 15:00 Blood - Right Wrist Blood Culture - Preliminary No Growth 4 Days 09/18/24 14:35 Blood - Port Blood Culture - Preliminary No Growth 4 Days 09/17/24 13:10 Blood - Right Antecubital Blood Culture - Final Streptococcus pneumoniae 09/17/24 12:58 Blood - Port Blood Culture - Final Streptococcus pneumoniae 09/17/24 12:58 Blood - Port Bacterial ID (NA Multiplex Assay) - Final 09/17/24 13:43 Urine - Straight Cath Urine Culture - Final Escherichia coli 09/17/24 17:24 Nasopharyngeal Respiratory Panel (PCR) - Final Allergies and Medications Allergies and Active Meds Allergies Corticosteroids (Glucocorticoids) Allergy (Verified 09/17/24 12:38) Unknown Reaction metaxalone (From Skelaxin) Allergy (Verified 09/17/24 12:38) Unknown Reaction entex Allergy (Uncoded 02/08/24 15:18) Unknown Reaction Active Medications Acetaminophen (Acetaminophen 325 Mg Tablet) 650 mg PO Q6HR PRN PRN Reason: Pain Scale 1 - 3 or fever Stop: 09/17/25 15:08 Last Admin: 09/19/24 18:28 Dose: 650 mg Alprazolam (Alprazolam 0.25 Mg Tablet) 0.25 mg PO TID PRN PRN Reason: anxiety Stop: 03/16/25 16:51 Last Admin: 09/23/24 06:13 Dose: 0.25 mg Benzonatate (Benzonatate 100 Mg Capsule) 200 mg PO TID PRN PRN Reason: Cough Stop: 09/17/25 16:48 Last Admin: 09/22/24 23:53 Dose: 200 mg Cyclobenzaprine HCl (Cyclobenzaprine 10 Mg Tablet) 10 mg PO HS PRN PRN Reason: Muscle Spasticity Stop: 09/17/25 21:59 Last Admin: 09/19/24 21:45 Dose: 10 mg Fluticasone Propionate (Fluticasone Propionate Amalia 120 Amalia/16 Gm Bottle) 1 spray INTRANASAL BIDSCH Stop: 09/17/25 20:59 Last Admin: 09/22/24 21:02 Dose: 1 spray Gabapentin (Gabapentin 300 Mg Capsule) 300 mg PO TID [facility] Stop: 09/17/25 21:59 Last Admin: 09/22/24 21:01 Dose: 300 mg Guaifenesin (Guaifenesin 600 Mg Tab.Er.12h) 1,200 mg PO BID [facility] Stop: 09/17/25 20:59 Last Admin: 09/22/24 21:01 Dose: 1,200 mg Ipratropium Otis (Ipratropium Otis 0.5 Mg/2.5 Ml Vial.Neb) 0.5 mg INHALATION QID.RESP [facility] Stop: 09/19/25 11:59 Last Admin: 09/22/24 21:32 Dose: Not Given Meropenem (Meropenem 1 Gm/20 Ml Syringe) 1 gm IV-PUSH Q8H [facility] Last Admin: 09/23/24 02:58 Dose: 1 gm Metoprolol Succinate (Metoprolol Succinate 50 Mg Tab.Er.24h) 50 mg PO DAILY [facility] Stop: 09/21/25 08:59 Last Admin: 09/22/24 08:15 Dose: 50 mg Morphine Sulfate (Morphine Sulfate 2 Mg/Ml Vial) 2 mg IV-PUSH Q4H PRN PRN Reason: Pain Scale 8 - 10 Last Admin: 09/23/24 07:37 Dose: 2 mg Oxycodone/Acetaminophen (Oxycodone/Acetaminophen 5-325 Mg Tablet) 1 tab PO [id number] PRN Reason: pain Last Admin: 09/22/24 23:53 Dose: 1 tab Pantoprazole Sodium (Pantoprazole 40 Mg Tablet.Dr) 40 mg PO DAILY [facility] Stop: 09/21/25 08:59 Last Admin: 09/22/24 08:15 Dose: 40 mg Prochlorperazine Edisylate (Prochlorperazine Edisylate 10 Mg/2 Ml Vial) 5 mg IV- PUSH Q4H PRN PRN Reason: Nausea And Vomiting Stop: 09/17/25 15:08 Sodium Chloride (Sodium Chloride 0.9 % 10 Ml Syringe) 0 ml IV-PUSH PRN PRN PRN Reason: Flush Stop: 09/17/25 12:36 Last Admin: 09/23/24 07:37 Dose: 10 ml A&P - Infectious Disease Assessment/Plan (1) Bacteremia due to Streptococcus pneumoniae: (2) Pneumonia: (3) Immunosuppressed due to chemotherapy: Plan Patient switched to meropenem over the weekend with concerns of rising white count. Given persistent elevated white count CT of the chest was done that showed mild progression of the consolidative changes in both lungs with right lower lobe consolidation with surrounding gas that could be early necrotic pneumonia versus early parenchymal abscess. New blood cultures are negative at 1 day. New urine culture still pending. She remains afebrile. Documented By: Roshan Reynoso MD 09/23/24 0903 Signed By: <Electronically signed by MD Roshan Reynoso> 09/24/24 4232 [facility] Work Phone: [phone]) 828-258301-21-2025 [place] [address] Infect. Disease Progress Note Signed Patient: Adelina Mir MR#: [id number] : 1960 Acct:[id number] Age/Sex: 63 / F Adm Date: 5 Loc: Room: [address] [place] [address] Type: ADM IN Attending Dr: Joe Garcia MD Copies to: ~ Date of Service: 09/24/2024 Subjective Interval history: Patient remains on room air oxygen. Still tells me she is coughing a lot and has the pain on the right side if she coughs. Afebrile overnight Exam Physical Exam Vital Signs: Temp Pulse Resp BP Pulse Ox O2 Del Method O2 Flow Rate 98.2 F 83 20 150/67 H 96 Room Air 2 09/24/24 08:44 09/24/24 08:44 09/24/24 08:44 09/24/24 08:44 09/24/24 08:44 09/24/24 08:44 09/20/24 04:00 Const General: cooperative Orientation: oriented x3 HEENT Head: normal to inspection Ears: hearing grossly normal bilaterally Nose: external nose normal Face and sinus: normal facial exam Mouth: oral mucosae normal Eyes General: appearance normal, both eyes and all related structures Neck Neck: normal visual inspection Chest Chest palpation & inspection: abnormal inspection of the chest (left mastectomy) Resp Effort & Inspection: cough and decreased respiratory effort Auscultation: rhonchi right lower Cardio Rate: regular rate GI Inspection: normal to inspection Palpation: soft and nontender Skin General: no rashes or lesions noted Neuro General: patient oriented x3 Extrem General: normal to inspection Objective Labs CBC/BMP: CBC, BMP 09/24/24 04:45 Corrected WBC 16.9 H Uncorrected WBC Count 16.9 H RBC 2.53 L Hgb 7.7 L Hct 23.2 L Plt Count 316 Sodium 135 L Potassium 4.0 Chloride 102 Carbon Dioxide 24.7 Anion Gap 12.3 BUN 10 Creatinine 0.62 Calcium 8.6 Labs: 09/24/24 04:45 BUN 10 Creatinine 0.62 Microbiology Microbiology: Microbiology - Results from entire visit 09/22/24 17:11 Urine - Clean-Voided Midstream Urine Culture - Preliminary No Growth 1 Day 09/21/24 17:28 Blood - Port Blood Culture - Preliminary No Growth 2 Days 09/21/24 17:24 Blood - Right Hand Blood Culture - Preliminary No Growth 2 Days 09/18/24 15:00 Blood - Right Wrist Blood Culture - Final NO GROWTH 5 DAYS 09/18/24 14:35 Blood - Port Blood Culture - Final NO GROWTH 5 DAYS 09/17/24 13:10 Blood - Right Antecubital Blood Culture - Final Streptococcus pneumoniae 09/17/24 12:58 Blood - Port Blood Culture - Final Streptococcus pneumoniae 09/17/24 12:58 Blood - Port Bacterial ID (NA Multiplex Assay) - Final 09/17/24 13:43 Urine - Straight Cath Urine Culture - Final Escherichia coli 09/17/24 17:24 Nasopharyngeal Respiratory Panel (PCR) - Final Allergies and Medications Allergies and Active Meds Allergies Corticosteroids (Glucocorticoids) Allergy (Verified 09/17/24 12:38) Unknown Reaction metaxalone (From Skelaxin) Allergy (Verified 09/17/24 12:38) Unknown Reaction entex Allergy (Uncoded 02/08/24 15:18) Unknown Reaction Active Medications Acetaminophen (Acetaminophen 325 Mg Tablet) 650 mg PO Q6HR PRN PRN Reason: Pain Scale 1 - 3 or fever Stop: 09/17/25 15:08 Last Admin: 09/19/24 18:28 Dose: 650 mg Alprazolam (Alprazolam 0.25 Mg Tablet) 0.25 mg PO TID PRN PRN Reason: anxiety Stop: 03/16/25 16:51 Last Admin: 09/23/24 06:13 Dose: 0.25 mg Benzonatate (Benzonatate 100 Mg Capsule) 200 mg PO TID PRN PRN Reason: Cough Stop: 09/17/25 16:48 Last Admin: 09/24/24 02:17 Dose: 200 mg Cyclobenzaprine HCl (Cyclobenzaprine 10 Mg Tablet) 10 mg PO HS PRN PRN Reason: Muscle Spasticity Stop: 09/17/25 21:59 Last Admin: 09/19/24 21:45 Dose: 10 mg Fluticasone Propionate (Fluticasone Propionate Amalia 120 Amalia/16 Gm Bottle) 1 spray [facility]SAL [facility] Stop: 09/17/25 20:59 Last Admin: 09/24/24 08:47 Dose: 1 spray Gabapentin (Gabapentin 300 Mg Capsule) 300 mg PO TID [facility] Stop: 09/17/25 21:59 Last Admin: 09/24/24 08:46 Dose: 300 mg Guaifenesin (Guaifenesin 600 Mg Tab.Er.12h) 1,200 mg PO BID [facility] Stop: 09/17/25 20:59 Last Admin: 09/24/24 08:46 Dose: 1,200 mg Heparin Sodium (Porcine) (Heparin 5,000 Unit/Ml Vial) 5,000 unit SUBCUT Q8HR [facility] Stop: 09/23/25 21:59 Last Admin: 09/24/24 05:54 Dose: 5,000 unit Ipratropium Otis (Ipratropium Otis 0.5 Mg/2.5 Ml Vial.Neb) 0.5 mg INHALATION QID.RESP [facility] Stop: 09/19/25 11:59 Last Admin: 09/24/24 07:57 Dose: Not Given Meropenem (Meropenem 1 Gm/20 Ml Syringe) 1 gm IV-PUSH Q8H [facility] Last Admin: 09/24/24 02:07 Dose: 1 gm Metoprolol Succinate (Metoprolol Succinate 50 Mg Tab.Er.24h) 50 mg PO DAILY [facility] Stop: 09/21/25 08:59 Last Admin: 09/24/24 08:46 Dose: 50 mg Morphine Sulfate (Morphine Sulfate 2 Mg/Ml Vial) 2 mg IV-PUSH Q4H PRN PRN Reason: Pain Scale 8 - 10 Last Admin: 09/23/24 07:37 Dose: 2 mg Oxycodone/Acetaminophen (Oxycodone/Acetaminophen 5-325 Mg Tablet) 1 tab PO [id number] PRN Reason: pain Last Admin: 09/24/24 05:53 Dose: 1 tab Pantoprazole Sodium (Pantoprazole 40 Mg Tablet.Dr) 40 mg PO DAILY [facility] Stop: 09/21/25 08:59 Last Admin: 09/24/24 08:47 Dose: 40 mg Prochlorperazine Edisylate (Prochlorperazine Edisylate 10 Mg/2 Ml Vial) 5 mg IV- PUSH Q4H PRN PRN Reason: Nausea And Vomiting Stop: 09/17/25 15:08 Sodium Chloride (Sodium Chloride 0.9 % 10 Ml Syringe) 0 ml IV-PUSH PRN PRN PRN Reason: Flush Stop: 09/17/25 12:36 Last Admin: 09/24/24 02:07 Dose: 10 ml A&P - Infectious Disease Assessment/Plan (1) Bacteremia due to Streptococcus pneumoniae: (2) Pneumonia: (3) Immunosuppressed due to chemotherapy: Plan Patient had rising white count over the weekend along with low-grade fever so she was broadened to meropenem and a CT scan was repeated. She had been on already 6 days of appropriate antibiotic therapy for her strep pneumonia bacteremia/pneumonia infection. This repeat CT scan showed progression ofthe consolidation with now surrounding gas suggesting early necrotic pneumonia versus abscess. Given worsening CT scan and climbing white count CT surgery wasconsulted. No surgery indicated per them.Blood cultures were sent over the weekend as well that were negative. Will continue meropenem and trend white count. Today her white count is down to 16.9. Documented By: Roshan Reynoso MD 09/24/24 1005 Signed By: 09/24/24 1011 [facility] [place]01-21-2025 [place] [address] Infect. Disease Progress Note Signed Patient: Adelina Mir MR#: [id number] : 1960 Acct:[id number] Age/Sex: 63 / F Adm Date: 5 Loc: 4 Room: [address] [place] [address] Type: ADM IN Attending Dr: Joe Garcia MD Copies to: ~ Date of Service: 09/23/2024 Subjective Interval history: Patient continues to complain of discomfort on her right chest wall with deep breathing. Afebrile. Cough is improved somewhat but still nonproductive Exam Physical Exam Vital Signs: Temp Pulse Resp BP Pulse Ox O2 Del Method O2 Flow Rate 97.9 F 103 H 20 130/60 93 L Room Air 2 09/23/24 07:35 09/23/24 07:35 09/23/24 07:35 09/23/24 07:35 09/23/24 07:35 09/23/24 07:46 09/20/24 04:00 Const General: cooperative Orientation: oriented x3 HEENT Head: normal to inspection Ears: hearing grossly normal bilaterally Nose: external nose normal Face and sinus: normal facial exam Mouth: oral mucosae normal Eyes General: appearance normal, both eyes and all related structures Neck Neck: normal visual inspection Chest Chest palpation & inspection: abnormal inspection of the chest Resp Effort & Inspection: cough and decreased respiratory effort Cardio Rate: regular rate GI Inspection: normal to inspection Palpation: soft and nontender Skin General: no rashes or lesions noted Neuro General: patient oriented x3 Extrem General: normal to inspection Objective Labs CBC/BMP: CBC, BMP 09/22/24 09/23/24 13:33 03:00 Corrected WBC 19.0 H 19.0 H Uncorrected WBC Count 19.0 H 19.0 H RBC 2.47 L 2.43 L Hgb 7.7 L 7.6 L Hct 22.7 L 22.4 L Plt Count 168 D 209 Sodium 135 L Potassium 4.0 Chloride 103 Carbon Dioxide 24.8 Anion Gap 11.2 BUN 10 Creatinine 0.68 Calcium 8.3 L Labs: 09/23/24 03:00 BUN 10 Creatinine 0.68 Microbiology Microbiology: Microbiology - Results from entire visit 09/22/24 17:11 Urine - Clean-Voided Midstream Urine Culture - Preliminary 09/21/24 17:24 Blood - Right Hand Blood Culture - Preliminary No Growth 1 Day 09/21/24 17:28 Blood - Port Blood Culture - Preliminary No Growth 1 Day 09/18/24 15:00 Blood - Right Wrist Blood Culture - Preliminary No Growth 4 Days 09/18/24 14:35 Blood - Port Blood Culture - Preliminary No Growth 4 Days 09/17/24 13:10 Blood - Right Antecubital Blood Culture - Final Streptococcus pneumoniae 09/17/24 12:58 Blood - Port Blood Culture - Final Streptococcus pneumoniae 09/17/24 12:58 Blood - Port Bacterial ID (NA Multiplex Assay) - Final 09/17/24 13:43 Urine - Straight Cath Urine Culture - Final Escherichia coli 09/17/24 17:24 Nasopharyngeal Respiratory Panel (PCR) - Final Allergies and Medications Allergies and Active Meds Allergies Corticosteroids (Glucocorticoids) Allergy (Verified 09/17/24 12:38) Unknown Reaction metaxalone (From Skelaxin) Allergy (Verified 09/17/24 12:38) Unknown Reaction entex Allergy (Uncoded 02/08/24 15:18) Unknown Reaction Active Medications Acetaminophen (Acetaminophen 325 Mg Tablet) 650 mg PO Q6HR PRN PRN Reason: Pain Scale 1 - 3 or fever Stop: 09/17/25 15:08 Last Admin: 09/19/24 18:28 Dose: 650 mg Alprazolam (Alprazolam 0.25 Mg Tablet) 0.25 mg PO TID PRN PRN Reason: anxiety Stop: 03/16/25 16:51 Last Admin: 09/23/24 06:13 Dose: 0.25 mg Benzonatate (Benzonatate 100 Mg Capsule) 200 mg PO TID PRN PRN Reason: Cough Stop: 09/17/25 16:48 Last Admin: 09/22/24 23:53 Dose: 200 mg Cyclobenzaprine HCl (Cyclobenzaprine 10 Mg Tablet) 10 mg PO HS PRN PRN Reason: Muscle Spasticity Stop: 09/17/25 21:59 Last Admin: 09/19/24 21:45 Dose: 10 mg Fluticasone Propionate (Fluticasone Propionate Amalia 120 Amalia/16 Gm Bottle) 1 spray INTRANASAL BIDSCH Stop: 09/17/25 20:59 Last Admin: 09/22/24 21:02 Dose: 1 spray Gabapentin (Gabapentin 300 Mg Capsule) 300 mg PO TID IVY Stop: 09/17/25 21:59 Last Admin: 09/22/24 21:01 Dose: 300 mg Guaifenesin (Guaifenesin 600 Mg Tab.Er.12h) 1,200 mg PO BID [facility] Stop: 09/17/25 20:59 Last Admin: 09/22/24 21:01 Dose: 1,200 mg Ipratropium Otis (Ipratropium Otis 0.5 Mg/2.5 Ml Vial.Neb) 0.5 mg INHALATION QID.RESP [facility] Stop: 09/19/25 11:59 Last Admin: 09/22/24 21:32 Dose: Not Given Meropenem (Meropenem 1 Gm/20 Ml Syringe) 1 gm IV-PUSH Q8H [facility] Last Admin: 09/23/24 02:58 Dose: 1 gm Metoprolol Succinate (Metoprolol Succinate 50 Mg Tab.Er.24h) 50 mg PO DAILY [facility] Stop: 09/21/25 08:59 Last Admin: 09/22/24 08:15 Dose: 50 mg Morphine Sulfate (Morphine Sulfate 2 Mg/Ml Vial) 2 mg IV-PUSH Q4H PRN PRN Reason: Pain Scale 8 - 10 Last Admin: 09/23/24 07:37 Dose: 2 mg Oxycodone/Acetaminophen (Oxycodone/Acetaminophen 5-325 Mg Tablet) 1 tab PO [id number] PRN Reason: pain Last Admin: 09/22/24 23:53 Dose: 1 tab Pantoprazole Sodium (Pantoprazole 40 Mg Tablet.Dr) 40 mg PO DAILY [facility] Stop: 09/21/25 08:59 Last Admin: 09/22/24 08:15 Dose: 40 mg Prochlorperazine Edisylate (Prochlorperazine Edisylate 10 Mg/2 Ml Vial) 5 mg IV- PUSH Q4H PRN PRN Reason: Nausea And Vomiting Stop: 09/17/25 15:08 Sodium Chloride (Sodium Chloride 0.9 % 10 Ml Syringe) 0 ml IV-PUSH PRN PRN PRN Reason: Flush Stop: 09/17/25 12:36 Last Admin: 09/23/24 07:37 Dose: 10 ml A&P - Infectious Disease Assessment/Plan (1) Bacteremia due to Streptococcus pneumoniae: (2) Pneumonia: (3) Immunosuppressed due to chemotherapy: Plan Patient switched to meropenem over the weekend with concerns of rising white count. Given persistent elevated white count CT of the chest was done that showed mild progression of the consolidative changes in both lungs with right lower lobe consolidation with surrounding gas that could be early necrotic pneumonia versus early parenchymal abscess. New blood cultures are negative at 1 day. New urine culture still pending. She remains afebrile. Documented By: Roshan Reynoso MD 09/23/24 0903 Signed By: 09/24/24 1005 [facility]01-20-2025 Progress note Author Joe Garcia [facility] Date/TimeJanuary 2024 3:48pm [place] [address] Hospitalist Progress Note Signed Patient: Adelina Mir MR#: [id number] : 1960 Acct:[id number] Age/Sex: 63 / F Adm Date: 5 Loc: Room: [address] [place] [address] Type: ADM IN Attending Dr: Joe Garcia MD Copies to: ~ Date of Service: 09/23/2024 Subjective Subjective Narrative: Patient was evaluated at bedside, remained afebrile overnight, WBC at 19 similarto yesterday however has been uptrending over the past few days for which further workup was conducted with CT chest on09/22/24. ID following, antibiotics were switched to meropenem over the weekend given rising WBC andthefinding on the CT which showed concerns for early necrotic pneumonia versus early parenchymal abscess. Repeat blood cultures negative at day 1, repeat urine culture is pending. Cardiothoracic was consulted. Exam Physical Exam Vital Signs: Temp Pulse Resp BP Pulse Ox O2 Del Method O2 Flow Rate 98.3 F 84 18 130/62 95 Room Air 2 09/23/24 13:22 09/23/24 13:22 09/23/24 13:22 09/23/24 13:22 09/23/24 13:22 09/23/24 13:09/20/24 04:00 Narrative: Const General: cooperative, more comfortable appearing HEENT Normal oropharyngeal mucosa without any ulcers or exudates Eyes: Conjunctiva normal Pulmonary Auscultation: Diminished breath sounds, no wheezes Chest: catheter noted on R chest Cardiovascular Rate: normal rate Rhythm: regular rhythm Heart Sounds: S1 normal, S2 normal and no murmurs GI Inspection: non-distended Palpation: soft, not firm and nontender. No rigidity or rebound. Deferred Neuro General: alert, awake and oriented x3. No obvious new focal deficit Musculoskeletal: normal range of motion Extrem General: no cyanosis, no pedal edema Psych Appearance: appropriate affect. Grossly normal, pleasant. In good spirit. Objective Lab Results 09/23/24 03:00 09/23/24 03:00 Microbiology Results Microbiology 09/18/24 15:00 Blood - Right Wrist Blood Culture - Final NO GROWTH 5 DAYS 09/18/24 14:35 Blood - Port Blood Culture - Final NO GROWTH 5 DAYS 09/22/24 17:11 Urine - Clean-Voided Midstream Urine Culture - Preliminary 09/21/24 17:24 Blood - Right Hand Blood Culture - Preliminary No Growth 1 Day 09/21/24 17:28 Blood - Port Blood Culture - Preliminary No Growth 1 Day Meds Allergies and Active Meds Allergies Corticosteroids (Glucocorticoids) Allergy (Verified 09/17/24 12:38) Unknown Reaction metaxalone (From Skelaxin) Allergy (Verified 09/17/24 12:38) Unknown Reaction entex Allergy (Uncoded 02/08/24 15:18) Unknown Reaction Active Meds: Active Medications Generic Name Dose Route Start Last Admin Trade Name Freq PRN Reason Stop Dose Admin Acetaminophen 650 mg 09/17/24 15:09 09/19/24 18:28 Acetaminophen 325 Mg Tablet PO 09/17/25 15:08 650 mg Q6HR PRN Administration Pain Scale 1 - 3 or fever Alprazolam 0.25 mg 09/17/24 16:52 09/23/24 06:13 Alprazolam 0.25 Mg Tablet PO 03/16/25 16:51 0.25 mg TID PRN Administration anxiety Benzonatate 200 mg 09/17/24 16:49 09/23/24 09:59 Benzonatate 100 Mg Capsule PO 09/17/25 16:48 200 mg TID PRN Administration Cough Cyclobenzaprine HCl 10 mg 09/17/24 22:00 09/19/24 21:45 Cyclobenzaprine 10 Mg Tablet PO 09/17/25 21:59 10 mg HS PRN Administration Muscle Spasticity Fluticasone Propionate 1 spray 09/17/24 21:00 09/23/24 09:59 Fluticasone Propionate Amalia 120 Amalia/16 Gm Bottle INTRANASAL 09/17/25 20:59 1 spray BID IVY Administration Gabapentin 300 mg 09/17/24 22:00 09/23/24 13:24 Gabapentin 300 Mg Capsule PO 09/17/25 21:59 300 mg TID IVY Administration Guaifenesin 1,200 mg 09/17/24 21:00 09/23/24 09:59 Guaifenesin 600 Mg Tab.Er.12h PO 09/17/25 20:59 1,200 mg BID IVY Administration Ipratropium Otis 0.5 mg 09/19/24 12:00 09/22/24 21:32 Ipratropium Otis 0.5 Mg/2.5 Ml Vial.Neb INHALATION 09/19/25 11:59 Not Given QID.RESP IVY Meropenem 1 gm 09/21/24 18:00 09/23/24 10:00 Meropenem 1 Gm/20 Ml Syringe IV-PUSH 1 gm Q8H IVY Administration Metoprolol Succinate 50 mg 09/21/24 09:00 09/23/24 09:59 Metoprolol Succinate 50 Mg Tab.Er.24h PO 09/21/25 08:59 50 mg DAILY IVY Administration Morphine Sulfate 2 mg 09/17/24 15:09 09/23/24 07:37 Morphine Sulfate 2 Mg/Ml Vial IV-PUSH 2 mg Q4H PRN Administration Pain Scale 8 - 10 Oxycodone/Acetaminophen 1 tab 09/17/24 16:52 09/23/24 12:38 Oxycodone/Acetaminophen 5-325 Mg Tablet PO 1 tab Q8HR PRN Administration pain Pantoprazole Sodium 40 mg 09/21/24 09:00 09/23/24 09:59 Pantoprazole 40 Mg Tablet. PO 09/21/25 08:59 40 mg DAILY IVY Administration Prochlorperazine Edisylate 5 mg 09/17/24 15:09 Prochlorperazine Edisylate 10 Mg/2 Ml Vial IV-PUSH 09/17/25 15:08 Q4H PRN Nausea And Vomiting Sodium Chloride 0 ml 09/17/24 12:37 09/23/24 10:00 Sodium Chloride 0.9 % 10 Ml Syringe IV-PUSH 09/17/25 12:36 10 ml PRN PRN Administration Flush A&P - Hospitalist Assessment/Plan (1) Pancytopenia: (2) UTI (urinary tract infection): (3) Pneumonia: (4) Acute anemia: Plan Acute hypoxic respiratory failure secondary to right-sided pneumonia (RML and RLL), concern for early necrotic PNA vs abscess Known recent diagnosis of breast cancer on chemo (4 rounds, last dose 09/05/24) Hypotensive on admission Strep pneumonia bacteremia- resolved PE ruled out Immunocompromised state -Afebrile, WBC uptrended to 19. -CT chest no PE, has consolidation RML and RLL -Repeat CT chest reviewed. -Antitussive agents as needed as directed -Initial blood cx showed strep pneumonia. Repeat Blood culture negative to date. -Oxygen supplements as needed -Monitor for fever/leukocytosis -ID following. AB switched to meropenem given above new findings. cardiothoracicconsulted, no indication for surgical intervention at this time, advised to continue conservative management. ROSAMARIA likely secondary to volume depletion due to poor oral intake - improving Acute cystitis Hyponatremia/hypokalemia/metabolic alkalosis -Urine culture E.coli. continue AB. -Optimized electrolytes to keep K>4, Mg>2, P>3 -Avoid nephrotoxic medications Acute anemia Acute thrombocytopenia - recovered -Likely chemo induced -Ordered 2 units of blood in ER. H/H improved to 7.6 and been stable. -PLT count 24 on admission. PLT back to normal. no signs of overt GI bleed or any active bleed. monitor for now. Elevated troponin likely demand ischemia due to ROSAMARIA, infectious process, severe volume depletion -Trend trop> flat curve -Recent Echo seems normal EF and LV function. Elevated LFTs likely due to sepsis/bacteremia -slightly uptrended. -Monitor for now Home medications resumed as appropriate Diet: regular DVT ppx: SCDs, added heparin SQ GI ppx: PPI Code status: Full Status: inpatient Discussed with patient at bedside. All questions answered. In agreement with theabove plan Joe Dinero MD Internal Medicine Hospitalist Attending Physician Documented By: Joe Garcia MD 09/23/24 15 39 Signed By: <Electronically signed by Joe Garcia MD> 09/23/24 7321 [facility] Work Phone: 1(847) 860-838701-20-2025 Progress note Author Jair Weber [facility] Date/TimeJanuary 2024 2:16pm [place] [address] Cardiothoracic Progress Note Signed Patient: Adelina Mir MR#: [id number] : 1960 Acct:[id number] Age/Sex: 63 / F Adm Date: 5 Loc: 4 Room: [address] [place] [address] Type: ADM IN Attending Dr: Joe Garcia MD Copies to: ~ Date of Service: 09/23/2024 Subjective Subjective Narrative: Pneumonia with cavitary progression Exam Physical Exam Vital Signs: Temp Pulse Resp BP Pulse Ox O2 Del Method O2 Flow Rate 98.3 F 84 18 130/62 95 Room Air 2 09/23/24 13:22 09/23/24 13:22 09/23/24 13:22 09/23/24 13:22 09/23/24 13:22 09/23/24 13:22 09/20/24 04:00 Objective Vital Signs Vital Signs: Temp 98.3 F 09/23/24 13:22 Pulse 84 09/23/24 13:22 Resp 18 09/23/24 13:22 BP 130/62 09/23/24 13:22 Pulse Ox 95 09/23/24 13:22 O2 Del Method Room Air 09/23/24 13:22 O2 Flow Rate 2 09/20/24 04:00 Lab Results 09/23/24 03:00 09/23/24 03:00 Labs: Laboratory Results - last 24 hr 09/22/24 09/22/24 09/23/24 13:33 17:11 03:00 Corrected WBC 19.0 H 19.0 H Uncorrected WBC Count 19.0 H 19.0 H RBC 2.47 L 2.43 L Hgb 7.7 L 7.6 L Hct 22.7 L 22.4 L MCV 92.0 92.1 MCH 31.3 31.3 MCHC 34.0 34.0 RDW 14.9 14.6 Plt Count 168 D 209 MPV 8.7 8.7 Neut % (Auto) N/A N/A Lymph % (Auto) N/A N/A [place] % (Auto) N/A N/A Eos % (Auto) N/A N/A Baso % (Auto) N/A N/A Nucleat RBC Rel Count N/A N/A Neut # (Auto) N/A N/A Lymph # (Auto) N/A N/A [place] # (Auto) N/A N/A Eos # (Auto) N/A N/A Baso # (Auto) N/A N/A Band Neutrophils % 5 10 H Lymphocytes % 3 L 1 L Monocytes % 7 4 Basophils % 1 Metamyelocytes % 2 H 1 H Myelocytes % 3 H 1 H Segmented Neutrophils 80 H 83 H Reactive Lymphocytes 1 Toxic Granulation Slight Platelet Estimate Normal Normal Large Platelets Slight Giant Platelets 1 Plt Morphology Comment Normal N/A RBC Morphology N/A N/A Polychromasia Slight Slight Hypochromasia Slight Poikilocytosis Slight Anisocytosis Slight Slight Microcytosis Slight Ovalocytes Slight Stomatocytes Slight Crenated Cell Slight PHA Creatinine Clear 83.42 Sodium 135 L Potassium 4.0 Chloride 103 Carbon Dioxide 24.8 Anion Gap 11.2 BUN 10 Creatinine 0.68 Est GFR (CKD-EPI) > 60.0 Glucose 97 Calcium 8.3 L Total Bilirubin 0.6 AST 171 H ALT 116 H Alkaline Phosphatase 146 H C-Reactive Prot, Quant 24.0 H Total Protein Albumin Globulin Albumin/Globulin Ratio Urine Color Yellow Urine Appearance Cloudy A Urine pH 6.0 Ur Specific [place] 1.020 Urine Protein 50 H Urine Glucose (UA) 30 H Urine Ketones 1+ H Urine Occult Blood Trace H Urine Nitrite Negative Urine Bilirubin Negative Urine Urobilinogen Normal Ur Leukocyte Esterase 2+ H Urine RBC 3-4 Urine WBC Innumerable H Ur Squamous Epith Cells 3-4 H Urine Bacteria None seen Hyaline Casts None Urine Mucus Rare 09/23/24 03:00 Corrected WBC Uncorrected WBC Count RBC Hgb Hct MCV MCH MCHC RDW Plt Count MPV Neut % (Auto) Lymph % (Auto) [place] % (Auto) Eos % (Auto) Baso % (Auto) Nucleat RBC Rel Count Neut # (Auto) Lymph # (Auto) [place] # (Auto) Eos # (Auto) Baso # (Auto) Band Neutrophils % Lymphocytes % Monocytes % Basophils % Metamyelocytes % Myelocytes % Segmented Neutrophils Reactive Lymphocytes Toxic Granulation Platelet Estimate Large Platelets Giant Platelets Plt Morphology Comment RBC Morphology Polychromasia Hypochromasia Poikilocytosis Anisocytosis Microcytosis Ovalocytes Stomatocytes Crenated Cell PHA Creatinine Clear Sodium Potassium Chloride Carbon Dioxide Anion Gap BUN Creatinine Est GFR (CKD-EPI) Glucose Calcium Total Bilirubin AST ALT Alkaline Phosphatase C-Reactive Prot, Quant Cancelled Total Protein 5.7 L Albumin 2.7 L Globulin 3.0 Albumin/Globulin Ratio 0.9 Urine Color Urine Appearance Urine pH Ur Specific [place] Urine Protein Urine Glucose (UA) Urine Ketones Urine Occult Blood Urine Nitrite Urine Bilirubin Urine Urobilinogen Ur Leukocyte Esterase Urine RBC Urine WBC Ur Squamous Epith Cells Urine Bacteria Hyaline Casts Urine Mucus Microbiology Results Microbiology: 09/22/24 17:11 Urine - Clean-Voided Midstream Urine Culture - Preliminary 09/21/24 17:24 Blood - Right Hand Blood Culture - Preliminary No Growth 1 Day 09/21/24 17:28 Blood - Port Blood Culture - Preliminary No Growth 1 Day 09/18/24 15:00 Blood - Right Wrist Blood Culture - Preliminary No Growth 4 Days 09/18/24 14:35 Blood - Port Blood Culture - Preliminary No Growth 4 Days 09/17/24 13:10 Blood - Right Antecubital Blood Culture - Final Streptococcus pneumoniae 09/17/24 12:58 Blood - Port Blood Culture - Final Streptococcus pneumoniae 09/17/24 12:58 Blood - Port Bacterial ID (NA Multiplex Assay) - Final 09/17/24 13:43 Urine - Straight Cath Urine Culture - Final Escherichia coli 09/17/24 17:24 Nasopharyngeal Respiratory Panel (PCR) - Final A&P - Cardiothoracic Surgery (1) Pneumonia: Plan No surgery indicated now. Operating on acutely infected lung can be dangerous. Continue medical management. Will follow. Documented By: Jair Weber MD 09/23/24 1414 Signed By: <Electronically signed by Jair Weber MD> 09/23/24 1416 [facility] Work Phone: 1([phone]) 920-150601-20-2025 [place] [address] Hospitalist Progress Note Signed Patient: Adelina Mir MR#: [id number] : 1960 Acct:[id number] Age/Sex: 63 / F Adm Date: 5 Loc: Room: [address] [place] [address] Type: ADM IN Attending Dr: Joe Garcia MD Copies to: ~ Date of Service: 09/23/2024 Subjective Subjective Narrative: Patient was evaluated at bedside, remained afebrile overnight, WBC at 19 similarto yesterday however has been uptrending over the past few days for which further workup was conducted with CT chest on09/22/24. ID following, antibiotics were switched to meropenem over the weekend given rising WBC andthefinding on the CT which showed concerns for early necrotic pneumonia versus early parenchymal abscess. Repeat blood cultures negative at day 1, repeat urine culture is pending. Cardiothoracic was consulted. Exam Physical Exam Vital Signs: Temp Pulse Resp BP Pulse Ox O2 Del Method O2 Flow Rate 98.3 F 84 18 130/62 95 Room Air 2 09/23/24 13:22 09/23/24 13:22 09/23/24 13:22 09/23/24 13:22 09/23/24 13:22 09/23/24 13:22 09/20/24 04:00 Narrative: Const General: cooperative, more comfortable appearing HEENT Normal oropharyngeal mucosa without any ulcers or exudates Eyes: Conjunctiva normal Pulmonary Auscultation: Diminished breath sounds, no wheezes Chest: catheter noted on R chest Cardiovascular Rate: normal rate Rhythm: regular rhythm Heart Sounds: S1 normal, S2 normal and no murmurs GI Inspection: non-distended Palpation: soft, not firm and nontender. No rigidity or rebound. Deferred Neuro General: alert, awake and oriented x3. No obvious new focal deficit Musculoskeletal: normal range of motion Extrem General: no cyanosis, no pedal edema Psych Appearance: appropriate affect. Grossly normal, pleasant. In good spirit. Objective Lab Results 09/23/24 03:00 09/23/24 03:00 Microbiology Results Microbiology 09/18/24 15:00 Blood - Right Wrist Blood Culture - Final NO GROWTH 5 DAYS 09/18/24 14:35 Blood - Port Blood Culture - Final NO GROWTH 5 DAYS 09/22/24 17:11 Urine - Clean-Voided Midstream Urine Culture - Preliminary 09/21/24 17:24 Blood - Right Hand Blood Culture - Preliminary No Growth 1 Day 09/21/24 17:28 Blood - Port Blood Culture - Preliminary No Growth 1 Day Meds Allergies and Active Meds Allergies Corticosteroids (Glucocorticoids) Allergy (Verified 09/17/24 12:38) Unknown Reaction metaxalone (From Skelaxin) Allergy (Verified 09/17/24 12:38) Unknown Reaction entex Allergy (Uncoded 02/08/24 15:18) Unknown Reaction Active Meds: Active Medications Generic Name Dose Route Start Last Admin Trade Name Freq PRN Reason Stop Dose Admin Acetaminophen 650 mg 09/17/24 15:09 09/19/24 18:28 Acetaminophen 325 Mg Tablet PO 09/17/25 15:08 650 mg Q6HR PRN Administration Pain Scale 1 - 3 or fever Alprazolam 0.25 mg 09/17/24 16:52 09/23/24 06:13 Alprazolam 0.25 Mg Tablet PO 03/16/25 16:51 0.25 mg TID PRN Administration anxiety Benzonatate 200 mg 09/17/24 16:49 09/23/24 09:59 Benzonatate 100 Mg Capsule PO 09/17/25 16:48 200 mg TID PRN Administration Cough Cyclobenzaprine HCl 10 mg 09/17/24 22:00 09/19/24 21:45 Cyclobenzaprine 10 Mg Tablet PO 09/17/25 21:59 10 mg HS PRN Administration Muscle Spasticity Fluticasone Propionate 1 spray 09/17/24 21:00 09/23/24 09:59 Fluticasone Propionate Amalia 120 Amalia/16 Gm Bottle INTRANASAL 09/17/25 20:59 1 spray BID IVY Administration Gabapentin 300 mg 09/17/24 22:00 09/23/24 13:24 Gabapentin 300 Mg Capsule PO 09/17/25 21:59 300 mg TID IVY Administration Guaifenesin 1,200 mg 09/17/24 21:00 09/23/24 09:59 Guaifenesin 600 Mg Tab.Er.12h PO 09/17/25 20:59 1,200 mg BID IVY Administration Ipratropium Otis 0.5 mg 09/19/24 12:00 09/22/24 21:32 Ipratropium Otis 0.5 Mg/2.5 Ml Vial.Neb INHALATION 09/19/25 11:59 Not Given QID.RESP IVY Meropenem 1 gm 09/21/24 18:00 09/23/24 10:00 Meropenem 1 Gm/20 Ml Syringe IV-PUSH 1 gm Q8H IVY Administration Metoprolol Succinate 50 mg 09/21/24 09:00 09/23/24 09:59 Metoprolol Succinate 50 Mg Tab.Er.24h PO 09/21/25 08:59 50 mg DAILY IVY Administration Morphine Sulfate 2 mg 09/17/24 15:09 09/23/24 07:37 Morphine Sulfate 2 Mg/Ml Vial IV-PUSH 2 mg Q4H PRN Administration Pain Scale 8 - 10 Oxycodone/Acetaminophen 1 tab 09/17/24 16:52 09/23/24 12:38 Oxycodone/Acetaminophen 5-325 Mg Tablet PO 1 tab Q8HR PRN Administration pain Pantoprazole Sodium 40 mg 09/21/24 09:00 09/23/24 09:59 Pantoprazole 40 Mg Tablet.Dr PO 09/21/25 08:59 40 mg DAILY IVY Administration Prochlorperazine Edisylate 5 mg 09/17/24 15:09 Prochlorperazine Edisylate 10 Mg/2 Ml Vial IV-PUSH 09/17/25 15:08 Q4H PRN Nausea And Vomiting Sodium Chloride 0 ml 09/17/24 12:37 09/23/24 10:00 Sodium Chloride 0.9 % 10 Ml Syringe IV-PUSH 09/17/25 12:36 10 ml PRN PRN Administration Flush A&P - Hospitalist Assessment/Plan (1) Pancytopenia: (2) UTI (urinary tract infection): (3) Pneumonia: (4) Acute anemia: Plan Acute hypoxic respiratory failure secondary to right-sided pneumonia (RML and RLL), concern for early necrotic PNA vs abscess Known recent diagnosis of breast cancer on chemo (4 rounds, last dose 09/05/24) Hypotensive on admission Strep pneumonia bacteremia- resolved PE ruled out Immunocompromised state -Afebrile, WBC uptrended to 19. -CT chest no PE, has consolidation RML and RLL -Repeat CT chest reviewed. -Antitussive agents as needed as directed -Initial blood cx showed strep pneumonia. Repeat Blood culture negative to date. -Oxygen supplements as needed -Monitor for fever/leukocytosis -ID following. AB switched to meropenem given above new findings. cardiothoracicconsulted, no indication for surgical intervention at this time, advised to continue conservative management. ROSAMARIA likely secondary to volume depletion due to poor oral intake - improving Acute cystitis Hyponatremia/hypokalemia/metabolic alkalosis -Urine culture E.coli. continue AB. -Optimized electrolytes to keep K>4, Mg>2, P>3 -Avoid nephrotoxic medications Acute anemia Acute thrombocytopenia - recovered -Likely chemo induced -Ordered 2 units of blood in ER. H/H improved to 7.6 and been stable. -PLT count 24 on admission. PLT back to normal. no signs of overt GI bleed or any active bleed. monitor for now. Elevated troponin likely demand ischemia due to ROSAMARIA, infectious process, severe volume depletion -Trend trop> flat curve -Recent Echo seems normal EF and LV function. Elevated LFTs likely due to sepsis/bacteremia -slightly uptrended. -Monitor for now Home medications resumed as appropriate Diet: regular DVT ppx: SCDs, added heparin SQ GI ppx: PPI Code status: Full Status: inpatient Discussed with patient at bedside. All questions answered. In agreement with theabove plan Joe Dinero MD Internal Medicine Hospitalist Attending Physician Documented By: Joe Garcia MD 09/23/24 15 39 Signed By: 09/23/24 1548 [facility]01-20-2025 [place] [address] Cardiothoracic Progress Note Signed Patient: Adelina Mir MR#: [id number] : 1960 Acct:[id number] Age/Sex: 63 / F Adm Date: 5 Loc: Room: [address] [place] [address] Type: ADM IN Attending Dr: Joe Garcia MD Copies to: ~ Date of Service: 09/23/2024 Subjective Subjective Narrative: Pneumonia with cavitary progression Exam Physical Exam Vital Signs: Temp Pulse Resp BP Pulse Ox O2 Del Method O2 Flow Rate 98.3 F 84 18 130/62 95 Room Air 2 09/23/24 13:22 09/23/24 13:22 09/23/24 13:22 09/23/24 13:22 09/23/24 13:22 09/23/24 13:22 09/20/24 04:00 Objective Vital Signs Vital Signs: Temp 98.3 F 09/23/24 13:22 Pulse 84 09/23/24 13:22 Resp 18 09/23/24 13:22 BP 130/62 09/23/24 13:22 Pulse Ox 95 09/23/24 13:22 O2 Del Method Room Air 09/23/24 13:22 O2 Flow Rate 2 09/20/24 04:00 Lab Results 09/23/24 03:00 09/23/24 03:00 Labs: Laboratory Results - last 24 hr 09/22/24 09/22/24 09/23/24 13:33 17:11 03:00 Corrected WBC 19.0 H 19.0 H Uncorrected WBC Count 19.0 H 19.0 H RBC 2.47 L 2.43 L Hgb 7.7 L 7.6 L Hct 22.7 L 22.4 L MCV 92.0 92.1 MCH 31.3 31.3 MCHC 34.0 34.0 RDW 14.9 14.6 Plt Count 168 D 209 MPV 8.7 8.7 Neut % (Auto) N/A N/A Lymph % (Auto) N/A N/A [place] % (Auto) N/A N/A Eos % (Auto) N/A N/A Baso % (Auto) N/A N/A Nucleat RBC Rel Count N/A N/A Neut # (Auto) N/A N/A Lymph # (Auto) N/A N/A [place] # (Auto) N/A N/A Eos # (Auto) N/A N/A Baso # (Auto) N/A N/A Band Neutrophils % 5 10 H Lymphocytes % 3 L 1 L Monocytes % 7 4 Basophils % 1 Metamyelocytes % 2 H 1 H Myelocytes % 3 H 1 H Segmented Neutrophils 80 H 83 H Reactive Lymphocytes 1 Toxic Granulation Slight Platelet Estimate Normal Normal Large Platelets Slight Giant Platelets 1 Plt Morphology Comment Normal N/A RBC Morphology N/A N/A Polychromasia Slight Slight Hypochromasia Slight Poikilocytosis Slight Anisocytosis Slight Slight Microcytosis Slight Ovalocytes Slight Stomatocytes Slight Crenated Cell Slight PHA Creatinine Clear 83.42 Sodium 135 L Potassium 4.0 Chloride 103 Carbon Dioxide 24.8 Anion Gap 11.2 BUN 10 Creatinine 0.68 Est GFR (CKD-EPI) > 60.0 Glucose 97 Calcium 8.3 L Total Bilirubin 0.6 AST 171 H ALT 116 H Alkaline Phosphatase 146 H C-Reactive Prot, Quant 24.0 H Total Protein Albumin Globulin Albumin/Globulin Ratio Urine Color Yellow Urine Appearance Cloudy A Urine pH 6.0 Ur Specific [place] 1.020 Urine Protein 50 H Urine Glucose (UA) 30 H Urine Ketones 1+ H Urine Occult Blood Trace H Urine Nitrite Negative Urine Bilirubin Negative Urine Urobilinogen Normal Ur Leukocyte Esterase 2+ H Urine RBC 3-4 Urine WBC Innumerable H Ur Squamous Epith Cells 3-4 H Urine Bacteria None seen Hyaline Casts None Urine Mucus Rare 09/23/24 03:00 Corrected WBC Uncorrected WBC Count RBC Hgb Hct MCV MCH MCHC RDW Plt Count MPV Neut % (Auto) Lymph % (Auto) [place] % (Auto) Eos % (Auto) Baso % (Auto) Nucleat RBC Rel Count Neut # (Auto) Lymph # (Auto) [place] # (Auto) Eos # (Auto) Baso # (Auto) Band Neutrophils % Lymphocytes % Monocytes % Basophils % Metamyelocytes % Myelocytes % Segmented Neutrophils Reactive Lymphocytes Toxic Granulation Platelet Estimate Large Platelets Giant Platelets Plt Morphology Comment RBC Morphology Polychromasia Hypochromasia Poikilocytosis Anisocytosis Microcytosis Ovalocytes Stomatocytes Crenated Cell PHA Creatinine Clear Sodium Potassium Chloride Carbon Dioxide Anion Gap BUN Creatinine Est GFR (CKD-EPI) Glucose Calcium Total Bilirubin AST ALT Alkaline Phosphatase C-Reactive Prot, Quant Cancelled Total Protein 5.7 L Albumin 2.7 L Globulin 3.0 Albumin/Globulin Ratio 0.9 Urine Color Urine Appearance Urine pH Ur Specific [place] Urine Protein Urine Glucose (UA) Urine Ketones Urine Occult Blood Urine Nitrite Urine Bilirubin Urine Urobilinogen Ur Leukocyte Esterase Urine RBC Urine WBC Ur Squamous Epith Cells Urine Bacteria Hyaline Casts Urine Mucus Microbiology Results Microbiology: 09/22/24 17:11 Urine - Clean-Voided Midstream Urine Culture - Preliminary 09/21/24 17:24 Blood - Right Hand Blood Culture - Preliminary No Growth 1 Day 09/21/24 17:28 Blood - Port Blood Culture - Preliminary No Growth 1 Day 09/18/24 15:00 Blood - Right Wrist Blood Culture - Preliminary No Growth 4 Days 09/18/24 14:35 Blood - Port Blood Culture - Preliminary No Growth 4 Days 09/17/24 13:10 Blood - Right Antecubital Blood Culture - Final Streptococcus pneumoniae 09/17/24 12:58 Blood - Port Blood Culture - Final Streptococcus pneumoniae 09/17/24 12:58 Blood - Port Bacterial ID (NA Multiplex Assay) - Final 09/17/24 13:43 Urine - Straight Cath Urine Culture - Final Escherichia coli 09/17/24 17:24 Nasopharyngeal Respiratory Panel (PCR) - Final A&P - Cardiothoracic Surgery (1) Pneumonia: Plan No surgery indicated now. Operating on acutely infected lung can be dangerous. Continue medical management. Will follow. Documented By: Jair Weber MD 09/23/241413 Signed By: 09/23/24 1416 [facility]01-19-2025 Progress note Author Tyree Rdz [facility] Date/TimeJanuary 2024 6:22pm [place] [address] Hospitalist Progress Note Signed Patient: Adelina Mir MR#: [id number] : 1960 Acct:[id number] Age/Sex: 63 / F Adm Date: 5 Loc: Room: [address] [place] [address] Type: ADM IN Attending Dr: Tyree Rdz MD Copies to: ~ Date of Service: 09/22/2024 Subjective Subjective Narrative: 09/22/2024 Patient was seen at bedside. She is clinically looks stable. She did not have any fever. However has leukocytosis and ongoing right-sided pleuritic chest pain. Her white count has gone up from 12 to 17 to 19,000 today. We expanded antibiotic coverage yesterday by introducing meropenem. I have a discussion with Dr. Reynoso. We will get CT chest angiogram to rule out any loculated effusion versus lung abscess. 09/21/2024 Patient has been coughing with sputum. She denies any fever however she also has pain on the right lower chest. It hurts especially with deep breathing and coughing. Patient had history of pleurisy in the past. Her white count is up from 12 to 17. Currently she is on IV ceftriaxone for strep pneumonia. 09/20/2024 Patient was seen and evaluated at bedside, she is doing clinically much better, remained afebrile overnight, WBC around 12.9., H&H seems to be stable, PLT improving. patient still has a cough, sounds wet and congested but unable to expectorate, urinary symptoms improved. Slightly tachycardic, meds adjusted, improving gradually. Patient tolerating diet, denies any nausea vomiting or abdominal pain. Remained on IV AB. ID following. Exam Physical Exam Vital Signs: Temp Pulse Resp BP Pulse Ox O2 Del Method O2 Flow Rate 98.4 F 94 17 117/59 L 97 Room Air 2 09/22/24 16:00 09/22/24 16:00 09/22/24 16:00 09/22/24 16:00 09/22/24 16:00 09/22/24 16:00 09/20/24 04:00 Objective Lab Results 09/22/24 13:33 09/21/24 06:00 Microbiology Results Microbiology 09/21/24 17:24 Blood - Right Hand Blood Culture - Preliminary No Growth 1 Day 09/21/24 17:28 Blood - Port Blood Culture - Preliminary No Growth 1 Day 09/18/24 15:00 Blood - Right Wrist Blood Culture - Preliminary No Growth 4 Days 09/18/24 14:35 Blood - Port Blood Culture - Preliminary No Growth 4 Days Meds Allergies and Active Meds Allergies Corticosteroids (Glucocorticoids) Allergy (Verified 09/17/24 12:38) Unknown Reaction metaxalone (From Skelaxin) Allergy (Verified 09/17/24 12:38) Unknown Reaction entex Allergy (Uncoded 02/08/24 15:18) Unknown Reaction Active Meds: Active Medications Generic Name Dose Route Start Last Admin Trade Name Freq PRN Reason Stop Dose Admin Acetaminophen 650 mg 09/17/24 15:09 09/19/24 18:28 Acetaminophen 325 Mg Tablet PO 09/17/25 15:08 650 mg Q6HR PRN Administration Pain Scale 1 - 3 or fever Alprazolam 0.25 mg 09/17/24 16:52 09/21/24 08:20 Alprazolam 0.25 Mg Tablet PO 03/16/25 16:51 0.25 mg TID PRN Administration anxiety Benzonatate 200 mg 09/17/24 16:49 09/22/24 14:40 Benzonatate 100 Mg Capsule PO 09/17/25 16:48 200 mg TID PRN Administration Cough Cyclobenzaprine HCl 10 mg 09/17/24 22:00 09/19/24 21:45 Cyclobenzaprine 10 Mg Tablet PO 09/17/25 21:59 10 mg HS PRN Administration Muscle Spasticity Fluticasone Propionate 1 spray 09/17/24 21:00 09/22/24 08:15 Fluticasone Propionate Amalia 120 Amalia/16 Gm Bottle INTRANASAL 09/17/25 20:59 1 spray BID IVY Administration Gabapentin 300 mg 09/17/24 22:00 09/22/24 13:25 Gabapentin 300 Mg Capsule PO 09/17/25 21:59 300 mg TID IVY Administration Guaifenesin 1,200 mg 09/17/24 21:00 09/22/24 08:15 Guaifenesin 600 Mg Tab.Er.12h PO 09/17/25 20:59 1,200 mg BID IVY Administration Ipratropium Otis 0.5 mg 09/19/24 12:00 09/22/24 15:02 Ipratropium Otis 0.5 Mg/2.5 Ml Vial.Neb INHALATION 09/19/25 11:59 Not Given QID.RESP IVY Meropenem 1 gm 09/21/24 18:00 09/22/24 10:01 Meropenem 1 Gm/20 Ml Syringe IV-PUSH 1 gm Q8H IVY Administration Metoprolol Succinate 50 mg 09/21/24 09:00 09/22/24 08:15 Metoprolol Succinate 50 Mg Tab.Er.24h PO 09/21/25 08:59 50 mg DAILY IVY Administration Morphine Sulfate 2 mg 09/17/24 15:09 09/21/24 06:40 Morphine Sulfate 2 Mg/Ml Vial IV-PUSH 2 mg Q4H PRN Administration Pain Scale 8 - 10 Oxycodone/Acetaminophen 1 tab 09/17/24 16:52 09/22/24 14:40 Oxycodone/Acetaminophen 5-325 Mg Tablet PO 1 tab Q8HR PRN Administration pain Pantoprazole Sodium 40 mg 09/21/24 09:00 09/22/24 08:15 Pantoprazole 40 Mg Tablet.Dr PO 09/21/25 08:59 40 mg DAILY IVY Administration Prochlorperazine Edisylate 5 mg 09/17/24 15:09 Prochlorperazine Edisylate 10 Mg/2 Ml Vial IV-PUSH 09/17/25 15:08 Q4H PRN Nausea And Vomiting Sodium Chloride 0 ml 09/17/24 12:37 09/22/24 10:01 Sodium Chloride 0.9 % 10 Ml Syringe IV-PUSH 09/17/25 12:36 10 ml PRN PRN Administration Flush A&P - Hospitalist Assessment/Plan (1) Pancytopenia: (2) UTI (urinary tract infection): (3) Pneumonia: (4) Acute anemia: Plan PLAN FOR TODAY: 09/22/2024 Patient has increased lung crackles especially on the right side. She is getting more cough and sputum however she does not have any fever at this time. Her white count has gone up from 12 to 17 to 19K. CXR yesterday showed right lower lobe pneumonia/consolidation. Also her liver function is trending up. Antibiotic coverage was expanded yesterday with meropenem. I am ordering a CT angio chest to rule out loculated effusion versus lung abscess. The case was discussed with the flank ASSESSMENT 09/20/2024 Acute hypoxic respiratory failure secondary to right-sided pneumonia (RML and RLL) Known recent diagnosis of breast cancer on chemo (4 rounds, last dose 09/05/24) Hypotensive on admission Strep pneumonia bacteremia PE ruled out Immunocompromised state -Afebrile, WBC around 12.9 -CT chest no PE, has consolidation RML and RLL -Antitussive agents as needed as directed -Initial blood cx showed strep pneumonia. Repeat Blood culture negative to date. -Oxygen supplements as needed -Monitor for fever/leukocytosis ROSAMARIA likely secondary to volume depletion due to poor oral intake - improving Acute cystitis Hyponatremia/hypokalemia/metabolic alkalosis - urine culture E.coli. continue AB. -Optimized electrolytes to keep K>4, Mg>2, P>3 -Avoid nephrotoxic medications Acute anemia Acute thrombocytopenia -Likely chemo induced -Ordered 2 units of blood in ER. H/H improved to 7.7 and stable. -PLT count 24 on admission. PLT today up to 61. no signs of overt GI bleed or any active bleed. monitor for now. Elevated troponin likely demand ischemia due to ROSAMARIA, infectious process, severe volume depletion -Trend trop> flat curve -Recent Echo seems normal EF and LV function. Elevated LFTs likely due to sepsis/bacteremia -Improving Home medications resumed as appropriate Diet: regular DVT ppx: SCDs GI ppx: PPI Code status: Full Status: inpatient Discussed with patient at bedside. All questions answered. In agreement with theabove plan TYREE RDZ MD Internal Medicine Hospitalist Attending Physician no Documented By: Tyree Rdz MD 09/22/241817 Signed By: <Electronically signed by Tyree Rdz MD> 09/22/24 182 [facility] Work Phone: 1(150) 501-133201-19-2025 Radiology [facility] [place] [address] [place] [address] CT Scan Report Signed Patient: Adelina Mir MR#: [id number] : 1960 Acct:[id number] Age/Sex: 63 / F ADM Date: 5 Loc: Room: [address] [place] [address] Type: ADM IN Attending Dr: Tyree Rdz MD Copies to: Tyree Rdz MD~ Ordering Provider: Tyree Rdz MD Date of Service: 09/22/24 CT/CT angio chest: Worsening Pneumonia ? Lung Abscess CT ANGIOGRAM OF THE CHEST, PULMONARY EMBOLISM PROTOCOL: CLINICAL INFORMATION: Right-sided for chest pain, elevated white blood count, rule out loculated effusion versus lung abscess COMPARISON: Chest x-ray 09/21/2024, CT chest 09/17/2024 TECHNIQUE: Following intravenous injection of contrast CT scans of the chest were obtained using pulmonary embolism protocol. Coronal and sagittal reconstructed images, as well as volume rendered CT pulmonary angiographic images were also submitted.The CT exam was performed using one or more of the following dose reduction techniques: Automated exposure control, adjustment of the MA and/or Kv according to patient size, or use of the iterative reconstruction technique. FINDINGS: Pulmonary Vasculature: Contrast bolus is adequate for evaluation of pulmonary embolism. Pulmonary trunk appears nondilated. No filling defects are identified to suggest pulmonary embolism. Mediastinum : Heavy plaque identified involving the distal arch and descending aorta.. Right-sided port is in place. Cardiomegaly. Coronary artery disease. Trace pericardial effusion. Subcentimeter mediastinal and hilar lymph nodes likely reactive.. The esophagus is grossly unremarkable. Lungs: Consolidative changes involving the right middle and lower lobes. New areas of consolidationright lower lobe posteriorly and left lower lobe posterior medially. The right middle lobe consolidation medially demonstrates a focus of gas with with slight diminished enhancement compared to the sanchez rroundingparenchyma is measures 2.6 cm in craniocaudal dimension. A similar focus of slight roundedhypoenhancement and within the anterior aspect of the right lowerlobe as well measuring 1.9 cm.. Nopneumothorax. Emphysema. Small right-sidedeffusion. Upper abdomen: No acute findings. Stable 3.2 cm nodule left adrenal gland. Severe plaque and osteopenia narrowing left proximal renal artery. Soft tissue/bones: Soft tissues surrounding the chest wall demonstrate no acute findings. Osseous structures demonstrate degenerative change. CT/CT angio chest IMPRESSION: NO EVIDENCE OF ACUTE PULMONARY EMBOLISM. MILD PROGRESSION OF THE CONSOLIDATED CHANGES BOTH LUNGS SUGGESTIVE OF PNEUMONIA. THERE ARE SUBTLE AREAS OF LOW-ATTENUATION INVOLVING THE RIGHT MIDDLELOBE AND THE RIGHT LOWER LOBE CONSOLIDATION CONSOLIDATION WITH SURROUNDING GAS COULD SUGGEST EARLY NECROTIC PNEUMONIA VERSUS EARLY PARENCHYMAL ABSCESS. PLEASECORRELATE WITH EXAM FINDINGS. NEW RIGHT-SIDED EFFUSION. Impression dictated by: Beck Negrete M.D.09/22/2024 6:58 PM Dictation Location: [place] [address] Transcribed By: [facility] 09/22/241857 Dictated By: Beck Negrete MD 09/22/241848 Signed By: 09/22/241857 [facility] Work Phone: [phone] 455-292001-19-2025 [place] [address] Hospitalist Progress Note Signed Patient: Adelina Mir MR#: [id number] : 1960 Acct:[id number] Age/Sex: 63 / F Adm Date: 5 Loc: Room: [address] [place] [address] Type: ADM IN Attending Dr: Tyree Rdz MD Copies to: ~ Date of Service: 09/22/2024 Subjective Subjective Narrative: 09/22/2024 Patient was seen at bedside. She is clinically looks stable. She did not have any fever. However has leukocytosis and ongoing right-sided pleuritic chest pain. Her white count has gone up from 12 to 17 to 19,000 today. We expanded antibiotic coverage yesterday by introducing meropenem. I have a discussion with Dr. Reynoso. We will get CT chest angiogram to rule out any loculated effusion versus lung abscess. 09/21/2024 Patient has been coughing with sputum. She denies any fever however she also has pain on the right lower chest. It hurts especially with deep breathing and coughing. Patient had history of pleurisy in the past. Her white count is up from 12 to 17. Currently she is on IV ceftriaxone for strep pneumonia. 09/20/2024 Patient was seen and evaluated at bedside, she is doing clinically much better, remained afebrile overnight, WBC around 12.9., H&H seems to be stable, PLT improving. patient still has a cough, sounds wet and congested but unable to expectorate, urinary symptoms improved. Slightly tachycardic, meds adjusted, improving gradually. Patient tolerating diet, denies any nausea vomiting or abdominal pain. Remained on IV AB. ID following. Exam Physical Exam Vital Signs: Temp Pulse Resp BP Pulse Ox O2 Del Method O2 Flow Rate 98.4 F 94 17 117/59 L 97 Room Air 2 09/22/24 16:00 09/22/24 16:00 09/22/24 16:00 09/22/24 16:00 09/22/24 16:00 09/22/24 16:00 09/20/24 04:00 Objective Lab Results 09/22/24 13:33 09/21/24 06:00 Microbiology Results Microbiology 09/21/24 17:24 Blood - Right Hand Blood Culture - Preliminary No Growth 1 Day 09/21/24 17:28 Blood - Port Blood Culture - Preliminary No Growth 1 Day 09/18/24 15:00 Blood - Right Wrist Blood Culture - Preliminary No Growth 4 Days 09/18/24 14:35 Blood - Port Blood Culture - Preliminary No Growth 4 Days Meds Allergies and Active Meds Allergies Corticosteroids (Glucocorticoids) Allergy (Verified 09/17/24 12:38) Unknown Reaction metaxalone (From Skelaxin) Allergy (Verified 09/17/24 12:38) Unknown Reaction entex Allergy (Uncoded 02/08/24 15:18) Unknown Reaction Active Meds: Active Medications Generic Name Dose Route Start Last Admin Trade Name Freq PRN Reason Stop Dose Admin Acetaminophen 650 mg 09/17/24 15:09 09/19/24 18:28 Acetaminophen 325 Mg Tablet PO 09/17/25 15:08 650 mg Q6HR PRN Administration Pain Scale 1 - 3 or fever Alprazolam 0.25 mg 09/17/24 16:52 09/21/24 08:20 Alprazolam 0.25 Mg Tablet PO 03/16/25 16:51 0.25 mg TID PRN Administration anxiety Benzonatate 200 mg 09/17/24 16:49 09/22/24 14:40 Benzonatate 100 Mg Capsule PO 09/17/25 16:48 200 mg TID PRN Administration Cough Cyclobenzaprine HCl 10 mg 09/17/24 22:00 09/19/24 21:45 Cyclobenzaprine 10 Mg Tablet PO 09/17/25 21:59 10 mg HS PRN Administration Muscle Spasticity Fluticasone Propionate 1 spray 09/17/24 21:00 09/22/24 08:15 Fluticasone Propionate Amalia 120 Amalia/16 Gm Bottle INTRANASAL 09/17/25 20:59 1 spray BID IVY Administration Gabapentin 300 mg 09/17/24 22:00 09/22/24 13:25 Gabapentin 300 Mg Capsule PO 09/17/25 21:59 300 mg TID IVY Administration Guaifenesin 1,200 mg 09/17/24 21:00 09/22/24 08:15 Guaifenesin 600 Mg Tab.Er.12h PO 09/17/25 20:59 1,200 mg BID IVY Administration Ipratropium Otis 0.5 mg 09/19/24 12:00 09/22/24 15:02 Ipratropium Otis 0.5 Mg/2.5 Ml Vial.Neb INHALATION 09/19/25 11:59 Not Given QID.RESP IVY Meropenem 1 gm 09/21/24 18:00 09/22/24 10:01 Meropenem 1 Gm/20 Ml Syringe IV-PUSH 1 gm Q8H IVY Administration Metoprolol Succinate 50 mg 09/21/24 09:00 09/22/24 08:15 Metoprolol Succinate 50 Mg Tab.Er.24h PO 09/21/25 08:59 50 mg DAILY IVY Administration Morphine Sulfate 2 mg 09/17/24 15:09 09/21/24 06:40 Morphine Sulfate 2 Mg/Ml Vial IV-PUSH 2 mg Q4H PRN Administration Pain Scale 8 - 10 Oxycodone/Acetaminophen 1 tab 09/17/24 16:52 09/22/24 14:40 Oxycodone/Acetaminophen 5-325 Mg Tablet PO 1 tab Q8HR PRN Administration pain Pantoprazole Sodium 40 mg 09/21/24 09:00 09/22/24 08:15 Pantoprazole 40 Mg Tablet.Dr PO 09/21/25 08:59 40 mg DAILY IVY Administration Prochlorperazine Edisylate 5 mg 09/17/24 15:09 Prochlorperazine Edisylate 10 Mg/2 Ml Vial IV-PUSH 09/17/25 15:08 Q4H PRN Nausea And Vomiting Sodium Chloride 0 ml 09/17/24 12:37 09/22/24 10:01 Sodium Chloride 0.9 % 10 Ml Syringe IV-PUSH 09/17/25 12:36 10 ml PRN PRN Administration Flush A&P - Hospitalist Assessment/Plan (1) Pancytopenia: (2) UTI (urinary tract infection): (3) Pneumonia: (4) Acute anemia: Plan PLAN FOR TODAY: 09/22/2024 Patient has increased lung crackles especially on the right side. She is getting more cough and sputum however she does not have any fever at this time. Her white count has gone up from 12 to 17 to 19K. CXR yesterday showed right lower lobe pneumonia/consolidation. Also her liver function is trending up. Antibiotic coverage was expanded yesterday with meropenem. I am ordering a CT angio chest to rule out loculated effusion versus lung abscess. The case was discussed with the flank ASSESSMENT 09/20/2024 Acute hypoxic respiratory failure secondary to right-sided pneumonia (RML and RLL) Known recent diagnosis of breast cancer on chemo (4 rounds, last dose 09/05/24) Hypotensive on admission Strep pneumonia bacteremia PE ruled out Immunocompromised state -Afebrile, WBC around 12.9 -CT chest no PE, has consolidation RML and RLL -Antitussive agents as needed as directed -Initial blood cx showed strep pneumonia. Repeat Blood culture negative to date. -Oxygen supplements as needed -Monitor for fever/leukocytosis ROSAMARIA likely secondary to volume depletion due to poor oral intake - improving Acute cystitis Hyponatremia/hypokalemia/metabolic alkalosis - urine culture E.coli. continue AB. -Optimized electrolytes to keep K>4, Mg>2, P>3 -Avoid nephrotoxic medications Acute anemia Acute thrombocytopenia -Likely chemo induced -Ordered 2 units of blood in ER. H/H improved to 7.7 and stable. -PLT count 24 on admission. PLT today up to 61. no signs of overt GI bleed or any active bleed. monitor for now. Elevated troponin likely demand ischemia due to ROSAMARIA, infectious process, severe volume depletion -Trend trop> flat curve -Recent Echo seems normal EF and LV function. Elevated LFTs likely due to sepsis/bacteremia -Improving Home medications resumed as appropriate Diet: regular DVT ppx: SCDs GI ppx: PPI Code status: Full Status: inpatient Discussed with patient at bedside. All questions answered. In agreement with theabove plan TYREE RDZ MD Internal Medicine Hospitalist Attending Physician no Documented By: Tyree Rdz MD 09/22/241817 Signed By: 09/22/241821 [facility]01-18-2025 Progress note Author Tyree Rdz [facility] Date/TimeJanuary 2024 4:09pm [place] [address] Hospitalist Progress Note Signed Patient: Adelina Mir MR#: [id number] : 1960 Acct:[id number] Age/Sex: 63 / F Adm Date: 5 Loc: Room: [address] [place] [address] Type: ADM IN Attending Dr: Tyree Rdz MD Copies to: ~ Date of Service: 09/21/2024 Subjective Subjective Narrative: 09/21/2024 Patient has been coughing with sputum. She denies any fever however she also has pain on the right lower chest. It hurts especially with deep breathing and coughing. Patient had history of pleurisy in the past. Her white count is up from 12 to 17. Currently she is on IV ceftriaxone for strep pneumonia. 09/20/2024 Patient was seen and evaluated at bedside, she is doing clinically much better, remained afebrile overnight, WBC around 12.9., H&H seems to be stable, PLT improving. patient still has a cough, sounds wet and congested but unable to expectorate, urinary symptoms improved. Slightly tachycardic, meds adjusted, improving gradually. Patient tolerating diet, denies any nausea vomiting or abdominal pain. Remained on IV AB. ID following. Exam Physical Exam Vital Signs: Temp Pulse Resp BP Pulse Ox O2 Del Method O2 Flow Rate 97.9 F 82 18 117/59 L 93 L Room Air 2 09/21/24 08:00 09/21/24 11:34 09/21/24 11:34 09/21/24 11:34 09/21/24 11:34 09/21/24 11:34 09/20/24 04:00 Objective Lab Results 09/21/24 06:00 09/21/24 06:00 Microbiology Results Microbiology 09/18/24 15:00 Blood - Right Wrist Blood Culture - Preliminary No Growth 3 Days 09/18/24 14:35 Blood - Port Blood Culture - Preliminary No Growth 3 Days 09/17/24 13:10 Blood - Right Antecubital Blood Culture - Final Streptococcus pneumoniae 09/17/24 12:58 Blood - Port Blood Culture - Final Streptococcus pneumoniae 09/17/24 12:58 Blood - Port Bacterial ID (NA Multiplex Assay) - Final Meds Allergies and Active Meds Allergies Corticosteroids (Glucocorticoids) Allergy (Verified 09/17/24 12:38) Unknown Reaction metaxalone (From Skelaxin) Allergy (Verified 09/17/24 12:38) Unknown Reaction entex Allergy (Uncoded 02/08/24 15:18) Unknown Reaction Active Meds: Active Medications Generic Name Dose Route Start Last Admin Trade Name Freq PRN Reason Stop Dose Admin Acetaminophen 650 mg 09/17/24 15:09 09/19/24 18:28 Acetaminophen 325 Mg Tablet PO 09/17/25 15:08 650 mg Q6HR PRN Administration Pain Scale 1 - 3 or fever Alprazolam 0.25 mg 09/17/24 16:52 09/21/24 08:20 Alprazolam 0.25 Mg Tablet PO 03/16/25 16:51 0.25 mg TID PRN Administration anxiety Benzonatate 200 mg 09/17/24 16:49 09/21/24 11:36 Benzonatate 100 Mg Capsule PO 09/17/25 16:48 200 mg TID PRN Administration Cough Ceftriaxone Sodium 2 gm 09/18/24 13:00 09/21/24 12:22 Ceftriaxone 2 Gm/20 Ml Syringe IV-PUSH 2 gm DAILY@1300 IVY Administration Cyclobenzaprine HCl 10 mg 09/17/24 22:00 09/19/24 21:45 Cyclobenzaprine 10 Mg Tablet PO 09/17/25 21:59 10 mg HS PRN Administration Muscle Spasticity Fluticasone Propionate 1 spray 09/17/24 21:00 09/21/24 08:34 Fluticasone Propionate Amalia 120 Amalia/16 Gm Bottle INTRANASAL 09/17/25 20:59 1 spray BID IVY Administration Gabapentin 300 mg 09/17/24 22:00 09/21/24 13:40 Gabapentin 300 Mg Capsule PO 09/17/25 21:59 300 mg TID IVY Administration Guaifenesin 1,200 mg 09/17/24 21:00 09/21/24 08:20 Guaifenesin 600 Mg Tab.Er.12h PO 09/17/25 20:59 1,200 mg BID IVY Administration Ipratropium Otis 0.5 mg 09/19/24 12:00 09/21/24 14:01 Ipratropium Otis 0.5 Mg/2.5 Ml Vial.Neb INHALATION 09/19/25 11:59 Not Given QID.RESP IVY Metoprolol Succinate 50 mg 09/21/24 09:00 09/21/24 08:20 Metoprolol Succinate 50 Mg Tab.Er.24h PO 09/21/25 08:59 50 mg DAILY IVY Administration Morphine Sulfate 2 mg 09/17/24 15:09 09/21/24 06:40 Morphine Sulfate 2 Mg/Ml Vial IV-PUSH 2 mg Q4H PRN Administration Pain Scale 8 - 10 Oxycodone/Acetaminophen 1 tab 09/17/24 16:52 09/21/24 11:36 Oxycodone/Acetaminophen 5-325 Mg Tablet PO 1 tab Q8HR PRN Administration pain Pantoprazole Sodium 40 mg 09/21/24 09:00 09/21/24 08:20 Pantoprazole 40 Mg Tablet. PO 09/21/25 08:59 40 mg DAILY IVY Administration Prochlorperazine Edisylate 5 mg 09/17/24 15:09 Prochlorperazine Edisylate 10 Mg/2 Ml Vial IV-PUSH 09/17/25 15:08 Q4H PRN Nausea And Vomiting Sodium Chloride 0 ml 09/17/24 12:37 09/21/24 12:22 Sodium Chloride 0.9 % 10 Ml Syringe IV-PUSH 09/17/25 12:36 10 ml PRN PRN Administration Flush A&P - Hospitalist Assessment/Plan (1) Pancytopenia: (2) UTI (urinary tract infection): (3) Pneumonia: (4) Acute anemia: Plan PLAN FOR TODAY: 09/21/2024 Patient has increased lung crackles especially on the right side. She is getting more cough and sputum however she does not have any fever at this time. Her white count has gone up from 12 to 17. Like to have chest x-ray PA and lateral stat right now. Also her liver function is trending up. Although patient was doing well yesterday and plan was to send her home today I like to keep her tonight; Imay have to expand the antibiotic coverrage depending on thex-ray finding. Rest of the medical therapy be continued as per admission ordersgiven below. ASSESSMENT 09/20/2024 Acute hypoxic respiratory failure secondary to right-sided pneumonia (RML and RLL) Known recent diagnosis of breast cancer on chemo (4 rounds, last dose 09/05/24) Hypotensive on admission Strep pneumonia bacteremia PE ruled out Immunocompromised state -Afebrile, WBC around 12.9 -CT chest no PE, has consolidation RML and RLL -Continue AB as per ID. -Antitussive agents as needed as directed -Initial blood cx showed strep pneumonia. Repeat Blood culture negative to date. -Oxygen supplements as needed -Monitor for fever/leukocytosis ROSAMARIA likely secondary to volume depletion due to poor oral intake - improving Acute cystitis Hyponatremia/hypokalemia/metabolic alkalosis - urine culture E.coli. continue AB. -Optimized electrolytes to keep K>4, Mg>2, P>3 -Avoid nephrotoxic medications Acute anemia Acute thrombocytopenia -Likely chemo induced -Ordered 2 units of blood in ER. H/H improved to 7.7 and stable. -PLT count 24 on admission. PLT today up to 61. no signs of overt GI bleed or any active bleed. monitor for now. Elevated troponin likely demand ischemia due to ROSAMARIA, infectious process, severe volume depletion -Trend trop> flat curve -Recent Echo seems normal EF and LV function. Elevated LFTs likely due to sepsis/bacteremia -Improving Home medications resumed as appropriate Diet: regular DVT ppx: SCDs GI ppx: PPI Code status: Full Status: inpatient Discussed with patient at bedside. All questions answered. In agreement with theabove plan TYREE RDZ MD Internal Medicine Hospitalist Attending Physician no Documented By: Tyree Rdz MD 09/21/24 1609 Signed By: <Electronically signed by Tyree Rdz MD> 09/21/24 1609 [facility] Work Phone: [phone]) 128-565601-18-2025 [place] [address] Hospitalist Progress Note Signed Patient: Adelina Mir MR#: [id number] : 1960 Acct:[id number] Age/Sex: 63 / F Adm Date: 5 Loc: Room: [address] [place] [address] Type: ADM IN Attending Dr: Tyree Rdz MD Copies to: ~ Date of Service: 09/21/2024 Subjective Subjective Narrative: 09/21/2024 Patient has been coughing with sputum. She denies any fever however she also has pain on the right lower chest. It hurts especially with deep breathing and coughing. Patient had history of pleurisy in the past. Her white count is up from 12 to 17. Currently she is on IV ceftriaxone for strep pneumonia. 09/20/2024 Patient was seen and evaluated at bedside, she is doing clinically much better, remained afebrile overnight, WBC around 12.9., H&H seems to be stable, PLT improving. patient still has a cough, sounds wet and congested but unable to expectorate, urinary symptoms improved. Slightly tachycardic, meds adjusted, improving gradually. Patient tolerating diet, denies any nausea vomiting or abdominal pain. Remained on IV AB. ID following. Exam Physical Exam Vital Signs: Temp Pulse Resp BP Pulse Ox O2 Del Method O2 Flow Rate 97.9 F 82 18 117/59 L 93 L Room Air 2 09/21/24 08:00 09/21/24 11:34 09/21/24 11:34 09/21/24 11:34 09/21/24 11:34 09/21/24 11:34 09/20/24 04:00 Objective Lab Results 09/21/24 06:00 09/21/24 06:00 Microbiology Results Microbiology 09/18/24 15:00 Blood - Right Wrist Blood Culture - Preliminary No Growth 3 Days 09/18/24 14:35 Blood - Port Blood Culture - Preliminary No Growth 3 Days 09/17/24 13:10 Blood - Right Antecubital Blood Culture - Final Streptococcus pneumoniae 09/17/24 12:58 Blood - Port Blood Culture - Final Streptococcus pneumoniae 09/17/24 12:58 Blood - Port Bacterial ID (NA Multiplex Assay) - Final Meds Allergies and Active Meds Allergies Corticosteroids (Glucocorticoids) Allergy (Verified 09/17/24 12:38) Unknown Reaction metaxalone (From Skelaxin) Allergy (Verified 09/17/24 12:38) Unknown Reaction entex Allergy (Uncoded 02/08/24 15:18) Unknown Reaction Active Meds: Active Medications Generic Name Dose Route Start Last Admin Trade Name Freq PRN Reason Stop Dose Admin Acetaminophen 650 mg 09/17/24 15:09 09/19/24 18:28 Acetaminophen 325 Mg Tablet PO 09/17/25 15:08 650 mg Q6HR PRN Administration Pain Scale 1 - 3 or fever Alprazolam 0.25 mg 09/17/24 16:52 09/21/24 08:20 Alprazolam 0.25 Mg Tablet PO 03/16/25 16:51 0.25 mg TID PRN Administration anxiety Benzonatate 200 mg 09/17/24 16:49 09/21/24 11:36 Benzonatate 100 Mg Capsule PO 09/17/25 16:48 200 mg TID PRN Administration Cough Ceftriaxone Sodium 2 gm 09/18/24 13:00 09/21/24 12:22 Ceftriaxone 2 Gm/20 Ml Syringe IV-PUSH 2 gm DAILY@1300 IVY Administration Cyclobenzaprine HCl 10 mg 09/17/24 22:00 09/19/24 21:45 Cyclobenzaprine 10 Mg Tablet PO 09/17/25 21:59 10 mg HS PRN Administration Muscle Spasticity Fluticasone Propionate 1 spray 09/17/24 21:00 09/21/24 08:34 Fluticasone Propionate Amalia 120 Amalia/16 Gm Bottle INTRANASAL 09/17/25 20:59 1 spray BID IVY Administration Gabapentin 300 mg 09/17/24 22:00 09/21/24 13:40 Gabapentin 300 Mg Capsule PO 09/17/25 21:59 300 mg TID IVY Administration Guaifenesin 1,200 mg 09/17/24 21:00 09/21/24 08:20 Guaifenesin 600 Mg Tab.Er.12h PO 09/17/25 20:59 1,200 mg BID IVY Administration Ipratropium Otis 0.5 mg 09/19/24 12:00 09/21/24 14:01 Ipratropium Otis 0.5 Mg/2.5 Ml Vial.Neb INHALATION 09/19/25 11:59 Not Given QID.RESP IVY Metoprolol Succinate 50 mg 09/21/24 09:00 09/21/24 08:20 Metoprolol Succinate 50 Mg Tab.Er.24h PO 09/21/25 08:59 50 mg DAILY IVY Administration Morphine Sulfate 2 mg 09/17/24 15:09 09/21/24 06:40 Morphine Sulfate 2 Mg/Ml Vial IV-PUSH 2 mg Q4H PRN Administration Pain Scale 8 - 10 Oxycodone/Acetaminophen 1 tab 09/17/24 16:52 09/21/24 11:36 Oxycodone/Acetaminophen 5-325 Mg Tablet PO 1 tab Q8HR PRN Administration pain Pantoprazole Sodium 40 mg 09/21/24 09:00 09/21/24 08:20 Pantoprazole 40 Mg Tablet. PO 09/21/25 08:59 40 mg DAILY IVY Administration Prochlorperazine Edisylate 5 mg 09/17/24 15:09 Prochlorperazine Edisylate 10 Mg/2 Ml Vial IV-PUSH 09/17/25 15:08 Q4H PRN Nausea And Vomiting Sodium Chloride 0 ml 09/17/24 12:37 09/21/24 12:22 Sodium Chloride 0.9 % 10 Ml Syringe IV-PUSH 09/17/25 12:36 10 ml PRN PRN Administration Flush A&P - Hospitalist Assessment/Plan (1) Pancytopenia: (2) UTI (urinary tract infection): (3) Pneumonia: (4) Acute anemia: Plan PLAN FOR TODAY: 09/21/2024 Patient has increased lung crackles especially on the right side. She is getting more cough and sputum however she does not have any fever at this time. Her white count has gone up from 12 to 17. Like to have chest x-ray PA and lateral stat right now. Also her liver function is trending up. Although patient was doing well yesterday and plan was to send her home today I like to keep her tonight; Imay have to expand the antibiotic coverrage depending on thex-ray finding. Rest of the medical therapy be continued as per admission ordersgiven below. ASSESSMENT 09/20/2024 Acute hypoxic respiratory failure secondary to right-sided pneumonia (RML and RLL) Known recent diagnosis of breast cancer on chemo (4 rounds, last dose 09/05/24) Hypotensive on admission Strep pneumonia bacteremia PE ruled out Immunocompromised state -Afebrile, WBC around 12.9 -CT chest no PE, has consolidation RML and RLL -Continue AB as per ID. -Antitussive agents as needed as directed -Initial blood cx showed strep pneumonia. Repeat Blood culture negative to date. -Oxygen supplements as needed -Monitor for fever/leukocytosis ROSAMARIA likely secondary to volume depletion due to poor oral intake - improving Acute cystitis Hyponatremia/hypokalemia/metabolic alkalosis - urine culture E.coli. continue AB. -Optimized electrolytes to keep K>4, Mg>2, P>3 -Avoid nephrotoxic medications Acute anemia Acute thrombocytopenia -Likely chemo induced -Ordered 2 units of blood in ER. H/H improved to 7.7 and stable. -PLT count 24 on admission. PLT today up to 61. no signs of overt GI bleed or any active bleed. monitor for now. Elevated troponin likely demand ischemia due to ROSAMARIA, infectious process, severe volume depletion -Trend trop> flat curve -Recent Echo seems normal EF and LV function. Elevated LFTs likely due to sepsis/bacteremia -Improving Home medications resumed as appropriate Diet: regular DVT ppx: SCDs GI ppx: PPI Code status: Full Status: inpatient Discussed with patient at bedside. All questions answered. In agreement with theabove plan TYREE RDZ MD Internal Medicine Hospitalist Attending Physician no Documented By: Tyree Rdz MD 09/21/24 1603 Signed By: 09/21/24 1609 [facility]01-17-2025 Progress note Author Joe Garcia [facility] Date/TimeJanuary 2024 12:30pm [place] [address] Hospitalist Progress Note Signed Patient: Adeilna Mir MR#: [id number] : 1960 Acct:[id number] Age/Sex: 63 / F Adm Date: 5 Loc: 4 Room: [address] [place] [address] Type: ADM IN Attending Dr: Joe Garcia MD Copies to: ~ Date of Service: 09/20/2024 Subjective Subjective Narrative: Patient was seen and evaluated at bedside, she is doing clinically much better, remained afebrile overnight, WBC around 12.9., H&H seems to be stable, PLT improving. patient still has a cough, sounds wet and congested but unable to expectorate, urinary symptoms improved. Slightly tachycardic, meds adjusted, improving gradually. Patient tolerating diet, denies any nausea vomiting or abdominal pain. Remained on IV AB. ID following. Exam Physical Exam Vital Signs: Temp Pulse Resp BP Pulse Ox O2 Del Method O2 Flow Rate 98.3 F 104 H 20 131/80 94 L Room Air 2 09/20/24 11:26 09/20/24 11:56 09/20/24 11:56 09/20/24 11:26 09/20/24 11:26 09/20/24 11:26 09/20/24 04:00 Narrative: Const General: cooperative, more comfortable appearing HEENT Normal oropharyngeal mucosa without any ulcers or exudates Eyes: Conjunctiva normal Pulmonary Auscultation: Diminished breath sounds, right-sided rhonchi, no wheezes Chest: catheter noted on R chest Cardiovascular Rate: slightly tachycardic Rhythm: regular rhythm Heart Sounds: S1 normal, S2 normal and no murmurs GI Inspection: non-distended Palpation: soft, not firm and nontender. No rigidity or rebound. Deferred Neuro General: alert, awake and oriented x3. No obvious new focal deficit Musculoskeletal: normal range of motion Extrem General: no cyanosis, no pedal edema Psych Appearance: appropriate affect. Grossly normal, pleasant. In good spirit. Objective Lab Results 09/20/24 04:35 09/20/24 04:35 Microbiology Results Microbiology 09/17/24 13:10 Blood - Right Antecubital Blood Culture - Preliminary Streptococcus pneumoniae 09/17/24 12:58 Blood - Port Blood Culture - Preliminary Streptococcus pneumoniae 09/17/24 12:58 Blood - Port Bacterial ID (NA Multiplex Assay) - Final 09/18/24 15:00 Blood - Right Wrist Blood Culture - Preliminary No Growth 1 Day 09/18/24 14:35 Blood - Port Blood Culture - Preliminary No Growth 1 Day 09/17/24 13:43 Urine - Straight Cath Urine Culture - Final Escherichia coli Meds Allergies and Active Meds Allergies Corticosteroids (Glucocorticoids) Allergy (Verified 09/17/24 12:38) Unknown Reaction metaxalone (From Skelaxin) Allergy (Verified 09/17/24 12:38) Unknown Reaction entex Allergy (Uncoded 02/08/24 15:18) Unknown Reaction Active Meds: Active Medications Generic Name Dose Route Start Last Admin Trade Name Freq PRN Reason Stop Dose Admin Acetaminophen 650 mg 09/17/24 15:09 09/19/24 18:28 Acetaminophen 325 Mg Tablet PO 09/17/25 15:08 650 mg Q6HR PRN Administration Pain Scale 1 - 3 or fever Alprazolam 0.25 mg 09/17/24 16:52 Alprazolam 0.25 Mg Tablet PO 03/16/25 16:51 TID PRN anxiety Benzonatate 200 mg 09/17/24 16:49 09/20/24 08:01 Benzonatate 100 Mg Capsule PO 09/17/25 16:48 200 mg TID PRN Administration Cough Ceftriaxone Sodium 2 gm 09/18/24 13:00 09/19/24 13:35 Ceftriaxone 2 Gm/20 Ml Syringe IV-PUSH 2 gm DAILY@1300 IVY Administration Cyclobenzaprine HCl 10 mg 09/17/24 22:00 09/19/24 21:45 Cyclobenzaprine 10 Mg Tablet PO 09/17/25 21:59 10 mg HS PRN Administration Muscle Spasticity Fluticasone Propionate 1 spray 09/17/24 21:00 09/20/24 08:00 Fluticasone Propionate Amalia 120 Amalia/16 Gm Bottle INTRANASAL 09/17/25 20:59 1 spray BID IVY Administration Gabapentin 300 mg 09/17/24 22:00 09/20/24 08:02 Gabapentin 300 Mg Capsule PO 09/17/25 21:59 300 mg TID IVY Administration Guaifenesin 1,200 mg 09/17/24 21:00 09/20/24 08:00 Guaifenesin 600 Mg Tab.Er.12h PO 09/17/25 20:59 1,200 mg BID IVY Administration Ipratropium Otis 0.5 mg 09/19/24 12:00 09/20/24 11:56 Ipratropium Otis 0.5 Mg/2.5 Ml Vial.Neb INHALATION 09/19/25 11:59 0.5 mg QID.RESP IVY Administration Metoprolol Succinate 50 mg 09/21/24 09:00 Metoprolol Succinate 50 Mg Tab.Er.24h PO 09/21/25 08:59 DAILY IVY Morphine Sulfate 2 mg 09/17/24 15:09 09/19/24 04:32 Morphine Sulfate 2 Mg/Ml Vial IV-PUSH 2 mg Q4H PRN Administration Pain Scale 8 - 10 Oxycodone/Acetaminophen 1 tab 09/17/24 16:52 09/20/24 08:01 Oxycodone/Acetaminophen 5-325 Mg Tablet PO 1 tab Q8HR PRN Administration pain Pantoprazole Sodium 40 mg 09/21/24 09:00 Pantoprazole 40 Mg Tablet. PO 09/21/25 08:59 DAILY IVY Prochlorperazine Edisylate 5 mg 09/17/24 15:09 Prochlorperazine Edisylate 10 Mg/2 Ml Vial IV-PUSH 09/17/25 15:08 Q4H PRN Nausea And Vomiting Sodium Chloride 0 ml 09/17/24 12:37 09/20/24 08:02 Sodium Chloride 0.9 % 10 Ml Syringe IV-PUSH 09/17/25 12:36 10 ml PRN PRN Administration Flush A&P - Hospitalist Assessment/Plan (1) Pancytopenia: (2) UTI (urinary tract infection): (3) Pneumonia: (4) Acute anemia: Plan Acute hypoxic respiratory failure secondary to right-sided pneumonia (RML and RLL) Known recent diagnosis of breast cancer on chemo (4 rounds, last dose 09/05/24) Hypotensive on admission Strep pneumonia bacteremia PE ruled out Immunocompromised state -Afebrile, WBC around 12.9 -CT chest no PE, has consolidation RML and RLL -Continue AB as per ID. -Antitussive agents as needed as directed -Initial blood cx showed strep pneumonia. Repeat Blood culture negative to date. -Oxygen supplements as needed -Monitor for fever/leukocytosis ROSAMARIA likely secondary to volume depletion due to poor oral intake - improving Acute cystitis Hyponatremia/hypokalemia/metabolic alkalosis - urine culture E.coli. continue AB. -Optimized electrolytes to keep K>4, Mg>2, P>3 -Avoid nephrotoxic medications Acute anemia Acute thrombocytopenia -Likely chemo induced -Ordered 2 units of blood in ER. H/H improved to 7.7 and stable. -PLT count 24 on admission. PLT today up to 61. no signs of overt GI bleed or any active bleed. monitor for now. Elevated troponin likely demand ischemia due to ROSAMARIA, infectious process, severe volume depletion -Trend trop> flat curve -Recent Echo seems normal EF and LV function. Elevated LFTs likely due to sepsis/bacteremia -Improving Home medications resumed as appropriate Diet: regular DVT ppx: SCDs GI ppx: PPI Code status: Full Status: inpatient Discussed with patient at bedside. All questions answered. In agreement with theabove plan Joe Dinero MD Internal Medicine Hospitalist Attending Physician Documented By: Joe Garcia MD 09/20/24 12 27 Signed By: <Electronically signed by Joe Garcia MD> 09/20/24 1230 [facility] Work Phone: [phone] 533-471501-17-2025 Progress note Author Roshan Reynoso [facility] Date/TimeJanuary 2024 11:43am [place] [address] Infect. Disease Progress Note Signed Patient: Adelina Mir MR#: [id number] : 1960 Acct:[id number] Age/Sex: 63 / F Adm Date: 5 Loc: Room: [address] [place] [address] Type: ADM IN Attending Dr: Joe Garcia MD Copies to: ~ Date of Service: 09/20/2024 Subjective Interval history: Feeling a little better Sputum is now more loose and therefore productive Exam Physical Exam Vital Signs: Temp Pulse Resp BP Pulse Ox O2 Del Method O2 Flow Rate 98.3 F 96 18 131/80 94 L Room Air 2 09/20/24 11:26 09/20/24 11:26 09/20/24 11:26 09/20/24 11:26 09/20/24 11:26 09/20/24 11:09/20/24 04:00 Const General: ill appearing Orientation: oriented x3 HEENT Head: normal to inspection Ears: hearing grossly normal bilaterally Nose: external nose normal Face and sinus: normal facial exam Mouth: oral mucosae normal Eyes General: appearance normal, both eyes and all related structures Neck Neck: normal visual inspection Chest Chest palpation & inspection: abnormal inspection of the chest Resp Effort & Inspection: cough, decreased respiratory effort and tachypneic Auscultation: rhonchi right lower Cardio Rate: tachycardic GI Inspection: normal to inspection Palpation: soft and nontender Skin General: no rashes or lesions noted Neuro General: patient oriented x3 Extrem General: normal to inspection Objective Labs CBC/BMP: CBC, BMP 09/20/24 04:35 Corrected WBC 12.9 H Uncorrected WBC Count 12.9 H RBC 2.41 L Hgb 7.4 L Hct 22.0 L Plt Count 61 L D Sodium 136 Potassium 3.3 L Chloride 104 Carbon Dioxide 26.8 Anion Gap 8.5 BUN 14 Creatinine 0.68 Calcium 7.9 L Labs: 09/20/24 04:35 BUN 14 Creatinine 0.68 Microbiology Microbiology: Microbiology - Results from entire visit 09/17/24 13:10 Blood - Right Antecubital Blood Culture - Preliminary Streptococcus pneumoniae 09/17/24 12:58 Blood - Port Blood Culture - Preliminary Streptococcus pneumoniae 09/17/24 12:58 Blood - Port Bacterial ID (NA Multiplex Assay) - Final 09/18/24 15:00 Blood - Right Wrist Blood Culture - Preliminary No Growth 1 Day 09/18/24 14:35 Blood - Port Blood Culture - Preliminary No Growth 1 Day 09/17/24 13:43 Urine - Straight Cath Urine Culture - Final Escherichia coli 09/17/24 17:24 Nasopharyngeal Respiratory Panel (PCR) - Final Allergies and Medications Allergies and Active Meds Allergies Corticosteroids (Glucocorticoids) Allergy (Verified 09/17/24 12:38) Unknown Reaction metaxalone (From Skelaxin) Allergy (Verified 09/17/24 12:38) Unknown Reaction entex Allergy (Uncoded 02/08/24 15:18) Unknown Reaction Active Medications Acetaminophen (Acetaminophen 325 Mg Tablet) 650 mg PO Q6HR PRN PRN Reason: Pain Scale 1 - 3 or fever Stop: 09/17/25 15:08 Last Admin: 09/19/24 18:28 Dose: 650 mg Alprazolam (Alprazolam 0.25 Mg Tablet) 0.25 mg PO TID PRN PRN Reason: anxiety Stop: 03/16/25 16:51 Benzonatate (Benzonatate 100 Mg Capsule) 200 mg PO TID PRN PRN Reason: Cough Stop: 09/17/25 16:48 Last Admin: 09/20/24 08:01 Dose: 200 mg Ceftriaxone Sodium (Ceftriaxone 2 Gm/20 Ml Syringe) 2 gm IV-PUSH DAILY@1300 [facility] Last Admin: 09/19/24 13:35 Dose: 2 gm Cyclobenzaprine HCl (Cyclobenzaprine 10 Mg Tablet) 10 mg PO HS PRN PRN Reason: Muscle Spasticity Stop: 09/17/25 21:59 Last Admin: 09/19/24 21:45 Dose: 10 mg Fluticasone Propionate (Fluticasone Propionate Amalia 120 Amalia/16 Gm Bottle) 1 spray INTRANASAL [facility]FORMERLY [facility] Stop: 09/17/25 20:59 Last Admin: 09/20/24 08:00 Dose: 1 spray Gabapentin (Gabapentin 300 Mg Capsule) 300 mg PO TID [facility] Stop: 09/17/25 21:59 Last Admin: 09/20/24 08:02 Dose: 300 mg Guaifenesin (Guaifenesin 600 Mg Tab.Er.12h) 1,200 mg PO BID [facility] Stop: 09/17/25 20:59 Last Admin: 09/20/24 08:00 Dose: 1,200 mg Ipratropium Otis (Ipratropium Otis 0.5 Mg/2.5 Ml Vial.Neb) 0.5 mg INHALATION QID.RESP [facility] Stop: 09/19/25 11:59 Last Admin: 09/20/24 10:23 Dose: Not Given Metoprolol Succinate (Metoprolol Succinate 50 Mg Tab.Er.24h) 50 mg PO DAILY [facility] Stop: 09/21/25 08:59 Morphine Sulfate (Morphine Sulfate 2 Mg/Ml Vial) 2 mg IV-PUSH Q4H PRN PRN Reason: Pain Scale 8 - 10 Last Admin: 09/19/24 04:32 Dose: 2 mg Oxycodone/Acetaminophen (Oxycodone/Acetaminophen 5-325 Mg Tablet) 1 tab PO [id number] PRN Reason: pain Last Admin: 09/20/24 08:01 Dose: 1 tab Pantoprazole Sodium (Pantoprazole 40 Mg Tablet.) 40 mg PO DAILY IVY Stop: 09/21/25 08:59 Prochlorperazine Edisylate (Prochlorperazine Edisylate 10 Mg/2 Ml Vial) 5 mg IV- PUSH Q4H PRN PRN Reason: Nausea And Vomiting Stop: 09/17/25 15:08 Sodium Chloride (Sodium Chloride 0.9 % 10 Ml Syringe) 0 ml IV-PUSH PRN PRN PRN Reason: Flush Stop: 09/17/25 12:36 Last Admin: 09/20/24 08:02 Dose: 10 ml A&P - Infectious Disease Assessment/Plan (1) Bacteremia due to Streptococcus pneumoniae: (2) Pneumonia: (3) Immunosuppressed due to chemotherapy: Plan Maintain ceftriaxone. Follow up BCx NGTD. WBC 12.9 today. No sputum collected to date. Strep ag pending. Planning PO conversion to Cefdinir when clinically ready for dc. Documented By: Roshan Reynoso MD 09/20/24 1139 Signed By: <Electronically signed by MD Roshan Reynoso> 09/20/24 1146 [facility] Work Phone: [phone]) 730-666701-17-2025 [place] [address] Hospitalist Progress Note Signed Patient: Adelina Mir MR#: [id number] : 1960 Acct:[id number] Age/Sex: 63 / F Adm Date: 5 Loc: Room: [address] [place] [address] Type: ADM IN Attending Dr: Joe Garcia MD Copies to: ~ Date of Service: 09/20/2024 Subjective Subjective Narrative: Patient was seen and evaluated at bedside, she is doing clinically much better, remained afebrile overnight, WBC around 12.9., H&H seems to be stable, PLT improving. patient still has a cough, sounds wet and congested but unable to expectorate, urinary symptoms improved. Slightly tachycardic, meds adjusted, improving gradually. Patient tolerating diet, denies any nausea vomiting or abdominal pain. Remained on IV AB. ID following. Exam Physical Exam Vital Signs: Temp Pulse Resp BP Pulse Ox O2 Del Method O2 Flow Rate 98.3 F 104 H 20 131/80 94 L Room Air 2 09/20/24 11:26 09/20/24 11:56 09/20/24 11:56 09/20/24 11:26 09/20/24 11:26 09/20/24 11:26 09/20/24 04:00 Narrative: Const General: cooperative, more comfortable appearing HEENT Normal oropharyngeal mucosa without any ulcers or exudates Eyes: Conjunctiva normal Pulmonary Auscultation: Diminished breath sounds, right-sided rhonchi, no wheezes Chest: catheter noted on R chest Cardiovascular Rate: slightly tachycardic Rhythm: regular rhythm Heart Sounds: S1 normal, S2 normal and no murmurs GI Inspection: non-distended Palpation: soft, not firm and nontender. No rigidity or rebound. Deferred Neuro General: alert, awake and oriented x3. No obvious new focal deficit Musculoskeletal: normal range of motion Extrem General: no cyanosis, no pedal edema Psych Appearance: appropriate affect. Grossly normal, pleasant. In good spirit. Objective Lab Results 09/20/24 04:35 09/20/24 04:35 Microbiology Results Microbiology 09/17/24 13:10 Blood - Right Antecubital Blood Culture - Preliminary Streptococcus pneumoniae 09/17/24 12:58 Blood - Port Blood Culture - Preliminary Streptococcus pneumoniae 09/17/24 12:58 Blood - Port Bacterial ID (NA Multiplex Assay) - Final 09/18/24 15:00 Blood - Right Wrist Blood Culture - Preliminary No Growth 1 Day 09/18/24 14:35 Blood - Port Blood Culture - Preliminary No Growth 1 Day 09/17/24 13:43 Urine - Straight Cath Urine Culture - Final Escherichia coli Meds Allergies and Active Meds Allergies Corticosteroids (Glucocorticoids) Allergy (Verified 09/17/24 12:38) Unknown Reaction metaxalone (From Skelaxin) Allergy (Verified 09/17/24 12:38) Unknown Reaction entex Allergy (Uncoded 02/08/24 15:18) Unknown Reaction Active Meds: Active Medications Generic Name Dose Route Start Last Admin Trade Name Freq PRN Reason Stop Dose Admin Acetaminophen 650 mg 09/17/24 15:09 09/19/24 18:28 Acetaminophen 325 Mg Tablet PO 09/17/25 15:08 650 mg Q6HR PRN Administration Pain Scale 1 - 3 or fever Alprazolam 0.25 mg 09/17/24 16:52 Alprazolam 0.25 Mg Tablet PO 03/16/25 16:51 TID PRN anxiety Benzonatate 200 mg 09/17/24 16:49 09/20/24 08:01 Benzonatate 100 Mg Capsule PO 09/17/25 16:48 200 mg TID PRN Administration Cough Ceftriaxone Sodium 2 gm 09/18/24 13:00 09/19/24 13:35 Ceftriaxone 2 Gm/20 Ml Syringe IV-PUSH 2 gm DAILY@1300 IVY Administration Cyclobenzaprine HCl 10 mg 09/17/24 22:00 09/19/24 21:45 Cyclobenzaprine 10 Mg Tablet PO 09/17/25 21:59 10 mg HS PRN Administration Muscle Spasticity Fluticasone Propionate 1 spray 09/17/24 21:00 09/20/24 08:00 Fluticasone Propionate Amalia 120 Amalia/16 Gm Bottle INTRANASAL 09/17/25 20:59 1 spray BID IVY Administration Gabapentin 300 mg 09/17/24 22:00 09/20/24 08:02 Gabapentin 300 Mg Capsule PO 09/17/25 21:59 300 mg TID IVY Administration Guaifenesin 1,200 mg 09/17/24 21:00 09/20/24 08:00 Guaifenesin 600 Mg Tab.Er.12h PO 09/17/25 20:59 1,200 mg BID IVY Administration Ipratropium Otis 0.5 mg 09/19/24 12:00 09/20/24 11:56 Ipratropium Otis 0.5 Mg/2.5 Ml Vial.Neb INHALATION 09/19/25 11:59 0.5 mg QID.RESP IVY Administration Metoprolol Succinate 50 mg 09/21/24 09:00 Metoprolol Succinate 50 Mg Tab.Er.24h PO 09/21/25 08:59 DAILY IVY Morphine Sulfate 2 mg 09/17/24 15:09 09/19/24 04:32 Morphine Sulfate 2 Mg/Ml Vial IV-PUSH 2 mg Q4H PRN Administration Pain Scale 8 - 10 Oxycodone/Acetaminophen 1 tab 09/17/24 16:52 09/20/24 08:01 Oxycodone/Acetaminophen 5-325 Mg Tablet PO 1 tab Q8HR PRN Administration pain Pantoprazole Sodium 40 mg 09/21/24 09:00 Pantoprazole 40 Mg Tablet.Dr PO 09/21/25 08:59 DAILY IVY Prochlorperazine Edisylate 5 mg 09/17/24 15:09 Prochlorperazine Edisylate 10 Mg/2 Ml Vial IV-PUSH 09/17/25 15:08 Q4H PRN Nausea And Vomiting Sodium Chloride 0 ml 09/17/24 12:37 09/20/24 08:02 Sodium Chloride 0.9 % 10 Ml Syringe IV-PUSH 09/17/25 12:36 10 ml PRN PRN Administration Flush A&P - Hospitalist Assessment/Plan (1) Pancytopenia: (2) UTI (urinary tract infection): (3) Pneumonia: (4) Acute anemia: Plan Acute hypoxic respiratory failure secondary to right-sided pneumonia (RML and RLL) Known recent diagnosis of breast cancer on chemo (4 rounds, last dose 09/05/24) Hypotensive on admission Strep pneumonia bacteremia PE ruled out Immunocompromised state -Afebrile, WBC around 12.9 -CT chest no PE, has consolidation RML and RLL -Continue AB as per ID. -Antitussive agents as needed as directed -Initial blood cx showed strep pneumonia. Repeat Blood culture negative to date. -Oxygen supplements as needed -Monitor for fever/leukocytosis ROSAMARIA likely secondary to volume depletion due to poor oral intake - improving Acute cystitis Hyponatremia/hypokalemia/metabolic alkalosis - urine culture E.coli. continue AB. -Optimized electrolytes to keep K>4, Mg>2, P>3 -Avoid nephrotoxic medications Acute anemia Acute thrombocytopenia -Likely chemo induced -Ordered 2 units of blood in ER. H/H improved to 7.7 and stable. -PLT count 24 on admission. PLT today up to 61. no signs of overt GI bleed or any active bleed. monitor for now. Elevated troponin likely demand ischemia due to ROSAMARIA, infectious process, severe volume depletion -Trend trop> flat curve -Recent Echo seems normal EF and LV function. Elevated LFTs likely due to sepsis/bacteremia -Improving Home medications resumed as appropriate Diet: regular DVT ppx: SCDs GI ppx: PPI Code status: Full Status: inpatient Discussed with patient at bedside. All questions answered. In agreement with theabove plan Joe Dinero MD Internal Medicine Hospitalist Attending Physician Documented By: Joe Garcia MD 09/20/24 12 27 Signed By: 09/20/24 1230 [facility]01-17-20[place] [address] Infect. Disease Progress Note Signed Patient: Adelina Mir MR#: [id number] : 1960 Acct:[id number] Age/Sex: 63 / F Adm Date: 5 Loc: Room: [address] [place] [address] Type: ADM IN Attending Dr: Joe Garcia MD Copies to: ~ Date of Service: 09/20/2024 Subjective Interval history: Feeling a little better Sputum is now more loose and therefore productive Exam Physical Exam Vital Signs: Temp Pulse Resp BP Pulse Ox O2 Del Method O2 Flow Rate 98.3 F 96 18 131/80 94 L Room Air 2 09/20/24 11:26 09/20/24 11:26 09/20/24 11:26 09/20/24 11:26 09/20/24 11:26 09/20/24 11:26 09/20/24 04:00 Const General: ill appearing Orientation: oriented x3 HEENT Head: normal to inspection Ears: hearing grossly normal bilaterally Nose: external nose normal Face and sinus: normal facial exam Mouth: oral mucosae normal Eyes General: appearance normal, both eyes and all related structures Neck Neck: normal visual inspection Chest Chest palpation & inspection: abnormal inspection of the chest Resp Effort & Inspection: cough, decreased respiratory effort and tachypneic Auscultation: rhonchi right lower Cardio Rate: tachycardic GI Inspection: normal to inspection Palpation: soft and nontender Skin General: no rashes or lesions noted Neuro General: patient oriented x3 Extrem General: normal to inspection Objective Labs CBC/BMP: CBC, BMP 09/20/24 04:35 Corrected WBC 12.9 H Uncorrected WBC Count 12.9 H RBC 2.41 L Hgb 7.4 L Hct 22.0 L Plt Count 61 L D Sodium 136 Potassium 3.3 L Chloride 104 Carbon Dioxide 26.8 Anion Gap 8.5 BUN 14 Creatinine 0.68 Calcium 7.9 L Labs: 09/20/24 04:35 BUN 14 Creatinine 0.68 Microbiology Microbiology: Microbiology - Results from entire visit 09/17/24 13:10 Blood - Right Antecubital Blood Culture - Preliminary Streptococcus pneumoniae 09/17/24 12:58 Blood - Port Blood Culture - Preliminary Streptococcus pneumoniae 09/17/24 12:58 Blood - Port Bacterial ID (NA Multiplex Assay) - Final 09/18/24 15:00 Blood - Right Wrist Blood Culture - Preliminary No Growth 1 Day 09/18/24 14:35 Blood - Port Blood Culture - Preliminary No Growth 1 Day 09/17/24 13:43 Urine - Straight Cath Urine Culture - Final Escherichia coli 09/17/24 17:24 Nasopharyngeal Respiratory Panel (PCR) - Final Allergies and Medications Allergies and Active Meds Allergies Corticosteroids (Glucocorticoids) Allergy (Verified 09/17/24 12:38) Unknown Reaction metaxalone (From Skelaxin) Allergy (Verified 09/17/24 12:38) Unknown Reaction entex Allergy (Uncoded 02/08/24 15:18) Unknown Reaction Active Medications Acetaminophen (Acetaminophen 325 Mg Tablet) 650 mg PO Q6HR PRN PRN Reason: Pain Scale 1 - 3 or fever Stop: 09/17/25 15:08 Last Admin: 09/19/24 18:28 Dose: 650 mg Alprazolam (Alprazolam 0.25 Mg Tablet) 0.25 mg PO TID PRN PRN Reason: anxiety Stop: 03/16/25 16:51 Benzonatate (Benzonatate 100 Mg Capsule) 200 mg PO TID PRN PRN Reason: Cough Stop: 09/17/25 16:48 Last Admin: 09/20/24 08:01 Dose: 200 mg Ceftriaxone Sodium (Ceftriaxone 2 Gm/20 Ml Syringe) 2 gm IV-PUSH DAILY@1300 IVY Last Admin: 09/19/24 13:35 Dose: 2 gm Cyclobenzaprine HCl (Cyclobenzaprine 10 Mg Tablet) 10 mg PO HS PRN PRN Reason: Muscle Spasticity Stop: 09/17/25 21:59 Last Admin: 09/19/24 21:45 Dose: 10 mg Fluticasone Propionate (Fluticasone Propionate Amalia 120 Amalia/16 Gm Bottle) 1 spray INTRANASAL BIDSCH Stop: 09/17/25 20:59 Last Admin: 09/20/24 08:00 Dose: 1 spray Gabapentin (Gabapentin 300 Mg Capsule) 300 mg PO TID IVY Stop: 09/17/25 21:59 Last Admin: 09/20/24 08:02 Dose: 300 mg Guaifenesin (Guaifenesin 600 Mg Tab.Er.12h) 1,200 mg PO BID [facility] Stop: 09/17/25 20:59 Last Admin: 09/20/24 08:00 Dose: 1,200 mg Ipratropium Otis (Ipratropium Otis 0.5 Mg/2.5 Ml Vial.Neb) 0.5 mg INHALATION QID.RESP [facility] Stop: 09/19/25 11:59 Last Admin: 09/20/24 10:23 Dose: Not Given Metoprolol Succinate (Metoprolol Succinate 50 Mg Tab.Er.24h) 50 mg PO DAILY [facility] Stop: 09/21/25 08:59 Morphine Sulfate (Morphine Sulfate 2 Mg/Ml Vial) 2 mg IV-PUSH Q4H PRN PRN Reason: Pain Scale 8 - 10 Last Admin: 09/19/24 04:32 Dose: 2 mg Oxycodone/Acetaminophen (Oxycodone/Acetaminophen 5-325 Mg Tablet) 1 tab PO [id number] PRN Reason: pain Last Admin: 09/20/24 08:01 Dose: 1 tab Pantoprazole Sodium (Pantoprazole 40 Mg Tablet.Dr) 40 mg PO DAILY [facility] Stop: 09/21/25 08:59 Prochlorperazine Edisylate (Prochlorperazine Edisylate 10 Mg/2 Ml Vial) 5 mg IV- PUSH Q4H PRN PRN Reason: Nausea And Vomiting Stop: 09/17/25 15:08 Sodium Chloride (Sodium Chloride 0.9 % 10 Ml Syringe) 0 ml IV-PUSH PRN PRN PRN Reason: Flush Stop: 09/17/25 12:36 Last Admin: 09/20/24 08:02 Dose: 10 ml A&P - Infectious Disease Assessment/Plan (1) Bacteremia due to Streptococcus pneumoniae: (2) Pneumonia: (3) Immunosuppressed due to chemotherapy: Plan Maintain ceftriaxone. Follow up BCx NGTD. WBC 12.9 today. No sputum collected to date. Strep ag pending. Planning PO conversion to Cefdinir when clinically ready for dc. Documented By: Roshan Reynoso MD 09/20/24 1139 Signed By: 09/20/24 1143 [facility]01-16-2025 Progress note Author Joe Garcia [facility] Date/TimeJanuary 2024 12:15pm [place] [address] Hospitalist Progress Note Signed Patient: Adelina Mir MR#: [id number] : 1960 Acct:[id number] Age/Sex: 63 / F Adm Date: 5 Loc: Room: [address] [place] [address] Type: ADM IN Attending Dr: Joe Garcia MD Copies to: ~ Date of Service: 09/19/2024 Subjective Subjective Narrative: Patient was seen and evaluated at bedside, she is doing clinically much better, she had a fever overnight, WBC has normalized, H&H seems to be stable, patient still has a cough mostly dry nonproductive, urinary symptoms improved, today seems to be doing well off oxygen, saturating 95% on room air, however she gets tachycardic in 150s 180s upon ambulation. Patient tolerating diet, denies any na usea vomiting or abdominal pain. ID following. Exam Physical Exam Vital Signs: Temp Pulse Resp BP Pulse Ox O2 Del Method O2 Flow Rate 98.4 F 104 H 22 119/71 95 Room Air 2 09/19/24 11:43 09/19/24 11:43 09/19/24 11:43 09/19/24 11:43 09/19/24 11:43 09/19/24 11:43 09/19/24 04:00 Narrative: Const General: cooperative, tired appearing, cachectic appearing HEENT Normal oropharyngeal mucosa without any ulcers or exudates Eyes: Conjunctiva normal Pulmonary Auscultation: Diminished breath sounds, right-sided rhonchi, no wheezes Chest: catheter noted on R chest Cardiovascular Rate: normal rate Rhythm: regular rhythm Heart Sounds: S1 normal, S2 normal and no murmurs GI Inspection: non-distended Palpation: soft, not firm and nontender. No rigidity or rebound. Deferred Neuro General: alert, awake and oriented x3. No obvious new focal deficit Musculoskeletal: normal range of motion Extrem General: no cyanosis, no pedal edema Psych Appearance: appropriate affect. Grossly normal, pleasant Objective Lab Results 09/19/24 04:32 09/19/24 04:32 Microbiology Results Microbiology 09/17/24 13:10 Blood - Right Antecubital Blood Culture - Preliminary Streptococcus pneumoniae 09/17/24 12:58 Blood - Port Blood Culture - Preliminary Streptococcus pneumoniae 09/17/24 12:58 Blood - Port Bacterial ID (NA Multiplex Assay) - Final 09/17/24 13:43 Urine - Straight Cath Urine Culture - Final Escherichia coli Meds Allergies and Active Meds Allergies Corticosteroids (Glucocorticoids) Allergy (Verified 09/17/24 12:38) Unknown Reaction metaxalone (From Skelaxin) Allergy (Verified 09/17/24 12:38) Unknown Reaction entex Allergy (Uncoded 02/08/24 15:18) Unknown Reaction Active Meds: Active Medications Generic Name Dose Route Start Last Admin Trade Name Freq PRN Reason Stop Dose Admin Acetaminophen 650 mg 09/17/24 15:09 09/19/24 00:12 Acetaminophen 325 Mg Tablet PO 09/17/25 15:08 650 mg Q6HR PRN Administration Pain Scale 1 - 3 or fever Alprazolam 0.25 mg 09/17/24 16:52 Alprazolam 0.25 Mg Tablet PO 03/16/25 16:51 TID PRN anxiety Benzonatate 200 mg 09/17/24 16:49 09/19/24 06:55 Benzonatate 100 Mg Capsule PO 09/17/25 16:48 200 mg TID PRN Administration Cough Ceftriaxone Sodium 2 gm 09/18/24 13:00 09/18/24 14:29 Ceftriaxone 2 Gm/20 Ml Syringe IV-PUSH 2 gm DAILY@1300 IVY Administration Cyclobenzaprine HCl 10 mg 09/17/24 22:00 09/18/24 21:10 Cyclobenzaprine 10 Mg Tablet PO 09/17/25 21:59 10 mg HS PRN Administration Muscle Spasticity Fluticasone Propionate 1 spray 09/17/24 21:00 09/19/24 08:14 Fluticasone Propionate Amalia 120 Amalia/16 Gm Bottle INTRANASAL 09/17/25 20:59 1 spray BID IVY Administration Gabapentin 300 mg 09/17/24 22:00 09/19/24 08:14 Gabapentin 300 Mg Capsule PO 09/17/25 21:59 300 mg TID IVY Administration Guaifenesin 1,200 mg 09/17/24 21:00 09/19/24 08:14 Guaifenesin 600 Mg Tab.Er.12h PO 09/17/25 20:59 1,200 mg BID IVY Administration Lactated Ringer's 1,000 mls @ 75 mls/hr 09/17/24 15:15 09/19/24 11:53 Lactated Ringers IV 09/17/25 15:14 75 mls/hr .[id number] IVY Administration Ipratropium Otis 0.5 mg 09/19/24 12:00 Ipratropium Otis 0.5 Mg/2.5 Ml Vial.Neb INHALATION 09/19/25 11:59 QID.RESP IVY Metoprolol Succinate 25 mg 09/19/24 10:30 09/19/24 11:45 Metoprolol Succinate 25 Mg Tab.Er.24h PO 09/19/25 10:29 25 mg DAILY IVY Administration Morphine Sulfate 2 mg 09/17/24 15:09 09/19/24 04:32 Morphine Sulfate 2 Mg/Ml Vial IV-PUSH 2 mg Q4H PRN Administration Pain Scale 8 - 10 Oxycodone/Acetaminophen 1 tab 09/17/24 16:52 09/19/24 08:14 Oxycodone/Acetaminophen 5-325 Mg Tablet PO 1 tab Q8HR PRN Administration pain Pantoprazole Sodium 40 mg 09/18/24 09:00 09/19/24 08:15 Pantoprazole 40 Mg Vial IV-PUSH 09/18/25 08:59 40 mg DAILY IVY Administration Prochlorperazine Edisylate 5 mg 09/17/24 15:09 Prochlorperazine Edisylate 10 Mg/2 Ml Vial IV-PUSH 09/17/25 15:08 Q4H PRN Nausea And Vomiting Sodium Chloride 0 ml 09/17/24 12:37 09/19/24 08:15 Sodium Chloride 0.9 % 10 Ml Syringe IV-PUSH 09/17/25 12:36 10 ml PRN PRN Administration Flush Sodium Chloride 10 ml 09/17/24 16:45 09/19/24 08:15 Sodium Chloride 0.9 % 10 Ml Vial.Pf INJECTION 09/17/25 16:44 10 ml PRN PRN Administration Dilution Sodium Chloride 10 ml 09/17/24 16:45 Sodium Chloride 0.9 % 10 Ml Syringe IV-PUSH 09/17/25 16:44 PRN PRN Flush A&P - Hospitalist Assessment/Plan (1) Pancytopenia: (2) UTI (urinary tract infection): (3) Pneumonia: (4) Acute anemia: Plan Acute hypoxic respiratory failure secondary to right-sided pneumonia (RML and RLL) Known recent diagnosis of breast cancer on chemo (4 rounds, last dose 09/05/24) Hypotensive on admission Strep pneumonia bacteremia PE ruled out Immunocompromised state -Afebrile, no leukocytosis -CT chest no PE, has consolidation RML and RLL -Continue AB as per ID. -Antitussive agents as needed as directed -Initial blood cx showed strep pneumonia. Repeat Blood culture pending. -Oxygen supplements as needed -Monitor for fever/leukocytosis ROSAMARIA likely secondary to volume depletion due to poor oral intake - improving Acute cystitis Hyponatremia/hypokalemia/metabolic alkalosis - urine culture E.coli. -Optimized electrolytes to keep K>4, Mg>2, P>3 -Avoid nephrotoxic medications Acute anemia Acute thrombocytopenia -Likely chemo induced -Ordered 2 units of blood in ER. H/H improved to 7.7 and stable. -PLT count 24 on admission. PLT today 38. no signs of overt GI bleed or any active bleed. monitor for now. Elevated troponin likely demand ischemia due to ROSAMARIA, infectious process, severe volume depletion -Trend trop> flat curve -Recet Echo seems normal EF and LV function. Elevated LFTs likely due to sepsis/bacteremia -Improving Home medications resumed as appropriate Diet: regular DVT ppx: SCDs GI ppx: PPI Code status: Full Status: inpatient Discussed with patient at bedside. All questions answered. In agreement with theabove plan Joe Dinero MD Internal Medicine Hospitalist Attending Physician Documented By: Joe Garcia MD 09/19/24 12 05 Signed By: <Electronically signed by Joe Garcia MD> 09/19/24 [facility] Work Phone: [phone] 733-201901-16-2025 Consult note Author Kush Glez [facility] Date/TimeJanuary 2024 11:50am [place] [phone] Med Onc/Hem Consult Note Signed Patient: Adelina Mir MR#: [id number] : 1960 Acct:[id number] Age/Sex: 63 / F Adm Date: 5 Loc: 4P Room: 4Y0704-9 Type: ADM IN Attending Dr: Joe Garcia MD Copies to: MD Joe Ballard MD Samuel E Ross MD~ CONSULT DATE: 09/19/2024 REQUESTING PROVIDER: Joe Garcia MD REASON FOR CONSULT: Breast cancer currently on chemo HISTORY OF PRESENT: Adelina is a 63-year-old nice lady with left breast cancer currently on chemotherapy with dose denseAC received the last dose for cycle 4 on 09/05/2024 and was supposed to start her weekly Taxol on 09/18/2024 however when she was seen in our clinic she was short of breath and looking very ill and therefore she was sent to emergency room and she was admitted with pneumonia, UTI and acute anemia with hemoglobin 5.6 required IV antibiotics and 2 units of packed RBC transfusion. Medical oncology was consulted for management of her left breast cancer while onchemotherapy and had acute anemia chemo related as well as thrombocytopenia which is chemo related. She has history of generalized anxiety disorder, ADHD, complex regional pain syndrome of the lower extremity, essential tremor, hypertension and osteoarthritis to has idiopathic polyneuropathy and scoliosis with history of intermittent marijuana use as needed for pain control who was referred to our medical oncology clinic by Dr. Braun for new findings of new left breast invasiveductal carcinoma grade 2, ER positive, TX positive, HER2/pat negative 1+, 1.7 cmat least invasive ductal carcinoma, negative for lymphovascular invasion, positive superior margin of the invasive cancer, no DCIS presents and no lymph nodes were obtained as per the biopsy done on 01/10/2024. Patient has been havingintermittent nipple discharge with possible fistula from the left breast but no nipple bleeding for several months. She had BI-RADS 3 screening mammogram in April 2023 which was followed by ultrasound patient underwent initial biopsy ofthe suspicious left breast lesion on 07/12/2023 however results of thepath of that biopsy was consistent with fibrovascular adipose tissue with no pathology present. Patient continues to have nipple discharge and Dr. Braun plan to do a lumpectomy however because of cardiac workup and clearance needed another biopsywas done on left breast under ultrasound guidance and it came back also inconclusive in November 2023 which led to excisional biopsy performed on 01/10/2024. The path results of that excisional biopsy done on 01/10/2024 is as follows: Pathological Diagnosis 01/10/2024: Mass, left breast, 7:00, lumpectomy: Invasive ductal carcinoma. Tumor Is 1.7 Cm In Greatest Dimension. Grade 2/ Moderately Differentiated. Tumor is present at the superior surgical margin. Tumor Is less than 0.1 Cm From The anterior and lateral surgical Margins. No Evidence Of Lymphovascular Invasion. Breast Hormone Profile ER: Positive TX: Positive HER2/pat by immunostain: Negative (1+) CAP CANCER CASE SUMMARY SPECIMEN Procedure: Excision [...] (when applicable) pM categories is based on informationavailable to the pathologist at the time the report is issued. As per the AJCC (Chapter 1, 8th Ed.) it is the managing physician's responsibility to establish the final pathologic stage based upon all pertinent information, including but potentially not limited to this pathology report. pT Category: pT1c pN Category: pNx Patient denies any family history of ovarian cancer however she has a cousin with breast cancer. She has a sister with multiple lumps under her breast but there were not cancerous. No known family history of ovarian cancer however hermom had mesothelioma. She does not know her father side because she does not know her biological father. 05/30/24: She is here for further planning of care after her left breast mastectomy and for results of the DEXA scan and Oncotype DX. Patient was sent to Dr. Bustamante for reconstructive breast surgeries as she is electing to go for bilateral mastectomy. She was also sent to our medical oncology clinic for recommendation regarding management of her new left breast cancer that is ER positive TX positive and HER2/pat negative but nolymph nodes were obtained as of this initial consult done on 02/08/2024. Surgery date yet to be determined [address] BRAUN. - Invitae gene testing done 03/01/24 was negative. -Bone density scan done on 02/15/2024 revealed osteopenia with a T-score of -1.4 in the left femoralneck. - Oncotype Dx score was done on the biopsy tissue based on unknown gwen statusat that time revealed: - If she is node-negative: Recurrence score of 5 with distant recurrence risk at 9 years of 3% withendocrine therapy alone with less than 1% benefit from thechemo. - If Node positive and premenopausal: Recurrence score will be 5 with distant recurrence risk at 5 years 3% with her medicine better or endocrine therapy alone and chemo benefit 2.3%. -If she is postmenopausal and node positive the recurrence score is 5 with distant recurrence risk at 5 years with AI or tamoxifen alone is 1% and chemo benefit no apparent benefit noticed as it is less than 1% only. -If she has node positive of 4 or more lymph nodes then recurrence score is 5% and the distant recurrence at 9 years is 35% with AI and tamoxifen alone. -She underwent left breast mastectomy with sentinel node biopsy 05/16/2024, skin sparing with immediate reconstruction with tissue litharge supervisor by Dr. Bustamante. Surgical path from surgery done on 05/16/2024 revealed: A. Left axillary sentinel lymph node 1 out of 2 lymph nodes positive for metastatic carcinoma with mucinous features with extranodal extension again and 1 out of 2 lymph nodes. B. Lymph nodes in the left axillary sentinel lymph node 2 of 6 lymph nodes positive for metastatic carcinoma with mucinous features with extranodal extension. Left breast mastectomy revealed invasive ductal carcinoma with mucinous featuresgrade 2, 1.4 cm in greatest dimension. Ductal carcinoma in situ low-grade cribriform Lymphovascular invasion present Focal invasive carcinoma is present within 1 mm from inked inferior margin. Resection margins negative for DCIS with 5 mm from closest deep margin. Fibrocystic changes characterized by apocrine metaplasia and usual ductal hyperplasia with adenosisand microcalcification. Skin and nipple uninvolved by DCIS or invasive cancer Stage IIA, TNM stage is pT1c, pN1a. Number of lymph nodes with macrometastasis 3 and number of lymph nodes with isolated tumor cells 0 and number of lymph nodes with micrometastasis 0. Extranodal extension is present. ER positive over 90%, TX +80%, HER2 negative (1+), Ki-67 3% 07/31/24: She is here for 1 week toxicity check [facility]. She tolerated C1 without any complaints but has same postnasal drainage for more than 4 weeks evenbefore chemo without sore throat or fevers. She tried Benadryl and can not take steroids due to allergy to steroids. She is scheduled for cycle 2 on 08/08/2024. Labs on 07/30/2024 revealed normal CBC with normal WBC of 5.7 normal ANC of 4.2 and unremarkable CMP. 08/21/24: She is here for evaluation prior to her C3 of the adjuvant ddAC scheduled on 08/22/24. She had mildfatigue and had nausea for 6 days after cycle 2 of dose dense AC but not vomiting and no chest painor shortness of breath or leg edema or abdominal pain or diarrhea. She has chronic peripheral neuropathy even before chemotherapy. No fevers or current infections. Her Zofran she took daily for 6 days after cycle 2 helped her nausea. 14 point review of systems was obtained and was negative. 09/03/24: She presents for cycle 4 ddAC. She continues with fatigue and dyspnea if she exerts herself, otherwise no chest pain or shortness of breath at rest. No change in her neuropathy with treatment. Her nausea has better controlled now that she is taking her antiemetics regularly. She is eating and drinking ok anddenies vomiting, diarrhea, or constipation. She denies other new concerns as well. Her labs remain okay for continued treatment. 09/17/24: She presents to clinic as an add-on for worsening symptoms. Her daughter is concerned that she has pneumonia as she has been having shortness of breath and not eating much at all. Vitals today note significant hypotension and decreasedheart rate. Her oxygen levels on arrival dropped between 70s/80sand she was placed on supplemental oxygen, up to 6 L in office before her sats improved intothe 90s. She has attempted to give a urine sample as she has concern for UTI aswell, however was not able to go. Given acute symptoms, we have decided to sendher to the ED for further evaluation. 09/19/24: She is admitted with a hemoglobin of 5.6 and found to have pneumonia as well as UTI during this admission evaluation with urine culture and was transfused 2 units of packed RBC and brought her hemoglobin up to 7.7 on 09/19/2024. Her platelet on admission on 09/17/2024 was 24K on 09/17/24 and they are 38K on 09/19/24 without evidence or signs of clinical bleeding. - Medical oncology was consulted for further recommendation regarding her anemia, thrombocytopenia and left breast cancer treatment considering that she missed her week 1 of the weekly Taxol scheduled on 09/18/24. Clinically she denied any melena or rectal bleeding or gross hematuria. She denies any hemoptysis however she has some right lower chest discomfort and cough likely from her pneumonia. She has some burning with her urination as well. Review of Systems Review of Systems All other systems reviewed & are negative unless noted below or in HPI Review of systems: She complains of right lower chest discomfort and cough productive to phlegm butno hemoptysis. She has also mild shortness of breath. She had low-grade fever as well and has dysuria as well otherwiseher 14 point systems were reviewed andare negative. [facility] Medical History Osteopenia Encounter for screening for osteoporosis Breast cancer, left Hypertension Surgical History History of knee surgery bilateral History of lumpectomy of left breast History of cholecystectomy History of appendectomy History of hysterectomy History of foot surgery multiple bilateral Family History Family/Other Breast cancer Social History Smoking Status: Former smoker Tobacco Type: cigarettes Substance Use Type: Prescribed and Marijuana Substance Abuse Comment: marijuana medical Allergies Corticosteroids (Glucocorticoids) Allergy (Verified 09/17/24 12:38) Unknown Reaction metaxalone (From Skelaxin) Allergy (Verified 09/17/24 12:38) Unknown Reaction entex Allergy (Uncoded 02/08/24 15:18) Unknown Reaction Home Medications alprazolam 0.25 mg tablet 0.25 mg PO TID PRN anxiety 02/08/24 [History Confirmed 09/17/24] aspirin 81 mg tablet,delayed release 81 mg PO DAILY 02/08/24 [History Confirmed 09/17/24] cyclobenzaprine 10 mg tablet 10 mg PO HS PRN muscle spasm 02/08/24 [History Confirmed 09/17/24] gabapentin 300 mg capsule 300 mg PO TID 02/08/24 [History Confirmed 09/17/24] losartan 50 mg-hydrochlorothiazide 12.5 mg tablet 1 tab PO DAILY 02/08/24 [History Confirmed 09/17/24] ondansetron 8 mg disintegrating tablet 8 mg PO Q8HR PRN nausea and vomiting #30 tabs 05/30/24 [Rx Confirmed 09/17/24] prochlorperazine maleate 10 mg tablet (Compazine) 10 mg PO Q6HR PRN nausea and vomiting #30 tabs 05/30/24 [Rx Confirmed 09/17/24] naloxone 4 mg/actuation nasal spray 4 mg intranasal Q2-3M PRN opioid overdose #2ea 08/22/24 [Rx Confirmed 09/17/24] oxycodone-acetaminophen 5 mg-325 mg tablet 1 tab PO Q8HR PRN pain 30 days #90 tabs 08/23/24 [Rx Confirmed 09/17/24] cetirizine 10 mg tablet 10 mg PO DAILY 09/17/24 [History Confirmed 09/17/24] fluticasone propionate 50 mcg/actuation nasal spray,suspension 1 spray intranasal BID 09/17/24 [History Confirmed 09/17/24] Exam Physical Exam Vital Signs: Temp Pulse Resp BP Pulse Ox O2 Del Method O2 Flow Rate 97.7 F 105 H 24 147/70 H 95 Room Air 2 09/19/24 08:00 09/19/24 08:00 09/19/24 08:00 09/19/24 08:00 09/19/24 08:00 09/19/24 08:00 09/19/24 04:00 Narrative: HEENT normocephalic atraumatic pupils are equal and round Neck supple without thyromegaly or any cervical lymphadenopathy. Chest no wheezing or rhonchi but fine crackles in the right base. Heart regular rate and rhythm S1-S2 without murmurs. Abdomen soft nontender not distended without hepatosplenomegaly or masses clinically Extremities no edema of the lower extremities Skin without any suspicious rashes Neurological exam patient is cooperative alert and oriented x3 no focal deficits. LABS 09/19/24 04:32: Corrected WBC 10.8, Uncorrected WBC Count 10.8, RBC 2.49 L, Hgb 7.7 L, Hct 22.6 L, MCV 90.8, MCH 30.9, MCHC 34.0, RDW 14.7, Plt Count 38 L*, MPV9.3, Neut % (Auto) N/A, Lymph % (Auto) N/A, [place] % (Auto) N/A, Eos % (Auto) N/A,Baso % (Auto) N/A, Nucleat RBC Rel Count N/A, Neut # (Auto)N/A, Lymph # (Auto) N/A, [place] # (Auto) N/A, Eos # (Auto) N/A, Baso # (Auto) N/A, Band Neutrophils %2, Lymphocytes % 5 L, Monocytes % 11, Metamyelocytes % 5 H, Myelocytes % 3 H, Segmented [id number] H, Nucleated RBCs/100 WBC 1 H, Reactive Lymphocytes 1, Toxic Granulation Moderate, Platelet Estimate Decreased, Giant Platelets 1, Plt Morphology Comment Normal, RBC Morphology N/A, Polychromasia Slight, Hypochromasia Slight, Anisocytosis Slight, Ovalocytes Slight, Schistocytes Slight, PHA Creatinine Clear 67.49, Sodium 138, Potassium 3.5, Chloride 106, Carbon Dioxide 25.0, Anion Gap 10.5, BUN22, Creatinine 0.82, Est GFR (CKD-EPI) > 60.0, Glucose 104 H, Calcium 8.3 L, Total Bilirubin 0.8, AST 69 H, ALT 56 H, Alkaline Phosphatase 161 H, Total Protein 5.7 L, Albumin 2.8 L, Globulin 2.9, Albumin/Globulin Ratio 1.0 Assessment & Plan (1) Pneumonia: Code(s): J18.9 - Pneumonia, unspecified organism (2) Bacteremia due to Streptococcus pneumoniae: Code(s): R78.81 - Bacteremia; B95.3 - Streptococcus pneumoniae as the cause of diseases classified elsewhere (3) Acute anemia: Code(s): D64.9 - Anemia, unspecified (4) UTI (urinary tract infection): Code(s): N39.0 - Urinary tract infection, site not specified (5) Breast cancer, left: Code(s): C50.912 - Malignant neoplasm of unspecified site of left female breast (6) Osteopenia: Code(s): M85.80 - Other specified disorders of bone density and structure, unspecified site Plan 1. Pneumonia. Managed by primary service with IV antibiotics. Managed by the hospitalist with 2. UTI. IV antibiotics. 3. Acute anemia without evidence of bleeding, likely chemo induces. - Transfuse PRBC as needed to maintain Hgb over 7.0. 4. Thrombocytopenia: chemo induced. Plt is 38K on 09/19/24, it was 24 on admission on 09/17/24. No signs of bleeding clinically. - Transfuse platelet if plt count decreases to less than 15K. 5. left Breast cancer: 6. Osteopenia: In regards to her breast cancer, her biopsy was done on 01/10/2024 it reveals pT1c, pNX, ER positive,TX positive, HER2/pat negative (1+), no DCIS, tumor sizeof the invasive ductal carcinoma is 1.7 cm at least with positive superior margin and no lymphovascular invasion detected. No lymph nodes included in the biopsy. - [employer] gene testing done 03/01/24 was negative. - Oncotype Dx score was done on the biopsy tissue based on unknown gwen statusat that time revealed: - If she is node-negative: Recurrence score of 5 with distant recurrence risk at 9 years of 3% withendocrine therapy alone with less than 1% benefit from thechemo. - If Node positive and premenopausal: Recurrence score will be 5 with distant recurrence risk at 5 years 3% with her medicine better or endocrine therapy alone and chemo benefit 2.3%. -If she is postmenopausal and node positive the recurrence score is 5 with distant recurrence risk at 5 years with AI or tamoxifen alone is 1% and chemo benefit no apparent benefit noticed as it is less than 1% only. -If she has node positive of 4 or more lymph nodes then recurrence score is 5% and the distant recurrence at 9 years is 35% with AI and tamoxifen alone. -She underwent left breast mastectomy with sentinel node biopsy 05/16/2024, skin sparing with immediate reconstruction with tissue litharge supervisor by Dr. Bustamante. Surgical path from surgery done on 05/16/2024 revealed: A. Left axillary sentinel lymph node 1 out of 2 lymph nodes positive for metastatic carcinoma with mucinous features with extranodal extension again and 1 out of 2 lymph nodes. B. Lymph nodes in the left axillary sentinel lymph node 2 of 6 lymph nodes positive for metastatic carcinoma with mucinous features with extranodal extension. Left breast mastectomy revealed invasive ductal carcinoma with mucinous featuresgrade 2, 1.4 cm in greatest dimension. Ductal carcinoma in situ low-grade cribriform Lymphovascular invasion present Focal invasive carcinoma is present within 1 mm from inked inferior margin. Resection margins negative for DCIS with 5 mm from closest deep margin. Fibrocystic changes characterized by apocrine metaplasia and usual ductal hyperplasia with adenosisand microcalcification. Skin and nipple uninvolved by DCIS or invasive cancer Stage IIA, TNM stage is pT1c, pN1a. Number of lymph nodes with macrometastasis 3 and number of lymph nodes with isolated tumor cells 0 and number of lymph nodes with micrometastasis 0. Extranodal extension is present. ER positive over 90%, TX +80%, HER2 negative (1+), Ki-67 3% Treatment plan: After discussing the above findings from the surgical path with her and considering that she has extranodal extension of 3 out of 6 lymph nodes and lymphovascular invasion positive with 1.4 cm tumor that is grade 2, I recommended adjuvant chemo using dose dense AC followed by T followed by adjuvantradiation followed by adjuvant endocrine therapy. She agreed and started cycle 1 of dose dense AC obtained or given on 07/24/2024. She tolerated ddAC well except with C4 09/05/24 she developed SOB, ills feeling and hgb of 5.6 , now required admission. 09/17/24: Patient sent to ED for worsening symptoms, we held off on initiation ofTaxol this week given acute concerns. PLAN: Continue managing her pneumonia and urinary tract infection as per the primary service hospitalist with antibiotics as per their discretion. Follow her CBC daily while she is inpatient and transfuse her packed RBC to maintain her hemoglobinover 7.0 and transfuse her platelet to maintain her platelet over 15,000 if needed. If she is clinically bleeding then maintain a platelet over 50,000. Will delay her week one of the weekly Taxol for couple of weeks until I see her back in 2 weeks from now in my clinic. From the hematology standpoint she can be discharged anytime to the hospital service feels appropriate. She needs to follow-up with me in 2 weeks hoping to be able to start week one of the Taxol. Allieeds to continue weekly CBC as outpatient. Treatment Plan Paclitaxel 80mg/m2 Weekly x 4 weeks Clinical Indication No Indication Cycle Number Last Admin 1 of 3 Cycle Day Next Admin No Active Chemotherapy Documented By: Kush Glez MD 09/19/24 1132 Signed By: <Electronically signed by Kush Glez MD> 09/19/24 1150 [facility] Work Phone: [phone]) 953-822401-16-2025 [place] [address] Hospitalist Progress Note Signed Patient: Adelina Mir MR#: [id number] : 1960 Acct:[id number] Age/Sex: 63 / F Adm Date: 5 Loc: Room: [address] [place] [address] Type: ADM IN Attending Dr: Joe Garcia MD Copies to: ~ Date of Service: 09/19/2024 Subjective Subjective Narrative: Patient was seen and evaluated at bedside, she is doing clinically much better, she had a fever overnight, WBC has normalized, H&H seems to be stable, patient still has a cough mostly dry nonproductive, urinary symptoms improved, today seems to be doing well off oxygen, saturating 95% on room air, however she gets tachycardic in 150s 180s upon ambulation. Patient tolerating diet, denies any na usea vomiting or abdominal pain. ID following. Exam Physical Exam Vital Signs: Temp Pulse Resp BP Pulse Ox O2 Del Method O2 Flow Rate 98.4 F 104 H 22 119/71 95 Room Air 2 09/19/24 11:43 09/19/24 11:43 09/19/24 11:43 09/19/24 11:43 09/19/24 11:43 09/19/24 11:43 09/19/24 04:00 Narrative: Const General: cooperative, tired appearing, cachectic appearing HEENT Normal oropharyngeal mucosa without any ulcers or exudates Eyes: Conjunctiva normal Pulmonary Auscultation: Diminished breath sounds, right-sided rhonchi, no wheezes Chest: catheter noted on R chest Cardiovascular Rate: normal rate Rhythm: regular rhythm Heart Sounds: S1 normal, S2 normal and no murmurs GI Inspection: non-distended Palpation: soft, not firm and nontender. No rigidity or rebound. Deferred Neuro General: alert, awake and oriented x3. No obvious new focal deficit Musculoskeletal: normal range of motion Extrem General: no cyanosis, no pedal edema Psych Appearance: appropriate affect. Grossly normal, pleasant Objective Lab Results 09/19/24 04:32 09/19/24 04:32 Microbiology Results Microbiology 09/17/24 13:10 Blood - Right Antecubital Blood Culture - Preliminary Streptococcus pneumoniae 09/17/24 12:58 Blood - Port Blood Culture - Preliminary Streptococcus pneumoniae 09/17/24 12:58 Blood - Port Bacterial ID (NA Multiplex Assay) - Final 09/17/24 13:43 Urine - Straight Cath Urine Culture - Final Escherichia coli Meds Allergies and Active Meds Allergies Corticosteroids (Glucocorticoids) Allergy (Verified 09/17/24 12:38) Unknown Reaction metaxalone (From Skelaxin) Allergy (Verified 09/17/24 12:38) Unknown Reaction entex Allergy (Uncoded 02/08/24 15:18) Unknown Reaction Active Meds: Active Medications Generic Name Dose Route Start Last Admin Trade Name Freq PRN Reason Stop Dose Admin Acetaminophen 650 mg 09/17/24 15:09 09/19/24 00:12 Acetaminophen 325 Mg Tablet PO 09/17/25 15:08 650 mg Q6HR PRN Administration Pain Scale 1 - 3 or fever Alprazolam 0.25 mg 09/17/24 16:52 Alprazolam 0.25 Mg Tablet PO 03/16/25 16:51 TID PRN anxiety Benzonatate 200 mg 09/17/24 16:49 09/19/24 06:55 Benzonatate 100 Mg Capsule PO 09/17/25 16:48 200 mg TID PRN Administration Cough Ceftriaxone Sodium 2 gm 09/18/24 13:00 09/18/24 14:29 Ceftriaxone 2 Gm/20 Ml Syringe IV-PUSH 2 gm DAILY@1300 IVY Administration Cyclobenzaprine HCl 10 mg 09/17/24 22:00 09/18/24 21:10 Cyclobenzaprine 10 Mg Tablet PO 09/17/25 21:59 10 mg HS PRN Administration Muscle Spasticity Fluticasone Propionate 1 spray 09/17/24 21:00 09/19/24 08:14 Fluticasone Propionate Amalia 120 Amalia/16 Gm Bottle INTRANASAL 09/17/25 20:59 1 spray BID IVY Administration Gabapentin 300 mg 09/17/24 22:00 09/19/24 08:14 Gabapentin 300 Mg Capsule PO 09/17/25 21:59 300 mg TID IVY Administration Guaifenesin 1,200 mg 09/17/24 21:00 09/19/24 08:14 Guaifenesin 600 Mg Tab.Er.12h PO 09/17/25 20:59 1,200 mg BID IVY Administration Lactated Ringer's 1,000 mls @ 75 mls/hr 09/17/24 15:15 09/19/24 11:53 Lactated Ringers IV 09/17/25 15:14 75 mls/hr .[id number] IVY Administration Ipratropium Otis 0.5 mg 09/19/24 12:00 Ipratropium Otis 0.5 Mg/2.5 Ml Vial.Neb INHALATION 09/19/25 11:59 QID.RESP IVY Metoprolol Succinate 25 mg 09/19/24 10:30 09/19/24 11:45 Metoprolol Succinate 25 Mg Tab.Er.24h PO 09/19/25 10:29 25 mg DAILY IVY Administration Morphine Sulfate 2 mg 09/17/24 15:09 09/19/24 04:32 Morphine Sulfate 2 Mg/Ml Vial IV-PUSH 2 mg Q4H PRN Administration Pain Scale 8 - 10 Oxycodone/Acetaminophen 1 tab 09/17/24 16:52 09/19/24 08:14 Oxycodone/Acetaminophen 5-325 Mg Tablet PO 1 tab Q8HR PRN Administration pain Pantoprazole Sodium 40 mg 09/18/24 09:00 09/19/24 08:15 Pantoprazole 40 Mg Vial IV-PUSH 09/18/25 08:59 40 mg DAILY IVY Administration Prochlorperazine Edisylate 5 mg 09/17/24 15:09 Prochlorperazine Edisylate 10 Mg/2 Ml Vial IV-PUSH 09/17/25 15:08 Q4H PRN Nausea And Vomiting Sodium Chloride 0 ml 09/17/24 12:37 09/19/24 08:15 Sodium Chloride 0.9 % 10 Ml Syringe IV-PUSH 09/17/25 12:36 10 ml PRN PRN Administration Flush Sodium Chloride 10 ml 09/17/24 16:45 09/19/24 08:15 Sodium Chloride 0.9 % 10 Ml Vial.Pf INJECTION 09/17/25 16:44 10 ml PRN PRN Administration Dilution Sodium Chloride 10 ml 09/17/24 16:45 Sodium Chloride 0.9 % 10 Ml Syringe IV-PUSH 09/17/25 16:44 PRN PRN Flush A&P - Hospitalist Assessment/Plan (1) Pancytopenia: (2) UTI (urinary tract infection): (3) Pneumonia: (4) Acute anemia: Plan Acute hypoxic respiratory failure secondary to right-sided pneumonia (RML and RLL) Known recent diagnosis of breast cancer on chemo (4 rounds, last dose 09/05/24) Hypotensive on admission Strep pneumonia bacteremia PE ruled out Immunocompromised state -Afebrile, no leukocytosis -CT chest no PE, has consolidation RML and RLL -Continue AB as per ID. -Antitussive agents as needed as directed -Initial blood cx showed strep pneumonia. Repeat Blood culture pending. -Oxygen supplements as needed -Monitor for fever/leukocytosis ROSAMARIA likely secondary to volume depletion due to poor oral intake - improving Acute cystitis Hyponatremia/hypokalemia/metabolic alkalosis - urine culture E.coli. -Optimized electrolytes to keep K>4, Mg>2, P>3 -Avoid nephrotoxic medications Acute anemia Acute thrombocytopenia -Likely chemo induced -Ordered 2 units of blood in ER. H/H improved to 7.7 and stable. -PLT count 24 on admission. PLT today 38. no signs of overt GI bleed or any active bleed. monitor for now. Elevated troponin likely demand ischemia due to ROSAMARIA, infectious process, severe volume depletion -Trend trop> flat curve -Recet Echo seems normal EF and LV function. Elevated LFTs likely due to sepsis/bacteremia -Improving Home medications resumed as appropriate Diet: regular DVT ppx: SCDs GI ppx: PPI Code status: Full Status: inpatient Discussed with patient at bedside. All questions answered. In agreement with theabove plan Joe Dinero MD Internal Medicine Hospitalist Attending Physician Documented By: Joe Garcia MD 09/19/24 12 05 Signed By: 09/19/[address] [place], [place] 8408301-16-[address] [place] [address] Med Onc/Hem Consult Note Signed Patient: Adelina Mir MR#: [id number] : 1960 Acct:[id number] Age/Sex: 63 / F Adm Date: 5 Loc: Room: [address] [place] [address] Type: ADM IN Attending Dr: Joe Garcia MD Copies to: MD Joe Ballard MD Samuel E Ross MD~ CONSULT DATE: 09/19/2024 REQUESTING PROVIDER: Joe Garcia MD REASON FOR CONSULT: Breast cancer currently on chemo HISTORY OF PRESENT: Adelina is a 63-year-old nice lady with left breast cancer currently on chemotherapy with dose denseAC received the last dose for cycle 4 on 09/05/2024 and was supposed to start her weekly Taxol on 09/18/2024 however when she was seen in our clinic she was short of breath and looking very ill and therefore she was sent to emergency room and she was admitted with pneumonia, UTI and acute anemia with hemoglobin 5.6 required IV antibiotics and 2 units of packed RBC transfusion. Medical oncology was consulted for management of her left breast cancer while onchemotherapy and had acute anemia chemo related as well as thrombocytopenia which is chemo related. She has history of generalized anxiety disorder, ADHD, complex regional pain syndrome of the lower extremity, essential tremor, hypertension and osteoarthritis to has idiopathic polyneuropathy and scoliosis with history of intermittent marijuana use as needed for pain control who was referred to our medical oncology clinic by Dr. Braun for new findings of new left breast invasiveductal carcinoma grade 2, ER positive, TX positive, HER2/pat negative 1+, 1.7 cmat least invasive ductal carcinoma, negative for lymphovascular invasion, positive superior margin of the invasive cancer, no DCIS presents and no lymph nodes were obtained as per the biopsy done on 01/10/2024. Patient has been havingintermittent nipple discharge with possible fistula from the left breast but no nipple bleeding for several months. She had BI-RADS 3 screening mammogram in April 2023 which was followed by ultrasound patient underwent initial biopsy ofthe suspicious left breast lesion on 07/12/2023 however results of thepath of that biopsy was consistent with fibrovascular adipose tissue with no pathology present. Patient continues to have nipple discharge and Dr. Braun plan to do a lumpectomy however because of cardiac workup and clearance needed another biopsywas done on left breast under ultrasound guidance and it came back also inconclusive in November 2023 which led to excisional biopsy performed on 01/10/2024. The path results of that excisional biopsy done on 01/10/2024 is as follows: Pathological Diagnosis 01/10/2024: Mass, left breast, 7:00, lumpectomy: Invasive ductal carcinoma. Tumor Is 1.7 Cm In Greatest Dimension. Grade 2/ Moderately Differentiated. Tumor is present at the superior surgical margin. Tumor Is less than 0.1 Cm From The anterior and lateral surgical Margins. No Evidence Of Lymphovascular Invasion. Breast Hormone Profile ER: Positive TX: Positive HER2/pat by immunostain: Negative (1+) CAP CANCER CASE SUMMARY SPECIMEN Procedure: Excision [...] (when applicable) pM categories is based on informationavailable to the pathologist at the time the report is issued. As per the AJCC (Chapter 1, 8th Ed.) it is the managing physician's responsibility to establish the final pathologic stage based upon all pertinent information, including but potentially not limited to this pathology report. pT Category: pT1c pN Category: pNx Patient denies any family history of ovarian cancer however she has a cousin with breast cancer. She has a sister with multiple lumps under her breast but there were not cancerous. No known family history of ovarian cancer however hermom had mesothelioma. She does not know her father side because she does not know her biological father. 05/30/24: She is here for further planning of care after her left breast mastectomy and for results of the DEXA scan and Oncotype DX. Patient was sent to Dr. Bustamante for reconstructive breast surgeries as she is electing to go for bilateral mastectomy. She was also sent to our medical oncology clinic for recommendation regarding management of her new left breast cancer that is ER positive TX positive and HER2/pat negative but nolymph nodes were obtained as of this initial consult done on 02/08/2024. Surgery date yet to be determined [address] BRAUN. - Invitae gene testing done 03/01/24 was negative. -Bone density scan done on 02/15/2024 revealed osteopenia with a T-score of -1.4 in the left femoralneck. - Oncotype Dx score was done on the biopsy tissue based on unknown gwen statusat that time revealed: - If she is node-negative: Recurrence score of 5 with distant recurrence risk at 9 years of 3% withendocrine therapy alone with less than 1% benefit from thechemo. - If Node positive and premenopausal: Recurrence score will be 5 with distant recurrence risk at 5 years 3% with her medicine better or endocrine therapy alone and chemo benefit 2.3%. -If she is postmenopausal and node positive the recurrence score is 5 with distant recurrence risk at 5 years with AI or tamoxifen alone is 1% and chemo benefit no apparent benefit noticed as it is less than 1% only. -If she has node positive of 4 or more lymph nodes then recurrence score is 5% and the distant recurrence at 9 years is 35% with AI and tamoxifen alone. -She underwent left breast mastectomy with sentinel node biopsy 05/16/2024, skin sparing with immediate reconstruction with tissue litharge supervisor by Dr. Bustamante. Surgical path from surgery done on 05/16/2024 revealed: A. Left axillary sentinel lymph node 1 out of 2 lymph nodes positive for metastatic carcinoma with mucinous features with extranodal extension again and 1 out of 2 lymph nodes. B. Lymph nodes in the left axillary sentinel lymph node 2 of 6 lymph nodes positive for metastatic carcinoma with mucinous features with extranodal extension. Left breast mastectomy revealed invasive ductal carcinoma with mucinous featuresgrade 2, 1.4 cm in greatest dimension. Ductal carcinoma in situ low-grade cribriform Lymphovascular invasion present Focal invasive carcinoma is present within 1 mm from inked inferior margin. Resection margins negative for DCIS with 5 mm from closest deep margin. Fibrocystic changes characterized by apocrine metaplasia and usual ductal hyperplasia with adenosisand microcalcification. Skin and nipple uninvolved by DCIS or invasive cancer Stage IIA, TNM stage is pT1c, pN1a. Number of lymph nodes with macrometastasis 3 and number of lymph nodes with isolated tumor cells 0 and number of lymph nodes with micrometastasis 0. Extranodal extension is present. ER positive over 90%, TX +80%, HER2 negative (1+), Ki-67 3% 07/31/24: She is here for 1 week toxicity check [facility]. She tolerated C1 without any complaints but has same postnasal drainage for more than 4 weeks evenbefore chemo without sore throat or fevers. She tried Benadryl and can not take steroids due to allergy to steroids. She is scheduled for cycle 2 on 08/08/2024. Labs on 07/30/2024 revealed normal CBC with normal WBC of 5.7 normal ANC of 4.2 and unremarkable CMP. 08/21/24: She is here for evaluation prior to her C3 of the adjuvant ddAC scheduled on 08/22/24. She had mildfatigue and had nausea for 6 days after cycle 2 of dose dense AC but not vomiting and no chest painor shortness of breath or leg edema or abdominal pain or diarrhea. She has chronic peripheral neuropathy even before chemotherapy. No fevers or current infections. Her Zofran she took daily for 6 days after cycle 2 helped her nausea. 14 point review of systems was obtained and was negative. 09/03/24: She presents for cycle 4 ddAC. She continues with fatigue and dyspnea if she exerts herself, otherwise no chest pain or shortness of breath at rest. No change in her neuropathy with treatment. Her nausea has better controlled now that she is taking her antiemetics regularly. She is eating and drinking ok anddenies vomiting, diarrhea, or constipation. She denies other new concerns as well. Her labs remain okay for continued treatment. 09/17/24: She presents to clinic as an add-on for worsening symptoms. Her daughter is concerned that she has pneumonia as she has been having shortness of breath and not eating much at all. Vitals today note significant hypotension and decreasedheart rate. Her oxygen levels on arrival dropped between 70s/80sand she was placed on supplemental oxygen, up to 6 L in office before her sats improved intothe 90s. She has attempted to give a urine sample as she has concern for UTI aswell, however was not able to go. Given acute symptoms, we have decided to sendher to the ED for further evaluation. 09/19/24: She is admitted with a hemoglobin of 5.6 and found to have pneumonia as well as UTI during this admission evaluation with urine culture and was transfused 2 units of packed RBC and brought her hemoglobin up to 7.7 on 09/19/2024. Her platelet on admission on 09/17/2024 was 24K on 09/17/24 and they are 38K on 09/19/24 without evidence or signs of clinical bleeding. - Medical oncology was consulted for further recommendation regarding her anemia, thrombocytopenia and left breast cancer treatment considering that she missed her week 1 of the weekly Taxol scheduled on 09/18/24. Clinically she denied any melena or rectal bleeding or gross hematuria. She denies any hemoptysis however she has some right lower chest discomfort and cough likely from her pneumonia. She has some burning with her urination as well. Review of Systems Review of Systems All other systems reviewed & are negative unless noted below or in HPI Review of systems: She complains of right lower chest discomfort and cough productive to phlegm butno hemoptysis. She has also mild shortness of breath. She had low-grade fever as well and has dysuria as well otherwiseher 14 point systems were reviewed andare negative. [facility] Medical History Osteopenia Encounter for screening for osteoporosis Breast cancer, left Hypertension Surgical History History of knee surgery bilateral History of lumpectomy of left breast History of cholecystectomy History of appendectomy History of hysterectomy History of foot surgery multiple bilateral Family History Family/Other Breast cancer Social History Smoking Status: Former smoker Tobacco Type: cigarettes Substance Use Type: Prescribed and Marijuana Substance Abuse Comment: marijuana medical Allergies Corticosteroids (Glucocorticoids) Allergy (Verified 09/17/24 12:38) Unknown Reaction metaxalone (From Skelaxin) Allergy (Verified 09/17/24 12:38) Unknown Reaction entex Allergy (Uncoded 02/08/24 15:18) Unknown Reaction Home Medications alprazolam 0.25 mg tablet 0.25 mg PO TID PRN anxiety 02/08/24 [History Confirmed 09/17/24] aspirin 81 mg tablet,delayed release 81 mg PO DAILY 02/08/24 [History Confirmed 09/17/24] cyclobenzaprine 10 mg tablet 10 mg PO HS PRN muscle spasm 02/08/24 [History Confirmed 09/17/24] gabapentin 300 mg capsule 300 mg PO TID 02/08/24 [History Confirmed 09/17/24] losartan 50 mg-hydrochlorothiazide 12.5 mg tablet 1 tab PO DAILY 02/08/24 [History Confirmed 09/17/24] ondansetron 8 mg disintegrating tablet 8 mg PO Q8HR PRN nausea and vomiting #30 tabs 05/30/24 [Rx Confirmed 09/17/24] prochlorperazine maleate 10 mg tablet (Compazine) 10 mg PO Q6HR PRN nausea and vomiting #30 tabs 05/30/24 [Rx Confirmed 09/17/24] naloxone 4 mg/actuation nasal spray 4 mg intranasal Q2-3M PRN opioid overdose #2ea 08/22/24 [Rx Confirmed 09/17/24] oxycodone-acetaminophen 5 mg-325 mg tablet 1 tab PO Q8HR PRN pain 30 days #90 tabs 08/23/24 [Rx Confirmed 09/17/24] cetirizine 10 mg tablet 10 mg PO DAILY 09/17/24 [History Confirmed 09/17/24] fluticasone propionate 50 mcg/actuation nasal spray,suspension 1 spray intranasal BID 09/17/24 [History Confirmed 09/17/24] Exam Physical Exam Vital Signs: Temp Pulse Resp BP Pulse Ox O2 Del Method O2 Flow Rate 97.7 F 105 H 24 147/70 H 95 Room Air 2 09/19/24 08:00 09/19/24 08:00 09/19/24 08:00 09/19/24 08:00 09/19/24 08:00 09/19/24 08:00 09/19/24 04:00 Narrative: HEENT normocephalic atraumatic pupils are equal and round Neck supple without thyromegaly or any cervical lymphadenopathy. Chest no wheezing or rhonchi but fine crackles in the right base. Heart regular rate and rhythm S1-S2 without murmurs. Abdomen soft nontender not distended without hepatosplenomegaly or masses clinically Extremities no edema of the lower extremities Skin without any suspicious rashes Neurological exam patient is cooperative alert and oriented x3 no focal deficits. LABS 09/19/24 04:32: Corrected WBC 10.8, Uncorrected WBC Count 10.8, RBC 2.49 L, Hgb 7.7 L, Hct 22.6 L, MCV 90.8, MCH 30.9, MCHC 34.0, RDW 14.7, Plt Count 38 L*, MPV9.3, Neut % (Auto) N/A, Lymph % (Auto) N/A, [place] % (Auto) N/A, Eos % (Auto) N/A,Baso % (Auto) N/A, Nucleat RBC Rel Count N/A, Neut # (Auto)N/A, Lymph # (Auto) N/A, [place] # (Auto) N/A, Eos # (Auto) N/A, Baso # (Auto) N/A, Band Neutrophils %2, Lymphocytes % 5 L, Monocytes % 11, Metamyelocytes % 5 H, Myelocytes % 3 H, Segmented Sjezwvistat39 H, Nucleated RBCs/100 WBC 1 H, Reactive Lymphocytes 1, Toxic Granulation Moderate, Platelet Estimate Decreased, Giant Platelets 1, Plt Morphology Comment Normal, RBC Morphology N/A, Polychromasia Slight, Hypochromasia Slight, Anisocytosis Slight, Ovalocytes Slight, Schistocytes Slight, PHA Creatinine Clear 67.49, Sodium 138, Potassium 3.5, Chloride 106, Carbon Dioxide 25.0, Anion Gap 10.5, BUN22, Creatinine 0.82, Est GFR (CKD-EPI) > 60.0, Glucose 104 H, Calcium 8.3 L, Total Bilirubin 0.8, AST 69 H, ALT 56 H, Alkaline Phosphatase 161 H, Total Protein 5.7 L, Albumin 2.8 L, Globulin 2.9, Albumin/Globulin Ratio 1.0 Assessment & Plan (1) Pneumonia: Code(s): J18.9 - Pneumonia, unspecified organism (2) Bacteremia due to Streptococcus pneumoniae: Code(s): R78.81 - Bacteremia; B95.3 - Streptococcus pneumoniae as the cause of diseases classified elsewhere (3) Acute anemia: Code(s): D64.9 - Anemia, unspecified (4) UTI (urinary tract infection): Code(s): N39.0 - Urinary tract infection, site not specified (5) Breast cancer, left: Code(s): C50.912 - Malignant neoplasm of unspecified site of left female breast (6) Osteopenia: Code(s): M85.80 - Other specified disorders of bone density and structure, unspecified site Plan 1. Pneumonia. Managed by primary service with IV antibiotics. Managed by the hospitalist with 2. UTI. IV antibiotics. 3. Acute anemia without evidence of bleeding, likely chemo induces. - Transfuse PRBC as needed to maintain Hgb over 7.0. 4. Thrombocytopenia: chemo induced. Plt is 38K on 09/19/24, it was 24 on admission on 09/17/24. No signs of bleeding clinically. - Transfuse platelet if plt count decreases to less than 15K. 5. left Breast cancer: 6. Osteopenia: In regards to her breast cancer, her biopsy was done on 01/10/2024 it reveals pT1c, pNX, ER positive,TX positive, HER2/pat negative (1+), no DCIS, tumor sizeof the invasive ductal carcinoma is 1.7 cm at least with positive superior margin and no lymphovascular invasion detected. No lymph nodes included in the biopsy. - Invitae gene testing done 03/01/24 was negative. - Oncotype Dx score was done on the biopsy tissue based on unknown gwen statusat that time revealed: - If she is node-negative: Recurrence score of 5 with distant recurrence risk at 9 years of 3% withendocrine therapy alone with less than 1% benefit from thechemo. - If Node positive and premenopausal: Recurrence score will be 5 with distant recurrence risk at 5 years 3% with her medicine better or endocrine therapy alone and chemo benefit 2.3%. -If she is postmenopausal and node positive the recurrence score is 5 with distant recurrence risk at 5 years with AI or tamoxifen alone is 1% and chemo benefit no apparent benefit noticed as it is less than 1% only. -If she has node positive of 4 or more lymph nodes then recurrence score is 5% and the distant recurrence at 9 years is 35% with AI and tamoxifen alone. -She underwent left breast mastectomy with sentinel node biopsy 05/16/2024, skin sparing with immediate reconstruction with tissue litharge supervisor by Dr. Bustamante. Surgical path from surgery done on 05/16/2024 revealed: A. Left axillary sentinel lymph node 1 out of 2 lymph nodes positive for metastatic carcinoma with mucinous features with extranodal extension again and 1 out of 2 lymph nodes. B. Lymph nodes in the left axillary sentinel lymph node 2 of 6 lymph nodes positive for metastatic carcinoma with mucinous features with extranodal extension. Left breast mastectomy revealed invasive ductal carcinoma with mucinous featuresgrade 2, 1.4 cm in greatest dimension. Ductal carcinoma in situ low-grade cribriform Lymphovascular invasion present Focal invasive carcinoma is present within 1 mm from inked inferior margin. Resection margins negative for DCIS with 5 mm from closest deep margin. Fibrocystic changes characterized by apocrine metaplasia and usual ductal hyperplasia with adenosisand microcalcification. Skin and nipple uninvolved by DCIS or invasive cancer Stage IIA, TNM stage is pT1c, pN1a. Number of lymph nodes with macrometastasis 3 and number of lymph nodes with isolated tumor cells 0 and number of lymph nodes with micrometastasis 0. Extranodal extension is present. ER positive over 90%, TX +80%, HER2 negative (1+), Ki-67 3% Treatment plan: After discussing the above findings from the surgical path with her and considering that she has extranodal extension of 3 out of 6 lymph nodes and lymphovascular invasion positive with 1.4 cm tumor that is grade 2, I recommended adjuvant chemo using dose dense AC followed by T followed by adjuvantradiation followed by adjuvant endocrine therapy. She agreed and started cycle 1 of dose dense AC obtained or given on 07/24/2024. She tolerated ddAC well except with C4 09/05/24 she developed SOB, ills feeling and hgb of 5.6 , now required admission. 09/17/24: Patient sent to ED for worsening symptoms, we held off on initiation ofTaxol this week given acute concerns. PLAN: Continue managing her pneumonia and urinary tract infection as per the primary service hospitalist with antibiotics as per their discretion. Follow her CBC daily while she is inpatient and transfuse her packed RBC to maintain her hemoglobinover 7.0 and transfuse her platelet to maintain her platelet over 15,000 if needed. If she is clinically bleeding then maintain a platelet over 50,000. Will delay her week one of the weekly Taxol for couple of weeks until I see her back in 2 weeks from now in my clinic. From the hematology standpoint she can be discharged anytime to the hospital service feels appropriate. She needs to follow-up with me in 2 weeks hoping to be able to start week one of the Taxol. Allieeds to continue weekly CBC as outpatient. Treatment Plan Paclitaxel 80mg/m2 Weekly x 4 weeks Clinical Indication No Indication Cycle Number Last Admin 1 of 3 Cycle Day Next Admin No Active Chemotherapy Documented By: Kush Glez MD 09/19/24 1132 Signed By: 09/19/24 1150 [facility]01-16-2025 Progress note Author Roshan Reynoso [facility]onNote Date/TimeJanuary 2024 9:31am [place] [address] Infect. Disease Progress Note Signed Patient: Adelina Mir MR#: [id number] : 1960 Acct:[id number] Age/Sex: 63 / F Adm Date: 5 Loc: Room: [address] [place] [address] Type: ADM IN Attending Dr: Joe Garcia MD Copies to: ~ Date of Service: 09/19/2024 Subjective Interval history: Patient overall appears comfortable. Still endorsing that she is coughing a lot. She is on room airoxygen. About the breakfast. Exam Physical Exam Vital Signs: Temp Pulse Resp BP Pulse Ox O2 Del Method O2 Flow Rate 97.7 F 105 H 24 147/70 H 95 Room Air 2 09/19/24 08:00 09/19/24 08:00 09/19/24 08:00 09/19/24 08:00 09/19/24 08:00 09/19/24 08:00 09/19/24 04:00 Const General: ill appearing Orientation: oriented x3 HEENT Head: normal to inspection Ears: hearing grossly normal bilaterally Nose: external nose normal Face and sinus: normal facial exam Mouth: oral mucosae normal Eyes General: appearance normal, both eyes and all related structures Neck Neck: normal visual inspection Chest Chest palpation & inspection: abnormal inspection of the chest Resp Effort & Inspection: cough and decreased respiratory effort Auscultation: rhonchi right lower Cardio Rate: tachycardic GI Inspection: normal to inspection Palpation: soft and nontender Skin General: no rashes or lesions noted Neuro General: patient oriented x3 Extrem General: normal to inspection Objective Labs CBC/BMP: CBC, BMP 09/19/24 04:32 Corrected WBC 10.8 Uncorrected WBC Count 10.8 RBC 2.49 L Hgb 7.7 L Hct 22.6 L Plt Count 38 L* Sodium 138 Potassium 3.5 Chloride 106 Carbon Dioxide 25.0 Anion Gap 10.5 BUN 22 Creatinine 0.82 Calcium 8.3 L Labs: 09/19/24 04:32 BUN 22 Creatinine 0.82 Microbiology Microbiology: Microbiology - Results from entire visit 09/17/24 13:43 Urine - Straight Cath Urine Culture - Final Escherichia coli 09/17/24 12:58 Blood - Port Blood Culture - Preliminary Streptococcus pneumoniae 09/17/24 12:58 Blood - Port Bacterial ID (NA Multiplex Assay) - Final 09/17/24 13:10 Blood - Right Antecubital Blood Culture - Preliminary Gram Positive Diplococci 09/17/24 17:24 Nasopharyngeal Respiratory Panel (PCR) - Final Allergies and Medications Allergies and Active Meds Allergies Corticosteroids (Glucocorticoids) Allergy (Verified 09/17/24 12:38) Unknown Reaction metaxalone (From Skelaxin) Allergy (Verified 09/17/24 12:38) Unknown Reaction entex Allergy (Uncoded 02/08/24 15:18) Unknown Reaction Active Medications Acetaminophen (Acetaminophen 325 Mg Tablet) 650 mg PO Q6HR PRN PRN Reason: Pain Scale 1 - 3 or fever Stop: 09/17/25 15:08 Last Admin: 09/19/24 00:12 Dose: 650 mg Alprazolam (Alprazolam 0.25 Mg Tablet) 0.25 mg PO TID PRN PRN Reason: anxiety Stop: 03/16/25 16:51 Benzonatate (Benzonatate 100 Mg Capsule) 200 mg PO TID PRN PRN Reason: Cough Stop: 09/17/25 16:48 Last Admin: 09/19/24 06:55 Dose: 200 mg Ceftriaxone Sodium (Ceftriaxone 2 Gm/20 Ml Syringe) 2 gm IV-PUSH DAILY@1300 IVY Last Admin: 09/18/24 14:29 Dose: 2 gm Cyclobenzaprine HCl (Cyclobenzaprine 10 Mg Tablet) 10 mg PO HS PRN PRN Reason: Muscle Spasticity Stop: 09/17/25 21:59 Last Admin: 09/18/24 21:10 Dose: 10 mg Fluticasone Propionate (Fluticasone Propionate Amalia 120 Amalia/16 Gm Bottle) 1 spray INTRANASAL BIDSCH Stop: 09/17/25 20:59 Last Admin: 09/19/24 08:14 Dose: 1 spray Gabapentin (Gabapentin 300 Mg Capsule) 300 mg PO TID [facility] Stop: 09/17/25 21:59 Last Admin: 09/19/24 08:14 Dose: 300 mg Guaifenesin (Guaifenesin 600 Mg Tab.Er.12h) 1,200 mg PO BID [facility] Stop: 09/17/25 20:59 Last Admin: 09/19/24 08:14 Dose: 1,200 mg Lactated Ringer's (Lactated Ringers) 1,000 mls @ 75 mls/hr IV .[id number] [facility] Stop: 09/17/25 15:14 Last Admin: 09/19/24 06:56 Dose: Not Given Morphine Sulfate (Morphine Sulfate 2 Mg/Ml Vial) 2 mg IV-PUSH Q4H PRN PRN Reason: Pain Scale 8 - 10 Last Admin: 09/19/24 04:32 Dose: 2 mg Oxycodone/Acetaminophen (Oxycodone/Acetaminophen 5-325 Mg Tablet) 1 tab PO [id number] PRN Reason: pain Last Admin: 09/19/24 08:14 Dose: 1 tab Pantoprazole Sodium (Pantoprazole 40 Mg Vial) 40 mg IV-PUSH DAILY [facility] Stop: 09/18/25 08:59 Last Admin: 09/19/24 08:15 Dose: 40 mg Prochlorperazine Edisylate (Prochlorperazine Edisylate 10 Mg/2 Ml Vial) 5 mg IV- PUSH Q4H PRN PRN Reason: Nausea And Vomiting Stop: 09/17/25 15:08 Sodium Chloride (Sodium Chloride 0.9 % 10 Ml Syringe) 0 ml IV-PUSH PRN PRN PRN Reason: Flush Stop: 09/17/25 12:36 Last Admin: 09/19/24 08:15 Dose: 10 ml Sodium Chloride (Sodium Chloride 0.9 % 10 Ml Vial.Pf) 10 ml INJECTION PRN PRN PRN Reason: Dilution Stop: 09/17/25 16:44 Last Admin: 09/19/24 08:15 Dose: 10 ml Sodium Chloride (Sodium Chloride 0.9 % 10 Ml Syringe) 10 ml IV-PUSH PRN PRN PRN Reason: Flush Stop: 09/17/25 16:44 A&P - Infectious Disease Assessment/Plan (1) Bacteremia due to Streptococcus pneumoniae: (2) Pneumonia: (3) Immunosuppressed due to chemotherapy: Plan Chemotherapy for breast cancer she is afebrile and not neutropenic. Blood cultures with Streptococcus pneumonia. Upper respiratory panel with negative target pathogen's. Check urine strep antigen andsputum culture. CT scan as above with consolidations in the right middle and lower lobe. Is likely she hascommunity-acquired pneumonia due to Streptococcus pneumoniae. Patient remains on room air oxygen but still coarse rhonchi appreciated breathing treatment. Continue ceftriaxone Documented By: Roshan Reynoso MD 09/19/24927 Signed By: <Electronically signed by MD Roshan Reynoso> 09/19/2431 [facility] Work Phone: [phone]) 903-367501-16-2025 [place] [address] Infect. Disease Progress Note Signed Patient: Adelina Mir MR#: [id number] : 1960 Acct:[id number] Age/Sex: 63 / F Adm Date: 5 Loc: Room: [address] [place] [address] Type: ADM IN Attending Dr: Joe Garcia MD Copies to: ~ Date of Service: 09/19/2024 Subjective Interval history: Patient overall appears comfortable. Still endorsing that she is coughing a lot. She is on room airoxygen. About the breakfast. Exam Physical Exam Vital Signs: Temp Pulse Resp BP Pulse Ox O2 Del Method O2 Flow Rate 97.7 F 105 H 24 147/70 H 95 Room Air 2 09/19/24 08:00 09/19/24 08:00 09/19/24 08:00 09/19/24 08:00 09/19/24 08:00 09/19/24 08:00 09/19/24 04:00 Const General: ill appearing Orientation: oriented x3 HEENT Head: normal to inspection Ears: hearing grossly normal bilaterally Nose: external nose normal Face and sinus: normal facial exam Mouth: oral mucosae normal Eyes General: appearance normal, both eyes and all related structures Neck Neck: normal visual inspection Chest Chest palpation & inspection: abnormal inspection of the chest Resp Effort & Inspection: cough and decreased respiratory effort Auscultation: rhonchi right lower Cardio Rate: tachycardic GI Inspection: normal to inspection Palpation: soft and nontender Skin General: no rashes or lesions noted Neuro General: patient oriented x3 Extrem General: normal to inspection Objective Labs CBC/BMP: CBC, BMP 09/19/24 04:32 Corrected WBC 10.8 Uncorrected WBC Count 10.8 RBC 2.49 L Hgb 7.7 L Hct 22.6 L Plt Count 38 L* Sodium 138 Potassium 3.5 Chloride 106 Carbon Dioxide 25.0 Anion Gap 10.5 BUN 22 Creatinine 0.82 Calcium 8.3 L Labs: 09/19/24 04:32 BUN 22 Creatinine 0.82 Microbiology Microbiology: Microbiology - Results from entire visit 09/17/24 13:43 Urine - Straight Cath Urine Culture - Final Escherichia coli 09/17/24 12:58 Blood - Port Blood Culture - Preliminary Streptococcus pneumoniae 09/17/24 12:58 Blood - Port Bacterial ID (NA Multiplex Assay) - Final 09/17/24 13:10 Blood - Right Antecubital Blood Culture - Preliminary Gram Positive Diplococci 09/17/24 17:24 Nasopharyngeal Respiratory Panel (PCR) - Final Allergies and Medications Allergies and Active Meds Allergies Corticosteroids (Glucocorticoids) Allergy (Verified 09/17/24 12:38) Unknown Reaction metaxalone (From Skelaxin) Allergy (Verified 09/17/24 12:38) Unknown Reaction entex Allergy (Uncoded 02/08/24 15:18) Unknown Reaction Active Medications Acetaminophen (Acetaminophen 325 Mg Tablet) 650 mg PO Q6HR PRN PRN Reason: Pain Scale 1 - 3 or fever Stop: 09/17/25 15:08 Last Admin: 09/19/24 00:12 Dose: 650 mg Alprazolam (Alprazolam 0.25 Mg Tablet) 0.25 mg PO TID PRN PRN Reason: anxiety Stop: 03/16/25 16:51 Benzonatate (Benzonatate 100 Mg Capsule) 200 mg PO TID PRN PRN Reason: Cough Stop: 09/17/25 16:48 Last Admin: 09/19/24 06:55 Dose: 200 mg Ceftriaxone Sodium (Ceftriaxone 2 Gm/20 Ml Syringe) 2 gm IV-PUSH DAILY@1300 IVY Last Admin: 09/18/24 14:29 Dose: 2 gm Cyclobenzaprine HCl (Cyclobenzaprine 10 Mg Tablet) 10 mg PO HS PRN PRN Reason: Muscle Spasticity Stop: 09/17/25 21:59 Last Admin: 09/18/24 21:10 Dose: 10 mg Fluticasone Propionate (Fluticasone Propionate Amalia 120 Amalia/16 Gm Bottle) 1 spray INTRANASAL [facility]LY [facility] Stop: 09/17/25 20:59 Last Admin: 09/19/24 08:14 Dose: 1 spray Gabapentin (Gabapentin 300 Mg Capsule) 300 mg PO TID [facility] Stop: 09/17/25 21:59 Last Admin: 09/19/24 08:14 Dose: 300 mg Guaifenesin (Guaifenesin 600 Mg Tab.Er.12h) 1,200 mg PO BID [facility] Stop: 09/17/25 20:59 Last Admin: 09/19/24 08:14 Dose: 1,200 mg Lactated Ringer's (Lactated Ringers) 1,000 mls @ 75 mls/hr IV .[id number] [facility] Stop: 09/17/25 15:14 Last Admin: 09/19/24 06:56 Dose: Not Given Morphine Sulfate (Morphine Sulfate 2 Mg/Ml Vial) 2 mg IV-PUSH Q4H PRN PRN Reason: Pain Scale 8 - 10 Last Admin: 09/19/24 04:32 Dose: 2 mg Oxycodone/Acetaminophen (Oxycodone/Acetaminophen 5-325 Mg Tablet) 1 tab PO [id number] PRN Reason: pain Last Admin: 09/19/24 08:14 Dose: 1 tab Pantoprazole Sodium (Pantoprazole 40 Mg Vial) 40 mg IV-PUSH DAILY [facility] Stop: 09/18/25 08:59 Last Admin: 09/19/24 08:15 Dose: 40 mg Prochlorperazine Edisylate (Prochlorperazine Edisylate 10 Mg/2 Ml Vial) 5 mg IV- PUSH Q4H PRN PRN Reason: Nausea And Vomiting Stop: 09/17/25 15:08 Sodium Chloride (Sodium Chloride 0.9 % 10 Ml Syringe) 0 ml IV-PUSH PRN PRN PRN Reason: Flush Stop: 09/17/25 12:36 Last Admin: 09/19/24 08:15 Dose: 10 ml Sodium Chloride (Sodium Chloride 0.9 % 10 Ml Vial.Pf) 10 ml INJECTION PRN PRN PRN Reason: Dilution Stop: 09/17/25 16:44 Last Admin: 09/19/24 08:15 Dose: 10 ml Sodium Chloride (Sodium Chloride 0.9 % 10 Ml Syringe) 10 ml IV-PUSH PRN PRN PRN Reason: Flush Stop: 09/17/25 16:44 A&P - Infectious Disease Assessment/Plan (1) Bacteremia due to Streptococcus pneumoniae: (2) Pneumonia: (3) Immunosuppressed due to chemotherapy: Plan Chemotherapy for breast cancer she is afebrile and not neutropenic. Blood cultures with Streptococcus pneumonia. Upper respiratory panel with negative target pathogen's. Check urine strep antigen andsputum culture. CT scan as above with consolidations in the right middle and lower lobe. Is likely she hascommunity-acquired pneumonia due to Streptococcus pneumoniae. Patient remains on room air oxygen but still coarse rhonchi appreciated breathing treatment. Continue ceftriaxone Documented By: Roshan Reynoso MD 09/19/24 0928 Signed By: 09/19/24 0931 [facility]01-15-2025 History and physical note Author Joe Garcia [facility] Date/TimeJanuary 2024 1:28pm [place] [address] Hospitalist H&P Signed with Addenda Patient: Adelina Mir MR#: [id number] : 1960 Acct:[id number] Age/Sex: 63 / F Adm Date: 5 Loc: Room: [address] [place] [address] Type: ADM IN Attending Dr: Joe Garcia MD Copies to: MD Michael Herrmann MD~ ADDENDUM1 Sepsis protocol followed on admission perfusion checks done on admission patient with warm extremities Capillary refills less than 3 seconds Increased urine output Vitals more stable responded to fluids Addendum Documented By: Joe Garcia MD 09/18/24 1328 Addendum Signed By: <Electronically signed by Joe Garcia MD> 09/18/24 1328 HPI DATE OF EXAMINATION: 09/17/24 CHIEF COMPLAINT: SOB HISTORY OF PRESENT ILLNESS: Patient is a 63-year-old female with medical history as listed below, including recent diagnosis ofbreast cancer, underwent surgery, currently getting chemotherapy, her private oncologist as outpatient Dr. Glez. Patient had visit at the cancer center and upon checking her vital signs with patient being not eating and short of breath, her oxygen saturation around 70% on room air, heart ratein the 30s, blood pressure 60s over 45. Patient was sent to the ER for further evaluation and management. Patient reports that she has been feeling sick with cough and congestion over the past several weeks, however her cough and sputum production has increased over the past several days, clear in color, she does report chills but no fever at home she was placed on oxygen hereup to 6 L in the ER to maintain appropriate saturation. Reports symptoms of Pleurisy . She presented hypotensive with blood pressure 60s over 40s which improved with hydration. Patient reports that her last chemotherapywas 2024. She denies nausea or vomiting or diarrhea. She was given IV antibiotics in the ER, blood cultures were collected, CT PE protocol was done with no evidence of PE however it does show consolidation on the right middle and lower lobes. Her white count 4.8, however her hemoglobin also found to be low at 5.6, patient denies any history of blood transfusion, patient denies any signsor symptoms of bleeding, denies any melena or bleeding per rectum. Also noted that she has thrombocytopenia with platelet count at 24, no signs of active bleeding. Noted to have ROSAMARIA on admission withhypokalemia and hyponatremia. She was given IV fluids and IV antibiotics in the ER, ordered 2 unitsof blood in the ER, decision was made to admit her for further evaluation and management. Review of Systems Review of Systems Review of systems: 10 systems are reviewed and are negative except as mentioned elsewhere in the documentation [facility] Medical History Osteopenia Encounter for screening for osteoporosis Breast cancer, left Hypertension Surgical History History of knee surgery bilateral History of lumpectomy of left breast History of cholecystectomy History of appendectomy History of hysterectomy History of foot surgery multiple bilateral Family History Family/Other Breast cancer Social History Smoking Status: Former smoker Tobacco Type: cigarettes Substance Use Type: Marijuana Substance Abuse Comment: marijuana medical Meds Medications and Allergies Allergies Corticosteroids (Glucocorticoids) Allergy (Verified 09/17/24 12:38) Unknown Reaction metaxalone (From Skelaxin) Allergy (Verified 09/17/24 12:38) Unknown Reaction entex Allergy (Uncoded 02/08/24 15:18) Unknown Reaction Home Medications alprazolam 0.25 mg tablet 0.25 mg PO TID PRN anxiety 02/08/24 [History Confirmed 09/17/24] aspirin 81 mg tablet,delayed release 81 mg PO DAILY 02/08/24 [History Confirmed 09/17/24] cyclobenzaprine 10 mg tablet 10 mg PO HS 02/08/24 [History Confirmed 09/17/24] gabapentin 300 mg capsule 300 mg PO TID 02/08/24 [History Confirmed 09/17/24] losartan 50 mg-hydrochlorothiazide 12.5 mg tablet 1 tab PO DAILY 02/08/24 [History Confirmed 09/17/24] ondansetron 8 mg disintegrating tablet 8 mg PO Q8HR PRN nausea and vomiting #30 tabs 05/30/24 [Rx Confirmed 09/17/24] prochlorperazine maleate 10 mg tablet (Compazine) 10 mg PO Q6HR PRN nausea and vomiting #30 tabs 05/30/24 [Rx Confirmed 09/17/24] naloxone 4 mg/actuation nasal spray 4 mg intranasal Q2-3M PRN opioid overdose #2ea 08/22/24 [Rx Confirmed 09/17/24] oxycodone-acetaminophen 5 mg-325 mg tablet 1 tab PO Q8HR PRN pain 30 days #90 tabs 08/23/24 [Rx Confirmed 09/17/24] cetirizine 10 mg tablet 10 mg PO DAILY 09/17/24 [History Confirmed 09/17/24] fluticasone propionate 50 mcg/actuation nasal spray,suspension 1 spray intranasal BID 09/17/24 [History Confirmed 01/14/25] Exam Physical Exam Vital Signs: Temp Pulse Resp BP Pulse Ox O2 Del Method O2 Flow Rate 98.9 F 69 18 98/51 L 91 L Nasal Cannula 6 09/17/24 12:33 09/17/24 14:30 09/17/24 14:30 09/17/24 14:30 09/17/24 14:30 09/17/24 14:30 09/17/24 14:30 Narrative: Const General: cooperative, ill and tired appearing, cachectic appearing HEENT Dry oropharyngeal mucosa without any ulcers or exudates Eyes: Conjunctiva normal Pulmonary Auscultation: Diminished breath sounds, right-sided rhonchi, no wheezes Chest: catheter noted on R chest Cardiovascular Rate: normal rate Rhythm: regular rhythm Heart Sounds: S1 normal, S2 normal and no murmurs GI Inspection: non-distended Palpation: soft, not firm and nontender. No rigidity or rebound. Deferred Neuro General: alert, awake and oriented x3. No obvious new focal deficit Musculoskeletal: normal range of motion Extrem General: no cyanosis, no pedal edema Psych Appearance: appropriate affect. Grossly normal, pleasant Results - Hospitalist H&P Lab Results Labs: Laboratory Last Values Corrected WBC 4.8 X10E3/uL (3.8-11.6) 09/17/24 13:00 Uncorrected WBC Count 4.8 x10E3/uL (3.8-11.6) 09/17/24 13:00 RBC 1.71 x10E6/uL (3.60-5.00) L 09/17/24 13:00 Hgb 5.6 g/dL (11.8-15.4) L 09/17/24 13:00 Hct 16.0 % (34.0-46.4) L* 09/17/24 13:00 MCV 93.2 fl (80-100) 09/17/24 13:00 MCH 32.7 pg (24.7-34.3) 09/17/24 13:00 MCHC 35.1 g/dL (32.0-35.0) H 09/17/24 13:00 RDW 14.9 % (11.9-15.3) 09/17/24 13:00 Plt Count 24 x10E3/uL (150-450) L* 09/17/24 13:00 MPV 10.3 fl (6.3-10.7) 09/17/24 13:00 Neut % (Auto) 73.2 % (.) 09/17/24 13:00 Lymph % (Auto) 3.2 % (.) 09/17/24 13:00 [place] % (Auto) 23.5 % (.) 09/17/24 13:00 Eos % (Auto) 0.1 % (.) 09/17/24 13:00 Baso % (Auto) 0.0 % (.) 09/17/24 13:00 Nucleat RBC Rel Count 0.2 /100 WBC (0-0.5) 09/17/24 13:00 Neut # (Auto) 3.5 x10E3/uL (1.8-7.7) 09/17/24 13:00 Lymph # (Auto) 0.2 x10E3/uL (1.00-4.8) L 09/17/24 13:00 [place] # (Auto) 1.1 x10E3/uL (0.0-0.8) H 09/17/24 13:00 Eos # (Auto) 0.0 x10E3/uL (0.0-0.45) 09/17/24 13:00 Baso # (Auto) 0.0 x10E3/uL (0.0-0.2) 09/17/24 13:00 Lymphocytes % 2 % (18-42) L 09/17/24 13:00 Monocytes % 23 % (2-11) H 09/17/24 13:00 Eosinophils % 2 % (1-3) 09/17/24 13:00 Basophils % 0 % (0-2) 09/17/24 13:00 Segmented Neutrophils 73 % (50-70) H 09/17/24 13:00 Monocyte Dist Width 29.44 % (0.00-20.00) H 09/17/24 13:00 Platelet Estimate Decreased (Normal) 09/17/24 13:00 Plt Morphology Comment Normal (Normal) 09/17/24 13:00 RBC Morphology N/A 09/17/24 13:00 Polychromasia Slight 09/17/24 13:00 Hypochromasia Moderate 09/17/24 13:00 Poikilocytosis Slight 09/17/24 13:00 Anisocytosis Slight 09/17/24 13:00 Microcytosis Slight 09/17/24 13:00 Ovalocytes Slight 09/17/24 13:00 PT 15.2 Seconds (9.0-12.9) H 09/17/24 13:00 INR 1.3 09/17/24 13:00 PHA Creatinine Clear 35.84 09/17/24 13:00 Sodium 133 mmol/L (136-145) L 09/17/24 13:00 Potassium 3.0 mmol/L (3.5-5.1) L 09/17/24 13:00 Chloride 94 mmol/L (98-107) L 09/17/24 13:00 Carbon Dioxide 26.4 mmol/L (21.0-31.0) 09/17/24 13:00 Anion Gap 15.6 mEq/L (6.0-15.0) H 09/17/24 13:00 BUN 60 mg/dL (7-25) H 09/17/24 13:00 Creatinine 1.49 mg/dL (0.60-1.20) H 09/17/24 13:00 Est GFR (CKD-EPI) 39.473 mL/Min 09/17/24 13:00 Glucose 172 mg/dL (70-100) H 09/17/24 13:00 Lactic Acid 1.2 mmol/L (0.5-2.2) 09/17/24 13:00 Calcium 8.8 mg/dL (8.6-10.3) 09/17/24 13:00 Total Creatine Kinase 101 U/L (30-223) 09/17/24 13:00 Troponin I High Sens 44.2 pg/mL (0.0-15.0) H 09/17/24 13:00 B-Natriuretic Peptide 261.0 pg/mL (5-100) H 09/17/24 13:00 Urine Color Yellow (Yellow) 09/17/24 13:43 Urine Appearance Cloudy (Clear) A 09/17/24 13:43 Urine pH 5.5 (5.0-9.0) 09/17/24 13:43 Ur Specific [place] 1.015 (1.001-1.030) 09/17/24 13:43 Urine Protein 50 mg/dL (Negative) H 09/17/24 13:43 Urine Glucose (UA) 70 mg/dL (Normal) H 09/17/24 13:43 Urine Ketones Negative (Negative) 09/17/24 13:43 Urine Occult Blood 2+ (Negative) H 09/17/24 13:43 Urine Nitrite Negative (Negative) 09/17/24 13:43 Urine Bilirubin Negative (Negative) 09/17/24 13:43 Urine Urobilinogen 3 mg/dL (Normal) H 09/17/24 13:43 Ur Leukocyte Esterase 4+ (Negative) H 09/17/24 13:43 Urine RBC 20-49 /HPF (0-4) H 09/17/24 13:43 Urine WBC Innumerable /HPF (0-4) H 09/17/24 13:43 Urine WBC Clumps Many /LPF (None Seen) H 09/17/24 13:43 Ur Squamous Epith Cells 1-2 /HPF (0-2) 09/17/24 13:43 U Non-Squamous Epi Cells 1-2 /HPF (None Seen) H 09/17/24 13:43 Urine Bacteria 3+ /HPF (None Seen) H 09/17/24 13:43 Hyaline Casts 9-19 /LPF (0-8) H 09/17/24 13:43 Urine Mucus Rare /LPF 09/17/24 13:43 Blood Type O Positive 09/17/24 14:28 Crossmatch (AHG) See Detail 09/17/24 14:28 Assessment & Plan Assessment/Plan (1) Pancytopenia: (2) UTI (urinary tract infection): (3) Pneumonia: (4) Acute anemia: Plan Acute hypoxic respiratory failure secondary to right-sided pneumonia (RML and RLL) Known recent diagnosis of breast cancer on chemo (4 rounds, last dose 09/05/24) Hypotensive on admission concern for sepsis PE ruled out Immunocompromised state -Afebrile, has chills, no leukocytosis -CT chest no PE, has consolidation RML and RLL -Start Cefepime IV dosing per pharmacy. Doxycycline for atypical coverage. -Antitussive agents as needed as directed -Follow-up blood cultures and sputum culture -Oxygen supplements as needed -Monitor for fever/leukocytosis ROSAMARIA likely secondary to volume depletion due to poor oral intake Acute cystitis Hyponatremia/hypokalemia/metabolic alkalosis -Follow up urine culture -Gentle IV hydration as directed -Avoid ACEI, ARB for now -Optimized electrolytes to keep K>4, Mg>2, P>3 -Avoid nephrotoxic medications Acute anemia Acute thrombocytopenia -Likely chemo induced -Ordered 2 units of blood in ER. Serial H/H -PLT count 24 on admission. no signs of overt GI bleed or any active bleed. monitor for now. Elevated troponin likely demand ischemia due to ROSAMARIA, infectious process, severe volume depletion -Trend trop -Recet Echo seems normal EF and LV function. Home medications resumed as appropriate Diet: regular DVT ppx: SCDs GI ppx: PPI Code status: Full Status: inpatient Discussed with patient and family at bedside. All questions answered. In agreement with the above plan Joe Dinero MD Internal Medicine Hospitalist Attending Physician IP vs OBS Justification Based on differential dx, clinical care plan, and risk of adverse events, if untreated, in my clinical judgement this patient requires an acute care setting as: INPATIENT because of an expectation ofan over 2 midnight stay. Estimated length of stay (# of days): 3 Documented By: Joe Garcia MD 09/17/24 15 16 Signed By: <Electronically signed by Joe Garcia MD> 09/17/24 0393 [facility] Work Phone: 1(877) 609-701201-15-2025 Progress note Author Joe Garcia [facility] Date/TimeJanuary 2024 1:27pm [place] [address] Hospitalist Progress Note Signed Patient: Adelina Mir MR#: [id number] : 1960 Acct:[id number] Age/Sex: 63 / F Adm Date: 5 Loc: Room: [address] [place] [address] Type: ADM IN Attending Dr: Joe Garcia MD Copies to: ~ Date of Service: 09/18/2024 Subjective Subjective Narrative: Patient was seen and evaluated at bedside, remained afebrile here, no leukocytosis, blood cultures came back positive for bacteremia Streptococcus pneumonia, patient received 2 units of blood transfusion with improvement in H&Hto 7.7, platelets still low at 25. Potassium 3.1, given supplements,kidney function improving, liver enzymes slightly elevated could be induced by sepsis, patient is still has cough with clear sputum production, still requiring oxygen around 3 L nasal cannula which seems to be improvement from yesterday she still ill-appearing, continue to maintain current management, ID was consulted. Exam Physical Exam Vital Signs: Temp Pulse Resp BP Pulse Ox O2 Del Method O2 Flow Rate 98.4 F 98 20 121/59 L 95 Nasal Cannula 3 09/18/24 11:43 09/18/24 11:43 09/18/24 11:43 09/18/24 11:43 09/18/24 11:43 09/18/24 11:43 09/18/24 11:43 Narrative: Const General: cooperative, ill and tired appearing, cachectic appearing HEENT Dry oropharyngeal mucosa without any ulcers or exudates Eyes: Conjunctiva normal Pulmonary Auscultation: Diminished breath sounds, right-sided rhonchi, no wheezes Chest: catheter noted on R chest Cardiovascular Rate: normal rate Rhythm: regular rhythm Heart Sounds: S1 normal, S2 normal and no murmurs GI Inspection: non-distended Palpation: soft, not firm and nontender. No rigidity or rebound. Deferred Neuro General: alert, awake and oriented x3. No obvious new focal deficit Musculoskeletal: normal range of motion Extrem General: no cyanosis, no pedal edema Psych Appearance: appropriate affect. Grossly normal, pleasant Objective Lab Results 09/18/24 04:58 09/18/24 04:58 Microbiology Results Microbiology 09/17/24 13:43 Urine - Straight Cath Urine Culture - Preliminary Gram Negative Bacilli 09/17/24 12:58 Blood - Port Blood Culture - Preliminary Streptococcus pneumoniae 09/17/24 12:58 Blood - Port Bacterial ID (NA Multiplex Assay) - Final 09/17/24 13:10 Blood - Right Antecubital Blood Culture - Preliminary Gram Positive Diplococci 09/17/24 17:24 Nasopharyngeal Respiratory Panel (PCR) - Final Meds Allergies and Active Meds Allergies Corticosteroids (Glucocorticoids) Allergy (Verified 09/17/24 12:38) Unknown Reaction metaxalone (From Skelaxin) Allergy (Verified 09/17/24 12:38) Unknown Reaction entex Allergy (Uncoded 02/08/24 15:18) Unknown Reaction Active Meds: Active Medications Generic Name Dose Route Start Last Admin Trade Name Freq PRN Reason Stop Dose Admin Acetaminophen 650 mg 09/17/24 15:09 09/17/24 22:15 Acetaminophen 325 Mg Tablet PO 09/17/25 15:08 650 mg Q6HR PRN Administration Pain Scale 1 - 3 or fever Alprazolam 0.25 mg 09/17/24 16:52 Alprazolam 0.25 Mg Tablet PO 03/16/25 16:51 TID PRN anxiety Benzonatate 200 mg 09/17/24 16:49 09/17/24 22:15 Benzonatate 100 Mg Capsule PO 09/17/25 16:48 200 mg TID PRN Administration Cough Ceftriaxone Sodium 2 gm 09/18/24 13:00 Ceftriaxone 2 Gm/20 Ml Syringe IV-PUSH DAILY@1300 IVY Cyclobenzaprine HCl 10 mg 09/17/24 22:00 Cyclobenzaprine 10 Mg Tablet PO 09/17/25 21:59 HS PRN Muscle Spasticity Fluticasone Propionate 1 spray 09/17/24 21:00 09/18/24 08:45 Fluticasone Propionate Amalia 120 Amalia/16 Gm Bottle INTRANASAL 09/17/25 20:59 1 spray BID IVY Administration Gabapentin 300 mg 09/17/24 22:00 09/18/24 08:39 Gabapentin 300 Mg Capsule PO 09/17/25 21:59 300 mg TID IVY Administration Guaifenesin 1,200 mg 09/17/24 21:00 09/18/24 08:39 Guaifenesin 600 Mg Tab.Er.12h PO 09/17/25 20:59 1,200 mg BID IVY Administration Sodium Chloride 100 mls @ 20 mls/hr 09/17/24 14:46 0.9% Sodium Chloride 100 Ml IV 09/18/24 14:45 PROTOCOL PRN BLOOD TRANSFUSION Lactated Ringer's 1,000 mls @ 75 mls/hr 09/17/24 15:15 09/18/24 01:07 Lactated Ringers IV 09/17/25 15:14 75 mls/hr .[id number] IVY Administration Potassium Chloride 40 meq/ 520 mls @ 130 mls/hr 09/18/24 10:00 09/18/24 11:01 Sodium Chloride IV 09/18/24 13:59 130 mls/hr ONCE ONE Administration Morphine Sulfate 2 mg 09/17/24 15:09 09/18/24 08:39 Morphine Sulfate 2 Mg/Ml Vial IV-PUSH 2 mg Q4H PRN Administration Pain Scale 8 - 10 Oxycodone/Acetaminophen 1 tab 09/17/24 16:52 Oxycodone/Acetaminophen 5-325 Mg Tablet PO Q8HR PRN pain Pantoprazole Sodium 40 mg 09/18/24 09:00 09/18/24 08:39 Pantoprazole 40 Mg Vial IV-PUSH 09/18/25 08:59 40 mg DAILY IVY Administration Prochlorperazine Edisylate 5 mg 09/17/24 15:09 Prochlorperazine Edisylate 10 Mg/2 Ml Vial IV-PUSH 09/17/25 15:08 Q4H PRN Nausea And Vomiting Sodium Chloride 0 ml 09/17/24 12:37 09/18/24 08:39 Sodium Chloride 0.9 % 10 Ml Syringe IV-PUSH 09/17/25 12:36 40 ml PRN PRN Administration Flush Sodium Chloride 10 ml 09/17/24 16:45 Sodium Chloride 0.9 % 10 Ml Vial.Pf INJECTION 09/17/25 16:44 PRN PRN Dilution Sodium Chloride 10 ml 09/17/24 16:45 Sodium Chloride 0.9 % 10 Ml Syringe IV-PUSH 09/17/25 16:44 PRN PRN Flush A&P - Hospitalist Assessment/Plan (1) Pancytopenia: (2) UTI (urinary tract infection): (3) Pneumonia: (4) Acute anemia: Plan Acute hypoxic respiratory failure secondary to right-sided pneumonia (RML and RLL) Known recent diagnosis of breast cancer on chemo (4 rounds, last dose 09/05/24) Hypotensive on admission Streptococcus pneumonia bacteremia PE ruled out Immunocompromised state -Afebrile, Still has chills, no leukocytosis -CT chest no PE, has consolidation RML and RLL -Antitussive agents as needed as directed -Blood cultures came back positive for Streptococcus pneumonia -Follow-up blood cultures and sputum culture -Oxygen supplements as needed -Monitor for fever/leukocytosis -ID was consulted, antibiotics changed to Rocephin. Repeat blood cultures ordered ROSAMARIA likely secondary to volume depletion due to poor oral intake Acute cystitis Hyponatremia/hypokalemia/metabolic alkalosis -Follow up final urine culture . Growing gram-negative bacilli so far -Kidney function improving -Gentle IV hydration as directed - Given IV KCL supplements -Avoid nephrotoxic medications Acute anemia Acute thrombocytopenia -Likely chemo induced -Ordered 2 units of blood in ER. Serial H/H. Hemoglobin today 7.7 -PLT count 24 on admission. today 25. no signs of overt GI bleed or any active bleed. monitor for now. Elevated troponin likely demand ischemia due to ROSAMARIA, infectious process, severe volume depletion -Trend trop- flat curve. -Recent Echo seems normal EF and LV function. Home medications resumed as appropriate Diet: regular DVT ppx: SCDs GI ppx: PPI Code status: Full Status: inpatient Discussed with patient at bedside. All questions answered. In agreement with theabove plan Joe Dinero MD Internal Medicine Hospitalist Attending Physician Documented By: Joe Garcia MD 09/18/24 13 23 Signed By: <Electronically signed by Joe Garcia MD> 09/18/24 1327 [facility] Work Phone: [phone]) 484-776201-15-2025 [place] [address] Hospitalist H&P Signed with Addenda Patient: Adelina Mir MR#: [id number] : 1960 Acct:[id number] Age/Sex: 63 / F Adm Date: 5 Loc: Room: [address] [place] [address] Type: ADM IN Attending Dr: Joe Garcia MD Copies to: MD Michael Herrmann MD~ ADDENDUM1 Sepsis protocol followed on admission perfusion checks done on admission patient with warm extremities Capillary refills less than 3 seconds Increased urine output Vitals more stable responded to fluids Addendum Documented By: Joe Garcia MD 09/18/24 1328 Addendum Signed By: 09/18/24 1328 [facility] DATE OF EXAMINATION: 09/17/24 CHIEF COMPLAINT: SOB HISTORY OF PRESENT ILLNESS: Patient is a 63-year-old female with medical history as listed below, including recent diagnosis ofbreast cancer, underwent surgery, currently getting chemotherapy, her private oncologist as outpatient Dr. Glez. Patient had visit at the [facility] and upon checking her vital signs with patient being not eating and short of breath, her oxygen saturation around 70% on room air, heart ratein the 30s, blood pressure 60s over 45. Patient was sent to the ER for further evaluation and management. Patient reports that she has been feeling sick with cough and congestion over the past several weeks, however her cough and sputum production has increased over the past several days, clear in color, she does report chills but no fever at home she was placed on oxygen hereup to 6 L in the ER to maintain appropriate saturation. Reports symptoms of Pleurisy . She presented hypotensive with blood pressure 60s over 40s which improved with hydration. Patient reports that her last chemotherapywas 2024. She denies nausea or vomiting or diarrhea. She was given IV antibiotics in the ER, blood cultures were collected, CT PE protocol was done with no evidence of PE however it does show consolidation on the right middle and lower lobes. Her white count 4.8, however her hemoglobin also found to be low at 5.6, patient denies any history of blood transfusion, patient denies any signsor symptoms of bleeding, denies any melena or bleeding per rectum. Also noted that she has thrombocytopenia with platelet count at 24, no signs of active bleeding. Noted to have ROSAMARIA on admission withhypokalemia and hyponatremia. She was given IV fluids and IV antibiotics in the ER, ordered 2 unitsof blood in the ER, decision was made to admit her for further evaluation and management. Review of Systems Review of Systems Review of systems: 10 systems are reviewed and are negative except as mentioned elsewhere in the documentation [facility] [facility] Medical History Osteopenia Encounter for screening for osteoporosis Breast cancer, left Hypertension Surgical History History of knee surgery bilateral History of lumpectomy of left breast History of cholecystectomy History of appendectomy History of hysterectomy History of foot surgery multiple bilateral Family History Family/Other Breast cancer Social History Smoking Status: Former smoker Tobacco Type: cigarettes Substance Use Type: Marijuana Substance Abuse Comment: marijuana medical Meds Medications and Allergies Allergies Corticosteroids (Glucocorticoids) Allergy (Verified 09/17/24 12:38) Unknown Reaction metaxalone (From Skelaxin) Allergy (Verified 09/17/24 12:38) Unknown Reaction entex Allergy (Uncoded 02/08/24 15:18) Unknown Reaction Home Medications alprazolam 0.25 mg tablet 0.25 mg PO TID PRN anxiety 02/08/24 [History Confirmed 09/17/24] aspirin 81 mg tablet,delayed release 81 mg PO DAILY 02/08/24 [History Confirmed 09/17/24] cyclobenzaprine 10 mg tablet 10 mg PO HS 02/08/24 [History Confirmed 09/17/24] gabapentin 300 mg capsule 300 mg PO TID 02/08/24 [History Confirmed 09/17/24] losartan 50 mg-hydrochlorothiazide 12.5 mg tablet 1 tab PO DAILY 02/08/24 [History Confirmed 09/17/24] ondansetron 8 mg disintegrating tablet 8 mg PO Q8HR PRN nausea and vomiting #30 tabs 05/30/24 [Rx Confirmed 09/17/24] prochlorperazine maleate 10 mg tablet (Compazine) 10 mg PO Q6HR PRN nausea and vomiting #30 tabs 05/30/24 [Rx Confirmed 09/17/24] naloxone 4 mg/actuation nasal spray 4 mg intranasal Q2-3M PRN opioid overdose #2ea 08/22/24 [Rx Confirmed 09/17/24] oxycodone-acetaminophen 5 mg-325 mg tablet 1 tab PO Q8HR PRN pain 30 days #90 tabs 08/23/24 [Rx Confirmed 09/17/24] cetirizine 10 mg tablet 10 mg PO DAILY 09/17/24 [History Confirmed 09/17/24] fluticasone propionate 50 mcg/actuation nasal spray,suspension 1 spray intranasal BID 09/17/24 [History Confirmed 09/17/24] Exam Physical Exam Vital Signs: Temp Pulse Resp BP Pulse Ox O2 Del Method O2 Flow Rate 98.9 F 69 18 98/51 L 91 L Nasal Cannula 6 09/17/24 12:33 09/17/24 14:30 09/17/24 14:30 09/17/24 14:30 09/17/24 14:30 09/17/24 14:30 09/17/24 14:30 Narrative: Const General: cooperative, ill and tired appearing, cachectic appearing HEENT Dry oropharyngeal mucosa without any ulcers or exudates Eyes: Conjunctiva normal Pulmonary Auscultation: Diminished breath sounds, right-sided rhonchi, no wheezes Chest: catheter noted on R chest Cardiovascular Rate: normal rate Rhythm: regular rhythm Heart Sounds: S1 normal, S2 normal and no murmurs GI Inspection: non-distended Palpation: soft, not firm and nontender. No rigidity or rebound. Deferred Neuro General: alert, awake and oriented x3. No obvious new focal deficit Musculoskeletal: normal range of motion Extrem General: no cyanosis, no pedal edema Psych Appearance: appropriate affect. Grossly normal, pleasant Results - Hospitalist H&P Lab Results Labs: Laboratory Last Values Corrected WBC 4.8 X10E3/uL (3.8-11.6) 09/17/24 13:00 Uncorrected WBC Count 4.8 x10E3/uL (3.8-11.6) 09/17/24 13:00 RBC 1.71 x10E6/uL (3.60-5.00) L 09/17/24 13:00 Hgb 5.6 g/dL (11.8-15.4) L 09/17/24 13:00 Hct 16.0 % (34.0-46.4) L* 09/17/24 13:00 MCV 93.2 fl (80-100) 09/17/24 13:00 MCH 32.7 pg (24.7-34.3) 09/17/24 13:00 MCHC 35.1 g/dL (32.0-35.0) H 09/17/24 13:00 RDW 14.9 % (11.9-15.3) 09/17/24 13:00 Plt Count 24 x10E3/uL (150-450) L* 09/17/24 13:00 MPV 10.3 fl (6.3-10.7) 09/17/24 13:00 Neut % (Auto) 73.2 % (.) 09/17/24 13:00 Lymph % (Auto) 3.2 % (.) 09/17/24 13:00 [place] % (Auto) 23.5 % (.) 09/17/24 13:00 Eos % (Auto) 0.1 % (.) 09/17/24 13:00 Baso % (Auto) 0.0 % (.) 09/17/24 13:00 Nucleat RBC Rel Count 0.2 /100 WBC (0-0.5) 09/17/24 13:00 Neut # (Auto) 3.5 x10E3/uL (1.8-7.7) 09/17/24 13:00 Lymph # (Auto) 0.2 x10E3/uL (1.00-4.8) L 09/17/24 13:00 [place] # (Auto) 1.1 x10E3/uL (0.0-0.8) H 09/17/24 13:00 Eos # (Auto) 0.0 x10E3/uL (0.0-0.45) 09/17/24 13:00 Baso # (Auto) 0.0 x10E3/uL (0.0-0.2) 09/17/24 13:00 Lymphocytes % 2 % (18-42) L 09/17/24 13:00 Monocytes % 23 % (2-11) H 09/17/24 13:00 Eosinophils % 2 % (1-3) 09/17/24 13:00 Basophils % 0 % (0-2) 09/17/24 13:00 Segmented Neutrophils 73 % (50-70) H 09/17/24 13:00 Monocyte Dist Width 29.44 % (0.00-20.00) H 09/17/24 13:00 Platelet Estimate Decreased (Normal) 09/17/24 13:00 Plt Morphology Comment Normal (Normal) 09/17/24 13:00 RBC Morphology N/A 09/17/24 13:00 Polychromasia Slight 09/17/24 13:00 Hypochromasia Moderate 09/17/24 13:00 Poikilocytosis Slight 09/17/24 13:00 Anisocytosis Slight 09/17/24 13:00 Microcytosis Slight 09/17/24 13:00 Ovalocytes Slight 09/17/24 13:00 PT 15.2 Seconds (9.0-12.9) H 09/17/24 13:00 INR 1.3 09/17/24 13:00 PHA Creatinine Clear 35.84 09/17/24 13:00 Sodium 133 mmol/L (136-145) L 09/17/24 13:00 Potassium 3.0 mmol/L (3.5-5.1) L 09/17/24 13:00 Chloride 94 mmol/L (98-107) L 09/17/24 13:00 Carbon Dioxide 26.4 mmol/L (21.0-31.0) 09/17/24 13:00 Anion Gap 15.6 mEq/L (6.0-15.0) H 09/17/24 13:00 BUN 60 mg/dL (7-25) H 09/17/24 13:00 Creatinine 1.49 mg/dL (0.60-1.20) H 09/17/24 13:00 Est GFR (CKD-EPI) 39.473 mL/Min 09/17/24 13:00 Glucose 172 mg/dL (70-100) H 09/17/24 13:00 Lactic Acid 1.2 mmol/L (0.5-2.2) 09/17/24 13:00 Calcium 8.8 mg/dL (8.6-10.3) 09/17/24 13:00 Total Creatine Kinase 101 U/L (30-223) 09/17/24 13:00 Troponin I High Sens 44.2 pg/mL (0.0-15.0) H 09/17/24 13:00 B-Natriuretic Peptide 261.0 pg/mL (5-100) H 09/17/24 13:00 Urine Color Yellow (Yellow) 09/17/24 13:43 Urine Appearance Cloudy (Clear) A 09/17/24 13:43 Urine pH 5.5 (5.0-9.0) 09/17/24 13:43 Ur Specific [place] 1.015 (1.001-1.030) 09/17/24 13:43 Urine Protein 50 mg/dL (Negative) H 09/17/24 13:43 Urine Glucose (UA) 70 mg/dL (Normal) H 09/17/24 13:43 Urine Ketones Negative (Negative) 09/17/24 13:43 Urine Occult Blood 2+ (Negative) H 09/17/24 13:43 Urine Nitrite Negative (Negative) 09/17/24 13:43 Urine Bilirubin Negative (Negative) 09/17/24 13:43 Urine Urobilinogen 3 mg/dL (Normal) H 09/17/24 13:43 Ur Leukocyte Esterase 4+ (Negative) H 09/17/24 13:43 Urine RBC 20-49 /HPF (0-4) H 09/17/24 13:43 Urine WBC Innumerable /HPF (0-4) H 09/17/24 13:43 Urine WBC Clumps Many /LPF (None Seen) H 09/17/24 13:43 Ur Squamous Epith Cells 1-2 /HPF (0-2) 09/17/24 13:43 U Non-Squamous Epi Cells 1-2 /HPF (None Seen) H 09/17/24 13:43 Urine Bacteria 3+ /HPF (None Seen) H 09/17/24 13:43 Hyaline Casts 9-19 /LPF (0-8) H 09/17/24 13:43 Urine Mucus Rare /LPF 09/17/24 13:43 Blood Type O Positive 09/17/24 14:28 Crossmatch (AHG) See Detail 09/17/24 14:28 Assessment & Plan Assessment/Plan (1) Pancytopenia: (2) UTI (urinary tract infection): (3) Pneumonia: (4) Acute anemia: Plan Acute hypoxic respiratory failure secondary to right-sided pneumonia (RML and RLL) Known recent diagnosis of breast cancer on chemo (4 rounds, last dose 09/05/24) Hypotensive on admission concern for sepsis PE ruled out Immunocompromised state -Afebrile, has chills, no leukocytosis -CT chest no PE, has consolidation RML and RLL -Start Cefepime IV dosing per pharmacy. Doxycycline for atypical coverage. -Antitussive agents as needed as directed -Follow-up blood cultures and sputum culture -Oxygen supplements as needed -Monitor for fever/leukocytosis ROSAMARIA likely secondary to volume depletion due to poor oral intake Acute cystitis Hyponatremia/hypokalemia/metabolic alkalosis -Follow up urine culture -Gentle IV hydration as directed -Avoid ACEI, ARB for now -Optimized electrolytes to keep K>4, Mg>2, P>3 -Avoid nephrotoxic medications Acute anemia Acute thrombocytopenia -Likely chemo induced -Ordered 2 units of blood in ER. Serial H/H -PLT count 24 on admission. no signs of overt GI bleed or any active bleed. monitor for now. Elevated troponin likely demand ischemia due to ROSAMARIA, infectious process, severe volume depletion -Trend trop -Recet Echo seems normal EF and LV function. Home medications resumed as appropriate Diet: regular DVT ppx: SCDs GI ppx: PPI Code status: Full Status: inpatient Discussed with patient and family at bedside. All questions answered. In agreement with the above plan Joe Dinero MD Internal Medicine Hospitalist Attending Physician IP vs OBS Justification Based on differential dx, clinical care plan, and risk of adverse events, if untreated, in my clinical judgement this patient requires an acute care setting as: INPATIENT because of an expectation ofan over 2 midnight stay. Estimated length of stay (# of days): 3 Documented By: Joe Garcia MD 09/17/24 16 Signed By: 09/17/24 1658 [facility] [place]01-15-20[place] [address] Hospitalist Progress Note Signed Patient: Adelina Mir MR#: [id number] : 1960 Acct:[id number] Age/Sex: 63 / F Adm Date: 5 Loc: Room: [address] [place] [address] Type: ADM IN Attending Dr: Joe Garcia MD Copies to: ~ Date of Service: 09/18/2024 Subjective Subjective Narrative: Patient was seen and evaluated at bedside, remained afebrile here, no leukocytosis, blood cultures came back positive for bacteremia Streptococcus pneumonia, patient received 2 units of blood transfusion with improvement in H&Hto 7.7, platelets still low at 25. Potassium 3.1, given supplements,kidney function improving, liver enzymes slightly elevated could be induced by sepsis, patient is still has cough with clear sputum production, still requiring oxygen around 3 L nasal cannula which seems to be improvement from yesterday she still ill-appearing, continue to maintain current management, ID was consulted. Exam Physical Exam Vital Signs: Temp Pulse Resp BP Pulse Ox O2 Del Method O2 Flow Rate 98.4 F 98 20 121/59 L 95 Nasal Cannula 3 09/18/24 11:43 09/18/24 11:43 09/18/24 11:43 09/18/24 11:43 09/18/24 11:43 09/18/24 11:43 09/18/24 11:43 Narrative: Const General: cooperative, ill and tired appearing, cachectic appearing HEENT Dry oropharyngeal mucosa without any ulcers or exudates Eyes: Conjunctiva normal Pulmonary Auscultation: Diminished breath sounds, right-sided rhonchi, no wheezes Chest: catheter noted on R chest Cardiovascular Rate: normal rate Rhythm: regular rhythm Heart Sounds: S1 normal, S2 normal and no murmurs GI Inspection: non-distended Palpation: soft, not firm and nontender. No rigidity or rebound. Deferred Neuro General: alert, awake and oriented x3. No obvious new focal deficit Musculoskeletal: normal range of motion Extrem General: no cyanosis, no pedal edema Psych Appearance: appropriate affect. Grossly normal, pleasant Objective Lab Results 09/18/24 04:58 09/18/24 04:58 Microbiology Results Microbiology 09/17/24 13:43 Urine - Straight Cath Urine Culture - Preliminary Gram Negative Bacilli 09/17/24 12:58 Blood - Port Blood Culture - Preliminary Streptococcus pneumoniae 09/17/24 12:58 Blood - Port Bacterial ID (NA Multiplex Assay) - Final 09/17/24 13:10 Blood - Right Antecubital Blood Culture - Preliminary Gram Positive Diplococci 09/17/24 17:24 Nasopharyngeal Respiratory Panel (PCR) - Final Meds Allergies and Active Meds Allergies Corticosteroids (Glucocorticoids) Allergy (Verified 09/17/24 12:38) Unknown Reaction metaxalone (From Skelaxin) Allergy (Verified 09/17/24 12:38) Unknown Reaction entex Allergy (Uncoded 02/08/24 15:18) Unknown Reaction Active Meds: Active Medications Generic Name Dose Route Start Last Admin Trade Name Freq PRN Reason Stop Dose Admin Acetaminophen 650 mg 09/17/24 15:09 09/17/24 22:15 Acetaminophen 325 Mg Tablet PO 09/17/25 15:08 650 mg Q6HR PRN Administration Pain Scale 1 - 3 or fever Alprazolam 0.25 mg 09/17/24 16:52 Alprazolam 0.25 Mg Tablet PO 03/16/25 16:51 TID PRN anxiety Benzonatate 200 mg 09/17/24 16:49 09/17/24 22:15 Benzonatate 100 Mg Capsule PO 09/17/25 16:48 200 mg TID PRN Administration Cough Ceftriaxone Sodium 2 gm 09/18/24 13:00 Ceftriaxone 2 Gm/20 Ml Syringe IV-PUSH DAILY@1300 IVY Cyclobenzaprine HCl 10 mg 09/17/24 22:00 Cyclobenzaprine 10 Mg Tablet PO 09/17/25 21:59 HS PRN Muscle Spasticity Fluticasone Propionate 1 spray 09/17/24 21:00 09/18/24 08:45 Fluticasone Propionate Amalia 120 Amalia/16 Gm Bottle INTRANASAL 09/17/25 20:59 1 spray BID IVY Administration Gabapentin 300 mg 09/17/24 22:00 09/18/24 08:39 Gabapentin 300 Mg Capsule PO 09/17/25 21:59 300 mg TID IVY Administration Guaifenesin 1,200 mg 09/17/24 21:00 09/18/24 08:39 Guaifenesin 600 Mg Tab.Er.12h PO 09/17/25 20:59 1,200 mg BID IVY Administration Sodium Chloride 100 mls @ 20 mls/hr 09/17/24 14:46 0.9% Sodium Chloride 100 Ml IV 09/18/24 14:45 PROTOCOL PRN BLOOD TRANSFUSION Lactated Ringer's 1,000 mls @ 75 mls/hr 09/17/24 15:15 09/18/24 01:07 Lactated Ringers IV 09/17/25 15:14 75 mls/hr .[id number] IVY Administration Potassium Chloride 40 meq/ 520 mls @ 130 mls/hr 09/18/24 10:00 09/18/24 11:01 Sodium Chloride IV 09/18/24 13:59 130 mls/hr ONCE ONE Administration Morphine Sulfate 2 mg 09/17/24 15:09 09/18/24 08:39 Morphine Sulfate 2 Mg/Ml Vial IV-PUSH 2 mg Q4H PRN Administration Pain Scale 8 - 10 Oxycodone/Acetaminophen 1 tab 09/17/24 16:52 Oxycodone/Acetaminophen 5-325 Mg Tablet PO Q8HR PRN pain Pantoprazole Sodium 40 mg 09/18/24 09:00 09/18/24 08:39 Pantoprazole 40 Mg Vial IV-PUSH 09/18/25 08:59 40 mg DAILY IVY Administration Prochlorperazine Edisylate 5 mg 09/17/24 15:09 Prochlorperazine Edisylate 10 Mg/2 Ml Vial IV-PUSH 09/17/25 15:08 Q4H PRN Nausea And Vomiting Sodium Chloride 0 ml 09/17/24 12:37 09/18/24 08:39 Sodium Chloride 0.9 % 10 Ml Syringe IV-PUSH 09/17/25 12:36 40 ml PRN PRN Administration Flush Sodium Chloride 10 ml 09/17/24 16:45 Sodium Chloride 0.9 % 10 Ml Vial.Pf INJECTION 09/17/25 16:44 PRN PRN Dilution Sodium Chloride 10 ml 09/17/24 16:45 Sodium Chloride 0.9 % 10 Ml Syringe IV-PUSH 09/17/25 16:44 PRN PRN Flush A&P - Hospitalist Assessment/Plan (1) Pancytopenia: (2) UTI (urinary tract infection): (3) Pneumonia: (4) Acute anemia: Plan Acute hypoxic respiratory failure secondary to right-sided pneumonia (RML and RLL) Known recent diagnosis of breast cancer on chemo (4 rounds, last dose 09/05/24) Hypotensive on admission Streptococcus pneumonia bacteremia PE ruled out Immunocompromised state -Afebrile, Still has chills, no leukocytosis -CT chest no PE, has consolidation RML and RLL -Antitussive agents as needed as directed -Blood cultures came back positive for Streptococcus pneumonia -Follow-up blood cultures and sputum culture -Oxygen supplements as needed -Monitor for fever/leukocytosis -ID was consulted, antibiotics changed to Rocephin. Repeat blood cultures ordered ROSAMARIA likely secondary to volume depletion due to poor oral intake Acute cystitis Hyponatremia/hypokalemia/metabolic alkalosis -Follow up final urine culture . Growing gram-negative bacilli so far -Kidney function improving -Gentle IV hydration as directed - Given IV KCL supplements -Avoid nephrotoxic medications Acute anemia Acute thrombocytopenia -Likely chemo induced -Ordered 2 units of blood in ER. Serial H/H. Hemoglobin today 7.7 -PLT count 24 on admission. today 25. no signs of overt GI bleed or any active bleed. monitor for now. Elevated troponin likely demand ischemia due to ROSAMARIA, infectious process, severe volume depletion -Trend trop- flat curve. -Recent Echo seems normal EF and LV function. Home medications resumed as appropriate Diet: regular DVT ppx: SCDs GI ppx: PPI Code status: Full Status: inpatient Discussed with patient at bedside. All questions answered. In agreement with theabove plan Joe Dinero MD Internal Medicine Hospitalist Attending Physician Documented By: Joe Garcia MD 09/18/24 13 23 Signed By: 09/18/24 1327 [facility] [place]01-15-2025 Consult note Author Roshan Reynoso [facility] Date/TimeJanuary 2024 9:53am [place] [id number] Infect. Disease Consult Note Signed Patient: Adelina Mir MR#: [id number] : 1960 Acct:[id number] Age/Sex: 63 / F Adm Date: 5 Loc: Room: [address] [place] [address] Type: ADM IN Attending Dr: Joe Garcia MD Copies to: MD Joe Rios MD Samuel E Ross MD~ HPI Data of Consult Consult date: 09/18/24 Requesting Physician: Joe Garcia MD Primary Care Provider: Michael Holley MD Consult Narrative History of present illness: Ms. Mir is a 63 year old female who undergoes chemotherapy. She was having a follow-up with her oncologist and patient had complained of not feelingwell with decreased appetite and shortness of breath. Pulse ox was low. She was sent to the ER and therefore admitted. She has been sick over the last couple weeks. Cough and congestion. CTA showed no PE but consolidation seen onthe right side.Blood cultures have since come back positive for Streptococcus pneumoniae for which is the reason Elvis consulted. Patient was found to be extremely anemic with a hemoglobin of 5.6. White count was 4.8. CC: Joe Garcia MD Review of Systems Review of Systems All other systems reviewed & are negative unless noted below or in HPI [facility] Medical History Osteopenia Encounter for screening for osteoporosis Breast cancer, left Hypertension Surgical History History of knee surgery bilateral History of lumpectomy of left breast History of cholecystectomy History of appendectomy History of hysterectomy History of foot surgery multiple bilateral Family History Family/Other Breast cancer Social History Smoking Status: Former smoker Tobacco Type: cigarettes Substance Use Type: Prescribed and Marijuana Substance Abuse Comment: marijuana medical Allergies and Medications Allergies and Active Meds Allergies Corticosteroids (Glucocorticoids) Allergy (Verified 09/17/24 12:38) Unknown Reaction metaxalone (From Skelaxin) Allergy (Verified 09/17/24 12:38) Unknown Reaction entex Allergy (Uncoded 02/08/24 15:18) Unknown Reaction Active Medications Acetaminophen (Acetaminophen 325 Mg Tablet) 650 mg PO Q6HR PRN PRN Reason: Pain Scale 1 - 3 or fever Stop: 09/17/25 15:08 Last Admin: 09/17/24 22:15 Dose: 650 mg Alprazolam (Alprazolam 0.25 Mg Tablet) 0.25 mg PO TID PRN PRN Reason: anxiety Stop: 03/16/25 16:51 Benzonatate (Benzonatate 100 Mg Capsule) 200 mg PO TID PRN PRN Reason: Cough Stop: 09/17/25 16:48 Last Admin: 09/17/24 22:15 Dose: 200 mg Cyclobenzaprine HCl (Cyclobenzaprine 10 Mg Tablet) 10 mg PO HS PRN PRN Reason: Muscle Spasticity Stop: 09/17/25 21:59 Fluticasone Propionate (Fluticasone Propionate Amalia 120 Amalia/16 Gm Bottle) 1 spray [facility] Stop: 09/17/25 20:59 Last Admin: 09/18/24 08:45 Dose: 1 spray Gabapentin (Gabapentin 300 Mg Capsule) 300 mg PO TID [facility] Stop: 09/17/25 21:59 Last Admin: 09/18/24 08:39 Dose: 300 mg Guaifenesin (Guaifenesin 600 Mg Tab.Er.12h) 1,200 mg PO BID [facility] Stop: 09/17/25 20:59 Last Admin: 09/18/24 08:39 Dose: 1,200 mg Sodium Chloride (0.9% Sodium Chloride 100 Ml) 100 mls @ 20 mls/hr IV PROTOCOL PRN PRN Reason: BLOOD TRANSFUSION Stop: 09/18/24 14:45 Lactated Ringer's (Lactated Ringers) 1,000 mls @ 75 mls/hr IV .[id number] [facility] Stop: 09/17/25 15:14 Last Admin: 09/18/24 01:07 Dose: 75 mls/hr Cefepime HCl (Maxipime) 1 gm in 50 mls @ 12.5 mls/hr IV Q12H [facility] Last Admin: 09/18/24 01:07 Dose: 12.5 mls/hr Doxycycline Hyclate (Doxy 100) 100 mg in 100 mls @ 100 mls/hr IV Q12H [facility] Last Admin: 09/18/24 08:45 Dose: 100 mls/hr Potassium Chloride 40 meq/ (Sodium Chloride) 520 mls @ 130 mls/hr IV ONCE ONE Stop: 09/18/24 13:59 Morphine Sulfate (Morphine Sulfate 2 Mg/Ml Vial) 2 mg IV-PUSH Q4H PRN PRN Reason: Pain Scale 8 - 10 Last Admin: 09/18/24 08:39 Dose: 2 mg Oxycodone/Acetaminophen (Oxycodone/Acetaminophen 5-325 Mg Tablet) 1 tab PO [id number] PRN Reason: pain Pantoprazole Sodium (Pantoprazole 40 Mg Vial) 40 mg IV-PUSH DAILY [facility] Stop: 09/18/25 08:59 Last Admin: 09/18/24 08:39 Dose: 40 mg Potassium Chloride (Potassium Chloride Er 20 Meq Tab.Er.Prt) 20 meq PO ONCE ONE Stop: 09/18/24 09:46 Prochlorperazine Edisylate (Prochlorperazine Edisylate 10 Mg/2 Ml Vial) 5 mg IV- PUSH Q4H PRN PRN Reason: Nausea And Vomiting Stop: 09/17/25 15:08 Sodium Chloride (Sodium Chloride 0.9 % 10 Ml Syringe) 0 ml IV-PUSH PRN PRN PRN Reason: Flush Stop: 09/17/25 12:36 Last Admin: 09/18/24 08:39 Dose: 40 ml Sodium Chloride (Sodium Chloride 0.9 % 10 Ml Vial.Pf) 10 ml INJECTION PRN PRN PRN Reason: Dilution Stop: 09/17/25 16:44 Sodium Chloride (Sodium Chloride 0.9 % 10 Ml Syringe) 10 ml IV-PUSH PRN PRN PRN Reason: Flush Stop: 09/17/25 16:44 Exam Physical Exam Vital Signs: Vital Signs Temp Pulse Pulse Resp BP BP Pulse Ox 09/18/24 08:48 98.6 F 108 H 20 136/78 97 09/18/24 08:00 09/18/24 06:00 98.1 F 102 H 24 133/70 97 09/18/24 04:54 127/66 09/18/24 04:00 09/18/24 02:15 97.8 F 79 18 93/54 L 97 09/18/24 02:15 97.8 F 79 16 93/54 L 97 09/18/24 01:15 97.9 F 83 18 96/51 L 99 09/18/24 01:00 98.2 F 72 18 87/44 L 98 09/18/24 00:00 09/18/24 00:00 97.9 F 83 18 96/51 L 99 09/18/24 00:00 09/18/24 00:00 98.4 F 90 18 102/55 L 97 09/17/24 23:05 98.1 F 96 18 107/51 L 98 09/17/24 22:53 09/17/24 22:30 98.7 F 95 18 112/59 L 99 09/17/24 22:15 89 18 95/50 L 98 09/17/24 21:55 98.1 F 86 16 87/53 L 100 09/17/24 21:02 09/17/24 20:40 98.2 F 87 18 85/55 L 100 09/17/24 20:00 09/17/24 20:00 98.2 F 87 18 85/55 L 100 09/17/24 19:30 98 F 97 18 107/56 L 97 09/17/24 19:00 83 18 91/50 L 100 09/17/24 18:38 98.1 F 94 18 102/56 L 100 09/17/24 18:35 101 H 20 101/60 90 L 09/17/24 17:50 98.1 F 91 20 98/54 L 94 L 09/17/24 17:20 97.9 F 96 18 115/66 94 L 09/17/24 17:05 98.1 F 93 20 102/56 L 94 L 09/17/24 16:50 88 20 95/55 L 94 L 09/17/24 16:50 98 F 88 92/55 L 94 L 09/17/24 15:30 85 20 108/64 92 L 09/17/24 14:30 69 18 98/51 L 91 L 09/17/24 13:49 88 22 98/55 L 90 L 09/17/24 13:49 86 L 09/17/24 13:29 22 92 L 09/17/24 13:29 89 09/17/24 12:38 20 91 L 09/17/24 12:33 98.9 F 111 H 20 91/52 L 86 L O2 Del Method O2 Flow Rate 09/18/24 08:48 Nasal Cannula 5 09/18/24 08:00 Nasal Cannula 5 09/18/24 06:00 Nasal Cannula 6 09/18/24 04:54 09/18/24 04:00 Nasal Cannula 6 09/18/24 02:15 Nasal Cannula 6 09/18/24 02:15 09/18/24 01:15 09/18/24 01:00 09/18/24 00:00 Nasal Cannula 6 09/18/24 00:00 Nasal Cannula 6 09/18/24 00:00 Nasal Cannula 6 09/18/24 00:00 09/17/24 23:05 09/17/24 22:53 Nasal Cannula 6 09/17/24 22:30 09/17/24 22:15 09/17/24 21:55 09/17/24 21:02 Nasal Cannula 6 09/17/24 20:40 09/17/24 20:00 Nasal Cannula 6 09/17/24 20:00 Nasal Cannula 6 09/17/24 19:30 09/17/24 19:00 09/17/24 18:38 Nasal Cannula 6 09/17/24 18:35 09/17/24 17:50 09/17/24 17:20 09/17/24 17:05 09/17/24 16:50 Nasal Cannula 4 09/17/24 16:50 09/17/24 15:30 Nasal Cannula 6 09/17/24 14:30 Nasal Cannula 6 09/17/24 13:49 Nasal Cannula 6 09/17/24 13:49 Nasal Cannula 5 09/17/24 13:29 Nasal Cannula 3 09/17/24 13:29 09/17/24 12:38 Nasal Cannula 4 09/17/24 12:33 Nasal Cannula 3 Intake and Output 09/17/24 09/18/24 09/18/24 23:59 07:59 15:59 Intake Total 100 / 1150 600 / 600 Output Total 350 / 350 Balance 100 / 1150 250 / 250 Intake: IV 100 / 1150 Doxycycline Hyc 100 mg - *Ns* 100 / 100 100 mg In 100 ml @ 100 mls/hr IV Q12H [facility] Rx#:[id number] Oral 600 / 600 Output: Urine Amount (Catheter) 350 / 350 [place] 350 / 350 Other: Total Intake (Blood Product) Cumulative Amt Leukocyte Reduced Rbc Unit 0 325 [id number] Leukocyte Reduced Rbc Unit 325 [id number] # Voids 1 # Unmeasured Voids 2 # Bowel Movements 0 Weight 60 kg 60.1 kg Date of Last Bowel Movement 09/16/24 09/16/24 Patient Weight 09/18/24 23:59 Weight 60.1 kg Const General: ill appearing Orientation: oriented x3 HEENT Head: normal to inspection Ears: hearing grossly normal bilaterally Nose: external nose normal Face and sinus: normal facial exam Mouth: oral mucosae normal Eyes General: appearance normal, both eyes and all related structures Neck Neck: normal visual inspection Chest Chest palpation & inspection: abnormal inspection of the chest Other: R chest wall port Resp Effort & Inspection: cough, decreased respiratory effort and tachypneic Auscultation: rhonchi right lower Cardio Rate: tachycardic GI Inspection: normal to inspection Palpation: soft and nontender Skin General: no rashes or lesions noted Neuro General: patient oriented x3 Extrem General: normal to inspection Results - Infectious Disease Labs 09/18/24 04:58 09/18/24 04:58 Labs: 09/17/24 13:00: Corrected WBC 4.8, Uncorrected WBC Count 4.8, BUN 60 H, Creatinine 1.49 H 09/18/24 04:58: Corrected WBC 6.5, Uncorrected WBC Count 6.5, BUN 43 H, Creatinine 1.02 09/17/24 13:43 Urine Color Yellow Urine Appearance Cloudy A Urine pH 5.5 Ur Specific [place] 1.015 Urine Protein 50 H Urine Glucose (UA) 70 H Urine Ketones Negative Urine Occult Blood 2+ H Urine Nitrite Negative Urine Bilirubin Negative Urine Urobilinogen 3 H Ur Leukocyte Esterase 4+ H Urine RBC 20-49 H Urine WBC Innumerable H Urine WBC Clumps Many H Ur Squamous Epith Cells 1-2 Urine Bacteria 3+ H Hyaline Casts 9-19 H Urine Mucus Rare Microbiology Results Microbiology Narrative: 09/17/24 12:58 Blood Culture - Preliminary Blood - Port Streptococcus pneumoniae Bacterial ID (NA Multiplex Assay) - Final 09/17/24 13:10 Blood Culture - Preliminary Blood - Right Antecubital Gram Positive Diplococci 09/17/24 17:24 Respiratory Panel (PCR) - Final Nasopharyngeal 09/17/24 13:43 Urine Culture - Pending Urine - Straight Cath Imaging and Cardiology Status: report viewed by me Results Comments: CTA: IMPRESSION: NO EVIDENCE OF ACUTE PULMONARY EMBOLISM. CONSOLIDATIONS INVOLVING THE RIGHT MIDDLE AND LOWER LOBES. FINDING IS NONSPECIFIC AND UNDERLYING INFECTIOUS PROCESS OR POSSIBLY PROGRESSION DISEASE GIVEN THE HISTORY OF CANCER CANNOT BE EXCLUDED. CT FOLLOW-UP IS RECOMMENDED TO ENSURE RESOLUTION. A&P - Infectious Disease (1) Bacteremia due to Streptococcus pneumoniae: (2) Pneumonia: (3) Immunosuppressed due to chemotherapy: Plan Chemotherapy for breast cancer she is afebrile and not neutropenic. Blood cultures with Streptococcus pneumonia. Upper respiratory panel with negative target pathogen's. Check urine strep antigen andsputum culture. CT scan as above with consolidations in the right middle and lower lobe. Is likely she hascommunity-acquired pneumonia due to Streptococcus pneumoniae. Given nonneutropenic adjust cefepime to ceftriaxone. This should target a Streptococcus pneumonia. UA was abnormal but ceftriaxone is also good coverage for urinary tract infections as well although she is asymptomatic specifically. Will repeat blood cultures given port Documented By: Roshan Reynoso MD 09/18/24 0943 Signed By: <Electronically signed by MD Roshan Reynoso> 09/18/24 0953 [facility] Work Phone: [phone] [place] [address] Infect. Disease Consult Note Signed Patient: Adelina Mir MR#: [id number] : 1960 Acct:[id number] Age/Sex: 63 / F Adm Date: 5 Loc: Room: [address] [place] [address] Type: ADM IN Attending Dr: Joe Garcia MD Copies to: MD Joe Rios MD Samuel E Ross MD~ HPI Data of Consult Consult date: 09/18/24 Requesting Physician: Joe Garcia MD Primary Care Provider: Michael Holley MD Consult Narrative History of present illness: Ms. Mir is a 63 year old female who undergoes chemotherapy. She was having a follow-up with her oncologist and patient had complained of not feelingwell with decreased appetite and shortness of breath. Pulse ox was low. She was sent to the ER and therefore admitted. She has been sick over the last couple weeks. Cough and congestion. CTA showed no PE but consolidation seen onthe right side.Blood cultures have since come back positive for Streptococcus pneumoniae for which is the reason Elvis consulted. Patient was found to be extremely anemic with a hemoglobin of 5.6. White count was 4.8. CC: Joe Garcia MD Review of Systems Review of Systems All other systems reviewed & are negative unless noted below or in HPI [facility] Medical History Osteopenia Encounter for screening for osteoporosis Breast cancer, left Hypertension Surgical History History of knee surgery bilateral History of lumpectomy of left breast History of cholecystectomy History of appendectomy History of hysterectomy History of foot surgery multiple bilateral Family History Family/Other Breast cancer Social History Smoking Status: Former smoker Tobacco Type: cigarettes Substance Use Type: Prescribed and Marijuana Substance Abuse Comment: marijuana medical Allergies and Medications Allergies and Active Meds Allergies Corticosteroids (Glucocorticoids) Allergy (Verified 09/17/24 12:38) Unknown Reaction metaxalone (From Skelaxin) Allergy (Verified 09/17/24 12:38) Unknown Reaction entex Allergy (Uncoded 02/08/24 15:18) Unknown Reaction Active Medications Acetaminophen (Acetaminophen 325 Mg Tablet) 650 mg PO Q6HR PRN PRN Reason: Pain Scale 1 - 3 or fever Stop: 09/17/25 15:08 Last Admin: 09/17/24 22:15 Dose: 650 mg Alprazolam (Alprazolam 0.25 Mg Tablet) 0.25 mg PO TID PRN PRN Reason: anxiety Stop: 03/16/25 16:51 Benzonatate (Benzonatate 100 Mg Capsule) 200 mg PO TID PRN PRN Reason: Cough Stop: 09/17/25 16:48 Last Admin: 09/17/24 22:15 Dose: 200 mg Cyclobenzaprine HCl (Cyclobenzaprine 10 Mg Tablet) 10 mg PO HS PRN PRN Reason: Muscle Spasticity Stop: 09/17/25 21:59 Fluticasone Propionate (Fluticasone Propionate Amalia 120 Amalia/16 Gm Bottle) 1 spray INTRANASAL [facility]IDFORMERLY [facility] Stop: 09/17/25 20:59 Last Admin: 09/18/24 08:45 Dose: 1 spray Gabapentin (Gabapentin 300 Mg Capsule) 300 mg PO TID [facility] Stop: 09/17/25 21:59 Last Admin: 09/18/24 08:39 Dose: 300 mg Guaifenesin (Guaifenesin 600 Mg Tab.Er.12h) 1,200 mg PO BID [facility] Stop: 09/17/25 20:59 Last Admin: 09/18/24 08:39 Dose: 1,200 mg Sodium Chloride (0.9% Sodium Chloride 100 Ml) 100 mls @ 20 mls/hr IV PROTOCOL PRN PRN Reason: BLOOD TRANSFUSION Stop: 09/18/24 14:45 Lactated Ringer's (Lactated Ringers) 1,000 mls @ 75 mls/hr IV .[id number] [facility] Stop: 09/17/25 15:14 Last Admin: 09/18/24 01:07 Dose: 75 mls/hr Cefepime HCl (Maxipime) 1 gm in 50 mls @ 12.5 mls/hr IV Q12H [facility] Last Admin: 09/18/24 01:07 Dose: 12.5 mls/hr Doxycycline Hyclate (Doxy 100) 100 mg in 100 mls @ 100 mls/hr IV Q12H [facility] Last Admin: 09/18/24 08:45 Dose: 100 mls/hr Potassium Chloride 40 meq/ (Sodium Chloride) 520 mls @ 130 mls/hr IV ONCE ONE Stop: 09/18/24 13:59 Morphine Sulfate (Morphine Sulfate 2 Mg/Ml Vial) 2 mg IV-PUSH Q4H PRN PRN Reason: Pain Scale 8 - 10 Last Admin: 09/18/24 08:39 Dose: 2 mg Oxycodone/Acetaminophen (Oxycodone/Acetaminophen 5-325 Mg Tablet) 1 tab PO [id number] PRN Reason: pain Pantoprazole Sodium (Pantoprazole 40 Mg Vial) 40 mg IV-PUSH DAILY IVY Stop: 09/18/25 08:59 Last Admin: 09/18/24 08:39 Dose: 40 mg Potassium Chloride (Potassium Chloride Er 20 Meq Tab.Er.Prt) 20 meq PO ONCE ONE Stop: 09/18/24 09:46 Prochlorperazine Edisylate (Prochlorperazine Edisylate 10 Mg/2 Ml Vial) 5 mg IV- PUSH Q4H PRN PRN Reason: Nausea And Vomiting Stop: 09/17/25 15:08 Sodium Chloride (Sodium Chloride 0.9 % 10 Ml Syringe) 0 ml IV-PUSH PRN PRN PRN Reason: Flush Stop: 09/17/25 12:36 Last Admin: 09/18/24 08:39 Dose: 40 ml Sodium Chloride (Sodium Chloride 0.9 % 10 Ml Vial.Pf) 10 ml INJECTION PRN PRN PRN Reason: Dilution Stop: 09/17/25 16:44 Sodium Chloride (Sodium Chloride 0.9 % 10 Ml Syringe) 10 ml IV-PUSH PRN PRN PRN Reason: Flush Stop: 09/17/25 16:44 Exam Physical Exam Vital Signs: Vital Signs Temp Pulse Pulse Resp BP BP Pulse Ox 09/18/24 08:48 98.6 F 108 H 20 136/78 97 09/18/24 08:00 09/18/24 06:00 98.1 F 102 H 24 133/70 97 09/18/24 04:54 127/66 09/18/24 04:00 09/18/24 02:15 97.8 F 79 18 93/54 L 97 09/18/24 02:15 97.8 F 79 16 93/54 L 97 09/18/24 01:15 97.9 F 83 18 96/51 L 99 09/18/24 01:00 98.2 F 72 18 87/44 L 98 09/18/24 00:00 09/18/24 00:00 97.9 F 83 18 96/51 L 99 09/18/24 00:00 09/18/24 00:00 98.4 F 90 18 102/55 L 97 09/17/24 23:05 98.1 F 96 18 107/51 L 98 09/17/24 22:53 09/17/24 22:30 98.7 F 95 18 112/59 L 99 09/17/24 22:15 89 18 95/50 L 98 09/17/24 21:55 98.1 F 86 16 87/53 L 100 09/17/24 21:02 09/17/24 20:40 98.2 F 87 18 85/55 L 100 09/17/24 20:00 09/17/24 20:00 98.2 F 87 18 85/55 L 100 09/17/24 19:30 98 F 97 18 107/56 L 97 09/17/24 19:00 83 18 91/50 L 100 09/17/24 18:38 98.1 F 94 18 102/56 L 100 09/17/24 18:35 101 H 20 101/60 90 L 09/17/24 17:50 98.1 F 91 20 98/54 L 94 L 09/17/24 17:20 97.9 F 96 18 115/66 94 L 09/17/24 17:05 98.1 F 93 20 102/56 L 94 L 09/17/24 16:50 88 20 95/55 L 94 L 09/17/24 16:50 98 F 88 92/55 L 94 L 09/17/24 15:30 85 20 108/64 92 L 09/17/24 14:30 69 18 98/51 L 91 L 09/17/24 13:49 88 22 98/55 L 90 L 09/17/24 13:49 86 L 09/17/24 13:29 22 92 L 09/17/24 13:29 89 09/17/24 12:38 20 91 L 09/17/24 12:33 98.9 F 111 H 20 91/52 L 86 L O2 Del Method O2 Flow Rate 09/18/24 08:48 Nasal Cannula 5 09/18/24 08:00 Nasal Cannula 5 09/18/24 06:00 Nasal Cannula 6 09/18/24 04:54 09/18/24 04:00 Nasal Cannula 6 09/18/24 02:15 Nasal Cannula 6 09/18/24 02:15 09/18/24 01:15 09/18/24 01:00 09/18/24 00:00 Nasal Cannula 6 09/18/24 00:00 Nasal Cannula 6 09/18/24 00:00 Nasal Cannula 6 09/18/24 00:00 09/17/24 23:05 09/17/24 22:53 Nasal Cannula 6 09/17/24 22:30 09/17/24 22:15 09/17/24 21:55 09/17/24 21:02 Nasal Cannula 6 09/17/24 20:40 09/17/24 20:00 Nasal Cannula 6 09/17/24 20:00 Nasal Cannula 6 09/17/24 19:30 09/17/24 19:00 09/17/24 18:38 Nasal Cannula 6 09/17/24 18:35 09/17/24 17:50 09/17/24 17:20 09/17/24 17:05 09/17/24 16:50 Nasal Cannula 4 09/17/24 16:50 09/17/24 15:30 Nasal Cannula 6 09/17/24 14:30 Nasal Cannula 6 09/17/24 13:49 Nasal Cannula 6 09/17/24 13:49 Nasal Cannula 5 09/17/24 13:29 Nasal Cannula 3 09/17/24 13:29 09/17/24 12:38 Nasal Cannula 4 09/17/24 12:33 Nasal Cannula 3 Intake and Output 09/17/24 09/18/24 09/18/24 23:59 07:59 15:59 Intake Total 100 / 1150 600 / 600 Output Total 350 / 350 Balance 100 / 1150 250 / 250 Intake: IV 100 / 1150 Doxycycline Hyc 100 mg - *Ns* 100 / 100 100 mg In 100 ml @ 100 mls/hr IV Q12H [facility] Rx#:[id number] Oral 600 / 600 Output: Urine Amount (Catheter) 350 / 350 [place] 350 / 350 Other: Total Intake (Blood Product) Cumulative Amt Leukocyte Reduced Rbc Unit 0 325 [id number] Leukocyte Reduced Rbc Unit 325 [id number] # Voids 1 # Unmeasured Voids 2 # Bowel Movements 0 Weight 60 kg 60.1 kg Date of Last Bowel Movement 09/16/24 09/16/24 Patient Weight 09/18/24 23:59 Weight 60.1 kg Const General: ill appearing Orientation: oriented x3 HEENT Head: normal to inspection Ears: hearing grossly normal bilaterally Nose: external nose normal Face and sinus: normal facial exam Mouth: oral mucosae normal Eyes General: appearance normal, both eyes and all related structures Neck Neck: normal visual inspection Chest Chest palpation & inspection: abnormal inspection of the chest Other: R chest wall port Resp Effort & Inspection: cough, decreased respiratory effort and tachypneic Auscultation: rhonchi right lower Cardio Rate: tachycardic GI Inspection: normal to inspection Palpation: soft and nontender Skin General: no rashes or lesions noted Neuro General: patient oriented x3 Extrem General: normal to inspection Results - Infectious Disease Labs 09/18/24 04:58 09/18/24 04:58 Labs: 09/17/24 13:00: Corrected WBC 4.8, Uncorrected WBC Count 4.8, BUN 60 H, Creatinine 1.49 H 09/18/24 04:58: Corrected WBC 6.5, Uncorrected WBC Count 6.5, BUN 43 H, Creatinine 1.02 09/17/24 13:43 Urine Color Yellow Urine Appearance Cloudy A Urine pH 5.5 Ur Specific [place] 1.015 Urine Protein 50 H Urine Glucose (UA) 70 H Urine Ketones Negative Urine Occult Blood 2+ H Urine Nitrite Negative Urine Bilirubin Negative Urine Urobilinogen 3 H Ur Leukocyte Esterase 4+ H Urine RBC 20-49 H Urine WBC Innumerable H Urine WBC Clumps Many H Ur Squamous Epith Cells 1-2 Urine Bacteria 3+ H Hyaline Casts 9-19 H Urine Mucus Rare Microbiology Results Microbiology Narrative: 09/17/24 12:58 Blood Culture - Preliminary Blood - Port Streptococcus pneumoniae Bacterial ID (NA Multiplex Assay) - Final 09/17/24 13:10 Blood Culture - Preliminary Blood - Right Antecubital Gram Positive Diplococci 09/17/24 17:24 Respiratory Panel (PCR) - Final Nasopharyngeal 09/17/24 13:43 Urine Culture - Pending Urine - Straight Cath Imaging and Cardiology Status: report viewed by me Results Comments: CTA: IMPRESSION: NO EVIDENCE OF ACUTE PULMONARY EMBOLISM. CONSOLIDATIONS INVOLVING THE RIGHT MIDDLE AND LOWER LOBES. FINDING IS NONSPECIFIC AND UNDERLYING INFECTIOUS PROCESS OR POSSIBLY PROGRESSION DISEASE GIVEN THE HISTORY OF CANCER CANNOT BE EXCLUDED. CT FOLLOW-UP IS RECOMMENDED TO ENSURE RESOLUTION. A&P - Infectious Disease (1) Bacteremia due to Streptococcus pneumoniae: (2) Pneumonia: (3) Immunosuppressed due to chemotherapy: Plan Chemotherapy for breast cancer she is afebrile and not neutropenic. Blood cultures with Streptococcus pneumonia. Upper respiratory panel with negative target pathogen's. Check urine strep antigen andsputum culture. CT scan as above with consolidations in the right middle and lower lobe. Is likely she hascommunity-acquired pneumonia due to Streptococcus pneumoniae. Given nonneutropenic adjust cefepime to ceftriaxone. This should target a Streptococcus pneumonia. UA was abnormal but ceftriaxone is also good coverage for urinary tract infections as well although she is asymptomatic specifically. Will repeat blood cultures given port Documented By: Roshan Reynoso MD 09/18/24 0943 Signed By: 09/18/24 0953 [facility] [id number] [place] [address] Hospitalist H&P Signed Patient: Adeilna Mir MR#: [id number] : 1960 Acct:[id number] Age/Sex: 63 / F Adm Date: 5 Loc: Room: [address] [place] [address] Type: ADM IN Attending Dr: Joe Garcia MD Copies to: MD Michael Herrmann MD~ HPI DATE OF EXAMINATION: 09/17/24 CHIEF COMPLAINT: SOB HISTORY OF PRESENT ILLNESS: Patient is a 63-year-old female with medical history as listed below, including recent diagnosis ofbreast cancer, underwent surgery, currently getting chemotherapy, her private oncologist as outpatient Dr. Glez. Patient had visit at the cancer center and upon checking her vital signs with patient being not eating and short of breath, her oxygen saturation around 70% on room air, heart ratein the 30s, blood pressure 60s over 45. Patient was sent to the ER forfurther evaluation and management. Patient reports that she has been feeling sick with cough and congestion over the past severalweeks, however her cough and sputum production has increased over the past several days, clear in color, she does report chills but no fever at home she was placed on oxygen here up to 6 L in the ER to maintain appropriate saturation. Reports symptoms of Pleurisy . She presented hypotensive with blood pressure 60s over 40s which improved with hydration. Patient reports that her last chemotherapywas 2024. She denies nausea or vomiting or diarrhea. She was given IV antibiotics in the ER, blood cultures were collected, CT PE protocol was done with no evidence of PE however it does show consolidation on the right middle and lower lobes. Her white count 4.8, however her hemoglobin also found to be low at 5.6, patient denies any history of blood transfusion, patient denies any signsor symptoms of bleeding, denies any melena or bleeding per rectum. Also noted that she has thrombocytopenia with platelet count at 24, no signs of active bleeding. Noted to have ROSAMARIA on admission withhypokalemia and hyponatremia. She was given IV fluids and IV antibiotics in the ER, ordered 2 unitsof blood in the ER, decision was made to admit her for further evaluation and management. Review of Systems Review of Systems Review of systems: 10 systems are reviewed and are negative except as mentioned elsewhere in the documentation [facility] Medical History Osteopenia Encounter for screening for osteoporosis Breast cancer, left Hypertension Surgical History History of knee surgery bilateral History of lumpectomy of left breast History of cholecystectomy History of appendectomy History of hysterectomy History of foot surgery multiple bilateral Family History Family/Other Breast cancer Social History Smoking Status: Former smoker Tobacco Type: cigarettes Substance Use Type: Marijuana Substance Abuse Comment: marijuana medical Meds Medications and Allergies Allergies Corticosteroids (Glucocorticoids) Allergy (Verified 09/17/24 12:38) Unknown Reaction metaxalone (From Skelaxin) Allergy (Verified 09/17/24 12:38) Unknown Reaction entex Allergy (Uncoded 02/08/24 15:18) Unknown Reaction Home Medications alprazolam 0.25 mg tablet 0.25 mg PO TID PRN anxiety 02/08/24 [History Confirmed 09/17/24] aspirin 81 mg tablet,delayed release 81 mg PO DAILY 02/08/24 [History Confirmed 09/17/24] cyclobenzaprine 10 mg tablet 10 mg PO HS 02/08/24 [History Confirmed 09/17/24] gabapentin 300 mg capsule 300 mg PO TID 02/08/24 [History Confirmed 09/17/24] losartan 50 mg-hydrochlorothiazide 12.5 mg tablet 1 tab PO DAILY 02/08/24 [History Confirmed 09/17/24] ondansetron 8 mg disintegrating tablet 8 mg PO Q8HR PRN nausea and vomiting #30 tabs 05/30/24 [Rx Confirmed 09/17/24] prochlorperazine maleate 10 mg tablet (Compazine) 10 mg PO Q6HR PRN nausea and vomiting #30 tabs 05/30/24 [Rx Confirmed 09/17/24] naloxone 4 mg/actuation nasal spray 4 mg intranasal Q2-3M PRN opioid overdose #2ea 08/22/24 [Rx Confirmed 09/17/24] oxycodone-acetaminophen 5 mg-325 mg tablet 1 tab PO Q8HR PRN pain 30 days #90 tabs 08/23/24 [Rx Confirmed 09/17/24] cetirizine 10 mg tablet 10 mg PO DAILY 09/17/24 [History Confirmed 09/17/24] fluticasone propionate 50 mcg/actuation nasal spray,suspension 1 spray intranasal BID 09/17/24 [History Confirmed 09/17/24] Exam Physical Exam Vital Signs: Temp Pulse Resp BP Pulse Ox O2 Del Method O2 Flow Rate 98.9 F 69 18 98/51 L 91 L Nasal Cannula 6 09/17/24 12:33 09/17/24 14:30 09/17/24 14:30 09/17/24 14:30 09/17/24 14:30 09/17/24 14:30 09/17/24 14:30 Narrative: Const General: cooperative, ill and tired appearing, cachectic appearing HEENT Dry oropharyngeal mucosa without any ulcers or exudates Eyes: Conjunctiva normal Pulmonary Auscultation: Diminished breath sounds, right-sided rhonchi, no wheezes Chest: catheter noted on R chest Cardiovascular Rate: normal rate Rhythm: regular rhythm Heart Sounds: S1 normal, S2 normal and no murmurs GI Inspection: non-distended Palpation: soft, not firm and nontender. No rigidity or rebound. Deferred Neuro General: alert, awake and oriented x3. No obvious new focal deficit Musculoskeletal: normal range of motion Extrem General: no cyanosis, no pedal edema Psych Appearance: appropriate affect. Grossly normal, pleasant Results - Hospitalist H&P Lab Results Labs: Laboratory Last Values Corrected WBC 4.8 X10E3/uL (3.8-11.6) 09/17/24 13:00 Uncorrected WBC Count 4.8 x10E3/uL (3.8-11.6) 09/17/24 13:00 RBC 1.71 x10E6/uL (3.60-5.00) L 09/17/24 13:00 Hgb 5.6 g/dL (11.8-15.4) L 09/17/24 13:00 Hct 16.0 % (34.0-46.4) L* 09/17/24 13:00 MCV 93.2 fl (80-100) 09/17/24 13:00 MCH 32.7 pg (24.7-34.3) 09/17/24 13:00 MCHC 35.1 g/dL (32.0-35.0) H 09/17/24 13:00 RDW 14.9 % (11.9-15.3) 09/17/24 13:00 Plt Count 24 x10E3/uL (150-450) L* 09/17/24 13:00 MPV 10.3 fl (6.3-10.7) 09/17/24 13:00 Neut % (Auto) 73.2 % (.) 09/17/24 13:00 Lymph % (Auto) 3.2 % (.) 09/17/24 13:00 [place] % (Auto) 23.5 % (.) 09/17/24 13:00 Eos % (Auto) 0.1 % (.) 09/17/24 13:00 Baso % (Auto) 0.0 % (.) 09/17/24 13:00 Nucleat RBC Rel Count 0.2 /100 WBC (0-0.5) 09/17/24 13:00 Neut # (Auto) 3.5 x10E3/uL (1.8-7.7) 09/17/24 13:00 Lymph # (Auto) 0.2 x10E3/uL (1.00-4.8) L 09/17/24 13:00 [place] # (Auto) 1.1 x10E3/uL (0.0-0.8) H 09/17/24 13:00 Eos # (Auto) 0.0 x10E3/uL (0.0-0.45) 09/17/24 13:00 Baso # (Auto) 0.0 x10E3/uL (0.0-0.2) 09/17/24 13:00 Lymphocytes % 2 % (18-42) L 09/17/24 13:00 Monocytes % 23 % (2-11) H 09/17/24 13:00 Eosinophils % 2 % (1-3) 09/17/24 13:00 Basophils % 0 % (0-2) 09/17/24 13:00 Segmented Neutrophils 73 % (50-70) H 09/17/24 13:00 Monocyte Dist Width 29.44 % (0.00-20.00) H 09/17/24 13:00 Platelet Estimate Decreased (Normal) 09/17/24 13:00 Plt Morphology Comment Normal (Normal) 09/17/24 13:00 RBC Morphology N/A 09/17/24 13:00 Polychromasia Slight 09/17/24 13:00 Hypochromasia Moderate 09/17/24 13:00 Poikilocytosis Slight 09/17/24 13:00 Anisocytosis Slight 09/17/24 13:00 Microcytosis Slight 09/17/24 13:00 Ovalocytes Slight 09/17/24 13:00 PT 15.2 Seconds (9.0-12.9) H 09/17/24 13:00 INR 1.3 09/17/24 13:00 PHA Creatinine Clear 35.84 09/17/24 13:00 Sodium 133 mmol/L (136-145) L 09/17/24 13:00 Potassium 3.0 mmol/L (3.5-5.1) L 09/17/24 13:00 Chloride 94 mmol/L (98-107) L 09/17/24 13:00 Carbon Dioxide 26.4 mmol/L (21.0-31.0) 09/17/24 13:00 Anion Gap 15.6 mEq/L (6.0-15.0) H 09/17/24 13:00 BUN 60 mg/dL (7-25) H 09/17/24 13:00 Creatinine 1.49 mg/dL (0.60-1.20) H 09/17/24 13:00 Est GFR (CKD-EPI) 39.473 mL/Min 09/17/24 13:00 Glucose 172 mg/dL (70-100) H 09/17/24 13:00 Lactic Acid 1.2 mmol/L (0.5-2.2) 09/17/24 13:00 Calcium 8.8 mg/dL (8.6-10.3) 09/17/24 13:00 Total Creatine Kinase 101 U/L (30-223) 09/17/24 13:00 Troponin I High Sens 44.2 pg/mL (0.0-15.0) H 09/17/24 13:00 B-Natriuretic Peptide 261.0 pg/mL (5-100) H 09/17/24 13:00 Urine Color Yellow (Yellow) 09/17/24 13:43 Urine Appearance Cloudy (Clear) A 09/17/24 13:43 Urine pH 5.5 (5.0-9.0) 09/17/24 13:43 Ur Specific [place] 1.015 (1.001-1.030) 09/17/24 13:43 Urine Protein 50 mg/dL (Negative) H 09/17/24 13:43 Urine Glucose (UA) 70 mg/dL (Normal) H 09/17/24 13:43 Urine Ketones Negative (Negative) 09/17/24 13:43 Urine Occult Blood 2+ (Negative) H 09/17/24 13:43 Urine Nitrite Negative (Negative) 09/17/24 13:43 Urine Bilirubin Negative (Negative) 09/17/24 13:43 Urine Urobilinogen 3 mg/dL (Normal) H 09/17/24 13:43 Ur Leukocyte Esterase 4+ (Negative) H 09/17/24 13:43 Urine RBC 20-49 /HPF (0-4) H 09/17/24 13:43 Urine WBC Innumerable /HPF (0-4) H 09/17/24 13:43 Urine WBC Clumps Many /LPF (None Seen) H 09/17/24 13:43 Ur Squamous Epith Cells 1-2 /HPF (0-2) 09/17/24 13:43 U Non-Squamous Epi Cells 1-2 /HPF (None Seen) H 09/17/24 13:43 Urine Bacteria 3+ /HPF (None Seen) H 09/17/24 13:43 Hyaline Casts 9-19 /LPF (0-8) H 09/17/24 13:43 Urine Mucus Rare /LPF 09/17/24 13:43 Blood Type O Positive 09/17/24 14:28 Crossmatch (AHG) See Detail 09/17/24 14:28 Assessment & Plan Assessment/Plan (1) Pancytopenia: (2) UTI (urinary tract infection): (3) Pneumonia: (4) Acute anemia: Plan Acute hypoxic respiratory failure secondary to right-sided pneumonia (RML and RLL) Known recent diagnosis of breast cancer on chemo (4 rounds, last dose 09/05/24) Hypotensive on admission concern for sepsis PE ruled out Immunocompromised state -Afebrile, has chills, no leukocytosis -CT chest no PE, has consolidation RML and RLL -Start Cefepime IV dosing per pharmacy. Doxycycline for atypical coverage. -Antitussive agents as needed as directed -Follow-up blood cultures and sputum culture -Oxygen supplements as needed -Monitor for fever/leukocytosis ROSAMARIA likely secondary to volume depletion due to poor oral intake Acute cystitis Hyponatremia/hypokalemia/metabolic alkalosis -Follow up urine culture -Gentle IV hydration as directed -Avoid ACEI, ARB for now -Optimized electrolytes to keep K>4, Mg>2, P>3 -Avoid nephrotoxic medications Acute anemia Acute thrombocytopenia -Likely chemo induced -Ordered 2 units of blood in ER. Serial H/H -PLT count 24 on admission. no signs of overt GI bleed or any active bleed. monitor for now. Elevated troponin likely demand ischemia due to ROSAMARIA, infectious process, severe volume depletion -Trend trop -Recet Echo seems normal EF and LV function. Home medications resumed as appropriate Diet: regular DVT ppx: SCDs GI ppx: PPI Code status: Full Status: inpatient Discussed with patient and family at bedside. All questions answered. In agreement with the above plan Joe Dinero MD Internal Medicine Hospitalist Attending Physician IP vs OBS Justification Based on differential dx, clinical care plan, and risk of adverse events, if untreated, in my clinical judgement this patient requires an acute care setting as: INPATIENT because of an expectation ofan over 2 midnight stay. Estimated length of stay (# of days): 3 Documented By: Joe Garcia MD 09/17/24 15 16 Signed By: 09/17/24 [id number] [facility] [place]01-14-2025 Radiology Diagnostic study note [facility] Main [place] [address] [place] [address] CT Scan Report Signed Patient: Adelina Mir MR#: [id number] : 1960 Acct:[id number] Age/Sex: 63 / F ADM Date: 5 Loc: ER Room: Type: [facility] ER Attending Dr: Copies to: Mode Ellsworth DO~ Ordering Provider: Mode Ellsworth DO Date of Service: 09/17/24 CT/CT angio chest PE protocol: ca, hypoxia, tachy, hypoten CT ANGIOGRAM OF THE CHEST, PULMONARY EMBOLISM PROTOCOL: CLINICAL INFORMATION: Shortness of breath low pulse ox. Cough. COMPARISON: CT chest 06/18/2024 TECHNIQUE: Following intravenous injection of contrast CT scans of the chest were obtained using pulmonary embolism protocol. Coronal and sagittal reconstructed images, as well as volume rendered CT pulmonary angiographic images were also submitted.The CT exam was performed using one or more of the following dose reduction techniques: Automated exposure control, adjustment of the MA and/or Kv according to patient size, or use of the iterative reconstruction technique. FINDINGS: Pulmonary Vasculature: Contrast bolus is adequate for evaluation of pulmonary embolism. Pulmonary trunk appears nondilated. No filling defects are identified to suggest pulmonary embolism. Mediastinum : Thoracic aorta is normal in caliber. Right-sided port is in place. No pericardial effusion. No lymphadenopathy. The esophagus is grossly unremarkable. Lungs: Consolidative changes involving the right middle and lower lobes. No pneumothorax. Emphysema. No pleural effusion. Upper abdomen: No acute findings stable 3.2 cm nodule left adrenal gland. Soft tissue/bones: Soft tissues surrounding the chest wall demonstrate no acute findings. Osseous structures demonstrate degenerative change. CT/CT angio chest PE protocol IMPRESSION: NO EVIDENCE OF ACUTE PULMONARY EMBOLISM. CONSOLIDATIONS INVOLVING THE RIGHT MIDDLE AND LOWER LOBES. FINDING IS NONSPECIFIC AND UNDERLYING INFECTIOUS PROCESS OR POSSIBLY PROGRESSION DISEASE GIVEN THE HISTORY OF CANCER CANNOT BE EXCLUDED. CT FOLLOW-UP IS RECOMMENDED TO ENSURE RESOLUTION. Impression dictated by: Jayden Cabral Jr., D.O.09/17/2024 2:31 PM Dictation Location: [place] [address] Transcribed By: [facility] 09/17/24 1431 Dictated By: Jayden Cabral Jr, DO 09/17/24 1427 Signed By: 09/17/24 1431 [facility] [place]01-14-2025 Evaluation note* Diagnosis Onset Date Resolution Status Admit Date Breast cancer, left acuteJanuary 2024 11:17amOsteopeniainactiveJanuary 2024 11:17am Breast cancer, leftacuteJanuary 2024 2:47pmAcute anemiainactiveJanuary 2024 2:47pmBacteremia due to Streptococcus pneumoniaeinactiveSepuary 2024 2:47pmImmunosuppressed due to chemotherapyinactiveJanuary 2024 2:47pm OsteopeniainactiveJanuary 2024 2:47pmPancytopeniainactiveJanuary 2024 2:47pmPneumoniainactiveJanuary 2024 2:47pmUTI (urinary tract infection)inactiveSepuary 2024 2:47pmBreast cancer, leftacuteJanuary 2024 2:48pmOsteopeniainactiveJanuary 2024 2:48pmBreast cancer, leftacute October 16, 2024 9:46amOsteopeniainactiveFebruary 2024 9:46am Necrotizing pneumoniaacuteFebruary 2024 1:34pmBacteremia due to Streptococcus pneumoniaeinactiveFebruary 2024 1:34pmPneumoniainactive October 17, 2024 1:34pmAdjustment disorder with mixed anxiety and depressed moodacuteFebruary 2024 2:04pmBreast cancer, leftacuteFebruary 2024 2:04pmCancer associated painacuteFebruary 2024 2:04pmNeuropathyacute October 17, 2024 2:04pmBreast cancer, leftacuteFebruary 2024 7:45am Cancer associated painacuteFebruary 2024 7:45amNeuropathyacuteFebruary 2024 7:45amBreast cancer, leftacuteFebruary 2024 9:58amOsteopenia inactiveFebruary 2024 9:58amBreast cancer, leftacuteMarch 2024 7:52amCancer associated painacuteMarch 2024 7:52amConstipationacuteMarch 2024 7:52amNeuropathyacuteMarch 2024 7:52amBreast cancer, leftacute December 11, 2024 10:36amOsteopeniainactiveApril 2024 10:36am [facility] Work Phone: 1(278) 422-809201-14-2025 [facility] [place] [address] Cancer Center Note Signed Patient: Adelina Mir MR#: [id number] : 1960 Acct:[id number] Age/Sex: 63 / F Type: REG AMB Date of Service: 09/17/24 Copies to: Michael Holley MD~ Assessment & Plan A/P (1) Breast cancer, left: (2) Osteopenia: Plan Based on the biopsy done on 01/10/2024 it reveals pT1c, pNX, ER positive, TX positive, HER2/pat negative (1+), no DCIS, tumor size of the invasive ductal carcinoma is 1.7 cm at least with positive superior margin and no lymphovascularinvasion detected. No lymph nodes included in the biopsy. Patient was referredfor further surgical resection with bilateral mastectomy by Dr. Braun and Dr. Bustamante forreconstructive surgery. - Invitae gene testing done 03/01/24 was negative. -Bone density scan done on 02/15/2024 revealed osteopenia with a T-score of -1.4 in the left femoralneck. - Oncotype Dx score was done on the biopsy tissue based on unknown gwen statusat that time revealed: - If she is node-negative: Recurrence score of 5 with distant recurrence risk at 9 years of 3% withendocrine therapy alone with less than 1% benefit from the chemo. - If Node positive and premenopausal: Recurrence score will be 5 with distantrecurrence risk at 5 years 3% with her medicine better or endocrine therapy alone and chemo benefit 2.3%. -If she is postmenopausal and node positive the recurrence score is 5 with distant recurrence risk at 5 years with AI or tamoxifen alone is 1% and chemo benefit no apparent benefit noticed as it is less than 1% only. -If she has node positive of 4 or more lymph nodes then recurrence score is 5% and the distant recurrence at 9 years is 35% with AI and tamoxifen alone. -She underwent left breast mastectomy with sentinel node biopsy 05/16/2024, skin sparing with immediate reconstruction with tissue litharge supervisor by Dr. Bustamante. Surgical path from surgery done on 05/16/2024 revealed: A. Left axillary sentinel lymph node 1 out of 2 lymph nodes positive for metastatic carcinoma with mucinous features with extranodal extension again and 1 out of 2 lymph nodes. B. Lymph nodes in the left axillary sentinel lymph node 2 of 6 lymph nodes positive for metastatic carcinoma with mucinous features with extranodal extension. Left breast mastectomy revealed invasive ductal carcinoma with mucinous featuresgrade 2, 1.4 cm in greatest dimension. Ductal carcinoma in situ low-grade cribriform Lymphovascular invasion present Focal invasive carcinoma is present within 1 mm from inked inferior margin. Resection margins negative for DCIS with 5 mm from closest deep margin. Fibrocystic changes characterized by apocrine metaplasia and usual ductal hyperplasia with adenosisand microcalcification. Skin and nipple uninvolved by DCIS or invasive cancer Stage IIA, TNM stage is pT1c, pN1a. Number of lymph nodes with macrometastasis 3 and number of lymph nodes with isolated tumor cells 0 and number of lymph nodes with micrometastasis 0. Extranodal extension is present. ER positive over 90%, TX +80%, HER2 negative (1+), Ki-67 3% Treatment plan: After discussing the above findings from the surgical path with her and considering that she has extranodal extension of 3 out of 6 lymph nodes and lymphovascular invasion positive with 1.4 cm tumor that is grade 2, I recommended adjuvant chemo using dose dense AC followed by T followed by adjuvantradiation followed by adjuvant endocrine therapy. She agreed and signed the consent. Side effects were discussed with patient. 07/31/24: She is here for 1 week toxicity check after cycle 1 of dose dense AC obtained orgiven on 07/24/2024. She tolerated C1 without any complaints but has same postnasal drainage for more than 4 weeks evenbefore chemo without sore throat or fevers. She tried Benadryl and can not take steroids due to allergy to steroids. She is scheduled for cycle 2 on 08/08/2024. Labs on 07/30/2024 revealed normal CBC with normal WBC of 5.7 normal ANC of 4.2 and unremarkable CMP. - Proceeded with cycle 2 of dose dense AC on 08/08/2024. 08/21/24: She is here for evaluation prior to her C3 of the adjuvant ddAC scheduled on 08/22/24. She had mildfatigue and had nausea for 6 days after cycle 2 of dose dense AC but not vomiting and no chest painor shortness of breath or leg edema or abdominal pain or diarrhea. She has chronic peripheral neuropathy even before chemotherapy. No fevers or current infections. Her Zofran she took daily for 6 days after cycle 2 helped her nausea. PLAN: Proceed with C3 ddAC on 08/21/24 if labs meets criteria for chemo. Continue using calcium 500 mg twice daily and vitamin D 2000 unit daily for her mild osteopenia. Next DEXA scan is in 02/2026. I asked her to take her Zofran daily for the first week after each dose dense ACgiven. Weekly CBCs and CMP. Try pepcid and Zyrtec for postnasal drainage. Returns in 2 weeks for cycle 4 of dose dense AC. After she completes 4 cycles of ddAC she then can start weekly taxol 2 weeks after C4 of AC. 09/03/24: She continues to do fairly well with treatment and will receive cycle 4 ddAC this week. Her labs remain okay for continued treatment. She will follow-up in2 weeks with Dr. Bales with plans of starting her weekly Taxol at that visit as well. 09/17/24: Patient sent to ED for worsening symptoms, will likely hold off on initiation of Taxol this week given acute concerns. Orders: Orders Urinalysis Today R39.9 - Unspecified symptoms and signs involving the genitourinary system Patient Instructions: f/u TBD CHEMO PLAN Treatment Plan DOXOrubicin & Cyclophosphamide (AC) [Stopped Sep 11] No Active Chemotherapy History of Present Illness SHAE Sahu is a 63-year-old nice lady with history of generalized anxiety disorder, ADHD, complex regional pain syndrome of the lower extremity, essential tremor, hypertension and osteoarthritis to has idiopathic polyneuropathy and scoliosis with history of intermittent marijuana use as needed for paincontrol who was referred to our medical oncology clinic by Dr. Braun for new findings of new leftbreast invasive ductal carcinoma grade 2, ER positive, TX positive, HER2/pat negative 1+, 1.7 cm at least invasive ductal carcinoma, negative for lymphovascular invasion, positive superior margin of the invasive cancer, no DCIS presents and no lymph nodes were obtained as per the biopsy done on 01/10/2024. Patient has been having intermittent nipple discharge with possible fistula fromthe left breast but no nipple bleeding for several months. She had BI-RADS 3 screening mammogram in April 2023 whichwas followed by ultrasound patient underwent initial biopsy of the suspicious left breast lesion on 07/12/2023 however results of the path of that biopsy was consistent with fibrovascular adipose tissue with no pathology present. Patient continues to have nipple discharge and Dr. Braun plan to do a lumpectomy however because of cardiac workupand clearance needed another biopsy was done on left breast under ultrasound guidance and it came back also inconclusive in November 2023 which led to excisional biopsy performed on 01/10/2024. The path results of that excisional biopsy done on 01/10/2024 is as follows: Pathological Diagnosis 01/10/2024: Mass, left breast, 7:00, lumpectomy: Invasive ductal carcinoma. Tumor Is 1.7 Cm In Greatest Dimension. Grade 2/ Moderately Differentiated. Tumor is present at the superior surgical margin. Tumor Is less than 0.1 Cm From The anterior and lateral surgical Margins. No Evidence Of Lymphovascular Invasion. Breast Hormone Profile ER: Positive TX: Positive HER2/pat by immunostain: Negative (1+) CAP CANCER CASE SUMMARY SPECIMEN Procedure: Excision [...] (when applicable) pM categories is based on informationavailable to the pathologist at the time the report is issued. As per the AJCC (Chapter 1, 8th Ed.) it is the managing physician's responsibility to establish the final pathologic stage based upon all pertinent information, including but potentially not limited to this pathology report. pT Category: pT1c pN Category: pNx Patient denies any family history of ovarian cancer however she has a cousin with breast cancer. She has a sister with multiple lumps under her breast but there were not cancerous. No known family history of ovarian cancer however joseph had mesothelioma. She does not know her father side because she does not know her biological father. 05/30/24: She is here for further planning of care after her left breast mastectomy and for results of the DEXA scan and Oncotype DX. Patient was sent to Dr. Bustamante for reconstructive breast surgeries as she is electing to go for bilateral mastectomy. She was also sent to our medical oncology clinic for recommendation regarding management of her new left breast cancer that is ER positive TX positive and HER2/pat negative but nolymph nodes were obtained as of this initial consult done on 02/08/2024. Surgery date yet to be determined [address] BRAUN. - Invitae gene testing done 03/01/24 was negative. -Bone density scan done on 02/15/2024 revealed osteopenia with a T-score of -1.4 in the left femoralneck. - Oncotype Dx score was done on the biopsy tissue based on unknown gwen statusat that time revealed: - If she is node-negative: Recurrence score of 5 with distant recurrence risk at 9 years of 3% withendocrine therapy alone with less than 1% benefit from the chemo. - If Node positive and premenopausal: Recurrence score will be 5 with distantrecurrence risk at 5 years 3% with her medicine better or endocrine therapy alone and chemo benefit 2.3%. -If she is postmenopausal and node positive the recurrence score is 5 with distant recurrence risk at 5 years with AI or tamoxifen alone is 1% and chemo benefit no apparent benefit noticed as it is less than 1% only. -If she has node positive of 4 or more lymph nodes then recurrence score is 5% and the distant recurrence at 9 years is 35% with AI and tamoxifen alone. -She underwent left breast mastectomy with sentinel node biopsy 05/16/2024, skin sparing with immediate reconstruction with tissue litharge supervisor by Dr. Bustamante. Surgical path from surgery done on 05/16/2024 revealed: A. Left axillary sentinel lymph node 1 out of 2 lymph nodes positive for metastatic carcinoma with mucinous features with extranodal extension again and 1 out of 2 lymph nodes. B. Lymph nodes in the left axillary sentinel lymph node 2 of 6 lymph nodes positive for metastatic carcinoma with mucinous features with extranodal extension. Left breast mastectomy revealed invasive ductal carcinoma with mucinous featuresgrade 2, 1.4 cm in greatest dimension. Ductal carcinoma in situ low-grade cribriform Lymphovascular invasion present Focal invasive carcinoma is present within 1 mm from inked inferior margin. Resection margins negative for DCIS with 5 mm from closest deep margin. Fibrocystic changes characterized by apocrine metaplasia and usual ductal hyperplasia with adenosisand microcalcification. Skin and nipple uninvolved by DCIS or invasive cancer Stage IIA, TNM stage is pT1c, pN1a. Number of lymph nodes with macrometastasis 3 and number of lymph nodes with isolated tumor cells 0 and number of lymph nodes with micrometastasis 0. Extranodal extension is present. ER positive over 90%, TX +80%, HER2 negative (1+), Ki-67 3% 07/31/24: She is here for 1 week toxicity check after cycle 1 of dose dense AC obtained [facility] on 07/24/2024. She tolerated C1 without any complaints but has same postnasal drainage for more than 4 weeks evenbefore chemo without sore throat or fevers. She tried Benadryl and can not take steroids due to allergy to steroids. She is scheduled for cycle 2 on 08/08/2024. Labs on 07/30/2024 revealed normal CBC with normal WBC of 5.7 normal ANC of 4.2 and unremarkable CMP. 08/21/24: She is here for evaluation prior to her C3 of the adjuvant ddAC scheduled on 08/22/24. She had mildfatigue and had nausea for 6 days after cycle 2 of dose dense AC but not vomiting and no chest painor shortness of breath or leg edema or abdominal pain or diarrhea. She has chronic peripheral neuropathy even before chemotherapy. No fevers or current infections. Her Zofran she took daily for 6 days after cycle 2 helped her nausea. 14 point review of systems was obtained and was negative. 09/03/24: She presents for cycle 4 ddAC. She continues with fatigue and dyspnea if she exerts herself, otherwise no chest pain or shortness of breath at rest. No change in her neuropathy with treatment. Her nausea has better controlled now that she is taking her antiemetics regularly. She is eating and drinking ok anddenies vomiting, diarrhea, or constipation. She denies other new concerns as well. Her labs remain okay for continued treatment. 09/17/24: She presents to clinic as an add-on for worsening symptoms. Her daughter is concerned that she has pneumonia as she has been having shortness of breath and not eating much at all. Vitals today note significant hypotension and decreasedheart rate. Her oxygen levels on arrival dropped between 70s/80sand she was placed on supplemental oxygen, up to 6 L in office before her sats improved intothe 90s. She has attempted to give a urine sample as she has concern for UTI aswell, however was not able to go. Given acute symptoms, we have decided to sendher to the ED for further evaluation. Intake Vitals/Pain Assessment 09/17/24 11:30 BP 64/45 L Blood Pressure Location Rt brachial Position Sitting Temp 98.0 F Temp Source Temporal Pulse 58 L Pulse Source NIBP Respiration 14 Pulse Oximetry (%) 97 Oxygen Delivery Method nasal canula Oxygen Flow Rate 4 Are you having pain? Yes Pain Location generalized Pain scale (0-10) 9 Intake Visit Reasons: Breast cancer follow-up Allergies Corticosteroids (Glucocorticoids) Allergy (Verified 09/03/24 13:47) Unknown Reaction metaxalone (From Skelaxin) Allergy (Verified 09/03/24 13:47) Unknown Reaction entex Allergy (Uncoded 02/08/24 15:18) Unknown Reaction - Last Reconciled 09/17/24 by MARY Chavarria alprazolam 0.25 mg PO TID PRN aspirin 81 mg PO DAILY cyclobenzaprine 10 mg PO TID gabapentin 300 mg PO BID losartan-hydrochlorothiazide 50-12.5 mg 1 tab PO DAILY naloxone 4 mg/actuation 4 mg intranasal Q2-3M PRN ondansetron 8 mg PO Q8HR PRN oxycodone-acetaminophen 5-325 mg 1 tab PO Q8HR PRN 30 days prochlorperazine maleate (Compazine) 10 mg PO Q6HR PRN Gastrointestinal Is the patient taking opioids for pain control?: Yes Bowel Protocol for Opioids Given: Yes Bowel Pattern: Diarrhea Falls Fall Precaution Measures Taken: Patient in chair Nurse's Note: Patient is here for an add on visit. Patient's daughter and state that she has not gotten out of bed in about 5 days, weakness, that she has not eaten since Monday, chest pain, shortness of breath, hot flashes, and urinary urgency and burning. Family also states that the patient has not taken any medications aside from pain medications. Patient is also very unsteady. Patient does have low blood pressure and oxygen saturation upon intake today. Blood pressure would not read upon first try. Switched cuff to right arm and gota reading of 64/45. Oxygen saturation wasas low as 71%. Placed patient on 4L oxygen, saturation came up to as high as 95%. [employer] Terra Demboskenotified of low BP and SpO2. [facility] Medical History Medical History (Updated 09/05/24 @ 11:08 by Kimberly Carnes CMA) Osteopenia Encounter for screening for osteoporosis Breast cancer, left Hypertension Surgical History Surgical History History of knee surgery bilateral History of lumpectomy of left breast History of cholecystectomy History of appendectomy History of hysterectomy History of foot surgery multiple bilateral Family History Family History Family/Other Breast cancer Social History Social History (Updated 02/08/24 @ 15:26 by Jen Guzmán Tierra) Smoking status: Former smoker What tobacco products do you use: cigarettes Smoking quit date/years:>15 years ago Within the past year, how often did you have a drink containing alcohol: monthly or less In the past 12 months, have you used illegal drugs or prescription drugs for non-medical reasons?: No Results - [facility] (Med [facility]c) LAB RESULTS Corrected WBC 14.3 X10E3/uL (3.8-11.6) H 09/03/24 13:15 08/06 09/27 Hgb 8.3 g/dL (11.8-15.4) L 09/03/24 13:15 09/03/24 Hct 24.4 % (34.0-46.4) L 09/03/24 13:15 09/03/24 MCV 93.2 fl (80-100) 09/03/24 13:15 09/03/24 RDW 14.8 % (11.9-15.3) 09/03/24 13:15 09/03/24 Plt Count 155 x10E3/uL (150-450) 09/03/24 13:15 09/03/24 Sodium 133 mmol/L (136-145) L 09/03/24 13:15 09/03/24 Potassium 3.7 mmol/L (3.5-5.1) 09/03/24 13:15 09/03/24 BUN 12 mg/dL (7-25) 09/03/24 13:15 09/03/24 Creatinine 1.22 mg/dL (0.60-1.20) H 09/03/24 13:15 Glucose 122 mg/dL (70-100) H 09/03/24 13:15 09/03/24 Est GFR (CKD-EPI) 50.176 mL/Min 09/03/24 13:15 09/03/24 Calcium 9.6 mg/dL (8.6-10.3) 09/03/24 13:15 09/03/24 Total Bilirubin 0.5 mg/dl (0.3-1.0) 09/03/24 13:15 09/03/24 AST 17 U/L (13-39) 09/03/24 13:15 09/03/24 ALT 12 U/L (7-52) 09/03/24 13:15 09/03/24 Alkaline Phosphatase 74 U/L (34-104) 09/03/24 13:15 09/03/24 Total Protein 6.7 gm/dL (6.4-8.9) 09/03/24 13:15 09/03/24 Albumin 3.8 gm/dL (3.5-5.7) 09/03/24 13:15 09/03/24 Dictated By: Cynthia Clayton APRN DD/ [id number] Signed By: 09/17/24 1231 [facility] [place]01-02-2025 [place] [address] Palliative Medicine Encounter Patient: Adelina Mir MR#: [id number] : 1960 Acct:[id number] Age/Sex: 63 / F Copies to: SOLA Wilcox MD~ HPI Date of Visit Date of Visit: 09/05/2024 Chief Complaint: Alannah is here for follow up at time of chemo. She was to continue Alprazolam .25mg TID, Gabapentin 300 mg BID and Oxycodone Acetaminophen 5/325 mg TID PRN at last office visit HPI: Sol is seen and examined; interim period and pertinent symptoms reviewed below and detailed in ESAS: Enjoyed wonderful holidays with her family Left lower leg and foot neuropathy has been very bothersome since last chemo; continues gabapentin 300 mg BID and has been using Percocet 5-325 tab, trying tokeep use down to TID Nausea has been mild-moderate with use of zofran ODT and prochlorperazine every AM, no emesis; nausea often associated with increased pain severity Appetite & weight are fairly stable - eats well when she likes what she is eating Cough persists but is less productive, sputum less thick and sticky; feels SOB only with exertion Anxiety tends to increase with pain severity Intake Allergies Corticosteroids (Glucocorticoids) Allergy (Verified 09/03/24 13:47) Unknown Reaction metaxalone (From Skelaxin) Allergy (Verified 09/03/24 13:47) Unknown Reaction entex Allergy (Uncoded 02/08/24 15:18) Unknown Reaction Home Medications ?Medication ?Instructions ?Recorded ?Confirmed alprazolam 0.25 mg tablet 0.25 mg PO TID PRN anxiety 02/08/24 09/03/24 aspirin 81 mg tablet,delayed 81 mg PO DAILY 02/08/24 09/03/24 release cyclobenzaprine 10 mg tablet 10 mg PO TID 02/08/24 09/03/24 gabapentin 300 mg capsule 300 mg PO BID 02/08/24 09/03/24 losartan 50 mg-hydrochlorothiazide 1 tab PO DAILY 02/08/24 09/03/24 12.5 mg tablet ondansetron 8 mg disintegrating 8 mg PO Q8HR PRN nausea and 05/30/24 09/03/24 tablet vomiting #30 tabs prochlorperazine maleate 10 mg 10 mg PO Q6HR PRN nausea and 05/30/24 09/03/24 tablet (Compazine) vomiting #30 tabs naloxone 4 mg/actuation nasal spray 4 mg intranasal Q2-3M PRN opioid 08/22/24 09/03/24 overdose #2 ea oxycodone-acetaminophen 5 mg-325 1 tab PO Q8HR PRN pain 30 days #90 08/23/24 09/03/24 mg tablet tabs Is patient having pain?: [facility] History (Updated 09/05/24 @ 11:08 by Kimberly Carnes CMA) Osteopenia Encounter for screening for osteoporosis Breast cancer, left Hypertension Surgical History History of knee surgery bilateral History of lumpectomy of left breast History of cholecystectomy History of appendectomy History of hysterectomy History of foot surgery multiple bilateral Family History Family/Other Breast cancer Social History Smoking Status: Former smoker Tobacco Type: cigarettes Substance Use Type: Marijuana Substance Abuse Comment: cassie marijuana - 06/03/2024 [place] Symptom Assessment Scale Pain: left leg pain, Percocet helping pain quite a bit Nausea/Vomiting: nausea controlled using Zofran and Compazine once daily worse with increased pain Anorexia: good appetite / plans on starting Boost today Dyspnea: cough mildly improved /SOB with activity Constipation/Diarrhea: stable with diet modifications Drowsiness: denies Fatigue: increased fatigue/ rests when needed Insomnia: stable / awakens for restroom and returns to sleep Depression/Mood: admits to being bitchy at times Anxiety: moderate / increases when pain is worse Exam Exam General - A&O, accompanied by friend/daughter HEENT - EOM intact, oral mucosa pink/moist Lungs - harsh, wheezy cough, normal respiratory effort Abdomen - soft, non-tender, + BS Extremities - normal ROM, no edema Psychiatric - pleasant, cooperative, normal mood/affect Assessment & Plan Assessment & Plan (1) Cancer associated pain: Plan: Alannah reports increased severity of peripheral neuropathy, chiefly in the left lower leg and foot. Has been on current dose of gabapentin 300 mg BID for a long time and is agreeable to titrating to improve pain control. OARRS reviewed, consistent with Rx. MME 22.5 mg/day. Opioid informed consent andagreement reviewed and signed today. 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 Receiving cycle 4 AC chemotherapy which will be followed by taxol and completed with adjuvant radiation therapy Attestation: The above note written by Kimberly Carnes MA acting as human recorder, note dictated by Elda Hurtado APRN, [employer]-C Dictated By: Elda Hurtado APRN DD/ [id number] Signed By: 09/06/24 1840 [facility] [place]12-31-2024 Evaluation note* Diagnosis Onset Date Resolution Status Admit Date Breast cancer, left acuteDecember 2023 1:28pmOsteopeniainactiveDecember 2023 1:28pm Breast cancer, leftacuteJanuary 2024 8:46amCancer associated painacute September 05, 2024 8:46amNauseaacuteJanuary 2024 8:46amBreast cancer, left acuteJanuary 2024 11:17amOsteopeniainactiveJanuary 2024 11:17am Breast cancer, leftacuteJanuary 2024 2:47pmAcute anemiainactiveJanuary 2024 2:47pmBacteremia due to Streptococcus pneumoniaeinactiveJanuary 2024 2:47pmImmunosuppressed due to chemotherapyinactiveJanuary 2024 2:47pm OsteopeniainactiveJanuary 2024 2:47pmPancytopeniainactiveJanuary 2024 2:47pmPneumoniainactiveJanuary 2024 2:47pmUTI (urinary tract infection)inactiveSepuary 2024 2:47pmBreast cancer, leftacuteJanuary 2024 2:48pmOsteopeniainactiveJanuary 2024 2:48pmBreast cancer, leftacute October 16, 2024 9:46amOsteopeniainactiveFebruary 2024 9:46am Necrotizing pneumoniaacuteFebruary 2024 1:34pmBacteremia due to Streptococcus pneumoniaeinactiveFebruary 2024 1:34pmPneumoniainactive October 17, 2024 1:34pmAdjustment disorder with mixed anxiety and depressed moodacuteFebruary 2024 2:04pmBreast cancer, leftacuteFebruary 2024 2:04pmCancer associated painacuteFebruary 2024 2:04pmNeuropathyacute October 17, 2024 2:04pmBreast cancer, leftacuteFebruary 2024 7:45am Cancer associated painacuteFebruary 2024 7:45amNeuropathyacuteFebruary 2024 7:45amBreast cancer, leftacuteFebruary 2024 9:58amOsteopenia inactiveFebruary 2024 9:58amBreast cancer, leftacuteMarch 2024 7:52amCancer associated painacuteMarch 2024 7:52amConstipationacuteMarch 2024 7:52amNeuropathyacuteMarch 2024 7:52am [facility] Work Phone: 1(757) 741-387912-18-2024 Evaluation note* Diagnosis Onset Date Resolution Status Admit Date Breast cancer, left acuteDecember 2023 3:02pmOsteopeniainactiveDece2023 3:02pm Breast cancer, leftacuteDecember 2023 2:54pmCancer associated painacute August 22, 2024 2:54pmEncounter for palliative careacutece2023 2:54pmBreast cancer, leftacuteDecember 2023 1:28pmOsteopeniainactive September 03, 2024 1:28pmBreast cancer, leftacuteJanuary 2024 8:46amCancer associated painacuteJanuary 2024 8:46amNauseaacuteJanuary 2024 8:46am Breast cancer, leftacuteJanuary 2024 11:17amOsteopeniainactiveJanuary 2024 11:17amBreast cancer, leftacuteJanuary 2024 2:47pmAcute anemia inactiveSepuary 2024 2:47pmBacteremia due to Streptococcus pneumoniae inactiveJanuary 2024 2:47pmImmunosuppressed due to chemotherapyinactive September 17, 2024 2:47pmOsteopeniainactiveJanuary 2024 2:47pmPancytopenia inactiveSepuary 2024 2:47pmPneumoniainactiveJanuary 2024 2:47pmUTI (urinary tract infection)inactiveJanuary 2024 2:47pmBreast cancer, left acuteJanuary 2024 2:48pmOsteopeniainactiveJanuary 2024 2:48pmBreast cancer, leftacuteFebruary 2024 9:46amOsteopeniainactiveFebruary 2024 9:46amNecrotizing pneumoniaacuteFebruary 2024 1:34pmBacteremia due to Streptococcus pneumoniaeinactiveFebruary 2024 1:34pmPneumoniainactive October 17, 2024 1:34pmAdjustment disorder with mixed anxiety and depressed moodacuteFebruary 2024 2:04pmBreast cancer, leftacuteFebruary 2024 2:04pmCancer associated painacuteFebruary 2024 2:04pmNeuropathyacute October 17, 2024 2:04pmBreast cancer, leftacuteFebruary 2024 7:45am Cancer associated painacuteFebruary 2024 7:45amNeuropathyacuteFebruary 2024 7:45amBreast cancer, leftacuteFebruary 2024 9:58amOsteopenia inactiveFebruary 2024 9:58am [facility] Work Phone: 1(534) 592-534712-03-2024 NotePatient Education Cardiovascular Hypertension, Adult High blood pressure (hypertension) is when the force of blood pumping through the arteries is too strong. The arteries are the blood vessels that carry blood from the heart throughout the body. Hypertension forces the heart to work harder to pump blood and may cause arteries to become narrow or stiff. Untreated or uncontrolled hypertension can lead to a heart attack, heart failure, a stroke, kidney disease, and other problems. A blood pressure reading consists of a higher number over a lower number. Ideally, your blood pressure should be below 120/80. The first ( top ) number is called the systolic pressure. It is a measure of the pressure in your arteries as your heart beats. The second ( bottom ) number is called the diastolic pressure. It is a measure of the pressure in your arteries as the heart relaxes. What are the causes? The exact cause of this condition is not known. There are some conditions that result in high bloodpressure. What increases the risk? Certain factors may make you more likely to develop high blood pressure. Some of these risk factorsare under your control, including: ??? Smoking. ??? Not getting enough exercise or physical activity. ??? Being overweight. ??? Having too much fat, sugar, calories, or salt (sodium) in your diet. ??? Drinking too much alcohol. Other risk factors include: ??? Having a personal history of heart disease, diabetes, high cholesterol, or kidney disease. ??? Stress. ??? Having a family history of high blood pressure and high cholesterol. ??? Having obstructive sleep apnea. ??? Age. The risk increases with age. What are the signs or symptoms? High blood pressure may not cause symptoms. Very high blood pressure (hypertensive crisis) may cause: ??? Headache. ??? Fast or irregular heartbeats (palpitations). ??? Shortness of breath. ??? Nosebleed. ??? Nausea and vomiting. ??? Vision changes. ??? Severe chest pain, dizziness, and seizures. How is this diagnosed? This condition is diagnosed by measuring your blood pressure while you are seated, with your arm resting on a flat surface, your legs uncrossed, and your feet flat on the floor. The cuff of the bloodpressure monitor will be placed directly against the skin of your upper arm at the level of your heart. Blood pressure should be measured at least twice using the same arm. Certain conditions can cause a difference in blood pressure between your right and left arms. If you have a high blood pressure reading during one visit or you have normal blood pressure with other risk factors, you may be asked to: ??? Return on a different day to have your blood pressure checked again. ??? Monitor your blood pressure at home for 1 week or longer. If you are diagnosed with hypertension, you may have other blood or imaging tests to help your health care provider understand your overall risk for other conditions. How is this treated? This condition is treated by making healthy lifestyle changes, such as eating healthy foods, exercising more, and reducing your alcohol intake. You may be referred for counseling on a healthy diet and physical activity. Your health care provider may prescribe medicine if lifestyle changes are not enough to get your blood pressure under control and if: ??? Your systolic blood pressure is above 130. ??? Your diastolic blood pressure is above 80. Your personal target blood pressure may vary depending on your medical conditions, your age, and other factors. Follow these instructions at home: Eating and drinking ??? Eat a diet that is high in fiber and potassium, and low in sodium, added sugar, and fat. An example of this eating plan is called the DASH diet. DASH stands for Dietary Approaches to Stop Hypertension. To eat this way: ? Eat plenty of fresh fruits and vegetables. Try to fill one half of your plate at each meal with fruits and vegetables. ? Eat whole grains, such as whole-wheat pasta, brown rice, or whole-grain bread. Fill about one fourth of your plate with whole grains. ? Eat or drink low-fat dairy products, such as skim milk or low-fat yogurt. ? Avoid fatty cuts of meat, processed or cured meats, and poultry with skin. Fill about one fourth of your plate with lean proteins, such as fish, chicken without skin, beans, eggs, or tofu. ? Avoid pre-made and processed foods. These tend to be higher in sodium, added sugar, and fat. ??? Reduce your daily sodium intake. Many people with hypertension should eat less than 1,500 mg ofsodium a day. ??? Do not drink alcohol if: ? Your health care provider tells you not to drink. ? You are , may be , or are planning to become . ??? If you drink alcohol: ? Limit how much you have to: ? 0?1 drink a day for women. ? 0?2 drinks a day for men. ? Know how much alcohol is in your drink. In the [place] one drink equals one 12 oz bottle (more content not included)...[facility]11-27-2024 Evaluation note* Diagnosis Onset Date Resolution Status Admit Date Breast cancer, left acuteNovember 2023 2:07pmEncounter for screening for osteoporosisacute July 31, 2024 2:07pmBreast cancer, leftacuteDecember 2023 3:02pm OsteopeniaacuteDecember 2023 3:02pmBreast cancer, leftacuteDecember 2023 2:54pmCancer associated painacuteDecember 2023 2:54pmEncounter for palliative careacuteDecember 2023 2:54pmBreast cancer, leftacuteJanuary 2024 8:46amCancer associated painacuteJanuary 2024 8:46amNauseaacute September 05, 2024 8:46am [facility] Work Phone: 1(553) 650-987411-27-2024 Evaluation note* Diagnosis Onset Date Resolution Status Admit Date Breast cancer, left acuteNovember 2023 2:07pmEncounter for screening for osteoporosisacute July 31, 2024 2:07pmBreast cancer, leftacuteDecember 2023 3:02pm OsteopeniaacuteDecember 2023 3:02pmBreast cancer, leftacuteDecember 2023 2:54pmCancer associated painacuteDecember 2023 2:54pmEncounter for palliative careacuteDecember 2023 2:54pmBreast cancer, leftacuteDecember 2023 1:28pmOsteopeniaacuteDecember 2023 1:28pmBreast cancer, left acuteJanuary 2024 8:46amCancer associated painacuteJanuary 2024 8:46am NauseaacuteJanuary 2024 8:46amBreast cancer, leftacuteJanuary 2024 11:17amOsteopeniaacuteJanuary 2024 11:17am [facility] Work Phone: 1(111) 973-189511-27-2024 Evaluation note* Diagnosis Onset Date Resolution Status Admit Date Breast cancer, left acuteNovember 2023 2:07pmEncounter for screening for osteoporosisacute July 31, 2024 2:07pmBreast cancer, leftacuteDecember 2023 3:02pm OsteopeniaacuteDecember 2023 3:02pmBreast cancer, leftacuteDecember 2023 2:54pmCancer associated painacuteDecember 2023 2:54pmEncounter for palliative careacuteDecember 2023 2:54pmBreast cancer, leftacuteDecember 2023 1:28pmOsteopeniaacuteDecember 2023 1:28pmBreast cancer, left acuteJanuary 2024 8:46amCancer associated painacuteJanuary 2024 8:46am NauseaacuteJanuary 2024 8:46amBreast cancer, leftacuteJanuary 2024 11:17amOsteopeniaacuteJanuary 2024 11:17amAcute anemiaacuteJanuary 2024 2:47pmBreast cancer, leftacuteJanuary 2024 2:47pmPancytopeniaacute September 17, 2024 2:47pmPneumoniaacuteJanuary 2024 2:47pmUTI (urinary tract infection)acuteJanuary 2024 2:47pm [facility] Work Phone: 1(199) 222-218111-27-2024 Evaluation note* Diagnosis Onset Date Resolution Status Admit Date Breast cancer, left acuteNovember 2023 2:07pmEncounter for screening for osteoporosisacute July 31, 2024 2:07pmBreast cancer, leftacuteDecember 2023 3:02pm OsteopeniaacuteDecember 2023 3:02pmBreast cancer, leftacuteDecember 2023 2:54pmCancer associated painacuteDecember 2023 2:54pmEncounter for palliative careacutecember 2023 2:54pmBreast cancer, leftacuteDecember 2023 1:28pmOsteopeniaacuteDecember 2023 1:28pmBreast cancer, left acuteJanuary 2024 8:46amCancer associated painacuteJanuary 2024 8:46am NauseaacuteJanuary 2024 8:46amBreast cancer, leftacuteJanuary 2024 11:17amOsteopeniaacuteJanuary 2024 11:17amAcute anemiaacuteJanuary 2024 2:47pmBacteremia due to Streptococcus pneumoniaeacuteJanuary 2024 2:47pmBreast cancer, leftacuteJanuary 2024 2:47pmImmunosuppressed due to chemotherapyacuteJanuary 2024 2:47pmOsteopeniaacuteJanuary 2024 2:47pmPancytopeniaacuteJanuary 2024 2:47pmPneumoniaacuteJanuary 2024 2:47pmUTI (urinary tract infection)acuteJanuary 2024 2:47pm [facility] Work Phone: 1(793) 857-680411-27-2024 Evaluation note* Diagnosis Onset Date Resolution Status Admit Date Encounter for screening for osteoporosis acuteNov2023 2:07pmBreast cancer, leftinactiveNovember 2023 2:07pmBreast cancer, leftinactiveDecember 2023 3:02pmOsteopeniainactive August 21, 2024 3:02pmCancer associated painacuteceer 2023 2:54pm Encounter for palliative careacutece2023 2:54pmBreast cancer, left inactiveDecember 2023 2:54pmBreast cancer, leftinactiveDecember 2023 1:28pmOsteopeniainactiveDecember 2023 1:28pmCancer associated painacute September 05, 2024 8:46amNauseaacuteJanuary 2024 8:46amBreast cancer, left inactiveJanuary 2024 8:46amBreast cancer, leftinactiveJanuary 2024 11:17amOsteopeniainactiveJanuary 2024 11:17amAcute anemiainactiveJanuary 2024 2:47pmBacteremia due to Streptococcus pneumoniaeinactiveSepuary 2024 2:47pmBreast cancer, leftinactiveJanuary 2024 2:47pmImmunosuppressed due to chemotherapyinactiveJanuary 2024 2:47pmOsteopeniainactiveJanuary 2024 2:47pmPancytopeniainactiveJanuary 2024 2:47pmPneumoniainactive September 17, 2024 2:47pmUTI (urinary tract infection)inactiveJanuary 2024 2:47pmBreast cancer, leftinactiveJanuary 2024 2:48pmOsteopeniainactive October 03, 2024 2:48pm [facility] Work Phone: 1(245) 155-528111-27-2024 Evaluation note* Diagnosis Onset Date Resolution Status Admit Date Encounter for screening for osteoporosis acuteJulember 2023 2:07pmBreast cancer, leftinactiveNovember 2023 2:07pmBreast cancer, leftinactiveDecember 2023 3:02pmOsteopeniainactive August 21, 2024 3:02pmCancer associated painacuteDecember 2023 2:54pm Encounter for palliative careacuteDecember 2023 2:54pmBreast cancer, left inactiveDecember 2023 2:54pmBreast cancer, leftinactiveDecember 2023 1:28pmOsteopeniainactiveDecember 2023 1:28pmCancer associated painacute September 05, 2024 8:46amNauseaacuteJanuary 2024 8:46amBreast cancer, left inactiveSepuary 2024 8:46amBreast cancer, leftinactiveJanuary 2024 11:17amOsteopeniainactiveJanuary 2024 11:17amAcute anemiainactiveJanuary 2024 2:47pmBacteremia due to Streptococcus pneumoniaeinactiveSepuary 2024 2:47pmBreast cancer, leftinactiveJanuary 2024 2:47pmImmunosuppressed due to chemotherapyinactiveJanuary 2024 2:47pmOsteopeniainactiveJanuary 2024 2:47pmPancytopeniainactiveJanuary 2024 2:47pmPneumoniainactive September 17, 2024 2:47pmUTI (urinary tract infection)inactiveSepuary 2024 2:47pmBreast cancer, leftinactiveJanuary 2024 2:48pmOsteopeniainactive October 03, 2024 2:48pmBreast cancer, leftinactiveFebruary 2024 9:46am OsteopeniainactiveFebruary 2024 9:46am [facility] Work Phone: 1(530) 987-162811-27-2024 Evaluation note* Diagnosis Onset Date Resolution Status Admit Date Encounter for screening for osteoporosis acuteNovember 2023 2:07pmBreast cancer, leftinactiveNovember 2023 2:07pmBreast cancer, leftinactiveDecember 2023 3:02pmOsteopeniainactive August 21, 2024 3:02pmCancer associated painacuteDecember 2023 2:54pm Encounter for palliative careacuteDecember 2023 2:54pmBreast cancer, left inactiveDecember 2023 2:54pmBreast cancer, leftinactiveDecember 2023 1:28pmOsteopeniainactiveDecember 2023 1:28pmCancer associated painacute September 05, 2024 8:46amNauseaacuteJanuary 2024 8:46amBreast cancer, left inactiveSepuary 2024 8:46amBreast cancer, leftinactiveJanuary 2024 11:17amOsteopeniainactiveJanuary 2024 11:17amAcute anemiainactiveSepuary 2024 2:47pmBacteremia due to Streptococcus pneumoniaeinactiveSepuary 2024 2:47pmBreast cancer, leftinactiveJanuary 2024 2:47pmImmunosuppressed due to chemotherapyinactiveSepuary 2024 2:47pmOsteopeniainactiveJanuary 2024 2:47pmPancytopeniainactiveJanuary 2024 2:47pmPneumoniainactive September 17, 2024 2:47pmUTI (urinary tract infection)inactiveSepuary 2024 2:47pmBreast cancer, leftinactiveJanuary 2024 2:48pmOsteopeniainactive October 03, 2024 2:48pmBreast cancer, leftinactiveFebruary 2024 9:46am OsteopeniainactiveFebruary 2024 9:46amNecrotizing pneumoniaacuteFebruary 2024 1:34pmBacteremia due to Streptococcus pneumoniaeinactiveFebruary 2024 1:34pmPneumoniainactiveFebruary 2024 1:34pm [facility] Work Phone: 1(808) 105-564411-27-2024 Evaluation note* Diagnosis Onset Date Resolution Status Admit Date Encounter for screening for osteoporosis acuteJuly 31, 2024 2:07pmBreast cancer, leftinactiveNovember 2023 2:07pmBreast cancer, leftinactiveDecember 2023 3:02pmOsteopeniainactive August 21, 2024 3:02pmCancer associated painacuteDecember 2023 2:54pm Encounter for palliative careacuteDecember 2023 2:54pmBreast cancer, left inactiveDecember 2023 2:54pmBreast cancer, leftinactiveDecember 2023 1:28pmOsteopeniainactiveDecember 2023 1:28pmCancer associated painacute September 05, 2024 8:46amNauseaacuteJanuary 2024 8:46amBreast cancer, left inactiveJanuary 2024 8:46amBreast cancer, leftinactiveJanuary 2024 11:17amOsteopeniainactiveJanuary 2024 11:17amAcute anemiainactiveJanuary 2024 2:47pmBacteremia due to Streptococcus pneumoniaeinactiveJanuary 2024 2:47pmBreast cancer, leftinactiveJanuary 2024 2:47pmImmunosuppressed due to chemotherapyinactiveJanuary 2024 2:47pmOsteopeniainactiveJanuary 2024 2:47pmPancytopeniainactiveJanuary 2024 2:47pmPneumoniainactive September 17, 2024 2:47pmUTI (urinary tract infection)inactiveSepuary 2024 2:47pmBreast cancer, leftinactiveJanuary 2024 2:48pmOsteopeniainactive October 03, 2024 2:48pmBreast cancer, leftinactiveFebruary 2024 9:46am OsteopeniainactiveFebruary 2024 9:46amNecrotizing pneumoniaacuteFebruary 2024 1:34pmBacteremia due to Streptococcus pneumoniaeinactiveFebruary 2024 1:34pmPneumoniainactiveFebruary 2024 1:34pmAdjustment disorder with mixed anxiety and depressed moodacuteFebruary 2024 2:04pmCancer associated painacuteFebruary 2024 2:04pmNeuropathyacuteFebruary 2024 2:04pm [facility] Work Phone: 1(240) 576-606711-18-2024 Evaluation + Plan noteExtracted from:Title: ANES Post-operative Note---GeneralAuthor:Billy Echols MDDate:07/22/24 Plan Transfer/Discharge: Transfer/Discharge Discharge when meets criteria ( To home ). Extracted from:Title:ANES Pre-operative Note uthor:Billy Echols MDDate: 07/22/24 Plan [place] [employer] (ASA) physical status classification: Class III. Anesthetic Preoperative Plan: Anesthesia General. Future Appointments Appointment Date:08/06/2024 01:15:00 PM Scheduled Provider:Michael Holley MD Location:[facility] Appointment Type: Open Appointment Date:06/16/2025 01:00:00 PM Scheduled Provider: Location:[facility] Appointment Type: Medicare Wellness Subsequent Future Scheduled Tests Laboratory* Lipid Panel 09/07/23 Radiology* MA Mamm Diag w/CAD if perf and 3D Manny 09/20/23 [facility] 11-18-2024 Hospital Discharge instructions Patient Education 07/22/2024 09:35:31 Implanted Port Insertion, Care After Implanted Port Insertion, Care After The following information offers guidance on how to care for yourself after your procedure. Your health care provider may also give you more specific instructions. If you have problems or questions, contact your health care provider. What can I expect after the procedure? After the procedure, it is common to have: Discomfort at the port insertion site. Bruising on the skin over the port. This should improve over 3 4 days. Follow these instructions at home: Port care After your port is placed, you will get a deck molder's information card. The card has informationabout your port. Keep this card with you at all times. Take care of the port as told by your health care provider. Ask your health care provider if you ora family member can get training for taking care of the port at home. ?A home health care nurse will be be available to help care for the port. Make sure to remember what type of port you have. Incision care Follow instructions from your health care provider about how to take care of your port insertion site. Make sure you: ?Wash your hands with soap and water for at least 20 seconds before and after you change your bandage (dressing). If soap and water are not available, use hand nurse's assistant. ?Change your dressing as told by your health care provider. ?Leave stitches (sutures), skin glue, or adhesive strips in place. These skin closures may need to stay in place for 2 weeks or longer. If adhesive strip edges start to loosen and curl up, you may trim the loose edges. Do not remove adhesive strips completely unless your health care provider tells you to do that. Check your port insertion site every day for signs of infection. Check for: ?Redness, swelling, or pain. ?Fluid or blood. ?Warmth. ?Pus or a bad smell. Activity Return to your normal activities as told by your health care provider. Ask your health care provider what activities are safe for you. You may have to avoid lifting. Ask your health care provider how much you can safely lift. General instructions Take [id number] and prescription medicines only as told by your health care provider. Do not take baths, swim, or use a hot tub until your health care provider approves. Ask your healthcare provider if you may take showers. You may only be allowed to take sponge baths. If you were given a sedative during the procedure, it can affect you for several hours. Do not drive or operate machinery until your health care provider says that it is safe. Wear a medical alert bracelet in case of an emergency. This will tell any health care providers that you have a port. Keep all follow-up visits. This is important. Contact a health care provider if: You cannot flush your port with saline as directed, or you cannot draw blood from the port. You have a fever or chills. You have redness, swelling, or pain around your port insertion site. You have fluid or blood coming from your port insertion site. Your port insertion site feels warm to the touch. You have pus or a bad smell coming from the port insertion site. Get help right away if: You have chest pain or shortness of breath. You have bleeding from your port that you cannot control. These symptoms may be an emergency. Get help right away. Call 911. Do not wait to see if the symptoms will go away. Do not drive yourself to the hospital. Summary Take care of the port as told by your health care provider. Keep the deck molder's information card with you at all times. Change your dressing as told by your health care provider. Contact a health care provider if you have a fever or chills or if you have redness, swelling, or pain around your port insertion site. Keep all follow-up visits. This information is not intended to replace advice given to you by your health care provider. Make sure you discuss any questions you have with your health care provider. Document Revised: 02/22/2022 Document Reviewed: 02/22/2022 [employer] Patient Education 2023 [employer]. 07/22/2024 09:35:24 Post Op Patient Instructions - FT (Custom) (CUSTOM) Follow Up Care 06/18/2024 09:17:26 With:Roshan BRAUN Address: [address] [place] [address], [address] [place] [id number] Business (1) When:7 to 10 days [facility] 11-18-2024 NoteProgress Note-Physician Patient: ADELINA MIR Age: 63 years Sex: Female : 1960 Associated Diagnoses: None Author: Billy Echols MD Postoperative Information Postoperative disposition: Postoperative disposition: To PACU. Manasaetrix number: Optimetrix number [id number]. Anesthetic utilized: General. Health Status Allergies: Allergic Reactions (Selected) Moderate Entex- Unknown. Skelaxin- Unknown. Severity Not Documented Corticosteroids- Anaphylaxis. Physical Examination Vital Signs 07/22/2024 9:26 EST Heart Rate Monitored 70 bpm SpO2 96 % 07/22/2024 9:24 EST Respiratory Rate 16 br/min 07/22/2024 9:24 EST Temperature Axillary 36.3 DegC 07/22/2024 9:24 EST Systolic Blood Pressure 170 mmHg HI Diastolic Blood Pressure 74 mmHg Blood Pressure Location Right arm Mean Arterial Pressure, Monitered 106 mmHg Pain Assessment: Controlled. General: Awake, Appropriate. Respiratory: Adequate air exchange. Cardiovascular: Stable. Neurological Assessment Anesthetic outcome No anesthetic complications noted. Adequate pain relief. Review / Management Condition: Stable. Plan Transfer/Discharge: Transfer/Discharge Discharge when meets criteria ( To home ).[facility] HospitalComment on above:Result Comment: Electronically Signed By: Billy Echols MD\.br\Date and Time Signed: 07/22/24 10:00 EST 07-22-2024 NotePatient Education - Text Infectious Disease Implanted Port Insertion, Care After The following information offers guidance on how to care for yourself after your procedure. Your health care provider may also give you more specific instructions. If you have problems or questions, contact your health care provider. What can I expect after the procedure? After the procedure, it is common to have: ??? Discomfort at the port insertion site. ??? Bruising on the skin over the port. This should improve over 3?4 days. Follow these instructions at home: Port care ??? After your port is placed, you will get a deck molder's information card. The card has information about your port. Keep this card with you at all times. ??? Take care of the port as told by your health care provider. Ask your health care provider if you or a family member can get training for taking care of the port at home. ? A home health care nurse will be be available to help care for the port. ??? Make sure to remember what type of port you have. Incision care ??? Follow instructions from your health care provider about how to take care of your port insertion site. Make sure you: ? Wash your hands with soap and water for at least 20 seconds before and after you change your bandage (dressing). If soap and water are not available, use hand nurse's assistant. ? Change your dressing as told by your health care provider. ? Leave stitches (sutures), skin glue, or adhesive strips in place. These skin closures may need tostay in place for 2 weeks or longer. If adhesive strip edges start to loosen and curl up, you may trim the loose edges. Do not remove adhesive strips completely unless your health care provider tellsyou to do that. ??? Check your port insertion site every day for signs of infection. Check for: ? Redness, swelling, or pain. ? Fluid or blood. ? Warmth. ? Pus or a bad smell. Activity ??? Return to your normal activities as told by your health care provider. Ask your health care provider what activities are safe for you. ??? You may have to avoid lifting. Ask your health care provider how much you can safely lift. General instructions ??? Take qwag-wfy-jnjfwil and prescription medicines only as told by your health care provider. ??? Do not take baths, swim, or use a hot tub until your health care provider approves. Ask your health care provider if you may take showers. You may only be allowed to take sponge baths. ??? If you were given a sedative during the procedure, it can affect you for several hours. Do not drive or operate machinery until your health care provider says that it is safe. ??? Wear a medical alert bracelet in case of an emergency. This will tell any health care providersthat you have a port. ??? Keep all follow-up visits. This is important. Contact a health care provider if: ??? You cannot flush your port with saline as directed, or you cannot draw blood from the port. ??? You have a fever or chills. ??? You have redness, swelling, or pain around your port insertion site. ??? You have fluid or blood coming from your port insertion site. ??? Your port insertion site feels warm to the touch. ??? You have pus or a bad smell coming from the port insertion site. Get help right away if: ??? You have chest pain or shortness of breath. ??? You have bleeding from your port that you cannot control. These symptoms may be an emergency. Get help right away. Call 911. ??? Do not wait to see if the symptoms will go away. ??? Do not drive yourself to the hospital. Summary ??? Take care of the port as told by your health care provider. Keep the deck molder's informationcard with you at all times. ??? Change your dressing as told by your health care provider. ??? Contact a health care provider if you have a fever or chills or if you have redness, swelling, or pain around your port insertion site. ??? Keep all follow-up visits. This information is not intended to replace advice given to you by your health care provider. Make sure you discuss any questions you have with your health care provider. Document Revised: 02/22/2022 Document Reviewed: 02/22/2022 [employer] Patient Education ? 2023 [employer].[facility] 07-22-[facility] NoteHistory and Physical Patient: ADELINA MIR Age: 63 years Sex: Female : 1960 Associated Diagnoses: None Author: Roshan BRAUN MD Subjective no changes to H & PFOhioHealth Berger HospitalComment on above:Result Comment: Electronically Signed By: Roshan BRAUN MD\.br\Date and Time Signed: 07/22/24 07:30 [id number] NoteProgress Note-Physician Patient: ADELINA MIR Age: 63 years Sex: Female : 1960 Associated Diagnoses: None Author: Billy Echols MD Preoperative Information Anesthesia Preop Info: Time patient last ate or drank 07/22/2024 00:00:00. Anesthesia history: Patient history: None. Family history+: None. Informed consent: Signed by patient. Re-evaluation prior to induction: Initial evaluation reviewed: No significant change. Review of Systems Eye: Negative except as documented in history of present illness. Ear/Nose/Mouth/Throat: Negative except as documented in history of present illness. Respiratory: Cough, resolving sinusitis, No shortness of breath. Cardiovascular: Negative, No chest pain. Gastrointestinal: No heartburn. Musculoskeletal Neurologic Health Status Allergies: Allergic Reactions (Selected) Moderate Entex- Unknown. Skelaxin- Unknown. Severity Not Documented Corticosteroids- Anaphylaxis., Allergies (3) Active Severity Reaction Skelaxin Moderate Unknown Entex Moderate Unknown corticosteroids Anaphylaxis Current medications: (Selected) Inpatient Medications Ordered HYDROmorphone 1 mg/mL injectable solution: 0.4 mg = 0.4 mL, Injection, IV Push, q4min PRN Pain for 5 dose(s), Stop date Limited # of times, Routine, Start date 07/22/24 7:10:00 EST, 07/22/24 7:10:00 EST Lactated Ringers IV Monica 1000 mL 1,000 mL: 1,000 mL, IV, 100 mL/hr, Routine, Start date 07/22/24 7:10:00 EST, 10 hour(s), Total volume (mL): 1,000, 67 kg, 1.76, m2 Sodium Chloride 0.9% IV Monica 1000 mL 1,000 mL: 1,000 mL, IV, 150 mL/hr, Routine, Start date 246:00:00 EST, 6.7 hour(s), Total volume (mL): 1,000, 67 kg, 1.76, m2 cefazolin additive + Sodium Chloride 0.9% intravenous solution 50 mL: 2 gram = 1 EA, Powder-Inj, IVPiggyback, Once, Stop date 07/22/24 8:00:00 EST, Routine, Start date 07/22/24 8:00:00 EST, 100 mL/hr, Infuse over 30 minute(s), preop promethazine additive 12.5 mg + Sodium Chloride 0.9% IV Monica 50 mL (INT) 50 mL: IV Piggyback, Once PRN Nausea/Vomiting, Routine, Start date 07/22/24 7:10:00 EST, 151.5 mL/hr, Infuse over 20 minute(s),07/22/24 7:10:00 EST Prescriptions Prescribed Hyzaar 12.5 mg-50 mg Tab: 1 tab(s), Oral, Daily, 90 tab(s), Refill(s) 3, [facility], 170, cm, 02/27/24 13:53:00 EDT, Height/Length Dosing, 66.7, kg, 02/27/24 13:53:00 EDT, Weight Dosing alprazolam 0.25 mg Tab: See Instructions, 1 tab tid prn, # 90 tab(s), Refills(s) 0, Pharmacy: [facility], 170, cm, 06/11/24 14:49:00 EDT, Height/Length Dosing, 67.7, kg, 06/11/24 14:49:00 EDT, Weight Dosing cyclobenzaprine 10 mg Tab: 10 mg = 1 tab(s), Oral, Bedtime, PRN for spasm, # 90 tab(s), Refills(s) 3, Pharmacy: [facility], 170.2, cm, 07/24/23 13:54:00 EST, Height/Length Dosing, 70.1, kg,07/24/23 13:54:00 EST, Weight Dosing gabapentin 300 mg Cap: 300 mg = 1 cap(s), Oral, TID, # 30 cap(s), Refills(s) 0, [facility], 170, cm, 05/16/24 8:11:00 EDT, Height/Length Dosing, 67.9, kg, 05/16/24 8:11:00 EDT, Weight Dosing Documented Medications Documented Misc Medication: See Instructions, balance of nature-3 tabs a day aspirin 81 mg Oral EC Tab: 81 mg = 1 tab(s), Oral, Daily, Refills(s) 0, Prophylaxis, Home Medications (6) Active alprazolam 0.25 mg Tab See Instructions aspirin 81 mg Oral EC Tab 81 mg = 1 tab(s), Oral, Daily cyclobenzaprine 10 mg Tab 10 mg = 1 tab(s), PRN, Oral, Bedtime gabapentin 300 mg Cap 300 mg = 1 cap(s), Oral, TID Hyzaar 12.5 mg-50 mg Tab 1 tab(s), Oral, Daily Misc Medication See Instructions , Medications (5) Active Scheduled: (1) ceFAZolin + Sodium Chloride 0.9% Minibag 50 mL 2 gram 1 EA, IV Piggyback, Once Continuous: (2) Lactated Ringers 1,000 mL 1,000 mL, IV, 100 mL/hr Sodium Chloride 0.9% 1,000 mL 1,000 mL, IV, 150 mL/hr PRN: (2) HYDROmorphone 1 mg/mL SOLN [F] 0.4 mg 0.4 mL, IV Push, q4min promethazine 12.5 mg + Sodium Chloride 0.9% 50 mL 12.5 mg 0.5 mL, IV Piggyback, Once Problem list: All Problems Abnormal EKG / SNOMED CT 4924424525 / Confirmed ADHD / SNOMED CT 9923761854 / Confirmed Anxiety / SNOMED CT 52985851 / Confirmed Breast cancer of lower-inner quadrant of left female breast / SNOMED CT 215168007 / Confirmed Complex regional pain syndrome of lower limb / SNOMED CT 4222236978 / Confirmed Dysuria / SNOMED CT 02777211 / Confirmed Essential tremor / SNOMED CT 7294942424 / Confirmed Generalized anxiety disorder / SNOMED CT 83792599 / Confirmed HTN (hypertension) / SNOMED CT 4535795800 / Confirmed Hx of osteoarthritis / SNOMED CT 509543344 / Confirmed Idiopathic polyneuropathy / SNOMED CT 01170630 / Confirmed 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 / SNOMED CT 399657842 / Confirmed Intradermal melanocytic nevus / SNOMED CT 811333565 / Confirmed Mass of left breast / SNOMED CT 6875596883 / Confirmed Neoplasm of uncertain behavior of skin of back / SNOMED CT 827691599 / Confirmed (more content not included)...[facility] HospitalComment on above:Result Comment: Electronically Signed By: Onesimo PRATT, Billy Locke\.br\Date and Time Signed: 07/22/24 07:14 [id number] NoteGeneral Surgery Office/Clinic Note Chief Complaint consultation for port placement HPI Staff 63 year old female presents on consultation from oncology to discuss port placement. History of Present Illness almost 7 weeks s/p left skin sparing mastectomy with sentinel lymph node biopsy, with immediate tissue litharge supervisor reconstruction, for T1cN1a invasive ductal carcinoma of left breast; complicated by postoperative wound infection, requiring removal of tissue litharge supervisor 27 days ago; patient requires port for chemotherapy. patient had chest ct 06/18/24, ordered by Oncology; it was done 1 week after drainremoval from left mastectomy site; demonstrated 6.5 x 3 cm fluid collection with air within it, possible residual from implant removal verses persistent abscess. patient off antibiotics, denies fevers, mild soreness of left chest, no drainage or skin changes. Review of Systems PHQ Score Initial Depression Screen Score: 0 SCORE ROS - Provider Constitutional: no fever, no sweats, no weight loss. Eyes: no glasses, no blurred vision, no visual loss. ENMT: no dentures, no hoarseness, no swallowing difficulties, no hearing loss, no ear infection(s),no nose bleeds. Cardiovascular: normal blood pressure, no [...] 16 BP: 120/76 HT: 67 in HT: 170 cm WT: 68 kg WT: 149.6 lb BMI: 23.53 HEENT: normal conjunctiva, sclera clear, no scleral icterus, EOM intact, PERRLA. oral mucosa moist without lesions Neck: trachea midline , no mass, symmetric, no thyromegaly or nodules. no adenopathy Respiratory: lungs CTA, respirations non labored. Cardiovascular: regular rate and rhythm, no murmur, , no pedal edema or varicosities. Chest (Breasts): left breast with dressing intact; no erythema or edema, no fluctuance or drainage,no crepitus. Gastrointestinal: soft, non distended, no tenderness, no [...] of lower-inner quadrant of left female breast) right ezdcpl-c-lgbg insertion under anesthesia, informed consent obtained. 2. Poor venous access (I87.8: Other specified disorders of veins) see # 1 3. 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 (T85.79XA: Infection and inflammatory reaction due to other internal prosthetic devices, implants and grafts, initial encounter) will defer to Dr Bustamante regarding residual infection verses seroma; normal wbc, afebrile; no skinchanges; would not want to place port if persistent infection due to risk of seeding port. Ordered: CBC w/ Auto Diff Follow-up No qualifying data available Problem List/Past Medical History Ongoing Abnormal EKG ADHD Anxiety Breast cancer of lower-inner quadrant of left female breast Complex regional pain syndrome of lower limb Dysuria Essential tremor Generalized anxiety disorder HTN (hypertension) Hx of osteoarthritis Idiopathic polyneuropathy 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 Intradermal melanocytic nevus Mass of left breast Neoplasm of uncertain behavior of skin of back Neoplasm of uncertain behavior of skin of face Poor venous access Postoperative pain Pre-op exam Scoliosis Historical BMI 23.0-23.9, adult Polyneuropathy RSD lower limb Procedure/Surgical History Mastectomy (05/16/2024), Excision of intradermal nevus (02/20/2024), Excision of breast mass (01/10/2024), Biopsy of breast (06/27/2023), Arthroscopy of kn (more content not included)...[facility]Comment on above:Result Comment: Electronically Signed By: Roshan BRAUN MD\Date and Time Signed: 07/02/24 20:01 [id number] NoteNurse Consultation Note Reason for Visit Pt is here for lab draw Assessment/Plan 1. HTN (hypertension) (I10: Essential (primary) hypertension) Medications alprazolam 0.25 mg Tab, See Instructions aspirin 81 mg Oral EC Tab, 81 mg= 1 tab(s), Oral, Daily cyclobenzaprine 10 mg Tab, 10 mg= 1 tab(s), Oral, Bedtime, PRN, 3 refills gabapentin 300 mg Cap, 300 mg= 1 cap(s), Oral, TID Hyzaar 12.5 mg-50 mg Tab, 1 tab(s), Oral, Daily, 3 refills Misc Medication, See Instructions sulfamethoxazole-trimethoprim 800 mg-160 mg Tab Allergies Entex (Unknown) Skelaxin (Unknown) corticosteroids (Anaphylaxis) Immunizations Vaccine Date Status Comments influenza virus vaccine, inactivated - Not Given Patient Refuses influenza virus vaccine, inactivated - Not Given Patient Refuses influenza virus vaccine, inactivated - Not Given Patient Refuses SARS-CoV-2 mRNA (tozinameran 5y-11y) vac - Not Given Postpone due to refusal [facility]10[facility] NotePatient Education Emergency Medicine Heart Attack A heart attack occurs when blood and oxygen supply to the heart is cut off. A heart attack can cause damage to the heart that cannot be fixed. A heart attack is also called a myocardial infarction, or ID. If you think you are having a heart attack, do not wait to see if the symptoms will go away. Get medical help right away. What are the causes? This condition may be caused by: ? A fatty substance (plaque) in the blood vessels (arteries). This can block the flow of blood to the heart. ? A blood clot in the blood vessels that go to the heart. The blood clot blocks blood flow. ? An abnormal heartbeat. ? Some diseases, such as problems in red blood cells (anemia)orproblems in breathing (respiratory failure). ? Tightening (spasm) of a blood vessel that cuts off blood to the heart. ? A tear in a blood vessel of the heart. Other causes may include: ? Using drugs such as cocaine or methamphetamine. ? Low blood pressure. What increases the risk? ? Aging. The risk gets higher as you get older. ? Having a personal or family history of chest pain, heart attack, stroke, or narrowing of the arteries in the legs, arms, head, or stomach (peripheral vascular disease). ? Having taken chemotherapy or immune-suppressing medicines. ? Being male. ? Being overweight or obese. ? Having any of these conditions: ? High blood pressure. ? High cholesterol. ? Diabetes. ? Making lifestyle choices such as: ? Drinking too much alcohol. ? Not getting regular exercise. ? Smoking. What are the signs or symptoms? ? Chest pain. It may feel like: ? Crushing or squeezing. ? Tightness, pressure, fullness, or heaviness. ? Pain in the arm, neck, jaw, back, or upper body. ? Heartburn. ? Upset stomach (indigestion). ? Shortness of breath. ? Feeling like you may vomit (nauseous). ? Cold sweats. ? Sudden light-headedness, dizziness, or passing out. ? Feeling tired. How is this treated? A heart attack must be treated as soon as possible. Treatment may include: ? Medicines to: ? Break up or dissolve blood clots. ? Thin your blood and help prevent blood clots. ? Treat blood pressure. ? Improve blood flow to the heart. ? Reduce pain. ? Reduce cholesterol. ? Procedures to widen a blocked artery and keep it open. ? Open heart surgery. ? Making your heart strong again (cardiac rehabilitation) through exercise, education, and counseling. Follow these instructions at home: Medicines ? Take fyso-pzh-jrpgzpz and prescription medicines only as told by your doctor. ? Do not take these medicines unless your doctor says it is okay: ? NSAIDs, such as ibuprofen, naproxen, or celecoxib. ? Any vitamins or supplements. ? Hormone replacement therapy that has estrogen with or without progestin. ? If you are taking blood thinners: ? Talk with your doctor before taking any medicines that have aspirin or NSAIDs, such as ibuprofen. ? Take medicines exactly as told. Take them at the same time each day. ? Avoid doing things that could hurt or bruise you. Take action to prevent falls. ? Wear an alert bracelet or carry a card that shows you are taking blood thinners. Lifestyle ? Do not smoke or use any products that contain nicotine or tobacco. If you need help quitting, askyour doctor. ? Avoid secondhand smoke. ? Exercise regularly. Ask your doctor about a cardiac rehab program. ? Eat heart-healthy foods. Your doctor will tell you what foods to eat. ? Stay at a healthy weight. ? Learn ways to lower your stress level. ? Do not use illegal drugs. Alcohol use ? Do not drink alcohol if: ? Your doctor tells you not to drink. ? You are , may be , or are planning to become . ? If you drink alcohol: ? Limit how much you have to: ? 0?1 drink a day for women. ? 0?2 drinks a day for men. ? Know how much alcohol is in your drink. In the [place] one drink equals one 12 oz bottle of beer (355 mL), one 5 oz glass of wine (148 mL), or one 1? oz glass of hard liquor (44 mL). General instructions ? Work with your doctor to treat other problems you may have, such as diabetes or high blood pressure. ? Get screened for depression. Get treatment if needed. ? Keep your vaccines up to date. Get the flu shot (influenza vaccine) every year. ? Keep all follow-up visits. Contact a doctor if: ? You feel very sad. ? You have trouble doing your daily activities. ? You get light-headed or dizzy. Get help right away if: ? You have sudden, unexplained discomfort in your chest, arms, back, neck, jaw, or upper body. ? You have shortness of breath. ? You have sudden sweating or clammy skin. ? You feel like you may vomit or you vomit. ? You feel tired or weak. ? You feel your heart beating fast. ? You feel your heart skipping beats. ? You (more content not included)...[facility] Note Patient Education Cardiovascular Hypertension, Adult High blood pressure (hypertension) is when the force of blood pumping through the arteries is too strong. The arteries are the blood vessels that carry blood from the heart throughout the body. Hypertension forces the heart to work harder to pump blood and may cause arteries to become narrow or stiff. Untreated or uncontrolled hypertension can lead to a heart attack, heart failure, a stroke, kidney disease, and other problems. A blood pressure reading consists of a higher number over a lower number. Ideally, your blood pressure should be below 120/80. The first ( top ) number is called the systolic pressure. It is a measure of the pressure in your arteries as your heart beats. The second ( bottom ) number is called the diastolic pressure. It is a measure of the pressure in your arteries as the heart relaxes. What are the causes? The exact cause of this condition is not known. There are some conditions that result in high bloodpressure. What increases the risk? Certain factors may make you more likely to develop high blood pressure. Some of these risk factorsare under your control, including: ? Smoking. ? Not getting enough exercise or physical activity. ? Being overweight. ? Having too much fat, sugar, calories, or salt (sodium) in your diet. ? Drinking too much alcohol. Other risk factors include: ? Having a personal history of heart disease, diabetes, high cholesterol, or kidney disease. ? Stress. ? Having a family history of high blood pressure and high cholesterol. ? Having obstructive sleep apnea. ? Age. The risk increases with age. What are the signs or symptoms? High blood pressure may not cause symptoms. Very high blood pressure (hypertensive crisis) may cause: ? Headache. ? Fast or irregular heartbeats (palpitations). ? Shortness of breath. ? Nosebleed. ? Nausea and vomiting. ? Vision changes. ? Severe chest pain, dizziness, and seizures. How is this diagnosed? This condition is diagnosed by measuring your blood pressure while you are seated, with your arm resting on a flat surface, your legs uncrossed, and your feet flat on the floor. The cuff of the bloodpressure monitor will be placed directly against the skin of your upper arm at the level of your heart. Blood pressure should be measured at least twice using the same arm. Certain conditions can cause a difference in blood pressure between your right and left arms. If you have a high blood pressure reading during one visit or you have normal blood pressure with other risk factors, you may be asked to: ? Return on a different day to have your blood pressure checked again. ? Monitor your blood pressure at home for 1 week or longer. If you are diagnosed with hypertension, you may have other blood or imaging tests to help your health care provider understand your overall risk for other conditions. How is this treated? This condition is treated by making healthy lifestyle changes, such as eating healthy foods, exercising more, and reducing your alcohol intake. You may be referred for counseling on a healthy diet and physical activity. Your health care provider may prescribe medicine if lifestyle changes are not enough to get your blood pressure under control and if: ? Your systolic blood pressure is above 130. ? Your diastolic blood pressure is above 80. Your personal target blood pressure may vary depending on your medical conditions, your age, and other factors. Follow these instructions at home: Eating and drinking ? Eat a diet that is high in fiber and potassium, and low in sodium, added sugar, and fat. An example of this eating plan is called the DASH diet. DASH stands for Dietary Approaches to Stop Hypertension. To eat this way: ? Eat plenty of fresh fruits and vegetables. Try to fill one half of your plate at each meal with fruits and vegetables. ? Eat whole grains, such as whole-wheat pasta, brown rice, or whole-grain bread. Fill about one fourth of your plate with whole grains. ? Eat or drink low-fat dairy products, such as skim milk or low-fat yogurt. ? Avoid fatty cuts of meat, processed or cured meats, and poultry with skin. Fill about one fourth of your plate with lean proteins, such as fish, chicken without skin, beans, eggs, or tofu. ? Avoid pre-made and processed foods. These tend to be higher in sodium, added sugar, and fat. ? Reduce your daily sodium intake. Many people with hypertension should eat less than 1,500 mg of sodium a day. ? Do not drink alcohol if: ? Your health care provider tells you not to drink. ? You are , may be , or are planning to become . ? If you drink alcohol: ? Limit how much you have to: ? 0?1 drink a day for women. ? 0?2 drinks a day for men. ? Know how much alcohol is in your drink. In the [place] one drink equals one 12 oz bottle of beer (355 mL), one 5 oz glass of wine (148 mL), (more content not included)...[facility]09-13-2024 NoteProgress Note-Physician Patient: ADELINA MIR Age: 63 years Sex: Female : 1960 Associated Diagnoses: None Author: Billy Echols MD Preoperative Information Anesthesia Preop Info: Time patient last ate or drank 05/16/2024 00:00:00. Anesthesia history: Patient history: None. Family history+: None. Informed consent: Signed by patient. Re-evaluation prior to induction: Initial evaluation reviewed: No significant change. Review of Systems Eye Ear/Nose/Mouth/Throat Respiratory: No shortness of breath, No cough. Cardiovascular: Negative, No chest pain. Musculoskeletal Neurologic Health Status Allergies: Allergic Reactions (Selected) Moderate Entex- Unknown. Skelaxin- Unknown. Severity Not Documented Corticosteroids- Anaphylaxis., Allergies (3) Active Severity Reaction Skelaxin Moderate Unknown Entex Moderate Unknown corticosteroids Anaphylaxis Current medications: (Selected) Prescriptions Prescribed Hyzaar 12.5 mg-50 mg Tab: 1 tab(s), Oral, Daily, 90 tab(s), Refill(s) 3, [facility], 170, cm, 02/27/24 13:53:00 EDT, Height/Length Dosing, 66.7, kg, 02/27/24 13:53:00 EDT, Weight Dosing acetaminophen-oxycodone 325 mg-5 mg Tab: 1 tab(s), Oral, q6hr Pain, 12 tab(s), Refill(s) 0, take with food or milk not to exceed 4000 mg acetaminophen per day, [facility], 170, cm, 05/16/24 8:11:00 EDT, Height/Length Dosing, 67.9, kg, 05/16/24 8:11:00 EDT, Weight Dosing alprazolam 0.25 mg Tab: See Instructions, 1 tab tid prn, # 90 tab(s), Refills(s) 0, Pharmacy: [facility], 170, cm, 05/14/24 14:25:00 EDT, Height/Length Dosing, 67.9, kg, 05/14/24 14:25:00 EDT, Weight Dosing cyclobenzaprine 10 mg Tab: 10 mg = 1 tab(s), Oral, Bedtime, PRN for spasm, # 90 tab(s), Refills(s) 3, Pharmacy: [facility], 170.2, cm, 07/24/23 13:54:00 EST, Height/Length Dosing, 70.1, kg,07/24/23 13:54:00 EST, Weight Dosing gabapentin 300 mg Cap: 300 mg = 1 cap(s), Oral, BID, # 180 cap(s), Refills(s) 3, Pharmacy: [facility], 170, cm, 05/14/24 14:25:00 EDT, Height/Length Dosing, 67.9, kg, 05/14/24 14:25:00 EDT,Weight Dosing gabapentin 300 mg Cap: 300 mg = 1 cap(s), Oral, TID, # 30 cap(s), Refills(s) 0, Pharmacy: [facility], 170, cm, 05/16/24 8:11:00 EDT, Height/Length Dosing, 67.9, kg, 05/16/24 8:11:00 EDT, Weight Dosing Documented Medications Documented aspirin 81 mg Oral EC Tab: 81 mg = 1 tab(s), Oral, Daily, Refills(s) 0, Prophylaxis, Home Medications (7) Active acetaminophen-oxycodone 325 mg-5 mg Tab 1 tab(s), PRN, Oral, q6hr alprazolam 0.25 mg Tab See Instructions aspirin 81 mg Oral EC Tab 81 mg = 1 tab(s), Oral, Daily cyclobenzaprine 10 mg Tab 10 mg = 1 tab(s), PRN, Oral, Bedtime gabapentin 300 mg Cap 300 mg = 1 cap(s), Oral, BID gabapentin 300 mg Cap 300 mg = 1 cap(s), Oral, TID Hyzaar 12.5 mg-50 mg Tab 1 tab(s), Oral, Daily , No qualifying data available Problem list: All Problems Abnormal EKG / SNOMED CT 0082342661 / Confirmed ADHD / SNOMED CT 6537074280 / Confirmed Anxiety / SNOMED CT 55161122 / Confirmed Breast cancer of lower-inner quadrant of left female breast / SNOMED CT 265555732 / Confirmed Complex regional pain syndrome of lower limb / SNOMED CT 6877500062 / Confirmed Dysuria / SNOMED CT 30953878 / Confirmed Essential tremor / SNOMED CT 8566382892 / Confirmed Generalized anxiety disorder / SNOMED CT 35564423 / Confirmed HTN (hypertension) / SNOMED CT 4312125867 / Confirmed Hx of osteoarthritis / SNOMED CT 321284095 / Confirmed Idiopathic polyneuropathy / SNOMED CT 70302065 / Confirmed Intradermal melanocytic nevus / SNOMED CT 908039211 / Confirmed Mass of left breast / SNOMED CT 5414547802 / Confirmed Neoplasm of uncertain behavior of skin of back / SNOMED CT 364172469 / Confirmed Neoplasm of uncertain behavior of skin of face / SNOMED CT 314470161 / Confirmed Pre-op exam / SNOMED CT 753098495 / Confirmed Scoliosis / SNOMED CT 648956358 / Confirmed Resolved: Polyneuropathy / SNOMED CT 36190811 Resolved: RSD lower limb / SNOMED CT 2246721259 Canceled: Acute COVID-19 / IMO [id number] Canceled: Blood pressure elevated without history of HTN / SNOMED CT 0031517436 Canceled: BMI 25.0-25.9,adult / SNOMED CT 5575325133 Canceled: assisted current use of opiate analgesic / SNOMED CT 3940148373 Canceled: Nipple discharge / SNOMED CT 017118335, Active Problems (17) Abnormal EKG ADHD Anxiety Breast cancer of lower-inner quadrant of left female breast Complex regional pain syndrome of lower limb Dysuria Essential tremor Generalized anxiety disorder HTN (hypertension) Hx of osteoarthritis Idiopathic polyneuropathy Intradermal melanocytic nevus Mass of left breast Neoplasm of uncertain behavior of skin of back Neoplasm of uncertain behavior of skin of face Pre-op exam Scoliosis Histories Past Medical History: Resolved RSD lower limb ([id number]): (more content not included)...[facility]Result Comment: Electronically Signed By: Onesimo PRATT, Billy Locke\.br\Date and Time Signed: 05/17/24 12:49 [id number] NoteProgress Note-Physician Patient: ADELINA MIR Age: 63 years Sex: Female : 1960 Associated Diagnoses: None Author: Billy Jara Jr, DO Postoperative Information Postoperative disposition: Postoperative disposition: To PACU. Optimetrix number: Optimetrix number [id number]. Anesthetic utilized: General. Health Status Allergies: Allergic Reactions (Selected) Moderate Entex- Unknown. Skelaxin- Unknown. Severity Not Documented Corticosteroids- Anaphylaxis. Physical Examination Vital Signs 05/16/2024 14:49 EDT Heart Rate Monitored 87 bpm SpO2 96 % 05/16/2024 14:49 EDT Respiratory Rate 18 br/min 05/16/2024 14:48 EDT Systolic Blood Pressure 141 mmHg HI Diastolic Blood Pressure 82 mmHg Mean Arterial Pressure, Monitered 102 mmHg 05/16/2024 14:04 EDT Heart Rate Monitored 102 bpm HI Respiratory Rate 18 br/min SpO2 95 % 05/16/2024 14:03 EDT Systolic Blood Pressure 130 mmHg Diastolic Blood Pressure 80 mmHg Mean Arterial Pressure, Monitered 97 mmHg 05/16/2024 13:54 EDT Temperature Temporal Artery 36.2 DegC LOW Heart Rate Monitored 106 bpm HI Respiratory Rate Monitored 11 br/min Systolic Blood Pressure 114 mmHg Diastolic Blood Pressure 70 mmHg Mean Arterial Pressure, Cuff 85 mmHg SpO2 95 % Pain Assessment: Controlled. General: Awake, Alert, Appropriate. Respiratory: Adequate air exchange. Cardiovascular: Stable, Normal peripheral perfusion. Neurological: Normal sensory function, Normal motor function. Assessment Anesthetic outcome No anesthetic complications noted. Adequate pain relief. able to void without difficulty, able to ambulate with assist, tolerating PO intake, no N/V. Review / Management Condition: Stable. Plan Transfer/Discharge: Transfer/Discharge Discharge when meets criteria ( To home ).[facility]:Result Comment: Electronically Signed By: Billy Jara Jr, DO\.oh\Date and Time Signed: 05/16/24 16:02 EDT 05-16-2024 Hospital Discharge instructions Patient Education 05/16/2024 13:56:13 [facility] [place], [place] DISCHARGE INSTRUCTIONS CARING FOR YOUR CHINTAN-BIRD DRAINAGE TUBE You have been discharged with a Chintan-Bird drainage tube. This tube will help healing and reducethe risk of infection by removing fluid through your incision. It is attached to a drain or collection device where you will see fluid and blood. A bandage at the incision site will protect the open area from infection. You may feel some burning and pulling from the stitch that holds the tube in place. Your drain will be removed when the amount of drainage lessens, usually 5-7 days after surgery.The ella will be removed in 10-14 days after surgery. HOME CARE Don t sleep on the same side as the tube. Secure the tube and bag inside your clothing. This will prevent the tube form being pulled out. Empty your drain at least three times a day: in the morning, afternoon and before bed. Empty it more often as needed. Strip the tubing as much as possible. Lift the opening on the drain. Drain the fluid into a measuring cup. Record the amount of fluid and time that you empty the drain. Share this information with your doctor on your next visit. Squeeze the bulb with your hands until all the air is out of the bulb. Close the opening. WHEN TO CALL YOUR DOCTOR call immediately if you have any of the following: Pain, swelling, or fluid around the tube Stitches that become infected Redness or warmth around the incision Tube that falls out Nausea and vomiting Foul smell from incision site Chills or fever above 100 degrees F Fluid draining from your incision. An incision that does not heal Drainage that changes from light pink to dark red LUIS ARMANDO OUTPUT IN CC'S #1 AMAFTERNOONPM #2 AMAFTERNOONPM Written: 05-1305/16/2024 13:45:15 Total or Modified Radical Mastectomy, Care After Total or Modified Radical Mastectomy, Care After The following information offers guidance on how to care for yourself after your procedure. Your health care provider may also give you more specific instructions. If you have problems or questions, contact your health care provider. What can I expect after the procedure? After the procedure, it is common to have: Pain, soreness, or tenderness. Numbness. Swelling. Neuropathic (nerve) pain in the chest wall, armpit, or arm. Stiffness in the arm or shoulder. Feelings of stress, sadness, or depression. If the lymph nodes under your arm were removed, you may have arm swelling, weakness, or numbness onthe same side of your body as your surgery. Follow these instructions at home: Incision care Follow instructions from your health care provider about how to take care of your incision. Make sure you: ?Wash your hands with soap and water for at least 20 seconds before you change your bandage (dressing). If soap and water are not available, use hand nurse's assistant. ?Change your dressing as told by your health care provider. ?Leave stitches (sutures), skin glue, or adhesive strips in place. These skin closures may need to stay in place for 2 weeks or longer. If adhesive strip edges start to loosen and curl up, you may trim the loose edges. Do not remove adhesive strips completely unless your health care provider tells you to do that. Check your incision area every day for signs of infection. Check for: ?Redness, swelling, or more pain. ?Fluid or blood. ?Warmth. ?Pus or a bad smell. If you were sent home with a surgical drain in place, follow instructions from your health care provider. This may include emptying the drain and keeping track of the amount of drainage. Bathing Do not take baths, swim, or use a hot tub until your health care provider approves. Ask your healthcare provider if you may take showers. You may only be allowed to take sponge baths. Activity Return to your normal activities as told by your health care provider. Ask your health care provider what activities are safe for you. It may take several weeks to return to full activity. Avoid activities that take a lot of effort. Rest as told by your health care provider. Ask friends and family to help with chores, including child and adolescent psychiatrist, meal preparation, laundry, and shopping. Be careful to avoid any activities that could cause an injury to your arm on the side of your surgery. Do not lift anything that is heavier than 10 lb (4.5 kg), or the limit that you are told, until your health care provider says that it is safe. Avoid lifting with the arm on the side of your surgery. Do not carry heavy objects on your shoulder. After your drain is removed, do exercises to prevent stiffness and swelling in your arm. Talk with your health care provider about which exercises are safe for you. General instructions Take nwfp-uca-vwhceeh and prescription medicines only as told by your health care provider. You may eat what you usually do. Keep your arm raised (elevated) above the level of your heart when you are sitting or lying down. Do not wear tight jewelry on your arm, wrist, or fingers on the side of your surgery. You may be given a tight sleeve (compression bandage) to wear over your arm on the side of your surgery. Wear this sleeve as told by your health care provider. Ask your health care provider when you can start wearing a bra or using a breast prosthesis. Before you are involved in certain procedures, such as giving blood or having your blood pressure checked, tell all of your health care providers if lymph nodes under your arm were removed. This is important information. Follow-up Keep all follow-up visits. This is important. Get checked for extra fluid around your lymph nodes (lymphedema) as often as told by your health care provider. Medicines Take wtfn-vqk-elzbplc and prescription medicines as told by your health care provider. Take your antibiotic medicine as told by your health care provider. Do not stop taking the antibiotic even if you start to feel better. Ask your health care provider if the medicine prescribed to you: ?Requires you to avoid driving or using machinery. ?Can cause constipation. You may need to take these actions to prevent or treat constipation: ?Drink enough fluid to keep your urine pale yellow. ?Take vpow-xnk-jncynda or prescription medicines. ?Eat foods that are high in fiber, such as beans, whole grains, and fresh fruits and vegetables. ?Limit foods that are high in fat and processed sugars, such as fried or sweet foods. Lifestyle Do not use any products that contain nicotine or tobacco before the procedure. These products include cigarettes, chewing tobacco, and vaping devices, such as e-cigarettes. These can delay incision healing. If you need help quitting, ask your health care provider. Contact a health care provider if: You have chills or a fever. Your pain medicine is not working. Your arm swelling, weakness, or numbness has not improved after a few weeks. You have new swelling in your breast area or arm. You have redness, swelling, or more pain in your incision area. You have fluid or blood coming from your incision. Your incision feels warm to the touch. You have pus or a bad smell coming from your incision. Get help right away if: You have very bad pain in your breast area or arm. You have a sudden onset of chest pain. You have a fast heart rate. You have difficulty breathing. These symptoms may be an emergency. Get help right away. Call 911. Do not wait to see if the symptoms will go away. Do not drive yourself to the hospital. Summary Follow instructions from your health care provider about how to take care of your incision. Check your incision area every day for signs of infection. Ask your health care provider what activities are safe for you. Keep all follow-up visits. This is important. Contact a health care provider if you have new swelling in your breast area or arm. This information is not intended to replace advice given to you by your health care provider. Make sure you discuss any questions you have with your health care provider. Document Revised: 05/22/2022 Document Reviewed: 05/22/2022 [employer] Patient Education 2023 [employer] 05/16/2024 13:44:26 Post Op Patient Instructions - FT (Custom) (CUSTOM) Follow Up Care 04/12/2024 09:08:53 With:Miquel Bustamante Address: [address] [place] [address]- Business (1) When: Unknown Comments:Keep scheduled appointment With:Roshan BRAUN Address: [address] [facility] [address] [place] [address]- Business (1) When:5 to 7 days Comments:Call for any problems. [facility] 09-12-2024 Evaluation + Plan noteExtracted from:Title: ANES Post-operative Note---GeneralAuthor:Billy Jara Jr, DO ADate:05/16/24 Plan Transfer/Discharge: Transfer/Discharge Discharge when meets criteria ( To home ). Future Appointments Appointment Date:06/11/2024 02:30:00 PM Scheduled Provider: Location:[facility] Appointment Type: Medicare Wellness Initial Appointment Date:06/11/2024 03:30:00 PM Scheduled Provider:Michael Holley MD Location:[facility] Appointment Type: Open Future Scheduled Tests Laboratory* Lipid Panel 09/07/23 Radiology* MA Mamm Diag w/CAD if perf and 3D Manny 09/20/23 [facility] 09-12-2024 NotePatient Education - Text [place], [place] Emanuel Argueta MD, FACS DISCHARGE INSTRUCTIONS CARING FOR YOUR CHINTAN-BIRD DRAINAGE TUBE You have been discharged with a Chintan-Bird drainage tube. This tube will help healing and reducethe risk of infection by removing fluid through your incision. It is attached to a drain or collection device where you will see fluid and blood. A bandage at the incision site will protect the open area from infection. You may feel some burning and pulling from the stitch that holds the tube in place. Your drain will be removed when the amount of drainage lessens, usually 5-7 days after surgery.The ella will be removed in 10-14 days after surgery. HOME CARE ? Don?t sleep on the same side as the tube. ? Secure the tube and bag inside your clothing. This will prevent the tube form being pulled out. ? Empty your drain at least three times a day: in the morning, afternoon and before bed. Empty it more often as needed. ? Strip the tubing as much as possible. ? Lift the opening on the drain. ? Drain the fluid into a measuring cup. ? Record the amount of fluid and time that you empty the drain. Share this information with your doctor on your next visit. ? Squeeze the bulb with your hands until all the air is out of the bulb. ? Close the opening. ? Change the dressing around the tube every day. ? Wash your hands. ? Remove the old bandage. ? You may shower and get the drain site wet. ? Put a new bandage on the incision and tube site. Place one gauze under the drain tube and one over the drain tube and tape it in place. FOLLOW-UP Make a follow-up appointment with your doctor as directed on your discharge paperwork. WHEN TO CALL YOUR DOCTOR ? call immediately if you have any of the following: ? Pain, swelling, or fluid around the tube ? Stitches that become infected ? Redness or warmth around the incision ? Tube that falls out ? Nausea and vomiting ? Foul smell from incision site ? Chills or fever above 100 degrees F ? Fluid draining from your incision. ? An incision that does not heal ? Drainage that changes from light pink to dark red LUIS ARMANDO OUTPUT IN CC'S #1 AM AFTERNOON PM #2 AM AFTERNOON PM Written: 05-13 Obstetrics and Gynecology Total or Modified Radical Mastectomy, Care After The following information offers guidance on how to care for yourself after your procedure. Your health care provider may also give you more specific instructions. If you have problems or questions, contact your health care provider. What can I expect after the procedure? After the procedure, it is common to have: ? Pain, soreness, or tenderness. ? Numbness. ? Swelling. ? Neuropathic (nerve) pain in the chest wall, armpit, or arm. ? Stiffness in the arm or shoulder. ? Feelings of stress, sadness, or depression. If the lymph nodes under your arm were removed, you may have arm swelling, weakness, or numbness onthe same side of your body as your surgery. Follow these instructions at home: Incision care ? Follow instructions from your health care provider about how to take care of your incision. Make sure you: ? Wash your hands with soap and water for at least 20 seconds before you change your bandage (dressing). If soap and water are not available, use hand nurse's assistant. ? Change your dressing as told by your health care provider. ? Leave stitches (sutures), skin glue, or adhesive strips in place. These skin closures may need tostay in place for 2 weeks or longer. If adhesive strip edges start to loosen and curl up, you may trim the loose edges. Do not remove adhesive strips completely unless your health care provider tellsyou to do that. ? Check your incision area ev (more content not included)...[facility] NotePatient Education Cardiovascular Hypertension, Adult High blood pressure (hypertension) is when the force of blood pumping through the arteries is too strong. The arteries are the blood vessels that carry blood from the heart throughout the body. Hypertension forces the heart to work harder to pump blood and may cause arteries to become narrow or stiff. Untreated or uncontrolled hypertension can lead to a heart attack, heart failure, a stroke, kidney disease, and other problems. A blood pressure reading consists of a higher number over a lower number. Ideally, your blood pressure should be below 120/80. The first ( top ) number is called the systolic pressure. It is a measure of the pressure in your arteries as your heart beats. The second ( bottom ) number is called the diastolic pressure. It is a measure of the pressure in your arteries as the heart relaxes. What are the causes? The exact cause of this condition is not known. There are some conditions that result in high bloodpressure. What increases the risk? Certain factors may make you more likely to develop high blood pressure. Some of these risk factorsare under your control, including: ? Smoking. ? Not getting enough exercise or physical activity. ? Being overweight. ? Having too much fat, sugar, calories, or salt (sodium) in your diet. ? Drinking too much alcohol. Other risk factors include: ? Having a personal history of heart disease, diabetes, high cholesterol, or kidney disease. ? Stress. ? Having a family history of high blood pressure and high cholesterol. ? Having obstructive sleep apnea. ? Age. The risk increases with age. What are the signs or symptoms? High blood pressure may not cause symptoms. Very high blood pressure (hypertensive crisis) may cause: ? Headache. ? Fast or irregular heartbeats (palpitations). ? Shortness of breath. ? Nosebleed. ? Nausea and vomiting. ? Vision changes. ? Severe chest pain, dizziness, and seizures. How is this diagnosed? This condition is diagnosed by measuring your blood pressure while you are seated, with your arm resting on a flat surface, your legs uncrossed, and your feet flat on the floor. The cuff of the bloodpressure monitor will be placed directly against the skin of your upper arm at the level of your heart. Blood pressure should be measured at least twice using the same arm. Certain conditions can cause a difference in blood pressure between your right and left arms. If you have a high blood pressure reading during one visit or you have normal blood pressure with other risk factors, you may be asked to: ? Return on a different day to have your blood pressure checked again. ? Monitor your blood pressure at home for 1 week or longer. If you are diagnosed with hypertension, you may have other blood or imaging tests to help your health care provider understand your overall risk for other conditions. How is this treated? This condition is treated by making healthy lifestyle changes, such as eating healthy foods, exercising more, and reducing your alcohol intake. You may be referred for counseling on a healthy diet and physical activity. Your health care provider may prescribe medicine if lifestyle changes are not enough to get your blood pressure under control and if: ? Your systolic blood pressure is above 130. ? Your diastolic blood pressure is above 80. Your personal target blood pressure may vary depending on your medical conditions, your age, and other factors. Follow these instructions at home: Eating and drinking ? Eat a diet that is high in fiber and potassium, and low in sodium, added sugar, and fat. An example of this eating plan is called the DASH diet. DASH stands for Dietary Approaches to Stop Hypertension. To eat this way: ? Eat plenty of fresh fruits and vegetables. Try to fill one half of your plate at each meal with fruits and vegetables. ? Eat whole grains, such as whole-wheat pasta, brown rice, or whole-grain bread. Fill about one fourth of your plate with whole grains. ? Eat or drink low-fat dairy products, such as skim milk or low-fat yogurt. ? Avoid fatty cuts of meat, processed or cured meats, and poultry with skin. Fill about one fourth of your plate with lean proteins, such as fish, chicken without skin, beans, eggs, or tofu. ? Avoid pre-made and processed foods. These tend to be higher in sodium, added sugar, and fat. ? Reduce your daily sodium intake. Many people with hypertension should eat less than 1,500 mg of sodium a day. ? Do not drink alcohol if: ? Your health care provider tells you not to drink. ? You are , may be , or are planning to become . ? If you drink alcohol: ? Limit how much you have to: ? 0?1 drink a day for women. ? 0?2 drinks a day for men. ? Know how much alcohol is in your drink. In the [place] one drink equals one 12 oz bottle of beer (355 mL), one 5 oz glass of wine (148 mL), (more content not included)...[facility]06-06-2024 Hospital Discharge instructionsAmbulatory Orders* Referral to Genetics Time Frame: 02/08/24, Location: None [facility] Work Phone: 1(305) 511-725803-21-2024 Note [id number] NoteEchocardiology Procedure Exam Date/Time Accession # Ordering Dr. Felix Transthoracic 10/24/2023 11:57 EST [id number] Osmin PAUL MD Complete CPT code [id number] Reason for Exam (Echo Transthoracic Complete) I10;Hypertension Report [facility] [address] [place] [address] Adult Echocardiogram Report Name: ADELINA MIR Study Date: 10/24/2023 11:11 AM BP: 118/88 mmHg Patient Location: [facility] HR: 47 : 1960 Gender: Female Height: 67 in Age: 63 yrs Ethnicity: T Weight: 153 lb Reason For Study: Hypertension BSA: 1.8 m2 History: HTN,breast cancer Ordering Physician: BEVERLY^Osmin^J Referring Physician: Omsin PAUL Performed By: Rox Brenner, RDMS, RVT Interpretation Summary Normal LV and RV. No significant valve disease. Normal estimated PA pressure. Impaired diastolic relaxation. Severe LVH. Global peak strain ave = -12.7% Ejection Fraction = 55-60%. Procedure A complete two-dimensional transthoracic echocardiogram was performed (2D, M- mode, spectral and color flow Doppler). Study quality [...] Doppler Measurements & Calculations MV E max bart: 49.7 cm/sec MV dec time: 0.29 sec Ao V2 max: 122.0 cm/sec LV V1 max P.0 mmHg MV A max bart: 72.4 cm/sec Ao max P.0 mmHg LV V1 mean P.0 mmHg MV E/A: 0.69 Ao V2 mean: 80.5 cm/sec LV V1 max: 71.1 cm/sec Lat Peak E' Bart: 3.5 cm/sec Ao mean P.0 mmHg LV V1 mean: 43.7 cm/sec E/E' Lat: 14.3 Ao V2 VTI: 28.2 cm LV V1 VTI: 15.1 cm Med Peak E' Bart: 5.2 cm/sec E/E' Med: 9.5 ANKIT(I,D): 2.2 cm2 ANKIT(V,D): 2.4 cm2 SV(LVOT): 60.9 ml TR max bart: 228.8 cm/sec RAP systole: 3.0 mmHg AV VR: 0.58 TR max P.9 mmHg ANKIT(VTI)/BSA_phl: 1.2 RVSP(TR): 23.9 mmHg Measurements from QLAB LV GLS Endo Peak A2C (): - LV GLS Endo Peak A3C (): - LV GLS Endo Peak A4C (): - LV GLS Endo Peak Avg (): - 11.9 % 12.0 % 14.1 % 12.7 % FINAL REPORT Dictated: 10/24/2023 11:11 am Roberto Sosa MD. Signed (Electronic Signature): 10/30/2023 10:21 am Signed by: Roberto Sosa MD Transcribed by: [facility] Technologist: [facility]10-19-2023 Note Chief Complaint consultation for nipple discharge HPI Staff 62 year old female presents on consultation from Dr. Andrews for left nipple discharge. Evaluated by Dr. Holley 03/21 with stated complaint. Mammogram completed 04/04 cat [address] Evaluated by Dr. Andrews 05/30 withnoted brown discharge from left nipple and mass at 6:00 position. Wound culture with normal skin deepali. Patient reports daily spontaneous brown nipple discharge. States breast will feel full at the start of discharge. At that time, she will manually express additional fluid that is more clear/milkyin color. Denies overt breast pain. No skin [...] express serous fluid from the breast daily withimprovement; no bloody drainage; no pain or skin [...] swallowing difficulties, no hearing loss, no ear infection(s),no nose bleeds. Cardiovascular: normal blood pressure, no [...] anxiety disorder Hx of osteoarthritis Idiopathic polyneuropathy assisted current use of opiate analgesic Mass of left breast Nipple discharge Scoliosis Historical Polyneuropathy RSD lower limb Procedure/Surgical History Arthroscopy of knee (06/04/1995), Appendectomy, Cholecystectomy, Extraction of wisdom tooth, Foot, Simple dental extraction, DEAN BSO - Total abdominal hysterectomy and bilateral salpingo-oophorectomy, Tonsille (more content not included)...[facility] HospitalComment on above:Result Comment: Electronically Signed By: APARNA PRATT, Roshan Hargrove\Date and Time Signed: 06/22/23 09:47 [id number] Progress note Author Kush SilvaEast Mountain HospitalBl[facility] HospitalNote Date/TimeFebruary 2024 10:18am [facility] [place] [address] Cancer Center Note Signed Patient: Adelina Mir MR#: [id number] : 1960 Acct:[id number] Age/Sex: 64 / F Type: REG AMB Date of Service: 10/16/24 Copies to: Michael Holley MD~ Assessment & Plan A/P (1) Breast cancer, left: (2) Osteopenia: Plan Based on the biopsy done on 01/10/2024 it reveals pT1c, pNX, ER positive, TX positive, HER2/pat negative (1+), no DCIS, tumor size of the invasive ductal carcinoma is 1.7 cm at least with positive superior margin and no lymphovascularinvasion detected. No lymph nodes included in the biopsy. Patient was referredfor further surgical resection with bilateral mastectomy by Dr. Braun and Dr. Bustamante forreconstructive surgery. - Invitae gene testing done 03/01/24 was negative. -Bone density scan done on 02/15/2024 revealed osteopenia with a T-score of -1.4 in the left femoralneck. - Oncotype Dx score was done on the biopsy tissue based on unknown gwen statusat that time revealed: - If she is node-negative: Recurrence score of 5 with distant recurrence risk at 9 years of 3% withendocrine therapy alone with less than 1% benefit from the chemo. - If Node positive and premenopausal: Recurrence score will be 5 with distantrecurrence risk at 5 years 3% with her medicine better or endocrine therapy alone and chemo benefit 2.3%. -If she is postmenopausal and node positive the recurrence score is 5 with distant recurrence risk at 5 years with AI or tamoxifen alone is 1% and chemo benefit no apparent benefit noticed as it is less than 1% only. -If she has node positive of 4 or more lymph nodes then recurrence score is 5% and the distant recurrence at 9 years is 35% with AI and tamoxifen alone. -She underwent left breast mastectomy with sentinel node biopsy 05/16/2024, skin sparing with immediate reconstruction with tissue litharge supervisor by Dr. Bustamante. Surgical path from surgery done on 05/16/2024 revealed: A. Left axillary sentinel lymph node 1 out of 2 lymph nodes positive for metastatic carcinoma with mucinous features with extranodal extension again and 1 out of 2 lymph nodes. B. Lymph nodes in the left axillary sentinel lymph node 2 of 6 lymph nodes positive for metastatic carcinoma with mucinous features with extranodal extension. Left breast mastectomy revealed invasive ductal carcinoma with mucinous featuresgrade 2, 1.4 cm in greatest dimension. Ductal carcinoma in situ low-grade cribriform Lymphovascular invasion present Focal invasive carcinoma is present within 1 mm from inked inferior margin. Resection margins negative for DCIS with 5 mm from closest deep margin. Fibrocystic changes characterized by apocrine metaplasia and usual ductal hyperplasia with adenosisand microcalcification. Skin and nipple uninvolved by DCIS or invasive cancer Stage IIA, TNM stage is pT1c, pN1a. Number of lymph nodes with macrometastasis 3 and number of lymph nodes with isolated tumor cells 0 and number of lymph nodes with micrometastasis 0. Extranodal extension is present. ER positive over 90%, TX +80%, HER2 negative (1+), Ki-67 3% Treatment plan: After discussing the above findings from the surgical path with her and considering that she has extranodal extension of 3 out of 6 lymph nodes and lymphovascular invasion positive with 1.4 cm tumor that is grade 2, I recommended adjuvant chemo using dose dense AC followed by T followed by adjuvantradiation followed by adjuvant endocrine therapy. She agreed and signed the consent. Side effects were discussed with patient. 07/31/24: She is here for 1 week toxicity check after cycle 1 of dose dense AC obtained org[facility] on 07/24/2024. She tolerated C1 without any complaints but has same postnasal drainage for more than 4 weeks evenbefore chemo without sore throat or fevers. She tried Benadryl and can not take steroids due to allergy to steroids. She is scheduled for cycle 2 on 08/08/2024. Labs on 07/30/2024 revealed normal CBC with normal WBC of 5.7 normal ANC of 4.2 and unremarkable CMP. - Proceeded with cycle 2 of dose dense AC on 08/08/2024. 08/21/24: She is here for evaluation prior to her C3 of the adjuvant ddAC scheduled on 08/22/24. She had mildfatigue and had nausea for 6 days after cycle 2 of dose dense AC but not vomiting and no chest painor shortness of breath or leg edema or abdominal pain or diarrhea. She has chronic peripheral neuropathy even before chemotherapy. No fevers or current infections. Her Zofran she took daily for 6 days after cycle 2 helped her nausea. PLAN: Proceed with C3 ddAC on 08/21/24 if labs meets criteria for chemo. Continue using calcium 500 mg twice daily and vitamin D 2000 unit daily for her mild osteopenia. Next DEXA scan is in 02/2026. I asked her to take her Zofran daily for the first week after each dose dense ACgiven. Weekly CBCs and CMP. Try pepcid and Zyrtec for postnasal drainage. Returns in 2 weeks for cycle 4 of dose dense AC. After she completes 4 cycles of ddAC she then can start weekly taxol 2 weeks after C4 of AC. 09/03/24: She continues to do fairly well with treatment and will receive cycle 4 ddAC this week. Her labs remain okay for continued treatment. She will follow-up in2 weeks with Dr. Bales with plans of starting her weekly Taxol at that visit as well. 09/17/24: Patient sent to ED for worsening symptoms, will likely hold off on initiation of Taxol this week given acute concerns. 09/19/24: She is admitted with a hemoglobin of 5.6 and found to have pneumonia as well as UTI during this admission evaluation with urine culture and was transfused 2 units of packed RBC and brought her hemoglobin up to 7.7 on 09/19/2024. Her platelet on admission on 09/17/2024 was 24K on 09/17/24 and they are 38K on 09/19/24 without evidence or signs of clinical bleeding. - Medical oncology was consulted for further recommendation regarding her anemia, thrombocytopenia and left breast cancer treatment considering that she missed her week 1 of the weekly Taxol scheduled on 09/18/24. Clinically she denied any melena or rectal bleeding or gross hematuria. She denies any hemoptysis however she has some right lower chest discomfort and cough likely from her pneumonia. She has some burning with her urination as well. 10/03/24: She is here for 2 weeks follow up after hospital admission for pneumonia, UTI, severe anemia and thrombocytopenia with hgb 5.6 and plt 24K (see above). Labs on 10/03/2024 revealed hemoglobin increased to 8.9 WBC is 9.8 and a plateletcount of is back tonormal 321. CMP are normal. She is here to resume her adjuvant chemo as she was supposed to start her week 1of adjuvant weekly Taxol prior to her recent admission. - She did not start her week1 of the weekly Taxol on 10/09/24 because of generalized weakness. 10/16/24: Patient is here for to start week1 of the weekly Taxol. No new complaints. Labs on 10/15/2024 revealed stable anemia hemoglobin 8.1 with normal WBC and platelet count and normal creatinine and LFTs. PLAN: Start weekly Taxol on 10/16/24. Proceed with week 1 today. Start B1/B6/B12 50/50/500 mg for neuropathy history. Add iron pill 3 times a week. Check iron level next time. Weekly CBC. CMP every 2 weeks. RTC in 2 weeks for week 3. Patient Instructions: proceed with treatment iron labs in 2 weeks return in 2 weeks CHEMO PLAN Treatment Plan Paclitaxel 80mg/m2 Weekly x 4 weeks Clinical Indication No Indication Cycle Number Last Admin 1 of 3 Cycle Day Next Admin 28 of 28 No Active Chemotherapy History of Present Illness SHAE Sahu is a 63-year-old nice lady with history of generalized anxiety disorder, ADHD, complex regional pain syndrome of the lower extremity, essential tremor, hypertension and osteoarthritis to has idiopathic polyneuropathy and scoliosis with history of intermittent marijuana use as needed for paincontrol who was referred to our medical oncology clinic by Dr. Braun for new findings of new leftbreast invasive ductal carcinoma grade 2, ER positive, TX positive, HER2/apt negative 1+, 1.7 cm at least invasive ductal carcinoma, negative for lymphovascular invasion, positive superior margin of the invasive cancer, no DCIS presents and no lymph nodes were obtained as per the biopsy done on 01/10/2024. Patient has been having intermittent nipple discharge with possible fistula from the left breast but no nipple bleeding for several months. She hadBI-RADS 3 screening mammogram in April 2023 whichwas followed by ultrasound patient underwent initial biopsy of the suspicious left breast lesion on 07/12/2023 however results of the path of that biopsy was consistent with fibrovascular adipose tissue with no pathology present. Patient continues to have nipple discharge and Dr. Braun plan to do a lumpectomy however because of cardiac workup and clearance needed another biopsy was done on left breast underultrasound guidance and it came back also inconclusive in November 2023 which led to excisional biopsy performed on 01/10/2024. The path results of that excisionalbiopsy done on 01/10/2024 is as follows: Pathological Diagnosis 01/10/2024: Mass, left breast, 7:00, lumpectomy: Invasive ductal carcinoma. Tumor Is 1.7 Cm In Greatest Dimension. Grade 2/ Moderately Differentiated. Tumor is present at the superior surgical margin. Tumor Is less than 0.1 Cm From The anterior and lateral surgical Margins. No Evidence Of Lymphovascular Invasion. Breast Hormone Profile ER: Positive TX: Positive HER2/pat by immunostain: Negative (1+) CAP CANCER CASE SUMMARY SPECIMEN Procedure: Excision [...] (when applicable) pM categories is based on informationavailable to the pathologist at the time the report is issued. As per the AJCC (Chapter 1, 8th Ed.) it is the managing physician's responsibility to establish the final pathologic stage based upon all pertinent information, including but potentially not limited to this pathology report. pT Category: pT1c pN Category: pNx Patient denies any family history of ovarian cancer however she has a cousin with breast cancer. She has a sister with multiple lumps under her breast but there were not cancerous. No known family history of ovarian cancer however hermwashington had mesothelioma. She does not know her father side because she does not know her biological father. 05/30/24: She is here for further planning of care after her left breast mastectomy and for results of the DEXA scan and Oncotype DX. Patient was sent to Dr. Bustamante for reconstructive breast surgeries as she is electing to go for bilateral mastectomy. She was also sent to our medical oncology clinic for recommendation regarding management of her new left breast cancer that is ER positive TX positive and HER2/pat negative but nolymph nodes were obtained as of this initial consult done on 02/08/2024. Surgery date yet to be determined [address] BRAUN. - Invitae gene testing done 03/01/24 was negative. -Bone density scan done on 02/15/2024 revealed osteopenia with a T-score of -1.4 in the left femoralneck. - Oncotype Dx score was done on the biopsy tissue based on unknown gwen statusat that time revealed: - If she is node-negative: Recurrence score of 5 with distant recurrence risk at 9 years of 3% withendocrine therapy alone with less than 1% benefit from the chemo. - If Node positive and premenopausal: Recurrence score will be 5 with distantrecurrence risk at 5 years 3% with her medicine better or endocrine therapy alone and chemo benefit 2.3%. -If she is postmenopausal and node positive the recurrence score is 5 with distant recurrence risk at 5 years with AI or tamoxifen alone is 1% and chemo benefit no apparent benefit noticed as it is less than 1% only. -If she has node positive of 4 or more lymph nodes then recurrence score is 5% and the distant recurrence at 9 years is 35% with AI and tamoxifen alone. -She underwent left breast mastectomy with sentinel node biopsy 05/16/2024, skin sparing with immediate reconstruction with tissue litharge supervisor by Dr. Bustamante. Surgical path from surgery done on 05/16/2024 revealed: A. Left axillary sentinel lymph node 1 out of 2 lymph nodes positive for metastatic carcinoma with mucinous features with extranodal extension again and 1 out of 2 lymph nodes. B. Lymph nodes in the left axillary sentinel lymph node 2 of 6 lymph nodes positive for metastatic carcinoma with mucinous features with extranodal extension. Left breast mastectomy revealed invasive ductal carcinoma with mucinous featuresgrade 2, 1.4 cm in greatest dimension. Ductal carcinoma in situ low-grade cribriform Lymphovascular invasion present Focal invasive carcinoma is present within 1 mm from inked inferior margin. Resection margins negative for DCIS with 5 mm from closest deep margin. Fibrocystic changes characterized by apocrine metaplasia and usual ductal hyperplasia with adenosisand microcalcification. Skin and nipple uninvolved by DCIS or invasive cancer Stage IIA, TNM stage is pT1c, pN1a. Number of lymph nodes with macrometastasis 3 and number of lymph nodes with isolated tumor cells 0 and number of lymph nodes with micrometastasis 0. Extranodal extension is present. ER positive over 90%, TX +80%, HER2 negative (1+), Ki-67 3% 07/31/24: She is here for 1 week toxicity check [facility]. She tolerated C1 without any complaints but has same postnasal drainage for more than 4 weeks evenbefore chemo without sore throat or fevers. She tried Benadryl and can not take steroids due to allergy to steroids. She is scheduled for cycle 2 on 08/08/2024. Labs on 07/30/2024 revealed normal CBC with normal WBC of 5.7 normal ANC of 4.2 and unremarkable CMP. 08/21/24: She is here for evaluation prior to her C3 of the adjuvant ddAC scheduled on 08/22/24. She had mildfatigue and had nausea for 6 days after cycle 2 of dose dense AC but not vomiting and no chest painor shortness of breath or leg edema or abdominal pain or diarrhea. She has chronic peripheral neuropathy even before chemotherapy. No fevers or current infections. Her Zofran she took daily for 6 days after cycle 2 helped her nausea. 14 point review of systems was obtained and was negative. 09/03/24: She presents for cycle 4 ddAC. She continues with fatigue and dyspnea if she exerts herself, otherwise no chest pain or shortness of breath at rest. No change in her neuropathy with treatment. Her nausea has better controlled now that she is taking her antiemetics regularly. She is eating and drinking ok anddenies vomiting, diarrhea, or constipation. She denies other new concerns as well. Her labs remain okay for continued treatment. 09/17/24: She presents to clinic as an add-on for worsening symptoms. Her daughter is concerned that she has pneumonia as she has been having shortness of breath and not eating much at all. Vitals today note significant hypotension and decreasedheart rate. Her oxygen levels on arrival dropped between 70s/80sand she was placed on supplemental oxygen, up to 6 L in office before her sats improved intothe 90s. She has attempted to give a urine sample as she has concern for UTI aswell, however was not able to go. Given acute symptoms, we have decided to sendher to the ED for further evaluation. 09/19/24: She is admitted with a hemoglobin of 5.6 and found to have pneumonia as well as UTI during this admission evaluation with urine culture and was transfused 2 units of packed RBC and brought her hemoglobin up to 7.7 on 09/19/2024. Her platelet on admission on 09/17/2024 was 24K on 09/17/24 and they are 38K on 09/19/24 without evidence or signs of clinical bleeding. - Medical oncology was consulted for further recommendation regarding her anemia, thrombocytopenia and left breast cancer treatment considering that she missed her week 1 of the weekly Taxol scheduled on 09/18/24. Clinically she denied any melena or rectal bleeding or gross hematuria. She denies any hemoptysis however she has some right lower chest discomfort and cough likely from her pneumonia. She has some burning with her urination as well. 10/03/24: She is here for 2 weeks follow up after hospital admission for pneumonia, UTI, severe anemia and thrombocytopenia with hgb 5.6 and plt 24K (see above). Labs on 10/03/2024 revealed hemoglobin increased to 8.9 WBC is 9.8 and a plateletcount of is back tonormal 321. CMP are normal. She is here to resume her adjuvant chemo as she was supposed to start her week 1of adjuvant weekly Taxol prior to her recent admission. She feels much better. No more SOB and no CP or bleeding from any source. 10/16/24: Patient is here for to start week1 of the weekly Taxol. No new complaints. Labs on 10/15/2024 revealed stable anemia hemoglobin 8.1 with normal WBC and platelet count and normal creatinine and LFTs. Intake Vitals/Pain Assessment 10/16/24 09:50 Weight 61.689 kg BP 186/96 H Blood Pressure Location Rt brachial Position Sitting Temp 97.8 F Temp Source Temporal Pulse 101 H Pulse Source NIBP Respiration 18 Pulse Oximetry (%) 100 Oxygen Delivery Method room air Are you having pain? No Intake Visit Reasons: f/u after feeling ill Accompanied by: Daughter Allergies Corticosteroids (Glucocorticoids) Allergy (Verified 10/03/24 15:00) Unknown Reaction metaxalone (From Skelaxin) Allergy (Verified 10/03/24 15:00) Unknown Reaction entex Allergy (Uncoded 10/03/24 15:00) Unknown Reaction Home Medications - Last Reconciled 10/16/24 by MARY Chavarria alprazolam 0.25 mg PO TID PRN amoxicillin-pot clavulanate 875-125 mg 1 tab PO BID 30 days aspirin 81 mg PO DAILY cetirizine 10 mg PO DAILY cyclobenzaprine 10 mg PO HS PRN fluticasone propionate 50 mcg/actuation 1 spray intranasal BID gabapentin 300 mg PO TID losartan 25 mg PO DAILY metoprolol succinate ER 50 mg PO DAILY naloxone 4 mg/actuation 4 mg intranasal Q2-3M PRN ondansetron 8 mg PO Q8HR PRN oxycodone-acetaminophen 5-325 mg 1 tab PO Q8HR PRN 30 days prochlorperazine maleate (Compazine) 10 mg PO Q6HR PRN Gastrointestinal Is the patient taking opioids for pain control?: Yes Bowel Protocol for Opioids Given: Yes Bowel Pattern: Regular Bowel Movement Aid(s): None Falls Fall Precaution Measures Taken: Patient in chair Nurse's Note: Patient is here for a 2 week follow up with labs for review. Scheduled for treatment today. [facility] Medical History Medical History Osteopenia Encounter for screening for osteoporosis Breast cancer, left Hypertension Surgical History Surgical History History of knee surgery bilateral History of lumpectomy of left breast History of cholecystectomy History of appendectomy History of hysterectomy History of foot surgery multiple bilateral Family History Family History Family/Other Breast cancer Social History Social History (Updated 02/08/24 @ 15:26 by MARY Chavarria) Smoking status: Former smoker What tobacco products do you use: cigarettes Smoking quit date/years:>15 years ago Within the past year, how often did you have a drink containing alcohol: monthly or less In the past 12 months, have you used illegal drugs or prescription drugs for non-medical reasons?: No Review of Systems ROS Details: All systems reviewed & no additional complaints except as documented General: Patient denied fevers, chills, rigors, weight loss or loss of appetite. Head: Patient denied any headaches or vision changes Thoracic: Patient denied any shortness of breath or cough or hemoptysis Cardiovascular patient denies any chest pain or leg edema GI: Patient denies any nausea vomiting rectal bleed diarrhea : Patient denied gross hematuria. Hematology: Patient denied any bleeding from any source. No easy bruising. Lymphatic: No enlarged LAP anywhere. Skin: Normal skin exam no rashes or suspicious lesions. Neurological patient denies any headache or dizziness or focal weakness or sensory changes. Physical Exam EXAM ECOG performance status 1. HEENT normocephalic atraumatic pupils are equal and round Neck supple without thyromegaly or any cervical lymphadenopathy. Chest clear to auscultation bilaterally without wheezing crackles or rhonchi Heart regular rate and rhythm S1-S2 without murmurs gallop or rub Abdomen soft nontender not distended without hepatosplenomegaly or masses clinically Extremities no edema of the lower extremities Skin without any suspicious rashes Neurological exam patient is cooperative alert and oriented x3 no focal deficits. Results - [facility] LAB RESULTS Corrected WBC 10.3 X10E3/uL (3.8-11.6) 10/15/24 09: Hgb 8.1 g/dL (11.8-15.4) L 10/15/24 09:10/15/24 Hct 23.9 % (34.0-46.4) L 10/15/24 09:59 10/15/24 MCV 98.0 fl (80-100) 10/15/24 09:10/15/24 RDW 18.9 % (11.9-15.3) H 10/15/24 09:10/15/24 Plt Count 254 x10E3/uL (150-450) 10/15/24 09:10/15/24 Sodium 138 mmol/L (136-145) 10/15/24 09:10/15/24 Potassium 4.2 mmol/L (3.5-5.1) 10/15/24 09:10/15/24 BUN 14 mg/dL (7-25) 10/15/24 09:10/15/24 Creatinine 0.75 mg/dL (0.60-1.20) 10/15/24 09:10/15/24 Glucose 100 mg/dL (70-100) 10/15/24 09:10/15/24 Est GFR (CKD-EPI) > 60.0 mL/Min 10/15/24 09:59 10/15/24 Calcium 9.3 mg/dL (8.6-10.3) 10/15/24 09:10/15/24 Total Bilirubin 0.3 mg/dl (0.3-1.0) 10/15/24 09:59 10/15/24 AST 18 U/L (13-39) 10/15/24 09:59 10/15/24 ALT 12 U/L (7-52) 10/15/24 09:10/15/24 Alkaline Phosphatase 93 U/L (34-104) 10/15/24 09:59 10/15/24 Iron 30 ug/dL (50-212) L 09/24/24 04:45 09/24/24 Iron Saturation 17.8 % (20-50) L 09/24/24 04:45 09/24/24 Ferritin 2730.0 ng/mL (11.0-306.8) H 09/24/24 04:45 Total Protein 6.4 gm/dL (6.4-8.9) 10/15/24 09:59 10/15/24 Albumin 3.4 gm/dL (3.5-5.7) L 10/15/24 09:59 10/15/24 Social Determinants of Health Screening SDOH last assessed in clinic: 10/16/24 Will the patient participate in the screening?: Yes Do you worry about having a steady place to live?: No In the past 12 months, have you had to go without electric, gas, oil, or water in your home?: No Have you or anyone in your house had to go without enough food to eat?: No Has lack of reliable transportation kept you from medical appointments or from doing things needed for daily living?: No Has anyone in your support network made you feel unsafe for any reason?: No Does the patient want assistance with any of the above?: No Dictated By: Kush Glez MD DD/ [id number] Signed By: <Electronically signed by Kush Glez MD> 10/16/24 1018 [facility] Work Phone: [phone] Progress note Author Kush Glez [facility] Date/TimeFebruary 2024 10:29am [facility] [place] [address] Cancer Center Note Signed Patient: Adelina Mir MR#: [id number] : 1960 Acct:[id number] Age/Sex: 64 / F Type: REG AMB Date of Service: 10/30/24 Copies to: Michael Holley MD~ Assessment & Plan A/P (1) Breast cancer, left: (2) Osteopenia: Plan Based on the biopsy done on 01/10/2024 it reveals pT1c, pNX, ER positive, TX positive, HER2/pat negative (1+), no DCIS, tumor size of the invasive ductal carcinoma is 1.7 cm at least with positive superior margin and no lymphovascularinvasion detected. No lymph nodes included in the biopsy. Patient was referredfor further surgical resection with bilateral mastectomy by Dr. Braun and Dr. Bustamante forreconstructive surgery. - Invitae gene testing done 03/01/24 was negative. -Bone density scan done on 02/15/2024 revealed osteopenia with a T-score of -1.4 in the left femoralneck. - Oncotype Dx score was done on the biopsy tissue based on unknown gwen statusat that time revealed: - If she is node-negative: Recurrence score of 5 with distant recurrence risk at 9 years of 3% withendocrine therapy alone with less than 1% benefit from the chemo. - If Node positive and premenopausal: Recurrence score will be 5 with distantrecurrence risk at 5 years 3% with her medicine better or endocrine therapy alone and chemo benefit 2.3%. -If she is postmenopausal and node positive the recurrence score is 5 with distant recurrence risk at 5 years with AI or tamoxifen alone is 1% and chemo benefit no apparent benefit noticed as it is less than 1% only. -If she has node positive of 4 or more lymph nodes then recurrence score is 5% and the distant recurrence at 9 years is 35% with AI and tamoxifen alone. -She underwent left breast mastectomy with sentinel node biopsy 05/16/2024, skin sparing with immediate reconstruction with tissue litharge supervisor by Dr. Bustamante. Surgical path from surgery done on 05/16/2024 revealed: A. Left axillary sentinel lymph node 1 out of 2 lymph nodes positive for metastatic carcinoma with mucinous features with extranodal extension again and 1 out of 2 lymph nodes. B. Lymph nodes in the left axillary sentinel lymph node 2 of 6 lymph nodes positive for metastatic carcinoma with mucinous features with extranodal extension. Left breast mastectomy revealed invasive ductal carcinoma with mucinous featuresgrade 2, 1.4 cm in greatest dimension. Ductal carcinoma in situ low-grade cribriform Lymphovascular invasion present Focal invasive carcinoma is present within 1 mm from inked inferior margin. Resection margins negative for DCIS with 5 mm from closest deep margin. Fibrocystic changes characterized by apocrine metaplasia and usual ductal hyperplasia with adenosisand microcalcification. Skin and nipple uninvolved by DCIS or invasive cancer Stage IIA, TNM stage is pT1c, pN1a. Number of lymph nodes with macrometastasis 3 and number of lymph nodes with isolated tumor cells 0 and number of lymph nodes with micrometastasis 0. Extranodal extension is present. ER positive over 90%, TX +80%, HER2 negative (1+), Ki-67 3% Treatment plan: After discussing the above findings from the surgical path with her and considering that she has extranodal extension of 3 out of 6 lymph nodes and lymphovascular invasion positive with 1.4 cm tumor that is grade 2, I recommended adjuvant chemo using dose dense AC followed by T followed by adjuvantradiation followed by adjuvant endocrine therapy. She agreed and signed the consent. Side effects were discussed with patient. 07/31/24: She is here for 1 week toxicity check after cycle 1 of dose dense AC obtained orgiven on 07/24/2024. She tolerated C1 without any complaints but has same postnasal drainage for more than 4 weeks evenbefore chemo without sore throat or fevers. She tried Benadryl and can not take steroids due to allergy to steroids. She is scheduled for cycle 2 on 08/08/2024. Labs on 07/30/2024 revealed normal CBC with normal WBC of 5.7 normal ANC of 4.2 and unremarkable CMP. - Proceeded with cycle 2 of dose dense AC on 08/08/2024. 08/21/24: She is here for evaluation prior to her C3 of the adjuvant ddAC scheduled on 08/22/24. She had mildfatigue and had nausea for 6 days after cycle 2 of dose dense AC but not vomiting and no chest painor shortness of breath or leg edema or abdominal pain or diarrhea. She has chronic peripheral neuropathy even before chemotherapy. No fevers or current infections. Her Zofran she took daily for 6 days after cycle 2 helped her nausea. PLAN: Proceed with C3 ddAC on 08/21/24 if labs meets criteria for chemo. Continue using calcium 500 mg twice daily and vitamin D 2000 unit daily for her mild osteopenia. Next DEXA scan is in 02/2026. I asked her to take her Zofran daily for the first week after each dose dense ACgiven. Weekly CBCs and CMP. Try pepcid and Zyrtec for postnasal drainage. Returns in 2 weeks for cycle 4 of dose dense AC. After she completes 4 cycles of ddAC she then can start weekly taxol 2 weeks after C4 of AC. 09/03/24: She continues to do fairly well with treatment and will receive cycle 4 ddAC this week. Her labs remain okay for continued treatment. She will follow-up in2 weeks with Dr. Bales with plans of starting her weekly Taxol at that visit as well. 09/17/24: Patient sent to ED for worsening symptoms, will likely hold off on initiation of Taxol this week given acute concerns. 09/19/24: She is admitted with a hemoglobin of 5.6 and found to have pneumonia as well as UTI during this admission evaluation with urine culture and was transfused 2 units of packed RBC and brought her hemoglobin up to 7.7 on 09/19/2024. Her platelet on admission on 09/17/2024 was 24K on 09/17/24 and they are 38K on 09/19/24 without evidence or signs of clinical bleeding. - Medical oncology was consulted for further recommendation regarding her anemia, thrombocytopenia and left breast cancer treatment considering that she missed her week 1 of the weekly Taxol scheduled on 09/18/24. Clinically she denied any melena or rectal bleeding or gross hematuria. She denies any hemoptysis however she has some right lower chest discomfort and cough likely from her pneumonia. She has some burning with her urination as well. 10/03/24: She is here for 2 weeks follow up after hospital admission for pneumonia, UTI, severe anemia and thrombocytopenia with hgb 5.6 and plt 24K (see above). Labs on 10/03/2024 revealed hemoglobin increased to 8.9 WBC is 9.8 and a plateletcount of is back tonormal 321. CMP are normal. She is here to resume her adjuvant chemo as she was supposed to start her week 1of adjuvant weekly Taxol prior to her recent admission. - She did not start her week1 of the weekly Taxol on 10/09/24 because of generalized weakness. 10/16/24: Patient is here for to start week1 of the weekly Taxol. No new complaints. Labs on 10/15/2024 revealed stable anemia hemoglobin 8.1 with normal WBC and platelet count and normal creatinine and LFTs. - Started weekly Taxol on 10/16/24. 10/30/24: Patient is here for week 3 of her adjuvant weekly Taxol out of the planned 12 weeks for her left breast cancer. No new complaints. No bleeding. no new masses or enlarged LNs. Labs on 10/29/2024 revealed stable anemia hemoglobin 8.9 with platelet 145 slightly lower than before and normal WBC and ANC. CMP is unremarkable. Iron studies revealed normal iron 81 with TIBC 321 normal iron saturation 25 and ferritin of 459 hide. She was given Cymbalta by Palliative for her neuropathy and it helped a lot. PLAN: Proceed with week 3 today. Start B1/B6/B12 50/50/500 mg for neuropathy history. Continue Cymbalta for neuropathy as it helped a lot. Stop oral iron since iron studies are normal. Continue calcium and vit D for osteopenia. Weekly CBC. CMP every 2 weeks. RTC in 2 weeks for week 3. Patient Instructions: proceed with treatment today follow up in 6 weeks CHEMO PLAN Treatment Plan Paclitaxel 80mg/m2 Weekly x 4 weeks Clinical Indication No Indication Cycle Number Last Admin 2 of 3 Cycle Day Next Admin 3 No Active Chemotherapy History of Present Illness SHAE Sahu is a 63-year-old nice lady with history of generalized anxiety disorder, ADHD, complex regional pain syndrome of the lower extremity, essential tremor, hypertension and osteoarthritis to has idiopathic polyneuropathy and scoliosis with history of intermittent marijuana use as needed for paincontrol who was referred to our medical oncology clinic by Dr. Braun for new findings of new leftbreast invasive ductal carcinoma grade 2, ER positive, TX positive, HER2/pat negative 1+, 1.7 cm at least invasive ductal carcinoma, negative for lymphovascular invasion, positive superior margin of the invasive cancer, no DCIS presents and no lymph nodes were obtained as per the biopsy done on 01/10/2024. Patient has been having intermittent nipple discharge with possible fistula from the left breast but no nipple bleeding for several months. She hadBI-RADS 3 screening mammogram in April 2023 whichwas followed by ultrasound patient underwent initial biopsy of the suspicious left breast lesion on 07/12/2023 however results of the path of that biopsy was consistent with fibrovascular adipose tissue with no pathology present. Patient continues to have nipple discharge and Dr. Braun plan to do a lumpectomy however because of cardiac workup and clearance needed another biopsy was done on left breast underultrasound guidance and it came back also inconclusive in November 2023 which led to excisional biopsy performed on 01/10/2024. The path results of that excisionalbiopsy done on 01/10/2024 is as follows: Pathological Diagnosis 01/10/2024: Mass, left breast, 7:00, lumpectomy: Invasive ductal carcinoma. Tumor Is 1.7 Cm In Greatest Dimension. Grade 2/ Moderately Differentiated. Tumor is present at the superior surgical margin. Tumor Is less than 0.1 Cm From The anterior and lateral surgical Margins. No Evidence Of Lymphovascular Invasion. Breast Hormone Profile ER: Positive TX: Positive HER2/pat by immunostain: Negative (1+) CAP CANCER CASE SUMMARY SPECIMEN Procedure: Excision [...] (when applicable) pM categories is based on informationavailable to the pathologist at the time the report is issued. As per the AJCC (Chapter 1, 8th Ed.) it is the managing physician's responsibility to establish the final pathologic stage based upon all pertinent information, including but potentially not limited to this pathology report. pT Category: pT1c pN Category: pNx Patient denies any family history of ovarian cancer however she has a cousin with breast cancer. She has a sister with multiple lumps under her breast but there were not cancerous. No known family history of ovarian cancer however hermom had mesothelioma. She does not know her father side because she does not know her biological father. 05/30/24: She is here for further planning of care after her left breast mastectomy and for results of the DEXA scan and Oncotype DX. Patient was sent to Dr. Bustamante for reconstructive breast surgeries as she is electing to go for bilateral mastectomy. She was also sent to our medical oncology clinic for recommendation regarding management of her new left breast cancer that is ER positive TX positive and HER2/pat negative but nolymph nodes were obtained as of this initial consult done on 02/08/2024. Surgery date yet to be determined [address] BRAUN. - Invitae gene testing done 03/01/24 was negative. -Bone density scan done on 02/15/2024 revealed osteopenia with a T-score of -1.4 in the left femoralneck. - Oncotype Dx score was done on the biopsy tissue based on unknown gwen statusat that time revealed: - If she is node-negative: Recurrence score of 5 with distant recurrence risk at 9 years of 3% withendocrine therapy alone with less than 1% benefit from the chemo. - If Node positive and premenopausal: Recurrence score will be 5 with distantrecurrence risk at 5 years 3% with her medicine better or endocrine therapy alone and chemo benefit 2.3%. -If she is postmenopausal and node positive the recurrence score is 5 with distant recurrence risk at 5 years with AI or tamoxifen alone is 1% and chemo benefit no apparent benefit noticed as it is less than 1% only. -If she has node positive of 4 or more lymph nodes then recurrence score is 5% and the distant recurrence at 9 years is 35% with AI and tamoxifen alone. -She underwent left breast mastectomy with sentinel node biopsy 05/16/2024, skin sparing with immediate reconstruction with tissue litharge supervisor by Dr. Bustamante. Surgical path from surgery done on 05/16/2024 revealed: A. Left axillary sentinel lymph node 1 out of 2 lymph nodes positive for metastatic carcinoma with mucinous features with extranodal extension again and 1 out of 2 lymph nodes. B. Lymph nodes in the left axillary sentinel lymph node 2 of 6 lymph nodes positive for metastatic carcinoma with mucinous features with extranodal extension. Left breast mastectomy revealed invasive ductal carcinoma with mucinous featuresgrade 2, 1.4 cm in greatest dimension. Ductal carcinoma in situ low-grade cribriform Lymphovascular invasion present Focal invasive carcinoma is present within 1 mm from inked inferior margin. Resection margins negative for DCIS with 5 mm from closest deep margin. Fibrocystic changes characterized by apocrine metaplasia and usual ductal hyperplasia with adenosisand microcalcification. Skin and nipple uninvolved by DCIS or invasive cancer Stage IIA, TNM stage is pT1c, pN1a. Number of lymph nodes with macrometastasis 3 and number of lymph nodes with isolated tumor cells 0 and number of lymph nodes with micrometastasis 0. Extranodal extension is present. ER positive over 90%, TX +80%, HER2 negative (1+), Ki-67 3% 07/31/24: She is here for 1 week toxicity check after cycle 1 of dose dense AC obtained orgiven on 07/24/2024. She tolerated C1 without any complaints but has same postnasal drainage for more than 4 weeks evenbefore chemo without sore throat or fevers. She tried Benadryl and can not take steroids due to allergy to steroids. She is scheduled for cycle 2 on 08/08/2024. Labs on 07/30/2024 revealed normal CBC with normal WBC of 5.7 normal ANC of 4.2 and unremarkable CMP. 08/21/24: She is here for evaluation prior to her C3 of the adjuvant ddAC scheduled on 08/22/24. She had mildfatigue and had nausea for 6 days after cycle 2 of dose dense AC but not vomiting and no chest painor shortness of breath or leg edema or abdominal pain or diarrhea. She has chronic peripheral neuropathy even before chemotherapy. No fevers or current infections. Her Zofran she took daily for 6 days after cycle 2 helped her nausea. 14 point review of systems was obtained and was negative. 09/03/24: She presents for cycle 4 ddAC. She continues with fatigue and dyspnea if she exerts herself, otherwise no chest pain or shortness of breath at rest. No change in her neuropathy with treatment. Her nausea has better controlled now that she is taking her antiemetics regularly. She is eating and drinking ok anddenies vomiting, diarrhea, or constipation. She denies other new concerns as well. Her labs remain okay for continued treatment. 09/17/24: She presents to clinic as an add-on for worsening symptoms. Her daughter is concerned that she has pneumonia as she has been having shortness of breath and not eating much at all. Vitals today note significant hypotension and decreasedheart rate. Her oxygen levels on arrival dropped between 70s/80sand she was placed on supplemental oxygen, up to 6 L in office before her sats improved intothe 90s. She has attempted to give a urine sample as she has concern for UTI aswell, however was not able to go. Given acute symptoms, we have decided to sendher to the ED for further evaluation. 09/19/24: She is admitted with a hemoglobin of 5.6 and found to have pneumonia as well as UTI during this admission evaluation with urine culture and was transfused 2 units of packed RBC and brought her hemoglobin up to 7.7 on 09/19/2024. Her platelet on admission on 09/17/2024 was 24K on 09/17/24 and they are 38K on 09/19/24 without evidence or signs of clinical bleeding. - Medical oncology was consulted for further recommendation regarding her anemia, thrombocytopenia and left breast cancer treatment considering that she missed her week 1 of the weekly Taxol scheduled on 09/18/24. Clinically she denied any melena or rectal bleeding or gross hematuria. She denies any hemoptysis however she has some right lower chest discomfort and cough likely from her pneumonia. She has some burning with her urination as well. 10/03/24: She is here for 2 weeks follow up after hospital admission for pneumonia, UTI, severe anemia and thrombocytopenia with hgb 5.6 and plt 24K (see above). Labs on 10/03/2024 revealed hemoglobin increased to 8.9 WBC is 9.8 and a plateletcount of is back tonormal 321. CMP are normal. She is here to resume her adjuvant chemo as she was supposed to start her week 1of adjuvant weekly Taxol prior to her recent admission. She feels much better. No more SOB and no CP or bleeding from any source. 10/16/24: Patient is here for to start week1 of the weekly Taxol. No new complaints. Labs on 10/15/2024 revealed stable anemia hemoglobin 8.1 with normal WBC and platelet count and normal creatinine and LFTs. 10/30/24: Patient is here for week 3 of her adjuvant weekly Taxol out of the planned 12 weeks for her left breast cancer. No new complaints. No bleeding. no new masses or enlarged LNs. Labs on 10/29/2024 revealed stable anemia hemoglobin 8.9 with platelet 145 slightly lower than before and normal WBC and ANC. CMP is unremarkable. Iron studies revealed normal iron 81 with TIBC 321 normal iron saturation 25 and ferritin of 459 hide. She was given Cymbalta by Palliative for her neuropathy and it helped a lot. Intake Vitals/Pain Assessment 10/30/24 10:03 Weight 60.781 kg BP 117/77 Blood Pressure Location Rt brachial Position Sitting Temp 97.4 F L Temp Source Temporal Pulse 82 Pulse Source NIBP Respiration 20 Pulse Oximetry (%) 98 Oxygen Delivery Method room air Are you having pain? No Intake Visit Reasons: Follow Up/Treatment Accompanied by: Daughter Allergies Corticosteroids (Glucocorticoids) Allergy (Verified 10/30/24 10:07) Unknown Reaction metaxalone (From Skelaxin) Allergy (Verified 10/30/24 10:07) Unknown Reaction entex Allergy (Uncoded 10/30/24 10:07) Unknown Reaction Home Medications - Last Reconciled 10/30/24 by MARY Chavarria alprazolam 0.25 mg PO TID PRN aspirin 81 mg PO DAILY cetirizine 10 mg PO DAILY cyclobenzaprine 10 mg PO HS PRN duloxetine 30 mg PO QDAY 30 days fluticasone propionate 50 mcg/actuation 1 spray intranasal BID gabapentin 300 mg PO TID losartan 25 mg PO DAILY metoprolol succinate ER 50 mg PO DAILY naloxone 4 mg/actuation 4 mg intranasal Q2-3M PRN ondansetron 8 mg PO Q8HR PRN oxycodone-acetaminophen 5-325 mg 1 tab PO Q6HR PRN 30 days prochlorperazine maleate (Compazine) 10 mg PO Q6HR PRN Gastrointestinal Is the patient taking opioids for pain control?: Yes Bowel Protocol for Opioids Given: Yes Bowel Pattern: Regular Bowel Movement Aid(s): None Falls Fall Precaution Measures Taken: Patient in chair Nurse's Note: Patient is here for a 2 week follow up with labs for review, prior to treatment today. No concerns voiced at time of intake. [facility] Medical History Medical History (Updated 10/20/24 @ 14:33 by Elda Hurtado, SOLA) Breast cancer, left Immunosuppressed due to chemotherapy Pneumonia Bacteremia due to Streptococcus pneumoniae Acute anemia Pancytopenia UTI (urinary tract infection) Pneumonia Osteopenia Encounter for screening for osteoporosis Hypertension Surgical History Surgical History History of knee surgery bilateral History of lumpectomy of left breast History of cholecystectomy History of appendectomy History of hysterectomy History of foot surgery multiple bilateral Family History Family History Family/Other Breast cancer Social History Social History Smoking status: Former smoker What tobacco products do you use: cigarettes Smoking quit date/years:>15 years ago Within the past year, how often did you have a drink containing alcohol: monthly or less In the past 12 months, have you used illegal drugs or prescription drugs for non-medical reasons?: No Review of Systems ROS Details: All systems reviewed & no additional complaints except as documented General: Patient denied fevers, chills, rigors, weight loss or loss of appetite. Head: Patient denied any headaches or vision changes Thoracic: Patient denied any shortness of breath or cough or hemoptysis Cardiovascular patient denies any chest pain or leg edema GI: Patient denies any nausea vomiting rectal bleed diarrhea : Patient denied gross hematuria. Hematology: Patient denied any bleeding from any source. No easy bruising. Lymphatic: No enlarged LAP anywhere. Skin: Normal skin exam no rashes or suspicious lesions. Neurological patient denies any headache or dizziness or focal weakness or sensory changes. Physical Exam EXAM ECOG performance status 1. HEENT normocephalic atraumatic pupils are equal and round Neck supple without thyromegaly or any cervical lymphadenopathy. Chest clear to auscultation bilaterally without wheezing crackles or rhonchi Heart regular rate and rhythm S1-S2 without murmurs gallop or rub Abdomen soft nontender not distended without hepatosplenomegaly or masses clinically Extremities no edema of the lower extremities Skin without any suspicious rashes Neurological exam patient is cooperative alert and oriented x3 no focal deficits. Results - [facility] ([facility]) LAB RESULTS Corrected WBC 4.5 X10E3/uL (3.8-11.6) 10/29/24 13: 5 Hgb 8.9 g/dL (11.8-15.4) L 10/29/24 13:10/29/24 Hct 26.1 % (34.0-46.4) L 10/29/24 13:10/29/24 MCV 99.0 fl (80-100) 10/29/24 13:10/29/24 RDW 19.9 % (11.9-15.3) H 10/29/24 13:10/29/24 Plt Count 145 x10E3/uL (150-450) L 10/29/24 13: Sodium 137 mmol/L (136-145) 10/29/24 13:10/29/24 Potassium 3.9 mmol/L (3.5-5.1) 10/29/24 13:10/29/24 BUN 15 mg/dL (7-25) 10/29/24 13:10/29/24 Creatinine 0.77 mg/dL (0.60-1.20) 10/29/24 13:30 10/29/24 Glucose 109 mg/dL (70-100) H 10/29/24 13:30 10/29/24 Est GFR (CKD-EPI) > 60.0 mL/Min 10/29/24 13:10/29/24 Calcium 9.7 mg/dL (8.6-10.3) 10/29/24 13:10/29/24 Total Bilirubin 0.5 mg/dl (0.3-1.0) 10/29/24 13:10/29/24 AST 25 U/L (13-39) 10/29/24 13:10/29/24 ALT 16 U/L (7-52) 10/29/24 13:10/29/24 Alkaline Phosphatase 67 U/L (34-104) 10/29/24 13:10/29/24 Iron 81 ug/dL (50-212) 10/29/24 13:10/29/24 Iron Saturation 25.2 % (20-50) 10/29/24 13:30 10/29/24 Ferritin 459.1 ng/mL (11.0-306.8) H 10/29/24 13:30 10/06 01/26 Total Protein 6.9 gm/dL (6.4-8.9) 10/29/24 13:10/29/24 Albumin 3.9 gm/dL (3.5-5.7) 10/29/24 13:30 10/29/24 Social Determinants of Health Screening SDOH last assessed in clinic: 10/30/24 Will the patient participate in the screening?: Yes Do you worry about having a steady place to live?: No In the past 12 months, have you had to go without electric, gas, oil, or water in your home?: No Have you or anyone in your house had to go without enough food to eat?: No Has lack of reliable transportation kept you from medical appointments or from doing things needed for daily living?: No Has anyone in your support network made you feel unsafe for any reason?: No Does the patient want assistance with any of the above?: No Dictated By: Kush Glez MD DD/ 1000 Signed By: <Electronically signed by Kush Glez MD> 10/30/24 1029 [facility] Work Phone: Evaluation + Plan note Future Appointments Appointment Date:04/20/2023 03:20:00 PM Scheduled Provider:Michael Holley MD Location:[facility] (formerly [facility])[3] Appointment Type: Open Future Scheduled Tests Radiology* US Breast Unilateral Lt Complete 03/27/23 * US Breast [facility] Appointment Date:07/24/2023 01:40:00 PM Scheduled Provider:Michael Holley MD Location:[facility] ([facility]3] Appointment Type: Open Appointment Date:08/09/2023 01:00:00 PM Scheduled Provider:Roshan BRAUN MD Location:[facility] Appointment Type: Established 15 Future Scheduled Tests Radiology* US Breast Unilateral Lt Complete 03/27/23 * US Breast Unilateral Rt Complete 03/27/23 * MA Mamm Diag w/CAD if perf and 3D Manny 09/20/23 [facility] Evaluation + Plan note Future Appointments Appointment Date:10/02/2023 01:00:00 PM Scheduled Provider:Michael Holley MD Location:[facility] Appointment Type: Open Future Scheduled Tests Radiology* US Breast Unilateral Lt Complete 03/27/23 * US Breast Unilateral Rt Complete 03/27/23 * MA Mamm Diag w/CAD if perf and 3D Manny 09/20/23 [facility] Evaluation + Plan note Future Appointments Appointment Date:10/31/2023 02:30:00 PM Scheduled Provider:Osmin PAUL [facility] Follow Up (FT) Appointment Date:11/27/2023 02:15:00 PM Scheduled Provider:Michael Holley MD Location:[facility] Appointment Type: Open Future Scheduled Tests Laboratory* Lipid Panel 09/07/23 Radiology* US Breast Unilateral Lt Complete 03/27/23 * US Breast Unilateral Rt Complete 03/27/23 * MA Mamm Diag w/CAD if perf and 3D Manny [facility]20[facility]23 [facility] Appointment Date:11/27/2023 02:15:00 PM Scheduled Provider:Michael Holley MD Location:[facility] Appointment Type: Open Future Scheduled Tests Laboratory* Lipid Panel 09/07/23 Radiology* US Breast Unilateral Lt Complete 03/27/23 * US Breast Unilateral Rt Complete 03/27/23 * MA Mamm Diag w/CAD if perf and 3D Manyn 09[facility]20[facility]23 [facility] Appointment Date:02/27/2024 01:00:00 PM Scheduled Provider:Michael Holley MD Location:[facility] Appointment Type: Open Future Scheduled Tests Laboratory* Lipid Panel 09/07/23 Radiology* US Breast Unilateral Lt Complete 03/27/23 * US Breast Unilateral Rt Complete 03/27/23 * MA Mamm Diag w/CAD if perf and 3D Manny 09/20/23 [facility] Movigoaluation + Plan note Future Appointments Appointment Date:01/31/2024 04:00:00 PM Scheduled Provider:Roshan BRAUN MD Location:[facility] Appointment Type: Post Op 15 Appointment Date:02/27/2024 01:00:00 PM Scheduled Provider:Michael Holley MD Location:[facility] Appointment Type: Open Future Scheduled Tests Laboratory* Lipid Panel 09/07/23 Radiology* US Breast Unilateral Lt Complete 03/27/23 * US Breast Unilateral Rt Complete 03/27/23 * MA Mamm Diag w/CAD if perf and 3D Manny 09/20/23 [facility] evaluation + Plan note Future Appointments Appointment Date:02/27/2024 01:00:00 PM Scheduled Provider:Michael Holley MD Location:[facility] Appointment Type: Open Appointment Date:02/27/2024 03:00:00 PM Scheduled Provider:Roshan BRAUN MD Location:[facility] Appointment Type: Established 15 Future Scheduled Tests Laboratory* Lipid Panel 09/07/23 Radiology* US Breast Unilateral Lt Complete 03/27/23 * US Breast Unilateral Rt Complete 03/27/23 * MA Mamm Diag w/CAD if perf and 3D Manny 09/20/23 [facility] evaluation + Plan note Future Appointments Appointment Date:05/21/2024 02:00:00 PM Scheduled Provider:Michael Holley MD Location:[facility] Appointment Type: Open Future Scheduled Tests Laboratory* Lipid Panel 09/07/23 Radiology* US Breast Unilateral Lt Complete 03/27/23 * US Breast Unilateral Rt Complete 03/27/23 * MA Mamm Diag w/CAD if perf and 3D Manny 09/20/23 [facility] evaluation + Plan note Future Appointments Appointment Date:05/21/2024 02:00:00 PM Scheduled Provider:Michael Holley MD Location:[facility] Appointment Type: Open Future Scheduled Tests Laboratory* Lipid Panel 09/07/23 Radiology* MA Mamm Diag w/CAD if perf and 3D Manny 09/20/23 [facility] evaluation + Plan note Future Appointments Appointment Date:05/16/2024 09:00:00 AM Scheduled Provider: [facility] Type:NM Lymphoscintigraphy (FT) Appointment Date:05/16/2024 10:30:00 AM Scheduled Provider: Location:[facility] Appointment Type:Surgery FT Appointment Date:05/21/2024 02:00:00 PM Scheduled Provider:Michael Holley MD Location:[facility] Appointment Type: Open Future Scheduled Tests Laboratory* Lipid Panel 09/07/23 Radiology* NM Lymphoscintigraphy 05/16/24 * MA Mamm Diag w/CAD if perf and 3D Manny 09/20/23 [facility] evaluation + Plan note Future Appointments Appointment Date:07/09/2024 01:30:00 PM Scheduled Provider: Location:[facility] Appointment Type:Surgical PAT FT Appointment Date:07/22/2024 08:00:00 AM Scheduled Provider: Location:[facility] Appointment Type:Surgery FT Appointment Date:08/06/2024 01:15:00 PM Scheduled Provider:Michael Holley MD Location:[facility] Appointment Type: Open Appointment Date:06/16/2025 01:00:00 PM Scheduled Provider: Location:[facility] Appointment Type: Medicare Wellness Subsequent Future Scheduled Tests Laboratory* Lipid Panel 09/07/23 Radiology* MA Mamm Diag w/CAD if perf and 3D Manny 09/20/23 [facility] evaluation + Plan note Future Appointments Appointment Date:07/22/2024 08:00:00 AM Scheduled Provider: Location:[facility] Appointment Type:Surgery FT Appointment Date:08/06/2024 01:15:00 PM Scheduled Provider:Michael Holley MD Location:[facility] Appointment Type: Open Appointment Date:06/16/2025 01:00:00 PM Scheduled Provider: Location:[facility] Appointment Type: Medicare Wellness Subsequent Future Scheduled Tests Laboratory* Lipid Panel 09/07/23 Radiology* MA Mamm Diag w/CAD if perf and 3D Manny 09/20/23 [facility] evaluation + Plan note Future Appointments Appointment Date:08/06/2024 01:15:00 PM Scheduled Provider:Michael Holley MD Location:[facility] Appointment Type: Open Appointment Date:08/06/2024 02:20:00 PM Scheduled Provider:Roshan BRAUN MD Location:[facility] Appointment Type: Post Op 15 Appointment Date:06/16/2025 01:00:00 PM Scheduled Provider: Location:[facility] Appointment Type: Medicare Wellness Subsequent Future Scheduled Tests Laboratory* Lipid Panel 09/07/23 Radiology* MA Mamm Diag w/CAD if perf and 3D Manny 09/20/23 [facility] evaluation + Plan note Future Appointments Appointment Date:11/05/2024 01:00:00 PM Scheduled Provider:Michael Holley MD Location:[facility] Appointment Type: Open Appointment Date:06/16/2025 01:00:00 PM Scheduled Provider: Location:[facility] Appointment Type: Medicare Wellness Subsequent Future Scheduled Tests Laboratory* Lipid Panel 09/07/23 Radiology* MA Mamm Diag w/CAD if perf and 3D Manny 09/20/23 [facility] evaluation + Plan note Future Appointments Appointment Date:06/11/2024 02:30:00 PM Scheduled Provider: Location:[facility] Appointment Type: Medicare Wellness Initial Appointment Date:06/11/2024 03:30:00 PM Scheduled Provider:Michael Holley MD Location:[facility] Appointment Type: Open Future Scheduled Tests Laboratory* Lipid Panel 09/07/23 Radiology* MA Mamm Diag w/CAD if perf and 3D Manny 09/20/23 [facility] evaluation + Plan note Future Appointments Appointment Date:06/30/2025 01:20:00 PM Scheduled Provider: Location:[facility] Appointment Type:FM Lab Draw Appointment Date:06/17/2026 02:30:00 PM Scheduled Provider: Location:[facility] Appointment Type: Medicare Wellness Subsequent Future Scheduled Tests Laboratory* Lipid Panel 06/16/25 [facility] evaluation noteNo assessment information available [facility] Work Phone: Evaluation note* Diagnosis Onset Date Resolution Status Breast cancer, left acuteEncounter for screening for osteoporosisacute [facility] Work Phone: History and physical note Author Joe Garcia [facility]onNote Date/TimeJanuary 2024 4:55pm [place] [address] Hospitalist H&P Signed Patient: Adelina Mir MR#: [id number] : 1960 Acct:[id number] Age/Sex: 63 / F Adm Date: 5 Loc: Room: 5N6123-2 Type: ADM IN Attending Dr: Joe Garcia MD Copies to: MD Michael Herrmann MD~ HPI DATE OF EXAMINATION: 09/17/24 CHIEF COMPLAINT: SOB HISTORY OF PRESENT ILLNESS: Patient is a 63-year-old female with medical history as listed below, including recent diagnosis ofbreast cancer, underwent surgery, currently getting chemotherapy, her private oncologist as outpatient Dr. Glez. Patient had visit at the cancer center and upon checking her vital signs with patient being not eating and short of breath, her oxygen saturation around 70% on room air, heart ratein the 30s, blood pressure 60s over 45. Patient was sent to the ER forfurther evaluation and management. Patient reports that she has been feeling sick with cough and congestion over the past severalweeks, however her cough and sputum production has increased over the past several days, clear in color, she does report chills but no fever at home she was placed on oxygen here up to 6 L in the ER to maintain appropriate saturation. Reports symptoms of Pleurisy . She presented hypotensive with blood pressure 60s over 40s which improved with hydration. Patient reports that her last chemotherapywas 2024. She denies nausea or vomiting or diarrhea. She was given IV antibiotics in the ER, blood cultures were collected, CT PE protocol was done with no evidence of PE however it does show consolidation on the right middle and lower lobes. Her white count 4.8, however her hemoglobin also found to be low at 5.6, patient denies any history of blood transfusion, patient denies any signsor symptoms of bleeding, denies any melena or bleeding per rectum. Also noted that she has thrombocytopenia with platelet count at 24, no signs of active bleeding. Noted to have ROSAMARIA on admission withhypokalemia and hyponatremia. She was given IV fluids and IV antibiotics in the ER, ordered 2 unitsof blood in the ER, decision was made to admit her for further evaluation and management. Review of Systems Review of Systems Review of systems: 10 systems are reviewed and are negative except as mentioned elsewhere in the documentation [facility] Medical History Osteopenia Encounter for screening for osteoporosis Breast cancer, left Hypertension Surgical History History of knee surgery bilateral History of lumpectomy of left breast History of cholecystectomy History of appendectomy History of hysterectomy History of foot surgery multiple bilateral Family History Family/Other Breast cancer Social History Smoking Status: Former smoker Tobacco Type: cigarettes Substance Use Type: Marijuana Substance Abuse Comment: marijuana medical Meds Medications and Allergies Allergies Corticosteroids (Glucocorticoids) Allergy (Verified 09/17/24 12:38) Unknown Reaction metaxalone (From Skelaxin) Allergy (Verified 09/17/24 12:38) Unknown Reaction entex Allergy (Uncoded 02/08/24 15:18) Unknown Reaction Home Medications alprazolam 0.25 mg tablet 0.25 mg PO TID PRN anxiety 02/08/24 [History Confirmed 09/17/24] aspirin 81 mg tablet,delayed release 81 mg PO DAILY 02/08/24 [History Confirmed 09/17/24] cyclobenzaprine 10 mg tablet 10 mg PO HS 02/08/24 [History Confirmed 09/17/24] gabapentin 300 mg capsule 300 mg PO TID 02/08/24 [History Confirmed 09/17/24] losartan 50 mg-hydrochlorothiazide 12.5 mg tablet 1 tab PO DAILY 02/08/24 [History Confirmed 09/17/24] ondansetron 8 mg disintegrating tablet 8 mg PO Q8HR PRN nausea and vomiting #30 tabs 05/30/24 [Rx Confirmed 09/17/24] prochlorperazine maleate 10 mg tablet (Compazine) 10 mg PO Q6HR PRN nausea and vomiting #30 tabs 05/30/24 [Rx Confirmed 09/17/24] naloxone 4 mg/actuation nasal spray 4 mg intranasal Q2-3M PRN opioid overdose #2ea 08/22/24 [Rx Confirmed 09/17/24] oxycodone-acetaminophen 5 mg-325 mg tablet 1 tab PO Q8HR PRN pain 30 days #90 tabs 08/23/24 [Rx Confirmed 09/17/24] cetirizine 10 mg tablet 10 mg PO DAILY 09/17/24 [History Confirmed 09/17/24] fluticasone propionate 50 mcg/actuation nasal spray,suspension 1 spray intranasal BID 09/17/24 [History Confirmed 09/17/24] Exam Physical Exam Vital Signs: Temp Pulse Resp BP Pulse Ox O2 Del Method O2 Flow Rate 98.9 F 69 18 98/51 L 91 L Nasal Cannula 6 09/17/24 12:33 09/17/24 14:30 09/17/24 14:30 09/17/24 14:30 09/17/24 14:30 09/17/24 14:30 09/17/24 14:30 Narrative: Const General: cooperative, ill and tired appearing, cachectic appearing HEENT Dry oropharyngeal mucosa without any ulcers or exudates Eyes: Conjunctiva normal Pulmonary Auscultation: Diminished breath sounds, right-sided rhonchi, no wheezes Chest: catheter noted on R chest Cardiovascular Rate: normal rate Rhythm: regular rhythm Heart Sounds: S1 normal, S2 normal and no murmurs GI Inspection: non-distended Palpation: soft, not firm and nontender. No rigidity or rebound. Deferred Neuro General: alert, awake and oriented x3. No obvious new focal deficit Musculoskeletal: normal range of motion Extrem General: no cyanosis, no pedal edema Psych Appearance: appropriate affect. Grossly normal, pleasant Results - Hospitalist H&P Lab Results Labs: Laboratory Last Values Corrected WBC 4.8 X10E3/uL (3.8-11.6) 09/17/24 13:00 Uncorrected WBC Count 4.8 x10E3/uL (3.8-11.6) 09/17/24 13:00 RBC 1.71 x10E6/uL (3.60-5.00) L 09/17/24 13:00 Hgb 5.6 g/dL (11.8-15.4) L 09/17/24 13:00 Hct 16.0 % (34.0-46.4) L* 09/17/24 13:00 MCV 93.2 fl (80-100) 09/17/24 13:00 MCH 32.7 pg (24.7-34.3) 09/17/24 13:00 MCHC 35.1 g/dL (32.0-35.0) H 09/17/24 13:00 RDW 14.9 % (11.9-15.3) 09/17/24 13:00 Plt Count 24 x10E3/uL (150-450) L* 09/17/24 13:00 MPV 10.3 fl (6.3-10.7) 09/17/24 13:00 Neut % (Auto) 73.2 % (.) 09/17/24 13:00 Lymph % (Auto) 3.2 % (.) 09/17/24 13:00 [place] % (Auto) 23.5 % (.) 09/17/24 13:00 Eos % (Auto) 0.1 % (.) 09/17/24 13:00 Baso % (Auto) 0.0 % (.) 09/17/24 13:00 Nucleat RBC Rel Count 0.2 /100 WBC (0-0.5) 09/17/24 13:00 Neut # (Auto) 3.5 x10E3/uL (1.8-7.7) 09/17/24 13:00 Lymph # (Auto) 0.2 x10E3/uL (1.00-4.8) L 09/17/24 13:00 [place] # (Auto) 1.1 x10E3/uL (0.0-0.8) H 09/17/24 13:00 Eos # (Auto) 0.0 x10E3/uL (0.0-0.45) 09/17/24 13:00 Baso # (Auto) 0.0 x10E3/uL (0.0-0.2) 09/17/24 13:00 Lymphocytes % 2 % (18-42) L 09/17/24 13:00 Monocytes % 23 % (2-11) H 09/17/24 13:00 Eosinophils % 2 % (1-3) 09/17/24 13:00 Basophils % 0 % (0-2) 09/17/24 13:00 Segmented Neutrophils 73 % (50-70) H 09/17/24 13:00 Monocyte Dist Width 29.44 % (0.00-20.00) H 09/17/24 13:00 Platelet Estimate Decreased (Normal) 09/17/24 13:00 Plt Morphology Comment Normal (Normal) 09/17/24 13:00 RBC Morphology N/A 09/17/24 13:00 Polychromasia Slight 09/17/24 13:00 Hypochromasia Moderate 09/17/24 13:00 Poikilocytosis Slight 09/17/24 13:00 Anisocytosis Slight 09/17/24 13:00 Microcytosis Slight 09/17/24 13:00 Ovalocytes Slight 09/17/24 13:00 PT 15.2 Seconds (9.0-12.9) H 09/17/24 13:00 INR 1.3 09/17/24 13:00 PHA Creatinine Clear 35.84 09/17/24 13:00 Sodium 133 mmol/L (136-145) L 09/17/24 13:00 Potassium 3.0 mmol/L (3.5-5.1) L 09/17/24 13:00 Chloride 94 mmol/L (98-107) L 09/17/24 13:00 Carbon Dioxide 26.4 mmol/L (21.0-31.0) 09/17/24 13:00 Anion Gap 15.6 mEq/L (6.0-15.0) H 09/17/24 13:00 BUN 60 mg/dL (7-25) H 09/17/24 13:00 Creatinine 1.49 mg/dL (0.60-1.20) H 09/17/24 13:00 Est GFR (CKD-EPI) 39.473 mL/Min 09/17/24 13:00 Glucose 172 mg/dL (70-100) H 09/17/24 13:00 Lactic Acid 1.2 mmol/L (0.5-2.2) 09/17/24 13:00 Calcium 8.8 mg/dL (8.6-10.3) 09/17/24 13:00 Total Creatine Kinase 101 U/L (30-223) 09/17/24 13:00 Troponin I High Sens 44.2 pg/mL (0.0-15.0) H 09/17/24 13:00 B-Natriuretic Peptide 261.0 pg/mL (5-100) H 09/17/24 13:00 Urine Color Yellow (Yellow) 09/17/24 13:43 Urine Appearance Cloudy (Clear) A 09/17/24 13:43 Urine pH 5.5 (5.0-9.0) 09/17/24 13:43 Ur Specific [place] 1.015 (1.001-1.030) 09/17/24 13:43 Urine Protein 50 mg/dL (Negative) H 09/17/24 13:43 Urine Glucose (UA) 70 mg/dL (Normal) H 09/17/24 13:43 Urine Ketones Negative (Negative) 09/17/24 13:43 Urine Occult Blood 2+ (Negative) H 09/17/24 13:43 Urine Nitrite Negative (Negative) 09/17/24 13:43 Urine Bilirubin Negative (Negative) 09/17/24 13:43 Urine Urobilinogen 3 mg/dL (Normal) H 09/17/24 13:43 Ur Leukocyte Esterase 4+ (Negative) H 09/17/24 13:43 Urine RBC 20-49 /HPF (0-4) H 09/17/24 13:43 Urine WBC Innumerable /HPF (0-4) H 09/17/24 13:43 Urine WBC Clumps Many /LPF (None Seen) H 09/17/24 13:43 Ur Squamous Epith Cells 1-2 /HPF (0-2) 09/17/24 13:43 U Non-Squamous Epi Cells 1-2 /HPF (None Seen) H 09/17/24 13:43 Urine Bacteria 3+ /HPF (None Seen) H 09/17/24 13:43 Hyaline Casts 9-19 /LPF (0-8) H 09/17/24 13:43 Urine Mucus Rare /LPF 09/17/24 13:43 Blood Type O Positive 09/17/24 14:28 Crossmatch (AHG) See Detail 09/17/24 14:28 Assessment & Plan Assessment/Plan (1) Pancytopenia: (2) UTI (urinary tract infection): (3) Pneumonia: (4) Acute anemia: Plan Acute hypoxic respiratory failure secondary to right-sided pneumonia (RML and RLL) Known recent diagnosis of breast cancer on chemo (4 rounds, last dose 09/05/24) Hypotensive on admission concern for sepsis PE ruled out Immunocompromised state -Afebrile, has chills, no leukocytosis -CT chest no PE, has consolidation RML and RLL -Start Cefepime IV dosing per pharmacy. Doxycycline for atypical coverage. -Antitussive agents as needed as directed -Follow-up blood cultures and sputum culture -Oxygen supplements as needed -Monitor for fever/leukocytosis ROSAMARIA likely secondary to volume depletion due to poor oral intake Acute cystitis Hyponatremia/hypokalemia/metabolic alkalosis -Follow up urine culture -Gentle IV hydration as directed -Avoid ACEI, ARB for now -Optimized electrolytes to keep K>4, Mg>2, P>3 -Avoid nephrotoxic medications Acute anemia Acute thrombocytopenia -Likely chemo induced -Ordered 2 units of blood in ER. Serial H/H -PLT count 24 on admission. no signs of overt GI bleed or any active bleed. monitor for now. Elevated troponin likely demand ischemia due to ROSAMARIA, infectious process, severe volume depletion -Trend trop -Recet Echo seems normal EF and LV function. Home medications resumed as appropriate Diet: regular DVT ppx: SCDs GI ppx: PPI Code status: Full Status: inpatient Discussed with patient and family at bedside. All questions answered. In agreement with the above plan Joe Dinero MD Internal Medicine Hospitalist Attending Physician IP vs OBS Justification Based on differential dx, clinical care plan, and risk of adverse events, if untreated, in my clinical judgement this patient requires an acute care setting as: INPATIENT because of an expectation ofan over 2 midnight stay. Estimated length of stay (# of days): 3 Documented By: Joe Garcia MD 09/17/24 15 16 Signed By: <Electronically signed by Joe Garcia MD> 09/17/24 1751 [facility] Work Phone: Hospital course Narrative No data available for this section [facility] Discharge instructions No data available for this section [facility] Discharge instructions Additional Instructions DISCHARGE INSTRUCTIONS FOR PLASTIC/RECONSTRUCTIVE SURGERY YOUR ACTIVITY MAY INCLUDE -Going up and down stairs slowly. -Walking around the house or outside if the weather is satisfactory. -No driving until you are seen in our office and cleared for driving. -No lifting more than 10 pounds for 4 weeks from the date of surgery. WOUND CARE -NO smoking as it may compromise your wound healing. -Do not remove dressing until your post-operative appointment. - - - -Keep your incision dry for 48 hours then, you may shower (no tub baths) and allow water to flow over your incision. - -It is common to feel pulling or sharp sticking sensations in the area of the incision. PLEASE NOTIFY OUR OFFICE at [phone] if you: -Develop a fever of 101 degrees Fahrenheit, or higher. -Have increasing pain. -See redness or swelling around the incision. MEDICATION -Medications per Medication Reconciliation List. -Over the counter medications such as Acetaminophen and others may be used as directed for pain unless prescription was provided. Do NOT exceed 4 grams of Acetaminophen in a 24 hour period. -DO NOT use ibuprofen or NSAIDs unless directed by physician, as they may increase risk of bleeding. OTHER INSTRUCTIONS -No smoking as this increases post-operative complication rate. FOLLOW UP -Call the office at [phone] for a follow up appointment 1 week. * AFTER HOURS PHONE NUMBER [phone] *[facility] Work Phone: Progress note No data available for this section [facility] Author Kush Glez [facility] May 30, 2024 3:05pmNote Date/TimeSept2023 1:59pmB[facility] [place] [address] Cancer Center Note Signed Patient: Adelina Mir MR#: [id number] : 1960 Acct:[id number] Age/Sex: 63 / F Type: REG AMB Date of Service: 05/30/24 Copies to: Michael Holley MD~ Assessment & Plan A/P (1) Breast cancer, left: (2) Encounter for screening for osteoporosis: Plan Based on the biopsy done on 01/10/2024 it reveals pT1c, pNX, ER positive, TX positive, HER2/pat negative (1+), no DCIS, tumor size of the invasive ductal carcinoma is 1.7 cm at least with positive superior margin and no lymphovascularinvasion detected. No lymph nodes included in the biopsy. Patient was referredfor further surgical resection with bilateral mastectomy by Dr. Braun and Dr. Bustamante forreconstructive surgery. - Invitae gene testing done 03/01/24 was negative. -Bone density scan done on 02/15/2024 revealed osteopenia with a T-score of -1.4 in the left femoralneck. - Oncotype Dx score was done on the biopsy tissue based on unknown gwen statusat that time revealed: - If she is node-negative: Recurrence score of 5 with distant recurrence risk at 9 years of 3% withendocrine therapy alone with less than 1% benefit from the chemo. - If Node positive and premenopausal: Recurrence score will be 5 with distantrecurrence risk at 5 years 3% with her medicine better or endocrine therapy alone and chemo benefit 2.3%. -If she is postmenopausal and node positive the recurrence score is 5 with distant recurrence risk at 5 years with AI or tamoxifen alone is 1% and chemo benefit no apparent benefit noticed as it is less than 1% only. -If she has node positive of 4 or more lymph nodes then recurrence score is 5% and the distant recurrence at 9 years is 35% with AI and tamoxifen alone. -She underwent left breast mastectomy with sentinel node biopsy 05/16/2024, skin sparing with immediate reconstruction with tissue litharge supervisor by Dr. Bustamante. Surgical path from surgery done on 05/16/2024 revealed: A. Left axillary sentinel lymph node 1 out of 2 lymph nodes positive for metastatic carcinoma with mucinous features with extranodal extension again and 1 out of 2 lymph nodes. B. Lymph nodes in the left axillary sentinel lymph node 2 of 6 lymph nodes positive for metastatic carcinoma with mucinous features with extranodal extension. Left breast mastectomy revealed invasive ductal carcinoma with mucinous featuresgrade 2, 1.4 cm in greatest dimension. Ductal carcinoma in situ low-grade cribriform Lymphovascular invasion present Focal invasive carcinoma is present within 1 mm from inked inferior margin. Resection margins negative for DCIS with 5 mm from closest deep margin. Fibrocystic changes characterized by apocrine metaplasia and usual ductal hyperplasia with adenosisand microcalcification. Skin and nipple uninvolved by DCIS or invasive cancer Stage IIA, TNM stage is pT1c, pN1a. Number of lymph nodes with macrometastasis 3 and number of lymph nodes with isolated tumor cells 0 and number of lymph nodes with micrometastasis 0. Extranodal extension is present. ER positive over 90%, TX +80%, HER2 negative (1+), Ki-67 3% Treatment plan: After discussing the above findings from the surgical path with her and considering that she has extranodal extension of 3 out of 6 lymph nodes and lymphovascular invasion positive with 1.4 cm tumor that is grade 2, I recommended adjuvant chemo using dose dense AC followed by T followed by adjuvantradiation followed by adjuvant endocrine therapy. She agreed and signed the consent. Side effects were discussed with patient. Plan: Obtain a Mediport. Obtained authorization for chemo from the insurance. She had an echocardiogram at [facility] we will obtain the report. I asked her to start using calcium 500 mg twice daily and vitamin D 2000 unit daily for her osteopenia. Start cycle 1 of DD AC as soon as possible and return 1 week after the chemo fortoxicity check. Weekly CBCs and CMP. Orders: Orders Chemotherapy Class Today C50.912 - Malignant neoplasm of unspecified site of left female breast Complete Blood Count Auto Diff Today C50.912 - Malignant neoplasm of unspecifiedsite of left femalebreast Toxicity Check Today C50.912 - Malignant neoplasm of unspecified site of left female breast Comprehensive Metabolic Panel Today C50.912 - Malignant neoplasm of unspecified site of left femalebreast Referrals Referral to General Surgery C50.912 - Malignant neoplasm of unspecified site ofleft female breast Patient Instructions: refer for port Dr Braun plan AC and Taxol CHEMO PLAN Treatment Plan DOXOrubicin & Cyclophosphamide (AC) Clinical Indication Adjuvant Therapy Cycle Number Last Admin Cycle Day Next Admin No Active Chemotherapy History of Present Illness SHAE Sahu is a 63-year-old nice lady with history of generalized anxiety disorder, ADHD, complex regional pain syndrome of the lower extremity, essential tremor, hypertension and osteoarthritis to has idiopathic polyneuropathy and scoliosis with history of intermittent marijuana use as needed for paincontrol who was referred to our medical oncology clinic by Dr. Braun for new findings of new leftbreast invasive ductal carcinoma grade 2, ER positive, TX positive, HER2/pat negative 1+, 1.7 cm at least invasive ductal carcinoma, negative for lymphovascular invasion, positive superior margin of the invasive cancer, no DCIS presents and no lymph nodes were obtained as per the biopsy done on 01/10/2024. Patient has been having intermittent nipple discharge with possible fistula from the left breast but no nipple bleeding for several months. She hadBI-RADS 3 screening mammogram in April 2023 whichwas followed by ultrasound patient underwent initial biopsy of the suspicious left breast lesion on 07/12/2023 however results of the path of that biopsy was consistent with fibrovascular adipose tissue with no pathology present. Patient continues to have nipple discharge and Dr. Braun plan to do a lumpectomy however because of cardiac workup and clearance needed another biopsy was done on left breast underultrasound guidance and it came back also inconclusive in November 2023 which led to excisional biopsy performed on 01/10/2024. The path results of that excisionalbiopsy done on 01/10/2024 is as follows: Pathological Diagnosis 01/10/2024: Mass, left breast, 7:00, lumpectomy: Invasive ductal carcinoma. Tumor Is 1.7 Cm In Greatest Dimension. Grade 2/ Moderately Differentiated. Tumor is present at the superior surgical margin. Tumor Is less than 0.1 Cm From The anterior and lateral surgical Margins. No Evidence Of Lymphovascular Invasion. Breast Hormone Profile ER: Positive TX: Positive HER2/pat by immunostain: Negative (1+) CAP CANCER CASE SUMMARY SPECIMEN Procedure: Excision [...] (when applicable) pM categories is based on informationavailable to the pathologist at the time the report is issued. As per the AJCC (Chapter 1, 8th Ed.) it is the managing physician's responsibility to establish the final pathologic stage based upon all pertinent information, including but potentially not limited to this pathology report. pT Category: pT1c pN Category: pNx Patient denies any family history of ovarian cancer however she has a cousin with breast cancer. She has a sister with multiple lumps under her breast but there were not cancerous. No known family history of ovarian cancer however hermom had mesothelioma. She does not know her father side because she does not know her biological father. 05/30/24: She is here for further planning of care after her left breast mastectomy and for results of the DEXA scan and Oncotype DX. Patient was sent to Dr. Bustamante for reconstructive breast surgeries as she is electing to go for bilateral mastectomy. She was also sent to our medical oncology clinic for recommendation regarding management of her new left breast cancer that is ER positive TX positive and HER2/pat negative but nolymph nodes were obtained as of this initial consult done on 02/08/2024. Surgery date yet to be determined [address] BRAUN. - Invitae gene testing done 03/01/24 was negative. -Bone density scan done on 02/15/2024 revealed osteopenia with a T-score of -1.4 in the left femoralneck. - Oncotype Dx score was done on the biopsy tissue based on unknown gwen statusat that time revealed: - If she is node-negative: Recurrence score of 5 with distant recurrence risk at 9 years of 3% withendocrine therapy alone with less than 1% benefit from the chemo. - If Node positive and premenopausal: Recurrence score will be 5 with distantrecurrence risk at 5 years 3% with her medicine better or endocrine therapy alone and chemo benefit 2.3%. -If she is postmenopausal and node positive the recurrence score is 5 with distant recurrence risk at 5 years with AI or tamoxifen alone is 1% and chemo benefit no apparent benefit noticed as it is less than 1% only. -If she has node positive of 4 or more lymph nodes then recurrence score is 5% and the distant recurrence at 9 years is 35% with AI and tamoxifen alone. -She underwent left breast mastectomy with sentinel node biopsy 05/16/2024, skin sparing with immediate reconstruction with tissue litharge supervisor by Dr. Bustamante. Surgical path from surgery done on 05/16/2024 revealed: A. Left axillary sentinel lymph node 1 out of 2 lymph nodes positive for metastatic carcinoma with mucinous features with extranodal extension again and 1 out of 2 lymph nodes. B. Lymph nodes in the left axillary sentinel lymph node 2 of 6 lymph nodes positive for metastatic carcinoma with mucinous features with extranodal extension. Left breast mastectomy revealed invasive ductal carcinoma with mucinous featuresgrade 2, 1.4 cm in greatest dimension. Ductal carcinoma in situ low-grade cribriform Lymphovascular invasion present Focal invasive carcinoma is present within 1 mm from inked inferior margin. Resection margins negative for DCIS with 5 mm from closest deep margin. Fibrocystic changes characterized by apocrine metaplasia and usual ductal hyperplasia with adenosisand microcalcification. Skin and nipple uninvolved by DCIS or invasive cancer Stage IIA, TNM stage is pT1c, pN1a. Number of lymph nodes with macrometastasis 3 and number of lymph nodes with isolated tumor cells 0 and number of lymph nodes with micrometastasis 0. Extranodal extension is present. ER positive over 90%, TX +80%, HER2 negative (1+), Ki-67 3% 14 point review of systems was obtained and was negative. Intake Vitals/Pain Assessment 05/30/24 14:00 Height 5 ft 7 in Weight 69.4 kg BMI 23.9 Body Fat % 37.62 BP 212/82 H Blood Pressure Location Rt brachial Position Sitting Pulse 75 Pulse Source NIBP Respiration 20 Pulse Oximetry (%) 99 Oxygen Delivery Method room air Are you having pain? Yes Pain scale (0-10) 3 Intake Visit Reasons: Follow up 2wk after surgery Allergies Corticosteroids (Glucocorticoids) Allergy (Verified 02/08/24 15:18) Unknown Reaction metaxalone [From Skelaxin] Allergy (Verified 02/08/24 15:18) Unknown Reaction entex Allergy (Uncoded 02/08/24 15:18) Unknown Reaction - Last Reconciled 05/30/24 by Jen Guzmán alprazolam 0.25 mg PO TID PRN aspirin 81 mg PO DAILY cyclobenzaprine 10 mg PO TID gabapentin 300 mg PO BID losartan-hydrochlorothiazide 50-12.5 mg 1 tab PO DAILY oxycodone-acetaminophen 5-325 mg 1 tab PO Q6HR Gastrointestinal Is the patient taking opioids for pain control?: Yes Bowel Protocol for Opioids Given: Yes Bowel Pattern: Regular Bowel Movement Aid(s): None Falls Fall Precaution Measures Taken: Patient in chair Nurse's Note: Cancer treatment education bag and all contents including [facility] My cancer treatmentguide, signs and symptoms sheet, yellow fever card, magnet, caregiver resource list, [facility] well nutrition guide, and cancer rehabilitation pamphlet provided anddiscussed with patient. Patient also provided with copy of consent, doctors business card, and clinic contact information. Printed drug information also provided and discussed with patient. All questions were answered to patient?s satisfaction and patient verbalizes understanding. Patient is here for a follow up after surgery. Had surgery 05/16/24. [facility] Medical History Medical History (Updated 02/08/24 @ 15:27 by Kush Glez MD) Encounter for screening for osteoporosis Breast cancer, left Hypertension Surgical History Surgical History (Updated 02/08/24 @ 15:24 by Jen Guzmán) History of knee surgery bilateral History of lumpectomy of left breast History of cholecystectomy History of appendectomy History of hysterectomy History of foot surgery multiple bilateral Family History Family History (Updated 02/08/24 @ 15:25 by Jen Guzmán) Family/Other Breast cancer Social History Social History (Updated 02/08/24 @ 15:26 by Jen Guzmán) Smoking status: Former smoker What tobacco products do you use: cigarettes Smoking quit date/years:>15 years ago Within the past year, how often did you have a drink containing alcohol: monthly or less In the past 12 months, have you used illegal drugs or prescription drugs for non-medical reasons?: No Review of Systems ROS Details: All systems reviewed & no additional complaints except as documented General: Patient denied fevers, chills, rigors, weight loss or loss of appetite. Head: Patient denied any headaches or vision changes Thoracic: Patient denied any shortness of breath or cough or hemoptysis Cardiovascular patient denies any chest pain or leg edema GI: Patient denies any nausea vomiting rectal bleed diarrhea : Patient denied gross hematuria. Hematology: Patient denied any bleeding from any source. No easy bruising. Lymphatic: No enlarged LAP anywhere. Skin: Normal skin exam no rashes or suspicious lesions. Neurological patient denies any headache or dizziness or focal weakness or sensory changes. Physical Exam EXAM ECOG performance status 1. HEENT normocephalic atraumatic pupils are equal and round Neck supple without thyromegaly or any cervical lymphadenopathy. Chest clear to auscultation bilaterally without wheezing crackles or rhonchi Heart regular rate and rhythm S1-S2 without murmurs gallop or rub Abdomen soft nontender not distended without hepatosplenomegaly or masses clinically Extremities no edema of the lower extremities Skin without any suspicious rashes Lymphatic system no lymphadenopathy in the cervical area axillary areas or inguinal areas bilaterally Neurological exam patient is cooperative alert and oriented x3 no focal deficits. Results - [facility]tr (Med Onc) LAB RESULTS No Data to Display Dictated By: Kush Glez MD DD/ [id number] Signed By: <Electronically signed by Kush Glez MD> 05/30/24 6707 [facility] Work Phone: Progress note Author Elda Hurtado [facility], [facility]onNote Date/TimeJanuary 2024 6:40[place] [address] Palliative Medicine Encounter Patient: Adelina Mir MR#: [id number] : 1960 Acct:[id number] Age/Sex: 63 / F Copies to: SOLA Wilcox MD~ HPI Date of Visit Date of Visit: 09/05/2024 Chief Complaint: Alannah is here for follow up at time of chemo. She was to continue Alprazolam .25mg TID, Gabapentin 300 mg BID and Oxycodone Acetaminophen 5/325 mg TID PRN at last office visit HPI: Sol is seen and examined; interim period and pertinent symptoms reviewed below and detailed in ESAS: Enjoyed wonderful holidays with her family Left lower leg and foot neuropathy has been very bothersome since last chemo; continues gabapentin 300 mg BID and has been using Percocet 5-325 tab, trying tokeep use down to TID Nausea has been mild-moderate with use of zofran ODT and prochlorperazine every AM, no emesis; nausea often associated with increased pain severity Appetite & weight are fairly stable - eats well when she likes what she is eating Cough persists but is less productive, sputum less thick and sticky; feels SOB only with exertion Anxiety tends to increase with pain severity Intake Allergies Corticosteroids (Glucocorticoids) Allergy (Verified 09/03/24 13:47) Unknown Reaction metaxalone (From Skelaxin) Allergy (Verified 09/03/24 13:47) Unknown Reaction entex Allergy (Uncoded 02/08/24 15:18) Unknown Reaction Home Medications ?Medication ?Instructions ?Recorded ?Confirmed alprazolam 0.25 mg tablet 0.25 mg PO TID PRN anxiety 02/08/24 09/03/24 aspirin 81 mg tablet,delayed 81 mg PO DAILY 02/08/24 09/03/24 release cyclobenzaprine 10 mg tablet 10 mg PO TID 02/08/24 09/03/24 gabapentin 300 mg capsule 300 mg PO BID 02/08/24 09/03/24 losartan 50 mg-hydrochlorothiazide 1 tab PO DAILY 02/08/24 09/03/24 12.5 mg tablet ondansetron 8 mg disintegrating 8 mg PO Q8HR PRN nausea and 05/30/24 09/03/24 tablet vomiting #30 tabs prochlorperazine maleate 10 mg 10 mg PO Q6HR PRN nausea and 05/30/24 09/03/24 tablet (Compazine) vomiting #30 tabs naloxone 4 mg/actuation nasal spray 4 mg intranasal Q2-3M PRN opioid 08/22/24 09/03/24 overdose #2 ea oxycodone-acetaminophen 5 mg-325 1 tab PO Q8HR PRN pain 30 days #90 08/23/24 09/03/24 mg tablet tabs Is patient having pain?: Yes [facility] Medical History (Updated 09/05/24 @ 11:08 by Kimberly Carnes CMA) Osteopenia Encounter for screening for osteoporosis Breast cancer, left Hypertension Surgical History History of knee surgery bilateral History of lumpectomy of left breast History of cholecystectomy History of appendectomy History of hysterectomy History of foot surgery multiple bilateral Family History Family/Other Breast cancer Social History Smoking Status: Former smoker Tobacco Type: cigarettes Substance Use Type: Marijuana Substance Abuse Comment: bethgregoryabimael marijuana - 06/03/2024 [place] Symptom Assessment Scale Pain: left leg pain, Percocet helping pain quite a bit Nausea/Vomiting: nausea controlled using Zofran and Compazine once daily worse with increased pain Anorexia: good appetite / plans on starting Boost today Dyspnea: cough mildly improved /SOB with activity Constipation/Diarrhea: stable with diet modifications Drowsiness: denies Fatigue: increased fatigue/ rests when needed Insomnia: stable / awakens for restroom and returns to sleep Depression/Mood: admits to being bitchy at times Anxiety: moderate / increases when pain is worse Exam Exam General - A&O, accompanied by friend/daughter HEENT - EOM intact, oral mucosa pink/moist Lungs - harsh, wheezy cough, normal respiratory effort Abdomen - soft, non-tender, + BS Extremities - normal ROM, no edema Psychiatric - pleasant, cooperative, normal mood/affect Assessment & Plan Assessment & Plan (1) Cancer associated pain: Plan: Alannah reports increased severity of peripheral neuropathy, chiefly in the left lower leg and foot. Has been on current dose of gabapentin 300 mg BID for a long time and is agreeable to titrating to improve pain control. OARRS reviewed, consistent with Rx. MME 22.5 mg/day. Opioid informed consent andagreement reviewed and signed today. 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 Receiving cycle 4 AC chemotherapy which will be followed by taxol and completed with adjuvant radiation therapy Attestation: The above note written by Kimberly Carnes MA acting as human recorder, note dictated by Elda Hurtado APRN, [employer]-C Dictated By: Elda Hurtado APRN DD/ [id number] Signed By: <Electronically signed by SOLA Hurtado> 09/06/24 1840 [facility] Work Phone: Progress note Author Cynthia Clayton [facility]onNote Date/TimeJanuary 2024 12:31pm [facility] [place] [address] Cancer Center Note Signed Patient: Adelina Mir MR#: [id number] : 1960 Acct:[id number] Age/Sex: 63 / F Type: REG AMB Date of Service: 09/17/24 Copies to: Michael Holley MD~ Assessment & Plan A/P (1) Breast cancer, left: (2) Osteopenia: Plan Based on the biopsy done on 01/10/2024 it reveals pT1c, pNX, ER positive, TX positive, HER2/pat negative (1+), no DCIS, tumor size of the invasive ductal carcinoma is 1.7 cm at least with positive superior margin and no lymphovascularinvasion detected. No lymph nodes included in the biopsy. Patient was referredfor further surgical resection with bilateral mastectomy by Dr. Braun and Dr. Bustamante forreconstructive surgery. - Invitae gene testing done 03/01/24 was negative. -Bone density scan done on 02/15/2024 revealed osteopenia with a T-score of -1.4 in the left femoralneck. - Oncotype Dx score was done on the biopsy tissue based on unknown gwen statusat that time revealed: - If she is node-negative: Recurrence score of 5 with distant recurrence risk at 9 years of 3% withendocrine therapy alone with less than 1% benefit from the chemo. - If Node positive and premenopausal: Recurrence score will be 5 with distantrecurrence risk at 5 years 3% with her medicine better or endocrine therapy alone and chemo benefit 2.3%. -If she is postmenopausal and node positive the recurrence score is 5 with distant recurrence risk at 5 years with AI or tamoxifen alone is 1% and chemo benefit no apparent benefit noticed as it is less than 1% only. -If she has node positive of 4 or more lymph nodes then recurrence score is 5% and the distant recurrence at 9 years is 35% with AI and tamoxifen alone. -She underwent left breast mastectomy with sentinel node biopsy 05/16/2024, skin sparing with immediate reconstruction with tissue litharge supervisor by Dr. Bustamante. Surgical path from surgery done on 05/16/2024 revealed: A. Left axillary sentinel lymph node 1 out of 2 lymph nodes positive for metastatic carcinoma with mucinous features with extranodal extension again and 1 out of 2 lymph nodes. B. Lymph nodes in the left axillary sentinel lymph node 2 of 6 lymph nodes positive for metastatic carcinoma with mucinous features with extranodal extension. Left breast mastectomy revealed invasive ductal carcinoma with mucinous featuresgrade 2, 1.4 cm in greatest dimension. Ductal carcinoma in situ low-grade cribriform Lymphovascular invasion present Focal invasive carcinoma is present within 1 mm from inked inferior margin. Resection margins negative for DCIS with 5 mm from closest deep margin. Fibrocystic changes characterized by apocrine metaplasia and usual ductal hyperplasia with adenosisand microcalcification. Skin and nipple uninvolved by DCIS or invasive cancer Stage IIA, TNM stage is pT1c, pN1a. Number of lymph nodes with macrometastasis 3 and number of lymph nodes with isolated tumor cells 0 and number of lymph nodes with micrometastasis 0. Extranodal extension is present. ER positive over 90%, TX +80%, HER2 negative (1+), Ki-67 3% Treatment plan: After discussing the above findings from the surgical path with her and considering that she has extranodal extension of 3 out of 6 lymph nodes and lymphovascular invasion positive with 1.4 cm tumor that is grade 2, I recommended adjuvant chemo using dose dense AC followed by T followed by adjuvantradiation followed by adjuvant endocrine therapy. She agreed and signed the consent. Side effects were discussed with patient. 07/31/24: She is here for 1 week toxicity check after cycle 1 of dose dense AC obtained orgiven on 07/24/2024. She tolerated C1 without any complaints but has same postnasal drainage for more than 4 weeks evenbefore chemo without sore throat or fevers. She tried Benadryl and can not take steroids due to allergy to steroids. She is scheduled for cycle 2 on 08/08/2024. Labs on 07/30/2024 revealed normal CBC with normal WBC of 5.7 normal ANC of 4.2 and unremarkable CMP. - Proceeded with cycle 2 of dose dense AC on 08/08/2024. 08/21/24: She is here for evaluation prior to her C3 of the adjuvant ddAC scheduled on 08/22/24. She had mildfatigue and had nausea for 6 days after cycle 2 of dose dense AC but not vomiting and no chest painor shortness of breath or leg edema or abdominal pain or diarrhea. She has chronic peripheral neuropathy even before chemotherapy. No fevers or current infections. Her Zofran she took daily for 6 days after cycle 2 helped her nausea. PLAN: Proceed with C3 ddAC on 08/21/24 if labs meets criteria for chemo. Continue using calcium 500 mg twice daily and vitamin D 2000 unit daily for her mild osteopenia. Next DEXA scan is in 02/2026. I asked her to take her Zofran daily for the first week after each dose dense ACgiven. Weekly CBCs and CMP. Try pepcid and Zyrtec for postnasal drainage. Returns in 2 weeks for cycle 4 of dose dense AC. After she completes 4 cycles of ddAC she then can start weekly taxol 2 weeks after C4 of AC. 09/03/24: She continues to do fairly well with treatment and will receive cycle 4 ddAC this week. Her labs remain okay for continued treatment. She will follow-up in2 weeks with Dr. Bales with plans of starting her weekly Taxol at that visit as well. 09/17/24: Patient sent to ED for worsening symptoms, will likely hold off on initiation of Taxol this week given acute concerns. Orders: Orders Urinalysis Today R39.9 - Unspecified symptoms and signs involving the genitourinary system Patient Instructions: f/u TBD CHEMO PLAN Treatment Plan DOXOrubicin & Cyclophosphamide (AC) [Stopped Sep 11] No Active Chemotherapy History of Present Illness SHAE Sahu is a 63-year-old nice lady with history of generalized anxiety disorder, ADHD, complex regional pain syndrome of the lower extremity, essential tremor, hypertension and osteoarthritis to has idiopathic polyneuropathy and scoliosis with history of intermittent marijuana use as needed for paincontrol who was referred to our medical oncology clinic by Dr. Braun for new findings of new leftbreast invasive ductal carcinoma grade 2, ER positive, TX positive, HER2/pat negative 1+, 1.7 cm at least invasive ductal carcinoma, negative for lymphovascular invasion, positive superior margin of the invasive cancer, no DCIS presents and no lymph nodes were obtained as per the biopsy done on 01/10/2024. Patient has been having intermittent nipple discharge with possible fistula fromthe left breast but no nipple bleeding for several months. She had BI-RADS 3 screening mammogram in April 2023 whichwas followed by ultrasound patient underwent initial biopsy of the suspicious left breast lesion on 07/12/2023 however results of the path of that biopsy was consistent with fibrovascular adipose tissue with no pathology present. Patient continues to have nipple discharge and Dr. Braun plan to do a lumpectomy however because of cardiac workupand clearance needed another biopsy was done on left breast under ultrasound guidance and it came back also inconclusive in November 2023 which led to excisional biopsy performed on 01/10/2024. The path results of that excisional biopsy done on 01/10/2024 is as follows: Pathological Diagnosis 01/10/2024: Mass, left breast, 7:00, lumpectomy: Invasive ductal carcinoma. Tumor Is 1.7 Cm In Greatest Dimension. Grade 2/ Moderately Differentiated. Tumor is present at the superior surgical margin. Tumor Is less than 0.1 Cm From The anterior and lateral surgical Margins. No Evidence Of Lymphovascular Invasion. Breast Hormone Profile ER: Positive TX: Positive HER2/pat by immunostain: Negative (1+) CAP CANCER CASE SUMMARY SPECIMEN Procedure: Excision [...] (when applicable) pM categories is based on informationavailable to the pathologist at the time the report is issued. As per the AJCC (Chapter 1, 8th Ed.) it is the managing physician's responsibility to establish the final pathologic stage based upon all pertinent information, including but potentially not limited to this pathology report. pT Category: pT1c pN Category: pNx Patient denies any family history of ovarian cancer however she has a cousin with breast cancer. She has a sister with multiple lumps under her breast but there were not cancerous. No known family history of ovarian cancer however hermwashington had mesothelioma. She does not know her father side because she does not know her biological father. 05/30/24: She is here for further planning of care after her left breast mastectomy and for results of the DEXA scan and Oncotype DX. Patient was sent to Dr. Bustamante for reconstructive breast surgeries as she is electing to go for bilateral mastectomy. She was also sent to our medical oncology clinic for recommendation regarding management of her new left breast cancer that is ER positive TX positive and HER2/pat negative but nolymph nodes were obtained as of this initial consult done on 02/08/2024. Surgery date yet to be determined [address] BRAUN. - Invitae gene testing done 03/01/24 was negative. -Bone density scan done on 02/15/2024 revealed osteopenia with a T-score of -1.4 in the left femoralneck. - Oncotype Dx score was done on the biopsy tissue based on unknown gwen statusat that time revealed: - If she is node-negative: Recurrence score of 5 with distant recurrence risk at 9 years of 3% withendocrine therapy alone with less than 1% benefit from the chemo. - If Node positive and premenopausal: Recurrence score will be 5 with distantrecurrence risk at 5 years 3% with her medicine better or endocrine therapy alone and chemo benefit 2.3%. -If she is postmenopausal and node positive the recurrence score is 5 with distant recurrence risk at 5 years with AI or tamoxifen alone is 1% and chemo benefit no apparent benefit noticed as it is less than 1% only. -If she has node positive of 4 or more lymph nodes then recurrence score is 5% and the distant recurrence at 9 years is 35% with AI and tamoxifen alone. -She underwent left breast mastectomy with sentinel node biopsy 05/16/2024, skin sparing with immediate reconstruction with tissue litharge supervisor by Dr. Bustamante. Surgical path from surgery done on 05/16/2024 revealed: A. Left axillary sentinel lymph node 1 out of 2 lymph nodes positive for metastatic carcinoma with mucinous features with extranodal extension again and 1 out of 2 lymph nodes. B. Lymph nodes in the left axillary sentinel lymph node 2 of 6 lymph nodes positive for metastatic carcinoma with mucinous features with extranodal extension. Left breast mastectomy revealed invasive ductal carcinoma with mucinous featuresgrade 2, 1.4 cm in greatest dimension. Ductal carcinoma in situ low-grade cribriform Lymphovascular invasion present Focal invasive carcinoma is present within 1 mm from inked inferior margin. Resection margins negative for DCIS with 5 mm from closest deep margin. Fibrocystic changes characterized by apocrine metaplasia and usual ductal hyperplasia with adenosisand microcalcification. Skin and nipple uninvolved by DCIS or invasive cancer Stage IIA, TNM stage is pT1c, pN1a. Number of lymph nodes with macrometastasis 3 and number of lymph nodes with isolated tumor cells 0 and number of lymph nodes with micrometastasis 0. Extranodal extension is present. ER positive over 90%, TX +80%, HER2 negative (1+), Ki-67 3% 07/31/24: She is here for 1 week toxicity check after cycle 1 of dose dense AC obtained orgiven on 07/24/2024. She tolerated C1 without any complaints but has same postnasal drainage for more than 4 weeks evenbefore chemo without sore throat or fevers. She tried Benadryl and can not take steroids due to allergy to steroids. She is scheduled for cycle 2 on 08/08/2024. Labs on 07/30/2024 revealed normal CBC with normal WBC of 5.7 normal ANC of 4.2 and unremarkable CMP. 08/21/24: She is here for evaluation prior to her C3 of the adjuvant ddAC scheduled on 08/22/24. She had mildfatigue and had nausea for 6 days after cycle 2 of dose dense AC but not vomiting and no chest painor shortness of breath or leg edema or abdominal pain or diarrhea. She has chronic peripheral neuropathy even before chemotherapy. No fevers or current infections. Her Zofran she took daily for 6 days after cycle 2 helped her nausea. 14 point review of systems was obtained and was negative. 09/03/24: She presents for cycle 4 ddAC. She continues with fatigue and dyspnea if she exerts herself, otherwise no chest pain or shortness of breath at rest. No change in her neuropathy with treatment. Her nausea has better controlled now that she is taking her antiemetics regularly. She is eating and drinking ok anddenies vomiting, diarrhea, or constipation. She denies other new concerns as well. Her labs remain okay for continued treatment. 09/17/24: She presents to clinic as an add-on for worsening symptoms. Her daughter is concerned that she has pneumonia as she has been having shortness of breath and not eating much at all. Vitals today note significant hypotension and decreasedheart rate. Her oxygen levels on arrival dropped between 70s/80sand she was placed on supplemental oxygen, up to 6 L in office before her sats improved intothe 90s. She has attempted to give a urine sample as she has concern for UTI aswell, however was not able to go. Given acute symptoms, we have decided to sendher to the ED for further evaluation. Intake Vitals/Pain Assessment 09/17/24 11:30 BP 64/45 L Blood Pressure Location Rt brachial Position Sitting Temp 98.0 F Temp Source Temporal Pulse 58 L Pulse Source NIBP Respiration 14 Pulse Oximetry (%) 97 Oxygen Delivery Method nasal canula Oxygen Flow Rate 4 Are you having pain? Yes Pain Location generalized Pain scale (0-10) 9 Intake Visit Reasons: Breast cancer follow-up Allergies Corticosteroids (Glucocorticoids) Allergy (Verified 09/03/24 13:47) Unknown Reaction metaxalone (From Skelaxin) Allergy (Verified 09/03/24 13:47) Unknown Reaction entex Allergy (Uncoded 02/08/24 15:18) Unknown Reaction - Last Reconciled 09/17/24 by MARY Chavarria alprazolam 0.25 mg PO TID PRN aspirin 81 mg PO DAILY cyclobenzaprine 10 mg PO TID gabapentin 300 mg PO BID losartan-hydrochlorothiazide 50-12.5 mg 1 tab PO DAILY naloxone 4 mg/actuation 4 mg intranasal Q2-3M PRN ondansetron 8 mg PO Q8HR PRN oxycodone-acetaminophen 5-325 mg 1 tab PO Q8HR PRN 30 days prochlorperazine maleate (Compazine) 10 mg PO Q6HR PRN Gastrointestinal Is the patient taking opioids for pain control?: Yes Bowel Protocol for Opioids Given: Yes Bowel Pattern: Diarrhea Falls Fall Precaution Measures Taken: Patient in chair Nurse's Note: Patient is here for an add on visit. Patient's daughter and state that she has not gotten out of bed in about 5 days, weakness, that she has not eaten since Monday, chest pain, shortness of breath, hot flashes, and urinary urgency and burning. Family also states that the patient has not taken any medications aside from pain medications. Patient is also very unsteady. Patient does have low blood pressure and oxygen saturation upon intake today. Blood pressure would not read upon first try. Switched cuff to right arm and gota reading of 64/45. Oxygen saturation wasas low as 71%. Placed patient on 4L oxygen, saturation came up to as high as 95%. [employer] Terra Demboskenotified of low BP and SpO2. [facility] Medical History Medical History (Updated 09/05/24 @ 11:08 by Kimberly Carnes CMA) Osteopenia Encounter for screening for osteoporosis Breast cancer, left Hypertension Surgical History Surgical History History of knee surgery bilateral History of lumpectomy of left breast History of cholecystectomy History of appendectomy History of hysterectomy History of foot surgery multiple bilateral Family History Family History Family/Other Breast cancer Social History Social History (Updated 02/08/24 @ 15:26 by MARY Chavarria) Smoking status: Former smoker What tobacco products do you use: cigarettes Smoking quit date/years:>15 years ago Within the past year, how often did you have a drink containing alcohol: monthly or less In the past 12 months, have you used illegal drugs or prescription drugs for non-medical reasons?: No Results - [facility] ([facility]) LAB RESULTS Corrected WBC 14.3 X10E3/uL (3.8-11.6) H 09/03/24 13:15 08/06 09/27 Hgb 8.3 g/dL (11.8-15.4) L 09/03/24 13:15 09/03/24 Hct 24.4 % (34.0-46.4) L 09/03/24 13:15 09/03/24 MCV 93.2 fl (80-100) 09/03/24 13:15 09/03/24 RDW 14.8 % (11.9-15.3) 09/03/24 13:15 09/03/24 Plt Count 155 x10E3/uL (150-450) 09/03/24 13:15 09/03/24 Sodium 133 mmol/L (136-145) L 09/03/24 13:15 09/03/24 Potassium 3.7 mmol/L (3.5-5.1) 09/03/24 13:15 09/03/24 BUN 12 mg/dL (7-25) 09/03/24 13:15 09/03/24 Creatinine 1.22 mg/dL (0.60-1.20) H 09/03/24 13:15 Glucose 122 mg/dL (70-100) H 09/03/24 13:15 09/03/24 Est GFR (CKD-EPI) 50.176 mL/Min 09/03/24 13:15 09/03/24 Calcium 9.6 mg/dL (8.6-10.3) 09/03/24 13:15 09/03/24 Total Bilirubin 0.5 mg/dl (0.3-1.0) 09/03/24 13:15 09/03/24 AST 17 U/L (13-39) 09/03/24 13:15 09/03/24 ALT 12 U/L (7-52) 09/03/24 13:15 09/03/24 Alkaline Phosphatase 74 U/L (34-104) 09/03/24 13:15 09/03/24 Total Protein 6.7 gm/dL (6.4-8.9) 09/03/24 13:15 09/03/24 Albumin 3.8 gm/dL (3.5-5.7) 09/03/24 13:15 09/03/24 Dictated By: Cynthia Clayton APRN DD/ [id number] Signed By: <Electronically signed by SOLA Clayton> 09/17/24 1231 [facility] Work Phone: Progress note Author Kush Glez [facility], AvonNote Date/TimeJanuary 2024 3:18pm [facility] [place] [address] Cancer Center Note Signed Patient: Adelina Mir MR#: [id number] : 1960 Acct:[id number] Age/Sex: 64 / F Type: REG AMB Date of Service: 10/03/24 Copies to: Michael Holley MD~ Assessment & Plan A/P (1) Breast cancer, left: (2) Osteopenia: Plan Based on the biopsy done on 01/10/2024 it reveals pT1c, pNX, ER positive, TX positive, HER2/pat negative (1+), no DCIS, tumor size of the invasive ductal carcinoma is 1.7 cm at least with positive superior margin and no lymphovascularinvasion detected. No lymph nodes included in the biopsy. Patient was referredfor further surgical resection with bilateral mastectomy by Dr. Braun and Dr. Bustamante forreconstructive surgery. - Invitae gene testing done 03/01/24 was negative. -Bone density scan done on 02/15/2024 revealed osteopenia with a T-score of -1.4 in the left femoralneck. - Oncotype Dx score was done on the biopsy tissue based on unknown gwen statusat that time revealed: - If she is node-negative: Recurrence score of 5 with distant recurrence risk at 9 years of 3% withendocrine therapy alone with less than 1% benefit from the chemo. - If Node positive and premenopausal: Recurrence score will be 5 with distantrecurrence risk at 5 years 3% with her medicine better or endocrine therapy alone and chemo benefit 2.3%. -If she is postmenopausal and node positive the recurrence score is 5 with distant recurrence risk at 5 years with AI or tamoxifen alone is 1% and chemo benefit no apparent benefit noticed as it is less than 1% only. -If she has node positive of 4 or more lymph nodes then recurrence score is 5% and the distant recurrence at 9 years is 35% with AI and tamoxifen alone. -She underwent left breast mastectomy with sentinel node biopsy 05/16/2024, skin sparing with immediate reconstruction with tissue litharge supervisor by Dr. Bustamante. Surgical path from surgery done on 05/16/2024 revealed: A. Left axillary sentinel lymph node 1 out of 2 lymph nodes positive for metastatic carcinoma with mucinous features with extranodal extension again and 1 out of 2 lymph nodes. B. Lymph nodes in the left axillary sentinel lymph node 2 of 6 lymph nodes positive for metastatic carcinoma with mucinous features with extranodal extension. Left breast mastectomy revealed invasive ductal carcinoma with mucinous featuresgrade 2, 1.4 cm in greatest dimension. Ductal carcinoma in situ low-grade cribriform Lymphovascular invasion present Focal invasive carcinoma is present within 1 mm from inked inferior margin. Resection margins negative for DCIS with 5 mm from closest deep margin. Fibrocystic changes characterized by apocrine metaplasia and usual ductal hyperplasia with adenosisand microcalcification. Skin and nipple uninvolved by DCIS or invasive cancer Stage IIA, TNM stage is pT1c, pN1a. Number of lymph nodes with macrometastasis 3 and number of lymph nodes with isolated tumor cells 0 and number of lymph nodes with micrometastasis 0. Extranodal extension is present. ER positive over 90%, TX +80%, HER2 negative (1+), Ki-67 3% Treatment plan: After discussing the above findings from the surgical path with her and considering that she has extranodal extension of 3 out of 6 lymph nodes and lymphovascular invasion positive with 1.4 cm tumor that is grade 2, I recommended adjuvant chemo using dose dense AC followed by T followed by adjuvantradiation followed by adjuvant endocrine therapy. She agreed and signed the consent. Side effects were discussed with patient. 07/31/24: She is here for 1 week toxicity check after cycle 1 of dose dense AC obtained orgiven on 07/24/2024. She tolerated C1 without any complaints but has same postnasal drainage for more than 4 weeks evenbefore chemo without sore throat or fevers. She tried Benadryl and can not take steroids due to allergy to steroids. She is scheduled for cycle 2 on 08/08/2024. Labs on 07/30/2024 revealed normal CBC with normal WBC of 5.7 normal ANC of 4.2 and unremarkable CMP. - Proceeded with cycle 2 of dose dense AC on 08/08/2024. 08/21/24: She is here for evaluation prior to her C3 of the adjuvant ddAC scheduled on 08/22/24. She had mildfatigue and had nausea for 6 days after cycle 2 of dose dense AC but not vomiting and no chest painor shortness of breath or leg edema or abdominal pain or diarrhea. She has chronic peripheral neuropathy even before chemotherapy. No fevers or current infections. Her Zofran she took daily for 6 days after cycle 2 helped her nausea. PLAN: Proceed with C3 ddAC on 08/21/24 if labs meets criteria for chemo. Continue using calcium 500 mg twice daily and vitamin D 2000 unit daily for her mild osteopenia. Next DEXA scan is in 02/2026. I asked her to take her Zofran daily for the first week after each dose dense ACgiven. Weekly CBCs and CMP. Try pepcid and Zyrtec for postnasal drainage. Returns in 2 weeks for cycle 4 of dose dense AC. After she completes 4 cycles of ddAC she then can start weekly taxol 2 weeks after C4 of AC. 09/03/24: She continues to do fairly well with treatment and will receive cycle 4 ddAC this week. Her labs remain okay for continued treatment. She will follow-up in2 weeks with Dr. Bales with plans of starting her weekly Taxol at that visit as well. 09/17/24: Patient sent to ED for worsening symptoms, will likely hold off on initiation of Taxol this week given acute concerns. 09/19/24: She is admitted with a hemoglobin of 5.6 and found to have pneumonia as well as UTI during this admission evaluation with urine culture and was transfused 2 units of packed RBC and brought her hemoglobin up to 7.7 on 09/19/2024. Her platelet on admission on 09/17/2024 was 24K on 09/17/24 and they are 38K on 09/19/24 without evidence or signs of clinical bleeding. - Medical oncology was consulted for further recommendation regarding her anemia, thrombocytopenia and left breast cancer treatment considering that she missed her week 1 of the weekly Taxol scheduled on 09/18/24. Clinically she denied any melena or rectal bleeding or gross hematuria. She denies any hemoptysis however she has some right lower chest discomfort and cough likely from her pneumonia. She has some burning with her urination as well. 10/03/24: She is here for 2 weeks follow up after hospital admission for pneumonia, UTI, severe anemia and thrombocytopenia with hgb 5.6 and plt 24K (see above). Labs on 10/03/2024 revealed hemoglobin increased to 8.9 WBC is 9.8 and a plateletcount of is back tonormal 321. CMP are normal. She is here to resume her adjuvant chemo as she was supposed to start her week 1of adjuvant weekly Taxol prior to her recent admission. PLAN: Resume weekly Taxol as of week 1 on 10/09/24. Start B1/B6/B12 50/50/500 mg for neuropathy history. Weekly CBC. CMP every 2 weeks. RTC on week 3. Orders: Orders Comprehensive Metabolic Panel Today C50.912 - Malignant neoplasm of unspecifiedsite of left female breast, D61.818 - Other pancytopenia Complete Blood Count Auto Diff Today C50.912 - Malignant neoplasm of unspecified site of left female breast, D61.818 - Other pancytopenia Patient Instructions: Taxol cycle 1 on 10/09 return in 3 weeks CHEMO PLAN Treatment Plan Paclitaxel 80mg/m2 Weekly x 4 weeks [Holding Sep 23] Clinical Indication No Indication Cycle Number Last Admin 1 of 3 Cycle Day Next Admin No Active Chemotherapy History of Present Illness SHAE Sahu is a 63-year-old nice lady with history of generalized anxiety disorder, ADHD, complex regional pain syndrome of the lower extremity, essential tremor, hypertension and osteoarthritis to has idiopathic polyneuropathy and scoliosis with history of intermittent marijuana use as needed for paincontrol who was referred to our medical oncology clinic by Dr. Braun for new findings of new leftbreast invasive ductal carcinoma grade 2, ER positive, TX positive, HER2/pat negative 1+, 1.7 cm at least invasive ductal carcinoma, negative for lymphovascular invasion, positive superior margin of the invasive cancer, no DCIS presents and no lymph nodes were obtained as per the biopsy done on 01/10/2024. Patient has been having intermittent nipple discharge with possible fistula from the left breast but no nipple bleeding for several months. She hadBI-RADS 3 screening mammogram in April 2023 whichwas followed by ultrasound patient underwent initial biopsy of the suspicious left breast lesion on 07/12/2023 however results of the path of that biopsy was consistent with fibrovascular adipose tissue with no pathology present. Patient continues to have nipple discharge and Dr. Braun plan to do a lumpectomy however because of cardiac workup and clearance needed another biopsy was done on left breast underultrasound guidance and it came back also inconclusive in November 2023 which led to excisional biopsy performed on 01/10/2024. The path results of that excisionalbiopsy done on 01/10/2024 is as follows: Pathological Diagnosis 01/10/2024: Mass, left breast, 7:00, lumpectomy: Invasive ductal carcinoma. Tumor Is 1.7 Cm In Greatest Dimension. Grade 2/ Moderately Differentiated. Tumor is present at the superior surgical margin. Tumor Is less than 0.1 Cm From The anterior and lateral surgical Margins. No Evidence Of Lymphovascular Invasion. Breast Hormone Profile ER: Positive TX: Positive HER2/pat by immunostain: Negative (1+) CAP CANCER CASE SUMMARY SPECIMEN Procedure: Excision [...] (when applicable) pM categories is based on informationavailable to the pathologist at the time the report is issued. As per the AJCC (Chapter 1, 8th Ed.) it is the managing physician's responsibility to establish the final pathologic stage based upon all pertinent information, including but potentially not limited to this pathology report. pT Category: pT1c pN Category: pNx Patient denies any family history of ovarian cancer however she has a cousin with breast cancer. She has a sister with multiple lumps under her breast but there were not cancerous. No known family history of ovarian cancer however hermwashington had mesothelioma. She does not know her father side because she does not know her biological father. 05/30/24: She is here for further planning of care after her left breast mastectomy and for results of the DEXA scan and Oncotype DX. Patient was sent to Dr. Bustamante for reconstructive breast surgeries as she is electing to go for bilateral mastectomy. She was also sent to our medical oncology clinic for recommendation regarding management of her new left breast cancer that is ER positive TX positive and HER2/pat negative but nolymph nodes were obtained as of this initial consult done on 02/08/2024. Surgery date yet to be determined [address] BRAUN. - Invitae gene testing done 03/01/24 was negative. -Bone density scan done on 02/15/2024 revealed osteopenia with a T-score of -1.4 in the left femoralneck. - Oncotype Dx score was done on the biopsy tissue based on unknown gwen statusat that time revealed: - If she is node-negative: Recurrence score of 5 with distant recurrence risk at 9 years of 3% withendocrine therapy alone with less than 1% benefit from the chemo. - If Node positive and premenopausal: Recurrence score will be 5 with distantrecurrence risk at 5 years 3% with her medicine better or endocrine therapy alone and chemo benefit 2.3%. -If she is postmenopausal and node positive the recurrence score is 5 with distant recurrence risk at 5 years with AI or tamoxifen alone is 1% and chemo benefit no apparent benefit noticed as it is less than 1% only. -If she has node positive of 4 or more lymph nodes then recurrence score is 5% and the distant recurrence at 9 years is 35% with AI and tamoxifen alone. -She underwent left breast mastectomy with sentinel node biopsy 05/16/2024, skin sparing with immediate reconstruction with tissue litharge supervisor by Dr. Bustamante. Surgical path from surgery done on 05/16/2024 revealed: A. Left axillary sentinel lymph node 1 out of 2 lymph nodes positive for metastatic carcinoma with mucinous features with extranodal extension again and 1 out of 2 lymph nodes. B. Lymph nodes in the left axillary sentinel lymph node 2 of 6 lymph nodes positive for metastatic carcinoma with mucinous features with extranodal extension. Left breast mastectomy revealed invasive ductal carcinoma with mucinous featuresgrade 2, 1.4 cm in greatest dimension. Ductal carcinoma in situ low-grade cribriform Lymphovascular invasion present Focal invasive carcinoma is present within 1 mm from inked inferior margin. Resection margins negative for DCIS with 5 mm from closest deep margin. Fibrocystic changes characterized by apocrine metaplasia and usual ductal hyperplasia with adenosisand microcalcification. Skin and nipple uninvolved by DCIS or invasive cancer Stage IIA, TNM stage is pT1c, pN1a. Number of lymph nodes with macrometastasis 3 and number of lymph nodes with isolated tumor cells 0 and number of lymph nodes with micrometastasis 0. Extranodal extension is present. ER positive over 90%, TX +80%, HER2 negative (1+), Ki-67 3% 07/31/24: She is here for 1 week toxicity check after cycle 1 of dose dense AC obtained orgiven on 07/24/2024. She tolerated C1 without any complaints but has same postnasal drainage for more than 4 weeks evenbefore chemo without sore throat or fevers. She tried Benadryl and can not take steroids due to allergy to steroids. She is scheduled for cycle 2 on 08/08/2024. Labs on 07/30/2024 revealed normal CBC with normal WBC of 5.7 normal ANC of 4.2 and unremarkable CMP. 08/21/24: She is here for evaluation prior to her C3 of the adjuvant ddAC scheduled on 08/22/24. She had mildfatigue and had nausea for 6 days after cycle 2 of dose dense AC but not vomiting and no chest painor shortness of breath or leg edema or abdominal pain or diarrhea. She has chronic peripheral neuropathy even before chemotherapy. No fevers or current infections. Her Zofran she took daily for 6 days after cycle 2 helped her nausea. 14 point review of systems was obtained and was negative. 09/03/24: She presents for cycle 4 ddAC. She continues with fatigue and dyspnea if she exerts herself, otherwise no chest pain or shortness of breath at rest. No change in her neuropathy with treatment. Her nausea has better controlled now that she is taking her antiemetics regularly. She is eating and drinking ok anddenies vomiting, diarrhea, or constipation. She denies other new concerns as well. Her labs remain okay for continued treatment. 09/17/24: She presents to clinic as an add-on for worsening symptoms. Her daughter is concerned that she has pneumonia as she has been having shortness of breath and not eating much at all. Vitals today note significant hypotension and decreasedheart rate. Her oxygen levels on arrival dropped between 70s/80sand she was placed on supplemental oxygen, up to 6 L in office before her sats improved intothe 90s. She has attempted to give a urine sample as she has concern for UTI aswell, however was not able to go. Given acute symptoms, we have decided to sendher to the ED for further evaluation. 09/19/24: She is admitted with a hemoglobin of 5.6 and found to have pneumonia as well as UTI during this admission evaluation with urine culture and was transfused 2 units of packed RBC and brought her hemoglobin up to 7.7 on 09/19/2024. Her platelet on admission on 09/17/2024 was 24K on 09/17/24 and they are 38K on 09/19/24 without evidence or signs of clinical bleeding. - Medical oncology was consulted for further recommendation regarding her anemia, thrombocytopenia and left breast cancer treatment considering that she missed her week 1 of the weekly Taxol scheduled on 09/18/24. Clinically she denied any melena or rectal bleeding or gross hematuria. She denies any hemoptysis however she has some right lower chest discomfort and cough likely from her pneumonia. She has some burning with her urination as well. 10/03/24: She is here for 2 weeks follow up after hospital admission for pneumonia, UTI, severe anemia and thrombocytopenia with hgb 5.6 and plt 24K (see above). Labs on 10/03/2024 revealed hemoglobin increased to 8.9 WBC is 9.8 and a plateletcount of is back tonormal 321. CMP are normal. She is here to resume her adjuvant chemo as she was supposed to start her week 1of adjuvant weekly Taxol prior to her recent admission. She feels much better. No more SOB and no CP or bleeding from any source. Intake Vitals/Pain Assessment 10/03/24 14:55 Weight 57.606 kg BP 137/84 Blood Pressure Location Rt brachial Position Sitting Temp 97.8 F Temp Source Temporal Pulse 100 Pulse Source NIBP Respiration 18 Pulse Oximetry (%) 97 Oxygen Delivery Method room air Intake Visit Reasons: 2WK INPT FOLLOW UP Accompanied by: Daughter Allergies Corticosteroids (Glucocorticoids) Allergy (Verified 10/03/24 15:00) Unknown Reaction metaxalone (From Skelaxin) Allergy (Verified 10/03/24 15:00) Unknown Reaction entex Allergy (Uncoded 10/03/24 15:00) Unknown Reaction - Last Reconciled 10/03/24 by MARY Chavarria alprazolam 0.25 mg PO TID PRN amoxicillin-pot clavulanate 875-125 mg 1 tab PO BID 30 days aspirin 81 mg PO DAILY cetirizine 10 mg PO DAILY cyclobenzaprine 10 mg PO HS PRN fluticasone propionate 50 mcg/actuation 1 spray intranasal BID gabapentin 300 mg PO TID losartan 25 mg PO DAILY metoprolol succinate ER 50 mg PO DAILY naloxone 4 mg/actuation 4 mg intranasal Q2-3M PRN ondansetron 8 mg PO Q8HR PRN oxycodone-acetaminophen 5-325 mg 1 tab PO Q8HR PRN 30 days prochlorperazine maleate (Compazine) 10 mg PO Q6HR PRN Gastrointestinal Is the patient taking opioids for pain control?: Yes Bowel Protocol for Opioids Given: Yes Bowel Pattern: Regular Bowel Movement Aid(s): None Falls Fall Precaution Measures Taken: Patient in chair Nurse's Note: Patient is here for a 2 week follow up with labs for review. States she is feeling much better. [facility] Medical History Medical History Osteopenia Encounter for screening for osteoporosis Breast cancer, left Hypertension Surgical History Surgical History History of knee surgery bilateral History of lumpectomy of left breast History of cholecystectomy History of appendectomy History of hysterectomy History of foot surgery multiple bilateral Family History Family History Family/Other Breast cancer Social History Social History (Updated 02/08/24 @ 15:26 by MARY Chavarria) Smoking status: Former smoker What tobacco products do you use: cigarettes Smoking quit date/years:>15 years ago Within the past year, how often did you have a drink containing alcohol: monthly or less In the past 12 months, have you used illegal drugs or prescription drugs for non-medical reasons?: No Review of Systems ROS Details: All systems reviewed & no additional complaints except as documented General: Patient denied fevers, chills, rigors, weight loss or loss of appetite. Head: Patient denied any headaches or vision changes Thoracic: Patient denied any shortness of breath or cough or hemoptysis Cardiovascular patient denies any chest pain or leg edema GI: Patient denies any nausea vomiting rectal bleed diarrhea : Patient denied gross hematuria. Hematology: Patient denied any bleeding from any source. No easy bruising. Lymphatic: No enlarged LAP anywhere. Skin: Normal skin exam no rashes or suspicious lesions. Neurological patient denies any headache or dizziness or focal weakness or sensory changes. Physical Exam EXAM ECOG performance status 1. HEENT normocephalic atraumatic pupils are equal and round Neck supple without thyromegaly or any cervical lymphadenopathy. Chest clear to auscultation bilaterally without wheezing crackles or rhonchi Heart regular rate and rhythm S1-S2 without murmurs gallop or rub Abdomen soft nontender not distended without hepatosplenomegaly or masses clinically Extremities no edema of the lower extremities Skin without any suspicious rashes Neurological exam patient is cooperative alert and oriented x3 no focal deficits. Results - [facility] ([facility]) LAB RESULTS Corrected WBC 9.8 X10E3/uL (3.8-11.6) 10/03/24 14: 5 Hgb 8.9 g/dL (11.8-15.4) L 10/03/24 14:10/03/24 Hct 26.6 % (34.0-46.4) L 10/03/24 14:10/03/24 MCV 95.7 fl (80-100) 10/03/24 14:08 10/03/24 RDW 16.5 % (11.9-15.3) H 10/03/24 14:08 10/03/24 Plt Count 321 x10E3/uL (150-450) 10/03/24 14:08 10/03/24 Sodium 137 mmol/L (136-145) 10/03/24 14:08 10/03/24 Potassium 4.2 mmol/L (3.5-5.1) 10/03/24 14:08 10/03/24 BUN 14 mg/dL (7-25) 10/03/24 14:08 10/03/24 Creatinine 0.74 mg/dL (0.60-1.20) 10/03/24 14:08 10/03/24 Glucose 108 mg/dL (70-100) H 10/03/24 14:08 10/03/24 Est GFR (CKD-EPI) > 60.0 mL/Min 10/03/24 14:08 10/03/24 Calcium 9.3 mg/dL (8.6-10.3) 10/03/24 14:08 10/03/24 Total Bilirubin 0.5 mg/dl (0.3-1.0) 10/03/24 14:08 10/03/24 AST 33 U/L (13-39) 10/03/24 14:08 10/03/24 ALT 40 U/L (7-52) 10/03/24 14:08 10/03/24 Alkaline Phosphatase 102 U/L (34-104) 10/03/24 14:08 10/03/24 Iron 30 ug/dL (50-212) L 09/24/24 04:45 09/24/24 Iron Saturation 17.8 % (20-50) L 09/24/24 04:45 09/24/24 Ferritin 2730.0 ng/mL (11.0-306.8) H 09/24/24 04:45 Total Protein 7.0 gm/dL (6.4-8.9) 10/03/24 14:08 10/03/24 Albumin 3.6 gm/dL (3.5-5.7) 10/03/24 14:08 10/03/24 Social Determinants of Health Screening Social determinants of health last assessed in clinic: 10/03/24 Will the patient participate in the screening?: Yes Do you worry about having a steady place to live?: No In the past 12 months, have you had to go without electric, gas, oil, or water in your home?: No Have you or anyone in your house had to go without enough food to eat?: No Has lack of reliable transportation kept you from medical appointments or from doing things needed for daily living?: No Has anyone in your support network made you feel unsafe for any reason?: No Does the patient want assistance with any of the above?: No Dictated By: Kush Glez MD DD/ [id number] Signed By: <Electronically signed by Kush Glez MD> 10/03/24 151 [facility] Work Phone: Progress note Author Kush Glez [facility], AvonNote Date/TimeApril 2024 11:12[facility] [place] [address] Cancer Center Note Signed Patient: Adelina Mir MR#: [id number] : 1960 Acct:[id number] Age/Sex: 64 / F Type: REG AMB Date of Service: 12/11/24 Copies to: Michael Holley MD~ Assessment & Plan A/P (1) Breast cancer, left: (2) Osteopenia: Plan Based on the biopsy done on 01/10/2024 it reveals pT1c, pNX, ER positive, TX positive, HER2/pat negative (1+), no DCIS, tumor size of the invasive ductal carcinoma is 1.7 cm at least with positive superior margin and no lymphovascularinvasion detected. No lymph nodes included in the biopsy. Patient was referredfor further surgical resection with bilateral mastectomy by Dr. Braun and Dr. Bustamante forreconstructive surgery. - Invitae gene testing done 03/01/24 was negative. -Bone density scan done on 02/15/2024 revealed osteopenia with a T-score of -1.4 in the left femoralneck. - Oncotype Dx score was done on the biopsy tissue based on unknown gwen statusat that time revealed: - If she is node-negative: Recurrence score of 5 with distant recurrence risk at 9 years of 3% withendocrine therapy alone with less than 1% benefit from the chemo. - If Node positive and premenopausal: Recurrence score will be 5 with distantrecurrence risk at 5 years 3% with her medicine better or endocrine therapy alone and chemo benefit 2.3%. -If she is postmenopausal and node positive the recurrence score is 5 with distant recurrence risk at 5 years with AI or tamoxifen alone is 1% and chemo benefit no apparent benefit noticed as it is less than 1% only. -If she has node positive of 4 or more lymph nodes then recurrence score is 5% and the distant recurrence at 9 years is 35% with AI and tamoxifen alone. -She underwent left breast mastectomy with sentinel node biopsy 05/16/2024, skin sparing with immediate reconstruction with tissue litharge supervisor by Dr. Bustamante. Surgical path from surgery done on 05/16/2024 revealed: A. Left axillary sentinel lymph node 1 out of 2 lymph nodes positive for metastatic carcinoma with mucinous features with extranodal extension again and 1 out of 2 lymph nodes. B. Lymph nodes in the left axillary sentinel lymph node 2 of 6 lymph nodes positive for metastatic carcinoma with mucinous features with extranodal extension. Left breast mastectomy revealed invasive ductal carcinoma with mucinous featuresgrade 2, 1.4 cm in greatest dimension. Ductal carcinoma in situ low-grade cribriform Lymphovascular invasion present Focal invasive carcinoma is present within 1 mm from inked inferior margin. Resection margins negative for DCIS with 5 mm from closest deep margin. Fibrocystic changes characterized by apocrine metaplasia and usual ductal hyperplasia with adenosisand microcalcification. Skin and nipple uninvolved by DCIS or invasive cancer Stage IIA, TNM stage is pT1c, pN1a. Number of lymph nodes with macrometastasis 3 and number of lymph nodes with isolated tumor cells 0 and number of lymph nodes with micrometastasis 0. Extranodal extension is present. ER positive over 90%, TX +80%, HER2 negative (1+), Ki-67 3% Treatment plan: After discussing the above findings from the surgical path with her and considering that she has extranodal extension of 3 out of 6 lymph nodes and lymphovascular invasion positive with 1.4 cm tumor that is grade 2, I recommended adjuvant chemo using dose dense AC followed by T followed by adjuvantradiation followed by adjuvant endocrine therapy. She agreed and signed the consent. Side effects were discussed with patient. 07/31/24: She is here for 1 week toxicity check after cycle 1 of dose dense AC obtained orgiven on 07/24/2024. She tolerated C1 without any complaints but has same postnasal drainage for more than 4 weeks evenbefore chemo without sore throat or fevers. She tried Benadryl and can not take steroids due to allergy to steroids. She is scheduled for cycle 2 on 08/08/2024. Labs on 07/30/2024 revealed normal CBC with normal WBC of 5.7 normal ANC of 4.2 and unremarkable CMP. - Proceeded with cycle 2 of dose dense AC on 08/08/2024. 08/21/24: She is here for evaluation prior to her C3 of the adjuvant ddAC scheduled on 08/22/24. She had mildfatigue and had nausea for 6 days after cycle 2 of dose dense AC but not vomiting and no chest painor shortness of breath or leg edema or abdominal pain or diarrhea. She has chronic peripheral neuropathy even before chemotherapy. No fevers or current infections. Her Zofran she took daily for 6 days after cycle 2 helped her nausea. PLAN: Proceed with C3 ddAC on 08/21/24 if labs meets criteria for chemo. Continue using calcium 500 mg twice daily and vitamin D 2000 unit daily for her mild osteopenia. Next DEXA scan is in 02/2026. I asked her to take her Zofran daily for the first week after each dose dense ACgiven. Weekly CBCs and CMP. Try pepcid and Zyrtec for postnasal drainage. Returns in 2 weeks for cycle 4 of dose dense AC. After she completes 4 cycles of ddAC she then can start weekly taxol 2 weeks after C4 of AC. 09/03/24: She continues to do fairly well with treatment and will receive cycle 4 ddAC this week. Her labs remain okay for continued treatment. She will follow-up in2 weeks with Dr. Bales with plans of starting her weekly Taxol at that visit as well. 09/17/24: Patient sent to ED for worsening symptoms, will likely hold off on initiation of Taxol this week given acute concerns. 09/19/24: She is admitted with a hemoglobin of 5.6 and found to have pneumonia as well as UTI during this admission evaluation with urine culture and was transfused 2 units of packed RBC and brought her hemoglobin up to 7.7 on 09/19/2024. Her platelet on admission on 09/17/2024 was 24K on 09/17/24 and they are 38K on 09/19/24 without evidence or signs of clinical bleeding. - Medical oncology was consulted for further recommendation regarding her anemia, thrombocytopenia and left breast cancer treatment considering that she missed her week 1 of the weekly Taxol scheduled on 09/18/24. Clinically she denied any melena or rectal bleeding or gross hematuria. She denies any hemoptysis however she has some right lower chest discomfort and cough likely from her pneumonia. She has some burning with her urination as well. 10/03/24: She is here for 2 weeks follow up after hospital admission for pneumonia, UTI, severe anemia and thrombocytopenia with hgb 5.6 and plt 24K (see above). Labs on 10/03/2024 revealed hemoglobin increased to 8.9 WBC is 9.8 and a plateletcount of is back tonormal 321. CMP are normal. She is here to resume her adjuvant chemo as she was supposed to start her week 1of adjuvant weekly Taxol prior to her recent admission. - She did not start her week1 of the weekly Taxol on 10/09/24 because of generalized weakness. 10/16/24: Patient is here for to start week1 of the weekly Taxol. No new complaints. Labs on 10/15/2024 revealed stable anemia hemoglobin 8.1 with normal WBC and platelet count and normal creatinine and LFTs. - Started weekly Taxol on 10/16/24. 10/30/24: Patient is here for week 3 of her adjuvant weekly Taxol out of the planned 12 weeks for her left breast cancer. No new complaints. No bleeding. no new masses or enlarged LNs. Labs on 10/29/2024 revealed stable anemia hemoglobin 8.9 with platelet 145 slightly lower than before and normal WBC and ANC. CMP is unremarkable. Iron studies revealed normal iron 81 with TIBC 321 normal iron saturation 25 and ferritin of 459 hide. She was given Cymbalta by Palliative for her neuropathy and it helped a lot. 12/11/24: Patient is here for week 9 of her adjuvant weekly Taxol. She is tolerating it well without changes on her neuropathy however she complains of distal painful swelling of both feet specially the left foot since September 2024 hospital admission. The swelling improved last week after 1 dose of Lasix given IV during the infusion treatment. She denied any fevers. She has slight erythema that has been stable since September 2024 the left foot. Once again no fever and no chills.. Labs are unremarkable except for mild stable anemia hgb 10.6. - I rechecked her blood pressure it came back 190/98 by my reading and it was 205/90 and by the midlevel during the triage. PLAN: Proceed with week 9 today. Give her 40 mg of IV Lasix upstairs today and start her on 20 mg oral Lasix daily for the next 2 weeks. Give her 40 mEq of potassium upstairs today orally and 20 mg of Klor-Con daily for the next 2 weeks. Change Zyrtec to Claritin daily. She cannot have steroids because she is allergic to steroid as tosee if this is gouty arthritisin the feet or allergic reaction to Taxol. Therefore we will try the Claritin. Can consider Pepcid as well. Will check uric acid to make sure is not gouty arthritis. And if it comes back high then we will start her on allopurinol. I asked her to see her PCP within the next 24 hours to better manage her uncontrolled hypertension. Continue B1/B6/B12 50/50/500 mg for neuropathy history. Continue Cymbalta for neuropathy as it helped a lot. Continue calcium and vit D for osteopenia. Refer her to Rad Onc to plan for adjuvant radiation after completing her adjuvant Taxol in 3 weeks. After she finished adjuvant radiation she is to start adjuvant endocrine therapy. Weekly CBC. CMP every 2 weeks. RTC in 3 weeks for week 12. Patient Instructions: lasix 20mg daily for 2 weeks with klor-con 20 lasix 40mg IV with treatment claritin OTC daily uric acid level proceed with treatment today refer to radiation return in 3 weeks CHEMO PLAN Treatment Plan Paclitaxel 80mg/m2 Weekly x 4 weeks Clinical Indication No Indication Cycle Number Last Admin 3 of 3 Cycle Day Next Admin No Active Chemotherapy History of Present Illness SHAE Sahu is a 63-year-old nice lady with history of generalized anxiety disorder, ADHD, complex regional pain syndrome of the lower extremity, essential tremor, hypertension and osteoarthritis to has idiopathic polyneuropathy and scoliosis with history of intermittent marijuana use as needed for paincontrol who was referred to our medical oncology clinic by Dr. Braun for new findings of new leftbreast invasive ductal carcinoma grade 2, ER positive, TX positive, HER2/pat negative 1+, 1.7 cm at least invasive ductal carcinoma, negative for lymphovascular invasion, positive superior margin of the invasive cancer, no DCIS presents and no lymph nodes were obtained as per the biopsy done on 01/10/2024. Patient has been having intermittent nipple discharge with possible fistula from the left breast but no nipple bleeding for several months. She hadBI-RADS 3 screening mammogram in April 2023 whichwas followed by ultrasound patient underwent initial biopsy of the suspicious left breast lesion on 07/12/2023 however results of the path of that biopsy was consistent with fibrovascular adipose tissue with no pathology present. Patient continues to have nipple discharge and Dr. Braun plan to do a lumpectomy however because of cardiac workup and clearance needed another biopsy was done on left breast underultrasound guidance and it came back also inconclusive in November 2023 which led to excisional biopsy performed on 01/10/2024. The path results of that excisionalbiopsy done on 01/10/2024 is as follows: Pathological Diagnosis 01/10/2024: Mass, left breast, 7:00, lumpectomy: Invasive ductal carcinoma. Tumor Is 1.7 Cm In Greatest Dimension. Grade 2/ Moderately Differentiated. Tumor is present at the superior surgical margin. Tumor Is less than 0.1 Cm From The anterior and lateral surgical Margins. No Evidence Of Lymphovascular Invasion. Breast Hormone Profile ER: Positive TX: Positive HER2/pat by immunostain: Negative (1+) CAP CANCER CASE SUMMARY SPECIMEN Procedure: Excision [...] (when applicable) pM categories is based on informationavailable to the pathologist at the time the report is issued. As per the AJCC (Chapter 1, 8th Ed.) it is the managing physician's responsibility to establish the final pathologic stage based upon all pertinent information, including but potentially not limited to this pathology report. pT Category: pT1c pN Category: pNx Patient denies any family history of ovarian cancer however she has a cousin with breast cancer. She has a sister with multiple lumps under her breast but there were not cancerous. No known family history of ovarian cancer however hermwashington had mesothelioma. She does not know her father side because she does not know her biological father. 05/30/24: She is here for further planning of care after her left breast mastectomy and for results of the DEXA scan and Oncotype DX. Patient was sent to Dr. Bustamante for reconstructive breast surgeries as she is electing to go for bilateral mastectomy. She was also sent to our medical oncology clinic for recommendation regarding management of her new left breast cancer that is ER positive TX positive and HER2/pat negative but nolymph nodes were obtained as of this initial consult done on 02/08/2024. Surgery date yet to be determined [address] BRAUN. - Invitae gene testing done 03/01/24 was negative. -Bone density scan done on 02/15/2024 revealed osteopenia with a T-score of -1.4 in the left femoralneck. - Oncotype Dx score was done on the biopsy tissue based on unknown gwen statusat that time revealed: - If she is node-negative: Recurrence score of 5 with distant recurrence risk at 9 years of 3% withendocrine therapy alone with less than 1% benefit from the chemo. - If Node positive and premenopausal: Recurrence score will be 5 with distantrecurrence risk at 5 years 3% with her medicine better or endocrine therapy alone and chemo benefit 2.3%. -If she is postmenopausal and node positive the recurrence score is 5 with distant recurrence risk at 5 years with AI or tamoxifen alone is 1% and chemo benefit no apparent benefit noticed as it is less than 1% only. -If she has node positive of 4 or more lymph nodes then recurrence score is 5% and the distant recurrence at 9 years is 35% with AI and tamoxifen alone. -She underwent left breast mastectomy with sentinel node biopsy 05/16/2024, skin sparing with immediate reconstruction with tissue litharge supervisor by Dr. Bustamante. Surgical path from surgery done on 05/16/2024 revealed: A. Left axillary sentinel lymph node 1 out of 2 lymph nodes positive for metastatic carcinoma with mucinous features with extranodal extension again and 1 out of 2 lymph nodes. B. Lymph nodes in the left axillary sentinel lymph node 2 of 6 lymph nodes positive for metastatic carcinoma with mucinous features with extranodal extension. Left breast mastectomy revealed invasive ductal carcinoma with mucinous featuresgrade 2, 1.4 cm in greatest dimension. Ductal carcinoma in situ low-grade cribriform Lymphovascular invasion present Focal invasive carcinoma is present within 1 mm from inked inferior margin. Resection margins negative for DCIS with 5 mm from closest deep margin. Fibrocystic changes characterized by apocrine metaplasia and usual ductal hyperplasia with adenosisand microcalcification. Skin and nipple uninvolved by DCIS or invasive cancer Stage IIA, TNM stage is pT1c, pN1a. Number of lymph nodes with macrometastasis 3 and number of lymph nodes with isolated tumor cells 0 and number of lymph nodes with micrometastasis 0. Extranodal extension is present. ER positive over 90%, TX +80%, HER2 negative (1+), Ki-67 3% 07/31/24: She is here for 1 week toxicity check [facility]. She tolerated C1 without any complaints but has same postnasal drainage for more than 4 weeks evenbefore chemo without sore throat or fevers. She tried Benadryl and can not take steroids due to allergy to steroids. She is scheduled for cycle 2 on 08/08/2024. Labs on 07/30/2024 revealed normal CBC with normal WBC of 5.7 normal ANC of 4.2 and unremarkable CMP. 08/21/24: She is here for evaluation prior to her C3 of the adjuvant ddAC scheduled on 08/22/24. She had mildfatigue and had nausea for 6 days after cycle 2 of dose dense AC but not vomiting and no chest painor shortness of breath or leg edema or abdominal pain or diarrhea. She has chronic peripheral neuropathy even before chemotherapy. No fevers or current infections. Her Zofran she took daily for 6 days after cycle 2 helped her nausea. 14 point review of systems was obtained and was negative. 09/03/24: She presents for cycle 4 ddAC. She continues with fatigue and dyspnea if she exerts herself, otherwise no chest pain or shortness of breath at rest. No change in her neuropathy with treatment. Her nausea has better controlled now that she is taking her antiemetics regularly. She is eating and drinking ok anddenies vomiting, diarrhea, or constipation. She denies other new concerns as well. Her labs remain okay for continued treatment. 09/17/24: She presents to clinic as an add-on for worsening symptoms. Her daughter is concerned that she has pneumonia as she has been having shortness of breath and not eating much at all. Vitals today note significant hypotension and decreasedheart rate. Her oxygen levels on arrival dropped between 70s/80sand she was placed on supplemental oxygen, up to 6 L in office before her sats improved intothe 90s. She has attempted to give a urine sample as she has concern for UTI aswell, however was not able to go. Given acute symptoms, we have decided to sendher to the ED for further evaluation. 09/19/24: She is admitted with a hemoglobin of 5.6 and found to have pneumonia as well as UTI during this admission evaluation with urine culture and was transfused 2 units of packed RBC and brought her hemoglobin up to 7.7 on 09/19/2024. Her platelet on admission on 09/17/2024 was 24K on 09/17/24 and they are 38K on 09/19/24 without evidence or signs of clinical bleeding. - Medical oncology was consulted for further recommendation regarding her anemia, thrombocytopenia and left breast cancer treatment considering that she missed her week 1 of the weekly Taxol scheduled on 09/18/24. Clinically she denied any melena or rectal bleeding or gross hematuria. She denies any hemoptysis however she has some right lower chest discomfort and cough likely from her pneumonia. She has some burning with her urination as well. 10/03/24: She is here for 2 weeks follow up after hospital admission for pneumonia, UTI, severe anemia and thrombocytopenia with hgb 5.6 and plt 24K (see above). Labs on 10/03/2024 revealed hemoglobin increased to 8.9 WBC is 9.8 and a plateletcount of is back tonormal 321. CMP are normal. She is here to resume her adjuvant chemo as she was supposed to start her week 1of adjuvant weekly Taxol prior to her recent admission. She feels much better. No more SOB and no CP or bleeding from any source. 10/16/24: Patient is here for to start week1 of the weekly Taxol. No new complaints. Labs on 10/15/2024 revealed stable anemia hemoglobin 8.1 with normal WBC and platelet count and normal creatinine and LFTs. 10/30/24: Patient is here for week 3 of her adjuvant weekly Taxol out of the planned 12 weeks for her left breast cancer. No new complaints. No bleeding. no new masses or enlarged LNs. Labs on 10/29/2024 revealed stable anemia hemoglobin 8.9 with platelet 145 slightly lower than before and normal WBC and ANC. CMP is unremarkable. Iron studies revealed normal iron 81 with TIBC 321 normal iron saturation 25 and ferritin of 459 hide. She was given Cymbalta by Palliative for her neuropathy and it helped a lot. 12/11/24: Patient is here for week 9 of her adjuvant weekly Taxol. She is tolerating it well without changes on her neuropathy however she complains of distal painful swelling of both feet specially the left foot since September 2024 hospital admission. The swelling improved last week after 1 dose of Lasix given IV during the infusion treatment. She denied any fevers. She has slight erythema that has been stable since September 2024 the left foot. Once again no fever and no chills.. Labs are unremarkable except for mild stable anemia hgb 10.6. - I rechecked her blood pressure it came back 190/98 by my reading and it was 205/90 and by the midlevel during the triage. Intake Vitals/Pain Assessment 12/11/24 10:43 12/11/24 10:49 Height 5 ft 7 in Weight 58.967 kg BMI 20.3 Body Fat % 33.51 BP 216/89 H 205/90 H Position Sitting Temp 97.9 F Temp Source Temporal Pulse 94 Pulse Source NIBP Respiration 18 Pulse Oximetry (%) 98 Oxygen Delivery Method room air Are you having pain? Yes Pain Location generalized Pain scale (0-10) 6 Intake Visit Reasons: f/u prior to tx Accompanied by: Daughter Allergies Corticosteroids (Glucocorticoids) Allergy (Verified 12/11/24 10:47) Unknown Reaction metaxalone (From Skelaxin) Allergy (Verified 12/11/24 10:47) Unknown Reaction entex Allergy (Uncoded 12/11/24 10:47) Unknown Reaction Home Medications - Last Reconciled 12/11/24 by MARY Chavarria alprazolam 0.25 mg PO TID PRN aspirin 81 mg PO DAILY cetirizine 10 mg PO DAILY cyclobenzaprine 10 mg PO HS PRN duloxetine 30 mg PO QDAY 30 days fluticasone propionate 50 mcg/actuation 1 spray intranasal BID gabapentin 300 mg PO TID losartan 25 mg PO DAILY metoprolol succinate ER 50 mg PO DAILY naloxone 4 mg/actuation 4 mg intranasal Q2-3M PRN ondansetron 8 mg PO Q8HR PRN oxycodone-acetaminophen 5-325 mg 1 tab PO Q6HR PRN 30 days prochlorperazine maleate (Compazine) 10 mg PO Q6HR PRN Gastrointestinal Is the patient taking opioids for pain control?: Yes Bowel Protocol for Opioids Given: Yes Bowel Pattern: Regular Bowel Movement Aid(s): Laxative (senna) Falls Fall Precaution Measures Taken: Patient in chair Nurse's Note: Patient is here for a 6 week follow up with labs for review, prior to treatment today. [facility] History Attestation statement: The following information was validated with the patient. Medical History Medical History Breast cancer, left Immunosuppressed due to chemotherapy Pneumonia Bacteremia due to Streptococcus pneumoniae Acute anemia Pancytopenia UTI (urinary tract infection) Pneumonia Osteopenia Encounter for screening for osteoporosis Hypertension Surgical History Surgical History History of knee surgery bilateral History of lumpectomy of left breast History of cholecystectomy History of appendectomy History of hysterectomy History of foot surgery multiple bilateral Family History Family History Family/Other Breast cancer Social History Social History Smoking status: Former smoker What tobacco products do you use: cigarettes Smoking quit date/years:>15 years ago Within the past year, how often did you have a drink containing alcohol: monthly or less In the past 12 months, have you used illegal drugs or prescription drugs for non-medical reasons?: No Review of Systems ROS Details: All systems reviewed & no additional complaints except as documented General: Patient denied fevers, chills, rigors, weight loss or loss of appetite. Head: Patient denied any headaches or vision changes Thoracic: Patient denied any shortness of breath or cough or hemoptysis Cardiovascular patient denies any chest pain or leg edema GI: Patient denies any nausea vomiting rectal bleed diarrhea : Patient denied gross hematuria. Hematology: Patient denied any bleeding from any source. No easy bruising. Lymphatic: No enlarged LAP anywhere. Skin: Normal skin exam no rashes or suspicious lesions. Neurological patient denies any headache or dizziness or focal weakness or sensory changes. Physical Exam EXAM ECOG performance status 1. HEENT normocephalic atraumatic pupils are equal and round Neck supple without thyromegaly or any cervical lymphadenopathy. Chest clear to auscultation bilaterally without wheezing crackles or rhonchi Heart regular rate and rhythm S1-S2 without murmurs gallop or rub Abdomen soft nontender not distended without hepatosplenomegaly or masses clinically Extremities no edema of the lower extremities Skin without any suspicious rashes Neurological exam patient is cooperative alert and oriented x3 no focal deficits. Results - [facility] ([facility] LAB RESULTS Corrected WBC 4.3 X10E3/uL (3.8-11.6) 12/10/24 14: 5 Hgb 10.6 g/dL (11.8-15.4) L 12/10/24 14: 5 Hct 31.2 % (34.0-46.4) L 12/10/24 14:12/10/24 MCV 103.0 fl (80-100) H 12/10/24 14:12/10/24 RDW 17.5 % (11.9-15.3) H 12/10/24 14:12/10/24 Plt Count 225 x10E3/uL (150-450) 12/10/24 14:12/10/24 Sodium 138 mmol/L (136-145) 12/10/24 14:12/10/24 Potassium 4.4 mmol/L (3.5-5.1) 12/10/24 14:12/10/24 BUN 16 mg/dL (7-25) 12/10/24 14:12/10/24 Creatinine 0.90 mg/dL (0.60-1.20) 12/10/24 14:00 12/10/24 Glucose 100 mg/dL (70-100) 12/10/24 14:00 12/10/24 Est GFR (CKD-EPI) > 60.0 mL/Min 12/10/24 14:00 12/10/24 Calcium 9.8 mg/dL (8.6-10.3) 12/10/24 14:00 12/10/24 Total Bilirubin 0.3 mg/dl (0.3-1.0) 12/10/24 14:00 12/10/24 AST 20 U/L (13-39) 12/10/24 14:00 12/10/24 ALT 12 U/L (7-52) 12/10/24 14:00 12/10/24 Alkaline Phosphatase 57 U/L (34-104) 12/10/24 14:00 12/10/24 Total Protein 6.7 gm/dL (6.4-8.9) 12/10/24 14:00 12/10/24 Albumin 3.9 gm/dL (3.5-5.7) 12/10/24 14:00 12/10/24 Social Determinants of Health Screening SDOH last assessed in clinic: 12/11/24 Will the patient participate in the screening?: Yes Do you worry about having a steady place to live?: No In the past 12 months, have you had to go without electric, gas, oil, or water in your home?: No Have you or anyone in your house had to go without enough food to eat?: No Has lack of reliable transportation kept you from medical appointments or from doing things needed for daily living?: No Has anyone in your support network made you feel unsafe for any reason?: No Does the patient want assistance with any of the above?: No Dictated By: Kush Glez MD DD/ [id number] Signed By: <Electronically signed by Kush Glez MD> 12/11/24 1112 [facility] Work Phone: Progress note Author Elda Hurtado [facility], [place]onNote Date/TimeApril 2024 4:54[place] [address] Palliative Medicine Encounter Patient: Adelina Mir MR#: [id number] : 1960 Acct:[id number] Age/Sex: 64 / F Copies to: SOLA Wilcox MD~ HPI Date of Visit Date of Visit: 12/19/2024 Chief Complaint: Alannah is here for follow up at time of chemo. She was to continue Percocet 5/325mg, Duloxetine 30 mgand Gabapentin 300 mg at last office visit HPI: Alannah is seen and examined; interim period and pertinent symptoms reviewed below and detailed in ESAS: Continues chemo until the end of the month, then will have radiation Pain in the feet is most bothersome (top of feet and heels), also experiences pain in the lower legs, knees, hips - prolonged activity will aggravate but usesactivity as a distraction - gets a littlerelief with Percocet Feeling more anxious, BP has been elevated Intake Allergies Corticosteroids (Glucocorticoids) Allergy (Verified 12/11/24 10:47) Unknown Reaction metaxalone (From Skelaxin) Allergy (Verified 12/11/24 10:47) Unknown Reaction entex Allergy (Uncoded 12/11/24 10:47) Unknown Reaction Home Medications ?Medication ?Instructions ?Recorded ?Confirmed alprazolam 0.25 mg tablet 0.25 mg PO TID PRN anxiety 02/08/24 12/11/24 aspirin 81 mg tablet,delayed 81 mg PO DAILY 02/08/24 12/11/24 release cyclobenzaprine 10 mg tablet 10 mg PO HS PRN muscle spasm 02/08/24 12/11/24 gabapentin 300 mg capsule 300 mg PO TID 02/08/24 12/11/24 ondansetron 8 mg disintegrating 8 mg PO Q8HR PRN nausea and 05/30/24 12/11/24 tablet vomiting #30 tabs prochlorperazine maleate 10 mg 10 mg PO Q6HR PRN nausea and 05/30/24 12/11/24 tablet (Compazine) vomiting #30 tabs naloxone 4 mg/actuation nasal spray 4 mg intranasal Q2-3M PRN opioid 08/22/24 12/11/24 overdose #2 ea cetirizine 10 mg tablet 10 mg PO DAILY 09/17/24 12/11/24 fluticasone propionate 50 1 spray intranasal BID 09/17/24 12/11/24 mcg/actuation nasal spray,suspension losartan 25 mg tablet 25 mg PO DAILY #30 tabs 09/25/24 12/11/24 metoprolol succinate 50 mg 50 mg PO DAILY #30 tabs 09/25/24 12/11/24 tablet,extended release 24 hr duloxetine 30 mg capsule,delayed 30 mg PO QDAY 30 days #30 caps 10/30/24 12/11/24 release furosemide 20 mg tablet (Lasix) 20 mg PO DAILY #30 tabs 12/11/24 12/11/24 potassium chloride 20 mEq 20 meq PO DAILY #30 tabs 12/11/24 12/11/24 tablet,extended release(part/cryst) (Klor-Con M) oxycodone-acetaminophen 10 mg-325 1 tab PO Q4-6H PRN pain 30 days 12/19/24 mg tablet #150 tabs Is patient having pain?: Yes PMFSH Medical History Breast cancer, left Immunosuppressed due to chemotherapy Pneumonia Bacteremia due to Streptococcus pneumoniae Acute anemia Pancytopenia UTI (urinary tract infection) Pneumonia Osteopenia Encounter for screening for osteoporosis Hypertension Surgical History History of knee surgery bilateral History of lumpectomy of left breast History of cholecystectomy History of appendectomy History of hysterectomy History of foot surgery multiple bilateral Family History Family/Other Breast cancer Social History Smoking Status: Former smoker Tobacco Type: cigarettes Substance Use Type: Prescribed and Marijuana Substance Abuse Comment: marijuana medical [place] Symptom Assessment Scale Pain: bilateral feet pain, radiates up legs /makes her walk differently then hips bother her unable to do much for long Nausea/Vomiting: mild intermittent nausea, denies vomiting Anorexia: decreased, poor appetite/ does have new dentures coming she feels this will help Dyspnea: denies Constipation: improved using Miralax and Senna daily Drowsiness: naps almost daily Fatigue: moderate / decreased energy Insomnia: denies Depression/Mood: stable Anxiety: increased anxiety with increased/ uncontrolled pain Exam Exam General - A&O, accompanied by daughter HEENT - EOM intact, oral mucosa pink/moist Lungs - normal respiratory effort with conversation Abdomen - soft, non-distended Extremities - normal ROM, no edema Psychiatric - pleasant, cooperative, normal mood/affect Assessment & Plan Assessment & Plan (1) Cancer associated pain: Plan: Alannah reports increasing pain in her feet with ongoing chemo, Percocet 5-325 tabsno longer providingadequate relief, will adjust dosage to improve pain control and reassess in 1 week during chemo Continue Gabapentin 300 mg TID without change Stop Percocet 5/325 mg QID Start Percocet 10/325 mg QID (2) Adjustment disorder with mixed anxiety and depressed mood: Plan: Admits to feeling a little more anxious lately but is managing this well, duloxetine helps Continue Duloxetine 30 mg daily without change (3) Breast cancer, left: Qualifiers: Breast location: unspecified site of breast Estrogen receptor status: positive Patient sex: female Qualified Code(s): C50.912 - Malignant neoplasm of unspecified site of left female breast; Z17.0 - Estrogen receptor positive status [ER+] Plan: 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 Completed 4 cycles of AC chemotherapy and continues therapy with weekly taxol; will undergo adjuvant radiation after completion of scheduled taxol Attestation: The above note written by Kimberly Carnes MA acting as human recorder, note dictated by Elda Hurtado APRN, [employer] ACHPN Dictated By: Elda Hurtado APRN DD/ [id number] Signed By: <Electronically signed by SOLA Hurtado> 12/23/24 1654 [facility] Work Phone: Progress note Author Kush Glez [facility], [facility] Date/TimeApril 2024 10:12am [facility] [place] [address] Cancer Center Note Signed Patient: Adelina Mir MR#: [id number] : 1960 Acct:[id number] Age/Sex: 64 / F Type: REG AMB Date of Service: 01/01/25 Copies to: Michael Holley MD~ Assessment & Plan A/P (1) Breast cancer, left: (2) Osteopenia: Plan Based on the biopsy done on 01/10/2024 it reveals pT1c, pNX, ER positive, TX positive, HER2/pat negative (1+), no DCIS, tumor size of the invasive ductal carcinoma is 1.7 cm at least with positive superior margin and no lymphovascularinvasion detected. No lymph nodes included in the biopsy. Patient was referredfor further surgical resection with bilateral mastectomy by Dr. Braun and Dr. Bustamante forreconstructive surgery. - Invitae gene testing done 03/01/24 was negative. -Bone density scan done on 02/15/2024 revealed osteopenia with a T-score of -1.4 in the left femoralneck. - Oncotype Dx score was done on the biopsy tissue based on unknown gwen statusat that time revealed: - If she is node-negative: Recurrence score of 5 with distant recurrence risk at 9 years of 3% withendocrine therapy alone with less than 1% benefit from the chemo. - If Node positive and premenopausal: Recurrence score will be 5 with distantrecurrence risk at 5 years 3% with her medicine better or endocrine therapy alone and chemo benefit 2.3%. -If she is postmenopausal and node positive the recurrence score is 5 with distant recurrence risk at 5 years with AI or tamoxifen alone is 1% and chemo benefit no apparent benefit noticed as it is less than 1% only. -If she has node positive of 4 or more lymph nodes then recurrence score is 5% and the distant recurrence at 9 years is 35% with AI and tamoxifen alone. -She underwent left breast mastectomy with sentinel node biopsy 05/16/2024, skin sparing with immediate reconstruction with tissue litharge supervisor by Dr. Bustamante. Surgical path from surgery done on 05/16/2024 revealed: A. Left axillary sentinel lymph node 1 out of 2 lymph nodes positive for metastatic carcinoma with mucinous features with extranodal extension again and 1 out of 2 lymph nodes. B. Lymph nodes in the left axillary sentinel lymph node 2 of 6 lymph nodes positive for metastatic carcinoma with mucinous features with extranodal extension. Left breast mastectomy revealed invasive ductal carcinoma with mucinous featuresgrade 2, 1.4 cm in greatest dimension. Ductal carcinoma in situ low-grade cribriform Lymphovascular invasion present Focal invasive carcinoma is present within 1 mm from inked inferior margin. Resection margins negative for DCIS with 5 mm from closest deep margin. Fibrocystic changes characterized by apocrine metaplasia and usual ductal hyperplasia with adenosisand microcalcification. Skin and nipple uninvolved by DCIS or invasive cancer Stage IIA, TNM stage is pT1c, pN1a. Number of lymph nodes with macrometastasis 3 and number of lymph nodes with isolated tumor cells 0 and number of lymph nodes with micrometastasis 0. Extranodal extension is present. ER positive over 90%, TX +80%, HER2 negative (1+), Ki-67 3% Treatment plan: After discussing the above findings from the surgical path with her and considering that she has extranodal extension of 3 out of 6 lymph nodes and lymphovascular invasion positive with 1.4 cm tumor that is grade 2, I recommended adjuvant chemo using dose dense AC followed by T followed by adjuvantradiation followed by adjuvant endocrine therapy. She agreed and signed the consent. Side effects were discussed with patient. 07/31/24: She is here for 1 week toxicity check after cycle 1 of dose dense AC obtained orgiven on 07/24/2024. She tolerated C1 without any complaints but has same postnasal drainage for more than 4 weeks evenbefore chemo without sore throat or fevers. She tried Benadryl and can not take steroids due to allergy to steroids. She is scheduled for cycle 2 on 08/08/2024. Labs on 07/30/2024 revealed normal CBC with normal WBC of 5.7 normal ANC of 4.2 and unremarkable CMP. - Proceeded with cycle 2 of dose dense AC on 08/08/2024. 08/21/24: She is here for evaluation prior to her C3 of the adjuvant ddAC scheduled on 08/22/24. She had mildfatigue and had nausea for 6 days after cycle 2 of dose dense AC but not vomiting and no chest painor shortness of breath or leg edema or abdominal pain or diarrhea. She has chronic peripheral neuropathy even before chemotherapy. No fevers or current infections. Her Zofran she took daily for 6 days after cycle 2 helped her nausea. PLAN: Proceed with C3 ddAC on 08/21/24 if labs meets criteria for chemo. Continue using calcium 500 mg twice daily and vitamin D 2000 unit daily for her mild osteopenia. Next DEXA scan is in 02/2026. I asked her to take her Zofran daily for the first week after each dose dense ACgiven. Weekly CBCs and CMP. Try pepcid and Zyrtec for postnasal drainage. Returns in 2 weeks for cycle 4 of dose dense AC. After she completes 4 cycles of ddAC she then can start weekly taxol 2 weeks after C4 of AC. 09/03/24: She continues to do fairly well with treatment and will receive cycle 4 ddAC this week. Her labs remain okay for continued treatment. She will follow-up in2 weeks with Dr. Bales with plans of starting her weekly Taxol at that visit as well. 09/17/24: Patient sent to ED for worsening symptoms, will likely hold off on initiation of Taxol this week given acute concerns. 09/19/24: She is admitted with a hemoglobin of 5.6 and found to have pneumonia as well as UTI during this admission evaluation with urine culture and was transfused 2 units of packed RBC and brought her hemoglobin up to 7.7 on 09/19/2024. Her platelet on admission on 09/17/2024 was 24K on 09/17/24 and they are 38K on 09/19/24 without evidence or signs of clinical bleeding. - Medical oncology was consulted for further recommendation regarding her anemia, thrombocytopenia and left breast cancer treatment considering that she missed her week 1 of the weekly Taxol scheduled on 09/18/24. Clinically she denied any melena or rectal bleeding or gross hematuria. She denies any hemoptysis however she has some right lower chest discomfort and cough likely from her pneumonia. She has some burning with her urination as well. 10/03/24: She is here for 2 weeks follow up after hospital admission for pneumonia, UTI, severe anemia and thrombocytopenia with hgb 5.6 and plt 24K (see above). Labs on 10/03/2024 revealed hemoglobin increased to 8.9 WBC is 9.8 and a plateletcount of is back tonormal 321. CMP are normal. She is here to resume her adjuvant chemo as she was supposed to start her week 1of adjuvant weekly Taxol prior to her recent admission. - She did not start her week1 of the weekly Taxol on 10/09/24 because of generalized weakness. 10/16/24: Patient is here for to start week1 of the weekly Taxol. No new complaints. Labs on 10/15/2024 revealed stable anemia hemoglobin 8.1 with normal WBC and platelet count and normal creatinine and LFTs. - Started weekly Taxol on 10/16/24. 10/30/24: Patient is here for week 3 of her adjuvant weekly Taxol out of the planned 12 weeks for her left breast cancer. No new complaints. No bleeding. no new masses or enlarged LNs. Labs on 10/29/2024 revealed stable anemia hemoglobin 8.9 with platelet 145 slightly lower than before and normal WBC and ANC. CMP is unremarkable. Iron studies revealed normal iron 81 with TIBC 321 normal iron saturation 25 and ferritin of 459 hide. She was given Cymbalta by Palliative for her neuropathy and it helped a lot. 12/11/24: Patient is here for week 9 of her adjuvant weekly Taxol. She is tolerating it well without changes on her neuropathy however she complains of distal painful swelling of both feet specially the left foot since September 2024 hospital admission. The swelling improved last week after 1 dose of Lasix given IV during the infusion treatment. She denied any fevers. She has slight erythema that has been stable since September 2024 the left foot. Once again no fever and no chills.. Labs are unremarkable except for mild stable anemia hgb 10.6. - I rechecked her blood pressure it came back 190/98 by my reading and it was 205/90 and by the midlevel during the triage. 01/01/25: She is here for week 12 of her weekly Taxol. She is tolerating it well with stable neuropathy. She is scheduled to start her adjuvant radiation on 02/04/25. her PCP started her on Cymbalta in addition to her gabapentin for her neuropathyof the feet which is helping a lot. The swelling n the left foot is same as before and did not improve on Lasix. Thus stop lasix and klor con and tray Ibuprofen 400 mg bid with food for 7-10 days with use of pantoprazole 40 mg daily for 2 weeks. PLAN: Proceed with week 12 Taxol today. her PCP started her on Cymbalta in addition to her gabapentin for her neuropathyof the feet which is helping a lot. The swelling n the left foot is same as before and did not improve on Lasix. Thus stop lasix and klor con and tray Ibuprofen 400 mg bid with food for 7-10 days with use of pantoprazole 40 mg daily for 2 weeks. Continue B1/B6/B12 50/50/500 mg for neuropathy history. Continue Cymbalta for neuropathy as it helped a lot. Continue calcium and vit D for osteopenia. Start Fosamax 70 mg once a week for her osteopenia seen on DEXA in 03/2024. proceed with adjuvant radiation as scheduled on 02/04/25. After she finished adjuvant radiation she is to start adjuvant endocrine therapywith Femara 2.5 mg once daily. RTC in 10 weeks with LFTs prior. / / Patient Instructions: Left foot xray will start femara after XRT see 6 weeks after start of femara with cmp start fosamax stop lasix and K+ CHEMO PLAN Treatment Plan Paclitaxel 80mg/m2 Weekly x 4 weeks Clinical Indication No Indication Cycle Number Last Admin 3 of 3 Completed Cycle Day Next Admin No Active Chemotherapy History of Present Illness SHAE Sahu is a 63-year-old nice lady with history of generalized anxiety disorder, ADHD, complex regional pain syndrome of the lower extremity, essential tremor, hypertension and osteoarthritis to has idiopathic polyneuropathy and scoliosis with history of intermittent marijuana use as needed for paincontrol who was referred to our medical oncology clinic by Dr. Braun for new findings of new leftbreast invasive ductal carcinoma grade 2, ER positive, TX positive, HER2/pat negative 1+, 1.7 cm at least invasive ductal carcinoma, negative for lymphovascular invasion, positive superior margin of the invasive cancer, no DCIS presents and no lymph nodes were obtained as per the biopsy done on 01/10/2024. Patient has been having intermittent nipple discharge with possible fistula from the left breast but no nipple bleeding for several months. She hadBI-RADS 3 screening mammogram in April 2023 whichwas followed by ultrasound patient underwent initial biopsy of the suspicious left breast lesion on 07/12/2023 however results of the path of that biopsy was consistent with fibrovascular adipose tissue with no pathology present. Patient continues to have nipple discharge and Dr. Braun plan to do a lumpectomy however because of cardiac workup and clearance needed another biopsy was done on left breast underultrasound guidance and it came back also inconclusive in November 2023 which led to excisional biopsy performed on 01/10/2024. The path results of that excisionalbiopsy done on 01/10/2024 is as follows: Pathological Diagnosis 01/10/2024: Mass, left breast, 7:00, lumpectomy: Invasive ductal carcinoma. Tumor Is 1.7 Cm In Greatest Dimension. Grade 2/ Moderately Differentiated. Tumor is present at the superior surgical margin. Tumor Is less than 0.1 Cm From The anterior and lateral surgical Margins. No Evidence Of Lymphovascular Invasion. Breast Hormone Profile ER: Positive TX: Positive HER2/pat by immunostain: Negative (1+) CAP CANCER CASE SUMMARY SPECIMEN Procedure: Excision [...] (when applicable) pM categories is based on informationavailable to the pathologist at the time the report is issued. As per the AJCC (Chapter 1, 8th Ed.) it is the managing physician's responsibility to establish the final pathologic stage based upon all pertinent information, including but potentially not limited to this pathology report. pT Category: pT1c pN Category: pNx Patient denies any family history of ovarian cancer however she has a cousin with breast cancer. She has a sister with multiple lumps under her breast but there were not cancerous. No known family history of ovarian cancer however hermom had mesothelioma. She does not know her father side because she does not know her biological father. 05/30/24: She is here for further planning of care after her left breast mastectomy and for results of the DEXA scan and Oncotype DX. Patient was sent to Dr. Bustamante for reconstructive breast surgeries as she is electing to go for bilateral mastectomy. She was also sent to our medical oncology clinic for recommendation regarding management of her new left breast cancer that is ER positive TX positive and HER2/pat negative but nolymph nodes were obtained as of this initial consult done on 02/08/2024. Surgery date yet to be determined [address] BRAUN. - Invitae gene testing done 03/01/24 was negative. -Bone density scan done on 02/15/2024 revealed osteopenia with a T-score of -1.4 in the left femoralneck. - Oncotype Dx score was done on the biopsy tissue based on unknown gwen statusat that time revealed: - If she is node-negative: Recurrence score of 5 with distant recurrence risk at 9 years of 3% withendocrine therapy alone with less than 1% benefit from the chemo. - If Node positive and premenopausal: Recurrence score will be 5 with distantrecurrence risk at 5 years 3% with her medicine better or endocrine therapy alone and chemo benefit 2.3%. -If she is postmenopausal and node positive the recurrence score is 5 with distant recurrence risk at 5 years with AI or tamoxifen alone is 1% and chemo benefit no apparent benefit noticed as it is less than 1% only. -If she has node positive of 4 or more lymph nodes then recurrence score is 5% and the distant recurrence at 9 years is 35% with AI and tamoxifen alone. -She underwent left breast mastectomy with sentinel node biopsy 05/16/2024, skin sparing with immediate reconstruction with tissue litharge supervisor by Dr. Bustamante. Surgical path from surgery done on 05/16/2024 revealed: A. Left axillary sentinel lymph node 1 out of 2 lymph nodes positive for metastatic carcinoma with mucinous features with extranodal extension again and 1 out of 2 lymph nodes. B. Lymph nodes in the left axillary sentinel lymph node 2 of 6 lymph nodes positive for metastatic carcinoma with mucinous features with extranodal extension. Left breast mastectomy revealed invasive ductal carcinoma with mucinous featuresgrade 2, 1.4 cm in greatest dimension. Ductal carcinoma in situ low-grade cribriform Lymphovascular invasion present Focal invasive carcinoma is present within 1 mm from inked inferior margin. Resection margins negative for DCIS with 5 mm from closest deep margin. Fibrocystic changes characterized by apocrine metaplasia and usual ductal hyperplasia with adenosisand microcalcification. Skin and nipple uninvolved by DCIS or invasive cancer Stage IIA, TNM stage is pT1c, pN1a. Number of lymph nodes with macrometastasis 3 and number of lymph nodes with isolated tumor cells 0 and number of lymph nodes with micrometastasis 0. Extranodal extension is present. ER positive over 90%, TX +80%, HER2 negative (1+), Ki-67 3% 07/31/24: She is here for 1 week toxicity check after cycle 1 of dose dense AC obtained orgiven on 07/24/2024. She tolerated C1 without any complaints but has same postnasal drainage for more than 4 weeks evenbefore chemo without sore throat orfevers. She tried Benadryl and can not take steroids due to allergy to steroids. She is scheduled for cycle 2 on 08/08/2024. Labs on 07/30/2024 revealed normal CBC with normal WBC of 5.7 normal ANC of 4.2 and unremarkable CMP. 08/21/24: She is here for evaluation prior to her C3 of the adjuvant ddAC scheduled on 08/22/24. She had mildfatigue and had nausea for 6 days after cycle 2 of dose dense AC but not vomiting and no chest painor shortness of breath or leg edema or abdominal pain or diarrhea. She has chronic peripheral neuropathy even before chemotherapy. No fevers or current infections. Her Zofran she took daily for 6 days after cycle 2 helped her nausea. 14 point review of systems was obtained and was negative. 09/03/24: She presents for cycle 4 ddAC. She continues with fatigue and dyspnea if she exerts herself, otherwise no chest pain or shortness of breath at rest. No change in her neuropathy with treatment. Her nausea has better controlled now that she is taking her antiemetics regularly. She is eating and drinking ok anddenies vomiting, diarrhea, or constipation. She denies other new concerns as well. Her labs remain okay for continued treatment. 09/17/24: She presents to clinic as an add-on for worsening symptoms. Her daughter is concerned that she has pneumonia as she has been having shortness of breath and not eating much at all. Vitals today note significant hypotension and decreasedheart rate. Her oxygen levels on arrival dropped between 70s/80sand she was placed on supplemental oxygen, up to 6 L in office before her sats improved intothe 90s. She has attempted to give a urine sample as she has concern for UTI aswell, however was not able to go. Given acute symptoms, we have decided to sendher to the ED for further evaluation. 09/19/24: She is admitted with a hemoglobin of 5.6 and found to have pneumonia as well as UTI during this admission evaluation with urine culture and was transfused 2 units of packed RBC and brought her hemoglobin up to 7.7 on 09/19/2024. Her platelet on admission on 09/17/2024 was 24K on 09/17/24 and they are 38K on 09/19/24without evidence or signs of clinical bleeding. - Medical oncology was consulted for further recommendation regarding her anemia, thrombocytopenia and left breast cancer treatment considering that she missed her week 1 of the weekly Taxol scheduled on 09/18/24. Clinically she denied any melena or rectal bleeding or gross hematuria. She denies any hemoptysis however she has some right lower chest discomfort and cough likely from her pneumonia. She has some burning with her urination as well. 10/03/24: She is here for 2 weeks follow up after hospital admission for pneumonia, UTI, severe anemia and thrombocytopenia with hgb 5.6 and plt 24K (see above). Labs on 10/03/2024 revealed hemoglobin increased to 8.9 WBC is 9.8 and a plateletcount of is back tonormal 321. CMP are normal. She is here to resume her adjuvant chemo as she was supposed to start her week 1of adjuvant weekly Taxol prior to her recent admission. She feels much better. No more SOB and no CP or bleeding from any source. 10/16/24: Patient is here for to start week1 of the weekly Taxol. No new complaints. Labs on 10/15/2024 revealed stable anemia hemoglobin 8.1 with normal WBC and platelet count and normal creatinine and LFTs. 10/30/24: Patient is here for week 3 of her adjuvant weekly Taxol out of the planned 12 weeks for her left breast cancer. No new complaints. No bleeding. no new masses or enlarged LNs. Labs on 10/29/2024 revealed stable anemia hemoglobin 8.9 with platelet 145 slightly lower than before and normal WBC and ANC. CMP is unremarkable. Iron studies revealed normal iron 81 with TIBC 321 normal iron saturation 25 and ferritin of 459 hide. She was given Cymbalta by Palliative for her neuropathy and it helped a lot. 12/11/24: Patient is here for week 9 of her adjuvant weekly Taxol. She is tolerating it well without changes on her neuropathy however she complains of distal painful swelling of both feet specially the left foot since September 2024 hospital admission. The swelling improved last week after 1 dose of Lasix given IV during the infusion treatment. She denied any fevers. She has slight erythema that has been stable since September 2024 the left foot. Once again no fever and no chills.. Labs are unremarkable except for mild stable anemia hgb 10.6. - I rechecked her blood pressure it came back 190/98 by my reading and it was 205/90 and by the midlevel during the triage. 01/01/25: She is here for week 12 of her weekly Taxol. She is tolerating it well with stable neuropathy. She is scheduled to start her adjuvant radiation on 02/04/25. her PCP started her on Cymbalta in addition to her gabapentin for her neuropathyof the feet which is helping a lot. The swelling n the left foot is same as before and did not improve on Lasix. Thus stop lasix and klor con and tray Ibuprofen 400 mg bid with food for 7-10 days with use of pantoprazole 40 mg daily for 2 weeks. Intake Vitals/Pain Assessment 01/01/25 09:39 Height 5 ft 7 in Weight 58.967 kg BMI 20.3 Body Fat % 33.49 BP 142/77 H Blood Pressure Location Rt brachial Position Sitting Temp 97.4 F L Temp Source Temporal Pulse 66 Pulse Source NIBP Respiration 18 Pulse Oximetry (%) 98 Oxygen Delivery Method room air Are you having pain? Yes Pain Location bilateral feet Intake Visit Reasons: 3 week f/u prior to tx Accompanied by: Daughter Allergies Corticosteroids (Glucocorticoids) Allergy (Verified 01/01/25 09:44) Unknown Reaction metaxalone (From Skelaxin) Allergy (Verified 01/01/25 09:44) Unknown Reaction entex Allergy (Uncoded 01/01/25 09:44) Unknown Reaction Home Medications - Last Reconciled 01/01/25 by MARY Chavarria alprazolam 0.25 mg PO TID PRN aspirin 81 mg PO DAILY cyclobenzaprine 10 mg PO HS PRN duloxetine 30 mg PO QDAY 30 days fluticasone propionate 50 mcg/actuation 1 spray intranasal BID furosemide (Lasix) 20 mg PO DAILY gabapentin 300 mg PO TID loratadine (Claritin) 10 mg PO DAILY losartan 25 mg PO DAILY metoprolol succinate ER 50 mg PO DAILY naloxone 4 mg/actuation 4 mg intranasal Q2-3M PRN ondansetron 8 mg PO Q8HR PRN oxycodone-acetaminophen 10-325 mg 1 tab PO Q4-6H PRN 30 days potassium chloride ER (Klor-Con M) 20 mEq PO DAILY prochlorperazine maleate (Compazine) 10 mg PO Q6HR PRN Gastrointestinal Is the patient taking opioids for pain control?: Yes Bowel Protocol for Opioids Given: Yes Bowel Pattern: Regular Bowel Movement Aid(s): Laxative (Miralax & Senna) Falls Fall Precaution Measures Taken: Patient in chair Nurse's Note: Patient is here for a 3 week follow up with labs for review. scheduled for her last chemo today. Scheduled to meet with Dr Elizabeth 02/04/2025. [facility] Medical History Medical History Breast cancer, left Immunosuppressed due to chemotherapy Pneumonia Bacteremia due to Streptococcus pneumoniae Acute anemia Pancytopenia UTI (urinary tract infection) Pneumonia Osteopenia Encounter for screening for osteoporosis Hypertension Surgical History Surgical History History of knee surgery bilateral History of lumpectomy of left breast History of cholecystectomy History of appendectomy History of hysterectomy History of foot surgery multiple bilateral Family History Family History Family/Other Breast cancer Social History Social History Smoking status: Former smoker What tobacco products do you use: cigarettes Smoking quit date/years:>15 years ago Within the past year, how often did you have a drink containing alcohol: monthly or less In the past 12 months, have you used illegal drugs or prescription drugs for non-medical reasons?: No Review of Systems ROS Details: All systems reviewed & no additional complaints except as documented General: Patient denied fevers, chills, rigors, weight loss or loss of appetite. Head: Patient denied any headaches or vision changes Thoracic: Patient denied any shortness of breath or cough or hemoptysis Cardiovascular patient denies any chest pain or leg edema GI: Patient denies any nausea vomiting rectal bleed diarrhea : Patient denied gross hematuria. Hematology: Patient denied any bleeding from any source. No easy bruising. Lymphatic: No enlarged LAP anywhere. Skin: Normal skin exam no rashes or suspicious lesions. Neurological patient denies any headache or dizziness or focal weakness or sensory changes. Physical Exam EXAM ECOG performance status 1. HEENT normocephalic atraumatic pupils are equal and round Neck supple without thyromegaly or any cervical lymphadenopathy. Chest clear to auscultation bilaterally without wheezing crackles or rhonchi Heart regular rate and rhythm S1-S2 without murmurs gallop or rub Abdomen soft nontender not distended without hepatosplenomegaly or masses clinically Extremities similar edema of the left foot with minor tender erythema and dry skin. No convincing findings of cellulitis and no fevers. Skin without any suspicious rashes Neurological exam patient is cooperative alert and oriented x3 no focal deficits. Results - [facility] ([facility] LAB RESULTS Corrected WBC 5.3 X10E3/uL (3.8-11.6) 12/31/24 14:20 5 Hgb 10.6 g/dL (11.8-15.4) L 12/31/24 14:20 5 Hct 30.7 % (34.0-46.4) L 12/31/24 14:20 12/31/24 MCV 102.9 fl (80-100) H 12/31/24 14:20 12/31/24 RDW 17.0 % (11.9-15.3) H 12/31/24 14:20 12/31/24 Plt Count 222 x10E3/uL (150-450) 12/31/24 14:20 12/31/24 Sodium 139 mmol/L (136-145) 12/31/24 14:20 12/31/24 Potassium 4.0 mmol/L (3.5-5.1) 12/31/24 14:20 12/31/24 BUN 18 mg/dL (7-25) 12/31/24 14:20 12/31/24 Creatinine 0.99 mg/dL (0.60-1.20) 12/31/24 14:20 12/31/24 Glucose 101 mg/dL (70-100) H 12/31/24 14:20 12/31/24 Est GFR (CKD-EPI) > 60.0 mL/Min 12/31/24 14:20 12/31/24 Calcium 9.9 mg/dL (8.6-10.3) 12/31/24 14:20 12/31/24 Total Bilirubin 0.4 mg/dl (0.3-1.0) 12/31/24 14:20 12/31/24 AST 21 U/L (13-39) 12/31/24 14:20 12/31/24 ALT 12 U/L (7-52) 12/31/24 14:20 12/31/24 Alkaline Phosphatase 50 U/L (34-104) 12/31/24 14:20 12/31/24 Total Protein 6.6 gm/dL (6.4-8.9) 12/31/24 14:20 12/31/24 Albumin 4.0 gm/dL (3.5-5.7) 12/31/24 14:20 12/31/24 Social Determinants of Health Screening SDOH last assessed in clinic: 01/01/25 Will the patient participate in the screening?: Yes Do you worry about having a steady place to live?: No In the past 12 months, have you had to go without electric, gas, oil, or water in your home?: No Have you or anyone in your house had to go without enough food to eat?: No Has lack of reliable transportation kept you from medical appointments or from doing things needed for daily living?: No Has anyone in your support network made you feel unsafe for any reason?: No Does the patient want assistance with any of the above?: No Dictated By: Kush Glez MD DD/ [id number] Signed By: <Electronically signed by Kush Glez MD> 01/01/25 1012 [facility] Work Phone: Progress note Author Linnette Elizabeth [facility] AvonNote Date/TimeJune 2024 11:30[facility] [place] [address] Cancer Center Note Signed Patient: Adelina Mir MR#: [id number] : 1960 Acct:[id number] Age/Sex: 64 / F Type: REG AMB Date of Service: 02/04/25 Copies to: MD Roshan Ballardl, MD FACS Michael Holley MD~ Assessment & Plan (1) Breast cancer, left: Plan: CT simulation-DIB for cardiac sparing, postmastectomy radiation 42.5 Fraser in 16fractions delivereddaily Assessment: 64-year-old female with [id number] invasive ductal carcinoma of the left breast, ER/TX positive HER2 negative. She is status post mastectomy in May 2024 with final pathology showing invasive ductal carcinoma with mucinous features, grade 2, 1.4 cm in greatest dimension. DCIS low nuclear grade. LVSI present. Focal invasive carcinoma present within 1 mm from the inked inferior margin. Resection margins negative for DCIS, closest is 5 mm. Skin and nipple uninvolved by DCIS or invasive carcinoma. [place] lymph node biopsy showed 3 of 8 lymph nodes positive with extranodal extension Patient has completed dose dense AC plus Taxol and presents to discuss postmastectomy radiation. I recommend postmastectomy radiation 42.5 Fraser in 16 fractions delivered daily. I provided a general overview of radiation treatmentplanning and delivery. We discussed the need for immobilization and CT simulation. Short and long-term side effects were reviewed in detail and her questions were answered. She was consented to receive care. History of Present Illness HPI 63-yo F presented with left intermittent nipple discharge with possible fistulafrom the left breastbut no nipple bleeding for several months. June 29, 2023 patient underwent an ultrasound-guided biopsy of a complex cystlocated at 6:00 in the left breast showing fragments of fibrovascular adipose tissue with no pathologic diagnosis. January 11, 2024 biopsy? excisional? lumpectomy at 7:00 in the left breast pathologyconfirmed invasive ductal carcinoma, 1.7 cm, grade 2. Tumor present at the superior surgical margin. Tumor less than 1 mm from the anterior and lateral surgical margins. Negative for LVSI. ER/TX positive, HER2 negative. Final pathology pT1c NX February 2024 Oncotype returned 09 May 2024 left breast skin-sparing mastectomy confirmed invasive ductal carcinoma with mucinous features, grade 2, 1.4 cm in greatest dimension. DCIS low nuclear grade. LVSI present. Focal invasive carcinoma present within 1 mm from the inked inferior margin. Resection margins negative for DCIS, closest is5 mm. Skin and nipple uninvolved by DCIS or invasive carcinoma. [place] lymphnode biopsy showed 3 of 8 lymph nodes positive with extranodal extension pT1c N1a Invitae testing returned negative Patient was initiated on dose dense AC followed by Taxol under the care of medical oncology. PCP started her on Cymbalta in addition to gabapentin for neuropathy. PMH generalized anxiety disorder, ADHD, complex regional pain syndrome of the lower extremity, essential tremor, hypertension and osteoarthritis to has idiopathic polyneuropathy and scoliosis with history of intermittent marijuana use as needed for pain Today patient reports fatigue from the chemotherapy. Feels she has recovered well from the surgery. Intake Vitals/Pain Assessment 02/04/25 11:04 Height 5 ft 7 in Weight 54.431 kg BMI 18.8 Body Fat % 31.69 BP 150/102 H Blood Pressure Location Rt brachial Position Sitting Pulse 92 Pulse Source NIBP Respiration 18 Pulse Oximetry (%) 99 Oxygen Delivery Method room air Are you having pain? No Intake Visit Reasons: New Patient, Breast Cancer Allergies Corticosteroids (Glucocorticoids) Allergy (Verified 02/04/25 11:06) Unknown Reaction metaxalone (From Skelaxin) Allergy (Verified 02/04/25 11:06) Unknown Reaction entex Allergy (Uncoded 02/04/25 11:06) Unknown Reaction Home Medications - Last Reconciled 02/04/25 by MARY Chavarria alendronate (Fosamax) 70 mg PO QWEEK alprazolam 0.25 mg PO TID PRN aspirin 81 mg PO DAILY cyclobenzaprine 10 mg PO HS PRN duloxetine 60 mg PO DAILY 30 days fluticasone propionate 50 mcg/actuation 1 spray intranasal BID furosemide (Lasix) 20 mg PO DAILY gabapentin 300 mg PO TID letrozole (Femara) 2.5 mg PO DAILY loratadine (Claritin) 10 mg PO DAILY losartan 25 mg PO DAILY metoprolol succinate ER 50 mg PO DAILY naloxone 4 mg/actuation 4 mg intranasal Q2-3M PRN ondansetron 8 mg PO Q8HR PRN oxycodone-acetaminophen 10-325 mg 1 tab PO Q4-6H PRN 30 days pantoprazole 20 mg PO DAILY potassium chloride ER (Klor-Con M) 20 mEq PO DAILY prochlorperazine maleate (Compazine) 10 mg PO Q6HR PRN Gastrointestinal Is the patient taking opioids for pain control?: No Bowel Protocol for Opioids Given: No Bowel Pattern: Regular Bowel Movement Aid(s): None Falls Fall Precaution Measures Taken: Patient in chair [facility] Medical History Medical History Breast cancer, left Immunosuppressed due to chemotherapy Pneumonia Bacteremia due to Streptococcus pneumoniae Acute anemia Pancytopenia UTI (urinary tract infection) Pneumonia Osteopenia Encounter for screening for osteoporosis Hypertension Surgical History Surgical History History of knee surgery bilateral History of lumpectomy of left breast History of cholecystectomy History of appendectomy History of hysterectomy History of foot surgery multiple bilateral Family History Family History Family/Other Breast cancer Social History Social History Smoking status: Former smoker What tobacco products do you use: cigarettes Smoking quit date/years:>15 years ago Within the past year, how often did you have a drink containing alcohol: monthly or less In the past 12 months, have you used illegal drugs or prescription drugs for non-medical reasons?: No Physical Exam EXAM Physical exam: KPS 90 General: Alert and oriented, no acute distress. HEENT: Normocephalic, extraocular movements intact Chest: Normal work of breathing on room air Breast: Treated breast shows surgical incision well-healed. No palpable mass orabnormality. Contralateral breast within normal limits. Lymph: No palpable cervical, supraclavicular, axillary lymphadenopathy Abdomen: Nonacute MSK: Extremities within normal limits Results - [facility] ([facility]) LAB RESULTS Glucose 101 mg/dL (70-100) H 12/31/24 14:20 12/31/24 BUN 18 mg/dL (7-25) 12/31/24 14:20 12/31/24 Creatinine 0.99 mg/dL (0.60-1.20) 12/31/24 14:20 12/31/24 Est GFR (CKD-EPI) > 60.0 mL/Min 12/31/24 14:20 12/31/24 Sodium 139 mmol/L (136-145) 12/31/24 14:20 12/31/24 Potassium 4.0 mmol/L (3.5-5.1) 12/31/24 14:20 12/31/24 Chloride 101 mmol/L (98-107) 12/31/24 14:20 12/31/24 Carbon Dioxide 30.4 mmol/L (21.0-31.0) 12/31/24 14:20 5 Anion Gap 11.6 mEq/L (6.0-15.0) 12/31/24 14:20 12/31/24 Calcium 9.9 mg/dL (8.6-10.3) 12/31/24 14:20 12/31/24 Total Protein 6.6 gm/dL (6.4-8.9) 12/31/24 14:20 12/31/24 Albumin 4.0 gm/dL (3.5-5.7) 12/31/24 14:20 12/31/24 Globulin 2.6 gm/dL 12/31/24 14:20 12/31/24 Albumin/Globulin Ratio 1.5 12/31/24 14:20 12/31/24 Total Bilirubin 0.4 mg/dl (0.3-1.0) 12/31/24 14:20 12/31/24 AST 21 U/L (13-39) 12/31/24 14:20 12/31/24 ALT 12 U/L (7-52) 12/31/24 14:20 12/31/24 Alkaline Phosphatase 50 U/L (34-104) 12/31/24 14:20 12/31/24 Social Determinants of Health Screening SDOH last assessed in clinic: 02/04/25 Will the patient participate in the screening?: Yes Do you worry about having a steady place to live?: No In the past 12 months, have you had to go without electric, gas, oil, or water in your home?: No Have you or anyone in your house had to go without enough food to eat?: No Has lack of reliable transportation kept you from medical appointments or from doing things needed for daily living?: No Has anyone in your support network made you feel unsafe for any reason?: No Does the patient want assistance with any of the above?: No Dictated By: Linnette Elizabeth MD DD/ [id number] Signed By: <Electronically signed by Linnette Elizabeth MD> 02/04/25 1138 [facility] Work Phone: Progress note Author Kush Glez [facility] [place]onNote Date/TimeAugust 2024 12:13pm [facility] [place] [address] Cancer Center Note Signed Patient: Adelina Mir MR#: [id number] : 1960 Acct:[id number] Age/Sex: 64 / F Type: REG AMB Date of Service: 04/23/25 Copies to: Michael Holley MD~ Assessment & Plan A/P (1) Breast cancer, left: (2) Osteopenia: Plan Based on the biopsy done on 01/10/2024 it reveals pT1c, pNX, ER positive, TX positive, HER2/pat negative (1+), no DCIS, tumor size of the invasive ductal carcinoma is 1.7 cm at least with positive superior margin and no lymphovascularinvasion detected. No lymph nodes included in the biopsy. Patient was referredfor further surgical resection with bilateral mastectomy by Dr. Braun and Dr. Bustamante forreconstructive surgery. - Invitae gene testing done 03/01/24 was negative. -Bone density scan done on 02/15/2024 revealed osteopenia with a T-score of -1.4 in the left femoralneck. - Oncotype Dx score was done on the biopsy tissue based on unknown gwen statusat that time revealed: - If she is node-negative: Recurrence score of 5 with distant recurrence risk at 9 years of 3% withendocrine therapy alone with less than 1% benefit from the chemo. - If Node positive and premenopausal: Recurrence score will be 5 with distantrecurrence risk at 5 years 3% with her medicine better or endocrine therapy alone and chemo benefit 2.3%. -If she is postmenopausal and node positive the recurrence score is 5 with distant recurrence risk at 5 years with AI or tamoxifen alone is 1% and chemo benefit no apparent benefit noticed as it is less than 1% only. -If she has node positive of 4 or more lymph nodes then recurrence score is 5% and the distant recurrence at 9 years is 35% with AI and tamoxifen alone. -She underwent left breast mastectomy with sentinel node biopsy 05/16/2024, skin sparing with immediate reconstruction with tissue litharge supervisor by Dr. Bustamante. Surgical path from surgery done on 05/16/2024 revealed: A. Left axillary sentinel lymph node 1 out of 2 lymph nodes positive for metastatic carcinoma with mucinous features with extranodal extension again and 1 out of 2 lymph nodes. B. Lymph nodes in the left axillary sentinel lymph node 2 of 6 lymph nodes positive for metastatic carcinoma with mucinous features with extranodal extension. Left breast mastectomy revealed invasive ductal carcinoma with mucinous featuresgrade 2, 1.4 cm in greatest dimension. Ductal carcinoma in situ low-grade cribriform Lymphovascular invasion present Focal invasive carcinoma is present within 1 mm from inked inferior margin. Resection margins negative for DCIS with 5 mm from closest deep margin. Fibrocystic changes characterized by apocrine metaplasia and usual ductal hyperplasia with adenosisand microcalcification. Skin and nipple uninvolved by DCIS or invasive cancer Stage IIA, TNM stage is pT1c, pN1a. Number of lymph nodes with macrometastasis 3 and number of lymph nodes with isolated tumor cells 0 and number of lymph nodes with micrometastasis 0. Extranodal extension is present. ER positive over 90%, TX +80%, HER2 negative (1+), Ki-67 3% Treatment plan: After discussing the above findings from the surgical path with her and considering that she has extranodal extension of 3 out of 6 lymph nodes and lymphovascular invasion positive with 1.4 cm tumor that is grade 2, I recommended adjuvant chemo using dose dense AC followed by T followed by adjuvantradiation followed by adjuvant endocrine therapy. She agreed and signed the consent. Side effects were discussed with patient. 07/31/24: She is here for 1 week toxicity check after cycle 1 of dose dense AC obtained orgiven on 07/24/2024. She tolerated C1 without any complaints but has same postnasal drainage for more than 4 weeks evenbefore chemo without sore throat or fevers. She tried Benadryl and can not take steroids due to allergy to steroids. She is scheduled for cycle 2 on 08/08/2024. Labs on 07/30/2024 revealed normal CBC with normal WBC of 5.7 normal ANC of 4.2 and unremarkable CMP. - Proceeded with cycle 2 of dose dense AC on 08/08/2024. 08/21/24: She is here for evaluation prior to her C3 of the adjuvant ddAC scheduled on 08/22/24. She had mildfatigue and had nausea for 6 days after cycle 2 of dose dense AC but not vomiting and no chest painor shortness of breath or leg edema or abdominal pain or diarrhea. She has chronic peripheral neuropathy even before chemotherapy. No fevers or current infections. Her Zofran she took daily for 6 days after cycle 2 helped her nausea. - Proceeded with C3 ddAC on 08/21/24 if labs meets criteria for chemo. Continue using calcium 500 mg twice daily and vitamin D 2000 unit daily for her mild osteopenia. Next DEXA scan is in 02/2026. After she completes 4 cycles of ddAC she then can start weekly taxol 2 weeks after C4 of AC. 09/03/24: She continues to do fairly well with treatment and will receive cycle 4 ddAC this week. Her labs remain okay for continued treatment. She will follow-up in2 weeks with Dr. Bales with plans of starting her weekly Taxol at that visit as well. 09/17/24: Patient sent to ED for worsening symptoms, will likely hold off on initiation of Taxol this week given acute concerns. 09/19/24: She is admitted with a hemoglobin of 5.6 and found to have pneumonia as well as UTI during this admission evaluation with urine culture and was transfused 2 units of packed RBC and brought her hemoglobin up to 7.7 on 09/19/2024. Her platelet on admission on 09/17/2024 was 24K on 09/17/24 and they are 38K on 09/19/24 without evidence or signs of clinical bleeding. - Medical oncology was consulted for further recommendation regarding her anemia, thrombocytopenia and left breast cancer treatment considering that she missed her week 1 of the weekly Taxol scheduled on 09/18/24. Clinically she denied any melena or rectal bleeding or gross hematuria. She denies any hemoptysis however she has some right lower chest discomfort and cough likely from her pneumonia. She has some burning with her urination as well. 10/03/24: She is here for 2 weeks follow up after hospital admission for pneumonia, UTI, severe anemia and thrombocytopenia with hgb 5.6 and plt 24K (see above). Labs on 10/03/2024 revealed hemoglobin increased to 8.9 WBC is 9.8 and a plateletcount of is back tonormal 321. CMP are normal. She is here to resume her adjuvant chemo as she was supposed to start her week 1of adjuvant weekly Taxol prior to her recent admission. - She did not start her week1 of the weekly Taxol on 10/09/24 because of generalized weakness. 10/16/24: Patient is here for to start week1 of the weekly Taxol. No new complaints. Labs on 10/15/2024 revealed stable anemia hemoglobin 8.1 with normal WBC and platelet count and normal creatinine and LFTs. - Started weekly Taxol on 10/16/24. 10/30/24: Patient is here for week 3 of her adjuvant weekly Taxol out of the planned 12 weeks for her left breast cancer. No new complaints. No bleeding. no new masses or enlarged LNs. Labs on 10/29/2024 revealed stable anemia hemoglobin 8.9 with platelet 145 slightly lower than before and normal WBC and ANC. CMP is unremarkable. Iron studies revealed normal iron 81 with TIBC 321 normal iron saturation 25 and ferritin of 459 hide. She was given Cymbalta by Palliative for her neuropathy and it helped a lot. 12/11/24: Patient is here for week 9 of her adjuvant weekly Taxol. She is tolerating it well without changes on her neuropathy however she complains of distal painful swelling of both feet specially the left foot since September 2024 hospital admission. The swelling improved last week after 1 dose of Lasix given IV during the infusion treatment. She denied any fevers. She has slight erythema that has been stable since September 2024 the left foot. Once again no fever and no chills.. Labs are unremarkable except for mild stable anemia hgb 10.6. - I rechecked her blood pressure it came back 190/98 by my reading and it was 205/90 and by the midlevel during the triage. 01/01/25: She is here for week 12 of her weekly Taxol. She is tolerating it well with stable neuropathy. She is scheduled to start her adjuvant radiation on 02/04/25. her PCP started her on Cymbalta in addition to her gabapentin for her neuropathyof the feet which is helping a lot. The swelling n the left foot is same as before and did not improve on Lasix. Thus stop lasix and klor con and tray Ibuprofen 400 mg bid with food for 7-10 days with use of pantoprazole 40 mg daily for 2 weeks. - Proceeded with week 12 Taxol 9last treatment) on 01/01/25. 04/23/25: She is here for aromatase inhibitor toxicity check which she started taking since she completed heradjuvant radiation from 02/04/25 completed on 03/12/25. - Labs on 04/21/2025 revealed normal WBC, hemoglobin, platelet count however MCV is slightly elevated 101 which is chronically elevated and now better than before. Absolute monocyte count slightly elevated at 0.9. CMP revealed BUN of 31 higher than before and creatinine 1.41. LFTs unremarkable. -She denied any side effects to the Feeman denied any hot flashes denied any legswelling. She stopped taking the Lasix and the potassium in December 2024. She has been drinking water but may not be 64 ounces daily. She denies any diarrhea. She gets occasional leg cramps. PLAN: Continue Femara 2.5 mg once daily. Continue Cymbalta in addition to gabapentin for neuropathy of the feet which arehelping a lot. Continue B1/B6/B12 50/50/500 mg for neuropathy history. Asked her to try the magnesium [id number] once daily for the licorice for couple weeks see ifit improves then to continue it if not to stop it and check with the primary care physician for theleg cramps etiologies. Continue calcium and vit D for osteopenia. Continue Fosamax 70 mg once a week for her osteopenia seen on DEXA in 03/2024. Obtain her annual right screening mammogram next few weeks. Due to slight increase in the BUN and creatinine compared with prior studies I encouraged her to increase hydration to a 64 ounces water daily and we will check her CMP in 1 week. She may need to follow-up with her PCP if her renal function continues to be abnormal to consider being Losartan related and even USkidneys to rule out kidney stones or hydronephrosis. RTC in 6 months with CMP prior. Orders: Orders Comprehensive Metabolic Panel 6 Months C50.912 - Malignant neoplasm of unspecified site of left female breast, Z17.0 - Estrogen receptor positive status [ER+] MM screening mammo RT w/CAD 3 Days C50.912 - Malignant neoplasm of unspecified site of left female breast, Z17.0 - Estrogen receptor positive status [ER+] Referrals Referral to General Surgery C50.912 - Malignant neoplasm of unspecified site of left female breast,Z17.0 - Estrogen receptor positive status [ER+] Patient Instructions: cmp in 1 week cmp in 6 months refer for port removal R screening mammogram soon follow up in 6 months CHEMO PLAN Treatment Plan Paclitaxel 80mg/m2 Weekly x 4 weeks Clinical Indication No Indication Cycle Number Last Admin 3 of 3 Completed Cycle Day Next Admin No Active Chemotherapy History of Present Illness SHAE Sahu is a 63-year-old nice lady with history of generalized anxiety disorder, ADHD, complex regional pain syndrome of the lower extremity, essential tremor, hypertension and osteoarthritis to has idiopathic polyneuropathy and scoliosis with history of intermittent marijuana use as needed for paincontrol who was referred to our medical oncology clinic by Dr. 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 Patient has been having intermittent nipple discharge with possible fistula from the left breastbut no nipple bleeding for several months. She had BI-RADS 3 screening mammogram in April 2023 which was followed by ultrasound patient underwent initial biopsy of the suspicious left breast lesion on 07/12/2023 however results of the path of that biopsy was consistent with fibrovascular adipose tissue with no pathology present. Patient continues to have nipple discharge and Dr. Braun plan to do alumpectomy however because of cardiac workup and clearance needed another biopsy was done on left breast under ultrasound guidance and it came back also inconclusive in November 2023 which led to excisio nal biopsy performed on 01/10/2024. The path results of that excisional biopsy done on 01/10/2024 is asfollows: Pathological Diagnosis 01/10/2024: Mass, left breast, 7:00, lumpectomy: Invasive ductal carcinoma. Tumor Is 1.7 Cm In Greatest Dimension. Grade 2/ Moderately Differentiated. Tumor is present at the superior surgical margin. Tumor Is less than 0.1 Cm From The anterior and lateral surgical Margins. No Evidence Of Lymphovascular Invasion. Breast Hormone Profile ER: Positive TX: Positive HER2/pat by immunostain: Negative (1+) CAP CANCER CASE SUMMARY SPECIMEN Procedure: Excision [...] report. pT Category: pT1c pN Category: pNx Patient denies any family history of ovarian cancer however she has a cousin with breast cancer. She has a sister with multiple lumps under her breast but there were not cancerous. No known family history of ovarian cancer however her mom had mesothelioma. She does not know her father side because she does not know her biological father. 05/30/24: She is here for further planning of care after her left breast mastectomy and for results of the DEXA scan and Oncotype DX. Patient was sent to Dr. Bustamante for reconstructive breast surgeries as she is electing to go for bilateral mastectomy. She was also sent to our medical oncology clinic for recommendation regarding management of her new left breast cancer that is ER positive TX positive and HER2/apt negative but nolymph nodes were obtained as of this initial consult done on 02/08/2024. Surgery date yet to be determined [address] BRAUN. - Invitae gene testing done 03/01/24 was negative. -Bone density scan done on 02/15/2024 revealed osteopenia with a T-score of -1.4 in the left femoralneck. - Oncotype Dx score was done on the biopsy tissue based on unknown gwen status at that time revealed: - If she is node-negative: Recurrence score of 5 with distant recurrence risk at 9 years of 3% withendocrine therapy alone with less than 1% benefit from the chemo. - If Node positive and premenopausal: Recurrence score will be 5 with distant recurrence risk at 5 years 3% with her medicine better or endocrine therapy alone and chemo benefit 2.3%. -If she is postmenopausal and node positive the recurrence score is 5 with distant recurrence risk at 5 years with AI or tamoxifen alone is 1% and chemo benefit no apparent benefit noticed as it is less than 1% only. -If she has node positive of 4 or more lymph nodes then recurrence score is 5% and the distant recurrence at 9 years is 35% with AI and tamoxifen alone. -She underwent left breast mastectomy with sentinel node biopsy 05/16/2024, skin sparing with immediate reconstruction with tissue litharge supervisor by Dr. Bustamante. Surgical path from surgery done on 05/16/2024 revealed: A. Left axillary sentinel lymph node 1 out of 2 lymph nodes positive for metastatic carcinoma with mucinous features with extranodal extension again and 1 out of 2 lymph nodes. B. Lymph nodes in the left axillary sentinel lymph node 2 of 6 lymph nodes positive for metastatic carcinoma with mucinous features with extranodal extension. Left breast mastectomy revealed invasive ductal carcinoma with mucinous features grade 2, 1.4 cm ingreatest dimension. Ductal carcinoma in situ low-grade cribriform Lymphovascular invasion present Focal invasive carcinoma is present within 1 mm from inked inferior margin. Resection margins negative for DCIS with 5 mm from closest deep margin. Fibrocystic changes characterized by apocrine metaplasia and usual ductal hyperplasia with adenosisand microcalcification. Skin and nipple uninvolved by DCIS or invasive cancer Stage IIA, TNM stage is pT1c, pN1a. Number of lymph nodes with macrometastasis 3 and number of lymph nodes with isolated tumor cells 0 and number of lymph nodes with micrometastasis 0. Extranodal extension is present. ER positive over 90%, TX +80%, HER2 negative (1+), Ki-67 3% 07/31/24: She is here for 1 week toxicity check after cycle 1 of dose dense AC obtained or given on 07/24/2024. She tolerated C1 without any complaints but has same postnasal drainage for more than 4 weeks even before chemo without sore throat or fevers. She tried Benadryl and can not take steroids due to allergy to steroids. She is scheduled for cycle 2 on 08/08/2024. Labs on 07/30/2024 revealed normal CBC with normal WBC of 5.7 normal ANC of 4.2 and unremarkable CMP. 08/21/24: She is here for evaluation prior to her C3 of the adjuvant ddAC scheduled on 08/22/24. She had mildfatigue and had nausea for 6 days after cycle 2 of dose dense AC but not vomiting and no chest painor shortness of breath or leg edema or abdominal pain or diarrhea. She has chronic peripheral neuropathy even before chemotherapy. No fevers or current infections. Her Zofran she took daily for 6 days after cycle 2 helped her nausea. 14 point review of systems was obtained and was negative. 09/03/24: She presents for cycle 4 ddAC. She continues with fatigue and dyspnea if she exerts herself, otherwise no chest pain or shortness of breath at rest. No change in her neuropathy with treatment. Her nausea has better controlled now that she is taking her antiemetics regularly. She is eating and drinking ok and denies vomiting, diarrhea, or constipation. She denies other new concerns as well. Her labs remain okay for continued treatment. 09/17/24: She presents to clinic as an add-on for worsening symptoms. Her daughter is concerned that she has pneumonia as she has been having shortness of breath and not eating much at all. Vitals today note significant hypotension and decreased heart rate. Her oxygen levels on arrival dropped between 70s/80s and she was placed on supplemental oxygen, up to 6 L in office before her sats improved into the 90s. She has attempted to give a urine sample as she has concern for UTI as well, however was not able to go. Given acute symptoms, we have decided to send her to the ED for further evaluation. 09/19/24: She is admitted with a hemoglobin of 5.6 and found to have pneumonia as well as UTI during this admission evaluation with urine culture and was transfused 2 units of packed RBC and brought her hemoglobin up to 7.7 on 09/19/2024. Her platelet on admission on 09/17/2024 was 24K on 09/17/24 and they are 38K on 09/19/24 without evidence or signs of clinical bleeding. - Medical oncology was consulted for further recommendation regarding her anemia, thrombocytopenia and left breast cancer treatment considering that she missed her week 1 of the weekly Taxol scheduled on 09/18/24. Clinically she denied any melena or rectal bleeding or gross hematuria. She denies any hemoptysis however she has some right lower chest discomfort and cough likely from her pneumonia. She has some burning with her urination as well. 10/03/24: She is here for 2 weeks follow up after hospital admission for pneumonia, UTI, severe anemia and thrombocytopenia with hgb 5.6 and plt 24K (see above). Labs on 10/03/2024 revealed hemoglobin increased to 8.9 WBC is 9.8 and a platelet count of is back to normal 321. CMP are normal. She is here to resume her adjuvant chemo as she was supposed to start her week 1 of adjuvant weeklyTaxol prior to her recent admission. She feels much better. No more SOB and no CP or bleeding from any source. 10/16/24: Patient is here for to start week1 of the weekly Taxol. No new complaints. Labs on 10/15/2024 revealed stable anemia hemoglobin 8.1 with normal WBC and platelet count and normal creatinine and LFTs. 10/30/24: Patient is here for week 3 of her adjuvant weekly Taxol out of the planned 12 weeks for her left breast cancer. No new complaints. No bleeding. no new masses or enlarged LNs. Labs on 10/29/2024 revealed stable anemia hemoglobin 8.9 with platelet 145 slightly lower than before and normal WBC and ANC. CMP is unremarkable. Iron studies revealed normal iron 81 with TIBC 321 normal iron saturation 25 and ferritin of 459 hide. She was given Cymbalta by Palliative for her neuropathy and it helped a lot. 12/11/24: Patient is here for week 9 of her adjuvant weekly Taxol. She is tolerating it well without changes on her neuropathy however she complains of distal painful swelling of both feet specially the left foot since September 2024 hospital admission. The swelling improved last week after 1 dose of Lasix given IV during the infusion treatment. She denied any fevers. She has slight erythema that has been stable since September 2024 the left foot. Once again no fever and no chills.. Labs are unremarkable except for mild stable anemia hgb 10.6. - I rechecked her blood pressure it came back 190/98 by my reading and it was 205/90 and by the midlevel during the triage. 01/01/25: She is here for week 12 of her weekly Taxol. She is tolerating it well with stable neuropathy. She is scheduled to start her adjuvant radiation on 02/04/25. her PCP started her on Cymbalta in addition to her gabapentin for her neuropathy of the feet which is helping a lot. The swelling n the left foot is same as before and did not improve on Lasix. Thus stop lasix and klor con and tray Ibuprofen 400 mg bid with food for 7-10 days with use of pantoprazole 40 mg daily for 2 weeks. 04/23/25: She is here for aromatase inhibitor toxicity check which she started taking since she completed heradjuvant radiation from 02/04/25 completed on 03/12/25. - Labs on 04/21/2025 revealed normal WBC, hemoglobin, platelet count however MCV is slightly elevated 101 which is chronically elevated and now better than before. Absolute monocyte count slightly elevated at 0.9. CMP revealed BUN of 31 higher than before and creatinine 1.41. LFTs unremarkable. -She denied any side effects to the Fe[place] denied any hot flashes denied any leg swelling. She stopped taking the Lasix and the potassium in December 2024. She has been drinking water but may not be 64 ounces daily. She denies any diarrhea. She gets occasional leg cramps. Intake Vitals/Pain Assessment 04/23/25 11:30 Weight 54.431 kg BP 175/78 H Blood Pressure Location Rt brachial Position Sitting Temp 98 F Pulse 63 Pulse Source NIBP Respiration 20 Pulse Oximetry (%) 96 Are you having pain? No Intake Visit Reasons: 10 wk f/u Allergies Corticosteroids (Glucocorticoids) Allergy (Verified 02/04/25 11:06) Unknown Reaction metaxalone (From Skelaxin) Allergy (Verified 02/04/25 11:06) Unknown Reaction entex Allergy (Uncoded 02/04/25 11:06) Unknown Reaction Home Medications - Last Reconciled 04/23/25 by MARY Chavarria alendronate (Fosamax) 70 mg PO QWEEK alprazolam 0.25 mg PO TID PRN aspirin 81 mg PO DAILY Held on 09/25/24. Instructions: hold as per oncology, restart per oncology cyclobenzaprine 10 mg PO HS PRN duloxetine 60 mg PO DAILY 30 days fluticasone propionate 50 mcg/actuation 1 spray intranasal BID furosemide (Lasix) 20 mg PO DAILY gabapentin 300 mg PO TID letrozole (Femara) 2.5 mg PO DAILY loratadine (Claritin) 10 mg PO DAILY losartan 25 mg PO DAILY metoprolol succinate ER 50 mg PO DAILY mometasone 0.1% 1 applic topical DAILY naloxone 4 mg/actuation 4 mg intranasal Q2-3M PRN ondansetron 8 mg PO Q8HR PRN oxycodone-acetaminophen 10-325 mg 1 tab PO Q4-6H PRN 30 days pantoprazole (Protonix) 40 mg PO DAILY potassium chloride ER (Klor-Con M) 20 mEq PO DAILY prochlorperazine maleate (Compazine) 10 mg PO Q6HR PRN silver sulfadiazine 1% (Silvadene) 1 applic topical BID Gastrointestinal Is the patient taking opioids for pain control?: Yes Bowel Protocol for Opioids Given: Yes Bowel Pattern: Regular Bowel Movement Aid(s): None Falls Fall Precaution Measures Taken: Patient in chair Nurse's Note: Patient is here for a 4 month follow up with labs for review. Taking Letrozole. No concerns voiced at time of intake. [facility] Medical History Medical History Breast cancer, left Immunosuppressed due to chemotherapy Pneumonia Bacteremia due to Streptococcus pneumoniae Acute anemia Pancytopenia UTI (urinary tract infection) Pneumonia Osteopenia Encounter for screening for osteoporosis Hypertension Surgical History Surgical History History of knee surgery bilateral History of lumpectomy of left breast History of cholecystectomy History of appendectomy History of hysterectomy History of foot surgery multiple bilateral Family History Family History Family/Other Breast cancer Social History Social History Smoking status: Former smoker What tobacco products do you use: cigarettes Smoking quit date/years:>15 years ago Within the past year, how often did you have a drink containing alcohol: monthly or less In the past 12 months, have you used illegal drugs or prescription drugs for non-medical reasons?: No Review of Systems ROS Details: All systems reviewed & no additional complaints except as documented General: Patient denied fevers, chills, rigors, weight loss or loss of appetite. Head: Patient denied any headaches or vision changes Thoracic: Patient denied any shortness of breath or cough or hemoptysis Cardiovascular patient denies any chest pain or leg edema GI: Patient denies any nausea vomiting rectal bleed diarrhea : Patient denied gross hematuria. Hematology: Patient denied any bleeding from any source. No easy bruising. Lymphatic: No enlarged LAP anywhere. Skin: Normal skin exam no rashes or suspicious lesions. Neurological patient denies any headache or dizziness or focal weakness or sensory changes. Physical Exam EXAM Physical exam: KPS 90 General: Alert and oriented, no acute distress. HEENT: Normocephalic, extraocular movements intact Chest: Normal work of breathing on room air Breast: Treated breast shows surgical incision well-healed. Persistent tanning c/w radiation field with dry, peeling skin. No palpable mass or abnormality. Contralateral breast within normal limits. Lymph: No palpable cervical, supraclavicular, axillary lymphadenopathy Abdomen: Nonacute MSK: Extremities within normal limits Results - [facility] LAB RESULTS Corrected WBC, (3.8-11.6) 8.2 X10E3/uL 04/21/25, 10:2 5 Hgb, (11.8-15.4) 12.6 g/dL 04/21/25, 10:25 Hct, (34.0-46.4) 37.6 % 04/21/25, 10:25 MCV, (80-100) 101.0 fl H 04/21/25, 10:25 RDW, (11.9-15.3) 15.0 % 04/21/25, 10:25 Plt Count, (150-450) 205 x10E3/uL 04/21/25, 10:25 Sodium, (136-145) 136 mmol/L 04/21/25, 10:25 Potassium, (3.5-5.1) 4.1 mmol/L 04/21/25, 10:25 BUN, (7-25) 31 mg/dL H 04/21/25, 10:25 Creatinine, (0.60-1.20) 1.41 mg/dL H 04/21/25, 10:25 Glucose, (70-100) 107 mg/dL H 04/21/25, 10:25 Est GFR (CKD-EPI) 41.914 mL/Min 04/21/25, 10:25 Calcium, (8.6-10.3) 9.4 mg/dL 04/21/25, 10:25 Total Bilirubin, (0.3-1.0) 0.5 mg/dl 04/21/25, 10: 25 AST, (13-39) 16 U/L 04/21/25, 10:25 ALT, (7-52) 12 U/L 04/21/25, 10:25 Alkaline Phosphatase, (34-104) 64 U/L 04/21/25, :25 Total Protein, (6.4-8.9) 6.8 gm/dL 04/21/25, 10:25 Albumin, (3.5-5.7) 4.1 gm/dL 04/21/25, 10:25 Social Determinants of Health Screening SDOH last assessed in clinic: 04/23/25 Will the patient participate in the screening?: Yes Do you worry about having a steady place to live?: No In the past 12 months, have you had to go without electric, gas, oil, or water in your home?: No Have you or anyone in your house had to go without enough food to eat?: No Has lack of reliable transportation kept you from medical appointments or from doing things needed for daily living?: No Has anyone in your support network made you feel unsafe for any reason?: No Does the patient want assistance with any of the above?: No Dictated By: Kush Glez MD DD/ [id number] Signed By: <Electronically signed by Kush Glez MD> 04/23/25 1213 [facility] Work Phone: Reason for referral (narrative) Referred by: Roshan BRAUN MD Referred by: [facility]han [facility] Reason for referral (narrative)No reason for referral information availablePaulding [facility] Hospital Work Phone: Summary Purpose Family History No Family History Records Found Relationship Condition Age at Onset Recorded Date/T thony family member Malignant neoplasm of breast Unknown Advance Directives No Advanced Directives Records Found Advance Directive Response Recorded Date/ Time Advance Directives No February 04 4 1:52pm Advance Directive Response Recorded Date/ Time Advance Directives No February 04 12:52pm Chief Complaint and Reason for Visit Chief Complaint Admit Date New Patient, Breast Cancer February 04 10:59am breast cancer February 06, 2025 11:17 am breast cancer February 17, 2025 8:07 am breast cancer February 24, 2025 2:58 pm breast cancer March 03, 2025 2:17 pm breast cancer March 10, 2025 11:41 am 2 Week Skin Check March 25, 2025 10:4 3am Follow Up 2 Weeks, Skin Check April 10:30am breast cancer April 10, 2025 10: 31am Reason for Visit Admit Date Breast cancer, left February 04, 2025 10:59 am Breast cancer, left March 03, 2025 10:4 6am Neuropathy March 03, 2025 10:4 6am Breast cancer, left March 25, 2025 10:4 3am Breast cancer, left April 10, 2025 10: 30am Chief Complaint Admit Date 3 week f/u prior to tx January 01, 2025 9:37am New Patient, Breast Cancer February 04 10:59am breast cancer February 06, 2025 11:17 am breast cancer February 17, 2025 8:07 am breast cancer February 24, 2025 2:58 pm breast cancer March 03, 2025 2:17 pm breast cancer March 10, 2025 11:41 am 2 Week Skin Check March 25, 2025 10:4 3am Reason for Visit Admit Date Breast cancer, left January 01, 2025 8:2 1am Neuropathy January 01, 2025 8:2 1am Breast cancer, left January 01, 2025 9:3 7am Osteopenia January 01, 2025 9:3 7am Breast cancer, left February 04, 2025 10:59 am Breast cancer, left March 03, 2025 10:4 6am Neuropathy March 03, 2025 10:4 6am Chief Complaint Admit Date f/u prior to tx December 11, 2024 10:3 6am 3 week f/u prior to tx January 01, 2025 9:37am New Patient, Breast Cancer February 04 10:59am breast cancer February 06, 2025 11:17 am breast cancer February 17, 2025 8:07 am breast cancer February 24, 2025 2:58 pm breast cancer March 03, 2025 2:17 pm Reason for Visit Admit Date Breast cancer, left December 11, 2024 10:3 6am Osteopenia December 11, 2024 10:3 6am Adjustment disorder with mixed anxiety a nd depressed mood December 19, 2024 8:51am Breast cancer, left December 19, 2024 8:5 1am Cancer associated pain December 19, 2024 8:51am Breast cancer, left January 01, 2025 8:2 1am Neuropathy January 01, 2025 8:2 1am Breast cancer, left January 01, 2025 9:3 7am Osteopenia January 01, 2025 9:3 7am Breast cancer, left February 04, 2025 10:59 am Neuropathy March 03, 2025 10:4 6am Chief Complaint Admit Date . November 27, 2024 7:5 2am f/u prior to tx December 11, 2024 10:3 6am 3 week f/u prior to tx January 01, 2025 9:37am breast cancer February 04, 2025 10:48 am New Patient, Breast Cancer February 04 10:59am Reason for Visit Admit Date Breast cancer, left November 27, 2024 7:5 2am Cancer associated pain November 27, 2024 7:52am Constipation November 27, 2024 7:5 2am Neuropathy November 27, 2024 7:5 2am Breast cancer, left December 11, 2024 10:3 6am Osteopenia December 11, 2024 10:3 6am Adjustment disorder with mixed anxiety a nd depressed mood December 19, 2024 8:51am Breast cancer, left December 19, 2024 8:5 1am Cancer associated pain December 19, 2024 8:51am Breast cancer, left January 01, 2025 8:2 1am Neuropathy January 01, 2025 8:2 1am Breast cancer, left January 01, 2025 9:3 7am Osteopenia January 01, 2025 9:3 7am Breast cancer, left February 04, 2025 10:59 am Chief Complaint Admit Date J18.9 J85.0 October 07, 2024 1 1:38am f/u after feeling ill October 16 9:46am Hospital F/u October 17, 2024 1:34pm . October 30, 2024 7:45am Follow Up/Treatment October 30, 2024 9:58am j85.0 November 04, 2024 12:5 1pm . November 27, 2024 7:5 2am f/u prior to tx December 11, 2024 10:3 6am 3 week f/u prior to tx January 01, 2025 9:37am breast cancer January 01, 2025 10: 11am Reason for Visit Admit Date Breast cancer, left October 16, 2024 9:46am Osteopenia October 16, 2024 9:46am Necrotizing pneumonia October 17 1:34pm Bacteremia due to Streptococcus pneumoni ae October 17, 2024 1:34pm Pneumonia October 17, 2024 1:34pm Adjustment disorder with mixed anxiety a nd depressed mood October 17, 2024 2:04pm Breast cancer, left October 17, 2024 2:04pm Cancer associated pain October 17 2:04pm Neuropathy October 17, 2024 2:04pm Breast cancer, left October 30, 2024 7:45am Cancer associated pain October 30 7:45am Neuropathy October 30, 2024 7:45am Breast cancer, left October 30, 2024 9:58am Osteopenia October 30, 2024 9:58am Breast cancer, left November 27, 2024 7:5 2am Cancer associated pain November 27, 2024 7:52am Constipation November 27, 2024 7:5 2am Neuropathy November 27, 2024 7:5 2am Breast cancer, left December 11, 2024 10:3 6am Osteopenia December 11, 2024 10:3 6am Adjustment disorder with mixed anxiety a nd depressed mood December 19, 2024 8:51am Breast cancer, left December 19, 2024 8:5 1am Cancer associated pain December 19, 2024 8:51am Breast cancer, left January 01, 2025 8:2 1am Neuropathy January 01, 2025 8:2 1am Breast cancer, left January 01, 2025 9:3 7am Osteopenia January 01, 2025 9:3 7am Chief Complaint Admit Date 2WK INPT FOLLOW UP October 03, 2024 2 :48pm J18.9 J85.0 October 07, 2024 1 1:38am f/u after feeling ill October 16 9:46am Hospital F/u October 17, 2024 1:34pm . October 30, 2024 7:45am Follow Up/Treatment October 30, 2024 9:58am j85.0 November 04, 2024 12:5 1pm f/u prior to tx December 11, 2024 10:3 6am breast cancer December 19, 2024 10: 58am Reason for Visit Admit Date Breast cancer, left October 03, 2024 2 :48pm Osteopenia October 03, 2024 2 :48pm Breast cancer, left October 16, 2024 9:46am Osteopenia October 16, 2024 9:46am Necrotizing pneumonia October 17 1:34pm Bacteremia due to Streptococcus pneumoni ae October 17, 2024 1:34pm Pneumonia October 17, 2024 1:34pm Adjustment disorder with mixed anxiety a nd depressed mood October 17, 2024 2:04pm Breast cancer, left October 17, 2024 2:04pm Cancer associated pain October 17 2:04pm Neuropathy October 17, 2024 2:04pm Breast cancer, left October 30, 2024 7:45am Cancer associated pain October 30 7:45am Neuropathy October 30, 2024 7:45am Breast cancer, left October 30, 2024 9:58am Osteopenia October 30, 2024 9:58am Breast cancer, left November 27, 2024 7:5 2am Cancer associated pain November 27, 2024 7:52am Constipation November 27, 2024 7:5 2am Neuropathy November 27, 2024 7:5 2am Breast cancer, left December 11, 2024 10:3 6am Osteopenia December 11, 2024 10:3 6am Adjustment disorder with mixed anxiety a nd depressed mood December 19, 2024 8:51am Breast cancer, left December 19, 2024 8:5 1am Cancer associated pain December 19, 2024 8:51am Chief Complaint Admit Date sent by September 17, 2024 2 :47pm sent by September 18, 2024 9 :43am sent by 2024 9 :58am 2WK INPT FOLLOW UP October 03, 2024 2 :48pm J18.9 J85.0 October 07, 2024 1 1:38am f/u after feeling ill October 16 9:46am Hospital F/u October 17, 2024 1:34pm . October 30, 2024 7:45am Follow Up/Treatment October 30, 2024 9:58am j85.0 November 04, 2024 12:5 1pm f/u prior to tx December 11, 2024 10:3 6am breast cancer December 11, 2024 11:1 0am Reason for Visit Admit Date Breast cancer, left September 17, 2024 1 1:17am Osteopenia September 17, 2024 1 1:17am Breast cancer, left September 17, 2024 2 :47pm Acute anemia September 17, 2024 2 :47pm Bacteremia due to Streptococcus pneumoni ae September 17, 2024 2:47pm Immunosuppressed due to chemotherapy Sep 2:47pm Osteopenia September 17, 2024 2 :47pm Pancytopenia September 17, 2024 2 :47pm Pneumonia September 17, 2024 2 :47pm UTI (urinary tract infection) September 172024 2:47pm Breast cancer, left October 03, 2024 2 :48pm Osteopenia October 03, 2024 2 :48pm Breast cancer, left October 16, 2024 9:46am Osteopenia October 16, 2024 9:46am Necrotizing pneumonia October 17 1:34pm Bacteremia due to Streptococcus pneumoni ae October 17, 2024 1:34pm Pneumonia October 17, 2024 1:34pm Adjustment disorder with mixed anxiety a nd depressed mood October 17, 2024 2:04pm Breast cancer, left October 17, 2024 2:04pm Cancer associated pain October 17 2:04pm Neuropathy October 17, 2024 2:04pm Breast cancer, left October 30, 2024 7:45am Cancer associated pain October 30 7:45am Neuropathy October 30, 2024 7:45am Breast cancer, left October 30, 2024 9:58am Osteopenia October 30, 2024 9:58am Breast cancer, left November 27, 2024 7:5 2am Cancer associated pain November 27, 2024 7:52am Constipation November 27, 2024 7:5 2am Neuropathy November 27, 2024 7:5 2am Breast cancer, left December 11, 2024 10:3 6am Osteopenia December 11, 2024 10:3 6am Chief Complaint Admit Date Follow Up September 03, 2024 1:28pm sent by September 17, 2024 2 :47pm sent by September 18, 2024 9 :43am sent by 2024 9 :58am 2WK INPT FOLLOW UP October 03, 2024 2 :48pm J18.9 J85.0 October 07, 2024 1 1:38am f/u after feeling ill October 16 9:46am Hospital F/u October 17, 2024 1:34pm . October 30, 2024 7:45am Follow Up/Treatment October 30, 2024 9:58am j85.0 November 04, 2024 12:5 1pm breast cancer November 27, 2024 11: 03am Reason for Visit Admit Date Breast cancer, left September 03, 2024 1:28pm Osteopenia September 03, 2024 1:28pm Breast cancer, left September 05, 2024 8: 46am Cancer associated pain September 05, 2024 8:46am Nausea September 05, 2024 8: 46am Breast cancer, left September 17, 2024 1 1:17am Osteopenia September 17, 2024 1 1:17am Breast cancer, left September 17, 2024 2 :47pm Acute anemia September 17, 2024 2 :47pm Bacteremia due to Streptococcus pneumoni ae September 17, 2024 2:47pm Immunosuppressed due to chemotherapy [place] 2024 2:47pm Osteopenia September 17, 2024 2 :47pm Pancytopenia September 17, 2024 2 :47pm Pneumonia September 17, 2024 2 :47pm UTI (urinary tract infection) September 172024 2:47pm Breast cancer, left October 03, 2024 2 :48pm Osteopenia October 03, 2024 2 :48pm Breast cancer, left October 16, 2024 9:46am Osteopenia October 16, 2024 9:46am Necrotizing pneumonia October 17 1:34pm Bacteremia due to Streptococcus pneumoni ae October 17, 2024 1:34pm Pneumonia October 17, 2024 1:34pm Adjustment disorder with mixed anxiety a nd depressed mood October 17, 2024 2:04pm Breast cancer, left October 17, 2024 2:04pm Cancer associated pain October 17 2:04pm Neuropathy October 17, 2024 2:04pm Breast cancer, left October 30, 2024 7:45am Cancer associated pain October 30 7:45am Neuropathy October 30, 2024 7:45am Breast cancer, left October 30, 2024 9:58am Osteopenia October 30, 2024 9:58am Breast cancer, left November 27, 2024 7:5 2am Cancer associated pain November 27, 2024 7:52am Constipation November 27, 2024 7:5 2am Neuropathy November 27, 2024 7:5 2am Chief Complaint Admit Date Follow Up 3 Weeks August 21, 2024 3:02pm Follow Up September 03, 2024 1:28pm sent by September 17, 2024 2 :47pm sent by September 18, 2024 9 :43am sent by 2024 9 :58am 2WK INPT FOLLOW UP October 03, 2024 2 :48pm J18.9 J85.0 October 07, 2024 1 1:38am f/u after feeling ill October 16 9:46am Hospital F/u October 17, 2024 1:34pm Follow Up/Treatment October 30, 2024 9:58am breast cancer October 30, 2024 10:28am Reason for Visit Admit Date Breast cancer, left August 21, 2024 3:02pm Osteopenia August 21, 2024 3:02pm Breast cancer, left August 22, 2024 2:54pm Cancer associated pain August 22 2:54pm Encounter for palliative care August 042023 2:54pm Breast cancer, left September 03, 2024 1:28pm Osteopenia September 03, 2024 1:28pm Breast cancer, left September 05, 2024 8: 46am Cancer associated pain September 05, 2024 8:46am Nausea September 05, 2024 8: 46am Breast cancer, left September 17, 2024 1 1:17am Osteopenia September 17, 2024 1 1:17am Breast cancer, left September 17, 2024 2 :47pm Acute anemia September 17, 2024 2 :47pm Bacteremia due to Streptococcus pneumoni ae September 17, 2024 2:47pm Immunosuppressed due to chemotherapy [place] 2024 2:47pm Osteopenia September 17, 2024 2 :47pm Pancytopenia September 17, 2024 2 :47pm Pneumonia September 17, 2024 2 :47pm UTI (urinary tract infection) September 172024 2:47pm Breast cancer, left October 03, 2024 2 :48pm Osteopenia October 03, 2024 2 :48pm Breast cancer, left October 16, 2024 9:46am Osteopenia October 16, 2024 9:46am Necrotizing pneumonia October 17 1:34pm Bacteremia due to Streptococcus pneumoni ae October 17, 2024 1:34pm Pneumonia October 17, 2024 1:34pm Adjustment disorder with mixed anxiety a nd depressed mood October 17, 2024 2:04pm Breast cancer, left October 17, 2024 2:04pm Cancer associated pain October 17 2:04pm Neuropathy October 17, 2024 2:04pm Breast cancer, left October 30, 2024 7:45am Cancer associated pain October 30 7:45am Neuropathy October 30, 2024 7:45am Breast cancer, left October 30, 2024 9:58am Osteopenia October 30, 2024 9:58am Chief Complaint Admit Date Tox check July 31, 2024 2:07pm Follow Up 3 Weeks August 21, 2024 3:02pm Follow Up September 03, 2024 1:28pm breast cancer September 05, 2024 10 :02am Reason for Visit Admit Date Breast cancer, left July 31, 2024 2:07pm Encounter for screening for osteoporosis July 31, 2024 2:07pm Breast cancer, left August 21, 2024 3:02pm Osteopenia August 21, 2024 3:02pm Breast cancer, left August 22, 2024 2:54pm Cancer associated pain August 22 2:54pm Encounter for palliative care August 042023 2:54pm Breast cancer, left September 05, 2024 8: 46am Cancer associated pain September 05, 2024 8:46am Nausea September 05, 2024 8: 46am Chief Complaint Follow up 2wk after surgery breast cancer .Reason for VisitBreast cancer, left Encounter for screening for osteoporosis Chief Complaint Follow up 2wk after surgery breast cancerReason for VisitBreast cancer, left Encounter for screening for osteoporosis Chief Complaint Unknown NEW breast cancer breast cancer UnknownReason for VisitBreast cancer, left Encounter for screening for osteoporosis Chief Complaint Unknown NEW breast cancerReason for VisitBreast cancer, left Encounter for screening for osteoporosis Additional Source Comments INFORMATION SOURCE (unrecogn ized section and content) DATE CREATED AUTHOR 09/08/2021 [facility] DATE CREATED AUTHOR AUTHOR'S ORGANIZ ATION 05/01/2024 [facility] DATE CREATED AUTHOR AUTHOR'S ORGANIZ ATION 05/19/2024 [facility] DATE CREATED AUTHOR AUTHOR'S ORGANIZ ATION 05/23/2024 [facility] DATE CREATED AUTHOR AUTHOR'S ORGANIZ ATION 05/26/2024 [facility] DATE CREATED AUTHOR AUTHOR'S ORGANIZ ATION 05/29/2024 [facility] DATE CREATED AUTHOR AUTHOR'S ORGANIZ ATION 06/06/2024 [facility] DATE CREATED AUTHOR AUTHOR'S ORGANIZ ATION 06/21/2024 [facility] DATE CREATED AUTHOR AUTHOR'S ORGANIZ ATION 07/04/2024 [facility] DATE CREATED AUTHOR AUTHOR'S ORGANIZ ATION 07/11/2024 [facility] DATE CREATED AUTHOR AUTHOR'S ORGANIZ ATION 07/23/2024 [facility] DATE CREATED AUTHOR AUTHOR'S ORGANIZ ATION 08/01/2024 [facility] DATE CREATED AUTHOR AUTHOR'S ORGANIZ ATION 05/02/2025 [facility] DATE CREATED AUTHOR AUTHOR'S ORGANIZ ATION 06/17/2025 [facility] DATE CREATED AUTHOR AUTHOR'S ORGANIZ ATION 07/04/2025 [facility] Patient Care team informatio n (unrecognized section and content) Team Status: Active Member Role Status Dates Estela Krishnan MD Primary Care Provider Active Team Status: Inactive Member Role Status Dates Estela Krishnan MD Primary Care Provider Active S tart: January 10, 2024 End: January 10, 2024Roshan Braun MD FACSAttending ProviderActiveStart: January 10, 2024 End: January 10, 2024 Team Status: Active Member Role Status Dates Michael Holley MD Primary Care Provider Active Team Status: Inactive Member Role Status Dates Estela Krishnan MD Primary Care Provider Active S tart: February 08, 2024 End: February 08, 2024tara Glez MDAttending ProviderActiveStart: February 08, 2024 End: February 08, 2024Roshan Braun MD FACSReferring ProviderActiveStart: February 08, 2024 End: February 08, 2024 Team Status: Active Member Role Status Dates Michael Holley MD Primary Care Provider Active Start: February 13, 2024 Dorothy Jacobsending ProviderActiveStart: February 13, 2024 Roshan Braun MD FACSReferring ProviderActiveStart: February 13, 2024 Team Status: Inactive Member Role Status Dates Michael Holley MD Primary Care Provider Active Start: February 20, 2024 End: February 20, 2024Roshan Braun MD [facility]SAtt[facility] ProviderActiveStart: February 20, 2024 End: February 20, 2024 Team Status: Inactive Member Role Status Dates Michael Holley MD Primary Care Provider Active Start: May 30, 2024 End: May 30, 2024tara Glez MDAttending ProviderActiveStart: May 30, 2024 End: May 30, 2024 Team Status: Active Member Role Status Dates Michael Holley MD Primary Care Provider Active Start: May 30, 2024 Halley Jacobs ProviderActiveStart: May 30, 2024 Roshan Braun MD FACSReftaning ProviderActiveStart: May 30, 2024 Team Status: Inactive Member Role Status Dates Michael Holley MD Primary Care Provider Active Start: June 05, 2024 End: June 05, 2024[facility] carlislettending ProviderActiveStart: June 05, 2024 End: June 05, 2024 Team Status: Inactive Member Role Status Dates Michael Holley MD Primary Care Provider Active Start: July 31, 2024 End: July 31, 2024d Derek Glez MDAttending ProviderActiveStart: July 31, 2024 End: July 31, 2024 Team Status: Inactive Member Role Status Dates Michael Holley MD Primary Care Provider Active Start: August 21, 2024 End: August 21, 2024d Derek Glez MDAttending ProviderActiveStart: August 21, 2024 End: August 21, 2024 Team Status: Inactive Member Role Status Dates Michael Holley MD Primary Care Provider Active Start: August 22, 2024 End: August 22, 2024Guido Wilcox ProviderActiveStart: August 22, 2024 End: August 22, 2024 Team Status: Inactive Member Role Status Dates Michael Holley MD Primary Care Provider Active Start: September 03, 2024 End: September 03, 2024Guido Wilson ProviderActive Start: September 03, 2024 End: September 03, 2024 Team Status: Inactive Member Role Status Dates Michael Holley MD Primary Care Provider Active Start: September 05, 2024 End: September 05, 2024Guido Wilcox ProviderActiveStart: September 05, 2024 End: September 05, 2024 Team Status: Active Member Role Status Dates Michael Holley MD Primary Care Provider Active Start: September 05, 2024 d Dorothy Vazquezending ProviderActiveStart: September 05, 2024 Roshan Braun MD FACSReferring ProviderActiveStart: September 05, 2024 Team Status: Inactive Member Role Status Dates Michael Holley MD Primary Care Provider Active Start: September 17, 2024 End: September 17, 2024Guido Wilson ProviderActive Start: September 17, 2024 End: September 17, 2024 Team Status: Active Member Role Status Dates Michael Holley MD Primary Care Provider Active Start: September 17, 2024 Espinoza Hui ProviderActiveStart: September 17, 2024 Obnohemi Travis Jose , MDAdmit Provider, Attending ProviderActiveStart: September 17, 2024 Team Status: Inactive Member Role Status Dates Michael Holley MD Primary Care Provider Active Start: September 17, 2024 End: September 25, 2024Patricdarnell Ellsworth , DOEmergenlevi ProviderActiveStart: September 17, 2024 End: September 25, 2024Joe Garcia , MDAdmit Provider, Attending Provider ActiveStart: September 17, 2024 End: September 25, 2024Miceddie Reynoso MDOther ProviderActiveStart: September 17, 2024 End: September 25brain Simpson MDOther ProviderActiveStart: September 17, 2024 End: September 25, 2024Frank Paez II, DOOther ProviderActiveStart: September 17, 2024 End: September 25, 2024Raisa Enriquez MDOther ProviderActiveStart: September 17, 2024 End: September 25dikhang Bone MDOther ProviderActiveStart: September 17, 2024 End: September 25, 2024Jodada TracyOther ProviderActiveStart: September 17, 2024 End: September 25, 2024Cynthia Clayton APRNOther ProviderActiveStart: September 17, 2024 End: September 25, 2024Elda William ProviderActiveStart: September 17, 2024 End: September 25, 2024Danielle PerdomoOther ProviderActiveStart: September 17, 2024 End: September 25, 2024Elizabeth Ballard ProviderActiveStart: September 17, 2024 End: September 25, 2024Vernell Pierce APRNOther ProviderActiveStart: September 17, 2024 End: September 25, 2024Kami LaraOther ProviderActiveStart: September 17, 2024 End: September 25, 2024Jair Weber MDOther ProviderActiveStart: September 17, 2024 End: 2024 Team Status: Active Member Role Status Dates Michael Holley MD Primary Care Provider Active Start: September 18, 2024 Modesue Ellsworth , Espinoza ProviderActiveStart: September 18, 2024 Joe Garcia , MDAdmit Provider, Other ProviderActiveStart: September 18, 2024 Roshan Reynoso , MDAttending Provider, Other ProviderActiveStart: September 18, 2024 Team Status: Active Member Role Status Dates Michael Holley MD Primary Care Provider Active Start: 2024 Mode Ellsworth DOEan ProviderActiveStart: 2024 Joe Garcia , MDAdmit Provider, Other ProviderActiveStart: 2024 Roshan Reynoso , MDAttending Provider, Other ProviderActiveStart: 2024 Josseline Simpson MDOther ProviderActiveStart: 2024 Frank Paez II, DOOther ProviderActiveStart: 2024 Raisa Enriquez MDOther ProviderActiveStart: 2024 Dorothy Bone MDOther ProviderActiveStart: 2024 Tiff TracyOther ProviderActiveStart: 2024 ShaniaElda Clayton , APRNOther ProviderActiveStart: 2024 Elda William ProviderActiveStart: 2024 Danielle PerdomoOther ProviderActiveStart: 2024 Kush Glez MDOther ProviderActiveStart: 2024 Vernell Pierce , APRNOther ProviderActiveStart: 2024 Kami LaraOther ProviderActiveStart: 2024 Jair Weber MDOther ProviderActiveStart: 2024 Team MemberRelationshipSpecialtyStart DateEnd Date Estela Krishnan MD [address] [place] [address] PCP - [facility]02/12/24 Team Status: Inactive Member Role Status Dates Michael Holley MD Primary Care Provider Active Start: September 17, 2024 End: September 25, 2024Espinoza Hui ProviderActiveStart: September 17, 2024 End: September 25, 2024Negra Herrmann Provider, Attending Provider ActiveStart: September 17, 2024 End: September 25, 2024Elizabeth Bro ProviderActiveStart: September 17, 2024 End: September 25Elizabeth Godoy ProviderActiveStart: September 17, 2024 End: September 25, 2024Frank Paez II, DOOther ProviderActiveStart: September 17, 2024 End: September 25, 2024Raisa Enriquez MDOther ProviderActiveStart: September 17, 2024 End: September 25Elizabeth Almendarez ProviderActiveStart: September 17, 2024 End: September 25, 2024Tiff TracyOther ProviderActiveStart: September 17, 2024 End: September 25, 2024Karol Wilsonher ProviderActiveStart: September 17, 2024 End: September 25, 2024Elda William ProviderActiveStart: September 17, 2024 End: September 25, 2024Danielle SomersOther ProviderActiveStart: September 17, 2024 End: September 25, 2024Elizabeth Ballard ProviderActiveStart: September 17, 2024 End: September 25, 2024Vernell Pierce APRFaviolaher ProviderActiveStart: September 17, 2024 End: September 25, 2024Kami MoodyOther ProviderActiveStart: September 17, 2024 End: September 25, 2024Elizabeth Omalley ProviderActiveStart: September 17, 2024 End: 2024 Team Status: Active Member Role Status Dates Michael Holley MD Primary Care Provider Active Start: 2024 Espinoza Hui ProviderActiveStart: 2024 Negra Herrmann Provider, Other ProviderActiveStart: 2024 Halley Bro Provider, Other ProviderActiveStart: 2024 Josseline Simpson MDOther ProviderActiveStart: 2024 Frank Paez II, DOOther ProviderActiveStart: 2024 Raisa Enriquez MDOther ProviderActiveStart: 2024 Dorothy Bone MDOther ProviderActiveStart: 2024 Tiff TracyOther ProviderActiveStart: 2024 Shania Demboske , APRNOther ProviderActiveStart: 2024 Elda William ProviderActiveStart: 2024 Danielle MeltonetzOther ProviderActiveStart: 2024 Kush Glez MDOther ProviderActiveStart: 2024 Vernell Pierce , APRNOther ProviderActiveStart: 2024 Kami MoodyOther ProviderActiveStart: 2024 Jair Weber MDOther ProviderActiveStart: 2024 Team Status: Active Member Role Status Dates Michael Holley MD Primary Care Provider Active Start: October 03, 2024 Mhtara Glez , MDAttending ProviderActiveStart: October 03, 2024 Roshan Braun MD FACSReferring ProviderActiveStart: October 03, 2024 Team Status: Inactive Member Role Status Taz Holley MD Primary Care Provider Active Start: October 03, 2024 End: October 03, 2024tara Glez MDAttending ProviderActiveStart: October 03, 2024 End: October 03, 2024 Team Status: Inactive Member Role Status Taz Holley MD Primary Care Provider Active Start: October 07, 2024 End: October 07, 2024Miceddie Reynoso MDAaprylending ProviderActiveStart: October 07, 2024 End: October 07, 2024 Team Status: Active Member Role Status Taz Holley MD Primary Care Provider Active Start: August 22, 2024 Elda Hurtado , APRNAttending Provider, Other ProviderActiveStart: August 22, 2024 Team Status: Active Member Role Status Dates Michael Holley MD Primary Care Provider Active Start: September 05, 2024 Guido Wilcox Provider, Other ProviderActiveStart: September 05, 2024 Team Status: Inactive Member Role Status Dates Michael Holley MD Primary Care Provider Active Start: October 16, 2024 End: October 16, 2024d Derek Bales-Nhung , MDAttending ProviderActiveStart: October 16, 2024 End: October 16, 2024 Team Status: Active Member Role Status Dates Michael Holley MD Primary Care Provider Active Start: October 16, 2024 d Derek Bales-Nhung , MDAttending ProviderActiveStart: October 16, 2024 Roshan Braun MD FACSReferring ProviderActiveStart: October 16, 2024 Team Status: Inactive Member Role Status Dates Michael Holley MD Primary Care Provider Active Start: October 17, 2024 End: October 17, 2024[facility] Reynoso MDAttending ProviderActiveStart: October 17, 2024 End: October 17, 2024 Team Status: Inactive Member Role Status Dates Michael Holley MD Primary Care Provider Active Start: October 17, 2024 End: October 17, 2024Guido Wilcox ProviderActiveStart: October 17, 2024 End: October 17, 2024 Team Status: Active Member Role Status Dates Michael Holley MD Primary Care Provider Active Start: October 30, 2024 Guido Wilcox ProviderActiveStart: October 30, 2024 Team Status: Inactive Member Role Status Dates Michael Holley MD Primary Care Provider Active Start: October 30, 2024 End: October 30, 2024d Derek Bales-Nhung MDAttending ProviderActiveStart: October 30, 2024 End: October 30, 2024 Team Status: Active Member Role Status Dates Michael Holley MD Primary Care Provider Active Start: October 30, 2024 d Derek Glez MDAttending ProviderActiveStart: October 30, 2024 Roshan Braun MD FACSReferring ProviderActiveStart: October 30, 2024 Team Status: Inactive Member Role Status Dates Michael Holley MD Primary Care Provider Active Start: October 30, 2024 End: October 30, 2024Guido Wilcox ProviderActiveStart: October 30, 2024 End: October 30, 2024 Team Status: Active Member Role Status Dates Michael Holley MD Primary Care Provider Active Start: October 30, 2024 Guido Wilcox Provider, Other ProviderActiveStart: October 30, 2024 Team Status: Inactive Member Role Status Dates Michael Holley MD Primary Care Provider Active Start: November 04, 2024 End: November 04, 2024Miceddie Reynoso MDAttending ProviderActiveStart: November 04, 2024 End: November 04, 2024 Team Status: Active Member Role Status Dates Michael Holley MD Primary Care Provider Active Start: November 04, 2024 Dorothy Ballardending ProviderActiveStart: November 04, 2024 Roshan Braun MD FACSReferring ProviderActiveStart: November 04, 2024 Team Status: Inactive Member Role Status Dates Michael Holley MD Primary Care Provider Active Start: November 27, 2024 End: November 27, 2024Guido Wilcox ProviderActiveStart: November 27, 2024 End: November 27, 2024 Team Status: Active Member Role Status Dates Michael Holley MD Primary Care Provider Active Start: November 27, 2024 Halley Ballard ProviderActiveStart: November 27, 2024 Roshan Braun MD FACSReferring ProviderActiveStart: November 27, 2024 Team Status: Active Member Role Status Dates Michael Holley MD Primary Care Provider Active Start: November 27, 2024 Guido Wilcox Provider, Other ProviderActiveStart: November 27, 2024 Team Status: Inactive Member Role Status Dates Michael Holley MD Primary Care Provider Active Start: December 11, 2024 End: December 11, 2024tara Glez MDAttjoanne ProviderActiveStart: December 11, 2024 End: December 11, 2024 Team Status: Active Member Role Status Dates Michael Holley MD Primary Care Provider Active Start: December 11, 2024 Mhd Yaser Al-Marrawi , MDAttending ProviderActiveStart: December 11, 2024 Roshan Braun MD FACSReferring ProviderActiveStart: December 11, 2024 Team Status: Inactive Member Role Status Dates Michael Holley MD Primary Care Provider Active Start: December 19, 2024 End: December 19, 2024Elda Hurtado , APRNAttenenrique ProviderActiveStart: December 19, 2024 End: December 19, 2024 Team Status: Active Member Role Status Dates Michael Holley MD Primary Care Provider Active Start: December 19, 2024 d Derek Bales-Nhung , MDAttending ProviderActiveStart: December 19, 2024 Roshan Braun MD FACSReferring ProviderActiveStart: December 19, 2024 Team Status: Active Member Role Status Dates Michael Holley MD Primary Care Provider Active Start: December 19, 2024 Elda Hurtado , GENEVIEVENAttenenrique Provider, Other ProviderActiveStart: December 19, 2024 Team Status: Inactive Member Role Status Dates Michael Holley MD Primary Care Provider Active Start: December 25, 2024 End: December 25, 2024Elda Hurtado , APRNAttenenrique ProviderActiveStart: December 25, 2024 End: December 25, 2024 Team Status: Active Member Role Status Dates Michael Holley MD Primary Care Provider Active Start: December 25, 2024 Roshan Braun MD FACSReferring ProviderActiveStart: December 25, 2024 Josseline Simpson , MDActiveStart: December 25, 2024 d Derek Bales-Nhung , MDAttending ProviderActiveStart: December 25, 2024 Team Status: Active Member Role Status Dates Michael Holley MD Primary Care Provider Active Start: January 01, 2025 Elda Hurtado APRNAtemilia ProviderActiveStart: January 01, 2025 Team Status: Inactive Member Role Status Dates Michael Holley MD Primary Care Provider Active Start: January 01, 2025 End: January 01, 2025d Derek Bales-Iselaraomero , MDAttending ProviderActiveStart: January 01, 2025 End: January 01, 2025 Team Status: Active Member Role Status Dates Michael Holley MD Primary Care Provider Active Start: January 01, 2025 Roshan Braun MD FACSReferring ProviderActiveStart: January 01, 2025 Josseline Simpson , MDActiveStart: January 01, 2025 Mhd Yaser Al-Marrawi , MDAttending ProviderActiveStart: January 01, 2025 Team Status: Inactive Member Role Status Dates Michael Holley MD Primary Care Provider Active Start: January 01, 2025 End: January 01, 2025Elda Hurtado APRNAttenenrique ProviderActiveStart: January 01, 2025 End: January 01, 2025 Team Status: Active Member Role Status Dates Michael Holley MD Primary Care Provider Active Start: January 01, 2025 Guido Wilcox Provider, Other ProviderActiveStart: January 01, 2025 Team Status: Active Member Role Status Dates Michael Holley MD Primary Care Provider Active Start: February 04, 2025 Roshan Braun MD FACSReferring ProviderActiveStart: February 04, 2025 Josseline Simpson , MDActiveStart: February 04, 2025 Mhd Yaser Al-Marrawi , MDAttending ProviderActiveStart: February 04, 2025 Team Status: Inactive Member Role Status Dates Michael Holley MD Primary Care Provider Active Start: February 04, 2025 End: February 04, 2025Noveronica Elizabeth , MDAttending ProviderActiveStart: February 04, 2025 End: February 04, 2025d Yaser Al-Marrekha , MDReferring ProviderActiveStart: February 04, 2025 End: February 04, 2025 Team Status: Active Member Role Status Dates Michael Holley MD Primary Care Provider Active Start: December 19, 2024 Elda Hurtado APRNAttenenrique ProviderActiveStart: December 19, 2024 Joselyn Wilcox ProviderActiveStart: December 19, 2024 Team Status: Active Member Role Status Taz Holley MD Primary Care Provider Active Start: January 01, 2025 Guido Wilcox ProviderActiveStart: January 01, 2025 Joselyn Wilcox ProviderActiveStart: January 01, 2025 Team Status: Active Member Role Status Dates Michael Holley MD Primary Care Provider Active Start: February 06, 2025 Roshan Braun MD FACSReferring ProviderActiveStart: February 06, 2025 Linnette Elizabeth , MDAttending ProviderActiveStart: February 06, 2025 Elizabeth Lancaster ProviderActiveStart: February 06, 2025 Team Status: Active Member Role Status Dates Michael Holley MD Primary Care Provider Active Start: February 17, 2025 Roshan Braun MD FACSReferring ProviderActiveStart: February 17, 2025 Linnette Elizabeth , MDAttending ProviderActiveStart: February 17, 2025 Linnette Elizabeth MDOther ProviderActiveStart: February 17, 2025 Team Status: Active Member Role Status Dates Michael Holley MD Primary Care Provider Active Start: February 24, 2025 Roshan Braun MD FACSReferring ProviderActiveStart: February 24, 2025 Linnette Elizabeth , JOSIAHttending ProviderActiveStart: February 24, 2025 Elizabeth Lancaster ProviderActiveStart: February 24, 2025 Team Status: Inactive Member Role Status Dates Michael Holley MD Primary Care Provider Active Start: March 03, 2025 End: March 03, 2025Guido Wilcox ProviderActiveStart: March 03, 2025 End: March 03, 2025 Team Status: Active Member Role Status Dates Michael Holley MD Primary Care Provider Active Start: March 03, 2025 Roshan Braun MD FACSReferring ProviderActiveStart: March 03, 2025 Dorothy Lancasterending ProviderActiveStart: March 03, 2025 Elizabeth Lancaster ProviderActiveStart: March 03, 2025 Team Status: Active Member Role Status Dates Michael Holley MD Primary Care Provider Active Start: March 03, 2025 Guido Wilcox ProviderActiveStart: March 03, 2025 Joselyn Wilcox ProviderActiveStart: March 03, 2025 Team Status: Active Member Role Status Dates Michael Holley MD Primary Care Provider Active Start: March 10, 2025 Roshan Braun MD FACSReferring ProviderActiveStart: March 10, 2025 Linnette Elizabeth , MDAttending ProviderActiveStart: March 10, 2025 Linnette Elizabeth MDOther ProviderActiveStart: March 10, 2025 Team Status: Inactive Member Role Status Dates Michael Holley MD Primary Care Provider Active Start: March 25, 2025 End: March 25, 2025Cynthia Clayton , APRNAttenenrique ProviderActiveStart: March 25, 2025 End: March 25, 2025d Derek Bales-Nhung , MDAttending ProviderActiveStart: March 25, 2025 Team Status: Inactive Member Role Status Taz Holley MD Primary Care Provider Active Start: March 25, 2025 End: March 25, 2025Cytnhia Clayton , APRNAttenenrique ProviderActiveStart: March 25, 2025 End: March 25, 2025 Team Status: Inactive Member Role Status Taz Holley MD Primary Care Provider Active Start: April 10, 2025 End: April 10, 2025Cynthia Clayton APRNAttending ProviderActive Start: April 10, 2025 End: April 10, 2025 Team Status: Active Member Role Status Taz Holley MD Primary Care Provider Active Start: April 10, 2025 Roshan Braun MD FACSReferring ProviderActiveStart: April 10, 2025 d Derek Bales-Nhung , MDAttending ProviderActiveStart: April 10, 2025 Team Status: Active Member Role Status Taz Holley MD Primary Care Provider Active Start: April 23, 2025 Elda Hurtado APRNAttenenrique ProviderActiveStart: April 23, 2025 Team Status: Inactive Member Role Status Dates Michael Holley MD Primary Care Provider Active Start: April 23, 2025 End: April 23, 2025d Derek Glez , MDAttending ProviderActiveStart: April 23, 2025 End: April 23, 2025 Team Status: Active Member Role Status Taz Holley MD Primary Care Provider Active Start: April 23, 2025 Roshan Braun MD FACSReferring ProviderActiveStart: April 23, 2025 Kush Glez MDAttending ProviderActiveStart: April 23, 2025 Team Status: Inactive Member Role Status Dates Michael Holley MD Primary Care Provider Active Start: April 23, 2025 End: April 23, 2025Elda Hurtado , GENEVIEVENAttenenrique ProviderActiveStart: April 23, 2025 End: April 23, 2025 Goals (unrecognized section and content) Goals may [...] BE BASED ON THE PRIMARY CLINICAL RECORDS. [employer] provides no warranty or guarantee of the accuracy or completeness of information in this document.
--- NOTE | 2025-07-09 13:24 | ECG_ITS ---
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 Measurements Intervals Wiley Rate: 65 P: 69 FL: 170 QRS: -25 QRSD: 97 T: 54 QT: 424 QTc: 444 Interpretive Statements SINUS RHYTHM LEFT ATRIAL ENLARGEMENT [-0.15mV P WAVE IN V1/V2] BORDERLINE LEFT AXIS DEVIATION [QRS AXIS < -20] POSSIBLE RIGHT VENTRICULAR CONDUCTION DELAY [RSR (QR) IN V1/V2] POSSIBLE LEFT VENTRICULAR HYPERTROPHY [VOLTAGE CRITERIA PLUS LAE OR QRS WIDENING] Compared to ECG 09/05/2023 11:43:07 No significant changes Electronically Signed On 07-10-2025 7:19:02 EST by RAMYA BUCKLEY M.D.
[2025-07-09 14:26] LABS: Anion Gap 11.8; Blood Urea Nitrogen 18.0 mg/dL (7.0-18.0); Calcium 9.8 mg/dL (8.5-10.1); Carbon Dioxide 33.2 mmol/L (21.0-32.0); Chloride 98 mmol/L (98-107); Estimated GFR (African America 54 (>=60 mL/min/1.73m^2); Estimated GFR (Non-African Ame 45 (>=60 mL/min/1.73m^2); Glucose 104 mg/dL (74-106); Potassium 4.0 mmol/L (3.5-5.1); Sodium 139 mmol/L (136-145)
== END 2025-07-09 13:01 | disposition home or self-care (01) ==
LOC: PST 13:01
PROVIDERS: PCP Family Medicine; Visit Provider Surgery
DX: Z01.810 Encounter for preprocedural cardiovascular examination (principal); Z01.812 Encounter for preprocedural laboratory examination; Z85.3 Personal history of malignant neoplasm of breast; Z45.2 Encounter for adjustment and management of vascular access device
CPT/HCPCS: 36415; 80048; 93005

== ENCOUNTER 2025-07-23 08:09 | Day surgery (SDC) | payer MEDICARE, SELFPAY ==
[2025-07-09 14:05] VITALS: BP 161/107; PULSE 81; TEMP 36.5; O2SAT 97; BMI 18.6
--- OUTSIDE RECORDS SUMMARY | 2025-07-17 19:16 | XMS_ITS | Continuity of Care Document ---
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 Name Role Phone Michael Holley MD Primary Care Provider Elda Hutrado APRN Attending Provider [phone] Kush Glez MD Attending Provider Cynthia Clayton APRN Attending Provider Roshan Chaney MD Referring Provider Care Teams Patient Care Team Team Status: Active Member Role/Relationship Status Dates Michael Holley MD Primary Care Provider Active Visit Care Team Team Status: Inactive Member Role/Relationship Status Dates Michael Holley MD Primary Care Provider Active Start: April 23, 2025 End: April 23, 2025Guido Wilcox ProviderActiveStart: April 23, 2025 End: April 23, 2025 Visit Care Team Team Status: Inactive Member Role/Relationship Status Dates Michael Holley MD Primary Care Provider Active Start: April 23, 2025 End: April 23, 2025Halley Ballard ProviderActiveStart: April 23, 2025 End: April 23, 2025 Visit Care Team Team Status: Inactive Member Role/Relationship Status Dates Michael Holley MD Primary Care Provider Active Start: July 17, 2025 End: July 17, 2025Guido Wilcox ProviderActiveStart: July 17, 2025 End: July 17, 2025 Visit Care Team Team Status: Inactive Member Role/Relationship Status Dates Micheal Holley MD Primary Care Provider Active Start: July 17, 2025 End: July 17, 2025Cynthia Clayton Stevenednaenrique ProviderActive Start: July 17, 2025 End: July 17, 2025 Visit Care Team Team Status: Active Member Role/Relationship Status Dates Michael Holley MD Primary Care Provider Active Start: July 17, 2025 Roshan Chaney MD FACSReferring ProviderActiveStart: July 17, 2025 tara Glez MDAttending ProviderActiveStart: July 17, 2025 Chief Complaint and Reason for Visit Chief Complaint Admit Date 10 wk f/u April 23, 2025 11 :06am 3 month Follow Up, Left Breast Cancer No vember 2024 10:47am breast cancer July 17, 2025 10:48am Reason for Visit Admit Date Breast cancer, left April 23, 2025 7: 32am Neuropathy April 23, 2025 7: 32am Breast cancer, left April 23, 2025 11 :06am Osteopenia April 23, 2025 11 :06am Breast cancer, left July 17, 2025 8:48am Cancer associated pain July 17 8:48am Nausea July 17, 2025 8:48am Neuropathy July 17, 2025 8:48am Breast cancer, left July 17, 2025 10:47am Reason for Referral Type Reason(s) Provider Provider Contact Information [facility] Address Start Date Malignant neoplasm of left lwnoajJ63.912 - Malignant neoplasm of unspecified site of left female breast,Z17.0 - Estrogen receptor positive status [ER+]Roshan Chaney MD FACSWork Phone: [phone] [place] [id number] 2024 Allergies, Adverse Reactions, Alerts Allergen Type Severity Reaction Last Updated Verified Status Corticosteroids (Glucocorticoids) Allergy Unknown Unknown Reaction July 17, 2025 11:17am Yes Active metaxalone Allergy Unknown Unknown Reaction July 17, 2025 11:17am Yes Active entex Allergy Unknown Unknown Reaction Delores 3rd, 2025 10:06am No Active Social History Smoking Status Status Start Date End Date Date of Observa tion Ex-smoker (finding) July 17, 2025 10:29am Observation Status Observation Response Date of Response Legal Sex Female (finding) Sex Assigned At [facility] 1960 Family History Relationship Condition Age at Onset Recorded Date/T thony family member Malignant neoplasm of breast Unknown Problems Active Problems Problem Diagnosis/Recorded Date Onset Date Stat Breast cancer, left February 08, 2024 2:27pm Unknown Active Encounter for screening for osteoporosis February 07 2:27pm Unknown Active Necrotizing pneumonia 2024 10:01am Unkno wn Active Anxiety September 05, 2024 8:48am Unknown Act js Neuropathy October 17, 2024 2:25pm Unknown A ctive Cancer associated pain August 22, 2024 2:56pm Unkn own Active Adjustment disorder with mix ed anxiety and depressed mood October 17, 2024 2:41pm Unknown Active Encounter for palliative care August 22, 2024 2:56 pm Unknown Active Nausea September 05, 2024 11:08am Unknown Ac tive Constipation November 27, 2024 11:02am Unknown Act js Inactive/Resolved Problems Problem Diagnosis/Recorded Date Onset Date Stat Bacteremia due to Streptococ cus pneumoniae September 18, 2024 9:48am Unknown Resolved UTI (urinary tract infection) September 17, 2024 3:56p m Unknown Resolved Acute anemia September 17, 2024 4:44pm Unknown Re solved Immunosuppressed due to chemotherapy September 18 9:49am Unknown Resolved Osteopenia August 21, 2024 3:09pm Unknown R esolved Pancytopenia September 17, 2024 3:56pm Unknown Re solved Pneumonia September 17, 2024 3:56pm Unknown Re solved Pneumonia September 18, 2024 9:49am Unknown Re solved Medications Medication Status Dose Units Route Directions Qty Days Refills S tart Date Stop Date End Date Reason(s) Instructions Adherence Naloxone 4 mg/actuation spray,non-aerosol Active 4 MG INTRANASAL every 2 to 3 minutes as needed for opioid overdose 2 0December 2023 12:00amspray 1 dose into ONE nostril; alternate nostrils w each dose until help arrivesUnknownOxycodone-Acetaminophen 5-325 mg tablet Mxgjyzassbud4THJMSDnuha 8 hours as needed for thjh58662Mujhjyja 2023September 26, 2024 11:24amNeoplasm related pain Malignant neoplasm of left breast Neoplasm related pain (acute) (chronic) Malignant neoplasm of unspecified site of left female breastOxycodone- Acetaminophen 5-325 mg svbnpvZuuidvnkdgov9XUHCVEomsf 8 hours as needed for pain 09565Oajvwzs 2024February 2024 2:45pmNeoplasm related pain Malignant neoplasm of left breast Neoplasm related pain (acute) (chronic) Malignant neoplasm of unspecified site of left female breastOxycodone- Acetaminophen 5-325 mg semkssWleflxwwzvis9WCGGARrnaa 6 hours as needed for pain 509359Otzlv pril 2024 11:13amNeoplasm related pain Malignant neoplasm of left breast Neoplasm related pain (acute) (chronic) Malignant neoplasm of unspecified site of left female breastOxycodone- Acetaminophen 10-325 mg xhyvxyCdudrberdckn7XPYAKDTIWW 4-6 HOURS as needed for oduh302845Mmqgg 2024May 2024 8:56amNeoplasm related pain Neoplasm related pain (acute) (chronic)Oxycodone-Acetaminophen 10-325 mg tablet Vpdqxygwvibn9PPOKPVDSIT 4-6 HOURS as needed for vtfk944269Cyh 2024May 2024 1:21pmNeoplasm related pain Neoplasm related pain (acute) (chronic)Oxycodone-Acetaminophen 10-325 mg tablet Zhkawaykftlv6ESNZZTAQAZ 4-6 HOURS as needed for xmbu601196Imi 2024June 2024 11:48amNeoplasm related pain Neoplasm related pain (acute) (chronic)Oxycodone-Acetaminophen 10-325 mg tablet Zxyokztirxhv5VFXHMWDZRE 4-6 HOURS as needed for lszj945272Higj 2024July 2024 1:51pmNeoplasm related pain Neoplasm related pain (acute) (chronic)Duloxetine 60 mg capsule,delayed release(DR/EC)Vagpmwnbdhmp88RQKESucrq09432Xkxx 2024 11:53amAugust 2024 1:56pmMagic Mouthwash W/Lidocaine 240 Ml Bottle 240 mL bottleDiscontinued5 - 25LMLIM7A as needed for Kzcrywjej0361Ywtg 26th, 2025 11:00pmJune 2024 12:01pmMucositis Oral mucositis (ulcerative), unspecifiedhydrocortisone 20 mg tablet 120 mg; diphenhydramine 12.5 mg/5 mL oral liquid 60 mL; Ora-Sweet oral syrup 60 mL; nystatin 100,000 unit/mL oral suspension 60 mL; Lidocaine Viscous 2 % mucosal solution 60 mL; Per 240 mL Instructions - Swish and Swallow dose patient will pickle processor between 2-5 Pantoprazole (Protonix) [address] for susp in packet Wngbdmljekhc13LIWDRyswb297Bunj 26th, 2025 11:00pmJun2024 12:59pm Pantoprazole (Protonix) 40 mg tablet,delayed release (DR/EC)Hnlogo12UDPOKaeta137 February 27, 2025 11:00pmUnknownSilver Sulfadiazine (Silvadene) 1 % cream Xwwwnxmvxulr1GMCVPYHBHHNFRXgzko yazvq533Qyfa 2024 11:00pmNovember 2024 10:53amMalignant neoplasm of left breast Malignant neoplasm of unspecified site of left female breast Estrogen receptor positive status [ER+]Apply to open areas on radiation site, twice a day, until healed.Oxycodone-Acetaminophen 10-325 mg tabletDiscontinued1 TABPOEVERY 4-6 HOURS as needed for tkte471339Lyax ugust 2024 1:56pmNeoplasm related pain Neoplasm related pain (acute) (chronic)Duloxetine 60 mg capsule,delayed release(DR/EC)Bwqtdyzlxdww50HGZGTiguu84440Bycfmu 2024 1:55pmSeptember 2024 2:47pmOxycodone-Acetaminophen 10-325 mg movwsjGbjbhwwniqol2GFJVHDTCRR 4-6 HOURS as needed for cnum598725Getdbm 2024September 2024 2:47pm Neoplasm related pain Neoplasm related pain (acute) (chronic)Duloxetine 60 mg capsule,delayed release(DR/EC)Aultiwbhtqft61QBLWThnlg17034Gfzhqhkxb 2024 2:47pmOctober 2024 12:51pmOxycodone-Acetaminophen 10-325 mg rtvbbcGawrxifspmbd4PHCUR EVERY 4-6 HOURS as needed for elvg454333Ylkwkajaf 2024October 2024 12:51pmNeoplasm related pain Neoplasm related pain (acute) (chronic)Oxycodone-Acetaminophen 10-325 mg tablet Lukbhfcebmtm7HYEOKSPOKW 4-6 HOURS as needed for mdoi950604Iwmstjl 2024July 17, 2025 11:35amNeoplasm related pain Neoplasm related pain (acute) (chronic)Duloxetine 60 mg capsule,delayed release(DR/EC)Ffgdyvjhiutu31MEQVGpmzk05740Srogxja 2024 12:51pmNovember 2024 11:35amOxycodone-Acetaminophen 5-325 mg wihpvcBveazeyosmab7BLIEZGmrcd 8 hours as needed for xkpp26438Sewoboca 2023 3:31pmDecember 2023 1:37pmNeoplasm related pain Malignant neoplasm of left breast Neoplasm related pain (acute) (chronic) Malignant neoplasm of unspecified site of left female breastCetirizine 10 mg nhfagpWibiofdarrfi54FVJYTmdpsGpywoki 2024 12:00amApril 2024 8:45am Fluticasone Propionate 50 mcg/actuation spray,scvwkhgfpcTtwdfj1HNDXHNAUGTINNPU Twice dailyJanuary 2024 12:00amUnknownAmoxicillin-Pot Clavulanate 875-125 mg zlvevmJrevfryymdoa3CKSYACzdks aemfb70689Anftanr 2024 12:00amFebruary 2024 10:07amMetoprolol Succinate 50 mg Tablet Extended Release 24 HrActive 91QDTKFldaj658Queknrb 2024 12:00amUnknownLosartan 25 mg byhiuvMcorjp62THBC Fgkxi992Jihgfan 2024 12:00amUnknownOxycodone-Acetaminophen 10-325 mg cleayxVflbnutsactm6ISHNFANYSN 4-6 HOURS as needed for lvnl320487Ppnzt 2024December 19, 2024 12:34pmNeoplasm related pain Neoplasm related pain (acute) (chronic)Duloxetine 60 mg capsule,delayed release(DR/EC)Vsxjhtwknewn60UJOBUgdml98170Tbfon 2024 11:00pmJune 2024 11:54amOndansetron 8 mg tablet,vhynnrtyaofiprKdbqly6BNOCHqjsd 8 hours as needed for nausea and aefpocik267Lqepnspv 2024 11:35amUnknownOxycodone- Acetaminophen 10-325 mg gqpschUheazb0HQSQEYBYVY 4-6 HOURS as needed for ceme179 300November 2024Neoplasm related pain Neoplasm related pain (acute) (chronic)UnknownDuloxetine 60 mg capsule,delayed release(DR/EC)Lrmyyn70BTNSTzhon51651Dqdwxclr 2024 11:35amUnknown Sulfamethoxazole-Trimethoprim (Bactrim Ds) 800-160 mg xdedfoLyvlqyikpkao7TWYHX Twice ovdya71045Oreccwn 2023 11:00pmDecember 2023 3:10pmDuloxetine 30 mg capsule,delayed release(DR/EC)Dxovholfrqws94WKIRfsuqd75281Blyldocj 2024 12:12pmApril 2024 10:08amOxycodone-Acetaminophen 5-325 mg tablet Xpdrztydxdbd2ZMMRUJfgms 6 sslue0Dzukomxmu 2023 11:00pmDecember 2023 3:31pmProchlorperazine Maleate (Compazine) 10 mg hxvjyhVhalaz22JCHFGwwmy 6 hours as needed for nausea and ufmwlyqf123Wburowjum 2023 11:00pmUnknown Ondansetron 8 mg tablet,ibkzwengzjzsapYzolckwvjjcp4MHHRAkepf 8 hours as needed for nausea and prqxvxpp242Zwzlisenp 2023 11:00pmNovember 2024 11:35amOxycodone-Acetaminophen 5-325 mg boblluDlmvcdcuvgtk1SAUAQLwktt 8 hours as needed for svqy48081Qiysoirn 2024February 2024 2:48pmNeoplasm related pain Malignant neoplasm of left breast Neoplasm related pain (acute) (chronic) Malignant neoplasm of unspecified site of left female breastDuloxetine 30 mg capsule,delayed release(DR/EC)Ykxhtevicpce93WUQMmiepu50090Pfnmneuu 2024 12:00amFebruary 2024 12:13pmOxycodone-Acetaminophen 5-325 mg tablet Mqurblvsogxy9PGRCVXkwlg 6 hours as needed for vfdi174824Rzqdttlj 2024March 2024 2:12pmNeoplasm related pain Malignant neoplasm of left breast Neoplasm related pain (acute) (chronic) Malignant neoplasm of unspecified site of left female breastPotassium Chloride (Klor-Con M20) 20 mEq tablet,ER particles/wdemdeasKgsdej32EYTZRHplmv090Gpirm 2024 11:00pmUnknownFurosemide (Lasix) 20 mg dlcjadRfrodh20EZRLOvrnw565Mcbay 2024 11:00pmUnknownLoratadine (Claritin) 10 mg jbjibfMowtjn69GRDOYxwry Corazon 2024 11:00pmUnknownPantoprazole 20 mg tablet,delayed release (DR/EC) Bruzcbxyuxal00LOICIdrgh490Bezdq 2024 11:00pmJune 2024 12:59pm Alendronate (Fosamax) 70 mg uvxuqbYmdwmp78BDMXuvmtu ooxc859Pyuob 2024 11:00pmUnknownLetrozole (Femara) 2.5 mg tabletActive2.3JGDXWrgtk969Sirtq 2024 11:00pmUnknownLosartan-Hydrochlorothiazide 50-12.5 mg tabletDiscontinued1 TABPODailyJune 2023 11:00pmJanuary 2024 12:04pmAlprazolam 0.25 mg tabletActive0.25MGPOThree times daily as needed for anxietyJune 2023 11:00pmUnknownCyclobenzaprine 10 mg ndtbpxXghjnu06CFZRRuszvnk as needed for muscle spasmJune 2023 11:00pmUnknownGabapentin 300 mg irycnnfBmvhcq500UQEY Three times dailyJune 2023 11:00pmUnknownAspirin 81 mg tablet,delayed release (DR/EC)Agzkzl74AIFTSlqvzRhvi 2023 11:00pmOn Hold: hold as per oncology, restart per oncologyUnknownMometasone 0.1 % fvcmoGtkebqblzmfp0SMYPPF SDGRJNAUvstq918Aecr 2024 11:00pmNovember 2024 10:54amMalignant neoplasm of left breast Malignant neoplasm of unspecified site of left female breast Estrogen receptor positive status [ER+]Apply to radiation site, once a day, AFTER radiation treatments. Procedures Procedure Date Performed Status XR dexa axial skeleton February 13, 2024 12:06pm c ompleted CT chest w con June 18, 2024 11:08am compl eted Relevant Diagnostic Tests and/or Laboratory Data Laboratory Results Test Collection Date/Time Result Date/Time Result Interpretation Reference Range Result Comment Performing Site Corrected White Blood Count April 21, 2025 9:25am April 21, 2025 9:46am 8.2 10*3/uL 3.8-11.6F[facility] [id number] [address] [facility] 201[address]Tlsqfaomkyn WBC CountAugust 2024 9:25amAugu2024 9:46am8.2 10*3/uL3.8-11.6F[facility] [id number] [address] [facility] 938[address]Ecs Blood CountAugust 2024 9:252024 9:46am 3.72 10*6/uL3.60-5.00[facility] [id number] [address] [facility] 48398FdcwoydqdyZzcklp 2024 9:252024 9:46am12.6 g/dL11.8-15.4F[facility] [id number] [address] [facility] 93044XlwtuqqaztRsahga 2024 9:2024 9:46am37.6 %34.0-46.4F[facility] [id number] [address] [facility] 77480Hsrf Corpuscular VolumeAugust 2024 9:2024 9:11vu558.0 fLAbove high ewemyk29-260NpabxlgekHighland District Hospital [facility] [id number] [address] [facility] 32232Iodw Corpuscular HemoglobinAugust 2024 9:2024 9:46am33.9 pg24.7-34.3F[facility] [id number] [address] [facility] 73253Iqtf Corpuscular Hemoglobin ConcentAugust 2024 9:25am April 21, 2025 9:46am33.6 g/dL32.0-35.0[facility] [id number] [address] [facility] 71049Uqk Cell Distribution WidthAugust 2024 9:252024 9:46am15.0 %11.9-15.3F[facility] [id number] [address] [facility] 38063Wruqzbpe CountAugust 2024 9:2024 9:46am 205 10*3/zN250-587XtwdlvrbuHighland District Hospital [facility] [id number] [address] [facility] 21210Jyeb Platelet VolumeAugust 2024 9:2024 9:46am7.7 fL6.3-10.7F[facility] [id number] [address] [facility] 88741Csbzbvaksbj (%) (Auto)April 21, 2025 9:2024 9:46am70.3 %.[facility] [id number] [address] [facility] 00556Yazlpbwzfpn (%) (Auto)April 21, 2025 9:2024 9:46am14.3 %.[facility] [id number] [address] [facility] 78772Tzmmwhmgb (%) (Auto)April 21, 2025 9:252024 9:46am10.7 %.[facility] [id number] [address] [facility] 01067Pnlscbhsnui (%) (Auto)April 21, 2025 9:2024 9:46am4.1 %.[facility] [id number] [address] [facility] 07281Clcdrpcbd (%) (Auto)April 21, 2025 9:2024 9:46am0.6 %.[facility] [id number] [address] [facility] 59206Vnodxguxp RBC Relative Count (auto)April 21, 2025 9:25am April 21, 2025 9:46am0.0 /100{WBC}0-0.5F[facility] [id number] [address] [facility] 45683Pnwjtxjpols # (Auto)April 21, 2025 9:2024 9:46am5.8 10*3/uL1.8-7.7F[facility] [id number] [address] [facility] 71879Rtmagexxltr # (Auto)April 21, 2025 9:2024 9:46am1.2 10*3/uL1.00-4.8[facility] [id number] [address] [facility] 71690Nhctkaxib # (Auto)April 21, 2025 9:2024 9:46am0.9 10*3/uLAbove high normal0.0-0.8[facility] [id number] [address] [facility] 37209Vsfsicjxrbv # (Auto)April 21, 2025 9:2024 9:46am0.3 10*3/uL0.0-0.45[facility] [id number] [address] [facility] 09844Qvmewpgwr # (Auto)April 21, 2025 9:2024 9:46am0.1 10*3/uL0.0-0.2F[facility] [id number] [address] [facility] 71570Tcqtfzkxb NeutrophilsDecember 2023 1:15pmDecember , 2024 2:28pm68 %50-70[facility] [id number] [address] [facility] 72538Mqeb Neutrophils %September 03, 2024 1:15pmDecemb2023 2:28pm4 %0-5F[facility] [id number] [address] [facility] 68472Itbcyhzmdea %September 03, 2024 1:15pmDecemb2023 2:28pm12 %Below low ptqeor91-31BtegpopunHighland District Hospital [facility]tr [id number] [address] [facility] 37121Dxpqznkz LymphocytesDece2023 2:50pmDecember 2023 4:12pm7 %0-12[facility] [id number] [address] [facility] 31263Hxajhmzav %September 03, 2024 1:15pmDece2023 2:28pm 14 %Above high normal2-11[facility] [id number] [address] [facility] 55879Jqjzxkarqpmmad %August 21, 2024 2:50pmDecemb2023 4:12pm4 %Above high normal0-0[facility] [id number] [address] [facility] 02428Cxswlenrls %September 03, 2024 1:15pmDecemb2023 2:28pm1 %Above high normal0-0[facility] [id number] [address] [facility] 56654Phttsthqwxzad %September 03, 2024 1:15pmDecember 2023 2:28pm1 %Above high normal0-0[facility] [id number] [address] [facility] 28093Ppyamqukr Red Blood Cells/100 WBCDece2023 1:15pm September 03, 2024 2:28pm1 /100{WBC}Above high normal0-0[facility] [id number] [address] [facility] 51570Xts Blood Cell MorphologyJanuary 2024 2:08pmJanuary 2024 3:34pmN/AFireOhioHealth [facility] [id number] [address] [facility] 09641KjujviyzhxgmiIcjqbnt 2024 2:08pmJanuary 2024 3:34pm SlightHigh[facility] [id number] [address] [facility] 62224LmsodwmgxthwbaSrsyxsf 2024 2:08pmJanuary 2024 3:34pmModerateHighland District Hospital Ctr [id number] [address] [facility] 30874OjbnrskqstvqIpkgozc 2024 2:08pmJanuary 2024 3:34pm ModerateHighland District Hospital [facility] [id number] [address] [facility] 23169UvxplubouyTjbngwa 2024 2:08pmJanuary 2024 3:34pm [facility] [id number] [address] [facility] 93699AhrtxrjwjdwqWyfxzill 2023 2:50pmDecember 2023 4:12pmSlightHighland District Hospital [facility]tr [id number] [address] [facility] 44954Omprkmgrdrhqsi NeutrophilsNovember 2023 1:11pmNovember 2023 2:05pmSPro[facility] [id number] [address] [facility] 97054Syzzm GranulationDecember 2023 1:15pmDecember 2023 2:28pmSlightHighland District Hospital [facility]tr [id number] [address] [facility] 37302Whvsxurj EstimateJanuary 2024 2:08pmJanuary 2024 3:34pmNormalNormalHighland District Hospital [facility] [id number] [address] [facility] 48934Plmso PlateletsDecember 2023 10:05amDecember 2023 11:16am1 /100{WBC}[facility] [id number] [address] [facility] 06152Kiltyfeu Morphology CommentJanuary 2024 2:08pmJanuary 2024 3:34pmNormalNormalHighland District Hospital [facility] [id number] [address] [facility] 43654Jkucale LevelAugust 2024 10:2024 10:56am 102 mg/dLAbove high ilqjpu22-215CCX recommended reference rangeRandom Glucose Reference Range is dependent on time and content of last meal. Glucose of more than 200 mg/dL in a nonstressed, ambulatory subject supports the diagnosisof Diabetes Mellitus.[facility] [id number] [address] [facility] 86374Ubbiw Urea NitrogenAugust 2024 10:2024 10:56am24 mg/dL7-25[facility] [id number] [address] [facility] 68014PbhlwfxkjbGjaqtu 27th, 2025 10:2024 10:56am 1.14 mg/dL0.60-1.20[facility] [id number] [address] [facility] 98889Ifduzafhz GFR (CKD-EPI)April 30, 2025 10:2024 10:56am54.093 mL/MinHighland District Hospital Ctr [id number] [address] [facility] 03124Ihkezu LevelAugust 2024 10:2024 10:56am 135 mmol/LBelow low fkmjzi331-518WzdbdhgofHighland District Hospital [facility] [id number] [address] [facility] 66136Zbmanutgt LevelAugust 2024 10:2024 10:56am4.2 mmol/L3.5-5.1F[facility] [id number] [address] [facility] 02812Ysobdkbf LevelAugust 2024 10:2024 10:56am99 mmol/I98-214HvzezckvkHighland District Hospital [facility] [id number] [address] [place] [id number] Dioxide LevelAugust 2024 10:2024 10:56am31.1 mmol/LAbove high hnghul03.0-31.0[facility] [id number] [address] [facility] 41540Bbmdd GapAugust 2024 10:2024 10:56am9.1 mEq/L6.0-15.0[facility] [id number] [address] [facility] 23123Cqcxmjx LevelAugust 2024 10:2024 10:56am 9.8 mg/dL8.6-10.3F[facility] [id number] [address] [facility] 78006Aybqr ProteinAugust 2024 10:2024 10:56am 6.7 g/dL6.4-8.9[facility] [id number] [address] [facility] 33294KvdqornGrodrr 2024 10:2024 10:56am4.2 g/dL3.5-5.7F[facility] [id number] [address] [facility] 49927MzbyblnwQwjadn 2024 10:2024 10:56am2.5 g/dLHighland District Hospital Ctr [id number] [address] [facility] 35850Qcsnagc/Globulin RatioAugust 2024 10:2024 10:56am1.7F[facility] [id number] [address] [facility] 49198Obuqk BilirubinAugust 2024 10:2024 10:56am0.4 mg/dL0.3-1.0[facility] [id number] [address] [facility] 13460Cixxbflyu Amino Transf (AST/SGOT)April 30, 2025 10:20am April 30, 2025 10:56am17 U/A65-99AiuknmuqhHighland District Hospital Ctr [id number] [address] [facility] 58526Wbuoklm Aminotransferase (ALT/SGPT)April 30, 2025 10:20am April 30, 2025 10:56am10 U/L7-52[facility] [id number] [address] [facility] 80114Vzjmmbpf PhosphataseAugust 2024 10:20amAugust 2024 10:56am60 U/K68-772VtonxrgpiHighland District Hospital [facility]tr [id number] [address] [facility] 43846Akoc AcidApril 2024 1:00pmApril 2024 10:47am4.8 mg/dL 2.3-6.6FUniversity [facility] [id number] [address] [facility] 60303Udpe LevelFebruary 2024 1:30pmFebruary 2024 8:48am 81 ug/oL50-575LzyxwbtuoHighland District Hospital Ctr [id number] [address] [facility] 60085Xytud Iron Binding CapacityFebruary 2024 1:30pmFebruary 2024 8:10sw442 ug/pT935-539HrzfwsfauHighland District Hospital [facility]tr [id number] [address] [facility] 08290Tfdf SaturationFebruary 2024 1:30pmFebruary 2024 8:48am25.2 %20-50[facility] [id number] [address] [facility] 12271YjeqezukgrqYgnblwzi 2024 1:30pmFebruary 2024 8:48am 229 mg/eA665-150TrsfcdlsiHighland District Hospital [facility] [id number] [address] [facility] 24568PmndgswsFmccnyjj 2024 1:30pmFebruary 2024 9:07am 459.1 ng/mLAbove high cqaove71.0-306.8[facility] [id number] [address] [facility] 66418Mlmtxyyd Creatinine Clearance (ChemAugust 2024 10:20am April 30, 2025 10:56am43.40[facility] [id number] [address] [place] [address] 97200PX 27.29June 2023 1:06pmJune 2023 8:10am13.6 U/mL 0.0-38.6[employer] Immunochemiluminometric Methodology (ICMA)Values obtained with different assay methods or kits cannotbe used interchangeably. Results cannot be interpreted asabsolute evidence of the presence or absence of malignantdisease.Performed at: [facility] [employer] [id number] Director: Anthony Keane PhD, Phone: [phone] 15-3 AntigenJune 2023 1:06pmJune 2023 8:38am9.7 U/mL 0.0-25.0Roche Diagnostics Electrochemiluminescence Immunoassay(ECLIA)Values obtained with different assay methods or kits cannotbe used interchangeably. Results cannot be interpreted asabsolute evidence of the presence or absence of malignantdisease.Performed at: [facility] [id number] Director: Anthony Keane PhD, Phone: [phone] Diagnostic Imaging Reports Author Jayden Cabral [facility] MemorialAuthoredOcthighlands ar[facility] 2023 4:41pmReportDictated Date/TimeDictated ByStatusRadiology ReportOctober 2023 4:41pmJosebridgett Cabral Jr DOcompPomerene Hospital Main [place] [address] [place], [place] [id number] CT Scan Report Signed Patient: Adelina Mir MR#: [id number] : 1960 Acct:[id number] Age/Sex: 63 / F ADM Date: 4 Loc: [facility]: [facility] Att[facility] Dr: Kush Glez MD Copies to: Kush Glez MD~ Ordering Provider: Kush Glez MD Date of Service: 06/18/24 CT/CT chest w con: positive lymph nodes metastatic CT CHEST WITH INTRAVENOUS CONTRAST: CLINICAL HISTORY: Staging left breast cancer. COMPARISON: None TECHNIQUE: Spiral images were obtained through the chest following intravenous administration of IV contrast. This CT exam was performed using one or more following dose reduction techniques: Automated exposure control, adjustment of the mA and/or kV according to patient size, or use of iterative reconstruction technique. FINDINGS: Mediastinum:Thoracic aorta demonstrates moderate calcification and soft plaquing without aneurysm. Pulmonary trunk appears nondilated. No pleural effusion. No lymphadenopathy. The esophagus is grossly unremarkable. Lungs:Emphysema. No consolidation pneumothorax or pleural effusion. No suspicious pulmonary nodule or mass. Abd:Left adrenal adenoma. No acute findings. Soft tissues/Bones: Postoperative/posttreatment changes involving the left breast. There appears to be a fluid collection with an air-fluid level seen in the region of the left breast measuring 6.5 x 2.4 x 2.9 cm. No axillary or subpectoral lymphadenopathy. Osseous structures demonstrate degenerative change. No aggressive bony lesions. CT/CT chest w con IMPRESSION: No evidence of metastatic disease seen within the chest. Postoperative/post treatment changes involving the left breast with fluid collec tion with air-fluid level seen measuring 6.5 x 2.4 x 2.9 cm. Abscess cannot BE excluded. Impression dictated by: Jayden Cabral Jr., DLucilaOLucila06/18/2024 4:45 PM Dictation Location: [place] [address] Transcribed By: [facility] 06/18/241644 Dictated By: Jayden Cabral Jr, DO 06/18/241640 Signed By: <Electronically signed by Jayden Cabral Jr, DO in OV> 06/18/241644 Vital Signs Vital Reading Result Reference Range Collection Date/Time Weight 54.43 kg April 23, 2025 10:30amBody Nvijtuyaxfn54 [degF]97.6-99.0August 2024 10:30amHeart Rate63 /ctb34-924Gizqeu 20th, 2025 10:30amRespiratory rate20 /min 12-24Augus2024 10:30amOxygen saturation by Pulse lchaemva55 %95-100 April 23, 2025 10:30amBP Uobpvofw879 mm[Hg]100-140August 2024 10:30amBP Ukwfvqojm95 mm[Hg]60-100August 2024 10:55ssOiwmgp49 [in_i]February 04, 2025 10:07hiVpmwjf99.43 kgAugust 2024 10:30amBody Abwyqfxxiyu60.0 [degF] 97.6-99.0April 2024 9:25amHeart Rate68 /vld00-597Alwmw 23rd, 2025 9:25am Respiratory rate16 /ehk45-48Xomtb 23rd, 2025 9:25amOxygen saturation by Pulse %95-100April 2024 9:25amBP Stdmtqel537 mm[Hg]100-140April 2024 9:25amBP Qohhpzckt12 mm[Hg]60-100April 2024 9:25am Advance Directives Advance Directive Response Recorded Date/ Time Advance Directives No February 04 12:52pm Insurance Providers Guarantor [facility] Address [address] [place] [id number] Info.Home Phone: Coverage Status Update:2024 Payer Group Member ID Coverage Type Subscriber Relationship to Subscriber Effective Date Expiration Date Linda HESTER/TONIO Id: [id number]: [id number] Encounters Encounter Location(s) Arrival/Admit Date Discharge/Departure Date Discharge/Departure Disposition Provider(s) Departed [facility] April 23, 2025 7:32am April 23, 2025 7:33am Discharged to home care or self care (routine discharge) Travis Kang APRN Departed Physician/ Provider Office Visit -[facility] April 23, 2025 11:06am April 23, 2025 12:18pm Discharged to home care or self care (routine discharge) Kush Glez MD Departed [facility] July 17, 2025 8:48am July 17, 2025 8:49am Discharged to home care or self care (routine discharge) Travis Kang APRN Departed Physician/ Provider Office Visit -[facility] [place] [facility] July 17, 2025 10:47am July 17, 2025 12:45pm Discharged to home care or self care (routine discharge) Cynthia Lucian Clayton APRN Registered [facility] -[facility] Acute July 10:48am Mhd Derek Glez MD Recent Diagnosis Onset Date Admit Date Breast cancer, left Unknown April 23, 2025 7:32am Neuropathy Unknown April 23 7:32am Breast cancer, left Unknown April 23, 2025 11:06am Osteopenia Unknown April 23 11:06am Breast cancer, left Unknown July 8:48am Cancer associated pain Unknown July 17, 2025 8:48am Nausea Unknown July 17, 8:48am Neuropathy Unknown July 17 8:48am Breast cancer, left Unknown July 10:47am Assessments Diagnosis Onset Date Resolution Status Admit Date Breast cancer, left acuteAugust 2024 7:32amNeuropathyacuteAugust 2024 7:32amBreast cancer, leftacuteAugust 2024 11:06amOsteopeniainactiveAugust 2024 11:06amBreast cancer, leftacuteNovember 2024 8:48amCancer associated pain acuteJuly 17, 2025 8:48amNauseaacuteNovember 2024 8:48amNeuropathy acuteNov2024 8:48amBreast cancer, leftacuteNovember 2024 10:47am Plan of Treatment Author Cynthia Matilde [facility] 2024 11:27am Follow-up as needed Assessment: 64-year-old female with vZ8sA3i invasive ductal carcinoma of the left breast, ER/OK positive HER2 negative. She is status post [...] nipple uninvolved by DCIS or invasive carcinoma. [place] lymph node biopsy showed 3 of 8 lymph nodes positive with extranodal extension. Patient has completed dose dense AC plus Taxol and presents to discuss postmastectomy radiation. March 2025 she completed postmastectomy radiation 42.5 Fraser in 16 fractions delivered daily. Patient is now fully recovered from radiation, skin changes have resolved. She continues endocrine therapy under medical oncology and will follow-up with them in October 2025. We will now follow-up as needed and she is aware she may call in the future with any concerns. Author Kush SilvaNhung [facility] MemorialAuthoredAugust 2024 11:13amBased on the biopsy done on 01/10/2024 it reveals pT1c, pNX, ER positive, OK positive, HER2/pat negative (1+), no DCIS, tumor size of the invasive ductal carcinoma is 1.7 cm at least with positive superior margin and no lymphovascular invasion detected. No lymph nodes included in the biopsy. Patient was referred for further surgical resection with bilateral mastectomy by Dr. Chaney and Dr. Bustamante for reconstructive surgery. - [employer] gene testing done 03/01/24 was negative. -Bone density scan done on 02/15/2024 revealed osteopenia with a T-score of -1.4 in the left femoral neck. - Oncotype Dx score was done on the biopsy tissue based on unknown gwen status at that time revealed: - If she is node-negative: Recurrence score of 5 with distant recurrence risk at 9 years of 3% with endocrine therapy alone with less than 1% benefit [...] skin sparing with immediate reconstruction with tissue recycling operator by Dr. Bustamante. Surgical path from surgery [...] with mucinous features grade 2, 1.4 cm in greatest dimension. Ductal carcinoma in situ low-grade cribriform Lymphovascular invasion present Focal invasive carcinoma is present within 1 mm from inked inferior margin. Resection margins negative for DCIS with 5 mm from closest deep margin. Fibrocystic changes characterized by apocrine metaplasia and usual ductal hyperplasia with adenosis and microcalcification. Skin and nipple uninvolved by DCIS or invasive cancer Stage IIA, TNM stage is pT1c, pN1a. Number of lymph nodes with macrometastasis 3 and number of lymph nodes with isolated tumor cells 0 and number of lymph nodes with micrometastasis 0. Extranodal extension is present. ER positive over 90%, OK +80%, HER2 negative (1+), Ki-67 3% Treatment plan: After discussing the above findings from the surgical path with her and considering that she has extranodal extension of 3 out of 6 lymph nodes and lymphovascular invasion positive with 1.4 cm tumor that is grade 2, I recommended adjuvant chemo using dose dense AC followed by T followed by adjuvant radiation followed by adjuvant endocrine therapy. She agreed [...] adjuvant ddAC scheduled on 08/22/24. She had mild fatigue and had nausea for 6 days after cycle 2 of dose dense AC but not vomiting and no chest pain or shortness of breath or leg edema or [...] okay for continued treatment. She will follow-up in [address] Bales with plans of [...] to start her week 1 of adjuvant weekly Taxol prior to her recent [...] which she started taking since she completed her adjuvant radiation from 02/04/25 completed on 03/12/25. - [...] gabapentin for neuropathy of the feet which are helping a lot. Continue B1/B6/B12 50/50/500 mg for neuropathy history. Asked her to try the magnesium znuc-vkb-rbguefe once daily for the licorice for couple weeks see if it improves then to continue it if not to stop it and check with the primary care physician for the leg cramps etiologies. Continue calcium and vit D [...] to consider being Losartan related and even US kidneys to rule out kidney stones or hydronephrosis. RTC in 6 months with CMP prior. Future Tests Future scheduled test information is unavailable Pending Tests Test Name Ordered Date Scheduled Date Comprehensive Metabolic Panel April 23, 2025 11:11am 6 Months MM screening mammo RT w/CAD April 23, 2025 11 :11am 3 Days Future Visits Future appointment information is unavailable Future Procedures Procedure Name Ordered Date Scheduled Date Patient Navigator Distress Screening October 16, 2024 1:51pm October 16, 2024 1:51pm ANC>=1500 September 11, 2024 1:56pm Februar 2024 12:00am ANC>800 September 11, 2024 1:56pm Februar y 2024 12:00am ANC>800 September 11, 2024 1:56pm November 022024 11:00pm ANC>800 September 11, 2024 1:56pm November 022024 11:00pm ANC>800 September 11, 2024 1:56pm December 032024 11:00pm ANC>800 September 11, 2024 1:56pm 2024 12:00am ANC>800 September 11, 2024 1:56pm November 062024 12:00am ANC>800 September 11, 2024 1:56pm November 032024 11:00pm ANC>800 September 11, 2024 1:56pm December 102024 11:00pm ANC>800 September 11, 2024 1:56pm December 032024 11:00pm ANC>800 September 11, 2024 1:56pm December 042024 11:00pm ANC>800 September 11, 2024 1:56pm December 042024 11:00pm If ANC<=800 And Platelets<=50,000 Omit Dose September 11, 2024 1:56pm October 23, 2024 12:00a m If ANC<=800 And Platelets<=50,000 Omit Dose September 11, 2024 1:56pm October 30, 2024 12:00a m If ANC<=800 And Platelets<=50,000 Omit Dose September 11, 2024 1:56pm November 19, 2024 11:00pm If ANC<=800 And Platelets<=50,000 Omit Dose September 11, 2024 1:56pm December 03, 2024 11:00pm If ANC<=800 And Platelets<=50,000 Omit Dose September 11, 2024 1:56pm December 10, 2024 11:00pm If ANC<=800 And Platelets<=50,000 Omit Dose September 11, 2024 1:56pm November 06, 2024 12:00am If ANC<=800 And Platelets<=50,000 Omit Dose September 11, 2024 1:56pm November 12, 2024 11:00pm If ANC<=800 And Platelets<=50,000 Omit Dose September 11, 2024 1:56pm November 26, 2024 11:00pm If ANC<=800 And Platelets<=50,000 Omit Dose September 11, 2024 1:56pm December 18, 2024 11:00pm If ANC<=800 And Platelets<=50,000 Omit Dose September 11, 2024 1:56pm December 24, 2024 11:00pm If ANC<=800 And Platelets<=50,000 Omit Dose September 11, 2024 1:56pm December 31, 2024 11:00pm Hold & Call Ordering Physici an if Pt Does Not Meet Criteria September 11, 2024 1:56pm October 23, 2024 12:00am Hold & Call Ordering Physici an if Pt Does Not Meet Criteria September 11, 2024 1:56pm November 06, 2024 12:00am Hold & Call Ordering Physici an if Pt Does Not Meet Criteria September 11, 2024 1:56pm November 26, 2024 11:00pm Hold & Call Ordering Physici an if Pt Does Not Meet Criteria September 11, 2024 1:56pm December 18, 2024 11:00pm Hold & Call Ordering Physici an if Pt Does Not Meet Criteria September 11, 2024 1:56pm December 24, 2024 11:00pm Hold & Call Ordering Physici an if Pt Does Not Meet Criteria September 11, 2024 1:56pm October 16, 2024 12:00am Hold & Call Ordering Physici an if Pt Does Not Meet Criteria September 11, 2024 1:56pm October 30, 2024 12:00am Hold & Call Ordering Physici an if Pt Does Not Meet Criteria September 11, 2024 1:56pm November 12, 2024 11:00pm Hold & Call Ordering Physici an if Pt Does Not Meet Criteria September 11, 2024 1:56pm November 19, 2024 11:00pm Hold & Call Ordering Physici an if Pt Does Not Meet Criteria September 11, 2024 1:56pm December 03, 2024 11:00pm Hold & Call Ordering Physici an if Pt Does Not Meet Criteria September 11, 2024 1:56pm December 10, 2024 11:00pm Hold & Call Ordering Physici an if Pt Does Not Meet Criteria September 11, 2024 1:56pm December 31, 2024 11:00pm Apply O2 via Nasal Cannula 4 L to Maintain SpO2 of >=90% September 11, 2024 1:56pm October 16, 2024 12:00am Apply O2 via Nasal Cannula 4 L to Maintain SpO2 of >=90% September 11, 2024 1:56pm November 19, 2024 11:00pm Apply O2 via Nasal Cannula 4 L to Maintain SpO2 of >=90% September 11, 2024 1:56pm November 26, 2024 11:00pm Apply O2 via Nasal Cannula 4 L to Maintain SpO2 of >=90% September 11, 2024 1:56pm December 10, 2024 11:00pm Apply O2 via Nasal Cannula 4 L to Maintain SpO2 of >=90% September 11, 2024 1:56pm December 31, 2024 11:00pm Apply O2 via Nasal Cannula 4 L to Maintain SpO2 of >=90% September 11, 2024 1:56pm October 23, 2024 12:00am Apply O2 via Nasal Cannula 4 L to Maintain SpO2 of >=90% September 11, 2024 1:56pm October 30, 2024 12:00am Apply O2 via Nasal Cannula 4 L to Maintain SpO2 of >=90% September 11, 2024 1:56pm November 06, 2024 12:00am Apply O2 via Nasal Cannula 4 L to Maintain SpO2 of >=90% September 11, 2024 1:56pm November 12, 2024 11:00pm Apply O2 via Nasal Cannula 4 L to Maintain SpO2 of >=90% September 11, 2024 1:56pm December 03, 2024 11:00pm Apply O2 via Nasal Cannula 4 L to Maintain SpO2 of >=90% September 11, 2024 1:56pm December 18, 2024 11:00pm Apply O2 via Nasal Cannula 4 L to Maintain SpO2 of >=90% September 11, 2024 1:56pm December 24, 2024 11:00pm Orders Panel Function Communication Order July 25, 2024 9:29am July 25, 2024 9:29am Orders Panel Function Communication Order August 06, 2024 3:40pm August 06, 2024 3:40pm Orders Panel Function Communication Order September 18, 2024 4:31pm September 18, 2024 4:31pm Orders Panel Function Communication Order September 23, 2024 3:16pm September 23, 2024 3:16pm Orders Panel Function Communication Order September 23, 2024 3:17pm September 23, 2024 3:17pm Orders Panel Function Communication Order October 10, 2024 2:10pm October 10, 2024 2:10pm Orders Panel Function Communication Order October 23, 2024 10:44am October 23, 2024 10:44am Orders Panel Function Communication Order December 18, 2024 2:30pm December 18, 2024 2:30pm Orders Panel Function Communication Order September 23, 2024 3:13pm September 23, 2024 3:13pm Orders Panel Function Communication Order October 16, 2024 11:07am October 16, 2024 11:07am Platelets>=100,000 September 11, 2024 1:56pm Chelsea toro 2024 12:00am Future Medications Future medication information is unavailable Patient Instructions Patient instructions are unavailable Goals Acute Goals Author Authored Date Maintain/increase activity l evels * Understands factors that may lead to activity intolerance * Helps perform self care activities * Maintains maximum range of motion * Increase/regain muscle mass and strength * Maintains VS WNL during activity * Maintain intact skin integrity Updated: [facility] 2023 3:21pm
--- NOTE | 2025-07-23 | OP_ITS ---
OPERATION DATE: 07/23/2025 PREOPERATIVE DIAGNOSIS: Infusaport no longer required. POSTOPERATIVE DIAGNOSIS: Infusaport no longer required. PROCEDURE: Removal of right external jugular Infusaport. SURGEON: Roshan Chaney M.D. ANESTHESIA: Monitored anesthesia care, as well as local with 0.5% Marcaine plain. ESTIMATED BLOOD LOSS: Less than 5 mL. INDICATIONS AND CONSENT: Patient is a 64-year-old female, with history of left breast cancer. She completed chemotherapy and no longer requires her right external jugular Infusaport. Removal has been requested by Oncology and the patient. Indications, risks, benefits, alternatives of proceeding were explained extensively to the patient, including the risks of bleeding, infection, scarring, pain, catheter fracture, need for further surgery. All of her questions were answered. Informed consent was obtained. PROCEDURE: Patient brought to the operating room, placed in the supine position. Monitored anesthesia care was provided. She was prepped and draped in the usual sterile fashion. The previous incision on the right chest wall port was anesthetized with 0.5% Marcaine, as were the deeper structures in the area around the port. The old incision was opened with the #15 blade and carried down through subcutaneous tissue, using sharp dissection. The port was freed up from the scar tissue. The Prolene sutures were removed. The tract leading up to the external jugular vein was then isolated and the port was removed. The tract was then suture ligated using 3-0 Monocryl suture. The scar capsule was then excised using electrocautery. There was good hemostasis. The subcutaneous tissue was re-approximated with interrupted 3-0 Monocryl suture. The skin was then closed with a running 4-0 subcuticular Monocryl suture and skin glue. A sterile pressure dressing was applied. Sponge and needle counts were correct x2 per nursing personnel. Patient tolerated procedure well, was sent to recovery room in good condition. CC: Jaylyn Jurado
--- OUTSIDE RECORDS SUMMARY | 2025-07-23 08:17 | XMS_ITS | CCD ---
Author Organization [facility] Team Providers Care Data Services Developer Name Role Phone DR ESTELA KRISHNAN Attending Unavailable PERLA, DR ESTELA Jonas Consulting Unavailable PERLA, DR ESTELA Jonas Primary Care Unavailable PERLA, DR ESTELA Jonas Admitting Unavailable Michael Holley. Primary Care Physician [phone] MD Estela Krishnan Primary Care Provider [phone] MD Roshan Braun Attending Provider MD Michael Holley Primary Care Provider MD Newton tara Reed Attending Provider MD Roshan Braun Referring Provider [phone] Roshan BRAUN Admitting Unavailable NILL, Roshan Horner Attending Unavailable NILL, Roshan R Referring Unavailable NILL, Roshan R Attending Unavailable NILL, Roshan R Attending Unavailable Michael Holley Attending Unavailable Michael Holley Attending Unavailable Michael Holley Attending Unavailable Michael Holley Attending Unavailable Michael Holley Attending Unavailable NILL, oRshan R Attending Unavailable NILL, Roshan R Attending [...] Referring Provider MD Miquel Bustamante Attending Provider [phone] NILL, Roshan R Referring Unavailable NILL, [...] Unavailable Michael Holley MD Primary Care Provider [place] Elda SELBY Attending Provider Kush Glez MD Attending Provider Roshan Braun MD Referring Provider Mode Ellsworth DO Emergency Provider Joe Garcia MD Admit Provider Joe Garcia MD Attending Provider [phone] Roshan Reynoso MD Other Provider Josseline Simpson MD Other Provider Frank Paez DO Other Provider Raisa Enriquez MD Other Provider Dorothy Bone MD Other Provider Demarcus Tiff Other Provider Cynthia Clayton APRN Other Provider Elda De Leon Other Provider Danielle Perdomo Other Provider Newton PRATT, Kush Reed Other Provider Vernell Pierce APRN Other Provider Kami Lara Other Provider Jair Weber MD Other Provider Estela Krishnan MD Primary Care Provider Danielle Somers Other Provider Kaim Moody Other Provider Newton PRATT, Kush Reed Attending Provider Roshan Braun MD Referring Provider Roshan Reynoso MD Attending Provider Michael Holley MD Primary Care Provider [phone] Newton PRATT, Kush Reed Attending Provider [phone] Roshan Braun MD Referring Provider Elda Hurtado APRN Attending Provider [phone] Newton PRATT, Kush Reed Attending Provider Roshan Braun MD Referring Provider Newton PRATT, Kush Reed Attending Provider Roshan Braun MD Referring Provider Michael Holley MD Primary Care Provider [phone] Mode Ellsworth DO Emergency Provider Joe Garcia MD Admit Provider [phone] Joe Garcia MD Attending Provider Roshan Reynoso MD Other Provider Calvin PRATT, Josseline Other Provider Frank Paez DO Other Provider Mina PRATT, Raisa Other Provider Lizandro PRATT, Dorothy Other Provider Tiff Tracy Other Provider Cynthia Clayton APRN Other Provider [phone] Elda De Leon Other Provider Danielle Somers Other Provider Newton PRATT, Kush Reed Other Provider Vernell Pierce APRN Other Provider Kami Moody Other Provider Tia PRATT, Jair Other Provider Angeles PRATT, Roshan Attending Provider Elda Hurtado APRN Attending Provider [phone] Newton PRATT, Kush Reed Attending Provider [phone] Roshan Braun MD Referring Provider Newton PRATT, Kush Reed Attending Provider [phone] Aparna PRATT, Roshan Horner Referring Provider Michael Holley MD Primary Care Provider Newton PRATT, Kuhs Reed Attending Provider Roshan Braun MD Referring Provider Aparna PRATT, Roshan Horner Referring Provider Newton PRATT, Kush Reed Attending Provider Roshan Braun MD Referring Provider Newton PRATT, Kush Reed Attending Provider Michael Holley MD Primary Care Provider Elda Hurtado APRN Attending Provider [phone] Roshan Braun MD Referring Provider Kush Glez MD Attending Provider Michael Holley MD Primary Care Provider Newton PRATT, Kush Reed Attending Provider [phone] Elda Hurtado APRN Attending Provider Elda Hurtado APRN Other Provider Linnette Elizabeth MD Attending Provider Kush Glez MD Referring Provider [phone] Roshan Braun MD Referring Provider Linnette Elizabeth MD Other Provider [phone] Michael Holley MD Primary Care Provider Elda [...] Hurtado Admitting Unavailable Elda Hurtado Attending Unavailable Elda Hurtado Admitting Unavailable Ross, Michael E Primary Care Unavailable Ross, Michael E Primary Care Unavailable GenesisRoyalElda M Attending Unavailable Genesis, Elda M Admitting Unavailable Ross, Michael E Primary Care Unavailable Genesis, Elda M Admitting Unavailable Genesis, Elda M Attending Unavailable Ross, Michael E Primary Care Unavailable Genesis, Edla M Admitting Unavailable GenesisRoyalElda M Attending Unavailable Ross, Michael E Primary Care Unavailable Genesis, Elda M Attending Unavailable Genesis, Elda M Admitting Unavailable Angeles, Roshan Admitting Unavailable Angeles, Roshan Attending Unavailable Ross, Michael E Primary Care Unavailable Angeles, Roshan Attending Unavailable Ross, Michael E Primary Care Unavailable Roshan Reynoso Admitting Unavailable Ross, Mihcael E Primary Care Unavailable Miquel Bustamante Attending [...] Unavailable Ross, Michael E Primary Care Unavailable Elda Hurtado M Attending Unavailable Genesis, Elda M Admitting Unavailable Ross, Michael E Primary Care Unavailable GenesisRoyal foyine M Attending Unavailable Genesis, Elda M Admitting Unavailable Ross, Michael E Primary Care Unavailable Royal Hurtadoine M Attending Unavailable Royal Hurtadoine M Admitting Unavailable Kishan Michael E. Attending Unavailable Michael Holley E. Attending Unavailable Michael Holley E. Attending Unavailable Kishan Michael E. Admitting Unavailable Kishan Michael E. Attending Unavailable Roshan BRAUN Attending Unavailable Roshan BRAUN Attending Unavailable Juan J Caballero Primary Care Physician Michael Holley. Attending Unavailable Ross, Michael E. Attending Unavailable Michael Holley Attending Unavailable MICHAEL REEDER Attending Unavailable Ilana-Kush Hooker Yaaaliyah Admitting Unavailabl e Kush Glez Attending Unavailabl e Juan J Caballero Admitting Unavailable BobJuan J so Attending Unavailable Michael Holley Admitting Unavailable NILRoshan Britton R Attending Unavailable Roshan BRAUN R Attending Unavailable Michael Holley Attending Unavailable MICHAEL REEDER A Attending Unavailable Michael Holley Attending Unavailable Michael Holley Attending Unavailable Michael Holley Attending Unavailable Michael Holley Attending Unavailable LILLIMICHAEL RIVERA A Attending Unavailable MICHAEL REEDER A Attending Unavailable Bobjudah, Juan J Vincent Attending Unavailable BobJuan J so LLucila Admitting Unavailable BobbsJuan J Attending Unavailable Jaun J Caballero Attending Unavailable Allergies Allergy ClassificationReported Allergen(s)Allergy TypeDate of OnsetReaction(s) FacilityAdrenergic Agonists (1 source)PseudoephedrineDrug Omtlkyn46-00-4214Udzhjwh ReactionWhite HospitalCorticosteroids (1 source)CorticosteroidsDrug Zqztxje99-57-8237Jkdjray ReactionWhite Hospitalmetaxalone (1 source)metaxaloneDrug Gdyppty75-76-2303Idhvpec ReactionWhite Hospital (1 source)HydrocortisoneDrug Wmsehzw53-42-0590MklSt. [facility] (1 source)methylPREDNISoloneDrug Wepypsk29-58-5298Vbv [facility] Repository (1 source)prednisoLONEDrug Nofgkjc24-61-2890Qex [facility] Rep[facility] (1 source)predniSONEDrug Hooggce74-54-0610Tei [facility] Repository (1 source)Decon-ADrug allergy (disorder)65-77-5964Okl [facility] (1 source)Decon-GDrug allergy (disorder)34-33-6905Myv [facility] (20 sources)metaxalone; Translations: [metaxalone]Drug Bbzneeu26-32-4085Solqpei (qualifier value)[facility] (20 sources)Pseudoephedrine; Translations: [pseudoephedrine]Drug Allergy 95-95-3079Dltwcmu (qualifier value), [facility] (20 sources)Corticosteroids; Translations: [corticosteroids]Propensity to adverse reactions to ppkg72-68-6928Uiroeigdoxf (disorder), AnaphylaxisGeneral Surgery Hector (20 sources)CorticosteroidsAllergy to jvgddexps01-87-9307Cmpalhi Reaction [facility] (2 sources)metaxaloneDrug Xxfzfar35-73-7287QsyyftySWPC Healthcare Medications Current Medications MedicationDrug Class(es)DatesSig (Normalized)Sig (Original)alendronic acid 70 mg effervescent oral tablet (9 sources)BisphosphonateStart: 56-55-8398wuty 1 mg by mouth every week alendronate 70 mg oral tablet, effervescent mg tab(s), Oral, qWeek, Refills(s) 0 Start Date: 06/16/25 Status: Ordered Repeat number: 1Start: 51-09-1898ftms 1 tablet by mouth every weekALPRAZolam 0.25 mg oral tablet (20 sources)BenzodiazepineStart: 28-82-2943bxvyhvyevj 0.25 mg Tab See Instructions, 1 tab tid prn, # 90 tab(s), Refills(s) 0, Pharmacy: [facility], 165.5, cm, 03/25/25 12:55:00 EDT, Height/Length Dosing, 55.5, kg, 03/25/25 12:55:00 EDT, Weight Dosing Start Date: 03/25/25 Status: Ordered Quantity: 90.0 Unit: tab(s) Repeat number: 1 Indications: Anxiety disorder, unspecified;Calcium (1 source)Phosphate Binder, CalciumStart: 94-55-7093uvkhswv calcium Start Date: 06/16/25 Status: Ordered Repeat number: 1Cannabinoids (medical cannabis) (2 sources)Cannabinoids (medical cannabis) Medical Marijuana Active cyclobenzaprine hydrochloride 10 mg oral tablet (20 sources)Muscle RelaxantStart: 46-95-9099jacq 1 tablet by mouth at bedtime as needed for muscle spasmscyclobenzaprine 10 mg Tab 10 mg = 1 tab(s), Oral, Bedtime, PRN for spasm, # 14 tab(s), Refills(s) 0, Pharmacy: [facility], 165.5, cm, 10/22/24 16:03:00 EST, Height/Length Dosing, 60.8, kg, 10/22/24 16:03:00 EST, Weight Dosing Start Date: 12/02/24 Status: Ordered Quantity: 14.0 Unit: tab(s)Repeat number: 1dronabinol 10 mg oral capsule (2 sources)Cannabinoidtake 1 capsule by mouth every twelve hoursdronabinol (Marinol) 10 MG capsule 1 capsule every 12 (twelve) hours. Activefluconazole 150 mg oral tablet (1 source)Azole AntifungalStart: 87-77-0517gewc 1 tablet by mouth onceDiflucan 150 mg Tab 150 mg = 1 tab(s), Oral, Once, # 1 tab(s), Refills(s) 0, Pharmacy: [facility], 170.2, cm, 08/09/23 15:59:00 EST, Height/Length Dosing, 69.3, kg, 08/09/23 15:59:00 EST, Weight Dosing Start Date: 08/09/23 Status: Orderedfluticasone propionate 0.05 mg/actuat metered dose nasal spray (20 sources)CorticosteroidStart: 33-99-4876Wbtybxk 0.05 mg/inh [place] 1 spray(s), Nasal, Daily, 15.8 mL, Refill(s) 2, [facility], 160.5, cm, 06/16/25 14:45:00 EDT, Height/Length Dosing, 52.3, kg, 06/16/25 15:11:00 EDT, Weight Dosing Start Date: 06/16/25 Status: Ordered Quantity: 15.8 Unit: mL Repeat number: 3Start: 81-00-6751Dknkf: 13-71-4463pjen 2 spray(s) nasal route once dailyFlonase 0.05 mg/inh [place] 2 spray(s), Nasal, Daily, 16 gram, Refill(s) 0, each nostril, [facility], 165.5, cm, 08/06/24 13:24:00 EST, Height/Length Dosing, 67.6, kg, 08/06/24 13:24:00 EST, Weight Dosing Start Date: 08/06/24 Status: Orderedfurosemide 20 mg oral tablet (11 sources)Loop DiureticStart: 49-50-8890vcqp 1 tablet by mouth once daily gabapentin 300 mg oral capsule (20 sources)Anti-epileptic AgentStart: 33-40-1048xyho 1 capsule by mouth twice dailygabapentin 300 mg Cap See Instructions, TAKE 1 CAPSULE BY MOUTH TWICE DAILY, # 180 cap(s), Refills(s) 0, Pharmacy: [facility], 165.5, cm, 03/25/25 12:55:00 EDT, Height/Length Dosing, 55.5, kg, 03/25/25 12:55:00 EDT, Weight Dosing Start Date: 05/12/25 Status: Ordered Quantity: 180.0 Unit: cap(s) Repeat number: 1Start: 68-54-4971awqq 1 capsule by mouth three times dailyStart: 32-06-2383qyxl 1 capsule by mouth twice dailyGabapentin 300 [...] 90.0 Unit:tab(s) Repeat number: 1Start: 11-27-2023 End: 27-34-8527oyyp 1 tablet by mouth once dailyLosartan-Hydrochlorothiazide 50- 12.5 mg tablet Discontinued 1 TAB PO Daily February 08, 2024 12:00am 2024 1:04pmStart: 35-39-2234tyhz 1 tablet by mouth once dailyHyzaar 12.5 mg-50 mg Tab 1 tab(s), Oral, Daily, 30 tab(s), Refill(s) 3, [facility], 170.2, cm, 09/07/23 13:37:00 EST, Height/Length Dosing, 68.6, kg, 09/07/23 13:37:00 EST, Weight Dosing Start Date: 09/07/23 Status: OrderedIron (1 source)Start: 04-37-4392znma iron Start Date: 06/16/25 Status: Ordered Repeat number: 1letrozole 2.5 mg oral tablet (8 sources)Aromatase InhibitorStart: 85-23-9691zlqx 1 tablet by mouth once daily lidocaine 0.05 mg/mg medicated patch (2 sources)Antiarrhythmic, Amide Local Anestheticlidocaine (Lidoderm) 5 % patch 1 (one) time each day at the same time. ActiveClaritin (9 sources)Start: 49-70-7810Hayozvyo Daily, Refills(s) 0 Start Date: 06/16/25 Status: Ordered Repeat number: 1Start: 35-74-9817kvdw 1 tablet by mouth once dailylosartan potassium 25 mg oral tablet (20 sources)Angiotensin 2 Receptor BlockerStart: 40-86-2992admh 1 tablet by mouth once daily24 hr metoprolol succinate 50 mg extended release oral tablet (20 sources)beta-Adrenergic BlockerStart: 86-76-4867lxad 1 tablet by mouth once dailyToprol XL 50 mg Tab-ER 50 mg, Oral, Daily, # 90 EA, Refills(s) 1, Pharmacy: [facility], 165.5, cm, 10/22/24 16:03:00 EST, Height/Length Dosing, 60.8, kg, 10/22/24 16:03:00 EST, Weight Dosing Start Date: 10/22/24 Status: Ordered Quantity: 90.0 Unit: EA Repeat number: 2Misc Medication (7 sources)Start: 55-38-7989Eenn Medication See Instructions, balance of nature- 3 tabs a day Start Date: 06/11/24 Status: Ordered Repeat number: 1Start: 69-66-7012Aszz Medication See Instructions, balance of nature-3 tabs a day Start Date: 06/11/24 Status: Orderedmometasone furoate 1 mg/ml topical cream (6 sources)CorticosteroidStart: 28-44-4114vribuhtl hydrochloride 40 mg/ml nasal spray (5 sources)Opioid AntagonistStart: 00-80-4865Rtjcihvx 4 mg/actuation spray,non-aerosol (19 sources)Start: 49-30-9251Nqdmrnri 4 mg/actuation spray,non-aerosol Active 4 MG INTRANASAL every 2 to 3 minutes as needed foropioid overdose August 22, 2024 1:00am spray 1 dose into ONE nostril; alternate nostrils w each dose until help arrivesStart: 49-90-2286Dytjgkdp 4 mg/actuation spray,non-aerosol Active 4 MG INTRANASAL every 2 to 3 minutes as needed foropioid overdose August 22, 2024 12:00am spray 1 dose into ONE nostril; alternate nostrils w each dose until help arrivesondansetron 8 mg disintegrating oral tablet (20 sources)Serotonin-3 Receptor AntagonistStart: 42-25-2860slkb 1 tablet by mouth every eight hours as needed for nausea and mgsifjjc97 hr oxyMORphone hydrochloride 20 mg extended release oral tablet (2 sources)Opioid AgonistoxyMORphone ER (Opana) 20 MG 12 hr tablet every 12 (twelve) hours. Activepantoprazole 40 mg delayed release oral tablet (19 sources)Proton Pump InhibitorStart: 87-85-0960Auwxrlgsuggu [address] Tab Refills(s) 0 Start Date: 06/16/25 Status: Ordered Repeat number: 1Start: 65-49-0259hjqn 1 tablet by mouth once dailyStart: 02-28-2025 End: 31-57-7094xfja 40 mg by mouth once dailyPantoprazole (Protonix) [address] for susp in packet Discontinued 40 MG PO Daily February 28, 2025 12:00am February 28, 2025 1:59pmStart: 01-01-2025 End: 35-43-1559qjix 1 tablet by mouth once dailyPantoprazole 20 mg tablet,delayed release (DR/EC) Discontinued 20 MG PO Daily January 01, 2025 12:00am February 28, 2025 1:59pmmicroencapsulated potassium chloride 20 meq extended release oral tablet (11 sources)Start: 57-09-4901qhwwtedmsymmfebr 10 mg oral tablet (20 sources)PhenothiazineStart: 91-45-5004arnf 1 tablet by mouth every six hours as needed for nausea and vomitingsilver sulfADIAZINE 10 mg/ml topical cream (4 sources)Sulfonamide AntibacterialStart: 33-32-3317rtwqmetasttyblxz 800 mg / trimethoprim 160 mg oral tablet (20 sources)Dihydrofolate Reductase Inhibitor Antibacterial, Sulfonamide AntimicrobialStart: 69-35-3884udcclfwbohbcamtu-trimethoprim 800 mg-160 mg Tab Refill(s) 0 Start Date: 06/11/24 Status: OrderedStart: 06-05-2024 End: 12-77-7520jldg 1 tablet by mouth twice dailySulfamethoxazole-Trimethoprim (Bactrim Ds) 800-160 mg tablet Discontinued 1 TAB PO Twice daily 23 06June 05, 2024 12:00am August 21, 2024 4:10pmvitamin B12 (1 source)Vitamin A31Emirm: 51-17-6229Xfclbsk B12 Refills(s) 0 Start Date: 06/16/25 Status: Ordered Repeat number: 1Vitamin D3 (1 source)Start: 18-21-7501Toifegf D3 Refills(s) 0 Start Date: 06/16/25 Status: Ordered Repeat number: 1 Completed/Discontinued Medications MedicationDrug Class(es)DatesSig (Normalized)Sig (Original)acetaminophen 325 mg / oxyCODONE hydrochloride 10 mg oral tablet (20 sources)Opioid AgonistStart: 12-19-2024 End: 95-85-3712frcm 1 tablet by mouth every four to six hours as needed for pain Oxycodone-Acetaminophen 10-325 mg tablet Discontinued 1 TAB PO EVERY 4-6 HOURS as needed for pain 150 March 20, 2025 April 16, 2025 2:56pmStart: 10-17-2024 End: 71-56-3339uycb 1 tablet by mouth every six hours as needed for pain Oxycodone-Acetaminophen 5-325 mg tablet Discontinued 1 TAB PO Every 6 hours as needed for pain 120 November 11, 2024 December 19, 2024 12:13pmStart: 08-22-2024 End: 64-92-3475eytb 1 tablet by mouth every eight hours as needed for pain acetaminophen-oxycodone 325 mg-5 mg Tab TAKE ONE TABLET EVERY 8 HOURS BY MOUTH NEEDED FOR PAIN FOR 30 DAYS Start Date: 10/08/24 Status: Ordered Repeat number: 1Start: 05-30-2024 End: 90-64-6052cdzz 1 tablet by mouth every six hoursOxycodone-Acetaminophen 5- 325 mg tablet Discontinued 1 TAB PO Every 6 hours May 30, 2024 12:00am August 22, 2024 4:31pmStart: 05-16-2024 End: 47-48-7921prgo 1 tablet by mouth every six hoursPercocet 5 mg-325 mg oral tablet 1 tab(s), Oral, q6hr, 12 tab(s), Refill(s) 0, [facility], 170, cm, 05/16/24 8:11:00 EDT, Height/Length Dosing, 67.9, kg, 05/16/24 8:11:00 EDT, Weight DosingStart Date: 05/21/24 Stop Date: 05/26/24 Status: Orderedamoxicillin 875 mg / clavulanate 125 mg oral tablet (20 sources)Penicillin-class AntibacterialStart: 2024 End: 42-41-9980qkde 1 tablet by mouth twice dailyAmoxicillin-Pot Clavulanate 875-125 mg tablet Discontinued 1 TAB PO Twice daily 60 September 1:00am October 30, 2024 11:07amaspirin 81 mg delayed release oral tablet (20 sources)Platelet Aggregation Inhibitor, Nonsteroidal Anti-inflammatory Drug Start: 50-96-3151tnus 1 tablet by mouth once dailycetirizine hydrochloride 10 mg oral tablet (20 sources)Histamine-1 Receptor AntagonistStart: 09-17-2024 End: 25-71-2957wxtp 1 tablet by mouth once dailyCetirizine 10 mg tablet Discontinued 10 MG PO Daily September 17, 2024 1:00am January 01, 2025 9:45am Start: 27-10-6310kbsp 1 tablet by mouth once dailycetirizine 10 mg Tab 10 mg = 1 tab(s), Oral, Daily, # 90 tab(s), Refills(s) 0, Pharmacy: [facility], 165.5, cm, 08/06/24 13:24:00 EST, Height/Length Dosing, 67.6, kg, 08/06/24 13:24:00 EST,Weight Dosing Start Date: 08/06/24 Status: OrderedDULoxetine 30 mg delayed release oral capsule (20 sources)Serotonin and Norepinephrine Reuptake InhibitorStart: 31-88-0372nufd 1 capsule by mouth once dailyduloxetine 30 mg oral delayed release capsule 30 mg = 1 cap(s), Oral, Daily, TAKE ONE CAPSULE BY MOUTH ONCE DAILY, # 90 cap(s), Refills(s) 4, Pharmacy: [facility], 165.5, cm, 12/12/24 13:51:00 EDT, Height/Length Dosing, 58.5, kg, 12/12/24 13:51:00 EDT, Weight Dosing Start Date: 01/02/25 Status: Ordered Quantity: 90.0 Unit: cap(s) Repeat number: 5Start: 01-01-2025 End: 17-66-9767gkjo 1 capsule by mouth once dailyDuloxetine 60 mg capsule,delayed release(DR/EC) Discontinued 60 MG PO Daily February 19, 2025 12:53pm April 16, 2025 2:56pmStart: 10-17-2024 End: 43-19-2369ozjt 1 capsule by mouth once dailyDuloxetine 30 mg capsule,delayed release(DR/EC) Discontinued 30 MG PO daily October 30, 2024 1:12pm January 01, 2025 11:08amHandicap Placard, 5 years. (1 source)Start: 01-96-1298Uezjrxry Placard, 5 years. Handicap Placard, 5 years., [...] 240 mL bottle (5 sources)Start: 02-28-2025 End: 75-72-4741oabw 1 tablet by mouth every six hours [...] - Swish and Swallow dose patient will picker tender between 2-5 Problems Active Problems Problem ClassificationProblemDateDocumented DateEpisodic/ChronicAdjustment disorders (20 sources)Adjustment disorder with mixed anxiety and depressed mood; Translations: [Adjustment disorder with mixed anxiety and depressed mood] 03-51-1375ZjkcqhoEluxsde disorders (20 sources)Generalized anxiety disorder; Translations: [Anxiety]03-21-2023 ChronicAttention-deficit, conduct, and disruptive behavior disorders (20 sources)Attention deficit hyperactivity cgdzittw14-31-7684SvvqognXclgju of breast (20 sources)Malignant neoplasm of lower-inner quadrant of left female breast; Translations: [Malignant neoplasmof lower-inner quadrant of female breast]Onset: 76-91-8559QsuqffxAbzvcugqmxad of device; implant or graft (7 sources)Infection AND/OR inflammatory reaction due to internal prosthetic device, implant AND/OR graft; Translations: [Infection and inflammatory reaction due to other internal prosthetic devices, implants and grafts, initial encounter]Onset: 77-69-8382DiubzbqpOcrpkadklw and other anemia (20 sources)Pancytopenia; Translations: [Other pancytopenia]16-64-1466Rvclssv Deficiency and other anemia (13 sources)Other pancytopenia; Translations: [Other pancytopenia]Onset: 657784-22-0511GaauwbpTkvgkvauru and other anemia (20 sources)Anemia; Translations: [Anemia, unspecified]39-32-1193Hcwdvhib Essential hypertension (18 sources)Hypertensive gndtdkwy57-88-9949CezloxoKxibpdrdzgrdj symptoms and ill-defined conditions (20 sources)Dysuria; Translations: [Urinary symptoms ]21-25-8187LuyhcqvbVfqcmt and vomiting (20 sources)Nausea; Translations: [Nausea]42-28-1368RjljuzqmKnxuagbnj of unspecified nature or uncertain behavior (20 sources)Neoplasm of uncertain behavior of skin of back; Translations: [Neoplasm of uncertain behavior of skin of face]42-09-1268FzgqrswrBgdlqrbfntve breast conditions (20 sources)Breast lump; Translations: [Discharge from nipple]Onset: 08-09-2023 64-63-3980HgodnhesNyilc acquired deformities (20 sources)Scoliosis deformity of numec58-18-1642BurggksXwcqs aftercare (20 sources)Patient encounter status; Translations: [Encounter for palliative care]20-87-9598FzegsowzRmgbv aftercare (12 sources)Encounter for palliative care; Translations: [Encounter for palliative care]51-70-8368LjgycvkrUdljd aftercare (20 sources)Immunodeficiency secondary to chemotherapy ; Translations: [Immunodeficiency secondary to chemotherapy]82-44-5207ZkzutcvxBtbby aftercare (1 source)Procedure carried out on subject; Translations: [Encounter for adjustment and management of vascular access device]Onset: 64-47-1720Whgmrvvb Other and unspecified benign neoplasm (11 sources)Dermal cellular wymxn72-14-7339JufsixsqFcjrz bone disease and musculoskeletal deformities (20 sources)Osteopenia; Translations: [Other specified disorders of bone density and structure, unspecified site]91-07-4061AmkfbxmhAasnp circulatory disease (7 sources)Difficult venous rejeps17-53-7921IwtcrswrWhnzt connective tissue disease (20 sources)H/O: saixcbtehuyxrl95-80-4435DpfbdjjkOoffz diseases of veins and lymphatics (2 sources)Disorder of vein; Translations: [Other specified disorders of veins] Onset: 07-31-0409CmpawffwPgora gastrointestinal disorders (12 sources)Constipation; Translations: [Constipation, unspecified]11-27-2024 EpisodicOther gastrointestinal disorders (7 sources)Constipation, unspecified; Translations: [Constipation, unspecified] 15-46-0406YmrtwrtbOmpaj hereditary and degenerative nervous system conditions (20 sources)Essential -67-8209FykxnggDmvkr nervous system disorders (20 sources)Complex regional pain syndrome of lower irlm05-47-0010WffqfjkAtnec nervous system disorders (20 sources)Eeaxxxeohmvpdk13-55-2515FiylmgdSyoar nervous system disorders (20 sources)Pain due to neoplastic disease; Translations: [Neoplasm related pain (acute) (chronic)]67-87-3214YkhaykwLbtxo nervous system disorders (20 sources)Neoplasm related pain (acute) (chronic); Translations: [Neoplasm related pain (acute) (chronic)]Onset: 751848-52-5536SbayojhThqhm nervous system disorders (20 sources)Neuropathy; Translations: [Polyneuropathy, unspecified]10-17-2024 ChronicOther nervous system disorders (20 sources)Polyneuropathy, unspecified; Translations: [Mononeuritis of unspecified site]Onset: 537176-96-0291CodftqzKfwmh nervous system disorders (7 sources)Postoperative pain ; Translations: [Other acute postprocedural pain] Onset: 492477-76-5648IwfvdctxSlmkj nutritional; endocrine; and metabolic disorders (5 sources)Overweight in adulthood with body mass index of 25 or more but less than 2604-73-3568IpvjccisDsnah screening for suspected conditions (not mental disorders or infectious disease) (20 sources)Electrocardiogram abnormal; Translations: [Patient encounter status] 57-96-4535BuxegqxxFfbgn upper respiratory disease (2 sources)Seasonal -03-8389RxhvvztMvxugird codes; unclassified (2 sources)Device in qjle19-65-3338VpdtxwynAychqzyonmvs (2 sources)CONTACT W/AND (SUSP) EXPOS COVID-19; Translations: [CONTACT W/AND (SUSP) EXPOS COVID-19]Onset: 23-27-2665Mvauymlkehbv (2 sources)Long-term current use of drug mosperi07-22-3100Duizldtzdzdu (17 sources)Patient encounter -20-7643Rwngqylipjug (3 sources)C50.912 - Malignant neoplasm of unspecified site of left female breast,Z17.0 - Estrogen receptor positive status [ER+]Unclassified (1 source)Immunodeficiency due to drugs; 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]Onset: 18-42-7730Bukidkoofiha (1 source)longterm (current) use of other immunomodulators and immunosuppressants; Translations: [longterm (current) use of other immunomodulators and immunosuppressants]Onset: 17-73-3586Lcruv infection (1 source)COVID-19; Translations: [COVID-19]Onset: 09-07-2021 Past or Other Problems Problem ClassificationProblemDateDocumented DateEpisodic/ChronicBacterial infection; unspecified site (20 sources)Bacteremia caused by Gram-positive bacteria; Translations: [Bacteremia]Onset: 560497-06-7589SmegmtvaTxtaasoxoa and other anemia (13 sources)Anemia, unspecified; Translations: [Anemia, unspecified]Onset: 166777-17-9453ZltyjcgcQ Codes: Adverse effects of medical drugs (1 source)Adverse effect of antineoplastic and immunosuppressive drugs, initial encounter; Translations: [Adverse effect of antineoplastic and immunosuppressive drugs, initial encounter]Onset: 41-73-9895EamfkgbrRhcuuzvk (20 sources)Gangrenous pneumonia; Translations: [Gangrene and necrosis of lung] Onset: 899029-16-0361GaeqqwpnLzfgl bone disease and musculoskeletal deformities (20 sources)Other specified disorders of bone density and structure, unspecified site; Translations: [Disorder of bone and cartilage, unspecified]Onset: 725028-92-2659ZvjnntalYieydggkr (except that caused by tuberculosis or sexually transmitted disease) (20 sources)Pneumonia; Translations: [Pneumonia, unspecified organism]Onset: 833479-93-6487RrkbzybhQjekbjre codes; unclassified (1 source)Estrogen receptor positive status [ER+]; Translations: [Estrogen receptor positive status [ER+]]Onset: 20-99-7473KbpoossbJjztkuduocvt (1 source)CONTACT W/AND (SUSP) EXPOS COVID-19; Translations: [CONTACT W/AND (SUSP) EXPOS COVID-19]Onset: 29-54-8316Uoyiphdpiout (11 sources)Body mass index 20-24 - wbucan65-08-3721Swsdxct tract infections (20 sources)Urinary tract infectious disease; Translations: [Urinary tract infection, site not specified]Onset: 691578-56-1777Uvfbzjzi Results Test NameValueInterpretationReference RangeFacilityProvider Letteron 07-10-2025 Provider LetterProvider Letter July 10, 2025 [address]DELINA MIR [address] [place] [id number] : 1960 Dear Adelina, We have been trying to reach you with no success. It is important that you return our call upon receiving this letter. Also, at the time of your call, please provide us with your current information. Thank you for your prompt attention to this matter. Sincerely, [address] [address] AegaauXkhydvTrumbull Regional Medical CenterLipid Panelon 06-30-2025 Cholesterol [Mass/Vol]296 mg/aEEfvd782-004BeygwyTrumbull Regional Medical CenterComment on above:Performed By: #### [id number] #### [facility] [address] [place], [place] [address]Itymmldrhsd in HDL [Mass/Vol]54 mg/dLInvalid Interpretation CodeTrumbull Regional Medical CenterComment on above:Result Comment: '>= 60 LOW RISK' '<= 40 HIGH RISK'Performed By: #### [id number] #### [facility] [address] [place], [place] [address]Cdcvyynzhuc in LDL [Mass/Vol]199 mg/dLHigh<=129Tr[facility]ull Regional Medical CenterComment on above:Performed By: #### [id number] #### [facility] [address] [place], [place] [address]Fadsuldqbbw in VLDL [Mass/Vol]46 mg/dLHigh7-40Tr[facility]ull Regional Medical CenterComment on above:Performed By: #### [id number] #### [facility] [address] [place], [place] [address]Otfafjndgfoq [Mass/Vol]229 mg/dLHigh<=149[place] [facility] CenterComment on above:Performed By: #### [id number] #### [facility] [address] [place], [place] [address]Ueazokxbzk Visit Summaryon 92-17-0406Dbaygpxbmx Visit Summary Ambulatory Visit Summary ADELINA MIR :1960 Visit Date:06/24/2025 Ambulatory Visit Instructions Your Care Team Attending Physician - APARNA PRATT, Roshan Horner Primary Care Physician - Juan J Caballero DO This Is Your Medications List Contact prescribing physician if questions or concerns Misc Prescription (Handicap [employer], 5 years.) Misc Prescription (calcium) Non-Formulary Medication (Misc Medication) Non-Formulary Medication (iron) acetaminophen-oxycodone (acetaminophen-oxycodone 325 mg-5 mg Tab) alendronate (alendronate 70 mg oral tablet, effervescent) alprazolam (alprazolam 0.25 mg Tab) cholecalciferol (Vitamin D3) cyanocobalamin (Vitamin B12) cyclobenzaprine (cyclobenzaprine 10 mg Tab) duloxetine (duloxetine 30 mg oral delayed release capsule) fluticasone nasal (Flonase 0.05 mg/inh [place]) gabapentin (gabapentin 300 mg Cap) gabapentin (gabapentin [...] Follow-Up Appointments Monday 1:20 PM EDT Where: [address] [address]- Monday2025 2:30 PM EDT Where: [address] [address]- Medications What How Much When Why Instructions [...] Unchanged fluticasone nasal (Flonase 0.05 mg/ inh [place]) 1 Sprays Nasal Inhalation Every day Contact [...] concerns Allergies Entex (U (more content not included)...[facility] Ambulatory Visit Summaryon 25-91-7066Taoezsbejs Visit SummaryAmbulatory Visit Summary ADELINA MIR :1960 Visit Date:06/16/2025 Ambulatory Visit Instructions Your Diagnosis Encounter for Medicare annual examination with abnormal findings Breast cancer of lower-inner quadrant of left female breast Pancytopenia HTN (hypertension) Anxiety Flu vaccine refused Screening for malignant neoplasm of colon declined Your Care Team Attending Physician - Michael Holley MD Primary Care Physician - Juan J Caballero DO. This Is Your Medications List Misc Prescription [...] Follow-Up Appointments Monday 1:40 PM EDT With: Roshan BRAUN MD Where: [facility] General Surgery [address], [address], [place] [address]- Monday 1:20 PM EDT With: Where: [address] [address]- Monday2025 2:30 PM EDT With: Where: [address] [address]- You Need to Complete the Following Lipid [...] UTI symptoms Pancytopenia Handicap Placard, 5 years. Unchanged Non-Formulary Medication (iron) Unchanged [...] Intradermal melanocytic nevus Neoplasm (more content not included)...[facility] Medicine Office/Clinic Noteon 62-60-9351Aesuye Medicine Office/Clinic NoteFamurphy [facility]/Clinic Note Chief Complaint Subsequent [...] of clutter to prevent tripping and/or falling. [place] Advance Directives reviewed. Patient not interested in [...] continue to follow (more content not included)... [facility] SystemComment on above:Result Comment: Electronically Signed By: MICHAEL REEDER CNP\.br\Date and Time Signed: 06/16/25 16:14 EDT\.br\Electronically Co-Signed By: Bre Guan\.br\Date and Time Co-Signed: 06/16/25 15:45EDTFamily Medicine Office/Clinic NoteFamily Medicine Office/Clinic Note Chief Complaint The patient presents for a wellness visit and management of hypertension and anxiety. HPI Staff Pt presents today for [employer] check Patient is here for follow up on hypertension. How often are you checking your blood pressure? occasionally What are your average readings? _ it's fine states she has white coat syndrome Yearly BMP: _ BUN: 27 mg/dL High (07/22/24 06:27:00) Calcium Lvl: 8.8 mg/dL Low (07/22/24:27:00) Chloride: 100 mmol/L Low (07/22/24:27:00) CO2: 27 mmol/L (07/22/24::00) Creatinine: 1.3 mg/dL (07/22/24::00) eGFR: 46 mL/min/1.73 m2 Low (07/22/24::00) Glucose Lvl: 105 mg/dL (07/22/24:27:00) Potassium Lvl: 3.7 mmol/L (07/22/24::00) Sodium Lvl: 135 mmol/L (07/22/24:27:00) Follow up for Mental Status: Medication adherence- [...] for Flonase due to the cost of afpb-feb-zybprok options. She has tried Zyrtec and Dorothy [...] Neurological: oriented x 4, LOC appropriate for [facility] normal Assessment/Plan 1. HTN (hypertension) (I10: [...] rhinitis management due to cost concerns with wubk-jti-vdmlubf options. Orders: fluticasone nasal, 1 spray(s), Nasal, [...] qualifying data available Patient Education Hypertension, Adult, Netr-ep-Qrsx Problem List/Past Medical History Ongoing Abnormal EKG [...] UTI symptoms Historical B (more content not included)...[facility] SystemComment on above:Result Comment: Electronically Signed By: MICHAEL REEDER CNP\.oh\Date and Time Signed: 06/16/25 16:09 EDTComprehensive Metabolic Panelon 04-30-2025 Albumin [Mass/Vol]4.2 g/dLNormal3.5-5.7The [facility] Health Physician GroupComment on above:Performed By: #### CMP ####[address] [address] USAAlbumin/Globulin [Mass ratio]1.7 {ratio}NormalThe [facility]arnett Health Physician GroupComment on above:Performed By: #### CMP ####[address] [address] USAALP [Catalytic activity/Vol]60 U/JVnlivw92-122Plx [facility] Health Physician GroupComment on above: Performed By: #### CMP ####[id number] [place] [address] USAALT [Catalytic activity/Vol]10 U/LNormal7-52The [facility] Health Physician GroupComment on above:Performed By: #### CMP ####[address] [address] USAAnion gap [Moles/Vol] 9.1 mmol/LNormal6.0-15.0The [facility] Health Physician GroupComment on above:Performed By: #### CMP ####[address] [address] USAAST [Catalytic activity/Vol]17 U/UJfdmrx87-73Hun [facility] Physician [facility] CenterComment on above:Performed By: #### CMP ####[id number] USABilirubin [Mass/Vol]0.4 mg/dLNormal 0.3-1.0The [facility] Physician [facility] CenterComment on above:Performed By: #### CMP ####[place] [address] USACalcium [Mass/Vol]9.8 mg/dLNormal8.6-10.3The [facility] Physician [facility] CenterComment on above: Performed By: #### CMP ####[place] [address] USAChloride [Moles/Vol]99 mmol/PYkxsac92-137Uem [facility] Physician [facility] CenterComment on above:Performed By: #### CMP ####[place] [address] USACO2 [Moles/Vol]31.1 mmol/LHigh21.0-31.0The [facility] Physician [facility] CenterComment on above:Performed By: #### CMP ####[id number] USACreatinine [Mass/Vol]1.14 mg/dLNormal0.60-1.20The [facility] Comment on above:Performed By: #### CMP ####[place] [address] USACreatinine Clr Calc Bjxcltog62.40NormalThNell J. Redfield Memorial Hospital Physician GroupComment on above:Result Comment: PERFORMED BY:[address] [address] [place], [place] [phone] MEDICAL DIRECTORLEE RAMACHANDRAN M.D.Performed By: #### CMP ####[id number] USAGFR/1.73 sq M.predicted MDRD (S/P/Bld) [Vol rate/Area]54.093 mL/min/{1.73_m2}NormalThe [facility] Health Physician GroupComment on above:Performed By: #### CMP ####[address] [address] USAGlobulin (S) [Mass/Vol]2.5 g/dLNormalThNell J. Redfield Memorial Hospital Physician GroupComment on above:Performed By: #### CMP ####[id number] USAGlucose [Mass/Vol]102 mg/iEUufq12-350Oyv [facility] Comment on above:Result Comment: Random Glucose Reference Range is dependent on time and content of last meal. Glucose of more than 200 mg/dL in a nonstressed, ambulatory subject supports the diagnosis of Diabetes Mellitus. ADA recommended reference rangePerformed By: #### CMP ####[address] [address] USAPotassium [Moles/Vol]4.2 mmol/LNormal3.5-5.1 The [facility] Health Physician GroupComment on above:Performed By: #### CMP ####[address] [address] USAProtein [Mass/Vol]6.7 g/dLNormal6.4-8.9The [facility] Physician [facility] CenterComment on above: Performed By: #### CMP ####[address] [address] USASodium [Moles/Vol]135 mmol/ROqn755-740Lbj [facility] Physician GroupComment on above:Performed By: #### CMP ####[id number] USAUrea nitrogen [Mass/Vol]24 mg/dLNormal7-25The [facility] Health Physician GroupComment on above:Performed By: #### CMP ####[id number] [place] Alanine aminotransferase [Enzymatic activity/volume] in Serum or PlasmaOrdered By: Kush Glez on 87-36-7344JAI [Catalytic activity/Vol]12 U/LNormal7-52 [facility] HospitalComment on above:Performed By: #### CBC, CMP ####[address] [address] USAAlbumin [Mass/volume] in Serum or Plasma by Bromocresol green (BCG) dye binding metho Ordered By: tara IlanaAdanIselarekha on 53-59-0214Eygyekr BCG dye [Mass/Vol]4.1 g/dL 3.5-5.7FThe Bellevue HospitalAlkaline phosphatase [Enzymatic activity/volume] in Serum or PlasmaOrdered By: tara Glez on 25-02-7083VRI [Catalytic activity/Vol]64 U/UFrtabw18-685IfvdbpbdkWhite Hospital Comment on above:Performed By: #### CBC, CMP ####[address] [address] USAAspartate aminotransferase [Enzymatic activity/volume] in Serum or PlasmaOrdered By: [facility] ShiraIselarekha on 38-21-7644PBG [Catalytic activity/Vol]16 U/XLgbsqa50-44UfdhknudrWhite Hospital Comment on above:Performed By: #### CBC, CMP ####[address] [address] USABasophils [#/volume] in Blood by Automated countOrdered By: tara Glez on 21-35-0396Cqeeatnuv (Bld) [#/Vol] 0.1 10*3/uLNormal0.0-0.2FThe Bellevue HospitalComment on above:Result Comment: PERFORMED BY:[address] [address] [place], [place] [phone] MEDICAL LINDY RAMACHANDRAN M.D.Performed By: #### CBC, CMP ####[address] [address] USABasophils/100 leukocytes in Blood by Automated countOrdered By: tara IlanaOdell on 53-34-8176Trkawctjx/100 WBC (Bld)0.6 %Normal.White HospitalComment on above:Performed By: #### CBC, CMP ####[address] [place] [address] USABilirubin.total [Mass/volume] in Serum or PlasmaOrdered By: [facility] Centerak on 04-21-2025 Bilirubin [Mass/Vol]0.5 mg/dLNormal0.3-1.0[facility] Comment on above:Performed By: #### CBC, CMP ####[address] [address] USACalcium [Mass/volume] in Serum or PlasmaOrdered By: [facility] Centerak on 02-46-2404Wvbljnw [Mass/Vol]9.4 mg/dLNormal 8.6-10.3FThe Bellevue HospitalComment on above:Performed By: #### CBC, CMP ####[id number] USACarbon dioxide, total [Moles/volume] in Serum or PlasmaOrdered By: [facility] Hospitalak on 35-26-0051DX4 [Moles/Vol]29.3 mmol/GVktjll20.0-31.0White HospitalComment on above:Performed By: #### CBC, CMP ####[address] [address] USAChloride [Moles/volume] in Serum or PlasmaOrdered By: [facility] on 04-21-2025 Chloride [Moles/Vol]100 mmol/LVehfql88-085QlkbstaslWhite Hospital Comment on above:Performed By: #### CBC, CMP ####[address] [address] USAComplete Blood Count Auto Diffon 75-88-3831Lnnb Corpuscular HGB Conc33.6 g/zWQlzvks66.0-35.0The [facility] Health Physician GroupComment on above:Performed By: #### CBC, CMP ####[address] [address] USANRBC%0.0 /100{WBC} Normal0-0.5The [facility] Health Physician GroupComment on above:Performed By: #### CBC, CMP ####[address] [address] [facility] [[email or web address]] White Blood Count8.2 [CFU]/mLNormal3.8-11.6The [facility] Health Physician GroupComment on above:Performed By: #### CBC, CMP ####[address] [address] USAComprehensive Metabolic Panelon 04-21-2025 Albumin [Mass/Vol]4.1 g/dLNormal3.5-5.7The [facility] Health Physician GroupComment on above:Performed By: #### CBC, CMP ####[address] [address] USACreatinine Clr Calc Acvjbmme44.09NormalThNell J. Redfield [facility] Hospital Physician [facility] CenterComment on above:Result Comment: PERFORMED BY:[address] [place], [place] [phone] MEDICAL LINDY RAMACHANDRAN M.D.Performed By: #### CBC, CMP ####[address] [address] USAGFR/1.73 sq M.predicted MDRD (S/P/Bld) [Vol rate/Area]41.914 mL/min/{1.73_m2}NormalThe [facility] Physician [facility] CenterComment on above:Performed By: #### CBC, CMP ####[address] [address] USACreatinine [Mass/volume] in Serum or PlasmaOrdered By: d Al-Marrawi on 24-34-7880Hutnzsikqe [Mass/Vol]1.41 mg/dL High0.60-1.20White HospitalComment on above:Performed By: #### CBC, CMP ####[address] [address] USAEosinophils [#/volume] in Blood by Automated countOrdered By: Mhd Al- Marrawi on 55-85-2557Eifirczpgti (Bld) [#/Vol]0.3 10*3/uLNormal0.0-0.45White HospitalComment on above:Performed By: #### CBC, CMP ####[address] [place] Eosinophils/100 leukocytes in Blood by Automated countOrdered By: tara IlanaOdell on 08-04-1290Zplfmtcytmy/100 WBC (Bld)4.1 %Normal.White HospitalComment on above:Performed By: #### CBC, CMP ####[address] USAErythrocyte distribution width [Ratio] by Automated countOrdered By: [facility] Centerrekha on 93-08-1731Wkemqmupaec distribution width (RBC) [Ratio]15.0 %Vjczyz42.9-15.3FThe Bellevue HospitalComment on above:Performed By: #### CBC, CMP ####[address] USAErythrocytes [#/volume] in Blood by Automated countOrdered By: tara [facility] Jewish HospitalNhung on 96-02-6112AHO (Bld) [#/Vol]3.72 10*6/uLNormal3.60-5.00[facility] HospitalComascension macomb on above:Performed By: #### CBC, CMP ####[address] USAGlucose [Mass/volume] in Serum or PlasmaOrdered By: [facility] Centerrekha on 59-39-0089Tyznyku [Mass/Vol]107 mg/mQDlcj53-613VzwrgwgcaWhite HospitalComment on above:ADA recommended reference rangeRandom Glucose Reference [...] recommended reference rangePerformed By: #### CBC, CMP ####[address] USAHematocrit [Volume Fraction] of Blood by Automated countOrdered By: tara Ilana-Iselarekha on 07-56-9654Sdafpyndxi (Bld) [Volume fraction]37.6 %Akoxam55.0-46.4FThe [facility] Hospital Comment on above:Performed By: #### CBC, CMP ####[address] [address] USAHemoglobin [Mass/volume] in Blood Ordered By: tara Bales-Iselarekha on 89-20-0981Vdrnuhefzg (Bld) [Mass/Vol]12.6 g/dL Ugyxla17.8-15.4FThe Bellevue HospitalComment on above:Performed By: #### CBC, CMP ####[address] [address] USALeukocytes [#/volume] corrected for nucleated erythrocytes in Blood by Automated counOrdered By: tara Bales-Iselarekha on 28-77-7380GEW corrected for nucl RBC Auto (Bld) [#/Vol]8.2 10*3/uL3.8-11.6FThe [facility] Hospital Leukocytes [#/volume] in Blood by Automated countOrdered By: tara Ilana-Iselarekha on 06-03-3579DXH (Bld) [#/Vol]8.2 10*3/uLNormal3.8-11.6FThe Bellevue HospitalComment on above:Performed By: #### CBC, CMP ####[address] [address] USALymphocytes [#/volume] in Blood by Automated countOrdered By: tara Bales-Iselarekha on 25-01-0891Hmttcphsagv (Bld) [#/Vol]1.2 10*3/uLNormal1.00-4.8White HospitalComment on above:Performed By: #### CBC, CMP ####[address] [address] USALymphocytes/100 leukocytes in Blood by Automated countOrdered By: tara Glez on 52-51-3461Agiugjzmahb/100 WBC (Bld) 14.3 %Normal.White HospitalComment on above:Performed By: #### CBC, CMP ####[address] [address] [facility] [Entitic mass] by Automated countOrdered By: Kush Glez on 97-04-2943YOH (RBC) [Entitic mass]33.9 ucUgpplj86.7-34.3FThe Bellevue HospitalComment on above:Performed By: #### CBC, CMP ####[address] [facility] Auto (RBC) [Mass/Vol]Ordered By: Kush Glez on 69-17-8627QIOE (RBC) [Mass/Vol]33.6 g/dL 32.0-35.0[facility] HospitalV [Entitic volume] by Automated countOrdered By: Kush Glez on 96-18-0884VRL (RBC) [Entitic vol]101.0 fLHigh 80-100White HospitalComment on above:Performed By: #### CBC, CMP ####[place] [address] [place] Monocytes [#/volume] in Blood by Automated countOrdered By: Kush Glez on 74-58-2743Phwbyiyek (Bld) [#/Vol]0.9 10*3/uLHigh0.0-0.8White HospitalComment on above:Performed By: #### CBC, CMP ####[place] [address] USAMonocytes/100 leukocytes in Blood by Automated countOrdered By: Kush Glez on 04-21-2025 Monocytes/100 WBC (Bld)10.7 %Normal.White HospitalComment on above:Performed By: #### CBC, CMP ####[place] [address] USANeutrophils [#/volume] in Blood by Automated count Ordered By: Kush Glez on 60-15-0832Yqcquaicqvl (Bld) [#/Vol]5.8 10*3/uL Normal1.8-7.7FThe Bellevue HospitalComment on above:Performed By: #### CBC, CMP ####[address] [address] USANeutrophils/100 leukocytes in Blood by Automated countOrdered By: tara Glez on 10-80-3106Esrwrufiobv/100 WBC (Bld)70.3 %Normal.White HospitalComment on above:Performed By: #### CBC, CMP ####[address] [address] USANo Panel Information Ordered By: Kush Glez on 76-56-0281Gdnntrgkn GFR (CKD-EPI)41.914 mL/Min [facility] HospitalPharmacy Creatinine Clearance (Chem35.09 White HospitalNucleated erythrocytes [Presence] in Blood by Automated countOrdered By: tara Glez on 25-99-7909Ywpckfwng RBC Auto Ql (Bld)0.0 /100{WBC}0-0.5FThe Bellevue HospitalPlatelet mean volume [Entitic volume] in Blood by Automated countOrdered By: tara Glez on 64-79-5477Ksjknwgp mean volume (Bld) [Entitic vol]7.7 fLNormal6.3-10.7FThe Bellevue HospitalComascension macomb on above:Performed By: #### CBC, CMP ####[address] [address] [place] Platelets [#/volume] in Blood by Automated countOrdered By: tara Glez on 05-19-5861Lvijwpqfk (Bld) [#/Vol]205 10*3/oSQlpirh033-442HisegafnpWhite HospitalComascension macomb on above:Performed By: #### CBC, CMP ####[address] [address] USAPotassium [Moles/volume] in Serum or PlasmaOrdered By: Mhtara Glez on 04-21-2025 Potassium [Moles/Vol]4.1 mmol/LNormal3.5-5.1FThe [facility] Comment on above:Performed By: #### CBC, CMP ####[address] [address] USAProtein [Mass/volume] in Serum or PlasmaOrdered By: [facility] on 67-83-9397Quspybz [Mass/Vol]6.8 g/dLNormal 6.4-8.9White HospitalComment on above:Performed By: #### CBC, CMP ####[address] [address] [facility] [[email or web address]] Serum globulin measurement by calculation (mass/volume)Ordered By: [facility] Shira Hooker on 48-40-7178Rthlzrnc (S) [Mass/Vol]2.7 g/dLNormalWhite HospitalComment on above:Performed By: #### CBC, CMP ####[address] [address] USASerum or plasma albumin/globulin mass ratioOrdered By: [facility]hung on 04-21-2025 Albumin/Globulin [Mass ratio]1.5 {ratio}[facility] Comment on above:Performed By: #### CBC, CMP ####[address] [address] USASerum or plasma anion gap determinationOrdered By: [facility] on 68-84-3352Tutcm gap [Moles/Vol]10.8 mmol/LNormal6.0-15.0White HospitalComment on above:Performed By: #### CBC, CMP ####[address] [address] USASodium [Moles/volume] in Serum or PlasmaOrdered By: [facility] Ilana-Nhung on 30-23-0696Floiyv [Moles/Vol]136 mmol/LCqawoc881-002QixlqjegcWhite HospitalComment on above:Performed By: #### CBC, CMP ####[address] [place] [address] USAUrea nitrogen [Mass/volume] in Serum or PlasmaOrdered By: Kush Glez on 04-72-1434Bhug nitrogen [Mass/Vol] 31 mg/dLCabell Huntington Hospital7-25White HospitalComment on above:Performed By: #### CBC, CMP ####[facility] [address] [place] [address] USAAmbulatory Visit Summaryon 35-76-8073Kwbaebcaro Visit SummaryAmbulatory Visit Summary ADELINA MIR :1960 [...] Appointments Monday 2:30 PM EDT With: Where: [address] [address]- Monday 3:20 PM EDT With: MICHAEL REEDER CNP Where: [address] [address]- Medications What How Much When Why Instructions [...] questions or concerns Unchanged Misc Prescription (Handicap Sony, 5 years.) See instructions BMI 21.0-21.9, adult Nonsmoker Breast cancer of lower-inner quadrant of left female breast Hospital discharge follow-up PNA (pneumonia) UTI symptoms Pancytopenia Handicap Sony, 5 years. Contact prescribing physician if questions or concerns Unchanged Non-Formulary Medication (Misc Medication) See instructions balance of nature-3 tabs a day Contact prescribing physician if questions or concerns Pharmacy Information [facility]: [address], [place] [phone] Allergies Entex (Unknown) Skelaxin (Unknown) corticosteroids (Anaphylaxis) [...] We appreciate your feedb (more content not included)...[facility] Medicine Office/Clinic Noteon [phone] Medicine Office/Clinic NoteFamurphy army hospital Medicine Office/Clinic Note Chief Complaint The patient presents for a follow-up after completing cancer treatment. HPI Staff Adelina is a 64 year old [...] in 3 months Ordered: Drug Screen POC 25136 3. Anxiety (F41.9: Anxiety disorder, unspecified) - [...] 03/25/25 12:55:00 EDT, WeightDosing Drug Screen POC 17575 4. Former smoker (Z87.891: Personal history of nicotine dependence) Encouraged to continue as a non-smoker 5. BMI 20.0-20.9, adult (Z68.20: Body mass index [BMI] 20.0-20.9, adult) BMI 20.26 Follow-up With When Contact Information MICHAEL REEDER CNP, FAM Within 3 months [address] [place] [address] [facility] (1) Additional Instructions: Anxiety Patient [...] Removal of breast implant, Simple dental extraction, DAEN BSO - Total abdominal hysterectomy and bilateral salpingo-oophorectomy, Tonsillect (more content not included)...[facility] Comment on above:Result Comment: Electronically Signed By: MICHAEL REEDER CNP\.br\Date and Time Signed: 03/25/25 15:18 EDTAmbulatory Visit Summaryon 25-83-7740Vsblbgucda Visit SummaryAmbulatory Visit Summary ADELINA MIR :1960 Visit Date:01/21/2025 Ambulatory Visit Instructions Your Diagnosis HTN (hypertension) Essential tremor Edema Breast cancer of lower-inner quadrant of left female breast Anxiety Former smoker BMI 20.0-20.9, adult Your Care Team Attending Physician - Michael Hollye MD Primary Care Physician - Michael Holley MD This Is Your Medications List Mis Prescription (Warren Cardoza, 5 years.) Non-Formulary Medication ([facility] Medication) acetaminophen-oxycodone (acetaminophen-oxycodone 325 mg-5 mg Tab) [...] Follow-Up Appointments 2024 1:40 PM EDT With: Michael Holley MD Where: [address] [id number]- Monday 1:00 PM EDT With: Where: [address] [address]- Medications What How Much When [...] UTI symptoms Pancytopenia Handicap Placard, 5 years. Unchanged Non-Formulary Medication (Misc Medication) [...] you for choosing us for your care. [facility] Medicine Office/Clinic Noteon [phone] Medicine Office/Clinic NoteFamurphy army hospital Medicine Office/Clinic Note Chief Complaint - Concern [...] Yearly BMP: _ BUN: 27 mg/dL High (07/22/24:27:00) Calcium Lvl: 8.8 mg/dL Low (07/22/24:27:00) Chloride: 100 mmol/L Low (07/22/24::00) CO2: 27 mmol/L (07/22/24::) Creatinine: 1.3 mg/dL (07/22/24::) eGFR: 46 mL/min/1.73 m2 Low (07/22/24::) Glucose Lvl: 105 mg/dL (07/22/24::) Potassium Lvl: 3.7 mmol/L (07/22/24::) Sodium Lvl: 135 mmol/L (07/22/24::) no refills needed History of Present Illness [...] Problem List/Past Medical Histor (more content not included)...[facility]Result Comment: Electronically Signed By: Kishan PRATT, Michael Foley\Date and Time Signed: 01/21/25 13:27 EDTAlanine aminotransferase [Enzymatic activity/volume] in Serum or PlasmaOrdered By: Josseline Simpson on 61-18-4166GXQ [Catalytic activity/Vol]Alanine aminotransferase [Enzymatic activity/volume] in Serum or Plasma7-52White HospitalALT [Catalytic activity/Vol]12 U/LNormal752White HospitalComment on above:Performed By: #### CMP ####[place] [id number] USAAlbumin [Mass/volume] in Serum or Plasma by Bromocresol green (BCG) dye binding methoOrdered By: Josseline Simpson on 63-71-1470Jtkfmky BCG dye [Mass/Vol]Albumin [Mass/volume] in Serum or Plasma by Bromocresol green (BCG) dye binding metho3.5-5.7FThe Bellevue HospitalAlbumin BCG dye [Mass/Vol]4.0 g/dL3.5-5.7FThe Bellevue Hospital Alkaline phosphatase [Enzymatic activity/volume] in Serum or PlasmaOrdered By: Josseline Simpson on 22-06-4166FDZ [Catalytic activity/Vol]Alkaline phosphatase [Enzymatic activity/volume] in Serum or Zslnja78-590DojcjppifWhite HospitalALP [Catalytic activity/Vol]50 U/NKepoyc96-251XrdhgurayWhite HospitalComment on above:Performed By: #### CMP ####[place] [address] [place] [id number] USAAspartate aminotransferase [Enzymatic activity/volume] in Serum or PlasmaOrdered By: Josseline Simpson on 54-29-5511NMP [Catalytic activity/Vol]Aspartate aminotransferase [Enzymatic activity/volume] in Serum or Zpxbiu06-78LmxgsecqbWhite HospitalAST [Catalytic activity/Vol]21 U/HXzsvso25-08OsazavumbWhite HospitalComment on above: Performed By: #### CMP ####[address] [place] [address] USABasophils Auto (Bld) [#/Vol]Ordered By: tara Hooker on 72-28-9111Bloiofkes (Bld) [#/Vol]Automated basophil count0.0-0.2 White HospitalBasophils [#/volume] in Blood by Automated countOrdered By: tara Glez on 09-14-5623Euuhkdbem (Bld) [#/Vol]0.0 10*3/uL Normal0.0-0.2FThe Bellevue HospitalComment on above:Result Comment: PERFORMED BY:[address] [place], [place] [phone] MEDICAL DIRECTORALTHEA MEADOWS M.D. Performed By: #### CBC ####[address] [address] USABasophils/100 WBC Auto (Bld)Ordered By: tara Hooker on 18-15-5050Veqkmcrji/100 WBC (Bld)Automated basophil %.White HospitalBasophils/100 leukocytes in Blood by Automated count Ordered By: tara Glez on 37-72-1467Nrpkxawql/100 WBC (Bld)0.7 %Normal. White HospitalComment on above:Performed By: #### CBC ####[address] [address] [place] Bilirubin.total [Mass/volume] in Serum or PlasmaOrdered By: Josseline Simpson on 32-16-0604Fpupiovtk [Mass/Vol]Bilirubin.total [Mass/volume] in Serum or Plasma 0.3-1.0White HospitalBilirubin [Mass/Vol]0.4 mg/dLNormal 0.3-1.0White HospitalComment on above:Performed By: #### CMP ####[address] [address] USACalcium [Mass/volume] in Serum or PlasmaOrdered By: Josseline Simpson on 63-83-5495Gmopxao [Mass/Vol]Calcium [Mass/volume] in Serum or Plasma8.6-10.3[facility] Medical CenterCalcium [Mass/Vol]9.9 mg/dLNormal8.6-10.3FThe Bellevue HospitalComment on above:Performed By: #### CMP ####[place] [address] USACarbon dioxide, total [Moles/volume] in Serum or PlasmaOrdered By: Josseline Simpson on 82-73-0470EQ9 [Moles/Vol]Carbon dioxide, total [Moles/volume] in Serum or Eiiabj70.0-31.0 White HospitalCO2 [Moles/Vol]30.4 mmol/CTttwzv36.0-31.0 White HospitalComment on above:Performed By: #### CMP ####[address] Chloride [Moles/volume] in Serum or PlasmaOrdered By: Josseline Simpson on 12-31-2024 Chloride [Moles/Vol]Chloride [Moles/volume] in Serum or Ahhwrh04-270JjkfktorfWhite HospitalChloride [Moles/Vol]101 mmol/YQebeun38-013WpruxmrzqWhite HospitalComment on above:Performed By: #### CMP ####[place] [id number] USAComplete Blood Count Auto Diffon 43-10-8391Fvsm Corpuscular HGB Conc34.7 g/yKYmsrah84.0-35.0The [facility]arn[facility] Health Physician GroupComment on above:Performed By: #### CBC ####[place] [address] USANRBC%0.3 /100{WBC} Normal0-0.5The [facility]/Harnett Health Physician GroupComment on above:Performed By: #### CBC ####[place] [id number] [facility] [[email or web address]] Comprehensive Metabolic Panelon 23-94-3139Ehfnahi [Mass/Vol]4.0 g/dLNormal 3.5-5.7The [facility]arn[facility] Health Physician GroupComment on above:Performed By: #### CMP ####[address] [place] [address] [place] Creatinine Clr Calc Kwmkaygf34.73NormHollywood Medical Center Physician GroupComment on above:Result Comment: PERFORMED BY:[place] [address] [address] [place], [place] [phone] MEDICAL DIRECTORMONEGRITA JIMENEZ M.D.Performed By: #### CMP ####[address] [address] USAGFR/1.73 sq M.predicted MDRD (S/P/Bld) [Vol rate/Area]mL/min/{1.73_m2}NormalThe Cape Fear/Harnett Health Physician GroupComment on above: Performed By: #### CMP ####[address] [address] USAComprehensive metabolic panelon 90-86-3076Xitdnqx [Mass/Vol]4 g/dL3.5 - 5.7 g/dLNOSC HealthcareAlbumin/Globulin [Mass ratio]1.5 {ratio}NOMS HealthcareALP [Catalytic activity/Vol]50 U/L34 - 104 U/LNOMS HealthcareALT [Catalytic activity/Vol]12 U/L7 - 52 U/LNOMS HealthcareAnion gap [Moles/Vol]11.6 mmol/L6.0 - 15.0 meq/LNOMS HealthcareAST [Catalytic activity/Vol]21 U/L13 - 39 U/LNOMS HealthcareBilirubin [Mass/Vol]0.4 mg/dL0.3 - 1.0 mg/dLNOSC HealthcareCalcium [Mass/Vol]9.9 mg/dL8.6 - 10.3 mg/dLNOSC HealthcareChloride [Moles/Vol]101 mmol/L98 - 107 mmol/LNOMS HealthcareCO2 [Moles/Vol]30.4 mmol/L21.0 - 31.0 mmol/LNOMS HealthcareCreatinine (U) [Mass/Vol] 0.99 mg/dL0.60 - 1.20 mg/dLNOSC HealthcareCREATININE CLR CALC QFIBOXMJ94.73NOMS HealthcareESTIMATED GFRmL/MinNOMS HealthcareGlobulin (S) [Mass/Vol]2.6 g/dLNOMS HealthcareGlucose [Mass/Vol]101 mg/tADlku09 - 100 mg/dLCEDAR CITY HOSPITAL HealthcareComment on above:Random Glucose Reference Range is [...] mmol/LNOMS HealthcareUrea nitrogen [Mass/Vol]18 mg/dL7 - 25 mg/dLNONorthwest Medical CenterNOSC HealthcareCreatinine [Mass/volume] in Serum or PlasmaOrdered By: Josseline Simpson on 86-13-8731Qmnxjtnstk [Mass/Vol]Creatinine [Mass/volume] in Serum or Plasma 0.60-1.20White HospitalCreatinine [Mass/Vol]0.99 mg/dLNormal 0.60-1.20White HospitalComment on above:Performed By: #### CMP ####[facility] [address] [place] [address] Eosinophils Auto (Bld) [#/Vol]Ordered By: tara Glez on 12-31-2024 Eosinophils (Bld) [#/Vol]Automated eosinophil count0.0-0.45White HospitalEosinophils [#/volume] in Blood by Automated countOrdered By: tara Glez on 25-46-4252Wyczzpeufeg (Bld) [#/Vol]0.1 10*3/uLNormal0.0-0.45 White HospitalComment on above:Performed By: #### CBC ####[facility] [address] Eosinophils/100 WBC Auto (Bld)Ordered By: tara Glez on 12-31-2024 Eosinophils/100 WBC (Bld)Automated eosinophil %.White HospitalEosinophils/100 leukocytes in Blood by Automated countOrdered By: tara Hooker on 20-90-0118Xlggcgcdarf/100 WBC (Bld)2.0 %Normal.White HospitalComment on above:Performed By: #### CBC ####[address]Erythrocyte distribution width Auto (RBC) [Ratio]Ordered By: tara Glez on 79-54-5828Xhurpcrouub distribution width (RBC) [Ratio]Erythrocyte distribution width [Ratio] by Automated reudzNmhy60.9-15.3FThe Bellevue HospitalErythrocyte distribution width [Ratio] by Automated countOrdered By: tara Glez on 91-02-4066Ocikmilrjje distribution width (RBC) [Ratio]17.0 %High11.9-15.3 White HospitalComment on above:Performed By: #### CBC ####[address] Erythrocytes [#/volume] in Blood by Automated countOrdered By: tara Glez on 43-12-2149XIA (Bld) [#/Vol]2.98 10*6/uLLow3.60-5.00White HospitalComment on above:Performed By: #### CBC ####[address]Globulin Calc (S) [Mass/Vol]Ordered By: Josseline Simpson on 81-67-5788Apqrfvgm (S) [Mass/Vol]Serum globulin measurement by calculation (mass/volume)White HospitalGlucose [Mass/volume] in Serum or PlasmaOrdered By: Josseline Simpson on 74-37-0838Rnzjmxc [Mass/Vol]Glucose [Mass/volume] in Serum or SmqpuuFmaq29-693NtuinxxznWhite Hospital Comment on above:ADA recommended reference rangeRandom Glucose Reference Range is dependent on time and content of last meal. Glucose of more than 200 mg/dL in a nonstressed, ambulatory subject supports the diagnosisof Diabetes Mellitus. Glucose [Mass/Vol]101 mg/sUTbkp85-566AafvcgjitWhite HospitalComment on above:ADA recommended reference rangeRandom Glucose Reference [...] ADA recommended reference rangePerformed By: #### CMP ####[place] [id number] [facility] [[email or web address]]Hematocrit Auto (Bld) [Volume fraction]Ordered By: tara Glez on 43-40-5541Acdqbejbdw (Bld) [Volume fraction]Hematocrit [Volume Fraction] of Blood by Automated nsgroGcv13.0-46.4FThe Bellevue HospitalHematocrit [Volume Fraction] of Blood by Automated countOrdered By: tara Glez on 95-72-0583Egbzejdped (Bld) [Volume fraction]30.7 %Low34.0-46.4 White HospitalComment on above:Performed By: #### CBC ####[place] [id number] [facility] [[email or web address]] Hemoglobin [Mass/volume] in BloodOrdered By: tara Glez on 12-31-2024 Hemoglobin (Bld) [Mass/Vol]Hemoglobin [Mass/volume] in LuvymQvt19.8-15.4 White HospitalHemoglobin (Bld) [Mass/Vol]10.6 g/dLLow 11.8-15.4FThe Bellevue HospitalComment on above:Performed By: #### CBC ####[place] [id number] [facility] [[email or web address]] Leukocytes [#/volume] corrected for nucleated erythrocytes in Blood by Automated counOrdered By: Kush Glez on 89-20-5167KZR corrected for nucl RBC Auto (Bld) [#/Vol]Leukocytes [#/volume] corrected for nucleated erythrocytes in Blood by Automated coun3.8-11.6FThe Bellevue HospitalWBC corrected for nucl RBC Auto (Bld) [#/Vol]5.3 10*3/uL3.8-11.6FThe Bellevue Hospital Leukocytes [#/volume] in Blood by Automated countOrdered By: tara Glez on 66-53-8279BFO (Bld) [#/Vol]5.3 10*3/uLNormal3.8-11.6FThe Bellevue HospitalComment on above:Performed By: #### CBC ####[address] [place] [address] USALymphocytes Auto (Bld) [#/Vol]Ordered By: tara Glez on 83-65-8942Dhggyiervcu (Bld) [#/Vol]Lymphocytes [#/volume] in Blood by Automated count1.00-4.8White HospitalLymphocytes [#/volume] in Blood by Automated countOrdered By: tara Glez on 12-31-2024 Lymphocytes (Bld) [#/Vol]1.9 10*3/uLNormal1.00-4.8White HospitalComment on above:Performed By: #### CBC ####[address] [address] USALymphocytes/100 WBC Auto (Bld)Ordered By: tara Glez on 60-37-6178Whlnibheyty/100 WBC (Bld)Lymphocytes/100 leukocytes in Blood by Automated count.[facility] Lymphocytes/100 leukocytes in Blood by Automated countOrdered By: tara Glez on 64-23-5799Gmnxhuuxmou/100 WBC (Bld)35.1 %Normal.White HospitalComment on above:Performed By: #### CBC ####[address] [address] [facility] Auto (RBC) [Entitic mass]Ordered By: Kush Glez on 43-50-8531ELE (RBC) [Entitic mass]MCH [Entitic mass] by Automated agpjbPsmj21.7-34.3FThe Bellevue HospitalMC [Entitic mass] by Automated countOrdered By: Kush Glez on 18-27-0800GHT (RBC) [Entitic mass]35.7 hrJugg43.7-34.3FThe Bellevue HospitalComment on above: Performed By: #### CBC ####[place] [address] [place] [id number] [facility] Auto (RBC) [Mass/Vol]Ordered By: tara Al-Iselaraomero on 68-80-7801PODH (RBC) [Mass/Vol]MCHC [Mass/volume] by Automated count 32.0-35.0[facility] (RBC) [Mass/Vol]34.7 g/dL 32.0-35.0[facility] Auto (RBC) [Entitic vol]Ordered By: tara Al-Iselaraomero on 26-87-3695EVM (RBC) [Entitic vol]MCV [Entitic volume] by Automated silvwZdnq95-385RlrxwqegoCleveland Clinic Avon HospitalV [Entitic volume] by Automated countOrdered By: tara Bales-Nhung on 79-69-7140OTK (RBC) [Entitic vol]102.9 eEUmfl50-682CanqqclmbWhite HospitalComment on above: Performed By: #### CBC ####[place] [address] USAMonocytes Auto (Bld) [#/Vol]Ordered By: tara Bales- Nhung on 12-43-1357Thlcawvgg (Bld) [#/Vol]Automated blood monocyte count 0.0-0.8White HospitalMonocytes [#/volume] in Blood by Automated countOrdered By: tara Al-Iselaraomero on 17-19-2177Nxbtejqtf (Bld) [#/Vol] 0.4 10*3/uLNormal0.0-0.8White HospitalComment on above: Performed By: #### CBC ####[place] [id number] USAMonocytes/100 WBC Auto (Bld)Ordered By: tara Bales- Nhung on 76-47-7399Fmwutsujb/100 WBC (Bld)Automated monocyte %.White HospitalMonocytes/100 leukocytes in Blood by Automated count Ordered By: tara Glez on 92-38-3790Atnllztxz/100 WBC (Bld)7.6 %Normal. White HospitalComment on above:Performed By: #### CBC ####[address] [place] [address] [facility] [[email or web address]] Neutrophils Auto (Bld) [#/Vol]Ordered By: tara Glez on 12-31-2024 Neutrophils (Bld) [#/Vol]Neutrophils [#/volume] in Blood by Automated count 1.8-7.7FThe Bellevue HospitalNeutrophils [#/volume] in Blood by Automated countOrdered By: tara Glez on 35-14-9712Qwctbtqdpja (Bld) [#/Vol] 2.9 10*3/uLNormal1.8-7.7FThe Bellevue HospitalComment on above: Performed By: #### CBC ####[place] [id number] USANeutrophils/100 WBC Auto (Bld)Ordered By: [facility] Shira Hooker on 11-25-2487Qbdfmsuvqvj/100 WBC (Bld)Automated neutrophil %.White HospitalNeutrophils/100 leukocytes in Blood by Automated count Ordered By: tara Glez on 84-74-3527Dogvpankbhj/100 WBC (Bld)54.6 %Normal. White HospitalComment on above:Performed By: #### CBC ####[place] [address] USANo Panel InformationOrdered By: Josseline Simpson on 49-96-7534Ommkzvckf GFR (CKD-EPI)> 60.0 mL/MinWhite HospitalPharmacy Creatinine Clearance (Chem 53.73White HospitalNucleated erythrocytes [Presence] in Blood by Automated countOrdered By: tara Glez on 47-14-7664Sgohfltmy RBC Auto Ql (Bld)Nucleated erythrocytes [Presence] in Blood by Automated count0-0.5 White HospitalNucleated RBC Auto Ql (Bld)0.3 /100{WBC}0-0.5 White HospitalPlatelet mean volume Auto (Bld) [Entitic vol] Ordered By: Kush Glez on 50-20-8184Wjondrbu mean volume (Bld) [Entitic vol] Platelet mean volume [Entitic volume] in Blood by Automated count6.3-10.7 White HospitalPlatelet mean volume [Entitic volume] in Blood by Automated countOrdered By: Kush Glez on 96-95-0946Asvlpmbf mean volume (Bld) [Entitic vol]8.0 fLNormal6.3-10.7FThe Bellevue HospitalComment on above:Performed By: #### CBC ####[address] [address] USAPlatelets Auto (Bld) [#/Vol]Ordered By: Kush Hooker on 09-53-9612Mbkmxmhwr (Bld) [#/Vol]Platelets [#/volume] in Blood by Automated ecgyb099-245YaajszxldWhite HospitalPlatelets [#/volume] in Blood by Automated countOrdered By: Kush Glez on 95-66-3069Eythzmilr (Bld) [#/Vol]222 10*3/aURefcrs434-816OjwazubhbWhite HospitalComment on above:Performed By: #### CBC ####[address] [address] USAPotassium [Moles/volume] in Serum or PlasmaOrdered By: Josseline Simpson on 02-83-9014Djwuqptjd [Moles/Vol]Potassium [Moles/volume] in Serum or Plasma3.5-5.1FThe Bellevue HospitalPotassium [Moles/Vol]4.0 mmol/LNormal3.5-5.1FThe Bellevue HospitalComment on above:Performed By: #### CMP ####[address] [address] USAProtein [Mass/volume] in Serum or PlasmaOrdered By: Josseline Simpson on 71-28-5900Agloqsc [Mass/Vol]Protein [Mass/volume] in Serum or Plasma6.4-8.9 White HospitalProtein [Mass/Vol]6.6 g/dLNormal6.4-8.9 White HospitalComment on above:Performed By: #### CMP ####[place] [address] USARBC Auto (Bld) [#/Vol]Ordered By: Kush Glez on 87-89-6816LBG (Bld) [#/Vol] Erythrocytes [#/volume] in Blood by Automated countLow3.60-5.00Veterans Health Administrationerum globulin measurement by calculation (mass/volume) Ordered By: Josseline Simpson on 56-85-9164Kzivghqo (S) [Mass/Vol]2.6 g/dLNormal White HospitalComment on above:Performed By: #### CMP ####[place] [address] USASerum or plasma albumin/globulin mass ratioOrdered By: Josseline Simpson on 12-31-2024 Albumin/Globulin [Mass ratio]Serum or plasma albumin/globulin mass ratio White HospitalAlbumin/Globulin [Mass ratio]1.5 {ratio}Normal White HospitalComment on above:Performed By: #### CMP ####[place] [id number] USASerum or plasma anion gap determinationOrdered By: Josseline Simpson on 90-52-5389Rrscc gap [Moles/Vol]Serum or plasma anion gap determination6.0-15.0White HospitalAnion gap [Moles/Vol]11.6 mmol/LNormal6.0-15.0White HospitalComment on above:Performed By: #### CMP ####[place] [address] USASodium [Moles/volume] in Serum or PlasmaOrdered By: Josseline Simpson on 87-39-0379Cpzdck [Moles/Vol]Sodium [Moles/volume] in Serum or Gbowga923-568XlqqpthobVeterans Health Administrationodium [Moles/Vol]139 mmol/LKbjbzp270-967LifbfrqcsWhite HospitalComment on above:Performed By: #### CMP ####[facility] [address] [place] [address] USAUrea nitrogen [Mass/volume] in Serum or Plasma Ordered By: Josseline Simpson on 70-52-3622Dscc nitrogen [Mass/Vol]Urea nitrogen [Mass/volume] in Serum or Plasma7White HospitalUrea nitrogen [Mass/Vol]18 mg/dLNormal03-28White HospitalComment on above:Performed By: #### CMP ####[facility] [address] [place] [address] USAWBC Auto (Bld) [#/Vol]Ordered By: Kush Glez on 50-67-3224JRD (Bld) [#/Vol]Leukocytes [#/volume] in Blood by Automated count 3.8-11.6FThe Bellevue HospitalAlanine aminotransferase [Enzymatic activity/volume] in Serum or PlasmaOrdered By: Kush Glez on 05-18-6482PIW [Catalytic activity/Vol]Alanine aminotransferase [Enzymatic activity/volume] in Serum or Plasma7White HospitalAlbumin [Mass/volume] in Serum or Plasma by Bromocresol green (BCG) dye binding methoOrdered By: Kush Hooker on 62-97-7171Qboviiy BCG dye [Mass/Vol]Albumin [Mass/volume] in Serum or Plasma by Bromocresol green (BCG) dye binding metho3.5-5.7FThe Bellevue HospitalAlkaline phosphatase [Enzymatic activity/volume] in Serum or PlasmaOrdered By: Kush Glez on 98-97-4027TKT [Catalytic activity/Vol] Alkaline phosphatase [Enzymatic activity/volume] in Serum or Mvmjmg80-066 White HospitalAspartate aminotransferase [Enzymatic activity/volume] in Serum or PlasmaOrdered By: Kush Glez on 63-10-7936PWR [Catalytic activity/Vol]Aspartate aminotransferase [Enzymatic activity/volume] in Serum or Bpeiwy72-99ZjlfdjvllWhite HospitalBasophils Auto (Bld) [#/Vol]Ordered By: Kush Glez on 33-33-7817Idakqcseb (Bld) [#/Vol]Automated basophil count0.0-0.2FThe Bellevue HospitalBasophils/100 WBC Auto (Bld)Ordered By: Kush Glez on 81-56-9765Uhucrjvwj/100 WBC (Bld)Automated basophil %.White HospitalBilirubin.total [Mass/volume] in Serum or PlasmaOrdered By: Kush Glez on 55-47-0415Itikvsnrq [Mass/Vol] Bilirubin.total [Mass/volume] in Serum or Plasma0.3-1.0White HospitalCalcium [Mass/volume] in Serum or PlasmaOrdered By: Kush Glez on 96-89-6361Ncowbtd [Mass/Vol]Calcium [Mass/volume] in Serum or Plasma8.6-10.3 White HospitalCarbon dioxide, total [Moles/volume] in Serum or PlasmaOrdered By: Kush Glez on 90-97-0767UG7 [Moles/Vol]Carbon dioxide, total [Moles/volume] in Serum or Aeeufr03.0-31.0White HospitalChloride [Moles/volume] in Serum or PlasmaOrdered By: tara Glez on 68-87-1224Tmzxiiho [Moles/Vol]Chloride [Moles/volume] in Serum or Cikejt33-525 White HospitalComplete Blood Count Auto Diffon 12-24-2024 Basophils (Bld) [#/Vol]0.0 10*3/uLNormal0.0-0.2[facility] Comment on above:Result Comment: PERFORMED BY:[facility] [place], [place] [id number] MEDICAL DIRECTORALTHEA MEADOWS M.D.Performed By: #### CBC ####[facility] [place] [address] USABasophils/100 WBC (Bld)0.4 % Normal.The [facility] Health Physician GroupComment on above:Performed By: #### CBC ####[place] [address] [place] Eosinophils (Bld) [#/Vol]0.1 10*3/uLNormal0.0-0.45[facility] Comment on above:Performed By: #### CBC ####[address] [address] USAEosinophils/100 WBC (Bld)1.7 %Normal.The [facility] Health Physician GroupComment on above:Performed By: #### CBC ####[place] [address] USAErythrocyte distribution width (RBC) [Ratio]16.7 %High11.9-15.3[facility] Comment on above:Performed By: #### CBC ####[place] [address] USAHematocrit (Bld) [Volume fraction]32.6 %Low 34.0-46.4The [facility] Health Physician GroupComment on above:Performed By: #### CBC ####[place] [address] [place] Hemoglobin (Bld) [Mass/Vol]11.1 g/dLLow11.8-15.4[facility] Comment on above:Performed By: #### CBC ####[place] [address] USALymphocytes (Bld) [#/Vol]1.5 10*3/uLNormal 1.00-4.8The [facility] Health Physician GroupComment on above:Performed By: #### CBC ####[place] [id number] [place] Lymphocytes/100 WBC (Bld)26.6 %Normal.The [facility] Health Physician GroupComment on above:Performed By: #### CBC ####[place] [address] USAMCH (RBC) [Entitic mass]34.9 tsBsit73.7-34.3The [facility] Health Physician GroupComment on above:Performed By: #### CBC ####[address] [address] USAMCV (RBC) [Entitic vol]102.1 iBLree23-801Dev [facility] Physician GroupComment on above:Performed By: #### CBC ####[address] [address] USAMean Corpuscular HGB Conc34.2 g/oSOwufcw39.0-35.0The [facility] Health Physician GroupComment on above:Performed By: #### CBC ####[address] [address] USAMonocytes (Bld) [#/Vol]0.3 10*3/uLNormal0.0-0.8The [facility] Health Physician GroupComment on above:Performed By: #### CBC ####[place] [id number] USAMonocytes/100 WBC (Bld)5.1 %Normal.The [facility] Health Physician GroupComment on above:Performed By: #### CBC ####[address] [address] USANeutrophils (Bld) [#/Vol]3.6 10*3/uLNormal1.8-7.7The [facility] Health Physician GroupComment on above:Performed By: #### CBC ####[address] [address] USANeutrophils/100 WBC (Bld)66.2 %Normal.The [facility] Health Physician GroupComment on above:Performed By: #### CBC ####[address] [address] USANRBC%0.1 /100{WBC}Normal0-0.5The [facility] Health Physician GroupComment on above: Performed By: #### CBC ####[address] [address] USAPlatelet mean volume (Bld) [Entitic vol]7.9 fLNormal 6.3-10.7The [facility] Health Physician GroupComment on above:Performed By: #### CBC ####[address] [address] [place] Platelets (Bld) [#/Vol]232 10*3/hIKqsnay581-510Fjq [facility] Comment on above:Performed By: #### CBC ####[address] [address] USARBC (Bld) [#/Vol]3.19 10*6/uLLow3.60-5.00The [facility] Health Physician GroupComment on above:Performed By: #### CBC ####[address] [address] USAWBC (Bld) [#/Vol]5.5 10*3/uLNormal3.8-11.6The [facility] Health Physician GroupComment on above:Performed By: #### CBC ####[address] [address] USAComprehensive Metabolic Panelon 91-45-0034Konjmjv [Mass/Vol]4.0 g/dLNormal 3.5-5.7The [facility] Health Physician GroupComment on above:Performed By: #### CMP ####[address] [address] [place] Albumin/Globulin [Mass ratio]1.3 {ratio}NormalThe [facility] Comment on above:Performed By: #### CMP ####[address] [address] USAALP [Catalytic activity/Vol]61 U/VTbktjg56-359 The [facility] Health Physician GroupComment on above:Performed By: #### CMP ####[address] [address] USAALT [Catalytic activity/Vol]11 U/LNormal7-52The [facility] Health Physician GroupComment on above:Performed By: #### CMP ####[address] [address] USAAnion gap [Moles/Vol]11.2 mmol/LNormal6.0-15.0The [facility] Health Physician GroupComment on above:Performed By: #### CMP ####[address] [address] USAAST [Catalytic activity/Vol]18 U/SUfejcn06-74Fur [facility] Physician GroupComment on above: Performed By: #### CMP ####[address] [address] USABilirubin [Mass/Vol]0.4 mg/dLNormal0.3-1.0The [facility] Health Physician GroupComment on above:Performed By: #### CMP ####[address] [address] USACalcium [Mass/Vol]9.7 mg/dLNormal8.6-10.3The [facility] Health Physician GroupComment on above:Performed By: #### CMP ####[address] [address] USAChloride [Moles/Vol]104 mmol/PQxaezi99-149Hwa [facility] Comment on above:Performed By: #### CMP ####[address] [address] USACO2 [Moles/Vol]26.8 mmol/RSjytna98.0-31.0The [facility] Health Physician GroupComment on above:Performed By: #### CMP ####[address] [address] USACreatinine [Mass/Vol] 0.97 mg/dLNormal0.60-1.20The [facility] Health Physician GroupComment on above:Performed By: #### CMP ####[place] [address] USACreatinine Clr Calc Sgobcfra72.24NormalThNell J. [facility] Comment on above:Result Comment: PERFORMED BY:[place] [address] [place] [place], [place] [phone] MEDICAL DIRECTORALTHEA MEADOWS M.D.Performed By: #### CMP ####[address] [address] USAGFR/1.73 sq M.predicted MDRD (S/P/Bld) [Vol rate/Area]mL/min/{1.73_m2}NormalThe [facility] Comment on above:Performed By: #### CMP ####[place] [address] USAGlobulin (S) [Mass/Vol]3.0 g/dLNormalThe [facility] Health Physician GroupComment on above:Performed By: #### CMP ####[place] [address] USAGlucose [Mass/Vol]116 mg/oVGbjq53-961Uqj [facility] Physician GroupComment on above:Result Comment: Random Glucose Reference Range is dependent on time and content of last meal. Glucose of more than 200 mg/dL in a nonstressed, ambulatory subject supports the diagnosis of Diabetes Mellitus. ADA recommended reference rangePerformed By: #### CMP ####[place] [address] USAPotassium [Moles/Vol]4.0 mmol/LNormal3.5-5.1The [facility] Comment on above:Performed By: #### CMP ####[place] [address] USAProtein [Mass/Vol]7.0 g/dLNormal6.4-8.9The [facility] Health Physician GroupComment on above:Performed By: #### CMP ####[place] [address] USASodium [Moles/Vol]138 mmol/CLlvrwj106-780Arb [facility] Physician GroupComment on above:Performed By: #### CMP ####[place] [address] USAUrea nitrogen [Mass/Vol]27 mg/dLHigh7-25The [facility] Health Physician GroupComment on above:Performed By: #### CMP ####[place] [address] USACreatinine [Mass/volume] in Serum or PlasmaOrdered By: Kush Glez on 77-08-4888Eocuxibbaw [Mass/Vol]Creatinine [Mass/volume] in Serum or Plasma0.60-1.20White HospitalEosinophils Auto (Bld) [#/Vol]Ordered By: Kush Glez on 98-51-4719Oizeyknmtkw (Bld) [#/Vol] Automated eosinophil count0.0-0.45[facility] Eosinophils/100 WBC Auto (Bld)Ordered By: tara Glez on 12-24-2024 Eosinophils/100 WBC (Bld)Automated eosinophil %.White HospitalErythrocyte distribution width Auto (RBC) [Ratio]Ordered By: traa Hooker on 65-80-5752Zvuprbvpinn distribution width (RBC) [Ratio]Erythrocyte distribution width [Ratio] by Automated xeuohOleq72.9-15.3FThe Bellevue HospitalGlobulin Calc (S) [Mass/Vol]Ordered By: tara Glez on 06-88-8758Ncrcltdq (S) [Mass/Vol]Serum globulin measurement by calculation (mass/volume)White HospitalGlucose [Mass/volume] in Serum or PlasmaOrdered By: tara Glez on 90-03-2563Xpyddtg [Mass/Vol]Glucose [Mass/volume] in Serum or HbisxsUaza20-905HqspizlsgWhite Hospital Comment on above:ADA recommended reference rangeRandom Glucose Reference Range is dependent on time and content of last meal. Glucose of more than 200 mg/dL in a nonstressed, ambulatory subject supports the diagnosisof Diabetes Mellitus. Hematocrit Auto (Bld) [Volume fraction]Ordered By: Kush Glez on 12-24-2024 Hematocrit (Bld) [Volume fraction]Hematocrit [Volume Fraction] of Blood by Automated mewplJhq87.0-46.4FThe Bellevue HospitalHemoglobin [Mass/volume] in BloodOrdered By: tara Glez on 16-42-3166Xhhwxlqccj (Bld) [Mass/Vol]Hemoglobin [Mass/volume] in PukrtAfm81.8-15.4FThe Bellevue HospitalLeukocytes [#/volume] corrected for nucleated erythrocytes in Blood by Automated counOrdered By: Kush Glez on 83-22-9430ERE corrected for nucl RBC Auto (Bld) [#/Vol]Leukocytes [#/volume] corrected for nucleated erythrocytes in Blood by Automated coun3.8-11.6FThe [facility] Hospital Lymphocytes Auto (Bld) [#/Vol]Ordered By: Kush Glez on 12-24-2024 Lymphocytes (Bld) [#/Vol]Lymphocytes [#/volume] in Blood by Automated count 1.00-4.8White HospitalLymphocytes/100 WBC Auto (Bld)Ordered By: Kush Glez on 82-54-4100Tsunixxzudk/100 WBC (Bld)Lymphocytes/100 leukocytes in Blood by Automated count.White HospitalMCH Auto (RBC) [Entitic mass]Ordered By: Kush Glez on 88-91-7040XSJ (RBC) [Entitic mass]MCH [Entitic mass] by Automated zkmsyQtwk70.7-34.3FThe Bellevue HospitalMCHC Auto (RBC) [Mass/Vol]Ordered By: Kush Glez on 12-24-2024 MCHC (RBC) [Mass/Vol]MCHC [Mass/volume] by Automated count32.0-35.0White HospitalMCV Auto (RBC) [Entitic vol]Ordered By: Kush Glez on 13-75-5030INP (RBC) [Entitic vol]MCV [Entitic volume] by Automated countHigh 80-100White HospitalMonocytes Auto (Bld) [#/Vol]Ordered By: Kush Glez on 77-71-8859Lxgvmdovt (Bld) [#/Vol]Automated blood monocyte count0.0-0.8White HospitalMonocytes/100 WBC Auto (Bld)Ordered By: Kush Glez on 43-59-7926Rmveweaqn/100 WBC (Bld)Automated monocyte %. White HospitalNeutrophils Auto (Bld) [#/Vol]Ordered By: Kush Glez on 65-01-8005Tbbumwjssjs (Bld) [#/Vol]Neutrophils [#/volume] in Blood by Automated count1.8-7.7FThe Bellevue HospitalNeutrophils/100 WBC Auto (Bld)Ordered By: Kush Glez on 50-75-0150Njhfxaospyv/100 WBC (Bld) Automated neutrophil %.White HospitalNo Panel Information Ordered By: Kush Glez on 84-29-6339Kvgluwumx GFR (CKD-EPI)> 60.0 mL/Min [facility] HospitalPharmacy Creatinine Clearance (Chem54.24 White HospitalNucleated erythrocytes [Presence] in Blood by Automated countOrdered By: Kush Glez on 39-17-2595Zbpbgfciz RBC Auto Ql (Bld)Nucleated erythrocytes [Presence] in Blood by Automated count0-0.5FThe Bellevue HospitalPlatelet mean volume Auto (Bld) [Entitic vol]Ordered By: Kush Glez on 09-51-6966Vzcnbdpw mean volume (Bld) [Entitic vol]Platelet mean volume [Entitic volume] in Blood by Automated count6.3-10.7FThe Bellevue HospitalPlatelets Auto (Bld) [#/Vol]Ordered By: Kush Glez on 45-26-3012Qduyfdrhv (Bld) [#/Vol]Platelets [#/volume] in Blood by Automated jceqb572-135DcyuzjmxwWhite HospitalPotassium [Moles/volume] in Serum or PlasmaOrdered By: Kush Glez on 79-61-1788Ceuuwvbef [Moles/Vol]Potassium [Moles/volume] in Serum or Plasma3.5-5.1FThe Bellevue HospitalProtein [Mass/volume] in Serum or PlasmaOrdered By: Kush Glez on 96-95-9130Fdyjvmt [Mass/Vol]Protein [Mass/volume] in Serum or Plasma6.4-8.9White HospitalRBC Auto (Bld) [#/Vol]Ordered By: Kush Glez on 93-20-6909HIO (Bld) [#/Vol]Erythrocytes [#/volume] in Blood by Automated countLow3.60-5.00 [facility] Health Administrationerum or plasma albumin/globulin mass ratio Ordered By: Kush Glez on 50-00-7196Qquvhuq/Globulin [Mass ratio]Serum or plasma albumin/globulin mass ratioVeterans Health Administrationerum or plasma anion gap determinationOrdered By: Kush Glez on 50-95-3048Loihy gap [Moles/Vol]Serum or plasma anion gap determination6.0-15.0[facility] Health Administrationodium [Moles/volume] in Serum or PlasmaOrdered By: Kush Glez on 06-66-9276Wdobpf [Moles/Vol]Sodium [Moles/volume] in Serum or Mzuqkq855-439 White HospitalUrea nitrogen [Mass/volume] in Serum or Plasma Ordered By: Kush Glez on 61-69-0786Gixw nitrogen [Mass/Vol]Urea nitrogen [Mass/volume] in Serum or PlasmaHigh7-25White HospitalWBC Auto (Bld) [#/Vol]Ordered By: Kush Glez on 19-06-6566LED (Bld) [#/Vol] Leukocytes [#/volume] in Blood by Automated count3.8-11.6FThe Bellevue HospitalAlanine aminotransferase [Enzymatic activity/volume] in Serum or PlasmaOrdered By: Kush Glez on 07-83-4368KSL [Catalytic activity/Vol] Alanine aminotransferase [Enzymatic activity/volume] in Serum or Plasma7-52 White HospitalAlbumin [Mass/volume] in Serum or Plasma by Bromocresol green (BCG) dye binding methoOrdered By: Kush Glez on 03-84-2109Chkkleb BCG dye [Mass/Vol]Albumin [Mass/volume] in Serum or Plasma by Bromocresol green (BCG) dye binding metho3.5-5.7FThe Bellevue HospitalAlkaline phosphatase [Enzymatic activity/volume] in Serum or PlasmaOrdered By: Kush Glez on 92-56-9162TCY [Catalytic activity/Vol]Alkaline phosphatase [Enzymatic activity/volume] in Serum or Tybwgi59-452XriuiqdgrWhite HospitalAspartate aminotransferase [Enzymatic activity/volume] in Serum or Plasma Ordered By: Ksuh Glez on 67-87-3039YKY [Catalytic activity/Vol]Aspartate aminotransferase [Enzymatic activity/volume] in Serum or Zlwter95-44SbrcdiixyWhite HospitalBasophils Auto (Bld) [#/Vol]Ordered By: [facility] on 88-57-2551Cytksfadc (Bld) [#/Vol]Automated basophil count0.0-0.2FThe Bellevue HospitalBasophils/100 WBC Auto (Bld)Ordered By: tara Glez on 17-68-0689Husfvmcke/100 WBC (Bld)Automated basophil %.White HospitalBilirubin.total [Mass/volume] in Serum or PlasmaOrdered By: [facility] on 50-79-2774Qbnwhfsjz [Mass/Vol]Bilirubin.total [Mass/volume] in Serum or Plasma0.3-1.0White HospitalCalcium [Mass/volume] in Serum or PlasmaOrdered By: [facility] on 47-98-3912Lzbqlwk [Mass/Vol]Calcium [Mass/volume] in Serum or Plasma8.6-10.3FThe Bellevue HospitalCarbon dioxide, total [Moles/volume] in Serum or PlasmaOrdered By: [facility] on 43-66-4226KY2 [Moles/Vol]Carbon dioxide, total [Moles/volume] in Serum or Plasma 21.0-31.0White HospitalChloride [Moles/volume] in Serum or PlasmaOrdered By: [facility]Od[facility] on 72-94-4468Xpmkpaxf [Moles/Vol]Chloride [Moles/volume] in Serum or Jjanhs15-992XfzlbahbpWhite HospitalComplete Blood Count Auto Diffon 59-40-7434Olpgukhbt (Bld) [#/Vol]0.0 10*3/uLNormal 0.0-0.2The [facility] Health Physician GroupComment on above:Result Comment: PERFORMED BY:[facility] [place], [place] [phone] MEDICAL DIRECTORALTHEA MEADOWS M.D.Performed By: #### CBC ####[place] [address] [place] [address] [facility] [[email or web address]] Basophils/100 WBC (Bld)0.7 %Normal.The [facility] Health Physician GroupComment on above:Performed By: #### CBC ####[place] [address] USAEosinophils (Bld) [#/Vol]0.1 10*3/uLNormal0.0-0.45 The [facility] Health Physician GroupComment on above:Performed By: #### CBC ####[place] [address] [place] Eosinophils/100 WBC (Bld)2.3 %Normal.The [facility] Health Physician GroupComment on above:Performed By: #### CBC ####[place] [address] USAErythrocyte distribution width (RBC) [Ratio]16.8 % High11.9-15.3The [facility] Health Physician GroupComment on above:Performed By: #### CBC ####[place] [address] [place] Hematocrit (Bld) [Volume fraction]33.8 %Low34.0-46.4The [facility] Health Physician GroupComment on above:Performed By: #### CBC ####[place] [address] USAHemoglobin (Bld) [Mass/Vol]11.5 g/dL Low11.8-15.4The [facility] Health Physician GroupComment on above:Performed By: #### CBC ####[place] [address] [place] Lymphocytes (Bld) [#/Vol]1.8 10*3/uLNormal1.00-4.8[facility] Comment on above:Performed By: #### CBC ####[place] [address] USALymphocytes/100 WBC (Bld)39.3 %Normal.The [facility] Health Physician GroupComment on above:Performed By: #### CBC ####[place] [address] USAMCH (RBC) [Entitic mass]35.3 yuZuss98.7-34.3The [facility] Health Physician GroupComment on above:Performed By: #### CBC ####[address] [address] USAMCV (RBC) [Entitic vol]103.5 oFVqmm90-950Nal [facility] Comment on above:Performed By: #### CBC ####[place] [id number] USAMean Corpuscular HGB Conc34.1 g/dLNormal 32.0-35.0The [facility] Health Physician GroupComment on above:Performed By: #### CBC ####[place] [id number] [place] Monocytes (Bld) [#/Vol]0.4 10*3/uLNormal0.0-0.8[facility] Comment on above:Performed By: #### CBC ####[place] [address] USAMonocytes/100 WBC (Bld)8.7 %Normal.The [facility] Health Physician GroupComment on above:Performed By: #### CBC ####[address] [address] USANeutrophils (Bld) [#/Vol]2.3 10*3/uLNormal1.8-7.7The [facility] Health Physician GroupComment on above: Performed By: #### CBC ####[place] [address] USANeutrophils/100 WBC (Bld)49.0 %Normal.The [facility] Health Physician GroupComment on above:Performed By: #### CBC ####[place] [address] USANRBC%0.1 /100{WBC}Normal0-0.5 The [facility] Health Physician GroupComment on above:Performed By: #### CBC ####[place] [address] [place] Platelet mean volume (Bld) [Entitic vol]7.7 fLNormal6.3-10.7The [facility] Health Physician GroupComment on above:Performed By: #### CBC ####[address] [address] USAPlatelets (Bld) [#/Vol]263 10*3/nHIzmsza525-697Fru [facility] Physician GroupComment on above:Performed By: #### CBC ####[address] [address] USARBC (Bld) [#/Vol]3.26 10*6/uLLow3.60-5.00The [facility] Health Physician GroupComment on above:Performed By: #### CBC ####[address] [address] USAWBC (Bld) [#/Vol]4.7 10*3/uLNormal3.8-11.6The [facility] Health Physician GroupComment on above:Performed By: #### CBC ####[place] [id number] USAComprehensive Metabolic Panelon 83-33-5492Hfpallc [Mass/Vol]4.4 g/dLNormal3.5-5.7The [facility] Health Physician GroupComment on above:Performed By: #### CMP ####[place] [address] USAAlbumin/Globulin [Mass ratio] 1.6 {ratio}NormalThe [facility] Health Physician GroupComment on above:Performed By: #### CMP ####[place] [id number] USAALP [Catalytic activity/Vol]61 U/BKweuwk10-136Usp [facility] Comment on above:Performed By: #### CMP ####[address] [address] USAALT [Catalytic activity/Vol]13 U/LNormal7-52 The [facility] Health Physician GroupComment on above:Performed By: #### CMP ####[place] [address] USAAnion gap [Moles/Vol]10.4 mmol/LNormal6.0-15.0The [facility] Health Physician GroupComment on above:Performed By: #### CMP ####[address] [address] USAAST [Catalytic activity/Vol]22 U/GCpbpdz66-68Cna [facility] Physician GroupComment on above:Performed By: #### CMP ####[address] [address] USABilirubin [Mass/Vol] 0.4 mg/dLNormal0.3-1.0The [facility] Health Physician GroupComment on above:Performed By: #### CMP ####[address] [address] USACalcium [Mass/Vol]9.8 mg/dLNormal8.6-10.3The [facility] Comment on above:Performed By: #### CMP ####[address] [address] USAChloride [Moles/Vol]101 mmol/IXjddbb76-607Ymf [facility] Physician GroupComment on above:Performed By: #### CMP ####[address] [address] USACO2 [Moles/Vol]29.5 mmol/RTlcgwh46.0-31.0The [facility] Health Physician GroupComment on above:Performed By: #### CMP ####[address] [address] USACreatinine [Mass/Vol]1.12 mg/dLNormal0.60-1.20The [facility] Comment on above:Performed By: #### CMP ####[address] [address] USACreatinine Clr Calc Wedripea55.81NormalThe [facility] Health Physician GroupComment on above:Result Comment: PERFORMED BY:[place] [address] [address] [place], [place] [id number] MEDICAL DIRECTORALTHEA MEADOWS M.D.Performed By: #### CMP ####[address] [address] USAEstimated GFR55.254 mL/MinNormHollywood Medical Center Physician GroupComment on above:Performed By: #### CMP ####[place] [address] [place] Globulin (S) [Mass/Vol]2.7 g/dLNoAtrium Health Huntersville Physician GroupComment on above:Performed By: #### CMP ####[place] [address] USAGlucose [Mass/Vol]109 mg/vCHyyo37-075Qst [facility] Physician GroupComment on above:Result Comment: Random Glucose Reference Range is dependent on time and content of last meal. Glucose of more than 200 mg/dL in a nonstressed, ambulatory subject supports the diagnosis of Diabetes Mellitus. ADA recommended reference rangePerformed By: #### CMP ####[place] [address] USAPotassium [Moles/Vol]3.9 mmol/LNormal3.5-5.1The [facility] Health Physician GroupComment on above:Performed By: #### CMP ####[place] [id number] USAProtein [Mass/Vol]7.1 g/dLNormal6.4-8.9The [facility] Physician GroupComment on above:Performed By: #### CMP ####[place] [address] USASodium [Moles/Vol]137 mmol/VEhyfja589-830Tab [facility] Physician GroupComment on above:Performed By: #### CMP ####[place] [id number] USAUrea nitrogen [Mass/Vol]27 mg/dLHigh7-25The [facility] Health Physician GroupComment on above: Performed By: #### CMP ####[place] [id number] USACreatinine [Mass/volume] in Serum or PlasmaOrdered By: Kush Glez on 02-79-8318Lpiilhapdk [Mass/Vol]Creatinine [Mass/volume] in Serum or Plasma0.60-1.20White HospitalEosinophils Auto (Bld) [#/Vol]Ordered By: Kush Glez on 37-13-2868Fpzgfzzwlpj (Bld) [#/Vol] Automated eosinophil count0.0-0.45[facility] Eosinophils/100 WBC Auto (Bld)Ordered By: tara Glez on 12-17-2024 Eosinophils/100 WBC (Bld)Automated eosinophil %.White HospitalErythrocyte distribution width Auto (RBC) [Ratio]Ordered By: tara Hooker on 67-48-6194Gobzswujlzt distribution width (RBC) [Ratio]Erythrocyte distribution width [Ratio] by Automated vgszfEtfr35.9-15.3FThe Bellevue HospitalGlobulin Calc (S) [Mass/Vol]Ordered By: tara Glez on 86-75-2526Eacskcsn (S) [Mass/Vol]Serum globulin measurement by calculation (mass/volume)White HospitalGlucose [Mass/volume] in Serum or PlasmaOrdered By: tara Glez on 99-57-1287Idnnqxv [Mass/Vol]Glucose [Mass/volume] in Serum or MopxchMpui93-605TslhlhrfxWhite Hospital Comment on above:ADA recommended reference rangeRandom Glucose Reference Range is dependent on time and content of last meal. Glucose of more than 200 mg/dL in a nonstressed, ambulatory subject supports the diagnosisof Diabetes Mellitus. Hematocrit Auto (Bld) [Volume fraction]Ordered By: Kush Glez on 12-17-2024 Hematocrit (Bld) [Volume fraction]Hematocrit [Volume Fraction] of Blood by Automated vtybbZtn54.0-46.4FThe Bellevue HospitalHemoglobin [Mass/volume] in BloodOrdered By: tara Glez on 37-77-5700Rqakawexoh (Bld) [Mass/Vol]Hemoglobin [Mass/volume] in MnilxXcq29.8-15.4FThe Bellevue HospitalLeukocytes [#/volume] corrected for nucleated erythrocytes in Blood by Automated counOrdered By: Kush Glez on 91-45-0834COG corrected for nucl RBC Auto (Bld) [#/Vol]Leukocytes [#/volume] corrected for nucleated erythrocytes in Blood by Automated coun3.8-11.6FThe [facility] Hospital Lymphocytes Auto (Bld) [#/Vol]Ordered By: Kush Glez on 12-17-2024 Lymphocytes (Bld) [#/Vol]Lymphocytes [#/volume] in Blood by Automated count 1.00-4.8White HospitalLymphocytes/100 WBC Auto (Bld)Ordered By: Kush Glez on 65-99-8945Qsdnpjfcqic/100 WBC (Bld)Lymphocytes/100 leukocytes in Blood by Automated count.White HospitalMCH Auto (RBC) [Entitic mass]Ordered By: Kush Glez on 89-39-2769FNP (RBC) [Entitic mass]MCH [Entitic mass] by Automated komahEfbq71.7-34.3FThe Bellevue HospitalMCHC Auto (RBC) [Mass/Vol]Ordered By: Kush Glez on 12-17-2024 MCHC (RBC) [Mass/Vol]MCHC [Mass/volume] by Automated count32.0-35.0White HospitalMCV Auto (RBC) [Entitic vol]Ordered By: Kush Glez on 07-00-8672ALF (RBC) [Entitic vol]MCV [Entitic volume] by Automated countHigh 80-100White HospitalMonocytes Auto (Bld) [#/Vol]Ordered By: Kush Glez on 75-35-9369Fcqxkzztj (Bld) [#/Vol]Automated blood monocyte count0.0-0.8White HospitalMonocytes/100 WBC Auto (Bld)Ordered By: Kush Glez on 30-08-1169Fzkzizhwy/100 WBC (Bld)Automated monocyte %. White HospitalNeutrophils Auto (Bld) [#/Vol]Ordered By: Kush Glez on 49-66-2530Slgtcjmbnut (Bld) [#/Vol]Neutrophils [#/volume] in Blood by Automated count1.8-7.7FThe Bellevue HospitalNeutrophils/100 WBC Auto (Bld)Ordered By: Kush Glez on 47-64-8637Ydkpjbwavvs/100 WBC (Bld) Automated neutrophil %.White HospitalNo Panel Information Ordered By: Kush Glez on 82-29-4579Qrhmdcvyj GFR (CKD-EPI)55.254 mL/Min [facility] HospitalPharmacy Creatinine Clearance (Chem47.81 White HospitalNucleated erythrocytes [Presence] in Blood by Automated countOrdered By: Kush Glez on 18-44-3941Xhwdjlvgi RBC Auto Ql (Bld)Nucleated erythrocytes [Presence] in Blood by Automated count0-0.5FThe Bellevue HospitalPlatelet mean volume Auto (Bld) [Entitic vol]Ordered By: Kush Glez on 54-99-4970Bqzzsdgt mean volume (Bld) [Entitic vol]Platelet mean volume [Entitic volume] in Blood by Automated count6.3-10.7FThe Bellevue HospitalPlatelets Auto (Bld) [#/Vol]Ordered By: Kush Glez on 70-02-1239Wtsxbtyof (Bld) [#/Vol]Platelets [#/volume] in Blood by Automated wruvk212-870KwzhuitbfWhite HospitalPotassium [Moles/volume] in Serum or PlasmaOrdered By: Kush Glez on 33-54-9814Jcwrrgsxj [Moles/Vol]Potassium [Moles/volume] in Serum or Plasma3.5-5.1FThe Bellevue HospitalProtein [Mass/volume] in Serum or PlasmaOrdered By: Kush Glez on 99-15-1702Lratgin [Mass/Vol]Protein [Mass/volume] in Serum or Plasma6.4-8.9White HospitalRBC Auto (Bld) [#/Vol]Ordered By: Kush Glez on 94-94-4823ECZ (Bld) [#/Vol]Erythrocytes [#/volume] in Blood by Automated countLow3.60-5.00 [facility] Administrationerum or plasma albumin/globulin mass ratio Ordered By: Kush Glez on 80-73-9962Iyffqhg/Globulin [Mass ratio]Serum or plasma albumin/globulin mass ratioVeterans Health Administrationerum or plasma anion gap determinationOrdered By: Kush Glez on 52-52-0278Stpiz gap [Moles/Vol]Serum or plasma anion gap determination6.0-15.0[facility] Administrationodium [Moles/volume] in Serum or PlasmaOrdered By: Kush Glez on 60-30-1141Xuvtph [Moles/Vol]Sodium [Moles/volume] in Serum or Qcshiq134-178 [facility] HospitalUrea nitrogen [Mass/volume] in Serum or Plasma Ordered By: Kush Glez on 31-63-5675Febs nitrogen [Mass/Vol]Urea nitrogen [Mass/volume] in Serum or PlasmaHigh7-25White HospitalWBC Auto (Bld) [#/Vol]Ordered By: Kush Glez on 24-90-1706ZJB (Bld) [#/Vol] Leukocytes [#/volume] in Blood by Automated count3.8-11.6FThe Bellevue HospitalFamurphy army hospital Medicine Office/Clinic Noteon 36-02-6122Rbuuwl Medicine Office/Clinic NoteFami Medicine Office/Clinic Note Chief Complaint Acute Visit [...] breast Complex regional pain (more content not included)...[facility] SystemComment on above:Result Comment: Electronically Signed By: Kishan PRATT, Michael Barker\.br\Date and Time Signed: 12/12/24 14:26 EDTAlanine aminotransferase [Enzymatic activity/volume] in Serum or PlasmaOrdered By: Kush Glez on 11-11-5333GQC [Catalytic activity/Vol]Alanine aminotransferase [Enzymatic activity/volume] in Serum or Plasma7-52White HospitalAlbumin [Mass/volume] in Serum or Plasma by Bromocresol green (BCG) dye binding metho Ordered By: Kush Glez on 60-38-2036Xyiezhm BCG dye [Mass/Vol]Albumin [Mass/volume] in Serum or Plasma by Bromocresol green (BCG) dye binding metho 3.5-5.7FThe Bellevue HospitalAlkaline phosphatase [Enzymatic activity/volume] in Serum or PlasmaOrdered By: Kush Glez on 16-99-4847AYN [Catalytic activity/Vol]Alkaline phosphatase [Enzymatic activity/volume] in Serum or Wbcmtb32-229EdrbzakvpWhite HospitalAspartate aminotransferase [Enzymatic activity/volume] in Serum or PlasmaOrdered By: Kush Glez on 18-09-3636QAD [Catalytic activity/Vol]Aspartate aminotransferase [Enzymatic activity/volume] in Serum or Vpksmq36-28DgfehqiarWhite Hospital Basophils Auto (Bld) [#/Vol]Ordered By: Kush Glez on 87-19-4906Qwmxrpsel (Bld) [#/Vol]Automated basophil count0.0-0.2FThe [facility] Hospital Basophils/100 WBC Auto (Bld)Ordered By: Kush Glez on 12-10-2024 Basophils/100 WBC (Bld)Automated basophil %.[facility] Bilirubin.total [Mass/volume] in Serum or PlasmaOrdered By: Kush Glez on 04-71-9781Vuaetglgk [Mass/Vol]Bilirubin.total [Mass/volume] in Serum or Plasma 0.3-1.0White HospitalCalcium [Mass/volume] in Serum or Plasma Ordered By: Kush Glez on 21-84-9100Xykdcki [Mass/Vol]Calcium [Mass/volume] in Serum or Plasma8.6-10.3FThe Bellevue HospitalCarbon dioxide, total [Moles/volume] in Serum or PlasmaOrdered By: Kush Glez on 72-97-4058DI5 [Moles/Vol]Carbon dioxide, total [Moles/volume] in Serum or Bohtkb52.0-31.0 White HospitalChloride [Moles/volume] in Serum or Plasma Ordered By: tara Glez on 90-42-2084Fncoroaf [Moles/Vol]Chloride [Moles/volume] in Serum or Dumcrk71-004WvjhpukvpWhite HospitalComplete Blood Count Auto Diffon 11-87-3373Eqqmqoedu (Bld) [#/Vol]0.0 10*3/uLNormal 0.0-0.2The [facility] Health Physician GroupComment on above:Result Comment: PERFORMED BY:[facility] [place], [place] [phone] MEDICAL DIRECTORALTHEA MEADOWS M.D.Performed By: #### CBC, URIC, CMP ####[place] [id number] USABasophils/100 WBC (Bld)0.7 %Normal.The [facility] Health Physician GroupComment on above:Performed By: #### CBC, URIC, CMP ####[place] [address] USAEosinophils (Bld) [#/Vol]0.1 10*3/uL Normal0.0-0.45The [facility] Health Physician GroupComment on above:Performed By: #### CBC, URIC, CMP ####[place] [id number] USAEosinophils/100 WBC (Bld)2.7 %Normal.The [facility] Comment on above:Performed By: #### CBC, URIC, CMP ####[place] [address] USAErythrocyte distribution width (RBC) [Ratio]17.5 %High11.9-15.3The [facility] Health Physician GroupComment on above: Performed By: #### CBC, URIC, CMP ####[place] [id number] USAHematocrit (Bld) [Volume fraction]31.2 %Low34.0-46.4 The [facility] Health Physician GroupComment on above:Performed By: #### CBC, URIC, CMP ####[place] [id number] [place] Hemoglobin (Bld) [Mass/Vol]10.6 g/dLLow11.8-15.4The [facility] Comment on above:Performed By: #### CBC, URIC, CMP ####[place] [id number] USALymphocytes (Bld) [#/Vol]1.9 10*3/uLNormal1.00-4.8The [facility] Health Physician GroupComment on above:Performed By: #### CBC, URIC, CMP ####[place] [id number] USALymphocytes/100 WBC (Bld)45.6 %Normal.The [facility] Health Physician GroupComment on above:Performed By: #### CBC, URIC, CMP ####[address] (RBC) [Entitic mass]35.1 lrEbsq13.7-34.3The [facility] Health Physician GroupComment on above:Performed By: #### CBC, URIC, CMP ####[address] (RBC) [Entitic vol]103.0 pCCfzu08-514Hik [facility] Physician GroupComment on above:Performed By: #### CBC, URIC, CMP ####[place] [address] USAMean Corpuscular HGB Conc34.1 g/tXYrknsz19.0-35.0The [facility] Health Physician GroupComment on above:Performed By: #### CBC, URIC, CMP ####[place] [address] USAMonocytes (Bld) [#/Vol]0.3 10*3/uL Normal0.0-0.8The [facility] Health Physician GroupComment on above:Performed By: #### CBC, URIC, CMP ####[place] [address] USAMonocytes/100 WBC (Bld)6.5 %Normal.The [facility] Health Physician GroupComment on above:Performed By: #### CBC, URIC, CMP ####[place] [address] USANeutrophils (Bld) [#/Vol]1.9 10*3/uL Normal1.8-7.7The [facility] Health Physician GroupComment on above:Performed By: #### CBC, URIC, CMP ####[place] [address] USANeutrophils/100 WBC (Bld)44.5 %Normal.The [facility] Comment on above:Performed By: #### CBC, URIC, CMP ####[address] [place] [address] USANRBC%0.1 /100{WBC}Normal0-0.5 The [facility] Health Physician GroupComment on above:Performed By: #### CBC, URIC, CMP ####[place] [address] [place] Platelet mean volume (Bld) [Entitic vol]7.8 fLNormal6.3-10.7The [facility] Health Physician GroupComment on above:Performed By: #### CBC, URIC, CMP ####[place] [address] USAPlatelets (Bld) [#/Vol]225 10*3/iORlkslf078-548Ond [facility] Health Physician GroupComment on above: Performed By: #### CBC, URIC, CMP ####[place] [address] USARBC (Bld) [#/Vol]3.03 10*6/uLLow3.60-5.00The [facility] Health Physician GroupComment on above:Performed By: #### CBC, URIC, CMP ####[place] [address] USAWBC (Bld) [#/Vol]4.3 10*3/uLNormal3.8-11.6The [facility] Health Physician GroupComment on above:Performed By: #### CBC, URIC, CMP ####[place] [address] USAComprehensive Metabolic Panelon 12-10-2024 Albumin [Mass/Vol]3.9 g/dLNormal3.5-5.7The [facility] Physician GroupComment on above:Performed By: #### CBC, URIC, CMP ####[place] [address] USAAlbumin/Globulin [Mass ratio]1.4 {ratio}Normal The [facility] Health Physician GroupComment on above:Performed By: #### CBC, URIC, CMP ####[place] [address] USAALP [Catalytic activity/Vol]57 U/YIsudcj53-667Ogu [facility] Physician GroupComment on above:Performed By: #### CBC, URIC, CMP ####[address] [address] USAALT [Catalytic activity/Vol]12 U/L Normal7-52The [facility]ician [facility] CenterComment on above:Performed By: #### CBC, URIC, CMP ####[address] [address] USAAnion gap [Moles/Vol]10.2 mmol/LNormal6.0-15.0The [facility] Comment on above:Performed By: #### CBC, URIC, CMP ####[place] [id number] USAAST [Catalytic activity/Vol]20 U/WJhfkpt17-25Dyh [facility] CenterComment on above:Performed By: #### CBC, URIC, CMP ####[address] [address] USABilirubin [Mass/Vol]0.3 mg/dLNormal0.3-1.0The [facility] Comment on above:Performed By: #### CBC, URIC, CMP ####[address] [address] USACalcium [Mass/Vol]9.8 mg/dL Normal8.6-10.3The [facility]ician [facility] CenterComment on above:Performed By: #### CBC, URIC, CMP ####[address] [address] USAChloride [Moles/Vol]103 mmol/KZikzxx10-068Ctf [facility] Comment on above:Performed By: #### CBC, URIC, CMP ####[address] [address] USACO2 [Moles/Vol]29.2 mmol/L Jgbnsm73.0-31.0The [facility] Health Physician GroupComment on above:Performed By: #### CBC, URIC, CMP ####[address] [address] USACreatinine [Mass/Vol]0.90 mg/dLNormal0.60-1.20The [facility] Health Physician GroupComment on above:Performed By: #### CBC, URIC, CMP ####[place] [address] [place] [address] USACreatinine Clr Calc Pharmacy 62.22NormHollywood Medical Center Physician GroupComment on above:Result Comment: PERFORMED BY:[address] [place], [place] [phone] MEDICAL DIRECTORALTHEA MEADOWS M.D. Performed By: #### CBC, URIC, CMP ####[address] [address] USAGFR/1.73 sq M.predicted MDRD (S/P/Bld) [Vol rate/Area]mL/min/{1.73_m2}NormalThe [facility]arn[facility] Health Physician GroupComment on above: Performed By: #### CBC, URIC, CMP ####[place] [id number] USAGlobulin (S) [Mass/Vol]2.8 g/dLNoAtrium Health Huntersville Physician [facility] CenterComment on above:Performed By: #### CBC, URIC, CMP ####[place] [id number] USAGlucose [Mass/Vol]100 mg/gMZwejas46-353Zty [facility] Physician GroupComment on above:Result Comment: Random Glucose Reference Range is dependent on time and content of last meal. Glucose of more than 200 mg/dL in a nonstressed, ambulatory subject supports the diagnosis of Diabetes Mellitus. ADA recommended reference rangePerformed By: #### CBC, URIC, CMP ####[place] [id number] USAPotassium [Moles/Vol]4.4 mmol/LNormal3.5-5.1The [facility] Health Physician GroupComment on above:Performed By: #### CBC, URIC, CMP ####[place] [id number] USAProtein [Mass/Vol]6.7 g/dL Normal6.4-8.9The [facility] Health Physician GroupComment on above:Performed By: #### CBC, URIC, CMP ####[facility] [address] [place] [address] USASodium [Moles/Vol]138 mmol/KLixaqh600-474Oks [facility] Comment on above:Performed By: #### CBC, URIC, CMP ####[facility] [address] [place] [address] USAUrea nitrogen [Mass/Vol]16 mg/dLNormal7-25The [facility] Health Physician GroupComment on above:Performed By: #### CBC, URIC, CMP ####[facility] [address] [place] [address] USACreatinine [Mass/volume] in Serum or PlasmaOrdered By: Kush Glez on 35-41-5194Hivvmlkvus [Mass/Vol]Creatinine [Mass/volume] in Serum or Plasma 0.60-1.20White HospitalEosinophils Auto (Bld) [#/Vol]Ordered By: Kush Glez on 02-44-5777Coxewyfpifk (Bld) [#/Vol]Automated eosinophil count0.0-0.45White HospitalEosinophils/100 WBC Auto (Bld) Ordered By: Kush Glez on 94-92-2903Lqnkodrqzsx/100 WBC (Bld)Automated eosinophil %.White HospitalErythrocyte distribution width Auto (RBC) [Ratio]Ordered By: Kush Glez on 54-56-5372Dglpgqkuaye distribution width (RBC) [Ratio]Erythrocyte distribution width [Ratio] by Automated vnduxMrpi37.9-15.3FThe Bellevue HospitalGlobulin Calc (S) [Mass/Vol]Ordered By: Kush Glez on 89-44-7827Yufblgzs (S) [Mass/Vol]Serum globulin measurement by calculation (mass/volume)White HospitalGlucose [Mass/volume] in Serum or PlasmaOrdered By: Kush Glez on 68-84-9996Seektmq [Mass/Vol]Glucose [Mass/volume] in Serum or Hedqrn99-689 White HospitalComment on above:ADA recommended reference rangeRandom Glucose Reference Range is dependent on time and content of last meal. Glucose of more than 200 mg/dL in a nonstressed, ambulatory subject supports the diagnosisof Diabetes Mellitus.Hematocrit Auto (Bld) [Volume fraction]Ordered By: Kush Glez on 47-47-7019Eokhrwfnoy (Bld) [Volume fraction]Hematocrit [Volume Fraction] of Blood by Automated jgtoiIpv59.0-46.4 White HospitalHemoglobin [Mass/volume] in BloodOrdered By: Kush Glez on 66-23-6615Mxtqmykvco (Bld) [Mass/Vol]Hemoglobin [Mass/volume] in OjnjsFba80.8-15.4FThe Bellevue HospitalLeukocytes [#/volume] corrected for nucleated erythrocytes in Blood by Automated counOrdered By: Kush Glez on 46-05-0046JYZ corrected for nucl RBC Auto (Bld) [#/Vol]Leukocytes [#/volume] corrected for nucleated erythrocytes in Blood by Automated coun 3.8-11.6FThe Bellevue HospitalLymphocytes Auto (Bld) [#/Vol]Ordered By: Kush Glez on 01-46-0371Vqasmkxjiuw (Bld) [#/Vol]Lymphocytes [#/volume] in Blood by Automated count1.00-4.8[facility] Lymphocytes/100 WBC Auto (Bld)Ordered By: Kush Glez on 12-10-2024 Lymphocytes/100 WBC (Bld)Lymphocytes/100 leukocytes in Blood by Automated count. [facility]H Auto (RBC) [Entitic mass]Ordered By: Kush Glez on 42-34-6121AFH (RBC) [Entitic mass]MCH [Entitic mass] by Automated sxeonOgrh90.7-34.3FThe Bellevue HospitalMCHC Auto (RBC) [Mass/Vol] Ordered By: Kush Glez on 13-42-5722FISA (RBC) [Mass/Vol]MCHC [Mass/volume] by Automated count32.0-35.0White HospitalMCV Auto (RBC) [Entitic vol]Ordered By: Mhtara Glez on 60-18-4410RKP (RBC) [Entitic vol]MCV [Entitic volume] by Automated bnmshCtjf58-676EqwyrkxzpWhite Hospital Monocytes Auto (Bld) [#/Vol]Ordered By: tara Glez on 80-71-2586Iqvphegyp (Bld) [#/Vol]Automated blood monocyte count0.0-0.8White HospitalMonocytes/100 WBC Auto (Bld)Ordered By: tara Glez on 12-10-2024 Monocytes/100 WBC (Bld)Automated monocyte %.[facility] Neutrophils Auto (Bld) [#/Vol]Ordered By: tara Glez on 12-10-2024 Neutrophils (Bld) [#/Vol]Neutrophils [#/volume] in Blood by Automated count 1.8-7.7FThe Bellevue HospitalNeutrophils/100 WBC Auto (Bld)Ordered By: [facility] on 07-77-6920Cvgfyukqdvt/100 WBC (Bld)Automated neutrophil %. White HospitalNo Panel InformationOrdered By: tara Glez on 92-59-8740Prckcifzx GFR (CKD-EPI)> 60.0 mL/MinWhite HospitalPharmacy Creatinine Clearance (Chem62.22[facility] Nucleated erythrocytes [Presence] in Blood by Automated countOrdered By: tara Hooker on 35-67-1672Dvugthjlv RBC Auto Ql (Bld)Nucleated erythrocytes [Presence] in Blood by Automated count0-0.5FThe [facility]vue Hospital Platelet mean volume Auto (Bld) [Entitic vol]Ordered By: tara Glez on 04-19-4304Tgjflmty mean volume (Bld) [Entitic vol]Platelet mean volume [Entitic volume] in Blood by Automated count6.3-10.7FThe [facility] Hospital Platelets Auto (Bld) [#/Vol]Ordered By: tara Glez on 10-92-1150Omzgohomj (Bld) [#/Vol]Platelets [#/volume] in Blood by Automated -476ExmvohypgWhite HospitalPotassium [Moles/volume] in Serum or PlasmaOrdered By: tara Glez on 92-10-4061Odjpztvcn [Moles/Vol]Potassium [Moles/volume] in Serum or Plasma3.5-5.1FThe Bellevue HospitalProtein [Mass/volume] in Serum or PlasmaOrdered By: tara Glez on 96-69-8125Xishcop [Mass/Vol]Protein [Mass/volume] in Serum or Plasma6.4-8.9White HospitalRBC Auto (Bld) [#/Vol]Ordered By: tara Glez on 72-30-2722SAX (Bld) [#/Vol] Erythrocytes [#/volume] in Blood by Automated countLow3.60-5.00[facility] Health Administrationerum or plasma albumin/globulin mass ratioOrdered By: tara Glez on 26-02-1747Ormwbfv/Globulin [Mass ratio]Serum or plasma albumin/globulin mass ratioVeterans Health Administrationerum or plasma anion gap determinationOrdered By: tara Glez on 54-76-8232Bsjgm gap [Moles/Vol]Serum or plasma anion gap determination6.0-15.0[facility] Health Administrationodium [Moles/volume] in Serum or PlasmaOrdered By: tara Glez on 52-44-6378Ypnyug [Moles/Vol]Sodium [Moles/volume] in Serum or Vzdsft721-872 White HospitalUrate [Mass/volume] in Serum or PlasmaOrdered By: tara Glez on 41-50-8801Hyhiy [Mass/Vol]Urate [Mass/volume] in Serum or Plasma2.3-6.6FThe Bellevue HospitalUrate [Mass/Vol]4.8 mg/dLNormal 2.3-6.6FThe Bellevue HospitalComment on above:Result Comment: PERFORMED BY:[facility] [place] [phone] MEDICAL DIRECTORALTHEA MEADOWS M.D. Performed By: #### CBC, URIC, CMP ####[facility] [place] [address] USAUrea nitrogen [Mass/volume] in Serum or Plasma Ordered By: tara Glez on 68-68-9903Cbaf nitrogen [Mass/Vol]Urea nitrogen [Mass/volume] in Serum or Plasma03-28White HospitalWBC Auto (Bld) [#/Vol]Ordered By: tara Glez on 31-41-9746XSE (Bld) [#/Vol]Leukocytes [#/volume] in Blood by Automated count3.8-11.6FThe Bellevue Hospital Complete Blood Count Auto Diffon 26-89-1579Yrlaufzao (Bld) [#/Vol]0.0 10*3/uL Normal0.0-0.2The [facility] Health Physician GroupComment on above:Result Comment: PERFORMED BY:[address] [place], [place] [phone] MEDICAL DIRECTORALTHEA MEADOWS M.D. Performed By: #### CBC ####[place] [id number] USABasophils/100 WBC (Bld)0.8 %Normal.The [facility] Health Physician GroupComment on above:Performed By: #### CBC ####[place] [id number] USAEosinophils (Bld) [#/Vol]0.1 10*3/uLNormal0.0-0.45The [facility] Health Physician GroupComment on above:Performed By: #### CBC ####[place] [id number] USAEosinophils/100 WBC (Bld)3.2 %Normal.The [facility] Health Physician GroupComment on above:Performed By: #### CBC ####[place] [id number] USAErythrocyte distribution width (RBC) [Ratio]17.9 % High11.9-15.3The [facility]arnett Health Physician GroupComment on above:Performed By: #### CBC ####[place] [id number] [place] Hematocrit (Bld) [Volume fraction]27.7 %Low34.0-46.4The [facility] Health Physician GroupComment on above:Performed By: #### CBC ####[place] [address] USAHemoglobin (Bld) [Mass/Vol]9.5 g/dLLow 11.8-15.4The [facility] Health Physician GroupComment on above:Performed By: #### CBC ####[address] Lymphocytes (Bld) [#/Vol]1.7 10*3/uLNormal1.00-4.8The [facility] Comment on above:Performed By: #### CBC ####[place] [address] USALymphocytes/100 WBC (Bld)38.4 %Normal.The [facility] Health Physician GroupComment on above:Performed By: #### CBC ####[address] StreetMCH (RBC) [Entitic mass]35.0 ucEqpv89.7-34.3The [facility] Health Physician GroupComment on above:Performed By: #### CBC ####[address]MCV (RBC) [Entitic vol]102.4 sGImry86-108Hrb [facility] Comment on above:Performed By: #### CBC ####[place] [address] USAMean Corpuscular HGB Conc34.2 g/dLNormal 32.0-35.0The [facility] Health Physician GroupComment on above:Performed By: #### CBC ####[address] Monocytes (Bld) [#/Vol]0.4 10*3/uLNormal0.0-0.8The [facility] Comment on above:Performed By: #### CBC ####[place] [address] USAMonocytes/100 WBC (Bld)7.8 %Normal.The [facility] Health Physician GroupComment on above:Performed By: #### CBC ####[place] [address] USANeutrophils (Bld) [#/Vol]2.3 10*3/uLNormal1.8-7.7The [facility] Health Physician GroupComment on above: Performed By: #### CBC ####[place] [address] USANeutrophils/100 WBC (Bld)49.8 %Normal.The [facility] Health Physician GroupComment on above:Performed By: #### CBC ####[place] [address] USANRBC%0.1 /100{WBC}Normal0-0.5 The [facility] Health Physician GroupComment on above:Performed By: #### CBC ####[place] [address] [place] Platelet mean volume (Bld) [Entitic vol]7.6 fLNormal6.3-10.7The [facility] Health Physician GroupComment on above:Performed By: #### CBC ####[place] [id number] USAPlatelets (Bld) [#/Vol]207 10*3/jADzxmfm957-604Edl [facility] Physician GroupComment on above:Performed By: #### CBC ####[place] [id number] USARBC (Bld) [#/Vol]2.71 10*6/uLLow3.60-5.00The [facility] Health Physician GroupComment on above:Performed By: #### CBC ####[place] [id number] USAWBC (Bld) [#/Vol]4.5 10*3/uLNormal3.8-11.6The [facility] Health Physician GroupComment on above:Performed By: #### CBC ####[address] [address] [facility] [[email or web address]]Alanine aminotransferase [Enzymatic activity/volume] in Serum or PlasmaOrdered By: Kush Glez on 77-85-0126DCA [Catalytic activity/Vol]Alanine aminotransferase [Enzymatic activity/volume] in Serum or Plasma7-52White HospitalAlbumin [Mass/volume] in Serum or Plasma by Bromocresol green (BCG) dye binding methoOrdered By: Kush Glez on 73-97-7883Snvtppv BCG dye [Mass/Vol] Albumin [Mass/volume] in Serum or Plasma by Bromocresol green (BCG) dye binding metho3.5-5.7FThe Bellevue HospitalAlkaline phosphatase [Enzymatic activity/volume] in Serum or PlasmaOrdered By: Kush Glez on 90-47-6564DXQ [Catalytic activity/Vol]Alkaline phosphatase [Enzymatic activity/volume] in Serum or Omvnbw20-009RmidhqaebWhite HospitalAspartate aminotransferase [Enzymatic activity/volume] in Serum or PlasmaOrdered By: Kush Glez on 88-89-1975CIT [Catalytic activity/Vol]Aspartate aminotransferase [Enzymatic activity/volume] in Serum or Qtvyrh84-51RipsbtuukWhite Hospital Basophils Auto (Bld) [#/Vol]Ordered By: Kush Glez on 69-49-7030Hjqzacsrk (Bld) [#/Vol]Automated basophil count0.0-0.2FThe [facility]vue Hospital Basophils/100 WBC Auto (Bld)Ordered By: Kush Glez on 11-26-2024 Basophils/100 WBC (Bld)Automated basophil %.[facility] Bilirubin.total [Mass/volume] in Serum or PlasmaOrdered By: Kush Glez on 33-45-7498Mpefdxpey [Mass/Vol]Bilirubin.total [Mass/volume] in Serum or Plasma 0.3-1.0White HospitalCalcium [Mass/volume] in Serum or Plasma Ordered By: Kush Glez on 77-03-2911Ocbsheu [Mass/Vol]Calcium [Mass/volume] in Serum or Plasma8.6-10.3FThe Bellevue HospitalCarbon dioxide, total [Moles/volume] in Serum or PlasmaOrdered By: tara Glez on 83-54-2052GV0 [Moles/Vol]Carbon dioxide, total [Moles/volume] in Serum or Awnjtu67.0-31.0 White HospitalChloride [Moles/volume] in Serum or Plasma Ordered By: tara Glez on 96-59-1381Ujfozpyp [Moles/Vol]Chloride [Moles/volume] in Serum or Zvoogv10-599QfaqdtzjkWhite HospitalComplete Blood Count Auto Diffon 14-48-0602Ybilgcyce (Bld) [#/Vol]0.0 10*3/uLNormal 0.0-0.2The [facility] Physician GroupComment on above:Result Comment: PERFORMED BY:[address] [place], [place] [phone] MEDICAL DIRECTORALTHEA MEADOWS M.D.Performed By: #### CBC ####[address] Basophils/100 WBC (Bld)0.6 %Normal.The [facility] Health Physician GroupComment on above:Performed By: #### CBC ####[address] StreetEosinophils (Bld) [#/Vol]0.1 10*3/uLNormal0.0-0.45 The [facility] Health Physician GroupComment on above:Performed By: #### CBC ####[address] Eosinophils/100 WBC (Bld)2.3 %Normal.The [facility] Health Physician GroupComment on above:Performed By: #### CBC ####[address] StreetErythrocyte distribution width (RBC) [Ratio]18.0 % High11.9-15.3The [facility] Health Physician GroupComment on above:Performed By: #### CBC ####[address] Hematocrit (Bld) [Volume fraction]29.3 %Low34.0-46.4The [facility] Health Physician GroupComment on above:Performed By: #### CBC ####[place] [address] USAHemoglobin (Bld) [Mass/Vol]10.0 g/dL Low11.8-15.4The [facility] Health Physician GroupComment on above:Performed By: #### CBC ####[address] Lymphocytes (Bld) [#/Vol]1.7 10*3/uLNormal1.00-4.8The [facility] Comment on above:Performed By: #### CBC ####[place] [address] USALymphocytes/100 WBC (Bld)36.8 %Normal.The [facility] Health Physician GroupComment on above:Performed By: #### CBC ####[address]H (RBC) [Entitic mass]34.9 ipJkvd33.7-34.3The [facility] Health Physician GroupComment on above:Performed By: #### CBC ####[address]MCV (RBC) [Entitic vol]102.0 uHIvtt35-232Nse [facility] Comment on above:Performed By: #### CBC ####[place] [address] USAMean Corpuscular HGB Conc34.2 g/dLNormal 32.0-35.0The [facility] Physician GroupComment on above:Performed By: #### CBC ####[place] [address] [place] Monocytes (Bld) [#/Vol]0.3 10*3/uLNormal0.0-0.8The [facility] Comment on above:Performed By: #### CBC ####[place] [address] USAMonocytes/100 WBC (Bld)6.6 %Normal.The [facility] Physician GroupComment on above:Performed By: #### CBC ####[address] [address] USANeutrophils (Bld) [#/Vol]2.5 10*3/uLNormal1.8-7.7The [facility] Physician GroupComment on above: Performed By: #### CBC ####[address] [address] USANeutrophils/100 WBC (Bld)53.7 %Normal.The [facility] Physician GroupComment on above:Performed By: #### CBC ####[address] [address] USANRBC%0.2 /100{WBC}Normal0-0.5 The [facility] Physician GroupComment on above:Performed By: #### CBC ####[address] [address] [place] Platelet mean volume (Bld) [Entitic vol]7.5 fLNormal6.3-10.7The [facility] Physician GroupComment on above:Performed By: #### CBC ####[address] [address] USAPlatelets (Bld) [#/Vol]246 10*3/zYGcpdjs342-168Xkc [facility] Physician GroupComment on above:Performed By: #### CBC ####[address] [address] USARBC (Bld) [#/Vol]2.87 10*6/uLLow3.60-5.00The [facility] Physician GroupComment on above:Performed By: #### CBC ####[address] [address] USAWBC (Bld) [#/Vol]4.6 10*3/uLNormal3.8-11.6The [facility] Physician GroupComment on above:Performed By: #### CBC ####[address] [address] USAComprehensive Metabolic Panelon 64-54-0442Tryvcqv [Mass/Vol]4.0 g/dLNormal3.5-5.7The [facility] Physician GroupComment on above:Performed By: #### CMP ####[place] [id number] USAAlbumin/Globulin [Mass ratio] 1.7 {ratio}NormalThe [facility] Physician GroupComment on above:Performed By: #### CMP ####[address] [address] USAALP [Catalytic activity/Vol]61 U/XWicpba74-000Xwq [facility] Comment on above:Performed By: #### CMP ####[place] [id number] USAALT [Catalytic activity/Vol]17 U/LNormal7-52 The [facility] Physician GroupComment on above:Performed By: #### CMP ####[place] [id number] USAAnion gap [Moles/Vol]9.6 mmol/LNormal6.0-15.0The [facility] Physician GroupComment on above:Performed By: #### CMP ####[address] [address] USAAST [Catalytic activity/Vol]21 U/JQpgiib66-48Ecy [facility] Physician GroupComment on above:Performed By: #### CMP ####[address] [address] USABilirubin [Mass/Vol] 0.3 mg/dLNormal0.3-1.0The [facility] Physician GroupComment on above:Performed By: #### CMP ####[address] [address] USACalcium [Mass/Vol]8.9 mg/dLNormal8.6-10.3The [facility] Comment on above:Performed By: #### CMP ####[address] [address] USAChloride [Moles/Vol]100 mmol/LAuktcl92-254Eso [facility] Physician GroupComment on above:Performed By: #### CMP ####[address] [address] USACO2 [Moles/Vol]26.9 mmol/TEuinvq96.0-31.0The [facility] Physician GroupComment on above:Performed By: #### CMP ####[address] [address] USACreatinine [Mass/Vol]0.90 mg/dLNormal0.60-1.20The [facility] Comment on above:Performed By: #### CMP ####[address] [address] USACreatinine Clr Calc Sutdfada42.83NormHollywood Medical Center Physician GroupComment on above:Result Comment: PERFORMED BY:[address] DMITRIYLucilaISIDRO, [place] [phone] MEDICAL DIRECTORALTHEA MEADOWS M.D.Performed By: #### CMP ####[address] [address] USAGFR/1.73 sq M.predicted MDRD (S/P/Bld) [Vol rate/Area]mL/min/{1.73_m2}NormalThe [facility] Physician GroupComment on above:Performed By: #### CMP ####[address] [address] USAGlobulin (S) [Mass/Vol]2.4 g/dLNoAtrium Health Huntersville Physician GroupComment on above:Performed By: #### CMP ####[address] [address] USAGlucose [Mass/Vol]108 mg/uTQksf76-066Sei [facility] Physician GroupComment on above: Result Comment: Random Glucose Reference Range is dependent on time and content of last meal. Glucose of more than 200 mg/dL in a nonstressed, ambulatory subject supports the diagnosis of Diabetes Mellitus. ADA recommended reference rangePerformed By: #### CMP ####[address] [address] USAPotassium [Moles/Vol]3.5 mmol/LNormal3.5-5.1The [facility] Physician GroupComment on above:Performed By: #### CMP ####[place] [address] [place] [address] USAProtein [Mass/Vol]6.4 g/dLNormal6.4-8.9The [facility] Physician GroupComment on above:Performed By: #### CMP ####[place] [address] USASodium [Moles/Vol]133 mmol/NIak228-525Zuf [facility] Physician GroupComment on above:Performed By: #### CMP ####[place] [address] [place] [address] USAUrea nitrogen [Mass/Vol]18 mg/dLNormal7-25The [facility] Physician GroupComment on above:Performed By: #### CMP ####[place] [address] USACreatinine [Mass/volume] in Serum or PlasmaOrdered By: Kush Glez on 11-26-2024 Creatinine [Mass/Vol]Creatinine [Mass/volume] in Serum or Plasma0.60-1.20 [facility] HospitalEosinophils Auto (Bld) [#/Vol]Ordered By: Kush Glez on 93-18-5808Aqllhnxkuih (Bld) [#/Vol]Automated eosinophil count 0.0-0.45White HospitalEosinophils/100 WBC Auto (Bld)Ordered By: Kush Glez on 32-40-0719Feeovkyarnv/100 WBC (Bld)Automated eosinophil %. [facility] HospitalErythrocyte distribution width Auto (RBC) [Ratio]Ordered By: Kush Glez on 83-77-3962Rbsngwnvpgj distribution width (RBC) [Ratio]Erythrocyte distribution width [Ratio] by Automated countHigh 11.9-15.3FThe Bellevue HospitalGlobulin Calc (S) [Mass/Vol]Ordered By: Kush Glez on 18-80-8032Tjnqoacy (S) [Mass/Vol]Serum globulin measurement by calculation (mass/volume)White HospitalGlucose [Mass/volume] in Serum or PlasmaOrdered By: Kush Glez on 52-06-7544Mlhysfw [Mass/Vol]Glucose [Mass/volume] in Serum or SvugxaBfuv46-119PcqpkoamoWhite HospitalComment on above:ADA recommended reference rangeRandom Glucose Reference Range is dependent on time and content of last meal. Glucose of more than 200 mg/dL in a nonstressed, ambulatory subject supports the diagnosisof Diabetes Mellitus.Hematocrit Auto (Bld) [Volume fraction]Ordered By: Kush Hooker on 61-64-8350Imuivcdvok (Bld) [Volume fraction]Hematocrit [Volume Fraction] of Blood by Automated jiehdAaq43.0-46.4FThe Bellevue HospitalHemoglobin [Mass/volume] in BloodOrdered By: Kush Glez on 11-26-2024 Hemoglobin (Bld) [Mass/Vol]Hemoglobin [Mass/volume] in LplvoOsm84.8-15.4 [facility] HospitalLeukocytes [#/volume] corrected for nucleated erythrocytes in Blood by Automated counOrdered By: Kush Glez on 11-26-2024 WBC corrected for nucl RBC Auto (Bld) [#/Vol]Leukocytes [#/volume] corrected for nucleated erythrocytes in Blood by Automated coun3.8-11.6FThe Bellevue HospitalLymphocytes Auto (Bld) [#/Vol]Ordered By: Kush Glez on 60-81-8525Xbjnbtunqdq (Bld) [#/Vol]Lymphocytes [#/volume] in Blood by Automated count1.00-4.8White HospitalLymphocytes/100 WBC Auto (Bld) Ordered By: Kush Glez on 20-95-6139Diyoskqdjwl/100 WBC (Bld)Lymphocytes/100 leukocytes in Blood by Automated count.[facility] HospitalH Auto (RBC) [Entitic mass]Ordered By: Kush Glez on 46-54-8242HGH (RBC) [Entitic mass]MCH [Entitic mass] by Automated zudigCvrf87.7-34.3FThe Bellevue HospitalMCHC Auto (RBC) [Mass/Vol]Ordered By: Kush Glez on 30-10-1477GRWY (RBC) [Mass/Vol]MCHC [Mass/volume] by Automated count32.0-35.0 White HospitalMCV Auto (RBC) [Entitic vol]Ordered By: Kush Hooker on 55-57-4451KZH (RBC) [Entitic vol]MCV [Entitic volume] by Automated rwddfErzl85-545WjaerztltWhite HospitalMonocytes Auto (Bld) [#/Vol] Ordered By: Kush Glez on 32-56-3015Enidtdova (Bld) [#/Vol]Automated blood monocyte count0.0-0.8White HospitalMonocytes/100 WBC Auto (Bld)Ordered By: Kush Glez on 06-51-4929Vmwcfrvax/100 WBC (Bld)Automated monocyte %.White HospitalNeutrophils Auto (Bld) [#/Vol] Ordered By: Kush Glez on 98-88-3230Swuvekjcegw (Bld) [#/Vol]Neutrophils [#/volume] in Blood by Automated count1.8-7.7FThe [facility] Hospital Neutrophils/100 WBC Auto (Bld)Ordered By: Kush Glez on 11-26-2024 Neutrophils/100 WBC (Bld)Automated neutrophil %.White HospitalNo Panel InformationOrdered By: Kush Glez on 48-45-6084Npeuhceov GFR (CKD-EPI)> 60.0 mL/MinWhite HospitalPharmacy Creatinine Clearance (Chem59.83White HospitalNucleated erythrocytes [Presence] in Blood by Automated countOrdered By: Kush Glez on 11-26-2024 Nucleated RBC Auto Ql (Bld)Nucleated erythrocytes [Presence] in Blood by Automated count0-0.5FThe Bellevue HospitalPlatelet mean volume Auto (Bld) [Entitic vol]Ordered By: Kush Glez on 03-51-2236Naazmxbu mean volume (Bld) [Entitic vol]Platelet mean volume [Entitic volume] in Blood by Automated count6.3-10.7FThe Bellevue HospitalPlatelets Auto (Bld) [#/Vol] Ordered By: Kush Glez on 15-75-1688Qyepovvxq (Bld) [#/Vol]Platelets [#/volume] in Blood by Automated -514FouosglfiWhite Hospital Potassium [Moles/volume] in Serum or PlasmaOrdered By: Kush Glez on 18-02-8851Aiwnkifus [Moles/Vol]Potassium [Moles/volume] in Serum or Plasma 3.5-5.1FThe Bellevue HospitalProtein [Mass/volume] in Serum or Plasma Ordered By: Kush Glez on 67-59-6485Psyuqfl [Mass/Vol]Protein [Mass/volume] in Serum or Plasma6.4-8.9White HospitalRBC Auto (Bld) [#/Vol] Ordered By: Kush Glez on 35-76-9711AVZ (Bld) [#/Vol]Erythrocytes [#/volume] in Blood by Automated countLow3.60-5.00[facility]eter[facility] Health Administrationerum or plasma albumin/globulin mass ratioOrdered By: Kush Glez on 11-26-2024 Albumin/Globulin [Mass ratio]Serum or plasma albumin/globulin mass ratio [facility] Health Administrationerum or plasma anion gap determinationOrdered By: Kush Glez on 40-30-3050Efuej gap [Moles/Vol]Serum or plasma anion gap determination6.0-15.0[facility] Health Administrationodium [Moles/volume] in Serum or PlasmaOrdered By: Kush Glez on 75-81-8243Meafbk [Moles/Vol]Sodium [Moles/volume] in Serum or EjvefvCnt201-840EgybnbvdwWhite HospitalUrea nitrogen [Mass/volume] in Serum or PlasmaOrdered By: Kush Glez on 81-13-2864Pdof nitrogen [Mass/Vol]Urea nitrogen [Mass/volume] in Serum or Plasma 7-25White HospitalWBC Auto (Bld) [#/Vol]Ordered By: Kush Hooker on 86-51-8480WGD (Bld) [#/Vol]Leukocytes [#/volume] in Blood by Automated count3.8-11.6FThe Bellevue HospitalComplete Blood Count Auto Diffon 08-47-3749Vxogmoemb (Bld) [#/Vol]0.0 10*3/uLNormal0.0-0.2The [facility] Physician GroupComment on above:Result Comment: PERFORMED BY:[address] MATSumiLucilaISIDRO, [place] [phone] MEDICAL DIRECTORALTHEA MEADOWS M.D.Performed By: #### CBC ####[address] [address] USABasophils/100 WBC (Bld)0.7 %Normal.The [facility] Physician GroupComment on above:Performed By: #### CBC ####[address] [address] USAEosinophils (Bld) [#/Vol]0.1 10*3/uLNormal0.0-0.45The [facility] Physician GroupComment on above:Performed By: #### CBC ####[address] [address] USAEosinophils/100 WBC (Bld)1.7 %Normal. The [facility] Health Physician GroupComment on above:Performed By: #### CBC ####[place] [id number] [place] Erythrocyte distribution width (RBC) [Ratio]18.5 %High11.9-15.3The [facility] Physician GroupComment on above:Performed By: #### CBC ####[address] [address] USAHematocrit (Bld) [Volume fraction]28.1 %Low34.0-46.4The [facility] Physician GroupComment on above: Performed By: #### CBC ####[address] [address] USAHemoglobin (Bld) [Mass/Vol]9.8 g/dLLow11.8-15.4The [facility] Physician GroupComment on above:Performed By: #### CBC ####[place] [address] USALymphocytes (Bld) [#/Vol]1.9 10*3/uLNormal1.00-4.8The [facility] Physician GroupComment on above: Performed By: #### CBC ####[place] [id number] USALymphocytes/100 WBC (Bld)42.5 %Normal.The [facility] Physician GroupComment on above:Performed By: #### CBC ####[address]H (RBC) [Entitic mass]35.4 wsFqzq63.7-34.3The [facility] Physician GroupComment on above:Performed By: #### CBC ####[address]V (RBC) [Entitic vol]101.5 vKLntt64-022Hvp [facility] Physician GroupComment on above:Performed By: #### CBC ####[place] [address] USAMean Corpuscular HGB Conc34.9 g/bELqphqu30.0-35.0The [facility] Physician GroupComment on above:Performed By: #### CBC ####[place] [address] USAMonocytes (Bld) [#/Vol]0.2 10*3/uLNormal0.0-0.8The [facility] Physician GroupComment on above: Performed By: #### CBC ####[place] [id number] USAMonocytes/100 WBC (Bld)4.7 %Normal.The [facility] Physician GroupComment on above:Performed By: #### CBC ####[place] [address] USANeutrophils (Bld) [#/Vol]2.3 10*3/uLNormal1.8-7.7The [facility] Physician GroupComment on above:Performed By: #### CBC ####[address] [address] USANeutrophils/100 WBC (Bld)50.4 %Normal.The [facility] Physician GroupComment on above:Performed By: #### CBC ####[place] [id number] USANRBC%0.1 /100{WBC}Normal0-0.5The [facility] Physician GroupComment on above:Performed By: #### CBC ####[address] [address] USAPlatelet mean volume (Bld) [Entitic vol]7.5 fLNormal6.3-10.7The [facility] Physician GroupComment on above:Performed By: #### CBC ####[place] [id number] USAPlatelets (Bld) [#/Vol]268 10*3/rFIkanvo915-197Exn [facility] Physician GroupComment on above:Performed By: #### CBC ####[place] [id number] USARBC (Bld) [#/Vol]2.77 10*6/uLLow 3.60-5.00The [facility] Physician GroupComment on above:Performed By: #### CBC ####[place] [address] USAWBC (Bld) [#/Vol]4.5 10*3/uLNormal3.8-11.6The [facility] Physician GroupComment on above:Performed By: #### CBC ####[place] [id number] USAComplete Blood Count Auto Diffon 48-34-0623Szxgoxpfm (Bld) [#/Vol]0.0 10*3/uLNormal0.0-0.2The [facility] Physician GroupComment on above:Result Comment: PERFORMED BY:[place] [address] [place] QUIROGAINDUSTRY, [place] [phone] MEDICAL DIRECTORALTHEA JIMENEZ M.D.Performed By: #### CBC, CMP ####[place] [id number] USABasophils/100 WBC (Bld)0.6 %Normal.The [facility] Physician GroupComment on above:Performed By: #### CBC, CMP ####[place] [address] [place] Eosinophils (Bld) [#/Vol]0.1 10*3/uLNormal0.0-0.45The [facility] Comment on above:Performed By: #### CBC, CMP ####[place] [address] USAEosinophils/100 WBC (Bld)2.2 %Normal. The [facility] Health Physician GroupComment on above:Performed By: #### CBC, CMP ####[address] Erythrocyte distribution width (RBC) [Ratio]19.4 %High11.9-15.3The [facility] Physician GroupComment on above:Performed By: #### CBC, CMP ####[place] [address] USAHematocrit (Bld) [Volume fraction]27.0 %Low34.0-46.4The [facility] Physician GroupComment on above:Performed By: #### CBC, CMP ####[place] [id number] USAHemoglobin (Bld) [Mass/Vol]9.2 g/dLLow11.8-15.4The [facility] Physician GroupComment on above:Performed By: #### CBC, CMP ####[address] Lymphocytes (Bld) [#/Vol]1.7 10*3/uLNormal1.00-4.8The [facility] Comment on above:Performed By: #### CBC, CMP ####[place] [address] USALymphocytes/100 WBC (Bld)34.5 %Normal. The [facility] Physician GroupComment on above:Performed By: #### CBC, CMP ####[address] (RBC) [Entitic mass]35.0 ppGinf01.7-34.3The [facility] Physician GroupComment on above:Performed By: #### CBC, CMP ####[address]MCV (RBC) [Entitic vol]103.1 tYMfxx35-135Fyf [facility] Physician GroupComment on above:Performed By: #### CBC, CMP ####[place] [address] USAMean Corpuscular HGB Conc34.0 g/qHIgicss05.0-35.0The [facility] Physician GroupComment on above:Performed By: #### CBC, CMP ####[place] [address] USAMonocytes (Bld) [#/Vol]0.4 10*3/uLNormal 0.0-0.8The [facility] Physician GroupComment on above:Performed By: #### CBC, CMP ####[place] [address] [place] Monocytes/100 WBC (Bld)7.2 %Normal.The [facility] Physician GroupComment on above:Performed By: #### CBC, CMP ####[place] [address] USANeutrophils (Bld) [#/Vol]2.7 10*3/uLNormal1.8-7.7The [facility] Physician GroupComment on above:Performed By: #### CBC, CMP ####[place] [address] [place] Neutrophils/100 WBC (Bld)55.5 %Normal.The [facility] Physician GroupComment on above:Performed By: #### CBC, CMP ####[address] [address] USANRBC%0.2 /100{WBC}Normal0-0.5The [facility] Physician GroupComment on above:Performed By: #### CBC, CMP ####[place] [id number] USAPlatelet mean volume (Bld) [Entitic vol]8.0 fLNormal6.3-10.7The [facility] Physician GroupComment on above: Performed By: #### CBC, CMP ####[place] [address] USAPlatelets (Bld) [#/Vol]200 10*3/dEKicfhe134-633Hvn [facility] Physician GroupComment on above:Performed By: #### CBC, CMP ####[place] [address] USARBC (Bld) [#/Vol]2.62 10*6/uLLow3.60-5.00The [facility] Physician GroupComment on above:Performed By: #### CBC, CMP ####[place] [id number] USAWBC (Bld) [#/Vol]4.9 10*3/uLNormal3.8-11.6The [facility] Physician GroupComment on above:Performed By: #### CBC, CMP ####[place] [id number] [facility] [[email or web address]] Comprehensive Metabolic Panelon 76-71-7672Caymkzi [Mass/Vol]3.9 g/dLNormal 3.5-5.7The [facility] Physician GroupComment on above:Performed By: #### CBC, CMP ####[place] [id number] [facility] [[email or web address]] Albumin/Globulin [Mass ratio]1.3 {ratio}NormalThe [facility] Comment on above:Performed By: #### CBC, CMP ####[place] [id number] USAALP [Catalytic activity/Vol]68 U/L Yejfjj86-204Lcx [facility] Physician GroupComment on above:Performed By: #### CBC, CMP ####[place] [address] [place] [address] USAALT [Catalytic activity/Vol]13 U/LNormal7-52The [facility] Comment on above:Performed By: #### CBC, CMP ####[place] [address] [place] [address] USAAnion gap [Moles/Vol]11.0 mmol/LNormal 6.0-15.0The [facility] Physician GroupComment on above:Performed By: #### CBC, CMP ####[place] [address] [place] [address] USAAST [Catalytic activity/Vol]22 U/AMfbfcv85-10Ijp [facility] Physician GroupComment on above:Performed By: #### CBC, CMP ####[address] [address] USABilirubin [Mass/Vol]0.3 mg/dLNormal0.3-1.0The [facility] Physician GroupComment on above:Performed By: #### CBC, CMP ####[address] [address] USACalcium [Mass/Vol]9.4 mg/dLNormal8.6-10.3The [facility] Physician GroupComment on above: Performed By: #### CBC, CMP ####[address] [address] USAChloride [Moles/Vol]105 mmol/PBxscvl17-927Mmb [facility] Physician GroupComment on above:Performed By: #### CBC, CMP ####[address] [address] USACO2 [Moles/Vol]27.0 mmol/IZznqlb97.0-31.0The [facility] Physician GroupComment on above:Performed By: #### CBC, CMP ####[address] [address] USACreatinine [Mass/Vol]0.93 mg/dLNormal0.60-1.20The [facility] Physician GroupComment on above:Performed By: #### CBC, CMP ####[address] [address] [place] Creatinine Clr Calc Ivbpswtg63.21NoAtrium Health Huntersville Physician GroupComment on above:Result Comment: PERFORMED BY:[address]ETABIMAEL SMITHLUCKEY, [place] [phone] MEDICAL DIRECTORALTHEA JIMENEZ M.D.Performed By: #### CBC, CMP ####[address] [address] USAGFR/1.73 sq M.predicted MDRD (S/P/Bld) [Vol rate/Area]mL/min/{1.73_m2}NormalThe [facility] Physician GroupComment on above: Performed By: #### CBC, CMP ####[address] [address] USAGlobulin (S) [Mass/Vol]2.9 g/dLNoAtrium Health Huntersville Physician GroupComment on above:Performed By: #### CBC, CMP ####[address] [address] USAGlucose [Mass/Vol]110 mg/gYEkzn26-379Gnc [facility] Physician GroupComment on above:Result Comment: Random Glucose Reference Range is dependent on time and content of last meal. Glucose of more than 200 mg/dL in a nonstressed, ambulatory subject supports the diagnosis of Diabetes Mellitus. ADA recommended reference rangePerformed By: #### CBC, CMP ####[address] [address] USAPotassium [Moles/Vol]4.0 mmol/LNormal3.5-5.1The [facility] Physician GroupComment on above:Performed By: #### CBC, CMP ####[address] [address] USAProtein [Mass/Vol]6.8 g/dLNormal 6.4-8.9The [facility] Physician GroupComment on above:Performed By: #### CBC, CMP ####[address] [address] USASodium [Moles/Vol]139 mmol/DYlomrl623-991Wtg [facility] CenterComment on above:Performed By: #### CBC, CMP ####[place] [id number] USAUrea nitrogen [Mass/Vol]18 mg/dLNormal7-25The [facility] CenterComment on above:Performed By: #### CBC, CMP ####[place] [id number] [place] Basophils Auto (Bld) [#/Vol]Ordered By: tara Glez on 85-67-9318Hggjxjaof (Bld) [#/Vol]Automated basophil count0.0-0.2FThe [facility] Basophils/100 WBC Auto (Bld)Ordered By: tara Glez on 11-04-2024 Basophils/100 WBC (Bld)Automated basophil %.White HospitalCT chest w conon 27-65-4819ZV chest w conNormalThe [facility] Complete Blood Count Auto Diffon 10-90-9765Omchojwyz (Bld) [#/Vol]0.0 10*3/uL Normal0.0-0.2The [facility] CenterComment on above:Result Comment: PERFORMED BY:[address] DMITRIYZARIAISIDRO, [place] [phone] MEDICAL DIRECTORALTHEA MEADOWS M.D. Performed By: #### CBC ####[place] [id number] USABasophils/100 WBC (Bld)0.4 %Normal.The [facility] CenterComment on above:Performed By: #### CBC ####[place] [id number] USAEosinophils (Bld) [#/Vol]0.2 10*3/uLNormal0.0-0.45The [facility] CenterComment on above:Performed By: #### CBC ####[place] [address] USAEosinophils/100 WBC (Bld)3.1 %Normal.The [facility] Physician GroupComment on above:Performed By: #### CBC ####[place] [address] USAErythrocyte distribution width (RBC) [Ratio]19.7 % High11.9-15.3The [facility] Physician GroupComment on above:Performed By: #### CBC ####[address] Hematocrit (Bld) [Volume fraction]25.2 %Low34.0-46.4The [facility] Physician GroupComment on above:Performed By: #### CBC ####[place] [address] USAHemoglobin (Bld) [Mass/Vol]8.5 g/dLLow 11.8-15.4The [facility] Physician GroupComment on above:Performed By: #### CBC ####[address] Lymphocytes (Bld) [#/Vol]1.5 10*3/uLNormal1.00-4.8The [facility] Comment on above:Performed By: #### CBC ####[place] [address] USALymphocytes/100 WBC (Bld)29.8 %Normal.The [facility] Physician GroupComment on above:Performed By: #### CBC ####[place] [id number] [facility] [[email or web address]]MCH (RBC) [Entitic mass]34.0 psTeeebr22.7-34.3The [facility] Physician GroupComment on above: Performed By: #### CBC ####[address]MCV (RBC) [Entitic vol]101.4 pNNjmw63-778Iyy [facility] Physician GroupComment on above:Performed By: #### CBC ####[place] [address] USAMean Corpuscular HGB Conc33.5 g/xYPhlgmf94.0-35.0The [facility] Physician GroupComment on above: Performed By: #### CBC ####[place] [address] USAMonocytes (Bld) [#/Vol]0.3 10*3/uLNormal0.0-0.8The [facility] Health Physician GroupComment on above:Performed By: #### CBC ####[place] [address] USAMonocytes/100 WBC (Bld)5.2 %Normal.The [facility] Health Physician GroupComment on above:Performed By: #### CBC ####[place] [address] USANeutrophils (Bld) [#/Vol]3.1 10*3/uLNormal1.8-7.7The Cape [facility] Health Physician GroupComment on above:Performed By: #### CBC ####[place] [address] USANeutrophils/100 WBC (Bld)61.5 %Normal. The [facility] Health Physician GroupComment on above:Performed By: #### CBC ####[place] [address] USANRBC% 0.1 /100{WBC}Normal0-0.5The [facility] Health Physician GroupComment on above:Performed By: #### CBC ####[place] [address] USAPlatelet mean volume (Bld) [Entitic vol]8.3 fLNormal6.3-10.7The [facility] Health Physician GroupComment on above:Performed By: #### CBC ####[place] [address] USAPlatelets (Bld) [#/Vol]142 10*3/nCZcf621-602Fnm Cape [facility] Health Physician GroupComment on above: Performed By: #### CBC ####[place] [address] USARBC (Bld) [#/Vol]2.49 10*6/uLLow3.60-5.00The [facility] Health Physician GroupComment on above:Performed By: #### CBC ####[facility] [address] [place] [address] USAWBC (Bld) [#/Vol]5.0 10*3/uLNormal3.8-11.6The [facility] Health Physician GroupComment on above:Performed By: #### CBC ####[facility] [address] [place] [address] USAEosinophils Auto (Bld) [#/Vol]Ordered By: tara Glez on 11-04-2024 Eosinophils (Bld) [#/Vol]Automated eosinophil count0.0-0.45White HospitalEosinophils/100 WBC Auto (Bld)Ordered By: tara Glez on 33-39-4356Olbahgwhfdv/100 WBC (Bld)Automated eosinophil %.White HospitalErythrocyte distribution width Auto (RBC) [Ratio]Ordered By: tara Glez on 27-89-7784Udfqipypoip distribution width (RBC) [Ratio]Erythrocyte distribution width [Ratio] by Automated tzbuhMife87.9-15.3FSub[facility] Office/Clinic Noteon 77-08-1645Udhots Medicine Office/Clinic NoteFamurphy army hospital Medicine Office/Clinic Note Chief Complaint 2wk [...] - Not Given Postpone due to refusal [facility] SystemComment on above:Result Comment: Electronically Signed By: Kishan PRATT, Michael Ball.br\Date and Time Signed: 11/04/24 13:05 EST Hematocrit Auto (Bld) [Volume fraction]Ordered By: Kush Glez on 11-04-2024 Hematocrit (Bld) [Volume fraction]Hematocrit [Volume Fraction] of Blood by Automated dmlhgRnh45.0-46.4FThe Bellevue HospitalHemoglobin [Mass/volume] in BloodOrdered By: Kush Glez on 39-01-4578Wxnlaevqqy (Bld) [Mass/Vol]Hemoglobin [Mass/volume] in BuagiYer07.8-15.4FThe Bellevue HospitalLeukocytes [#/volume] corrected for nucleated erythrocytes in Blood by Automated counOrdered By: Kush Glez on 57-82-8359CNE corrected for nucl RBC Auto (Bld) [#/Vol]Leukocytes [#/volume] corrected for nucleated erythrocytes in Blood by Automated coun3.8-11.6FThe [facility] Hospital Lymphocytes Auto (Bld) [#/Vol]Ordered By: Kush Glez on 11-04-2024 Lymphocytes (Bld) [#/Vol]Lymphocytes [#/volume] in Blood by Automated count 1.00-4.8White HospitalLymphocytes/100 WBC Auto (Bld)Ordered By: Kush Glez on 77-18-3500Oyzuffomhwd/100 WBC (Bld)Lymphocytes/100 leukocytes in Blood by Automated count.White HospitalMCH Auto (RBC) [Entitic mass]Ordered By: uKsh Glez on 47-76-2028RUF (RBC) [Entitic mass]MCH [Entitic mass] by Automated count24.7-34.3FThe Bellevue HospitalMCHC Auto (RBC) [Mass/Vol]Ordered By: Kush Glez on 77-39-2353UYAK (RBC) [Mass/Vol]MCHC [Mass/volume] by Automated count32.0-35.0White HospitalMCV Auto (RBC) [Entitic vol]Ordered By: Kush Glez on 24-27-7189RPY (RBC) [Entitic vol]MCV [Entitic volume] by Automated countHigh 80-100White HospitalMonocytes Auto (Bld) [#/Vol]Ordered By: Ksuh Glez on 75-68-0688Aivfypdsh (Bld) [#/Vol]Automated blood monocyte count0.0-0.8White HospitalMonocytes/100 WBC Auto (Bld)Ordered By: tara Glez on 36-22-7406Tpxotaxrw/100 WBC (Bld)Automated monocyte %. White HospitalNeutrophils Auto (Bld) [#/Vol]Ordered By: Kush Glez on 30-03-0427Zampvwonoen (Bld) [#/Vol]Neutrophils [#/volume] in Blood by Automated count1.8-7.7FThe Bellevue HospitalNeutrophils/100 WBC Auto (Bld)Ordered By: tara Glez on 09-79-9900Ikdabqmwlpf/100 WBC (Bld) Automated neutrophil %.White HospitalNucleated erythrocytes [Presence] in Blood by Automated countOrdered By: Kush Glez on 11-04-2024 Nucleated RBC Auto Ql (Bld)Nucleated erythrocytes [Presence] in Blood by Automated count0-0.5FThe Bellevue HospitalPlatelet mean volume Auto (Bld) [Entitic vol]Ordered By: Kush Glez on 53-78-4098Skyjixgn mean volume (Bld) [Entitic vol]Platelet mean volume [Entitic volume] in Blood by Automated count6.3-10.7FThe Bellevue HospitalPlatelets Auto (Bld) [#/Vol] Ordered By: Kush Glez on 39-74-6551Igdpqdzvj (Bld) [#/Vol]Platelets [#/volume] in Blood by Automated aydhkXhy114-641TdqjvmtbbWhite HospitalRBC Auto (Bld) [#/Vol]Ordered By: Kush Glez on 81-81-4217NCE (Bld) [#/Vol]Erythrocytes [#/volume] in Blood by Automated countLow3.60-5.00White HospitalWBC Auto (Bld) [#/Vol]Ordered By: Kush Glez on 31-81-5683PCV (Bld) [#/Vol]Leukocytes [#/volume] in Blood by Automated count 3.8-11.6FThe Bellevue HospitalAlanine aminotransferase [Enzymatic activity/volume] in Serum or PlasmaOrdered By: Kush Glez on 81-18-9280LWN [Catalytic activity/Vol]Alanine aminotransferase [Enzymatic activity/volume] in Serum or Plasma7-52White HospitalAlbumin [Mass/volume] in Serum or Plasma by Bromocresol green (BCG) dye binding methoOrdered By: Kush Hooker on 35-26-7176Ahlrjvi BCG dye [Mass/Vol]Albumin [Mass/volume] in Serum or Plasma by Bromocresol green (BCG) dye binding metho3.5-5.7FThe Bellevue HospitalAlkaline phosphatase [Enzymatic activity/volume] in Serum or PlasmaOrdered By: Kush Glez on 69-72-6061EBG [Catalytic activity/Vol] Alkaline phosphatase [Enzymatic activity/volume] in Serum or Wjfudl67-343 White HospitalAspartate aminotransferase [Enzymatic activity/volume] in Serum or PlasmaOrdered By: tara Glez on 07-48-6653ODY [Catalytic activity/Vol]Aspartate aminotransferase [Enzymatic activity/volume] in Serum or Zsfkud38-89VyrlpwamdWhite HospitalBasophils Auto (Bld) [#/Vol]Ordered By: tara Glez on 49-98-3915Ejvgrqfid (Bld) [#/Vol]Automated basophil count0.0-0.2FThe Bellevue HospitalBasophils/100 WBC Auto (Bld)Ordered By: tara Glez on 35-53-6014Hfxctedgy/100 WBC (Bld)Automated basophil %.White HospitalBilirubin.total [Mass/volume] in Serum or PlasmaOrdered By: tara Glez on 57-93-9512Yyksnqjdg [Mass/Vol] Bilirubin.total [Mass/volume] in Serum or Plasma0.3-1.0White HospitalCalcium [Mass/volume] in Serum or PlasmaOrdered By: tara Glez on 47-42-8228Vadgqto [Mass/Vol]Calcium [Mass/volume] in Serum or Plasma8.6-10.3 White HospitalCarbon dioxide, total [Moles/volume] in Serum or PlasmaOrdered By: tara Glez on 94-84-3441WX4 [Moles/Vol]Carbon dioxide, total [Moles/volume] in Serum or Lwfkya59.0-31.0White HospitalChloride [Moles/volume] in Serum or PlasmaOrdered By: tara Glez on 82-02-6499Delckrpr [Moles/Vol]Chloride [Moles/volume] in Serum or Zkvsfh60-933 White HospitalComplete Blood Count Auto Diffon 10-29-2024 Basophils (Bld) [#/Vol]0.0 10*3/uLNormal0.0-0.2The [facility] Comment on above:Result Comment: PERFORMED BY:[address] [place], [place] [phone] MEDICAL DIRECTORALTHEA MEADOWS M.D.Performed By: #### CBC ####[place] [address] USABasophils/100 WBC (Bld)0.4 % Normal.The [facility] Health Physician GroupComment on above:Performed By: #### CBC ####[place] [address] [place] Eosinophils (Bld) [#/Vol]0.3 10*3/uLNormal0.0-0.45The [facility] Comment on above:Performed By: #### CBC ####[place] [address] USAEosinophils/100 WBC (Bld)7.0 %Normal.The [facility] Health Physician GroupComment on above:Performed By: #### CBC ####[place] [address] USAErythrocyte distribution width (RBC) [Ratio]19.9 %High11.9-15.3The [facility] Comment on above:Performed By: #### CBC ####[place] [address] USAHematocrit (Bld) [Volume fraction]26.1 %Low 34.0-46.4The [facility] Health Physician GroupComment on above:Performed By: #### CBC ####[place] [address] [place] Hemoglobin (Bld) [Mass/Vol]8.9 g/dLLow11.8-15.4The [facility] Comment on above:Performed By: #### CBC ####[place] [address] USALymphocytes (Bld) [#/Vol]1.7 10*3/uLNormal 1.00-4.8The [facility] Health Physician GroupComment on above:Performed By: #### CBC ####[place] [address] [place] Lymphocytes/100 WBC (Bld)38.0 %Normal.The [facility] Health Physician GroupComment on above:Performed By: #### CBC ####[address]H (RBC) [Entitic mass]33.9 jvGyemnw44.7-34.3The [facility] Health Physician GroupComment on above:Performed By: #### CBC ####[address]V (RBC) [Entitic vol]99.0 hCZoidnz75-575Obx [facility] Health Physician GroupComment on above:Performed By: #### CBC ####[place] [address] USAMean Corpuscular HGB Conc34.2 g/sHCpawdl36.0-35.0The [facility] Health Physician GroupComment on above:Performed By: #### CBC ####[place] [address] USAMonocytes (Bld) [#/Vol]0.2 10*3/uLNormal0.0-0.8The [facility] Health Physician GroupComment on above:Performed By: #### CBC ####[place] [address] USAMonocytes/100 WBC (Bld)4.0 %Normal.The [facility] Health Physician GroupComment on above:Performed By: #### CBC ####[place] [address] USANeutrophils (Bld) [#/Vol]2.3 10*3/uLNormal1.8-7.7The [facility] Health Physician GroupComment on above:Performed By: #### CBC ####[place] [address] USANeutrophils/100 WBC (Bld)50.6 %Normal.The [facility] Health Physician GroupComment on above:Performed By: #### CBC ####[place] [address] USANRBC%0.2 /100{WBC}Normal0-0.5The [facility] Health Physician GroupComment on above: Performed By: #### CBC ####[address] [address] USAPlatelet mean volume (Bld) [Entitic vol]8.1 fLNormal 6.3-10.7The [facility] Health Physician GroupComment on above:Performed By: #### CBC ####[place] [address] [place] Platelets (Bld) [#/Vol]145 10*3/rIFoy817-462Xpy [facility] Physician GroupComment on above:Performed By: #### CBC ####[place] [address] USARBC (Bld) [#/Vol]2.63 10*6/uLLow3.60-5.00The [facility] Health Physician GroupComment on above:Performed By: #### CBC ####[place] [id number] USAWBC (Bld) [#/Vol]4.5 10*3/uLNormal3.8-11.6The [facility] Health Physician GroupComment on above:Performed By: #### CBC ####[place] [address] USAComprehensive Metabolic Panelon 79-44-0832Whtysuj [Mass/Vol]3.9 g/dLNormal 3.5-5.7The [facility] Health Physician GroupComment on above:Performed By: #### FE PRO, CMP ####[place] [address] [place] Albumin/Globulin [Mass ratio]1.3 {ratio}NormalThe [facility] Comment on above:Performed By: #### FE PRO, CMP ####[place] [id number] USAALP [Catalytic activity/Vol]67 U/L Nnzqlm84-976Mge [facility] Health Physician GroupComment on above:Performed By: #### FE PRO, CMP ####[place] [id number] USAALT [Catalytic activity/Vol]16 U/LNormal7-52The [facility] Comment on above:Performed By: #### FE PRO, CMP ####[place] [address] USAAnion gap [Moles/Vol]10.1 mmol/LNormal 6.0-15.0The [facility] Health Physician GroupComment on above:Performed By: #### FE PRO, CMP ####[place] [address] [place] AST [Catalytic activity/Vol]25 U/NFdcnaj12-88Kpw [facility] Comment on above:Performed By: #### FE PRO, CMP ####[place] [address] USABilirubin [Mass/Vol]0.5 mg/dLNormal 0.3-1.0The [facility] Health Physician GroupComment on above:Performed By: #### FE PRO, CMP ####[place] [address] [place] Calcium [Mass/Vol]9.7 mg/dLNormal8.6-10.3The [facility] Health Physician GroupComment on above:Performed By: #### FE PRO, CMP ####[place] [address] USAChloride [Moles/Vol]103 mmol/DObfdja63-585Avm [facility] Physician GroupComment on above:Performed By: #### FE PRO, CMP ####[place] [address] USACO2 [Moles/Vol]27.8 mmol/SFpltzd69.0-31.0The [facility] Health Physician GroupComment on above:Performed By: #### FE PRO, CMP ####[place] [address] USACreatinine [Mass/Vol]0.77 mg/dLNormal0.60-1.20 The [facility] Health Physician GroupComment on above:Performed By: #### FE PRO, CMP ####[place] [address] [place] Creatinine Clr Calc Knxmifqc36.72NormHollywood Medical Center Physician GroupComment on above:Result Comment: PERFORMED BY:[address] [place], [place] [phone] MEDICAL DIRECTORALTHEA JIMENEZ M.D.Performed By: #### FE PRO, CMP ####[address] [place] [address] USAGFR/1.73 sq M.predicted MDRD (S/P/Bld) [Vol rate/Area]mL/min/{1.73_m2}NormalThe Cape [facility] Health Physician GroupComment on above:Performed By: #### FE PRO, CMP ####[place] [id number] USAGlobulin (S) [Mass/Vol]3.0 g/dLNoAtrium Health Huntersville Physician [facility] CenterComment on above:Performed By: #### FE PRO, CMP ####[place] [id number] USAGlucose [Mass/Vol]109 mg/xBCebn34-587Oya [facility] Physician GroupComment on above: Result Comment: Random Glucose Reference Range is dependent on time and content of last meal. Glucose of more than 200 mg/dL in a nonstressed, ambulatory subject supports the diagnosis of Diabetes Mellitus. ADA recommended reference rangePerformed By: #### FE PRO, CMP ####[place] [id number] USAPotassium [Moles/Vol]3.9 mmol/LNormal3.5-5.1The [facility] Health Physician GroupComment on above:Performed By: #### FE PRO, CMP ####[address] [address] USAProtein [Mass/Vol]6.9 g/dLNormal6.4-8.9The [facility] Health Physician GroupComment on above: Performed By: #### FE PRO, CMP ####[place] [id number] USASodium [Moles/Vol]137 mmol/FLkywrw691-752Mqd [facility] Physician GroupComment on above:Performed By: #### FE PRO, CMP ####[facility] [address] [place] [address] USAUrea nitrogen [Mass/Vol]15 mg/dLNormal7-25The [facility] Health Physician GroupComment on above:Performed By: #### FE PRO, CMP ####[address] [place] [address] USACreatinine [Mass/volume] in Serum or Plasma Ordered By: Kush Glez on 05-86-2819Ntkopdnlcm [Mass/Vol]Creatinine [Mass/volume] in Serum or Plasma0.60-1.20[facility] Eosinophils Auto (Bld) [#/Vol]Ordered By: Kush Glez on 10-29-2024 Eosinophils (Bld) [#/Vol]Automated eosinophil count0.0-0.45White HospitalEosinophils/100 WBC Auto (Bld)Ordered By: tara Glez on 54-10-0005Kvnhfzznrrc/100 WBC (Bld)Automated eosinophil %.White HospitalErythrocyte distribution width Auto (RBC) [Ratio]Ordered By: tara Glez on 80-39-8316Kzkxeyosgok distribution width (RBC) [Ratio]Erythrocyte distribution width [Ratio] by Automated wwijfIuqg71.9-15.3FThe Bellevue HospitalFE PROon 10-29-2024% Iron Mcohmfnbhi77.2 %Qmkobn65-55Biw [facility] Physician GroupComment on above:Performed By: #### FE PRO, CMP ####[facility] [address] [place] [address] USATotal Iron Binding Umrnberc181 ug/aHKkecwp662-284Xno [facility] Physician GroupComment on above: Performed By: #### FE PRO, CMP ####[facility] [address] [place] [address] USAFerritin [Mass/volume] in Serum or PlasmaOrdered By: Kush Glez on 19-06-0630Bydtfans [Mass/Vol]Ferritin [Mass/volume] in Serum or KvgeztHfqf47.0-306.8White HospitalFerritin [Mass/Vol]459.1 ng/sOXilw34.0-306.8White HospitalComment on above:Result Comment: PERFORMED BY:[facility] [place], [place] [phone] MEDICAL DIRECTORALTHEA MEADOWS M.D. Performed By: #### FE PRO, CMP ####[facility] [address] [place] [address] USAGlobulin Calc (S) [Mass/Vol]Ordered By: Kush Hooker on 70-04-6675Rvzkntda (S) [Mass/Vol]Serum globulin measurement by calculation (mass/volume)White HospitalGlucose [Mass/volume] in Serum or PlasmaOrdered By: Kush Glez on 52-68-4941Wrgzirr [Mass/Vol] Glucose [Mass/volume] in Serum or EotvncVpus49-610UgzldrtkbWhite HospitalComment on above:ADA recommended reference rangeRandom Glucose Reference Range is dependent on time and content of last meal. Glucose of more than 200 mg/dL in a nonstressed, ambulatory subject supports the diagnosisof Diabetes Mellitus.Hematocrit Auto (Bld) [Volume fraction]Ordered By: Kush Glez on 96-78-0166Qteooykwns (Bld) [Volume fraction]Hematocrit [Volume Fraction] of Blood by Automated ckelgGhf01.0-46.4FThe Bellevue HospitalHemoglobin [Mass/volume] in BloodOrdered By: Kush Glez on 54-79-2986Dbmrqunmsl (Bld) [Mass/Vol]Hemoglobin [Mass/volume] in RybdfMgz26.8-15.4FThe Bellevue HospitalIron [Mass/volume] in Serum or PlasmaOrdered By: Kush Glez on 08-38-9220Moct [Mass/Vol]Iron [Mass/volume] in Serum or Vbrlmu83-233OgwixmsfpWhite HospitalIron [Mass/Vol]81 ug/hDJkoual31-853EofddetxcWhite HospitalComment on above:Performed By: #### FE PRO, CMP ####[facility] [address] [place] [address] USALeukocytes [#/volume] corrected for nucleated erythrocytes in Blood by Automated counOrdered By: Kush Glez on 08-39-8343UMS corrected for nucl RBC Auto (Bld) [#/Vol]Leukocytes [#/volume] corrected for nucleated erythrocytes in Blood by Automated coun 3.8-11.6FThe Bellevue HospitalLymphocytes Auto (Bld) [#/Vol]Ordered By: Kush Glez on 65-09-1693Vnajsairake (Bld) [#/Vol]Lymphocytes [#/volume] in Blood by Automated count1.00-4.8[facility] Lymphocytes/100 WBC Auto (Bld)Ordered By: Kush Glez on 10-29-2024 Lymphocytes/100 WBC (Bld)Lymphocytes/100 leukocytes in Blood by Automated count. White HospitalMCH Auto (RBC) [Entitic mass]Ordered By: Kush Glez on 24-72-1494RQV (RBC) [Entitic mass]MCH [Entitic mass] by Automated count24.7-34.3FThe Bellevue HospitalMCHC Auto (RBC) [Mass/Vol]Ordered By: Kush Glez on 22-70-9090NSRP (RBC) [Mass/Vol]MCHC [Mass/volume] by Automated count32.0-35.0White HospitalMCV Auto (RBC) [Entitic vol]Ordered By: Kush Glez on 52-09-5377NQI (RBC) [Entitic vol]MCV [Entitic volume] by Automated qudrt75-925OaxuevusfWhite HospitalMonocytes Auto (Bld) [#/Vol]Ordered By: Kush Glez on 68-54-9114Gdeoiduku (Bld) [#/Vol] Automated blood monocyte count0.0-0.8[facility] Monocytes/100 WBC Auto (Bld)Ordered By: Kush Glez on 10-29-2024 Monocytes/100 WBC (Bld)Automated monocyte %.[facility] Neutrophils Auto (Bld) [#/Vol]Ordered By: Kush Glez on 10-29-2024 Neutrophils (Bld) [#/Vol]Neutrophils [#/volume] in Blood by Automated count 1.8-7.7FThe Bellevue HospitalNeutrophils/100 WBC Auto (Bld)Ordered By: Kush Glez on 44-84-4664Wkpwekbhwyy/100 WBC (Bld)Automated neutrophil %. White HospitalNo Panel InformationOrdered By: Kush Glez on 41-41-5674Oeusizljz GFR (CKD-EPI)> 60.0 mL/MinWhite HospitalPharmacy Creatinine Clearance (Chem72.72[facility] Nucleated erythrocytes [Presence] in Blood by Automated countOrdered By: Kush Hooker on 46-69-1682Mxmspxarj RBC Auto Ql (Bld)Nucleated erythrocytes [Presence] in Blood by Automated count0-0.5FThe [facility] Hospital Platelet mean volume Auto (Bld) [Entitic vol]Ordered By: Kush Glez on 30-48-8732Egpaglil mean volume (Bld) [Entitic vol]Platelet mean volume [Entitic volume] in Blood by Automated count6.3-10.7FThe [facility] Hospital Platelets Auto (Bld) [#/Vol]Ordered By: Kush Glez on 47-87-2853Czeexgzkv (Bld) [#/Vol]Platelets [#/volume] in Blood by Automated ntcqpGjl933-071EniymnfsbWhite HospitalPotassium [Moles/volume] in Serum or PlasmaOrdered By: Kush Glez on 30-44-6256Gnsnlrrpy [Moles/Vol]Potassium [Moles/volume] in Serum or Plasma3.5-5.1FThe Bellevue HospitalProtein [Mass/volume] in Serum or PlasmaOrdered By: Kush Glez on 60-33-4042Qipgoat [Mass/Vol]Protein [Mass/volume] in Serum or Plasma6.4-8.9White HospitalRBC Auto (Bld) [#/Vol]Ordered By: Kush Glez on 24-70-4406KKF (Bld) [#/Vol] Erythrocytes [#/volume] in Blood by Automated countLow3.60-5.00Veterans Health Administrationerum or plasma albumin/globulin mass ratioOrdered By: Kush Glez on 98-39-5797Mxtdxlc/Globulin [Mass ratio]Serum or plasma albumin/globulin mass ratioVeterans Health Administrationerum or plasma anion gap determinationOrdered By: Kush Glez on 65-63-8916Wsrey gap [Moles/Vol]Serum or plasma anion gap determination6.0-15.0V[facility] Health Administrationerum or plasma iron binding capacity measurement (mass/volume) Ordered By: Kush Glez on 57-12-9247Unff binding capacity [Mass/Vol]Iron binding capacity [Mass/volume] in Serum or Aishwg515-794KusytdxvtWhite HospitalIron binding capacity [Mass/Vol]321 ug/eE468-139IqguzjocdVeterans Health Administrationerum or plasma iron saturation measurement (mass fraction) Ordered By: Kush Glez on 71-29-4603Jgsi saturation [Mass fraction]Iron saturation [Mass Fraction] in Serum or Mvwosr19-39PrsugmvlgWhite HospitalIron saturation [Mass fraction]25.2 %20-50Veterans Health Administrationodium [Moles/volume] in Serum or PlasmaOrdered By: Kush Glez on 74-60-8911Bawttp [Moles/Vol]Sodium [Moles/volume] in Serum or Fzdnuz465-522 White HospitalTransferrin [Mass/volume] in Serum or Plasma Ordered By: Kush Glez on 50-59-0761Brpvlvsedmm [Mass/Vol]Transferrin [Mass/volume] in Serum or Rbaedm872-522NrdgpevlvWhite Hospital Transferrin [Mass/Vol]229 mg/iIRadzgc845-444NqldtiaaxWhite Hospital Comment on above:Performed By: #### FE PRO, CMP ####[facility] [address] [place] [address] USAUrea nitrogen [Mass/volume] in Serum or PlasmaOrdered By: Kush Glez on 67-22-6641Dbhn nitrogen [Mass/Vol]Urea nitrogen [Mass/volume] in Serum or Plasma7-25[facility] WBC Auto (Bld) [#/Vol]Ordered By: Kush Glez on 10-49-0056LYB (Bld) [#/Vol] Leukocytes [#/volume] in Blood by Automated count3.8-11.6FThe Bellevue HospitalComplete Blood Count Auto Diffon 13-97-3617Mhbvdchfg (Bld) [#/Vol] 0.1 10*3/uLNormal0.0-0.2The [facility] Physician GroupComment on above:Result Comment: PERFORMED BY:[address] [place], [place] [phone] MEDICAL DIRECTORALTHEA MEADOWS M.D. Performed By: #### CBC ####[place] [address] USABasophils/100 WBC (Bld)0.9 %Normal.The [facility] Health Physician GroupComment on above:Performed By: #### CBC ####[place] [id number] USAEosinophils (Bld) [#/Vol]0.7 10*3/uLHigh0.0-0.45The [facility] Physician GroupComment on above:Performed By: #### CBC ####[place] [id number] USAEosinophils/100 WBC (Bld)10.5 %Normal.The [facility] Health Physician GroupComment on above:Performed By: #### CBC ####[place] [id number] USAErythrocyte distribution width (RBC) [Ratio]18.7 % High11.9-15.3The [facility] Health Physician GroupComment on above:Performed By: #### CBC ####[place] [id number] [facility] [[email or web address]] Hematocrit (Bld) [Volume fraction]25.0 %Low34.0-46.4The [facility] Health Physician GroupComment on above:Performed By: #### CBC ####[place] [id number] USAHemoglobin (Bld) [Mass/Vol]8.4 g/dLLow 11.8-15.4The [facility] Physician GroupComment on above:Performed By: #### CBC ####[place] [address] [place] Lymphocytes (Bld) [#/Vol]1.9 10*3/uLNormal1.00-4.8The [facility] Comment on above:Performed By: #### CBC ####[place] [address] USALymphocytes/100 WBC (Bld)26.6 %Normal.The [facility] Health Physician GroupComment on above:Performed By: #### CBC ####[place] [address] USAMCH (RBC) [Entitic mass]32.6 xiRiofix26.7-34.3The [facility] Physician GroupComment on above: Performed By: #### CBC ####[place] [address] USAMCV (RBC) [Entitic vol]96.9 rEUebzli53-129Hry [facility] Physician GroupComment on above:Performed By: #### CBC ####[place] [address] USAMean Corpuscular HGB Conc33.6 g/iIBkqysh58.0-35.0The [facility] Physician GroupComment on above: Performed By: #### CBC ####[place] [address] USAMonocytes (Bld) [#/Vol]0.2 10*3/uLNormal0.0-0.8The [facility] Physician GroupComment on above:Performed By: #### CBC ####[place] [address] USAMonocytes/100 WBC (Bld)3.4 %Normal.The [facility] Physician GroupComment on above:Performed By: #### CBC ####[place] [id number] USANeutrophils (Bld) [#/Vol]4.1 10*3/uLNormal1.8-7.7The [facility] Physician GroupComment on above:Performed By: #### CBC ####[place] [address] USANeutrophils/100 WBC (Bld)58.6 %Normal. The [facility] Physician GroupComment on above:Performed By: #### CBC ####[place] [address] USANRBC% 0.1 /100{WBC}Normal0-0.5The [facility] Physician GroupComment on above:Performed By: #### CBC ####[place] [address] USAPlatelet mean volume (Bld) [Entitic vol]7.9 fLNormal6.3-10.7The [facility] Health Physician GroupComment on above:Performed By: #### CBC ####[place] [address] USAPlatelets (Bld) [#/Vol]185 10*3/hYJvazjl812-845Tns [facility] Health Physician GroupComment on above: Performed By: #### CBC ####[place] [address] USARBC (Bld) [#/Vol]2.58 10*6/uLLow3.60-5.00The [facility] Health Physician GroupComment on above:Performed By: #### CBC ####[place] [address] USAWBC (Bld) [#/Vol]7.0 10*3/uLNormal3.8-11.6The [facility] Health Physician GroupComment on above:Performed By: #### CBC ####[place] [address] USAAlanine aminotransferase [Enzymatic activity/volume] in Serum or Plasma Ordered By: Kush Glez on 33-19-7381VET [Catalytic activity/Vol]Alanine aminotransferase [Enzymatic activity/volume] in Serum or Plasma7-52White HospitalAlbumin [Mass/volume] in Serum or Plasma by Bromocresol green (BCG) dye binding methoOrdered By: Kush Glez on 73-25-5020Qkqtjuw BCG dye [Mass/Vol]Albumin [Mass/volume] in Serum or Plasma by Bromocresol green (BCG) dye binding methoLow3.5-5.7FThe Bellevue HospitalAlkaline phosphatase [Enzymatic activity/volume] in Serum or PlasmaOrdered By: Kush Hooker on 65-01-3207YZS [Catalytic activity/Vol]Alkaline phosphatase [Enzymatic activity/volume] in Serum or Rhwthz03-692IlegzehejWhite Hospital Aspartate aminotransferase [Enzymatic activity/volume] in Serum or PlasmaOrdered By: Kush Glez on 75-62-7651NMD [Catalytic activity/Vol]Aspartate aminotransferase [Enzymatic activity/volume] in Serum or Dpnmgm65-95JbitqgrpoWhite HospitalBasophils Auto (Bld) [#/Vol]Ordered By: Kush Glez on 98-63-7637Puhbsilvw (Bld) [#/Vol]Automated basophil count0.0-0.2FThe Bellevue HospitalBasophils/100 WBC Auto (Bld)Ordered By: Kush Glez on 98-46-9544Ztglqagnr/100 WBC (Bld)Automated basophil %.White HospitalBilirubin.total [Mass/volume] in Serum or PlasmaOrdered By: Kush Glez on 26-51-8524Vzwbpyvvx [Mass/Vol]Bilirubin.total [Mass/volume] in Serum or Plasma0.3-1.0White HospitalCalcium [Mass/volume] in Serum or PlasmaOrdered By: Kush Glez 30-32-5943Arvisla [Mass/Vol]Calcium [Mass/volume] in Serum or Plasma8.6-10.3FThe Bellevue HospitalCarbon dioxide, total [Moles/volume] in Serum or PlasmaOrdered By: Kush Glez on 00-16-7666AC2 [Moles/Vol]Carbon dioxide, total [Moles/volume] in Serum or Plasma 21.0-31.0White HospitalChloride [Moles/volume] in Serum or PlasmaOrdered By: Kush Glez on 64-36-2266Cgvllxhh [Moles/Vol]Chloride [Moles/volume] in Serum or Qwzhbb75-190FltmxbytrWhite HospitalComplete Blood Count Auto Diffon 40-94-3971Aybqxdaka (Bld) [#/Vol]0.1 10*3/uLNormal 0.0-0.2The [facility] Health Physician GroupComment on above:Result Comment: PERFORMED BY:[address]Sumi[place]ESUVI[place], [place] [phone] MEDICAL DIRECTORALTHEA MEADOWS M.D.Performed By: #### CBC ####[place] [id number] [place] Basophils/100 WBC (Bld)0.5 %Normal.The [facility] Health Physician GroupComment on above:Performed By: #### CBC ####[address] [address] USAEosinophils (Bld) [#/Vol]0.9 10*3/uLHigh0.0-0.45The [facility] Health Physician GroupComment on above:Performed By: #### CBC ####[address] [address] USAEosinophils/100 WBC (Bld)8.5 %Normal.The [facility] Health Physician GroupComment on above:Performed By: #### CBC ####[address] [address] USAErythrocyte distribution width (RBC) [Ratio]18.9 %High11.9-15.3The [facility] Health Physician GroupComment on above:Performed By: #### CBC ####[place] [id number] USAHematocrit (Bld) [Volume fraction]23.9 %Low34.0-46.4The [facility] Health Physician GroupComment on above: Performed By: #### CBC ####[address] [place] [address] USAHemoglobin (Bld) [Mass/Vol]8.1 g/dLLow11.8-15.4The [facility] Health Physician GroupComment on above:Performed By: #### CBC ####[place] [address] USALymphocytes (Bld) [#/Vol]2.1 10*3/uLNormal1.00-4.8The [facility] Health Physician GroupComment on above: Performed By: #### CBC ####[place] [address] USALymphocytes/100 WBC (Bld)20.4 %Normal.The [facility] Health Physician GroupComment on above:Performed By: #### CBC ####[address] Nichols StreetMCH (RBC) [Entitic mass]33.3 cqVifkzn94.7-34.3The [facility] Health Physician GroupComment on above:Performed By: #### CBC ####[place] [id number] USAMCV (RBC) [Entitic vol]98.0 eGJtudme64-359Gos [facility] Physician [facility] Comment on above:Performed By: #### CBC ####[place] [address] USAMean Corpuscular HGB Conc33.9 g/dLNormal 32.0-35.0The [facility] Health Physician GroupComment on above:Performed By: #### CBC ####[place] [id number] [place] Monocytes (Bld) [#/Vol]0.9 10*3/uLHigh0.0-0.8The [facility] Comment on above:Performed By: #### CBC ####[place] [address] USAMonocytes/100 WBC (Bld)9.2 %Normal.The [facility] Health Physician GroupComment on above:Performed By: #### CBC ####[address] [address] USANeutrophils (Bld) [#/Vol]6.3 10*3/uLNormal1.8-7.7The [facility] Health Physician GroupComment on above: Performed By: #### CBC ####[address] [address] USANeutrophils/100 WBC (Bld)61.4 %Normal.The [facility] Health Physician GroupComment on above:Performed By: #### CBC ####[place] [id number] USANRBC%0.1 /100{WBC}Normal0-0.5 The [facility] Health Physician GroupComment on above:Performed By: #### CBC ####[place] [address] [place] Platelet mean volume (Bld) [Entitic vol]7.6 fLNormal6.3-10.7The [facility] Health Physician GroupComment on above:Performed By: #### CBC ####[address] [address] USAPlatelets (Bld) [#/Vol]254 10*3/wZHarcbl240-105Prf [facility] Physician GroupComment on above:Performed By: #### CBC ####[address] [address] USARBC (Bld) [#/Vol]2.44 10*6/uLLow3.60-5.00The [facility] Health Physician GroupComment on above:Performed By: #### CBC ####[address] [address] USAWBC (Bld) [#/Vol]10.3 10*3/uLNormal3.8-11.6The [facility] Health Physician GroupComment on above:Performed By: #### CBC ####[address] [address] USAComprehensive Metabolic Panelon 31-58-5547Ymuqdxh [Mass/Vol]3.4 g/dLLow3.5-5.7The [facility] Health Physician GroupComment on above:Performed By: #### CMP ####[address] [address] USAAlbumin/Globulin [Mass ratio] 1.1 {ratio}NormalThe [facility]arn[facility] Health Physician GroupComment on above:Performed By: #### CMP ####[address] [address] USAALP [Catalytic activity/Vol]93 U/UBrfonm98-315Hri [facility] Comment on above:Performed By: #### CMP ####[address] [address] USAALT [Catalytic activity/Vol]12 U/LNormal7-52 The [facility] Health Physician GroupComment on above:Performed By: #### CMP ####[address] [address] USAAnion gap [Moles/Vol]11.2 mmol/LNormal6.0-15.0The [facility] Health Physician GroupComment on above:Performed By: #### CMP ####[address] [address] USAAST [Catalytic activity/Vol]18 U/WGvpywf22-82Xzf [facility] Physician GroupComment on above:Performed By: #### CMP ####[address] [address] USABilirubin [Mass/Vol] 0.3 mg/dLNormal0.3-1.0The [facility] Health Physician GroupComment on above:Performed By: #### CMP ####[address] [address] USACalcium [Mass/Vol]9.3 mg/dLNormal8.6-10.3The [facility] Comment on above:Performed By: #### CMP ####[address] [address] USAChloride [Moles/Vol]104 mmol/AZpqpoa72-629Weq [facility] Health Physician GroupComment on above:Performed By: #### CMP ####[address] [address] USACO2 [Moles/Vol]27.0 mmol/EDlcmdj27.0-31.0The [facility] Health Physician GroupComment on above:Performed By: #### CMP ####[address] [address] USACreatinine [Mass/Vol]0.75 mg/dLNormal0.60-1.20The [facility] Comment on above:Performed By: #### CMP ####[address] [address] USACreatinine Clr Calc Kuzrsidp79.82NormHollywood Medical Center Physician GroupComment on above:Result Comment: PERFORMED BY:[address] [place], [place] [phone] MEDICAL DIRECTORALTHEA MEADOWS M.D.Performed By: #### CMP ####[place] [id number] USAGFR/1.73 sq M.predicted MDRD (S/P/Bld) [Vol rate/Area]mL/min/{1.73_m2}NormalThe [facility] Physician [facility] CenterComment on above:Performed By: #### CMP ####[address] [address] USAGlobulin (S) [Mass/Vol]3.0 g/dLNoAtrium Health Huntersville Physician [facility] CenterComment on above:Performed By: #### CMP ####[place] [id number] USAGlucose [Mass/Vol]100 mg/wKFoaewf69-664Oxq [facility] Physician GroupComment on above: Result Comment: Random Glucose Reference Range is dependent on time and content of last meal. Glucose of more than 200 mg/dL in a nonstressed, ambulatory subject supports the diagnosis of Diabetes Mellitus. ADA recommended reference rangePerformed By: #### CMP ####[address] [address] USAPotassium [Moles/Vol]4.2 mmol/LNormal3.5-5.1The [facility] Health Physician GroupComment on above:Performed By: #### CMP ####[facility] [place] [address] USAProtein [Mass/Vol]6.4 g/dLNormal6.4-8.9The [facility] Health Physician GroupComment on above:Performed By: #### CMP ####[facility] [place] [address] USASodium [Moles/Vol]138 mmol/BSmfmvn636-078Iyr [facility] Physician GroupComment on above:Performed By: #### CMP ####[facility] [place] [address] USAUrea nitrogen [Mass/Vol]14 mg/dLNormal7-25The [facility] Health Physician GroupComment on above:Performed By: #### CMP ####[place] [address] [place] [address] USACreatinine [Mass/volume] in Serum or PlasmaOrdered By: Kush Glez on 10-15-2024 Creatinine [Mass/Vol]Creatinine [Mass/volume] in Serum or Plasma0.60-1.20 White HospitalEosinophils Auto (Bld) [#/Vol]Ordered By: Kush Glez on 27-32-6456Ivhawotcctd (Bld) [#/Vol]Automated eosinophil countHigh 0.0-0.45White HospitalEosinophils/100 WBC Auto (Bld)Ordered By: Kush Glez on 45-14-1987Oylwnkcnrrq/100 WBC (Bld)Automated eosinophil %. White HospitalErythrocyte distribution width Auto (RBC) [Ratio]Ordered By: Kush Glez on 57-45-0820Manqcxyuhtq distribution width (RBC) [Ratio]Erythrocyte distribution width [Ratio] by Automated countHigh 11.9-15.3FThe Bellevue HospitalGlobulin Calc (S) [Mass/Vol]Ordered By: Kush Glez on 28-92-1397Hkcollqa (S) [Mass/Vol]Serum globulin measurement by calculation (mass/volume)White HospitalGlucose [Mass/volume] in Serum or PlasmaOrdered By: Kush Glez on 22-89-7250Ewxburo [Mass/Vol]Glucose [Mass/volume] in Serum or Taahhj59-605HviquxpqnWhite HospitalComment on above:ADA recommended reference rangeRandom Glucose Reference Range is dependent on time and content of last meal. Glucose of more than 200 mg/dL in a nonstressed, ambulatory subject supports the diagnosisof Diabetes Mellitus.Hematocrit Auto (Bld) [Volume fraction]Ordered By: Kush Hooker on 28-98-6584Caffrjuokv (Bld) [Volume fraction]Hematocrit [Volume Fraction] of Blood by Automated xqkioHmg21.0-46.4FThe Bellevue HospitalHemoglobin [Mass/volume] in BloodOrdered By: Kush Glez on 10-15-2024 Hemoglobin (Bld) [Mass/Vol]Hemoglobin [Mass/volume] in QttgjZum62.8-15.4 White HospitalLeukocytes [#/volume] corrected for nucleated erythrocytes in Blood by Automated counOrdered By: Kush Glez on 10-15-2024 WBC corrected for nucl RBC Auto (Bld) [#/Vol]Leukocytes [#/volume] corrected for nucleated erythrocytes in Blood by Automated coun3.8-11.6FThe Bellevue HospitalLymphocytes Auto (Bld) [#/Vol]Ordered By: Kush Glez on 21-60-5702Gcjcfdkenvy (Bld) [#/Vol]Lymphocytes [#/volume] in Blood by Automated count1.00-4.8White HospitalLymphocytes/100 WBC Auto (Bld) Ordered By: Kush Glez on 21-35-4435Wpmqiepazte/100 WBC (Bld)Lymphocytes/100 leukocytes in Blood by Automated count.[facility] HospitalH Auto (RBC) [Entitic mass]Ordered By: Kush Glez on 26-71-1010NMW (RBC) [Entitic mass]MCH [Entitic mass] by Automated count24.7-34.3FThe Bellevue HospitalMCHC Auto (RBC) [Mass/Vol]Ordered By: Kush Glez on 10-15-2024 MCHC (RBC) [Mass/Vol]MCHC [Mass/volume] by Automated count32.0-35.0White HospitalMCV Auto (RBC) [Entitic vol]Ordered By: Kush Glez on 99-44-3077OQH (RBC) [Entitic vol]MCV [Entitic volume] by Automated daoqm51-952 White HospitalMonocytes Auto (Bld) [#/Vol]Ordered By: Kush Hooker on 66-14-7184Ukunnbkgj (Bld) [#/Vol]Automated blood monocyte countHigh 0.0-0.8White HospitalMonocytes/100 WBC Auto (Bld)Ordered By: Kush Glez on 52-18-1677Nysdggbyp/100 WBC (Bld)Automated monocyte %. White HospitalNeutrophils Auto (Bld) [#/Vol]Ordered By: Kush Glez on 64-86-7969Eopjjjocsyq (Bld) [#/Vol]Neutrophils [#/volume] in Blood by Automated count1.8-7.7FThe Bellevue HospitalNeutrophils/100 WBC Auto (Bld)Ordered By: Kush Glez on 11-42-2311Akibshiulil/100 WBC (Bld) Automated neutrophil %.White HospitalNo Panel Information Ordered By: Kush Glez on 31-26-5676Luifnzlwo GFR (CKD-EPI)> 60.0 mL/Min White HospitalPharmacy Creatinine Clearance (Chem69.82 White HospitalNucleated erythrocytes [Presence] in Blood by Automated countOrdered By: Kush Glez on 38-11-5932Czismxnzz RBC Auto Ql (Bld)Nucleated erythrocytes [Presence] in Blood by Automated count0-0.5FThe Bellevue HospitalPlatelet mean volume Auto (Bld) [Entitic vol]Ordered By: Kush Glez on 22-97-6155Yzfkjyry mean volume (Bld) [Entitic vol]Platelet mean volume [Entitic volume] in Blood by Automated count6.3-10.7FThe Bellevue HospitalPlatelets Auto (Bld) [#/Vol]Ordered By: Kush Glez on 51-32-9689Ldwjvitji (Bld) [#/Vol]Platelets [#/volume] in Blood by Automated bofoo528-201HgpfjczbcWhite HospitalPotassium [Moles/volume] in Serum or PlasmaOrdered By: Kush Glez on 00-47-6340Rmukvgdce [Moles/Vol]Potassium [Moles/volume] in Serum or Plasma3.5-5.1FThe Bellevue HospitalProtein [Mass/volume] in Serum or PlasmaOrdered By: Kush Glez on 42-67-6079Uquidop [Mass/Vol]Protein [Mass/volume] in Serum or Plasma6.4-8.9White HospitalRBC Auto (Bld) [#/Vol]Ordered By: Kush Glez on 74-05-5734BPX (d) [#/Vol]Erythrocytes [#/volume] in Blood by Automated countLow3.60-5.00 [facility] Health Administrationerum or plasma albumin/globulin mass ratio Ordered By: Kush Glez on 66-75-7967Jmimovr/Globulin [Mass ratio]Serum or plasma albumin/globulin mass ratioVeterans Health Administrationerum or plasma anion gap determinationOrdered By: Kush Glez on 06-10-8150Dnwpm gap [Moles/Vol]Serum or plasma anion gap determination6.0-15.0[facility] Health Administrationodium [Moles/volume] in Serum or PlasmaOrdered By: Kush Glez on 65-02-9161Oyixzn [Moles/Vol]Sodium [Moles/volume] in Serum or Cvynab087-896 White HospitalUrea nitrogen [Mass/volume] in Serum or Plasma Ordered By: Kush Glez on 31-26-0645Ohkf nitrogen [Mass/Vol]Urea nitrogen [Mass/volume] in Serum or Plasma7-25White HospitalWBC Auto (Bld) [#/Vol]Ordered By: Kush Glez on 72-70-8713ULA (Bld) [#/Vol]Leukocytes [#/volume] in Blood by Automated count3.8-11.6FThe Bellevue Hospital Family Medicine Office/Clinic Noteon 31-26-9269Usqmti Medicine Office/Clinic NoteBaystate Franklin Medical Center Medicine Office/Clinic Note Chief Complaint TCM follow up Breast cancer treatment and infection management concerns. [facility] Staff Pt presents today for TCM visit. Hospital: [facility] Admission date: 09/17/2024 Discharge date: 2024 Symptoms [...] EA, 0, Handicap Placard, 5 years., Supply Account Resolution Specialist - Ambulatory Referral 2. BMI 21.0-21.9, adult (Z68.21: Body mass index [BMI] 21.0-21.9, adult) Monitor patient's weight and nutritional intake to ensure maintenance of suitable BMI during ongoing oncology treatment. Ordered: Misc Prescription, Handicap Placard, 5 years., See Instructions, 1 EA, 0, Handicap Placard, 5 years., Supply Account Resolution Specialist - Ambulatory Referral 3. Nonsmoker (Z78.9: Other specified health status) Please continue to not smoke. Ordered: Misc Prescription, Handicap Placard, 5 years., See Instructions, 1 EA, 0, Handicap Placard, 5 years., Supply Account Resolution Specialist - Ambulatory Referral 4. Breast cancer of [...] EA, 0, Handicap Placard, 5 years., Supply Account Resolution Specialist - Ambulatory Referral 5. PNA (pneumonia) (J18.9: Pneumonia, unspecified organism) Continue current antibiotic therapy (Augmentin). Assess symptom resolution and perform necessary investigations if symptoms persist. Ordered: Misc Prescription, Handicap Placard, 5 years., See Instructions, 1 EA, 0, Handicap Placard, 5 years., Supply Account Resolution Specialist - Ambulatory Referral 6. UTI symptoms (R39.9: Unspecified symptoms and signs involving the genitourinary system) Investigate and address ongoing urinary sy (more content not included)...Normal [facility] CenterComment on above:Result Comment: Electronically Signed By: Kishan PRATT, Michael Ball.br\Date and Time Signed: 10/08/24 12:03 EST Alanine aminotransferase [Enzymatic activity/volume] in Serum or PlasmaOrdered By: Roshan Reynoso on 08-36-1122PGW [Catalytic activity/Vol]Alanine aminotransferase [Enzymatic activity/volume] in Serum or Plasma7-52White HospitalAlbumin [Mass/volume] in Serum or Plasma by Bromocresol green (BCG) dye binding methoOrdered By: Roshan Reynoso on 63-77-9208Vyxxwkc BCG dye [Mass/Vol]Albumin [Mass/volume] in Serum or Plasma by Bromocresol green (BCG) dye binding metho3.5-5.7FThe Bellevue HospitalAlkaline phosphatase [Enzymatic activity/volume] in Serum or PlasmaOrdered By: Roshan Reynoso on 37-47-8894BOC [Catalytic activity/Vol]Alkaline phosphatase [Enzymatic activity/volume] in Serum or Orqabd21-747ZvvtfdnkyWhite Hospital Aspartate aminotransferase [Enzymatic activity/volume] in Serum or PlasmaOrdered By: Roshan Reynoso on 65-82-1099XWA [Catalytic activity/Vol]Aspartate aminotransferase [Enzymatic activity/volume] in Serum or Dhjsdc00-50KknskwkdhWhite HospitalBasophils Auto (Bld) [#/Vol]Ordered By: Roshan Reynoso on 23-66-4813Xvbgkquhv (Bld) [#/Vol]Automated basophil count0.0-0.2FThe Bellevue HospitalBasophils/100 WBC Auto (Bld)Ordered By: Roshan Reynoso on 35-35-5138Zratnybtj/100 WBC (Bld)Automated basophil %.White HospitalBilirubin.total [Mass/volume] in Serum or PlasmaOrdered By: Roshan Reynoso on 51-57-8182Ygjxwctvw [Mass/Vol]Bilirubin.total [Mass/volume] in Serum or Plasma0.3-1.0White HospitalCT chest w conon 97-42-0456CR chest w conNormalThe [facility] Health Physician GroupCalcium [Mass/volume] in Serum or PlasmaOrdered By: Roshan Reynoso on 89-77-7421Hjprlyl [Mass/Vol]Calcium [Mass/volume] in Serum or Plasma8.6-10.3FThe Bellevue HospitalCarbon dioxide, total [Moles/volume] in Serum or PlasmaOrdered By: Roshan Reynoso on 10-86-4593YK2 [Moles/Vol]Carbon dioxide, total [Moles/volume] in Serum or Plasma 21.0-31.0White HospitalChloride [Moles/volume] in Serum or PlasmaOrdered By: Roshan Reynoso on 67-93-8981Bwyjsjny [Moles/Vol]Chloride [Moles/volume] in Serum or Rinlef39-793JqricxgfoWhite HospitalComplete Blood Count Auto Diffon 19-48-3778Ifruqksdf (Bld) [#/Vol]0.1 10*3/uLNormal 0.0-0.2The [facility] Health Physician GroupComment on above:Result Comment: PERFORMED BY:[address] [place], [place] [phone] MEDICAL DIRECTORALTHEA MEADOWS M.D.Performed By: #### CMP, CBC ####[facility] [address] [place] [address] USABasophils/100 WBC (Bld)0.8 %Normal.The [facility] Health Physician GroupComment on above:Performed By: #### CMP, CBC ####[facility] [address] [place] [address] USAEosinophils (Bld) [#/Vol]0.3 10*3/uLNormal0.0-0.45 The [facility] Health Physician GroupComment on above:Performed By: #### CMP, CBC ####[address] [address] [place] Eosinophils/100 WBC (Bld)2.9 %Normal.The [facility] Health Physician GroupComment on above:Performed By: #### CMP, CBC ####[address] [address] USAErythrocyte distribution width (RBC) [Ratio]18.5 % High11.9-15.3The [facility] Health Physician GroupComment on above:Performed By: #### CMP, CBC ####[place] [address] USAHematocrit (Bld) [Volume fraction]24.2 %Low34.0-46.4The [facility] Health Physician GroupComment on above:Performed By: #### CMP, CBC ####[place] [address] USAHemoglobin (Bld) [Mass/Vol]8.2 g/dLLow 11.8-15.4The [facility] Health Physician GroupComment on above:Performed By: #### CMP, CBC ####[place] [id number] [place] Lymphocytes (Bld) [#/Vol]1.5 10*3/uLNormal1.00-4.8The [facility] Comment on above:Performed By: #### CMP, CBC ####[place] [id number] USALymphocytes/100 WBC (Bld)14.6 %Normal. The [facility]ett Health Physician GroupComment on above:Performed By: #### CMP, CBC ####[address] [address] USAMCH (RBC) [Entitic mass]32.6 boQrzkpc16.7-34.3The [facility] Health Physician GroupComment on above:Performed By: #### CMP, CBC ####[address] [address] USAMCV (RBC) [Entitic vol]96.1 wVCrqfdn66-734Osj [facility] Physician GroupComment on above:Performed By: #### CMP, CBC ####[place] [address] USAMean Corpuscular HGB Conc33.9 g/mJBxpsup45.0-35.0The [facility] Health Physician GroupComment on above:Performed By: #### CMP, CBC ####[place] [address] USAMonocytes (Bld) [#/Vol]1.2 10*3/uLHigh0.0-0.8 The [facility] Health Physician GroupComment on above:Performed By: #### CMP, CBC ####[place] [address] [place] Monocytes/100 WBC (Bld)12.5 %Normal.The [facility] Health Physician GroupComment on above:Performed By: #### CMP, CBC ####[place] [address] USANeutrophils (Bld) [#/Vol]6.9 10*3/uLNormal1.8-7.7The [facility] Health Physician GroupComment on above:Performed By: #### CMP, CBC ####[place] [address] [place] Neutrophils/100 WBC (Bld)69.2 %Normal.The [facility] Health Physician GroupComment on above:Performed By: #### CMP, CBC ####[place] [address] USANRBC%0.0 /100{WBC}Normal0-0.5The [facility] Health Physician GroupComment on above:Performed By: #### CMP, CBC ####[place] [address] USAPlatelet mean volume (Bld) [Entitic vol]7.7 fLNormal6.3-10.7The [facility] Health Physician GroupComment on above: Performed By: #### CMP, CBC ####[place] [address] USAPlatelets (Bld) [#/Vol]259 10*3/cTQnrpvo033-891Ojb [facility] Physician GroupComment on above:Performed By: #### CMP, CBC ####[address] [address] USARBC (Bld) [#/Vol]2.52 10*6/uLLow3.60-5.00The [facility] Health Physician GroupComment on above:Performed By: #### CMP, CBC ####[address] [address] USAWBC (Bld) [#/Vol]10.0 10*3/uLNormal3.8-11.6The [facility] Health Physician GroupComment on above:Performed By: #### CMP, CBC ####[address] [address] [facility] [[email or web address]] Comprehensive Metabolic Panelon 76-91-9845Azvhkpa [Mass/Vol]3.5 g/dLNormal 3.5-5.7The [facility] Health Physician GroupComment on above:Performed By: #### CMP, CBC ####[address] [address] [place] Albumin/Globulin [Mass ratio]1.1 {ratio}NormalThe [facility] Comment on above:Performed By: #### CMP, CBC ####[address] [address] USAALP [Catalytic activity/Vol]94 U/L Hbmbis32-668Vuw [facility] Physician GroupComment on above:Result Comment: PERFORMED BY:[address] [place], [place] [phone] MEDICAL DIRECTORALTHEA MEADOWS M.D. Performed By: #### CMP, CBC ####[place] [address] USAALT [Catalytic activity/Vol]19 U/LNormal7-52The [facility] Health Physician GroupComment on above:Performed By: #### CMP, CBC ####[place] [id number] USAAnion gap [Moles/Vol]13.4 mmol/LNormal6.0-15.0The [facility] Health Physician GroupComment on above:Performed By: #### CMP, CBC ####[place] [address] USAAST [Catalytic activity/Vol]17 U/SHkscmi81-61Kxu [facility]ician [facility] CenterComment on above:Performed By: #### CMP, CBC ####[place] [address] [place] Bilirubin [Mass/Vol]0.5 mg/dLNormal0.3-1.0The [facility] CenterComment on above:Performed By: #### CMP, CBC ####[place] [address] USACalcium [Mass/Vol]9.5 mg/dLNormal8.6-10.3The [facility] Health Physician [facility] CenterComment on above:Performed By: #### CMP, CBC ####[place] [address] [place] Chloride [Moles/Vol]102 mmol/QHorjtu23-848Uwe [facility] Physician [facility] CenterComment on above:Performed By: #### CMP, CBC ####[place] [address] USACO2 [Moles/Vol]24.5 mmol/BAbackf59.0-31.0The [facility] Physician GroupComment on above:Performed By: #### CMP, CBC ####[place] [address] [place] Creatinine [Mass/Vol]0.87 mg/dLNormal0.60-1.20The [facility] Comment on above:Performed By: #### CMP, CBC ####[place] [id number] USAGFR/1.73 sq M.predicted MDRD (S/P/Bld) [Vol rate/Area]mL/min/{1.73_m2}NormalThe [facility] Physician [facility] CenterComment on above:Performed By: #### CMP, CBC ####[address] [place] [address] USAGlobulin (S) [Mass/Vol]3.1 g/dLNormalThe [facility] Physician GroupComment on above:Performed By: #### CMP, CBC ####[place] [address] USAGlucose [Mass/Vol]127 mg/gVSexc05-561Tlz [facility] Physician GroupComment on above:Result Comment: Random Glucose Reference Range is dependent on time and content of last meal. Glucose of more than 200 mg/dL in a nonstressed, ambulatory subject supports the diagnosis of Diabetes Mellitus. ADA recommended reference rangePerformed By: #### CMP, CBC ####[place] [address] USAPotassium [Moles/Vol]3.9 mmol/LNormal3.5-5.1The [facility] Physician GroupComment on above:Performed By: #### CMP, CBC ####[place] [address] USAProtein [Mass/Vol]6.6 g/dLNormal 6.4-8.9The [facility] Physician GroupComment on above:Performed By: #### CMP, CBC ####[place] [address] USASodium [Moles/Vol]136 mmol/MYdxttm005-115Kcg [facility] Physician GroupComment on above:Performed By: #### CMP, CBC ####[place] [address] USAUrea nitrogen [Mass/Vol]12 mg/dLNormal7-25The [facility] Physician GroupComment on above:Performed By: #### CMP, CBC ####[place] [address] [place] Creatinine [Mass/volume] in Serum or PlasmaOrdered By: Roshan Reynoso on 59-13-6798Pbdjkbolmn [Mass/Vol]Creatinine [Mass/volume] in Serum or Plasma 0.60-1.20White HospitalEosinophils Auto (Bld) [#/Vol]Ordered By: Roshan Reynoso on 30-64-1236Qnjqtzvwgfs (Bld) [#/Vol]Automated eosinophil count0.0-0.45White HospitalEosinophils/100 WBC Auto (Bld) Ordered By: Roshan Reynoso on 62-18-4791Aizeglndcpq/100 WBC (Bld)Automated eosinophil %.White HospitalErythrocyte distribution width Auto (RBC) [Ratio]Ordered By: Roshan Reynoso on 98-69-8356Xnyljlbxcfh distribution width (RBC) [Ratio]Erythrocyte distribution width [Ratio] by Automated funbkAlth27.9-15.3FThe Bellevue HospitalGlobulin Calc (S) [Mass/Vol]Ordered By: Roshan Reynoso on 38-36-4549Uumzlscw (S) [Mass/Vol]Serum globulin measurement by calculation (mass/volume)White HospitalGlucose [Mass/volume] in Serum or PlasmaOrdered By: Roshan Reynoso on 84-31-8370Guzqmzt [Mass/Vol]Glucose [Mass/volume] in Serum or YjszkpZflh16-007 White HospitalComment on above:ADA recommended reference rangeRandom Glucose Reference Range is dependent on time and content of last meal. Glucose of more than 200 mg/dL in a nonstressed, ambulatory subject supports the diagnosisof Diabetes Mellitus.Hematocrit Auto (Bld) [Volume fraction]Ordered By: Roshan Reynoso on 41-34-5440Inzbzvhlwn (Bld) [Volume fraction]Hematocrit [Volume Fraction] of Blood by Automated cczigAei38.0-46.4 White HospitalHemoglobin [Mass/volume] in BloodOrdered By: Roshan Reynoso on 56-86-5047Gtpbbfonay (Bld) [Mass/Vol]Hemoglobin [Mass/volume] in MlauhTar93.8-15.4FThe Bellevue HospitalLeukocytes [#/volume] corrected for nucleated erythrocytes in Blood by Automated counOrdered By: Roshan Reynoso on 90-47-9174DEO corrected for nucl RBC Auto (Bld) [#/Vol] Leukocytes [#/volume] corrected for nucleated erythrocytes in Blood by Automated coun3.8-11.6FThe Bellevue HospitalLymphocytes Auto (Bld) [#/Vol] Ordered By: Roshan Reynoso on 30-91-2896Urppujvbcov (Bld) [#/Vol]Lymphocytes [#/volume] in Blood by Automated count1.00-4.8[facility] Lymphocytes/100 WBC Auto (Bld)Ordered By: Roshan Reynoso on 10-07-2024 Lymphocytes/100 WBC (Bld)Lymphocytes/100 leukocytes in Blood by Automated count. White HospitalMCH Auto (RBC) [Entitic mass]Ordered By: Roshan Reyonso on 84-01-0401AAD (RBC) [Entitic mass]MCH [Entitic mass] by Automated count24.7-34.3FThe Bellevue HospitalMCHC Auto (RBC) [Mass/Vol]Ordered By: Roshan Reynoso on 12-82-5650HWDY (RBC) [Mass/Vol]MCHC [Mass/volume] by Automated count32.0-35.0White HospitalMCV Auto (RBC) [Entitic vol]Ordered By: Roshan Reynoso on 53-89-1858TPL (RBC) [Entitic vol]MCV [Entitic volume] by Automated -036FdpswhrweWhite HospitalMonocytes Auto (Bld) [#/Vol]Ordered By: Roshan Reynoso on 13-86-1028Oanfbutwg (Bld) [#/Vol]Automated blood monocyte countHigh0.0-0.8 White HospitalMonocytes/100 WBC Auto (Bld)Ordered By: Roshan Reynoso on 84-28-3839Rinltlzoh/100 WBC (Bld)Automated monocyte %.White HospitalNeutrophils Auto (Bld) [#/Vol]Ordered By: Roshan Reynoso on 04-81-5277Epsiimaqhmk (Bld) [#/Vol]Neutrophils [#/volume] in Blood by Automated count1.8-7.7FThe Bellevue HospitalNeutrophils/100 WBC Auto (Bld)Ordered By: Roshan Reynoso on 40-95-9181Dnvazvelisd/100 WBC (Bld)Automated neutrophil %.White HospitalNo Panel InformationOrdered By: Roshan Reynoso on 09-91-2583Rgkecoxiz GFR (CKD-EPI)> 60.0 mL/MinWhite HospitalPharmacy Creatinine Clearance (ChemN/AFThe Bellevue HospitalNucleated erythrocytes [Presence] in Blood by Automated count Ordered By: Roshan Reynoso on 13-38-0900Kyitrznyi RBC Auto Ql (Bld)Nucleated erythrocytes [Presence] in Blood by Automated count0-0.5FThe Bellevue HospitalPlatelet mean volume Auto (Bld) [Entitic vol]Ordered By: Roshan Reynoso on 46-85-3415Qzlxlulk mean volume (Bld) [Entitic vol]Platelet mean volume [Entitic volume] in Blood by Automated count6.3-10.7FThe Bellevue HospitalPlatelets Auto (Bld) [#/Vol]Ordered By: Roshan Reynoso on 10-07-2024 Platelets (Bld) [#/Vol]Platelets [#/volume] in Blood by Automated -450 White HospitalPotassium [Moles/volume] in Serum or Plasma Ordered By: Roshan Reynoso on 21-67-2282Kduegwznl [Moles/Vol]Potassium [Moles/volume] in Serum or Plasma3.5-5.1FThe Bellevue HospitalProtein [Mass/volume] in Serum or PlasmaOrdered By: Roshan Reynoso on 89-05-7762Hfhwfwi [Mass/Vol]Protein [Mass/volume] in Serum or Plasma6.4-8.9White HospitalRBC Auto (Bld) [#/Vol]Ordered By: Roshan Reynoso on 96-42-6812USY (Bld) [#/Vol]Erythrocytes [#/volume] in Blood by Automated countLow3.60-5.00 [facility] Health Administrationerum or plasma albumin/globulin mass ratio Ordered By: Roshan Reynoso on 58-07-6398Quvlsuj/Globulin [Mass ratio]Serum or plasma albumin/globulin mass ratioVeterans Health Administrationerum or plasma anion gap determinationOrdered By: Roshan Reynoso on 92-76-3658Azxrt gap [Moles/Vol]Serum or plasma anion gap determination6.0-15.0[facility] Health Administrationodium [Moles/volume] in Serum or PlasmaOrdered By: Roshan Reynoso on 09-99-9387Qkzfro [Moles/Vol]Sodium [Moles/volume] in Serum or Wsmvux298-320 White HospitalUrea nitrogen [Mass/volume] in Serum or Plasma Ordered By: Roshan Reynoso on 43-06-3498Fnxi nitrogen [Mass/Vol]Urea nitrogen [Mass/volume] in Serum or Plasma7-25White HospitalWBC Auto (Bld) [#/Vol]Ordered By: Roshan Reynoso on 20-86-7481SQX (Bld) [#/Vol]Leukocytes [#/volume] in Blood by Automated count3.8-11.6FThe Bellevue Hospital Alanine aminotransferase [Enzymatic activity/volume] in Serum or PlasmaOrdered By: Kush Glez on 02-80-9924ZJW [Catalytic activity/Vol]Alanine aminotransferase [Enzymatic activity/volume] in Serum or Plasma752White HospitalAlbumin [Mass/volume] in Serum or Plasma by Bromocresol green (BCG) dye binding methoOrdered By: tara Glez on 54-37-3709Szsumkq BCG dye [Mass/Vol]Albumin [Mass/volume] in Serum or Plasma by Bromocresol green (BCG) dye binding metho3.5-5.7FThe Bellevue HospitalAlkaline phosphatase [Enzymatic activity/volume] in Serum or PlasmaOrdered By: Kush Hooker on 51-59-5426JAJ [Catalytic activity/Vol]Alkaline phosphatase [Enzymatic activity/volume] in Serum or Tmjdrt71-290CqsncejztWhite Hospital Anisocytosis LM Ql (Bld)Ordered By: Kush Glez on 90-61-0469Wlqerbzxmwdo Ql (Bld)Anisocytosis [Presence] in Blood by Light microscopyWhite HospitalAnisocytosis [Presence] in Blood by Light microscopyOrdered By: Kush Glez on 95-22-4454Pfuzzeevjxbu Ql (Bld)ModerateNormalWhite HospitalComment on above:Performed By: #### SCAN CBC, CMP ####[facility] [address] [place] [address] [facility] [[email or web address]] Aspartate aminotransferase [Enzymatic activity/volume] in Serum or PlasmaOrdered By: Kush Glez on 75-87-5962AAU [Catalytic activity/Vol]Aspartate aminotransferase [Enzymatic activity/volume] in Serum or Ichlhh32-66HyobsdjjwWhite HospitalBasophils Auto (Bld) [#/Vol]Ordered By: Kush Glez on 79-37-9026Jusrrbybi (Bld) [#/Vol]Automated basophil count0.0-0.2FThe Bellevue HospitalBasophils/100 WBC Auto (Bld)Ordered By: Kush Glez on 06-13-4113Huafqgjkw/100 WBC (Bld)Automated basophil %.White HospitalBilirubin.total [Mass/volume] in Serum or PlasmaOrdered By: tara Glez on 26-06-4616Fcslvtbul [Mass/Vol]Bilirubin.total [Mass/volume] in Serum or Plasma0.3-1.0White HospitalCalcium [Mass/volume] in Serum or PlasmaOrdered By: tara Glez on 33-53-6926Tjuwuts [Mass/Vol]Calcium [Mass/volume] in Serum or Plasma8.6-10.3FThe Bellevue HospitalCarbon dioxide, total [Moles/volume] in Serum or PlasmaOrdered By: tara Glez on 18-08-4506JJ0 [Moles/Vol]Carbon dioxide, total [Moles/volume] in Serum or Plasma 21.0-31.0White HospitalChloride [Moles/volume] in Serum or PlasmaOrdered By: [facility] on 83-20-9701Ixwguvvc [Moles/Vol]Chloride [Moles/volume] in Serum or Ndbcsu16-500NsanrnmywWhite Hospital Comprehensive Metabolic Panelon 14-24-5549Ifzygmw [Mass/Vol]3.6 g/dLNormal 3.5-5.7The [facility] Physician GroupComment on above:Performed By: #### SCAN CBC, CMP ####[place] [id number] USAAlbumin/Globulin [Mass ratio]1.1 {ratio}NormalThe [facility] Comment on above:Performed By: #### SCAN CBC, CMP ####[address] [address] USAALP [Catalytic activity/Vol]102 U/L Frvrue45-099Tqg [facility] Physician GroupComment on above:Performed By: #### SCAN CBC, CMP ####[address] [address] USAALT [Catalytic activity/Vol]40 U/LNormal7-52The [facility] Physician [facility] CenterComment on above:Performed By: #### SCAN CBC, CMP ####[address] [address] USAAnion gap [Moles/Vol]12.5 mmol/LNormal6.0-15.0The [facility] Physician [facility] CenterComment on above:Performed By: #### SCAN CBC, CMP ####[place] [id number] USAAST [Catalytic activity/Vol]33 U/ZXagppw00-43Upw [facility] Physician [facility] CenterComment on above:Performed By: #### SCAN CBC, CMP ####[place] [id number] USABilirubin [Mass/Vol]0.5 mg/dL Normal0.3-1.0The [facility] Physician GroupComment on above:Performed By: #### SCAN CBC, CMP ####[place] [id number] USACalcium [Mass/Vol]9.3 mg/dLNormal8.6-10.3The [facility] Comment on above:Performed By: #### SCAN CBC, CMP ####[place] [id number] USAChloride [Moles/Vol]105 mmol/LNormal 98-107The [facility] Physician GroupComment on above:Performed By: #### SCAN CBC, CMP ####[address] [address] [place] CO2 [Moles/Vol]23.7 mmol/ZQmpxpq89.0-31.0The [facility] Physician [facility] CenterComment on above:Performed By: #### SCAN CBC, CMP ####[place] [id number] USACreatinine [Mass/Vol]0.74 mg/dLNormal0.60-1.20 The [facility] Physician GroupComment on above:Performed By: #### SCAN CBC, CMP ####[address] [address] [place] Creatinine Clr Calc Kvpulusf61.67NormHollywood Medical Center Physician GroupComment on above:Result Comment: PERFORMED BY:[address] [place], [place] [id number] MEDICAL DIRECTORALTHEA JIMENEZ M.D.Performed By: #### SCAN CBC, CMP ####[place] [address] [place] [address] USAGFR/1.73 sq M.predicted MDRD (S/P/Bld) [Vol rate/Area]mL/min/{1.73_m2}NormalThe [facility] Physician GroupComment on above:Performed By: #### SCAN CBC, CMP ####[address] [address] USAGlobulin (S) [Mass/Vol]3.4 g/dLGood Samaritan Medical Center Physician [facility]idential CenterComment on above:Performed By: #### SCAN CBC, CMP ####[place] [id number] USAGlucose [Mass/Vol]108 mg/nNQlaz63-186Kpl [facility] Physician GroupComment on above: Result Comment: Random Glucose Reference Range is dependent on time and content of last meal. Glucose of more than 200 mg/dL in a nonstressed, ambulatory subject supports the diagnosis of Diabetes Mellitus. ADA recommended reference rangePerformed By: #### SCAN CBC, CMP ####[address] [address] USAPotassium [Moles/Vol]4.2 mmol/LNormal3.5-5.1 The [facility] Physician GroupComment on above:Performed By: #### SCAN CBC, CMP ####[address] [address] USAProtein [Mass/Vol]7.0 g/dLNormal6.4-8.9The [facility] Physician GroupComment on above: Performed By: #### SCAN CBC, CMP ####[address] [address] USASodium [Moles/Vol]137 mmol/FXaupmb269-843Hxn [facility] Physician GroupComment on above:Performed By: #### SCAN CBC, CMP ####[facility] [address] [place] [address] USAUrea nitrogen [Mass/Vol]14 mg/dLNormal7-25The [facility] Physician GroupComment on above:Performed By: #### SCAN CBC, CMP ####[facility] [address] [place] [address] USACreatinine [Mass/volume] in Serum or Plasma Ordered By: Kush Glez on 94-50-7265Xynmmnahyy [Mass/Vol]Creatinine [Mass/volume] in Serum or Plasma0.60-1.20[facility] Eosinophils Auto (Bld) [#/Vol]Ordered By: Kush Glez on 10-03-2024 Eosinophils (Bld) [#/Vol]Automated eosinophil count0.0-0.45White HospitalEosinophils/100 WBC Auto (Bld)Ordered By: Kush Glez on 02-70-5051Ilqyahehkjb/100 WBC (Bld)Automated eosinophil %.White HospitalErythrocyte distribution width Auto (RBC) [Ratio]Ordered By: Kush Glez on 46-08-9272Mqwhfmfsrmc distribution width (RBC) [Ratio]Erythrocyte distribution width [Ratio] by Automated qstdmCqjb88.9-15.3FThe Bellevue HospitalErythrocyte morphology finding [Identifier] in BloodOrdered By: Kush Glez on 09-56-0241ZJN morphology finding Nom (Bld)RBC morphology White HospitalRB morphology finding Nom (Bld)N/AFThe Bellevue HospitalGlobulin Calc (S) [Mass/Vol]Ordered By: Kush Glez on 34-80-6923Tzczmrcs (S) [Mass/Vol]Serum globulin measurement by calculation (mass/volume)White HospitalGlucose [Mass/volume] in Serum or PlasmaOrdered By: Kush Glez on 48-16-0097Elyhkkr [Mass/Vol]Glucose [Mass/volume] in Serum or HocxnrEsrz68-328WwchhalvbWhite Hospital Comment on above:ADA recommended reference rangeRandom Glucose Reference Range is dependent on time and content of last meal. Glucose of more than 200 mg/dL in a nonstressed, ambulatory subject supports the diagnosisof Diabetes Mellitus. Hematocrit Auto (Bld) [Volume fraction]Ordered By: Kush Glez on 10-03-2024 Hematocrit (Bld) [Volume fraction]Hematocrit [Volume Fraction] of Blood by Automated fbjnpRoe94.0-46.4FThe Bellevue HospitalHemoglobin [Mass/volume] in BloodOrdered By: Kush Glez on 12-89-5248Nxouhhwxml (Bld) [Mass/Vol]Hemoglobin [Mass/volume] in UpguiIbs69.8-15.4FThe Bellevue HospitalLeukocytes [#/volume] corrected for nucleated erythrocytes in Blood by Automated counOrdered By: Kush Glez on 98-54-1729QER corrected for nucl RBC Auto (Bld) [#/Vol]Leukocytes [#/volume] corrected for nucleated erythrocytes in Blood by Automated coun3.8-11.6FThe [facility] Hospital Lymphocytes Auto (Bld) [#/Vol]Ordered By: Kush Glez on 10-03-2024 Lymphocytes (Bld) [#/Vol]Lymphocytes [#/volume] in Blood by Automated count 1.00-4.8White HospitalLymphocytes/100 WBC Auto (Bld)Ordered By: Kush Glez on 27-74-3207Tgijzzrfwdg/100 WBC (Bld)Lymphocytes/100 leukocytes in Blood by Automated count.[facility]H Auto (RBC) [Entitic mass]Ordered By: Kush Glez on 44-62-6168RWP (RBC) [Entitic mass]MCH [Entitic mass] by Automated count24.7-34.3FThe Bellevue HospitalMCHC Auto (RBC) [Mass/Vol]Ordered By: Kush Glez on 05-57-7782YVXD (RBC) [Mass/Vol]MCHC [Mass/volume] by Automated count32.0-35.0White HospitalMCV Auto (RBC) [Entitic vol]Ordered By: Kush Glez on 32-84-7172BIW (RBC) [Entitic vol]MCV [Entitic volume] by Automated qzpup66-661 White HospitalMonocytes Auto (Bld) [#/Vol]Ordered By: Kush Hooker on 69-64-4393Eseviacgq (Bld) [#/Vol]Automated blood monocyte countHigh 0.0-0.8White HospitalMonocytes/100 WBC Auto (Bld)Ordered By: Kush Glez on 52-79-3208Rgzilfvdn/100 WBC (Bld)Automated monocyte %. White HospitalNeutrophils Auto (Bld) [#/Vol]Ordered By: Kush Glez on 74-23-3612Pdtfcaonvpj (Bld) [#/Vol]Neutrophils [#/volume] in Blood by Automated count1.8-7.7FThe Bellevue HospitalNeutrophils/100 WBC Auto (Bld)Ordered By: Kush Glez on 14-55-7970Iyskwwyzcst/100 WBC (Bld) Automated neutrophil %.White HospitalNo Panel Information Ordered By: uKsh Glez on 27-22-6498Rowzthurr GFR (CKD-EPI)> 60.0 mL/Min [facility] HospitalPharmacy Creatinine Clearance (Chem75.67 White HospitalNucleated erythrocytes [Presence] in Blood by Automated countOrdered By: Kush Glez on 99-20-1010Obizottop RBC Auto Ql (Bld)Nucleated erythrocytes [Presence] in Blood by Automated count0-0.5FThe Bellevue HospitalOvalocytes [Presence] in Blood by Light microscopy Ordered By: Kush Glez on 50-82-7434Qrxporenip LM Ql (Bld)Ovalocyte detectionWhite HospitalOvalocytes LM Ql (Bld)Moderate White HospitalPlatelet adequacy [Presence] in Blood by Light microscopyOrdered By: Kush Glez on 07-59-8744Ukosshcvv LM Ql (Bld)Platelet adequacy [Presence] in Blood by Light microscopyNoOhioHealth Arthur G.H. Bing, MD, Cancer CenterPlatelets LM Ql (Bld)NormalNormUniversity Hospitals Elyria Medical Center Platelet mean volume Auto (Bld) [Entitic vol]Ordered By: Kush Glez on 96-02-4920Ntyejiuj mean volume (Bld) [Entitic vol]Platelet mean volume [Entitic volume] in Blood by Automated count6.3-10.7FThe [facility]vue Hospital Platelet morphology finding [Identifier] in BloodOrdered By: Kush Glez on 17-58-3308Uidjkzks morphology finding Nom (Bld)Platelet morphology finding [Identifier] in BloodNormUniversity Hospitals Elyria Medical CenterPlatelet morphology finding Nom (Bld)NormalNoOhioHealth Arthur G.H. Bing, MD, Cancer CenterPlatelets Auto (Bld) [#/Vol]Ordered By: Kush Glez on 29-22-2964Itmrvxzeb (Bld) [#/Vol] Platelets [#/volume] in Blood by Automated -122RrfblquxyWhite HospitalPoikilocytosis [Presence] in Blood by Light microscopyOrdered By: Kush Glez on 05-19-6501Wkyukwamugyelq LM Ql (Bld)Poikilocytosis [Presence] in Blood by Light microscopyWhite HospitalPoikilocytosis LM Ql (Bld)ModerateWhite HospitalPolychromasia [Presence] in Blood by Light microscopyOrdered By: Kush Glez on 05-15-0375Cbldkluaphboz LM Ql (Bld)Polychromasia [Presence] in Blood by Light microscopyWhite HospitalPolychromasia LM Ql (Bld)SlightKettering Health Washington Township Healthon 53-82-9192VkfwuyqpgaEndless Mountains Health Systems Case Information Case Priority: None Programs: -- Referral Source: Site Worker Referral Reason: Care coordination Case Type: Transition Care Management Risk Score: -- Case Status: Enrolled (September 26, 2024) Date Assigned: September 26, 2024 Assigned By: Noah Hester Date Enrolled: September 26, 2024 Assigned Primary Personnel: Noah Hester Assigned Secondary Personnel: -- Case Physician: Michael Holley MD Ongoing Abnormal EKG ADHD Anxiety Breast cancer of lower-inner quadrant of left female breast Complex regional pain syndrome of lower limb Dysuria Essential tremor HTN (hypertension) Hx of osteoarthritis Idiopathic polyneuropathy Infected breast tissue 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 Bales today and will discuss weakness and fatigue. [...] update, see note. Created By: Noah Hester [facility]aritan HospitalPotassium [Moles/volume] in Serum or PlasmaOrdered By: Kush Glez on 10-03-2024 Potassium [Moles/Vol]Potassium [Moles/volume] in Serum or Plasma3.5-5.1FThe Bellevue HospitalProtein [Mass/volume] in Serum or PlasmaOrdered By: Kush NmOdell on 96-31-1419Uxidoze [Mass/Vol]Protein [Mass/volume] in Serum or Plasma6.4-8.9White HospitalRBC Auto (Bld) [#/Vol]Ordered By: Kush BalesNhung on 92-90-0799NMI (Bld) [#/Vol]Erythrocytes [#/volume] in Blood by Automated countLow3.60-5.00Veter[facility] Health Administrationcan and CBCon 30-89-8482Fbehkqsxb (Bld) [#/Vol]0.1 10*3/uLNormal0.0-0.2The [facility] Physician GroupComment on above:Performed By: #### SCAN CBC, CMP ####[place] [id number] USABasophils/100 WBC (Bld)0.9 % Normal.The [facility] Health Physician GroupComment on above:Performed By: #### SCAN CBC, CMP ####[place] [id number] USAEosinophils (Bld) [#/Vol]0.0 10*3/uLNormal0.0-0.45The [facility] Physician GroupComment on above:Performed By: #### SCAN CBC, CMP ####[address] [address] USAEosinophils/100 WBC (Bld)0.4 % Normal.The [facility] Health Physician GroupComment on above:Performed By: #### SCAN CBC, CMP ####[place] [id number] USAErythrocyte distribution width (RBC) [Ratio]16.5 %High11.9-15.3The [facility] Health Physician GroupComment on above:Performed By: #### SCAN CBC, CMP ####[place] [id number] USAHematocrit (Bld) [Volume fraction]26.6 %Low34.0-46.4The [facility] Health Physician GroupComment on above:Performed By: #### SCAN CBC, CMP ####[place] [address] USAHemoglobin (Bld) [Mass/Vol]8.9 g/dLLow 11.8-15.4The [facility] Physician GroupComment on above:Performed By: #### SCAN CBC, CMP ####[place] [address] USALymphocytes (Bld) [#/Vol]1.7 10*3/uLNormal1.00-4.8The [facility] Health Physician GroupComment on above:Performed By: #### SCAN CBC, CMP ####[place] [address] USALymphocytes/100 WBC (Bld)17.1 %Normal.The [facility] Physician GroupComment on above:Performed By: #### SCAN CBC, CMP ####[place] [address] USAMCH (RBC) [Entitic mass]32.1 jgKasqxp01.7-34.3The [facility] Comment on above:Performed By: #### SCAN CBC, CMP ####[place] [address] USAMCV (RBC) [Entitic vol]95.7 fLNormal 80-100The [facility] Health Physician GroupComment on above:Performed By: #### SCAN CBC, CMP ####[place] [address] [place] Mean Corpuscular HGB Conc33.5 g/oNKthpdi08.0-35.0The [facility] Comment on above:Performed By: #### SCAN CBC, CMP ####[place] [address] USAMonocytes (Bld) [#/Vol]1.2 10*3/uLHigh 0.0-0.8The [facility] Physician GroupComment on above:Performed By: #### SCAN CBC, CMP ####[address] [address] USAMonocytes/100 WBC (Bld)12.5 %Normal.The [facility] Physician GroupComment on above:Performed By: #### SCAN CBC, CMP ####[address] [address] USANeutrophils (Bld) [#/Vol]6.8 10*3/uLNormal 1.8-7.7The [facility] Physician GroupComment on above:Performed By: #### SCAN CBC, CMP ####[address] [address] USANeutrophils/100 WBC (Bld)69.1 %Normal.The [facility] Physician GroupComment on above:Performed By: #### SCAN CBC, CMP ####[address] [address] USANRBC%0.1 /100{WBC}Normal0-0.5The [facility] Physician GroupComment on above:Performed By: #### SCAN CBC, CMP ####[address] [address] USAOvalocytesModerate NormalThe [facility] Health Physician GroupComment on above:Performed By: #### SCAN CBC, CMP ####[address] [address] [place] Platelet EstimateNormalNormalNormHollywood Medical Center Physician GroupComment on above:Performed By: #### SCAN CBC, CMP ####[address] [address] USAPlatelet mean volume (Bld) [Entitic vol]7.1 fL Normal6.3-10.7The [facility] Physician GroupComment on above:Performed By: #### SCAN CBC, CMP ####[address] [address] USAPlatelet MorphologyNormalNormalNormHollywood Medical Center [facility] Comment on above:Result Comment: PERFORMED BY:[address], [place] [phone] MEDICAL DIRECTORALTHEA MEADOWS M.D.Performed By: #### SCAN CBC, CMP ####[address] [place] [address] [place] Platelets (Bld) [#/Vol]321 10*3/eDSkqmbd041-893Pqw [facility] Comment on above:Performed By: #### SCAN CBC, CMP ####[address] [address] USAPoikilocytosisModerateGood Samaritan Medical Center Physician GroupComment on above:Performed By: #### SCAN CBC, CMP ####[place] [id number] [facility] [[email or web address]] PolychromasiaSlightGood Samaritan Medical Center Physician GroupComment on above:Performed By: #### SCAN CBC, CMP ####[id number] USARBC (Bld) [#/Vol]2.78 10*6/uLLow3.60-5.00The [facility] Physician GroupComment on above:Performed By: #### SCAN CBC, CMP ####[id number] USAWBC (Bld) [#/Vol]9.8 10*3/uLNormal3.8-11.6The [facility] Physician GroupComment on above:Performed By: #### SCAN CBC, CMP ####[id number] USASerum or plasma albumin/globulin mass ratio Ordered By: Kush Glez on 97-10-6132Mfoooag/Globulin [Mass ratio]Serum or plasma albumin/globulin mass ratioVeterans Health Administrationerum or plasma anion gap determinationOrdered By: Kush Glez on 69-84-1847Jvoke gap [Moles/Vol]Serum or plasma anion gap determination6.0-15.0Veterans Health Administrationodium [Moles/volume] in Serum or PlasmaOrdered By: Kush Glez on 31-81-2846Aiuoji [Moles/Vol]Sodium [Moles/volume] in Serum or Gtmtkt358-994 White HospitalUrea nitrogen [Mass/volume] in Serum or Plasma Ordered By: Kush Glez on 06-72-0922Folp nitrogen [Mass/Vol]Urea nitrogen [Mass/volume] in Serum or Plasma7-25White HospitalWBC Auto (Bld) [#/Vol]Ordered By: Kush Glez on 31-42-8657OWS (Bld) [#/Vol]Leukocytes [#/volume] in Blood by Automated count3.8-11.6FThe [facility] Hospital Population Healthon 49-38-3301PzdlknmtaxEndless Mountains Health Systems Case Information Case Priority: None Programs: -- Referral Source: Site Worker Referral Reason: Care coordination Case Type: Transition [...] of osteoarthritis Idiopathic polyneuropathy Infected breast tissue 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 patient has declined at this time, POV / (3 month follow up) Did you understand [...] yourself? yes Do you have Home Health? [facility] Called patient for initial Transitional Care [...] note above information obtai (more content not included)...[facility] Health SystemAlanine aminotransferase [Enzymatic activity/volume] in Serum or PlasmaOrdered By: Tyree Rdz on 47-18-9101BCB [Catalytic activity/Vol]Alanine aminotransferase [Enzymatic activity/volume] in Serum or PlasmaHigh7-52White HospitalAlbumin [Mass/volume] in Serum or Plasma by Bromocresol green (BCG) dye binding methoOrdered By: Tyree Rdz on 81-15-6229Yncpsdq BCG dye [Mass/Vol]Albumin [Mass/volume] in Serum or Plasma by Bromocresol green (BCG) dye binding methoLow3.5-5.7FThe Bellevue HospitalAlkaline phosphatase [Enzymatic activity/volume] in Serum or Plasma Ordered By: Tyree Rdz on 18-87-8330IJU [Catalytic activity/Vol]Alkaline phosphatase [Enzymatic activity/volume] in Serum or BpeaqbBdse19-428YuinnthueWhite HospitalAnisocytosis LM Ql (Bld)Ordered By: Tyree Rdz on 04-84-3877Dukwfzjyhlge Ql (Bld)Anisocytosis [Presence] in Blood by Light microscopyWhite HospitalAspartate aminotransferase [Enzymatic activity/volume] in Serum or PlasmaOrdered By: Tyree Rdz on 22-54-2222VBS [Catalytic activity/Vol]Aspartate aminotransferase [Enzymatic activity/volume] in Serum or PwgsxrUebu78-66FbgwdngfqWhite HospitalBand form neutrophils/100 WBC Manual cnt (Bld)Ordered By: Tyree Rdz on 2024 Band form neutrophils/100 WBC (Bld)Peripheral white blood cell differential % bands, microscopic exam0-5FThe Bellevue HospitalBasophils Auto (Bld) [#/Vol]Ordered By: Tyree Rdz on 26-13-3451Qwijnuusu (Bld) [#/Vol]Automated basophil countWhite HospitalBasophils/100 WBC Auto (Bld) Ordered By: Tyree Rdz on 51-73-1058Strnduopq/100 WBC (Bld)Automated basophil %White HospitalBilirubin.total [Mass/volume] in Serum or PlasmaOrdered By: Tyree Rdz on 65-39-9291Ofzracpyw [Mass/Vol] Bilirubin.total [Mass/volume] in Serum or Plasma0.3-1.0White HospitalCalcium [Mass/volume] in Serum or PlasmaOrdered By: Tyree Rdz on 57-21-8270Jxnwpdc [Mass/Vol]Calcium [Mass/volume] in Serum or Plasma Low8.6-10.3FThe Bellevue HospitalCarbon dioxide, total [Moles/volume] in Serum or PlasmaOrdered By: Tyree Rdz on 65-10-3605XK5 [Moles/Vol] Carbon dioxide, total [Moles/volume] in Serum or Vadoqi54.0-31.0White HospitalChloride [Moles/volume] in Serum or PlasmaOrdered By: Tyree Rdz on 44-52-7604Hwvirgeb [Moles/Vol]Chloride [Moles/volume] in Serum or Vjakul50-835VhqjzkxcqWhite HospitalComprehensive Metabolic Panelon 74-54-1693Mnpfhbw [Mass/Vol]2.9 g/dLLow3.5-5.7The [facility] Physician GroupComment on above:Performed By: #### DIFF CBC, CMP ####[address] [place] [address] USAAlbumin/Globulin [Mass ratio] 1.0 {ratio}NormalThe [facility] Health Physician GroupComment on above:Performed By: #### DIFF CBC, CMP ####[address] [address] USAALP [Catalytic activity/Vol]129 U/ZMpuz96-553Dah [facility] Physician GroupComment on above:Performed By: #### DIFF CBC, CMP ####[address] [address] USAALT [Catalytic activity/Vol] 118 U/LHigh7-52The [facility] Health Physician GroupComment on above:Performed By: #### DIFF CBC, CMP ####[address] [address] USAAnion gap [Moles/Vol]10.2 mmol/LNormal6.0-15.0The [facility] Physician GroupComment on above:Performed By: #### DIFF CBC, CMP ####[address] [address] USAAST [Catalytic activity/Vol] 138 U/VWvtu40-41Qkj [facility] Physician GroupComment on above:Performed By: #### DIFF CBC, CMP ####[address] [address] USABilirubin [Mass/Vol]0.5 mg/dLNormal0.3-1.0The [facility] Comment on above:Performed By: #### DIFF CBC, CMP ####[address] [address] USACalcium [Mass/Vol]8.5 mg/dLLow 8.6-10.3The [facility] Physician GroupComment on above:Performed By: #### DIFF CBC, CMP ####[facility] [place] [address] USAChloride [Moles/Vol]103 mmol/SAioina12-096Ium [facility] Comment on above:Performed By: #### DIFF CBC, CMP ####[address] [place] [address] USACO2 [Moles/Vol]26.9 mmol/LNormal 21.0-31.0The [facility] Physician GroupComment on above:Performed By: #### DIFF CBC, CMP ####[address] [place] [address] USACreatinine [Mass/Vol]0.62 mg/dLNormal0.60-1.20The [facility] Comment on above:Performed By: #### DIFF CBC, CMP ####[address] [address] USACreatinine Clr Calc Oamtvlui24.44 NormalThe [facility] Health Physician GroupComment on above:Result Comment: PERFORMED BY:[address]SumiVESUVIUS, [place] [phone] MEDICAL DIRECTORALTHEA MEADOWS M.D.Performed By: #### DIFF CBC, CMP ####[address] [address] USAGFR/1.73 sq M.predicted MDRD (S/P/Bld) [Vol rate/Area]mL/min/{1.73_m2} NormalAdventhealth Lake Placid Physician [facility]idential CenterComment on above:Performed By: #### DIFF CBC, CMP ####[address] [address] [place] Globulin (S) [Mass/Vol]3.0 g/dLNormalThe [facility] Physician GroupComment on above:Performed By: #### DIFF CBC, CMP ####[address] [address] USAGlucose [Mass/Vol]92 mg/gDEkcfoq05-842Gja [facility] Physician GroupComment on above:Result Comment: Random Glucose Reference Range is dependent on time and content of last meal. Glucose of more than 200 mg/dL in a nonstressed, ambulatory subject supports the diagnosis of Diabetes Mellitus. ADA recommended reference rangePerformed By: #### DIFF CBC, CMP ####[address] Potassium [Moles/Vol]4.1 mmol/LNormal3.5-5.1The [facility] Physician [facility] CenterComment on above:Performed By: #### DIFF CBC, CMP ####[place] [address] USAProtein [Mass/Vol]5.9 g/dLLow6.4-8.9 The [facility] Physician GroupComment on above:Performed By: #### DIFF CBC, CMP ####[place] [address] USASodium [Moles/Vol]136 mmol/HZmjrki998-296Zcw [facility] Physician GroupComment on above: Performed By: #### DIFF CBC, CMP ####[place] [address] USAUrea nitrogen [Mass/Vol]10 mg/dLNormal7-25The [facility] Physician GroupComment on above:Performed By: #### DIFF CBC, CMP ####[place] [address] [place] Creatinine [Mass/volume] in Serum or PlasmaOrdered By: Tyree Rdz on 99-16-1489Omwhtrgauy [Mass/Vol]Creatinine [Mass/volume] in Serum or Plasma 0.60-1.20White HospitalDi and CBCon 77-20-3768Gpwaovsppsyn Ql (Bld)SlightNormalThe [facility] Physician GroupComment on above:Performed By: #### DIFF CBC, CMP ####[place] [address] USABand form neutrophils/100 WBC (Bld)5 %Normal0-5The [facility] Physician [facility]idential CenterComment on above:Performed By: #### DIFF CBC, CMP ####[place] [address] USAErythrocyte distribution width (RBC) [Ratio]14.8 %Pbijao06.9-15.3The [facility] Physician GroupComment on above:Performed By: #### DIFF CBC, CMP ####[place] [address] USAHematocrit (Bld) [Volume fraction]22.7 %Low34.0-46.4The [facility] Physician GroupComment on above: Performed By: #### DIFF CBC, CMP ####[place] [address] USAHemoglobin (Bld) [Mass/Vol]7.4 g/dLLow11.8-15.4The [facility] Physician GroupComment on above:Performed By: #### DIFF CBC, CMP ####[place] [address] [place] Lymphocytes/100 WBC (Bld)3 %Zqg15-52Sgx [facility] Physician GroupComment on above:Performed By: #### DIFF CBC, CMP ####[address] StreetMCH (RBC) [Entitic mass]30.0 oaFkeqel22.7-34.3 The [facility] Physician GroupComment on above:Performed By: #### DIFF CBC, CMP ####[place] [address] USAMCV (RBC) [Entitic vol]91.5 kZAcqerj78-400Ehq [facility] Physician GroupComment on above:Performed By: #### DIFF CBC, CMP ####[place] [address] USAMean Corpuscular HGB Conc32.8 g/dLNormal 32.0-35.0The [facility] Physician GroupComment on above:Performed By: #### DIFF CBC, CMP ####[place] [address] USAMetamyelocytes3 %High0-0The [facility] Health Physician GroupComment on above: Performed By: #### DIFF CBC, CMP ####[place] [address] USAMonocytes/100 WBC (Bld)4 %Normal2-11The [facility] Physician GroupComment on above:Performed By: #### DIFF CBC, CMP ####[address] [address] USAMyelocytes4 %High0-0 The [facility] Physician GroupComment on above:Performed By: #### DIFF CBC, CMP ####[address] [address] [place] Nucleated Red Blood Cell1 /100{WBC}High0-0The [facility] Physician GroupComment on above:Performed By: #### DIFF CBC, CMP ####[address] [address] USAOvalocytesSlightNoAtrium Health Huntersville Physician GroupComment on above:Performed By: #### DIFF CBC, CMP ####[address] [address] USAPlatelet EstimateNormalNormal NormalThe [facility] Physician GroupComment on above:Performed By: #### DIFF CBC, CMP ####[address] [address] [place] Platelet mean volume (Bld) [Entitic vol]8.3 fLNormal6.3-10.7The [facility] Physician GroupComment on above:Performed By: #### DIFF CBC, CMP ####[address] [address] USAPlatelet Morphology NormalNormalNormSpanish Peaks Regional Health CenterComment on above:Result Comment: PERFORMED BY:[address] [place], [place] [phone] MEDICAL DIRECTORALTHEA MEADOWS M.D. Performed By: #### DIFF CBC, CMP ####[address] [address] USAPlatelets (Bld) [#/Vol]365 10*3/lZXvkjvf013-447Vqw [facility] Physician GroupComment on above:Performed By: #### DIFF CBC, CMP ####[address] [address] [place] PoikilocytosisSlightNoAtrium Health Huntersville Physician GroupComment on above: Performed By: #### DIFF CBC, CMP ####[address]PolychromasiaModerateNoAtrium Health Huntersville Physician GroupComment on above:Performed By: #### DIFF CBC, CMP ####[place] [address] USARBC (Bld) [#/Vol]2.48 10*6/uL Low3.60-5.00The [facility] Physician GroupComment on above:Performed By: #### DIFF CBC, CMP ####[address]SchistocytesSAlleghany Health Physician GroupComment on above: Performed By: #### DIFF CBC, CMP ####[place] [address] USASegmented neutrophils/100 WBC (Bld)81 %Ctvz66-82HklAdventhealth Lake Placid Physician GroupComment on above:Performed By: #### DIFF CBC, CMP ####[address] StomatocytesSlightGood Samaritan Medical Center Physician GroupComment on above:Performed By: #### DIFF CBC, CMP ####[place] [address] USAWBC (Bld) [#/Vol]11.9 10*3/uLHigh3.8-11.6The [facility] Physician GroupComment on above:Performed By: #### DIFF CBC, CMP ####[address] ERYTHROPOETIN (EPO), SERUMon 14-38-3706GWINLWLGEKCKU (EPO), SERUM47.3 m[iU]/mL High2.6 - 18.5 m[iU]/mLNCLEVELAND AREA HOSPITAL – CLEVELAND HealthcareComment on above:[employer] Holdingsel DxI 800 Immunoassay System Values obtained with different assay methods or kits cannot be used interchangeably. Results cannot be interpreted as absolute evidence of the presence or absence of malignant disease. Performed at: - [facility] [id number] Crack Off Person: Anthony Keane PhD, Phone: [phone] Interpretation and review of laboratory resultsAbnormalNOCarondelet Health HealthcareEosinophils Auto (Bld) [#/Vol]Ordered By: Tyree Rdz on 59-20-9104Xbljjcojjky (Bld) [#/Vol]Automated eosinophil countWhite HospitalEosinophils/100 WBC Auto (Bld)Ordered By: Tyree Rdz on 81-59-6784Ijjozpjaimj/100 WBC (Bld)Automated eosinophil %White HospitalErythrocyte distribution width Auto (RBC) [Ratio]Ordered By: Tyree Rdz on 80-13-3342Sdhcsezzayy distribution width (RBC) [Ratio] Erythrocyte distribution width [Ratio] by Automated count11.9-15.3FThe Bellevue HospitalErythrocyte morphology finding [Identifier] in Blood Ordered By: Tyree Rdz on 47-66-5231FPQ morphology finding Nom (Bld)RBC morphologyWhite HospitalGlobulin Calc (S) [Mass/Vol]Ordered By: Tyree Rdz on 34-56-2424Epuzgdrj (S) [Mass/Vol]Serum globulin measurement by calculation (mass/volume)White HospitalGlucose [Mass/volume] in Serum or PlasmaOrdered By: Tyree Rdz on 2024 Glucose [Mass/Vol]Glucose [Mass/volume] in Serum or Ccosud86-616JpnbwwplmWhite HospitalComment on above:ADA recommended reference rangeRandom Glucose Reference Range is dependent on time and content of last meal. Glucose of more than 200 mg/dL in a nonstressed, ambulatory subject supports the diagnosisof Diabetes Mellitus.Hematocrit Auto (Bld) [Volume fraction]Ordered By: Tyree Rdz on 11-53-1599Hhvqlxrwon (Bld) [Volume fraction]Hematocrit [Volume Fraction] of Blood by Automated tswuiIyr40.0-46.4FThe Bellevue HospitalHemoglobin [Mass/volume] in BloodOrdered By: Tyree Rdz on 03-58-8195Quzqdnlxjm (Bld) [Mass/Vol]Hemoglobin [Mass/volume] in BloodLow 11.8-15.4FThe Bellevue HospitalLeukocytes [#/volume] corrected for nucleated erythrocytes in Blood by Automated counOrdered By: Tyree Rdz on 10-89-6437YEB corrected for nucl RBC Auto (Bld) [#/Vol]Leukocytes [#/volume] corrected for nucleated erythrocytes in Blood by Automated counHigh3.8-11.6 White HospitalLymphocytes Auto (Bld) [#/Vol]Ordered By: Tyree Rdz on 84-82-9443Hgkulwpyyan (Bld) [#/Vol]Lymphocytes [#/volume] in Blood by Automated countWhite HospitalLymphocytes/100 WBC Auto (Bld)Ordered By: Tyree Rdz on 81-41-1094Pbvkhirieah/100 WBC (Bld) Lymphocytes/100 leukocytes in Blood by Automated countWhite HospitalLymphocytes/100 WBC Manual cnt (Bld)Ordered By: Tyree Rdz on 91-32-1982Xnyqgmtkayf/100 WBC (Bld)Lymphocytes/100 leukocytes in Blood by Manual tnedgNbk85-03CgeqaycqvWhite HospitalMCH Auto (RBC) [Entitic mass] Ordered By: Tyree Rdz on 14-14-6747DBK (RBC) [Entitic mass]MCH [Entitic mass] by Automated count24.7-34.3FThe Bellevue HospitalMCHC Auto (RBC) [Mass/Vol]Ordered By: Tyree Rdz on 84-95-7058HLXC (RBC) [Mass/Vol] MCHC [Mass/volume] by Automated count32.0-35.0[facility] MCV Auto (RBC) [Entitic vol]Ordered By: Tyree Rdz on 72-39-3893XNN (RBC) [Entitic vol]MCV [Entitic volume] by Automated elriu54-609NzkvyfcifWhite HospitalMetamyelocytes/100 WBC Manual cnt (Bld)Ordered By: Tyree Rdz on 56-10-5473Svalhethnvqxeg/100 WBC (Bld)Metamyelocytes/100 leukocytes in Blood by Manual countHigh0-0White HospitalMonocytes Auto (Bld) [#/Vol]Ordered By: Tyree Rdz on 65-90-1991Rjepywahl (Bld) [#/Vol]Automated blood monocyte countWhite HospitalMonocytes/100 WBC Auto (Bld)Ordered By: Tyree Levymood on 99-84-0578Sjmmcqqar/100 WBC (Bld)Automated monocyte %White HospitalMonocytes/100 WBC Manual cnt (Bld) Ordered By: Tyree Rdz on 44-43-3256Etrjyyssu/100 WBC (Bld)Monocytes/100 leukocytes in Blood by Manual count2-11[facility] Myelocytes/100 WBC Manual cnt (Bld)Ordered By: Tyree Rdz on 2024 Myelocytes/100 WBC (Bld)Myelocytes/100 leukocytes in Blood by Manual countHigh 0-0White HospitalNeutrophils Auto (Bld) [#/Vol]Ordered By: Tyree Rdz on 39-09-2880Mngsacpgidi (Bld) [#/Vol]Neutrophils [#/volume] in Blood by Automated countWhite HospitalNeutrophils/100 WBC Auto (Bld)Ordered By: Tyree Rdz on 95-56-6696Wcxdmlknrwx/100 WBC (Bld) Automated neutrophil %White HospitalNo Panel Information Ordered By: Tyree Rdz on 30-62-6284Gasgbjiml GFR (CKD-EPI)> 60.0 mL/Min White HospitalPharmacy Creatinine Clearance (Chem89.44 White HospitalNucleated RBC/100 WBC Manual cnt (Bld) [Ratio] Ordered By: Tyree Rdz on 06-22-0577Hyhaejdfv RBC/100 WBC (Bld) [Ratio] Nucleated erythrocytes/100 leukocytes [Ratio] in Blood by Manual countHigh0-0 White HospitalNucleated erythrocytes [Presence] in Blood by Automated countOrdered By: Tyree Rdz on 54-92-6322Ofizrhban RBC Auto Ql (Bld)Nucleated erythrocytes [Presence] in Blood by Automated countWhite HospitalOvalocytes [Presence] in Blood by Light microscopyOrdered By: Tyree Rdz on 57-94-0593Esqxsodmxk LM Ql (Bld)Ovalocyte detection White HospitalPlatelet adequacy [Presence] in Blood by Light microscopyOrdered By: Tyree Rdz on 18-72-7527Wfzxazudk LM Ql (Bld)Platelet adequacy [Presence] in Blood by Light microscopyNormUniversity Hospitals Elyria Medical CenterPlatelet mean volume Auto (Bld) [Entitic vol]Ordered By: Tyree Rdz on 85-98-2506Ifthoonn mean volume (Bld) [Entitic vol]Platelet mean volume [Entitic volume] in Blood by Automated count6.3-10.7FThe Bellevue HospitalPlatelet morphology finding [Identifier] in BloodOrdered By: Tyree Rdz on 56-66-4086Wddllkdn morphology finding Nom (Bld)Platelet morphology finding [Identifier] in BloodNoOhioHealth Arthur G.[facility], [facility] Platelets Auto (Bld) [#/Vol]Ordered By: Tyree Rdz on 20-93-0107Yxopntzyf (Bld) [#/Vol]Platelets [#/volume] in Blood by Automated wupim392-498IxjyeijndWhite HospitalPoikilocytosis [Presence] in Blood by Light microscopy Ordered By: Tyree Rdz on 86-50-0114Gceexcifwqdsmk LM Ql (Bld) Poikilocytosis [Presence] in Blood by Light microscopyWhite HospitalPolychromasia [Presence] in Blood by Light microscopyOrdered By: Tyree Rdz on 41-16-6533Whpxftwywzlcy LM Ql (Bld)Polychromasia [Presence] in Blood by Light microscopyWhite HospitalPotassium [Moles/volume] in Serum or PlasmaOrdered By: Tyree Rdz on 21-62-1446Ogypfiblc [Moles/Vol] Potassium [Moles/volume] in Serum or Plasma3.5-5.1FThe Bellevue HospitalProtein [Mass/volume] in Serum or PlasmaOrdered By: Tyree Rdz on 82-65-7394Htnbure [Mass/Vol]Protein [Mass/volume] in Serum or PlasmaLow6.4-8.9 White HospitalRBC Auto (Bld) [#/Vol]Ordered By: Tyree Rdz on 83-36-5475HXY (Bld) [#/Vol]Erythrocytes [#/volume] in Blood by Automated countLow3.60-5.00[facility] Health Administrationchistocytes [Presence] in Blood by Light microscopyOrdered By: Tyree Rdz on 2024 Schistocytes LM Ql (Bld)Schistocytes [Presence] in Blood by Light microscopy [facility] Health Administrationegmented neutrophils/100 WBC Manual cnt (Bld) Ordered By: Tyree Rdz on 67-93-1018Bxkuufebu neutrophils/100 WBC (Bld) Manual blood segmented neutrophils/100 gkuibuejqzLppy36-50AjqwtaslbVeterans Health Administrationerum or plasma albumin/globulin mass ratioOrdered By: Tyree Rdz on 07-79-2927Kdntzfz/Globulin [Mass ratio]Serum or plasma albumin/globulin mass ratioVeterans Health Administrationerum or plasma anion gap determinationOrdered By: Tyree Rdz on 35-19-1997Eafkb gap [Moles/Vol]Serum or plasma anion gap determination6.0-15.0[facility] Health Administrationodium [Moles/volume] in Serum or PlasmaOrdered By: Tyree Rdz on 16-29-0887Rcorow [Moles/Vol]Sodium [Moles/volume] in Serum or Plasma 136-145V[facility] Health Administrationtomatocytes [Presence] in Blood by Light microscopyOrdered By: Tyree Rdz on 21-84-6140Ihwuaadzymwa LM Ql (Bld)Red blood cell stomatocyte detectionWhite HospitalUrea nitrogen [Mass/volume] in Serum or PlasmaOrdered By: Tyree Rdz on 06-32-3607Yhbd nitrogen [Mass/Vol]Urea nitrogen [Mass/volume] in Serum or Plasma 7-25White HospitalWBC Auto (Bld) [#/Vol]Ordered By: Tyree Rdz on 65-61-7543NJJ (Bld) [#/Vol]Leukocytes [#/volume] in Blood by Automated countHigh3.8-11.6FThe Bellevue HospitalBasophils/100 WBC Manual cnt (Bld)Ordered By: Tyree Rdz on 55-21-2884Wuixcsmro/100 WBC (Bld) Basophils/100 leukocytes in Blood by Manual count0-2FThe Bellevue HospitalComprehensive Metabolic Panelon 07-12-8285Epneaxy [Mass/Vol]3.0 g/dLLow 3.5-5.7The [facility] Physician GroupComment on above:Performed By: #### CMP, LISSET, DIFF CBC, ESR, [id number], FE and TIBC ####[facility] [address] [place] [address] USAAlbumin/Globulin [Mass ratio]1.0 {ratio} NormalThe [facility]arnett Health Physician GroupComment on above:Performed By: #### CMP, LISSET, DIFF CBC, ESR, [id number], FE and TIBC ####[facility] [address] [place] [address] USAALP [Catalytic activity/Vol]147 U/ADqlc31-213 The [facility] Physician GroupComment on above:Performed By: #### CMP, LISSET, DIFF CBC, ESR, [id number], FE and TIBC ####[facility] [address] [place] [address] USAALT [Catalytic activity/Vol]122 U/LHigh7-52The [facility] Physician GroupComment on above:Performed By: #### CMP, LISSET, DIFF CBC, ESR, [id number], FE and TIBC ####[facility] [place] [address] USAAnion gap [Moles/Vol]12.3 mmol/LNormal6.0-15.0The [facility] Physician GroupComment on above:Performed By: #### CMP, LISSET, DIFF CBC, ESR, [id number], FE and TIBC ####[address] [address] USAAST [Catalytic activity/Vol]151 U/TOrlv34-46Yag [facility] Physician GroupComment on above:Performed By: #### CMP, LISSET, DIFF CBC, ESR, [id number], FE and TIBC ####[address] [address] USABilirubin [Mass/Vol]0.6 mg/dLNormal0.3-1.0The [facility] Physician GroupComment on above:Performed By: #### CMP, LISSET, DIFF CBC, ESR, [id number], FE and TIBC ####[address] [address] USACalcium [Mass/Vol]8.6 mg/dLNormal8.6-10.3The [facility] Physician GroupComment on above:Performed By: #### CMP, LISSET, DIFF CBC, ESR, [id number], FE and TIBC ####[place] [id number] USAChloride [Moles/Vol]102 mmol/GDkdxni34-367Ohr [facility] Physician GroupComment on above:Performed By: #### CMP, LISSET, DIFF CBC, ESR, [id number], FE and TIBC ####[place] [id number] USACO2 [Moles/Vol]24.7 mmol/KFjcefn13.0-31.0The [facility] Physician GroupComment on above:Performed By: #### CMP, LISSET, DIFF CBC, ESR, [id number], FE and TIBC ####[address] [address] USACreatinine [Mass/Vol]0.62 mg/dLNormal0.60-1.20The [facility] Physician GroupComment on above:Performed By: #### CMP, LISSET, DIFF CBC, ESR, [id number], FE and TIBC ####[address] [address] USACreatinine Clr Calc Yfxuarbs27.49NormalThe [facility]arnett Health Physician GroupComment on above:Performed By: #### CMP, LISSET, DIFF CBC, ESR, [id number], FE and TIBC ####[place] [address] USAGFR/1.73 sq M.predicted MDRD (S/P/Bld) [Vol rate/Area]mL/min/{1.73_m2}NormalThe [facility]arnett Health Physician GroupComment on above: Performed By: #### CMP, LISSET, DIFF CBC, ESR, [id number], FE and TIBC ####[facility] [place] [address] USAGlobulin (S) [Mass/Vol]3.1 g/dLNormalThe [facility] Health Physician GroupComment on above:Performed By: #### CMP, LISSET, DIFF CBC, ESR, [id number], FE and TIBC ####[facility] [place] [address] USAGlucose [Mass/Vol]90 mg/dL Rrjcer69-292Qrd [facility] Health Physician GroupComment on above:Result Comment: Random Glucose Reference Range is dependent on time and content of last meal. Glucose of more than 200 mg/dL in a nonstressed, ambulatory subject supports the diagnosis of Diabetes Mellitus. ADA recommended reference rangePerformed By: #### CMP, LISSET, DIFF CBC, ESR, [id number], FE and TIBC ####[facility] [place] [address] USAPotassium [Moles/Vol]4.0 mmol/LNormal3.5-5.1The [facility] Health Physician GroupComment on above:Performed By: #### CMP, LISSET, DIFF CBC, ESR, [id number], FE and TIBC ####[facility] [place] 14[address]470 USAProtein [Mass/Vol]6.1 g/dLLow 6.4-8.9The [facility] Health Physician GroupComment on above:Performed By: #### CMP, LISSET, DIFF CBC, ESR, [id number], FE and TIBC ####[facility] [address] [place] 14[address]470 USASodium [Moles/Vol]135 mmol/XUxo238-616 The [facility] Health Physician GroupComment on above:Performed By: #### CMP, LISSET, DIFF CBC, ESR, [id number], FE and TIBC ####[place] [address] USAUrea nitrogen [Mass/Vol]10 mg/dLNormal7-25The [facility] Health Physician GroupComment on above:Performed By: #### CMP, LISSET, DIFF CBC, ESR, [id number], FE and TIBC ####[place] [address] USADiff and CBCon 56-73-9082Tvcasvdoxisg Ql (Bld)Slight NormalThe [facility]arnett Health Physician GroupComment on above:Performed By: #### CMP, LISSET, DIFF CBC, ESR, [id number], FE and TIBC ####[place] [address] USABand form neutrophils/100 WBC (Bld)3 %Normal 0-5The [facility] Health Physician GroupComment on above:Performed By: #### CMP, LISSET, DIFF CBC, ESR, [id number], FE and TIBC ####[place] [address] USABasophils/100 WBC (Bld)2 %Normal0-2The [facility] Health Physician GroupComment on above:Performed By: #### CMP, LISSET, DIFF CBC, ESR, [id number], FE and TIBC ####[place] [address] USAErythrocyte distribution width (RBC) [Ratio]15.1 % Mdaxkr21.9-15.3The [facility] Health Physician GroupComment on above:Performed By: #### CMP, LISSET, DIFF CBC, ESR, [id number], FE and TIBC ####[place] [address] USAHematocrit (Bld) [Volume fraction]23.2 %Low34.0-46.4The [facility] Health Physician GroupComment on above:Performed By: #### CMP, LISSET, DIFF CBC, ESR, [id number], FE and TIBC ####[place] [address] USAHemoglobin (Bld) [Mass/Vol]7.7 g/dLLow 11.8-15.4The [facility] Health Physician GroupComment on above:Performed By: #### CMP, LISSET, DIFF CBC, ESR, [id number], FE and TIBC ####[facility] [address] [place] [address] USALymphocytes/100 WBC (Bld)5 %Xvd91-99Jxd [facility] Health Physician GroupComment on above:Performed By: #### CMP, LISSET, DIFF CBC, ESR, [id number], FE and TIBC ####[facility] [place] [address] [facility]H (RBC) [Entitic mass]30.4 avRycieu37.7-34.3The [facility] Health Physician GroupComment on above:Performed By: #### CMP, LISSET, DIFF CBC, ESR, [id number], FE and TIBC ####[place] [address] [facility]V (RBC) [Entitic vol]91.8 kMSchyaw22-426Sdy [facility] Health Physician GroupComment on above:Performed By: #### CMP, LISSET, DIFF CBC, ESR, [id number], FE and TIBC ####[place] [address] USAMean Corpuscular HGB Conc33.1 g/iTFviagi73.0-35.0The [facility] Health Physician GroupComment on above:Performed By: #### CMP, LISSET, DIFF CBC, ESR, [id number], FE and TIBC ####[place] [address] USAMetamyelocytes1 %High0-0The [facility] Health Physician GroupComment on above:Performed By: #### CMP, LISSET, DIFF CBC, ESR, [id number], FE and TIBC ####[place] [address] USAMicrocytosisSlightNormalThe [facility]ett Health Physician GroupComment on above: Performed By: #### CMP, LISSET, DIFF CBC, ESR, [id number], FE and TIBC ####[place] [address] USAMonocytes/100 WBC (Bld)7 %Normal2-11The [facility] Health Physician GroupComment on above:Performed By: #### CMP, LISSET, DIFF CBC, ESR, [id number], FE and TIBC ####[place] [address] USAMyelocytes1 %High0-0The [facility] Health Physician GroupComment on above:Performed By: #### CMP, LISSET, DIFF CBC, ESR, [id number], FE and TIBC ####[place] [address] USANucleated Red Blood Cell2 /100{WBC}High0-0The [facility] Health Physician GroupComment on above:Performed By: #### CMP, LISSET, DIFF CBC, ESR, [id number], FE and TIBC ####[place] [address] USAOvalocytesSlightNoAtrium Health Huntersville Physician Group Comment on above:Performed By: #### CMP, LISSET, DIFF CBC, ESR, [id number], FE and TIBC ####[address] Platelet EstimateNormalNormalNormHollywood Medical Center Physician GroupComment on above:Performed By: #### CMP, LISSET, DIFF CBC, ESR, [id number], FE and TIBC ####[address] Platelet mean volume (Bld) [Entitic vol]8.5 fLNormal6.3-10.7The [facility] Health Physician GroupComment on above:Performed By: #### CMP, LISSET, DIFF CBC, ESR, [id number], FE and TIBC ####[place] [address] USAPlatelet MorphologyNormalNormalGood Samaritan Medical Center Physician GroupComment on above:Performed By: #### CMP, LISSET, DIFF CBC, ESR, [id number], FE and TIBC ####[place] [address] USAPlatelets (Bld) [#/Vol]316 10*3/nDNcsluy209-064Vyo [facility] Physician GroupComment on above:Performed By: #### CMP, LISSET, DIFF CBC, ESR, [id number], FE and TIBC ####[place] [address] USAPolychromasiaModerateGood Samaritan Medical Center Physician GroupComment on above:Performed By: #### CMP, LISSET, DIFF CBC, ESR, [id number], FE and TIBC ####[place] [address] USAPromyelocytes2 %High0-0The [facility] Health Physician GroupComment on above: Performed By: #### CMP, LISSET, DIFF CBC, ESR, [id number], FE and TIBC ####[place] [address] USARBC (Bld) [#/Vol] 2.53 10*6/uLLow3.60-5.00The [facility] Health Physician GroupComment on above:Performed By: #### CMP, LISSET, DIFF CBC, ESR, [id number], FE and TIBC ####[place] [address] USARouleauxUNC Health Physician GroupComment on above:Performed By: #### CMP, LISSET, DIFF CBC, ESR, [id number], FE and TIBC ####[place] [address] USASchistocytesSAlleghany Health Physician GroupComment on above:Performed By: #### CMP, LISSET, DIFF CBC, ESR, [id number], FE and TIBC ####[place] [address] USASegmented neutrophils/100 WBC (Bld)80 %Qjct14-13Qxu [facility] Comment on above:Performed By: #### CMP, LISSET, DIFF CBC, ESR, [id number], FE and TIBC ####[facility] [place] [address] [facility] [[email or web address]] StomatocytesSlightNormalThe [facility]arnett Health Physician GroupComment on above:Performed By: #### CMP, LISSET, DIFF CBC, ESR, [id number], FE and TIBC ####[address] [address] USAWBC (Bld) [#/Vol]16.9 10*3/uL High3.8-11.6The [facility] Health Physician GroupComment on above:Performed By: #### CMP, LISSTE, DIFF CBC, ESR, [id number], FE and TIBC ####[address] [address] [facility] [[email or web address]]Erythrocyte Sedimentation Rateon 10-88-0430SON (Bld) [Velocity]88 mm/hHigh0-29The [facility] Comment on above:Result Comment: PERFORMED BY:[address] [place], [place] [phone] MEDICAL DIRECTORALTHEA MEADOWS M.D.Performed By: #### CMP, LISSET, DIFF CBC, ESR, [id number], FE and TIBC ####[address] [address] [facility] [[email or web address]]Erythrocyte sedimentation rate by Photometric method Ordered By: Frank Paez on 00-91-8299IAI Photometric method (Bld) [Velocity]Erythrocyte sedimentation rate by Photometric methodHigh0-White HospitalErythropoetin (EPO), Serumon 82-15-6129Tfniheshzwuiw (EPO), Serum47.3 m[iU]/mLHigh2.6-18.5The [facility] Physician [facility]idential CenterComment on above:Result Comment: [employer]el DxI 800 Immunoassay System Values obtained with different assay methods or kits cannot be used interchangeably. Results cannot be interpreted as absolute evidence of the presence or absence of malignant disease. Performed at: [address] [id number] Crack Off Person: Anthony Keane PhD, Phone: [phone] BY:[facility] [place], [place] [phone] MEDICAL DIRECTORALTHEA MEADOWS M.D. Performed By: #### EPO ####[facility] ,Ferritinon 47-75-0946Nuwjpbvc [Mass/Vol]2730.0 ng/vBUvyj09.0-306.8The [facility] Health Physician GroupComment on above:Performed By: #### CMP, LISSET, DIFF CBC, ESR, [id number], FE and TIBC ####[place] [address] [place] [address] [facility] [[email or web address]] Ferritin [Mass/volume] in Serum or PlasmaOrdered By: Frank Paez on 92-69-7122Qaqrzugv [Mass/Vol]Ferritin [Mass/volume] in Serum or PlasmaHigh 11.0-306.8White HospitalFolate [Mass/volume] in Serum or PlasmaOrdered By: Frank Paez on 47-26-0504Klawqo [Mass/Vol]Folate [Mass/volume] in Serum or Plasma>5.9White HospitalComment on above:Folate reference range: >5.9 ng/mlThe WHO technical consultation on folate and vitamin t12lriccuhiykkl has determined that folate concentrations lessthan 4 ng/ml are considered deficient.Iron [Mass/volume] in Serum or PlasmaOrdered By: Frank Paez on 03-47-1092Urpf [Mass/Vol]Iron [Mass/volume] in Serum or PyiovbUrm82-912SskccbpfxWhite HospitalIron and TIBC Profileon 09-24-2024% Iron Rwxmklzfgo71.8 %Vpt57-93GjdAdventhealth Lake Placid Physician [facility] Residential CenterComment on above:Performed By: #### CMP, LISSET, DIFF CBC, ESR, [id number], FE and TIBC ####[place] [address] [place] [address] USAIron [Mass/Vol]30 ug/cTDwz72-744Gqz [facility] Physician GroupComment on above: Performed By: #### CMP, LISSET, DIFF CBC, ESR, [id number], FE and TIBC ####[facility] [address] [place] [address] USATotal Iron Binding Jctrykbh808 ug/wNSfn763-503Fqr [facility] Health Physician GroupComment on above: Performed By: #### CMP, LISSET, DIFF CBC, ESR, [id number], FE and TIBC ####[facility] [address] [place] [address] USATransferrin [Mass/Vol]121 mg/oBVsv776-938Ahv [facility] Health Physician GroupComment on above: Performed By: #### CMP, LISSET, DIFF CBC, ESR, [id number], FE and TIBC ####[facility] [address] [place] [address] USAMicrocytes LM Ql (Bld)Ordered By: Tyree Rdz on 70-22-0200Vbsymdbxsc Ql (Bld)Microcytes [Presence] in Blood by Light microscopyWhite Hospital Promyelocytes/100 WBC Manual cnt (Bld)Ordered By: Tyree Rdz on 09-24-2024 Promyelocytes/100 WBC (Bld)Promyelocytes/100 leukocytes in Blood by Manual count High0-0White HospitalRouleaux [Presence] in Blood by Light microscopyOrdered By: Tyree Rdz on 18-71-1162Nyvbwcxc LM Ql (Bld)Rouleaux [facility]itan Medical Centererum or plasma erythropoietin (EPO) measurement (units/volume)Ordered By: Frank Paez on 09-24-2024 Erythropoietin (EPO) QnSerum or plasma erythropoietin (EPO) measurement (units/volume)High2.6-18.5FThe Bellevue HospitalComment on above: Laura [employer]el DxI 800 Immunoassay SystemValues obtained with different assay methods or kits cannotbe used interchangeably. Results cannot be interpreted asabsolute evidence of the presence or absence of malignantdisease.Performed at: [address] [id number] Director: Anthony Keane PhD, Phone: [phone] or plasma iron binding capacity measurement (mass/volume)Ordered By: Frank Paez on 62-31-7254Khyr binding capacity [Mass/Vol]Iron binding capacity [Mass/volume] in Serum or IibkrzCat000-326PgkxpzaydVeterans Health Administrationerum or plasma iron saturation measurement (mass fraction)Ordered By: Frank Paez on 42-57-2446Zegu saturation [Mass fraction]Iron saturation [Mass Fraction] in Serum or ElfnexQbm92-37EiwzxdllpWhite HospitalTransferrin [Mass/volume] in Serum or PlasmaOrdered By: Frank Paez on 09-24-2024 Transferrin [Mass/Vol]Transferrin [Mass/volume] in Serum or JtuidrQjy265-109 White HospitalVit. B12/Folate Profileon 36-46-1422Amjdljnnj (Vitamin B12) [Mass/Vol]5227 pg/nNRfbr940-009Szg [facility] Comment on above:Performed By: #### CMP, LISSET, DIFF CBC, ESR, [id number], FE and TIBC ####[place] [address] [place] [address] [facility] [[email or web address]] Folate8.7 ng/mLNormal>5.9The [facility] Health Physician GroupComment on above:Result Comment: Folate reference range: >5.9 ng/ml The WHO technical consultation on folate and vitamin b12 deficiencies has determined that folate concentrations less than 4 ng/ml are considered deficient.PERFORMED BY:[address] [place], [place] [phone] MEDICAL DIRECTORALTHEA MEADOWS M.D.Performed By: #### CMP, LISSET, DIFF CBC, ESR, [id number], FE and TIBC ####[address] [address] [facility] [[email or web address]]Vitamin B12 ser/plasOrdered By: Frank Paez on 00-66-4275Eslhzjbyx (Vitamin B12) [Mass/Vol]Vitamin B12 ser/jgfjPege159-427 White HospitalBurr cells [Presence] in Blood by Light microscopyOrdered By: Tyree Rdz on 16-95-4205Dydh cells LM Ql (Bld)Malini cells [Presence] in Blood by Light microscopyWhite HospitalC reactive protein [Mass/volume] in Serum or PlasmaOrdered By: Roshan Reynoso on 52-26-9439WVS [Mass/Vol]C reactive protein [Mass/volume] in Serum or PlasmaHigh 0.0-0.5FThe Bellevue HospitalC-Reactive Proteinon 16-55-7925N- Reactive Sznnuwr56.0 mg/dLHigh0.0-0.5The [facility] Health Physician GroupComment on above:Result Comment: PERFORMED BY:[address] [place], [place] [phone] MEDICAL DIRECTORALTHEA JIMENEZ M.D.Performed By: #### CRP, DIFF CBC, CMP ####[address] [address] USAComprehensive Metabolic Panel on 80-16-6644Pyxzkxk [Mass/Vol]2.7 g/dLLow3.5-5.7The [facility] Comment on above:Performed By: #### CRP, DIFF CBC, CMP ####[address] [address] USAAlbumin/Globulin [Mass ratio] 0.9 {ratio}NormalThe [facility] Physician [facility]idential CenterComment on above:Performed By: #### CRP, DIFF CBC, CMP ####[address] [address] USAALP [Catalytic activity/Vol]146 U/IDsgw64-073Zkr [facility] Physician GroupComment on above:Performed By: #### CRP, DIFF CBC, CMP ####[address] [address] USAALT [Catalytic activity/Vol]116 U/LHigh7-52The [facility] Physician [facility]idential CenterComment on above:Performed By: #### CRP, DIFF CBC, CMP ####[address] [address] USAAnion gap [Moles/Vol]11.2 mmol/LNormal 6.0-15.0The [facility] Physician [facility] CenterComment on above:Performed By: #### CRP, DIFF CBC, CMP ####[address] [address] USAAST [Catalytic activity/Vol]171 U/DLaqa99-21Jow [facility] Physician GroupComment on above:Performed By: #### CRP, DIFF CBC, CMP ####[place] [address] USABilirubin [Mass/Vol] 0.6 mg/dLNormal0.3-1.0The [facility] Health Physician GroupComment on above:Performed By: #### CRP, DIFF CBC, CMP ####[place] [address] USACalcium [Mass/Vol]8.3 mg/dLLow8.6-10.3The [facility] Health Physician GroupComment on above:Performed By: #### CRP, DIFF CBC, CMP ####[place] [address] [place] Chloride [Moles/Vol]103 mmol/GJmfyna08-465Boo [facility] Physician GroupComment on above:Performed By: #### CRP, DIFF CBC, CMP ####[place] [address] USACO2 [Moles/Vol]24.8 mmol/LNormal 21.0-31.0The [facility] Health Physician GroupComment on above:Performed By: #### CRP, DIFF CBC, CMP ####[place] [address] USACreatinine [Mass/Vol]0.68 mg/dLNormal0.60-1.20The [facility] Health Physician GroupComment on above:Performed By: #### CRP, DIFF CBC, CMP ####[place] [address] USACreatinine Clr Calc Ifkqbkmn52.42NormalThe [facility] Health Physician GroupComment on above:Result Comment: PERFORMED BY:[address] [place], [place] [phone] MEDICAL DIRECTORALTHEA MEADOWS M.D. Performed By: #### CRP, DIFF CBC, CMP ####[place] [address] USAGFR/1.73 sq M.predicted MDRD (S/P/Bld) [Vol rate/Area]mL/min/{1.73_m2}NormalThe [facility] Health Physician GroupComment on above: Performed By: #### CRP, DIFF CBC, CMP ####[place] [address] USAGlobulin (S) [Mass/Vol]3.0 g/dLNormalThe [facility] Health Physician GroupComment on above:Performed By: #### CRP, DIFF CBC, CMP ####[place] [address] USAGlucose [Mass/Vol]97 mg/mNEosysq19-239Flr [facility] Physician GroupComment on above: Result Comment: Random Glucose Reference Range is dependent on time and content of last meal. Glucose of more than 200 mg/dL in a nonstressed, ambulatory subject supports the diagnosis of Diabetes Mellitus. ADA recommended reference rangePerformed By: #### CRP, DIFF CBC, CMP ####[place] [address] USAPotassium [Moles/Vol]4.0 mmol/LNormal 3.5-5.1The [facility] Physician [facility]idential CenterComment on above:Performed By: #### CRP, DIFF CBC, CMP ####[place] [address] USAProtein [Mass/Vol]5.7 g/dLLow6.4-8.9The [facility] Comment on above:Performed By: #### CRP, DIFF CBC, CMP ####[place] [address] USASodium [Moles/Vol]135 mmol/L Sgm612-454Xkv [facility] Physician GroupComment on above:Performed By: #### CRP, DIFF CBC, CMP ####[place] [address] USAUrea nitrogen [Mass/Vol]10 mg/dLNormal7-25The [facility] Comment on above:Performed By: #### CRP, DIFF CBC, CMP ####[place] [address] USADiff and CBCon 09-23-2024 Anisocytosis Ql (Bld)[facility] Physician GroupComment on above: Performed By: #### CRP, DIFF CBC, CMP ####[place] [address] USABand form neutrophils/100 WBC (Bld)10 %High0-5 The [facility] Health Physician GroupComment on above:Performed By: #### CRP, DIFF CBC, CMP ####[address] [address] USA Crenated RBCSAlleghany Health Physician GroupComment on above:Performed By: #### CRP, DIFF CBC, CMP ####[place] [address] USAErythrocyte distribution width (RBC) [Ratio]14.6 % Egjlmb95.9-15.3The [facility] Health Physician GroupComment on above:Performed By: #### CRP, DIFF CBC, CMP ####[place] [address] USAGiant Platelet Tally1 /100{WBC}NormalThe [facility] Comment on above:Performed By: #### CRP, DIFF CBC, CMP ####[place] [address] USAHematocrit (Bld) [Volume fraction]22.4 %Low34.0-46.4The [facility] Health Physician GroupComment on above: Performed By: #### CRP, DIFF CBC, CMP ####[place] [address] USAHemoglobin (Bld) [Mass/Vol]7.6 g/dLLow 11.8-15.4The [facility] Health Physician GroupComment on above:Performed By: #### CRP, DIFF CBC, CMP ####[address] [address] USALarge PlateletsSAlleghany Health Physician [facility]idential CenterComment on above:Result Comment: PERFORMED BY:[address] [place], [place] [phone] MEDICAL DIRECTORMONEGRITA JIMENEZ M.D.Performed By: #### CRP, DIFF CBC, CMP ####[address] [address] USALymphocytes/100 WBC (Bld)1 % Kee38-20Fhs [facility] Physician GroupComment on above:Performed By: #### CRP, DIFF CBC, CMP ####[address] [address] [facility] (RBC) [Entitic mass]31.3 ssWrhrfw13.7-34.3The [facility] Health Physician GroupComment on above:Performed By: #### CRP, DIFF CBC, CMP ####[place] [address] [facility] (RBC) [Entitic vol]92.1 dNUysfmy48-776Ftx [facility] Physician GroupComment on above:Performed By: #### CRP, DIFF CBC, CMP ####[place] [address] USAMean Corpuscular HGB Conc34.0 g/hHDhvoqy13.0-35.0The [facility] Health Physician GroupComment on above:Performed By: #### CRP, DIFF CBC, CMP ####[place] [address] [place] Metamyelocytes1 %High0-0The [facility] Health Physician GroupComment on above:Performed By: #### CRP, DIFF CBC, CMP ####[place] [address] USAMicrocytosisSlightNormalThe [facility] Health Physician GroupComment on above:Performed By: #### CRP, DIFF CBC, CMP ####[place] [address] USAMonocytes/100 WBC (Bld)4 %Normal2-11The [facility] Physician GroupComment on above:Performed By: #### CRP, DIFF CBC, CMP ####[place] [address] USAMyelocytes1 %High0-0The [facility] Comment on above:Performed By: #### CRP, DIFF CBC, CMP ####[address] [address] USAOvalocytesSlightNormHollywood Medical Center Physician GroupComment on above:Performed By: #### CRP, DIFF CBC, CMP ####[address] [address] [place] Platelet EstimateNormalNormalNormHollywood Medical Center Physician GroupComment on above:Performed By: #### CRP, DIFF CBC, CMP ####[address] [address] USAPlatelet mean volume (Bld) [Entitic vol]8.7 fLNormal6.3-10.7The [facility] Physician GroupComment on above:Result Comment: PERFORMED BY:[address] [place]LucilaIS[place], [place] [phone] MEDICAL DIRECTORALTHEA MEADOWS M.D. Performed By: #### CRP, DIFF CBC, CMP ####[address] [address] USAPlatelets (Bld) [#/Vol]209 10*3/uLNormal 150-450The [facility] Health Physician GroupComment on above:Performed By: #### CRP, DIFF CBC, CMP ####[address] [address] USAPoikilocytosisSAlleghany Health Physician GroupComment on above:Performed By: #### CRP, DIFF CBC, CMP ####[address] [address] USAPolychromasiaSlightNoAtrium Health Huntersville Physician GroupComment on above:Performed By: #### CRP, DIFF CBC, CMP ####[address] [address] USARBC (Bld) [#/Vol]2.43 10*6/uLLow3.60-5.00The [facility] Physician GroupComment on above:Performed By: #### CRP, DIFF CBC, CMP ####[address] [place] [address] USAReactive Lymphocytes1 %Normal0-12The [facility] Health Physician GroupComment on above:Performed By: #### CRP, DIFF CBC, CMP ####[place] [address] [place] Segmented neutrophils/100 WBC (Bld)83 %Xnng89-10Cge [facility] Comment on above:Performed By: #### CRP, DIFF CBC, CMP ####[place] [address] USAStomatocytesSlightNormalThe [facility] Physician [facility] CenterComment on above:Performed By: #### CRP, DIFF CBC, CMP ####[place] [address] USAWBC (Bld) [#/Vol]19.0 10*3/uLHigh3.8-11.6The [facility] CenterComment on above:Performed By: #### CRP, DIFF CBC, CMP ####[place] [id number] USAGiant platelets/100 leukocytes [Ratio] in Blood by Manual countOrdered By: Tyree Rdz on 89-77-5006Vlavo platelets/100 WBC Manual cnt (Bld) [Ratio]Giant platelets/100 leukocytes [Ratio] in Blood by Manual countWhite HospitalPlatelets Large [Presence] in Blood by Light microscopyOrdered By: Tyree Rdz on 09-23-2024 Platelets Large LM Ql (Bld)Platelets Large [Presence] in Blood by Light microscopyWhite HospitalVariant lymphocytes/100 WBC Manual cnt (Bld)Ordered By: Tyree Rdz on 35-96-7364Fpdxkgn lymphocytes/100 WBC (Bld)Variant lymphocytes/100 leukocytes in Blood by Manual count0White HospitalAppearance of UrineOrdered By: Tyree Rdz on 05-51-5281Gxuubkdvqv (U)Urine appearanceAbnormalCKettering Health DaytonBacteria [Presence] in Urine by AutomatedOrdered By: Tyree Rdz on 76-86-8858Ouzynspp Auto Ql (U)Bacteria [Presence] in Urine by AutomatedNone Seen White HospitalBilirubin Test strip Ql (U)Ordered By: Tyree Rdz on 03-22-4098Jeaifbkip Ql (U)Bilirubin.total [Presence] in Urine by Test stripNegativeWhite HospitalBlood toxic granulation detection by light microscopyOrdered By: Tyree Rdz on 26-95-3653Gszxm granules LM Ql (Bld)Blood toxic granulation detection by light microscopyWhite HospitalCT angio cheston 29-57-5526DJ angio chestGood Samaritan Medical Center Physician GroupColor Auto (U)Ordered By: Tyree Rdz on 45-14-4638Bjkyu (U) Color of Urine by AutoYellowWhite HospitalDiff and CBCon 79-88-7858Asfpcywqlezr Ql (Bld)SlightGood Samaritan Medical Center Physician GroupComment on above:Performed By: #### DIFF CBC ####[place] [id number] USABand form neutrophils/100 WBC (Bld)5 %Normal 0-5The [facility] Physician GroupComment on above:Performed By: #### DIFF CBC ####[place] [id number] [place] Basophils/100 WBC (Bld)1 %Normal0-2The [facility] Health Physician GroupComment on above:Performed By: #### DIFF CBC ####[address] [address] USAErythrocyte distribution width (RBC) [Ratio]14.9 % Knqjdn94.9-15.3The [facility] Health Physician GroupComment on above:Performed By: #### DIFF CBC ####[address] [address] USAHematocrit (Bld) [Volume fraction]22.7 %Low34.0-46.4The [facility] Physician GroupComment on above:Performed By: #### DIFF CBC ####[address] [address] USAHemoglobin (Bld) [Mass/Vol]7.7 g/dLLow 11.8-15.4The [facility] Physician GroupComment on above:Performed By: #### DIFF CBC ####[address] [address] [place] HypochromasiaSlightNoAtrium Health Huntersville Physician GroupComment on above:Performed By: #### DIFF CBC ####[address] [address] USALymphocytes/100 WBC (Bld)3 %Bjo23-83Jas [facility] Physician [facility] Comment on above:Performed By: #### DIFF CBC ####[address] [address] [facility] [[email or web address]]MCH (RBC) [Entitic mass]31.3 pgNormal 24.7-34.3The [facility] Physician GroupComment on above:Performed By: #### DIFF CBC ####[address] [address] [facility] [facility] CITYV (RBC) [Entitic vol]92.0 jGQwyrjv15-508Ztj [facility] Physician GroupComment on above:Performed By: #### DIFF CBC ####[address] [address] USAMean Corpuscular HGB Conc34.0 g/vRToralu35.0-35.0The [facility] Physician [facility] CenterComment on above:Performed By: #### DIFF CBC ####[address] [address] [place] Metamyelocytes2 %High0-0The [facility] Physician GroupComment on above:Performed By: #### DIFF CBC ####[address] [address] USAMonocytes/100 WBC (Bld)7 %Normal2-11The [facility] Physician [facility] Comment on above:Performed By: #### DIFF CBC ####[address] [address] USAMyelocytes3 %High0-0The [facility] Physician GroupComment on above:Performed By: #### DIFF CBC ####[address] [address] USAPlatelet Estimate NormalNormalNormHollywood Medical Center Physician GroupComment on above:Performed By: #### DIFF CBC ####[address] [address] USAPlatelet mean volume (Bld) [Entitic vol]8.7 fLNormal6.3-10.7The [facility] Physician GroupComment on above:Performed By: #### DIFF CBC ####[address] [address] [place] Platelet MorphologyNormalNormalNoAtrium Health Huntersville Physician GroupComment on above:Result Comment: PERFORMED BY:[address] [place], [place] [phone] MEDICAL DIRECTORALTHEA JIMENEZ M.D.Performed By: #### DIFF CBC ####[address] [address] USAPlatelets (Bld) [#/Vol]168 10*3/uLSignificant change nqft054-601Jvf [facility] Physician GroupComment on above:Performed By: #### DIFF CBC ####[address] [address] USAPolychromasiaSAlleghany Health Physician GroupComment on above: Performed By: #### DIFF CBC ####[address] [address] USARBC (Bld) [#/Vol]2.47 10*6/uLLow3.60-5.00The [facility] Physician [facility] CenterComment on above:Performed By: #### DIFF CBC ####[address] [address] [place] Segmented neutrophils/100 WBC (Bld)80 %Ifvg54-60Dgt [facility] Comment on above:Performed By: #### DIFF CBC ####[address] [address] USAToxic GranulationSAlleghany Health Physician GroupComment on above:Performed By: #### DIFF CBC ####[address] [address] USAWBC (Bld) [#/Vol]19.0 10*3/uLHigh3.8-11.6The [facility] Physician GroupComment on above:Performed By: #### DIFF CBC ####[place] [address] USADipstick and Microscopicon 42-01-3526Vmlxclsonm (U) CloudyCritically abnormalClearThe [facility] Health Physician GroupComment on above: Order Comment: Name Collection Type:: Clean-Voided MidstreamPerformed By: #### CUU, ADDONUAPLUS ####[address] [address] USABacteria,UrineNone SeenNormalNone SeenAdventhealth Lake Placid Physician Group Comment on above:Order Comment: Name Collection Type:: Clean-Voided Midstream Performed By: #### CUU, ADDONUAPLUS ####[address] USABilirubin,UrineNegativeNormalNegativeAdventhealth Lake Placid Physician GroupComment on above:Order Comment: Name Collection Type:: Clean- Voided MidstreamPerformed By: #### CUU, ADDONUAPLUS ####[address] USAColor (U)YellowNormalYellowThe [facility] Health Physician GroupComment on above:Order Comment: Name Collection Type:: Clean-Voided MidstreamPerformed By: #### CUU, ADDONUAPLUS ####[address] USAGlucose Ql (U)30 mg/dLHigh NormalThe [facility] Health Physician GroupComment on above:Order Comment: Name Collection Type:: Clean-Voided MidstreamPerformed By: #### CUU, ADDONUAPLUS ####[address] USAHyaline Casts,UrineNoneNormal0-8The [facility] Physician GroupComment on above:Order Comment: Name Collection Type:: Clean-Voided MidstreamPerformed By: #### CUU, ADDONUAPLUS ####[address] USAKetones Ql (U)1+HighNegativeThe [facility] Health Physician GroupComment on above: Order Comment: Name Collection Type:: Clean-Voided MidstreamPerformed By: #### CUU, ADDONUAPLUS ####[address] [address] USALeukocyte esterase Test strip Ql (U)2+HighNegativeThe [facility] Physician GroupComment on above:Order Comment: Name Collection Type:: Clean- Voided MidstreamPerformed By: #### CUU, ADDONUAPLUS ####[address] USAMucus,UrineRareNormalThe [facility] Health Physician GroupComment on above:Order Comment: Name Collection Type:: Clean-Voided MidstreamResult Comment: PERFORMED BY:[place] [address] [place], [place] [phone] MEDICAL DIRECTORALTHEA DE PAZTONY MeeksPerformed By: #### CUU, ADDONUAPLUS ####[address] [place] Nitrite,UrineNegativeNormalNegativeThe [facility] Physician GroupComment on above:Order Comment: Name Collection Type:: Clean-Voided MidstreamPerformed By: #### CUU, ADDONUAPLUS ####[address] USAOccult Blood,UrineTraceHighNegativeThe [facility] Physician GroupComment on above:Order Comment: Name Collection Type:: Clean- Voided MidstreamResult Comment: PERFORMED BY:[place] [address] [place], [place] [phone] MEDICAL DIRECTORALTHEA Robles [facility]PITALTONY MeeksPerformed By: #### CUU, ADDONUAPLUS ####[address] USApH (U) 6.0 [pH]Normal5.0-9.0The [facility] Physician GroupComment on above:Order Comment: Name Collection Type:: Clean-Voided MidstreamPerformed By: #### CUU, ADDONUAPLUS ####[place] [address] [address] [place], EH[address] USAProtein (U) [Mass/Vol]50 mg/dLHighNegativeAdventhealth Lake Placid Physician Group Comment on above:Order Comment: Name Collection Type:: Clean-Voided Midstream Performed By: #### CUU, ADDONUAPLUS ####[address] Streetabimael [place], [place] USARBC,Urine3 [HPF]Normal0-4The [facility] Physician GroupComment on above:Order Comment: Name Collection Type:: Clean-Voided MidstreamPerformed By: #### CUU, ADDONUAPLUS ####[address] [place], [place] USASpecificy Independence,Urine1.020Normal 1.001-1.030The [facility] Physician GroupComment on above:Order Comment: Name Collection Type:: Clean-Voided MidstreamPerformed By: #### CUU, ADDONUAPLUS ####[address] Judy[facility] [place], [place] USASquamous Epithelial Cell,Urine3 [HPF]High0-2The [facility] Physician GroupComment on above:Order Comment: Name Collection Type:: Clean-Voided MidstreamPerformed By: #### CUU, ADDONUAPLUS ####[address] Judyat[facility] health [place], [place] USAUrobilinogen,UrineNormalNormalNormalThe [facility] Physician GroupComment on above:Order Comment: Name Collection Type:: Clean- Voided MidstreamPerformed By: #### CUU, ADDONUAPLUS ####[address] Judyat[facility] [place], [place] USAWBC,UrineInnumerableHigh0-4The [facility] Physician GroupComment on above:Order Comment: Name Collection Type:: Clean-Voided MidstreamPerformed By: #### CUU, ADDONUAPLUS ####[facility] [address] Kimatrium health [place], [place] USAEpithelial cells.squamous [#/area] in Urine sediment by Automated countOrdered By: Tyree Rdz on 26-33-3912Nadehdrzew cells.squamous Auto (Urine sed) [#/Area]Epithelial cells.squamous [#/area] in Urine sediment by Automated countCabell Huntington Hospital02FThe Bellevue HospitalErythrocytes [#/area] in Urine sediment by Automated countOrdered By: Tyree Rdz on 99-97-6222ODQ Auto (Urine sed) [#/Area] Erythrocytes [#/area] in Urine sediment by Automated count0-4FThe Bellevue HospitalGlucose [Mass/volume] in Urine by Test stripOrdered By: Tyree Rdz on 85-56-9504Cxwodwx Test strip (U) [Mass/Vol]Glucose [Mass/volume] in Urine by Test stripCabell Huntington HospitalNoOhioHealth Arthur G.H. Bing, MD, Cancer CenterHemoglobin Test strip Ql (U)Ordered By: Tyree Rdz on 67-40-2112Tpzquvzlnr Ql (U)Hemoglobin [Presence] in Urine by Test stripCabell Huntington HospitalNegSumma Health Hyaline casts [#/area] in Urine sediment by Automated countOrdered By: Tyree Rdz on 46-74-6062Zobefds casts Auto (Urine sed) [#/Area]Hyaline casts [#/area] in Urine sediment by Automated count08White HospitalHypochromia LM Ql (Bld)Ordered By: Tyree Rdz on 09-22-2024 Hypochromia Ql (Bld)Hypochromia [Presence] in Blood by Light microscopyWhite HospitalKetones Test strip Ql (U)Ordered By: Tyree Rdz on 25-06-1276Jlyrewm Ql (U)Ketones [Presence] in Urine by Test stripCabell Huntington HospitalNegMercy Health St. Elizabeth Youngstown HospitalLeukocyte esterase [Presence] in Urine by Test stripOrdered By: Tyree Rdz on 64-58-5083Xmreqkprn esterase Test strip Ql (U)Leukocyte esterase [Presence] in Urine by Test stripCabell Huntington HospitalNegSumma HealthLeukocytes [#/area] in Urine sediment by Automated count Ordered By: Tyree Rdz on 47-10-1444DMZ Auto (Urine sed) [#/Area]Leukocytes [#/area] in Urine sediment by Automated countHigh04FThe Bellevue HospitalMucus [Presence] in Urine by AutomatedOrdered By: Tyree Rdz on 04-90-2531Qagyp Auto Ql (U)Mucus [Presence] in Urine by AutomatedWhite HospitalNitrite Test strip Ql (U)Ordered By: Tyree Rdz on 78-77-0270Lfbdrjk Ql (U)Nitrite [Presence] in Urine by Test stripNegative White HospitalProtein Test strip (U) [Mass/Vol]Ordered By: Tyree Rdz on 21-05-4703Hwmrrqj (U) [Mass/Vol]Protein [Mass/volume] in Urine by Test stripHighNegSycamore Medical Centerpecific gravity Test strip (U) [Rel density]Ordered By: Tyree Rdz on 35-99-7877Fhkusjcv gravity (U) [Rel density]Specific gravity of Urine by Test strip1.001-1.030 White HospitalUrine Cultureon 27-05-0879Nkdwuzsu identified Cx Nom (U)No Growth 2 Days PERFORMED BY: [facility] [address] [place] [address] PATHOLOGIST MOBILE NURSE ALTHEA MEADOWS M.D.NormalThe [facility] Health Physician GroupComment on above: Performed By: #### CUU, ADDONUAPLUS ####[facility] [place], [place] USAUrine cultureOrdered By: Tyree Rdz on 96-58-6006Mcnwxmnf identified Cx Nom (U)Urine cultureWhite HospitalBacteria identified Cx Nom (U)Urine cultureWhite HospitalUrobilinogen Test strip (U) [Mass/Vol]Ordered By: Tyree Rdz on 15-45-8626Kxitejiwsplx (U) [Mass/Vol]Urobilinogen [Mass/volume] in Urine by Test stripNormalWhite HospitalpH Test strip (U)Ordered By: Tyree Rdz on 09-18-6323kS (U)pH of Urine by Test strip5.0-9.0White HospitalBlood Cultureon 82-68-9339Tzywocmi identified Cx Nom (Bld)NO GROWTH 5 DAYS PERFORMED BY: [address] [address] PATHOLOGIST MOBILE NURSE ALTHEA MEADOWS M.D.NormalAdventhealth Lake Placid Physician GroupComment on above: Performed By: #### CUBLD ####[address] [address] USABacteria identified Cx Nom (Bld)NO GROWTH 5 DAYS PERFORMED BY: [facility] [address] [place] [address] PATHOLOGIST MOBILE NURSE ALTHEA MEADOWS M.D.NormalAdventhealth Lake Placid Physician GroupComment on above: Performed By: #### CUBLD ####[address] [address] USAComprehensive Metabolic Panelon 73-09-7075Pnwmvjx [Mass/Vol]2.6 g/dLLow3.5-5.7The [facility] Physician GroupComment on above: Performed By: #### CMP, DIFF CBC ####[address] [address] USAAlbumin/Globulin [Mass ratio]0.9 {ratio}NormalThe [facility] Health Physician GroupComment on above:Performed By: #### CMP, DIFF CBC ####[address] [address] USAALP [Catalytic activity/Vol]144 U/YRvsq81-104Lcx [facility] Physician GroupComment on above:Performed By: #### CMP, DIFF CBC ####[address] [address] USAALT [Catalytic activity/Vol]83 U/LHigh7-52The [facility] Health Physician GroupComment on above:Performed By: #### CMP, DIFF CBC ####[address] [address] USAAnion gap [Moles/Vol]9.8 mmol/LNormal6.0-15.0The [facility] Physician GroupComment on above:Performed By: #### CMP, DIFF CBC ####[place] [address] USAAST [Catalytic activity/Vol]125 U/XQgch35-30 The [facility] Health Physician GroupComment on above:Performed By: #### CMP, DIFF CBC ####[place] [address] [place] Bilirubin [Mass/Vol]0.6 mg/dLNormal0.3-1.0The [facility] Physician [facility] CenterComment on above:Performed By: #### CMP, DIFF CBC ####[place] [address] USACalcium [Mass/Vol]8.0 mg/dLLow8.6-10.3The [facility] Physician [facility] CenterComment on above:Performed By: #### CMP, DIFF CBC ####[place] [address] [place] Chloride [Moles/Vol]104 mmol/JFbbugw37-672Dhk [facility] Physician [facility] CenterComment on above:Performed By: #### CMP, DIFF CBC ####[place] [address] USACO2 [Moles/Vol]26.1 mmol/LNjbayn74.0-31.0The [facility] Physician [facility] CenterComment on above:Performed By: #### CMP, DIFF CBC ####[place] [address] [place] Creatinine [Mass/Vol]0.67 mg/dLNormal0.60-1.20The [facility]ician Group Comment on above:Performed By: #### CMP, DIFF CBC ####[place] [address] USACreatinine Clr Calc Ursgmyeu48.66 NormalThe [facility] Physician [facility] CenterComment on above:Result Comment: PERFORMED BY:[address] [place], [place] [phone] MEDICAL DIRECTORALTHEA MEADOWS M.D.Performed By: #### CMP, DIFF CBC ####[place] [address] [place] [address] USAGFR/1.73 sq M.predicted MDRD (S/P/Bld) [Vol rate/Area]mL/min/{1.73_m2} NormalThe [facility] Health Physician GroupComment on above:Performed By: #### CMP, DIFF CBC ####[address] [address] [place] Globulin (S) [Mass/Vol]2.9 g/dLNormalThNell J. Redfield Memorial Hospital Physician GroupComment on above:Performed By: #### CMP, DIFF CBC ####[address] [address] USAGlucose [Mass/Vol]110 mg/hIRzoh45-721Tlv [facility] Physician GroupComment on above:Result Comment: Random Glucose Reference Range is dependent on time and content of last meal. Glucose of more than 200 mg/dL in a nonstressed, ambulatory subject supports the diagnosis of Diabetes Mellitus. ADA recommended reference rangePerformed By: #### CMP, DIFF CBC ####[address] [address] [place] Potassium [Moles/Vol]3.9 mmol/LNormal3.5-5.1The [facility] Physician GroupComment on above:Performed By: #### CMP, DIFF CBC ####[address] [address] USAProtein [Mass/Vol]5.5 g/dLLow6.4-8.9 The [facility] Health Physician GroupComment on above:Performed By: #### CMP, DIFF CBC ####[address] [address] USASodium [Moles/Vol]136 mmol/ENgdzbq559-682Nhq [facility] Physician GroupComment on above: Performed By: #### CMP, DIFF CBC ####[address] [address] USAUrea nitrogen [Mass/Vol]12 mg/dLNormal7-25The [facility] Physician GroupComment on above:Performed By: #### CMP, DIFF CBC ####[address] [address] USADiff and CBCon 24-31-8015Dxolciqqjubc Ql (Bld)SlightNormalThe [facility] Health Physician GroupComment on above:Performed By: #### CMP, DIFF CBC ####[address] [address] USABand form neutrophils/100 WBC (Bld)3 %Normal0-5The [facility] Physician GroupComment on above:Performed By: #### CMP, DIFF CBC ####[address] [address] USAErythrocyte distribution width (RBC) [Ratio]15.0 %Lmuhjn13.9-15.3The [facility] Physician GroupComment on above:Performed By: #### CMP, DIFF CBC ####[address] [address] [place] Hematocrit (Bld) [Volume fraction]23.0 %Low34.0-46.4The [facility] Physician GroupComment on above:Performed By: #### CMP, DIFF CBC ####[address] [address] USAHemoglobin (Bld) [Mass/Vol]7.8 g/dLLow11.8-15.4The [facility] Physician GroupComment on above:Performed By: #### CMP, DIFF CBC ####[address] [address] USALymphocytes/100 WBC (Bld)3 %Adg58-48Efn [facility] Comment on above:Performed By: #### CMP, DIFF CBC ####[address] [address] USAMCH (RBC) [Entitic mass]31.2 pgNormal 24.7-34.3The [facility] Physician GroupComment on above:Performed By: #### CMP, DIFF CBC ####[address] [address] USAMCV (RBC) [Entitic vol]92.0 xJFcockj74-815Eyu [facility] Comment on above:Performed By: #### CMP, DIFF CBC ####[address] [address] USAMean Corpuscular HGB Conc33.9 g/dL Ymavih93.0-35.0The [facility] Physician GroupComment on above:Performed By: #### CMP, DIFF CBC ####[address] [address] USAMetamyelocytes5 %High0-0The [facility] Physician GroupComment on above: Performed By: #### CMP, DIFF CBC ####[address] [address] USAMonocytes/100 WBC (Bld)4 %Normal2-11The [facility] Physician GroupComment on above:Performed By: #### CMP, DIFF CBC ####[address] [address] USAMyelocytes5 %High0-0 The [facility] Physician GroupComment on above:Performed By: #### CMP, DIFF CBC ####[address] [address] [place] Platelet EstimateDecreasedNormalNormHollywood Medical Center Physician GroupComment on above:Performed By: #### CMP, DIFF CBC ####[address] [address] USAPlatelet mean volume (Bld) [Entitic vol]9.4 fL Normal6.3-10.7The [facility] Physician GroupComment on above:Result Comment: PERFORMED BY:[address] [address] [place], [place] [phone] MEDICAL DIRECTORALTHEA MEADOWS M.D. Performed By: #### CMP, DIFF CBC ####[address] [address] USAPlatelet MorphologyNormalNormalNormHollywood Medical Center Physician GroupComment on above:Result Comment: PERFORMED BY:[address] [address] [place], [place] [phone] MEDICAL DIRECTORMONEGRITA MEADOWS M.D.Performed By: #### CMP, DIFF CBC ####[place] [id number] [place] Platelets (Bld) [#/Vol]97 10*3/uLSignificant change lxik093-189Gjt [facility] Physician GroupComment on above:Performed By: #### CMP, DIFF CBC ####[address] [address] USAPolychromasiaSlight NormalThe [facility] Health Physician GroupComment on above:Performed By: #### CMP, DIFF CBC ####[address] [address] [place] Promyelocytes1 %High0-0The [facility] Physician GroupComment on above:Performed By: #### CMP, DIFF CBC ####[place] [id number] USARBC (Bld) [#/Vol]2.50 10*6/uLLow3.60-5.00The [facility] Physician GroupComment on above:Performed By: #### CMP, DIFF CBC ####[place] [address] [place] Segmented neutrophils/100 WBC (Bld)80 %Iyzp31-55Bor [facility] Comment on above:Performed By: #### CMP, DIFF CBC ####[place] [address] USAWBC (Bld) [#/Vol]17.0 10*3/uLHigh 3.8-11.6The [facility] Physician GroupComment on above:Performed By: #### CMP, DIFF CBC ####[place] [id number] USALaboratory - Microbiology and Antimicrobial susceptibilityOrdered By: Tyree Rdz on 31-40-4391Lldkzjmz identified Cx Nom (Bld)NO GROWTH 5 DAYSWhite HospitalBacteria identified Cx Nom (Bld)NO GROWTH 5 DAYSWhite HospitalBacteria identified Cx Nom (Bld)NO GROWTH 5 DAYS [facility] CenterBacteria identified Cx Nom (Bld)NO GROWTH 5 DAYSWhite HospitalX-ray reportOrdered By: Beck Negrete on 12-93-1191Fggus reportPARMA COMMUNITY [facility] [address] [place] [address] XRay Report Signed Patient: Adelina Mir MR#: [id number] : 1960 Acct:[id number] Age/Sex: 63 / F ADM Date: 5 Loc: Room: [address] [place] [address] Type: ADM IN Attending Dr: Tyree Rdz MD Copies to: Tyree Rdz MD~ Ordering Provider: Tyree Rdz MD Date of Service: 09/21/24 XR/XR chest 2V*: crackles PA AND LATERAL CHEST: CLINICAL HISTORY: Productive cough right lower chest pain worse with deep inspiration, being treated for pneumonia COMPARISON: CT angiogram chest 09/17/2024 FINDINGS: Right-sided Zjxbcx-b-Lkje unchanged. Patchy right lower lobe opacity best seen laterally. Persistent right middle lobe consolidation. There is no no effusionor pneumothorax. XR/XR chest 2V* IMPRESSION: RIGHT LOWER LOBE AND RIGHT MIDDLE LOBE CONSOLIDATION SUGGESTIVE OF PNEUMONIA. FOLLOW-UP TO ENSURE RESOLUTION FOLLOWING MEDICAL TREATMENT COURSE IS RECOMMENDED. Impression dictated by: Beck Negrete M.D.09/21/2024 4:40 PM Dictation Location: [place] [address] Transcribed By: [facility] 09/21/24 [facility] Dictated By: Beck Negrete MD 09/21/24 1637 Signed By: 09/21/[address] [place] [address] Work Phone: XR chest 2V*on 66-78-3406VN chest 2V*NormalThe [facility] Physician GroupComplete Blood Count Auto Diffon 29-05-7494Iihkxqdffez distribution width (RBC) [Ratio]14.7 %Jtnzcp95.9-15.3The [facility] Physician GroupComment on above:Performed By: #### CMP, CBC, DIFF CBC ####[facility] [address] [place] [address] USAHematocrit (Bld) [Volume fraction]22.0 %Low34.0-46.4The [facility] Health Physician GroupComment on above:Performed By: #### CMP, CBC, DIFF CBC ####[place] [address] USAHemoglobin (Bld) [Mass/Vol]7.4 g/dLLow 11.8-15.4The [facility] Health Physician GroupComment on above:Performed By: #### CMP, CBC, DIFF CBC ####[place] [address] USAMCH (RBC) [Entitic mass]30.7 pgDoesjn96.7-34.3The [facility] Health Physician GroupComment on above:Performed By: #### CMP, CBC, DIFF CBC ####[place] [address] USAMCV (RBC) [Entitic vol]91.3 qJAiyhzf80-765Deq [facility] Physician GroupComment on above:Performed By: #### CMP, CBC, DIFF CBC ####[place] [address] USAMean Corpuscular HGB Conc33.6 g/pEHwjrgy12.0-35.0The [facility] Health Physician GroupComment on above:Performed By: #### CMP, CBC, DIFF CBC ####[place] [id number] [place] Platelet mean volume (Bld) [Entitic vol]9.7 fLNormal6.3-10.7The [facility] Health Physician GroupComment on above:Result Comment: PERFORMED BY:[address] [place], [place] [phone] MEDICAL DIRECTORALTHEA MEADOWS M.D.Performed By: #### CMP, CBC, DIFF CBC ####[place] [address] [place] Platelets (Bld) [#/Vol]61 10*3/uLSignificant change thlv415-181Vpi [facility] Physician GroupComment on above:Performed By: #### CMP, CBC, DIFF CBC ####[place] [address] USARBC (Bld) [#/Vol]2.41 10*6/uLLow3.60-5.00The [facility] Health Physician GroupComment on above:Performed By: #### CMP, CBC, DIFF CBC ####[place] [address] USAWBC (Bld) [#/Vol]12.9 10*3/uLHigh 3.8-11.6The [facility] Health Physician GroupComment on above:Performed By: #### CMP, CBC, DIFF CBC ####[place] [address] USAComprehensive Metabolic Panelon [id number] [Mass/Vol]2.5 g/dLLow 3.5-5.7The [facility] Physician GroupComment on above:Performed By: #### CMP, CBC, DIFF CBC ####[place] [address] USAAlbumin/Globulin [Mass ratio]0.9 {ratio}NormalThe [facility] Health Physician GroupComment on above:Performed By: #### CMP, CBC, DIFF CBC ####[place] [address] USAALP [Catalytic activity/Vol]145 U/JQswu65-751Kky [facility] Physician GroupComment on above: Performed By: #### CMP, CBC, DIFF CBC ####[place] [address] USAALT [Catalytic activity/Vol]59 U/LHigh7-52The [facility] Health Physician GroupComment on above:Performed By: #### CMP, CBC, DIFF CBC ####[place] [address] USAAnion gap [Moles/Vol]8.5 mmol/LNormal6.0-15.0The [facility] Health Physician GroupComment on above:Performed By: #### CMP, CBC, DIFF CBC ####[place] [address] USAAST [Catalytic activity/Vol]79 U/LHigh 13-39The [facility] Health Physician GroupComment on above:Performed By: #### CMP, CBC, DIFF CBC ####[address] [address] USABilirubin [Mass/Vol]0.6 mg/dLNormal0.3-1.0The [facility] Comment on above:Performed By: #### CMP, CBC, DIFF CBC ####[place] [id number] USACalcium [Mass/Vol]7.9 mg/dLLow 8.6-10.3The [facility] Physician GroupComment on above:Performed By: #### CMP, CBC, DIFF CBC ####[place] [id number] USAChloride [Moles/Vol]104 mmol/XZbpqqy94-374Epi [facility] Comment on above:Performed By: #### CMP, CBC, DIFF CBC ####[place] [id number] USACO2 [Moles/Vol]26.8 mmol/L Jikjne87.0-31.0The [facility] Physician GroupComment on above:Performed By: #### CMP, CBC, DIFF CBC ####[place] [id number] USACreatinine [Mass/Vol]0.68 mg/dLNormal0.60-1.20The [facility] Physician GroupComment on above:Performed By: #### CMP, CBC, DIFF CBC ####[place] [id number] [place] Creatinine Clr Calc Nqsfxini10.42NormalThNell J. Redfield [facility] Hospital Physician GroupComment on above:Result Comment: PERFORMED BY:[address] [place], [place] [phone] MEDICAL DIRECTORALTHEA JIMENEZ M.D.Performed By: #### CMP, CBC, DIFF CBC ####[address] [address] USAGFR/1.73 sq M.predicted MDRD (S/P/Bld) [Vol rate/Area]mL/min/{1.73_m2}NormalThe [facility] Comment on above:Performed By: #### CMP, CBC, DIFF CBC ####[place] [address] USAGlobulin (S) [Mass/Vol]2.7 g/dLNormalThe [facility] Physician GroupComment on above:Performed By: #### CMP, CBC, DIFF CBC ####[place] [address] USAGlucose [Mass/Vol]108 mg/pBRwjl93-526Ddp [facility] Comment on above:Result Comment: Random Glucose Reference Range is dependent on time and content of last meal. Glucose of more than 200 mg/dL in a nonstressed, ambulatory subject supports the diagnosis of Diabetes Mellitus. ADA recommended reference rangePerformed By: #### CMP, CBC, DIFF CBC ####[place] [address] USAPotassium [Moles/Vol]3.3 mmol/LLow3.5-5.1The [facility] Physician GroupComment on above:Performed By: #### CMP, CBC, DIFF CBC ####[place] [id number] USAProtein [Mass/Vol]5.2 g/dLLow6.4-8.9The [facility] Comment on above:Performed By: #### CMP, CBC, DIFF CBC ####[place] [id number] USASodium [Moles/Vol]136 mmol/L [place]101-482Spd [facility] Physician GroupComment on above:Performed By: #### CMP, CBC, DIFF CBC ####[place] [id number] USAUrea nitrogen [Mass/Vol]14 mg/dLNormal7-25The [facility] Health Physician GroupComment on above:Performed By: #### CMP, CBC, DIFF CBC ####[place] [id number] USADiff and CBCon 35-03-3095Cdrgqeiishsh Ql (Bld)SlightNormHollywood Medical Center Physician GroupComment on above:Performed By: #### CMP, CBC, DIFF CBC ####[place] [address] USABand form neutrophils/100 WBC (Bld)3 % Normal0-5The [facility] Health Physician GroupComment on above:Performed By: #### CMP, CBC, DIFF CBC ####[place] [address] USALymphocytes/100 WBC (Bld)4 %Bvm48-84KmvAdventhealth Lake Placid Physician Group Comment on above:Performed By: #### CMP, CBC, DIFF CBC ####[place] [address] USAMetamyelocytes3 %High0-0The [facility] Physician GroupComment on above:Performed By: #### CMP, CBC, DIFF CBC ####[place] [address] [place] Monocytes/100 WBC (Bld)8 %Normal2-11The [facility] Physician GroupComment on above:Performed By: #### CMP, CBC, DIFF CBC ####[place] [id number] USAMyelocytes1 %High0-0[facility] Physician GroupComment on above:Performed By: #### CMP, CBC, DIFF CBC ####[place] [address] [place] Platelet EstimateDecreasedNormalNormHollywood Medical Center Physician GroupComment on above:Performed By: #### CMP, CBC, DIFF CBC ####[place] [id number] USAPlatelet MorphologyNormalNormalNormal The [facility] Health Physician GroupComment on above:Result Comment: PERFORMED BY:[address] [place], [place] [phone] MEDICAL DIRECTORALTHEA MEADOWS M.D.Performed By: #### CMP, CBC, DIFF CBC ####[place] [place] [address] USAPromyelocytes1 %High0-0The [facility] Physician GroupComment on above:Performed By: #### CMP, CBC, DIFF CBC ####[address] [address] USASegmented neutrophils/100 WBC (Bld)81 %Suye96-94Urg [facility] Physician GroupComment on above:Performed By: #### CMP, CBC, DIFF CBC ####[address] [address] USAComprehensive Metabolic Panelon 78-80-4362Ihfgxrz [Mass/Vol]2.8 g/dLLow 3.5-5.7The [facility] Physician GroupComment on above:Performed By: #### DIFF CBC, CMP ####[address] [address] USAAlbumin/Globulin [Mass ratio]1.0 {ratio}NormalThe [facility] Comment on above:Performed By: #### DIFF CBC, CMP ####[address] [address] USAALP [Catalytic activity/Vol]161 U/L Rzpv27-347Cyu [facility] Physician GroupComment on above:Performed By: #### DIFF CBC, CMP ####[address] [address] USAALT [Catalytic activity/Vol]56 U/LHigh7-52The [facility] Comment on above:Performed By: #### DIFF CBC, CMP ####[address] [address] USAAnion gap [Moles/Vol]10.5 mmol/LNormal 6.0-15.0The [facility] Health Physician GroupComment on above:Performed By: #### DIFF CBC, CMP ####[address] [address] USAAST [Catalytic activity/Vol]69 U/CGrvr03-18Wsk [facility] Comment on above:Performed By: #### DIFF CBC, CMP ####[place] [id number] USABilirubin [Mass/Vol]0.8 mg/dLNormal 0.3-1.0The [facility] Physician GroupComment on above:Performed By: #### DIFF CBC, CMP ####[place] [id number] USACalcium [Mass/Vol]8.3 mg/dLLow8.6-10.3The [facility] Physician GroupComment on above:Performed By: #### DIFF CBC, CMP ####[place] [address] USAChloride [Moles/Vol]106 mmol/WAaodxt97-331Ain [facility] Physician GroupComment on above:Performed By: #### DIFF CBC, CMP ####[place] [address] USACO2 [Moles/Vol]25.0 mmol/UNpcnqf51.0-31.0The [facility] Health Physician GroupComment on above:Performed By: #### DIFF CBC, CMP ####[place] [id number] USACreatinine [Mass/Vol]0.82 mg/dLNormal0.60-1.20 The [facility] Health Physician GroupComment on above:Performed By: #### DIFF CBC, CMP ####[place] [address] [place] Creatinine Clr Calc Grddzzxj13.49NormalThe [facility] Physician GroupComment on above:Result Comment: PERFORMED BY:[address] [place], [place] [phone] MEDICAL DIRECTORALTHEA JIMENEZ M.D.Performed By: #### DIFF CBC, CMP ####[address] [address] USAGFR/1.73 sq M.predicted MDRD (S/P/Bld) [Vol rate/Area]mL/min/{1.73_m2}NormalThe [facility] Physician GroupComment on above:Performed By: #### DIFF CBC, CMP ####[place] [address] USAGlobulin (S) [Mass/Vol]2.9 g/dLNoAtrium Health Huntersville Physician GroupComment on above:Performed By: #### DIFF CBC, CMP ####[place] [address] USAGlucose [Mass/Vol]104 mg/sEScrc00-156Kbz [facility] Physician GroupComment on above: Result Comment: Random Glucose Reference Range is dependent on time and content of last meal. Glucose of more than 200 mg/dL in a nonstressed, ambulatory subject supports the diagnosis of Diabetes Mellitus. ADA recommended reference rangePerformed By: #### DIFF CBC, CMP ####[place] [address] USAPotassium [Moles/Vol]3.5 mmol/LNormal3.5-5.1 The [facility] Health Physician GroupComment on above:Performed By: #### DIFF CBC, CMP ####[place] [address] USAProtein [Mass/Vol]5.7 g/dLLow6.4-8.9The [facility] Health Physician GroupComment on above: Performed By: #### DIFF CBC, CMP ####[place] [address] USASodium [Moles/Vol]138 mmol/FAygmqn491-619Jkp [facility] Physician GroupComment on above:Performed By: #### DIFF CBC, CMP ####[place] [address] USAUrea nitrogen [Mass/Vol]22 mg/dLNormal7-25The [facility] Physician GroupComment on above:Performed By: #### DIFF CBC, CMP ####[place] [id number] USADiff and CBCon 41-15-8230Ogwsvblotsnm Ql (Bld) SlightNormHollywood Medical Center Physician GroupComment on above:Performed By: #### DIFF CBC, CMP ####[place] [address] USABand form neutrophils/100 WBC (Bld)2 %Normal0-5The [facility] Physician GroupComment on above:Performed By: #### DIFF CBC, CMP ####[place] [address] USAErythrocyte distribution width (RBC) [Ratio]14.7 %Rzsrpf36.9-15.3The [facility] Physician GroupComment on above:Performed By: #### DIFF CBC, CMP ####[place] [address] USAGiant Platelet Tally1 /100{WBC}NormalThe [facility] Health Physician GroupComment on above:Performed By: #### DIFF CBC, CMP ####[address] Hematocrit (Bld) [Volume fraction]22.6 %Low34.0-46.4The [facility] Physician GroupComment on above:Performed By: #### DIFF CBC, CMP ####[place] [address] USAHemoglobin (Bld) [Mass/Vol]7.7 g/dLLow11.8-15.4The [facility] Physician GroupComment on above:Performed By: #### DIFF CBC, CMP ####[place] [address] USAHypochromasiaSlightNormalThe [facility] Physician GroupComment on above:Performed By: #### DIFF CBC, CMP ####[place] [address] USALymphocytes/100 WBC (Bld)5 %Qkz41-71Mnm [facility] Physician GroupComment on above:Performed By: #### DIFF CBC, CMP ####[place] [id number] USAMCH (RBC) [Entitic mass]30.9 beSdvrhp59.7-34.3The [facility] Physician GroupComment on above:Performed By: #### DIFF CBC, CMP ####[place] [address] USAMCV (RBC) [Entitic vol]90.8 rTBxvhnv25-044Szd [facility] Physician GroupComment on above:Performed By: #### DIFF CBC, CMP ####[address] [address] USAMean Corpuscular HGB Conc34.0 g/aQZgikje08.0-35.0The [facility] Physician GroupComment on above:Performed By: #### DIFF CBC, CMP ####[address] [address] USAMetamyelocytes5 %High0-0The [facility] Physician GroupComment on above:Performed By: #### DIFF CBC, CMP ####[address] [address] USAMonocytes/100 WBC (Bld)11 %Normal2-11The [facility] Physician GroupComment on above:Performed By: #### DIFF CBC, CMP ####[address] [address] USAMyelocytes3 %High0-0The [facility] Physician GroupComment on above: Performed By: #### DIFF CBC, CMP ####[address] [address] USANucleated Red Blood Cell1 /100{WBC}High0-0The [facility] Physician GroupComment on above:Performed By: #### DIFF CBC, CMP ####[address] [address] USA OvalocytesSlightNoAtrium Health Huntersville Physician GroupComment on above:Performed By: #### DIFF CBC, CMP ####[address] [address] USAPlatelet EstimateDecreasedNormalNoAtrium Health Huntersville Physician GroupComment on above:Performed By: #### DIFF CBC, CMP ####[address] [address] USAPlatelet mean volume (Bld) [Entitic vol]9.3 fLNormal6.3-10.7The [facility] Physician GroupComment on above:Result Comment: PERFORMED BY:[address] [phone] MEDICAL DIRECTORALTHEA JIMENEZ M.D.Performed By: #### DIFF CBC, CMP ####[address] [address] USAPlatelet MorphologyNormalNormalNormal The [facility] Health Physician GroupComment on above:Result Comment: PERFORMED BY:[address] [address] [place], [place] [phone] MEDICAL DIRECTORALTHEA MEADOWS M.D.Performed By: #### DIFF CBC, CMP ####[address] [address] USAPlatelets (Bld) [#/Vol]38 10*3/uLOff scale kqf274-007Wgo [facility] Physician GroupComment on above:Result Comment: Critical value result called at 0653 on 09/19/24Performed By: #### DIFF CBC, CMP ####[address] [address] USAPolychromasiaSAlleghany Health Physician GroupComment on above:Performed By: #### DIFF CBC, CMP ####[address] [address] USARBC (Bld) [#/Vol]2.49 10*6/uLLow3.60-5.00The [facility] Physician GroupComment on above:Performed By: #### DIFF CBC, CMP ####[address] [address] USAReactive Lymphocytes1 %Normal0-12The [facility] Comment on above:Performed By: #### DIFF CBC, CMP ####[address] [address] USASchistocytesSjackson county regional health centerNoAtrium Health Huntersville Physician GroupComment on above:Performed By: #### DIFF CBC, CMP ####[address] [address] USASegmented neutrophils/100 WBC (Bld)73 %Qquu78-20Ncz [facility] Physician GroupComment on above:Performed By: #### DIFF CBC, CMP ####[address] [address] [place] [address] USAToxic GranulationModerateNormalThe [facility] Physician GroupComment on above:Performed By: #### DIFF CBC, CMP ####[address] [address] USAWBC (Bld) [#/Vol]10.8 10*3/uLNormal3.8-11.6The [facility] Physician GroupComment on above:Performed By: #### DIFF CBC, CMP ####[address] [address] USABacteria identification by sterile body fluid cultureOrdered By: Roshan Reynoso on 55-84-7173Riofrmdu identified Sterile body fluid culture Nom (Unsp spec)Bacteria identification by sterile body fluid culture.White HospitalBacteria identification detection in isolate by cultureOrdered By: Roshan Reynoso on 42-09-7229Rlzxazqg Identification Cx Ql (Isol)Bacteria identification detection in isolate by culture.White HospitalBlood Cultureon 55-63-1836Auitauru identified Cx Nom (Bld)NO GROWTH 5 DAYS PERFORMED BY: [facility] [address] [id number] PATHOLOGIST MOBILE NURSE ALTHEA MEADOWS M.D.NormalThe [facility] Physician GroupComment on above: Performed By: #### CUBLD ####[address] [address] USAComprehensive Metabolic Panelon 26-38-1896Xabjxze [Mass/Vol]3.0 g/dLLow3.5-5.7The [facility] Physician GroupComment on above: Performed By: #### DIFF CBC, PT, MG, CMP ####[place] [id number] USAAlbumin/Globulin [Mass ratio]1.0 {ratio}Normal The [facility] Health Physician GroupComment on above:Performed By: #### DIFF CBC, PT, MG, CMP ####[place] [id number] USAALP [Catalytic activity/Vol]116 U/JFhbq89-446Yir [facility] Comment on above:Performed By: #### DIFF CBC, PT, MG, CMP ####[address] [address] USAALT [Catalytic activity/Vol]55 U/LHigh7-52The [facility] Physician GroupComment on above:Performed By: #### DIFF CBC, PT, MG, CMP ####[address] [address] USAAnion gap [Moles/Vol]11.9 mmol/LNormal6.0-15.0The [facility] Physician GroupComment on above:Performed By: #### DIFF CBC, PT, MG, CMP ####[address] [address] USAAST [Catalytic activity/Vol]45 U/MBglb93-04Lwj [facility] Physician GroupComment on above: Performed By: #### DIFF CBC, PT, MG, CMP ####[address] [address] USABilirubin [Mass/Vol]1.4 mg/dLHigh0.3-1.0The [facility] Physician GroupComment on above:Result Comment: Samples from patients who have taken Naproxen have shown spurious elevation in Total Bilirubin levels. A metabolite of Naproxen, O-desmethylnaproxen, has been shown to interfere with the Jensusanaik-Cynthiaf method for measuring Total Bilirubin.Performed By: #### DIFF CBC, PT, MG, CMP ####[address] [address] USACalcium [Mass/Vol]8.3 mg/dLLow8.6-10.3The [facility] Physician GroupComment on above:Performed By: #### DIFF CBC, PT, MG, CMP ####[address] [address] [place] Chloride [Moles/Vol]101 mmol/CXqvxjl27-241Dzg [facility] Physician GroupComment on above:Performed By: #### DIFF CBC, PT, MG, CMP ####[place] [address] USACO2 [Moles/Vol]26.2 mmol/LNormal 21.0-31.0The [facility] Physician GroupComment on above:Performed By: #### DIFF CBC, PT, MG, CMP ####[place] [address] USACreatinine [Mass/Vol]1.02 mg/dLNormal0.60-1.20The [facility] Physician GroupComment on above:Performed By: #### DIFF CBC, PT, MG, CMP ####[place] [address] USACreatinine Clr Calc Rvaquenv07.17NormHollywood Medical Center Physician GroupComment on above:Performed By: #### DIFF CBC, PT, MG, CMP ####[place] [address] USAGFR/1.73 sq M.predicted MDRD (S/P/Bld) [Vol rate/Area]mL/min/{1.73_m2}NormalThe [facility] Physician GroupComment on above: Performed By: #### DIFF CBC, PT, MG, CMP ####[place] [address] USAGlobulin (S) [Mass/Vol]3.0 g/dLNoAtrium Health [facility]tersville Physician GroupComment on above:Performed By: #### DIFF CBC, PT, MG, CMP ####[place] [address] [place] Glucose [Mass/Vol]102 mg/lDWrzn27-596Cxs [facility] Physician GroupComment on above:Result Comment: Random Glucose Reference Range is dependent on time and content of last meal. Glucose of more than 200 mg/dL in a nonstressed, ambulatory subject supports the diagnosis of Diabetes Mellitus. ADA recommended reference rangePerformed By: #### DIFF CBC, PT, MG, CMP ####[place] [address] USAPotassium [Moles/Vol]3.1 mmol/LLow3.5-5.1The [facility] Physician GroupComment on above:Performed By: #### DIFF CBC, PT, MG, CMP ####[place] [address] USAProtein [Mass/Vol]6.0 g/dLLow6.4-8.9The [facility] Physician GroupComment on above:Performed By: #### DIFF CBC, PT, MG, CMP ####[place] [address] USASodium [Moles/Vol]136 mmol/CFoytey916-687Dtg [facility] Physician GroupComment on above: Performed By: #### DIFF CBC, PT, MG, CMP ####[place] [address] USAUrea nitrogen [Mass/Vol]43 mg/dLHigh7-25The [facility] Physician GroupComment on above:Performed By: #### DIFF CBC, PT, MG, CMP ####[place] [address] [place] Diff and CBCon 06-31-8842Anbx form neutrophils/100 WBC (Bld)2 %Normal0-5The [facility] Physician GroupComment on above:Performed By: #### DIFF CBC, PT, MG, CMP ####[place] [address] [place] Basophils/100 WBC (Bld)0 %Normal0-2The [facility] Physician GroupComment on above:Performed By: #### DIFF CBC, PT, MG, CMP ####[place] [id number] USADohle BodiesSlightNormCleveland Clinice [facility] Physician GroupComment on above:Performed By: #### DIFF CBC, PT, MG, CMP ####[place] [id number] [place] Eosinophils/100 WBC (Bld)0 %Low1-3The [facility] Physician GroupComment on above: Performed By: #### DIFF CBC, PT, MG, CMP ####[place] [address] USAErythrocyte distribution width (RBC) [Ratio] 14.2 %Petpvl18.9-15.3The [facility] Physician GroupComment on above:Performed By: #### DIFF CBC, PT, MG, CMP ####[place] [address] USAHematocrit (Bld) [Volume fraction]22.0 %Low34.0-46.4 The [facility] Health Physician GroupComment on above:Performed By: #### DIFF CBC, PT, MG, CMP ####[place] [address] USAHemoglobin (Bld) [Mass/Vol]7.7 g/dLLow11.8-15.4The [facility] Comment on above:Performed By: #### DIFF CBC, PT, MG, CMP ####[place] [address] USALymphocytes/100 WBC (Bld)7 % Bni66-04Kpm [facility] Physician GroupComment on above:Performed By: #### DIFF CBC, PT, MG, CMP ####[address] Nichols StreetMCH (RBC) [Entitic mass]31.5 gpMhymae80.7-34.3The [facility] Physician GroupComment on above:Performed By: #### DIFF CBC, PT, MG, CMP ####[place] [address] USAMCV (RBC) [Entitic vol]90.5 lKZkloyv66-796Yzi [facility] Physician GroupComment on above:Performed By: #### DIFF CBC, PT, MG, CMP ####[place] [address] USAMean Corpuscular HGB Conc34.8 g/iBDvlkjg39.0-35.0The [facility] Physician GroupComment on above:Performed By: #### DIFF CBC, PT, MG, CMP ####[place] [address] [place] Monocytes/100 WBC (Bld)23 %High2-11The [facility] Physician GroupComment on above:Performed By: #### DIFF CBC, PT, MG, CMP ####[address] [address] USAMyelocytes4 %High0-0The [facility] Physician GroupComment on above:Performed By: #### DIFF CBC, PT, MG, CMP ####[address] [address] [place] Platelet EstimateDecreasedNormalNormHollywood Medical Center Physician [facility] CenterComment on above:Performed By: #### DIFF CBC, PT, MG, CMP ####[address] [address] USAPlatelet mean volume (Bld) [Entitic vol]9.0 fLNormal6.3-10.7The [facility] Physician GroupComment on above:Result Comment: PERFORMED BY:[address] IZAGUIRRELucilaIS[place], [place] [phone] MEDICAL DIRECTORMONEGRITA MEADOWS M.D. Performed By: #### DIFF CBC, PT, MG, CMP ####[place] [id number] USAPlatelet MorphologyNormalNormalNoAtrium Health Huntersville Physician GroupComment on above:Result Comment: PERFORMED BY:[address]AB[address] IZAGUIRRELucilaMITCHELL, [place] [phone] MEDICAL DIRECTORALTHEA MEADOWS M.D.Performed By: #### DIFF CBC, PT, MG, CMP ####[address] [address] [place] Platelets (Bld) [#/Vol]25 10*3/uLOff scale ejb957-630Ppa [facility] Physician GroupComment on above:Performed By: #### DIFF CBC, PT, MG, CMP ####[address] [address] USAPromyelocytes2 %High 0-0The [facility] Physician GroupComment on above:Performed By: #### DIFF CBC, PT, MG, CMP ####[place] [id number] USARBC (Bld) [#/Vol]2.43 10*6/uLLow3.60-5.00The [facility] Comment on above:Performed By: #### DIFF CBC, PT, MG, CMP ####[place] [place] [address] USARBC morphology finding Nom (Bld)NormalNormalNormHollywood Medical Center Physician [facility] CenterComment on above:Performed By: #### DIFF CBC, PT, MG, CMP ####[place] [id number] USASegmented neutrophils/100 WBC (Bld)62 %Npumhl28-33 The [facility] Physician GroupComment on above:Performed By: #### DIFF CBC, PT, MG, CMP ####[address] [address] [place] [address] USAToxic GranulationModerateNormCleveland Clinice [facility] Physician [facility] CenterComment on above: Performed By: #### DIFF CBC, PT, MG, CMP ####[place] [id number] USAWBC (Bld) [#/Vol]6.5 10*3/uLNormal3.8-11.6The [facility] Physician [facility] CenterComment on above:Performed By: #### DIFF CBC, PT, MG, CMP ####[address] [address] [place] Dohle body [Presence] in Blood by Light microscopyOrdered By: Joe Garcia on 41-53-5803Xrpxm body LM Ql (Bld)Dohle bodies detectionWhite HospitalEosinophils/100 WBC Manual cnt (Bld)Ordered By: Joe Garcia on 90-66-6143Dbwifeidgsb/100 WBC (Bld)Eosinophils/100 leukocytes in Blood by Manual countLow1-3FThe Bellevue HospitalINR in Platelet poor plasma by Coagulation assayOrdered By: Joe Garcia on 45-40-5679PZU Coag (PPP) [Relative time]INR in Platelet poor plasma by Coagulation assayWhite HospitalComment on above:INR Therapeutic Range A) Pre- and [...] and Antimicrobial susceptibilityOrdered By: Roshan Reynoso on 31-83-2148Oiwltfum identified Cx Nom (Bld)NO GROWTH 5 DAYSWhite Hospital Magnesiumon 87-30-1763Vgoecysfy [Mass/Vol]2.2 mg/dLNormal1.9-2.7The [facility] Physician GroupComment on above:Result Comment: PERFORMED BY:[facility] [place], [place] [phone] MEDICAL DIRECTORALTHEA MEADOWS M.D.Performed By: #### DIFF CBC, PT, MG, CMP ####[facility] [address] [place] [id number] [facility] [[email or web address] Magnesium [Mass/volume] in Serum or PlasmaOrdered By: Joe Garcia on 25-08-6338Scnbmtwiq [Mass/Vol]Magnesium [Mass/volume] in Serum or Plasma1.9-2.7 White HospitalNo Panel InformationOrdered By: Roshan Reynoso on 24-11-9671Btffk pneumoniae Special InfoComment.White HospitalComment on above:[employer] standards require aculture to be performed on CSF specimens submitted forbacterial antigen testing. (CAP JACKIE.[id number]) Urine specimenswill not be cultured.Performed at: [facility] [id number] Director: Fernie Calzada MD, Phone: [phone] Time INRon 30-71-7942LIM Coag (PPP) [Relative time]1.2 {INR}NormalThe [facility]arnett Health Physician GroupComment on above: Result Comment: INR [...] with mechanical heart valves: 3 - 4.5PERFORMED BY:[facility] [place], [place] [phone] MEDICAL DIRECTORALTHEA JIMENEZ M.D.Performed By: #### DIFF CBC, PT, MG, CMP ####[facility] [address] [place] [address] USAPT Coag (PPP) [Time]14.0 sHigh 9.0-12.9The [facility]arnett Health Physician GroupComment on above:Result Comment: A hematocrit value greater than 55% may lead to inaccurate results in coagulation testing. Patients having hematocrit values >55% require a special collection tube for coagulation studies. Please contact the laboratory at [phone] for redraw instructions.Performed By: #### DIFF CBC, PT, MG, CMP ####[facility] [address] [place] [address] USAProthrombin time (PT) Ordered By: Joe Garcia on 32-66-9986RK Coag (PPP) [Time]Prothrombin time (PT)High9.0-12.9White HospitalComment on above:A hematocrit value greater than 55% may lead to inaccurate results in coagulation testing. Patientshaving hematocrit values >55% require a special collection tube for coagulation studies. Please contact the laboratory at [phone] for redraw instructions.Specimen source [Identifier] of Unspecified specimenOrdered By: Roshan Reynoso on 06-05-5317Gmdexrne source Nom (Unsp spec)Specimen source identified.[facility]eterans Health Administrationtrep Pneumoniae Ag, Uron 09-18-2024 Body Fluid CultureNot indicated.Normal.The [facility]arnett Health Physician GroupComment on above:Order Comment: Results called at 1445 on 09/23/24 SOURCE OF SPECIMEN: URINE CLEAN VOIDEDPerformed By: #### UR STP AG ####[facility] , Organism IDNot indicated.Normal.The [facility] Health Physician GroupComment on above: Order Comment: Results called at 1445 on 09/23/24 SOURCE OF SPECIMEN: URINE CLEAN VOIDEDPerformed By: #### UR STP AG ####[facility] ,Please Note: CommentNormal.The [facility] Health Physician GroupComment on above:Order Comment: Results called at 1445 on 09/23/24 SOURCE OF SPECIMEN: URINE CLEAN VOIDEDResult Comment: [employer] standards require a culture to be performed on CSFspecimens submitted for bacterial antigen testing. (CAP JACKIE.[id number]) Urine specimens will not be cultured. Performed at: - [facility] [address] [place], [place] [id number] Crack Off Person: Fernie Calzada MD, Phone: [phone] BY:[facility] [place], [place] [phone] MEDICAL DIRECTORALTHEA MEADOWS M.D.Performed By: #### UR STP AG ####[facility] ,Specimen source Nom (Unsp spec)UrineNormal.The [facility] Health Physician GroupComment on above:Order Comment: Results called at 1445 on 09/23/24 SOURCE OF SPECIMEN: URINE CLEAN VOIDEDPerformed By: #### UR STP AG ####[facility] , Streptococcus Pneumoniae AgPositiveAbnormalNegativeThe [facility] Group Comment on above:Order Comment: Results called at 1445 on 09/23/24 SOURCE OF SPECIMEN: URINE CLEAN VOIDEDResult Comment: REPORTED POSITIVE RESULT TO DARWIN Mine[place] AT 2:39PM ON 09/23/2024. FAXED REPORT TO [phone]. CS --- 09/23/24 1507 --- Strep Pneumo Ag previously reported as: Positive APerformed By: #### UR STP AG ####[facility] ,Streptococcus pneumoniae antigen detectionOrdered By: Roshan Reynoso on 09-18-2024S. pneumoniae Ag Ql (Unsp spec)Streptococcus pneumoniae antigen detectionAbnormalNegativeWhite Hospital Comment on above:REPORTED POSITIVE RESULT TO DARWIN Mine[place] AT 2:39PM ON09/23/2024. FAXED REPORT TO [phone]. --- 09/23/24 1507 ---Strep Pneumo Ag previously reported as: Positive AABO/Rh Retypeon 98-55-6168NHX/RH Recheck ResultPositive NormalThe [facility] Physician [facility]idential CenterComment on above:Result Comment: PERFORMED BY:[address] [place], [place] [phone] MEDICAL DIRECTORALTHEA MEADOWS M.D.Anisocytosis LM Ql (Bld)Ordered By: Mode Ellsworth on 14-14-7695Orifwpvrxfik Ql (Bld)Anisocytosis [Presence] in Blood by Light microscopyWhite Hospital Appearance of UrineOrdered By: Mode Ellsworth on 48-18-0965Tjwibrptzo (U)Urine appearanceAbnormalCKettering Health DaytonB-Type Natriuretic Peptideon 17-68-9622Wgjirarhvbp peptide B (Bld) [Mass/Vol]261.0 pg/mLHigh5-100 The [facility] Health Physician GroupComment on above:Result Comment: PERFORMED BY:[address] [place] [phone] MEDICAL ANGELA MEADOWS M.D.Performed By: #### BNP, CUBLD, DIFF CBC, LACTIC, PT, CK, BMP, HS TROP ####[address] [place] [address] USABacteria [Presence] in Urine by AutomatedOrdered By: Mode Ellsworth on 81-49-8170Mzwrqgjl Auto Ql (U)Bacteria [Presence] in Urine by AutomatedHighNone [facility] Basic Metabolic Panelon 97-29-0240Aojij gap [Moles/Vol]15.6 mmol/LHigh6.0-15.0 The [facility]ty Hospital - ErieComment on above:Performed By: #### BNP, CUBLD, DIFF CBC, LACTIC, PT, CK, BMP, HS TROP ####[address] [address] USACalcium [Mass/Vol]8.8 mg/dLNormal8.6-10.3The [facility] Health Physician GroupComment on above:Performed By: #### BNP, CUBLD, DIFF CBC, LACTIC, PT, CK, BMP, HS TROP ####[place] [address] USAChloride [Moles/Vol]94 mmol/EVma10-746Izi [facility] Health Physician GroupComment on above:Performed By: #### BNP, CUBLD, DIFF CBC, LACTIC, PT, CK, BMP, HS TROP ####[place] [address] USACO2 [Moles/Vol]26.4 mmol/YStylxs66.0-31.0The [facility] Health Physician GroupComment on above:Performed By: #### BNP, CUBLD, DIFF CBC, LACTIC, PT, CK, BMP, HS TROP ####[place] [address] USACreatinine [Mass/Vol]1.49 mg/dLHigh0.60-1.20The [facility] Health Physician GroupComment on above:Performed By: #### BNP, CUBLD, DIFF CBC, LACTIC, PT, CK, BMP, HS TROP ####[address] USACreatinine Clr Calc Xhypgbyg81.84NoAtrium Health Huntersville Physician [facility]idential CenterComment on above:Result Comment: PERFORMED BY:[address] [place], [place] [phone] MEDICAL DIRECTORALTHEA MEADOWS M.D.Performed By: #### BNP, CUBLD, DIFF CBC, LACTIC, PT, CK, BMP, HS TROP ####[address] USAEstimated GFR39.473 mL/MinNoAtrium Health Huntersville Physician [facility]idential CenterComment on above:Performed By: #### BNP, CUBLD, DIFF CBC, LACTIC, PT, CK, BMP, HS TROP ####[place] [address] USAGlucose [Mass/Vol]172 mg/sYUqyk54-711Cjw [facility] Health Physician GroupComment on above:Result Comment: Random Glucose Reference Range is dependent on time and content of last meal. Glucose of more than 200 mg/dL in a nonstressed, ambulatory subject supports the diagnosis of Diabetes Mellitus. ADA recommended reference rangePerformed By: #### BNP, CUBLD, DIFF CBC, LACTIC, PT, CK, BMP, HS TROP ####[place] [address] USAPotassium [Moles/Vol]3.0 mmol/LLow3.5-5.1The [facility] Health Physician GroupComment on above:Performed By: #### BNP, CUBLD, DIFF CBC, LACTIC, PT, CK, BMP, HS TROP ####[address] [place] [address] USASodium [Moles/Vol]133 mmol/XTvr329-029Uxy [facility] Health Physician GroupComment on above:Performed By: #### BNP, CUBLD, DIFF CBC, LACTIC, PT, CK, BMP, HS TROP ####[address] [place] [id number] USAUrea nitrogen [Mass/Vol]60 mg/dLHigh7-25The [facility] Health Physician GroupComment on above:Performed By: #### BNP, CUBLD, DIFF CBC, LACTIC, PT, CK, BMP, HS TROP ####[place] [address] USABasophils Auto (Bld) [#/Vol]Ordered By: Mode Ellsworth on 99-13-2730Vcggwizsc (Bld) [#/Vol]Automated basophil count0.0-0.2FThe Bellevue HospitalBasophils/100 WBC Auto (Bld)Ordered By: Mode Ellsworth on 77-00-7089Ytgggxusv/100 WBC (Bld)Automated basophil %.White HospitalBasophils/100 WBC Manual cnt (Bld)Ordered By: Mode Ellsworth on 09-17-2024 Basophils/100 WBC (Bld)Basophils/100 leukocytes in Blood by Manual count0-2 White HospitalBilirubin Test strip Ql (U)Ordered By: Mode Ellsworth on 91-14-6195Hjdwzgmid Ql (U)Bilirubin.total [Presence] in Urine by Test stripNegativeWhite HospitalBioFire Not Detectedon 09-17-2024 BioFire Not DetectedNot detectedNormalNot DetecteThe [facility] Physician Group Comment on above:Result Comment: This is a duplicate RP2.1 COVID (PCR) result to be used for statistical tracking purpose only.PERFORMED BY:[address]LucilaMIT[address], [place] [phone] MEDICAL DIRECTORALTHEA MEADOWS M.D.Performed By: #### BIOFIRECOVNOTDE, RESP PANEL UPP. ####[address] [address] USABlood Cultureon 06-13-7477Yqsyxzup identified Cx Nom (Bld)NormalThe [facility] Physician [facility] CenterComment on above:Performed By: #### BNP, CUBLD, DIFF CBC, LACTIC, PT, CK, BMP, HS TROP ####[address] [address] USABacteria identified Cx Nom (Bld)NormalBrentwood Behavioral Healthcare Of MississippiComment on above:Performed By: #### BNP, CUBLD, DIFF CBC, LACTIC, PT, CK, BMP, HS TROP ####[address] [address] USACOVID-19 Detected/Not DetectedOrdered By: Joe Garcia on 59-37-6561ZGVT-CoV-2 (COVID-19) RNA LUDIN+non-probe Ql (Nph)Not detectedNot DetectProMedica Toledo HospitalComment on above:This is a duplicate RP2.1 COVID (PCR) result to be used for statistical tracking purpose only.CT angio chest PE protocolon 63-04-0901PD angio chest PE protocolNormHollywood Medical Center Physician GroupCalcium [Mass/volume] in Serum or PlasmaOrdered By: Mode Ellsworth on 96-68-1746Elcqvbp [Mass/Vol]Calcium [Mass/volume] in Serum or Plasma8.6-10.3FThe Bellevue HospitalCarbon dioxide, total [Moles/volume] in Serum or PlasmaOrdered By: Mode Ellsworth on 49-00-6877PH6 [Moles/Vol]Carbon dioxide, total [Moles/volume] in Serum or Mqazyl07.0-31.0 White HospitalChloride [Moles/volume] in Serum or Plasma Ordered By: Mode Ellsworth on 83-19-8178Opkqbdwk [Moles/Vol]Chloride [Moles/volume] in Serum or JhctnuHuz31-785WfmmukbvrWhite HospitalColor Auto (U)Ordered By: Mode Ellsworth on 04-82-1054Hhrtm (U)Color of Urine by Auto YellowWhite HospitalCreatine Kinaseon 38-13-2646VO [Catalytic activity/Vol]101 U/FWxzcvs69-479Xlx [facility] Physician GroupComment on above: Performed By: #### BNP, CUBLD, DIFF CBC, LACTIC, PT, CK, BMP, HS TROP ####[address] Creatine kinase [Enzymatic activity/volume] in Serum or PlasmaOrdered By: Mode Ellsworth on 14-45-0738OX [Catalytic activity/Vol]Creatine kinase [Enzymatic activity/volume] in Serum or Bsajpf12-872FpvcmbjazWhite Hospital Creatinine [Mass/volume] in Serum or PlasmaOrdered By: Mode Ellsworth on 25-20-1039Tdhaazijrw [Mass/Vol]Creatinine [Mass/volume] in Serum or PlasmaHigh 0.60-1.20White HospitalDiff and CBCon 89-54-3089Hcnhlyxvutje Ql (Bld)SlightNormalThe [facility]arnett Health Physician GroupComment on above:Performed By: #### BNP, CUBLD, DIFF CBC, LACTIC, PT, CK, BMP, HS TROP ####[address] [place] [address] USABasophils (Bld) [#/Vol]0.0 10*3/uLNormal0.0-0.2[facility] Physician [facility]idential CenterComment on above:Performed By: #### BNP, CUBLD, DIFF CBC, LACTIC, PT, CK, BMP, HS TROP ####[place] [address] USABasophils/100 WBC (Bld)0.0 % Normal.The [facility] Health Physician GroupComment on above:Performed By: #### BNP, CUBLD, DIFF CBC, LACTIC, PT, CK, BMP, HS TROP ####[place] [address] USABasophils/100 WBC (Bld)0 %Normal0-2The [facility] Health Physician GroupComment on above:Performed By: #### BNP, CUBLD, DIFF CBC, LACTIC, PT, CK, BMP, HS TROP ####[place] [address] USAEosinophils (Bld) [#/Vol]0.0 10*3/uLNormal0.0-0.45 The [facility] Health Physician GroupComment on above:Performed By: #### BNP, CUBLD, DIFF CBC, LACTIC, PT, CK, BMP, HS TROP ####[place] [address] USAEosinophils/100 WBC (Bld)0.1 %Normal.The [facility] Health Physician GroupComment on above:Performed By: #### BNP, CUBLD, DIFF CBC, LACTIC, PT, CK, BMP, HS TROP ####[place] [address] USAEosinophils/100 WBC (Bld)2 %Normal1-3The [facility] Health Physician GroupComment on above:Performed By: #### BNP, CUBLD, DIFF CBC, LACTIC, PT, CK, BMP, HS TROP ####[place] [address] USAErythrocyte distribution width (RBC) [Ratio]14.9 % Kubdtb92.9-15.3The [facility] Health Physician GroupComment on above:Performed By: #### BNP, CUBLD, DIFF CBC, LACTIC, PT, CK, BMP, HS TROP ####[place] [address] USAHematocrit (Bld) [Volume fraction]16.0 %Off scale low34.0-46.4The [facility] Health Physician GroupComment on above:Result Comment: Critical value result called at 1330 on 09/17/24Performed By: #### BNP, CUBLD, DIFF CBC, LACTIC, PT, CK, BMP, HS TROP ####[place] [address] USAHemoglobin (Bld) [Mass/Vol]5.6 g/dLLow11.8-15.4The [facility] Health Physician GroupComment on above: Performed By: #### BNP, CUBLD, DIFF CBC, LACTIC, PT, CK, BMP, HS TROP ####[place] [address] [place] HypochromasiaModerateNormalThe [facility]/Harnett Health Physician GroupComment on above: Performed By: #### BNP, CUBLD, DIFF CBC, LACTIC, PT, CK, BMP, HS TROP ####[address] Lymphocytes (Bld) [#/Vol]0.2 10*3/uLLow1.00-4.8The [facility] Comment on above:Performed By: #### BNP, CUBLD, DIFF CBC, LACTIC, PT, CK, BMP, HS TROP ####[place] [address] USALymphocytes/100 WBC (Bld)3.2 %Normal.The [facility] Health Physician GroupComment on above:Performed By: #### BNP, CUBLD, DIFF CBC, LACTIC, PT, CK, BMP, HS TROP ####[place] [address] [place] Lymphocytes/100 WBC (Bld)2 %Bqc46-25Kgh [facility] Health Physician GroupComment on above:Performed By: #### BNP, CUBLD, DIFF CBC, LACTIC, PT, CK, BMP, HS TROP ####[address] Nichols StreetMCH (RBC) [Entitic mass]32.7 isYibxox49.7-34.3The [facility] Health Physician GroupComment on above:Performed By: #### BNP, CUBLD, DIFF CBC, LACTIC, PT, CK, BMP, HS TROP ####[place] StreetMCV (RBC) [Entitic vol]93.2 jVGrkion45-689Ecs [facility] Health Physician GroupComment on above:Performed By: #### BNP, CUBLD, DIFF CBC, LACTIC, PT, CK, BMP, HS TROP ####[place] [address] USAMean Corpuscular HGB Conc35.1 g/aRYziw00.0-35.0The [facility] Health Physician GroupComment on above:Performed By: #### BNP, CUBLD, DIFF CBC, LACTIC, PT, CK, BMP, HS TROP ####[place] [address] [place] MicrocytosisSlightNormalThe [facility]arnett Health Physician GroupComment on above:Performed By: #### BNP, CUBLD, DIFF CBC, LACTIC, PT, CK, BMP, HS TROP ####[place] [address] USAMonocytes (Bld) [#/Vol]1.1 10*3/uLHigh0.0-0.8The [facility] Health Physician GroupComment on above: Performed By: #### BNP, CUBLD, DIFF CBC, LACTIC, PT, CK, BMP, HS TROP ####[address] Monocytes/100 WBC (Bld)29.44 %High0.00-20.00The [facility] Health Physician GroupComment on above:Result Comment: For adults in ED, MDW > 20.0 may be associated with a higher risk of sepsis during the first 12 hrs of hospital admission The predictive value of MDW for identifying sepsis in patients with hematological abnormalities has not been establishedPerformed By: #### BNP, CUBLD, DIFF CBC, LACTIC, PT, CK, BMP, HS TROP ####[place] [address] USAMonocytes/100 WBC (Bld)23.5 %Normal.The [facility] Health Physician GroupComment on above:Performed By: #### BNP, CUBLD, DIFF CBC, LACTIC, PT, CK, BMP, HS TROP ####[place] [address] USAMonocytes/100 WBC (Bld)23 %High2-11The [facility] Health Physician GroupComment on above:Performed By: #### BNP, CUBLD, DIFF CBC, LACTIC, PT, CK, BMP, HS TROP ####[place] [address] USANeutrophils (Bld) [#/Vol]3.5 10*3/uLNormal1.8-7.7The [facility] Physician GroupComment on above:Performed By: #### BNP, CUBLD, DIFF CBC, LACTIC, PT, CK, BMP, HS TROP ####[place] [address] USANeutrophils/100 WBC (Bld)73.2 %Normal.The [facility] Health Physician GroupComment on above:Performed By: #### BNP, CUBLD, DIFF CBC, LACTIC, PT, CK, BMP, HS TROP ####[place] [address] USANRBC%0.2 /100{WBC}Normal0-0.5The [facility] Health Physician GroupComment on above:Performed By: #### BNP, CUBLD, DIFF CBC, LACTIC, PT, CK, BMP, HS TROP ####[place] [address] USAOvalocytesSlightNormHollywood Medical Center Physician GroupComment on above: Performed By: #### BNP, CUBLD, DIFF CBC, LACTIC, PT, CK, BMP, HS TROP ####[address] [address] [place] Platelet EstimateDecreasedNormalNoAtrium Health Huntersville Physician GroupComment on above:Performed By: #### BNP, CUBLD, DIFF CBC, LACTIC, PT, CK, BMP, HS TROP ####[place] [address] [place] Platelet mean volume (Bld) [Entitic vol]10.3 fLNormal6.3-10.7The [facility] Health Physician GroupComment on above:Result Comment: PERFORMED BY:[address] IZAGUIRRELucilaISIDRO, [place] [phone] MEDICAL DIRECTORALTHEA MEADOWS M.D.Performed By: #### BNP, CUBLD, DIFF CBC, LACTIC, PT, CK, BMP, HS TROP ####[address] [address] USAPlatelet MorphologyNormalNormalNoAtrium Health Huntersville Physician GroupComment on above:Result Comment: PERFORMED BY:[address]ABIM[address] [place]GAINDUSTR[place], [place] [phone] MEDICAL DIRECTORALTHEA MEADOWS M.D.Performed By: #### BNP, CUBLD, DIFF CBC, LACTIC, PT, CK, BMP, HS TROP ####[address] [address] USAPlatelets (Bld) [#/Vol]24 10*3/uLOff scale low 150-450The [facility] Health Physician GroupComment on above:Result Comment: Critical value result called at 1330 on 09/17/24Performed By: #### BNP, CUBLD, DIFF CBC, LACTIC, PT, CK, BMP, HS TROP ####[address] [address] USAPoikilocytosisSAlleghany Health Physician GroupComment on above:Performed By: #### BNP, CUBLD, DIFF CBC, LACTIC, PT, CK, BMP, HS TROP ####[address] [address] USAPolychromasiaSlightGood Samaritan Medical Center Physician GroupComment on above: Performed By: #### BNP, CUBLD, DIFF CBC, LACTIC, PT, CK, BMP, HS TROP ####[address] [address] USARBC (Bld) [#/Vol]1.71 10*6/uLLow3.60-5.00The [facility] Health Physician GroupComment on above:Performed By: #### BNP, CUBLD, DIFF CBC, LACTIC, PT, CK, BMP, HS TROP ####[address] [address] [place] Segmented neutrophils/100 WBC (Bld)73 %Cvnc75-33Xgu [facility] Comment on above:Performed By: #### BNP, CUBLD, DIFF CBC, LACTIC, PT, CK, BMP, HS TROP ####[address] [address] USAWBC (Bld) [#/Vol]4.8 10*3/uLNormal3.8-11.6The [facility] Comment on above:Performed By: #### BNP, CUBLD, DIFF CBC, LACTIC, PT, CK, BMP, HS TROP ####[address] [address] USADipstick and Microscopicon 46-63-7605Aaasdevjzr (U)CloudyCritically abnormal ClearThe [facility] Health Physician GroupComment on above:Order Comment: Name Collection Type:: Straight CatheterPerformed By: #### ADDONUAPLUS, CUU ####[address] [place] Bacteria,Urine3+HighNone SeenThe [facility] Health Physician GroupComment on above:Order Comment: Name Collection Type:: Straight CatheterPerformed By: #### ADDONUAPLUS, CUU ####[address] [address] USABilirubin,UrineNegativeNormalNegativeThe [facility] Comment on above:Order Comment: Name Collection Type:: Straight Catheter Performed By: #### ADDONUAPLUS, CUU ####[address] USAColor (U)YellowNormalYellowThe [facility] Health Physician GroupComment on above:Order Comment: Name Collection Type:: Straight Catheter Performed By: #### ADDONUAPLUS, CUU ####[address] USAGlucose Ql (U)70 mg/dLHighNormalThe [facility] Health Physician GroupComment on above:Order Comment: Name Collection Type:: Straight CatheterPerformed By: #### ADDONUAPLUS, CUU ####[address], [address] USAHyaline Casts,Urine9 [LPF]High0-8The [facility] Health Physician GroupComment on above:Order Comment: Name Collection Type:: Straight CatheterPerformed By: #### ADDONUAPLUS, CUU ####[address], EB[address] USAKetones Ql (U)NegativeNormal NegativeThe [facility] Health Physician GroupComment on above:Order Comment: Name Collection Type:: Straight CatheterPerformed By: #### WOLFUAPLUS, CUU ####[address], [place] [place] Leukocyte esterase Test strip Ql (U)4+HighNegativeThe [facility] Comment on above:Order Comment: Name Collection Type:: Straight Catheter Performed By: #### ADDDALIAUAPLUS, CUU ####[address] USAMucus,UrineRareNormalThe [facility] Comment on above:Order Comment: Name Collection Type:: Straight CatheterResult Comment: PERFORMED BY:[address] [place], [place] [phone] MEDICAL DIRECTORALTHEA MEADOWS M.D. Performed By: #### JANNET, CUU ####[address] USANitrite,UrineNegativeNormalNegativeThe [facility] Health Physician GroupComment on above:Order Comment: Name Collection Type:: Straight CatheterPerformed By: #### ADDONUAPLUS, CUU ####[address], [id number] USANon-Squamous Epithelial Cell,U1 [HPF] HighNone SeenThe [facility] Health Physician GroupComment on above:Order Comment: Name Collection Type:: Straight CatheterPerformed By: #### ADDONUAPLUS, CUU ####[address]juliWater[place], [place]OR[address] USAOccult Blood,Urine2+HighNegativeThe [facility] Health Physician GroupComment on above:Order Comment: Name Collection Type:: Straight CatheterResult Comment: PERFORMED BY:[address] [place], [place] [phone] MEDICAL ANGELA MEADOWS M.D.Performed By: #### ADDONUAPLUS, CUU ####[address] [address] USApH (U)5.5 [pH]Normal5.0-9.0The [facility] Health Physician GroupComment on above:Order Comment: Name Collection Type:: Straight CatheterPerformed By: #### ADDONUAPLUS, CUU ####[address] [address] USAProtein (U) [Mass/Vol]50 mg/dLHighNegativeThe [facility] Comment on above:Order Comment: Name Collection Type:: Straight Catheter Performed By: #### ADDONUAPLUS, CUU ####[address] USARBC,Urine20 [HPF]High0-4The [facility] Health Physician GroupComment on above:Order Comment: Name Collection Type:: Straight Catheter Performed By: #### ADDONUAPLUS, CUU ####[address]alexandriaDIX[place], [place]VU[address] USASpecificy Independence,Urine1.240Omfjkf6.001-1.030The [facility] Health Physician GroupComment on above:Order Comment: Name Collection Type:: Straight CatheterPerformed By: #### ADDONUAPLUS, CUU ####[address]juliWater[place], [place]Q[address] USASquamous Epithelial Cell,Urine1 [HPF]Normal0-2The [facility] Health Physician GroupComment on above:Order Comment: Name Collection Type:: Straight CatheterPerformed By: #### ADDONUAPLUS, CUU ####[address] [place] Urobilinogen,Urine3 mg/dLHighNoAtrium Health Huntersville Physician GroupComment on above:Order Comment: Name Collection Type:: Straight CatheterPerformed By: #### JANNET, CUU ####[facility] [facility] [place] [address] USAWBC CLUMP, UrineManyHighNone [facility] Physician GroupComment on above:Order Comment: Name Collection Type:: Straight CatheterPerformed By: #### JESUSPLUS, CUU ####[facility] [facility], [place] USAWBC,UrineInnumerableHigh0-4The [facility] Health Physician GroupComment on above:Order Comment: Name Collection Type:: Straight Catheter Performed By: #### JANNET, CUU ####[facility] [facility], [address] USAECG 12 lead ECGon 20-45-9610LXT 12 lead ECGGood Samaritan Medical Center Physician GroupEosinophils Auto (Bld) [#/Vol]Ordered By: Mode Ellsworth on 01-14-4620Tixxdbrndpb (Bld) [#/Vol]Automated eosinophil count0.0-0.45 White HospitalEosinophils/100 WBC Auto (Bld)Ordered By: Mode Ellsworth on 72-11-4447Zehadushllp/100 WBC (Bld)Automated eosinophil %. White HospitalEosinophils/100 WBC Manual cnt (Bld)Ordered By: Mode Ellsworth on 28-76-5217Pwevzwgcmxa/100 WBC (Bld)Eosinophils/100 leukocytes in Blood by Manual count1-3FThe Bellevue HospitalEpithelial cells.non-squamous [#/area] in Urine sediment by Automated countOrdered By: Mode Ellsworth on 55-67-9950Lhezgysraa cells.non-squamous Auto (Urine sed) [#/Area]Epithelial cells.non-squamous [#/area] in Urine sediment by Automated countSelect Medical Cleveland Clinic Rehabilitation Hospital, BeachwoodEpithelial cells.squamous [#/area] in Urine sediment by Automated countOrdered By: Mode Ellsworth on 11-55-0596Ferogdnokw cells.squamous Auto (Urine sed) [#/Area]Epithelial cells.squamous [#/area] in Urine sediment by Automated count0-2FThe Bellevue HospitalErythrocyte distribution width Auto (RBC) [Ratio]Ordered By: Mode Ellsworth on 05-24-7728Vuipiykgljq distribution width (RBC) [Ratio] Erythrocyte distribution width [Ratio] by Automated count11.9-15.3FThe Bellevue HospitalErythrocyte morphology finding [Identifier] in Blood Ordered By: Mode Ellsworth on 29-09-2875ZLM morphology finding Nom (Bld)RBC morphologyWhite HospitalErythrocytes [#/area] in Urine sediment by Automated countOrdered By: Mode Ellsworth on 35-35-4162TGL Auto (Urine sed) [#/Area]Erythrocytes [#/area] in Urine sediment by Automated countHigh0-4 White HospitalGlucose [Mass/volume] in Serum or PlasmaOrdered By: Mode Ellsworth on 56-38-1925Mbfdxol [Mass/Vol]Glucose [Mass/volume] in Serum or VoefzjUxjh03-883TqxpsjgleWhite HospitalComment on above:ADA recommended reference rangeRandom Glucose Reference Range is dependent on time and content of last meal. Glucose of more than 200 mg/dL in a nonstressed, ambulatory subject supports the diagnosisof Diabetes Mellitus.Glucose [Mass/volume] in Urine by Test stripOrdered By: Mode Ellsworth on 09-17-2024 Glucose Test strip (U) [Mass/Vol]Glucose [Mass/volume] in Urine by Test strip HighNormalWhite HospitalHematocrit Auto (Bld) [Volume fraction]Ordered By: Mode Ellsworth on 65-40-5518Obhfplvqhz (Bld) [Volume fraction]Hematocrit [Volume Fraction] of Blood by Automated countCritically low 34.0-46.4FThe Bellevue HospitalComment on above:Critical valueresult calledat 1330 on 09/17/24Hemoglobin Test strip Ql (U)Ordered By: Mode Ellsworth on 29-68-2856Xzlzwqqlre Ql (U)Hemoglobin [Presence] in Urine by Test stripHigh NegativeWhite HospitalHemoglobin [Mass/volume] in Blood Ordered By: Mode Ellsworth on 56-88-7330Znmnfatcnv (Bld) [Mass/Vol]Hemoglobin [Mass/volume] in QaommLxn94.8-15.4FThe Bellevue HospitalHyaline casts [#/area] in Urine sediment by Automated countOrdered By: Mode Ellsworth on 90-02-7932Ihifnfo casts Auto (Urine sed) [#/Area]Hyaline casts [#/area] in Urine sediment by Automated countHigh0-8White HospitalHypochromia LM Ql (Bld)Ordered By: Mode Ellsworth on 51-59-5623Sirijdgkugh Ql (Bld)Hypochromia [Presence] in Blood by Light microscopyWhite HospitalINR in Platelet poor plasma by Coagulation assayOrdered By: Mode Ellsworth on 09-17-2024 INR Coag (PPP) [Relative time]INR in Platelet poor plasma by Coagulation assay White HospitalComment on above:INR Therapeutic Range A) Pre- and [...] strip Ql (U)Ordered By: Mode Ellsworth on 68-08-3207Ibuitzo Ql (U)Ketones [Presence] in Urine by Test stripNegativeWhite HospitalLaboratory - Microbiology and Antimicrobial susceptibilityOrdered By: Mode Ellsworth on 09-15-0718Rdnouojt identified Cx Nom (Bld)Streptococcus [facility] identified Cx Nom (Bld)Streptococcus [facility] identified Cx Nom (Bld)Streptococcus pneumoniae - [facility] CenterBacteria identified Cx Nom (Bld)Streptococcus pneumoniae - [facility] at [facility] HospitalLactate [Moles/volume] in Serum or PlasmaOrdered By: Mode Ellsworth on 79-46-6877Lrfplgc [Moles/Vol]Lactate [Moles/volume] in Serum or Plasma0.5-2.2FThe Bellevue HospitalLactic Acidon 11-41-7665Ytlnujd [Moles/Vol]1.2 mmol/LNormal0.5-2.2 The [facility] Health Physician GroupComment on above:Result Comment: PERFORMED BY:[facility] [place], [place] [phone] MEDICAL DIRECTORALTHEA MEADOWS M.D.Performed By: #### BNP, CUBLD, DIFF CBC, LACTIC, PT, CK, BMP, HS TROP ####[facility] [address] [place] [address] USALeukoReduced RBCon 09-17-2024 LeukoReduced RBCTRANSFUSED 09/17/24 1635[facility] Leukocyte clumps [Presence] in Urine by AutomatedOrdered By: Mode Ellsworth on 66-85-0780Biifiwqbg clumps Auto Ql (U)Leukocyte clumps [Presence] in Urine by AutomatedBoston Sanatorium SeenWhite HospitalLeukocyte esterase [Presence] in Urine by Test stripOrdered By: Mode Ellsworth on 25-22-4607Egrysmmyq esterase Test strip Ql (U)Leukocyte esterase [Presence] in Urine by Test strip [facility] HospitalNegSumma HealthLeukocytes [#/area] in Urine sediment by Automated countOrdered By: Mode Ellsworth on 33-25-6370LKU Auto (Urine sed) [#/Area]Leukocytes [#/area] in Urine sediment by Automated countHigh0-4 White HospitalLeukocytes [#/volume] corrected for nucleated erythrocytes in Blood by Automated counOrdered By: Mode Ellsworth on 00-01-0415RXO corrected for nucl RBC Auto (Bld) [#/Vol]Leukocytes [#/volume] corrected for nucleated erythrocytes in Blood by Automated coun3.8-11.6FThe Bellevue HospitalLymphocytes Auto (Bld) [#/Vol]Ordered By: Mode Ellsworth on 98-70-1743Odtazqbwccu (Bld) [#/Vol]Lymphocytes [#/volume] in Blood by Automated countLow1.00-4.8White HospitalLymphocytes/100 WBC Auto (Bld) Ordered By: Mode Ellsworth on 05-68-6902Vnrriwzrwxs/100 WBC (Bld)Lymphocytes/100 leukocytes in Blood by Automated count.[facility] Lymphocytes/100 WBC Manual cnt (Bld)Ordered By: Mode Ellsworth on 09-17-2024 Lymphocytes/100 WBC (Bld)Lymphocytes/100 leukocytes in Blood by Manual countLow 18-42White HospitalMCH Auto (RBC) [Entitic mass]Ordered By: Mode Ellsworth on 16-72-1515VBH (RBC) [Entitic mass]MCH [Entitic mass] by Automated count24.7-34.3FThe Bellevue HospitalMCHC Auto (RBC) [Mass/Vol]Ordered By: Mode Ellsworth on 36-52-1053EKKX (RBC) [Mass/Vol]MCHC [Mass/volume] by Automated vwpauPguq02.0-35.0[facility] MCV Auto (RBC) [Entitic vol]Ordered By: Mode Ellsworth on 61-29-6826MDI (RBC) [Entitic vol]MCV [Entitic volume] by Automated sxyre84-620IcpnyudsuWhite HospitalMicrocytes LM Ql (Bld)Ordered By: Mode Ellsworth on 09-17-2024 Microcytes Ql (Bld)Microcytes [Presence] in Blood by Light microscopyWhite HospitalMonocyte distribution width [Entitic volume] in Blood by AutomatedOrdered By: Mode Ellsworth on 42-51-2659Gvpscxfq distribution width Auto (Bld) [Entitic vol]Monocyte distribution width [Entitic volume] in Blood by AutomatedHigh0.00-20.00White HospitalComment on above:For adults in ED, MDW > 20.0 may be associated with a higher risk of sepsis during the first 12 hrs of hospital admissionThe predictive value of MDW for identifying sepsis in patients with hematological abnormalities has not been establishedMonocytes Auto (Bld) [#/Vol]Ordered By: Mode Ellsworth on 09-17-2024 Monocytes (Bld) [#/Vol]Automated blood monocyte countHigh0.0-0.8White HospitalMonocytes/100 WBC Auto (Bld)Ordered By: Mode Ellsworth on 70-54-6446Pbiclwkyw/100 WBC (Bld)Automated monocyte %.White HospitalMonocytes/100 WBC Manual cnt (Bld)Ordered By: Mode Ellsworth on 09-17-2024 Monocytes/100 WBC (Bld)Monocytes/100 leukocytes in Blood by Manual countHigh2-11 White HospitalMucus [Presence] in Urine by AutomatedOrdered By: Mode Ellsworth on 02-05-6097Gepoq Auto Ql (U)Mucus [Presence] in Urine by AutomatedWhite HospitalNatriuretic peptide B [Mass/Vol] Ordered By: Mode Ellsworth on 98-42-4186Qkrdyypmxsk peptide B (Bld) [Mass/Vol]BNP ser/plasHigh5-100White HospitalNeutrophils Auto (Bld) [#/Vol] Ordered By: Mode Ellsworth on 92-88-4036Kkaeopnbrqt (Bld) [#/Vol]Neutrophils [#/volume] in Blood by Automated count1.8-7.7FThe Bellevue Hospital Neutrophils/100 WBC Auto (Bld)Ordered By: Mode Ellsworth on 09-17-2024 Neutrophils/100 WBC (Bld)Automated neutrophil %.White HospitalNitrite Test strip Ql (U)Ordered By: Mode Ellsworth on 04-89-5009Nchjplh Ql (U)Nitrite [Presence] in Urine by Test stripNegativeWhite HospitalNo Panel InformationOrdered By: Mode Ellsworth on 61-25-0891Nkyiidnnw GFR (CKD-EPI)39.473 mL/MinWhite HospitalPharmacy Creatinine Clearance (Chem35.84White HospitalBacterial ID (NA Multiplex Assay)White HospitalBacterial ID (NA Multiplex Assay) White HospitalNucleated erythrocytes [Presence] in Blood by Automated countOrdered By: Mode Ellswotrh on 66-13-8637Pfmahryfd RBC Auto Ql (Bld) Nucleated erythrocytes [Presence] in Blood by Automated count0-0.5FThe Bellevue HospitalOvalocytes [Presence] in Blood by Light microscopyOrdered By: Mode Ellsworth on 94-15-7117Subiyorpcv LM Ql (Bld)Ovalocyte detection White HospitalPlatelet adequacy [Presence] in Blood by Light microscopyOrdered By: Mode Ellsworth on 73-27-5571Opkdldwan LM Ql (Bld)Platelet adequacy [Presence] in Blood by Light microscopyNoOhioHealth Arthur G.H. Bing, MD, Cancer CenterPlatelet mean volume Auto (Bld) [Entitic vol]Ordered By: Mode Ellsworth on 46-83-8582Ejqmnguz mean volume (Bld) [Entitic vol]Platelet mean volume [Entitic volume] in Blood by Automated count6.3-10.7FThe Bellevue Hospital Platelet morphology finding [Identifier] in BloodOrdered By: Mode Ellsworth on 83-88-6714Uyzxoxoh morphology finding Nom (Bld)Platelet morphology finding [Identifier] in BloodNoOhioHealth Arthur G.H. Bing, MD, Cancer CenterPlatelets Auto (Bld) [#/Vol]Ordered By: Mode Ellsworth on 63-92-0176Zshfyuffw (Bld) [#/Vol]Platelets [#/volume] in Blood by Automated countCritically xek560-158RmjqhrxumWhite HospitalComment on above:Critical valueresult calledat 1330 on 09/17/24 Poikilocytosis [Presence] in Blood by Light microscopyOrdered By: Mode Ellsworth on 58-45-4753Ckwkeagfieahqv LM Ql (Bld)Poikilocytosis [Presence] in Blood by Light microscopyWhite HospitalPolychromasia [Presence] in Blood by Light microscopyOrdered By: Mode Ellsworth on 67-70-0773Hgvqbjurtusry LM Ql (Bld)Polychromasia [Presence] in Blood by Light microscopyWhite HospitalPotassium [Moles/volume] in Serum or PlasmaOrdered By: Mode Ellsworth on 76-54-9542Lemoghutp [Moles/Vol]Potassium [Moles/volume] in Serum or PlasmaLow3.5-5.1FThe Bellevue HospitalProtein Test strip (U) [Mass/Vol]Ordered By: Mode Ellsworth on 61-92-6728Fjdrohu (U) [Mass/Vol]Protein [Mass/volume] in Urine by Test stripHighNegativeWhite HospitalProthrombin Time INRon 79-40-0504YVN Coag (PPP) [Relative time]1.3 {INR} NormalThe [facility] Health Physician GroupComment on above:Result Comment: INR Therapeutic [...] with mechanical heart valves: 3 - 4.5PERFORMED BY:[address] [place], [place] [phone] MEDICAL DIRECTORALTHEA MEADOWS M.D. Performed By: #### BNP, CUBLD, DIFF CBC, LACTIC, PT, CK, BMP, HS TROP ####[address] [place] [address] USAPT Coag (PPP) [Time]15.2 sHigh9.0-12.9The [facility] Health Physician GroupComment on above: Result Comment: A hematocrit value greater than 55% may lead to inaccurate results in coagulation testing. Patients having hematocrit values >55% require a special collection tube for coagulation studies. Please contact the laboratory at [phone] for redraw instructions.Performed By: #### BNP, CUBLD, DIFF CBC, LACTIC, PT, CK, BMP, HS TROP ####[address] [address] USAProthrombin time (PT)Ordered By: Mode Ellsworth on 85-25-7744VR Coag (PPP) [Time]Prothrombin time (PT)High9.0-12.9White HospitalComment on above:A hematocrit value greater than 55% may lead to inaccurate results in coagulation testing. Patientshaving hematocrit values >55% require a special collection tube for coagulation studies. Please c ontact the laboratory at [phone] for redraw instructions.RBC Auto (Bld) [#/Vol]Ordered By: Mode Ellsworth on 45-42-4231KQV (Bld) [#/Vol]Erythrocytes [#/volume] in Blood by Automated countLow3.60-5.00White HospitalRespiratory (Upper) Panel, PCRon 98-20-6275Kufgxfcyicf (Upper) Panel, PCR NormalThe [facility]arn[facility] Health Physician GroupComment on above:Performed By: #### BIOFIRECOVNOTDE, RESP PANEL UPP. ####[facility] [place] [address] USARespiratory pathogens DNA and RNA panel - Nasopharynx by LUDIN with non-probe detectionOrdered By: Joe Garcia on 83-21-3240Ygnrehimplb pathogens DNA and RNA panel LUDIN+non-probe (Nph)Respiratory pathogens DNA and RNA panel - Nasopharynx by LUDIN with non-probe detection White HospitalRespiratory pathogens DNA and RNA panel LUDIN+non-probe (Nph)Respiratory pathogens DNA and RNA panel - Nasopharynx by LUDIN with non-probe detectionVeterans Health Administrationegmented neutrophils/100 WBC Manual cnt (Bld)Ordered By: Mode Ellsworth on 09-17-2024 Segmented neutrophils/100 WBC (Bld)Manual blood segmented neutrophils/100 drbvbqwwdcYynt93-29GqkwbjermVeterans Health Administrationerum or plasma anion gap determinationOrdered By: Mode Ellsworth on 41-44-1823Bwipy gap [Moles/Vol]Serum or plasma anion gap determinationHigh6.0-15.0[facility] Sodium [Moles/volume] in Serum or PlasmaOrdered By: Mode Ellsworth on 09-17-2024 Sodium [Moles/Vol]Sodium [Moles/volume] in Serum or MwxomzAgt983-106NltiykluxVeterans Health Administrationpecific gravity Test strip (U) [Rel density]Ordered By: Mode Ellsworth on 94-90-9931Narvjifi gravity (U) [Rel density]Specific gravity of Urine by Test strip1.001-1.030White HospitalTroponin I High Sensitivityon 00-14-3373Hjllaftf I High Tcbpmursmch11.6 pg/mLHigh0.0-15.0The [facility] Health Physician GroupComment on above:Result Comment: PERFORMED BY:[facility] [place], [place] [phone] MEDICAL DIRECTORALTHEA MEADOWS M.D.Performed By: #### TROP ####[address] [address] [facility] [[email or web address]] Troponin I High Uqwddiaqofq38.2 pg/mLHigh0.0-15.0The [facility] Comment on above:Result Comment: PERFORMED BY:[address] [place], [place] [phone] MEDICAL DIRECTORALTHEA MEADOWS M.D.Performed By: #### BNP, CUBLD, DIFF CBC, LACTIC, PT, CK, BMP, HS TROP ####[address] [address] USATroponin I.cardiac [Mass/volume] in Serum or Plasma by Detection limit <= 0.01 ng/Ordered By: Mode Ellsworth on 45-52-5089Lifxnoma I.cardiac DL <= 0.01 ng/mL [Mass/Vol]Troponin I.cardiac [Mass/volume] in Serum or Plasma by Detection limit <= 0.01 ng/High0.0-15.0White HospitalType and Screenon 85-05-1235NSK and Rh group Nom (Bld)Blood group O Rh(D) positiveNoAtrium Health Huntersville Physician GroupComment on above:Order Comment: Transfuse now? Y Number of units to transfuse now? 2Result Comment: PERFORMED BY:[address] [place], [place] [phone] MEDICAL DIRECTORALTHEA MEADOWS M.D.Urea nitrogen [Mass/volume] in Serum or PlasmaOrdered By: Mode Ellsworth on 08-52-8811Ytlq nitrogen [Mass/Vol]Urea nitrogen [Mass/volume] in Serum or PlasmaHigh7-25 White HospitalUrine Cultureon 04-69-6296Bzlamkqc identified Cx Nom (U)NormalThe [facility]arn[facility] Health Physician GroupComment on above:Performed By: #### ADDONUAPLUS, CUU ####[address] USAUrine cultureOrdered By: Mode Ellsworth on 16-46-1278Camcedew identified Cx Nom (U)Escherichia coliAbnoCleveland Clinic Foundation Medical Center Bacteria identified Cx Nom (U)Escherichia coliAbSelect Medical Specialty Hospital - Boardman, IncUrobilinogen Test strip (U) [Mass/Vol]Ordered By: Mode Ellsworth on 79-53-1598Krcfkescpyoc (U) [Mass/Vol]Urobilinogen [Mass/volume] in Urine by Test stripSt. Mary's Medical CenterWBC Auto (Bld) [#/Vol]Ordered By: Mode Ellsworth on 26-94-4691ACP (Bld) [#/Vol]Leukocytes [#/volume] in Blood by Automated count3.8-11.6FThe Bellevue HospitalpH Test strip (U) Ordered By: Mode Ellsworth on 54-17-7308wI (U)pH of Urine by Test strip5.0-9.0 White HospitalAlanine aminotransferase [Enzymatic activity/volume] in Serum or PlasmaOrdered By: Kush Glez on 95-14-9617QON [Catalytic activity/Vol]Alanine aminotransferase [Enzymatic activity/volume] in Serum or Plasma7-52White HospitalAlbumin [Mass/volume] in Serum or Plasma by Bromocresol green (BCG) dye binding methoOrdered By: Kush Hooker on 50-42-9838Lirexcy BCG dye [Mass/Vol]Albumin [Mass/volume] in Serum or Plasma by Bromocresol green (BCG) dye binding metho3.5-5.7FThe Bellevue HospitalAlkaline phosphatase [Enzymatic activity/volume] in Serum or PlasmaOrdered By: Kush Glez on 94-19-9228EIZ [Catalytic activity/Vol] Alkaline phosphatase [Enzymatic activity/volume] in Serum or Lmidow24-963 White HospitalAspartate aminotransferase [Enzymatic activity/volume] in Serum or PlasmaOrdered By: Kush Glez on 45-92-8407SLW [Catalytic activity/Vol]Aspartate aminotransferase [Enzymatic activity/volume] in Serum or Pzancg46-73WdqmnnzinWhite HospitalBand form neutrophils/100 WBC Manual cnt (Bld)Ordered By: Kush Glez on 08-52-8567Ybpj form neutrophils/100 WBC (Bld)Peripheral white blood cell differential % bands, microscopic exam0-5Fire[facility] Regional Medical CenterBand form neutrophils/100 leukocytes in Blood by Manual countOrdered By: Kush Glez on 04-04-1563Gopx form neutrophils/100 WBC (Bld)4 %Normal0-The [facility] Comment on above:Performed By: #### DIFF CBC, CMP ####[facility] [place] [address] USABasophils Auto (Bld) [#/Vol]Ordered By: Kush Glez on 05-46-3939Rornovhda (Bld) [#/Vol]Automated basophil count White HospitalBasophils/100 WBC Auto (Bld)Ordered By: Kush Hooker on 60-90-8603Wihsxhnmg/100 WBC (Bld)Automated basophil %White HospitalBilirubin.total [Mass/volume] in Serum or PlasmaOrdered By: Kush Glez on 80-73-0794Bpfpjeozh [Mass/Vol]Bilirubin.total [Mass/volume] in Serum or Plasma0.3-1.0White HospitalBlood toxic granulation detection by light microscopyOrdered By: Kush Glez on 11-39-4750Vtpwf granules LM Ql (Bld)Blood toxic granulation detection by light microscopyWhite HospitalToxic granules LM Ql (Bld)Slight White HospitalCalcium [Mass/volume] in Serum or PlasmaOrdered By: uKsh Glez on 97-00-6410Bhectgk [Mass/Vol]Calcium [Mass/volume] in Serum or Plasma8.6-10.3FThe Bellevue HospitalCarbon dioxide, total [Moles/volume] in Serum or PlasmaOrdered By: Kush Glez on 22-29-0331CG0 [Moles/Vol]Carbon dioxide, total [Moles/volume] in Serum or Lebiqp72.0-31.0 White HospitalChloride [Moles/volume] in Serum or Plasma Ordered By: Kush Glez on 56-08-3519Sdumsggd [Moles/Vol]Chloride [Moles/volume] in Serum or MpopxqRic23-626ZbiyffgqiWhite Hospital Comprehensive Metabolic Panelon 92-31-5149Ojwrqhk [Mass/Vol]3.8 g/dLNormal 3.5-5.7The [facility] Health Physician GroupComment on above:Performed By: #### DIFF CBC, CMP ####[address] [place] [address] USAAlbumin/Globulin [Mass ratio]1.3 {ratio}NormalThe [facility] Comment on above:Performed By: #### DIFF CBC, CMP ####[address] [address] USAALP [Catalytic activity/Vol]74 U/L Aciilb17-338Iil [facility] Health Physician GroupComment on above:Performed By: #### DIFF CBC, CMP ####[id number] USAALT [Catalytic activity/Vol]12 U/LNormal7-52The [facility] Health Physician GroupComment on above:Performed By: #### DIFF CBC, CMP ####[id number] USAAnion gap [Moles/Vol]13.5 mmol/LNormal6.0-15.0The [facility] Health Physician GroupComment on above:Performed By: #### DIFF CBC, CMP ####[id number] USAAST [Catalytic activity/Vol]17 U/YAhvulp35-35Tby [facility] Health Physician GroupComment on above:Performed By: #### DIFF CBC, CMP ####[id number] USABilirubin [Mass/Vol]0.5 mg/dL Normal0.3-1.0The [facility] Health Physician GroupComment on above:Performed By: #### DIFF CBC, CMP ####[address] [address] USACalcium [Mass/Vol]9.6 mg/dLNormal8.6-10.3The [facility] Physician [facility] Comment on above:Performed By: #### DIFF CBC, CMP ####[address] [address] USAChloride [Moles/Vol]95 mmol/LLow 98-107The [facility] Physician [facility] CenterComment on above:Performed By: #### DIFF CBC, CMP ####[place] [address] [place] CO2 [Moles/Vol]28.2 mmol/MWdwkjo01.0-31.0The [facility] Physician [facility] CenterComment on above:Performed By: #### DIFF CBC, CMP ####[place] [address] USACreatinine [Mass/Vol]1.22 mg/dLHigh0.60-1.20 The [facility] Health Physician GroupComment on above:Performed By: #### DIFF CBC, CMP ####[place] [address] [place] Creatinine Clr Calc Mpkrxzkz09.49NoAtrium Health Huntersville Physician [facility]idential CenterComment on above:Result Comment: PERFORMED BY:[address] MATSumiLucilaMITCHE[place], [place] [phone] MEDICAL DIRECTORALTHEA JIMENEZ M.D.Performed By: #### DIFF CBC, CMP ####[place] [address] USAEstimated GFR50.176 mL/MinNoAtrium Health Huntersville Physician [facility] CenterComment on above:Performed By: #### DIFF CBC, CMP ####[place] [address] [place] Globulin (S) [Mass/Vol]2.9 g/dLNoAtrium Health Huntersville Physician [facility] CenterComment on above:Performed By: #### DIFF CBC, CMP ####[place] [address] USAGlucose [Mass/Vol]122 mg/kQPruk65-836Bez [facility] Physician [facility] CenterComment on above:Result Comment: Random Glucose Reference Range is dependent on time and content of last meal. Glucose of more than 200 mg/dL in a nonstressed, ambulatory subject supports the diagnosis of Diabetes Mellitus. ADA recommended reference rangePerformed By: #### DIFF CBC, CMP ####[address] [place] [address] [place] Potassium [Moles/Vol]3.7 mmol/LNormal3.5-5.1The [facility] Health Physician GroupComment on above:Performed By: #### DIFF CBC, CMP ####[address] [place] [address] USAProtein [Mass/Vol]6.7 g/dLNormal 6.4-8.9The [facility] Health Physician GroupComment on above:Performed By: #### DIFF CBC, CMP ####[address] [address] USASodium [Moles/Vol]133 mmol/AEhl739-627Owj [facility] Physician GroupComment on above:Performed By: #### DIFF CBC, CMP ####[address] [address] USAUrea nitrogen [Mass/Vol]12 mg/dLNormal7-25The [facility] Health Physician GroupComment on above:Performed By: #### DIFF CBC, CMP ####[address] [address] [place] Creatinine [Mass/volume] in Serum or PlasmaOrdered By: Kush Glez on 67-40-3967Wsjlftgssn [Mass/Vol]Creatinine [Mass/volume] in Serum or PlasmaHigh 0.60-1.20[facility] CBCon 19-68-1593Jtutuwcoheb distribution width (RBC) [Ratio]14.8 %Lpdfqx87.9-15.3The [facility] Health Physician GroupComment on above:Performed By: #### DIFF CBC, CMP ####[address] [address] USAHematocrit (Bld) [Volume fraction]24.4 %Low34.0-46.4The [facility] Health Physician GroupComment on above: Performed By: #### DIFF CBC, CMP ####[address] [address] USAHemoglobin (Bld) [Mass/Vol]8.3 g/dLLow11.8-15.4The [facility] Health Physician GroupComment on above:Performed By: #### DIFF CBC, CMP ####[address] [address] [address] [facility] CITYH (RBC) [Entitic mass]31.5 bsXfnmnq02.7-34.3The [facility] Health Physician GroupComment on above:Performed By: #### DIFF CBC, CMP ####[address] [address] [address] [facility] CITYV (RBC) [Entitic vol]93.2 lVHephis91-006Miy [facility] Physician GroupComment on above:Performed By: #### DIFF CBC, CMP ####[address] [address] USAMean Corpuscular HGB Conc33.9 g/aOMygtim68.0-35.0The [facility] Health Physician GroupComment on above:Performed By: #### DIFF CBC, CMP ####[address] [address] USAMyelocytes1 %High0-0The [facility] Health Physician GroupComment on above:Performed By: #### DIFF CBC, CMP ####[address] [address] USANucleated Red Blood Cell1 /100{WBC}High0-0The [facility] Health Physician GroupComment on above:Performed By: #### DIFF CBC, CMP ####[address] [address] USAPlatelet EstimateNormalNormalNormHollywood Medical Center Physician GroupComment on above:Performed By: #### DIFF CBC, CMP ####[address] [address] USAPlatelet mean volume (Bld) [Entitic vol]8.9 fL Normal6.3-10.7The [facility] Physician GroupComment on above:Performed By: #### DIFF CBC, CMP ####[address] [address] USAPlatelet MorphologyNormalNormalNormHollywood Medical Center Phys[facility] Comment on above:Result Comment: PERFORMED BY:[address] [place], [place] [phone] MEDICAL DIRECTORALTHEA MEADOWS M.D.Performed By: #### DIFF CBC, CMP ####[address] [address] [place] Platelets (Bld) [#/Vol]155 10*3/aSAxzlam727-720Aas [facility] Comment on above:Performed By: #### DIFF CBC, CMP ####[address] [address] USAPromyelocytes1 %High0-0The [facility] Health Physician GroupComment on above:Performed By: #### DIFF CBC, CMP ####[address] [address] USARBC (Bld) [#/Vol]2.62 10*6/uLLow3.60-5.00The [facility] Health Physician GroupComment on above:Performed By: #### DIFF CBC, CMP ####[address] [address] USARBC morphology finding Nom (Bld)NormalNormalNoAtrium Health Huntersville Physician GroupComment on above:Performed By: #### DIFF CBC, CMP ####[address] [address] USAToxic Granulation SlightNormHollywood Medical Center Physician GroupComment on above:Performed By: #### DIFF CBC, CMP ####[address] [address] USAWBC (Bld) [#/Vol]14.3 10*3/uLHigh3.8-11.6The [facility] Comment on above:Performed By: #### DIFF CBC, CMP ####[address] [address] USAEosinophils Auto (Bld) [#/Vol]Ordered By: Kush Glez on 76-21-6244Uykavnnrhdz (Bld) [#/Vol]Automated eosinophil countWhite HospitalEosinophils/100 WBC Auto (Bld)Ordered By: tara Glez on 40-54-2504Gwfongkkiqe/100 WBC (Bld)Automated eosinophil % White HospitalErythrocyte distribution width Auto (RBC) [Ratio]Ordered By: tara Glez on 19-59-6276Dstmqqygnms distribution width (RBC) [Ratio]Erythrocyte distribution width [Ratio] by Automated count11.9-15.3 White HospitalErythrocyte morphology finding [Identifier] in BloodOrdered By: tara Glez on 23-59-4254AFG morphology finding Nom (Bld)RBC morphologyNormalWhite HospitalGlobulin Calc (S) [Mass/Vol] Ordered By: tara Glez on 99-16-9130Rdkhuoek (S) [Mass/Vol]Serum globulin measurement by calculation (mass/volume)White HospitalGlucose [Mass/volume] in Serum or PlasmaOrdered By: tara Glez on 94-45-9674Ifxkftc [Mass/Vol]Glucose [Mass/volume] in Serum or PufnsvTmwv09-281GiyeckzjiWhite HospitalComment on above:ADA recommended reference rangeRandom Glucose Reference Range is dependent on time and content of last meal. Glucose of more than 200 mg/dL in a nonstressed, ambulatory subject supports the diagnosisof Diabetes Mellitus.Hematocrit Auto (Bld) [Volume fraction]Ordered By: tara Hooker on 64-02-2158Ohoftpjary (Bld) [Volume fraction]Hematocrit [Volume Fraction] of Blood by Automated oalcwAzt42.0-46.4FThe Bellevue HospitalHemoglobin [Mass/volume] in BloodOrdered By: tara Glez on 09-03-2024 Hemoglobin (Bld) [Mass/Vol]Hemoglobin [Mass/volume] in WyrypDqy42.8-15.4 White HospitalLeukocytes [#/volume] corrected for nucleated erythrocytes in Blood by Automated counOrdered By: tara Glez on 09-03-2024 WBC corrected for nucl RBC Auto (Bld) [#/Vol]Leukocytes [#/volume] corrected for nucleated erythrocytes in Blood by Automated counHigh3.8-11.6FThe Bellevue HospitalLymphocytes Auto (Bld) [#/Vol]Ordered By: Kush Glez on 83-53-1957Pltjclidczk (Bld) [#/Vol]Lymphocytes [#/volume] in Blood by Automated countWhite HospitalLymphocytes/100 WBC Auto (Bld)Ordered By: Kush Glez on 86-99-3223Dypsrpjfwzz/100 WBC (Bld)Lymphocytes/100 leukocytes in Blood by Automated countWhite HospitalLymphocytes/100 WBC Manual cnt (Bld)Ordered By: Kush Glez on 24-10-7144Skxfoludnwf/100 WBC (Bld)Lymphocytes/100 leukocytes in Blood by Manual hspxeTdi61-39KexyufrjgWhite HospitalLymphocytes/100 leukocytes in Blood by Manual count Ordered By: Kush Glez on 35-91-0613Toqxohhoicm/100 WBC (Bld)12 %Hwh84-73 White HospitalComment on above:Performed By: #### DIFF CBC, CMP ####[facility] [address] [place] [address] [facility] Auto (RBC) [Entitic mass]Ordered By: Kush Glez on 21-09-1381SOG (RBC) [Entitic mass]MCH [Entitic mass] by Automated count24.7-34.3FThe Bellevue HospitalMCHC Auto (RBC) [Mass/Vol]Ordered By: Kush Glez on 09-03-2024 MCHC (RBC) [Mass/Vol]MCHC [Mass/volume] by Automated count32.0-35.0White HospitalMCV Auto (RBC) [Entitic vol]Ordered By: Kush Glez on 56-30-5844DAL (RBC) [Entitic vol]MCV [Entitic volume] by Automated xddoe19-559 White HospitalMonocytes Auto (Bld) [#/Vol]Ordered By: Kush Hooker on 39-48-7111Wcefczsls (Bld) [#/Vol]Automated blood monocyte count [facility] CenterMonocytes/100 WBC Auto (Bld)Ordered By: tara Hooker on 26-03-3413Qsxwdzrdn/100 WBC (Bld)Automated monocyte %White HospitalMonocytes/100 WBC Manual cnt (Bld)Ordered By: tara Hooker on 41-76-0347Fqrmvhuex/100 WBC (Bld)Monocytes/100 leukocytes in Blood by Manual count[address] StreetMonocytes/100 leukocytes in Blood by Manual countOrdered By: tara Glez on 92-94-3651Wkbvvanuu/100 WBC (Bld)14 %High[address] [place], [place] [address]Comment on above:Performed By: #### DIFF CBC, CMP ####[facility] [address] [facility] [place] [address] USAMyelocytes/100 WBC Manual cnt (Bld)Ordered By: tara Glez on 98-27-2437Dbzdcfmepi/100 WBC (Bld)Myelocytes/100 leukocytes in Blood by Manual count79 [address] StreetMyelocytes/100 WBC (Bld)1 %79 [address] StreetNeutrophils Auto (Bld) [#/Vol] Ordered By: tara Glez on 98-93-1808Jfwrdtlclui (Bld) [#/Vol]Neutrophils [#/volume] in Blood by Automated countWhite Hospital Neutrophils/100 WBC Auto (Bld)Ordered By: tara Glez on 09-03-2024 Neutrophils/100 WBC (Bld)Automated neutrophil %[facility] No Panel InformationOrdered By: [facility] on 59-79-2224Qijsaelys GFR (CKD-EPI)50.176 mL/MinWhite HospitalPharmacy Creatinine Clearance (Chem46.49White HospitalNucleated RBC/100 WBC Manual cnt (Bld) [Ratio]Ordered By: tara Glez on 37-15-1466Hoqksgfsf RBC/100 WBC (Bld) [Ratio]Nucleated erythrocytes/100 leukocytes [Ratio] in Blood by Manual count79 Jones StreetNucleated RBC/100 WBC (Bld) [Ratio]1 /100{WBC}High00White HospitalNucleated erythrocytes [Presence] in Blood by Automated countOrdered By: Kush Glez on 08-44-4521Iajrqlmdj RBC Auto Ql (Bld)Nucleated erythrocytes [Presence] in Blood by Automated countWhite HospitalPlatelet adequacy [Presence] in Blood by Light microscopyOrdered By: Kush Glez on 74-82-0975Phsiuwscg LM Ql (Bld)Platelet adequacy [Presence] in Blood by Light microscopyNoal White HospitalPlatelet mean volume Auto (Bld) [Entitic vol] Ordered By: Kush Glez on 85-34-8905Ajiyutly mean volume (Bld) [Entitic vol] Platelet mean volume [Entitic volume] in Blood by Automated count6.3-10.7 White HospitalPlatelet morphology finding [Identifier] in BloodOrdered By: Kush Glez on 71-68-4425Rtqmsffw morphology finding Nom (Bld)Platelet morphology finding [Identifier] in BloodNoOhioHealth Arthur G.H. Bing, MD, Cancer CenterPlatelets Auto (Bld) [#/Vol]Ordered By: Kush Glez on 94-57-3010Ycwuvlkjl (Bld) [#/Vol]Platelets [#/volume] in Blood by Automated -918HmkphjeyzWhite HospitalPotassium [Moles/volume] in Serum or PlasmaOrdered By: Kush Glez on 20-49-7479Pebsrohuc [Moles/Vol]Potassium [Moles/volume] in Serum or Plasma3.5-5.1FThe Bellevue Hospital Promyelocytes/100 WBC Manual cnt (Bld)Ordered By: Kush Glez on 09-03-2024 Promyelocytes/100 WBC (Bld)Promyelocytes/100 leukocytes in Blood by Manual count High00White HospitalPromyelocytes/100 WBC (Bld)1 %High00 White HospitalProtein [Mass/volume] in Serum or PlasmaOrdered By: Kush Glez on 17-45-7813Cwseeov [Mass/Vol]Protein [Mass/volume] in Serum or Plasma6.4-8.9White HospitalRBC Auto (Bld) [#/Vol] Ordered By: Kush Glez on 49-86-7419KVZ (Bld) [#/Vol]Erythrocytes [#/volume] in Blood by Automated countLow3.60-5.00[facility] Segmented neutrophils/100 WBC Manual cnt (Bld)Ordered By: Kush Glez on 47-95-4599Nsszglcht neutrophils/100 WBC (Bld)Manual blood segmented neutrophils/100 ezpyjagxsw49-35PowzszyvxVeterans Health Administrationegmented neutrophils/100 leukocytes in Blood by Manual countOrdered By: Kush Glez on 54-04-3266Ndkjehooi neutrophils/100 WBC (Bld)68 %Gbahmr36-79HnwuqrqznWhite HospitalComment on above:Performed By: #### DIFF CBC, CMP ####[facility] [address] [place] [address] USASerum or plasma albumin/globulin mass ratioOrdered By: Kush Glez on 09-03-2024 Albumin/Globulin [Mass ratio]Serum or plasma albumin/globulin mass ratio Veterans Health Administrationerum or plasma anion gap determinationOrdered By: Kush Glez on 56-27-4584Dyeqi gap [Moles/Vol]Serum or plasma anion gap determination6.0-15.0Veterans Health Administrationodium [Moles/volume] in Serum or PlasmaOrdered By: Kush Glez on 87-23-9192Zrokgf [Moles/Vol]Sodium [Moles/volume] in Serum or YkdtjiXzr425-117GzegphsrtWhite HospitalUrea nitrogen [Mass/volume] in Serum or PlasmaOrdered By: Kush Glez on 83-15-8298Iorh nitrogen [Mass/Vol]Urea nitrogen [Mass/volume] in Serum or Plasma 7-25White HospitalWBC Auto (Bld) [#/Vol]Ordered By: Kush Hooker on 37-43-9746KJE (Bld) [#/Vol]Leukocytes [#/volume] in Blood by Automated countHigh3.8-11.6FThe Bellevue HospitalAnisocytosis LM Ql (Bld)Ordered By: Kush Glez on 55-70-4214Pjzzmohbrldk Ql (Bld)Anisocytosis [Presence] in Blood by Light microscopyWhite Hospital Comprehensive Metabolic Panelon 14-17-1226Pnzoufm [Mass/Vol]3.9 g/dLNormal 3.5-5.7The [facility] Health Physician GroupComment on above:Performed By: #### CMP, DIFF CBC ####[place] [address] USAAlbumin/Globulin [Mass ratio]1.6 {ratio}NormalThe [facility] Comment on above:Performed By: #### CMP, DIFF CBC ####[address] [address] USAALP [Catalytic activity/Vol]79 U/L Dszczb08-222Uom [facility] Hospital - ErieComment on above:Performed By: #### CMP, DIFF CBC ####[address] [address] USAALT [Catalytic activity/Vol]9 U/LNormal7-52The [facility] CenterComment on above:Performed By: #### CMP, DIFF CBC ####[address] [address] USAAnion gap [Moles/Vol]10.3 mmol/LNormal6.0-15.0The [facility] CenterComment on above:Performed By: #### CMP, DIFF CBC ####[address] [address] USAAST [Catalytic activity/Vol]16 U/JRsahzj72-88Dtb [facility] Montgomery GroupComment on above:Performed By: #### CMP, DIFF CBC ####[address] [address] USABilirubin [Mass/Vol]0.2 mg/dL Low0.3-1.0The [facility] - ErieComment on above:Performed By: #### CMP, DIFF CBC ####[address] [address] USACalcium [Mass/Vol]9.1 mg/dLNormal8.6-10.3The [facility] Health Physician GroupComment on above:Performed By: #### CMP, DIFF CBC ####[place] [address] USAChloride [Moles/Vol]102 mmol/LNormal 98-107The [facility] Health Physician GroupComment on above:Performed By: #### CMP, DIFF CBC ####[place] [address] [place] CO2 [Moles/Vol]27.9 mmol/JZxfhtd00.0-31.0The [facility] Health Physician GroupComment on above:Performed By: #### CMP, DIFF CBC ####[place] [address] USACreatinine [Mass/Vol]0.93 mg/dLNormal0.60-1.20 The [facility] Health Physician GroupComment on above:Performed By: #### CMP, DIFF CBC ####[place] [address] [place] Creatinine Clr Calc Zerrlyhw51.99NoAtrium Health Huntersville Physician [facility] CenterComment on above:Result Comment: PERFORMED BY:[address] [place], [place] [phone] MEDICAL DIRECTORALTHEA JIMENEZ M.D.Performed By: #### CMP, DIFF CBC ####[place] [address] USAGFR/1.73 sq M.predicted MDRD (S/P/Bld) [Vol rate/Area]mL/min/{1.73_m2}NormalThe [facility] Health Physician GroupComment on above:Performed By: #### CMP, DIFF CBC ####[place] [address] USAGlobulin (S) [Mass/Vol]2.5 g/dLNoAtrium Health Huntersville Physician [facility] CenterComment on above:Performed By: #### CMP, DIFF CBC ####[place] [address] USAGlucose [Mass/Vol]87 mg/aWKksybg71-684Aix [facility] Health Physician GroupComment on above: Result Comment: Random Glucose Reference Range is dependent on time and content of last meal. Glucose of more than 200 mg/dL in a nonstressed, ambulatory subject supports the diagnosis of Diabetes Mellitus. ADA recommended reference rangePerformed By: #### CMP, DIFF CBC ####[place] [address] USAPotassium [Moles/Vol]4.2 mmol/LNormal3.5-5.1 The [facility] Health Physician GroupComment on above:Performed By: #### CMP, DIFF CBC ####[address] [address] USAProtein [Mass/Vol]6.4 g/dLNormal6.4-8.9The [facility] Health Physician GroupComment on above: Performed By: #### CMP, DIFF CBC ####[address] [address] USASodium [Moles/Vol]136 mmol/VQpoafu465-572Xrt [facility] Physician GroupComment on above:Performed By: #### CMP, DIFF CBC ####[address] [address] USAUrea nitrogen [Mass/Vol]15 mg/dLNormal7-25The [facility] Health Physician GroupComment on above:Performed By: #### CMP, DIFF CBC ####[address] [address] USADiff and CBCon 96-10-5331Saaqignwkjdk Ql (Bld) SlightNormalThe [facility] Health Physician GroupComment on above:Performed By: #### CMP, DIFF CBC ####[address] [address] USABand form neutrophils/100 WBC (Bld)11 %High0-5The [facility] Health Physician GroupComment on above:Performed By: #### CMP, DIFF CBC ####[address] [address] USAErythrocyte distribution width (RBC) [Ratio]14.3 %Urdssd05.9-15.3The [facility] Health Physician GroupComment on above:Performed By: #### CMP, DIFF CBC ####[place] [address] USAHematocrit (Bld) [Volume fraction]29.9 %Low 34.0-46.4The [facility] Health Physician GroupComment on above:Performed By: #### CMP, DIFF CBC ####[place] [address] USAHemoglobin (Bld) [Mass/Vol]10.1 g/dLLow11.8-15.4The [facility] Comment on above:Performed By: #### CMP, DIFF CBC ####[place] [address] USALymphocytes/100 WBC (Bld)14 %Ivv84-16 The [facility] Health Physician GroupComment on above:Performed By: #### CMP, DIFF CBC ####[place] [address] USAMCH (RBC) [Entitic mass]32.1 anKgfhcp26.7-34.3The [facility] Health Physician GroupComment on above:Performed By: #### CMP, DIFF CBC ####[place] [address] USAMCV (RBC) [Entitic vol]95.5 eHRoscva09-277Qma [facility] Physician GroupComment on above:Performed By: #### CMP, DIFF CBC ####[place] [address] USAMean Corpuscular HGB Conc33.6 g/oDNhyprm15.0-35.0The [facility] Health Physician GroupComment on above:Performed By: #### CMP, DIFF CBC ####[place] [address] USAMetamyelocytes4 %High0-0The [facility] Health Physician GroupComment on above:Performed By: #### CMP, DIFF CBC ####[place] [address] USAMonocytes/100 WBC (Bld)8 %Normal2-11The [facility] Health Physician GroupComment on above:Performed By: #### CMP, DIFF CBC ####[address] [address] USAOvalocytesSAlleghany Health Physician GroupComment on above: Performed By: #### CMP, DIFF CBC ####[address] [address] USAPlatelet EstimateDecreasedNormHCA Florida University Hospital Physician GroupComment on above:Result Comment: PERFORMED BY:[place] [address] [place], [place] [phone] MEDICAL DIRECTORALTHEA MEADOWS M.D.Performed By: #### CMP, DIFF CBC ####[address] [address] [place] Platelet mean volume (Bld) [Entitic vol]8.3 fLNormal6.3-10.7The [facility] Health Physician GroupComment on above:Performed By: #### CMP, DIFF CBC ####[address] [address] USAPlatelet Morphology NormalNormHCA Florida University Hospital Physician GroupComment on above:Result Comment: PERFORMED BY:[place] [address] [place], [place] [phone] MEDICAL DIRECTORALTHEA MEADOWS M.D. Performed By: #### CMP, DIFF CBC ####[address] [address] USAPlatelets (Bld) [#/Vol]140 10*3/pILne235-008Puz [facility] Physician GroupComment on above:Performed By: #### CMP, DIFF CBC ####[address] [address] USA PoikilocytosisSAlleghany Health Physician GroupComment on above: Performed By: #### CMP, DIFF CBC ####[address] [address] USAPolychromasiaSAlleghany Health Physician GroupComment on above:Performed By: #### CMP, DIFF CBC ####[address] [address] USARBC (Bld) [#/Vol]3.14 10*6/uL Low3.60-5.00The [facility] Health Physician GroupComment on above:Performed By: #### CMP, DIFF CBC ####[address] [address] USAReactive Lymphocytes7 %Normal0-12The [facility] Health Physician GroupComment on above:Performed By: #### CMP, DIFF CBC ####[address] [address] USASegmented neutrophils/100 WBC (Bld)57 %Normal 50-70The [facility] Health Physician GroupComment on above:Performed By: #### CMP, DIFF CBC ####[address] [address] [place] StomatocytesSlightNormalThe [facility] Health Physician GroupComment on above:Performed By: #### CMP, DIFF CBC ####[address] [address] USAWBC (Bld) [#/Vol]19.1 10*3/uLHigh3.8-11.6The [facility] Physician GroupComment on above:Performed By: #### CMP, DIFF CBC ####[address] [address] [place] Metamyelocytes/100 WBC Manual cnt (Bld)Ordered By: Kush Glez on 08-21-2024 Metamyelocytes/100 WBC (Bld)Metamyelocytes/100 leukocytes in Blood by Manual countHigh0-0White HospitalMetamyelocytes/100 WBC (Bld)4 %High 0-0White HospitalOvalocytes [Presence] in Blood by Light microscopyOrdered By: Kush Glez on 04-17-9123Fittpcoshf LM Ql (Bld) Ovalocyte detectionWhite HospitalPoikilocytosis [Presence] in Blood by Light microscopyOrdered By: Kush Glez on 05-08-0524Xgqilemmlzidtd LM Ql (Bld)Poikilocytosis [Presence] in Blood by Light microscopyWhite HospitalPolychromasia [Presence] in Blood by Light microscopy Ordered By: Kush Glez on 80-39-4360Qbrxztfitmyxw LM Ql (Bld)Polychromasia [Presence] in Blood by Light microscopyWhite Hospital Stomatocytes [Presence] in Blood by Light microscopyOrdered By: Kush Glez on 79-19-1891Mgqpzpgdiugt LM Ql (Bld)Red blood cell stomatocyte detection [facility] Administrationtomatocytes LM Ql (Bld)SlightWhite HospitalVariant lymphocytes/100 WBC Manual cnt (Bld)Ordered By: Kush Glez on 44-51-2304Miswkah lymphocytes/100 WBC (Bld)Variant lymphocytes/100 leukocytes in Blood by Manual count0-White HospitalVariant lymphocytes/100 WBC (Bld)7 %0-White HospitalComprehensive Metabolic Panelon 33-91-0498Jbafqvk [Mass/Vol]4.0 g/dL Normal3.5-5.7The [facility] Health Physician GroupComment on above:Performed By: #### CMP, DIFF CBC ####[address] [address] USAAlbumin/Globulin [Mass ratio]1.4 {ratio}NormalAdventhealth Lake Placid Physician [facility] CenterComment on above:Performed By: #### CMP, DIFF CBC ####[address] [address] USAALP [Catalytic activity/Vol]88 U/LXblpma50-592Bck [facility] Physician GroupComment on above:Performed By: #### CMP, DIFF CBC ####[address] [address] USAALT [Catalytic activity/Vol]11 U/LNormal7-52The [facility] Health Physician GroupComment on above:Performed By: #### CMP, DIFF CBC ####[address] [address] USAAnion gap [Moles/Vol]12.1 mmol/LNormal6.0-15.0The [facility] Health Physician GroupComment on above:Performed By: #### CMP, DIFF CBC ####[place] [address] USAAST [Catalytic activity/Vol]18 U/AXinvhc14-29Yxo [facility] Physician GroupComment on above:Performed By: #### CMP, DIFF CBC ####[place] [address] USABilirubin [Mass/Vol]0.3 mg/dL Normal0.3-1.0The [facility] Health Physician GroupComment on above:Performed By: #### CMP, DIFF CBC ####[place] [address] USACalcium [Mass/Vol]9.3 mg/dLNormal8.6-10.3The [facility] Comment on above:Performed By: #### CMP, DIFF CBC ####[place] [address] USAChloride [Moles/Vol]102 mmol/LNormal 98-107The [facility] Physician [facility] CenterComment on above:Performed By: #### CMP, DIFF CBC ####[address] [address] [place] CO2 [Moles/Vol]28.7 mmol/JBdruzw52.0-31.0The [facility]ician [facility] CenterComment on above:Performed By: #### CMP, DIFF CBC ####[address] [address] USACreatinine [Mass/Vol]0.82 mg/dLNormal0.60-1.20 The [facility] Health Physician GroupComment on above:Performed By: #### CMP, DIFF CBC ####[address] [address] [place] Creatinine Clr Calc Vfuamfwl56.17NormalThe [facility] Physician [facility] CenterComment on above:Result Comment: PERFORMED BY:[address] [place], [place] [phone] MEDICAL DIRECTORALTHEA JIMENEZ M.D.Performed By: #### CMP, DIFF CBC ####[address] [address] USAGFR/1.73 sq M.predicted MDRD (S/P/Bld) [Vol rate/Area]mL/min/{1.73_m2}NormalThe [facility] Health Physician GroupComment on above:Performed By: #### CMP, DIFF CBC ####[address] [address] USAGlobulin (S) [Mass/Vol]2.9 g/dLNormalThNell J. Redfield Memorial Hospital Physician GroupComment on above:Performed By: #### CMP, DIFF CBC ####[address] [address] USAGlucose [Mass/Vol]133 mg/zLDuzt79-763Lfb [facility] Physician GroupComment on above: Result Comment: Random Glucose Reference Range is dependent on time and content of last meal. Glucose of more than 200 mg/dL in a nonstressed, ambulatory subject supports the diagnosis of Diabetes Mellitus. ADA recommended reference rangePerformed By: #### CMP, DIFF CBC ####[address] [address] USAPotassium [Moles/Vol]3.8 mmol/LNormal3.5-5.1 The [facility] Physician GroupComment on above:Performed By: #### CMP, DIFF CBC ####[address] [address] USAProtein [Mass/Vol]6.9 g/dLNormal6.4-8.9The [facility] Physician GroupComment on above: Performed By: #### CMP, DIFF CBC ####[address] [address] USASodium [Moles/Vol]139 mmol/NLebjpm495-968Ryu [facility] Physician GroupComment on above:Performed By: #### CMP, DIFF CBC ####[address] [address] USAUrea nitrogen [Mass/Vol]11 mg/dLNormal7-25The [facility] Physician GroupComment on above:Performed By: #### CMP, DIFF CBC ####[address] [address] USADiff and CBCon 20-21-3056Oisg form neutrophils/100 WBC (Bld)4 %Normal0-5The [facility] Physician GroupComment on above:Performed By: #### CMP, DIFF CBC ####[place] [id number] USAErythrocyte distribution width (RBC) [Ratio] 14.0 %Sxqjvk64.9-15.3The [facility] Physician GroupComment on above:Performed By: #### CMP, DIFF CBC ####[place] [address] USAGiant Platelet Tally1 /100{WBC}NormalThe [facility] Comment on above:Performed By: #### CMP, DIFF CBC ####[place] [id number] USAHematocrit (Bld) [Volume fraction] 37.7 %Nohrrc65.0-46.4The [facility] Physician GroupComment on above:Performed By: #### CMP, DIFF CBC ####[address] [address] USAHemoglobin (Bld) [Mass/Vol]12.6 g/wYGvskcr39.8-15.4The [facility] Physician GroupComment on above:Performed By: #### CMP, DIFF CBC ####[place] [address] USALymphocytes/100 WBC (Bld)20 %Zxifoe98-48Lhg [facility] Physician GroupComment on above:Performed By: #### CMP, DIFF CBC ####[address] [address] USAMCH (RBC) [Entitic mass]32.0 apHqkvbh56.7-34.3The [facility] Physician GroupComment on above:Performed By: #### CMP, DIFF CBC ####[address] [address] USAMCV (RBC) [Entitic vol]95.5 sHJdhysj25-378Bzu [facility] Physician GroupComment on above:Performed By: #### CMP, DIFF CBC ####[address] [address] USAMean Corpuscular HGB Conc33.5 g/bTZrtczq29.0-35.0The [facility] Physician GroupComment on above:Performed By: #### CMP, DIFF CBC ####[address] [address] [place] Metamyelocytes2 %High0-0The [facility] Physician GroupComment on above:Performed By: #### CMP, DIFF CBC ####[place] [id number] USAMonocytes/100 WBC (Bld)12 %High2-11The [facility] Physician GroupComment on above:Performed By: #### CMP, DIFF CBC ####[address] [address] USAMyelocytes1 %High0-0 The [facility] Health Physician GroupComment on above:Performed By: #### CMP, DIFF CBC ####[address] [address] [address] [place] Nucleated Red Blood Cell1 /100{WBC}High0-0The [facility]arnett Health Physician GroupComment on above:Performed By: #### CMP, DIFF CBC ####[address] [address] USAPlatelet EstimateNormalNormalNormalThe [facility]arnett Health Physician GroupComment on above:Performed By: #### CMP, DIFF CBC ####[place] [address] [place] Platelet mean volume (Bld) [Entitic vol]7.8 fLNormal6.3-10.7The [facility] Health Physician GroupComment on above:Result Comment: PERFORMED BY:[address] [place], [place] [phone] MEDICAL DIRECTORALTHEA MEADOWS M.D.Performed By: #### CMP, DIFF CBC ####[place] [id number] [place] Platelet MorphologyNormalNormalNormSpanish Peaks Regional Health CenterComment on above:Result Comment: PERFORMED BY:[address] [place], [place] [phone] MEDICAL DIRECTORALTHEA JIMENEZ M.D.Performed By: #### CMP, DIFF CBC ####[address] [address] USAPlatelets (Bld) [#/Vol]227 10*3/uL Mmlfha731-022Zmo [facility] Health Physician GroupComment on above:Performed By: #### CMP, DIFF CBC ####[address] [address] USARBC (Bld) [#/Vol]3.95 10*6/uLNormal3.60-5.00The [facility] Health Physician GroupComment on above:Performed By: #### CMP, DIFF CBC ####[address] [address] USARBC morphology finding Nom (Bld)NormalNormalAustin Hospital and ClinicComment on above:Performed By: #### CMP, DIFF CBC ####[address] [address] USASegmented neutrophils/100 WBC (Bld)62 %Mkmapd12-98 The [facility] Physician [facility] CenterComment on above:Performed By: #### CMP, DIFF CBC ####[address] [address] USAToxic GranulationModerateNormSpanish Peaks Regional Health CenterComment on above:Performed By: #### CMP, DIFF CBC ####[address] [address] USAWBC (Bld) [#/Vol]9.1 10*3/uLNormal3.8-11.6The [facility] Physician [facility] CenterComment on above:Performed By: #### CMP, DIFF CBC ####[place] [id number] USAGiant platelets/100 leukocytes [Ratio] in Blood by Manual countOrdered By: Kush IlanaAdan Iselaomero on 12-79-8989Pyztw platelets/100 WBC Manual cnt (Bld) [Ratio]Giant platelets/100 leukocytes [Ratio] in Blood by Manual countWhite HospitalGiant platelets/100 WBC Manual cnt (Bld) [Ratio]1 /100{WBC} White HospitalAmbulatory Visit Summaryon 01-87-0615Eznutmjreg Visit SummaryAmbulatory Visit Summary ADELINA MIR :1960 [...] mg Tab) fluticasone nasal (Flonase 0.05 mg/inh [place]) gabapentin (gabapentin 300 mg Cap) hydrochlorothiazide-losartan (Hyzaar [...] PM EST With: Michael Holley MD Where: [address] [address]- Monday 1:00 PM EDT With: Where: [place] [id number]- Medications What How Much When Why Instructions [...] Unchanged fluticasone nasal (Flonase 0.05 mg/ inh [place]) 2 Sprays Nasal Inhalation Every day Anxiety [...] of osteoarthritis Idiopathic polyneuropathy 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 [facility] SystemAmb[facility] Summary Ambulatory Visit Summary ADELINA MIR [...] mg Tab) fluticasone nasal (Flonase 0.05 mg/inh [place]) gabapentin (gabapentin 300 mg Cap) hydrochlorothiazide-losartan (Hyzaar [...] Follow-Up Appointments Monday 2:20 PM EST With: Roshan BRAUN MD Where: [facility] General Surgery [address], [address], [place] [address]- Monday 1:00 PM EST With: Michael Holley MD Where: [address] [id number]- Monday 1:00 PM EDT With: Where: [address] [address]- Medications What How Much When Why Instructions New cetirizine (cetirizine 10 mg Tab) 1 Tablets By Mouth Every day Anxiety Breast cancer of lower-inner quadrant of left female breast HTN (hypertension) BMI 24.0-24.9, adult Former smoker Seasonal allergies Pickup at [facility] New fluticasone nasal (Flonase 0.05 mg/ inh [place]) 2 Sprays Nasal Inhalation Every day Anxiety Breast cancer of lower-inner quadrant of left female breast HTN (hypertension) BMI 24.0-24.9, adult Former smoker Seasonal allergies each nostril Pickup at [facility] 115 Unchanged alprazolam (alprazolam 0.25 mg Tab) See [...] tabs a day Pharmacy Information [facility]: [address], [place] [phone] Allergies Entex (Unknown) Skelaxin (Unknown) corticosteroids (Anaphylaxis) Problems Ongoing - Any problem that you are currently receiving treatment for. 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 [facility] Medicine Office/Clinic Noteon [phone] Medicine Office/Clinic NoteBaystate [facility] Office/Clinic Note HPI Staff Adelina is [...] Depression Screening Negative 3352F Drug Screen POC 79001 Most recent diastolic blood pressure 80-89 mm [...] Depression Screening Negative 3352F Drug Screen POC [address]65[address] Most recent diastolic blood pressure 80-89 mm [...] Depression Screening Negative 3352F Drug Screen POC 66272 Most recent diastolic blood pressure 80-89 mm [...] no injury in last (more content not included)...[facility] SystemComment on above:Result Comment: Electronically Signed By: Kishan PRATT, Michael Ball.br\Date and Time Signed: 08/06/24 13:40 ESTGeneral Surgery Office/Clinic Noteon 08-06-2024 General Surgery Office/Clinic NoteGeneral Surgery Office/Clinic Note Chief Complaint post operative follow up HPI Staff 15 day post operative follow up post insertion of Rljtip-w-dcqs. Denies discomfort, no use of pain medication. 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 Redfield Memorial Hospital Physician GroupComprehensive Metabolic Panelon 84-41-1269Zsfphlq [Mass/Vol]3.8 g/dLNormal3.5-5.7The [facility] Physician [facility] CenterComment on above:Performed By: #### SCAN CBC, CMP ####[address] [address] USAAlbumin/Globulin [Mass ratio]1.6 {ratio}NormalThe [facility] Physician [facility] CenterComment on above:Performed By: #### SCAN CBC, CMP ####[address] [address] USAALP [Catalytic activity/Vol]96 U/ICnughb16-238Isy [place] Physician [facility] CenterComment on above: Performed By: #### SCAN CBC, CMP ####[address] [address] USAALT [Catalytic activity/Vol]9 U/LNormal7-52The [facility] Health Physician GroupComment on above:Performed By: #### SCAN CBC, CMP ####[place] [address] [place] [address] USAAnion gap [Moles/Vol]10.3 mmol/LNormal6.0-15.0The [facility] Health Physician GroupComment on above:Performed By: #### SCAN CBC, CMP ####[place] [address] [place] [address] USAAST [Catalytic activity/Vol]17 U/JGbutvk32-57 The [facility] Health Physician GroupComment on above:Performed By: #### SCAN CBC, CMP ####[place] [address] [place] [address] [place] Bilirubin [Mass/Vol]0.5 mg/dLNormal0.3-1.0The [facility] Health Physician GroupComment on above:Performed By: #### SCAN CBC, CMP ####[address] [address] USACalcium [Mass/Vol]8.9 mg/dLNormal8.6-10.3The [facility] Health Physician GroupComment on above:Performed By: #### SCAN CBC, CMP ####[address] [address] [place] Chloride [Moles/Vol]102 mmol/FVxrfno50-428Zqm [facility] Health Physician GroupComment on above:Performed By: #### SCAN CBC, CMP ####[address] [address] USACO2 [Moles/Vol]28.9 mmol/DRyamkm93.0-31.0The [facility] Health Physician GroupComment on above:Performed By: #### SCAN CBC, CMP ####[address] [address] [place] Creatinine [Mass/Vol]0.78 mg/dLNormal0.60-1.20The [facility] Group Comment on above:Performed By: #### SCAN CBC, CMP ####[address] [address] USACreatinine Clr Calc Azhkedxx62.72 NormalThe Cape Fear/Harnett Health Physician GroupComment on above:Result Comment: PERFORMED BY:[address] [place], [place] [phone] MEDICAL DIRECTORALTHEA MEADOWS M.D.Performed By: #### SCAN CBC, CMP ####[address] [address] USAGFR/1.73 sq M.predicted MDRD (S/P/Bld) [Vol rate/Area]mL/min/{1.73_m2} NormalThe Cape Fear/Harnett Health Physician GroupComment on above:Performed By: #### SCAN CBC, CMP ####[place] [address] [place] Globulin (S) [Mass/Vol]2.4 g/dLNormalThe [facility]/Harnett Health Physician GroupComment on above:Performed By: #### SCAN CBC, CMP ####[place] [address] USAGlucose [Mass/Vol]108 mg/bGIpgn09-991Hzu [facility] Health Physician GroupComment on above:Result Comment: Random Glucose Reference Range is dependent on time and content of last meal. Glucose of more than 200 mg/dL in a nonstressed, ambulatory subject supports the diagnosis of Diabetes Mellitus. ADA recommended reference rangePerformed By: #### SCAN CBC, CMP ####[place] [address] [place] Potassium [Moles/Vol]4.2 mmol/LNormal3.5-5.1The [facility] Health Physician GroupComment on above:Performed By: #### SCAN CBC, CMP ####[place] [address] USAProtein [Mass/Vol]6.2 g/dLLow6.4-8.9 The [facility] Health Physician GroupComment on above:Performed By: #### SCAN CBC, CMP ####[place] [address] USASodium [Moles/Vol]137 mmol/WYdolxz444-022Shf [facility] Health Physician GroupComment on above: Performed By: #### SCAN CBC, CMP ####[place] [address] USAUrea nitrogen [Mass/Vol]23 mg/dLNormal7-25The [facility] Health Physician GroupComment on above:Performed By: #### SCAN CBC, CMP ####[place] [address] USAScan and CBCon 49-91-0771Pzuwswdpg (Bld) [#/Vol]0.0 10*3/uLNormal0.0-0.2The [facility] Health Physician GroupComment on above:Performed By: #### SCAN CBC, CMP ####[place] [address] USABasophils/100 WBC (Bld)0.6 %Normal.The [facility] Health Physician GroupComment on above:Performed By: #### SCAN CBC, CMP ####[place] [address] USAEosinophils (Bld) [#/Vol]0.2 10*3/uLNormal0.0-0.45The [facility] Health Physician GroupComment on above:Performed By: #### SCAN CBC, CMP ####[place] [address] USAEosinophils/100 WBC (Bld)4.3 %Normal.The [facility] Health Physician GroupComment on above:Performed By: #### SCAN CBC, CMP ####[place] [address] USAErythrocyte distribution width (RBC) [Ratio]14.6 %Nmnryy88.9-15.3The [facility] Health Physician GroupComment on above:Performed By: #### SCAN CBC, CMP ####[place] [address] [place] Hematocrit (Bld) [Volume fraction]35.0 %Glvjvy56.0-46.4The [facility] Health Physician GroupComment on above:Performed By: #### SCAN CBC, CMP ####[place] [address] USAHemoglobin (Bld) [Mass/Vol] 12.0 g/qBSiywbm37.8-15.4The [facility] Health Physician GroupComment on above:Performed By: #### SCAN CBC, CMP ####[place] [address] USAHypersegmented NeutrophilsSlightNormalThe [facility]arnett Health Physician GroupComment on above:Performed By: #### SCAN CBC, CMP ####[place] [address] USALymphocytes (Bld) [#/Vol]1.2 10*3/uLNormal1.00-4.8The [facility] Health Physician GroupComment on above: Performed By: #### SCAN CBC, CMP ####[place] [address] USALymphocytes/100 WBC (Bld)20.6 %Normal.The [facility] Health Physician GroupComment on above:Performed By: #### SCAN CBC, CMP ####[address] (RBC) [Entitic mass]32.6 jcCcedbn19.7-34.3The [facility] Health Physician GroupComment on above: Performed By: #### SCAN CBC, CMP ####[address] (RBC) [Entitic vol]95.1 vBNuetna83-450Fmb [facility] Health Physician GroupComment on above:Performed By: #### SCAN CBC, CMP ####[place] [address] USAMean Corpuscular HGB Conc34.3 g/jOTbdyop32.0-35.0The [facility] Health Physician GroupComment on above:Performed By: #### SCAN CBC, CMP ####[place] [address] USAMonocytes (Bld) [#/Vol]0.0 10*3/uLNormal 0.0-0.8The [facility] Health Physician GroupComment on above:Performed By: #### SCAN CBC, CMP ####[place] [address] USAMonocytes/100 WBC (Bld)0.6 %Normal.The [facility] Health Physician GroupComment on above:Performed By: #### SCAN CBC, CMP ####[place] [address] USANeutrophils (Bld) [#/Vol]4.2 10*3/uLNormal 1.8-7.7The [facility] Health Physician GroupComment on above:Performed By: #### SCAN CBC, CMP ####[place] [address] USANeutrophils/100 WBC (Bld)73.9 %Normal.The [facility] Health Physician GroupComment on above:Performed By: #### SCAN CBC, CMP ####[place] [address] USANRBC%0.2 /100{WBC}Normal0-0.5The [facility] Health Physician GroupComment on above:Performed By: #### SCAN CBC, CMP ####[place] [address] USAPlatelet Estimate NormalNormalNormHollywood Medical Center Physician [facility] CenterComment on above:Performed By: #### SCAN CBC, CMP ####[place] [address] USAPlatelet mean volume (Bld) [Entitic vol]7.9 fLNormal6.3-10.7The [facility] Health Physician GroupComment on above:Performed By: #### SCAN CBC, CMP ####[place] [address] [place] Platelet MorphologyNormalNormalNormHollywood Medical Center Physician [facility]idential CenterComment on above:Result Comment: PERFORMED BY:[address] [place], [place] [phone] MEDICAL DIRECTORALTHEA JIMENEZ M.D.Performed By: #### SCAN CBC, CMP ####[address] [address] USAPlatelets (Bld) [#/Vol]254 10*3/uL Cujxiv054-613Ney [facility] Physician [facility] CenterComment on above:Performed By: #### SCAN CBC, CMP ####[place] [address] USARBC (Bld) [#/Vol]3.68 10*6/uLNormal3.60-5.00The [facility] Health Physician GroupComment on above:Performed By: #### SCAN CBC, CMP ####[place] [id number] USARBC morphology finding Nom (Bld)NormalNormalNormalThe [facility]arnett Health Physician GroupComment on above:Performed By: #### SCAN CBC, CMP ####[facility] [address] [place] [address] USAWBC (Bld) [#/Vol]5.7 10*3/uLNormal3.8-11.6The [facility] Physician [facility] CenterComment on above:Performed By: #### SCAN CBC, CMP ####[facility] [address] [place] [address] USAWhole blood hypersegmented neutrophils detection by light microscopyOrdered By: Kush Glez on 63-00-3063Stebogdflul.hypersegmented LM Ql (Bld)Whole blood hypersegmented neutrophils detection by light microscopyWhite HospitalNeutrophils.hypersegmented LM Ql (Bld)SlightWhite HospitalMain OR Intraoperative Recordon [id number] OR Intraoperative RecordMain OR Intraoperative Record IntraOp Document Type FT Summary Primary Physician: Roshan BRAUN MD Finalized Date/Time: 07/23/24 10:46:11 Pt. Name: ADELINA MIR./Sex: 1960 Female Med Rec #: [id number] Physician: Roshan BRAUN MD Financial #: [id number] Pt. Type: A Room/Bed: [place] [address] Admit/Disch: 07/22/24 05:34:52 - 07/22/24 11:05:00 Institution: [...] CST Role Performed Anesthesiologist Surgeon - Primary FABRIC FINISHER/SA Field Superintendent Time In 07/22/24 07:48:00 07/22/24 07:48:00 07/22/24 07:48:00 Time Out 07/22/24 08:53:00 07/22/24 08:53:00 07/22/24 08:53:00 Procedure INFUSAPORT INFUSAPORT INFUSAPORT INSERTION(Right) INSERTION(Right) INSERTION(Right) Comments DR ECHOLS SUPERVISING Last Modified By: Matthew RN, Josseline Castro RN, Josseline Castro RN, Josseline Pool 07/22/24 08:53:40 07/22/24 08:53:40 07/22/24 08:53:40 Entry 4 Entry 5 Entry 6 Case Attendee Matthew VILLALOBOS, Laura Peña Amy Role Performed Diesel Plant Operator - Primary Scrub - Primary Cutter Grind Tool Technician Time In 07/22/24 07:48:00 07/22/24 07:48:00 07/22/24 08:00:00 Time Out 07/22/24 08:39:00 07/22/24 08:53:00 07/22/24 08:36:00 Procedure INFUSAPORT INFUSAPORT INFUSAPORT INSERTION(Right) INSERTION(Right) INSERTION(Right) Comments PRECEPTOR Last Modified By: Matthew RN, Josseline Castro RN, Josseline Castro RN, Josseline Pool 07/22/24 08:53:40 07/22/24 08:53:40 07/22/24 08:53:40 Entry 7 Entry 8 Case Attendee Nilton Harrison StudentJah Role Performed Cutter Grind Tool Technician Diesel Plant Operator - Relief Time In 07/22/24 08:00:00 07/22/24 [...] Given Participants APARNA PRATT, Anna Orr CST, Wolf M, Matthew VILLALOBOS, Maryann Urbina Madison A, Josseline Naik Bomar Radiology Student, Jah Hansen Time Out [...] Outcomes Met? Yes BREAST Last Modified By: Josseline Castro RN 07/22/24 08:11:38 Post-Care Text: The patient is free from signs and symptoms of infection Skin Assessment (Pre Procedure) FT Pre-Care Text: Implements protective measures to prevent skin/ tissue injury due to thermal or mechanical sources Evaluates for signs and symptoms of physical injury to skin and tissue Entry 1 Skin Integrity Intact, [place], Warm, & Skin (more content not included)...Normal [facility] CenterCBC w/ Auto Diffon 72-63-2051Brwsmbppa/100 WBC (Bld) 0.4 %Normal0.0-2.0[facility] CenterComment on above:Performed By: #### [id number] #### [facility] [address] [place] [address]Saodsyqnq/Leukocytes Auto (Bld) [Pure # fraction]0.0 E9/LNormal 0.0-0.2FAshtabula General HospitalComment on above:Performed By: #### [id number] #### [facility] [address] [place] [address]Qipultphnpy (Bld) [#/Vol]0.5 E9/LNormal0.0-0.5FAshtabula General HospitalComment on above:Performed By: #### [id number] #### [facility] [address] [place] [address]Kenvxlyhjtw/100 WBC (Bld)5.1 %Normal0.0-8.0[facility] Medical CenterComment on above:Performed By: #### [id number] #### [facility] [address] [place] [address]Yypktwtlwot distribution width (RBC) [Ratio]14.4 %High10.9-14.2 [facility] CenterComment on above:Performed By: #### [id number] #### [facility] [address] [place] [address]Ylcgmypmru (Bld) [Volume fraction]35.6 %Mbzjwj13.0-46.0[facility] CenterComment on above:Performed By: #### [id number] #### [facility] [address] [place] [address]Acqtaiouqa (Bld) [Mass/Vol]12.4 g/oDLkuidb61.0-16.0[facility] CenterComment on above:Performed By: #### [id number] #### [facility] [address] [place] [address]Ftomlzpbfrf (Bld) [#/Vol]2.7 E9/LNormal1.0-4.0[facility] CenterComment on above:Performed By: #### [id number] #### [facility] [address] [place] [address]Wuiesvtgewg/100 WBC (Bld)26.4 %Oqphqo72.0-50.0[facility] CenterComment on above:Performed By: #### [id number] #### [facility] [address] [place] [address]HIW (RBC) [Entitic mass]33.0 meKbheky74.0-34.0[facility] CenterComment on above:Performed By: #### [id number] #### [facility] [address] [place] [address]PNQF (RBC) [Mass/Vol]34.7 g/rQRvihrr79.4-36.0[facility] CenterComment on above:Performed By: #### [id number] #### [facility] [address] [place] [address]FKS (RBC) [Entitic vol]95.0 zNCxnyua13.0-100.0[facility] CenterComment on above:Performed By: #### [id number] #### [facility] [address] [place] [address]Mcdazcqpd (Bld) [#/Vol]1.1 E9/LHigh0.2-1.0[facility] CenterComment on above:Performed By: #### [id number] #### [facility] [address] [place] [address]Grhtyjxllah (Bld) [#/Vol]5.8 E9/LNormal2.0-7.5FAshtabula General HospitalComment on above:Performed By: #### [id number] #### [facility] [address] [place] [address]Zaxienmjjne/100 WBC (Bld)57.0 %Ypuobv07.0-75.0[facility] CenterComment on above:Performed By: #### [id number] #### [facility] [address] [place], [place] [address]Cdfwgupo850.0 E9/AEolddd680.0-500.0[facility] Comment on above:Performed By: #### [id number] #### [facility] [address] [place], [place] [address]Chvrvziz mean volume (Bld) [Entitic vol]7.4 fLNormal6.4-10.8 [facility] CenterComment on above:Performed By: #### [id number] #### [facility] [address] [place] [address]LIO (Bld) [#/Vol]3.8 E12/LLow4.3-5.9[facility] Comment on above:Performed By: #### [id number] #### [facility] [address] [place] [address]IEV corrected for nucl RBC Auto (Bld) [#/Vol]10.2 E9/LNormal 4.0-11.0[facility] CenterComment on above:Performed By: #### [id number] #### [facility] [address] [place] [address]VFXINFAHNJlqxuat By: SYSTEM SYSTEM on 82-18-4267Xkvjqyq [Mass/Vol]3.8 g/dLNormal3.3 - 5.0 gm/dLRemisol ChemAlbumin/Globulin [Mass ratio] 1.7 {ratio}Normal1.1 - 2.2Remisol ChemALP [Catalytic activity/Vol]62 [iU]/d Jfuswo22 - 98 Int._Unit/LRemisol ChemALT No additional P-5'-P [Catalytic activity/Vol]9 [iU]/dNormal6 - 46 Int._Unit/LRemisol ChemAnion gap [Moles/Vol]12 mmol/LNormal6 - 16 mEq/LRemisol ChemAST [Catalytic activity/Vol]13 [iU]/dNormal 5 - 43 Int._Unit/LRemisol ChemBilirubin [Mass/Vol]0.4 mg/dLNormal0.0 - 1.1 mg/dL Remisol ChemCalcium [Mass/Vol]8.8 mg/dLLow8.9 - 11.1 mg/dLRemisol ChemChloride [Moles/Vol]100 mmol/XVog578 - 111 mmol/LRemisol ChemCO2 [Moles/Vol]27 mmol/L Jxxzvb40 - 31 mmol/LRemisol ChemCreatinine [Mass/Vol]1.3 mg/dLNormal0.5 - 1.3 mg/dLRemisol RjuhoRNF93 mL/min/1.73 m2Low>=59mL/min/1.73 j5Gqroyda ChemGlobulin (S) [Mass/Vol]2.3 g/dLNormal1.4 - 4.0 gm/dLRemisol ChemGlucose [Mass/Vol]105 mg/eUXdkozc66 - 199 mg/dLRemisol ChemPotassium [Moles/Vol]3.7 mmol/LNormal3.5 - 5.3 mmol/LRemisol ChemProtein [Mass/Vol]6.1 g/dLNormal6.0 - 7.8 gm/dLRemisol ChemSodium [Moles/Vol]135 mmol/EXmlszz949 - 145 mmol/LRemisol ChemUrea nitrogen [Mass/Vol]27 mg/dLHigh5 - 21 mg/dLRemisol ChemUrea nitrogen/Creatinine [Mass ratio]21 mg/czFajy77 - 20Remisol ChemCMPon 00-08-5418Hrtxfjn [Mass/Vol]3.8 g/dL Normal3.3-5.0[facility] CenterComment on above:Performed By: #### [id number] #### [facility] [address] [place], [place] [address]Idnbuqt/Globulin (S) [Mass conc ratio]1.9Hhitns7.1-2.2FAshtabula General HospitalComment on above:Performed By: #### [id number] #### [facility] [address] [place], [place] [address]CZS [Catalytic activity/Vol]62 Int._Unit/ILtorei68-76SgomphTrumbull Regional Medical CenterComment on above:Performed By: #### [id number] #### [facility] [address] [place], [place] [address]SKX No additional P-5'-P [Catalytic activity/Vol]9 Int._Unit/L Normal6-46[facility] Medical CenterComment on above:Performed By: #### [id number] #### [facility] [address] [place], [place] [address]Lybmn gap [Moles/Vol]12 mmol/LNormal6-16[facility] Medical CenterComment on above:Performed By: #### [id number] #### [facility] [address] [place] [address]HCS [Catalytic activity/Vol]13 Int._Unit/LNormal5-43[facility] Medical CenterComment on above:Performed By: #### [id number] #### [facility] [address] [place], [place] [address]Bdbuqoumk [Mass/Vol]0.4 mg/dLNormal0.0-1.1FAshtabula General HospitalComment on above:Performed By: #### [id number] #### [facility] [address] [place] [address]Csaseca [Mass/Vol]8.8 mg/dLLow8.9-11.1FAshtabula General HospitalComment on above:Performed By: #### [id number] #### [facility] Laboratory [address] [place], [place] [address]Iycgltvw [Moles/Vol]100 mmol/AFxu627-627OoekctTrumbull Regional Medical CenterComment on above:Performed By: #### [id number] #### [facility] Laboratory [address] [place] [address]YP4 [Moles/Vol]27 mmol/AAtuynt95-76QrwhpuTrumbull Regional Medical Center Comment on above:Performed By: #### [id number] #### [facility] Laboratory [address] [place] [address] 24[address]Nfbzvaczww [Mass/Vol]1.3 mg/dLNormal0.5-1.3FAshtabula General HospitalComment on above:Performed By: #### [id number] #### [facility] Laboratory [address] [place], [place] [address]Aocesykp (S) [Mass/Vol]2.3 g/dLNormal1.4-4.0[facility] Medical CenterComment on above:Performed By: #### [id number] #### [facility] Laboratory [address] [place], [place] [address]Rekzldi [Mass/Vol]105 mg/cMIhqxcu68-772MgypuyTrumbull Regional Medical CenterComment on above:Performed By: #### [id number] #### [facility] Laboratory [address] [place], [place] [address]Vhwpefwmr [Moles/Vol]3.7 mmol/LNormal3.5-5.3FAshtabula General HospitalComment on above:Performed By: #### [id number] #### [facility] Laboratory [address] [place], [place] [address]Jhylgsi [Mass/Vol]6.1 g/dLNormal6.0-7.8Tr[facility] Regional Medical CenterComment on above:Performed By: #### [id number] #### [facility] Laboratory [address] [place], [place] [address]Ycpyli [Moles/Vol]135 mmol/VWdwqum350-919JqwfbdTrumbull Regional Medical CenterComment on above:Performed By: #### [id number] #### [facility] Laboratory [address] [place], [place] [address]Zewk nitrogen [Mass/Vol]27 mg/dLHigh5-21Tr[facility]ull Regional Medical CenterComment on above:Performed By: #### [id number] #### [facility] Laboratory [address] [place], [place] [address]Fnoi nitrogen/Creatinine [Mass ratio]21 No FpcopBveg71-23NdukltTrumbull Regional Medical CenterComment on above:Performed By: #### [id number] #### [facility] Laboratory [address] [facility] [place], [place] [address]Csdgqueee Instructionson 95-49-8539Cyhqyqylp Instructions Discharge Instructions ADELINA MIR :1960 Visit [...] 7 to 10 days Where: Sarah Izaguirre, [address] [address]- Business (1) Medications What How Much When Why Instructions Next Dose New acetaminophen-oxycodone (Percocet 5 mg-325 mg oral tablet) 1 Tablets By Mouth Every 6 hours Acute postoperative pain take with food or milk not to exceed 4000 mg acetaminophen per day Pickup at [facility] Unchanged alprazolam [...] Pharmacy Information [facility]: [address], [place] [id number] [phone] Allergies Entex (Unknown) Skelaxin (Unknown) corticosteroids (Anaphylaxis) Devices Implanted/Removed This Visit Notice: You have devices implanted this visit that may not be MRI compatible. 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 The card has informationabout your [...] provider about how to (more content not included)...[facility] Health SystemComment on above:Result Comment: Electronically Signed By: Kane VILLALOBOS, Tamica Matamoros.br\Date and Time Signed: 07/22/24 09:37 ESTHEMATOLOGYOrdered By: SYSTEM SYSTEM on 07-22-2024 Basophils/100 WBC (Bld)0.4 %Normal0.0 - 2.0 %Remisol HemeBasophils/Leukocytes Auto (Bld) [Pure # fraction]0.0 E9/LNormal0.0 - 0.2 E9/LRemisol HemeEosinophils (Bld) [#/Vol]0.5 E9/LNormal0.0 - 0.5 E9/LRemisol HemeEosinophils/100 WBC (Bld) 5.1 %Normal0.0 - 8.0 %Remisol HemeErythrocyte distribution width (RBC) [Ratio] 14.4 %High10.9 - 14.2 %Remisol HemeHematocrit (Bld) [Volume fraction]35.6 % Arfkek10.0 - 46.0 %Remisol HemeHemoglobin (Bld) [Mass/Vol]12.4 g/eLScuuys98.0 - 16.0 gm/dLRemisol HemeLymphocytes (Bld) [#/Vol]2.7 E9/LNormal1.0 - 4.0 E9/L Remisol HemeLymphocytes/100 WBC (Bld)26.4 %Msrnsx56.0 - 50.0 %Remisol HemeMCH (RBC) [Entitic mass]33.0 hyLokqpo35.0 - 34.0 pgRemisol HemeMCHC (RBC) [Mass/Vol] 34.7 g/cAGpqfei58.4 - 36.0 gm/dLRemisol HemeMCV (RBC) [Entitic vol]95.0 fLNormal 80.0 - 100.0 fLRemisol HemeMonocytes (Bld) [#/Vol]1.1 E9/LHigh0.2 - 1.0 E9/L Remisol HemeMonocytes/100 WBC (Bld)11.1 %Normal4.0 - 14.0 %Remisol Heme Neutrophils (Bld) [#/Vol]5.8 E9/LNormal2.0 - 7.5 E9/LRemisol HemeNeutrophils/100 WBC (Bld)57.0 %Mrfhsk96.0 - 75.0 %Remisol NlnvDlkbnfkn859.0 E9/ZHtqeys546.0 - 500.0 E9/LRemisol HemePlatelet mean volume (Bld) [Entitic vol]7.4 fLNormal6.4 - 10.8 fLRemisol HemeRBC (Bld) [#/Vol]3.8 E12/LLow4.3 - 5.9 E12/LRemisol HemeWBC corrected for nucl RBC Auto (Bld) [#/Vol]10.2 E9/LNormal4.0 - 11.0 E9/LRemisol HemeInpatient Patient Summaryon 63-65-5257Qnxyxjuyf Patient SummaryInpatient Patient Summary [place] [id number] [facility] Clinical Discharge Instructions PERSON INFORMATION Name: ADELINA MIR PHYSICIANS Admitting Physician: Roshan BRAUN MD Attending Physician: Roshan BRAUN MD PCP: Michael Holley MD Discharge Diagnosis: Poor venous access Comment: PATIENT EDUCATION INFORMATION Instructions: Medication Leaflets: Follow up: With: Address: When: Roshan BRAUN [address] [place] [address], [address], [place] [id number] Business (1) Within 7 to 10 days Type Location Start Finish [facility] 08/06/2024 1:15 PM 08/06/2024 1:30 PM Confirmed FM Medicare Wellness [facility] 06/16/2025 1:00 PM 06/16/2025 2:00 PM Confirmed MEDICATION LIST [facility], [address] [facility] [place], [place] [id number], [phone] acetaminophen-oxycodone (Percocet 5 mg-325 mg oral tablet) [...] Medication) balance of nature-3 tabs a day. Comment:[facility] SystemMain OR PACU I Recordon 44-52-3111Uzvi OR PACU I RecordMain OR PACU I Record PACU Phase I Document Type FT Summary Primary Physician: Roshan BRAUN MD Finalized Date/Time: 07/22/24 09:41:35 Pt. Name: ADELINA MIR/Sex: 1960 Female Med Rec #: [id number] Physician: Roshan BRAUN MD Financial #: [id number] Pt. Type: A Room/Bed: [facility]11/02 Admit/Disch: 07/22/24 05:34:52 - Institution: Case Times [...] Signatures Signed By: Annabella Luna RN 07/22/24 09:41[facility] SystemMain OR PACU II Recordon 72-26-0650Ylbr OR PACU II RecordMain OR PACU II Record PACU Phase II Document Type FT Summary Primary Physician: Roshan BRAUN MD Finalized Date/Time: 07/22/24 11:07:12 Pt. Name: ADELINA MIR Yrn De La OB./Sex: 1960 Female Med Rec #: [id number] Physician: Roshan BRAUN MD Financial #: [id number] Pt. Type: A Room/Bed: [place] [address] Admit/Disch: 07/22/24 05:34:52 - Institution: Case Times [...] II Outcomes Met? Yes Last Modified By: Kane VILLALOBOS, Tamica Horn 07/22/24 11:07:10 Post-Care Text: The patient demonstrates [...] Signatures Signed By: Tamica Middleton RN 07/22/24 11:07[facility] SystemMain OR Preoperative Recordon 07-09-8469Lvem OR Preoperative RecordMain OR Preoperative Record PreOp Document Type FT Summary Primary Physician: Roshan BRAUN MD Finalized Date/Time: 07/22/24 08:26:54 Pt. Name: ADELINA MIR Yrn Lyons/Sex: 1960 Female Med Rec #: [id number] Physician: Roshan BRAUN MD Financial #: [id number] Pt. Type: A Room/Bed: [place] [address] Admit/Disch: 07/22/24 05:34:52 - Institution: Case Times [...] Signatures Signed By: Josseline Castro RN 07/22/24 08:26[facility] SystemOperative Report on 28-28-1704Lsvsziimq ReportOperative Report SURGERY DATE: 07/22/2024 PREOPERATIVE DIAGNOSIS: Breast cancer, poor venous access POSTOPERATIVE DIAGNOSIS: Breast cancer, poor venous access OPERATION: Right external jugular Afinxd-B-Yqvl insertion ANESTHESIA: General with laryngeal mask airway [...] time of this dictation. Roshan Braun M.D. [facility] Dictated: 07/22/2024 [id number] Transcribed: 07/22/2024 cc:Michael Holley M.D.[facility]ita Health SystemComment on above:Result Comment: Electronically Signed By: APARNA PRATT, Roshan Horner\.br\Date and Time Signed: 07/22/24 15:18 ESTOutpatient Surgery Discharge Instructionon 07-22-2024 Outpatient Surgery Discharge InstructionOutpatient Surgery Discharge Instruction [place] [id number] Patient Discharge Instructions PERSON INFORMATION Name: ADELINA [...] Date Follow up: With: Address: When: Roshan Smith Sidney Izaguirre, [address], [facility] [address] [place] [address] Business (1) Within 7 to 10 days Type Location Start Finish State FM Open [facility] [place] 08/06/2024 1:15 PM 08/06/2024 1:30 PM Confirmed FM Medicare Wellness Subsequent [facility] [place] 06/16/2025 1:00 PM 06/16/2025 2:00 PM Confirmed [...] to serve you. Thank you for choosing [facility] HERE ARE THE MEDICATION CHANGES THAT OCCURRED DURING YOUR HOSPITAL STAY [facility], [address] [facility] [place] [place], [place] [id number], [phone] acetaminophen-oxycodone (Percocet 5 mg-325 mg oral tablet) [...] a day. PATIENT EDUCATION INFORMATION Instructions: Medication Leaflets:[facility] SystemXR Chest Single Viewon 34-85-5576HS Chest Single ViewExam Date/Time: 07/22/2024 09:11 EST [...] Ka,r in mGy = na DAP = naNormalTrumbull Regional Medical CentereGFRon 58-73-4033kLCT67 mL/min/1.73 m2 Low>=59Tr[facility]ull Regional Medical CenterComment on above:Performed By: #### [id number] ####[facility] [address] [place], [place] [address]GWUyw 87-88-5145Aegaq gap [Moles/Vol]12 mmol/LNormal6-16[facility] Comment on above:Performed By: #### [id number] #### [facility] Laboratory [address] [place], [place] [address]Emtpmax [Mass/Vol]8.9 mg/dLNormal8.9-11.1FAshtabula General HospitalComment on above:Performed By: #### [id number] #### [facility] Laboratory [address] [place], [place] [address]Qwfvcshd [Moles/Vol]101 mmol/BOwjxir927-394JlqdeaTrumbull Regional Medical CenterComment on above:Performed By: #### [id number] #### [facility] Laboratory [address] [place], [place] [address]ED4 [Moles/Vol]27 mmol/DAkashz16-10HyocitTrumbull Regional Medical Center Comment on above:Performed By: #### [id number] #### [facility] Laboratory [address] [place], [place] [address]Yidqtwuote [Mass/Vol]0.8 mg/dLNormal0.5-1.3FAshtabula General HospitalComment on above:Performed By: #### [id number] #### [facility] Laboratory [address] [place], [place] [address]Kpmrovf [Mass/Vol]87 mg/pXXdnshe92-678RdxdykTrumbull Regional Medical CenterComment on above:Performed By: #### [id number] #### [facility] Laboratory [address] [place], [place] [address]Clmfxbxkm [Moles/Vol]3.7 mmol/LNormal3.5-5.3FAshtabula General HospitalComment on above:Performed By: #### [id number] #### [facility] Laboratory [address] [place], [place] [address]Mgzycg [Moles/Vol]136 mmol/OSgkheo716-219KbxmbvTrumbull Regional Medical CenterComment on above:Performed By: #### [id number] #### [facility] Laboratory [address] [place], [place] [address]Ybin nitrogen [Mass/Vol]17 mg/dLNormal5-21Tr[facility] Regional Medical CenterComment on above:Performed By: #### [id number] #### [facility] Laboratory [address] [place], [place] [address]Qaai nitrogen/Creatinine [Mass ratio]21 No NmunlRjcb46-63RkkxmdTrumbull Regional Medical CenterComment on above:Performed By: #### [id number] #### [facility] Laboratory [address] [place] [address]HAN w/ Auto Diffon 56-96-1295Ezodfexwf/100 WBC (Bld)0.5 %Normal 0.0-2.0[facility] Medical CenterComment on above:Performed By: #### [id number] #### [facility] Laboratory [address] [place], [place] [address]Szvfmosgu/Leukocytes Auto (Bld) [Pure # fraction]0.0 E9/LNormal 0.0-0.2FAshtabula General HospitalComment on above:Performed By: #### [id number] #### [facility] Laboratory [address] [place] [address]Ikjlglxwqcz (Bld) [#/Vol]0.3 E9/LNormal0.0-0.5FAshtabula General HospitalComment on above:Performed By: #### [id number] #### [facility] Laboratory [address] [place] [address]Bjqxhswszwe/100 WBC (Bld)3.9 %Normal0.0-8.0[facility] Regional Medical CenterComment on above:Performed By: #### [id number] #### [facility] Laboratory [address] [place] [address]Wcurzbdrgej distribution width (RBC) [Ratio]14.3 %High10.9-14.2 [facility] Medical CenterComment on above:Performed By: #### [id number] #### [facility] Laboratory [address] [place], [place] [address]Pzhmgbuuls (Bld) [Volume fraction]37.6 %Uitelk03.0-46.0Tr[facility] Regional Medical CenterComment on above:Performed By: #### [id number] #### [facility] Laboratory [address] [place], [place] [address]Kwxbimepyz (Bld) [Mass/Vol]13.0 g/fSGxpazb25.0-16.0Tr[facility] Medical CenterComment on above:Performed By: #### [id number] #### [facility] Laboratory [address] [place] [address]Kwmwjubbwcn (Bld) [#/Vol]2.7 E9/LNormal1.0-4.0[facility] Regional Medical CenterComment on above:Performed By: #### [id number] #### [facility] Laboratory [address] [place] [address]Homijgpvzlb/100 WBC (Bld)34.8 %Vvgktc00.0-50.0[facility] Medical CenterComment on above:Performed By: #### [id number] #### [facility] Laboratory [address] [place] [address]GEP (RBC) [Entitic mass]33.2 doMmxlet21.0-34.0[facility] Medical CenterComment on above:Performed By: #### [id number] #### [facility] Laboratory [address] [place] [address]BWXO (RBC) [Mass/Vol]34.6 g/eJTnriig96.4-36.0[facility] Medical CenterComment on above:Performed By: #### [id number] #### [facility] Laboratory [address] [place] [address]OKV (RBC) [Entitic vol]95.9 eAGasolo74.0-100.0[facility] Medical CenterComment on above:Performed By: #### [id number] #### [facility] Laboratory [address] [place] [address]Hyzfeyjtd (Bld) [#/Vol]0.6 E9/LNormal0.2-1.0[facility] Medical CenterComment on above:Performed By: #### [id number] #### [facility] Laboratory [address] [place] [address]Aaefzfelwiw (Bld) [#/Vol]4.2 E9/LNormal2.0-7.5FAshtabula General HospitalComment on above:Performed By: #### [id number] #### [facility] Laboratory [address] [place], [place] [address]Aefhxkywmxp/100 WBC (Bld)53.0 %Bylnqr39.0-75.0Tr[facility] Regional Medical CenterComment on above:Performed By: #### [id number] #### [facility] Laboratory [address] [place], [place] [address]Exudxesm mean volume (Bld) [Entitic vol]8.1 fLNormal6.4-10.8 [facility] Medical CenterComment on above:Performed By: #### [id number] #### [facility] Laboratory [address] [place] [address]Zlubhmrlr (Bld) [#/Vol]284.0 E9/TLiikxn465.0-500.0Tr[facility] Medical CenterComment on above:Performed By: #### [id number] #### [facility] Laboratory [address] [place] [address]XLW (Bld) [#/Vol]3.9 E12/LLow4.3-5.9[facility] Comment on above:Performed By: #### [id number] #### [facility] Laboratory [address] [place] [address]JDR corrected for nucl RBC Auto (Bld) [#/Vol]7.9 E9/LNormal 4.0-11.0Tr[facility] Medical CenterComment on above:Performed By: #### [id number] #### [facility] Laboratory [address] [place] [address]ZQLASFOPULteixri By: SYSTEM SYSTEM on 64-82-9560Lzdxa gap [Moles/Vol]12 mmol/LNormal6 - 16 mEq/LRemisol ChemCalcium [Mass/Vol]8.9 mg/dL Normal8.9 - 11.1 mg/dLRemisol ChemChloride [Moles/Vol]101 mmol/IJpcnpf006 - 111 mmol/LRemisol ChemCO2 [Moles/Vol]27 mmol/GZpjumc63 - 31 mmol/LRemisol Chem Creatinine [Mass/Vol]0.8 mg/dLNormal0.5 - 1.3 mg/dLRemisol XbfhfQIQ28 mL/min/1.73 o6Lncvqk>=59mL/min/1.73 l9Dkurlbj ChemGlucose [Mass/Vol]87 mg/dL Smlsnq35 - 199 mg/dLRemisol ChemPotassium [Moles/Vol]3.7 mmol/LNormal3.5 - 5.3 mmol/LRemisol ChemSodium [Moles/Vol]136 mmol/SStoobr991 - 145 mmol/LRemisol Chem Urea nitrogen [Mass/Vol]17 mg/dLNormal5 - 21 mg/dLRemisol ChemUrea nitrogen/Creatinine [Mass ratio]21 mg/kkRtmq48 - 20Remisol ChemHEMATOLOGYOrdered By: SYSTEM SYSTEM on 39-88-3250Gmzogvbgq/100 WBC (Bld)0.5 %Normal0.0 - 2.0 % Remisol HemeBasophils/Leukocytes Auto (Bld) [Pure # fraction]0.0 E9/LNormal0.0 - 0.2 E9/LRemisol HemeEosinophils (Bld) [#/Vol]0.3 E9/LNormal0.0 - 0.5 E9/LRemisol HemeEosinophils/100 WBC (Bld)3.9 %Normal0.0 - 8.0 %Remisol HemeErythrocyte distribution width (RBC) [Ratio]14.3 %High10.9 - 14.2 %Remisol HemeHematocrit (Bld) [Volume fraction]37.6 %Bjyunb81.0 - 46.0 %Remisol HemeHemoglobin (Bld) [Mass/Vol]13.0 g/gBWvzyxw26.0 - 16.0 gm/dLRemisol HemeLymphocytes (Bld) [#/Vol] 2.7 E9/LNormal1.0 - 4.0 E9/LRemisol HemeLymphocytes/100 WBC (Bld)34.8 %Normal 14.0 - 50.0 %Remisol HemeMCH (RBC) [Entitic mass]33.2 euCqedwo97.0 - 34.0 pg Remisol HemeMCHC (RBC) [Mass/Vol]34.6 g/xIRvrkbg29.4 - 36.0 gm/dLRemisol HemeMCV (RBC) [Entitic vol]95.9 lGDslwvm32.0 - 100.0 fLRemisol HemeMonocytes (Bld) [#/Vol]0.6 E9/LNormal0.2 - 1.0 E9/LRemisol HemeMonocytes/100 WBC (Bld)7.8 % Normal4.0 - 14.0 %Remisol HemeNeutrophils (Bld) [#/Vol]4.2 E9/LNormal2.0 - 7.5 E9/LRemisol HemeNeutrophils/100 WBC (Bld)53.0 %Xdbjqy96.0 - 75.0 %Remisol Heme Platelet mean volume (Bld) [Entitic vol]8.1 fLNormal6.4 - 10.8 fLRemisol Heme Platelets (Bld) [#/Vol]284.0 E9/ATdbjqm850.0 - 500.0 E9/LRemisol HemeRBC (Bld) [#/Vol]3.9 E12/LLow4.3 - 5.9 E12/LRemisol HemeWBC corrected for nucl RBC Auto (Bld) [#/Vol]7.9 E9/LNormal4.0 - 11.0 E9/LRemisol HemeeGFRon 40-60-2893jOZG32 mL/min/1.73 a7Blfafc>=59Tr[facility] Medical CenterComment on above:Performed By: #### [id number] ####[facility] [address] [place], [place] [address]Xlhamejyni Visit Summaryon 85-20-5454Caytraexdh Visit SummaryAmbulatory Visit Summary ADELINA MIR :1960 Visit Date:07/02/2024 Ambulatory Visit Instructions Your Diagnosis Breast cancer of lower-inner quadrant of left female breast Poor venous access Infected breast tissue 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 Surgical Services Monday 8:00 AM EST With: Where: 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 [facility] Diffon 07-02-2024 Basophils/100 WBC (Bld)0.8 %Normal0.0-2.0[facility] Medical CenterComment on above:Performed By: #### [id number] #### [facility] Laboratory [address] [place], [place] [address]Mzzaidzid/Leukocytes Auto (Bld) [Pure # fraction]0.1 E9/LNormal 0.0-0.2FAshtabula General HospitalComment on above:Performed By: #### [id number] #### [facility] Laboratory [address] [place], [place] [address]Wnidyfnpzcl (Bld) [#/Vol]0.5 E9/LNormal0.0-0.5FAshtabula General HospitalComment on above:Performed By: #### [id number] #### [facility] Laboratory [address] [place] [address]Fvbiqjbkjhl/100 WBC (Bld)6.2 %Normal0.0-8.0[facility] Medical CenterComment on above:Performed By: #### [id number] #### [facility] Laboratory [address] [place] [address]Etivswidabw distribution width (RBC) [Ratio]14.2 %Normal 10.9-14.2FAshtabula General HospitalComment on above:Performed By: #### [id number] #### [facility] Laboratory [address] [place] [address]Kcuncsalmd (Bld) [Volume fraction]38.4 %Fhavxo01.0-46.0[facility] Medical CenterComment on above:Performed By: #### [id number] #### [facility] Laboratory [address] [place] [address]Wpefwmpwii (Bld) [Mass/Vol]13.2 g/sBQzjqzg96.0-16.0[facility] Medical CenterComment on above:Performed By: #### [id number] #### [facility] Laboratory [address] [place] [address]Ocjdlvdpvon (Bld) [#/Vol]2.8 E9/LNormal1.0-4.0[facility] Medical CenterComment on above:Performed By: #### [id number] #### [facility] Laboratory [address] [place] [address]Ttcwczbzfsu/100 WBC (Bld)32.4 %Phtpsh43.0-50.0[facility] Medical CenterComment on above:Performed By: #### [id number] #### [facility] Laboratory [address] [place] [address]FDS (RBC) [Entitic mass]33.2 ehLcywlp66.0-34.0[facility] Medical CenterComment on above:Performed By: #### [id number] #### [facility] Laboratory [address] [place] [address]VPDR (RBC) [Mass/Vol]34.4 g/nHXqlfou53.4-36.0[facility] CenterComment on above:Performed By: #### [id number] #### [facility] Laboratory [address] [place] [address]VSZ (RBC) [Entitic vol]96.7 vTCfbnld60.0-100.0[facility] CenterComment on above:Performed By: #### [id number] #### [facility] Laboratory [address] [place] [address]Wsqrjnjnf (Bld) [#/Vol]0.7 E9/LNormal0.2-1.0[facility] Medical CenterComment on above:Performed By: #### [id number] #### [facility] Laboratory [address] [place] [address]Hriosdoauyf (Bld) [#/Vol]4.5 E9/LNormal2.0-7.5FAshtabula General HospitalComment on above:Performed By: #### [id number] #### [facility] Laboratory [address] [place] [address]Euxzrdocwru/100 WBC (Bld)52.3 %Fijoax56.0-75.0[facility] Medical CenterComment on above:Performed By: #### [id number] #### [facility] Laboratory [address] [place] [address]Fuoulxmx mean volume (Bld) [Entitic vol]8.1 fLNormal6.4-10.8 [facility] CenterComment on above:Performed By: #### [id number] #### [facility] Laboratory [address] [place] [address]Yurmzxaqx (Bld) [#/Vol]314.0 E9/UZyascj424.0-500.0[facility] Medical CenterComment on above:Performed By: #### [id number] #### [facility] Laboratory [address] [place], [place] [address]XTE (Bld) [#/Vol]4.0 E12/LLow4.3-5.9[facility] Comment on above:Performed By: #### [id number] #### [facility] Laboratory [address] [place], [place] [address]PEY corrected for nucl RBC Auto (Bld) [#/Vol]8.5 E9/LNormal 4.0-11.0[facility] Medical CenterComment on above:Performed By: #### [id number] #### [facility] Laboratory [address] [place], [place] [address]OAQXCNAIVBisiana By: SYSTEM SYSTEM on 81-38-6662Clzyerjuh [Moles/Vol]4.0 mmol/LNormal3.5 - 5.3 mmol/LRemisol ChemHEMATOLOGYOrdered By: SYSTEM SYSTEM on 35-35-8310Gulqhgolx/100 WBC (Bld)0.8 %Normal0.0 - 2.0 %Remisol HemeBasophils/Leukocytes Auto (Bld) [Pure # fraction]0.1 E9/LNormal0.0 - 0.2 E9/LRemisol HemeEosinophils (Bld) [#/Vol]0.5 E9/LNormal0.0 - 0.5 E9/LRemisol HemeEosinophils/100 WBC (Bld)6.2 %Normal0.0 - 8.0 %Remisol HemeErythrocyte distribution width (RBC) [Ratio]14.2 %Rpsudd99.9 - 14.2 %Remisol HemeHematocrit (Bld) [Volume fraction]38.4 %Hvebje63.0 - 46.0 %Remisol HemeHemoglobin (Bld) [Mass/Vol]13.2 g/sNNuxdlx95.0 - 16.0 gm/dLRemisol HemeLymphocytes (Bld) [#/Vol] 2.8 E9/LNormal1.0 - 4.0 E9/LRemisol HemeLymphocytes/100 WBC (Bld)32.4 %Normal 14.0 - 50.0 %Remisol HemeMCH (RBC) [Entitic mass]33.2 ioXkumnj36.0 - 34.0 pg Remisol HemeMCHC (RBC) [Mass/Vol]34.4 g/bZZjrndg71.4 - 36.0 gm/dLRemisol HemeMCV (RBC) [Entitic vol]96.7 zAFzdmrj86.0 - 100.0 fLRemisol HemeMonocytes (Bld) [#/Vol]0.7 E9/LNormal0.2 - 1.0 E9/LRemisol HemeMonocytes/100 WBC (Bld)8.3 % Normal4.0 - 14.0 %Remisol HemeNeutrophils (Bld) [#/Vol]4.5 E9/LNormal2.0 - 7.5 E9/LRemisol HemeNeutrophils/100 WBC (Bld)52.3 %Mtamoc90.0 - 75.0 %Remisol Heme Platelet mean volume (Bld) [Entitic vol]8.1 fLNormal6.4 - 10.8 fLRemisol Heme Platelets (Bld) [#/Vol]314.0 E9/EGwrilk889.0 - 500.0 E9/LRemisol HemeRBC (Bld) [#/Vol]4.0 E12/LLow4.3 - 5.9 E12/LRemisol HemeWBC corrected for nucl RBC Auto (Bld) [#/Vol]8.5 E9/LNormal4.0 - 11.0 E9/LRemisol HemePotassiumon 07-02-2024 Potassium [Moles/Vol]4.0 mmol/LNormal3.5-5.3Fisher [facility] Maryland Hospital CenterComment on above:Performed By: #### [id number] #### [facility] Laboratory [address] [place], [place] [address]Wpkrycdxpb Visit Summaryon 79-91-1915Jdtcxzosfk Visit Summary Ambulatory Visit Summary ADELINA MIR [...] Follow-Up Appointments Monday 1:15 PM EST With: Michael Holley MD Where: [address] [address]- Monday 1:00 PM EDT With: Where: [address] [address]- Medications What How Much When Instructions Unchanged [...] your chemotherapy medicine will (more content not included)...[facility] Medicine Office/Clinic Noteon 80-62-4146Ovaijs Medicine Office/Clinic NoteFamurphy [facility]/Clinic Note Chief Complaint Initial Medicare [...] Precautions for MERS/COVID-19 : N/A Bre Guan - 06/11/2024 14:31 EDT Medicare/Medicaid Summary Chief Complaint [...] Rating Pain Score : 4 Bre Guan 06/11/2024 14:31 EDT Patient Preferred Method of Communication No Preference Hearing and Vision Screening FT FT Whisper Test Comments : no hearing deficits Vision Screen Comments : wears eye lens. [employer] yearly Bre Guan 06/11/2024 14:31 EDT Advance Directive FT Advance Directive : No Patient Wishes to Receive Further Information on Advance Directives : Yes Organ Donation Consent : Yes Bre Guan 06/11/2024 14:31 EDT Procedures / Surgeries FT - Procedure History (As Of: 06/11/2024 14:49:55 EDT) Anesthesia Minutes: 0 ; Procedure Name: [facility] - Total abdominal hysterectomy and bilateral salpingo-oophorectomy ; Procedure Minutes: 0 ; Last Reviewed Dt/Tm: 06/11/2024 14:36:11 EDT Procedure Dt/Tm: 06/04/1995 ; Anesthesia Minutes: 0 ; Procedure Name: Arthroscopy of knee ; Procedure Minutes: 0 ; Last Reviewed Dt/Tm: 06/11/2024 14:36:11 EDT Anesthesia Minutes: 0 ; Procedure Name: Foot ; Procedure Minutes: 0 ; Comments: 11/08/2022 15:03 JEAN PAUL Pacheco MA, Terra Robles 15 Foot surgeries total per patient no [...] 02/27/2024 15:04 EDT - Melissa JACQUES, Amaris cormier ; Last Reviewed Dt/Tm: 06/11/2024 14:36:11 EDT Procedure Dt/Tm: 05/16/2024 ; Anesthesia Minutes: 0 ; Procedure Name: Left breast Mastectomy with Reconstruction ; Procedure Minutes: 0 ; Comments: 05/16/2024 14:21 EDT - Naa VILLALOBOS, Alee Mckeon Placement oftissue director of corporate sponsorships and acellular dermis, and [place] node biopsy Dr Braun and Dr Bustamante [...] Use:. Never Smokeless Tobac (more content not included)...[facility]ita Health SystemComment on above: Result Comment: Electronically Signed By: Michael Holley MD\.br\Date and Time Signed: 06/19/24 09:05 EDT\.br\Electronically Co-Signed By: Bre Guan\.br\Date and Time Co-Signed: 06/11/24 15:21 EDTCT chest w mary jo [id number] [facility] Physician GroupFami Medicine Office/Clinic Note on 76-30-7313Mfhcod Medicine Office/Clinic NoteFamily Medicine Office/Clinic Note HPI [...] - Not Given Patient Refuses SARS-CoV-2 mRNA (tonelsonn 5y-11y) vac - Not Given Postpone due to refusal [facility] Health SystemComment on above:Result Comment: Electronically Signed By: Kishan PRATT, Michael Sureshbr\Date and Time Signed: 10/08/24 15:18 EDT Amphetamine Screen Ql (U)Ordered By: Corona Krishna on 98-72-2227Uzkpcpzgtnix Ql (U)NegativeNegativeWhite HospitalAnisocytosis [Presence] in Blood by Light microscopyOrdered By: Corona Krishna on 94-20-4210Hmmxqvjulfzp Ql (Bld)SlightNormalWhite HospitalComment on above:Performed By: #### SCAN CBC, BMP ####[place] [address] USAAutomated basophil %Ordered By: Corona Krishna on 08-76-3723Akoxlsyfe/100 WBC (Bld)0.3 %Normal.[facility] Comment on above:Performed By: #### SCAN CBC, BMP ####[place] [address] USAAutomated basophil countOrdered By: Corona Krishna on 91-27-2847Grrqhpavd (Bld) [#/Vol]0.0 10*3/uLNormal0.0-0.2 White HospitalComment on above:Performed By: #### SCAN CBC, BMP ####[address] Automated blood monocyte countOrdered By: Corona Krishna on 74-19-2203Wxlpdepky (Bld) [#/Vol]1.0 10*3/uLHigh0.0-0.8White HospitalComment on above:Performed By: #### SCAN CBC, BMP ####[place] [address] USAAutomated eosinophil %Ordered By: Corona Krishna on 16-72-5148Uprptbwppbz/100 WBC (Bld)10.6 %Normal.White HospitalComment on above:Performed By: #### SCAN CBC, BMP ####[place] [address] USAAutomated eosinophil countOrdered By: Corona Krishna on 41-41-1764Niyrgipqhqg (Bld) [#/Vol]1.8 10*3/uLHigh0.0-0.45White HospitalComment on above:Performed By: #### SCAN CBC, BMP ####[address] [address] USAAutomated monocyte %Ordered By: Corona Krishna on 14-62-9345Bcwlplwrc/100 WBC (Bld)5.9 %Normal.[facility] Comment on above:Performed By: #### SCAN CBC, BMP ####[place] [id number] USAAutomated neutrophil %Ordered By: Corona Krishna on 49-97-0697Nttkusaggvs/100 WBC (Bld)65.7 %Normal.White HospitalComment on above:Performed By: #### SCAN CBC, BMP ####[place] [address] [place] [id number] [facility] [[email or web address]] Barbiturates [Presence] in Urine by Screen methodOrdered By: Corona Krishna on 48-34-4039Nlnfuqbduwdj Screen Ql (U)NegativeNegSumma HealthBasic Metabolic Panelon 20-41-9796Uhnvihjrvm Clr Calc Cfywsokn27.32Normal The [facility] Health Physician GroupComment on above:Result Comment: PERFORMED BY:[address] [place], [place] [phone] MEDICAL DIRECTORRADHA BONILLA M.D.Performed By: #### SCAN CBC, BMP ####[address] [address] [facility] [[email or web address]] GFR/1.73 sq M.predicted MDRD (S/P/Bld) [Vol rate/Area]53.862 mL/min/{1.73_m2} NormalThe Cape Fear/Harnett Health Physician GroupComment on above:Performed By: #### SCAN CBC, BMP ####[place] [id number] [facility] [[email or web address]] Benzodiazepines Screen Ql (U)Ordered By: Corona Krishna on 06-05-2024 Benzodiazepines Ql (U)PositiveHighNegSumma Health Benzoylecgonine [Presence] in Urine by Screen methodOrdered By: Corona Krishna on 56-25-5647Yjdswujmoydruuo Screen Ql (U)NegativeNegSumma HealthCalcium [Mass/volume] in Serum or PlasmaOrdered By: Corona Tomi on 15-90-4162Jpcwbdj [Mass/Vol]9.0 mg/dLNormal8.6-10.3FThe Bellevue HospitalComment on above:Performed By: #### SCAN CBC, BMP ####[place] [address] [place] [address] USACannabinoids [Presence] in Urine by Screen methodOrdered By: Corona Krishna on 06-05-2024 Cannabinoids Screen Ql (U)PositiveHighNegSumma Health Comment on above:These are unconfirmed results and should not be used for legal purposes. Drug Cut-Off Concentration: AMPH 1000 ng/mL LUIS FERNANDO 200 ng/mL JAIME 200 ng/mL COCM 300 ng/mL OP 300 ng/mL PCP 25 ng/mL THC 20 ng/mLCarbon dioxide, total [Moles/volume] in Serum or PlasmaOrdered By: Corona Krishna on 96-36-4680SC3 [Moles/Vol]24.9 mmol/MPrrkcz25.0-31.0White HospitalComment on above:Performed By: #### SCAN CBC, BMP ####[address] [address] USAChloride [Moles/volume] in Serum or Plasma Ordered By: Corona Krishna on 86-85-3571Reqokhnw [Moles/Vol]101 mmol/LNormal 98-107White HospitalComment on above:Performed By: #### SCAN CBC, BMP ####[address] [address] USACreatinine [Mass/volume] in Serum or PlasmaOrdered By: Corona Krishna on 22-29-7309Wvfcffzlpa [Mass/Vol]1.15 mg/dLNormal0.60-1.20White HospitalComment on above:Performed By: #### SCAN CBC, BMP ####[facility] [place] [address] USADrug Screen,Urineon 93-42-3058Rzddeduoozp Screen,UrineNegativeNormalNegativeThe [facility] Physician [facility] Residential CenterComment on above:Performed By: #### URDS ####[address] [address] USABarbiturate Screen,UrineNegativeNormal NegativeThe Select Specialty Hospital - ErieComment on above:Performed By: #### URDS ####[address] [address] [place] Benzodiazepines Screen,UrinePositiveHighNegativeThe [facility] Group Comment on above:Performed By: #### URDS ####[address] [address] USACannabinoid Screen,UrinePositiveHighNegative The [facility] Physician [facility] Residential CenterComment on above:Result Comment: These are unconfirmed results and should not be used for legal purposes. Drug Cut-Off Concentration: AMPH 1000 ng/mL LUIS FERNANDO 200 ng/mL JAIME 200 ng/mL COCM 300 ng/mL OP 300 ng/mL PCP 25 ng/mL THC 20 ng/mLPERFORMED BY:[address] MATSumiLucilaMITCHELL, [place] [phone] MEDICAL DIRECTORRADHA BONILLA M.D.Performed By: #### URDS ####[address] [address] USACocaine Screen,UrineNegativeNormal NegativeBrentwood Behavioral Healthcare Of MississippiComment on above:Performed By: #### URDS ####[address] [address] USAOpiate Screen,UrineNegativeNormalNegativeThe Select Special[facility] Hospital - ErieComment on above: Performed By: #### URDS ####[address] [address] USAPhencyclidine Screen,UrineNegativeNormalNegativeThe [facility] Special[facility] Hospital - ErieComment on above:Performed By: #### URDS ####[address] [address] USAECG 12 lead ECGon 43-82-0568ETD 12 lead ECGNormalThe Select Specialty Hospital - ErieErythrocyte distribution width [Ratio] by Automated countOrdered By: Corona Krishna on 04-86-5098Xsjwtwfammx distribution width (RBC) [Ratio]14.5 %Tjvgms27.9-15.3 White HospitalComment on above:Performed By: #### SCAN CBC, BMP ####[place] [address] [place] [address] [place] Erythrocytes [#/volume] in Blood by Automated countOrdered By: Corona Krishna on 94-11-4545SFD (Bld) [#/Vol]3.77 10*6/uLNormal3.60-5.00White HospitalComment on above:Performed By: #### SCAN CBC, BMP ####[place] [address] [place] [address] USAGlucose [Mass/volume] in Serum or PlasmaOrdered By: Corona Krishna on 06-84-5809Tmnvcgh [Mass/Vol]96 mg/gQTxzzfc43-492EootvcaupWhite HospitalComment on above:ADA recommended reference rangeRandom Glucose Reference [...] reference rangePerformed By: #### SCAN CBC, BMP ####[place] [address] USAHematocrit [Volume Fraction] of Blood by Automated countOrdered By: Corona Krishna on 77-14-2521Diksnsgwtw (Bld) [Volume fraction]36.3 %Normal 34.0-46.4FThe Bellevue HospitalComment on above:Performed By: #### SCAN CBC, BMP ####[address] [address] USAHemoglobin [Mass/volume] in BloodOrdered By: Corona Krishna on 85-29-7111Lwicmclkfu (Bld) [Mass/Vol]12.3 g/sFMzploo12.8-15.4FThe Bellevue HospitalComment on above:Performed By: #### SCAN CBC, BMP ####[address] [address] USALeukocytes [#/volume] corrected for nucleated erythrocytes in Blood by Automated counOrdered By: Corona Krishna on 82-28-2562THT corrected for nucl RBC Auto (Bld) [#/Vol]16.7 10*3/uLHigh3.8-11.6FThe Bellevue HospitalLeukocytes [#/volume] in Blood by Automated countOrdered By: Corona Krishna on 82-04-6592JVE (Bld) [#/Vol]16.7 10*3/uLHigh3.8-11.6FThe Bellevue HospitalComment on above:Performed By: #### SCAN CBC, BMP ####[address] [address] USALymphocytes [#/volume] in Blood by Automated countOrdered By: Corona Krishna on 63-08-0732Hhdywyfxifv (Bld) [#/Vol]2.9 10*3/uLNormal1.00-4.8White HospitalComment on above:Performed By: #### SCAN CBC, BMP ####[address] [address] USALymphocytes/100 leukocytes in Blood by Automated countOrdered By: Corona Krishna on 07-37-4388Fmjumuurdli/100 WBC (Bld)17.5 % Normal.White HospitalComment on above:Performed By: #### SCAN CBC, BMP ####[place] [address] [place] [address] [facility] [Entitic mass] by Automated countOrdered By: Corona Krishna on 06-05-2024 MCH (RBC) [Entitic mass]32.7 zqAvojrc26.7-34.3FThe [facility] Hospital Comment on above:Performed By: #### SCAN CBC, BMP ####[address] [address] [address] [facility] CITYHC Auto (RBC) [Mass/Vol]Ordered By: Corona Krishna on 41-69-5211XPMG (RBC) [Mass/Vol]33.9 g/dL32.0-35.0White HospitalMCV [Entitic volume] by Automated countOrdered By: Corona Krishna on 70-84-2651LPM (RBC) [Entitic vol]96.3 uMMktssz42-654HlantjqxlWhite HospitalComment on above:Performed By: #### SCAN CBC, BMP ####[facility] [address] [place] [address] [facility] [[email or web address]] Neutrophils [#/volume] in Blood by Automated countOrdered By: oCrona Krishna on 98-17-8266Rhkvosccamw (Bld) [#/Vol]11.0 10*3/uLHigh1.8-7.7FThe Bellevue HospitalComment on above:Performed By: #### SCAN CBC, BMP ####[facility] [address] [place] [address] USANo Panel Information Ordered By: Corona Krishna on 24-39-2768Pixnxdjhn GFR (CKD-EPI)53.862 mL/Min [facility] HospitalPharmacy Creatinine Clearance (Chem49.32 White HospitalNucleated erythrocytes [Presence] in Blood by Automated countOrdered By: Corona Krishna on 81-73-9272Uroaevkjh RBC Auto Ql (Bld)0.0 /100{WBC}0-0.5FThe Bellevue HospitalOpiates [Presence] in Urine by Screen methodOrdered By: Corona Krishna on 03-86-1919Fdrrhho Screen Ql (U)NegativeNegSumma HealthOvalocyte detectionOrdered By: Corona Krishna on 03-09-2929Jzalqvoxwb LM Ql (Bld)SlightWhite HospitalPhencyclidine Screen Ql (U)Ordered By: Corona rKishna on 89-50-2462Jruropqyzytxd Ql (U)NegativeNegSumma Health Platelet adequacy [Presence] in Blood by Light microscopyOrdered By: Corona Krishna on 76-86-4382Berfxfckr LM Ql (Bld)NormalNormalWhite HospitalPlatelet mean volume [Entitic volume] in Blood by Automated countOrdered By: Corona Krishna on 57-55-5907Tyvkaihu mean volume (Bld) [Entitic vol]8.3 fL Normal6.3-10.7FThe Bellevue HospitalComment on above:Performed By: #### SCAN CBC, BMP ####[facility] [place] [address] USAPlatelet morphology finding [Identifier] in BloodOrdered By: Corona Krishna on 00-89-1968Zchlujoz morphology finding Nom (Bld)NormalNormalWhite HospitalPlatelets [#/volume] in Blood by Automated countOrdered By: Corona Krishna on 62-82-3967Dajzqyhmu (Bld) [#/Vol]270 10*3/vXJwvgql594-496 White HospitalComment on above:Performed By: #### SCAN CBC, BMP ####[place] [address] [place] [address] [place] Poikilocytosis [Presence] in Blood by Light microscopyOrdered By: Corona Krishna on 61-72-5990Rgqobdipdkytye LM Ql (Bld)[facility] Polychromasia [Presence] in Blood by Light microscopyOrdered By: Corona Krishna on 37-48-0342Kwpslkpycoiwl LM Ql (Bld)[facility] Potassium [Moles/volume] in Serum or PlasmaOrdered By: Corona Krishna on 48-76-2430Jcqlhhmlu [Moles/Vol]3.4 mmol/LLow3.5-5.1FThe Bellevue HospitalComment on above:Performed By: #### SCAN CBC, BMP ####[facility] [place] [address] USARBC morphologyOrdered By: Corona Krishna on 44-98-0655BIN morphology finding Nom (Bld)N/The Jewish HospitalRed blood cell stomatocyte detectionOrdered By: Corona Krishna on 25-89-8167Zwownqbkeqeu LM Ql (Bld)[facility] Campuscan and CBCon 44-43-5433Elca Corpuscular HGB Conc33.9 g/cSFjicho44.0-35.0 The [facility] Health Physician GroupComment on above:Performed By: #### SCAN CBC, BMP ####[address] [address] USANRBC% 0.0 /100{WBC}Normal0-0.5The [facility]arnett Health Physician GroupComment on above:Performed By: #### SCAN CBC, BMP ####[address] [address] USAOvalocytesSAlleghany Health Physician Group Comment on above:Performed By: #### SCAN CBC, BMP ####[address] [address] USAPlatelet EstimateNormalNormalNormal [facility] Physician GroupComment on above:Performed By: #### SCAN CBC, BMP ####[address] [address] [facility] [[email or web address]] Platelet MorphologyNormalNormalNoAtrium Health Huntersville Physician [facility] Residential CenterComment on above:Result Comment: PERFORMED BY:[address] [place], [place] [phone] MEDICAL DIRECTORRADHA BONILLA M.D. Performed By: #### SCAN CBC, BMP ####[address] [address] USAPoikilocytosisSAlleghany Health Physician [facility] Residential CenterComment on above:Performed By: #### SCAN CBC, BMP ####[address] [address] USAPolychromasiaSAlleghany Health Physician GroupComment on above:Performed By: #### SCAN CBC, BMP ####[address] [address] [place] StomatocytesSAlleghany Health Physician [facility] Residential CenterComment on above:Performed By: #### SCAN CBC, BMP ####[address] [address] USASerum or plasma anion gap determinationOrdered By: Corona Krishna on 82-09-5370Xyzns gap [Moles/Vol]14.5 mmol/LNormal6.0-15.0 White HospitalComment on above:Performed By: #### SCAN CBC, BMP ####[facility] [address] [place] [address] [place] Sodium [Moles/volume] in Serum or PlasmaOrdered By: Corona Krishna on 06-05-2024 Sodium [Moles/Vol]137 mmol/ATlnypm048-308AgmlaywipWhite Hospital Comment on above:Performed By: #### SCAN CBC, BMP ####[facility] [address] [place] [address] USAUrea nitrogen [Mass/volume] in Serum or PlasmaOrdered By: Corona Krishna on 54-14-3300Ctct nitrogen [Mass/Vol]21 mg/dLNormal7-25White HospitalComment on above:Performed By: #### SCAN CBC, BMP ####[facility] [address] [place] [address] USA[address] Addendum Report[place] [address]- Surgical Pathology Report Collected Date/Time: 05/16/2024 11:28 [...] dc at 06/04/2024 08:28:56 EDT CPT CODE: 72779 (Electronic Signature) Anderson Packer MD PhD 06/04/2024 [...] of breast origin. ER: Positive, >90%, Strong SC: Positive, 80%, Moderate Ki67 proliferative index: About [...] MD Received Date/Time: 05/17/2024 07:49 JOSET APARNA PRATT, Roshan BRAUN MD, Roshan Horner [...] Collected Date/Time: 05/16/2024 11:28 EDT Pathologist: Timothy Dcukworth MD Received Date/Time: 05/17/2024 07:49 EDT APARNA PRATT, Roshan BRAUN MD, Roshan Horner Diagnosis Comment -- Number of lymph nodes with isolated tumor cells identified: 0 +Size of largest metastatic deposit: 6 mm +Extranodal Extension: Present --Number of Lymph Nodes Examined: (more content not included)...NormalTrumbull Regional Medical CenterComment on above:Performed By: #### [id number] #### [facility] [address] [place] [id number] Addendum Reporton Addendum ReportFish - [address] [address]- Surgical Pathology Report Collected Date/Time: 05/16/2024 11:28 EDT Pathologist: Timothy Duckworth MD Date/Time: 05/17/2024 07:49 EDT APARNA PRATT, Roshan BRAUN MD, Roshan Nguyen Addendum Report - 05/27/2024 16:04 EDT - Auth (Verified) Addendum To issue immunohistochemical stains on metastatic carcinoma of lymph node ( A1 ) with appropriate staining controls. 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 ER: Positive, >90%, Strong SC: Positive, 80%, Moderate Ki67 proliferative index: About [...] of Lymph Nodes Examined: 8 --Number of [place] Lymph Nodes Examined: 8 Treatment Effect: No [...] on prior left breast lumpectomy specimen (in [facility]) --ER: Positive --SC: Positive --HER-2: Negative (1+) Left axillary lymph node: Pending ER, SC, HER-2. Surgical Pathology Report Collected Gal (more content not included)...Normal [facility] Medical CenterComment on above:Performed By: #### [id number] #### [facility] [address] [place], [place] [address]Ufnfxwie Pathology Reporton 51-68-3149Ejxitful Pathology Report [facility] [address] [facility] [place] [address]- Surgical Pathology Report Collected Date/Time: 05/16/2024 11:28 [...] of Lymph Nodes Examined: 8 --Number of [place] Lymph Nodes Examined: 8 Treatment Effect: No [...] on prior left breast lumpectomy specimen (in [facility]) --ER: Positive --SC: Positive --HER-2: Negative (1+) Left axillary lymph node: Pending ER, SC, HER-2. Note: Immunohistochemical stains (CK7, CK20, CDX-2. KYLAH-3, E-Cadherin, Synaptophysin, Chromogranin, WT-1, ER, SC, HER-2, Ki67) on the tissue block A1 [...] two irregularly sh (more content not included)...Normal [facility] Medical CenterComment on above:Performed By: #### [id number] #### [facility] [address] [place], [place] [address]Zynopoxqb Reporton 05-91-4494Pqskbyfyf ReportOperative Report SURGERY DATE: 05/16/2024 PREOPERATIVE DIAGNOSIS: Left breast cancer POSTOPERATIVE DIAGNOSIS: 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 Left breast reconstruction with tissue director of corporate sponsorships and 450 cc medium height filled to 250 cc 2. Reinforcement of breast reconstruction with acellular dermal matrix ANESTHESIA: General ESTIMATED BLOOD LOSS: Minimal CLINICAL HISTORY: Adelina is a 63-year-old female who was scheduled for a left mastectomy. She desired immediate reconstruction. The patient was felt to be a good candidate for reconstruction with tissue director of corporate sponsorships and acellular dermis. The patient was explained [...] with epinephrine. A 450 cc medium-height tissue director of corporate sponsorships was selected. A medium contour perforated sheet of AlloDerm was selected. The AlloDerm was inset into the inframammary fold using 2-0 PDS sutures. The tissue director of corporate sponsorships was then sutured using the inferior tab into the mid portion of the inferior pole using 2-0 PDS sutures. The tissue exp ashley was inflated to 250 cc. The superior portion of the AlloDerm was then set into the inferior portion of the pectoralis muscle using 2-0 PDS sutures. Two 15-Guyanese Best drains were then placed into the [...] condition. Miquel Bustamante M.D. ca Dictated: 05/16/2024 [id number] Transcribed: 05/17/2024NoKindred HealthcareComment on above:Result Comment: Electronically Signed By: Robby PRATT, Miquel Mayorga\.br\Date and Time Signed: 05/23/2415:45 EDTAmbulatory Visit Summaryon 20-78-5606Plkcnijitl Visit SummaryAmbulatory Visit Summary ADELINA MIR :1960 Visit Date:05/21/2024 Ambulatory Visit Instructions Your [...] Appointments Monday 2:30 PM EDT With: Where: [address] [address]- Monday 3:30 PM EDT With: Michael Holley MD Where: [address] [address]- Medications What How Much When Instructions Unchanged [...] you for choosing us for your care. [facility] SystemGeneral Surgery Office/Clinic Noteon 34-42-9507Othzfjw Surgery Office/Clinic NoteGeneral Surgery Office/Clinic Note Chief [...] node biopsy and immediate reconstruction with tissue director of corporate sponsorships per Dr Bustamante; doing well, minimal drain [...] Refuses influenza virus vac (more content not included)...[facility] SystemComment on above:Result Comment: Electronically Signed By: APARNA PRATT, Roshan Hargrove\Date and Time Signed: 05/21/24 16:15 EDTMain OR Intraoperative Recordon 52-50-4164Rkcp OR Intraoperative RecordMain OR Intraoperative Record IntraOp Document Type FT Summary Primary Physician: Miquel Bustamante MD Finalized Date/Time: 05/20/24 08:39:40 Pt. Name: ADELINA MIR /Sex: 1960 Female Med Rec #: [id number] Physician: Roshan BRAUN MD Financial #: [id number] Pt. Type: A Room/Bed: [place] [address] Admit/Disch: 05/16/24 08:03:16 - 05/16/24 16:00:00 Institution: [...] Surgeon - Assist 1 Surgeon - Primary Field Superintendent Time In 05/16/24 10:16:00 05/16/24 12:16:00 05/16/24 10:16:00 Time Out 05/16/24 13:27:00 05/16/24 13:27:00 05/16/24 12:25:00 Procedure MASTECTOMY MASTECTOMY MASTECTOMY SIMPLE(Left), SENTINEL SIMPLE(Left), SENTINEL SIMPLE(Left), SENTINEL NODE BIOPSY(Left), NODE BIOPSY(Left), NODE BIOPSY(Left) BREAST RECONSTRUCTION BREAST RECONSTRUCTION W/ PLACEMENT OF TI(Left) W/ PLACEMENT OF TI(Left) Comments , anesthesia supervisor sample, 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 [id number] Last Modified By: Kal Martins Ii, Alfons Ii F Letrondo, Alfons Ii F 05/16/24 13:37:20 05/16/24 13:37:20 05/16/24 13:37:20 Entry 4 Entry 5 Entry 6 Case Attendee Bigg VILLALOBOS, Jonas Naik RN, Jose Alfredo Cano Role Performed Diesel Plant Operator - Primary Diesel Plant Operator - Primary Scrub - Primary Time In [...] to Out for lunch break lunch from 7119-5001. lunch from 6128-5559. from 9922-1161 Last Modified By: Kal Martins Ii, Alfons Ii F Letrondo, Alfons Ii F 05/16/24 13:37:20 05/16/24 13:37:20 05/16/24 13:37:20 Entry 7 Entry 8 Entry 9 Case Attendee Reinaldo JACQUES, Christina Castillo CST, Laura Tellez Role Performed Staff - Other FABRIC FINISHER/SA Scrub - Relief Time In 05/16/24 10:16:00 05/16/24 10:16:00 05/16/24 11:21:00 Time Out 05/16/24 13:27:00 05/16/24 13:27:00 05/16/24 12:04:00 Procedure MASTECTOMY MASTECTOMY MASTECTOMY SIMPLE(Left), SENTINEL SIMPLE(Left), SENTINEL SIMPLE(Left), SENTINEL NODE BIOPSY(Left), NODE BIOPSY(Left), NODE BIOPSY(Left) BREAST RECONSTRUCTION BREAST RECONSTRUCTION W/ PLACEMENT OF TI(Left) W/ PLACEMENT OF TI(Left) Comments 2nd scrub at sterile 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 [phone] 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, 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, out to lunch [phone] Last Modified By: Kal Martins Ii, Alfons Ii Kal Diego Ii Adrián 05/16/24 13:37:20 05/16/24 13:37:20 05/16/24 13:37:20 Entry 10 Entry 11 Entry 12 Case Attendee Kal Martins Ii, CST, Marilyn Shell VP CLINICAL, Debbi Lemus Role Performed Diesel Plant Operator - Relief FABRIC FINISHER/ VP CLINICAL Time In 05/16/24 11:30:00 05/16/24 11:37:00 05/16/24 [...] 13:37:20 05/16/24 13:37:20 Entry 13 Case Attendee Miquel Bustamante MD Role Performed Surgeon - Primary Time In [...] Site Present Verified H&P, (more content not included)...[facility] Operative Reporton [id number] ReportOperative Report Patient: ADELINA MIR Age: 63 years Sex: Female : 1960 Associated Diagnoses: None Author: Roshan BRAUN MD Postoperative Information Procedure: left breast skin sparing mastectomy with sentinel lymph node biopsy Preoperative Diagnosis: Breast cancer of lower-inner quadrant of left female breast (NOW40-TB C50.312, Working, Medical). Postoperative Diagnosis: Breast cancer of lower-inner quadrant of left female breast (AOA16-JN C50.312, Working, Medical). Performed by: Roshan BRAUN MD Findings: Synoptic Report [place] Node Biopsy Operation performed for curative intent? [...] Loss: 12 ml. Complications: None. Anesthesia type: General.[facility] SystemComment on above: Result Comment: Electronically Signed By: Roshan BRAUN MD\.br\Date and Time Signed: 05/17/24 07:07 EDTOperative ReportOperative [...] down through the subcutaneous tissue using electrocautery. [place] clamps were then placed on the superior [...] Bustamante for immediate reconstruction. Roshan Braun M.D. [facility] Dictated: 05/16/2024 [id number] Transcribed: 05/17/2024 cc:Michael Holley M.D.[facility] SystemComment on above:Result Comment: Electronically Signed By: APARNA PRATT, Roshan Horner\.br\Date and Time Signed: 05/17/24 06:55 EDTDischarge Instructionson 22-13-2371Iesyuifzz Instructions Discharge Instructions ADELINA MIR :1960 Visit Date:05/16/2024 Inpatient Discharge Instructions Your Care Team Admitting Physician - Roshan BRAUN MD Referring Physician - Roshan BRAUN MD Your Diagnosis Acute postoperative pain Breast cancer [...] Appointments Monday 2:30 PM EDT With: Where: [address] [address]- Monday 3:30 PM EDT With: Kishan PRATT, Michael Barker Where: [facility] [address] [place] [address]- New Follow Up Appointments after Discharge Follow Up with Miquel Bustamante When: Comments: Keep scheduled appointment Where: [address] [place] [address]- Business (1) Follow Up with Roshan BRAUN When: Within 5 to 7 days Comments: Call for any problems. Where: [address], [address] [facility] [address] [place] [address]- Business (1) Medications What How Much When [...] Mouth 3 times a day Pickup at [facility] Unchanged alprazolam [...] By Mouth Every day Pharmacy Information [facility]: [address] [place], [place] [id number] [phone] Allergies Entex (Unknown) Skelaxin (Unknown) corticosteroids (Anaphylaxis) Devices Implanted/Removed This Visit Notice: You have devices implanted this visit that may not be MRI compatible. 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 ? Change your dressing as told by [...] ? Check your inci (more content not included)...[facility] Comment on above:Result Comment: Electronically Signed By: Naa VILLALOBOS, Alee Mckeon\.br\Date and Time Signed: 05/16/24 13:47 EDTInpatient Patient Summaryon 50-93-5431Zsyjllexq Patient SummaryInpatient Patient Summary [address] [facility] Clinical Discharge Instructions PERSON INFORMATION Name: ADELINA MIR PHYSICIANS Admitting Physician: Roshan BRAUN MD Attending Physician: Roshan BRAUN MD PCP: Michael Holley MD Discharge Diagnosis: Breast cancer of lower-inner quadrant of left female breast Comment: PATIENT EDUCATION INFORMATION Instructions: Medication Leaflets: Follow up: With: Address: When: [place] [phone] Business (1) Comments: Keep scheduled appointment With: Address: When: [address], [address], [facility] [address] [place] [phone] Business (1) Within 5 to 7 days Comments: Call for any problems. Type Location Start [facility] Medicare Wellness Initial [facility] 06/11/2024 2:30 PM 06/11/2024 3:30 PM Confirmed FM Open [facility] 06/11/2024 3:30 PM 06/11/2024 3:45 PM Confirmed MEDICATION LIST New Medications [facility], [address] [place], [place] [id number], [phone] acetaminophen-oxycodone (acetaminophen-oxycodone 325 mg-5 mg Tab) 1 Tablets By Mouth every 6 hours as needed Pain. take with food or milk not to exceed 4000 mg acetaminophen per day. Refills: 0. Medications to Continue Taking That Have Changed [facility], [address] [place], [place] [id number], [phone] START: gabapentin (gabapentin 300 mg Cap) 1 [...] Tablets By Mouth every day. Refills: 3. Comment:[facility] PACU I Recordon 25-36-1142Cwtm OR PACU I RecordMain OR PACU I Record PACU Phase I Document Type FT Summary Primary Physician: Miquel Bustamante MD Finalized Date/Time: 05/16/24 14:23:33 Pt. Name: ADELINA MIR/Sex: 1960 Female Med Rec #: [id number] Physician: Roshan BRAUN MD Financial #: [id number] Pt. Type: A Room/Bed: [facility] Admit/Disch: 05/16/24 08:03:16 - Institution: Case Times [...] Signatures Signed By: Shaneka Mariano I 05/16/24 14:23NormilanaHarris Regional Hospitalteofilo [facility] CenterMain OR PACU II Recordon 09-65-5816Rxjp OR PACU II RecordMain OR PACU II Record PACU Phase II Document Type FT Summary Primary Physician: Miquel Bustamante MD Finalized Date/Time: 05/16/24 15:52:26 Pt. Name: MICHAELADELINA D.O.B./Sex: 1960 Female Med Rec #: [id number] Physician: Roshan BRAUN MD Financial #: [id number] Pt. Type: A Room/Bed: [place] [address] Admit/Disch: 05/16/24 08:03:16 - Institution: Case Times [...] Signatures Signed By: Alee Jacome RN 05/16/24 15:52NoKindred HealthcareMain OR Preoperative Recordon 34-36-2065Gzff OR Preoperative RecordMain OR Preoperative Record PreOp Document Type FT Summary Primary Physician: Roshan BRAUN MD Finalized Date/Time: 05/16/24 11:21:05 Pt. Name: MICHAELADELINA/Sex: 1960 Female Med Rec #: [id number] Physician: Roshan BRAUN MD Financial #: [id number] Pt. Type: Room/Bed: [place] [address] Admit/Disch: 05/16/24 08:03:16 - Institution: Case Times [...] Signatures Signed By: Jonas Pride RN 05/16/24 11:21NoKindred HealthcareNM Lymphoscintigraphyon 28-09-0682NY LymphoscintigraphyExam Date/Time: 05/16/2024 09:40 EDT Reason for [...] BRAUN FINAL REPORT Dictated: 05/16/2024 1:59 pm Corona Lieberman M.D. Signed (Electronic Signature): 05/16/2024 1:59 pm Signed by: Corona Lieberman M.D. Transcribed by: ROSMERY Technologist: CALLIE Technical Comments Dose (mCi Tc99m Lymphoseek): 0.6NormalTrumbull Regional Medical CenterOutpatient Surgery Discharge Instructionon 13-89-3777Jkqbxbkink Surgery Discharge InstructionOutpatient Surgery Discharge Instruction [place] [id number] Patient Discharge Instructions PERSON INFORMATION Name: ADELINA [...] up: With: Address: When: Miquel Bustamante [address] [place] [address] Business (1) Comments: Keep scheduled appointment With: Address: When: [address], [address], [facility] [address] [place] [address] Business (1) Within 5 to 7 days Comments: Call for any problems. Type Location Start Finish State FM Medicare Wellness Initial [facility] 06/11/2024 2:30 PM 06/11/2024 3:30 PM Confirmed FM Open [facility] 06/11/2024 3:30 PM 06/11/2024 3:45 PM Confirmed [...] to serve you. Thank you for choosing [facility] HERE ARE THE MEDICATION CHANGES THAT OCCURRED DURING YOUR HOSPITAL STAY New Medications [facility], [address] [facility] [place], [place] [id number], [phone] acetaminophen-oxycodone (acetaminophen-oxycodone 325 mg-5 mg Tab) 1 Tablets By Mouth every 6 hours as needed Pain. take with food or milk not to exceed 4000 mg acetaminophen per day. Refills: 0. Medications to Continue Taking That Have Changed [facility], [address] [facility] [place], [place] [id number], [phone] START: gabapentin (gabapentin 300 mg Cap) 1 [...] Refills: 3. PATIENT EDUCATION INFORMATION Instructions: Medication Leaflets:GregoryTrumbull Regional Medical CenterURINALYSISOrdered By: SYSTEM SYSTEM on 86-48-8620Twofijfm Auto Ql (U)Trace /HPFNormalTrace/HPFNORMAN REGIONAL [facility] UA Auto SSBilirubin Ql (U)NegativeNormalNegativemg/dLNORMAN REGIONAL HOSPITAL [facility] UA Auto SSClarity (U) Clear (05/16/24 11:07 AM)NormalClearFCOMMUNITY HOSPITAL – [place] UA Auto SSColor (U)Colorless 1 *ABN* (05/16/24 11:07 AM)Invalid Interpretation CodeYellowNORMAN REGIONAL HOSPITAL [facility]OR[facility] UA Auto SSComment on above:Interpretive Data: Microscopic readings are only performed on those samples that meet specific criteria set forth by [facility].Epithelial cells.squamous Auto (Urine sed) [#/Area]0-2 graded/HPF Invalid Interpretation CodeFT UA Auto SSGlucose Ql (U)NegativeNormal Negativemg/dLNORMAN REGIONAL [facility]OSPITAL [facility] UA Auto SSHemoglobin Auto test strip (U) [Mass/Vol]Negative NormalNegativemg/dLNORMAN REGIONAL [facility] UA Auto SSKetones Auto test strip Ql (U)NegativeNormal Negativemg/dLNORMAN REGIONAL [facility] UA Auto SSLeukocyte esterase Auto test strip Ql (U)Negative NormalNegativeLeu/uLFT UA Auto SSMucus Auto Ql (U)NegativeNormal Negativegraded/LPFFTMC UA Auto SSNitrite Auto test strip Ql (U)1+ mg/dLInvalid Interpretation CodeNegativemg/dLNORMAN REGIONAL [facility] UA Auto SSpH (U)6.5 *NA* (05/16/24 11:07 AM)Invalid Interpretation Code5.0 - 9.0[facility] UA Auto SSProtein Ql (U)NegativeNormalNegativemg/dLNORMAN REGIONAL [facility] UA Auto SSSpecific gravity (U) [Rel density] 1.006 *NA* (05/16/24 11:07 AM)Invalid Interpretation Code1.005 - 1.030[facility] UA Auto SS Urobilinogen (U) [Mass/Vol]NegativeNormalNegativemg/dLNORMAN REGIONAL [facility] UA Auto SSWBC Auto (Urine sed) [#/Area]0-5 graded/HPFNormal0-5graded/HPFNORMAN REGIONAL [facility] UA Auto SSURINALYSIS Ordered By: Jonas Pride on [id number] Spec DescFoley (05/16/24 11:07 AM)NormalNORMAN REGIONAL [facility] UA Auto SSUrinalysis with Microon 05-16-2024 Bacteria Auto Ql (U)TraceNormalTraceHarris Regional Hospitaler [facility] CenterComment on above: Performed By: #### [id number] ####Paul [facility] Jbbdegwfsl[address] [id number] Ql (U)NegativeNormalNegativeHarris Regional Hospitaler [facility] Hospital CenterComment on above:Performed By: #### [id number] ####Paul [facility] Eozutfg[address] [id number] (U)ClearNormal ClearFisher Columbus Medical CenterComment on above:Performed By: #### [id number] ####[place] [address] [address] AveNgreenwich hospital, [place]Hzeww (U)ColorlessAbnormalYellowTrumbull Regional Medical CenterComment on above:Result Comment: Microscopic readings are only performed on those samples that meet specific criteria set forth by [facility].Performed By: #### [id number] ####[address], [address]Xhqwvkoqws cells.squamous Auto (Urine sed) [#/Area]0-2Invalid Interpretation CodeTrumbull Regional Medical CenterComment on above:Performed By: #### [id number] ####[address], BG[address]Ujavqkp Ql (U)NegativeNormalNegativeTrumbull Regional Medical CenterComment on above:Performed By: #### [id number] ####[address]Ngreenwich hospital, [place]Uuajtwxmye Auto test strip (U) [Mass/Vol]NegativeNormalNegativeTrumbull Regional Medical CenterComment on above: Performed By: #### [id number] ####[address], [place]Mhvtuqh Auto test strip Ql (U)NegativeNormalNegative Tr[facility]ull Regional Medical CenterComment on above:Performed By: #### [id number] ####[facility] Zgmqkrhnjz[address] Clinton AveNgreenwich hospital, [place] Leukocyte esterase Auto test strip Ql (U)NegativeNormalNegativeTrumbull Regional Medical CenterComment on above:Performed By: #### [id number] ####[place] [address] [address]Ngreenwich hospital, [address]Svicf Auto Ql (U) NegativeNormalNegativeTrumbull Regional Medical CenterComment on above:Performed By: #### [id number] ####[facility] Q[address] [place] [address], FD[address]Leceugh Auto test strip Ql (U)1+ mg/dLAbnormalNegativeTrumbull Regional Medical CenterComment on above:Performed By: #### [id number] ####Paul [address], ZR[address]lB (U)6.5 [pH] Invalid Interpretation Code5.0-9.0Trumbull Regional Medical CenterComment on above: Performed By: #### [id number] ####Paul [address], NU[address]Xummhrc Ql (U)NegativeNormalNegativeTrumbull Regional Medical CenterComment on above:Performed By: #### [id number] ####Paul [address], QK[address]Onmztzwq gravity (U) [Rel density]1.006Invalid Interpretation Code1.005-1.030Tr[facility]ull Regional Medical CenterComment on above:Performed By: #### [id number] ####Paul [address], [place]Yiuqykzyukhg (U) [Mass/Vol] NegativeNormalNegativeTrumbull Regional Medical CenterComment on above:Performed By: #### [id number] ####Miller [address], HC[address]BQB Auto (Urine sed) [#/Area]8-7Xuykxa6-8Ezvkvl [facility] CenterComment on above:Performed By: #### [id number] ####Miller [address], [place]Spyi of Urine collection method FoleyNormCentervilleComment on above:Performed By: #### [id number] ####Paul [address] [place], [place] [address]Svraof Medicine Office/Clinic Noteon 79-49-3705Qxngyt Medicine Office/Clinic NoteFamurphy army hospital Medicine Office/Clinic Note HPI Staff Sahu is a 63 year old female presenting [...] days ago Tob (more content not included)... [facility] SystemComment on above:Result Comment: Electronically Signed By: Kishan PRATT, Michael Ball.br\Date and Time Signed: 05/14/24 14:37 EDT General Surgery Office/Clinic Noteon 43-08-0876Rplcqxj Surgery Office/Clinic NoteGeneral Surgery Office/Clinic Note Chief Complaint discuss mastectomy HPI Staff Presents to discuss left mastectomy. 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 Review of Systems PHQ Score Initial Depression [...] Tobacco Use:. Cigarettes, Household (more content not included)...[facility] SystemComment on above:Result Comment: Electronically Signed By: APARNA PRATT, Roshan Hargrove\Date and Time Signed: 04/30/24 07:48 EDTXR Chest 2 Viewson 21-94-8610RA Chest 2 ViewsExam Date/Time: 04/29/2024 14:07 EDT [...] ROSMERY Technologist: ANTON Technical Comments Radiation Dose: Ka,r in mGy = 0 DAP = 0NormalTrumbull Regional Medical CenterBMPon 41-29-8308Kprzj gap [Moles/Vol]9 mmol/LNormal6-16Tr[facility]ull Regional Medical CenterComment on above:Performed By: #### [id number] #### [facility] [address] [place], [place] [address]Eybdexl [Mass/Vol]9.1 mg/dLNormal8.9-11.1FAshtabula General HospitalComment on above:Performed By: #### [id number] #### [facility] [address] [place], [place] [address]Vnsuppde [Moles/Vol]105 mmol/ARrcaip651-002IkcpobTrumbull Regional Medical CenterComment on above:Performed By: #### [id number] #### [facility] [address] [place], [place] [address]YJ1 [Moles/Vol]27 mmol/XQfdegp61-22IpnpwvTrumbull Regional Medical Center Comment on above:Performed By: #### [id number] #### [facility] [address] [place], [place] [address]Scehoxiasa [Mass/Vol]0.9 mg/dLNormal0.5-1.3FAshtabula General HospitalComment on above:Performed By: #### [id number] #### [facility] [address] [place], [place] [address]Wlfzhyb [Mass/Vol]104 mg/nHGwbycl82-950WyqjeaTrumbull Regional Medical CenterComment on above:Performed By: #### [id number] #### [facility] [address] [place], [place] [address]Juvmoinpk [Moles/Vol]3.9 mmol/LNormal3.5-5.3FAshtabula General HospitalComment on above:Performed By: #### [id number] #### [facility] [address] [place], [place] [address]Cisgaz [Moles/Vol]137 mmol/YGogppd182-942MavbbxTrumbull Regional Medical CenterComment on above:Performed By: #### [id number] #### [facility] [address] [place], [place] [address]Flip nitrogen [Mass/Vol]18 mg/dLNormal5-21Tr[facility]ull Regional Medical CenterComment on above:Performed By: #### [id number] #### [facility] [address] [place], [place] [address]Zovm nitrogen/Creatinine [Mass ratio]20 No GzfgcEjedyv52-38 [facility] Medical CenterComment on above:Performed By: #### [id number] #### [facility] [address] [place], [place] [address]NQG w/ Auto Diffon 28-70-4888Gfsqotpxt/100 WBC (Bld)0.5 %Normal 0.0-2.0Tr[facility]ull Regional Medical CenterComment on above:Performed By: #### [id number] #### [facility] [address] [place], [place] [address]Fzvagcvpc/Leukocytes Auto (Bld) [Pure # fraction]0.1 E9/LNormal 0.0-0.2FAshtabula General HospitalComment on above:Performed By: #### [id number] #### [facility] [address] [place], [place] [address]Nusfwegzgrn (Bld) [#/Vol]0.4 E9/LNormal0.0-0.5FAshtabula General HospitalComment on above:Performed By: #### [id number] #### [facility] [address] [place], [place] [address]Xgowjzpiedu/100 WBC (Bld)3.5 %Normal0.0-8.0[facility] Regional Medical CenterComment on above:Performed By: #### [id number] #### [facility] [address] [place], [place] [address]Wvwefhxofbc distribution width (RBC) [Ratio]14.4 %High10.9-14.2 [facility] Regional Medical CenterComment on above:Performed By: #### [id number] #### [facility] [address] [place], [place] [address]Yvahsexeyy (Bld) [Volume fraction]40.7 %Sxvxnp33.0-46.0[facility] Medical CenterComment on above:Performed By: #### [id number] #### [facility] [address] [place] [address]Ahtqadcmnj (Bld) [Mass/Vol]13.9 g/nGNgxkxq41.0-16.0[facility] Medical CenterComment on above:Performed By: #### [id number] #### [facility] [address] [place] [address]Ebgsnsymoeq (Bld) [#/Vol]2.6 E9/LNormal1.0-4.0[facility] Medical CenterComment on above:Performed By: #### [id number] #### [facility] [address] [place] [address]Vajaejwuoch/100 WBC (Bld)26.4 %Fjdwdp79.0-50.0[facility] Medical CenterComment on above:Performed By: #### [id number] #### [facility] [address] [place] [address]XWY (RBC) [Entitic mass]32.8 zcIgnbjz44.0-34.0[facility] Medical CenterComment on above:Performed By: #### [id number] #### [facility] [address] [place] [address]NHRK (RBC) [Mass/Vol]34.0 g/rVIwdpxl41.4-36.0[facility] Medical CenterComment on above:Performed By: #### [id number] #### [facility] [address] [place] [address]SDO (RBC) [Entitic vol]96.5 mGQmvcil34.0-100.0[facility] Medical CenterComment on above:Performed By: #### [id number] #### [facility] [address] [place] [address]Euuakihnj (Bld) [#/Vol]0.7 E9/LNormal0.2-1.0[facility] CenterComment on above:Performed By: #### [id number] #### [facility] [address] [place] [address]Lirrdmrpzcp (Bld) [#/Vol]6.2 E9/LNormal2.0-7.5FAshtabula General HospitalComment on above:Performed By: #### [id number] #### [facility] [address] [place] [address]Gfbpvrhcptk/100 WBC (Bld)62.2 %Fuatts32.0-75.0[facility] Medical CenterComment on above:Performed By: #### [id number] #### [facility] [address] [place] [address]Kuvokcwr mean volume (Bld) [Entitic vol]8.4 fLNormal6.4-10.8 [facility] Medical CenterComment on above:Performed By: #### [id number] #### [facility] [address] [place] [address]Fnckdflru (Bld) [#/Vol]294.0 E9/FIwbnfm150.0-500.0[facility] Medical CenterComment on above:Performed By: #### [id number] #### [facility] [address] [place] [address]GPF (Bld) [#/Vol]4.2 E12/LLow4.3-5.9[facility] Comment on above:Performed By: #### [id number] #### Paul [facility] [address] [place], [place] [address]MZX corrected for nucl RBC Auto (Bld) [#/Vol]9.9 E9/LNormal 4.0-11.0[facility] Medical CenterComment on above:Performed By: #### [id number] #### Paul [facility] [address] [place], [place] [address]CHVLZOMZUYkcfsmz By: SYSTEM SYSTEM on 48-71-7050Artsh gap [Moles/Vol]9 mmol/LNormal6 - 16 mEq/LRemisol ChemCalcium [Mass/Vol]9.1 mg/dL Normal8.9 - 11.1 mg/dLRemisol ChemChloride [Moles/Vol]105 mmol/TMlxwbt570 - 111 mmol/LRemisol ChemCO2 [Moles/Vol]27 mmol/SBldunu15 - 31 mmol/LRemisol Chem Creatinine [Mass/Vol]0.9 mg/dLNormal0.5 - 1.3 mg/dLRemisol SdlteDZK18 mL/min/1.73 v9Boljgo>=59mL/min/1.73 r0Oqqimuh ChemGlucose [Mass/Vol]104 mg/dL Qqnrtr23 - 199 mg/dLRemisol ChemPotassium [Moles/Vol]3.9 mmol/LNormal3.5 - 5.3 mmol/LRemisol ChemSodium [Moles/Vol]137 mmol/KBevoxw079 - 145 mmol/LRemisol Chem Urea nitrogen [Mass/Vol]18 mg/dLNormal5 - 21 mg/dLRemisol ChemUrea nitrogen/Creatinine [Mass ratio]20 mg/rmSxjcvv30 - 20Remisol ChemHEMATOLOGY Ordered By: SYSTEM SYSTEM on 82-90-8214Pilnrbmnu/100 WBC (Bld)0.5 %Normal0.0 - 2.0 %Remisol HemeBasophils/Leukocytes Auto (Bld) [Pure # fraction]0.1 E9/LNormal 0.0 - 0.2 E9/LRemisol HemeEosinophils (Bld) [#/Vol]0.4 E9/LNormal0.0 - 0.5 E9/L Remisol HemeEosinophils/100 WBC (Bld)3.5 %Normal0.0 - 8.0 %Remisol Heme Erythrocyte distribution width (RBC) [Ratio]14.4 %High10.9 - 14.2 %Remisol Heme Hematocrit (Bld) [Volume fraction]40.7 %Haboxe37.0 - 46.0 %Remisol Heme Hemoglobin (Bld) [Mass/Vol]13.9 g/tVFfbgzj15.0 - 16.0 gm/dLRemisol Heme Lymphocytes (Bld) [#/Vol]2.6 E9/LNormal1.0 - 4.0 E9/LRemisol HemeLymphocytes/100 WBC (Bld)26.4 %Fzzdjw38.0 - 50.0 %Remisol HemeMCH (RBC) [Entitic mass]32.8 pg Vrgysm38.0 - 34.0 pgRemisol HemeMCHC (RBC) [Mass/Vol]34.0 g/gECjpmfc35.4 - 36.0 gm/dLRemisol HemeMCV (RBC) [Entitic vol]96.5 wETujsqk29.0 - 100.0 fLRemisol Heme Monocytes (Bld) [#/Vol]0.7 E9/LNormal0.2 - 1.0 E9/LRemisol HemeMonocytes/100 WBC (Bld)7.4 %Normal4.0 - 14.0 %Remisol HemeNeutrophils (Bld) [#/Vol]6.2 E9/LNormal 2.0 - 7.5 E9/LRemisol HemeNeutrophils/100 WBC (Bld)62.2 %Lahnov54.0 - 75.0 % Remisol HemePlatelet mean volume (Bld) [Entitic vol]8.4 fLNormal6.4 - 10.8 fL Remisol HemePlatelets (Bld) [#/Vol]294.0 E9/JMitpar874.0 - 500.0 E9/LRemisol HemeRBC (Bld) [#/Vol]4.2 E12/LLow4.3 - 5.9 E12/LRemisol HemeWBC corrected for nucl RBC Auto (Bld) [#/Vol]9.9 E9/LNormal4.0 - 11.0 E9/LRemisol HemeeGFRon 31-79-1267qINV31 mL/min/1.73 j5Ntdwqz>=59Trumbull Regional Medical CenterComment on above:Order Comment: Order added by Discern Expert.Performed By: #### [id number] #### [facility] [address] [place], [place] [address]Azgfmtmygb Visit Summaryon 58-36-5401Spcjnxlubw Visit Summary Ambulatory Visit Summary ADELINA MIR [...] EDT With: Kishan PRATT, Michael Barker Where: [address] [address]- Medications What How Much When Instructions Unchanged [...] you for choosing us for your care. [facility] SystemGeneral Surgery Office/Clinic Noteon 07-47-6127Pwqqogd Surgery Office/Clinic NoteGeneral Surgery Office/Clinic Note Chief [...] Given Postpone due to refusal patient seen 02/27/24Av[facility] SystemComment on above:Result Comment: Electronically Signed By: APARNA PRATT, Roshan Horner\.br\Date and Time Signed: 03/01/24 11:11 EDTPathology Noteon 71-94-6483Bofnsazrq Note [id number]#1.00TIFRegency Hospital Cleveland EastAmbulatory Visit Summaryon 61-29-9030Mrwjqyarbl Visit Summary ADELINA MIR :1960 Visit Date:02/27/2024 [...] EDT With: Michael Holley MD Where: [facility] HospitalAmb[facility] Summary ADELINA MIR :1960 Visit [...] Follow-Up Appointments Monday 3:00 PM EDT With: Roshan BRAUN MD Where: [facility] General Surgery [address] [address]- \.br\ Medications\.br\ What How Much When In [...] for choosing us for your care.\.br\ \.br\[facility] Medicine Office/Clinic Noteon 41-54-8349Fbtdmk Medicine Office/Clinic NoteHPI Staff Adelina is a [...] tab(s), Oral, TID aspiri (more content not included)...[facility] SystemComment on above:Result Comment: Electronically Signed By: Kishan PRATT, Michael Ball.br\Date and Time Signed: 02/27/24 14:32 EDTPathology Noteon 25-17-5188Blnttkwpc Note [id number]#1.00TIFFAvita Health SystemPathology [id number]#1.00TIFVeterans Health AdministrationGeneral Surgery Office/Clinic Noteon 02-23-2024 General Surgery Office/Clinic [...] - Not Given Patient Refuses SARS-CoV-2 mRNA (aidenn 5y-11y) vac - Not Given Postpone due to refusal [facility] SystemComment on above:Result Comment: Electronically Signed By: APARNA PRATT, Roshan Hargrove\Date and Time Signed: 02/23/24 08:32 EDT Consent for Procedure/Surgeryon 29-15-5101Wxdiafz for Procedure/Surgery [id number]#1.00TIFFAvita Health SystemFormson [id number]#1.00TIFF [facility] Health SystemForms [id number]#1.00TIFFAvita Health SystemAmbulatory Visit Summaryon 03-25-3236Kfsfrqqyuw Visit Summary ADELINA MIR :1960 Visit Date:02/20/2024 [...] With: Kishan PRATT, Michael Barker Where: [facility] Family [facility] HospitalAlanine aminotransferase [Enzymatic activity/volume] in Serum or PlasmaOrdered By: Kush Glez on 41-83-8930AEC [Catalytic activity/Vol]13 U/L 7-52White HospitalAlbumin [Mass/volume] in Serum or Plasma by Bromocresol green (BCG) dye binding methoOrdered By: Kush Glez on 64-94-1025Cnvrtnd BCG dye [Mass/Vol]4.3 g/dL3.5-5.7FThe Bellevue HospitalAlkaline phosphatase [Enzymatic activity/volume] in Serum or PlasmaOrdered By: Kush Glez on 67-00-0305KSH [Catalytic activity/Vol]65 U/L34-104 White HospitalAspartate aminotransferase [Enzymatic activity/volume] in Serum or PlasmaOrdered By: Kush Glez on 56-91-5729ZYT [Catalytic activity/Vol]18 U/L33-09HkjzlszpnWhite HospitalBasophils Auto (Bld) [#/Vol]Ordered By: tara SilvaIselarekha on 03-03-9615Ykkbnbwsy (Bld) [#/Vol]0.1 10*3/uL0.0-0.2FThe Bellevue HospitalBasophils/100 WBC Auto (Bld)Ordered By: tara Glez on 49-62-9841Tlthscmua/100 WBC (Bld)1.3 %. White HospitalBilirubin.total [Mass/volume] in Serum or PlasmaOrdered By: [facility] on 82-20-5954Jtjlpvfqb [Mass/Vol]0.4 mg/dL 0.3-1.0White HospitalCalcium [Mass/volume] in Serum or Plasma Ordered By: [facility] on 41-47-9758Ghlqarr [Mass/Vol]9.5 mg/dL8.6-10.3 White HospitalCancer antigen 27-29 measurementOrdered By: tara SilvaIselarekha on 55-16-9141ZF 27.2913.6 U/mL0.0-38.6FThe Bellevue HospitalComment on above:[employer] Immunochemiluminometric Methodology (ICMA)Values obtained with different assay methods or kits cannotbe used interchangeably. Results cannot be interpreted asabsolute evidence of the p resence or absence of malignantdisease.Performed at: [facility] [id number] Director: Anthony Keane PhD, Phone: [phone] antigen 27-29 msewluogqek38.6 U/mL0.0-38.6FThe Bellevue HospitalComment on above:[employer] Immunochemiluminometric Methodology (ICMA)Values obtained with different assay methods or kits cannotbe used interchangeably. Results cannot be interpreted asabsolute evidence of the p resence or absence of malignantdisease.Performed at: [facility] [id number] Director: Anthony Keane PhD, Phone: [phone] dioxide, total [Moles/volume] in Serum or PlasmaOrdered By: tara Glez on 43-20-2107YN0 [Moles/Vol]29.3 mmol/L21.0-31.0White HospitalChloride [Moles/volume] in Serum or PlasmaOrdered By: tara Hooker on 78-91-9010Ktbueujt [Moles/Vol]103 mmol/U98-314UnzxmidraWhite HospitalCreatinine [Mass/volume] in Serum or PlasmaOrdered By: tara Hooker on 21-10-3712Kfozotuglk [Mass/Vol]1.03 mg/dL0.60-1.20White HospitalEosinophils Auto (Bld) [#/Vol]Ordered By: tara Glez on 40-99-3138Ayarmhgmpyy (Bld) [#/Vol]0.3 10*3/uL0.0-0.45White HospitalEosinophils/100 WBC Auto (Bld)Ordered By: tara Glez on 02-13-2024 Eosinophils/100 WBC (Bld)3.6 %.White HospitalErythrocyte distribution width Auto (RBC) [Ratio]Ordered By: tara Glez on 02-13-2024 Erythrocyte distribution width (RBC) [Ratio]14.4 %11.9-15.3FThe Bellevue HospitalGlobulin Calc (S) [Mass/Vol]Ordered By: tara Glez on 99-47-2253Vtrroqws (S) [Mass/Vol]2.3 g/dLWhite Hospital Glucose [Mass/volume] in Serum or PlasmaOrdered By: tara Glez on 02-13-2024 Glucose [Mass/Vol]106 mg/bKIlvn91-073ZuurwsrcoWhite HospitalComment on above:ADA recommended reference rangeRandom Glucose Reference Range is dependent on time and content of last meal. Glucose of more than 200 mg/dL in a nonstressed, ambulatory subject supports the diagnosisof Diabetes Mellitus. Hematocrit Auto (Bld) [Volume fraction]Ordered By: tara Glez on 02-13-2024 Hematocrit (Bld) [Volume fraction]41.1 %34.0-46.4FThe Bellevue HospitalHemoglobin [Mass/volume] in BloodOrdered By: Kush Glez on 02-13-2024 Hemoglobin (Bld) [Mass/Vol]13.9 g/dL11.8-15.4FThe Bellevue Hospital Leukocytes [#/volume] corrected for nucleated erythrocytes in Blood by Automated counOrdered By: Kush Glez on 54-31-4495BEJ corrected for nucl RBC Auto (Bld) [#/Vol]8.7 10*3/uL3.8-11.6FThe Bellevue HospitalLymphocytes Auto (Bld) [#/Vol]Ordered By: Kush Glez on 05-46-6319Gzegzlmojlh (Bld) [#/Vol]2.4 10*3/uL1.00-4.8White HospitalLymphocytes/100 WBC Auto (Bld)Ordered By: Kush Glez on 85-13-5279Nbwnbtqxtzq/100 WBC (Bld)27.3 %.[facility] HospitalH Auto (RBC) [Entitic mass]Ordered By: Kush Glez on 89-63-5041FMN (RBC) [Entitic mass]32.8 pg24.7-34.3FThe Bellevue HospitalMCHC Auto (RBC) [Mass/Vol]Ordered By: Kush Glez on 75-76-2230IACM (RBC) [Mass/Vol]33.8 g/dL32.0-35.0White HospitalMCV Auto (RBC) [Entitic vol]Ordered By: Kush Glez on 95-75-8237OYR (RBC) [Entitic vol]96.8 fA50-285YmoiqpijfWhite HospitalMonocytes Auto (Bld) [#/Vol]Ordered By: Kush Glez on 94-28-1204Vzgoahzcd (Bld) [#/Vol]0.5 10*3/uL0.0-0.8Fire[facility] Medical CenterMonocytes/100 WBC Auto (Bld) Ordered By: Kush Glez on 32-05-3875Jmcnwacco/100 WBC (Bld)6.3 %.White HospitalNeutrophils Auto (Bld) [#/Vol]Ordered By: Kush Glez on 36-44-6833Nkquogthqgf (Bld) [#/Vol]5.3 10*3/uL1.8-7.7FThe Bellevue HospitalNeutrophils/100 WBC Auto (Bld)Ordered By: Kush Glez on 40-84-5916Vixofufmvpx/100 WBC (Bld)61.5 %.White HospitalNo Panel InformationOrdered By: Kush Glez on 55-63-8199Uiuphptjr GFR (CKD-EPI) > 60.0 mL/MinWhite HospitalPharmacy Creatinine Clearance (Chem55.07White HospitalNucleated erythrocytes [Presence] in Blood by Automated countOrdered By: Kush Glez on 34-00-2002Avbqryfns RBC Auto Ql (Bld)0.1 /100{WBC}0-0.5FThe Bellevue HospitalPlatelet mean volume Auto (Bld) [Entitic vol]Ordered By: Kush Glez on 22-47-7462Ityqeptj mean volume (Bld) [Entitic vol]7.9 fL6.3-10.7FThe Bellevue Hospital Platelets Auto (Bld) [#/Vol]Ordered By: Kush Glez on 40-61-0389Fwyavpgnk (Bld) [#/Vol]288 10*3/yM079-712NlvoopxfcWhite HospitalPotassium [Moles/volume] in Serum or PlasmaOrdered By: Kush Glez on 02-13-2024 Potassium [Moles/Vol]4.2 mmol/L3.5-5.1FThe Bellevue HospitalProtein [Mass/volume] in Serum or PlasmaOrdered By: Kush Glez on 58-31-7841Cjizrqx [Mass/Vol]6.6 g/dL6.4-8.9White HospitalRBC Auto (Bld) [#/Vol] Ordered By: Kush Glez on 07-31-9853QVO (Bld) [#/Vol]4.24 10*6/uL3.60-5.00 Veterans Health Administrationerum or plasma albumin/globulin mass ratio Ordered By: Kush Glez on 71-91-7503Twvqjqr/Globulin [Mass ratio]1.9 {ratio} [facility] Health Administrationerum or plasma anion gap determinationOrdered By: Kush Glez on 46-45-0171Bpakl gap [Moles/Vol]9.9 mmol/L6.0-15.0Veterans Health Administrationerum or plasma cancer antigen 15-3 measurement (units/volume)Ordered By: Kush Glez on 45-60-3441Twmhxk Ag 15-3 Qn9.7 U/mL 0.0-25.0White HospitalComment on above:[employer] Electrochemiluminescence Immunoassay(ECLIA)Values obtained with different assay methods or kits cannotbe used interchangeably. Results cannot be interpreted asabsolute evidence of the presence or absence of malignantdisease.Performed at: [facility] [id number] Director: Anthony Keane PhD, Phone: [phone] Ag 15-3 QnSerum or plasma cancer antigen 15-3 measurement (units/volume)0.0-25.0White HospitalComment on above:[employer] Electrochemiluminescence Immunoassay(ECLIA)Values obtained with different assay methods or kits cannotbe used interchangeably. Results cannot be interpreted asabsolute evidence of the presence or absence of malignantdisease.Performed at: [facility] [id number] Director: Anthony Keane PhD, Phone: [phone] [Moles/volume] in Serum or PlasmaOrdered By: Kush Glez on 75-86-9689Rvsvcw [Moles/Vol]138 mmol/C592-301AibntuumqWhite HospitalUrea nitrogen [Mass/volume] in Serum or PlasmaOrdered By: Kush Glez on 91-92-0233Qgdz nitrogen [Mass/Vol]17 mg/dL7-25White HospitalWBC Auto (Bld) [#/Vol]Ordered By: Kush Glez on 14-24-0426IID (Bld) [#/Vol]8.7 10*3/uL 3.8-11.6FThe Bellevue HospitalConsultation Noteon 02-09-2024 Consultation [id number]#1.00TIFAdena Regional Medical Centertress EKG Tracingson 23-85-4436Mnncat EKG Tracings [id number]#1.00[facility] HospitalConsultation Noteon 96-12-8696Cmsetwrjspqm Note [id number]#1.00[facility] HospitalPathology Noteon 41-39-4054Wsuxfpaep Note [id number]#1.00[facility] HospitalPathology [id number]#1.00[facility] HospitalAmbulatory Visit Summaryon 71-14-8425Irvgtcpozq Visit Summary MICHAELADELINA :1960 Visit Date:01/23/2024 Ambulatory Visit Instructions Your [...] EDT With: APARNA PRATT, Roshan Horner Where: [facility] Surgery [address] [address]- \.br\ Medications\.br\ What How Much When In [...] for choosing us for your care.\.br\ \.br\[facility] CenterGeneral Surgery Office/Clinic Noteon 06-13-8096Gjsmprr Surgery Office/Clinic NoteChief Complaint post operative follow up HPI Staff 13 day post operative follow up post excisional biopsy left breast mass. Denies discomfort, bleeding or drainage. History of Present Illness 13 days s/p excisional biopsy left breast granuloma and ductal excision; pathology with 1.7 cm invasive ductal carcinoma, grade 2; ER/SC +; HER2 pending; superior margin positive for [...] up after evaluations; call with problems/questions. Ordered: [facility] External Ambulatory Referral [facility] External Ambulatory Referral Follow-up No qualifying data [...] Abuse Current, Marijuana, Daily, (more content not included)...[facility] SystemComment on above:Result Comment: Electronically Signed By: APARNA PRATT, Roshan Hargrove\Date and Time Signed: 01/23/24 15:20 EDTPathology Noteon 58-26-8766Lczojjsfa [id number]#1.00TIFVeterans Health AdministrationPathology Noteon 57-03-2966Txtlihoxv Note [id number]#1.00[facility] HospitalGeneral Surgery Office/Clinic Noteon 73-36-4694Uqujjog Surgery Office/Clinic NoteChief Complaint post operative follow [...] - Not Given Postpone due to refusal [facility] SystemComment on above:Result Comment: Electronically Signed By: APARNA PRATT, Roshan Hargrove\Date and Time Signed: 01/18/24 15:09 EDT Operative Reporton 50-69-2061Xrstybhxs Report [id number]#1.00TIFRegency Hospital Cleveland EastConsent for Procedure/Surgeryon 92-66-6508Vgvicxn for Procedure/Surgery [id number]#1.00TIFFAvita Health SystemLab Reportson 78-59-5864Wyu Reports [id number]#1.00[facility] HospitalAmbulatory Visit Summaryon 03-73-9349Zcvnggmsjz Visit Summary ADELINA MIR :1960 MRN:[id number] Visit Date:01/02/2024 Ambulatory Visit Instructions Your Care [...] EDT With: Michael Holley MD Where: [facility] HospitalGeneral Surgery Office/Clinic Noteon 57-89-9783Xrzdqdn Surgery Office/Clinic NoteChief Complaint update H&P HPI [...] 11/08/2022 Substance Abuse Current, (more content not included)...[facility] Health SystemComment on above:Result Comment: Electronically Signed By: APARNA PRATT, Roshan Hargrove\Date and Time Signed: 01/02/24 16:28 EDTInsurance Correspondenceon 12-25-2023 Insurance [id number]#1.00TIFFNormal [facility] Medicine Office/Clinic Noteon 72-16-5876Xhvytn Medicine Office/Clinic NoteHPI Staff Adelina is a [...] losartan and baby aspirin as prescribed. Her staff attorney diagnosed her with white coat syndrome. Review [...] with voice recognition artificial intelligence software, specifically [employer], [employer] and or HW. Substitutions may have occurred due to the inherent limitations of voice recognition and artificial intelligence software. Documentation services were performed after patient or guardian consented to allow [employer] to record this visit. JONATHAN program research specialist and provider reviewed before signing. JONATHAN: [...] - Not Given Postpone due to refusal [facility] SystemComment on above:Result Comment: Electronically Signed By: Michael Holley MD\.br\Date and Time Signed: 11/28/23 15:21 EDT\.br\Electronically Co-Signed By: Lucy Hines\.br\Date and Time Co- Signed: 11/27/23 15:18EDTMedication Consenton 98-74-3567Tqhehtepck Consent [id number]#1.00TIFFNoKindred HealthcareAmbulatory Visit Summaryon 35-02-4943Xfpkvfzacd Visit Summary ADELINA MIR :1960 Visit Date:11/27/2023 [...] With: Kishan PRATT, Michael Barker Where: [facility] HospitalConsent for Procedure/Surgeryon 73-63-1040Nmgbasf for Procedure/[id number]#1.00TIFRegency Hospital Cleveland EastConfort yates hospitalt for Treatmenton 27-17-3531Lkcszdu for Treatment [id number]#1.00TIFRegency Hospital Cleveland EastFormson 83-43-7056GeibcTcrz with office visit note to Dr. Braun's office [id number]#1.00[facility] HospitalHeart and Vascular Office/Clinic Noteon 95-29-4338Ptsck and Vascular Office/Clinic NoteHistory of Present Illness [...] Oral, Daily, 3 refills Allergies Entex (Unknown) Skela (more content not included)...[facility] Health SystemComment on above:Result Comment: Electronically Signed By: BEVERLY PRATT, Osmin Fried.br\Date and Time Signed: 10/31/23 14:46 ESTNM Myocardial Spect Rest/Stress 1 Dayon 73-36-5899JG Myocardial Spect Rest/Stress 1 DayExam Date/Time: 10/24/2023 [...] Cardiolite): 10 Stress Dose (mCi Tc99M Cardiolite): 29.9[facility] Physician Orderon 21-41-3916Spnwaghvh Order [id number]#1.00TIFFAvita Health SystemUS Carotid Duplex Bilateralon 42-85-3159YU Carotid Duplex BilateralExam Date/Time: 10/24/2023 10:23 EST Reason for Exam: R09.89;Bruit Report [facility] [phone] IMPRESSION: NEGATIVE STUDY. NO EVIDENCE OF SIGNIFICANT [...] Carotid Diagnostic Criteria Committee. Vascular Medicine 2020; https://journals.Thermalin Diabetespub.com/doi/full/10.1177/4027988U007369684 Ordering Provider: Osmin PAUL FINAL REPORT Dictated: 10/25/2023 10:17 am Arnold Tyler Signed (Electronic Signature): 10/25/2023 10:17 am Signed by: Arnold Tyler Transcribed by: ROSMERY Technologist: SILVESTRE Technical Comments Velocities Right Vert. Antegrade Yes Velocities Left Vert. Antegrade NoNormalTrumbull Regional Medical CenterConsent for Treatmenton 53-68-8248Ezhrhhk for Treatment [id number]#1.00TIFFNormalChildren's Hospital of Columbus Medicine Office/Clinic Noteon 97-53-5926Fgzvhj Medicine Office/Clinic NoteHPI Staff Sahu is a 62 year old female presenting [...] stress test, scheduled to be conducted at [facility]. She had two previous appointments and was [...] not able to get scheduled at the [facility],so at this time this is at [...] get all of this scheduled GEORGETTE through [email or web address] now since the patient was unable to get it done at [facility]. The patient will let us know when this is done and we will try to get her cleared as soon as possible for her lumpectomy. Portions of this record may have been created with voice recognition artificial intelligence software, specifically [employer], [employer] and or HW. Substitutions may have occurred due to the inherent limitations of voice recognition and artificial intelligence software. Documentation services were performed after patient or guardian consented to allow [employer] to record this visit. JONATHAN program research specialist and provider reviewed before signing. JONATHAN: [...] Household tobacco concerns: (more content not included)... [facility] Health SystemComment on above:Result Comment: Electronically Signed By: Michael Holley MD\.br\Date and Time Signed: 10/11/23 10:22 EST\.br\Electronically Co-Signed By: Lucy Hines\.br\Date and Time Co- Signed: 10/02/23 14:56EST\.br\Electronically Co-Signed By: Lucy Hines\.br\Date and Time Co-Signed: 10/04/23 19:46 ESTAmbulatory Visit Summaryon 98-52-3271Exqmdnmkxf Visit Summary ADELINA MIR :1960 Visit Date:10/02/2023 [...] PM EDT With: Michael Holley MD Where: [facility] Medicine [facility] Educationon 01-83-5376Xcodoob EducationNutrition BMI for Adults What is BMI? [...] numbers. This can be done either in [place] (U.S[place] or metric measurements. Note that charts and online BMI calculators are available to help you find your BMI quickly and easily without having to do these calculations yourself. To calculate your BMI in [place] ([place] measurements: 1. Measure your weight in [...] for Disease Control and Prevention: www.cdc.gov ? [place] Heart Association: www.heart.org ? National Heart, Lung, and Blood [place]: www.nhlbi.nih.gov Summary ? Body mass index (BMI) is a number that is calculated from a person's weight and height. ? BMI may help estimate how much of a person's weight is composed of fat. BMI can help identify those who may be at higher risk for certain medical problems. ? BMI can be measured using [place]er measurements or metric measurements. ? BMI charts are used to identify whether you are underweight, normal weight, overweight, or obese. This information is not intended to replace advice given to you by your health care provider. Make sure you discuss any questions you have with your health care provider. Document Revised: 05/13/2020 Document Reviewed: 03/20/2020 [employer] Patient Education ? 2022 [employer].[facility] Physician Orderon 32-27-3834Jdyiuhmnk Order [id number]#1.00[facility] Willard HospitalFormson 66-96-3927Kldsujioh lipid panel to hector schafer, received confirmation fax went thru [id number]#1.00TIFRegency Hospital Cleveland EastInsurance Correspondenceon 27-76-8505Yslkxwteb Correspondence [id number]#1.00[facility] HospitalAmbulatory Visit Summaryon 26-20-4906Fiqqrrzann Visit Summary ADELINA MIR :1960 Visit Date:09/07/2023 [...] EST With: Michael Holley MD Where: [facility] Medicine [address] [place] [address] \.br\ Medications\.br\ What How Much When Instructions\.br\ [...] thank you for choosing us for yourcare.\.br\ \.br\[facility] CenterConsent for Treatmenton 09-07-2023 Consent for [id number]#1.00TIFFNormal [facility] Medicine Office/Clinic Noteon 47-26-0225Qajplo Medicine Office/Clinic NoteHPI Staff Adelina is a 62 year old female presenting for surgical clearance, abnormal EKG Saw Dr Paul today at [facility] and Has orders for stress test and [...] hypertension) - Recently diagnosed - 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 - Will add meds if needed. [...] - Not Given Postpone due to refusal [facility] SystemComment on above:Result Comment: Electronically Signed By: Kishan PRATT, Michael Ball.br\Date and Time Signed: 09/07/23 15:56 ESTHeart and Vascular Office/Clinic Noteon 29-11-1608Ftrhs and Vascular Office/Clinic NoteHistory of Present Illness [...] discharge Scoliosis Historical Po (more content not included)...[facility] SystemComment on above:Result Comment: Electronically Signed By: BEVERLY PRATT, Osmin Fried.br\Date and Time Signed: 09/07/23 14:13 ESTInsurance Correspondenceon 99-04-4340Uejhfahkl [id number]#1.00TIFRegency Hospital Cleveland EastPhysician Orderon 14-52-9976Sknvkqpqd Order [id number]#1.00[facility] HospitalPhysician [id number]#1.00TIFVeterans Health AdministrationEC 12-Leadon 93-08-8974VTJ 12-Lead [id number]#1.00[facility] 12-[id number]#1.00[facility] Willard HospitalC Urineon 06-19-0376Kapoocks identified Cx Nom (U) Microbiology PROCEDURE: Urine Culture [R1] SOURCE: U CleanCatch BODY SITE: COLLECTED DATE/TIME: 08/09/2023 16:21 EST RECEIVED DATE/TIME: 08/09/2023 19:37 EST START DATE/TIME: 08/09/2023 19:37 EST FREE TEXT SOURCE: Kishan PRATT, Michael Valente MD FINAL REPORTS Final Report [] Verified Date/Time: 08/11/2023 09:17 EST 2,000 cfu/ml Mixed skin contaminants Performing Locations R1: This test was performed at: [facility], [address] [place] [address], [address]- , , DnsgffGkmfzeAvita Health SystemComment on above:Performed By: #### [id number] ####[facility] [address] [place], [place] [address]Ybkzpif for Procedure/Surgeryon 54-36-6399Ckzrfhy for Procedure/Surgery [id number]#1.00TIFFAvita Health SystemAmbulatory Visit Summaryon 70-57-3245Ogavzgurwr Visit Summary ADELINA MIR Yrn :1960 Visit Date:08/09/2023 Ambulatory Visit Instructions Your Diagnosis Dysuria Blood pressure elevated without history of HTN BMI 23.0-23.9, adult Former smoker Tests Performed Urnls Dip Stick Auto w/o Microscopy POC 78919 Your Care Team Attending Physician - Michael [...] PM EST With: Michael Holley MD Where[facility] Summary ADELINA MIR :1960 Visit [...] PM EST With: Michael Holley MD Where: [address] [address]- \.br\ Medications\.br\ What How Much When Instructions\.br\ [...] thankyou for choosing us for your care.\.br\ \.br\[facility] Medicine Office/Clinic Noteon 04-60-6161Gihdns Medicine Office/Clinic NoteHPI Staff Adelina is a [...] Urnls Dip Stick Auto w/o Microscopy POC 62302 2. Blood pressure elevated without history of HTN (R03.0: Elevated blood- pressure reading, without diagnosis of hypertension) - Resolved 3. BMI 23.0-23.9, adult (Z68.23: Body mass index [BMI] 23.0-23.9, adult) - BMI education uploaded. 4. Former smoker (Z87.891: Personal history of nicotine dependence) - Please continue to not smoke. Ordered: Urnls Dip Stick Auto w/o Microscopy POC 38270 Orders: fluconazole, 150 mg = 1 tab(s), [...] Dipstick: 2+ (100 mg/dl) (08/09/23 16:03:00) Specific [place] Urine Dipstick: 1.020 (08/09/23 16:03:00) Urine Appearance Urine Dipstick: Slightly cloudy (08/09/23 16:03:00) Urine Color Urine Dipstick: Yellow (08/09/23 16:03:00) Urobilinogen Urine Dipstick: Normal 0.2-1 EU/dl (08/09/23 16:03:00) pH Urine Dipstick: 6 (08/09/23 16:03:00)NormalTrumbull Regional Medical CenterComment on above:Result Comment: Electronically Signed By: Kishan PRATT, Michael Ball.oh\Date and Time Signed: 08/09/23 16:05 ESTGeneral Surgery Office/Clinic Noteon 15-30-1324Btwovtu Surgery Office/Clinic NoteChief Complaint f/u nipple discharge [...] - Not Given Postpone due to refusal [facility] Health SystemComment on above:Result Comment: Electronically Signed By: APARNA PRATT, Roshan Hargrove\Date and Time Signed: 08/09/23 15:03 EST Patient Educationon 63-18-6841Afefghz EducationNutrition BMI for Adults What is BMI? [...] numbers. This can be done either in [place] ([place] or metric measurements. Note that charts and online BMI calculators are available to help you find your BMI quickly and easily without having to do these calculations yourself. To calculate your BMI in [place] ([place] measurements: 1. Measure your weight in [...] for Disease Control and Prevention: www.cdc.gov ? [place] Heart Association: www.heart.org ? National Heart, Lung, and Blood [place]: www.nhlbi.nih.gov Summary ? Body mass index (BMI) is a number that is calculated from a person's weight and height. ? BMI may help estimate how much of a person's weight is composed of fat. BMI can help identify those who may be at higher risk for certain medical problems. ? BMI can be measured using [place] measurements or metric measurements. ? BMI charts are used to identify whether you are underweight, normal weight, overweight, or obese. This information is not intended to replace advice given to you by your health care provider. Make sure you discuss any questions you have with your health care provider. Document Revised: 05/13/2020 Document Reviewed: 03/20/2020 [employer] Patient Education ? 2022 [employer].[facility] Nurse Consultation Noteon 70-08-7139Sncvz Consultation NoteReason for Visit Here for BP [...] - Not Given Postpone due to refusal [facility] Medicine Office/Clinic Noteon 07-24-2023 [facility] Medicine Office/Clinic NoteHPI Staff Adelina is a [...] - Not Given Postpone due to refusal [facility] SystemComment on above:Result Comment: Electronically Signed By: Kishan PRATT, Michael Foley\Date and Time Signed: 07/24/23 14:32 EST General Surgery Office/Clinic Noteon 53-91-1287Rxbwlxv Surgery Office/Clinic NoteChief Complaint breast biopsy follow [...] anxiety disorder Hx of osteoarthritis Idiopathic polyneuropathy 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 Mass of [...] - Not Given Postpone due to refusal [facility] SystemComment on above:Result Comment: Electronically Signed By: APARNA PRATT, Roshan Hargrove\Date and Time Signed: 07/13/23 16:04 EST Ambulatory Visit Summaryon 96-45-9923Vnmwaunrrc Visit Summary ADELINA MIR :1960 Visit Date:07/12/2023 [...] EST With: Kishan PRATT, Michael Barker Where: [address] \.br\ Medications\.br\ What How Much When Instructions\.br\ [...] for choosing us for your care.\.br\ \.br\[facility] CenterRAD - Ultrasound Reporton 10-29-5359JBU - Ultrasound [id number]#1.00TIFFNoeugenioHarris Regional Hospitalteofilo [facility] CenterPathology Noteon 42-75-6171Deqsbpoej Note [id number]#1.00TIFFNormFrye Regional Medical Centerer [facility] CenterOutside Mammographyon 88-95-5622Nwnkrrj Mammography [id number]#1.00TIFRegency Hospital Cleveland EastRAD - Ultrasound Reporton 48-36-6384NQG - Ultrasound Report [id number]#1.00TIFRegency Hospital Cleveland EastFacesheeton 25-12-1838Iokqgmtmj [id number]#1.00TIFRegency Hospital Cleveland EastAmbulatory Visit Summaryon 75-11-0453Uwerxwztki Visit Summary ADELINA MIR :1960 Visit Date:06/20/2023 [...] EST With: Kishan PRATT, Michael Barker [facility] Reportson 63-80-6970Rjv Reports [id number]#1.00CD:127[facility] Health SystemPhysician Referralon 08-60-9402Wquaobpdg Referral [id number]#1.00CD:127[facility]ita Health SystemCovid-19 PCR (CVDTBH)on 36-13-1851GAXT-CoV-2 (COVID-19) RNA LUDIN+probe Ql (Unsp spec)DetectedCritically abnormalNOT DETECTEDThe [facility]omerene Memorial HospitalComment on above:Result Comment: This test is not yet approved or cleared by the [place] FDA. When there are no FDA-approved or cleared tests available, and other criteria are met, FDA can make tests available under an emergency access mechanism called an Emergency Use Authorization (EUA). The EUA for this test is supported by the [place] of Health and Human Service's (HHS's) declaration [...] longer be used).Performed By: #### CVDTBH #### [facility] [address] [place] [address] Dr. Anderson Packer Vital Signs Date TimeVital SignValuePerforming NkgncwisjEkeybvui79-28-5154 11:30-0400Body ifwgwuufvfh60 [degF]Michael Holley MD Work Phone: [facility]08-20-2025 11:30-0400 Body yamtah00.43 kgMichael Holley MD Work Phone: 1(567)401-[address] [place], [place] 4503008-20-2025 11:30-0400 Diastolic blood rqfdtiik16 mm[Hg]Michael Holley MD Work Phone: 1(981)[address] [place], [place] 6412408-20-2025 11:30-0400 Heart rate63 /Amy Holley MD Work Phone: 1(793)[address] [place], [place] 6412408-20-2025 11:30-0400 Respiratory rate20 /Amy Holley MD Work Phone: 1(084)[address] [place], [place] 6412408-20-2025 11:30-0400 SaO2% (BldA) [Mass fraction]96 %Michael Holley MD Work Phone: 1(480)[address] [place], [place] 6412408-20-2025 11:30-0400 Systolic blood mm[Hg]Michael Holley MD Work Phone: 1(898)[address] [place], [place] 6412406-03-2025 11:04-0400 Body wtexkj288.18 cmSquinten Holley MD Work Phone: 1(391)[address] [place], [place] 9262706-03-2025 11:04-0400 Body mass index (BMI) [Ratio]18.8 kg/m0XoybeoMichael Holley MD Work Phone: 1(451)[address] [place], [place] 9262706-03-2025 11:04-0400 Body dnvwzu74.43 kgMichael Holley MD Work Phone: 1(931)[address] [place], [place] 9262706-03-2025 11:04-0400 Diastolic blood rqyglcvb926 mm[Hg]Michael Holley MD Work Phone: 1(404)[address] [place], [place] 9262706-03-2025 11:04-0400 Heart rate92 /Amy Holley MD Work Phone: 1(048)[address] [place], [place] 9262706-03-2025 11:04-0400 Respiratory rate18 /Amy Holley MD Work Phone: 1(577)[address] [place], [place] 9262706-03-2025 11:04-0400 SaO2% (BldA) [Mass fraction]99 %Michael Holley MD Work Phone: 1(555)[address] [place], [place] 9262706-03-2025 11:04-0400 Systolic blood rvdwatxs851 mm[Hg]Michael Holley MD Work Phone: 1(921)[address] [place], [place] 9262704-30-2025 10:24-0400 Body udbppt88.96 kgMichael Holley MD Work Phone: 1(695)[address] [place], [place] 9262704-30-2025 09:39-0400 Body zjujsz172.18 cmSquinten Holley MD Work Phone: 1(428)[address] [place], [place] 9262704-30-2025 09:39-0400 Body mass index (BMI) [Ratio]20.3 kg/c2CwwsojMichael Holley MD Work Phone: 1(395)[address] [place], [place] 9262704-30-2025 09:39-0400 Body ezafccifrdj74.4 [degF]Michael Holley MD Work Phone: 1(409)[address] [place], [place] 9262704-30-2025 09:39-0400 Diastolic blood ojohvxkt60 mm[Hg]Michael Holley MD Work Phone: 1(244)[address] [place], [place] 9262704-30-2025 09:39-0400 Heart rate66 /Amy Holley MD Work Phone: 1(706)[address] [place], [place] 9262704-30-2025 09:39-0400 Respiratory rate18 /Amy Holley MD Work Phone: 1(275)[address] [place], [place] 9262704-30-2025 09:39-0400 SaO2% (BldA) [Mass fraction]98 %Michael Holley MD Work Phone: 1(405)[address] [place], [place] 9262704-30-2025 09:39-0400 Systolic blood cpoighgc300 mm[Hg]Michael Holley MD Work Phone: 1(950)[address] [place], [place] 9262704-23-2025 10:25-0400 Body eawjyovuvfq12 [degF]Michael Holley MD Work Phone: 1(297)[address] [place], [place] 9262704-23-2025 10:25-0400 Body utojan71.51 kgMichael Holley MD Work Phone: 1(907)[address] [place], [place] 9262704-23-2025 10:25-0400 Diastolic blood zwyizdcf28 mm[Hg]Michael Holley MD Work Phone: 1(130)397-[address] [place], [place] 6161404-23-2025 10:25-0400 Heart rate68 /Amy Holley MD Work Phone: 1(845)[address]04-23-2025 10:25-0400 Respiratory rate16 /Amy Holley MD Work Phone: 1(738)[address] [place], [place] 9262704-23-2025 10:25-0400 SaO2% (BldA) [Mass fraction]100 %Michael Holley MD Work Phone: 1(475)[address] [place], [place] 9262704-23-2025 10:25-0400 Systolic blood kjvzyodc455 mm[Hg]Michael Holley MD Work Phone: 1(297)[address] [place], [place] 9262704-17-2025 11:26-0400 Body mnemtl444.18 cmSquinten Holley MD Work Phone: 1(373)[address] [place], [place] 9262704-17-2025 11:26-0400 Body qldidsbuhjj79.6 [degF]Michael Holley MD Work Phone: 1(015)[address] [place], [place] 9262704-17-2025 11:26-0400 Body wwwikz27.87 kgMichael Holley MD Work Phone: 1(817)[address] [place], [place] 9262704-17-2025 11:26-0400 Diastolic blood xbllmijg95 mm[Hg]Michael Holley MD Work Phone: 1(683)[address] [place], [place] 9262704-17-2025 11:26-0400 Heart rate74 /Amy Holley MD Work Phone: 1(076)[address] [place], [place] 9262704-17-2025 11:26-0400 Respiratory rate20 /Amy Holley MD Work Phone: 1(099)[address] [place], [place] 9262704-17-2025 11:26-0400 SaO2% (BldA) [Mass fraction]98 %Michael Holley MD Work Phone: 1(590)[address] [place], [place] 9262704-17-2025 11:26-0400 Systolic blood asnyiuwk735 mm[Hg]Michael Holley MD Work Phone: 1(214)[address]04-09-2025 10:49-0400 Diastolic blood lwxotdqu70 mm[Hg]Michael Holley MD Work Phone: 1(434)[address] [place], [place] 9262704-09-2025 10:49-0400 Systolic blood bqycypln588 mm[Hg]Michael Holley MD Work Phone: 1(031)[address] [place], [place] 9262704-09-2025 10:43-0400 Body axivop028.18 Santhosh Holley MD Work Phone: 1(934)[address] [place], [place] 9262704-09-2025 10:43-0400 Body mass index (BMI) [Ratio]20.3 kg/v7ZxclerMichael Holley MD Work Phone: 1(850)[address] [place], [place] 9262704-09-2025 10:43-0400 Body vaopfbzoyfk75.9 [degF]Michael Holley MD Work Phone: 1(224)[address] [place], [place] 9262704-09-2025 10:43-0400 Body .96 kgMichael Holley MD Work Phone: 1(503)[address] [place], [place] 9262704-09-2025 10:43-0400 Heart rate94 /Amy Holley MD Work Phone: 1(602)[address] [place], [place] 9262704-09-2025 10:43-0400 Respiratory rate18 /Amy Holley MD Work Phone: 1(300)[address] [place], [place] 9262704-09-2025 10:43-0400 SaO2% (BldA) [Mass fraction]98 %Michael Holley MD Work Phone: 1(657)[address] [place], [place] 9262704-02-2025 10:35-0400 Body hlwuhleomdn17.8 [degF]Michael Holley MD Work Phone: 1(678)[address] [place], [place] 9262704-02-2025 10:35-0400 Diastolic blood owqiltdk85 mm[Hg]Michael Holley MD Work Phone: 1(879)[address] [place], [place] 9262704-02-2025 10:35-0400 Heart rate78 /Amy Holley MD Work Phone: 1(283)[address]04-02-2025 10:35-0400 Respiratory rate18 /Amy Holley MD Work Phone: 1(935)[address] [place], [place] 9262704-02-2025 10:35-0400 SaO2% (BldA) [Mass fraction]98 %Michael Holley MD Work Phone: 1(314)[address] [place], [place] 9262704-02-2025 10:35-0400 Systolic blood fzlvdixg763 mm[Hg]Michael Holley MD Work Phone: 1(270)[address] [place], [place] 9262703-26-2025 11:05-0400 Body itvzcnxcltp46.9 [degF]Michael Holley MD Work Phone: 1(686)[address] [place], [place] 9262703-26-2025 11:05-0400 Body kbeerm53.28 kgMichael Holley MD Work Phone: 1(497)[address] [place], [place] 9262703-26-2025 11:05-0400 Diastolic blood qhsaxmmz57 mm[Hg]Michael Holley MD Work Phone: 1(356)[address] [place], [place] 9262703-26-2025 11:05-0400 Heart rate75 /Amy Holley MD Work Phone: 1(625)[address] [place], [place] 9262703-26-2025 11:05-0400 Respiratory rate18 /Amy Holley MD Work Phone: 1(665)[address] [place], [place] 9262703-26-2025 11:05-0400 SaO2% (BldA) [Mass fraction]99 %Michael Holley MD Work Phone: 1(828)[address] [place], [place] 9262703-26-2025 11:05-0400 Systolic blood ccwsrdoe553 mm[Hg]Michael Holley MD Work Phone: 1(880)[address] [place], [place] 9262703-19-2025 15:34-0400 Body .18 cmSquinten Holley MD Work Phone: 1(269)[address] [place], [place] 9262702-26-2025 10:44-0500 Body yaivhq04.78 kgMichael Holley MD Work Phone: 1(419)[address]02-26-2025 10:03-0500 Body zyxnukylwmt99.4 [degF]Michael Holley MD Work Phone: 1(381)[address] [place], [place] 9262702-26-2025 10:03-0500 Diastolic blood aguclgjg05 mm[Hg]Michael Holley MD Work Phone: 1(263)[address] [place], [place] 9262702-26-2025 10:03-0500 Heart rate82 /Amy Holley MD Work Phone: 1(330)[address] [place], [place] 9262702-26-2025 10:03-0500 Respiratory rate20 /Amy Holley MD Work Phone: 1(390)[address] [place], [place] 9262702-26-2025 10:03-0500 SaO2% (BldA) [Mass fraction]98 %Michael Holley MD Work Phone: 1(231)[address] [place], [place] 9262702-26-2025 10:03-0500 Systolic blood dayqzpwp050 mm[Hg]Michael Holley MD Work Phone: 1(625)[address] [place], [place] 9262702-19-2025 11:00-0500 Body .18 cmSquinten Holley MD Work Phone: 1(084)[address] [place], [place] 9262702-19-2025 10:00-0500 Body ieogqveocfj73.1 [degF]Michael Holley MD Work Phone: 1(195)[address] [place], [place] 9262702-19-2025 10:00-0500 Diastolic blood qafeyloz65 mm[Hg]Michael Holley MD Work Phone: 1(864)[address] [place], [place] 9262702-19-2025 10:00-0500 Heart rate87 /Amy Holley MD Work Phone: 1(627)[address] [place], [place] 9262702-19-2025 10:00-0500 Respiratory rate18 /Amy Holley MD Work Phone: 1(695)[address] [place], [place] 9262702-19-2025 10:00-0500 SaO2% (BldA) [Mass fraction]96 %Michael Holley MD Work Phone: 1(663)[address] [place], [place] 9262702-19-2025 10:00-0500 Systolic blood lugprbku257 mm[Hg]Michael Holley MD Work Phone: 1(766)[address] [place], [place] 9262702-13-2025 13:39-0500 Body kokwph762.18 cmSquinten Holley MD Work Phone: 1(077)[address] [place], [place] 9262702-13-2025 13:39-0500 Body mass index (BMI) [Ratio]22.8 kg/a1IcgdpeMichael Holley MD Work Phone: 1(410)[address] [place], [place] 9262702-13-2025 13:39-0500 Body alnskg54.04 kgMichael Holley MD Work Phone: 1(527)[address] [place], [place] 9262702-13-2025 13:38-0500 Body miccmqtnvgr51.3 [degF]Michael Holley MD Work Phone: 1(198)[address] [place], [place] 9262702-13-2025 13:38-0500 Diastolic blood nizjspoa35 mm[Hg]Michael Holley MD Work Phone: 1(258)[address] [place], [place] 9262702-13-2025 13:38-0500 Heart esbb075 /minSquinten Holley MD Work Phone: 1(439)[address] [place], [place] 9262702-13-2025 13:38-0500 Systolic blood bmufsqys662 mm[Hg]Michael Holley MD Work Phone: 1(944)[address] [place], [place] 9262702-12-2025 10:31-0500 Body .04 Uma Holley MD Work Phone: 1(101)[address] [place], [place] 9262702-12-2025 09:50-0500 Body asgwsmfwjyn04.8 [degF]Michael Holley MD Work Phone: 1(982)[address] [place], [place] 9262702-12-2025 09:50-0500 Body nzlkno59.68 kgMichael Holley MD Work Phone: 1(864)[address] [place], [place] 9262702-12-2025 09:50-0500 Diastolic blood pmwimpei07 mm[Hg]Michael Holley MD Work Phone: 1(458)[address] [place], [place] 9262702-12-2025 09:50-0500 Heart dftu517 /Amy Holley MD Work Phone: 1(205)[address] [place], [place] 9262702-12-2025 09:50-0500 Respiratory rate18 /Amy Holley MD Work Phone: 1(072)[address] [place], [place] 9262702-12-2025 09:50-0500 SaO2% (BldA) [Mass fraction]100 %Michael Holley MD Work Phone: 1(234)[address] [place], [place] 9262702-12-2025 09:50-0500 Systolic blood agpspzoj492 mm[Hg]Michael Holley MD Work Phone: 1(624)[address] [place], [place] 9262701-30-2025 14:55-0500 Body fxitjzlmpvj05.8 [degF]Michael Holley MD Work Phone: 1(234)[address] [place], [place] 9262701-30-2025 14:55-0500 Body ndxysp68.6 kgMichael Holley MD Work Phone: 1(908)[address] [place], [place] 9262701-30-2025 14:55-0500 Diastolic blood ewdsgzxb93 mm[Hg]Michael Holley MD Work Phone: 1(855)[address] [place], [place] 9262701-30-2025 14:55-0500 Heart acuv493 /Amy Holley MD Work Phone: 1(309)[address] [place], [place] 9262701-30-2025 14:55-0500 Respiratory rate18 /Amy Holley MD Work Phone: 1(415)[address] [place], [place] 9262701-30-2025 14:55-0500 SaO2% (BldA) [Mass fraction]97 %Michael Holley MD Work Phone: 1(248)[address] [place], [place] 9262701-30-2025 14:55-0500 Systolic blood vtnpqysj699 mm[Hg]Michael Holley MD Work Phone: 1(670)[address] [place], [place] 9262701-22-2025 08:00-0500 Body elqyaqkjjnt25.3 [degF]Michael Holley MD Work Phone: 1(873)[address] [place], [place] 9262701-22-2025 08:00-0500 Diastolic blood alpsolmq54 mm[Hg]Michael Holley MD Work Phone: 1(622)[address] [place], [place] 9262701-22-2025 08:00-0500 Heart lroj768 /Amy Holley MD Work Phone: 1(376)[address] [place], [place] 9262701-22-2025 08:00-0500 Respiratory rate20 /Amy Holley MD Work Phone: 1(746)[address] [place], [place] 9262701-22-2025 08:00-0500 SaO2% (BldA) [Mass fraction]95 %Michael Holley MD Work Phone: 1(191)[address] [place], [place] 9262701-22-2025 08:00-0500 Systolic blood bsruntaw675 mm[Hg]Michael Holley MD Work Phone: 1(621)[address] [place], [place] 9262701-22-2025 04:40-0500 Body mjqenv18 kgMichael Holley MD Work Phone: 1(481)[address] [place], [place] 9262701-21-2025 15:52-0500 Body wyhmbt218.18 Santhosh Holley MD Work Phone: 1(810)[address] [place], [place] 9262701-17-2025 04:00-0500 Inhaled oxygen flow rate2 L/Amy Holley MD Work Phone: 1(164)[address] [place], [place] 9262701-14-2025 17:50-0500 Body ybvzmkbbeog25.1 [degF]Michael Holley MD Work Phone: 1(124)[address] [place], [place] 9262701-14-2025 17:50-0500 Diastolic blood aivbcrnh42 mm[Hg]Michael Holley MD Work Phone: 1(776)[address] [place], [place] 9262701-14-2025 17:50-0500 Heart rate91 /Amy Holley MD Work Phone: 1(861)[address] [place], [place] 9262701-14-2025 17:50-0500 Respiratory rate20 /Amy Holley MD Work Phone: 1(204)[address] [place], [place] 9262701-14-2025 17:50-0500 SaO2% (BldA) [Mass fraction]94 %Michael Holley MD Work Phone: 1(271)[address]01-14-2025 17:50-0500 Systolic blood djdhclyz35 mm[Hg]Michael Holley MD Work Phone: 1(949)[address] [place], [place] 9262701-14-2025 16:50-0500 Inhaled oxygen flow rate4 L/minSquinten Holley MD Work Phone: 1(822)[address] [place], [place] 9262701-14-2025 12:38-0500 Body .18 cmSquinten Holley MD Work Phone: 1(672)[address] [place], [place] 9262701-14-2025 12:38-0500 Body kgSamugolden Holley MD Work Phone: 1(437)[address] [place], [place] 9262701-14-2025 11:30-0500 Body obdcyofvqhn58 [degF]Michael Holley MD Work Phone: 1(598)[address] [place], [place] 9262701-14-2025 11:30-0500 Diastolic blood usyglqru12 mm[Hg]Michael Holley MD Work Phone: 1(714)[address] [place], [place] 9262701-14-2025 11:30-0500 Heart rate58 /Amy Holley MD Work Phone: 1(570)[address] [place], [place] 9262701-14-2025 11:30-0500 Inhaled oxygen flow rate4 L/Amy Holley MD Work Phone: 1(002)[address] [place], [place] 9262701-14-2025 11:30-0500 Respiratory rate14 /Amy Holley MD Work Phone: 1(292)[address] [place], [place] 9262701-14-2025 11:30-0500 SaO2% (BldA) [Mass fraction]97 %Michael Holley MD Work Phone: 1(748)[address] [place], [place] 9262701-14-2025 11:30-0500 Systolic blood fostllio35 mm[Hg]Michael Holley MD Work Phone: 1(991)[address] [place], [place] 9262701-02-2025 10:05-0500 Body medjsczclez99.9 [degF]Michael Holley MD Work Phone: 1(422)[address] [place], [place] 9262701-02-2025 10:05-0500 Body .04 kgMichael Holley MD Work Phone: 1(735)[address]01-02-2025 10:05-0500 Diastolic blood gflfhfuy56 mm[Hg]Michael Holley MD Work Phone: 1(350)[address] [place], [place] 9262701-02-2025 10:05-0500 Heart wdjy112 /Amy Holley MD Work Phone: 1(575)[address] [place], [place] 9262701-02-2025 10:05-0500 Respiratory rate18 /Amy Holley MD Work Phone: 1(874)[address] [place], [place] 9262701-02-2025 10:05-0500 SaO2% (BldA) [Mass fraction]95 %Michael Holley MD Work Phone: 1(421)[address] [place], [place] 9262701-02-2025 10:05-0500 Systolic blood dthktnee031 mm[Hg]Michael Holley MD Work Phone: 1(063)[address] [place], [place] 9262712-31-2024 13:42-0500 Body fewqbftzigw33.2 [degF]Michael Holley MD Work Phone: 1(904)[address] [place], [place] 9262712-31-2024 13:42-0500 Body ksfcay79.22 kgMichael Holley MD Work Phone: 1(433)[address] [place], [place] 9262712-31-2024 13:42-0500 Diastolic blood vncondgq57 mm[Hg]Michael Holley MD Work Phone: 1(740)[address] [place], [place] 9262712-31-2024 13:42-0500 Heart dqgs116 /Amy Holley MD Work Phone: 1(486)[address] [place], [place] 9262712-31-2024 13:42-0500 Respiratory rate16 /Amy Holley MD Work Phone: 1(458)[address] [place], [place] 9262712-31-2024 13:42-0500 SaO2% (BldA) [Mass fraction]91 %Michael Holley MD Work Phone: 1(367)[address] [place], [place] 9262712-31-2024 13:42-0500 Systolic blood pbohdskx272 mm[Hg]Michael Holley MD Work Phone: 1(295)[address] [place], [place] 9262712-18-2024 15:06-0500 Body otffflpovdp05 [degF]Michael Holley MD Work Phone: 1(797)[address] [place], [place] 9262712-18-2024 15:06-0500 Body fzvrux27.49 kgMichael Holley MD Work Phone: 1(508)[address] [place], [place] 9262712-18-2024 15:06-0500 Diastolic blood sbexkaxi90 mm[Hg]Michael Holley MD Work Phone: 1(565)[address] [place], [place] 9262712-18-2024 15:06-0500 Heart rate77 /Amy Holley MD Work Phone: 1(358)[address] [place], [place] 9262712-18-2024 15:06-0500 Respiratory rate20 /Amy Holley MD Work Phone: 1(461)[address] [place], [place] 9262712-18-2024 15:06-0500 SaO2% (BldA) [Mass fraction]98 %Michael Holley MD Work Phone: 1(475)[address] [place], [place] 9262712-18-2024 15:06-0500 Systolic blood guquxjjl565 mm[Hg]Michael Holley MD Work Phone: 1(314)[address] [place], [place] 9262712-05-2024 10:23-0500 Body exfzsg271.18 cmSquinten Holley MD Work Phone: 1(867)[address] [place], [place] 9262711-27-2024 14:14-0500 Body tmiskjztfjh60 [degF]Michael Holley MD Work Phone: 1(356)[address] [place], [place] 9262711-27-2024 14:14-0500 Body mjbaxf87.03 kgMichael Holley MD Work Phone: 1(405)[address] [place], [place] 9262711-27-2024 14:14-0500 Diastolic blood zgpnyrvq615 mm[Hg]Michael Holley MD Work Phone: 1(776)[address] [place], [place] 9262711-27-2024 14:14-0500 Heart rate70 /Amy Holley MD Work Phone: [facility]11-27-2024 14:14-0500 Respiratory rate20 /minSquinten Holley MD Work Phone: [facility]11-27-2024 14:14-0500 SaO2% (BldA) [Mass fraction]99 %Michael Holley MD Work Phone: [facility]11-27-2024 14:14-0500 Systolic blood jpoioixk347 mm[Hg]Michael Holley MD Work Phone: [facility]11-18-2024 10:44-0500 Heart rate77 /minMichael NILL [facility]11-18-2024 10:44-5326HcA9% (BldA) [Mass fraction]95 %Roshan NILL [facility]11-18-2024 10:43-0500 Respiratory rate16 /minMichael NILL [facility]11-18-2024 10:43-0500Body wgqlbojcgcd31.52 [degF]Roshan NILL [facility]11-18-2024 10:42-0500Blood Pressure LocationMichael NILL [facility]11-18-2024 10:42-0500 Diastolic blood cciiyyjx63 mm[Hg]Roshan NILL [facility]11-18-2024 10:42-0500Mean blood vfekgukb50 mm[Hg]Roshan NILL [facility]11-18-2024 10:42-0500 Systolic blood iioomlyl548 mm[Hg]Roshan NILL [facility]11-18-2024 09:26-0500Heart rate70 /minMichael NILL [facility]11-18-2024 09:26-4786GvB8% (BldA) [Mass fraction]96 %Roshan NILL [address] [place], [place] 3332811-18-2024 09:24-0500 Respiratory rate16 /minMichael NILL [address] [place], [place] 3332811-18-2024 09:24-0500Body zlzjkdvtygf40.34 [degF]Roshan NILL [address] [place], [place] 3332811-18-2024 09:24-0500Blood Pressure LocationMichael NILL [address] [place], [place] 3332811-18-2024 09:24-0500 Diastolic blood fyqhtxtu33 mm[Hg]Roshan NILL [address] [place], [place] 3332811-18-2024 09:24-0500Mean blood xguhifbj343 mm[Hg]Roshan NILL [address] [place], [place] 3332811-18-2024 09:24-0500 Systolic blood pbsvayou670 mm[Hg]Roshan NILL [address] [place], [place] 3332811-18-2024 09:20-0500Blood Pressure LocationMichaefredo NILL [facility]11-18-2024 09:20-0500Body rvjqdizxffj45.34 [degF]Roshan NILL [address] [place], [place] 3332811-18-2024 09:20-0500 Diastolic blood yprwlqlt65 mm[Hg]Roshan NILL [facility]11-18-2024 09:20-0500Heart rate66 /minMichael NILL [facility]11-18-2024 09:20-0500Mean blood wxuqonzy885 mm[Hg]Roshan NILL [address]11-18-2024 09:20-0500 Respiratory rate11 /minMichael NILL [address] [place], [place] 0143611-18-2024 09:20-8185DfJ5% (BldA) [Mass fraction]93 %Roshan NILL [address]11-18-2024 09:20-0500 Systolic blood xogtxkbt553 mm[Hg]Roshan NILL [address] [place], [place] 3332811-18-2024 09:10-0500Mean blood kculnuyl19 mm[Hg]Roshan NILL [address] [place], [place] 0143611-18-2024 09:10-0500 Respiratory rate21 /minMichael NILL [address] [place], [place] 3332811-18-2024 09:05-0500Mean blood lhoqalng92 mm[Hg]Roshan NILL [address] [place], [place] 3332811-18-2024 09:05-0500 Respiratory rate14 /minMichael NILL [address] [place], [place] 3332811-18-2024 08:54-0500Body mlehuhnpcxl87.98 [degF]Roshan NILL [address] [place], [place] 3332811-18-2024 08:45-0500 Respiratory rate14 /minMichael NILL [address] [place], [place] 3332811-18-2024 06:11-0500Heart rate70 /minMichael NILL [address] [place], [place] 3332811-18-2024 06:10-0500Body wihacwlhsiw47.06 [degF]Roshan NILL [address] [place], [place] 3332811-18-2024 06:10-0500Mean blood rhsyvyyh00 mm[Hg]Roshan NILL [address] [place], [place] 3332811-05-2024 13:49-0500 Diastolic blood djxwlywa70 mm[Hg]Roshan NILL [facility]11-05-2024 13:49-0500Heart rate64 /minMichael NILL [facility]11-05-2024 13:49-0500Mean blood mhrmexul844 mm[Hg]Roshan NILL [facility]11-05-2024 13:49-0500 Systolic blood mm[Hg]Roshan NILL [facility]10-29-2024 13:00-0400Blood Pressure LocationMichael NILL [phone]-QjzhjK[facility]10-29-2024 13:00-0400Diastolic blood hlpuydty59 mm[Hg]Roshan NILL [phone]-MmunyKettering Health [facility] Center10-29-2024 13:00-0400Heart rate72 /minMichael NILL [phone]-KzigtKettering Health Behavioral Medical Center10-29-2024 13:00-0400Respiratory rate16 /minMichael NILL [phone]-NlzkzK[facility] Center10-29-2024 13:00-0400Systolic blood wntxzueh798 mm[Hg]Roshan NILL 172-2440Sebrmh-YplujKettering Health [facility]al Medical Center10-02-2024 22:25-0400Body ggkkrdihcgr68.3 [degF]MD Michael Holley Work Phone: [facility]10-02-2024 22:25-0400 Diastolic blood kcmybcol56 mm[Hg]MD Michael Holley Work Phone: [facility]10-02-2024 22:25-0400 Heart rate74 /minMD Michael Holley Work Phone: 1(419)[address]10-02-2024 22:25-0400 Respiratory rate18 /minMD Michael Holley Work Phone: 1(777)[address] [place], [place] 9262710-02-2024 22:25-0400 SaO2% (BldA) [Mass fraction]94 %MD Michael Holley Work Phone: 1(393)[address] [place], [place] 9262710-02-2024 22:25-0400 Systolic blood vqckdqzu591 mm[Hg]MD Michael Holley Work Phone: 1(094)[address]10-02-2024 18:10-0400 Body .18 cm Michael Holley Work Phone: 1(638)[address] [place], [place] 9262710-02-2024 18:10-0400 Body snbham55.58 kg Michael Holley Work Phone: 1(350)[address] [place], [place] 9262709-26-2024 14:00-0400 Body ihybsv207.18 cm Michael Holley Work Phone: 1(316)[address] [place], [place] 9262709-26-2024 14:00-0400 Body mass index (BMI) [Ratio]23.9 kg/m2MD Michael Holley Work Phone: 1(776)[address] [place], [place] 9262709-26-2024 14:00-0400 Body tjxhoj37.39 kg Michael Holley Work Phone: 1(628)[address] [place], [place] 9262709-26-2024 14:00-0400 Diastolic blood focvdaia88 mm[Hg]MD Michael Holley Work Phone: 1(620)[address]09-26-2024 14:00-0400 Heart rate75 /minMD Michael Holley Work Phone: 1(584)[address] [place], [place] 9262709-26-2024 14:00-0400 Respiratory rate20 /minMD Michael Holley Work Phone: 1(677)[address] [place], [place] 9262709-26-2024 14:00-0400 SaO2% (BldA) [Mass fraction]99 %MD Michael Holley Work Phone: 1(004)[address]09-26-2024 14:00-0400 Systolic blood wfnenvts161 mm[Hg]MD Michael Holley Work Phone: [facility]09-12-2024 14:49-0400 Heart rate87 /minMichael NILL [facility]09-12-2024 14:49-8995EyT9% (BldA) [Mass fraction]96 %Roshan NILL [address] [place], [place] 3332809-12-2024 14:49-0400 Respiratory rate18 /minMichael NILL [address]09-12-2024 14:48-0400 Diastolic blood umnglztx31 mm[Hg]Roshan NILL [address] [place], [place] 3332809-12-2024 14:48-0400Mean blood surxlrgt677 mm[Hg]Roshan NILL [address] [place], [place] 3332809-12-2024 14:48-0400 Systolic blood vvzwebsq682 mm[Hg]Roshan NILL [facility]09-12-2024 14:04-0400Heart iyht169 /minMichael NILL [facility]09-12-2024 14:04-0400 Respiratory rate18 /minMichael NILL [address] [place], [place] 3332809-12-2024 14:04-6108YbI2% (BldA) [Mass fraction]95 %Roshan NILL [facility]09-12-2024 14:03-0400 Diastolic blood xxyeqeho73 mm[Hg]Roshan NILL [facility]09-12-2024 14:03-0400Mean blood wiivwkfd43 mm[Hg]Roshan NILL [address]09-12-2024 14:03-0400 Systolic blood xhehruqm046 mm[Hg]Roshan NILL [address]09-12-2024 13:54-0400Body .16 [degF]Roshan NILL [facility]09-12-2024 13:54-0400 Diastolic blood mm[Hg]Roshan NILL [address]09-12-2024 13:54-0400Heart qbxj541 /minMichael NILL [address]09-12-2024 13:54-0400Mean blood mm[Hg]Roshan NILL [address]09-12-2024 13:54-0400 Respiratory rate11 /minMichael NILL [address]09-12-2024 13:54-5561MjT3% (BldA) [Mass fraction]95 %Roshan NILL [facility]09-12-2024 13:54-0400 Systolic blood nsijappk397 mm[Hg]Roshna NILL [address] [place], [place] 3332809-12-2024 13:45-0400Mean blood hlioiabe01 mm[Hg]Roshan NILL [facility]09-12-2024 13:45-0400 Respiratory rate15 /minMichael NILL [facility]09-12-2024 13:40-0400Mean blood yvqexpkb20 mm[Hg]Roshan NILL [facility]09-12-2024 13:40-0400 Respiratory rate11 /minMichael NILL [address]09-12-2024 13:29-0400Blood Pressure LocationMichael NILL [facility]09-12-2024 13:29-0400Body irxuqgvzbpk54.34 [degF]Roshan NILL [facility]09-12-2024 08:21-0400Mean blood owknooyy231 mm[Hg]Roshan NILL [facility]09-12-2024 08:19-0400Blood Pressure LocationMichael NILL [facility]09-12-2024 08:19-0400 Respiratory rate18 /minMichael NILL [facility]08-26-2024 13:51-0400Heart rate80 /minMichael NILL [facility]08-26-2024 13:51-7909QvS2% (BldA) [Mass fraction]96 %Roshan NILL [facility]08-26-2024 13:51-0400 Diastolic blood itnxrppx66 mm[Hg]Roshan NILL [facility]08-26-2024 13:51-0400 Systolic blood mm[Hg]Roshan NILL [facility]08-26-2024 13:50-0400 Diastolic blood rgieevcd82 mm[Hg]Roshan NILL [facility]08-26-2024 13:50-0400Mean blood vocjontl92 mm[Hg]Roshan NILL [facility]08-26-2024 13:50-0400 Systolic blood zkgreeme134 mm[Hg]Roshan NILL [facility]08-06-2024 15:48-0400Blood Pressure LocationMichael NILL 327-1800Bwtyfx-UnavsK[facility]08-06-2024 15:48-0400Diastolic blood toyeyetz62 mm[Hg]Roshan NILL 301-5327Ezonws-CicbkK[facility]tering Health [facility] Center08-06-2024 15:48-0400Heart rate76 /minMichael NILL 713-0378Vicvqo-LmknkK[facility] Health [facility] Center08-06-2024 15:48-0400Respiratory rate16 /minMichael NILL 502-7281Bmahax-KbjyjKettering Health Behavioral Medical Center08-06-2024 15:48-0400Systolic blood mm[Hg]Roshan NILL 440-2701Osckhc-MuaspKettering Health Behavioral Medical Center06-06-2024 15:18-0400Body vgamwp854.18 cmMD Estela Krishnan Work Phone: 1(396)009-[address] [place], [place] 6161406-06-2024 15:18-0400 Body mass index (BMI) [Ratio]24.3 kg/m2MD Estela Krishnan Work Phone: 1(856)218-[address] [place], [place] 6161406-06-2024 15:18-0400 Body uunpydzisis06.8 [degF]MD Estela Krishnan Work Phone: 1([phone]06-06-2024 15:18-0400 Body .3 kgMD Estela Krishnan Work Phone: 1(746)604-[address] [place], [place] 6161406-06-2024 15:18-0400 Diastolic blood pmqzmimy10 mm[Hg]MD Estela Krishnan Work Phone: 1(587)085-[address] [place], [place] 6161406-06-2024 15:18-0400 Heart rate81 /minMD Estela Krishnan Work Phone: 1(853)181-29[facility]06-06-2024 15:18-0400 Respiratory rate20 /minMD Estela Krishnan Work Phone: 1(382)224-78[facility]06-06-2024 15:18-0400 SaO2% (BldA) [Mass fraction]95 %MD Estela Krishnan Work Phone: [facility]06-06-2024 15:18-0400 Systolic blood dfcnbwes654 mm[Hg]MD Estela Krishnan Work Phone: [facility]04-30-2024 15:41-0400 Blood Pressure LocationMichael NILL 103-8000Lbiacm-ApljuKettering Health Behavioral Medical Center04-30-2024 15:41-0400Diastolic blood eimjmhyv07 mm[Hg]Roshan NILL [phone]-OxvajKettering Health Behavioral Medical Center04-30-2024 15:41-0400Heart rate72 /minMichael NILL [phone]-UnzkxKettering Health [facility] Medical Center04-30-2024 15:41-0400Respiratory rate16 /minMichael NILL [phone]-QmejgKettering Health Behavioral Medical Center04-30-2024 15:41-0400Systolic blood mm[Hg]Roshan NILL [phone]-IkacvKettering Health Behavioral Medical Center02-27-2024 14:32-0500Diastolic blood mm[Hg]Osmin PAUL [facility]02-27-2024 14:32-0500Heart rate90 /April PAUL [facility]02-27-2024 14:32-3353XwR5% (BldA) [Mass fraction]98 %Osmin PAUL [facility]02-27-2024 14:32-0500 Systolic blood unfpbgjf687 mm[Hg]Osmin PAUL [facility]12-06-2023 13:19-0500Blood Pressure LocationMichael NILL General Surgery Bhhuiffy43-73-1143 13:19-0500Diastolic blood mm[Hg]Roshan NILL General Surgery Vcoazwlu34-47-4413 13:19-0500Heart rate 72 /minMichael NILL General Surgery Ckmdsrqc17-64-2164 13:19-0500 Respiratory rate16 /minMichael NILL General Surgery Vwbfanrd47-20-4704 13:19-0500Systolic blood hfbagruo715 mm[Hg]Roshan NILL General Surgery [place] Encounters Encounter DateEncounter TypeCare ProviderFacilityStart: 72-25-1605gncbtmykjs MICHAEL A LEHMANNFacility:[facility] BellevueStart: 54-51-2499sjfvyfuvxnAbinyd L. BobbsFacility:[facility] BellevueStart: 78-04-0608kllyvunhjcYmooqq Carlton Caballero Facility:[facility] BellevueStart: 06-30-2025 End: 95-27-0895drcpamlbrmKGRTKQ A LEHMANNFacility:[facility] evueStart: 06-24-2025 End: 30-95-8252uyrdazcqaoTxzpxle R NILLFacility: BellevueStart: 06-24-2025 End: 82-25-9020Mvbeear encounter procedureMichael R NILL [phone]-GsbynOhiohealth [facility] [place] Start: 06-16-2025 End: 78-58-0082wzoenytzthUyunfk E. RossFacility:[facility] BellevueStart: 04-23-2025 Registered [facility]z [facility] Work Phone: Start: 04-23-2025 End: 30-18-0418lmcryhbxkjNmrfkj E Ross MD Work Phone: [facility] Work Phone: Start: 04-23-2025 End: 52-19-8585Ypjmwuq encounter procedureKush Glez MD-[facility] Ambulatory Work Phone: Start: 04-23-2025 End: 20-98-4188Httxuoi encounter procedureElda Genesis [facility] CareStart: 04-23-2025 End: 41-43-2955hkbxzsfrvnGsqcho E Ross MD Work Phone: [facility] Work Phone: Start: 00-74-6437ndymfgllwzAzlhqy E. RossFacility:[facility] BellevueStart: 40-99-1540Yykgruicmg RecurringKush Glez MD-[facility] Acute Work Phone: Start: 04-10-2025 End: 34-87-9016aeevtwywtdVgqlhy E Ross MD Work Phone: [facility] Work Phone: Start: 04-10-2025 End: 01-11-9418Ptsthxo encounter procedureCynthia Clayton [facility] Ambulatory Work Phone: Start: 03-25-2025 End: 16-54-5191zbthumddzpBUDOTJ A LEHMANNFacility:[facility] [place]vueStart: 03-25-2025 End: 72-88-5227ldimsyirzdUmtlso E Ross MD Work Phone: [facility] Work Phone: Start: 03-25-2025 End: 23-71-9819Melpnge encounter procedureCynthia Clayton [facility] Ambulatory Work Phone: Start: 07-85-9333Ncz-patient / Non-visitNoveronica Elizabeth MD-[facility] Ambulatory Work Phone: Start: 00-65-5953Xmo-patient / Non-visitNoveronica Elizabeth MDCancer Center Ambulatory Work Phone: Start: 03-03-2025 End: 81-57-2283Beuwotq encounter procedureKatximena Robles [facility] Palliat CareStart: 03-03-2025 End: 33-27-5048tsxbdifmfkTebbbm E Ross MD Work Phone: [facility] Work Phone: Start: 41-33-5866Mfv-patient / Non-visitElda Robles [facility] Palliative Work Phone: Start: 79-44-9410Fra-patient / Non-visitNoveronica Elizabeth MDCancer Center Ambulatory Work Phone: Start: 43-13-5389Rqs-patient / Non-visitNoveronica Elizabeth MDCancer Center Ambulatory Work Phone: Start: 04-67-1612Dpa-patient / Non-visitNoveronica Elizabeth MDCancer Center Ambulatory Work Phone: Start: 02-04-2025 End: 93-19-1332jtsbsnifvmLbmery E Ross MD Work Phone: [facility] Work Phone: Start: 02-04-2025 End: 35-60-6847Wtpcfil encounter procedureSquinten Holley MD Work Phone: [facility] Work Phone: Start: 23-64-3894Mcltghgtvu RecurringMichael Holley MD Work Phone: [facility] Acute Work Phone: Start: 01-21-2025 End: 88-26-2251icklbklflnZqwyeq E. RossFacility:[facility] [place]vueStart: 01-01-2025 Non-patient / Non-visitSquinten Holley MD Work Phone: [facility] Palliative Work Phone: Start: 96-73-9375Luaeejdlrm Jaret Holley MD Work Phone: [facility] Work Phone: Start: 01-01-2025 End: 62-89-7814ajteypkibsPkhsmj E Ross MD Work Phone: [facility] Work Phone: Start: 01-01-2025 End: 33-87-2552Ughtcxv encounter procedureSquinten Holley MD Work Phone: [facility] Amb[facility] Work Phone: Start: 01-01-2025 End: 91-77-2861Tmwmdva encounter procedureSquinten Holley MD Work Phone: [facility] CareStart: 01-01-2025 End: 37-81-1517wclotbgrxnWpiwzo E Ross MD Work Phone: [facility] Work Phone: Start: 12-31-2024 End: 79-76-9792Wzmfnuhu Result EncounterJosseline Simpson MD Work Phone: [facility] External Department UnsolicitedStart: 12-31-2024 End: 53-82-1825Jijrjdsk Result EncounterJosseline Simpson MD Work Phone: [facility] External Department UnsolicitedStart: 12-25-2024 Registered Jaret Holley MD Work Phone: [facility] Acute Work Phone: Start: 12-25-2024 End: 40-04-4648Rjkynyo encounter procedureSquinten Holley MD Work Phone: [facility] CareStart: 12-25-2024 End: 02-57-6230qcakppiinsSmzlnb E Ross MD Work Phone: [facility] Work Phone: Start: 26-12-8516Tpd-patient / Non-visitSquinten Holley MD Work Phone: [facility] Palliative Work Phone: Start: 27-70-1926Udwdocxkub Jaret Holley MD Work Phone: [facility] Work Phone: Start: 12-19-2024 End: 13-46-6180Wdclihr encounter procedureSquinten Holley MD Work Phone: [facility] Palliat CareStart: 12-19-2024 End: 75-65-3588zdbnmqflzsVnuccs E Ross MD Work Phone: [facility] Work Phone: Start: 12-12-2024 End: 01-65-8464bzximcjrsgZaiiba E. RossFacility:[facility] BellevueStart: 12-11-2024 Registered Jaret Holley MD Work Phone: [facility] Work Phone: Start: 12-11-2024 End: 71-83-0052wizddqmtmzDagdwl E Ross MD Work Phone: [facility] Work Phone: Start: 12-11-2024 End: 10-12-5257Ogudpkg encounter procedureSquinten Holley MD Work Phone: [facility] Ambulatory Work Phone: Start: 05-95-3456Ukg-patient / Non-visitSquinten Holley MD Work Phone: [facility] Palliative Work Phone: Start: 65-71-7523Surehrrkxn Jaret Holley MD Work Phone: [facility] Work Phone: Start: 11-27-2024 End: 71-28-6600Zhxubmp encounter procedureSquinten Holley MD Work Phone: [facility] Palliat CareStart: 11-27-2024 End: 43-44-1370lvlwhcwjumOqnomn E Ross MD Work Phone: [facility] Work Phone: Start: 11-05-2024 End: 66-37-9695tqygfjxzsdGgtnkr E. RossFacility:FT BellevueStart: 11-04-2024 Registered Jaret Holley MD Work Phone: [facility] Work Phone: Start: 11-04-2024 End: 20-28-4759Dmzbouq encounter procedureSquinten Holley MD Work Phone: [facility] [place] Work Phone: Start: 11-04-2024 End: 41-37-6639syxrtsqmyjXvofxh E Ross MD Work Phone: [facility] Work Phone: Start: 93-25-2801Dvn-patient / Non-visitSquinten Holley MD Work Phone: [facility] Work Phone: Start: 51-40-7578Wrbuzzgtvo Jaret Holley MD Work Phone: [facility] Work Phone: Start: 10-30-2024 End: 50-26-8687jibjxtumudNnpcvv E Ross MD Work Phone: [facility] Work Phone: Start: 10-30-2024 End: 12-16-1204Fzdqyfo encounter procedureSquinten Holley MD Work Phone: [facility] Ambulatory Work Phone: Start: 10-30-2024 End: 97-06-3695Vjtecvrr ReferredMichael Holley MD Work Phone: [facility] Palliat CareStart: 10-30-2024 End: 10-24-2450Kgxlkkk encounter procedureSquinten Holley MD Work Phone: [facility] PalliativeStart: 10-30-2024 End: 82-88-7420zehpwfzzozKnqxyd E Ross MD Work Phone: [facility] Work Phone: Start: 10-22-2024 End: 91-25-6836qkbtbppbcoLfupda E. RossFacility:[facility] [place]vueStart: 10-22-2024 End: 85-09-1914uaalxbphlaBvdzfw E. RossFacility:[facility] [place]vueStart: 10-17-2024 End: 19-50-4100zdsqnjhmayWgwmmv E Ross MD Work Phone: [facility] Work Phone: Start: 10-17-2024 End: 51-18-8659Gmvbapi encounter procedureSquinten Holley MD Work Phone: [facility] Infect Dis Work Phone: Start: 01-04-6711Fsrbrmjpnl Jaret Holley MD Work Phone: [facility] [place] [facility] Work Phone: Start: 10-16-2024 End: 38-55-9851xvihvrvsrdPudzps E Ross MD Work Phone: [facility] Work Phone: Start: 10-16-2024 End: 75-22-8229Icgxefk encounter procedureSquinten Holley MD Work Phone: [facility] Ambulatory Work Phone: Start: 10-08-2024 End: 95-75-1571howddpemgfFqbfev E. RossFacility:[facility] [place]vueStart: 10-07-2024 End: 67-17-7477Wgwyjzc encounter procedureSquinten Holley MD Work Phone: [facility] [place] Work Phone: Start: 10-07-2024 End: 83-82-1418smqeyugkybWbctnd E Ross MD Work Phone: [facility] Work Phone: Start: 10-03-2024 End: 41-99-8627eskjfzbjekNsxaxa E Ross MD Work Phone: [facility] Work Phone: Start: 10-03-2024 End: 50-33-5782Ihbmlth encounter procedureSquinten Holley MD Work Phone: [facility] Ambulatory Work Phone: Start: 68-12-0743Mugrdyaxeo RecurringMichael Holley MD Work Phone: [facility] Work Phone: Start: 09-26-2024 End: 92-89-2949eyhmjmamkwPgazly E. RossFacility:CD:[id number]: 2024 Non-patient / Non-visitSquinten Holley MD Work Phone: [facility] Infect Dis Work Phone: Start: 09-24-2024 End: 67-95-0497Hsxzdnyu Result EncounterFrank Paez DO Work Phone: [facility] External Department UnsolicitedStart: 09-24-2024 End: 64-54-0432Gqjvzhhn Result EncounterFrank Paez DO Work Phone: [facility] External Department UnsolicitedStart: 09-18-2024 Non-patient / Non-visitSquinten Holley MD Work Phone: [facility] Infect Dis Work Phone: Start: 09-17-2024 End: 72-66-6763Zhthsnihfh and management of inpatientSquinten Holley MD Work Phone: [facility]-[address] [place] [address] Progressive Work Phone: Start: 09-17-2024 End: 35-78-0499tafydasukiPogunp E Ross MD Work Phone: [facility] Work Phone: Start: 09-17-2024 End: 77-78-0047Rkigvjt encounter procedureSquinten Holley MD Work Phone: [facility] Ambulatory Work Phone: Start: 78-77-0732Gjpsomkyin RecurringMichael Holley MD Work Phone: [facility] Work Phone: Start: 09-05-2024 End: 04-66-1398Ucabuao encounter procedureSquinten Holley MD Work Phone: [facility]: 09-05-2024 End: [id number] E Ross MD Work Phone: [facility] Work Phone: Start: [id number]-patient / Non-visitSquinten Holley MD Work Phone: [facility] Work Phone: Start: 09-03-2024 End: [id number] encounter procedureSquinten Holley MD Work Phone: [facility], [facility] Work Phone: Start: 08-22-2024 End: 56-84-5501Fwfwwxj encounter procedureSquinten Holley MD Work Phone: [facility] PalliativeStart: 08-22-2024 End: 97-25-0392rqelcldjljXqwbvp E RossFacility:[facility] Start: 00-46-0540Dfz-patient / Non-visitSquinten Holley MD Work Phone: [facility] Palliative Work Phone: Start: 08-21-2024 End: 82-78-9873Syyvksa encounter procedureSquinten Holley MD Work Phone: [facility] Work Phone: Start: 08-06-2024 End: 99-46-8119qcqetffnsqLbwqhjq R NILLFacility: BellevueStart: 08-06-2024 End: 59-27-6806Hlihktl encounter procedureMichael R NILL [phone]-QkjjuOhiohealth [facility] [place] Start: 08-06-2024 End: 36-31-8443cfauvhygpqZodqwr E. RossFacility:[facility] BellevueStart: 07-31-2024 End: 29-67-5876Mafoanc encounter procedureSquinten Holley MD Work Phone: [facility] Work Phone: Start: 07-22-2024 End: 23-81-1533Cebessses to same day surgery centerMichael R NILL [facility] Start: 07-22-2024 End: 84-04-9767mxlyialeudPysimkd R NILLFacility:FTMCStart: 07-19-2024 End: 71-94-1557Oyn-admission assessmentSquinten Holley [facility] Start: 11-27-0889vygwwhvupvXiiqjcn R NILLFacility: BellevueStart: 07-09-2024 End: 71-22-3092yuhqlrgutvYrpixxt R NILLFacility:FTMCStart: 07-09-2024 End: 71-93-4179Qrpzduf encounter procedureMichael R NILL [facility] Start: 07-02-2024 End: 56-83-8906peuzwwxljzEqrzjc E. RossFacility:FTMCStart: 07-02-2024 End: 85-42-7181Rbp Drop offSquinten Holley [facility] Start: 07-02-2024 End: 47-06-5451hlposeohdbEroncjf R NILLFacility: BellevueStart: 07-02-2024 End: 69-35-6272Ufqhhox encounter procedureMichael R NILL [phone]-Zfqsn General Surgery [place] Start: 06-11-2024 End: 42-89-0406jrxghdgoztBdvzvz E. RossFacility:[facility] ueStart: 06-05-2024 End: 66-60-2564Oclvtqzwc to same day surgery centerMD Michael Holley Work Phone: [facility] CampusStart: 06-05-2024 End: 62-41-8710rmvdqxnlquSX Samuel E Ross Work Phone: [facility] Work Phone: Start: 87-83-5007Mixytdbgea RecurringMD Michael Holley Work Phone: [facility] Work Phone: Start: 05-30-2024 End: 12-64-6901jfbuyeshkcDB Michael Holley Work Phone: [facility] Work Phone: Start: 05-30-2024 End: 45-41-9764Dcjddwg encounter procedureMD Michael Holley Work Phone: [facility] Work Phone: Start: 05-21-2024 End: 04-91-9779onqiuvqvusGicfgxs R NILLFacility: BellevueStart: 05-21-2024 End: 45-90-5991Wzlpyvh encounter procedureMichael R NILL [phone]-LjwebKettering Health [facility] Start: 05-16-2024 End: 06-98-9937Sxhyjkepc to same day surgery centerMichael R NILL [facility] Start: 05-16-2024 End: 05-49-9930svetelsueiZdbilqg R NILLFacility:FTMCStart: 05-14-2024 End: 75-57-7223rzyupzfzakQaxkmw Mj HolleyFacility:FT FM BellevueStart: 04-29-2024 End: 44-75-1633crdfjeqiwjOjrepii R NILLFacility:FTMCStart: 04-29-2024 End: 08-35-5471Gkntpnd encounter procedureMichael R NILL [facility] Start: 04-09-2024 End: 28-89-9924tpjaqdnazmKfamfny R NILLFacility: BellevueStart: 04-09-2024 End: 39-43-3989Fleyqov encounter procedureMichael R NILL [phone]-KpejmPremier Health Miami [facility] Hospital Northue start: 02-27-2024 End: 95-51-9614ojfnythitdSaiyagx R NILLFacility:GS BellevueStart: 02-27-2024 End: 14-89-2736Urdykdu encounter procedureMichael R NILL [phone]-IqjrrPremier Health [facility] [place] Start: 02-27-2024 End: 63-49-2658neiloymtgoTbyyfm E. RossFacility:FT BellevueStart: 02-20-2024 End: 81-55-3303Ysihwbdh ReferredMD Estela Krishnan Work Phone: [facility] [place] HospStart: 02-20-2024 End: 07-54-2096wsoruwjfnrNL Kim E Knight Work Phone: [facility] Work Phone: Start: 02-20-2024 End: 86-63-8308Sptpmai encounter procedureMichael R NILL [phone]-ZezmfPremier Health Miami Valley Hospital Northue Start: 04-00-2305Pmbdwfaavu RecurringMD Estela Krishnan Work Phone: [facility] Work Phone: Start: 02-08-2024 End: 93-97-7606jboypecooqAG Kim E Knight Work Phone: [facility] Work Phone: Start: 02-08-2024 End: 33-21-8088Asbjnne encounter procedureMD Estela Krishnan Work Phone: [facility] Work Phone: Start: 01-22-7338azsyslkjouXbrylkt R NILLFacility: BellevueStart: 01-23-2024 End: 98-36-7121uitnncpfegNydmoyz R NILLFacility:GS BellevueStart: 01-23-2024 End: 17-86-2007Mhdnozy encounter procedureMichael R NILL [phone]-AqgvxPremier Health [facility] [place] Start: 01-16-2024 End: 44-25-8714dcbgeqmpfdPjqakry R NILLFacility:[facility] CenterueStart: 01-16-2024 End: 22-19-6829Nthwthp encounter procedureMichael R NILL [phone]-ZaspgPremier Health [facility] Hospital Northue Start: 01-10-2024 End: 30-94-3592acuwhpmoilLL Kim Sumi Krishnan Work Phone: [facility] Work Phone: Start: 01-10-2024 End: 40-94-9599Ejbnjfmk Referred Estela Krishnan Work Phone: [facility] [place] HospStart: 01-10-2024 End: 81-20-4302uzkyqxyptpFizifcp R NILLFacility:CD:[id number]: 01-02-2024 End: 04-33-0335jvtxiksdweZpqztgs R NILLFacility: tart: 01-02-2024 End: 93-64-0681Wvgxcky encounter procedureMichael R NILL [phone]-ZiupyPremier Health [facility] [place] Start: 11-27-2023 End: 59-27-2535zbnzislaswVlscfk E. RossFacility:[facility] BellevueStart: 10-31-2023 End: 90-04-2086mwqruklcqlVbiyyr J NEWTONFacility:MCStart: 10-31-2023 End: 05-66-8153Mvtqmyl encounter procedureOsmin PAUL [facility] Start: 10-24-2023 End: 62-40-9116efvwudiyynLjtvgn J NEWTONFacility:FTMCStart: 10-24-2023 End: 96-19-3000Luuzchk encounter procedureOsmin PAUL [facility] Start: 10-02-2023 End: 28-40-2528jzsnqezdtfTvkqzq Mj RossFacility:FT BellevueStart: 09-07-2023 End: 44-85-9525mkyrfjdofyTxftce ELucila RossFacility:FT BellevueStart: 09-07-2023 End: 07-41-2374uwtterbpyaRytgrz J NEWTONFacility:FTMCStart: 08-09-2023 End: 13-52-6481tkbwcjfiysYhvnhp Mj RossFacility:FTMCStart: 08-09-2023 End: 24-85-5753vzpccsmiifDkgftbi R NILLFacility: BellevueStart: 08-09-2023 End: 79-64-4797Csjnxdf encounter procedureMichael R NILL General Surgery N[place]/Said [place] Start: 08-07-2023 End: 19-19-3151fzbptjmdwnXlwiej ELucila RossFacility:[facility] ueStart: 07-24-2023 End: 57-65-3433gnxbeibjosXwayxl E. RossFacility:[facility] BellevueStart: 07-12-2023 End: 62-72-4309sublmkoyvcJuimhkd R NILLFacility: ueStart: 07-12-2023 End: 07-24-6193Yszzjgt encounter procedureMichael R NILL General Surgery [place]/Said [place] Start: 06-20-2023 End: 26-44-8567kkafoklvwlIbmgrca R NILLFacility: BellevueStart: 06-02-2023 ambulatoryMichael NILLFacility: BellevueStart: 04-04-2023 End: 80-89-6143Uxcocja encounter procedureSquinten Holley [facility] Start: 08-31-2021 End: 45-06-4484rskmwdfjdbLH ESTELA KRISHNANFacility:H1 Procedures DateProcedureProcedure DetailPerforming ClinicianStart: 94-03-8569Ysdfijucetcyv metabolic panelJosseline Simpson MD Work Phone: Start: 18-92-8936SY of thorax with contrastSquinten Holley MD Work Phone: Start: 76-90-8841NU of thorax with contrastSquinten Holley MD Work Phone: Start: 79-92-5243NVVGKRYUOOFDX (EPO), SERUMTimothy Yrn Paez DO Work Phone: Start: 22-94-9533NW of chestSamuel Kishan PRATT Work Phone: Start: 89-21-7997Impvk cultureSquinten Holley MD Work Phone: Start: 19-02-6898Aljks chest X-raySquinten Holley MD Work Phone: Start: 52-58-9727Rwmuowxl identified in Blood by Hortencia Holley MD Work Phone: Start: 66-84-6653Zpjlfzbl identified in Blood by Hortencia Holley MD Work Phone: Start: 91-54-9686Dmwfnfyc screenSquinten Cruzment on above:Order Comment: Transfuse now? Y Number of units to transfuse now? 2Result Comment: PERFORMED BY:[facility] [place] [id number] MEDICAL DIRECTORALTHEA MEADOWS M.D. Start: 90-01-8962Ndhnimrn identified in Blood by Hortencia Holley MD Work Phone: Start: 31-78-0685Grvwydjuy ID (NA Multiplex Assay) Michael Holley MD Work Phone: Start: 80-55-6490Hlyihcgwyum Panel (PCR)Michael Holley MD Work Phone: Start: 51-46-8801Wliak cultureSquinten Holley MD Work Phone: Start: 11-44-3340XA angiography of thoraxSagreg Holley MD Work Phone: Start: 65-62-9602Qjrsbwhbm of implantable venous access portMichael NILL Start: 82-24-3763SA of thorax with contrastSquinten Holley MD Work Phone: Start: 80-05-5044Cvbtxzc of breast implantMD Michael Holley Work Phone: Start: 83-52-2051Mrjqourm of breastMichael NILL Comment on above:Placement of tissue director of corporate sponsorships and acellular dermis, and [place] node biopsy Dr Braun and Dr BustamanteStart: 49-03-0023Yiswmijj of intradermal nevusMichael NILL Comment on above:faceStart: 25-87-2218Ximb energy X-ray absorptiometryMD Estela Krishnan Work Phone: Start: 71-11-9325Bgflzxjk of mass of breastMichael NILL Start: 58-44-1653Repada of breastMichael NILL Start: 38-01-5149Rpmextnqord of kneeSquinten Holley AppendectomyMichael NILL ArthroscopyMichael Holley CholecystectomyMichael NILL Extraction of wisdom toothMichael NILL ft (qualifier value)Michael Holley Comment on above:15 Foot surgeries total per patient no further detailsMammoplastyMichael NILL Removal of breast implantMichael NILL Simple extraction of toothMichael NILL Tonsillectomy and adenoidectomyMichael NILL Total abdominal hysterectomy with bilateral salpingo-oophorectomySagreg Kishan Plan of Treatment DateCare ActivityDetailAuthorStart: 00-17-4972Ydlavhr referralSelect [facility] Work Phone: Start: 22-72-2246HyuxzqekfWhite Hospital Start: 23-76-8219BjdrpakbjVeterans Health Administrationtart: 12-18-2024 End: 59-30-6383OxzyctsrvVeterans Health Administrationtart: 23-10-0602Kyzihon referralTrihealth Good [facility]itan Hospital Work Phone: Start: 12-10-2024 End: 82-91-7014SmkoztsoiVeterans Health Administrationtart: 10-24-4642XkqbtwducKettering Health Springfield CenterStart: 54-17-3752JvmmpoyhwKettering Health Springfield CenterStart: 75-47-1862QimkuteqgKettering Health Springfield CenterStart: 15-76-4488IwdvrxmbfKettering Health Springfield CenterStart: 70-66-6831OfteviivkKettering Health Springfield CenterStart: 17-36-7394MnrjzqrwzKettering Health Springfield CenterStart: 30-41-9626KmwmoktiyKettering Health Springfield CenterStart: 76-35-7655LkerjfaozKettering Health Springfield CenterStart: 06-63-7332Wbabeuv referral to dietitianVeterans Health Administrationtart: 88-93-3579LqygduvxkKettering Health Springfield CenterStart: 92-73-8187EtryxhuogKettering Health Springfield CenterStart: 79-71-0589DrpfnzfgcKettering Health Springfield CenterStart: 19-93-8686CorwvdqxbKettering Health Springfield CenterStart: 99-75-2735TiadshdzqVeterans Health Administrationtart: 48-16-5148YrnirvbcxVeterans Health Administrationtart: 09-23-2024 End: 04-36-2097QortrlvxgVeterans Health Administrationtart: 98-86-4964Myfnretv to cardiothoracic surgeonVeterans Health Administrationtart: 09-21-2024 [facility] Administrationtart: 48-47-4614Oqcrkefh identified in Blood by CultureBlood CultureKettering Health Springfield CenterStart: 09-20-2024 [facility] CenterStart: 62-44-0086Ucdokxpl to oncologist [facility] Administrationtart: 04-28-5496Etbbmlvkqfebbp of prophylactic treatmentVeterans Health Administrationtart: 02-67-2323Qxrzwavi to infectious diseases physicianVeterans Health Administrationtart: 09-18-2024 Comprehensive metabolic 2000 panel - Serum or PlasmaVeterans Health Administrationtart: 09-18-2024 End: 83-86-7984TsqjptbiuVeterans Health Administrationtart: 10-60-8578XngqfwzkoVeterans Health Administrationtart: 64-26-0786Wcguwppsd culture of sputumVeterans Health Administrationtart: 38-83-0889Qaicyyzn admissionVeterans Health Administrationtart: 09-17-2024 End: 55-85-9189IsjjqpttsVeterans Health Administrationtart: 95-82-1087Ctcvklda identified in Blood by CultureBlood CultureWhite Hospital Start: 14-67-1285Pzqlnubx identified in Urine by CultureUrine CultureVeterans Health Administrationtart: 40-65-9621Henee cultureKettering Health Springfield CenterStart: 17-80-9966DgromfasmKettering Health Springfield CenterStart: 68-99-8921Lzremal referral to dietitianVeterans Health Administrationtart: 09-05-2024 [facility] CenterStart: 38-02-7695TeukegsehKettering Health Springfield CenterStart: 89-63-7559VdwtlqupqKettering Health Springfield CenterStart: 08-06-2024 [facility] CenterStart: 07-31-2235XtemuswnrVeterans Health Administrationtart: 47-26-2446UibabolvmVeterans Health Administrationtart: 06-05-2024 [facility] Administrationtart: 97-41-0961Xavayii [facility] Work Phone: Start: 19-15-4494Segbuac [facility] Work Phone: Basophils [#/volume] in Blood by Automated count White HospitalBasophils/100 leukocytes in Blood by Automated [facility] HospitalCancer Ag 15-3 [Units/volume] in Serum or [facility] CantonComprehenve metabolic 1999 panel - Serum or [facility] CantonComprehenve metabolic 1999 panel - Serum or [facility] CantonComprehensive metabolic 1999 panel - Serum or [facility] CantonComprehenatrium health [facility] metabolic 1999 panel - Serum or [facility] Comprehensive metabolic 1999 panel - Serum or [facility] CantonComprehenve metabolic 1999 panel - Serum or [facility] CantonComprehensive metabolic 1999 panel - Serum or [facility] CantonCT Chest W contrast [facility]CT Chest W contrast [facility] EastCT Chest W contrast IV White HospitalCT with contrast for radiotherapy planning White HospitalDXA Skeletal system.axial Views for bone densityWhite HospitalEosinophils/100 leukocytes in Blood by Automated [facility] HospitalErythropoietin (EPO) [Units/volume] in Serum or [facility] CantonLymphocytes [#/volume] in Blood by Automated countWhite Hospital Lymphocytes/100 leukocytes in Blood by Automated [facility] HospitalMeasurement of cancer antigen 27-29White HospitalMG Breast - right ScreeningWhite HospitalMonocytes [#/volume] in Blood by Automated countWhite HospitalMonocytes/100 leukocytes in Blood by Automated [facility] Neutrophils [#/volume] in Blood by Automated countWhite HospitalNeutrophils/100 leukocytes in Blood by Automated countWhite HospitalNucleated erythrocytes [Presence] in Blood by Automated count White HospitalPatient EducationSelect Medical [facility] [place] Work Phone: Patient referralSelect [facility] [place] Work Phone: XR Foot - left GE [facility] Immunizations Immunization DateImmunizationNotesCare ProviderFacilityNEGATED: Highlighted row has not occurred!92-94-6571ueniswcyc virus vaccine, unspecified formulation Roshan NILL 080-8980Ykyvmq-VupfpHolzer Hospital [place] NEGATED: Highlighted row has not occurred!44-04-4076vapxktzkb virus vaccine, unspecified formulationMichael NILL 096-9147Dvjakq-FrdizHolzer Hospital [place] NEGATED: Highlighted row has not occurred!45-82-1918qoqnoonbw virus vaccine, unspecified formulationMichael NILL General Surgery BellevueNEGATED: Highlighted row has not occurred!50-52-0107TKVR-CoV-2 mRNA (tozinameran 5y-11y) vaccineSquinten Holley [phone]-CfybzRiverside Methodist Hospital [place] Payers DatePayer CategoryPayerPolicy ID2025Medicare [id number] Health [id number] (Managed Care)[facility] MEDICARE [id number] 2.16.840.1.692046.3.57[id number] 2.16.840.1.656256.3.57[id number] 2.16.840.1.437803.3.579.2.[id number] 2.840.1.219585.3.579.2.[id number] 2.840.1.776329.3.579.[id number] 2.840.1.354847.3.579.2.39594-22-9811Pxpenjw86187021 2.840.1.274644.3.579.2.47545-11-4835Wjqzmoa46055976 2.840.1.894167.3.579.2.04711-89-1342Gmzhsyc39740022 2.16840.1.202195.3.579.2.92893-17-0524Uerpcph07602448 2.16840.1.730659.3.579.2.76657-48-0532Uvoxdio93174622 2.16840.1.847463.3.579.2.06571-82-7895Rmjyyfn64274261 2.16840.1.335717.3.579.2.98155-12-9700Ypgydzo29770847 2.16840.1.176589.3.579.2.73505-57-9386Tthafcw74983600 2.16.840.1.859993.3.579.2.70681-26-8336Tckipkg23858155 2.16.840.1.330518.3.579.2.97165-53-6588Kpzejjo42462097 2.16.840.1.253655.3.579.2.01885-15-4290Tplddlu11666294 2.16.840.1.907586.3.579.2.68730-44-0596Ovjxjvd10710011 2..840.1.537710.3.579.2.51142-69-4970Gbnscqe48574132 2.840.1.326037.3.579.2.19778-84-9161Pxpdqyj44166734 2.840.1.720454.3.579.2.03678-88-2057Afkinpr82758844 2.840.1.518786.3.579.2.52020-09-0826Ijckbbp23874387 2.840.1.834678.3.579.2.27745-06-9011Ojtghyx40871667 2.840.1.140735.3.579.2.45914-22-6203Fgwrjdv46038123 2.840.1.063192.3.579.2.19683-70-5020Tsnaxms50887383 2.840.1.510542.3.579.2.82424-26-4715Hnmwiig74962318 2.16840.1.486534.3.579.2.76118-92-5859Quhbwov89442582 2.16840.1.193584.3.579.2.72345-08-1767Yicxueq69260026 2.16.840.1.252326.3.579.2.78152-01-0081Wgfvakx87878738 2.16.840.1.671198.3.579.2.57284-91-5794Puwskow57968898 2.16.840.1.473308.3.579.2.38323-43-7961Lrdjvzf28984086 2.16.840.1.675910.3.579.2.65528-62-8827Frdamoh43455258 2.16.840.1.849182.3.579.2.17665-64-3826Bcnmxvp26877689 2.16.840.1.895235.3.579.2.96057-59-0415Eiwoouj43326395 2.16.840.1.571642.3.579.2.65730-16-5714Gczmgzx78715427 2.16.840.1.758245.3.579.2.85998-07-5830Cqgsbcs10628651 2.16.840.1.538241.3.579.2.04631-89-6915Bvwrsnv18390377 2.16.840.1.253256.3.579.2.69322-98-7538Piigrjq05443497 2.16.840.1.087069.3.579.2.55576-12-8189Rvlphwb33091891 2.16.840.1.742051.3.579.2.44937-47-7153Blylojz97689218 2.16.840.1.663517.3.579.2.51524-92-5197Psqhrvr72130557 2.16.840.1.582667.3.579.2.90629-60-7243Oaynzye77362587 2.16.840.1.209524.3.579.2.36288-74-1741Rpgkbay27275070 2.16.840.1.347207.3.579.2.74548-96-5752Ioyxhbp75357829 2.16.840.1.375483.3.579.2.88681-09-1299Rtpbxov57290825 2.16.840.1.021479.3.579.2.16718-10-1843Hzjhvzo75551986 2.16.840.1.111114.3.579.2.50119-30-7464Iqwvniw91151125 2.16.840.1.633222.3.579.2.03047-35-4736Bkynjpx10922490 2.840.1.329884.3.579.2.87275-73-6259Pvuhlkl49452651 2.16.840.1.385287.3.579.2.50862-39-2462Auqmnnf87463521 2.16.840.1.594358.3.579.2.40111-35-7505Zrmrage11510572 2.16.840.1.766892.3.579.2.43248-53-6991Wexmogm74056922 2.16840.1.554881.3.579.2.09126-30-4866Keqiiws12315271 2.16840.1.992916.3.579.2.49755-94-5783Rznmsob92492939 2.16.840.1.972491.3.579.2.68221-44-3619Cfernwd94805099 2.16.840.1.193153.3.579.2.43817-96-7639Nzbivvz57977137 2.16.840.1.719107.3.579.2.25659-71-1604Bdffall08125346 2.16.840.1.929588.3.579.2.84405-50-3831Viedrwv63828388 2.16.840.1.374759.3.579.2.727 1960MedicareMEBR0JLPUnknownAnthem / [id number] Social History DateTypeDetailFacilityStart: 03-21-2023 End: 43-69-8766Xfbfhju smoking statusEx-smoker (finding)[facility] HospitalComment on above:patient quit smoking in the 80's.former smoker.Tobacco smoking statusNeverMercy Health Willard HospitalComment on above:patient quit smoking in the 80's.former smoker.Start: 66-42-1759Him Assigned At [facility] HealthFeB[facility] Hospital CenterStart: 65-71-3092Ske Assigned At [facility] Hospitaltart: 09-06-2024 End: 92-95-2059MlsRmihkt (finding)[facility] Administrationtart: 78-72-5360Pfkmsnj smoking status NHISNever smoked tobaccoNOMS HealthcareStart: 02-51-3454Mtkjeqcqu beverage intakeCurrent drinker of alcohol (finding)[facility] HealthcareStart: 58-77-0740Fpahibv of Social functionNOMS HealthcareStart: 82-16-9017Mmeebgf CommentAlcohol: 1 or 2 drinks on a typical day/monthly or less Caffeine: 1-2 cups/day soda/pop (pepsi), occasionally coffeeNOMS Healthcare Start: 38-33-0386Xxp assigned at [facility] hospitalNot on fileNOMS HealthcareSexual OrientationOhiohealth Pickerington [facility] General [facility] [place] [facility] Equipment Procedure CodeEquipment CodeEquipment Original TextEquipment IdentifierDates BREAST RECONSTRUCTION W/ PLACEMENT OF TI [place] MD, Miquel A 05/16/24 Unknown Breast LFDAStart: 08-05-3387NGBNGF RECONSTRUCTION W/ PLACEMENT OF Miquel Guidry MD 05/16/24 Unknown Breast LFDAStart: 84-96-4467YZCKBZ RECONSTRUCTION W/ PLACEMENT OF Miquel Guidry MD 05/16/24 Unknown Breast LFDAStart: 23-32-9649HTCCIT RECONSTRUCTION W/ PLACEMENT OF Miquel Guidry MD 05/16/24 Unknown Breast LFDAStart: 89-70-5789VELPAL RECONSTRUCTION W/ PLACEMENT OF Miquel Guidry MD 05/16/24 Unknown Breast LFDAStart: 07-95-4748CNMAEM RECONSTRUCTION W/ PLACEMENT OF Miquel Guidry MD 05/16/24 Unknown Breast LFDAStart: 27-95-5314FGTOZG RECONSTRUCTION W/ PLACEMENT OF Miquel Guidry MD 05/16/24 Unknown Breast LFDAStart: 21-26-2617XIIJSO RECONSTRUCTION W/ PLACEMENT OF Miquel Guidry MD 05/16/24 Unknown Breast LFDAStart: 93-74-5128FHWQNTXWDN INSERTION Roshan BRAUN MD 07/22/24 Non Biological Chest +[id number] FDAStart: 33-81-2365IOMQEC RECONSTRUCTION W/ PLACEMENT OF Miquel Guidry MD 05/16/24 Unknown Breast LFDAStart: 84-43-7989IUQFWK RECONSTRUCTION W/ PLACEMENT OF Miquel Guidry MD 05/16/24 Unknown Breast LFDAStart: 95-39-3759JYNKXK RECONSTRUCTION W/ PLACEMENT OF Miquel Guidry MD 05/16/24 Unknown Breast LFDAStart: 55-30-9941HWNMLX RECONSTRUCTION W/ PLACEMENT OF Miquel Guidry MD 05/16/24 Unknown Breast LFDAStart: 76-98-2017EAEAUN RECONSTRUCTION W/ PLACEMENT OF Miquel Guidry MD 05/16/24 Unknown Breast LFDAStart: 10-89-7736BLEWFT RECONSTRUCTION W/ PLACEMENT OF Miquel Guidry MD 05/16/24 Unknown Breast LFDAStart: 57-65-6211OZOQFS RECONSTRUCTION W/ PLACEMENT OF RACHEL Bustamante MD Miquel Tierra 05/16/24 Unknown Breast LFDAStart: 07-54-5457GMTJTS RECONSTRUCTION W/ PLACEMENT OF Miquel Guidry MD [place] 05/16/24 Unknown Breast LFDAStart: 89-52-7215FNOHCX RECONSTRUCTION W/ PLACEMENT OF RACHEL Bustamante MD M[facility] 05/16/24 Unknown Breast LFDAStart: 64-81-8642UARKIT RECONSTRUCTION W/ PLACEMENT OF RACHEL Bustamante MD Miquel [place] 05/16/24 Unknown Breast LFDAStart: 05-16-2024 Goals DatePatient GoalDesired Activity/State Functional Status TllcBlhwgpkkwyHfnjwyPckrsebp96-80-0927Fpjfepsupe statusPatient is Progressing [facility] Work Phone: [phone] 286-366101977409-03-5617Eeiqkziihg statusPatient Not at Baseline [facility] Work Phone: [phone] 298-531012739676-13-1472Ocwzyoneyu StatusN/[facility] Kpwoddmy66-36-8660Bczjyrodqd Status[facility]10-29-2024Functional StatusN/[facility]08-26-2024Function[facility]08-06-2024 Functional StatusN/[facility]04-30-2024Functional StatusN/[facility]02-27-2024Functional StatusN/A [facility]12-06-2023Functional StatusN/[facility] [place] Mental Status JicyQnhkmbjumiQvyjetNzntnajo80-40-1838Yywnsejlq functionCognitive Status [facility] Work Phone: [phone]yonuuz functionCognitive Status Patient at [facility] Work Phone: Clinical Notes 2018 to 06-30-2025 Note Date & RlksOmxhEjmcwhfq35-13-7691 NoteNurse Consultation Note Reason for Visit Patient [...] Oral, Daily, 4 refills Flonase 0.05 mg/inh [place], 1 spray(s), Nasal, Daily, 2 refills gabapentin [...] - Not Given Patient Refuses SARS-CoV-2 mRNA (aidenn 5y-11y) vac - Not Given Postpone due to refusal [facility]10-21-2025 NoteGeneral Surgery Office/Clinic Note Chief Complaint consultation for port removal HPI Staff 64 year old female presents to discuss removal of Kzgchy-u-imem. Port placed 07/2024. Completed chemotherapy 12/2024. Port [...] Oral, Daily, 4 refills Flonase 0.05 mg/inh [place], 1 spray(s), Nasal, Daily, 2 refills gabapentin 300 mg Cap, See Instructions gabapentin 300 mg Cap, See Instructions Handicap Placa (more content not included)...[facility]:Result Comment: Electronically Signed By: APARNA PRATT, Roshan Hargrove\Date and Time Signed: 06/24/25 14:12 [id number] NotePatient Education Cardiovascular Hypertension, Adult Hypertension is [...] Keep all follow-up visits. Medicines ??? Take vnok-onz-eqbzofn and prescription medicines only as told by [...] ??? Hypertension is a (more content not included)...[facility] 06-16-2025 NotePatient Education Cardiovascular Managing Your Hypertension [...] changes are not enough (more content not included)...[facility]08-20-2025 Progress [facility] [place] [address] Cancer Center Note Signed Patient: Adelina Mir MR#: [id number] : 1960 Acct:[id number] Age/Sex: 64 / F Type: REG AMB Date of Service: 04/23/25 Copies to: Michael Holley MD~ Assessment & Plan A/P (1) Breast cancer, left: (2) Osteopenia: Plan Based on the biopsy done on 01/10/2024 it reveals pT1c, pNX, ER positive, SC positive, HER2/pat negative (1+), no DCIS, tumor [...] skin sparing with immediate reconstruction with tissue director of corporate sponsorships by Dr. Bustamante. Surgical path from surgery [...] extension is present. ER positive over 90%, SC +80%, HER2 negative (1+), Ki-67 3% Treatment [...] history. Asked her to try the magnesium kyxg-jtt-fxwmucn once daily for the licorice for couple [...] invasive ductal carcinoma grade 2, ER positive, SC positive, HER2/pat negative 1+, 1.7 cm at [...] Lymphovascular Invasion. Breast Hormone Profile ER: Positive SC: Positive HER2/pat by immunostain: Negative (1+) CAP [...] left breast cancer that is ER positive SC positive and HER2/pat negative but nolymph nodes [...] skin sparing with immediate reconstruction with tissue director of corporate sponsorships by Dr. Bustamante. Surgical path from surgery [...] extension is present. ER positive over 90%, SC +80%, HER2 negative (1+), Ki-67 3% 07/31/24: [...] No concerns voiced at time of intake. [facility] Medical History Medical History Breast cancer, left [...] MD DD/ 1120 Signed By: 04/23/25 1213 [facility]07-22-2025 NotePatient Education Neurology Neuropathic Pain Neuropathic pain [...] this treated? Treatment for neuropathic pain may private branch exchange operator time. You may need to try different treatment options or a combination of treatments. Some options include: ??? Treating the underlying cause of the neuropathy, such as diabetes, kidney disease, or vitamin deficiencies. ??? Stopping medicines that can cause neuropathy, such as chemotherapy. ??? Medicine to relieve pain. Medicines may include: ? Prescription or jcpq-ucv-cliexlf pain medicine. ? Anti-seizure medicine. ? Antidepressant [...] these instructions at home: Medicines ??? Take lkwy-uje-ppzgkyy and prescription medicines only as told by your health care provider. ??? Ask your health care provider if the medicine prescribed to you: ? Requires you to avoid driving or using machinery. ? Can cause constipation. You may need to take these actions to prevent or treat constipation: ? Drink enough fluid to keep your urine pale yellow. ? Take plhh-ynl-rwlxtfr or prescription medicines. ? Eat foods that [...] contain nicotine or t (more content not included)...[facility]06-03-2025 Evaluation note* Diagnosis Onset Date Resolution Status Admit Date Breast cancer, left acuteJune 2024 10:59amBreast cancer, leftacuteJune 2024 10:46am NeuropathyacuteJune 2024 10:46amBreast cancer, leftacuteJuly 2024 10:43amBreast cancer, leftacuteAugust 2024 10:30am [facility] Work Phone: 1(143) 481-109306-03-2025 Evaluation note* Diagnosis Onset Date Resolution Status Admit Date Breast cancer, left acuteJune 2024 10:59amBreast cancer, leftacuteJune 2024 10:46am NeuropathyacuteJune 2024 10:46amBreast cancer, leftacuteJuly 2024 10:43amBreast cancer, leftacuteAugust 2024 10:30amAdjustment disorder with mixed anxiety and depressed moodacuteAugust 2024 7:32amBreast cancer, left acuteAugust 2024 7:32amCancer associated painacuteAugust 2024 7:32am Breast cancer, leftacuteAugust 2024 11:06amOsteopeniainactiveAugust 2024 11:06am [facility] Work Phone: 1(186) 813-692506-03-2025 Progress [facility] [place] [address] Cancer Center Note Signed Patient: Adelina Mir MR#: [id number] : 1960 Acct:[id number] Age/Sex: 64 / F Type: REG AMB Date of Service: 02/04/25 Copies to: MD Roshan Ballard MD FACS Samuel E Ross MD~ Assessment & Plan (1) Breast cancer, left: Plan: CT simulation-DIBH for cardiac sparing, postmastectomy radiation 42.5 Fraser in 16fractions delivereddaily Assessment: 64-year-old female with [id number] invasive ductal carcinoma of the left breast, ER/SC positive HER2 negative. She is status post [...] nipple uninvolved by DCIS or invasive carcinoma. [place] lymph node biopsy showed 3 of 8 [...] and lateral surgical margins. Negative for LVSI. ER/SC positive, HER2 negative. Final pathology pT1c NX [...] nipple uninvolved by DCIS or invasive carcinoma. [place] lymphnode biopsy showed 3 of 8 lymph [...] Fall Precaution Measures Taken: Patient in chair [facility] Medical History Medical History Breast cancer, left [...] No Dictated By: Linnette Elizabeth MD DD/ 0829 Signed By: 02/04/25 1130 [facility]04-30-2025 Progress note Author Elda Hurtado [facility] HospitalNote Date/TimeApril 2024 1:20[place] [address] Palliative Medicine Encounter Patient: Adelina Mir MR#: [id number] : 1960 Acct:[id number] Age/Sex: 64 / F Copies to: SOLA [...] and Marijuana Substance Abuse Comment: marijuana medical [place] Symptom Assessment Scale Pain: c/o increased neuropathy [...] recorder, note dictated by Elda Hurtado APRN, ANIMAL CONTROL SUPERVISOR-C ACHPN Dictated By: Elda Hurtado APRN DD/ 1058 Signed By: <Electronically signed by SOLA Hurtado> 01/01/25 1320 [facility] Work Phone: 1(629) 662-773504-30-2025 [place] [id number] Palliative Medicine Encounter Patient: Adelina Mir MR#: [id number] : 1960 Acct:[id number] Age/Sex: 64 / F Copies to: SOLA [...] and Marijuana Substance Abuse Comment: marijuana medical [place] Symptom Assessment Scale Pain: c/o increased neuropathy [...] Assessment & Plan (1) Neuropathy: Plan: As Alananh completes her 12 cycle of weekly Taxol, [...] recorder, note dictated by Elda Hurtado APRN, ANIMAL CONTROL SUPERVISOR-C ACHPN Dictated By: Elda Hurtado APRN DD/ 1058 Signed By: 01/01/25 1320 [facility]04-30-2025 Evaluation note* Diagnosis Onset Date Resolution Status Admit Date Breast cancer, left acuteApril 2024 8:21amNeuropathyacuteApril 2024 8:21amBreast cancer, leftacuteApril 2024 9:37amOsteopeniainactiveApril 2024 9:37amBreast cancer, leftacuteJune 2024 10:59amBreast cancer, leftacuteJune 2024 10:46amNeuropathyacuteJune 2024 10:46am [facility] Work Phone: 1(340) 897-765604-30-2025 Progress [facility]Un[facility] [place] [address] Cancer Center Note Signed Patient: Adelina Mir MR#: [id number] : 1960 Acct:[id number] Age/Sex: 64 / F Type: REG AMB Date of Service: 01/01/25 Copies to: Michael Holley MD~ Assessment & Plan A/P (1) Breast cancer, left: (2) Osteopenia: Plan Based on the biopsy done on 01/10/2024 it reveals pT1c, pNX, ER positive, SC positive, HER2/pat negative (1+), no DCIS, tumor [...] skin sparing with immediate reconstruction with tissue director of corporate sponsorships by Dr. Bustamante. Surgical path from surgery [...] extension is present. ER positive over 90%, SC +80%, HER2 negative (1+), Ki-67 3% Treatment [...] invasive ductal carcinoma grade 2, ER positive, SC positive, HER2/pat negative 1+, 1.7 cm at [...] Lymphovascular Invasion. Breast Hormone Profile ER: Positive SC: Positive HER2/pat by immunostain: Negative (1+) CAP [...] left breast cancer that is ER positive SC positive and HER2/pat negative but nolymph nodes [...] skin sparing with immediate reconstruction with tissue director of corporate sponsorships by Dr. Bustamante. Surgical path from surgery [...] extension is present. ER positive over 90%, SC +80%, HER2 negative (1+), Ki-67 3% 07/31/24: [...] Scheduled to meet with Dr Elizabeth 02/04/2025. [facility] Medical History Medical History Breast cancer, left [...] Glez MD DD/ 0939 Signed By: 01/01/[address] [place], [place] 8152704-17-2025 [place] [address] Palliative Medicine Encounter Patient: Adelina Mir MR#: [id number] : 1960 Acct:[id number] Age/Sex: 64 / F Copies to: SOLA [...] mg PO QDAY 30 days #30 caps 02/26/25 04/09/25 release furosemide 20 mg tablet (Lasix) 20 [...] and Marijuana Substance Abuse Comment: marijuana medical [place] Symptom Assessment Scale Pain: bilateral feet pain, [...] recorder, note dictated by Elda Hurtado APRN, ANIMAL CONTROL SUPERVISOR-C ACHPN Dictated By: Elda Hurtado APRN DD/ 1158 Signed By: 12/23/24 1654 [facility]04-09-2025 Evaluation note* Diagnosis Onset Date Resolution Status Admit Date Breast cancer, left acuteApril 2024 10:36amOsteopeniainactiveApril 2024 10:36amAdjustment disorder with mixed anxiety and depressed moodacuteApril 2024 8:51amBreast cancer, leftacuteApril 2024 8:51amCancer associated painacuteApril 2024 8:51amBreast cancer, leftacuteApril 2024 8:21amNeuropathyacuteApril 2024 8:21amBreast cancer, leftacuteApril 2024 9:37amOsteopenia inactiveApril 2024 9:37amBreast cancer, leftacuteJune 2024 10:59am NeuropathyacuteJune 2024 10:46am [facility] Work Phone: 1(271) [phone] Progress [facility]UnH[facility] [place] [address] Cancer Center Note Signed Patient: Adelina Mir MR#: [id number] : 1960 Acct:[id number] Age/Sex: 64 / F Type: REG AMB Date of Service: 12/11/24 Copies to: Michael Holley MD~ Assessment & Plan A/P (1) Breast cancer, left: (2) Osteopenia: Plan Based on the biopsy done on 01/10/2024 it reveals pT1c, pNX, ER positive, SC positive, HER2/pat negative (1+), no DCIS, tumor [...] skin sparing with immediate reconstruction with tissue director of corporate sponsorships by Dr. Bustamante. Surgical path from surgery [...] extension is present. ER positive over 90%, SC +80%, HER2 negative (1+), Ki-67 3% Treatment [...] invasive ductal carcinoma grade 2, ER positive, SC positive, HER2/pat negative 1+, 1.7 cm at [...] Lymphovascular Invasion. Breast Hormone Profile ER: Positive SC: Positive HER2/pat by immunostain: Negative (1+) CAP [...] left breast cancer that is ER positive SC positive and HER2/pat negative but nolymph nodes [...] skin sparing with immediate reconstruction with tissue director of corporate sponsorships by Dr. Bustamante. Surgical path from surgery [...] extension is present. ER positive over 90%, SC +80%, HER2 negative (1+), Ki-67 3% 07/31/24: [...] labs for review, prior to treatment today. [facility] History Attestation statement: The following information was [...] RESULTS Corrected WBC 4.3 X10E3/uL (3.8-11.6) 12/10/24 14:00 5 Hgb 10.6 g/dL (11.8-15.4) L 12/10/24 14:00 5 Hct 31.2 % (34.0-46.4) L 12/10/24 14:00 12/10/24 MCV 103.0 fl (80-100) H 12/10/24 14:00 12/10/24 RDW 17.5 % (11.9-15.3) H 12/10/24 14:00 12/10/24 Plt Count 225 x10E3/uL (150-450) 12/10/24 14:00 12/10/24 Sodium 138 mmol/L (136-145) 12/10/24 14:00 12/10/24 Potassium 4.4 mmol/L (3.5-5.1) 12/10/24 14:00 12/10/24 BUN 16 mg/dL (7-25) 12/10/24 14:00 12/10/24 Creatinine 0.90 mg/dL (0.60-1.20) 12/10/24 14:00 12/10/24 Glucose 100 mg/dL (70-100) 12/10/24 14:00 12/10/24 Est GFR (CKD-EPI) > 60.0 mL/Min 12/10/24 14:00 12/10/24 Calcium 9.8 mg/dL (8.6-10.3) 12/10/24 14:12/10/24 Total Bilirubin 0.3 mg/dl (0.3-1.0) 12/10/24 14:00 12/10/24 AST 20 U/L (13-39) 12/10/24 14:00 12/10/24 ALT 12 U/L (7-52) 12/10/24 14:12/10/24 Alkaline Phosphatase 57 U/L (34-104) 12/10/24 14:12/10/24 Total Protein 6.7 gm/dL (6.4-8.9) 12/10/24 14:12/10/24 Albumin 3.9 gm/dL (3.5-5.7) 12/10/24 14:12/10/24 Social Determinants of Health Screening SDOH last [...] Glez MD DD/ 1038 Signed By: 12/11/[address] [place], [place] [address]3-26-2025 Evaluation note* Diagnosis Onset Date Resolution Status [...] 2024 9:37amBreast cancer, left acuteJune 2024 10:59am [facility] Work Phone: 1(722) 570-322103-03-2025 Radiology [facility] [place] [address] [place] [address] CT Scan Report Signed Patient: Adelina Mir MR#: [id number] : 1960 Acct:[id number] Age/Sex: 64 / F ADM Date: 03/03/2 5 Loc: CT Room: Type: [facility] Attending Dr: Roshan Reynoso MD Copies to: [...] effusion. Impression dictated by: Jayden Cabral Jr., Jaylyn11/04/2024 2:37 PM Dictation Location: [place] [address] Transcribed By: [facility] 11/04/24 1437 Dictated By: Jayden Cabral Jr, DO 11/04/24 1434 Signed By: 11/04/24 143 [facility]02-26-2025 Progress noteUnHCA [facility] [place] [address] Cancer Center Note Signed Patient: Adelina Mir MR#: [id number] : 1960 Acct:[id number] Age/Sex: 64 / F Type: REG AMB Date of Service: 10/30/24 Copies to: Michael Holley MD~ Assessment & Plan A/P (1) Breast cancer, left: (2) Osteopenia: Plan Based on the biopsy done on 01/10/2024 it reveals pT1c, pNX, ER positive, SC positive, HER2/pat negative (1+), no DCIS, tumor [...] skin sparing with immediate reconstruction with tissue director of corporate sponsorships by Dr. Bustamante. Surgical path from surgery [...] extension is present. ER positive over 90%, SC +80%, HER2 negative (1+), Ki-67 3% Treatment [...] invasive ductal carcinoma grade 2, ER positive, SC positive, HER2/pat negative 1+, 1.7 cm at [...] Lymphovascular Invasion. Breast Hormone Profile ER: Positive SC: Positive HER2/pat by immunostain: Negative (1+) CAP [...] left breast cancer that is ER positive SC positive and HER2/pat negative but nolymph nodes [...] skin sparing with immediate reconstruction with tissue director of corporate sponsorships by Dr. Bustamante. Surgical path from surgery [...] extension is present. ER positive over 90%, SC +80%, HER2 negative (1+), Ki-67 3% 07/31/24: She is here for 1 week toxicity check after [facility]. She tolerated C1 without [...] No concerns voiced at time of intake. [facility] Medical History Medical History (Updated 10/20/24 @ [...] 13:10/29/24 Hct 26.1 % (34.0-46.4) L 10/29/24 13:25 MCV 99.0 fl (80-100) 10/29/24 13:10/29/24 RDW 19.9 % (11.9-15.3) H 10/29/24 13:10/29/24 Plt Count 145 x10E3/uL (150-450) L 10/29/24 13: Sodium 137 mmol/L (136-145) 10/29/24 13:10/29/24 Potassium 3.9 mmol/L (3.5-5.1) 10/29/24 13:10/29/24 BUN 15 mg/dL (7-25) 10/29/24 13:10/29/24 Creatinine 0.77 mg/dL (0.60-1.20) 10/29/24:10/29/24 Glucose 109 mg/dL (70-100) H 10/29/24 13:10/29/24 Est GFR (CKD-EPI) > 60.0 mL/Min 10/29/24 13:10/29/24 Calcium 9.7 mg/dL (8.6-10.3) 10/29/24 13:10/29/24 Total Bilirubin 0.5 mg/dl (0.3-1.0) 10/29/24:10/29/24 AST 25 U/L (13-39) 10/29/24 13:10/29/24 ALT 16 U/L (7-52) 10/29/24 13:10/29/24 Alkaline Phosphatase 67 U/L (34-104) 10/29/24 13:10/29/24 Iron 81 ug/dL (50-212) 10/29/24 13:10/29/24 Iron Saturation 25.2 % (20-50) 10/29/24 13:10/29/24 Ferritin 459.1 ng/mL (11.0-306.8) H 10/29/24 13:10/06 Total Protein 6.9 gm/dL (6.4-8.9) 10/29/24 13:10/29/24 [...] Glez MD DD/ 1000 Signed By: 10/30/24 1029 [facility]02-12-2025 Evaluation note* Diagnosis Onset Date Resolution Status [...] cancer, leftacuteApril 2024 9:37amOsteopenia inactiveApril 2024 9:37am [facility] Work Phone: 1(676) 307-961602-12-2025 Progress [facility] [place] [address] Cancer Center Note Signed Patient: Adelina Mir MR#: [id number] : 1960 Acct:[id number] Age/Sex: 64 / F Type: REG AMB Date of Service: 10/16/24 Copies to: Michael Holley MD~ Assessment & Plan A/P (1) Breast cancer, left: (2) Osteopenia: Plan Based on the biopsy done on 01/10/2024 it reveals pT1c, pNX, ER positive, SC positive, HER2/pat negative (1+), no DCIS, tumor [...] skin sparing with immediate reconstruction with tissue director of corporate sponsorships by Dr. Bustamante. Surgical path from surgery [...] extension is present. ER positive over 90%, SC +80%, HER2 negative (1+), Ki-67 3% Treatment [...] of 3 Cycle Day Next Admin 28 No Active Chemotherapy History of Present [...] invasive ductal carcinoma grade 2, ER positive, SC positive, HER2/pat negative 1+, 1.7 cm at [...] Lymphovascular Invasion. Breast Hormone Profile ER: Positive SC: Positive HER2/pat by immunostain: Negative (1+) CAP [...] left breast cancer that is ER positive SC positive and HER2/pat negative but nolymph nodes [...] skin sparing with immediate reconstruction with tissue director of corporate sponsorships by Dr. Bustamante. Surgical path from surgery [...] extension is present. ER positive over 90%, SC +80%, HER2 negative (1+), Ki-67 3% 07/31/24: She is here for 1 week toxicity check after cycle 1 of dose dense AC obtained [facility] on 07/24/2024. She tolerated C1 without [...] labs for review. Scheduled for treatment today. [facility] Medical History Medical History Osteopenia Encounter for [...] 10/15/24 09: Hgb 8.1 g/dL (11.8-15.4) L 10/15/24:10/15/24 Hct 23.9 % (34.0-46.4) L 10/15/24:10/15/24 MCV 98.0 fl (80-100) 10/15/24:10/15/24 RDW 18.9 % (11.9-15.3) H 10/15/24 09:59 10/15/24 Plt Count 254 x10E3/uL (150-450) 10/15/24 09:59 10/15/24 Sodium 138 mmol/L (136-145) 10/15/24 09:59 10/15/24 Potassium 4.2 mmol/L (3.5-5.1) 10/15/24 09:10/15/24 BUN 14 mg/dL (7-25) 10/15/24 09:59 10/15/24 Creatinine 0.75 mg/dL (0.60-1.20) 10/15/24 09:10/15/24 Glucose 100 mg/dL (70-100) 10/15/24 09:59 10/15/24 Est GFR (CKD-EPI) > 60.0 mL/Min 10/15/24 09:59 10/15/24 Calcium 9.3 mg/dL (8.6-10.3) 10/15/24 09:10/15/24 Total Bilirubin 0.3 mg/dl (0.3-1.0) 10/15/24 09:59 10/15/24 AST 18 U/L (13-39) 10/15/24 09:59 10/15/24 ALT 12 U/L (7-52) 10/15/24 09:59 10/15/24 Alkaline Phosphatase 93 U/L (34-104) 10/15/24 09:59 [...] Glez MD DD/ 0947 Signed By: 10/16/24 1018 [facility]02-03-2025 Radiology Diagnostic study note [facility] [place] [address] [place] [address] CT Scan Report Signed Patient: Adelina Mir MR#: [id number] : 1960 Acct:[id number] Age/Sex: 64 / F ADM Date: 5 Loc: CT Room: Type: [facility] Attending Dr: Roshan Reynoso MD Copies to: [...] resolution. Impression dictated by: Jayden Cabral Jr., D.OLucila10/07/2024 2:22 PM Dictation Location: [place] [address] Transcribed By: [facility] 10/07/24 1422 Dictated By: Jayden Cabral Jr, DO 10/07/24 1417 Signed By: 10/07/24 1422 [facility]01-30-2025 Evaluation note* Diagnosis Onset Date Resolution Status [...] leftacuteApril 2024 8:51amCancer associated painacuteApril 2024 8:51am [facility] Work Phone: 1(403) 160-388501-30-2025 Evaluation note* Diagnosis Onset Date Resolution Status [...] painacuteApril 2024 7:46amNeuropathyacute December 25, 2024 7:46am [facility] Work Phone: 1(124) 184-485101-30-2025 Evaluation note* Diagnosis Onset Date Resolution Status [...] 8:21amBreast cancer, leftacuteApril 2024 9:37amOsteopeniainactiveApril 2024 9:37am [facility] Work Phone: 1(239) 621-851001-30-2025 [facility] [place] [address] Cancer Center Note Signed Patient: Adelina Mir MR#: [id number] : 1960 Acct:[id number] Age/Sex: 64 / F Type: REG AMB Date of Service: 10/03/24 Copies to: Michael Holley MD~ Assessment & Plan A/P (1) Breast cancer, left: (2) Osteopenia: Plan Based on the biopsy done on 01/10/2024 it reveals pT1c, pNX, ER positive, SC positive, HER2/pat negative (1+), no DCIS, tumor [...] skin sparing with immediate reconstruction with tissue director of corporate sponsorships by Dr. Bustamante. Surgical path from surgery [...] extension is present. ER positive over 90%, SC +80%, HER2 negative (1+), Ki-67 3% Treatment [...] invasive ductal carcinoma grade 2, ER positive, SC positive, HER2/pat negative 1+, 1.7 cm at [...] Lymphovascular Invasion. Breast Hormone Profile ER: Positive SC: Positive HER2/pat by immunostain: Negative (1+) CAP [...] left breast cancer that is ER positive SC positive and HER2/pat negative but nolymph nodes [...] skin sparing with immediate reconstruction with tissue director of corporate sponsorships by Dr. Bustamante. Surgical path from surgery [...] extension is present. ER positive over 90%, SC +80%, HER2 negative (1+), Ki-67 3% 07/31/24: She is here for 1 week toxicity check after cycle [facility]. She tolerated C1 without [...] review. States she is feeling much better. [facility] Medical History Medical History Osteopenia Encounter for [...] 14:10/03/24 RDW 16.5 % (11.9-15.3) H 10/03/24 14:10/03/24 Plt Count 321 x10E3/uL (150-450) 10/03/24 14:10/03/24 Sodium 137 mmol/L (136-145) 10/03/24 14:10/03/24 Potassium 4.2 mmol/L (3.5-5.1) 10/03/24 14:08 10/03/24 [...] MD DD/ 1452 Signed By: 10/03/24 1518 [facility]01-22-2025 Progress note Author Roshan Reynoso [facility] Date/TimeJanuary 2024 10:03am [place] [address] Infect. Disease Progress Note Signed Patient: Adelina Mir MR#: [id number] : 1960 Acct:[id number] Age/Sex: 64 / F Adm Date: 5 Loc: 4 Room: [address] [place] [address] Type: ADM IN Attending Dr: Joe Garcia [...] Dose: 10 mg Fluticasone Propionate (Fluticasone Propionate [place] 120 [place]/16 Gm Bottle) 1 spray INTRANASAL BIDSCH Stop: 09/17/25 20:59 Last Admin: 09/25/24 09:25 Dose: 1 spray Gabapentin (Gabapentin 300 Mg Capsule) 300 mg PO TID [facility] Stop: 09/17/25 21:59 Last Admin: 09/25/24 09:24 Dose: 300 mg Guaifenesin (Guaifenesin 600 Mg Tab.Er.12h) 1,200 mg PO BID [facility] Stop: 09/17/25 20:59 Last Admin: 09/25/24 09:24 Dose: 1,200 mg Heparin Sodium (Porcine) (Heparin 5,000 Unit/Ml Vial) 5,000 unit SUBCUT Q8HR [facility] Stop: 09/23/25 21:59 Last Admin: 09/25/24 06:41 Dose: 5,000 unit Meropenem (Merrem) 1 gm in 100 mls @ 200 mls/hr IV Q8H [facility] Last Admin: 09/25/24 09:45 Dose: 200 mls/hr Ipratropium Misenheimer (Ipratropium Misenheimer 0.5 Mg/2.5 Ml Vial.Neb) 0.5 mg INHALATION QID.RESP [facility] Stop: 09/19/25 11:59 Last Admin: 09/25/24 05:32 Dose: Not Given Metoprolol Succinate (Metoprolol Succinate 50 Mg Tab.Er.24h) 50 mg PO DAILY [facility] Stop: 09/21/25 08:59 Last Admin: 09/25/24 09:24 Dose: 50 mg Oxycodone/Acetaminophen (Oxycodone/Acetaminophen 5-325 Mg Tablet) 1 tab PO [id number] PRN Reason: pain Last Admin: 09/25/24 09:24 Dose: 1 tab Pantoprazole Sodium (Pantoprazole 40 Mg Tablet.Dr) 40 mg PO DAILY [facility] Stop: 09/21/25 08:59 Last Admin: 09/25/24 09:23 [...] Roshan Reynoso MD 09/25/24 0958 Signed By: <Electronically signed by MD Roshan Reynoso> 09/25/24 9619 [facility] Work Phone: 1(394) 777-546301-22-2025 [place] [address] Infect. Disease Progress Note Signed Patient: Adelina Mir MR#: [id number] : 1960 Acct:[id number] Age/Sex: 64 / F Adm Date: 5 Loc: Room: [address] [place] [address] Type: ADM IN Attending Dr: Joe Garcia [...] Dose: 10 mg Fluticasone Propionate (Fluticasone Propionate Macedon 120 Macedon/16 Gm Bottle) [facility] Stop: 09/17/25 20:59 Last Admin: 09/25/24 09:25 Dose: 1 spray Gabapentin (Gabapentin 300 Mg Capsule) 300 mg PO TID [facility] Stop: 09/17/25 21:59 Last Admin: 09/25/24 09:24 Dose: 300 mg Guaifenesin (Guaifenesin 600 Mg Tab.Er.12h) 1,200 mg PO BID [facility] Stop: 09/17/25 20:59 Last Admin: 09/25/24 09:24 Dose: 1,200 mg Heparin Sodium (Porcine) (Heparin 5,000 Unit/Ml Vial) 5,000 unit SUBCUT Q8HR [facility] Stop: 09/23/25 21:59 Last Admin: 09/25/24 06:41 Dose: 5,000 unit Meropenem (Merrem) 1 gm in 100 mls @ 200 mls/hr IV Q8H [facility] Last Admin: 09/25/24 09:45 Dose: 200 mls/hr Ipratropium Misenheimer (Ipratropium Misenheimer 0.5 Mg/2.5 Ml Vial.Neb) 0.5 mg INHALATION QID.RESP [facility] Stop: 09/19/25 11:59 Last Admin: 09/25/24 05:32 Dose: Not Given Metoprolol Succinate (Metoprolol Succinate 50 Mg Tab.Er.24h) 50 mg PO DAILY [facility] Stop: 09/21/25 08:59 Last Admin: 09/25/24 09:24 Dose: 50 mg Oxycodone/Acetaminophen (Oxycodone/Acetaminophen 5-325 Mg Tablet) 1 tab PO [id number] PRN Reason: pain Last Admin: 09/25/24 09:24 Dose: 1 tab Pantoprazole Sodium (Pantoprazole 40 Mg Tablet.Dr) 40 mg PO DAILY [facility] Stop: 09/21/25 08:59 Last Admin: 09/25/24 09:23 [...] MD 09/25/24 0958 Signed By: 09/25/24 1003 [facility]01-21-2025 Progress note Author Joe Garcia [facility] Date/TimeJanuary 2024 1:22pm [place] [address] Hospitalist Progress Note Signed Patient: Adelina Mir MR#: [id number] : 1960 Acct:[id number] Age/Sex: 63 / F Adm Date: 5 Loc: Room: 8T2626-5 Type: ADM IN Attending Dr: Joe Garcia [...] spray 09/17/24 21:00 09/24/24 08:47 Fluticasone Propionate Macedon 120 Macedon/16 Gm Bottle INTRANASAL 09/17/25 20:59 1 spray [...] 09/24/24 18:00 Merrem IV Q8H IVY Ipratropium Misenheimer 0.5 mg 09/19/24 12:00 09/24/24 11:59 Ipratropium Misenheimer 0.5 Mg/2.5 Ml Vial.Neb INHALATION 09/19/25 11:59 [...] 09/21/24 09:00 09/24/24 08:47 Pantoprazole 40 Mg Tablet. PO 09/21/25 08:59 [...] <Electronically signed by Joe Garcia MD> 09/24/[address] [place] [address] Work Phone: 1(312) 773-926001-21-2025 [place] [address] Hospitalist Progress Note Signed Patient: Adelina Mir MR#: [id number] : 1960 Acct:[id number] Age/Sex: 63 / F Adm Date: 5 Loc: Room: [address] [place] [address] Type: ADM IN Attending Dr: Joe Garcia [...] spray 09/17/24 21:00 09/24/24 08:47 Fluticasone Propionate [place] 120 [place]/16 Gm Bottle INTRANASAL 09/17/25 20:59 1 spray [...] 09/24/24 18:00 Merrem IV Q8H IVY Ipratropium Misenheimer 0.5 mg 09/19/24 12:00 09/24/24 11:59 Ipratropium Misenheimer 0.5 Mg/2.5 Ml Vial.Neb INHALATION 09/19/25 11:59 [...] 09/21/24 09:00 09/24/24 08:47 Pantoprazole 40 Mg Tablet. PO 09/21/25 08:59 [...] MD 09/24/24 13 20 Signed By: 09/24/24 1322 [facility]01-21-2025 Progress note Author Roshan Reynoso [facility] Date/TimeJanuary 2024 10:11am [place] [address] Infect. Disease Progress Note Signed Patient: Adelina Mir MR#: [id number] : 1960 Acct:[id number] Age/Sex: 63 / F Adm Date: 5 Loc: Room: [address] [place] [address] Type: ADM IN Attending Dr: Joe Garcia [...] Dose: 10 mg Fluticasone Propionate (Fluticasone Propionate Macedon 120 Macedon/16 Gm Bottle) 1 [facility] Stop: 09/17/25 20:59 Last Admin: 09/24/24 08:47 Dose: 1 spray Gabapentin (Gabapentin 300 Mg Capsule) 300 mg PO TID [facility] Stop: 09/17/25 21:59 Last Admin: 09/24/24 08:46 Dose: 300 mg Guaifenesin (Guaifenesin 600 Mg Tab.Er.12h) 1,200 mg PO BID [facility] Stop: 09/17/25 20:59 Last Admin: 09/24/24 08:46 Dose: 1,200 mg Heparin Sodium (Porcine) (Heparin 5,000 Unit/Ml Vial) 5,000 unit SUBCUT Q8HR [facility] Stop: 09/23/25 21:59 Last Admin: 09/24/24 05:54 Dose: 5,000 unit Ipratropium Misenheimer (Ipratropium Misenheimer 0.5 Mg/2.5 Ml Vial.Neb) 0.5 mg INHALATION QID.RESP [facility] Stop: 09/19/25 11:59 Last Admin: 09/24/24 07:57 Dose: Not Given Meropenem (Meropenem 1 Gm/20 Ml Syringe) 1 gm IV-PUSH Q8H [facility] Last Admin: 09/24/24 02:07 Dose: 1 gm Metoprolol Succinate (Metoprolol Succinate 50 Mg Tab.Er.24h) 50 mg PO DAILY [facility] Stop: 09/21/25 08:59 Last Admin: 09/24/24 08:46 Dose: 50 mg Morphine Sulfate (Morphine Sulfate 2 Mg/Ml Vial) 2 mg IV-PUSH Q4H PRN PRN Reason: Pain Scale 8 - 10 Last Admin: 09/23/24 07:37 Dose: 2 mg Oxycodone/Acetaminophen (Oxycodone/Acetaminophen 5-325 Mg Tablet) 1 tab PO [id number] PRN Reason: pain Last Admin: 09/24/24 05:53 Dose: 1 tab Pantoprazole Sodium (Pantoprazole 40 Mg Svetlana.) 40 mg PO DAILY [facility] Stop: 09/21/25 08:59 Last Admin: 09/24/24 08:47 [...] signed by MD Roshan Reynoso> 09/24/24 1011 [facility] Work Phone: 1(641) 616-817901-21-2025 Progress note Author Roshan Reynoso [facility] Date/TimeJanuary 2024 10:05am [place] [address] Infect. Disease Progress Note Signed Patient: Adelina Mir MR#: [id number] : 1960 Acct:[id number] Age/Sex: 63 / F Adm Date: 5 Loc: Room: [address] [place] [address] Type: ADM IN Attending Dr: Joe Garcia [...] Dose: 10 mg Fluticasone Propionate (Fluticasone Propionate Macedon 120 Macedon/16 Gm Bottle) 1 spray INTRANASAL BIDSCH Stop: 09/17/25 20:59 Last Admin: 09/22/24 21:02 Dose: 1 spray Gabapentin (Gabapentin 300 Mg Capsule) 300 mg PO TID [facility] Stop: 09/17/25 21:59 Last Admin: 09/22/24 21:01 Dose: 300 mg Guaifenesin (Guaifenesin 600 Mg Tab.Er.12h) 1,200 mg PO BID [facility] Stop: 09/17/25 20:59 Last Admin: 09/22/24 21:01 Dose: 1,200 mg Ipratropium Misenheimer (Ipratropium Misenheimer 0.5 Mg/2.5 Ml Vial.Neb) 0.5 mg INHALATION QID.RESP [facility] Stop: 09/19/25 11:59 Last Admin: 09/22/24 21:32 Dose: Not Given Meropenem (Meropenem 1 Gm/20 Ml Syringe) 1 gm IV-PUSH Q8H [facility] Last Admin: 09/23/24 02:58 Dose: 1 gm Metoprolol Succinate (Metoprolol Succinate 50 Mg Tab.Er.24h) 50 mg PO DAILY [facility] Stop: 09/21/25 08:59 Last Admin: 09/22/24 08:15 Dose: 50 mg Morphine Sulfate (Morphine Sulfate 2 Mg/Ml Vial) 2 mg IV-PUSH Q4H PRN PRN Reason: Pain Scale 8 - 10 Last Admin: 09/23/24 07:37 Dose: 2 mg Oxycodone/Acetaminophen (Oxycodone/Acetaminophen 5-325 Mg Tablet) 1 tab PO [id number] PRN Reason: pain Last Admin: 09/22/24 23:53 Dose: 1 tab Pantoprazole Sodium (Pantoprazole 40 Mg Tablet.) 40 mg PO DAILY [facility] Stop: 09/21/25 08:59 Last Admin: 09/22/24 08:15 [...] <Electronically signed by MD Roshan Reynoso> 09/24/24 0124 [facility] Work Phone: 1(799) 204-868301-21-2025 [place] [id number] Infect. Disease Progress Note Signed Patient: Adelina Mir MR#: [id number] : 1960 Acct:[id number] Age/Sex: 63 / F Adm Date: 5 Loc: Room: [address] [place] [address] Type: ADM IN Attending Dr: Joe Garcia [...] Dose: 10 mg Fluticasone Propionate (Fluticasone Propionate Macedon 120 Macedon/16 Gm Bottle) 1 spray [facility] Stop: 09/17/25 20:59 Last Admin: 09/24/24 08:47 Dose: 1 spray Gabapentin (Gabapentin 300 Mg Capsule) 300 mg PO TID [facility] Stop: 09/17/25 21:59 Last Admin: 09/24/24 08:46 Dose: 300 mg Guaifenesin (Guaifenesin 600 Mg Tab.Er.12h) 1,200 mg PO BID [facility] Stop: 09/17/25 20:59 Last Admin: 09/24/24 08:46 Dose: 1,200 mg Heparin Sodium (Porcine) (Heparin 5,000 Unit/Ml Vial) 5,000 unit SUBCUT Q8HR [facility] Stop: 09/23/25 21:59 Last Admin: 09/24/24 05:54 Dose: 5,000 unit Ipratropium Misenheimer (Ipratropium Misenheimer 0.5 Mg/2.5 Ml Vial.Neb) 0.5 mg INHALATION QID.RESP [facility] Stop: 09/19/25 11:59 Last Admin: 09/24/24 07:57 Dose: Not Given Meropenem (Meropenem 1 Gm/20 Ml Syringe) 1 gm IV-PUSH Q8H [facility] Last Admin: 09/24/24 02:07 Dose: 1 gm Metoprolol Succinate (Metoprolol Succinate 50 Mg Tab.Er.24h) 50 mg PO DAILY [facility] Stop: 09/21/25 08:59 Last Admin: 09/24/24 08:46 Dose: 50 mg Morphine Sulfate (Morphine Sulfate 2 Mg/Ml Vial) 2 mg IV-PUSH Q4H PRN PRN Reason: Pain Scale 8 - 10 Last Admin: 09/23/24 07:37 Dose: 2 mg Oxycodone/Acetaminophen (Oxycodone/Acetaminophen 5-325 Mg Tablet) 1 tab PO [id number] PRN Reason: pain Last Admin: 09/24/24 05:53 Dose: 1 tab Pantoprazole Sodium (Pantoprazole 40 Mg Tablet.Dr) 40 mg PO DAILY [facility] Stop: 09/21/25 08:59 Last Admin: 09/24/24 08:47 [...] MD 09/24/24 1005 Signed By: 09/24/24 1011 [facility]01-21-2025 [place] [address] Infect. Disease Progress Note Signed Patient: Adelina Mir MR#: [id number] : 1960 Acct:[id number] Age/Sex: 63 / F Adm Date: 5 Loc: Room: [address] [place] [address] Type: ADM IN Attending Dr: Joe Garcia [...] Dose: 10 mg Fluticasone Propionate (Fluticasone Propionate [place]on 120 [place]on/16 Gm Bottle) 1 spray INTRANASAL BIDSCH Stop: 09/17/25 20:59 Last Admin: 09/22/24 21:02 Dose: 1 spray Gabapentin (Gabapentin 300 Mg Capsule) 300 mg PO TID [facility] Stop: 09/17/25 21:59 Last Admin: 09/22/24 21:01 Dose: 300 mg Guaifenesin (Guaifenesin 600 Mg Tab.Er.12h) 1,200 mg PO BID [facility] Stop: 09/17/25 20:59 Last Admin: 09/22/24 21:01 Dose: 1,200 mg Ipratropium Misenheimer (Ipratropium Misenheimer 0.5 Mg/2.5 Ml Vial.Neb) 0.5 mg INHALATION QID.RESP [facility] Stop: 09/19/25 11:59 Last Admin: 09/22/24 21:32 Dose: Not Given Meropenem (Meropenem 1 Gm/20 Ml Syringe) 1 gm IV-PUSH Q8H [facility] Last Admin: 09/23/24 02:58 Dose: 1 gm Metoprolol Succinate (Metoprolol Succinate 50 Mg Tab.Er.24h) 50 mg PO DAILY [facility] Stop: 09/21/25 08:59 Last Admin: 09/22/24 08:15 Dose: 50 mg Morphine Sulfate (Morphine Sulfate 2 Mg/Ml Vial) 2 mg IV-PUSH Q4H PRN PRN Reason: Pain Scale 8 - 10 Last Admin: 09/23/24 07:37 Dose: 2 mg Oxycodone/Acetaminophen (Oxycodone/Acetaminophen 5-325 Mg Tablet) 1 tab PO [id number] PRN Reason: pain Last Admin: 09/22/24 23:53 Dose: 1 tab Pantoprazole Sodium (Pantoprazole 40 Mg Tablet.Dr) 40 mg PO DAILY [facility] Stop: 09/21/25 08:59 Last Admin: 09/22/24 08:15 [...] MD 09/23/24 0903 Signed By: 09/24/24 1005 [facility]01-20-2025 Progress note Author Joe Garcia [facility] Date/TimeJanuary 2024 3:48pm [place] [address] Hospitalist Progress Note Signed Patient: Adelina Mir MR#: [id number] : 1960 Acct:[id number] Age/Sex: 63 / F Adm Date: 5 Loc: 4P Room: 3Z5898-3 Type: ADM IN Attending Dr: Joe Garcia [...] spray 09/17/24 21:00 09/23/24 09:59 Fluticasone Propionate Macedon 120 [place]on/16 Gm Bottle INTRANASAL 09/17/25 20:59 1 spray BID IVY Administration Gabapentin 300 mg 09/17/24 22:00 09/23/24 13:24 Gabapentin 300 Mg Capsule PO 09/17/25 21:59 300 mg TID IVY Administration Guaifenesin 1,200 mg 09/17/24 21:00 09/23/24 09:59 Guaifenesin 600 Mg Tab.Er.12h PO 09/17/25 20:59 1,200 mg BID IVY Administration Ipratropium Misenheimer 0.5 mg 09/19/24 12:00 09/22/24 21:32 Ipratropium Misenheimer 0.5 Mg/2.5 Ml Vial.Neb INHALATION 09/19/25 11:59 [...] 09:00 09/23/24 09:59 Pantoprazole 40 [address] Tablet.Dr HARMON 09/21/25 08:59 40 mg DAILY IVY Administration [...] this time, advised to continue conservative management. ROSAMARAI likely secondary to volume depletion due to [...] <Electronically signed by Joe Garcia MD> 09/23/24 1548 [facility] Work Phone: 1(178) 842-450301-20-2025 Progress note Author Jair Weber [facility] Date/TimeJanuary 2024 2:16pm [place] [address] Cardiothoracic Progress Note Signed Patient: Adelina Mir MR#: [id number] : 1960 Acct:[id number] Age/Sex: 63 / F Adm Date: 5 Loc: 4 Room: [address] [place] [address] Type: ADM IN Attending Dr: Joe Garcia [...] N/A N/A Lymph % (Auto) N/A N/A Mcmullen % (Auto) N/A N/A Eos % (Auto) N/A N/A Baso % (Auto) N/A N/A Nucleat RBC Rel Count N/A N/A Neut # (Auto) N/A N/A Lymph # (Auto) N/A N/A Mcmullen # (Auto) N/A N/A Eos # (Auto) [...] Cloudy A Urine pH 6.0 Ur Specific [place] 1.020 Urine Protein 50 H Urine Glucose [...] MPV Neut % (Auto) Lymph % (Auto) Mcmullen % (Auto) Eos % (Auto) Baso % (Auto) Nucleat RBC Rel Count Neut # (Auto) Lymph # (Auto) Mcmullen # (Auto) Eos # (Auto) Baso # [...] Color Urine Appearance Urine pH Ur Specific [place] Urine Protein Urine Glucose (UA) Urine Ketones [...] signed by Jair Weber MD> 09/23/24 1416 [facility] Work Phone: 1([phone] 916-148401-20-2025 [place] [address] Hospitalist Progress Note Signed Patient: Adelina Mir MR#: [id number] : 1960 Acct:[id number] Age/Sex: 63 / F Adm Date: 5 Loc: Room: [address] [place] [address] Type: ADM IN Attending Dr: Joe Garcia [...] spray 09/17/24 21:00 09/23/24 09:59 Fluticasone Propionate [place]on 120 [place]on/16 Gm Bottle INTRANASAL 09/17/25 20:59 1 spray BID IVY Administration Gabapentin 300 mg 09/17/24 22:00 09/23/24 13:24 Gabapentin 300 Mg Capsule PO 09/17/25 21:59 300 mg TID IVY Administration Guaifenesin 1,200 mg 09/17/24 21:00 09/23/24 09:59 Guaifenesin 600 Mg Tab.Er.12h PO 09/17/25 20:59 1,200 mg BID IVY Administration Ipratropium Misenheimer 0.5 mg 09/19/24 12:00 09/22/24 21:32 Ipratropium Misenheimer 0.5 Mg/2.5 Ml Vial.Neb INHALATION 09/19/25 11:59 [...] 09/23/24 15 39 Signed By: 09/23/24 1548 [facility]01-20-[address] [address] Cardiothoracic Progress Note Signed Patient: Adelina Mir MR#: [id number] : 1960 Acct:[id number] Age/Sex: 63 / F Adm Date: 5 Loc: Room: [address] [place] [address] Type: ADM IN Attending Dr: Joe Garcia [...] N/A N/A Lymph % (Auto) N/A N/A Mcmullen % (Auto) N/A N/A Eos % (Auto) N/A N/A Baso % (Auto) N/A N/A Nucleat RBC Rel Count N/A N/A Neut # (Auto) N/A N/A Lymph # (Auto) N/A N/A Mcmullen # (Auto) N/A N/A Eos # (Auto) [...] Cloudy A Urine pH 6.0 Ur Specific [place] 1.020 Urine Protein 50 H Urine Glucose [...] MPV Neut % (Auto) Lymph % (Auto) Mcmullen % (Auto) Eos % (Auto) Baso % (Auto) Nucleat RBC Rel Count Neut # (Auto) Lymph # (Auto) Mcmullen # (Auto) Eos # (Auto) Baso # [...] Color Urine Appearance Urine pH Ur Specific [place] Urine Protein Urine Glucose (UA) Urine Ketones [...] Jair Weber MD 09/23/24 1414 Signed By: 09/23/24 1416 [facility]01-19-2025 Progress note Author Tyree Rdz [facility] Date/TimeJanuary 2024 6:22pm [place] [address] Hospitalist Progress Note Signed Patient: Adelina Mir MR#: [id number] : 1960 Acct:[id number] Age/Sex: 63 / F Adm Date: 5 Loc: 4 Room: [address] [place] [address] Type: ADM IN Attending Dr: Tyree Rdz [...] spray 09/17/24 21:00 09/22/24 08:15 Fluticasone Propionate [place]on 120 [place]on/16 Gm Bottle INTRANASAL 09/17/25 20:59 1 spray BID IVY Administration Gabapentin 300 mg 09/17/24 22:00 09/22/24 13:25 Gabapentin 300 Mg Capsule PO 09/17/25 21:59 300 mg TID IVY Administration Guaifenesin 1,200 mg 09/17/24 21:00 09/22/24 08:15 Guaifenesin 600 Mg Tab.Er.12h PO 09/17/25 20:59 1,200 mg BID IVY Administration Ipratropium Misenheimer 0.5 mg 09/19/24 12:00 09/22/24 15:02 Ipratropium Misenheimer 0.5 Mg/2.5 Ml Vial.Neb INHALATION 09/19/25 11:59 [...] 09/21/24 09:00 09/22/24 08:15 Pantoprazole 40 Mg Tablet. PO 09/21/25 08:59 [...] signed by Tyree Rdz MD> 09/22/24 182 [facility] Work Phone: 1(441) 900-533401-19-2025 Radiology Diagnostic study [facility] [address] [place] [address] CT Scan Report Signed Patient: Adelina Mir MR#: [id number] : 1960 Acct:[id number] Age/Sex: 63 / F ADM Date: 5 Loc: Room: [address] [place] [address] Type: ADM IN Attending Dr: Tyree Rdz [...] Beck Negrete M.D.09/22/2024 6:58 PM Dictation Location: [facility]-- Transcribed By: [facility] 09/22/241857 Dictated By: Beck Negrete MD 09/22/241848 Signed By: 09/22/241857 [facility] Work Phone: 1(743) 226-564401-19-2025 [place] [address] Hospitalist Progress Note Signed Patient: Adelina Mir MR#: [id number] : 1960 Acct:[id number] Age/Sex: 63 / F Adm Date: 5 Loc: Room: [address] [place] [address] Type: ADM IN Attending Dr: Tyree Rdz [...] spray 09/17/24 21:00 09/22/24 08:15 Fluticasone Propionate [place] 120 [place]/16 Gm Bottle INTRANASAL 09/17/25 20:59 1 spray BID IVY Administration Gabapentin 300 mg 09/17/24 22:00 09/22/24 13:25 Gabapentin 300 Mg Capsule PO 09/17/25 21:59 300 mg TID IVY Administration Guaifenesin 1,200 mg 09/17/24 21:00 09/22/24 08:15 Guaifenesin 600 Mg Tab.Er.12h PO 09/17/25 20:59 1,200 mg BID IVY Administration Ipratropium Misenheimer 0.5 mg 09/19/24 12:00 09/22/24 15:02 Ipratropium Misenheimer 0.5 Mg/2.5 Ml Vial.Neb INHALATION 09/19/25 11:59 [...] By: Tyree Rdz MD 09/22/241817 Signed By: 09/22/24 1822 [facility]01-18-2025 Progress note Author Tyree Rdz [facility] Date/TimeJanuary 2024 4:09pm [place] [address] Hospitalist Progress Note Signed Patient: Adelina Mir MR#: [id number] : 1960 Acct:[id number] Age/Sex: 63 / F Adm Date: 5 Loc: Room: [address] [place] [address] Type: ADM IN Attending Dr: Tyree Rdz [...] spray 09/17/24 21:00 09/21/24 08:34 Fluticasone Propionate [place] 120 [place]/16 Gm Bottle INTRANASAL 09/17/25 20:59 1 spray BID IVY Administration Gabapentin 300 mg 09/17/24 22:00 09/21/24 13:40 Gabapentin 300 Mg Capsule PO 09/17/25 21:59 300 mg TID IVY Administration Guaifenesin 1,200 mg 09/17/24 21:00 09/21/24 08:20 Guaifenesin 600 Mg Tab.Er.12h PO 09/17/25 20:59 1,200 mg BID IVY Administration Ipratropium Misenheimer 0.5 mg 09/19/24 12:00 09/21/24 14:01 Ipratropium Misenheimer 0.5 Mg/2.5 Ml Vial.Neb INHALATION 09/19/25 11:59 [...] Tyree Rdz MD 09/21/24 1603 Signed By: <Electronically signed by Tyree Rdz MD> 09/21/24 1602 [facility] Work Phone: 1(216) 346-667101-18-2025 [place] [address] Hospitalist Progress Note Signed Patient: Adelina Mir MR#: [id number] : 1960 Acct:[id number] Age/Sex: 63 / F Adm Date: 5 Loc: Room: [address] [place] [address] Type: ADM IN Attending Dr: Tyree Rdz [...] spray 09/17/24 21:00 09/21/24 08:34 Fluticasone Propionate [place] 120 [place]/16 Gm Bottle INTRANASAL 09/17/25 20:59 1 spray BID IVY Administration Gabapentin 300 mg 09/17/24 22:00 09/21/24 13:40 Gabapentin 300 Mg Capsule PO 09/17/25 21:59 300 mg TID IVY Administration Guaifenesin 1,200 mg 09/17/24 21:00 09/21/24 08:20 Guaifenesin 600 Mg Tab.Er.12h PO 09/17/25 20:59 1,200 mg BID IVY Administration Ipratropium Misenheimer 0.5 mg 09/19/24 12:00 09/21/24 14:01 Ipratropium Misenheimer 0.5 Mg/2.5 Ml Vial.Neb INHALATION 09/19/25 11:59 [...] MD 09/21/24 1603 Signed By: 09/21/24 1609 [facility]01-17-2025 Progress note Author Joe Garcia [facility] Date/TimeJanuary 2024 12:30pm [place] [address] Hospitalist Progress Note Signed Patient: Adelina Mir MR#: [id number] : 1960 Acct:[id number] Age/Sex: 63 / F Adm Date: 5 Loc: Room: [address] [place] [address] Type: ADM IN Attending Dr: Joe Garcia [...] spray 09/17/24 21:00 09/20/24 08:00 Fluticasone Propionate [place] 120 [place]/16 Gm Bottle INTRANASAL 09/17/25 20:59 1 spray BID IVY Administration Gabapentin 300 mg 09/17/24 22:00 09/20/24 08:02 Gabapentin 300 Mg Capsule PO 09/17/25 21:59 300 mg TID IVY Administration Guaifenesin 1,200 mg 09/17/24 21:00 09/20/24 08:00 Guaifenesin 600 Mg Tab.Er.12h PO 09/17/25 20:59 1,200 mg BID IVY Administration Ipratropium Misenheimer 0.5 mg 09/19/24 12:00 09/20/24 11:56 Ipratropium Misenheimer 0.5 Mg/2.5 Ml Vial.Neb INHALATION 09/19/25 11:59 [...] mg 09/21/24 09:00 Pantoprazole [address] HARMON 09/21/25 08:59 DAILY IVY Prochlorperazine Edisylate 5 [...] signed by Joe Garcia MD> 09/20/24 1230 [facility] Work Phone: 1([phone] 258-834101-17-2025 Progress note Author Roshan Reynoso [facility] Date/TimeJanuary 2024 11:43am [place] [address] Infect. Disease Progress Note Signed Patient: Adelina Mir MR#: [id number] : 1960 Acct:[id number] Age/Sex: 63 / F Adm Date: 5 Loc: Room: [address] [place] [address] Type: ADM IN Attending Dr: Joe Garcia [...] Dose: 10 mg Fluticasone Propionate (Fluticasone Propionate [place] 120 [place]/16 Gm Bottle) 1 spray INTRANASAL BIDSCH Stop: 09/17/25 20:59 Last Admin: 09/20/24 08:00 Dose: 1 spray Gabapentin (Gabapentin 300 Mg Capsule) 300 mg PO TID [facility] Stop: 09/17/25 21:59 Last Admin: 09/20/24 08:02 Dose: 300 mg Guaifenesin (Guaifenesin 600 Mg Tab.Er.12h) 1,200 mg PO BID [facility] Stop: 09/17/25 20:59 Last Admin: 09/20/24 08:00 Dose: 1,200 mg Ipratropium Misenheimer (Ipratropium Misenheimer 0.5 Mg/2.5 Ml Vial.Neb) 0.5 mg INHALATION QID.RESP [facility] Stop: 09/19/25 11:59 Last Admin: 09/20/24 10:23 Dose: Not Given Metoprolol Succinate (Metoprolol Succinate 50 Mg Tab.Er.24h) 50 mg PO DAILY [facility] Stop: 09/21/25 08:59 Morphine Sulfate (Morphine Sulfate 2 Mg/Ml Vial) 2 mg IV-PUSH Q4H PRN PRN Reason: Pain Scale 8 - 10 Last Admin: 09/19/24 04:32 Dose: 2 mg Oxycodone/Acetaminophen (Oxycodone/Acetaminophen 5-325 Mg Tablet) 1 tab PO [id number] PRN Reason: pain Last Admin: 09/20/24 08:01 Dose: 1 tab Pantoprazole Sodium (Pantoprazole 40 Mg Tablet.Dr) 40 mg PO DAILY [facility] Stop: 09/21/25 08:59 Prochlorperazine Edisylate (Prochlorperazine Edisylate [...] <Electronically signed by MD Roshan Reynoso> 09/20/24 9594 [facility] Work Phone: [phone]) 848-756601-17-[address] [address] Hospitalist Progress Note Signed Patient: Adelina Mir MR#: [id number] : 1960 Acct:[id number] Age/Sex: 63 / F Adm Date: 5 Loc: 4 Room: [address] [place] [address] Type: ADM IN Attending Dr: Joe Garcia [...] spray 09/17/24 21:00 09/20/24 08:00 Fluticasone Propionate [place] 120 [place]/16 Gm Bottle INTRANASAL 09/17/25 20:59 1 spray BID IVY Administration Gabapentin 300 mg 09/17/24 22:00 09/20/24 08:02 Gabapentin 300 Mg Capsule PO 09/17/25 21:59 300 mg TID IVY Administration Guaifenesin 1,200 mg 09/17/24 21:00 09/20/24 08:00 Guaifenesin 600 Mg Tab.Er.12h PO 09/17/25 20:59 1,200 mg BID IVY Administration Ipratropium Misenheimer 0.5 mg 09/19/24 12:00 09/20/24 11:56 Ipratropium Misenheimer 0.5 Mg/2.5 Ml Vial.Neb INHALATION 09/19/25 11:59 [...] Documented By: Joe Garcia MD 09/20/24 12 Signed By: 09/20/24 [facility]01-17-20[place] [address] Infect. Disease Progress Note Signed Patient: Adelina Mir MR#: [id number] : 1960 Acct:[id number] Age/Sex: 63 / F Adm Date: 5 Loc: 4 Room: [address] [place] [address] Type: ADM IN Attending Dr: Joe Garcia [...] Dose: 10 mg Fluticasone Propionate (Fluticasone Propionate [place] 120 [place]/16 Gm Bottle) 1 spray INTRANASAL [facility] Stop: 09/17/25 20:59 Last Admin: 09/20/24 08:00 Dose: 1 spray Gabapentin (Gabapentin 300 Mg Capsule) 300 mg PO TID [facility] Stop: 09/17/25 21:59 Last Admin: 09/20/24 08:02 Dose: 300 mg Guaifenesin (Guaifenesin 600 Mg Tab.Er.12h) 1,200 mg PO BID [facility] Stop: 09/17/25 20:59 Last Admin: 09/20/24 08:00 Dose: 1,200 mg Ipratropium Misenheimer (Ipratropium Misenheimer 0.5 Mg/2.5 Ml Vial.Neb) 0.5 mg INHALATION QID.RESP [facility] Stop: 09/19/25 11:59 Last Admin: 09/20/24 10:23 Dose: Not Given Metoprolol Succinate (Metoprolol Succinate 50 Mg Tab.Er.24h) 50 mg PO DAILY [facility] Stop: 09/21/25 08:59 Morphine Sulfate (Morphine Sulfate 2 Mg/Ml Vial) 2 mg IV-PUSH Q4H PRN PRN Reason: Pain Scale 8 - 10 Last Admin: 09/19/24 04:32 Dose: 2 mg Oxycodone/Acetaminophen (Oxycodone/Acetaminophen 5-325 Mg Tablet) 1 tab PO [id number] PRN Reason: pain Last Admin: 09/20/24 08:01 [...] MD 09/20/24 1139 Signed By: 09/20/24 1143 [facility]25 Progress note Author Joe Garcia [facility] Date/TimeJanuary 2024 12:15pm [place] [address] Hospitalist Progress Note Signed Patient: Adelina Mir MR#: [id number] : 1960 Acct:[id number] Age/Sex: 63 / F Adm Date: 5 Loc: Room: [address] [place] [address] Type: ADM IN Attending Dr: Joe Garcia [...] spray 09/17/24 21:00 09/19/24 08:14 Fluticasone Propionate Macedon 120 Macedon/16 Gm Bottle INTRANASAL 09/17/25 20:59 1 spray [...] Lactated Ringers IV 09/17/25 15:14 75 mls/hr .[id number] IVY Administration Ipratropium Misenheimer 0.5 mg 09/19/24 12:00 Ipratropium Misenheimer 0.5 Mg/2.5 Ml Vial.Neb INHALATION 09/19/25 11:59 [...] <Electronically signed by Joe Garcia MD> 09/19/[address] [place] [address] Work Phone: 1(293) 257-890901-16-2025 Consult note Author Kush Glez [facility] Date/TimeJanuary 2024 11:50am [place] [address] Med Onc/Hem Consult Note Signed Patient: Adelina Mir MR#: [id number] : 1960 Acct:[id number] Age/Sex: 63 / F Adm Date: 5 Loc: Room: [address] [place] [address] Type: ADM IN Attending Dr: Joe Garcia [...] breast invasiveductal carcinoma grade 2, ER positive, SC positive, HER2/pat negative 1+, 1.7 cmat least [...] Lymphovascular Invasion. Breast Hormone Profile ER: Positive SC: Positive HER2/pat by immunostain: Negative (1+) CAP [...] left breast cancer that is ER positive SC positive and HER2/pat negative but nolymph nodes [...] skin sparing with immediate reconstruction with tissue director of corporate sponsorships by Dr. Bustamante. Surgical path from surgery [...] extension is present. ER positive over 90%, SC +80%, HER2 negative (1+), Ki-67 3% 07/31/24: [...] 14 point systems were reviewed andare negative. [facility] Medical History Osteopenia Encounter for screening for [...] % (Auto) N/A, Lymph % (Auto) N/A, Mcmullen % (Auto) N/A, Eos % (Auto) N/A,Baso % (Auto) N/A, Nucleat RBC Rel Count N/A, Neut # (Auto)N/A, Lymph # (Auto) N/A, Mcmullen # (Auto) N/A, Eos # (Auto) N/A, Baso # (Auto) N/A, Band Neutrophils %2, Lymphocytes % 5 L, Monocytes % 11, Metamyelocytes % 5 H, Myelocytes % 3 H, Segmented [id number] H, Nucleated RBCs/100 WBC 1 H, Reactive [...] on 01/10/2024 it reveals pT1c, pNX, ER positive,SC positive, HER2/pat negative (1+), no DCIS, tumor [...] skin sparing with immediate reconstruction with tissue director of corporate sponsorships by Dr. Bustamante. Surgical path from surgery [...] extension is present. ER positive over 90%, SC +80%, HER2 negative (1+), Ki-67 3% Treatment [...] No Indication Cycle Number Last Admin 1 3 Cycle Day Next Admin No Active Chemotherapy Documented By: Kush Glez MD 09/19/24 1132 Signed By: <Electronically signed by Kush Glez MD> 09/19/24 8198 [facility] Work Phone: 1(994) 295-751101-16-[address] [address] Hospitalist Progress Note Signed Patient: Adelina Mir MR#: [id number] : 1960 Acct:[id number] Age/Sex: 63 / F Adm Date: 5 Loc: 4P Room: 5U9405-4 Type: ADM IN Attending Dr: Joe Garcia [...] spray 09/17/24 21:00 09/19/24 08:14 Fluticasone Propionate Macedon 120 Macedon/16 Gm Bottle INTRANASAL 09/17/25 20:59 1 spray [...] Lactated Ringers IV 09/17/25 15:14 75 mls/hr .[id number] IVY Administration Ipratropium Misenheimer 0.5 mg 09/19/24 12:00 Ipratropium Misenheimer 0.5 Mg/2.5 Ml Vial.Neb INHALATION 09/19/25 11:59 [...] MD 09/19/24 12 05 Signed By: 09/19/[address] [place], [place] 4757701-16-2025 [place] [address] Med Onc/Hem Consult Note Signed Patient: Adelina Mir MR#: [id number] : 1960 Acct:[id number] Age/Sex: 63 / F Adm Date: 5 Loc: Room: [address] [place] [address] Type: ADM IN Attending Dr: Joe Garcia [...] breast invasiveductal carcinoma grade 2, ER positive, SC positive, HER2/pat negative 1+, 1.7 cmat least [...] Lymphovascular Invasion. Breast Hormone Profile ER: Positive SC: Positive HER2/pat by immunostain: Negative (1+) CAP [...] left breast cancer that is ER positive SC positive and HER2/pat negative but nolymph nodes [...] skin sparing with immediate reconstruction with tissue director of corporate sponsorships by Dr. Bustamante. Surgical path from surgery [...] extension is present. ER positive over 90%, SC +80%, HER2 negative (1+), Ki-67 3% 07/31/24: [...] 14 point systems were reviewed andare negative. [facility] Medical History Osteopenia Encounter for screening for [...] % (Auto) N/A, Lymph % (Auto) N/A, Mcmullen % (Auto) N/A, Eos % (Auto) N/A,Baso % (Auto) N/A, Nucleat RBC Rel Count N/A, Neut # (Auto)N/A, Lymph # (Auto) N/A, Mcmullen # (Auto) N/A, Eos # (Auto) N/A, Baso # (Auto) N/A, Band Neutrophils %2, Lymphocytes % 5 L, Monocytes % 11, Metamyelocytes % 5 H, Myelocytes % 3 H, Segmented [id number] H, Nucleated RBCs/100 WBC 1 H, Reactive [...] on 01/10/2024 it reveals pT1c, pNX, ER positive,SC positive, HER2/pat negative (1+), no DCIS, tumor [...] skin sparing with immediate reconstruction with tissue director of corporate sponsorships by Dr. Bustamante. Surgical path from surgery [...] extension is present. ER positive over 90%, SC +80%, HER2 negative (1+), Ki-67 3% Treatment [...] to start week one of the Taxol. Sheneeds to continue weekly CBC as outpatient. Treatment Plan Paclitaxel 80mg/m2 Weekly x 4 weeks Clinical Indication No Indication Cycle Number Last Admin 1 3 Cycle Day Next Admin No Active Chemotherapy Documented By: Kush Glez MD 09/19/24 1132 Signed By: 09/19/24 1150 [facility]01-16[facility]25 Progress note Author Roshan Reynoso [facility] Date/TimeJanuary 2024 9:31am [address] [address] Infect. Disease Progress Note Signed Patient: Adelina Mir MR#: [id number] : 1960 Acct:[id number] Age/Sex: 63 / F Adm Date: 5 Loc: 4P Room: [address] [place] [address] Type: ADM IN Attending Dr: Joe Garcia [...] Dose: 10 mg Fluticasone Propionate (Fluticasone Propionate Macedon 120 Macedon/16 Gm Bottle) 1 spray INTRANASAL BIDSCH Stop: 09/17/25 20:59 Last Admin: 09/19/24 08:14 Dose: 1 spray Gabapentin (Gabapentin 300 Mg Capsule) 300 mg PO TID IVY Stop: 09/17/25 21:59 Last Admin: 09/19/24 08:14 Dose: 300 mg Guaifenesin (Guaifenesin 600 Mg Tab.Er.12h) 1,200 mg PO BID IVY Stop: 09/17/25 20:59 Last Admin: 09/19/24 08:14 Dose: 1,200 mg Lactated Ringer's (Lactated Ringers) 1,000 mls @ 75 mls/hr IV .[id number] IVY Stop: 09/17/25 15:14 Last Admin: 09/19/24 06:56 Dose: Not Given Morphine Sulfate (Morphine Sulfate 2 Mg/Ml Vial) 2 mg IV-PUSH Q4H PRN PRN Reason: Pain Scale 8 - 10 Last Admin: 09/19/24 04:32 Dose: 2 mg Oxycodone/Acetaminophen (Oxycodone/Acetaminophen 5-325 Mg Tablet) 1 tab PO [id number] PRN Reason: pain Last Admin: 09/19/24 08:14 Dose: 1 tab Pantoprazole Sodium (Pantoprazole 40 Mg Vial) 40 mg IV-PUSH DAILY IVY Stop: 09/18/25 08:59 Last Admin: 09/19/24 08:15 [...] Roshan Reynoso MD 09/19/24 0928 Signed By: <Electronically signed by MD Roshan Reynoso> 09/19/24 0931 [facility] Work Phone: 1(603) 130-253501-16-[address] [address] Infect. Disease Progress Note Signed Patient: Adelina Mir MR#: [id number] : 1960 Acct:[id number] Age/Sex: 63 / F Adm Date: 5 Loc: 4 Room: [address] [place] [address] Type: ADM IN Attending Dr: Joe Garcia [...] Dose: 10 mg Fluticasone Propionate (Fluticasone Propionate Macedon 120 Macedon/16 Gm Bottle) 1 spray INTRANASAL BIDSCH Stop: 09/17/25 20:59 Last Admin: 09/19/24 08:14 Dose: 1 spray Gabapentin (Gabapentin 300 Mg Capsule) 300 mg PO TID IVY Stop: 09/17/25 21:59 Last Admin: 09/19/24 08:14 Dose: 300 mg Guaifenesin (Guaifenesin 600 Mg Tab.Er.12h) 1,200 mg PO BID [facility] Stop: 09/17/25 20:59 Last Admin: 09/19/24 08:14 Dose: 1,200 mg Lactated Ringer's (Lactated Ringers) 1,000 mls @ 75 mls/hr IV .[id number] [facility] Stop: 09/17/25 15:14 Last Admin: 09/19/24 06:56 Dose: Not Given Morphine Sulfate (Morphine Sulfate 2 Mg/Ml Vial) 2 mg IV-PUSH Q4H PRN PRN Reason: Pain Scale 8 - 10 Last Admin: 09/19/24 04:32 Dose: 2 mg Oxycodone/Acetaminophen (Oxycodone/Acetaminophen 5-325 Mg Tablet) 1 tab PO [id number] PRN Reason: pain Last Admin: 09/19/24 08:14 Dose: 1 tab Pantoprazole Sodium (Pantoprazole 40 Mg Vial) 40 mg IV-PUSH DAILY [facility] Stop: 09/18/25 08:59 Last Admin: 09/19/24 08:15 [...] Continue ceftriaxone Documented By: Roshan Reynoso MD 09/19/2428 Signed By: 09/19/24 0931 [facility]01-15[facility]25 History and physical note Author Joe Garcia [facility] Date/TimeJanuary 2024 1:28pm [place] [address] Hospitalist H&P Signed with Addenda Patient: Adelina Mir MR#: [id number] : 1960 Acct:[id number] Age/Sex: 63 / F Adm Date: 5 Loc: Room: [address] [place] [address] Type: ADM IN Attending Dr: Joe Garcia [...] except as mentioned elsewhere in the documentation [facility] Medical History Osteopenia Encounter for screening for [...] % (Auto) 3.2 % (.) 09/17/24 13:00 Mcmullen % (Auto) 23.5 % (.) 09/17/24 13:00 Eos % (Auto) 0.1 % (.) 09/17/24 13:00 Baso % (Auto) 0.0 % (.) 09/17/24 13:00 Nucleat RBC Rel Count 0.2 /100 WBC (0-0.5) 09/17/24 13:00 Neut # (Auto) 3.5 x10E3/uL (1.8-7.7) 09/17/24 13:00 Lymph # (Auto) 0.2 x10E3/uL (1.00-4.8) L 09/17/24 13:00 Mcmullen # (Auto) 1.1 x10E3/uL (0.0-0.8) H 09/17/24 [...] pH 5.5 (5.0-9.0) 09/17/24 13:43 Ur Specific Independence 1.015 (1.001-1.030) 09/17/24 13:43 Urine Protein 50 [...] <Electronically signed by Joe Garcia MD> 09/17/24 1655 [facility] Work Phone: 1(149) 442-318401-15-2025 Progress note Author Joe Garcia [facility] Date/TimeJanuary 2024 1:27pm [place] [address] Hospitalist Progress Note Signed Patient: Adelina Mir MR#: [id number] : 1960 Acct:[id number] Age/Sex: 63 / F Adm Date: 5 Loc: Room: [address] [place] [address] Type: ADM IN Attending Dr: Joe Garcia [...] spray 09/17/24 21:00 09/18/24 08:45 Fluticasone Propionate Macedon 120 Macedon/16 Gm Bottle INTRANASAL 09/17/25 20:59 1 spray [...] Lactated Ringers IV 09/17/25 15:14 75 mls/hr .[id number] IVY Administration Potassium Chloride 40 meq/ 520 [...] <Electronically signed by Joe Garcia MD> 09/18/24 2544 [facility] Work Phone: 1([phone] 481-442401-15-2025 [place] [address] Hospitalist H&P Signed with Addenda Patient: Adelina Mir MR#: [id number] : 1960 Acct:[id number] Age/Sex: 63 / F Adm Date: 5 Loc: Room: [address] [place] [address] Type: ADM IN Attending Dr: Joe Garcia MD Copies to: MD Michael Herrmann MD~ ADDENDUM1 Sepsis protocol followed on admission perfusion checks done on admission patient with warm extremities Capillary refills less than 3 seconds Increased urine output Vitals more stable responded to fluids Addendum Documented By: Joe Garcia MD 09/18/24 1328 Addendum Signed By: 09/18/24 1328 HPI DATE OF EXAMINATION: 09/17/24 [...] except as mentioned elsewhere in the documentation [facility] Medical History Osteopenia Encounter for screening for [...] % (Auto) 3.2 % (.) 09/17/24 13:00 Mcmullen % (Auto) 23.5 % (.) 09/17/24 13:00 Eos % (Auto) 0.1 % (.) 09/17/24 13:00 Baso % (Auto) 0.0 % (.) 09/17/24 13:00 Nucleat RBC Rel Count 0.2 /100 WBC (0-0.5) 09/17/24 13:00 Neut # (Auto) 3.5 x10E3/uL (1.8-7.7) 09/17/24 13:00 Lymph # (Auto) 0.2 x10E3/uL (1.00-4.8) L 09/17/24 13:00 Mcmullen # (Auto) 1.1 x10E3/uL (0.0-0.8) H 09/17/24 [...] pH 5.5 (5.0-9.0) 09/17/24 13:43 Ur Specific Independence 1.015 (1.001-1.030) 09/17/24 13:43 Urine Protein 50 [...] MD 09/17/24 15 16 Signed By: 09/17/[address] [place], [place] 9266201-15-2025 [place] [address] Hospitalist Progress Note Signed Patient: Adelina Mir MR#: [id number] : 1960 Acct:[id number] Age/Sex: 63 / F Adm Date: 5 Loc: 4 Room: [address] [place] [address] Type: ADM IN Attending Dr: Joe Garcia [...] spray 09/17/24 21:00 09/18/24 08:45 Fluticasone Propionate Macedon 120 Macedon/16 Gm Bottle INTRANASAL 09/17/25 20:59 1 spray [...] Lactated Ringers IV 09/17/25 15:14 75 mls/hr .[id number] IVY Administration Potassium Chloride 40 meq/ 520 [...] 09/18/24 13 23 Signed By: 09/18/24 1327 [facility]01-15-2025 Consult note Author Roshan Reynoso [facility] Date/TimeJanuary 2024 9:53am [place] [address] Infect. Disease Consult Note Signed Patient: Adelina Mir MR#: [id number] : 1960 Acct:[id number] Age/Sex: 63 / F Adm Date: 5 Loc: Room: [address] [place] [address] Type: ADM IN Attending Dr: Joe Garcia [...] negative unless noted below or in HPI [facility] Medical History Osteopenia Encounter for screening for [...] Stop: 09/17/25 21:59 Fluticasone Propionate (Fluticasone Propionate Macedon 120 Macedon/16 Gm Bottle) 1 spray INTRANASAL BIDSCH Stop: 09/17/25 20:59 Last Admin: 09/18/24 08:45 Dose: 1 spray Gabapentin (Gabapentin 300 Mg Capsule) 300 mg PO TID [facility] Stop: 09/17/25 21:59 Last Admin: 09/18/24 08:39 Dose: 300 mg Guaifenesin (Guaifenesin 600 Mg Tab.Er.12h) 1,200 mg PO BID [facility] Stop: 09/17/25 20:59 Last Admin: 09/18/24 08:39 Dose: 1,200 mg Sodium Chloride (0.9% Sodium Chloride 100 Ml) 100 mls @ 20 mls/hr IV PROTOCOL PRN PRN Reason: BLOOD TRANSFUSION Stop: 09/18/24 14:45 Lactated Ringer's (Lactated Ringers) 1,000 mls @ 75 mls/hr IV .[id number] [facility] Stop: 09/17/25 15:14 Last Admin: 09/18/24 01:07 Dose: 75 mls/hr Cefepime HCl (Maxipime) 1 gm in 50 mls @ 12.5 mls/hr IV Q12H [facility] Last Admin: 09/18/24 01:07 Dose: 12.5 mls/hr Doxycycline Hyclate (Doxy 100) 100 mg in 100 mls @ 100 mls/hr IV Q12H [facility] Last Admin: 09/18/24 08:45 Dose: 100 mls/hr Potassium Chloride 40 meq/ (Sodium Chloride) 520 mls @ 130 mls/hr IV ONCE ONE Stop: 09/18/24 13:59 Morphine Sulfate (Morphine Sulfate 2 Mg/Ml Vial) 2 mg IV-PUSH Q4H PRN PRN Reason: Pain Scale 8 - 10 Last Admin: 09/18/24 08:39 Dose: 2 mg Oxycodone/Acetaminophen (Oxycodone/Acetaminophen 5-325 Mg Tablet) 1 tab PO [id number] PRN Reason: pain Pantoprazole Sodium (Pantoprazole 40 [...] 100 ml @ 100 mls/hr IV Q12H [facility] Rx#:[id number] Oral 600 / 600 Output: Urine Amount (Catheter) 350 / 350 Purwick 350 / 350 Other: Total Intake (Blood Product) Cumulative Amt Leukocyte Reduced Rbc Unit 0 325 [id number] Leukocyte Reduced Rbc Unit 325 [id number] # Voids 1 # Unmeasured Voids 2 [...] Cloudy A Urine pH 5.5 Ur Specific Independence 1.015 Urine Protein 50 H Urine Glucose [...] signed by MD Roshan Reynoso> 09/18/24 0953 [facility] Work Phone: 1(262) 263-296701-15-2025 [place] [address] Infect. Disease Consult Note Signed Patient: Adelina Mir MR#: [id number] : 1960 Acct:[id number] Age/Sex: 63 / F Adm Date: 5 Loc: Room: [address] [place] [address] Type: ADM IN Attending Dr: Joe Garcia [...] negative unless noted below or in HPI [facility] Medical History Osteopenia Encounter for screening for [...] Stop: 09/17/25 21:59 Fluticasone Propionate (Fluticasone Propionate Macedon 120 Macedon/16 Gm Bottle) 1 spray INTRANASAL BIDSCH Stop: 09/17/25 20:59 Last Admin: 09/18/24 08:45 Dose: 1 spray Gabapentin (Gabapentin 300 Mg Capsule) 300 mg PO TID IVY Stop: 09/17/25 21:59 Last Admin: 09/18/24 08:39 Dose: 300 mg Guaifenesin (Guaifenesin 600 Mg Tab.Er.12h) 1,200 mg PO BID IVY Stop: 09/17/25 20:59 Last Admin: 09/18/24 08:39 Dose: 1,200 mg Sodium Chloride (0.9% Sodium Chloride 100 Ml) 100 mls @ 20 mls/hr IV PROTOCOL PRN PRN Reason: BLOOD TRANSFUSION Stop: 09/18/24 14:45 Lactated Ringer's (Lactated Ringers) 1,000 mls @ 75 mls/hr IV .[id number] [facility] Stop: 09/17/25 15:14 Last Admin: 09/18/24 01:07 Dose: 75 mls/hr Cefepime HCl (Maxipime) 1 gm in 50 mls @ 12.5 mls/hr IV Q12H [facility] Last Admin: 09/18/24 01:07 Dose: 12.5 mls/hr Doxycycline Hyclate (Doxy 100) 100 mg in 100 mls @ 100 mls/hr IV Q12H [facility] Last Admin: 09/18/24 08:45 Dose: 100 mls/hr Potassium Chloride 40 meq/ (Sodium Chloride) 520 mls @ 130 mls/hr IV ONCE ONE Stop: 09/18/24 13:59 Morphine Sulfate (Morphine Sulfate 2 Mg/Ml Vial) 2 mg IV-PUSH Q4H PRN PRN Reason: Pain Scale 8 - 10 Last Admin: 09/18/24 08:39 Dose: 2 mg Oxycodone/Acetaminophen (Oxycodone/Acetaminophen 5-325 Mg Tablet) 1 tab PO [id number] PRN Reason: pain Pantoprazole Sodium (Pantoprazole 40 Mg Vial) 40 mg IV-PUSH DAILY [facility] Stop: 09/18/25 08:59 Last Admin: 09/18/24 08:39 [...] 100 ml @ 100 mls/hr IV Q12H IVY Rx#:[id number] Oral 600 / 600 Output: Urine Amount (Catheter) 350 / 350 Purwick 350 / 350 Other: Total Intake (Blood Product) Cumulative Amt Leukocyte Reduced Rbc Unit 0 325 [id number] Leukocyte Reduced Rbc Unit 325 [id number] # Voids 1 # Unmeasured Voids 2 [...] Cloudy A Urine pH 5.5 Ur Specific Independence 1.015 Urine Protein 50 H Urine Glucose [...] MD 09/18/24 0943 Signed By: 09/18/24 0953 [facility]01-14-2025 [place] [address] Hospitalist H&P Signed Patient: Adelina Mir MR#: [id number] : 1960 Acct:[id number] Age/Sex: 63 / F Adm Date: 5 Loc: Room: [address] [place] [address] Type: ADM IN Attending Dr: Joe Garcia [...] except as mentioned elsewhere in the documentation [facility] Medical History Osteopenia Encounter for screening for [...] % (Auto) 3.2 % (.) 09/17/24 13:00 Mcmullen % (Auto) 23.5 % (.) 09/17/24 13:00 Eos % (Auto) 0.1 % (.) 09/17/24 13:00 Baso % (Auto) 0.0 % (.) 09/17/24 13:00 Nucleat RBC Rel Count 0.2 /100 WBC (0-0.5) 09/17/24 13:00 Neut # (Auto) 3.5 x10E3/uL (1.8-7.7) 09/17/24 13:00 Lymph # (Auto) 0.2 x10E3/uL (1.00-4.8) L 09/17/24 13:00 Mcmullen # (Auto) 1.1 x10E3/uL (0.0-0.8) H 09/17/24 [...] pH 5.5 (5.0-9.0) 09/17/24 13:43 Ur Specific [place] 1.015 (1.001-1.030) 09/17/24 13:43 Urine Protein 50 [...] MD 09/17/24 15 16 Signed By: 09/17/[address] [place], [place] 3090701-14-2025 Radiology Diagnostic study note [facility] Main [place] [address] [place] [address] CT Scan Report Signed Patient: Adelina Mir MR#: [id number] : 1960 Acct:[id number] Age/Sex: 63 / F ADM Date: 5 Loc: ER Room: Type: [facility] ER Attending Dr: Copies to: Mode [...] RESOLUTION. Impression dictated by: Jayden Cabral Jr., D.OLucila09/17/2024 2:31 PM Dictation Location: [place] [address] Transcribed By: [facility] 09/17/24 1431 Dictated By: Jayden Cabral Jr, DO 09/17/24 1427 Signed By: 09/17/24 1431 [facility]01-14-2025 Evaluation note* Diagnosis Onset Date Resolution Status Admit Date Breast cancer, left acuteJanuary 2024 11:17amOsteopeniainactiveJanuary 2024 11:17am Breast cancer, leftacuteJanuary 2024 2:47pmAcute anemiainactiveSepuary 2024 2:47pmBacteremia due to Streptococcus pneumoniaeinactiveSepuary 2024 2:47pmImmunosuppressed due to chemotherapyinactiveJanuary 2024 2:47pm OsteopeniainactiveJanuary 2024 2:47pmPancytopeniainactiveJanuary 2024 2:47pmPneumoniainactiveJanuary 2024 2:47pmUTI (urinary tract infection)inactiveSeptember 17, 2024 2:47pmBreast cancer, leftacuteJanuary 2024 2:48pmOsteopeniainactiveJanuary 2024 [...] leftacute December 11, 2024 10:36amOsteopeniainactiveApril 2024 10:36am [facility] Work Phone: 1(101) 157-102701-14-2025 Progress [facility]Un[facility] [place] [address] Cancer Center Note Signed Patient: Adelina Mir MR#: [id number] : 1960 Acct:[id number] Age/Sex: 63 / F Type: REG AMB Date of Service: 09/17/24 Copies to: Michael Holley MD~ Assessment & Plan A/P (1) Breast cancer, left: (2) Osteopenia: Plan Based on the biopsy done on 01/10/2024 it reveals pT1c, pNX, ER positive, SC positive, HER2/pat negative (1+), no DCIS, tumor [...] skin sparing with immediate reconstruction with tissue director of corporate sponsorships by Dr. Bustamante. Surgical path from surgery [...] extension is present. ER positive over 90%, SC +80%, HER2 negative (1+), Ki-67 3% Treatment [...] invasive ductal carcinoma grade 2, ER positive, SC positive, HER2/pat negative 1+, 1.7 cm at [...] Lymphovascular Invasion. Breast Hormone Profile ER: Positive SC: Positive HER2/pat by immunostain: Negative (1+) CAP [...] left breast cancer that is ER positive SC positive and HER2/pat negative but nolymph nodes [...] skin sparing with immediate reconstruction with tissue director of corporate sponsorships by Dr. Bustamante. Surgical path from surgery [...] extension is present. ER positive over 90%, SC +80%, HER2 negative (1+), Ki-67 3% 07/31/24: [...] came up to as high as 95%. SHI Ellison Demboskenotified of low BP and SpO2. [facility] Medical History Medical History (Updated 09/05/24 @ [...] APRN DD/ 1126 Signed By: 09/17/24 1231 [facility]01-02-2025 [place] [address] Palliative Medicine Encounter Patient: Adelina Mir MR#: [id number] : 1960 Acct:[id number] Age/Sex: 63 / F Copies to: SOLA [...] tablet tabs Is patient having pain?: Yes [facility] Medical History (Updated 09/05/24 @ 11:08 by [...] Substance Abuse Comment: cassie marijuana - 06/03/2024 [place] Symptom Assessment Scale Pain: left leg pain, [...] recorder, note dictated by Elda Hurtado APRN, ANIMAL CONTROL SUPERVISOR-C Dictated By: Elda Hurtado APRN DD/ 1046 Signed By: 09/06/24 1840 [facility]12-31-2024 Evaluation note* Diagnosis Onset Date Resolution Status [...] 2:47pmPancytopeniainactiveJanuary 2024 2:47pmPneumoniainactiveJanuary 2024 2:47pmUTI (urinary tract infection)inactiveJanuary 2024 2:47pmBreast cancer, leftacuteJanuary 2024 2:48pmOsteopeniainactiveJanuary 2024 [...] painacuteMarch 2024 7:52amConstipationacuteMarch 2024 7:52amNeuropathyacuteMarch 2024 7:52am [facility] Work Phone: 1(755) 557-971012-18-2024 Evaluation note* Diagnosis Onset Date Resolution Status Admit Date Breast cancer, left acuteDecember 2023 3:02pmOsteopeniainactiveDecember 2023 3:02pm Breast cancer, leftacuteDecember 2023 2:54pmCancer associated painacute August 22, 2024 2:54pmEncounter for palliative careacutecember 2023 2:54pmBreast cancer, leftacuteDecember 2023 1:28pmOsteopeniainactive September 03, [...] 7:45amNeuropathyacuteFebruary 2024 7:45amBreast cancer, leftacuteFebruary 2024 9:58amOsteopenia inactiveFeuary 2024 9:58am [facility] Work Phone: 1(166) 339-633312-03-2024 NotePatient Education Cardiovascular Hypertension, Adult High blood [...] one 12 oz bottle (more content not included)...[facility]11-27-2024 Evaluation note* Diagnosis Onset Date Resolution Status Admit Date Breast cancer, left acuteNovember 2023 2:07pmEncounter for screening for osteoporosisacute July 31, 2024 2:07pmBreast cancer, leftacuteDecember 2023 3:02pm OsteopeniaacuteDecember 2023 3:02pmBreast cancer, leftacuteDecember 2023 2:54pmCancer associated painacuteDecember 2023 2:54pmEncounter for palliative careacutece2023 2:54pmBreast cancer, leftacuteJanuary 2024 8:46amCancer associated painacuteJanuary 2024 8:46amNauseaacute September 05, 2024 8:46am [facility] Work Phone: 1(209) 679-206811-27-2024 Evaluation note* Diagnosis Onset Date Resolution Status [...] 8:46amBreast cancer, leftacuteJanuary 2024 11:17amOsteopeniaacuteJanuary 2024 11:17am [facility] Work Phone: 1(662) 493-424811-27-2024 Evaluation note* Diagnosis Onset Date Resolution Status [...] 2024 2:47pmUTI (urinary tract infection)acuteJanuary 2024 2:47pm [facility] Work Phone: 1(633) 951-612111-27-2024 Evaluation note* Diagnosis Onset Date Resolution Status [...] 2:47pmBreast cancer, leftacuteJanuary 2024 2:47pmImmunosuppressed due to chemotherapyacuteSepuary 2024 2:47pmOsteopeniaacuteJanuary 2024 2:47pmPancytopeniaacuteJanuary 2024 2:47pmPneumoniaacuteJanuary 2024 2:47pmUTI (urinary tract infection)acuteJanuary 2024 2:47pm [facility] Work Phone: 1([phone]) 670-219911-27-2024 Evaluation note* Diagnosis Onset Date Resolution Status [...] leftinactiveJanuary 2024 2:48pmOsteopeniainactive October 03, 2024 2:48pm [facility] [place] Work Phone: 1(315) [phone] Evaluation note* Diagnosis Onset Date Resolution Status [...] cancer, leftinactiveFebruary 2024 9:46am OsteopeniainactiveFebruary 2024 9:46am [facility] [place] Work Phone: [phone]) [phone] Evaluation note* Diagnosis Onset Date Resolution Status [...] to Streptococcus pneumoniaeinactiveFebruary 2024 1:34pmPneumoniainactiveFebruary 2024 1:34pm [facility] [place] Work Phone: 1(740) 539-837311-27-2024 Evaluation note* Diagnosis Onset Date Resolution Status [...] 2:04pmCancer associated painacuteFebruary 2024 2:04pmNeuropathyacuteFebruary 2024 2:04pm [facility] Work Phone: 1(633) 550-460711-18-2024 Evaluation + Plan noteExtracted from:Title: ANES Post-operative Note---GeneralAuthor:Billy Echols MDDate:07/22/24 Plan Transfer/Discharge: Transfer/Discharge Discharge when meets criteria ( To home ). Extracted from:Title:ANES Pre-operative Note uthor:Billy Echols MDDate: 07/22/24 Plan [place] [employer] (ASA) physical status classification: Class III. Anesthetic Preoperative Plan: Anesthesia General. Future Appointments Appointment Date:08/06/2024 01:15:00 PM Scheduled Provider:Michael Holley MD Location:[facility] Appointment Type: Open Appointment Date:06/16/2025 01:00:00 PM Scheduled Provider: Location:[facility] Appointment Type:FM Medicare Wellness Subsequent Future Scheduled Tests Laboratory* Lipid Panel 09/07/23 Radiology* MA Mamm Diag w/CAD if perf and 3D Manny 09/20/[address] [facility] 11-18-2024 Hospital Discharge instructions Patient Education [...] port is placed, you will get a garnett room worker's information card. The card has informationabout your [...] and water are not available, use hand bridge leverman. ?Change your dressing as told by your [...] you can safely lift. General instructions Take zsip-cgt-ovollty and prescription medicines only as told by [...] by your health care provider. Keep the garnett room worker's information card with you at all times. [...] provider. Document Revised: 02/22/2022 Document Reviewed: 02/22/2022 Fullbridge Patient Education 2023 [email or web address] 07/22/2024 09:35:24 Post Op Patient Instructions - FT (Custom) (CUSTOM) Follow Up Care 06/18/2024 09:17:26 With:Roshan BRAUN Address: [address] [place] [address] Business (1) When:7 to [address] [facility] 11-18-2024 NoteProgress Note-Physician Patient: ADELINA MIR Age: 63 years Sex: Female : 1960 Associated Diagnoses: None Author: Onesimo PRATT, Billy Locke Postoperative Information Postoperative disposition: Postoperative disposition: To PACU. Optimetrix number: Optimetrix number [id number]. Anesthetic utilized: General. Health Status Allergies: Allergic [...] Discharge when meets criteria ( To home ).[facility] Center[facility] on above:Result Comment: Electronically Signed By: Onesimo PRATT, Billy Mckenzie.br\Date and Time Signed: 07/22/24 10:00 JEAN PAUL 07-22-2024 NotePatient Education - Text Infectious Disease [...] port is placed, you will get a garnett room worker's information card. The card has information about [...] and water are not available, use hand bridge leverman. ? Change your dressing as told by [...] can safely lift. General instructions ??? Take vnob-lau-eexazjr and prescription medicines only as told by [...] by your health care provider. Keep the garnett room worker's informationcard with you at all times. ??? [...] provider. Document Revised: 02/22/2022 Document Reviewed: 02/22/2022 Elsevier Patient Education ? 2023 [email or web address] Regional Medical Center 07-22-2024 NoteHistory and Physical Patient: ADELINA MIR Age: 63 years Sex: Female : 1960 Associated Diagnoses: None Author: Roshan BRAUN MD Subjective no changes to H & PFAshtabula General HospitalComment on above:Result Comment: Electronically Signed By: Roshan BRAUN MD\.br\Date and Time Signed: 07/22/24 07:30 [id number] NoteProgress Note-Physician Patient: ADELINA MIR Age: 63 years Sex: Female : 1960 Associated Diagnoses: None Author: Billy Echols MD. Preoperative Information Anesthesia Preop Info: Time patient [...] # 90 tab(s), Refills(s) 0, Pharmacy: [facility], 170, cm, 06/11/24 14:49:00 EDT, Height/Length [...] # 30 cap(s), Refills(s) 0, Pharmacy: [facility], 170, cm, 05/16/24 8:11:00 [...] All Problems Abnormal EKG / SNOMED CT 8770621772 / Confirmed ADHD / SNOMED CT 7110408900 / Confirmed Anxiety / SNOMED CT 82667723 / Confirmed Breast cancer of lower-inner quadrant of left female breast / SNOMED CT 797461881 / Confirmed Complex regional pain syndrome of lower limb / SNOMED CT 9520228647 / Confirmed Dysuria / SNOMED CT 77933085 / Confirmed Essential tremor / SNOMED CT 0020649314 / Confirmed Generalized anxiety disorder / SNOMED CT 28424806 / Confirmed HTN (hypertension) / SNOMED CT 2712604676 / Confirmed Hx of osteoarthritis / SNOMED CT 129709272 / Confirmed Idiopathic polyneuropathy / SNOMED CT 35259670 / Confirmed Infected breast tissue director of corporate sponsorships / SNOMED CT 127604471 / Confirmed Intradermal melanocytic nevus / SNOMED CT 383728064 / Confirmed Mass of left breast / SNOMED CT 4252950433 / Confirmed Neoplasm of uncertain behavior of skin of back / SNOMED CT 134598753 / Confirmed (more content not included)...[facility] CenterComment on above:Result Comment: Electronically Signed By: Onesimo PRATT, Billy Locke\.br\Date and Time Signed: 07/22/24 07:14 [id number] NoteGeneral Surgery Office/Clinic Note Chief Complaint consultation for port placement HPI Staff 63 year old female presents on consultation from oncology to discuss port placement. History of Present Illness almost 7 weeks s/p left skin sparing mastectomy with sentinel lymph node biopsy, with immediate tissue director of corporate sponsorships reconstruction, for T1cN1a invasive ductal carcinoma of left breast; complicated by postoperative wound infection, requiring removal of tissue director of corporate sponsorships 27 days ago; patient requires port for [...] lower-inner quadrant of left female breast) right ttyfnj-x-whbs insertion under anesthesia, informed consent obtained. 2. Poor venous access (I87.8: Other specified disorders of veins) see # 1 3. Infected breast tissue director of corporate sponsorships (T85.79XA: Infection and inflammatory reaction due to [...] of osteoarthritis Idiopathic polyneuropathy Infected breast tissue director of corporate sponsorships Intradermal melanocytic nevus Mass of left breast Neoplasm of uncertain behavior of skin of back Neoplasm of uncertain behavior of skin of face Poor venous access Postoperative pain Pre-op exam Scoliosis Historical BMI 23.0-23.9, adult Polyneuropathy RSD lower limb Procedure/Surgical History Mastectomy (05/16/2024), Excision of intradermal nevus (02/20/2024), Excision of breast mass (01/10/2024), Biopsy of breast (06/27/2023), Arthroscopy of kn (more content not included)...[facility] CenterComment on above:Result Comment: Electronically Signed By: APARNA PRATT, Roshan Hargrove\Date and Time Signed: 07/02/24 20:01 [id number] NoteNurse Consultation Note Reason for Visit Pt [...] - Not Given Patient Refuses SARS-CoV-2 mRNA (aidenn 5y-11y) vac - Not Given Postpone due to refusal [facility]10-08-2024 NotePatient Education Emergency Medicine Heart Attack A heart attack occurs when blood and oxygen supply to the heart is cut off. A heart attack can cause damage to the heart that cannot be fixed. A heart attack is also called a myocardial infarction, or CO. If you think you are having a [...] these instructions at home: Medicines ? Take dkuu-cmt-kfhlikm and prescription medicines only as told by [...] skipping beats. ? You (more content not included)...[facility]10-08-2024 Note Patient Education Cardiovascular Hypertension, Adult High [...] of wine (148 mL), (more content not included)...[facility]09-13-2024 NoteProgress Note-Physician Patient: ADELINA MIR Age: 63 years Sex: Female : 1960 Associated Diagnoses: None Author: Onesimo PRATT, Billy Locke Preoperative Information Anesthesia Preop Info: Time patient [...] BID, # 180 cap(s), Refills(s) 3, [facility], 170, cm, 05/14/24 14:25:00 EDT, Height/Length Dosing, 67.9, kg, 05/14/24 14:25:00 EDT,Weight Dosing gabapentin 300 mg Cap: 300 mg = 1 cap(s), Oral, TID, # 30 cap(s), Refills(s) 0, Pharmacy: [facility], 170, cm, 05/16/24 8:11:00 [...] All Problems Abnormal EKG / SNOMED CT 7901114991 / Confirmed ADHD / SNOMED CT 5208482246 / Confirmed Anxiety / SNOMED CT 67557572 / Confirmed Breast cancer of lower-inner quadrant of left female breast / SNOMED CT 144322362 / Confirmed Complex regional pain syndrome of lower limb / SNOMED CT 7063194535 / Confirmed Dysuria / SNOMED CT 59267691 / Confirmed Essential tremor / SNOMED CT 7048687701 / Confirmed Generalized anxiety disorder / SNOMED CT 54322866 / Confirmed HTN (hypertension) / SNOMED CT 4088674044 / Confirmed Hx of osteoarthritis / SNOMED CT 828886034 / Confirmed Idiopathic polyneuropathy / SNOMED CT 06197171 / Confirmed Intradermal melanocytic nevus / SNOMED CT 742026258 / Confirmed Mass of left breast / SNOMED CT 3168056641 / Confirmed Neoplasm of uncertain behavior of skin of back / SNOMED CT 452030202 / Confirmed Neoplasm of uncertain behavior of skin of face / SNOMED CT 705144090 / Confirmed Pre-op exam / SNOMED CT 966806430 / Confirmed Scoliosis / SNOMED CT 299250998 / Confirmed Resolved: Polyneuropathy / SNOMED CT 32347269 Resolved: RSD lower limb / SNOMED CT 6972653241 Canceled: Acute COVID-19 / IMO 6319922251 Canceled: Blood pressure elevated without history of HTN / SNOMED CT 1835430176 Canceled: BMI 25.0-25.9,adult / SNOMED CT 3464946873 Canceled: longterm current use of opiate analgesic / SNOMED CT 1319780252 Canceled: Nipple discharge / SNOMED CT 564815083, Active Problems (17) Abnormal EKG ADHD Anxiety [...] Past Medical History: Resolved RSD lower limb (0840537061): (more content not included)...[facility] CenterComment on above:Result Comment: Electronically Signed By: Onesimo PRATT, Billy Locke\.br\Date and Time Signed: 05/17/24 12:49 [id number] NoteProgress Note-Physician Patient: ADELINA MIR Age: 63 years Sex: Female : 1960 Associated Diagnoses: None Author: Billy Jara Jr, DO Postoperative Information Postoperative disposition: Postoperative disposition: To PACU. Optimetrix number: Optimetrix number [id number]. Anesthetic utilized: General. Health Status Allergies: Allergic [...] Discharge when meets criteria ( To home ).[facility] CenterComment on above:Result Comment: Electronically Signed By: Billy Jara Jr, DO\Date and Time Signed: 05/16/24 16:02 EDT 05-16-2024 Hospital Discharge instructions Patient Education 05/16/2024 13:56:13 [facility](C[facility]OM) [place], [place] DISCHARGE INSTRUCTIONS CARING FOR YOUR CHINTAN-BIRD [...] and water are not available, use hand bridge leverman. ?Change your dressing as told by your [...] family to help with chores, including child nutrition manager, meal preparation, laundry, and shopping. Be careful [...] are safe for you. General instructions Take ebbr-rlx-qyuxjks and prescription medicines only as told by [...] by your health care provider. Medicines Take oyvo-jhw-dfczsnn and prescription medicines as told by your [...] to keep your urine pale yellow. ?Take pvti-qet-jglexqh or prescription medicines. ?Eat foods that are [...] provider. Document Revised: 05/22/2022 Document Reviewed: 05/22/2022 Fullbridge Patient Education 2023 [email or web address]. 05/16/2024 13:44:26 Post Op Patient Instructions - FT (Custom) (CUSTOM) Follow Up Care 04/12/2024 09:08:53 With:Miquel Bustamante Address: [address] [place] [address]- Business (1) When: Unknown Comments:Keep scheduled appointment With:Roshan BRAUN Address: [address], [address] [address]- Business (1) When:5 to 7 days Comments:Call for any problems. [facility] 09-12-2024 Evaluation + Plan noteExtracted from:Title: ANES Post-operative Note---GeneralAuthor:Billy Jara Jr, DO ADate:05/16/24 Plan Transfer/Discharge: Transfer/Discharge Discharge when meets criteria ( To home ). Future Appointments Appointment Date:06/11/2024 02:30:00 PM Scheduled Provider: Location:[facility] Appointment Type: Medicare Wellness Initial Appointment Date:06/11/2024 03:30:00 PM Scheduled Provider:Michael Holley MD Location:[facility] Appointment Type: Open Future Scheduled Tests Laboratory* Lipid Panel 09/07/23 Radiology* MA Mamm Diag w/CAD if perf and 3D Manny 09/20/[address] [facility] 09-12-2024 NotePatient Education - Text [place] Emanuel Argueta MD, FACS DISCHARGE INSTRUCTIONS [...] and water are not available, use hand bridge leverman. ? Change your dressing as told by [...] your incision area ev (more content not included)...[facility]09-10-2024 NotePatient Education Cardiovascular Hypertension, Adult High blood [...] of wine (148 mL), (more content not included)...[facility]06-06-2024 Hospital Discharge instructionsAmbulatory Orders* Referral to Genetics Time Frame: 02/08/24, Location: None [facility] Work Phone: 1(786) 691-858003-21-2024 Note [id number] Regional Medical Center 10-30-2023 NoteEchocardiology Procedure Exam Date/Time Accession # Ordering Echo Transthoracic 10/24/2023 11:57 EST [id number] Osmin PAUL MD Complete CPT code [id number] Reason for Exam (Echo Transthoracic Complete) I10;Hypertension Report [facility] [address] [place] [address] Adult Echocardiogram Report Name: ADELINA MIR Study Date: 10/24/2023 11:11 AM BP: 118/88 mmHg Patient Location: [facility] HR: 47 : 1960 Gender: Female Height: 67 in Age: 63 yrs Ethnicity: [facility] Weight: 153 lb Reason For Study: Hypertension BSA: 1.8 m2 History: HTN,breast cancer Ordering Physician: BEVERLY^Osmin^Yrn Referring Physician: Osmin PAUL Performed By: Rox Brenner, ARIELLE, RVT Interpretation Summary Normal LV and RV. [...] Signed by: Roberto Sosa MD Transcribed by: [facility] Technologist: [facility]10-19-2023 Note Chief Complaint consultation for nipple discharge [...] anxiety disorder Hx of osteoarthritis Idiopathic polyneuropathy longterm current use of opiate analgesic Mass of left breast Nipple discharge Scoliosis Historical Polyneuropathy RSD lower limb Procedure/Surgical History Arthroscopy of knee (06/04/1995), Appendectomy, Cholecystectomy, Extraction of wisdom tooth, Foot, Simple dental extraction, DEAN BSO - Total abdominal hysterectomy and bilateral salpingo-oophorectomy, [place] (more content not included)...[facility] CenterComment on above:Result Comment: Electronically Signed By: APARNA PRATT, Roshan Hargrove\Date and Time Signed: 06/22/23 09:47 [id number] Progress note Author Kush Newton White HospitalNote Date/TimeFebruary 2024 10:18am [facility] [place] [address] Cancer Center Note Signed Patient: Adelina Mir MR#: [id number] : 1960 Acct:[id number] Age/Sex: 64 / F Type: REG AMB Date of Service: 10/16/24 Copies to: Michael Holley MD~ Assessment & Plan A/P (1) Breast cancer, left: (2) Osteopenia: Plan Based on the biopsy done on 01/10/2024 it reveals pT1c, pNX, ER positive, SC positive, HER2/pat negative (1+), no DCIS, tumor [...] skin sparing with immediate reconstruction with tissue director of corporate sponsorships by Dr. Bustamante. Surgical path from surgery [...] extension is present. ER positive over 90%, SC +80%, HER2 negative (1+), Ki-67 3% Treatment [...] of 3 Cycle Day Next Admin 28 No Active Chemotherapy History of Present [...] invasive ductal carcinoma grade 2, ER positive, SC positive, HER2/pat negative 1+, 1.7 cm at [...] Lymphovascular Invasion. Breast Hormone Profile ER: Positive SC: Positive HER2/pat by immunostain: Negative (1+) CAP [...] left breast cancer that is ER positive SC positive and HER2/pat negative but nolymph nodes [...] skin sparing with immediate reconstruction with tissue director of corporate sponsorships by Dr. Bustamante. Surgical path from surgery [...] extension is present. ER positive over 90%, SC +80%, HER2 negative (1+), Ki-67 3% 07/31/24: She is here for 1 week toxicity check [facility]. She tolerated C1 without [...] labs for review. Scheduled for treatment today. [facility] Medical History Medical History Osteopenia Encounter for [...] 10/15/24 09: Hgb 8.1 g/dL (11.8-15.4) L 10/15/24:10/15/24 Hct 23.9 % (34.0-46.4) L 10/15/24 09:10/15/24 MCV 98.0 fl (80-100) 10/15/24:10/15/24 RDW 18.9 % (11.9-15.3) H 10/15/24:10/15/24 Plt Count 254 x10E3/uL (150-450) 10/15/24 09:59 10/15/24 Sodium 138 mmol/L (136-145) 10/15/24:10/15/24 Potassium 4.2 mmol/L (3.5-5.1) 10/15/24 09:59 10/15/24 BUN 14 mg/dL (7-25) 10/15/24 09:59 10/15/24 Creatinine 0.75 mg/dL (0.60-1.20) 10/15/24 09:59 10/15/24 Glucose 100 mg/dL (70-100) 10/15/24 09:59 10/15/24 Est GFR (CKD-EPI) > 60.0 mL/Min 10/15/24 09:59 10/15/24 Calcium 9.3 mg/dL (8.6-10.3) 10/15/24 09:59 10/15/24 Total Bilirubin 0.3 mg/dl (0.3-1.0) 10/15/24 09:59 10/15/24 AST 18 U/L (13-39) 10/15/24 09:59 10/15/24 ALT 12 U/L (7-52) 10/15/24 09:59 10/15/24 Alkaline Phosphatase 93 U/L (34-104) 10/15/24 09:59 [...] signed by Kush Glez MD> 10/16/24 1018 [facility] Work Phone: 1(507) 222-583901-22-2019 Progress note Author Kush Glez White HospitalNote Date/TimeFebruary 2024 10:29am [facility] [place] [address] Cancer Center Note Signed Patient: Adelina Mir MR#: [id number] : 1960 Acct:[id number] Age/Sex: 64 / F Type: REG AMB Date of Service: 10/30/24 Copies to: Michael Holley MD~ Assessment & Plan A/P (1) Breast cancer, left: (2) Osteopenia: Plan Based on the biopsy done on 01/10/2024 it reveals pT1c, pNX, ER positive, SC positive, HER2/pat negative (1+), no DCIS, tumor [...] skin sparing with immediate reconstruction with tissue director of corporate sponsorships by Dr. Bustamante. Surgical path from surgery [...] extension is present. ER positive over 90%, SC +80%, HER2 negative (1+), Ki-67 3% Treatment [...] cycle 1 of dose dense AC [facility] 07[facility]. She tolerated C1 without any [...] 2 of 3 Cycle Day Next Admin No [...] invasive ductal carcinoma grade 2, ER positive, SC positive, HER2/pat negative 1+, 1.7 cm at [...] Lymphovascular Invasion. Breast Hormone Profile ER: Positive SC: Positive HER2/pat by immunostain: Negative (1+) CAP [...] left breast cancer that is ER positive SC positive and HER2/pat negative but nolymph nodes [...] skin sparing with immediate reconstruction with tissue director of corporate sponsorships by Dr. Bustamante. Surgical path from surgery [...] extension is present. ER positive over 90%, SC +80%, HER2 negative (1+), Ki-67 3% 07/31/24: [...] No concerns voiced at time of intake. [facility] Medical History Medical History (Updated 10/20/24 @ 14:33 by Elda Hurtado, HYDRAULIC BILLET MAKER) Breast cancer, left Immunosuppressed due to chemotherapy [...] signed by Kush Glez MD> 10/30/24 1029 [facility] Work Phone: Evaluation + Plan note Future Appointments Appointment Date:04/20/2023 03:20:00 PM Scheduled Provider:Michael Holley MD Location:[facility] Appointment Type: Open Future Scheduled Tests Radiology* US Breast Unilateral Lt Complete 03/27/23 * US Breast Unilateral Rt Complete 03/27/[address] [facility] Future Appointments Appointment Date:07/24/2023 01:40:00 PM Scheduled Provider:Michael Holley MD Location:[facility] Appointment Type: Open Appointment Date:08/09/2023 01:00:00 PM Scheduled Provider:Roshan BRAUN MD Location:[facility] Appointment Type:[place] [address] Future Scheduled Tests Radiology* US Breast Unilateral Lt Complete 03/27/23 * US Breast Unilateral Rt Complete 03/27/23 * MA Mamm Diag w/CAD if perf and 3D Manny 09/20/23 General Surgery [place] Logentriesaluation + Plan note Future Appointments Appointment Date:10/02/2023 01:00:00 PM Scheduled Provider:Michael Holley MD Location:[facility] Appointment Type: Open Future Scheduled Tests Radiology* US Breast Unilateral Lt Complete 03/27/23 * US Breast Unilateral Rt Complete 03/27/23 * MA Mamm Diag w/CAD if perf and 3D Manny 09/20/23 General [facility] Logentriesaluation + Plan note Future Appointments Appointment Date:10/31/2023 02:30:00 PM Scheduled Provider:Osmin PAUL MD [facility] Type:Cardiology Follow Up (FT) Appointment Date:11/27/2023 02:15:00 PM Scheduled Provider:Michael Holley MD Location:[facility] Appointment Type: Open Future Scheduled Tests Laboratory* Lipid Panel 09/07/23 Radiology* US Breast Unilateral Lt Complete 03/27/23 * US Breast Unilateral Rt Complete 03/27/23 * MA Mamm Diag w/CAD if perf and 3D Manny 09/20/[address] Future Appointments Appointment Date:11/27/2023 02:15:00 PM Scheduled Provider:Michael Holley MD Location:[facility] Appointment Type: Open Future Scheduled Tests Laboratory* Lipid Panel 09/07/23 Radiology* US Breast Unilateral Lt Complete 03/27/23 * US Breast Unilateral Rt Complete 03/27/23 * MA Mamm Diag w/CAD if perf and 3D Manny 09/20/[address] [facility] note Future Appointments Appointment Date:02/27/2024 01:00:00 PM Scheduled Provider:Michael Holley MD Location:[facility] Appointment Type: Open Future Scheduled Tests Laboratory* Lipid Panel 09/07/23 Radiology* US Breast Unilateral Lt Complete 03/27/23 * US Breast Unilateral Rt Complete 03/27/23 * MA Mamm Diag w/CAD if perf and 3D Manny 09/20/23 [facility] evaluation + Plan note Future Appointments Appointment Date:01/31/2024 04:00:00 PM Scheduled Provider:Roshan BRAUN MD Location:[facility] Appointment Type: Post Op 15 Appointment Date:02/27/2024 01:00:00 PM Scheduled Provider:Michael Holley MD Location:[facility] Appointment Type: Open Future Scheduled Tests Laboratory* Lipid Panel 09/07/23 Radiology* US Breast Unilateral Lt Complete 03/27/23 * US Breast Unilateral Rt Complete 03/27/23 * MA Mamm Diag w/CAD if perf and 3D Manny 09/20/23 [facility] evaluation + Plan note Future Appointments Appointment Date:02/27/2024 01:00:00 PM Scheduled Provider:Michael Holley MD Location:[facility] Appointment Type: Open Appointment Date:02/27/2024 03:00:00 PM Scheduled Provider:Roshan BRAUN MD Location:[facility] Appointment Type: Established 15 Future Scheduled Tests Laboratory* Lipid Panel 09/07/23 Radiology* US Breast Unilateral Lt Complete 03/27/23 * US Breast Unilateral Rt Complete 03/27/23 * MA Mamm Diag w/CAD if perf and 3D Manny 09/20/23 [facility] evaluation + Plan note Future Appointments Appointment Date:05/21/2024 02:00:00 PM Scheduled Provider:Michael Holley MD Location:[facility] Appointment Type: Open Future Scheduled Tests Laboratory* Lipid Panel 09/07/23 Radiology* US Breast Unilateral Lt Complete 03/27/23 * US Breast Unilateral Rt Complete 03/27/23 * MA Mamm Diag w/CAD if perf and 3D Manny 09/20/23 [facility] evaluation + Plan note Future Appointments Appointment Date:05/21/2024 02:00:00 PM Scheduled Provider:Michael Holley MD Location:[facility] Appointment Type: Open Future Scheduled Tests Laboratory* Lipid Panel 09/07/23 Radiology* MA Mamm Diag w/CAD if perf and 3D Manny 09/20/23 [facility] evaluation + Plan note Future Appointments Appointment Date:05/16/2024 09:00:00 AM Scheduled Provider: [facility] Type:NM Lymphoscintigraphy (FT) Appointment Date:05/16/2024 10:30:00 AM Scheduled Provider: Location:[facility] Surgical Services Appointment Type:Surgery FT Appointment Date:05/21/2024 02:00:00 PM Scheduled Provider:Michael Holley MD Location:[facility] Appointment Type: Open Future Scheduled Tests Laboratory* Lipid Panel 09/07/23 Radiology* NM Lymphoscintigraphy 05/16/24 * MA Mamm Diag w/CAD if perf and 3D Manny 09/20/[address] [facility] evalunacgo + Plan note Future Appointments Appointment Date:07/09/2024 01:30:00 PM Scheduled Provider: Location:[facility] Surgical Services Appointment Type:Surgical PAT FT Appointment Date:07/22/2024 08:00:00 AM Scheduled Provider: Location:[facility] Surgical Services Appointment Type:Surgery FT Appointment Date:08/06/2024 01:15:00 PM Scheduled Provider:Michael Holley MD Location:[facility] Appointment Type: Open Appointment Date:06/16/2025 01:00:00 PM Scheduled Provider: Location:[facility] Appointment Type:FM Medicare Wellness Subsequent Future Scheduled Tests Laboratory* Lipid Panel 09/07/23 Radiology* MA Mamm Diag w/CAD if perf and 3D Manny 09/20/23 [facility] evaluation + Plan note Future Appointments Appointment Date:07/22/2024 08:00:00 AM Scheduled Provider: Location:[facility] Surgical Services Appointment Type:Surgery FT Appointment Date:08/06/2024 01:15:00 PM Scheduled Provider:Michael Holley MD Location:[facility] Appointment Type: Open Appointment Date:06/16/2025 01:00:00 PM Scheduled Provider: Location:[facility] Appointment Type: Medicare Wellness Subsequent Future Scheduled Tests Laboratory* Lipid Panel 09/07/23 Radiology* MA Mamm Diag w/CAD if perf and 3D Manny 09/20/[address] [facility] evaluation + Plan note Future Appointments Appointment Date:08/06/2024 01:15:00 PM Scheduled Provider:Michael Holley MD Location:[facility] Appointment Type: Open Appointment Date:08/06/2024 02:20:00 PM Scheduled Provider:Roshan BRAUN MD Location:[facility] Appointment Type: Post Op 15 Appointment Date:06/16/2025 01:00:00 PM Scheduled Provider: Location:[facility] Appointment Type: Medicare Wellness Subsequent Future Scheduled Tests Laboratory* Lipid Panel 09/07/23 Radiology* MA Mamm Diag w/CAD if perf and 3D Manny 09/20/[address] [facility] evaluation + Plan note Future Appointments Appointment Date:11/05/2024 01:00:00 PM Scheduled Provider:Michael Holley MD Location:[facility] Appointment Type: Open Appointment Date:06/16/2025 01:00:00 PM Scheduled Provider: Location:[facility] Appointment Type: Medicare Wellness Subsequent Future Scheduled Tests Laboratory* Lipid Panel 09/07/23 Radiology* MA Mamm Diag w/CAD if perf and 3D Manny 09/20/23 [facility] [place] evaluation + Plan note Future Appointments Appointment Date:06/11/2024 02:30:00 PM Scheduled Provider: Location:[facility] Appointment Type: Medicare Wellness Initial Appointment Date:06/11/2024 03:30:00 PM Scheduled Provider:Michael Holley MD Location:[facility] Appointment Type: Open Future Scheduled Tests Laboratory* Lipid Panel 09/07/23 Radiology* MA Mamm Diag w/CAD if perf and 3D Manny 09/20/23 [facility] Future Appointments Appointment Date:06/30/2025 01:20:00 PM Scheduled Provider: Location:[facility] Appointment Type: Lab Draw Appointment Date:06/17/2026 02:30:00 PM Scheduled Provider: Location:[facility] Appointment Type: Medicare Wellness Subsequent Future Scheduled Tests Laboratory* [facility] information available [facility] Work Phone: evalurcwul note* Diagnosis Onset Date Resolution Status Breast cancer, left acuteEncounter for screening for osteoporosisacute [facility] Work Phone: History and physical note Author Joe Garcia [facility] HospitalNote Date/TimeJanuary 2024 4:55pm [place] [address] Hospitalist H&P Signed Patient: Adelina Mir MR#: [id number] : 1960 Acct:[id number] Age/Sex: 63 / F Adm Date: 5 Loc: Room: [address] [place] [address] Type: ADM IN Attending Dr: Joe Garcia [...] except as mentioned elsewhere in the documentation [facility] Medical History Osteopenia Encounter for screening for [...] % (Auto) 3.2 % (.) 09/17/24 13:00 Mcmullen % (Auto) 23.5 % (.) 09/17/24 13:00 Eos % (Auto) 0.1 % (.) 09/17/24 13:00 Baso % (Auto) 0.0 % (.) 09/17/24 13:00 Nucleat RBC Rel Count 0.2 /100 WBC (0-0.5) 09/17/24 13:00 Neut # (Auto) 3.5 x10E3/uL (1.8-7.7) 09/17/24 13:00 Lymph # (Auto) 0.2 x10E3/uL (1.00-4.8) L 09/17/24 13:00 [place]mullen # (Auto) 1.1 x10E3/uL (0.0-0.8) H 09/17/24 [...] pH 5.5 (5.0-9.0) 09/17/24 13:43 Ur Specific [place] 1.015 (1.001-1.030) 09/17/24 13:43 Urine Protein 50 [...] <Electronically signed by Joe Garcia MD> 09/17/24 9138 [facility] Work Phone: Hospital course Narrative No data available for this section [facility] Discharge instructions No data available for this section [facility] Discharge instructions Additional Instructions DISCHARGE INSTRUCTIONS [...] the incision. PLEASE NOTIFY OUR OFFICE at [phone] if you: -Develop a fever of 101 [...] rate. FOLLOW UP -Call the office at [phone] for a follow up appointment 1 week. * AFTER HOURS PHONE NUMBER [phone] *[facility] Work Phone: Progress note No data available for this section [facility] Author Kush Glez [facility] May 30, 2024 3:05pmNote Date/TimeSeptember 2023 1:59pm[facility] [place] [address] Cancer Center Note Signed Patient: Adelina Mir MR#: [id number] : 1960 Acct:[id number] Age/Sex: 63 / F Type: REG AMB Date of Service: 05/30/24 Copies to: Michael Holley MD~ Assessment & Plan A/P (1) Breast cancer, left: (2) Encounter for screening for osteoporosis: Plan Based on the biopsy done on 01/10/2024 it reveals pT1c, pNX, ER positive, SC positive, HER2/pat negative (1+), no DCIS, tumor [...] skin sparing with immediate reconstruction with tissue director of corporate sponsorships by Dr. Bustamante. Surgical path from surgery [...] extension is present. ER positive over 90%, SC +80%, HER2 negative (1+), Ki-67 3% Treatment [...] insurance. She had an echocardiogram at [facility] we will obtain the report. I asked [...] invasive ductal carcinoma grade 2, ER positive, SC positive, HER2/pat negative 1+, 1.7 cm at [...] Lymphovascular Invasion. Breast Hormone Profile ER: Positive SC: Positive HER2/pat by immunostain: Negative (1+) CAP [...] left breast cancer that is ER positive SC positive and HER2/pat negative but nolymph nodes [...] skin sparing with immediate reconstruction with tissue director of corporate sponsorships by Dr. Bustamante. Surgical path from surgery [...] extension is present. ER positive over 90%, SC +80%, HER2 negative (1+), Ki-67 3% 14 [...] treatment education bag and all contents including My cancer treatmentguide, signs and symptoms sheet, yellow fever card, magnet, caregiver resource list, [facility] nutrition guide, and cancer rehabilitation pamphlet provided anddiscussed with patient. Patient also provided with copy of consent, doctors business card, and clinic contact information. Printed drug information also provided and discussed with patient. All questions were answered to patient?s satisfaction and patient verbalizes understanding. Patient is here for a follow up after surgery. Had surgery 05/16/24. [facility] Medical History Medical History (Updated 02/08/24 @ [...] Display Dictated By: Kush Glez MD DD/ [id number] Signed By: <Electronically signed by Kush Glez MD> 05/30/24 7038 [facility] Work Phone: Progress note Author Elda Hurtado [facility] HospitalNote Date/TimeJanuary 2024 6:40[place] [address] Palliative Medicine Encounter Patient: Adelina Mir MR#: [id number] : 1960 Acct:[id number] Age/Sex: 63 / F Copies to: SOLA [...] tablet tabs Is patient having pain?: Yes [facility] Medical History (Updated 09/05/24 @ 11:08 by [...] Substance Abuse Comment: cassie marijuana - 06/03/2024 [place] Symptom Assessment Scale Pain: left leg pain, [...] recorder, note dictated by Elda Hurtado APRN, ANIMAL CONTROL SUPERVISOR-C Dictated By: Elda Hurtado APRN DD/ [id number] Signed By: <Electronically signed by SOLA Hurtado> 09/06/24 1840 [facility] Work Phone: Progress note Author Cynthia Clayton [facility] HospitalNote Date/TimeJanuary 2024 12:[address] [place] [address] [place] [address] Cancer Center Note Signed Patient: Adelina Mir MR#: [id number] : 1960 Acct:[id number] Age/Sex: 63 / F Type: REG AMB Date of Service: 09/17/24 Copies to: Michael Holley MD~ Assessment & Plan A/P (1) Breast cancer, left: (2) Osteopenia: Plan Based on the biopsy done on 01/10/2024 it reveals pT1c, pNX, ER positive, SC positive, HER2/pat negative (1+), no DCIS, tumor [...] skin sparing with immediate reconstruction with tissue director of corporate sponsorships by Dr. Bustamante. Surgical path from surgery [...] extension is present. ER positive over 90%, SC +80%, HER2 negative (1+), Ki-67 3% Treatment [...] invasive ductal carcinoma grade 2, ER positive, SC positive, HER2/pat negative 1+, 1.7 cm at [...] Lymphovascular Invasion. Breast Hormone Profile ER: Positive SC: Positive HER2/pat by immunostain: Negative (1+) CAP [...] left breast cancer that is ER positive SC positive and HER2/pat negative but nolymph nodes [...] skin sparing with immediate reconstruction with tissue director of corporate sponsorships by Dr. Bustamante. Surgical path from surgery [...] extension is present. ER positive over 90%, SC +80%, HER2 negative (1+), Ki-67 3% 07/31/24: [...] came up to as high as 95%. ANIMAL CONTROL SUPERVISOR Terra Demboskenotified of low BP and SpO2. [facility] Medical History Medical History (Updated 09/05/24 @ [...] 1126 Signed By: <Electronically signed by SOLA Cynthia Clayton> 09/17/24 1231 [facility] Work Phone: Progress note Author Kush Glez [facility] HospitalNote Date/TimeJanuary 2024 3:18pm [facility] [place] [address] Cancer Center Note Signed Patient: Adelina Mir MR#: [id number] : 1960 Acct:[id number] Age/Sex: 64 / F Type: REG AMB Date of Service: 10/03/24 Copies to: Michael Holley MD~ Assessment & Plan A/P (1) Breast cancer, left: (2) Osteopenia: Plan Based on the biopsy done on 01/10/2024 it reveals pT1c, pNX, ER positive, SC positive, HER2/pat negative (1+), no DCIS, tumor [...] skin sparing with immediate reconstruction with tissue director of corporate sponsorships by Dr. Bustamante. Surgical path from surgery [...] extension is present. ER positive over 90%, SC +80%, HER2 negative (1+), Ki-67 3% Treatment [...] invasive ductal carcinoma grade 2, ER positive, SC positive, HER2/pat negative 1+, 1.7 cm at [...] Lymphovascular Invasion. Breast Hormone Profile ER: Positive SC: Positive HER2/pat by immunostain: Negative (1+) CAP [...] left breast cancer that is ER positive SC positive and HER2/pat negative but nolymph nodes [...] skin sparing with immediate reconstruction with tissue director of corporate sponsorships by Dr. Bustamante. Surgical path from surgery [...] extension is present. ER positive over 90%, SC +80%, HER2 negative (1+), Ki-67 3% 07/31/24: [...] review. States she is feeling much better. [facility] Medical History Medical History Osteopenia Encounter for [...] 14:08 10/03/24 Sodium 137 mmol/L (136-145) 10/03/24 14:10/03/24 Potassium 4.2 mmol/L (3.5-5.1) 10/03/24 14:08 10/03/24 [...] No Dictated By: Kush Glez MD DD/ [id number] Signed By: <Electronically signed by Kush Glez MD> 10/03/24 9036 [facility] Work Phone: Progress note Author Kush Glez [facility] HospitalNote Date/TimeApril 2024 11:12[facility] [place] [address] Cancer Center Note Signed Patient: Adelina Mir MR#: [id number] : 1960 Acct:[id number] Age/Sex: 64 / F Type: REG AMB Date of Service: 12/11/24 Copies to: Michael Holley MD~ Assessment & Plan A/P (1) Breast cancer, left: (2) Osteopenia: Plan Based on the biopsy done on 01/10/2024 it reveals pT1c, pNX, ER positive, SC positive, HER2/pat negative (1+), no DCIS, tumor [...] skin sparing with immediate reconstruction with tissue director of corporate sponsorships by Dr. Bustamante. Surgical path from surgery [...] extension is present. ER positive over 90%, SC +80%, HER2 negative (1+), Ki-67 3% Treatment [...] invasive ductal carcinoma grade 2, ER positive, SC positive, HER2/pat negative 1+, 1.7 cm at [...] Lymphovascular Invasion. Breast Hormone Profile ER: Positive SC: Positive HER2/pat by immunostain: Negative (1+) CAP [...] left breast cancer that is ER positive SC positive and HER2/pat negative but nolymph nodes [...] skin sparing with immediate reconstruction with tissue director of corporate sponsorships by Dr. Bustamante. Surgical path from surgery [...] extension is present. ER positive over 90%, SC +80%, HER2 negative (1+), Ki-67 3% 07/31/24: She is here for 1 week toxicity check after cycle 1 of dose dense AC obtained orgparrish on 07/24/2024. She tolerated C1 without any [...] labs for review, prior to treatment today. [facility] History Attestation statement: The following information was [...] RESULTS Corrected WBC 4.3 X10E3/uL (3.8-11.6) 12/10/24 14:00 5 Hgb 10.6 g/dL (11.8-15.4) L 12/10/24 14:00 5 Hct 31.2 % (34.0-46.4) L 12/10/24 14:00 12/10/24 MCV 103.0 fl (80-100) H 12/10/24 14:12/10/24 [...] 12/10/24 14:12/10/24 Calcium 9.8 mg/dL (8.6-10.3) 12/10/24 14:12/10/24 Total Bilirubin 0.3 mg/dl (0.3-1.0) 12/10/24 14:12/10/24 AST 20 U/L (13-39) 12/10/24 14:12/10/24 ALT 12 U/L (7-52) 12/10/24 14:12/10/24 Alkaline Phosphatase 57 U/L (34-104) 12/10/24 14:00 [...] <Electronically signed by Kush Glez MD> 12/11/[address] [place] [address] Work Phone: Progress note Author Elda Hurtado [facility] HospitalNote Date/TimeApril 2024 4:54[place] [address] Palliative Medicine Encounter Patient: Adelina Mir MR#: [id number] : 1960 Acct:[id number] Age/Sex: 64 / F Copies to: SOLA [...] tab PO Q4-6H PRN pain 30 days 12/19/25 mg tablet #150 tabs Is patient having [...] and Marijuana Substance Abuse Comment: marijuana medical [place] Symptom Assessment Scale Pain: bilateral feet pain, [...] recorder, note dictated by Elda Hurtado APRN, ANIMAL CONTROL SUPERVISOR-C ACHPN Dictated By: Elda Hurtado APRN DD/ [id number] Signed By: <Electronically signed by SOLA Hurtado> 12/23/24 1654 [facility] Work Phone: Progress note Author Kush Glez [facility] HospitalNote Date/TimeApril 2024 10:12[facility] [place] [address] Cancer Center Note Signed Patient: Adelina Mir MR#: [id number] : 1960 Acct:[id number] Age/Sex: 64 / F Type: REG AMB Date of Service: 01/01/25 Copies to: Michael Holley MD~ Assessment & Plan A/P (1) Breast cancer, left: (2) Osteopenia: Plan Based on the biopsy done on 01/10/2024 it reveals pT1c, pNX, ER positive, SC positive, HER2/pat negative (1+), no DCIS, tumor [...] skin sparing with immediate reconstruction with tissue director of corporate sponsorships by Dr. Bustamante. Surgical path from surgery [...] extension is present. ER positive over 90%, SC +80%, HER2 negative (1+), Ki-67 3% Treatment [...] invasive ductal carcinoma grade 2, ER positive, SC positive, HER2/pat negative 1+, 1.7 cm at [...] Lymphovascular Invasion. Breast Hormone Profile ER: Positive SC: Positive HER2/pat by immunostain: Negative (1+) CAP [...] left breast cancer that is ER positive SC positive and HER2/pat negative but nolymph nodes [...] skin sparing with immediate reconstruction with tissue director of corporate sponsorships by Dr. Bustamante. Surgical path from surgery [...] extension is present. ER positive over 90%, SC +80%, HER2 negative (1+), Ki-67 3% 07/31/24: [...] Scheduled to meet with Dr Elizabeth 02/04/2025. [facility] Medical History Medical History Breast cancer, left [...] signed by Kush Glez MD> 01/01/25 1012 [facility] Work Phone: Progress note Author Linnette Elizabeth [facility] HospitalNote Date/TimeJune 2024 11:30[facility] [place] [address] Cancer Center Note Signed Patient: Adelina Mir MR#: [id number] : 1960 Acct:[id number] Age/Sex: 64 / F Type: REG AMB Date of Service: 02/04/25 Copies to: MD Roshan Ballard MD FACS Samuel E Ross MD~ Assessment & Plan (1) Breast cancer, left: Plan: CT simulation-DIBH for cardiac sparing, postmastectomy radiation 42.5 Fraser in 16fractions delivereddaily Assessment: 64-year-old female with [id number] invasive ductal carcinoma of the left breast, ER/SC positive HER2 negative. She is status post [...] nipple uninvolved by DCIS or invasive carcinoma. [place] lymph node biopsy showed 3 of 8 [...] and lateral surgical margins. Negative for LVSI. ER/SC positive, HER2 negative. Final pathology pT1c NX [...] nipple uninvolved by DCIS or invasive carcinoma. [place] lymphnode biopsy showed 3 of 8 lymph [...] Fall Precaution Measures Taken: Patient in chair [facility] Medical History Medical History Breast cancer, left [...] No Dictated By: Linnette Elizabeth MD DD/ [id number] Signed By: <Electronically signed by Linnette Elizabeth MD> 02/04/25 1130 [facility] Work Phone: Progress note Author Kush Glez [facility] HospitalNote Date/TimeAugust 2024 12:13pm [facility] [place] [address] Cancer Center Note Signed Patient: Adelina Mir MR#: [id number] : 1960 Acct:[id number] Age/Sex: 64 / F Type: REG AMB Date of Service: 04/23/25 Copies to: Michael Holley MD~ Assessment & Plan A/P (1) Breast cancer, left: (2) Osteopenia: Plan Based on the biopsy done on 01/10/2024 it reveals pT1c, pNX, ER positive, SC positive, HER2/pat negative (1+), no DCIS, tumor [...] skin sparing with immediate reconstruction with tissue director of corporate sponsorships by Dr. Bustamante. Surgical path from surgery [...] extension is present. ER positive over 90%, SC +80%, HER2 negative (1+), Ki-67 3% Treatment [...] history. Asked her to try the magnesium [id number] once daily for the licorice for couple [...] invasive ductal carcinoma grade 2, ER positive, SC positive, HER2/pat negative 1+, 1.7 cm at [...] Lymphovascular Invasion. Breast Hormone Profile ER: Positive SC: Positive HER2/pat by immunostain: Negative (1+) CAP [...] left breast cancer that is ER positive SC positive and HER2/pat negative but nolymph nodes [...] skin sparing with immediate reconstruction with tissue director of corporate sponsorships by Dr. Bustamante. Surgical path from surgery [...] extension is present. ER positive over 90%, SC +80%, HER2 negative (1+), Ki-67 3% 07/31/24: [...] No concerns voiced at time of intake. [facility] Medical History Medical History Breast cancer, left [...] signed by Kush Glez MD> 04/23/25 1213 [facility] Work Phone: Reason for referral (narrative) Referred by: Roshan BRAUN MD Referred by: Roshan BRAUN MD [facility] Reason for referral (narrative)No reason for referral information available[facility] Work Phone: Summary Purpose Family History No Family History Records Found Relationship Condition Age at Onset Recorded Date/T thony family member Malignant neoplasm of breast Unknown Advance Directives No Advanced Directives Records Found Advance Directive Response Recorded Date/ Time Advance Directives No February 04 1:52pm Advance Directive Response Recorded Date/ Time [...] 2024 2:47pm Immunosuppressed due to chemotherapy Royal uary 2024 2:47pm Osteopenia September 17, 2024 2 [...] section and content) DATE CREATED AUTHOR 09/08/2021 [facility] DATE CREATED AUTHOR AUTHOR'S ORGANIZ ATROBINSON 05/01/2024 [facility] DATE CREATED AUTHOR AUTHOR'S ORGANIZ ATION 05/19/2024 [facility] DATE CREATED AUTHOR AUTHOR'S ORGANIZ ATION 05/23/2024 [facility] DATE CREATED AUTHOR AUTHOR'S ORGANIZ ATION 05/26/2024 [facility] DATE CREATED AUTHOR AUTHOR'S ORGANIZ ATION 05/29/2024 [facility] DATE CREATED AUTHOR AUTHOR'S ORGANIZ ATION 06/06/2024 [facility] DATE CREATED AUTHOR AUTHOR'S ORGANIZ ATION 06/21/2024 [facility] DATE CREATED AUTHOR AUTHOR'S ORGANIZ ATION 07/04/2024 [facility] DATE CREATED AUTHOR AUTHOR'S ORGANIZ ATION 07/11/2024 [facility] DATE CREATED AUTHOR AUTHOR'S ORGANIZ ATION 07/23/2024 [facility] DATE CREATED AUTHOR AUTHOR'S ORGANIZ ATION 08/01/2024 [facility] DATE CREATED AUTHOR AUTHOR'S ORGANIZ ATION 05/02/2025 [facility] DATE CREATED AUTHOR AUTHOR'S ORGANIZ ATION 06/17/2025 [facility] DATE CREATED AUTHOR AUTHOR'S ORGANIZ ATION 07/04/2025 [facility] DATE CREATED AUTHOR AUTHOR'S ORGANIZ ATION 07/16/2025 [facility] Patient Care team informatio n (unrecognized section [...] tart: February 08, 2024 End: February 08, 2024Mhtara Glez MDAttending ProviderActiveStart: February 08, 2024 End: February 08, 2024Roshan Braun MD FACSReferring ProviderActiveStart: February 08, 2024 End: February 08, 2024 Team Status: Active Member Role Status Dates Michael Holley MD Primary Care Provider Active Start: February 13, 2024 tara Glez MDAttending ProviderActiveStart: February 13, 2024 Roshan Braun MD FACSReferring ProviderActiveStart: February 13, 2024 Team Status: Inactive Member Role Status Dates Michael Holley MD Primary Care Provider Active Start: February 20, 2024 End: February 20, 2024Roshan Braun MD FACSAttending ProviderActiveStart: February 20, 2024 End: February 20, 2024 Team Status: Inactive Member Role Status Dates Michael Holley MD Primary Care Provider Active Start: May 30, 2024 End: May 30, 2024tara Glez MDAttending ProviderActiveStart: May 30, 2024 End: May 30, 2024 Team Status: Active Member Role Status Dates Michael Holley MD Primary Care Provider Active Start: May 30, 2024 tara Glez , MDAttending ProviderActiveStart: May 30, 2024 Roshan Braun MD FACSReferring ProviderActiveStart: May 30, 2024 Team Status: Inactive Member Role Status Dates Michael Holley MD Primary Care Provider Active Start: June 05, 2024 End: June 05, 2024[facility] MDAttending ProviderActiveStart: June 05, 2024 End: June 05, 2024 Team Status: Inactive Member Role Status Dates Michael Holley MD Primary Care Provider Active Start: July 31, 2024 End: July 31, 2024tara Glez MDAttending ProviderActiveStart: July 31, 2024 End: July 31, 2024 Team Status: Inactive Member Role Status Dates Michael Holley MD Primary Care Provider Active Start: August 21, 2024 End: August 21, 2024tara Glez MDAttending ProviderActiveStart: August 21, 2024 End: August 21, 2024 Team Status: Inactive Member Role Status Dates Michael Holley MD Primary Care Provider Active Start: August 22, 2024 End: August 22, 2024Elda Hurtado GENEVIEVENAtednaenrique ProviderActiveStart: August 22, 2024 End: August 22, 2024 Team Status: Inactive Member Role Status Dates Michael Holley MD Primary Care Provider Active Start: September 03, 2024 End: September 03, 2024Cynthia Clayton APRNAtemilia ProviderActive Start: September 03, 2024 End: September 03, 2024 Team Status: Inactive Member Role Status Dates Michael Holley MD Primary Care Provider Active Start: September 05, 2024 End: September 05, 2024Elda Hurtado APRNAtemilia ProviderActiveStart: September 05, 2024 End: September 05, 2024 Team Status: Active Member Role Status Dates Michael Holley MD Primary Care Provider Active Start: September 05, 2024 Kush Glez MDAttjoanne ProviderActiveStart: September 05, 2024 Roshan Braun MD FACSReferring ProviderActiveStart: September 05, 2024 Team Status: Inactive Member Role Status Dates Michael Holley MD Primary Care Provider Active Start: September 17, 2024 End: September 17, 2024Guido Wilson ProviderActive Start: September 17, 2024 End: September 17, 2024 Team Status: Active Member Role Status Dates Michael Holley MD Primary Care Provider Active Start: September 17, 2024 Mode Ellsworth , DOEmergenlevi ProviderActiveStart: September 17, 2024 Joe Garcia MDAdmit Provider, Attending ProviderActiveStart: September 17, 2024 Team Status: Inactive Member Role Status Dates Michael Holley MD Primary Care Provider Active Start: September 17, 2024 End: September 25, 2024Mode Ellsworth , DOEmergency ProviderActiveStart: September 17, 2024 End: September 25, 2024Joe Garcia MDAdmit Provider, Attending Provider ActiveStart: September 17, 2024 End: September 25, 2024Roshan Reynoso MDOther ProviderActiveStart: September 17, 2024 End: September 25brain Simpson MDOther ProviderActiveStart: September 17, 2024 End: September 25, 2024Frank Paez II, DOOther ProviderActiveStart: September 17, 2024 End: September 25, 2024Raisa Enriquez MDOther ProviderActiveStart: September 17, 2024 End: September 25Elizabeth Almendarez ProviderActiveStart: September 17, 2024 End: September 25, 2024Tiff DemarcusOther ProviderActiveStart: September 17, 2024 End: September 25, 2024Cynthia Clayton APRNOther ProviderActiveStart: September 17, 2024 End: September 25, 2024Elda William ProviderActiveStart: September 17, 2024 End: September 25, 2024Danielle PerdomoOther ProviderActiveStart: September 17, 2024 End: September 25, 2024Elizabeth Ballard ProviderActiveStart: September 17, 2024 End: September 25, 2024Vernell Pierce APRNOther ProviderActiveStart: September 17, 2024 End: September 25, 2024Emmartine JerodcalvinOther ProviderActiveStart: September 17, 2024 End: September 25, 2024Elizabeth Omalley ProviderActiveStart: September 17, 2024 End: 2024 Team Status: Active Member Role Status Dates Michael Holley MD Primary Care Provider Active Start: September 18, 2024 Espinoza Hui ProviderActiveStart: September 18, 2024 Joshua Herrmannit Provider, Other ProviderActiveStart: September 18, 2024 Halley Bro Provider, Other ProviderActiveStart: September 18, 2024 Team Status: Active Member Role Status Dates Michael Holley MD Primary Care Provider Active Start: 2024 Espinoza Hui ProviderActiveStart: 2024 Negra Herrmann Provider, Other ProviderActiveStart: 2024 Halley Bro Provider, Other ProviderActiveStart: 2024 Elizabeth Barakat ProviderActiveStart: 2024 Frank Paez II, DOOther ProviderActiveStart: 2024 Raisa Enriquez MDOther ProviderActiveStart: 2024 Dorothy Bone MDOther ProviderActiveStart: 2024 Tiff DemarcusOther ProviderActiveStart: 2024 Shania Demboske , APRNOther ProviderActiveStart: 2024 Elda Williamher ProviderActiveStart: 2024 Danielledada PerdomoOther ProviderActiveStart: 2024 Kush Glez MDOther ProviderActiveStart: 2024 Vernell Pierce , APRNOther ProviderActiveStart: 2024 Kami JaneOther ProviderActiveStart: 2024 Jair Weber MDOther ProviderActiveStart: 2024 Team MemberRelationshipSpecialtyStart DateEnd Date Estela Krishnan MD [address] [place] [address] PCP - [facility]02/12/24 Team Status: Inactive Member Role Status Dates Michael Holley MD Primary Care Provider Active Start: September 17, 2024 End: September 25, 2024PaEspinoza Quiroz ProviderActiveStart: September 17, 2024 End: September 25, [...] ProviderActiveStart: September 17, 2024 End: September 25, 2024Joselyn Wilson ProviderActiveStart: September 17, 2024 End: September 25, 2024Elda EarlyolnOt ProviderActiveStart: September 17, 2024 End: September 25, 2024Danielle MeltonetzOther ProviderActiveStart: September 17, 2024 End: September 25, 2024Elizabeth Ballard ProviderActiveStart: September 17, 2024 End: September 25, 2024Joselyn Torres ProviderActiveStart: September 17, 2024 End: September 25, 2024Kami MoodyOther ProviderActiveStart: September 17, 2024 End: September 25, 2024Elizabeth Omalley ProviderActiveStart: September 17, 2024 End: 2024 Team Status: Active Member Role Status Dates Michael Holley MD Primary Care Provider Active Start: 2024 Mode Ellsworth , DOEmergency ProviderActiveStart: 2024 Joe Garcia MDAdmit Provider, Other ProviderActiveStart: 2024 Roshan Reynoso MDAttending Provider, Other ProviderActiveStart: 2024 Josseline Simpson MDOther ProviderActiveStart: 2024 Frank Paez II, DOOther ProviderActiveStart: 2024 Elizabeth Boyle ProviderActiveStart: 2024 Elizabeth Ryan ProviderActiveStart: 2024 Tiff TracyOther ProviderActiveStart: 2024 Karol Wilsonher ProviderActiveStart: 2024 Elda William ProviderActiveStart: 2024 Danielle SomersOther ProviderActiveStart: 2024 Elizabeth Ballard ProviderActiveStart: 2024 Vernell Pierce , APRNOther ProviderActiveStart: 2024 Kami Brown HeidyOther ProviderActiveStart: 2024 Jair Weber MDOther ProviderActiveStart: 2024 Team Status: Active Member Role Status Dates Michael Holley MD Primary Care Provider Active Start: October 03, 2024 d Derek Al-Iselaraomero , MDAttending ProviderActiveStart: October 03, 2024 Roshan Braun MD FACSReferring ProviderActiveStart: October 03, 2024 Team Status: Inactive Member Role Status Dates Michael Holley MD Primary Care Provider Active Start: October 03, 2024 End: October 03, 2024d Yaser Al-Marraomero , MDAttending ProviderActiveStart: October 03, 2024 End: October 03, 2024 Team Status: Inactive Member Role Status Dates Michael Holley MD Primary Care Provider Active Start: October 07, 2024 End: October 07, 2024Miceddie Reynoso , MDAttending ProviderActiveStart: October 07, 2024 End: October 07, 2024 Team Status: Active Member Role Status Dates Michael Holley MD Primary Care Provider Active Start: August 22, 2024 Elda Hurtado , APRNAttending Provider, Other ProviderActiveStart: August 22, 2024 Team Status: Active Member Role Status Taz Holley MD Primary Care Provider Active Start: September 05, 2024 Elda Hurtado , APRNAttending Provider, Other ProviderActiveStart: September 05, 2024 Team Status: Inactive Member Role Status Taz Holley MD Primary Care Provider Active Start: October 16, 2024 End: October 16, 2024d Opalser Ilana-Marraomero , MDAttending ProviderActiveStart: October 16, 2024 End: October 16, 2024 Team Status: Active Member Role Status Taz Holley MD Primary Care Provider Active Start: October 16, 2024 d Yaser Al-Marraomero , MDAttending ProviderActiveStart: October 16, 2024 Roshan Braun MD FACSReferring ProviderActiveStart: October 16, 2024 Team Status: Inactive Member Role Status Dates Michael Holley MD Primary Care Provider Active Start: October 17, 2024 End: October 17, 2024Michael Blank , MDAttending ProviderActiveStart: October 17, 2024 End: October 17, 2024 Team Status: Inactive Member Role Status Taz Holley MD Primary Care Provider Active Start: October 17, 2024 End: October 17, 2024Elda Hurtado APRNAttenenrique ProviderActiveStart: October 17, 2024 End: October 17, 2024 Team Status: Active Member Role Status Taz Holley MD Primary Care Provider Active Start: October 30, 2024 Elda Hurtado APRNAttenenrique ProviderActiveStart: October 30, 2024 Team Status: Inactive Member Role Status Taz Holley MD Primary Care Provider Active Start: October 30, 2024 End: October 30, 2024Mhd Derek Bales-Nhung , MDAttending ProviderActiveStart: October 30, 2024 End: October 30, 2024 Team Status: Active Member Role Status Taz Holley MD Primary Care Provider Active Start: October 30, 2024 d Derek Bales-Nhung , MDAttending ProviderActiveStart: October 30, 2024 Roshan Braun MD FACSReferring ProviderActiveStart: October 30, 2024 Team Status: Inactive Member Role Status Taz Holley MD Primary Care Provider Active Start: October 30, 2024 End: October 30, 2024Elda Hurtado APRNAttenenrique ProviderActiveStart: October 30, 2024 End: October 30, 2024 Team Status: Active Member Role Status Taz Holley MD Primary Care Provider Active Start: October 30, 2024 Elda Hurtado APRNAttenenrique Provider, Other ProviderActiveStart: October 30, 2024 Team Status: Inactive Member Role Status Taz Holley MD Primary Care Provider Active Start: November 04, 2024 End: November 04, 2024Michael Blank , MDAttending ProviderActiveStart: November 04, 2024 End: November 04, 2024 Team Status: Active Member Role Status Taz Holley MD Primary Care Provider Active Start: November 04, 2024 Mhd Derek Bales-Nhung , MDAttending ProviderActiveStart: November 04, 2024 Roshan Braun MD FACSReferring ProviderActiveStart: November 04, 2024 Team Status: Inactive Member Role Status Taz Holley MD Primary Care Provider Active Start: November 27, 2024 End: November 27, 2024Elda Hurtado , APRNAttenenrique ProviderActiveStart: November 27, 2024 End: November 27, 2024 Team Status: Active Member Role Status Taz Holley MD Primary Care Provider Active Start: November 27, 2024 Mhd Derek Bales-Nhung , MDAttending ProviderActiveStart: November 27, 2024 Roshan Braun MD FACSReferring ProviderActiveStart: November 27, 2024 Team Status: Active Member Role Status Taz Holley MD Primary Care Provider Active Start: November 27, 2024 Elda Hurtado APRNAttenenrique Provider, Other ProviderActiveStart: November 27, 2024 Team Status: Inactive Member Role Status Taz Holley MD Primary Care Provider Active Start: December 11, 2024 End: December 11, 2024d Derek Bales-Nhung , MDAttending ProviderActiveStart: December 11, 2024 End: December 11, 2024 Team Status: Active Member Role Status Taz Holley MD Primary Care Provider Active Start: December 11, 2024 Mhtara Bales-Nhung , MDAttending ProviderActiveStart: December 11, 2024 Roshan Braun MD FACSReferring ProviderActiveStart: December 11, 2024 Team Status: Inactive Member Role Status Taz Holley MD Primary Care Provider Active Start: December 19, 2024 End: December 19, 2024Elda Hurtado APRNAttenenrique ProviderActiveStart: December 19, 2024 End: December 19, 2024 Team Status: Active Member Role Status Taz Holley MD Primary Care Provider Active Start: December 19, 2024 Mhd Derek Bales-Nhung , MDAttending ProviderActiveStart: December 19, 2024 Roshan Braun MD FACSReferring ProviderActiveStart: December 19, 2024 Team Status: Active Member Role Status Dates Michael Holley MD Primary Care Provider Active Start: December 19, 2024 Guido Wilcox, Other ProviderActiveStart: December 19, 2024 Team Status: Inactive Member Role Status Dates Michael Holley MD Primary Care Provider Active Start: December 25, 2024 End: December 25, 2024[facility] ProviderActiveStart: December 25, 2024 End: December 25, 2024 Team Status: Active Member Role Status Dates Michael Holley MD Primary Care Provider Active Start: December 25, 2024 Roshan Braun MD FACSReferring ProviderActiveStart: December 25, 2024 Josseline Simpson MDActiveStart: December 25, 2024 tara Bales-Nhung , MDAttending ProviderActiveStart: December 25, 2024 Team Status: Active Member Role Status Dates Michael Holley MD Primary Care Provider Active Start: January 01, 2025 Guido Wilcox ProviderActiveStart: January 01, 2025 Team Status: Inactive [...] MD FACSReferring ProviderActiveStart: January 01, 2025 Josseline Calvin MDActiveStart: January 01, 2025 d Opalser Ilana-Nhung , MDAttending ProviderActiveStart: January 01, 2025 Team Status: Inactive Member Role Status Dates Michael Holley MD Primary Care Provider Active Start: January 01, 2025 End: January 01, 2025Guido Wilcox ProviderActiveStart: January 01, 2025 End: January 01, 2025 Team Status: Active Member Role Status Dates Michael Holley MD Primary Care Provider Active Start: January 01, 2025 Elda Hurtado GENEVIEVENAttenenrique Provider, Other ProviderActiveStart: January 01, 2025 Team [...] 04, 2025 End: February 04, 2025d Yaser Al-Marrawi , MDReferring ProviderActiveStart: February 04, 2025 End: February 04, 2025 Team Status: Active Member Role Status Dates Michael Holley MD Primary Care Provider Active Start: December 19, 2024 Elda Hurtado APRNAttenenrique ProviderActiveStart: December 19, 2024 Elda Hurtado , APRNOther ProviderActiveStart: December 19, 2024 Team Status: Active Member Role Status Dates Michael Holley MD Primary Care Provider Active Start: January 01, 2025 Elda Hurtado APRNAttenenrique ProviderActiveStart: January 01, 2025 Elda Hurtado , APRNOther ProviderActiveStart: January 01, 2025 Team Status: Active Member Role Status Dates Michael Holley MD Primary Care Provider Active Start: February 06, 2025 Roshan Braun MD FACSReferring ProviderActiveStart: February 06, 2025 Linnette Elizabeth , MDAttending ProviderActiveStart: February 06, 2025 Linnette Elizabeth MDOther ProviderActiveStart: February 06, 2025 Team Status: Active Member Role Status Dates Michael Holley MD Primary Care Provider Active Start: February 17, 2025 Roshan Braun MD FACSReferring ProviderActiveStart: February 17, 2025 Linnette Elizabeth , JOSIAHttending ProviderActiveStart: February 17, 2025 Linnette Elizabeth MDOther [...] Start: March 03, 2025 End: March 03, 2025Elda Hurtado , APRNAttenenrique ProviderActiveStart: March 03, 2025 End: March 03, 2025 Team Status: Active Member Role Status Dates Michael Holley MD Primary Care Provider Active Start: March 03, 2025 Roshan Braun MD FACSReferring ProviderActiveStart: March 03, 2025 Linnette Elizabeth , JOSIAHttending ProviderActiveStart: March 03, 2025 Elizabeth Lancaster ProviderActiveStart: March 03, 2025 Team Status: Active Member Role Status Dates Michael Holley MD Primary Care Provider Active Start: March 03, 2025 Elda Hurtado APRNAttenenrique ProviderActiveStart: March 03, 2025 Elda Hurtado APRNOther ProviderActiveStart: March 03, 2025 Team Status: Active Member Role Status Dates Michael Holley MD Primary Care Provider Active Start: March 10, 2025 Roshan Braun MD FACSReferring ProviderActiveStart: March 10, 2025 Linnette Elizabeth MDAttending ProviderActiveStart: March 10, 2025 Elizabeth Lancaster ProviderActiveStart: March 10, 2025 Team Status: Inactive Member Role Status Dates Michael Holley MD Primary Care Provider Active Start: March 25, 2025 End: March 25, 2025Cynthia Clayton APRNAttending ProviderActiveStart: March 25, 2025 End: March 25, 2025Kush Glez MDAttending ProviderActiveStart: March 25, 2025 Team Status: Inactive Member Role Status Dates Michael Holley MD Primary Care Provider Active Start: March 25, 2025 End: March 25, 2025Guido Wilson ProviderActiveStart: March 25, 2025 End: March 25, 2025 Team Status: Inactive Member Role Status Dates Michael Holley MD Primary Care Provider Active Start: April 10, 2025 End: April 10, 2025Guido Wilson ProviderActive Start: April 10, 2025 End: April 10, 2025 Team Status: Active Member Role Status Dates Michael Holley MD Primary Care Provider Active Start: April 10, 2025 Rosahn Braun MD FACSReferring ProviderActiveStart: April 10, 2025 Halley Jacobs ProviderActiveStart: April 10, 2025 Team Status: Active Member Role Status Dates Michael Holley MD Primary Care Provider Active Start: April 23, 2025 Guido Wilcox ProviderActiveStart: April 23, 2025 Team Status: Inactive Member Role Status Dates Michael Holley MD Primary Care Provider Active Start: April 23, 2025 End: April 23, 2025d Derek Glez MDAttending ProviderActiveStart: April 23, 2025 End: April 23, 2025 Team Status: Active Member Role Status Taz Holley MD Primary Care Provider Active Start: April 23, 2025 Roshan Braun MD FACSReferring ProviderActiveStart: April 23, 2025 tara Glez MDAttending ProviderActiveStart: April 23, 2025 Team [...] BE BASED ON THE PRIMARY CLINICAL RECORDS. Proviation. provides no warranty or guarantee of the accuracy or completeness of information in this document.
[2025-07-23 08:20] VITALS: BP 200/89; PULSE 65; TEMP 36.1; O2SAT 96; BMI 19.4
[2025-07-23] MEDS: BUPIVACAINE HCL 0.5% PF 50 MG/10 ML VIAL INJ (10:30)
[2025-07-23 10:51] VITALS: BP 135/69; PULSE 68; TEMP 36.3; O2SAT 94
[2025-07-23 11:06] VITALS: BP 176/74; PULSE 70; O2SAT 94
[2025-07-23 11:21] VITALS: BP 180/76; PULSE 78; O2SAT 94
== END 2025-07-23 11:21 | disposition home or self-care (01) ==
LOC: SURGOUT 08:10
PROVIDERS: Visit Provider Surgery
PROC: (CPT 36590; principal; 2025-07-23 09:20)
DX: Z45.2 Encounter for adjustment and management of vascular access device (principal); Z85.3 Personal history of malignant neoplasm of breast; I10 Essential (primary) hypertension; F41.9 Anxiety disorder, unspecified; M19.90 Unspecified osteoarthritis, unspecified site; R25.1 Tremor, unspecified; Z90.49 Acquired absence of other specified parts of digestive tract; Z90.710 Acquired absence of both cervix and uterus; Z87.891 Personal history of nicotine dependence; E78.5 Hyperlipidemia, unspecified; Z86.16 Personal history of COVID-19
CPT/HCPCS: 36590; 36415; J0665; J2003; J2250; J2371; J2704; J3010